=== PATIENT | male | born 1950 | race Caucasian/White ===

== ENCOUNTER 2017-10-12 09:15 | Outpatient (RCR) | payer MEDICARE, SELFPAY ==
[2017-09-14 01:21] VITALS: BP 108/60; BP 156/78
--- NOTE | 2017-10-14 11:30 | PCM.CR.ITP ---
Exercise - Initial Assessment - Stages of Change Stages of Change:: Action - Exercise Prescription Mode:: Treadmill, Rower, Airdyne, NuStep Angina with exercise?: No Target Heart Rate:: 108-116 - Hypertension Do any of the following apply?: Yes - Intervention Home Exercise/Activity Goal:: Moderate Exercise 30 min/day x 5 days/wk - Education Goals:: Warm-up, RPE JEREMIAS Scale, S/S, Safe Exercise, Self-Monitoring - Exercise Program Goals Exercise Program Goals: Aerobic Activity >30 min Exercise - 30-day Assessment - Stages of Change Stages of Change:: Action - Exercise Prescription Mode:: Treadmill, Airdyne, NuStep Frequency (x/week): 3 Duration:: 35 METs - Progression: 0.5-1 MET as tolerated: 3.1 Target Heart Rate:: 108-116 Max HR 113 - Intervention Home Exercise/Activity Goal:: Moderate Exercise 30 min/day x 5 days/wk - Education Goals:: Warm-up, RPE JEREMIAS Scale, S/S, Safe Exercise, Self-Monitoring - Exercise Program Goals Exercise Program Goals: Aerobic Activity >30 min Exercise - 60-Day Assessment - Visit Date of Eval: 09/11/17 - Stages of Change Stages of Change:: Action - Exercise Prescription Mode:: Treadmill, Airdyne, NuStep Frequency (x/week): 3 Duration:: 30 METs: 4.7 Target Heart Rate:: 124-131 Max HR 138 - Hypertension Medication Changes:: No - Intervention Home Exercise/Activity Goal:: Sitting Time <3 hrs/day - Education Goals:: Warm-up, RPE JEREMIAS Scale, S/S, Safe Exercise, Self-Monitoring - Exercise Program Goals Exercise Program Goals: Aerobic Activity >30 min, B/P <140/90 Exercise - 90-Day Assessment - Visit Date of Eval: 10/14/17 Session #:: 23 - Stages of Change Stages of Change:: Action - Exercise Prescription Mode:: Treadmill, Airdyne, NuStep Frequency (x/week): 3 Duration:: 30 METs: 4.7 Target Heart Rate:: 124-131 Max HR 138 - Hypertension Resting Blood Pressure:: 160/84 Peak Exercise Blood Pressure:: 160/84 Medication Changes:: No - Intervention Home Exercise/Activity Goal:: Sitting Time <3 hrs/day - Education Goals:: Warm-up, RPE JEREMIAS Scale, S/S, Safe Exercise, Self-Monitoring - Exercise Program Goals Exercise Program Goals: Aerobic Activity >30 min, B/P <140/90 Exercise - Final/Discharge - Hypertension Do any of the following apply?: Yes Nutrition - Initial Assessment - Program Goals Nutrition Program Goals: LDL <70. Total Cholesterol <200. HDL >45. Triglycerides <150. HgbA1C <7%. BMI <25 - Stages of Change Stages of Change:: Action - Lipids Total Cholesterol (mg/dL) Goal = less than 200 mg/dL: 140 - L HDL Cholesterol (mg/dL) Goal = less than 45 mg/dL: 32 - L LDL Cholesterol (mg/dL) Goal = less than 70 mg/dL: 87 - H Triglycerides (mg/dL) Goal = less than 150 mg/dL: 104 - L - Diabetes Diabetes:: Yes Hgb A1C: 10.0 - Weight Management Total Score:: 3 - Intervention Referral to dietitian:: Yes Referral to Diabetic Clinic:: Yes Will attend diet classes:: Yes - Education Gave educational materials for:: Signs & symptoms of hypoglycemia, Signs & symptoms of hyperglycemia, Relate diabetes to coronary artery disease, Healthy eating Nutrition - 30-Day Assessment - Program Goals Nutrition Program Goals: LDL <70. Total Cholesterol <200. HDL >45. Triglycerides <150. HgbA1C <7%. BMI <25 - Stages of Change Stages of Change:: Action - Lipids Has the patient seen the dietitian?: No - Diabetes Diabetes:: Yes Hgb A1C: 10.0 Random Blood Glucose:: 228 - 140228 - Intervention Referral to dietitian:: Yes Referral to Diabetic Clinic:: Yes Will attend diet classes:: Yes - Education Attended class for:: Signs & symptoms of hypoglycemia, Signs & symptoms of hyperglycemia, Relate diabetes to coronary artery disease, Healthy eating Nutrition - 60-Day Assessment - Program Goals Nutrition Program Goals: LDL <70. Total Cholesterol <200. HDL >45. Triglycerides <150. HgbA1C <7%. BMI <25 - Visit Date of Eval: 09/11/17 - Stages of Change Stages of Change:: Action - Lipids Has the patient seen the dietitian?: No - Diabetes Diabetes:: Yes Hgb A1C: 10.0 Random Blood Glucose:: 113 - 113-228 - Intervention Referral to dietitian:: Yes Referral to Diabetic Clinic:: Yes Will attend diet classes:: Yes - Education Attended class for:: Signs & symptoms of hypoglycemia, Signs & symptoms of hyperglycemia, Relate diabetes to coronary artery disease, Healthy eating Nutrition - 90-Day Assessment - Program Goals Nutrition Program Goals: LDL <70. Total Cholesterol <200. HDL >45. Triglycerides <150. HgbA1C <7%. BMI <25 - Visit Date of Eval: 10/14/17 - Stages of Change Stages of Change:: Action - Lipids Has the patient seen the dietitian?: No - Diabetes Diabetes:: Yes Hgb A1C: 10.0 Random Blood Glucose:: 113 - 113-228 - Weight Management Weight:: 94.801 kg - Intervention Referral to dietitian:: Yes Referral to Diabetic Clinic:: Yes Will attend diet classes:: Yes - Education Attended class for:: Signs & symptoms of hypoglycemia, Signs & symptoms of hyperglycemia, Relate diabetes to coronary artery disease, Healthy eating Nutrition - Final Assessment - Program Goals Nutrition Program Goals: LDL <70. Total Cholesterol <200. HDL >45. Triglycerides <150. HgbA1C <7%. BMI <25 - Diabetes Diabetes:: Yes Hgb A1C: 10.0 - Weight Management Total Score:: 3 - Intervention Referral to dietitian:: Yes Referral to Diabetic Clinic:: Yes Will attend diet classes:: Yes Tobacco - Initial Assessment - Program Goals Tobacco Program Goals: Complete smoking cessation. Attend education classes. Improve Knowledge Test score - Stage of Change Stages of Change:: Action - Learning Barriers Learning Barriers: Vision - wears glasses for vision correction Total Score:: 6 - Family Support Do you have family support?: Yes - Tobacco Use Tobacco Use: Chew - quit 4 years ago. How long ago did you quit using tobacco products?: Greater than or equal to 6 months ago Do you use smokeless tobacco?: No - not currently - Intervention Smoking Cessation Referral:: No Individual Education/Counseling:: No Education Schedule Given:: Yes - Education Gave educational material for:: 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 disease, Risk factors, Sexuality, Medical compliance, Cardiac A&P, Angina signs & symptoms Tobacco - 30-Day Assessment - Program Goals Tobacco Program Goals: Complete smoking cessation. Attend education classes. Improve Knowledge Test score - Stage of Change Stages of Change:: Action - Learning Barriers Learning Barriers: Participates in education - Family Support Do you have family support?: Yes - Tobacco Use Tobacco Use: Non-smoker Do you use smokeless tobacco?: No - not currently - Intervention Smoking Cessation Referral:: No Individual Education/Counseling:: No Education Schedule Given:: Yes - Education Attended class for:: 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 disease, Risk factors, Sexuality, Medical compliance, Cardiac A&P, Angina signs & symptoms Tobacco - 60-Day Assessment - Program Goals Tobacco Program Goals: Complete smoking cessation. Attend education classes. Improve Knowledge Test score - Stage of Change Stages of Change:: Action - Learning Barriers Learning Barriers: Participates in education - Family Support Do you have family support?: Yes - Tobacco Use Tobacco Use: Non-smoker Do you use smokeless tobacco?: No - not currently - Intervention Smoking Cessation Referral:: No Individual Education/Counseling:: No Education Schedule Given:: Yes - Education Attended class for:: 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 disease, Risk factors, Sexuality, Medical compliance, Cardiac A&P, Angina signs & symptoms Tobacco - 90-Day Assessment - Program Goals Tobacco Program Goals: Complete smoking cessation. Attend education classes. Improve Knowledge Test score - Stage of Change Stages of Change:: Action - Learning Barriers Learning Barriers: Participates in education - Family Support Do you have family support?: Yes - Tobacco Use Tobacco Use: Non-smoker Do you use smokeless tobacco?: No - not currently - Intervention Smoking Cessation Referral:: No Individual Education/Counseling:: No Education Schedule Given:: Yes - Education Attended class for:: 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 disease, Risk factors, Sexuality, Medical compliance, Cardiac A&P, Angina signs & symptoms Tobacco - Final Assessment - Program Goals Tobacco Program Goals: Complete smoking cessation. Attend education classes. Improve Knowledge Test score - Learning Barriers Cardiac Knowledge Test Score:: 6 - Family Support Do you have family support?: Yes - Tobacco Use Tobacco Use: Non-smoker Do you use smokeless tobacco?: No - not currently - Intervention Smoking Cessation Referral:: No Individual Education/Counseling:: No Education Schedule Given:: Yes Psychosocial - Initial Assess - Target Goals Target Goals: Assess presence or absence of depression. Using a valid screening tool, maximizes coping skills. Positive support system - Stages of Change Stages of Change:: Action - Psychosocial Test Tool Used:: HANDS Depression Questionnaire Self-reported stress:: none Tests Completed: SF - 36 survey completed, Mood Scale Test Self-Efficacy Score:: 5 - Intervention PS - Interventions: Yes Attend Stress Management Classes, Yes Uses Stress Management Skills, No Referral to Mental Health, No Referral to [facility] Case Management, No Referral to Physician - Patient/Program Goal Preventative Medication(s):: Aspirin, HEBER inhibitor, Clopidogrel, Beta yanna, Statin/lipid - Assistive Devices Assistive Devices:: None Fall Risk Assessed:: Yes Psychosocial - 30-Day Assess - Target Goals Target Goals: Assess presence or absence of depression. Using a valid screening tool, maximizes coping skills. Positive support system - Psychosocial Test Tool Used:: HANDS Depression Questionnaire Self-Efficacy Score:: 5 - Patient/Program Goal Preventative Medication(s):: Aspirin, HEBER inhibitor, Clopidogrel, Beta yanna, Statin/lipid - Assistive Devices Assistive Devices:: None Fall Risk Assessed:: Yes Psychosocial - 60-Day Assess - Target Goals Target Goals: Assess presence or absence of depression. Using a valid screening tool, maximizes coping skills. Positive support system - Stages of Change Stages of Change:: Action - Psychosocial Test Tool Used:: HANDS Depression Questionnaire Self-Efficacy Score:: 5 - Patient/Program Goal Preventative Medication(s):: Aspirin, HEBER inhibitor, Clopidogrel, Beta yanna, Statin/lipid - Assistive Devices Assistive Devices:: None Fall Risk Assessed:: Yes Psychosocial - 90-Day Assess - Target Goals Target Goals: Assess presence or absence of depression. Using a valid screening tool, maximizes coping skills. Positive support system - Stages of Change Stages of Change:: Action - Psychosocial Test Tool Used:: HANDS Depression Questionnaire Self-Efficacy Score:: 5 - Intervention PS - Interventions: Yes Attend Stress Management Classes, Yes Uses Stress Management Skills, No Referral to Mental Health, No Referral to [facility] Case Management, No Referral to Physician - Education Attended classes for:: Coping techniques, Signs & symptoms of depression, Stress management, Relaxation techniques - Patient/Program Goal Preventative Medication(s):: Aspirin, HEBER inhibitor, Clopidogrel, Beta yanna, Statin/lipid - Assistive Devices Assistive Devices:: None Fall Risk Assessed:: Yes Psychosocial - Final Assessmen - Target Goals Target Goals: Assess presence or absence of depression. Using a valid screening tool, maximizes coping skills. Positive support system - Psychosocial Test Tool Used:: HANDS Depression Questionnaire Tests Completed: SF - 36 survey completed, Mood Scale Test Self-Efficacy Score:: 5 - Patient/Program Goal Preventative Medication(s):: Aspirin, HEBER inhibitor, Clopidogrel, Beta yanna, Statin/lipid - Assistive Devices Assistive Devices:: None Fall Risk Assessed:: Yes Patient Health Questionnaire 90-Day Re-eval Assessment 1. Little interest or pleasure in doing things: Not at all 2. Feeling down, depressed, or hopeless: Not at all 3. Trouble falling or staying asleep, or sleeping too much: Not at all 4. Feeling tired or having little energy: Not at all 5. Poor appetite or overeating: Not at all 6. Feeling bad about yourself -- or that you are a failure or have let yourself or your family down: Not at all 7. Trouble concentrating on things, such as reading the newspaper or watching television: Not at all 8. Moving or speaking so slowly that other people could have noticed. Or the opposite - being so fidgety or restless that you have been moving around a lot more than usual: Not at all 9. Thoughts that you would be better off , or of hurting yourself in some way: Not at all Total Score: 0 Self-Efficacy 90-Day Re-eval Assessment We would like to know how confident you are in doing certain activities. Please select your confidence level for:: Select your confidence level for the following using the scale 1-10 where 1 is not at all confident and 10 is totally confident. Your score is the average of all 6 responses. Fatigue: How confident are you that you can keep the fatigue caused by your disease from interfering with the things you want to do? Select Number: 10 Physical Discomfort or Pain: How confident are you that you can keep the physical discomfort or pain of your disease from interfering with the things you want to do? Select Number: 10 Emotional Distress: How confident are you that you can keep the emotional distress caused by your disease from interfering with the things you want to do? Select Number: 9 Other Symptoms or Health Problems: How confident are you that you can keep other symptoms or health problems from interfering with the things you want to do? Select Number: 10 Different Tasks and Activities: How confident are you that you can do the different tasks and activities needed to manage your health condition so as to reduce your need to see a doctor? Select Number: 10 Medication: How confident are you that you can do things other than just taking medication to reduce how much your illness affects your everyday life? Select Number: 9 Total Score:: 9 Cardiac Rehabilitation Goals - Cardiac Rehab Goals Cardiac Rehabilitation Goals: 1. Maintain the individual as the primary focus of care. 2. To improve the patient's quality of life. 3. Identification of cardiac risk factors and provide cardiac risk factor management. 4. Enhance the psychosocial status of the patient. 5. Reconditioning enough to allow the patient to resume customary activities. 6. Control symptoms of cardiac disease - Scale Scale for measuring improvement of personal goals: Enter appropriate number in Comments. 2 = Unchanged. 3 = Slightly Better. 4 = Moderate Improvement. 5 = Met my Goal 90-Day Re-eval Assessment Personal Goals: 60-day Re-assessment: Improve energy level - goal met, Improve knowledge of cardiac disease - goal met, Improve muscle strength and endurance - goal met
[2017-10-14 11:32] VITALS: BP 160/84
== END 2017-10-14 23:59 ==
LOC: CR 09:15
PROVIDERS: Family Provider Family Medicine; PCP Family Medicine; Visit Provider Internal Medicine Cardiovascular Disease
DX: Z95.5 Presence of coronary angioplasty implant and graft (principal); I25.10 Atherosclerotic heart disease of native coronary artery without angina pectoris; I21.02 ST elevation (STEMI) myocardial infarction involving left anterior descending coronary artery; I10 Essential (primary) hypertension; E78.5 Hyperlipidemia, unspecified; E11.9 Type 2 diabetes mellitus without complications
CPT/HCPCS: 93798

== ENCOUNTER → 2017-11-05 13:58 | Outpatient (CLI) | payer MEDICARE, SELFPAY ==
--- NOTE | 2017-11-05 14:02 | US_ITS ---
STUDY: SCROTUM ULTRASOUND REASON FOR EXAM: Male, 67 years old. Bilateral testicular pain. TECHNIQUE: Ultrasound evaluation of the scrotum was performed with color Doppler and static trivedi-scale imaging. COMPARISON: Comparison is made with multiple prior examinations. The latest August 16, 2017. FINDINGS: RIGHT TESTICLE INTRATESTICULAR: There is a normal size of the right testicle. The right testicle measures 3.8 cm x 3.2 cm x 2.3 cm. There is a homogenous echotexture. There is normal arterial and normal venous vascularity. There is no demonstrated right testicular mass or cyst. EXTRATESTICULAR: The epididymis is normal in size. The epididymis head measures 1.4 cm. There is normal vascularity of the epididymis. There is no demonstrated epididymal cystic structure. There is a small hydrocele. There are prominent extratesticular veins consistent with a varicocele. There is no demonstrated extratesticular mass or cyst. LEFT TESTICLE INTRATESTICULAR: There is a normal size of the left testicle. The left testicle measures 4.3 cm x 2.9 cm x 1.7 cm. There is a homogenous echotexture. There is normal arterial and normal venous vascularity. There is no demonstrated left testicular mass or cyst. EXTRATESTICULAR: The epididymis is normal in size. The epididymis head measures 1.0 cm. There is normal vascularity of the epididymis. There is no demonstrated epididymal cystic structure. There is a moderate size hydrocele. There are prominent extratesticular veins consistent with a varicocele. There is no demonstrated extratesticular mass or cyst. US/Testicular with Arterial Flow IMPRESSION: Bilateral varicoceles. Bilateral hydroceles. Slightly worse on the left side. This is unchanged. Electronically Signed: Richmond Elizabeth MD at 15:24 EST Tel [phone], Service support ,
== END ==
PROVIDERS: Family Provider Family Medicine; PCP Family Medicine
DX: N50.82 Scrotal pain (principal)
CPT/HCPCS: 76870; 93976

== ENCOUNTER 2017-11-11 09:15 | Outpatient (RCR) | payer MEDICARE, SELFPAY ==
[2017-10-15 00:45] VITALS: BP 160/84
[2017-11-10 09:10] VITALS: BP 100/60; BP 150/66
--- NOTE | 2017-11-10 09:11 | CR.ITP_ITS ---
Exercise - Initial Assessment - Stages of Change Stages of Change:: Action - Exercise Prescription Mode:: Treadmill, Rower, Airdyne, NuStep Angina with exercise?: No Target Heart Rate:: 108-116 - Hypertension Do any of the following apply?: Yes - Intervention Home Exercise/Activity Goal:: Moderate Exercise 30 min/day x 5 days/wk - Education Goals:: Warm-up, RPE JEREMIAS Scale, S/S, Safe Exercise, Self-Monitoring - Exercise Program Goals Exercise Program Goals: Aerobic Activity >30 min Exercise - 30-day Assessment - Stages of Change Stages of Change:: Action - Exercise Prescription Mode:: Treadmill, Airdyne, NuStep Frequency (x/week): 3 Duration:: 35 METs - Progression: 0.5-1 MET as tolerated: 3.1 Target Heart Rate:: 108-116 Max HR 113 - Intervention Home Exercise/Activity Goal:: Moderate Exercise 30 min/day x 5 days/wk - Education Goals:: Warm-up, RPE JEREMIAS Scale, S/S, Safe Exercise, Self-Monitoring - Exercise Program Goals Exercise Program Goals: Aerobic Activity >30 min Exercise - 60-Day Assessment - Visit Date of Eval: 10/14/17 - Stages of Change Stages of Change:: Action - Exercise Prescription Mode:: Treadmill, Airdyne, NuStep Frequency (x/week): 3 Duration:: 30 METs: 4.7 Target Heart Rate:: 124-131 Max HR 138 - Hypertension Medication Changes:: No - Intervention Home Exercise/Activity Goal:: Sitting Time <3 hrs/day - Education Goals:: Warm-up, RPE JEREMIAS Scale, S/S, Safe Exercise, Self-Monitoring - Exercise Program Goals Exercise Program Goals: Aerobic Activity >30 min, B/P <140/90 Exercise - 90-Day Assessment - Visit Date of Eval: 10/14/17 - Stages of Change Stages of Change:: Action - Exercise Prescription Mode:: Treadmill, Airdyne, NuStep Frequency (x/week): 3 Duration:: 30 METs: 4.7 Target Heart Rate:: 124-131 Max HR 138 - Hypertension Medication Changes:: No - Intervention Home Exercise/Activity Goal:: Sitting Time <3 hrs/day - Education Goals:: Warm-up, RPE JEREMIAS Scale, S/S, Safe Exercise, Self-Monitoring - Exercise Program Goals Exercise Program Goals: Aerobic Activity >30 min, B/P <140/90 Exercise - Final/Discharge - Visit Date of Eval: 11/10/17 Session #:: 32 - 32-36 - Stages of Change Stages of Change:: Action - Exercise Prescription Mode:: Treadmill, Airdyne, NuStep Frequency (x/week): 3 Duration:: 30 METs: 4.7 Target Heart Rate:: 124-131 - Hypertension Do any of the following apply?: Yes Resting Blood Pressure:: 100/60 Peak Exercise Blood Pressure:: 150/66 - Intervention Home Exercise/Activity Goal:: Moderate Exercise 30 min/day x 5 days/wk - Education Goal Progress: Goal Met - Exercise Program Goals Exercise Program Goals: Aerobic Activity >30 min Nutrition - Initial Assessment - Program Goals Nutrition Program Goals: LDL <70. Total Cholesterol <200. HDL >45. Triglycerides <150. HgbA1C <7%. BMI <25 - Stages of Change Stages of Change:: Action - Lipids Total Cholesterol (mg/dL) Goal = less than 200 mg/dL: 140 - L HDL Cholesterol (mg/dL) Goal = less than 45 mg/dL: 32 - L LDL Cholesterol (mg/dL) Goal = less than 70 mg/dL: 87 - H Triglycerides (mg/dL) Goal = less than 150 mg/dL: 104 - L - Diabetes Diabetes:: Yes Hgb A1C: 10.0 - Weight Management Total Score:: 3 - Intervention Referral to dietitian:: Yes Referral to Diabetic Clinic:: Yes Will attend diet classes:: Yes - Education Gave educational materials for:: Signs & symptoms of hypoglycemia, Signs & symptoms of hyperglycemia, Relate diabetes to coronary artery disease, Healthy eating Nutrition - 30-Day Assessment - Program Goals Nutrition Program Goals: LDL <70. Total Cholesterol <200. HDL >45. Triglycerides <150. HgbA1C <7%. BMI <25 - Stages of Change Stages of Change:: Action - Lipids Has the patient seen the dietitian?: No - Diabetes Diabetes:: Yes Hgb A1C: 10.0 Random Blood Glucose:: 228 - 140-228 - Intervention Referral to dietitian:: Yes Referral to Diabetic Clinic:: Yes Will attend diet classes:: Yes - Education Attended class for:: Signs & symptoms of hypoglycemia, Signs & symptoms of hyperglycemia, Relate diabetes to coronary artery disease, Healthy eating Nutrition - 60-Day Assessment - Program Goals Nutrition Program Goals: LDL <70. Total Cholesterol <200. HDL >45. Triglycerides <150. HgbA1C <7%. BMI <25 - Visit Date of Eval: 10/14/17 - Stages of Change Stages of Change:: Action - Lipids Has the patient seen the dietitian?: No - Diabetes Diabetes:: Yes Hgb A1C: 10.0 Random Blood Glucose:: 113 - 113-228 - Intervention Referral to dietitian:: Yes Referral to Diabetic Clinic:: Yes Will attend diet classes:: Yes - Education Attended class for:: Signs & symptoms of hypoglycemia, Signs & symptoms of hyperglycemia, Relate diabetes to coronary artery disease, Healthy eating Nutrition - 90-Day Assessment - Program Goals Nutrition Program Goals: LDL <70. Total Cholesterol <200. HDL >45. Triglycerides <150. HgbA1C <7%. BMI <25 - Visit Date of Eval: 10/14/17 - Stages of Change Stages of Change:: Action - Lipids Has the patient seen the dietitian?: No - Diabetes Diabetes:: Yes Hgb A1C: 10.0 Random Blood Glucose:: 113 113228 - Intervention Referral to dietitian:: Yes Referral to Diabetic Clinic:: Yes Will attend diet classes:: Yes - Education Attended class for:: Signs & symptoms of hypoglycemia, Signs & symptoms of hyperglycemia, Relate diabetes to coronary artery disease, Healthy eating Nutrition - Final Assessment - Program Goals Nutrition Program Goals: LDL <70. Total Cholesterol <200. HDL >45. Triglycerides <150. HgbA1C <7%. BMI <25 - Visit Date of Eval: 11/10/17 - Stages of Change Stages of Change:: Action - Diabetes Diabetes:: Yes Hgb A1C: 10.0 - Weight Management Height: 5 ft 8 in Weight:: 95.788 kg Total Score:: 3 - Intervention Referral to dietitian:: Yes Referral to Diabetic Clinic:: Yes Will attend diet classes:: Yes - Education Education Goal Reached?: Yes Tobacco - Initial Assessment - Program Goals Tobacco Program Goals: Complete smoking cessation. Attend education classes. Improve Knowledge Test score - Stage of Change Stages of Change:: Action - Learning Barriers Learning Barriers: Vision - wears glasses for vision correction Total Score:: 6 - Family Support Do you have family support?: Yes - Tobacco Use Tobacco Use: Chew - quit 4 years ago. How long ago did you quit using tobacco products?: Greater than or equal to 6 months ago Do you use smokeless tobacco?: No - not currently - Intervention Smoking Cessation Referral:: No Individual Education/Counseling:: No Education Schedule Given:: Yes - Education Gave educational material for:: 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 disease, Risk factors, Sexuality , Medical compliance, Cardiac A&P, Angina signs & symptoms Tobacco - 30-Day Assessment - Program Goals Tobacco Program Goals: Complete smoking cessation. Attend education classes. Improve Knowledge Test score - Stage of Change Stages of Change:: Action - Learning Barriers Learning Barriers: Participates in education - Family Support Do you have family support?: Yes - Tobacco Use Tobacco Use: Non-smoker Do you use smokeless tobacco?: No - not currently - Intervention Smoking Cessation Referral:: No Individual Education/Counseling:: No Education Schedule Given:: Yes - Education Attended class for:: 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 disease, Risk factors, Sexuality, Medical compliance, Cardiac A&P, Angina signs & symptoms Tobacco - 60-Day Assessment - Program Goals Tobacco Program Goals: Complete smoking cessation. Attend education classes. Improve Knowledge Test score - Stage of Change Stages of Change:: Action - Learning Barriers Learning Barriers: Participates in education - Family Support Do you have family support?: Yes - Tobacco Use Tobacco Use: Non-smoker Do you use smokeless tobacco?: No - not currently - Intervention Smoking Cessation Referral:: No Individual Education/Counseling:: No Education Schedule Given:: Yes - Education Attended class for:: 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 disease, Risk factors, Sexuality, Medical compliance, Cardiac A&P, Angina signs & symptoms Tobacco - 90-Day Assessment - Program Goals Tobacco Program Goals: Complete smoking cessation. Attend education classes. Improve Knowledge Test score - Stage of Change Stages of Change:: Action - Learning Barriers Learning Barriers: Participates in education - Family Support Do you have family support?: Yes - Tobacco Use Tobacco Use: Non-smoker Do you use smokeless tobacco?: No - not currently - Intervention Smoking Cessation Referral:: No Individual Education/Counseling:: No Education Schedule Given:: Yes - Education Attended class for:: 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 disease, Risk factors, Sexuality, Medical compliance, Cardiac A&P, Angina signs & symptoms Tobacco - Final Assessment - Program Goals Tobacco Program Goals: Complete smoking cessation. Attend education classes. Improve Knowledge Test score - Learning Barriers Cardiac Knowledge Test Score:: 6 - Family Support Do you have family support?: Yes - Tobacco Use Tobacco Use: Non-smoker Do you use smokeless tobacco?: No - not currently - Intervention Smoking Cessation Referral:: No Individual Education/Counseling:: No Education Schedule Given:: Yes - Education Education Goal Reached?: Yes Psychosocial - Initial Assess - Target Goals Target Goals: Assess presence or absence of depression. Using a valid screening tool, maximizes coping skills. Positive support system - Stages of Change Stages of Change:: Action - Psychosocial Test Tool Used:: HANDS Depression Questionnaire Self-reported stress:: none Tests Completed: SF - 36 survey completed, Mood Scale Test Self-Efficacy Score:: 5 - Education Gave educational materials for:: Coping techniques, Signs & symptoms of depression, Stress management, Relaxation techniques - Patient/Program Goal Preventative Medication(s):: Aspirin, HEBER inhibitor, Clopidogrel, Beta yanna, Statin/lipid - Assistive Devices Assistive Devices:: None Fall Risk Assessed:: Yes Psychosocial - 30-Day Assess - Target Goals Target Goals: Assess presence or absence of depression. Using a valid screening tool, maximizes coping skills. Positive support system - Psychosocial Test Tool Used:: HANDS Depression Questionnaire Self-Efficacy Score:: 5 - Patient/Program Goal Preventative Medication(s):: Aspirin, HEBER inhibitor, Clopidogrel, Beta yanna, Statin/lipid - Assistive Devices Assistive Devices:: None Fall Risk Assessed:: Yes Psychosocial - 60-Day Assess - Target Goals Target Goals: Assess presence or absence of depression. Using a valid screening tool, maximizes coping skills. Positive support system - Stages of Change Stages of Change:: Action - Psychosocial Test Tool Used:: HANDS Depression Questionnaire Self-Efficacy Score:: 5 - Education Attended classes for:: Coping techniques, Signs & symptoms of depression, Stress management, Relaxation techniques - Patient/Program Goal Preventative Medication(s):: Aspirin, HEBER inhibitor, Clopidogrel, Beta yanna, Statin/lipid - Assistive Devices Assistive Devices:: None Fall Risk Assessed:: Yes Psychosocial - 90-Day Assess - Target Goals Target Goals: Assess presence or absence of depression. Using a valid screening tool, maximizes coping skills. Positive support system - Stages of Change Stages of Change:: Action - Psychosocial Test Tool Used:: HANDS Depression Questionnaire Self-Efficacy Score:: 5 - Education Attended classes for:: Coping techniques, Signs & symptoms of depression, Stress management, Relaxation techniques - Patient/Program Goal Preventative Medication(s):: Aspirin, HEBER inhibitor, Clopidogrel, Beta yanna, Statin/lipid - Assistive Devices Assistive Devices:: None Fall Risk Assessed:: Yes Psychosocial - Final Assessmen - Target Goals Target Goals: Assess presence or absence of depression. Using a valid screening tool, maximizes coping skills. Positive support system - Stages of Change Stages of Change:: Action - Psychosocial Test Tool Used:: HANDS Depression Questionnaire Tests Completed: SF - 36 survey completed, Mood Scale Test Self-Efficacy Score:: 5 - Intervention PS - Interventions: Yes Attend Stress Management Classes, Yes Uses Stress Management Skills, No Referral to Mental Health, No Referral to [facility] Case Management, No Referral to Physician - Education Education Goal Reached?: Yes - Patient/Program Goal Preventative Medication(s):: Aspirin, HEBER inhibitor, Clopidogrel, Beta yanna, Statin/lipid - Assistive Devices Assistive Devices:: None Fall Risk Assessed:: Yes Patient Health Questionnaire Discharge Assessment 1. Little interest or pleasure in doing things: Not at all 2. Feeling down, depressed, or hopeless: Not at all 3. Trouble falling or staying asleep, or sleeping too much: Not at all 4. Feeling tired or having little energy: Not at all 5. Poor appetite or overeating: Not at all 6. Feeling bad about yourself -- or that you are a failure or have let yourself or your family down: Not at all 7. Trouble concentrating on things, such as reading the newspaper or watching television: Not at all 8. Moving or speaking so slowly that other people could have noticed. Or the opposite - being so fidgety or restless that you have been moving around a lot more than usual: Not at all 9. Thoughts that you would be better off , or of hurting yourself in some way: Not at all Total Score: 0 Knowledge Test - Check your knowledge Discharge The #1 cause of in the [place] each year is:: Heart disease Which of the following is a common treatment for heart disease?: All of the above The arteries that feed the heart are called:: Coronary arteries HDL cholesterol is known as the good cholesterol.: True What disease increases your risk for heart disease?: Diabetes What food product raises blood cholesterol level the most?: Cholesterol The bad cholesterol in the blood is called:: LDL Hypertension is another word for:: High blood pressure A blood pressure reading of 148/88 is considered normal.: False Exercise will only benefit your health when your heart rate reaches a target level.: False Total Score:: 9 Self-Efficacy Discharge Assessment We would like to know how confident you are in doing certain activities. Please select your confidence level for:: Select your confidence level for the following using the scale 1-10 where 1 is not at all confident and 10 is totally confident. Your score is the average of all 6 responses. Fatigue: How confident are you that you can keep the fatigue caused by your disease from interfering with the things you want to do? Select Number: 10 Physical Discomfort or Pain: How confident are you that you can keep the physical discomfort or pain of your disease from interfering with the things you want to do? Select Number: 10 Emotional Distress: How confident are you that you can keep the emotional distress caused by your disease from interfering with the things you want to do? Select Number: 9 Other Symptoms or Health Problems: How confident are you that you can keep other symptoms or health problems from interfering with the things you want to do? Select Number: 10 Different Tasks and Activities: How confident are you that you can do the different tasks and activities needed to manage your health condition so as to reduce your need to see a doctor? Select Number: 10 Medication: How confident are you that you can do things other than just taking medication to reduce how much your illness affects your everyday life? Select Number: 9 Total Score:: 9 Nutrition Survey - Nutrition Survey Instructions Scoring Instructions: Scoring is as follows: Yes = 1 points. No = 0 point. Patient score that is >/=12 is considered to be at potential nutritional risk and could benefit from a referral to a registered dietitian. - Nutrition Survey Discharge Have you lost >10 lbs over the past 2 months without trying?: No Are you following a special diet at home for diabetes, low fat, or low salt?: No Are you interested in meeting with a dietitian for help understanding your diet? : No Do you eat less than 3 meals a day?: No Do you eat fatty meats (brasher, sausage, ribs, etc), fried foods, desserts, large amounts of salad dressings, margarine, butter, or cheese most days?: Yes Do you have food allergies? [Enter types in comment field]: No Do you eat in restaurants more than 3 times a week?: Yes Do you season food with salt, seasoning salt, or garlic salt?: No Do you used canned, boxed, frozen meals, or soups, seasoning packets?: No Total Score:: 2 Cardiac Rehabilitation Goals - Cardiac Rehab Goals Cardiac Rehabilitation Goals: 1. Maintain the individual as the primary focus of care. 2. To improve the patient's quality of life. 3. Identification of cardiac risk factors and provide cardiac risk factor management. 4. Enhance the psychosocial status of the patient. 5. Reconditioning enough to allow the patient to resume customary activities. 6. Control symptoms of cardiac disease - Scale Scale for measuring improvement of personal goals: Enter appropriate number in Comments. 2 = Unchanged. 3 = Slightly Better. 4 = Moderate Improvement. 5 = Met my Goal Discharge Assessment Personal Goals: Discharge Reassessment: Improve management of stress and emotions, Improve energy level, Participate in home exercise program, Improve knowledge of cardiac disease, Improve muscle strength and endurance, Improve diet and eating habits (eat healthier), Control risk factors (learn risk factor modification)
== END 2017-11-11 23:59 ==
LOC: CR 09:15
PROVIDERS: Family Provider Family Medicine; PCP Family Medicine; Visit Provider Internal Medicine Cardiovascular Disease
DX: Z95.5 Presence of coronary angioplasty implant and graft (principal); I25.10 Atherosclerotic heart disease of native coronary artery without angina pectoris; I21.02 ST elevation (STEMI) myocardial infarction involving left anterior descending coronary artery; I10 Essential (primary) hypertension; E78.5 Hyperlipidemia, unspecified; E11.9 Type 2 diabetes mellitus without complications
CPT/HCPCS: 93798

== ENCOUNTER 2017-11-18 09:15 | Outpatient (RCR) | payer MEDICARE, SELFPAY ==
[2017-11-12 00:37] VITALS: BP 100/60; BP 150/66
== END 2017-11-25 08:38 | disposition home or self-care (01) ==
LOC: CR 09:15
PROVIDERS: Family Provider Family Medicine; PCP Family Medicine; Visit Provider Internal Medicine Cardiovascular Disease
DX: Z95.5 Presence of coronary angioplasty implant and graft (principal); I25.10 Atherosclerotic heart disease of native coronary artery without angina pectoris; I21.02 ST elevation (STEMI) myocardial infarction involving left anterior descending coronary artery; I10 Essential (primary) hypertension; E78.5 Hyperlipidemia, unspecified; E11.9 Type 2 diabetes mellitus without complications
CPT/HCPCS: 93798

== ENCOUNTER → 2018-03-09 07:27 | Outpatient (CLI) | payer MEDICARE, SELFPAY ==
[2018-03-09 08:47] LABS: AST(SGOT) 16 U/L (15-37); Alanine Aminotransfer ALT/SGPT 34 U/L (16-61); Albumin, Serum 3.6 g/dL (3.2-5.0); Alkaline Phosphatase 60 U/L (45-117); Bilirubin, Direct 0.08 mg/dL (0.00-0.30); Cholesterol 202 mg/dL (200); Globulin 4.1 g/dL (2.2-4.2); High Density Lipoprotein 37 mg/dL; Protein, Total 7.7 g/dL (6.4-8.2); Triglycerides 164 mg/dL; Very Low Density Lipoprotein 33 mg/dL (5-40)
== END ==
PROVIDERS: Family Provider Family Medicine; PCP Family Medicine; Visit Provider Nurse Practitioner Family
DX: E78.5 Hyperlipidemia, unspecified (principal)
CPT/HCPCS: 36415; 80061; 80076

== ENCOUNTER → 2018-05-06 06:34 | Outpatient (CLI) | payer MEDICARE, SELFPAY ==
[2018-05-06 07:37] LABS: AST(SGOT) 19 U/L (15-37); Alanine Aminotransfer ALT/SGPT 35 U/L (16-61); Albumin, Serum 3.5 g/dL (3.2-5.0); Alkaline Phosphatase 53 U/L (45-117); Bilirubin, Direct 0.13 mg/dL (0.00-0.30); Cholesterol 190 mg/dL (200); High Density Lipoprotein 39 mg/dL; Protein, Total 7.5 g/dL (6.4-8.2); Triglycerides 116 mg/dL; Very Low Density Lipoprotein 23 mg/dL (5-40)
== END ==
PROVIDERS: Family Provider Family Medicine; PCP Family Medicine; Visit Provider Nurse Practitioner Family
DX: E78.5 Hyperlipidemia, unspecified (principal); I25.10 Atherosclerotic heart disease of native coronary artery without angina pectoris; I10 Essential (primary) hypertension; E11.9 Type 2 diabetes mellitus without complications
CPT/HCPCS: 36415; 80061; 80076

== ENCOUNTER → 2018-06-30 09:29 | Outpatient (CLI) | payer MEDICARE, SELFPAY ==
[2018-06-30 12:09] LABS: Absolute Lymphocyte Count 1.66 X10^3/ul (0.83-4.51); Absolute Neutrophil Count 3.8 X10^3/uL (2.0-7.7); Basophil# 0.02 X10^3/uL; Basophil% 0.3 % (0-1); Eosinophil# 0.08 X10^3/uL; Eosinophils% 1.3 % (0-5); Hematocrit 43.9 % (40-54); Hemoglobin 14.5 g/dl (13.0-16.5); Lymphocyte # 1.66 X10^3/ul (4.0); Lymphocyte % 26.3 % (19-41); Mean Corpuscular Hgb 29.6 pg (27.0-32.0); Mean Corpuscular Volume 89.6 fL (80-94); Mean Platelet Vol. 10.5 fl (6.2-12.0); Monocyte# 0.75 X10^3/uL; Monocyte% 11.9 % (0-10); Neutrophil # 3.79 X10^3/uL (2.7-7.7); Neutrophil % 59.9 % (47-70); Platelet Count 254 K/mm3 (150-450); RBC Distribution Width CV 12.7 % (11.6-14.6); RBC Distribution Width SD 41.5 fl (35.1-43.9); White Blood Count 6.3 K/mm3 (4.4-11.0)
[2018-06-30 12:14] LABS: POSITIVE COUNT NO; POSITIVE DIFFERENTIAL NO; POSITIVE MORPHOLOGY NO
[2018-06-30 12:18] LABS: ALB/GLOB Ratio 0.8 RATIO (0.9-2.4); AST(SGOT) 15 U/L (15-37); Alanine Aminotransfer ALT/SGPT 40 U/L (16-61); Albumin, Serum 3.4 g/dL (3.2-5.0); Alkaline Phosphatase 62 U/L (45-117); Anion Gap 10 (5-15); BUN 19 mg/dL (7-18); BUN/Creat Ratio 20.8 RATIO (10-20); Calcium,Total 9.1 mg/dL (8.5-10.1); Chloride 101 mmol/L (98-107); Creatinine, Serum 0.91 mg/dL (0.70-1.30); EST Glomerular Filtration Rate 88 mL/min (>60); Est Glom Filt Rate - Afr Amer 107 mL/min (>60); Glucose 223 mg/dL (74-106); Potassium 4.2 mmol/L (3.5-5.1); Protein, Total 7.4 g/dL (6.4-8.2); Sodium Level 137 mmol/L (136-145)
== END ==
PROVIDERS: Family Provider Family Medicine; PCP Family Medicine; Visit Provider Family Medicine
DX: E11.9 Type 2 diabetes mellitus without complications (principal); R53.83 Other fatigue
CPT/HCPCS: 36415; 80053; 85025

== ENCOUNTER 2018-12-08 18:16 | Inpatient (IN) | payer MEDICARE, SELFPAY ==
[2018-12-08 18:16] VITALS: BP 166/82; PULSE 129; RESP 20; TEMP 38.3; O2SAT 95; BMI 33.0; BMI 34.8
[2018-12-08 18:44] VITALS: BP 166/82; PULSE 129; RESP 20; TEMP 38.3; O2SAT 95; BMI 34.8
--- NOTE | 2018-12-08 18:44 | RAD_ITS ---
STUDY: X-RAY CHEST REASON FOR EXAM: Male, 68 years old. Cough. TECHNIQUE: Frontal and lateral views of the chest. COMPARISON: 07/11/2017. FINDINGS: The lungs are clear and expanded. There is no demonstrated pleural abnormality. Normal size heart. Normal mediastinum and calin. Normal visualized pulmonary arteries. Normal visualized aortic arch and descending thoracic aorta. There are diffuse degenerative changes of the visualized thoracic spine. Normal visualized ribs, clavicles, and shoulders. There is no demonstrated abnormality of the visualized soft tissue structures of the upper abdomen. RAD/Chest PA and Lateral IMPRESSION: No acute chest disease. Electronically Signed: Austen Tubbs MD at 21:19 EDT , Service support ,
--- NOTE | 2018-12-08 18:46 | ED.VISSUMM ---
- ER Visit Summary Date of Service: 12/08/18 Chief Complaint: Fever and chills History of Present Illness: The patient is a 68 M and prior [place]. Patient underwent a cystoscopy and prostate biopsy on Thursday by a urologist in [facility]. States he was doing well. Today developed fever and chills. He denies specifically any dysuria. He has had a cough for 8 weeks he said that is no worse. He denies any shortness of breath. No abdominal pain. Denies vomiting or diarrhea. Physical Examination: Older male in no acute distress. Initial blood pressure 166/87. Temperature 100.9. He does not look septic or toxic. He is in no distress. H EENT exam unremarkable. Moist weeks membranes. Neck nontender no lymphadenopathy. No meningismus. Lungs clear to auscultation bilaterally. Heart tachycardic no murmur. Abdomen soft and nontender. Extremities moves all 4. Normal motor strength. Calves nontender. Back nontender. Skin unremarkable. Neurologically is awake alert. Test Results: CBC White count 13. Hemoglobin 14. No bands. Chemistries unremarkable normal creatinine and gap. UA normal. Blood and urine culture sent. Lactic acid 1.1. Chest x-ray shows no acute abnormality read by myself and the radiologist. Emergency Department Course and Treatment: Patient with fever status post prostate biopsy. I do not treated with IV fluids. He had Tylenol prior to arrival. Clinically the patient has a prostatitis status post prostate biopsy. He is started on IV Rocephin. He has been given a liter of normal saline. Treatment Plan: I spoke to our hospital so be admitted. I have his urologist on patient has not talked to them as of yet. Disposition: Admission Impression: Fever Status post prostate biopsy Acute prostatitis Sepsis This note was generated with [employer] dictation software. It may contain incorrect words, spelling, and punctuation that were not noted in review of the chart prior to signing ED Disposition - Plan for ED Patient: Referrals: Maya Pradhan DO [Primary Care Provider] -
--- NOTE | 2018-12-08 18:50 | ED.DCSUM_ITS ---
- ER Visit Summary Date of Service: 12/08/18 Chief Complaint: Fever and chills History of Present Illness: The patient is a 68 M and prior [place]. Patient underwent a cystoscopy and prostate biopsy on Thursday by a urologist in [facility]. States he was doing well. Today developed fever and chills. He denies specifically any dysuria. He has had a cough for 8 weeks he said that is no worse. He denies any shortness of breath. No abdominal pain. Denies vomiting or diarrhea. Physical Examination: Older male in no acute distress. Initial blood pressure 166/87. Temperature 100.9. He does not look septic or toxic. He is in no distress. H EENT exam unremarkable. Moist weeks membranes. Neck nontender no lymphadenopathy. No meningismus. Lungs clear to auscultation bilaterally. Heart tachycardic no murmur. Abdomen soft and nontender. Extremities moves all 4. Normal motor strength. Calves nontender. Back nontender. Skin unremarkable. Neurologically is awake alert. Test Results: CBC White count 13. Hemoglobin 14. No bands. Chemistries unr emarkable normal creatinine and gap. UA normal. Blood and urine culture sent. Lactic acid 1.1. Chest x-ray shows no acute abnormality read by myself and the radiologist. Emergency Department Course and Treatment: Patient with fever status post prostate biopsy. I do not treated with IV fluids. He had Tylenol prior to arrival. Clinically the patient has a prostatitis status post prostate biopsy. He is started on IV Rocephin. He has been given a liter of normal saline. Treatment Plan: I spoke to our hospital so be admitted. I have his urologist on patient has not talked to them as of yet. Disposition: Admission Impression: Fever Status post prostate biopsy Acute prostatitis Sepsis This note was generated with [employer] dictation software. It may contain incorrect words, spelling, and punctuation that were not noted in review of the chart prior to signing ED Disposition - Plan for ED Patient: Referrals: Maya Pradhan DO [Primary Care Provider] -
[2018-12-08 19:10] LABS: Bacteria 0 SEEN /hpf (None Seen); Mucous, Urine 0 SEEN /hpf (<or=2+); Squamous Epithelial Cells - UA 0 SEEN /hpf (0-5)
[2018-12-08 19:12] VITALS: BP 152/125; PULSE 122; RESP 31; TEMP 38.4; O2SAT 93
[2018-12-08 19:13] LABS: Color, Urine Yellow (Yellow); Glucose, Dipstick Normal (Normal); Ketone-Dipstick 5 mg/dl (Negative); Leukocyte Esterase-Dipstick 25 /ul (Negative); Nitrite-Dipstick Negative (Negative); Occult Blood-Urine 25 /ul (Negative); Protein-Dipstick 15 mg/dl (Negative); Urine Bilirubin Dipstick Negative (Negative); Urine Clarity Clear (Clear); Urine Urobilinogen Normal (Normal); Urine pH 6.5 (5.0 - 8.0)
[2018-12-08 19:14] LABS: Anion Gap 6 (5-15); BUN 18 mg/dL (7-18); BUN/Creat Ratio 20.9 RATIO (10-20); Calcium,Total 8.9 mg/dL (8.5-10.1); Chloride 103 mmol/L (98-107); Creatinine, Serum 0.86 mg/dL (0.70-1.30); EST Glomerular Filtration Rate 94 mL/min (>60); Est Glom Filt Rate - Afr Amer 114 mL/min (>60); Estimated Creatinine Clearance 80.64 ml/min; Glucose 132 mg/dL (74-106); Potassium 3.7 mmol/L (3.5-5.1); Sodium Level 137 mmol/L (136-145)
[2018-12-08] MEDS: 0.9% Normal Saline 1,000 ML 1000 ML IV (19:15)
[2018-12-08 19:19] LABS: Absolute Lymphocyte Count 0.88 X10^3/ul (0.83-4.51); Absolute Neutrophil Count 10.9 X10^3/uL (2.0-7.7); Basophil# 0.02 X10^3/uL; Basophil% 0.2 % (0-1); Eosinophil# 0.02 X10^3/uL; Eosinophils% 0.2 % (0-5); Hematocrit 43.4 % (40-54); Hemoglobin 14.7 g/dl (13.0-16.5); Lactic Acid 1.1 mmol/L (0.4-2.0); Lymphocyte # 0.88 X10^3/ul (4.0); Lymphocyte % 6.8 % (19-41); Mean Corp Hgb Conc 33.9 g/gl (32-36); Mean Corpuscular Volume 88.6 fL (80-94); Mean Platelet Vol. 9.8 fl (6.2-12.0); Monocyte# 1.24 X10^3/uL; Monocyte% 9.5 % (0-10); Neutrophil # 10.85 X10^3/uL (2.7-7.7); Neutrophil % 83.1 % (47-70); Platelet Count 202 K/mm3 (150-450); RBC Distribution Width SD 41.7 fl (35.1-43.9)
[2018-12-08 19:19] LABS: Red Blood Cells-Urine 0-5 SEEN /hpf (0-5); White Blood Cells 0-5 SEEN /hpf (0-5)
[2018-12-08 19:21] LABS: POSITIVE COUNT NO; POSITIVE DIFFERENTIAL NO; POSITIVE MORPHOLOGY NO
--- NOTE | 2018-12-08 19:21 | ED.RN ---
spoke with regarding sepsis alert. md aware of pts vitals and current order set that everything except broad spectrum abx are ordered at this time. will continue to monitor
[2018-12-08 20:00] VITALS: BP 130/87; PULSE 120; RESP 18; TEMP 38.8; O2SAT 96
[2018-12-08] MEDS: Acetaminophen 500 MG Tablet 1000 MG PO (20:27)
[2018-12-08 21:33] VITALS: BP 109/66; PULSE 122; RESP 18; TEMP 38.6; O2SAT 92
[2018-12-08 21:36] VITALS: BMI 33.8
[2018-12-08 21:49] VITALS: BMI 33.8
--- NOTE | 2018-12-08 22:19 | PCM.HP.STD ---
Problem List (1) Fever and chills Status: Acute (2) Generalized weakness Status: Acute History of Present Illness Date of Admission: 12/08/18 Chief Complaint: Fever and chills, generalized weakness The patient is a 68 year old M was seen in the emergency room today at [facility] with a chief complaint of sudden onset of chills and fever starting this afternoon along with generalized weakness. Patient denies any cough, sputum production, or hemoptysis. Patient denies any dysuria. Patient states he underwent a prostate biopsy on Thursday of this week in [facility] due to a finding of a nodule on his prostate. Before the biopsy was carried out, patient took an oral antibiotic. Patient states today his temperature was 101.8 this afternoon before he came to the emergency room. Patient states he took Tylenol at home. Workup in the emergency room included labs which were remarkable for an increased white blood cell count at 13, patient's urinalysis was unremarkable, patient's chemistry profile was remarkable for a glucose of 132. Chest x-ray was obtained and this did not show any acute process, patient's high temperature in the emergency room was 101.8. On examination, patient had visible chills. He was given IV fluids in the emergency room, he was started on Rocephin IV, patient met criteria for sepsis and was admitted to [place] [id number] for acute sepsis secondary to gram-negative bacteria. Past Medical History Past Medical History (Chronic Problems): Chronic Problems (Last Updated 05/10/18 @ 11:12 by Ro Aquino) Stented coronary artery (Chronic 07/11/17) 90% occlusion, thrombectomy post anterior STEMI:ALEXANDRO to LAD 3.0 X [address] 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 [facility] History of ST elevation myocardial infarction (STEMI) (Chronic 07/11/17) Anterior Hypertension (Chronic) Anxiety (Chronic) Diabetes mellitus, type 2 (Chronic) Hyperlipidemia (Chronic) Restless legs (Chronic) 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.9) (Chronic) IBS (irritable bowel syndrome) (Chronic) Asthma (Chronic) Medical History: Medical History (Last Updated 05/10/18 @ 11:12 by Ro Aquino) Atherosclerotic heart disease of [place] coronary artery without angina pectoris (Chronic) Onset Date: 07/11/17 I25.10 90% occlusion, thrombectomy post anterior STEMI:ALEXANDRO to LAD 3.0 X [address] [facility] History of ST elevation myocardial infarction (STEMI) (Chronic) Onset Date: 07/11/17 I25.2 Anterior Hypertension (Chronic) I10 Diabetes mellitus, type 2 (Chronic) E11.9 Hyperlipidemia (Chronic) E78.[address] elevation myocardial infarction (STEMI) involving left anterior descending coronary artery (Resolved) I21.02 Atherosclerosis of [place] coronary artery of [place] heart without angina pectoris (Resolved) I25.10 PCI/ALEXANDRO to mid LAD 06/2017; Allergies Penicillins Allergy (Severe, Verified 05/10/18 11:09) Shortness of breath quinine sulfate [From Quine] Allergy (Severe, Verified 12/08/18 22:03) passed out benzocaine [From Cetacaine] Allergy (Verified 05/10/18 11:09) Swelling butamben [From Cetacaine] Allergy (Verified 05/10/18 11:09) Swelling ciprofloxacin HCl [From Cipro] Allergy (Verified 05/10/18 11:09) Hives TONGUE SWELLS clarithromycin [From Biaxin] Allergy (Verified 05/10/18 11:09) Swelling exenatide [From Byetta] Allergy (Verified 05/10/18 11:09) Rash folic acid [From Proferrin-Forte] Allergy (Verified 05/10/18 11:09) Rash hyoscyamine sulfate [From Levsin] Allergy (Verified 05/10/18 11:09) Rash iron heme polypeptide [From Proferrin-Forte] Allergy (Verified 12/08/18 22:03) tongue swelling naproxen [From Naprosyn] Allergy (Verified 05/10/18 11:09) Rash tetracaine [From Cetacaine] Allergy (Verified 12/08/18 22:03) throat swelled shut venlafaxine HCl [From Effexor] Allergy (Verified 12/08/18 22:03) tongue swelling procainamide Adverse Reaction (Severe, Verified 05/10/18 11:09) Anaphylactic/Resp. Distress atorvastatin calcium [From Lipitor] Adverse Reaction (Intermediate, Verified 05/10/18 11:09) Mylagias rosuvastatin calcium [From Crestor] Adverse Reaction (Intermediate, Verified 05/10/18 11:09) Myalgias diphenhydramine HCl [From Benadryl] Adverse Reaction (Verified 12/08/18 22:03) Restlessness aspergillus Adverse Reaction (Severe, Uncoded 10/07/17 11:07) Unknown niaspan Adverse Reaction (Severe, Uncoded 10/07/17 11:08) Unsure Home Medications: Ambulatory Orders Medication Instructions Recorded ALPRAZolam [Xanax] 0.25 mg PO DAILY 01/17/16 Fluticasone Propionate [Flonase 9.9 ml NS DAILY 01/17/16 Allergy Relief] Metformin HCl [Glucophage] 1,000 mg PO BIDCM 01/17/16 Montelukast [Singulair] 10 mg PO QHS 01/17/16 Insulin NPH Human Isophane 28 unit SQ BID 07/13/17 [Novolin N] Acetaminophen [Tylenol Tablet] 325 - 650 mg PO Q6H PRN PRN tab 07/14/17 Aspirin E.C. [Ecotrin] 81 mg PO DAILY@0800 #30 tab 07/14/17 carvedilol 3.125 mg tablet 3.125 mg PO BID #180 tab 05/04/18 buspirone 10 mg tablet 10 mg PO TID tab 05/07/18 pramipexole 1 mg tablet 1 mg PO BID 05/07/18 clopidogrel 75 mg tablet See Rx Instructions PO QDAY #90 tab 05/10/18 isosorbide mononitrate ER 30 mg 15 mg PO DAILY #45 tab 06/16/18 tablet,extended release 24 hr losartan 50 mg tablet 50 mg PO QHS #90 tab 06/16/18 pravastatin 40 mg tablet 40 mg PO DAILY #90 tab 06/16/18 glyburide 2.5 mg tablet 2.5 mg PO DAILY 07/02/18 nitroglycerin 0.4 mg sublingual 0.4 mg SUBLINGUAL Q5M PRN #25 tab 10/12/18 tablet B12/Levomefolate Calcium/B-6 1 each PO DAILY 12/08/18 [Folbic Rf Tablet] Cholecalciferol (Vitamin D3) 2,000 unit PO DAILY 12/08/18 [D3-2000] Magnesium Oxide [Magnesium] 400 mg PO DAILY 12/08/18 Surgical History: Surgical History (Last Updated 05/10/18 @ 11:12 by Ro Aquino) Stented coronary artery (Chronic) Onset Date: 07/11/17 Z95.5 90% occlusion, thrombectomy post anterior STEMI:ALEXANDRO to LAD 3.0 X [address] [facility] History of appendectomy Z90.49 History of cholecystectomy Z90.49 History of dental surgery Z92.89 History of exploratory laparotomy Z98.890 History of left knee surgery Z98.890 meniscus repait History of vasectomy Z98.52 Status post excision of lipoma Z98.890, Z86.018 Surgical History: appendectomy, arthscropcy, hip, cholecystectomy, - - R abdominal wall muscle repair. Psychiatric History: No pertinent psych hx Lives: Spouse/ Significant Other Smoking Status: Never smoker Tobacco Use: Non-smoker Alcohol: Rare Drugs: None - *Family History Maternal Family History: Family History (Last Updated 05/10/18 @ 11:14 by Ro Aquino) Mother Diabetes Hypertension Father Hypotension Brother Hypertension HLD (hyperlipidemia) Grandmother Diabetes Grandfather CVA (cerebral vascular accident) Diabetes Brother Cancer History Items: Diabetes, Hypertension Paternal Family History: Family History (Last Updated 05/10/18 @ 11:14 by Ro Aquino) Mother Diabetes Hypertension Father Hypotension Brother Hypertension HLD (hyperlipidemia) Grandmother Diabetes Grandfather CVA (cerebral vascular accident) Diabetes Brother Cancer History Items: - - Father with history of hypotention. Review of Systems Constitutional: Reports: Chills, Fever, Malaise, Weakness. Denies: Anorexia, Night Sweats, Weight Change Eyes: Denies: Blurred vision, Cataracts, Conjunctivae Inflammation, Double vision, Drainage HEENT: Denies: Difficulty Swallowing, Dysphasia, Ear Pain, Eye Pain, Hearing Changes, Nasal bleeding, Nasal Congestion, Post Nasal Drip Cardiovascular: Denies: Chest Pain, Claudication, Chest Pressure, Chest Tightness, Edema, Heaviness, Palpitations Respiratory: Denies: Cough, Hemoptysis, Pleuritic Pain, Shortness of Breath, Shortness of breath at rest, Shortness of breath upon exertion, Sputum production Gastrointestinal: Denies: Abdominal Pain, Constipation, Diarrhea, Hematemesis, Hematochezia, Nausea, Melena, Vomiting Genitourinary: Denies: Dysuria, Frequency, Hematuria, Hesitancy, Urgency Musculoskeletal: Denies: Back Pain, Foot Pain, Hand Pain, Joint Pain, Joint stiffness, Joint swelling, Joint Tenderness, Leg Pain Skin: Denies: Dryness, Jaundice, Pruritis, Rash Neurological: Denies: Blurred vision, Double vision, Change in Speech, Slurred speech, Difficulty swallowing, Focal weakness, Headaches, Incoordination, Numbness, Tingling, Tremor, Seizures Psychiatric: Denies: Anxiety, Depression, Homicidal Ideations, Suicidal Ideations Endocrine: Denies: Change in Body Habitus, Heat/ Cold Intolerance, Polydipsia, Polyuria Hematologic/ Lymphatic: Denies: Adenopathy, Anemia, Easy Bruising, Easy Bleeding, Petechiae, Purpura VTE Information - Inpt Only VTE Present on Admission: No VTE Mechan Device Prophylaxis: None VTE Pharm Prophylaxis ordered?: Yes Patient Problems: Active and Suspected Problems (Last Updated 05/10/18 @ 11:12 by Ro Aquino) Fever and chills (Acute) Generalized weakness (Acute) - Physical Exam General: Alert, Oriented x3, Cooperative, No apparent distress, Well developed, Well nourished HEENT: Atraumatic, PERRLA, EOMI, Normocephalic Oral: Moist Mucosa Neck: Supple, No JVD, Negative Carotid Bruits, No Nuchal Rigidity, Trachea Midline, Thyroid Normal Size and Texture Lungs: Clear to auscultation, Normal air movement, No rhonchi, No wheeze, No rales Cardiovascular: Regular rate, Regular Rhythm, Normal S1, Normal S2, No murmurs, No Ectopic Activity, PMI Normal, No rub noted, No Gallop, Tachycardic - Heart rate 130 Abdomen: Bowel Sounds Present, Soft, Non Tender, Non-Distended, No hernias noted Extremities: No clubbing, No cyanosis, No edema, Capillary Refill Less than 3 Seconds Skin: No rashes, No breakdown Musculoskeletal: No Tenderness to Palpation of Joints or Extremities Neurological: Cranial nerves II-XII grossly intact, Neuro grossly intact, Muscle tone normal, Sensory exam intact to light touch and pain, Coordination normal Psych/Mental Status: Normal Affect, Appropriate, Alert and oriented to time, place, person, mood and affect Vital Signs Temp Pulse Resp BP Pulse Ox 101.4 F H 122 H 18 109/66 92 12/08/18 21:33 12/08/18 21:33 12/08/18 21:33 12/08/18 21:33 12/08/18 21:33 Oxygen Delivery Method Room Air Weight: 100.9 kg Body Mass Index (BMI) 33.8 Laboratory Tests Past 24 Hrs 12/08/18 12/08/18 12/08/18 18:40 18:40 18:40 WBC 13.0 H RBC 4.90 Hgb 14.7 Hct 43.4 MCV 88.6 MCH 30.0 MCHC 33.9 RDW 13.0 RDW Differential 41.7 Plt Count 202 MPV 9.8 Immature Gran % (Auto) 0.200 Neut % (Auto) 83.1 H Lymph % (Auto) 6.8 L Allen % (Auto) 9.5 Eos % (Auto) 0.2 Baso % (Auto) 0.2 Absolute Neuts (auto) 10.9 H Absolute Lymphs (auto) 0.88 Total Counted Not Reportable Sodium 137 Potassium 3.7 Chloride 103 Carbon Dioxide 28.0 Anion Gap 6 BUN 18 Creatinine 0.86 Estim Creat Clear Calc 80.64 Est GFR (MDRD) Af Amer 114 Est GFR (MDRD) Non-Af 94 BUN/Creatinine Ratio 20.9 H Glucose 132 H Lactic Acid 1.1 Calcium 8.9 Urine Color Urine Clarity Urine pH Ur Specific Ash[place] Urine Protein Urine Glucose (UA) Urine Ketones Urine Occult Blood Urine Nitrite Urine Bilirubin Urine Urobilinogen Ur Leukocyte Esterase Urine RBC Urine WBC Ur Squamous Epith Cells Urine Bacteria Urine Mucus 12/08/18 19:00 WBC RBC Hgb Hct MCV MCH MCHC RDW RDW Differential Plt Count MPV Immature Gran % (Auto) Neut % (Auto) Lymph % (Auto) Allen % (Auto) Eos % (Auto) Baso % (Auto) Absolute Neuts (auto) Absolute Lymphs (auto) Total Counted Sodium Potassium Chloride Carbon Dioxide Anion Gap BUN Creatinine Estim Creat Clear Calc Est GFR (MDRD) Af Amer Est GFR (MDRD) Non-Af BUN/Creatinine Ratio Glucose Lactic Acid Calcium Urine Color Yellow Urine Clarity Clear Urine pH 6.5 Ur Specific Ashby 1.010 Urine Protein 15 H Urine Glucose (UA) Normal Urine Ketones 5 H Urine Occult Blood 25 H Urine Nitrite Negative Urine Bilirubin Negative Urine Urobilinogen Normal Ur Leukocyte Esterase 25 H Urine RBC 0-5 SEEN Urine WBC 0-5 SEEN Ur Squamous Epith Cells 0 SEEN Urine Bacteria 0 SEEN Urine Mucus 0 SEEN Assessment/Plan All Active Problems (Last Updated 05/10/18 @ 11:12 by Ro Aquino) Fever and chills (Acute) Generalized weakness (Acute) Acute ST elevation myocardial infarction (STEMI) involving left anterior descending coronary artery (Resolved) Atherosclerosis of [place] coronary artery of [place] heart without angina pectoris (Resolved) #1 acute sepsis-as a consequence from recent prostate biopsy done this week, suspect gram-negative bacteria-patient will be admitted to [facility], he will be given IV fluids, he was started on IV Rocephin, patient is allergic to penicillin which caused problems breathing when he had it approximately 20 years ago. Blood cultures were drawn in the emergency room, labs will be monitored #2 coronary artery disease-stable on the patient had a stent placed in his coronary artery June 2018 #3 type 2 diabetes-blood sugars will be monitored, sliding scale insulin will be administered if needed #4 restless legs #5 hypertension #6 chronic anxiety #7 hyperlipidemia Code Visit Inpatient E&M: 77813 Init Hosp L3
--- NOTE | 2018-12-08 22:24 | HP.PCM_ITS ---
Problem List (1) Fever and chills Status: Acute (2) Generalized weakness Status: Acute History of Present Illness Date of Admission: 12/08/18 Chief Complaint: Fever and chills, generalized weakness The patient is a 68 year old M was seen in the emergency room today at [facility] with a chief complaint of sudden onset of chills and fever starting this afternoon along with generalized weakness. Patient denies any cough, sputum production, or hemoptysis. Patient denies any dysuria. Patient states he underwent a prostate biopsy on Thursday of this week in [facility] due to a finding of a nodule on his prostate. Before the biopsy was carried out, patient took an oral antibiotic. Patient states today his temperature was 101.8 this afternoon before he came to the emergency room. Patient states he took Tylenol at home. Workup in the emergency room included labs which were remarkable for an increased white blood cell count at 13, patient's urinalysis was unremarkable, patient's chemistry profile was remarkable for a glucose of 132. Chest x-ray was obtained and this did not show any acute process, patient's high temperature in the emergency room was 101.8. On examination, patient had visible chills. He was given IV fluids in the emergency room, he was started on Rocephin IV, patient met criteria for sepsis and was admitted to [place] [id number] for acute sepsis secondary to gram-negative bacteria. Past Medical History Past Medical History (Chronic Problems): Chronic Problems (Last Updated 05/10/18 @ 11:12 by Ro Aquino) Stented coronary artery (Chronic 07/11/17) 90% occlusion, thrombectomy post anterior STEMI:ALEXANDRO to LAD 3.0 X [address] 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 Etienne [facility] History of ST elevation myocardial infarction (STEMI) (Chronic 07/11/17) Anterior Hypertension (Chronic) Anxiety (Chronic) Diabetes mellitus, type 2 (Chronic) Hyperlipidemia (Chronic) Restless legs (Chronic) 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.9) (Chronic) IBS (irritable bowel syndrome) (Chronic) Asthma (Chronic) Medical History: Medical History (Last Updated 05/10/18 @ 11:12 by Ro Aquino) Atherosclerotic heart disease of [place] coronary artery without angina pectoris (Chronic) Onset Date: 07/11/17 I25.10 90% occlusion, thrombectomy post anterior STEMI:ALEXANDRO to LAD 3.0 X [address] Etienne [facility] History of ST elevation myocardial infarction (STEMI) (Chronic) Onset Date: 07/11/17 I25.2 Anterior Hypertension (Chronic) I10 Diabetes mellitus, type 2 (Chronic) E11.9 Hyperlipidemia (Chronic) E78.[address] elevation myocardial infarction (STEMI) involving left anterior descending coronary artery (Resolved) I21.02 Atherosclerosis of [place] coronary artery of [place] heart without angina pectoris (Resolved) I25.10 PCI/ALEXANDRO to mid LAD 06/2017; Allergies Penicillins Allergy (Severe, Verified 05/10/18 11:09) Shortness of breath quinine sulfate [From Quine] Allergy (Severe, Verified 12/08/18 22:03) passed out benzocaine [From Cetacaine] Allergy (Verified 05/10/18 11:09) Swelling butamben [From Cetacaine] Allergy (Verified 05/10/18 11:09) Swelling ciprofloxacin HCl [From Cipro] Allergy (Verified 05/10/18 11:09) Hives TONGUE SWELLS clarithromycin [From Biaxin] Allergy (Verified 05/10/18 11:09) Swelling exenatide [From Byetta] Allergy (Verified 05/10/18 11:09) Rash folic acid [From Proferrin-Forte] Allergy (Verified 05/10/18 11:09) Rash hyoscyamine sulfate [From Levsin] Allergy (Verified 05/10/18 11:09) Rash iron heme polypeptide [From Proferrin-Forte] Allergy (Verified 12/08/18 22:03) tongue swelling naproxen [From Naprosyn] Allergy (Verified 05/10/18 11:09) Rash tetracaine [From Cetacaine] Allergy (Verified 12/08/18 22:03) throat swelled shut venlafaxine HCl [From Effexor] Allergy (Verified 12/08/18 22:03) tongue swelling procainamide Adverse Reaction (Severe, Verified 05/10/18 11:09) Anaphylactic/Resp. Distress atorvastatin calcium [From Lipitor] Adverse Reaction (Intermediate, Verified 05/10/18 11:09) Mylagias rosuvastatin calcium [From Crestor] Adverse Reaction (Intermediate, Verified 05/10/18 11:09) Myalgias diphenhydramine HCl [From Benadryl] Adverse Reaction (Verified 12/08/18 22:03) Restlessness aspergillus Adverse Reaction (Severe, Uncoded 10/07/17 11:07) Unknown niaspan Adverse Reaction (Severe, Uncoded 10/07/17 11:08) Unsure Home Medications: Ambulatory Orders Medication Instructions Recorded ALPRAZolam [Xanax] 0.25 mg PO DAILY 01/17/16 Fluticasone Propionate [Flonase 9.9 ml NS DAILY 01/17/16 Allergy Relief] Metformin HCl [Glucophage] 1,000 mg PO BIDCM 01/17/16 Montelukast [Singulair] 10 mg PO QHS 01/17/16 Insulin NPH Human Isophane 28 unit SQ BID 07/13/17 [Novolin N] Acetaminophen [Tylenol Tablet] 325 - 650 mg PO Q6H PRN PRN tab 07/14/17 Aspirin E.C. [Ecotrin] 81 mg PO DAILY@0800 #30 tab 07/14/17 carvedilol 3.125 mg tablet 3.125 mg PO BID #180 tab 05/04/18 buspirone 10 mg tablet 10 mg PO TID tab 05/07/18 pramipexole 1 mg tablet 1 mg PO BID 05/07/18 clopidogrel 75 mg tablet See Rx Instructions PO QDAY #90 tab 05/10/18 isosorbide mononitrate ER 30 mg 15 mg PO DAILY #45 tab 06/16/18 tablet,extended release 24 hr losartan 50 mg tablet 50 mg PO QHS #90 tab 06/16/18 pravastatin 40 mg tablet 40 mg PO DAILY #90 tab 06/16/18 glyburide 2.5 mg tablet 2.5 mg PO DAILY 07/02/18 nitroglycerin 0.4 mg sublingual 0.4 mg SUBLINGUAL Q5M PRN #25 tab 10/12/18 tablet B12/Levomefolate Calcium/B-6 1 each PO DAILY 12/08/18 [Folbic Rf Tablet] Cholecalciferol (Vitamin D3) 2,000 unit PO DAILY 12/08/18 [D3-2000] Magnesium Oxide [Magnesium] 400 mg PO DAILY 12/08/18 Surgical History: Surgical History (Last Updated 05/10/18 @ 11:12 by Ro Aquino) Stented coronary artery (Chronic) Onset Date: 07/11/17 Z95.5 90% occlusion, thrombectomy post anterior STEMI:ALEXANDRO to LAD 3.0 X [address] Etienne [facility] History of appendectomy Z90.49 History of cholecystectomy Z90.49 History of dental surgery Z92.89 History of exploratory laparotomy Z98.890 History of left knee surgery Z98.890 meniscus repait History of vasectomy Z98.52 Status post excision of lipoma Z98.890, Z86.018 Surgical History: appendectomy, arthscropcy, hip, cholecystectomy, - - R abdominal wall muscle repair. Psychiatric History: No pertinent psych hx Lives: Spouse/ Significant Other Smoking Status: Never smoker Tobacco Use: Non-smoker Alcohol: Rare Drugs: None - *Family History Maternal Family History: Family History (Last Updated 05/10/18 @ 11:14 by Ro Aquino) Mother Diabetes Hypertension Father Hypotension Brother Hypertension HLD (hyperlipidemia) Grandmother Diabetes Grandfather CVA (cerebral vascular accident) Diabetes Brother Cancer History Items: Diabetes, Hypertension Paternal Family History: Family History (Last Updated 05/10/18 @ 11:14 by Ro Aquino) Mother Diabetes Hypertension Father Hypotension Brother Hypertension HLD (hyperlipidemia) Grandmother Diabetes Grandfather CVA (cerebral vascular accident) Diabetes Brother Cancer History Items: - - Father with history of hypotention. Review of Systems Constitutional: Reports: Chills, Fever, Malaise, Weakness. Denies: Anorexia, Night Sweats, Weight Change Eyes: Denies: Blurred vision, Cataracts, Conjunctivae Inflammation, Double vision, Drainage HEENT: Denies: Difficulty Swallowing, Dysphasia, Ear Pain, Eye Pain, Hearing Changes, Nasal bleeding, Nasal Congestion, Post Nasal Drip Cardiovascular: Denies: Chest Pain, Claudication, Chest Pressure, Chest Tightness, Edema, Heaviness, Palpitations Respiratory: Denies: Cough, Hemoptysis, Pleuritic Pain, Shortness of Breath, Shortness of breath at rest, Shortness of breath upon exertion, Sputum producti on Gastrointestinal: Denies: Abdominal Pain, Constipation, Diarrhea, Hematemesis, Hematochezia, Nausea, Melena, Vomiting Genitourinary: Denies: Dysuria, Frequency, Hematuria, Hesitancy, Urgency Musculoskeletal: Denies: Back Pain, Foot Pain, Hand Pain, Joint Pain, Joint stiffness, Joint swelling, Joint Tenderness, Leg Pain Skin: Denies: Dryness, Jaundice, Pruritis, Rash Neurological: Denies: Blurred vision, Double vision, Change in Speech, Slurred speech, Difficulty swallowing, Focal weakness, Headaches, Incoordination, Numbness, Tingling, Tremor, Seizures Psychiatric: Denies: Anxiety, Depression, Homicidal Ideations, Suicidal Ideations Endocrine: Denies: Change in Body Habitus, Heat/ Cold Intolerance, Polydipsia, Polyuria Hematologic/ Lymphatic: Denies: Adenopathy, Anemia, Easy Bruising, Easy Bleeding, Petechiae, Purpura VTE Information - Inpt Only VTE Present on Admission: No VTE Mechan Device Prophylaxis: None VTE Pharm Prophylaxis ordered?: Yes Patient Problems: Active and Suspected Problems (Last Updated 05/10/18 @ 11:12 by Ro Aquino) Fever and chills (Acute) Generalized weakness (Acute) - Physical Exam General: Alert, Oriented x3, Cooperative, No apparent distress, Well developed, Well nourished HEENT: Atraumatic, PERRLA, EOMI, Normocephalic Oral: Moist Mucosa Neck: Supple, No JVD, Negative Carotid Bruits, No Nuchal Rigidity, Trachea Midline, Thyroid Normal Size and Texture Lungs: Clear to auscultation, Normal air movement, No rhonchi, No wheeze, No rales Cardiovascular: Regular rate, Regular Rhythm, Normal S1, Normal S2, No murmurs, No Ectopic Activity, PMI Normal, No rub noted, No Gallop, Tachycardic - Heart rate 130 Abdomen: Bowel Sounds Present, Soft, Non Tender, Non-Distended, No hernias noted Extremities: No clubbing, No cyanosis, No edema, Capillary Refill Less than 3 Seconds Skin: No rashes, No breakdown Musculoskeletal: No Tenderness to Palpation of Joints or Extremities Neurological: Cranial nerves II-XII grossly intact, Neuro grossly intact, Muscle tone normal, Sensory exam intact to light touch and pain, Coordination normal Psych/Mental Status: Normal Affect, Appropriate, Alert and oriented to time, place, person, mood and affect Vital Signs Temp Pulse Resp BP Pulse Ox 101.4 F H 122 H 18 109/66 92 12/08/18 21:33 12/08/18 21:33 12/08/18 21:33 12/08/18 21:33 12/08/18 21:33 Oxygen Delivery Method Room Air Weight: 100.9 kg Body Mass Index (BMI) 33.8 Laboratory Tests Past 24 Hrs 12/08/18 12/08/18 12/08/18 18:40 18:40 18:40 WBC 13.0 H RBC 4.90 Hgb 14.7 Hct 43.4 MCV 88.6 MCH 30.0 MCHC 33.9 RDW 13.0 RDW Differential 41.7 Plt Count 202 MPV 9.8 Immature Gran % (Auto) 0.200 Neut % (Auto) 83.1 H Lymph % (Auto) 6.8 L [place] % (Auto) 9.5 Eos % (Auto) 0.2 Baso % (Auto) 0.2 Absolute Neuts (auto) 10.9 H Absolute Lymphs (auto) 0.88 Total Counted Not Reportable Sodium 137 Potassium 3.7 Chloride 103 Carbon Dioxide 28.0 Anion Gap 6 BUN 18 Creatinine 0.86 Estim Creat Clear Calc 80.64 Est GFR (MDRD) Af Amer 114 Est GFR (MDRD) Non-Af 94 BUN/Creatinine Ratio 20.9 H Glucose 132 H Lactic Acid 1.1 Calcium 8.9 Urine Color Urine Clarity Urine pH Ur Specific [place] Urine Protein Urine Glucose (UA) Urine Ketones Urine Occult Blood Urine Nitrite Urine Bilirubin Urine Urobilinogen Ur Leukocyte Esterase Urine RBC Urine WBC Ur Squamous Epith Cells Urine Bacteria Urine Mucus 12/08/18 19:00 WBC RBC Hgb Hct MCV MCH MCHC RDW RDW Differential Plt Count MPV Immature Gran % (Auto) Neut % (Auto) Lymph % (Auto) [place] % (Auto) Eos % (Auto) Baso % (Auto) Absolute Neuts (auto) Absolute Lymphs (auto) Total Counted Sodium Potassium Chloride Carbon Dioxide Anion Gap BUN Creatinine Estim Creat Clear Calc Est GFR (MDRD) Af Amer Est GFR (MDRD) Non-Af BUN/Creatinine Ratio Glucose Lactic Acid Calcium Urine Color Yellow Urine Clarity Clear Urine pH 6.5 Ur Specific [place] 1.010 Urine Protein 15 H Urine Glucose (UA) Normal Urine Ketones 5 H Urine Occult Blood 25 H Urine Nitrite Negative Urine Bilirubin Negative Urine Urobilinogen Normal Ur Leukocyte Esterase 25 H Urine RBC 0-5 SEEN Urine WBC 0-5 SEEN Ur Squamous Epith Cells 0 SEEN Urine Bacteria 0 SEEN Urine Mucus 0 SEEN Assessment/Plan All Active Problems (Last Updated 05/10/18 @ 11:12 by Ro Aquino) Fever and chills (Acute) Generalized weakness (Acute) Acute ST elevation myocardial infarction (STEMI) involving left anterior descending coronary artery (Resolved) Atherosclerosis of [place] coronary artery of [place] heart without angina pectoris (Resolved) #1 acute sepsis-as a consequence from recent prostate biopsy done this week, suspect gram-negative bacteria-patient will be admitted to [facility], he will be given IV fluids, he was started on IV Rocephin, patient is allergic to penicillin which caused problems breathing when he had it approximately 20 years ago. Blood cultures were drawn in the emergency room, labs will be monitored #2 coronary artery disease-stable on the patient had a stent placed in his coronary artery June 2018 #3 type 2 diabetes-blood sugars will be monitored, sliding scale insulin will be administered if needed #4 restless legs #5 hypertension #6 chronic anxiety #7 hyperlipidemia Code Visit Inpatient E&M: 79580 Init Hosp L3
[2018-12-08] MEDS: 0.9% Normal Saline 1,000 ML 999 ML IV (23:08)
[2018-12-08 23:11] VITALS: BP 132/73; PULSE 118; RESP 20; TEMP 38.3; O2SAT 98
--- NOTE | 2018-12-08 23:34 | NURSING ---
pt glucose 88 pt eating sandwich. denies chest pain at this time
[2018-12-08 23:36] LABS: Bedside Glucose 88 mg/dL (70-110)
[2018-12-08] MEDS: Heparin Injection (Vial) 5,000 UNIT/ML VIAL 5000 UNIT SC (23:49)
[2018-12-08] MEDS: Losartan Potassium 50 MG Tablet PO (23:49)
[2018-12-08] MEDS: Ondansetron 4 MG/2 ML Vial IV (23:50)
[2018-12-08] MEDS: ALPRAZolam 0.25 MG Tablet PO (23:50)
[2018-12-08] MEDS: 0.9% NaCl Peripheral Flush Adult/Peds IV (23:57)
[2018-12-09] VITALS (9 sets, daily range): BP systolic 118–150; BP diastolic 74–86; PULSE 106–133; RESP 12–18; TEMP 36.9–39.4; O2SAT 93–95
[2018-12-09] MEDS: 0.9% Normal Saline 1,000 ML 175 ML IV ×2 (00:24→05:45)
--- NOTE | 2018-12-09 01:37 | NURSING ---
pt asked for sugar to be checked felt lightheaded/dizzy thought he might be low-result 136. reassured pt that fever and illness can give him those symptoms too. pt eating jello now. denies any other concerns at this time
[2018-12-09 01:40] LABS: Bedside Glucose 136 mg/dL (70-110)
[2018-12-09] MEDS: Acetaminophen 325 MG Tablet 650 MG PO ×3 (03:44→20:57)
--- NOTE | 2018-12-09 04:20 | NURSING ---
Placed ice packs under arms and mick groins for elevated temp of 102.9. Pt instructed to use IS. Dr. thayer.
[2018-12-09] MEDS: Ibuprofen 400 MG Tablet PO (04:32)
[2018-12-09 06:35] LABS: Absolute Neutrophil Count 13.2 X10^3/uL (2.0-7.7); Basophil# 0.01 X10^3/uL; Basophil% 0.1 % (0-1); Hematocrit 42.6 % (40-54); Hemoglobin 13.8 g/dl (13.0-16.5); Lymphocyte % 6.4 % (19-41); Mean Corp Hgb Conc 32.4 g/gl (32-36); Mean Corpuscular Hgb 29.5 pg (27.0-32.0); Mean Platelet Vol. 9.8 fl (6.2-12.0); Monocyte# 1.37 X10^3/uL; Monocyte% 8.8 % (0-10); Neutrophil # 13.17 X10^3/uL (2.7-7.7); Neutrophil % 84.5 % (47-70); Platelet Count 189 K/mm3 (150-450); RBC Distribution Width CV 13.5 % (11.6-14.6); RBC Distribution Width SD 44.6 fl (35.1-43.9); Red Blood Count 4.68 M/mm3 (4.6-6.2); White Blood Count 15.6 K/mm3 (4.4-11.0)
[2018-12-09 06:42] LABS: POSITIVE COUNT NO; POSITIVE DIFFERENTIAL NO; POSITIVE MORPHOLOGY NO
[2018-12-09 06:51] LABS: Anion Gap 8 (5-15); BUN 13 mg/dL (7-18); BUN/Creat Ratio 13.5 RATIO (10-20); Calcium,Total 8.2 mg/dL (8.5-10.1); Chloride 104 mmol/L (98-107); Creatinine, Serum 0.97 mg/dL (0.70-1.30); EST Glomerular Filtration Rate 82 mL/min (>60); Est Glom Filt Rate - Afr Amer 100 mL/min (>60); Estimated Creatinine Clearance 71.49 ml/min; Glucose 182 mg/dL (74-106); Potassium 3.7 mmol/L (3.5-5.1); Sodium Level 137 mmol/L (136-145)
[2018-12-09] MEDS: Aspirin E.C. 81 MG Tablet PO (08:00)
[2018-12-09] MEDS: glyBURIDE 2.5 MG Tablet PO (08:01)
[2018-12-09] MEDS: metFORMIN HCl 1,000 MG Tablet 1000 MG PO ×2 (08:01→16:05)
[2018-12-09] MEDS: Insulin Lispro 100 UNIT/ML INSULN.PEN SC ×3 (08:09→16:05)
[2018-12-09] MEDS: Heparin Injection (Vial) 5,000 UNIT/ML VIAL 5000 UNIT SC ×2 (08:18→22:51)
[2018-12-09] MEDS: Carvedilol 3.125 MG TABLET PO ×2 (08:18→22:51)
[2018-12-09] MEDS: Isosorbide Mononitrate 30 MG Tablet 15 MG PO (08:20)
[2018-12-09] MEDS: Pravastatin 40 MG Tablet PO (08:21)
[2018-12-09] MEDS: Clopidogrel Bisulfate 75 MG Tablet PO (08:21)
[2018-12-09] MEDS: Pramipexole Di-HCl 1 MG Tablet PO ×2 (08:21→22:51)
[2018-12-09 08:40] LABS: Bedside Glucose 181 mg/dL (70-110)
--- NOTE | 2018-12-09 10:10 | CT_ITS ---
STUDY: CT PELVIS WITH CONTRAST REASON FOR EXAM: Male, 68 years old. Prostatitis after biopsy. Question abscess. RADIATION DOSAGE (If Supplied By Facility): CTDIvol = ( 20.23 ) mGy, DLP = ( 845.30 ) mGycm TECHNIQUE: Transaxial imaging of the pelvis was performed without oral contrast. 100mL IV Isovue 300 was administered intravenously. Multiplanar coronal and sagittal images were reformatted. Individualized dose optimization techniques were used for this CT. COMPARISON: CT of the abdomen and pelvis, July 17, 2015. FINDINGS: There is minimal contrast in the dependent portion of the urinary bladder with contrast seen in the distal ureters. There is no evidence of bladder mass or wall thickening. The prostate appears normal in size and contour. It is slightly heterogenous in density but without evidence of mass or fluid collection to suggest abscess. The periprosthetic soft tissues appear normal. Normal seminal vesicles. Normal visualized small intestine. There is minimal diverticulosis of the sigmoid colon without acute inflammatory change. There is no pelvic fluid. There is no pelvic lymphadenopathy or mass lesion. Normal visualized pelvic arteries. Normal abdominal wall. And degenerative changes of the lower lumbar spine. Bilateral hips. CT/Pelvis WITH IV Contrast IMPRESSION: 1. Mildly heterogenous prostate without evidence of mass or abscess. There is no periprosthetic abnormality. 2. Diverticulosis without acute inflammatory change or other evidence of pelvic abnormality. 3. Degenerative changes of the lumbar spine and hips. Electronically Signed: Howard Sorenson DO at 11:45 EDT Tel [phone], Service support ,
[2018-12-09] MEDS: 0.9% Normal Saline 1,000 ML 50 ML IV (11:30)
[2018-12-09 12:16] LABS: Bedside Glucose 223 mg/dL (70-110)
--- NOTE | 2018-12-09 12:19 | PCM.CONS.U ---
Reason for Consult Date of Consultation: 12/09/18 Reason for Consultation: Bacteremia after prostate biopsy History of Present Illness: The patient is a 68 year old male who had an abnormal nodule per the patient's report underwent a cystoscopy and biopsy in [place] presented to the hospital yesterday with fevers and chills, elevated white blood count, urine appeared infected, urine cultures and blood cultures are all pending he is on IV antibiotics. He is clinically stable. He had a CT scan of the abdomen and pelvis done which demonstrated a distended bladder but he needed to urinate has been urinating okay, prostate with no abscess or abnormalities noted. Past Medical History Past Medical History (Chronic Problems): Chronic Problems (Last Updated 05/10/18 @ 11:12 by Ro Aquino) Stented coronary artery (Chronic 07/11/17) 90% occlusion, thrombectomy post anterior STEMI:ALEXANDRO to LAD 3.0 X [address] 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 Etienne [facility] History of ST elevation myocardial infarction (STEMI) (Chronic 07/11/17) Anterior Hypertension (Chronic) Anxiety (Chronic) Diabetes mellitus, type 2 (Chronic) Hyperlipidemia (Chronic) Restless legs (Chronic) 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.9) (Chronic) IBS (irritable bowel syndrome) (Chronic) Asthma (Chronic) Medical History: Medical History (Last Reviewed 12/09/18 @ 12:20 by Josue Cooper MD) Atherosclerotic heart disease of [place] coronary artery without angina pectoris (Chronic) Onset Date: 07/11/17 I25.10 90% occlusion, thrombectomy post anterior STEMI:ALEXANDRO to LAD 3.0 X [address] Etienne [facility] History of ST elevation myocardial infarction (STEMI) (Chronic) Onset Date: 07/11/17 I25.2 Anterior Hypertension (Chronic) I10 Diabetes mellitus, type 2 (Chronic) E11.9 Hyperlipidemia (Chronic) E78.[address] elevation myocardial infarction (STEMI) involving left anterior descending coronary artery (Resolved) I21.02 Atherosclerosis of [place] coronary artery of [place] heart without angina pectoris (Resolved) I25.10 PCI/ALEXANDRO to mid LAD 06/2017; Allergies Penicillins Allergy (Severe, Verified 05/10/18 11:09) Shortness of breath quinine sulfate [From Quine] Allergy (Severe, Verified 12/08/18 22:03) passed out benzocaine [From Cetacaine] Allergy (Verified 05/10/18 11:09) Swelling butamben [From Cetacaine] Allergy (Verified 05/10/18 11:09) Swelling ciprofloxacin HCl [From Cipro] Allergy (Verified 05/10/18 11:09) Hives TONGUE SWELLS clarithromycin [From Biaxin] Allergy (Verified 05/10/18 11:09) Swelling exenatide [From Byetta] Allergy (Verified 05/10/18 11:09) Rash folic acid [From Proferrin-Forte] Allergy (Verified 05/10/18 11:09) Rash hyoscyamine sulfate [From Levsin] Allergy (Verified 05/10/18 11:09) Rash iron heme polypeptide [From Proferrin-Forte] Allergy (Verified 12/08/18 22:03) tongue swelling naproxen [From Naprosyn] Allergy (Verified 05/10/18 11:09) Rash tetracaine [From Cetacaine] Allergy (Verified 12/08/18 22:03) throat swelled shut venlafaxine HCl [From Effexor] Allergy (Verified 12/08/18 22:03) tongue swelling procainamide Adverse Reaction (Severe, Verified 05/10/18 11:09) Anaphylactic/Resp. Distress atorvastatin calcium [From Lipitor] Adverse Reaction (Intermediate, Verified 05/10/18 11:09) Mylagias rosuvastatin calcium [From Crestor] Adverse Reaction (Intermediate, Verified 05/10/18 11:09) Myalgias diphenhydramine HCl [From Benadryl] Adverse Reaction (Verified 12/08/18 22:03) Restlessness aspergillus Adverse Reaction (Severe, Uncoded 10/07/17 11:07) Unknown niaspan Adverse Reaction (Severe, Uncoded 10/07/17 11:08) Unsure Home Medications: Ambulatory Orders Medication Instructions Recorded ALPRAZolam [Xanax] 0.25 mg PO DAILY 01/17/16 Fluticasone Propionate [Flonase 9.9 ml NS DAILY 01/17/16 Allergy Relief] Metformin HCl [Glucophage] 1,000 mg PO BIDCM 01/17/16 Montelukast [Singulair] 10 mg PO QHS 01/17/16 Insulin NPH Human Isophane 32 unit SQ BID 07/13/17 [Novolin N] Acetaminophen [Tylenol Tablet] 325 - 650 mg PO Q6H PRN PRN tab 07/14/17 Aspirin E.C. [Ecotrin] 81 mg PO DAILY@0800 #30 tab 07/14/17 carvedilol 3.125 mg tablet 3.125 mg PO BID #180 tab 05/04/18 buspirone 10 mg tablet 10 mg PO TID tab 05/07/18 pramipexole 1 mg tablet 2 mg PO QHS 05/07/18 isosorbide mononitrate ER 30 mg 15 mg PO DAILY #45 tab 06/16/18 tablet,extended release 24 hr losartan 50 mg tablet 50 mg PO QHS #90 tab 06/16/18 pravastatin 40 mg tablet 40 mg PO DAILY #90 tab 06/16/18 glyburide 2.5 mg tablet 2.5 mg PO DAILY 07/02/18 nitroglycerin 0.4 mg sublingual 0.4 mg SUBLINGUAL Q5M PRN #25 tab 10/12/18 tablet Cholecalciferol (Vitamin D3) 2,000 unit PO BID 12/08/18 [D3-2000] Clopidogrel Bisulfate [Plavix] 75 mg PO DAILY 12/08/18 Magnesium Oxide [Magnesium] 400 mg PO DAILY 12/08/18 Ubidecarenone [Coenzyme Q10] 100 mg PO DAILY 12/08/18 Vitamin B12 2,500 mcg PO DAILY 12/08/18 Surgical History: Surgical History (Last Reviewed 12/09/18 @ 12:20 by Josue Cooper MD) Stented coronary artery (Chronic) Onset Date: 07/11/17 Z95.5 90% occlusion, thrombectomy post anterior STEMI:ALEXANDRO to LAD 3.0 X [address] Etienne [facility] History of appendectomy Z90.49 History of cholecystectomy Z90.49 History of dental surgery Z92.89 History of exploratory laparotomy Z98.890 History of left knee surgery Z98.890 meniscus repait History of vasectomy Z98.52 Status post excision of lipoma Z98.890, Z86.018 Surgical History: appendectomy, arthscropcy, hip, cholecystectomy, - - R abdominal wall muscle repair. Psychiatric History: No pertinent psych hx Lives: Spouse/ Significant Other Smoking Status: Never smoker Tobacco Use: Non-smoker Alcohol: Rare Drugs: None - *Family History Maternal Family History: Family History (Last Reviewed 12/09/18 @ 12:20 by Josue Cooper MD) Mother Diabetes Hypertension Father Hypotension Brother Hypertension HLD (hyperlipidemia) Grandmother Diabetes Grandfather CVA (cerebral vascular accident) Diabetes Brother Cancer History Items: Diabetes, Hypertension Paternal Family History: Family History (Last Reviewed 12/09/18 @ 12:20 by Josue Cooper MD) Mother Diabetes Hypertension Father Hypotension Brother Hypertension HLD (hyperlipidemia) Grandmother Diabetes Grandfather CVA (cerebral vascular accident) Diabetes Brother Cancer History Items: - - Father with history of hypotention. Review of Systems Constitutional: Denies: Chills, Fever, Weight Change HEENT: Denies: Head Aches, Sinus Congestion, Sinus Drainage Cardiovascular: Denies: Chest Pain, Palpitations Respiratory: Denies: Cough, Shortness of breath at rest, Sputum production Gastrointestinal: Denies: Abdominal Pain, Nausea, Vomiting Genitourinary: Denies: Dysuria Musculoskeletal: Denies: Joint Pain, Joint Tenderness Skin: Denies: Rash, Wounds Neurological: Denies: Numbness, Tingling, Focal weakness Psychiatric: Denies: Anxiety, Depression, Homicidal Ideations, Suicidal Ideations Hematologic/ Lymphatic: Denies: Easy Bruising, Easy Bleeding Physical Exam - Physical Exam Vital Signs Temp 98.4 F 12/09/18 08:30 Pulse 106 H 12/09/18 08:30 Resp 18 12/09/18 08:30 BP 118/77 12/09/18 08:30 Pulse Ox 95 12/09/18 08:30 Intake & Output 12/07/18 12/08/18 12/09/18 23:59 23:59 23:59 Intake Total 2758 / 2758 Balance 2758 / 2758 Weight: 100.9 kg 100.9 kg Intake: Oral 600 / 600 IV fluid/meds 8 / 2158 Other: Number of Voids 2 General: Alert, Oriented x3 HEENT: Atraumatic Oral: Moist Mucosa Neck: Supple Lungs: Normal air movement Cardiovascular: Regular rate Abdomen: Soft, Obese Microbiology Past 72 Hours 03/27/19 18:40 Blood Culture - Preliminary Blood Culture (Wb) - Left Forearm 12/08/18 18:40 Blood Culture - Preliminary Blood Culture (Wb) - Right Wrist Laboratory Tests Past 24 Hrs 12/08/18 12/08/18 12/08/18 18:40 18:40 18:40 WBC 13.0 H RBC 4.90 Hgb 14.7 Hct 43.4 MCV 88.6 MCH 30.0 MCHC 33.9 RDW 13.0 RDW Differential 41.7 Plt Count 202 MPV 9.8 Immature Gran % (Auto) 0.200 Neut % (Auto) 83.1 H Lymph % (Auto) 6.8 L [place] % (Auto) 9.5 Eos % (Auto) 0.2 Baso % (Auto) 0.2 Absolute Neuts (auto) 10.9 H Absolute Lymphs (auto) 0.88 Total Counted Not Reportable Sodium 137 Potassium 3.7 Chloride 103 Carbon Dioxide 28.0 Anion Gap 6 BUN 18 Creatinine 0.86 Estim Creat Clear Calc 80.64 Est GFR (MDRD) Af Amer 114 Est GFR (MDRD) Non-Af 94 BUN/Creatinine Ratio 20.9 H Glucose 132 H Lactic Acid 1.1 Calcium 8.9 Urine Color Urine Clarity Urine pH Ur Specific [place] Urine Protein Urine Glucose (UA) Urine Ketones Urine Occult Blood Urine Nitrite Urine Bilirubin Urine Urobilinogen Ur Leukocyte Esterase Urine RBC Urine WBC Ur Squamous Epith Cells Urine Bacteria Urine Mucus 12/08/18 12/09/18 12/09/18 19:00 06:20 06:20 WBC 15.6 H RBC 4.68 Hgb 13.8 Hct 42.6 MCV 91.0 MCH 29.5 MCHC 32.4 RDW 13.5 RDW Differential 44.6 H Plt Count 189 MPV 9.8 Immature Gran % (Auto) 0.200 Neut % (Auto) 84.5 H Lymph % (Auto) 6.4 L [place] % (Auto) 8.8 Eos % (Auto) 0.0 Baso % (Auto) 0.1 Absolute Neuts (auto) 13.2 H Absolute Lymphs (auto) 1.00 Total Counted Not Reportable Sodium 137 Potassium 3.7 Chloride 104 Carbon Dioxide 25.0 Anion Gap 8 BUN 13 Creatinine 0.97 Estim Creat Clear Calc 71.49 Est GFR (MDRD) Af Amer 100 Est GFR (MDRD) Non-Af 82 BUN/Creatinine Ratio 13.5 Glucose 182 H Lactic Acid Calcium 8.2 L Urine Color Yellow Urine Clarity Clear Urine pH 6.5 Ur Specific [place] 1.010 Urine Protein 15 H Urine Glucose (UA) Normal Urine Ketones 5 H Urine Occult Blood 25 H Urine Nitrite Negative Urine Bilirubin Negative Urine Urobilinogen Normal Ur Leukocyte Esterase 25 H Urine RBC 0-5 SEEN Urine WBC 0-5 SEEN Ur Squamous Epith Cells 0 SEEN Urine Bacteria 0 SEEN Urine Mucus 0 SEEN Assessment/Plan All Active Problems (Last Updated 05/10/18 @ 11:12 by Ro Aquino) Fever and chills (Acute) Generalized weakness (Acute) Acute ST elevation myocardial infarction (STEMI) involving left anterior descending coronary artery (Resolved) Atherosclerosis of [place] coronary artery of [place] heart without angina pectoris (Resolved) 68-year-old male with a history of a prostate nodule underwent a cystoscopy and biopsy at outside facility presented to the hospital with bacteremia urine and blood cultures are pending he is on IV antibiotics recommend continue with IV antibiotics until cultures come back some of the cultures come back negative that the case with these are best gases with antibiotics to send the patient home with with a course of antibiotics to clear his infection. At this point I do not think he requires a catheter is reporting fairly good flow we can check his bladder with a PVR if necessary. Probably should follow-up with his treating urologist in [place] to review the biopsy results since I do not have those if any questions please let me know currently I do not think any intervention is necessary besides IV antibiotics and treatment transferred to oral antibiotics once we know the sensitivities.
[2018-12-09] MEDS: Insulin NPH Human 100 UNITS/ML PEN 28 UNITS SC (12:20)
[2018-12-09] MEDS: ALPRAZolam 0.25 MG Tablet PO ×2 (12:31→19:06)
--- NOTE | 2018-12-09 12:35 | PCM.PN.HOSP ---
Patient Problems: Active and Suspected Problems (Last Reviewed 12/09/18 @ 12:20 by Josue Cooper MD) Fever and chills (Acute) Generalized weakness (Acute) Subjective: Patient was admitted yesterday with high-grade fever for 1 day after prostatic nodule biopsy on 12/06. Patient had prostatic nodule biopsy in [facility]. Patient had preop antibiotic 1 dose. 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 High-grade fever last night and morning today. Currently afebrile. Sinus tachycardia. No hypoxia. Vitals/I&O's: Vital Signs Temp Pulse Resp BP Pulse Ox 98.4 F 106 H 18 118/77 95 12/09/18 08:30 12/09/18 08:30 12/09/18 08:30 12/09/18 08:30 12/09/18 08:30 Oxygen Delivery Method Room Air Weight: 222 lb 7.143 oz Body Mass Index (BMI) 33.8 Intake and Output for Last 24 Hours 12/07/18 12/08/18 12/09/18 23:59 23:59 23:59 Intake Total 2758 / 2758 Balance 2758 / 2758 General: Alert, Oriented x3, Cooperative HEENT: Atraumatic, PERRLA, EOMI, Normocephalic Neck: Supple, No JVD, Negative Carotid Bruits Lungs: Clear to auscultation, Normal air movement, No rhonchi, No wheeze Cardiovascular: Regular rate, Regular Rhythm, Normal S1, Normal S2, No murmurs Abdomen: Bowel Sounds Present, Soft, Non Tender, Non-Distended, - - No perineal tenderness. No suprapubic tenderness. No rectal bleed Extremities: No edema, Capillary Refill Less than 3 Seconds, - Skin: No rashes, No breakdown Musculoskeletal: No Tenderness to Palpation of Joints or Extremities, Arthritic Changes Neurological: Cranial nerves II-XII grossly intact Psych/Mental Status: Normal Affect, Appropriate Microbiology Past 72 Hours 12/08/18 18:40 Blood Culture (Wb) - Left Forearm Blood Culture - Preliminary 12/08/18 18:40 Blood Culture (Wb) - Right Wrist Blood Culture - Preliminary Laboratory Results 12/08/18 18:40: WBC 13.0 H, RBC 4.90, Hgb 14.7, Hct 43.4, MCV 88.6, MCH 30.0, MCHC 33.9, RDW 13.0, RDW Differential 41.7, Plt Count 202, MPV 9.8, Immature Gran % (Auto) 0.200, Neut % (Auto) 83.1 H, Lymph % (Auto) 6.8 L, [place] % (Auto) 9.5, Eos % (Auto) 0.2, Baso % (Auto) 0.2, Absolute Neuts (auto) 10.9 H, Absolute Lymphs (auto) 0.88, Total Counted Not Reportable 12/08/18 18:40: Sodium 137, Potassium 3.7, Chloride 103, Carbon Dioxide 28.0, Anion Gap 6, BUN 18, Creatinine 0.86, Estim Creat Clear Calc 80.64, Est GFR (MDRD) Af Amer 114, Est GFR (MDRD) Non-Af 94, BUN/Creatinine Ratio 20.9 H, Glucose 132 H, Calcium 8.9 12/08/18 18:40: Lactic Acid 1.1 12/08/18 19:00: Urine Color Yellow, Urine Clarity Clear, Urine pH 6.5, Ur Specific [place] 1.010, Urine Protein 15 H, Urine Glucose (UA) Normal, Urine Ketones 5 H, Urine Occult Blood 25 H, Urine Nitrite Negative, Urine Bilirubin Negative, Urine Urobilinogen Normal, Ur Leukocyte Esterase 25 H, Urine RBC 0-5 SEEN, Urine WBC 0-5 SEEN, Ur Squamous Epith Cells 0 SEEN, Urine Bacteria 0 SEEN, Urine Mucus 0 SEEN 12/08/18 23:29: POC Glucose 88 12/09/18 01:34: POC Glucose 136 H 12/09/18 06:20: Sodium 137, Potassium 3.7, Chloride 104, Carbon Dioxide 25.0, Anion Gap 8, BUN 13, Creatinine 0.97, Estim Creat Clear Calc 71.49, Est GFR (MDRD) Af Amer 100, Est GFR (MDRD) Non-Af 82, BUN/Creatinine Ratio 13.5, Glucose 182 H, Calcium 8.2 L 12/09/18 06:20: WBC 15.6 H, RBC 4.68, Hgb 13.8, Hct 42.6, MCV 91.0, MCH 29.5, MCHC 32.4, RDW 13.5, RDW Differential 44.6 H, Plt Count 189, MPV 9.8, Immature Gran % (Auto) 0.200, Neut % (Auto) 84.5 H, Lymph % (Auto) 6.4 L, [place] % (Auto) 8.8, Eos % (Auto) 0.0, Baso % (Auto) 0.1, Absolute Neuts (auto) 13.2 H, Absolute Lymphs (auto) 1.00, Total Counted Not Reportable 12/09/18 07:58: POC Glucose 181 H 12/09/18 12:07: POC Glucose 223 H Current Medications Acetaminophen (Tylenol) 650 mg PO Q6H PRN PRN PRN Reason: Fever >101 Last Admin: 12/09/18 12:30 Dose: 650 mg Alprazolam (Xanax) 0.25 mg PO TID PRN PRN PRN Reason: ANXIETY/INSOMNIA Last Admin: 12/09/18 12:31 Dose: 0.25 mg Aspirin (Ecotrin) 81 mg PO DAILY@0800 [facility] Last Admin: 12/09/18 08:00 Dose: 81 mg Carvedilol (Coreg) 3.125 mg PO BID [facility] Last Admin: 12/09/18 08:18 Dose: 3.125 mg Clopidogrel Bisulfate (Plavix) 75 mg PO DAILY [facility] Last Admin: 12/09/18 08:21 Dose: 75 mg Glyburide (Micronase) 2.5 mg PO DAILYCM [facility] Last Admin: 12/09/18 08:01 Dose: 2.5 mg Heparin Sodium (Porcine) (Heparin Na) 5,000 unit SC Q12 [facility] Last Admin: 12/09/18 08:18 Dose: 5,000 unit Ceftriaxone Sodium 2 gm/ (Sodium Chloride) 50 mls @ 100 mls/hr IV Q24 [facility] Last Admin: 12/09/18 10:06 Dose: 100 mls/hr Sodium Chloride () 250 mls @ 15 mls/hr IV .[id number] PRN PRN Reason: SALINE FLUSH Sodium Chloride () 1,000 mls @ 50 mls/hr IV .Q20H [facility] Last Admin: 12/09/18 11:30 Dose: 50 mls/hr Insulin Human Lispro (Humalog Kwikpen (Bkc)) 0 unit SC ACHS [facility]; Protocol Last Admin: 12/09/18 12:20 Dose: 4 u Insulin Human NPH (Humulin N (Bkc)) 28 units SC BID [facility] Last Admin: 12/09/18 12:20 Dose: 28 u Isosorbide Mononitrate (Imdur) 15 mg PO DAILY [facility] Last Admin: 12/09/18 08:20 Dose: 15 mg Losartan Potassium (Cozaar) 50 mg PO QHS [facility] Last Admin: 12/08/18 23:49 Dose: 50 mg Magnesium Hydroxide (Milk Of Magnesia) 30 ml PO DAILY PRN PRN PRN Reason: Constipation [facility] Last Admin: 12/09/18 08:01 Dose: 1,000 mg Nitroglycerin (Nitrostat) 0.4 mg SUBLINGUAL Q5M PRN PRN Reason: Angina pain Ondansetron HCl (Zofran) 4 mg IV Q6H PRN PRN PRN Reason: NAUSEA Last Admin: 12/08/18 23:50 Dose: 4 mg Pramipexole Dihydrochloride (Mirapex) 1 mg PO BID [facility] Last Admin: 12/09/18 08:21 Dose: 1 mg Pravastatin Sodium (Pravachol) 40 mg PO DAILY [facility] Last Admin: 12/09/18 08:21 Dose: 40 mg Sodium Chloride () 5 - 15 ml IV UD PRN PRN Reason: SALINE FLUSH Last Admin: 12/08/18 23:57 Dose: 5 ml Medical Necessity - Tobacco Use Smoking Status: Never smoker Tobacco Use: Non-smoker Assessment/Plan All Active Problems (Last Reviewed 12/09/18 @ 12:20 by Josue Cooper MD) Fever and chills (Acute) Generalized weakness (Acute) Acute ST elevation myocardial infarction (STEMI) involving left anterior descending coronary artery (Resolved) Atherosclerosis of [place] coronary artery of [place] heart without angina pectoris (Resolved) This 68-year-old male with history of STEMI, coronary artery disease status post 2 stents in 2017, diabetes mellitus type 2 and hypertension was admitted with high grade fever after prostatic nodule biopsy on 12/06 in outside facility in [place]. Patient denies lower urinary tract symptoms including burning micturition, increased frequency urgency or perineal pain/heaviness. Earlier he had streak of rectal bleed but currently not bleeding. 1. Gram-negative saloni bacteremia most likely secondary to acute prostatitis after prostatic nodule biopsy: UA reported as leukocyte esterase 25, WBC 0-5, occult blood otherwise negative. Preliminary culture shows gram-negative rods in both bottles. Urine culture pending. Patient is started on Rocephin 2 g daily is being continued. Patient seen by urologist Dr. Cooper. CT pelvis was done with IV contrast and reported as mildly heterogeneous prostate without evidence of mass or abscess. No periprosatic abnormality. Patient has leukocytosis but no lactic acidosis. Discussed with ID and recommended urology consult and continue IV antibiotic. Kidney function, creatinine 0.97. 2. 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 disease status post stents: Stable. No chest pain. Home cardiac medications continued. #3 type 2 diabetes-: Accu-Chek last night shows 88. NPH insulin decreased to 20 units twice daily. Continue Accu-Chek and cover with NovoLog sliding scale. #4 restless legs #5 hypertension #6 chronic anxiety #7 hyperlipidemia DVT prophylaxis: On heparin 5000 units subcutaneous twice daily Microbiology Past 72 Hours 12/08/18 18:40 Blood Culture (Wb) - Left Forearm Blood Culture - Preliminary 12/08/18 18:40 Blood Culture (Wb) - Right Wrist Blood Culture - Preliminary Laboratory Results 12/08/18 18:40: WBC 13.0 H, RBC 4.90, Hgb 14.7, Hct 43.4, MCV 88.6, MCH 30.0, MCHC 33.9, RDW 13.0, RDW Differential 41.7, Plt Count 202, MPV 9.8, Immature Gran % (Auto) 0.200, Neut % (Auto) 83.1 H, Lymph % (Auto) 6.8 L, [place] % (Auto) 9.5, Eos % (Auto) 0.2, Baso % (Auto) 0.2, Absolute Neuts (auto) 10.9 H, Absolute Lymphs (auto) 0.88, Total Counted Not Reportable 12/08/18 18:40: Sodium 137, Potassium 3.7, Chloride 103, Carbon Dioxide 28.0, Anion Gap 6, BUN 18, Creatinine 0.86, Estim Creat Clear Calc 80.64, Est GFR (MDRD) Af Amer 114, Est GFR (MDRD) Non-Af 94, BUN/Creatinine Ratio 20.9 H, Glucose 132 H, Calcium 8.9 12/08/18 18:40: Lactic Acid 1.1 12/08/18 19:00: Urine Color Yellow, Urine Clarity Clear, Urine pH 6.5, Ur Specific [place] 1.010, Urine Protein 15 H, Urine Glucose (UA) Normal, Urine Ketones 5 H, Urine Occult Blood 25 H, Urine Nitrite Negative, Urine Bilirubin Negative, Urine Urobilinogen Normal, Ur Leukocyte Esterase 25 H, Urine RBC 0-5 SEEN, Urine WBC 0-5 SEEN, Ur Squamous Epith Cells 0 SEEN, Urine Bacteria 0 SEEN, Urine Mucus 0 SEEN 12/08/18 23:29: POC Glucose 88 12/09/18 01:34: POC Glucose 136 H 12/09/18 06:20: Sodium 137, Potassium 3.7, Chloride 104, Carbon Dioxide 25.0, Anion Gap 8, BUN 13, Creatinine 0.97, Estim Creat Clear Calc 71.49, Est GFR (MDRD) Af Amer 100, Est GFR (MDRD) Non-Af 82, BUN/Creatinine Ratio 13.5, Glucose 182 H, Calcium 8.2 L 12/09/18 06:20: WBC 15.6 H, RBC 4.68, Hgb 13.8, Hct 42.6, MCV 91.0, MCH 29.5, MCHC 32.4, RDW 13.5, RDW Differential 44.6 H, Plt Count 189, MPV 9.8, Immature Gran % (Auto) 0.200, Neut % (Auto) 84.5 H, Lymph % (Auto) 6.4 L, [place] % (Auto) 8.8, Eos % (Auto) 0.0, Baso % (Auto) 0.1, Absolute Neuts (auto) 13.2 H, Absolute Lymphs (auto) 1.00, Total Counted Not Reportable 12/09/18 07:58: POC Glucose 181 H 12/09/18 12:07: POC Glucose 223 H Clinical Impression(s) from Imaging Studies Chest X-Ray 12/08/18 18:44 IMPRESSION: No acute chest disease. Pelvis CT 12/09/18 10:10 IMPRESSION: 1. Mildly heterogenous prostate without evidence of mass or abscess. There is no periprosthetic abnormality. 2. Diverticulosis without acute inflammatory change or other evidence of pelvic abnormality. 3. Degenerative changes of the lumbar spine and hips. Code Visit Inpatient E&M: 97621 Subs Hosp L3
--- NOTE | 2018-12-09 13:11 | CASEMGMT ---
RN CM Assessment Presentation: Sepsis, recent bx of prostate. IV antibiotics Intro role of CM and purpose of RN CM assessment to patient. Demographics, PCP and Pharmacy verified.Pt states he is independent and plans to return home on discharge. PCP: Dr. Pradhan Preferred [facility] Insurance: [facility] Prescription Benefit: yes LNOK: Kristin Marcus, Living Arrangements: Lives independently with his . Transportation: pt drives DME: none HHC: none Patient DC goals: Home DC PLAN: Home Allison MOYA RN ACM
--- NOTE | 2018-12-09 15:28 | CHAPLAIN ---
Type of Pastoral Visit _x__ Initial Visit ___ Follow-up Visit ___ On-call Visit ___ General Patient Visit ___ Spiritual Assessment ___ Family Conference ___ Bereavement ___ Rapid Response ___ Code Blue ___ Other (describe below) Pastoral Care Referral From _x__ Patient ___ Family ___ Nurse ___ Physician ___ School Attendance Secretary ___ Branch Associate ___ Other (describe below) Sacrament/Intervention _x__ Active listening ___ Anointing ___ Faith ___ Bereavement ___ Communion _x__ Aria exploration ___ ___ Life review _x__ Prayer ___ Reconciliation ___ Sacrament of Sick _x__ Supportive presence ___ Wedding ___ Other (describe below) Pastoral Comments
--- NOTE | 2018-12-09 15:36 | PCM.HP.ID ---
Problem List (1) Fever and chills Status: Acute Reason for Consult: bacteremia Consulted by: Dr. Dukes History of Present Illness: The patient is a 68 year old M with prostate bx in [place] by Dr. Castaneda on 12/06, now presented yesterday with sudden onset fever, chills, shakes. No difficulty urinating. No n/v/d. No rash. No further blood in urine. Came to ED, admitted on ceftriaxone, now bcx x2 with GNR. Feeling better since admit. Full ROS performed and neg except as noted above. - Medical History Past Medical History (Chronic Problems): Chronic Problems (Last Reviewed 12/09/18 @ 12:20 by Josue Cooper MD) Stented coronary artery (Chronic 07/11/17) 90% occlusion, thrombectomy post anterior STEMI:ALEXANDRO to LAD 3.0 X [address] 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 Etienne [facility] History of ST elevation myocardial infarction (STEMI) (Chronic 07/11/17) Anterior Hypertension (Chronic) Anxiety (Chronic) Diabetes mellitus, type 2 (Chronic) Hyperlipidemia (Chronic) Restless legs (Chronic) 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.9) (Chronic) IBS (irritable bowel syndrome) (Chronic) Asthma (Chronic) Allergies/Adverse Reactions: Allergies Penicillins Allergy (Severe, Verified 05/10/18 11:09) Shortness of breath quinine sulfate [From Quine] Allergy (Severe, Verified 12/08/18 22:03) passed out benzocaine [From Cetacaine] Allergy (Verified 05/10/18 11:09) Swelling butamben [From Cetacaine] Allergy (Verified 05/10/18 11:09) Swelling ciprofloxacin HCl [From Cipro] Allergy (Verified 05/10/18 11:09) Hives TONGUE SWELLS clarithromycin [From Biaxin] Allergy (Verified 05/10/18 11:09) Swelling exenatide [From Byetta] Allergy (Verified 05/10/18 11:09) Rash folic acid [From Proferrin-Forte] Allergy (Verified 05/10/18 11:09) Rash hyoscyamine sulfate [From Levsin] Allergy (Verified 05/10/18 11:09) Rash iron heme polypeptide [From Proferrin-Forte] Allergy (Verified 12/08/18 22:03) tongue swelling naproxen [From Naprosyn] Allergy (Verified 05/10/18 11:09) Rash tetracaine [From Cetacaine] Allergy (Verified 12/08/18 22:03) throat swelled shut venlafaxine HCl [From Effexor] Allergy (Verified 12/08/18 22:03) tongue swelling procainamide Adverse Reaction (Severe, Verified 05/10/18 11:09) Anaphylactic/Resp. Distress atorvastatin calcium [From Lipitor] Adverse Reaction (Intermediate, Verified 05/10/18 11:09) Mylagias rosuvastatin calcium [From Crestor] Adverse Reaction (Intermediate, Verified 05/10/18 11:09) Myalgias diphenhydramine HCl [From Benadryl] Adverse Reaction (Verified 12/08/18 22:03) Restlessness aspergillus Adverse Reaction (Severe, Uncoded 10/07/17 11:07) Unknown niaspan Adverse Reaction (Severe, Uncoded 10/07/17 11:08) Unsure Home Medications: Ambulatory Orders Medication Instructions Recorded ALPRAZolam [Xanax] 0.25 mg PO DAILY 01/17/16 Fluticasone Propionate [Flonase 9.9 ml NS DAILY 01/17/16 Allergy Relief] Metformin HCl [Glucophage] 1,000 mg PO BIDCM 01/17/16 Montelukast [Singulair] 10 mg PO QHS 01/17/16 Insulin NPH Human Isophane 32 unit SQ BID 07/13/17 [Novolin N] Acetaminophen [Tylenol Tablet] 325 - 650 mg PO Q6H PRN PRN tab 07/14/17 Aspirin E.C. [Ecotrin] 81 mg PO DAILY@0800 #30 tab 07/14/17 carvedilol 3.125 mg tablet 3.125 mg PO BID #180 tab 05/04/18 buspirone 10 mg tablet 10 mg PO TID tab 05/07/18 pramipexole 1 mg tablet 2 mg PO QHS 05/07/18 isosorbide mononitrate ER 30 mg 15 mg PO DAILY #45 tab 06/16/18 tablet,extended release 24 hr losartan 50 mg tablet 50 mg PO QHS #90 tab 06/16/18 pravastatin 40 mg tablet 40 mg PO DAILY #90 tab 06/16/18 glyburide 2.5 mg tablet 2.5 mg PO DAILY 07/02/18 nitroglycerin 0.4 mg sublingual 0.4 mg SUBLINGUAL Q5M PRN #25 tab 10/12/18 tablet Cholecalciferol (Vitamin D3) 2,000 unit PO BID 12/08/18 [D3-2000] Clopidogrel Bisulfate [Plavix] 75 mg PO DAILY 12/08/18 Magnesium Oxide [Magnesium] 400 mg PO DAILY 12/08/18 Ubidecarenone [Coenzyme Q10] 100 mg PO DAILY 12/08/18 Vitamin B12 2,500 mcg PO DAILY 12/08/18 - Social History Tobacco Use: non-smoker Vital Signs Temp Pulse Resp BP Pulse Ox 98.4 F 106 H 18 118/77 95 12/09/18 08:30 12/09/18 08:30 12/09/18 08:30 12/09/18 08:30 12/09/18 08:30 Oxygen Delivery Method Room Air Weight: 100.9 kg Body Mass Index (BMI) 33.8 Microbiology Past 72 Hours 12/08/18 18:40 Blood Culture - Preliminary Blood Culture (Wb) - Left Forearm 12/08/18 18:40 Blood Culture - Preliminary Blood Culture (Wb) - Right Wrist Laboratory Tests Past 24 Hrs 12/08/18 12/08/18 12/08/18 18:40 18:40 18:40 WBC 13.0 H RBC 4.90 Hgb 14.7 Hct 43.4 MCV 88.6 MCH 30.0 MCHC 33.9 RDW 13.0 RDW Differential 41.7 Plt Count 202 MPV 9.8 Immature Gran % (Auto) 0.200 Neut % (Auto) 83.1 H Lymph % (Auto) 6.8 L [place] % (Auto) 9.5 Eos % (Auto) 0.2 Baso % (Auto) 0.2 Absolute Neuts (auto) 10.9 H Absolute Lymphs (auto) 0.88 Total Counted Not Reportable Sodium 137 Potassium 3.7 Chloride 103 Carbon Dioxide 28.0 Anion Gap 6 BUN 18 Creatinine 0.86 Estim Creat Clear Calc 80.64 Est GFR (MDRD) Af Amer 114 Est GFR (MDRD) Non-Af 94 BUN/Creatinine Ratio 20.9 H Glucose 132 H Lactic Acid 1.1 Calcium 8.9 Urine Color Urine Clarity Urine pH Ur Specific [place] Urine Protein Urine Glucose (UA) Urine Ketones Urine Occult Blood Urine Nitrite Urine Bilirubin Urine Urobilinogen Ur Leukocyte Esterase Urine RBC Urine WBC Ur Squamous Epith Cells Urine Bacteria Urine Mucus 12/08/18 12/09/18 12/09/18 19:00 06:20 06:20 WBC 15.6 H RBC 4.68 Hgb 13.8 Hct 42.6 MCV 91.0 MCH 29.5 MCHC 32.4 RDW 13.5 RDW Differential 44.6 H Plt Count 189 MPV 9.8 Immature Gran % (Auto) 0.200 Neut % (Auto) 84.5 H Lymph % (Auto) 6.4 L [place] % (Auto) 8.8 Eos % (Auto) 0.0 Baso % (Auto) 0.1 Absolute Neuts (auto) 13.2 H Absolute Lymphs (auto) 1.00 Total Counted Not Reportable Sodium 137 Potassium 3.7 Chloride 104 Carbon Dioxide 25.0 Anion Gap 8 BUN 13 Creatinine 0.97 Estim Creat Clear Calc 71.49 Est GFR (MDRD) Af Amer 100 Est GFR (MDRD) Non-Af 82 BUN/Creatinine Ratio 13.5 Glucose 182 H Lactic Acid Calcium 8.2 L Urine Color Yellow Urine Clarity Clear Urine pH 6.5 Ur Specific [place] 1.010 Urine Protein 15 H Urine Glucose (UA) Normal Urine Ketones 5 H Urine Occult Blood 25 H Urine Nitrite Negative Urine Bilirubin Negative Urine Urobilinogen Normal Ur Leukocyte Esterase 25 H Urine RBC 0-5 SEEN Urine WBC 0-5 SEEN Ur Squamous Epith Cells 0 SEEN Urine Bacteria 0 SEEN Urine Mucus 0 SEEN - Other Studies Radiology: [] reviewed Other Studies: [] Route of nutrition/ use of supplements: [] Nutritional Intake: [] IV Site: [] Perez Catheter: [] - Physical Exam General: Alert, Oriented x3, Cooperative, No apparent distress HEENT: Atraumatic, PERRLA, EOMI Neck: Supple, No Nodes Lungs: Clear to auscultation, Normal air movement Cardiovascular: Regular rate, Regular Rhythm Abdomen: Soft, Non Tender, Non-Distended Extremities: No edema Skin: No rashes IV Site: Peripheral, without edema Musculoskeletal: No Tenderness to Palpation of Joints or Extremities Neurological: Cranial nerves II-XII grossly intact - Assessment/Plan Antibiotics: [] Assessment/Plan: [] Active and Suspected Problems (Last Reviewed 12/09/18 @ 12:20 by Josue Cooper MD) Fever and chills (Acute) Generalized weakness (Acute) sepsis due to GNR bacteremia after prostate bx - he reports treated for 2 week of po abx about 3 months ago for urine/prostate infection. He is not sure what the cx was or what the abx were. Not in urology system, parisa system, or [facility] system. Improved on ceftriaxone, will continue. Recommend CT pelvis and urology eval to make sure no deeper abscess. Will follow, thank you, d/w Dr. Dukes.
[2018-12-09 16:10] LABS: Bedside Glucose 185 mg/dL (70-110)
[2018-12-09] MEDS: Losartan Potassium 50 MG Tablet PO (22:51)
[2018-12-09] MEDS: Insulin NPH Human 100 UNITS/ML PEN 20 UNITS SC (22:52)
[2018-12-09 23:01] LABS: Bedside Glucose 139 mg/dL (70-110)
[2018-12-10 02:27] VITALS: BP 146/97; PULSE 112; RESP 18; TEMP 36.6; O2SAT 95
[2018-12-10] MEDS: Ondansetron 4 MG/2 ML Vial IV (02:33)
[2018-12-10] MEDS: ALPRAZolam 0.25 MG Tablet PO ×2 (02:33→21:35)
[2018-12-10] MEDS: Insulin Lispro 100 UNIT/ML INSULN.PEN SC ×4 (06:53→21:39)
[2018-12-10] MEDS: Acetaminophen 325 MG Tablet 650 MG PO ×2 (06:53→20:04)
[2018-12-10 07:01] LABS: Bedside Glucose 169 mg/dL (70-110)
[2018-12-10 09:48] VITALS: BP 135/72; PULSE 92; RESP 16; TEMP 37.1; O2SAT 99
[2018-12-10] MEDS: metFORMIN HCl 1,000 MG Tablet 1000 MG PO ×2 (09:52→16:15)
[2018-12-10] MEDS: glyBURIDE 2.5 MG Tablet PO (09:52)
[2018-12-10] MEDS: Aspirin E.C. 81 MG Tablet PO (09:52)
[2018-12-10] MEDS: Heparin Injection (Vial) 5,000 UNIT/ML VIAL 5000 UNIT SC ×2 (09:53→21:41)
[2018-12-10] MEDS: Carvedilol 3.125 MG TABLET PO ×2 (09:53→21:40)
[2018-12-10] MEDS: Insulin NPH Human 100 UNITS/ML PEN 20 UNITS SC (09:55)
[2018-12-10] MEDS: Isosorbide Mononitrate 30 MG Tablet 15 MG PO (09:56)
[2018-12-10] MEDS: Pramipexole Di-HCl 1 MG Tablet PO ×2 (09:57→21:40)
[2018-12-10] MEDS: Pravastatin 40 MG Tablet PO (09:57)
[2018-12-10] MEDS: Clopidogrel Bisulfate 75 MG Tablet PO (09:57)
--- NOTE | 2018-12-10 11:05 | PCM.PN.HOSP ---
Patient Problems: Active and Suspected Problems (Last Reviewed 12/09/18 @ 12:20 by Josue Cooper MD) Fever and chills (Acute) Generalized weakness (Acute) Subjective: Patient seen and examined. Patient is overall feeling better than yesterday with no fever or chills overnight. Urine flow is good. Denies incomplete emptying or perineal pain Vitals/I&O's: Vital Signs Temp Pulse Resp BP Pulse Ox 98.8 F 92 16 135/72 H 99 12/10/18 09:48 12/10/18 09:48 12/10/18 09:48 12/10/18 09:48 12/10/18 09:48 Oxygen Delivery Method Room Air Weight: 222 lb 7.143 oz Body Mass Index (BMI) 33.8 Intake and Output for Last 24 Hours 12/08/18 12/09/18 12/10/18 23:59 23:59 23:59 Intake Total 3819 / 3819 1580 / 1580 Balance 3819 / 3819 1580 / 1580 General: Alert, Oriented x3, Cooperative HEENT: Atraumatic, PERRLA, EOMI, Normocephalic Neck: Supple, No JVD, Negative Carotid Bruits Lungs: Clear to auscultation, Normal air movement, No rhonchi, No wheeze, No rales Cardiovascular: Regular rate, Regular Rhythm, Normal S1, Normal S2, No murmurs Abdomen: Bowel Sounds Present, Soft, Non Tender, Non-Distended, - - No perineal tenderness or scrotal tenderness. Extremities: No edema, Capillary Refill Less than 3 Seconds Skin: No rashes, No breakdown Musculoskeletal: No Tenderness to Palpation of Joints or Extremities, Arthritic Changes Neurological: Cranial nerves II-XII grossly intact Psych/Mental Status: Normal Affect, Appropriate Microbiology Past 72 Hours 12/08/18 19:00 Urine, Clean Catch Urine Culture - Final Mixed Gram Positive Organisms 12/08/18 18:40 Blood Culture (Wb) - Left Forearm Blood Culture - Final 12/08/18 18:40 Blood Culture (Wb) - Right Wrist Blood Culture - Preliminary Gram negative saloni Laboratory Results 12/09/18 12:07: POC Glucose 223 H 12/09/18 15:58: POC Glucose 185 H 12/09/18 22:48: POC Glucose 139 H 12/10/18 06:49: POC Glucose 169 H Current Medications Acetaminophen (Tylenol) 650 mg PO Q6H PRN PRN PRN Reason: Fever >101 Last Admin: 12/10/18 06:53 Dose: 650 mg Alprazolam (Xanax) 0.25 mg PO TID PRN PRN PRN Reason: ANXIETY/INSOMNIA Last Admin: 12/10/18 02:33 Dose: 0.25 mg Aspirin (Ecotrin) 81 mg PO DAILY@0800 [facility] Last Admin: 12/10/18 09:52 Dose: 81 mg Carvedilol (Coreg) 3.125 mg PO BID [facility] Last Admin: 12/10/18 09:53 Dose: 3.125 mg Cholecalciferol (Vitamin D) 2,000 unit PO BID [facility] Clopidogrel Bisulfate (Plavix) 75 mg PO DAILY [facility] Last Admin: 12/10/18 09:57 Dose: 75 mg Cyanocobalamin (Vitamin B12) 2,500 mcg PO DAILY [facility] Fluticasone Propionate (Flonase Nasal [place]) 1 spray NASAL DAILY PRN PRN Glyburide (Micronase) 2.5 mg PO DAILYCM [facility] Last Admin: 12/10/18 09:52 Dose: 2.5 mg Heparin Sodium (Porcine) (Heparin Na) 5,000 unit SC Q12 [facility] Last Admin: 12/10/18 09:53 Dose: 5,000 unit Ceftriaxone Sodium 2 gm/ (Sodium Chloride) 50 mls @ 100 mls/hr IV Q24 [facility] Last Admin: 12/09/18 10:06 Dose: 100 mls/hr Sodium Chloride () 250 mls @ 15 mls/hr IV .[id number] PRN PRN Reason: SALINE FLUSH Sodium Chloride () 1,000 mls @ 50 mls/hr IV .Q20H [facility] Last Admin: 12/09/18 11:30 Dose: 50 mls/hr Insulin Human Lispro (Humalog Kwikpen (Bkc)) 0 unit SC ACHS [facility]; Protocol Last Admin: 12/10/18 06:53 Dose: 2 u Insulin Human NPH (Humulin N (Bkc)) 20 units SC BID [facility] Last Admin: 12/10/18 09:55 Dose: 20 units Isosorbide Mononitrate (Imdur) 15 mg PO DAILY [facility] Last Admin: 12/10/18 09:56 Dose: 15 mg Losartan Potassium (Cozaar) 50 mg PO QHS [facility] Last Admin: 12/09/18 22:51 Dose: 50 mg Magnesium Hydroxide (Milk Of Magnesia) 30 ml PO DAILY PRN PRN PRN Reason: Constipation Magnesium Oxide (Mag-Ox 400) 400 mg PO DAILY [facility] Last Admin: 12/10/18 09:52 Dose: 1,000 mg Montelukast Sodium (Singulair) 10 mg PO QHS [facility] Nitroglycerin (Nitrostat) 0.4 mg SUBLINGUAL Q5M PRN PRN Reason: Angina pain Ondansetron HCl (Zofran) 4 mg IV Q6H PRN PRN PRN Reason: NAUSEA Last Admin: 12/10/18 02:33 Dose: 4 mg Pramipexole Dihydrochloride (Mirapex) 1 mg PO BID [facility] Last Admin: 12/10/18 09:57 Dose: 1 mg Pravastatin Sodium (Pravachol) 40 mg PO DAILY [facility] Last Admin: 12/10/18 09:57 Dose: 40 mg Sodium Chloride () 5 - 15 ml IV UD PRN PRN Reason: SALINE FLUSH Last Admin: 12/08/18 23:57 Dose: 5 ml Medical Necessity - Tobacco Use Smoking Status: Never smoker Tobacco Use: Non-smoker Assessment/Plan All Active Problems (Last Reviewed 12/09/18 @ 12:20 by Josue Cooper MD) Fever and chills (Acute) Generalized weakness (Acute) Acute ST elevation myocardial infarction (STEMI) involving left anterior descending coronary artery (Resolved) Atherosclerosis of [place] coronary artery of [place] heart without angina pectoris (Resolved) This 68-year-old male with history of STEMI, coronary artery disease status post 2 stents in 2017, diabetes mellitus type 2 and hypertension was admitted with high grade fever after prostatic nodule biopsy on 12/06 in outside facility in [place]. Patient denies lower urinary tract symptoms including burning micturition, increased frequency urgency or perineal pain/heaviness. Earlier he had streak of rectal bleed but currently not bleeding. 1. Gram-negative saloni bacteremia most likely secondary to acute prostatitis after prostatic nodule biopsy: UA reported as leukocyte esterase 25, WBC 0-5, occult blood otherwise negative. Preliminary culture shows gram-negative rods in both bottles. Urine culture shows mixed gram-positive organisms suggestive of contamination. Patient is started on Rocephin 2 g daily is being continued. Patient seen by urologist Dr. Cooper. CT pelvis was done with IV contrast and reported as mildly heterogeneous prostate without evidence of mass or abscess. No periprosatic abnormality. Patient has leukocytosis but no lactic acidosis. Kidney function, creatinine 0.97. Patient was seen by ID recommended to continue antibiotic. 2. 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 disease status post stents: Stable. No chest pain. Home cardiac medications continued. #3 type 2 diabetes-: Accu-Chek last night shows 88. NPH insulin decreased to 20 units twice daily. Continue Accu-Chek and cover with NovoLog sliding scale. #4 restless legs #5 hypertension #6 chronic anxiety #7 hyperlipidemia DVT prophylaxis: On heparin 5000 units subcutaneous twice daily Microbiology Past 72 Hours 12/08/18 19:00 Urine, Clean Catch Urine Culture - Final Mixed Gram Positive Organisms 12/08/18 18:40 Blood Culture (Wb) - Left Forearm Blood Culture - Final 12/08/18 18:40 Blood Culture (Wb) - Right Wrist Blood Culture - Preliminary Gram negative saloni Laboratory Results 12/09/18 12:07: POC Glucose 223 H 12/09/18 15:58: POC Glucose 185 H 12/09/18 22:48: POC Glucose 139 H 12/10/18 06:49: POC Glucose 169 H 12/09/18 06:20: Sodium 137, Potassium 3.7, Chloride 104, Carbon Dioxide 25.0, Anion Gap 8, BUN 13, Creatinine 0.97, Estim Creat Clear Calc 71.49, Est GFR (MDRD) Af Amer 100, Est GFR (MDRD) Non-Af 82, BUN/Creatinine Ratio 13.5, Glucose 182 H, Calcium 8.2 L 12/09/18 06:20: WBC 15.6 H, RBC 4.68, Hgb 13.8, Hct 42.6, MCV 91.0, MCH 29.5, MCHC 32.4, RDW 13.5, RDW Differential 44.6 H, Plt Count 189, MPV 9.8, Immature Gran % (Auto) 0.200, Neut % (Auto) 84.5 H, Lymph % (Auto) 6.4 L, [place] % (Auto) 8.8, Eos % (Auto) 0.0, Baso % (Auto) 0.1, Absolute Neuts (auto) 13.2 H, Absolute Lymphs (auto) 1.00, Total Counted Not Reportable 12/09/18 07:58: POC Glucose 181 H 12/09/18 12:07: POC Glucose 223 H Clinical Impression(s) from Imaging Studies Chest X-Ray 12/08/18 18:44 IMPRESSION: No acute chest disease. Pelvis CT 12/09/18 10:10 IMPRESSION: 1. Mildly heterogenous prostate without evidence of mass or abscess. There is no periprosthetic abnormality. 2. Diverticulosis without acute inflammatory change or other evidence of pelvic abnormality. 3. Degenerative changes of the lumbar spine and hips. Code Visit Inpatient E&M: 17653 Subs Hosp L2
--- NOTE | 2018-12-10 11:08 | PN_ITS ---
Patient Problems: Active and Suspected Problems (Last Reviewed 12/09/18 @ 12:20 by Josue Cooper MD) Fever and chills (Acute) Generalized weakness (Acute) Subjective: Patient seen and examined. Patient is overall feeling better than yesterday with no fever or chills overnight. Urine flow is good. Denies incomplete emptying or perineal pain Vitals/I&O's: Vital Signs Temp Pulse Resp BP Pulse Ox 98.8 F 92 16 135/72 H 99 12/10/18 09:48 12/10/18 09:48 12/10/18 09:48 12/10/18 09:48 12/10/18 09:48 Oxygen Delivery Method Room Air Weight: 222 lb 7.143 oz Body Mass Index (BMI) 33.8 Intake and Output for Last 24 Hours 12/08/18 12/09/18 12/10/18 23:59 23:59 23:59 Intake Total 3819 / 3819 1580 / 1580 Balance 3819 / 3819 1580 / 1580 General: Alert, Oriented x3, Cooperative HEENT: Atraumatic, PERRLA, EOMI, Normocephalic Neck: Supple, No JVD, Negative Carotid Bruits Lungs: Clear to auscultation, Normal air movement, No rhonchi, No wheeze, No rales Cardiovascular: Regular rate, Regular Rhythm, Normal S1, Normal S2, No murmurs Abdomen: Bowel Sounds Present, Soft, Non Tender, Non-Distended, - - No perineal tenderness or scrotal tenderness. Extremities: No edema, Capillary Refill Less than 3 Seconds Skin: No rashes, No breakdown Musculoskeletal: No Tenderness to Palpation of Joints or Extremities, Arthritic Changes Neurological: Cranial nerves II-XII grossly intact Psych/Mental Status: Normal Affect, Appropriate Microbiology Past 72 Hours 12/08/18 19:00 Urine, Clean Catch Urine Culture - Final Mixed Gram Positive Organisms 12/08/18 18:40 Blood Culture (Wb) - Left Forearm Blood Culture - Final 12/08/18 18:40 Blood Culture (Wb) - Right Wrist Blood Culture - Preliminary Gram negative saloni Laboratory Results 12/09/18 12:07: POC Glucose 223 H 12/09/18 15:58: POC Glucose 185 H 12/09/18 22:48: POC Glucose 139 H 12/10/18 06:49: POC Glucose 169 H Current Medications Acetaminophen (Tylenol) 650 mg PO Q6H PRN PRN PRN Reason: Fever >101 Last Admin: 12/10/18 06:53 Dose: 650 mg Alprazolam (Xanax) 0.25 mg PO TID PRN PRN PRN Reason: ANXIETY/INSOMNIA Last Admin: 12/10/18 02:33 Dose: 0.25 mg Aspirin (Ecotrin) 81 mg PO DAILY@0800 [facility] Last Admin: 12/10/18 09:52 Dose: 81 mg Carvedilol (Coreg) 3.125 mg PO BID [facility] Last Admin: 12/10/18 09:53 Dose: 3.125 mg Cholecalciferol (Vitamin D) 2,000 unit PO BID [facility] Clopidogrel Bisulfate (Plavix) 75 mg PO DAILY [facility] Last Admin: 12/10/18 09:57 Dose: 75 mg Cyanocobalamin (Vitamin B12) 2,500 mcg PO DAILY [facility] Fluticasone Propionate (Flonase Nasal [place]) 1 spray NASAL DAILY PRN PRN Glyburide (Micronase) 2.5 mg PO DAILYCM [facility] Last Admin: 12/10/18 09:52 Dose: 2.5 mg Heparin Sodium (Porcine) (Heparin Na) 5,000 unit SC Q12 [facility] Last Admin: 12/10/18 09:53 Dose: 5,000 unit Ceftriaxone Sodium 2 gm/ (Sodium Chloride) 50 mls @ 100 mls/hr IV Q24 [facility] Last Admin: 12/09/18 10:06 Dose: 100 mls/hr Sodium Chloride () 250 mls @ 15 mls/hr IV .[id number] PRN PRN Reason: SALINE FLUSH Sodium Chloride () 1,000 mls @ 50 mls/hr IV .Q20H [facility] Last Admin: 12/09/18 11:30 Dose: 50 mls/hr Insulin Human Lispro (Humalog Kwikpen (Bkc)) 0 unit SC ACHS [facility]; Protocol Last Admin: 12/10/18 06:53 Dose: 2 u Insulin Human NPH (Humulin N (Bkc)) 20 units SC BID [facility] Last Admin: 12/10/18 09:55 Dose: 20 units Isosorbide Mononitrate (Imdur) 15 mg PO DAILY [facility] Last Admin: 12/10/18 09:56 Dose: 15 mg Losartan Potassium (Cozaar) 50 mg PO QHS [facility] Last Admin: 12/09/18 22:51 Dose: 50 mg Magnesium Hydroxide (Milk Of Magnesia) 30 ml PO DAILY PRN PRN PRN Reason: Constipation Magnesium Oxide (Mag-Ox 400) 400 mg PO DAILY [facility] Last Admin: 12/10/18 09:52 Dose: 1,000 mg Montelukast Sodium (Singulair) 10 mg PO QHS [facility] Nitroglycerin (Nitrostat) 0.4 mg SUBLINGUAL Q5M PRN PRN Reason: Angina pain Ondansetron HCl (Zofran) 4 mg IV Q6H PRN PRN PRN Reason: NAUSEA Last Admin: 12/10/18 02:33 Dose: 4 mg Pramipexole Dihydrochloride (Mirapex) 1 mg PO BID [facility] Last Admin: 12/10/18 09:57 Dose: 1 mg Pravastatin Sodium (Pravachol) 40 mg PO DAILY [facility] Last Admin: 12/10/18 09:57 Dose: 40 mg Sodium Chloride () 5 - 15 ml IV UD PRN PRN Reason: SALINE FLUSH Last Admin: 12/08/18 23:57 Dose: 5 ml Medical Necessity - Tobacco Use Smoking Status: Never smoker Tobacco Use: Non-smoker Assessment/Plan All Active Problems (Last Reviewed 12/09/18 @ 12:20 by Josue Cooper MD) Fever and chills (Acute) Generalized weakness (Acute) Acute ST elevation myocardial infarction (STEMI) involving left anterior descending coronary artery (Resolved) Atherosclerosis of [place] coronary artery of [place] heart without angina pectoris (Resolved) This 68-year-old male with history of STEMI, coronary artery disease status post 2 stents in 2017, diabetes mellitus type 2 and hypertension was admitted with high grade fever after prostatic nodule biopsy on 12/06 in outside facility in [place]. Patient denies lower urinary tract symptoms including burning micturition, increased frequency urgency or perineal pain/heaviness. Earlier he had streak of rectal bleed but currently not bleeding. 1. Gram-negative saloni bacteremia most likely secondary to acute prostatitis after prostatic nodule biopsy: UA reported as leukocyte esterase 25, WBC 0-5, occult blood otherwise negative. Preliminary culture shows gram-negative rods in both bottles. Urine culture shows mixed gram-positive organisms suggestive of contamination. Patient is started on Rocephin 2 g daily is being continued. Patient seen by urologist Dr. Cooper. CT pelvis was done with IV contrast and reported as mildly heterogeneous prostate without evidence of mass or abscess. No periprosatic abnormality. Patient has leukocytosis but no lactic acidosis. Kidney function, creatinine 0.97. Patient was seen by ID recommended to continue antibiotic. 2. 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 disease status post stents: Stable. No chest pain. Home cardiac medications continued. #3 type 2 diabetes-: Accu-Chek last night shows 88. NPH insulin decreased to 20 units twice daily. Continue Accu-Chek and cover with NovoLog sliding scale. #4 restless legs #5 hypertension #6 chronic anxiety #7 hyperlipidemia DVT prophylaxis: On heparin 5000 units subcutaneous twice daily Microbiology Past 72 Hours 12/08/18 19:00 Urine, Clean Catch Urine Culture - Final Mixed Gram Positive Organisms 12/08/18 18:40 Blood Culture (Wb) - Left Forearm Blood Culture - Final 12/08/18 18:40 Blood Culture (Wb) - Right Wrist Blood Culture - Preliminary Gram negative saloni Laboratory Results 12/09/18 12:07: POC Glucose 223 H 12/09/18 15:58: POC Glucose 185 H 12/09/18 22:48: POC Glucose 139 H 12/10/18 06:49: POC Glucose 169 H 12/09/18 06:20: Sodium 137, Potassium 3.7, Chloride 104, Carbon Dioxide 25.0, Anion Gap 8, BUN 13, Creatinine 0.97, Estim Creat Clear Calc 71.49, Est GFR (MDRD) Af Amer 100, Est GFR (MDRD) Non-Af 82, BUN/Creatinine Ratio 13.5, Glucose 182 H, Calcium 8.2 L 12/09/18 06:20: WBC 15.6 H, RBC 4.68, Hgb 13.8, Hct 42.6, MCV 91.0, MCH 29.5, MCHC 32.4, RDW 13.5, RDW Differential 44.6 H, Plt Count 189, MPV 9.8, Immature Gran % (Auto) 0.200, Neut % (Auto) 84.5 H, Lymph % (Auto) 6.4 L, [place] % (Auto) 8.8, Eos % (Auto) 0.0, Baso % (Auto) 0.1, Absolute Neuts (auto) 13.2 H, Absolute Lymphs (auto) 1.00, Total Counted Not Reportable 12/09/18 07:58: POC Glucose 181 H 12/09/18 12:07: POC Glucose 223 H Clinical Impression(s) from Imaging Studies Chest X-Ray 12/08/18 18:44 IMPRESSION: No acute chest disease. Pelvis CT 12/09/18 10:10 IMPRESSION: 1. Mildly heterogenous prostate without evidence of mass or abscess. There is no periprosthetic abnormality. 2. Diverticulosis without acute inflammatory change or other evidence of pelvic abnormality. 3. Degenerative changes of the lumbar spine and hips. Code Visit Inpatient E&M: 73132 Subs Hosp L2
[2018-12-10 11:45] LABS: Bedside Glucose 230 mg/dL (70-110)
[2018-12-10 11:58] LABS: Absolute Lymphocyte Count 1.31 X10^3/ul (0.83-4.51); Absolute Neutrophil Count 6.3 X10^3/uL (2.0-7.7); Basophil# 0.01 X10^3/uL; Basophil% 0.1 % (0-1); Eosinophil# 0.03 X10^3/uL; Eosinophils% 0.3 % (0-5); Hematocrit 40.7 % (40-54); Hemoglobin 13.3 g/dl (13.0-16.5); Lymphocyte # 1.31 X10^3/ul (4.0); Lymphocyte % 15.1 % (19-41); Mean Corp Hgb Conc 32.7 g/gl (32-36); Mean Corpuscular Hgb 29.6 pg (27.0-32.0); Mean Corpuscular Volume 90.4 fL (80-94); Mean Platelet Vol. 9.5 fl (6.2-12.0); Monocyte# 1.06 X10^3/uL; Monocyte% 12.2 % (0-10); Neutrophil # 6.25 X10^3/uL (2.7-7.7); Neutrophil % 72.2 % (47-70); POSITIVE COUNT NO; POSITIVE DIFFERENTIAL NO; POSITIVE MORPHOLOGY NO; Platelet Count 162 K/mm3 (150-450); RBC Distribution Width CV 13.4 % (11.6-14.6); RBC Distribution Width SD 44.4 fl (35.1-43.9); White Blood Count 8.7 K/mm3 (4.4-11.0)
--- NOTE | 2018-12-10 12:58 | PCM.PN.ID ---
Patient Problems: Active and Suspected Problems (Last Reviewed 12/09/18 @ 12:20 by Josue Cooper MD) Fever and chills (Acute) Generalized weakness (Acute) Subjective: Feeling better, no fever, no abd pain, no dysuria. - Physical Exam General: Alert, Cooperative, No apparent distress Lungs: Clear to auscultation, Normal air movement Cardiovascular: Regular rate, Regular Rhythm Abdomen: Soft, Non Tender, Non-Distended Skin: No rashes Vital Signs Temp Pulse Resp BP Pulse Ox 98.8 F 92 16 135/72 H 99 12/10/18 09:48 12/10/18 09:48 12/10/18 09:48 12/10/18 09:48 12/10/18 09:48 Oxygen Delivery Method Room Air Weight: 100.9 kg Body Mass Index (BMI) 33.8 Intake and Output for Last 24 Hours 12/08/18 12/09/18 12/10/18 23:59 23:59 23:59 Intake Total 3819 / 3819 2512 / 2512 Balance 3819 / 3819 2512 / 2512 Microbiology Past 72 Hours 12/08/18 19:00 Urine Culture - Final Urine, Clean Catch Mixed Gram Positive Organisms 12/08/18 18:40 Blood Culture - Final Blood Culture (Wb) - Left Forearm 12/08/18 18:40 Blood Culture - Preliminary Blood Culture (Wb) - Right Wrist Gram negative saloni Laboratory Tests Past 24 Hrs 12/10/18 11:35 WBC 8.7 RBC 4.50 L Hgb 13.3 Hct 40.7 MCV 90.4 MCH 29.6 MCHC 32.7 RDW 13.4 RDW Differential 44.4 H Plt Count 162 MPV 9.5 Immature Gran % (Auto) 0.100 Neut % (Auto) 72.2 H Lymph % (Auto) 15.1 L [place] % (Auto) 12.2 H Eos % (Auto) 0.3 Baso % (Auto) 0.1 Absolute Neuts (auto) 6.3 Absolute Lymphs (auto) 1.31 Total Counted Not Reportable POC Glucose 12/10/18 12/10/18 12/09/18 11:34 06:49 22:48 POC Glucose 230 H 169 H 139 H 12/09/18 15:58 POC Glucose 185 H Medical Necessity - Tobacco Use Smoking Status: Never smoker Tobacco Use: Non-smoker Route of nutrition/ use of supplements: [] Nutritional Intake: [] IV Site: [] Perez Catheter: [] - Assessment/Plan Antibiotics: [] Assessment/Plan: [] Active and Suspected Problems (Last Reviewed 12/09/18 @ 12:20 by Josue Cooper MD) Fever and chills (Acute) Generalized weakness (Acute) sepsis due to GNR bacteremia after prostate bx - he reports treated for 2 week of po abx about 3 months ago for urine/prostate infection. He is not sure what the cx was or what the abx were. Not in urology system, [facility]isa system, or [facility] system. Improved on ceftriaxone, will continue. Bcx with ecoli-like. Tentative plan if he continues to improve would be home tomorrow on one more week of omnicef 300mg bid (may need to be changed based on final Bcx results). Will follow, d/w Dr. Dukes.
[2018-12-10 13:59] VITALS: BP 110/68; PULSE 90; RESP 18; TEMP 37.2; O2SAT 93
[2018-12-10] MEDS: Magnesium Oxide 400 MG Tablet PO (14:03)
[2018-12-10] MEDS: Cyanocobalamin 500 MCG Tablet 2500 MCG PO (14:03)
[2018-12-10 16:25] LABS: Bedside Glucose 152 mg/dL (70-110)
[2018-12-10 20:00] VITALS: BP 138/79; PULSE 101; RESP 16; TEMP 37.5; O2SAT 95
[2018-12-10] MEDS: Insulin NPH Human 100 UNITS/ML PEN 25 UNITS SC (21:37)
[2018-12-10] MEDS: Montelukast 10 MG Tablet PO (21:40)
[2018-12-10] MEDS: Losartan Potassium 50 MG Tablet PO (21:40)
[2018-12-10 21:50] LABS: Bedside Glucose 173 mg/dL (70-110)
[2018-12-11 03:00] VITALS: BP 118/70; PULSE 98; RESP 18; TEMP 37.6; O2SAT 95
[2018-12-11] MEDS: Acetaminophen 325 MG Tablet 650 MG PO (03:40)
[2018-12-11] MEDS: Insulin Lispro 100 UNIT/ML INSULN.PEN SC ×2 (06:31→11:32)
[2018-12-11 06:35] LABS: Bedside Glucose 171 mg/dL (70-110)
[2018-12-11 06:54] LABS: Absolute Lymphocyte Count 1.13 X10^3/ul (0.83-4.51); Absolute Neutrophil Count 5.8 X10^3/uL (2.0-7.7); Basophil# 0.01 X10^3/uL; Basophil% 0.1 % (0-1); Eosinophil# 0.07 X10^3/uL; Eosinophils% 0.9 % (0-5); Hematocrit 41.6 % (40-54); Hemoglobin 13.6 g/dl (13.0-16.5); Lymphocyte # 1.13 X10^3/ul (4.0); Mean Corp Hgb Conc 32.7 g/gl (32-36); Mean Corpuscular Hgb 28.8 pg (27.0-32.0); Mean Corpuscular Volume 88.1 fL (80-94); Mean Platelet Vol. 10.3 fl (6.2-12.0); Monocyte# 1.06 X10^3/uL; Monocyte% 13.1 % (0-10); Neutrophil # 5.81 X10^3/uL (2.7-7.7); Neutrophil % 71.8 % (47-70); Platelet Count 185 K/mm3 (150-450); RBC Distribution Width CV 13.4 % (11.6-14.6); RBC Distribution Width SD 42.8 fl (35.1-43.9); Red Blood Count 4.72 M/mm3 (4.6-6.2); White Blood Count 8.1 K/mm3 (4.4-11.0)
[2018-12-11 06:58] LABS: POSITIVE COUNT NO; POSITIVE DIFFERENTIAL NO; POSITIVE MORPHOLOGY NO
--- NOTE | 2018-12-11 07:37 | DCINST_ITS ---
- Discharge Diagnoses Current Active Problems: Current Active and Chronic Problems (Last Reviewed 12/09/18 @ 12:20 by Josue Cooper MD) Fever and chills (Acute) Generalized weakness (Acute) You will use the following diet at home:: Calorie/Carbohydrate Controlled (specify 1200, 1400, etc) - 1800 ADA diet Your food should be the consistency of: Regular Discharge Activity: May Not Drive - for 2 days Weight Bearing Status: Weight bearing as tolerated Call your doctor if you observe: Fever of 101 or Higher, Inability to have a bowel movement, Shortness of breath, Dizziness, Fainting spells, Increased palpitations (irregular heartbeat) Additional Instructions: follow up [facility] Urologist in 1-2 weeks Allergies/Adverse Reactions: Allergies Penicillins Allergy (Severe, Verified 05/10/18 11:09) Shortness of breath quinine sulfate [From Quine] Allergy (Severe, Verified 12/08/18 22:03) passed out benzocaine [From Cetacaine] Allergy (Verified 05/10/18 11:09) Swelling butamben [From Cetacaine] Allergy (Verified 05/10/18 11:09) Swelling ciprofloxacin HCl [From Cipro] Allergy (Verified 05/10/18 11:09) Hives TONGUE SWELLS clarithromycin [From Biaxin] Allergy (Verified 05/10/18 11:09) Swelling exenatide [From [place]] Allergy (Verified 05/10/18 11:09) Rash folic acid [From Proferrin-Forte] Allergy (Verified 05/10/18 11:09) Rash hyoscyamine sulfate [From Levsin] Allergy (Verified 05/10/18 11:09) Rash iron heme polypeptide [From Proferrin-Forte] Allergy (Verified 12/08/18 22:03) tongue swelling naproxen [From Naprosyn] Allergy (Verified 05/10/18 11:09) Rash tetracaine [From Cetacaine] Allergy (Verified 12/08/18 22:03) throat swelled shut venlafaxine HCl [From Effexor] Allergy (Verified 12/08/18 22:03) tongue swelling procainamide Adverse Reaction (Severe, Verified 05/10/18 11:09) Anaphylactic/Resp. Distress atorvastatin calcium [From Lipitor] Adverse Reaction (Intermediate, Verified 05/10/18 11:09) Mylagias rosuvastatin calcium [From Crestor] Adverse Reaction (Intermediate, Verified 05/10/18 11:09) Myalgias diphenhydramine HCl [From Benadryl] Adverse Reaction (Verified 12/08/18 22:03) Restlessness aspergillus Adverse Reaction (Severe, Uncoded 10/07/17 11:07) Unknown niaspan Adverse Reaction (Severe, Uncoded 10/07/17 11:08) Unsure Medications to take at Discharge ALPRAZolam [Xanax] 0.25 mg PO DAILY 01/17/16 Fluticasone Propionate [Flonase Allergy Relief] 9.9 ml NS DAILY 01/17/16 Metformin HCl [Glucophage] 1,000 mg PO BIDCM 01/17/16 Montelukast [Singulair] 10 mg PO QHS 01/17/16 Acetaminophen [Tylenol Tablet] 325 - 650 mg PO Q6H PRN PRN tab 07/14/17 Aspirin E.C. [Ecotrin] 81 mg PO DAILY@0800 #30 tab 07/14/17 carvedilol 3.125 mg tablet 3.125 mg PO BID #180 tab 05/04/18 buspirone 10 mg tablet 10 mg PO TID tab 05/07/18 pramipexole 1 mg tablet 2 mg PO QHS 05/07/18 isosorbide mononitrate ER 30 mg tablet,extended release 24 hr 15 mg PO DAILY #45 tab 06/16/18 losartan 50 mg tablet 50 mg PO QHS #90 tab 06/16/18 pravastatin 40 mg tablet 40 mg PO DAILY #90 tab 06/16/18 glyburide 2.5 mg tablet 2.5 mg PO DAILY 07/02/18 nitroglycerin 0.4 mg sublingual tablet 0.4 mg SUBLINGUAL Q5M PRN #25 tab 10/12/18 Cholecalciferol (Vitamin D3) [D3-2000] 2,000 unit PO BID 12/08/18 Clopidogrel Bisulfate [Plavix] 75 mg PO DAILY 12/08/18 Magnesium Oxide [Magnesium] 400 mg PO DAILY 12/08/18 Ubidecarenone [Coenzyme Q10] 100 mg PO DAILY 12/08/18 Vitamin B12 2,500 mcg PO DAILY 12/08/18 Cefdinir 300 mg PO BID #14 capsule 12/11/18 Insulin NPH Human Isophane [Novolin N] 30 unit SQ BID #0 12/11/18 The following prescriptions were given: Cefdinir 300 mg PO BID #14 capsule Primary Care Physician: Maya Pradhan DO [Primary Care Provider] - Please follow up with your Primary Care Physician in: in 2 weeks Test Results: Test results from this visit will be discussed in further detail at your follow- up appointment, if applicable. Please Follow Up With: Alfonso Jade MD When: in 2-3 weeks if needed like fever
[2018-12-11] MEDS: glyBURIDE 2.5 MG Tablet PO (08:37)
[2018-12-11] MEDS: Aspirin E.C. 81 MG Tablet PO (08:37)
[2018-12-11] MEDS: metFORMIN HCl 1,000 MG Tablet 1000 MG PO (08:37)
[2018-12-11 08:41] VITALS: BP 137/73; PULSE 101; RESP 20; TEMP 37; O2SAT 93
[2018-12-11 08:50] VITALS: PULSE 101
--- NOTE | 2018-12-11 09:37 | PCM.DC.SUM ---
Discharge Date and Diagnosis Date of Admission: 12/08/18 Date of Discharge: 12/11/18 - Primary Discharge Diagnosis Active and Suspected Problems (Last Reviewed 12/09/18 @ 12:20 by Josue Cooper MD) Fever and chills (Acute) Generalized weakness (Acute) - Secondary Discharge Diagnosis Chronic Problems (Last Reviewed 12/09/18 @ 12:20 by Josue Cooper MD) Stented coronary artery (Chronic 07/11/17) 90% occlusion, thrombectomy post anterior STEMI:ALEXANDRO to LAD 3.0 X [address] Etienne [facility] Atherosclerotic heart disease of [place] coronary artery without angina pectoris (Chronic 07/11/17) 90% occlusion, thrombectomy post anterior STEMI:ALEXANDRO to LAD 3.0 X [address] Etienne [facility] History of ST elevation myocardial infarction (STEMI) (Chronic 07/11/17) Anterior Hypertension (Chronic) Anxiety (Chronic) Diabetes mellitus, type 2 (Chronic) Hyperlipidemia (Chronic) Restless legs (Chronic) 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.9) (Chronic) IBS (irritable bowel syndrome) (Chronic) Asthma (Chronic) Hospital Course and Treatment Summary of Care Provided: [] This 68-year-old male with history of STEMI, coronary artery disease status post 2 stents in 2017, diabetes mellitus type 2 and hypertension was admitted with high grade fever after prostatic nodule biopsy on 12/06 in outside facility in [place]. Patient denies lower urinary tract symptoms including burning micturition, increased frequency urgency or perineal pain/heaviness. Earlier he had streak of rectal bleed but currently not bleeding. 1. Gram-negative saloni bacteremia most likely secondary to acute prostatitis after prostatic nodule biopsy: UA reported as leukocyte esterase 25, WBC 0-5, occult blood otherwise negative. Blood culture grew E. coli which is sensitive to ceftriaxone and cefazolin. Urine culture shows mixed gram-positive organisms suggestive of contamination. Patient is started on Rocephin 2 g daily is being continued. Patient seen by urologist Dr. Cooper. CT pelvis was done with IV contrast and reported as mildly heterogeneous prostate without evidence of mass or abscess. No periprosatic abnormality. Patient has leukocytosis that resolved. No lactic acidosis. Kidney function, creatinine 0.97. Patient was seen by ID and recommended cefdinir 300 mg twice daily for 7 more days. Prescription was given. 2. 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 disease status post stents: Stable. No chest pain. Home medications continued. #3 type 2 diabetes-: . Patient on NPH insulin which was decreased. #4 restless legs #5 hypertension #6 chronic anxiety #7 hyperlipidemia DVT prophylaxis: On heparin 5000 units subcutaneous twice daily. Discharge medication reconciliation done. Discharge follow-up instructions completed. Discharge process discussed with the patient and all questions were answered to patient's satisfaction. Patient was advised to follow-up with his urologist, Isaias in 2 weeks. Follow-up PCP in 2 weeks Total time spent, exact 35 minutes on discharge meds reconciliation, examination, review of imaging and blood test and discussion with the patient on follow-up instructions. Subjective: Patient did not had any fever or chills. No hematuria/other lower urinary tract symptoms including pyuria or increased frequency. - Physical Exam General: Alert, Oriented x3, Cooperative HEENT: Atraumatic, PERRLA, EOMI, Normocephalic Neck: Supple, No JVD, Negative Carotid Bruits Lungs: Clear to auscultation, Normal air movement, No rhonchi, No wheeze, No rales Cardiovascular: Regular rate, Regular Rhythm, Normal S1, Normal S2, No murmurs Abdomen: Bowel Sounds Present, Soft, Non Tender, Non-Distended Extremities: No edema, Capillary Refill Less than 3 Seconds Skin: No rashes, No breakdown Musculoskeletal: No Tenderness to Palpation of Joints or Extremities, Arthritic Changes Lymphatic: No Cervical, Supraclavicular, or Inguinal Adenopathy Neurological: Cranial nerves II-XII grossly intact, Deep Tendon Reflexes 2+/4 and Symmetrical, Neuro grossly intact Psych/Mental Status: Normal Affect, Appropriate Vital Signs Temp Pulse Resp BP Pulse Ox 99.6 F H 98 18 118/70 95 12/11/18 03:00 12/11/18 03:00 12/11/18 03:00 12/11/18 03:00 12/11/18 03:00 Oxygen Delivery Method Room Air Weight: 222 lb 7.143 oz Body Mass Index (BMI) 33.8 Intake and Output for Last 24 Hours 12/09/18 12/10/18 12/11/18 23:59 23:59 23:59 Intake Total 3819 / 3819 2547 / 2547 1500 / 1500 Balance 3819 / 3819 2547 / 2547 1500 / 1500 Microbiology Past 72 Hours 12/08/18 18:40 Blood Culture - Preliminary Blood Culture (Wb) - Right Wrist Escherichia coli 12/08/18 19:00 Urine Culture - Final Urine, Clean Catch Mixed Gram Positive Organisms 12/08/18 18:40 Blood Culture - Final Blood Culture (Wb) - Left Forearm Laboratory Tests Past 24 Hrs 12/10/18 12/11/18 11:35 06:07 WBC 8.7 8.1 RBC 4.50 L 4.72 Hgb 13.3 13.6 Hct 40.7 41.6 MCV 90.4 88.1 MCH 29.6 28.8 MCHC 32.7 32.7 RDW 13.4 13.4 RDW Differential 44.4 H 42.8 Plt Count 162 185 MPV 9.5 10.3 Immature Gran % (Auto) 0.100 0.100 Neut % (Auto) 72.2 H 71.8 H Lymph % (Auto) 15.1 L 14.0 L [place] % (Auto) 12.2 H 13.1 H Eos % (Auto) 0.3 0.9 Baso % (Auto) 0.1 0.1 Absolute Neuts (auto) 6.3 5.8 Absolute Lymphs (auto) 1.31 1.13 Total Counted Not Reportable Not Reportable POC Glucose 12/11/18 12/10/18 12/10/18 06:29 21:33 16:12 POC Glucose 171 H 173 H 152 H 12/10/18 11:34 POC Glucose 230 H Home Medications: Medications to take at Discharge ALPRAZolam [Xanax] 0.25 mg PO DAILY 01/17/16 Fluticasone Propionate [Flonase Allergy Relief] 9.9 ml NS DAILY 01/17/16 Metformin HCl [Glucophage] 1,000 mg PO BIDCM 01/17/16 Montelukast [Singulair] 10 mg PO QHS 01/17/16 Acetaminophen [Tylenol Tablet] 325 - 650 mg PO Q6H PRN PRN tab 07/14/17 Aspirin E.C. [Ecotrin] 81 mg PO DAILY@0800 #30 tab 07/14/17 carvedilol 3.125 mg tablet 3.125 mg PO BID #180 tab 05/04/18 buspirone 10 mg tablet 10 mg PO TID tab 05/07/18 pramipexole 1 mg tablet 2 mg PO QHS 05/07/18 isosorbide mononitrate ER 30 mg tablet,extended release 24 hr 15 mg PO DAILY #45 tab 06/16/18 losartan 50 mg tablet 50 mg PO QHS #90 tab 06/16/18 pravastatin 40 mg tablet 40 mg PO DAILY #90 tab 06/16/18 glyburide 2.5 mg tablet 2.5 mg PO DAILY 07/02/18 nitroglycerin 0.4 mg sublingual tablet 0.4 mg SUBLINGUAL Q5M PRN #25 tab 10/12/18 Cholecalciferol (Vitamin D3) [D3-2000] 2,000 unit PO BID 12/08/18 Clopidogrel Bisulfate [Plavix] 75 mg PO DAILY 12/08/18 Magnesium Oxide [Magnesium] 400 mg PO DAILY 12/08/18 Ubidecarenone [Coenzyme Q10] 100 mg PO DAILY 12/08/18 Vitamin B12 2,500 mcg PO DAILY 12/08/18 Cefdinir 300 mg PO BID #14 capsule 12/11/18 Insulin NPH Human Isophane [Novolin N] 30 unit SQ BID #0 12/11/18 Following Prescrptions Were Given to Patient: Cefdinir 300 mg PO BID #14 capsule Primary Care Physician: Maya Pradhan DO [Primary Care Provider] - Medical Necessity - Tobacco Use Smoking Status: Never smoker Tobacco Use: Non-smoker Meaningful Use Info Meaningful Use Diagnoses (Choose all that apply): None applicable Code Visit Inpatient E&M: 13610 [facility] H[facility]
[2018-12-11] MEDS: 0.9% NaCl Peripheral Flush Adult/Peds IV (10:14)
[2018-12-11] MEDS: Heparin Injection (Vial) 5,000 UNIT/ML VIAL 5000 UNIT SC (10:19)
[2018-12-11] MEDS: Carvedilol 3.125 MG TABLET PO (10:19)
[2018-12-11] MEDS: Isosorbide Mononitrate 30 MG Tablet 15 MG PO (10:20)
[2018-12-11] MEDS: Pramipexole Di-HCl 1 MG Tablet PO (10:21)
[2018-12-11] MEDS: Clopidogrel Bisulfate 75 MG Tablet PO (10:21)
[2018-12-11] MEDS: Pravastatin 40 MG Tablet PO (10:21)
[2018-12-11] MEDS: Magnesium Oxide 400 MG Tablet PO (10:21)
[2018-12-11] MEDS: Cyanocobalamin 500 MCG Tablet 2500 MCG PO (10:22)
[2018-12-11] MEDS: Insulin NPH Human 100 UNITS/ML PEN 25 UNITS SC (10:27)
[2018-12-11 11:50] LABS: Bedside Glucose 226 mg/dL (70-110)
[2018-12-11 12:42] VITALS: BP 127/67; PULSE 100; RESP 20; TEMP 37.1; O2SAT 99
--- NOTE | 2018-12-14 16:23 | CASEMGMT ---
MYRA MENDOZA DC PHONE CALL DC DATE: 12/11/18 DC Disposition: Home LACE/STRATA: 07/17 Intro role of CM to patient via phone. Pt states he has no questions re: prescriptions, follow up or medications. States the antibiotic is giving him diarrhea but he has contacted his doctor and was instructed to bring a sample in tomorrow for testing. Pt had questions re: receiving a bill to give to insurance. Information given for PFS and pt states he will contact them tomorrow. No further questions. Allison Awad RN ACM
== END 2018-12-11 13:15 | disposition home or self-care (01) | DRG 862 ==
LOC: ED 18:56 → MS2 21:13
PROVIDERS: Admitting Provider Internal Medicine; Emergency Provider Emergency Medicine; Family Provider Family Medicine; PCP Family Medicine; Visit Provider Internal Medicine
DX: T81.44XA Sepsis following a procedure, initial encounter (principal); A41.51 Sepsis due to Escherichia coli [E. coli]; N41.0 Acute prostatitis; T81.40XA Infection following a procedure, unspecified, initial encounter; B96.20 Unspecified Escherichia coli [E. coli] as the cause of diseases classified elsewhere; D72.829 Elevated white blood cell count, unspecified; I25.10 Atherosclerotic heart disease of native coronary artery without angina pectoris; Z95.5 Presence of coronary angioplasty implant and graft; E11.9 Type 2 diabetes mellitus without complications; I10 Essential (primary) hypertension; F41.9 Anxiety disorder, unspecified; E78.5 Hyperlipidemia, unspecified; G25.81 Restless legs syndrome; I25.2 Old myocardial infarction; J45.909 Unspecified asthma, uncomplicated; Z79.4 Long term (current) use of insulin; Z79.82 Long term (current) use of aspirin; Z79.899 Other long term (current) drug therapy; E66.9 Obesity, unspecified; Z68.33 Body mass index [BMI] 33.0-33.9, adult
CPT/HCPCS: 36415; 71046; 72193; 80048; 81001; 82962; 83605; 85025; 87040; 87077; 87086; 87088; 87186; 99282; J7030; Q9967; A4216; J0696; J2405

== ENCOUNTER → 2018-12-15 06:49 | Outpatient (CLI) | payer MEDICARE, SELFPAY ==
[2018-12-08 21:36] VITALS: BMI 33.8
[2018-12-15 09:39] LABS: AST(SGOT) 37 U/L (15-37); Alanine Aminotransfer ALT/SGPT 77 U/L (16-61); Albumin, Serum 3.4 g/dL (3.2-5.0); Alkaline Phosphatase 48 U/L (45-117); Bilirubin, Direct 0.13 mg/dL (0.00-0.30); Cholesterol 176 mg/dL (200); Globulin 4.2 g/dL (2.2-4.2); High Density Lipoprotein 36 mg/dL; Protein, Total 7.6 g/dL (6.4-8.2); Triglycerides 143 mg/dL; Very Low Density Lipoprotein 29 mg/dL (5-40)
[2018-12-18 14:07] LABS: Testosterone, Free 5.17 ng/dL (5.00-21.00)
[2018-12-18 14:35] LABS: Testosterone, % Free 2.36 % (1.50-4.20); Testosterone, Total 219 ng/dL (264-916)
== END ==
PROVIDERS: Family Provider Family Medicine; PCP Family Medicine; Referring Provider Physician Assistant Medical; Visit Provider Physician Assistant Medical
DX: N52.9 Male erectile dysfunction, unspecified (principal); E78.00 Pure hypercholesterolemia, unspecified; I10 Essential (primary) hypertension; I25.10 Atherosclerotic heart disease of native coronary artery without angina pectoris
CPT/HCPCS: 36415; 80061; 80076; 84402; 84403

== ENCOUNTER → 2019-01-05 | Outpatient (CLI) | payer MEDICARE, SELFPAY ==
[2018-12-17 14:36] VITALS: BMI 33.8
--- NOTE | 2019-01-05 07:44 | ECHOCS_ITS ---
Reason For Study: DYSPNEA/SOB Procedure This was a 2D Doppler, Color Flow transthoracic echocardiogram. Exam performed in department. Left Ventricle Normal size and thickness. The estimated ejection fraction is 65 %. Stage 1 diastolic dysfunction. No regional wall motion abnormalities noted. Right Ventricle Normal size and thickness. Normal systolic function. Atria Normal left atrium. Normal right atrium. Normal atrial septum. Mitral Valve The mitral valve is structurally normal. No prolapse or stenosis seen. Tricuspid Valve Normal tricuspid valve. Unable to estimate RV systolic pressure due to inadequate jet, pulmonary artery pressure probably normal. Aortic Valve Normal aortic valve. Trisinus/trileaflet aortic valve. Pulmonic Valve Normal pulmonic valve. Great Vessels Normal aortic root. Normal arch. Normal inferior vena cava. Inferior vena cava collapse with sniff. Pericardium/Pleural No pericardial effusion. Medication 22 gauge I.V. with prn adaptor inserted into right arm. Diluted definity 4ml given slow IV push to enhance endocardial definition. MMode/2D Measurements & Calculations LVIDd: 4.2 cm IVSd: 1.1 cm Ao root diam: 3.4 cm LVIDs: 2.9 cm LVPWd: 1.1 cm FS: 30.5 % LAV(MOD-bp): 36.9 ml LVAd ap4: 30.7 cm2 SV(MOD-sp4): 55.8 ml LAV(MOD-bp) Indexed: 17.2 ml/m2 EDV(MOD-sp4): 100.5 ml LAV(MOD-sp2): 38.7 ml EDV(sp4-el): 105.7 ml LAV(MOD-sp4): 35.0 ml LVAs ap4: 18.6 cm2 ESV(MOD-sp4): 44.7 ml ESV(sp4-el): 47.7 ml EF(MOD-sp4): 55.5 % EF(sp4-el): 54.8 % SV(sp4-el): 58.0 ml LA A4 area: 14.4 cm2 LA dimension(2D): 3.8 cm RA A4 area: 10.7 cm2 Time Measurements MV dec time: 0.38 sec Doppler Measurements & Calculations MV E max cuco: 50.5 cm/sec Lat Peak E' Cuco: 9.4 cm/sec Med Peak E' Cuco: 6.1 cm/sec MV A max cuco: 87.9 cm/sec E/E' lat: 5.4 E/E' med: 8.2 MV E/A: 0.57 Ao V2 max: 117.5 cm/sec LV V1 max: 110.7 cm/sec PA V2 max: 84.1 cm/sec Ao max P.5 mmHg LV V1 max P.9 mmHg Interpretation Summary The estimated ejection fraction is 65 %. Stage 1 diastolic dysfunction. Unable to estimate RV systolic pressure due to inadequate jet, pulmonary artery pressure probably normal. Compared to echo report dated 07/13/2017, LV function has normalized from 45% to 60%. The study was technically difficult. Contrast injection was performed. Ordering Physician: Carlos Eduardo Hinds/Ricardo Etienne Referring Physician: ASYA HANCOCK Performed By: Daniela House RDCS
== END | disposition home or self-care (01) ==
PROVIDERS: Family Provider Family Medicine; PCP Family Medicine; Referring Provider Nurse Practitioner Family; Visit Provider Nurse Practitioner Family
DX: I25.10 Atherosclerotic heart disease of native coronary artery without angina pectoris (principal); R06.09 Other forms of dyspnea; Z95.5 Presence of coronary angioplasty implant and graft
CPT/HCPCS: 93306; Q9957; A4216; C8929

== ENCOUNTER → 2019-01-07 | Outpatient (CLI) | payer MEDICARE, SELFPAY ==
[2018-12-17 14:36] VITALS: BMI 33.8
== END | disposition home or self-care (01) ==
LOC: BFHLAB 10:04
PROVIDERS: Family Provider Family Medicine; PCP Family Medicine; Visit Provider Family Medicine
DX: N39.0 Urinary tract infection, site not specified (principal); R50.9 Fever, unspecified
CPT/HCPCS: 36415; 87040; 87086

== ENCOUNTER → 2019-03-04 | Outpatient (CLI) | payer MEDICARE, SELFPAY ==
[2018-12-17 14:36] VITALS: BMI 33.8
--- NOTE | 2019-03-04 12:57 | RAD_ITS ---
STUDY: X-RAY CHEST REASON FOR EXAM: Male, 68 years old. Cough. TECHNIQUE: PA and lateral views of the chest. COMPARISON: December 08, 2018 FINDINGS: There is no new focal consolidation. Normal size heart. Normal mediastinum and calin. Normal visualized pulmonary arteries. Normal visualized aortic arch and descending thoracic aorta. There are diffuse degenerative changes of the visualized thoracic spine. Normal visualized ribs, clavicles, and shoulders. There is no demonstrated abnormality of the visualized soft tissue structures of the upper abdomen. RAD/Chest PA and Lateral IMPRESSION: No acute cardiopulmonary process. Electronically Signed: Danyelle Hayes MD at 17:17 EDT Tel , Service support ,
== END | disposition home or self-care (01) ==
LOC: HPRAD 12:55
PROVIDERS: Family Provider Family Medicine; PCP Family Medicine; Referring Provider Family Medicine; Visit Provider Family Medicine
DX: R05 Cough (principal); J45.909 Unspecified asthma, uncomplicated
CPT/HCPCS: 71046

== ENCOUNTER → 2019-04-04 | Outpatient (CLI) | payer MEDICARE, SELFPAY ==
[2019-03-18 10:20] VITALS: BMI 34.3
--- NOTE | 2019-04-04 10:09 | STEWCON_ITS ---
Reason For Study: CAD Stress Results Protocol: Edwin Protocol Maximum Predicted HR: 153 bpm Target HR: 130 bpm % Maximum Predicted HR: 94 % DurationHeart Rate Stage (mm:ss) (bpm) BP Comment Baseline 99 132/70No Chest Pain; Definity 3 ML Given Edwin Protocol Stage I 3:00 130 146/60No Chest Pain; Mild Dyspnea Edwin Protocol Stage II 3:00 144 160/64No Chest Pain; Moderate Dyspnea Recovery 93 124/66No Chest Pain Stress Duration: 6:00 mm:ss Maximum Stress HR: 144 bpm METS: 7 Baseline Echocardiogram Findings The estimated ejection fraction is 65 %. Stress Echo Wall motion Data Resting WM Intermediate WM Stress WM Resting Wall Motion Wall Motion Stress Mid-Anterior : Mildly No regional wall motion hypokinetic. abnormalities noted. Anterior [place] : Mildly hypokinetic. EKG Data The baseline ECG displays normal sinus rhythm. The patient exercised according to the regular Edwin protocol for a total duration of 6:00. The maximum heart rate attained was 153 beats per minute. This was 100% of maximum predicted heart rate. The patient exercised into stage 3 of the Edwin protocol. During stress, there were no ST or T wave changes noted to suggest ischemia. No clinical angina was noted. Interpretation Summary The estimated ejection fraction is 65 %. Normal, adequate, treadmill echocardiogram. Negative for ischemia by EKG and echocardiographic criteria. No anginal symptoms noted. Below average exercise capacity for age. The patient appeared to have baseline anterior apical hypokinesis, which contracted normally at peak exercise. Rare PVCs noted. Appropriate blood pressure response to exercise. Final LVEF of 70%. Test terminated due to dyspnea which may be an anginal equivalent. The study was technically difficult. Contrast injection was performed. Ordering Physician: Ricardo Etienne Referring Physician: Maya Pradhan Performed By: Caren Ruby, RDCS, RVT
== END | disposition home or self-care (01) ==
LOC: CVS 10:08
PROVIDERS: Family Provider Family Medicine; PCP Family Medicine; Referring Provider Internal Medicine Cardiovascular Disease; Visit Provider Internal Medicine Cardiovascular Disease
DX: I25.10 Atherosclerotic heart disease of native coronary artery without angina pectoris (principal); I25.2 Old myocardial infarction; E78.5 Hyperlipidemia, unspecified; Z95.5 Presence of coronary angioplasty implant and graft
CPT/HCPCS: 93017; 93350; Q9957; A4216; C8928

== ENCOUNTER 2019-04-13 07:50 | Day surgery (SDC) | payer MEDICARE, SELFPAY ==
[2019-03-18 10:20] VITALS: BMI 34.3
[2019-04-05 08:39] LABS: Hematocrit 44.3 % (40-54); Hemoglobin 14.2 g/dL (13.0-16.5); Mean Corp Hgb Conc 32.1 g/dL (32-36); Mean Corpuscular Hgb 28.7 pg (27.0-32.0); Mean Corpuscular Volume 89.5 fL (80-94); Mean Platelet Vol. 9.9 fl (6.2-12.0); Platelet Count 229 K/mm3 (150-450); RBC Distribution Width CV 13.4 % (11.6-14.6); RBC Distribution Width SD 43.4 fl (35.1-43.9); Red Blood Count 4.95 M/mm3 (4.6-6.2); White Blood Count 7.1 K/mm3 (4.4-11.0)
[2019-04-05 08:52] LABS: Prothrombin Time (Protime)PT. 12.7 SECONDS (11.7-14.9)
[2019-04-05 08:53] LABS: Partial Thromboplast Time 28.7 Seconds (24.1-36.2)
[2019-04-05 09:16] LABS: Anion Gap 7 (5-15); BUN 18 mg/dL (7-18); BUN/Creat Ratio 20.8 RATIO (10-20); Calcium,Total 9.4 mg/dL (8.5-10.1); Chloride 102 mmol/L (98-107); Creatinine, Serum 0.86 mg/dL (0.70-1.30); EST Glomerular Filtration Rate 94 mL/min (>60); Est Glom Filt Rate - Afr Amer 113 mL/min (>60); Glucose 213 mg/dL (74-106); Potassium 4.2 mmol/L (3.5-5.1); Sodium Level 139 mmol/L (136-145)
[2019-04-13] VITALS (21 sets, daily range): BP systolic 112–146; BP diastolic 66–92; PULSE 74–94; RESP 13–32; TEMP 36.6–37.1; O2SAT 91–98; BMI 33.4; BMI 33.2; BMI 33.3
--- NOTE | 2019-04-13 09:52 | CL.I_ITS ---
Patient Name: BLANCA GILL Study Date: 04/13/2019 Performing: Ricardo Etienne MD Ht: 68 inches 172.72 cm : 1950 Wt: 220.9 lbs 100.06 kg Age: 68 Gender: male BSA: 2.13 PROCEDURE(S) PERFORMED OQ49-SSY/LHC/COR/LV [id number] W OR WO PTCA, SINGLE CORONARY ARTERY CLINICAL PROFILE AND CO-MORBIDITIES Indications: Stable Known CAD, LV Dysfunction, Other; ABNL stress test, dyspnea on exertion Heart Failure: NYHA Class: 1, Newly Diagnosed: No, Heart Failure Type: Systolic Stress/Imaging Stress Echocardiogram: Yes Result: Positive Low Risk Stress Echocardiogram: Positi ve Low Risk CAD Presentations: Other: Dyspnea on exertion Comorbidities/Risk Factors: Hypertension Dyslipidemia Prior PCI Diabetes Mellitus: Diabetes Therapy: Oral Diabetes Mellitus: Diabetes Therapy: Insulin CONCLUSIONS The patient has normal pulmonary hemodynamics. Successful PTCA/ALEXANDRO mid LAD with a 2.25 x 38 Promus Synergy, post dilated with various atmospheres wi th a 3.0 x 8 NC balloon throughout in order to sculpt the stent for proper apposition; 75%-->0%, no d issection. RECOMMENDATIONS Highly recommend quitting all tobacco products Follow up with primary plush finisher Risk factor modification ASA Indefinitley Plavix for at least 12 months Routine post interventional care Refer for Outpatient Cardiac Rehab Manual sheath removal per protocol Follow up with Dr. Etienne Successful Mynx Control closure of RFA. DESCRIPTION OF PROCEDURE The patient arrived to the procedure lab. The risks and benefits of the procedure as well as a full d escription of our services here and lack of surgical backup were fully explained to the patient and/o r their significant other prior to the catheterization. The Timeout was completed, verifying the rangel ect patient and procedure. The patient's procedural site was prepped and draped in the usual fashion. Local anesthetic was given subcutaneously to right groin region with Lidocaine 2%. Using a modified Seldinger technique, arterial access was obtained via the right femoral artery, a 4Fr sheath was inse rted. Venous access was obtained via the right femoral vein, a 7Fr sheath was inserted. A 7Fr thermal dilution catheter was inserted and right heart pressures were recorded, it was then advanced to PA p osition for cardiac outputs. Thermal dilution cardiac outputs were then recorded. O2 saturations were then obtained. The Thermal dilution catheter was then removed. Left Ventriculography was performed in MULTANI projection using a 4 Fr. Pigtail catheter. LV to AO pullback pressures were then rec orded. Left Coronary Artery selective angiography was performed in multiple views using a 4 Fr. JL5 c atheter. Right Coronary Artery selective angiography was then performed in multiple views using a 4 F r. 3DRC catheter Arterial sheath was exchanged for a 6 Fr Sheath. EBU 3.75 Guide catheter was inserted and engaged into the LCA. [employer] [place] Guide wire was advanced to the LAD. Emerge 2.0 x 12 Balloon catheter was inserted. Balloon catheter was advanced across lesion in the LAD, mid. PTCA balloon inflated at 8 at ms for 6 secs. PTCA balloon inflated at 6 atms for 6 secs. PTCA balloon inflated at 8 atms for 5 secs . Angiogram performed post balloon dilatation. Synergy 2.25 x 38 Drug Eluting stent was inserted. Bry g Eluting stent was advanced across the lesion in the LAD, mid. Angiogram performed pre stent deploym ent. Angiogram performed post stent deployment. NC Emerge 3.0 x 8 Balloon catheter was inserted. Ball oon catheter was advanced across lesion in the LAD, mid. Angiogram performed post balloon dilatation. Angiogram performed post balloon dilatation. Contrast was injected through the sheath and the Right Iliac and Femoral artery were assessed for possible closure device. The arterial sheath was pulled and a Mynx closure device was deployed for hemostasis. The venous sheath was then pulled a nd manual compression applied until hemostasis achieved CORONARY ANGIOGRAPHY DOMINANCE: Right Dominant LEFT HEART ASSESSMENT Left Ventricular Ejection Fraction: by LV Gram 45 % LVEDP: 18 mmHg Anterior Hypokinesis - Moderate RIGHT HEART ASSESSMENT Thermal CO: 5.14 Thermal CI: 2.41 Johnathon CO: 5.64 Johnathon CI: 2.65 PW: 5/5 4 PA: 21/0 13 RV: 28/1 5 RA: 3/1 2 PVR: 140 SVR: 1370 Mitral Valve Area: >3.50 Mitral Valve index: 1.64 Mitral Valve Mean Gradient: 9.4 LEFT MAIN: Angiographically normal LEFT ANTERIOR DESCENDING ARTERY: PROX LAD: Previously placed stent is patent MID LAD: 75 % Stenosis CIRCUMFLEX ARTERY: Mild luminal irregularities less than 30% INTERVENTION INFORMATION LESION SITE: LAD (Mid) Lesion Complexity: High/C, lesion at bifurcation: No, thrombus present: No, lesion length: 38 mm, cul prit lesion: Yes Pre Stenosis: 75 % Pre intervention JORDANA flow: 3 PROCEDURE: Drug Eluting Stent with pre and post dilatation Post Stenosis: 0 % Post intervention JORDANA flow: 3 Lesion Devices: Mainkeys Inctronic 6 Fr EBU3.75 100cm Guide Catheter [place] .014 [employer] [place] Straight 190cm Pineda Sci EMERGE MR 2.00x12 BALLOON Pineda Sci Synergy MR ALEXANDRO 2.25x38 Pineda Sci NC EMERGE MR 3.00x08 BALLOON COMPLICATIONS No Complications PROCEDURE MEDICATIONS Versed 1 mg IV Oxygen: 2 L/min via nasal cannula Heparin 6000 unit(s) IV 04/13/2019 09:06:50 Nitro 200 mcg IC 04/13/2019 09:09:06 Nitro 200 mcg IC 04/13/2019 09:09:06 IV Bolus: .9 NaCl 450 ml total 04/13/2019 09:07:29 SUMMARY OF HEMODYNAMIC DATA Time AIR REST ECG 08:17:16 RA 3/1 (2) SV 08:50:41 RV 28/1, 5 08:51:00 PW 5/5 (4) PV 08:51:47 PA 21/0 (13) PA 08:52:01 LV 128/-8, 10 08:56:16 LV 129/-12, 11 08:56:23 LV 126/-4, 17 08:56:47 PW 12/10 (9) 08:56:47 LV 127/-7, 14 08:56:53 PW 9/8 (7) 08:56:53 LV 125/-8, 8 08:57:14 RV 25/1, 5 08:57:14 LV 126/-10, 19 08:58:36 LVp 124/-15, 18 08:58:41 AOp 115/62 (85) 08:58:46 AO 104/75 (90) SA 09:00:14 Valve Area (c P-P/ms Time AIR REST Mitral 3.50 9.4 mn/103 ms 08:56:53 Type SV CO (l/m) CI (l/m/ HR Time AIR REST Thermal 55.90 5.14 2.41 92 08:17:16 Johnathon 61.30 5.64 2.65 92 08:17:16 Label % O2 Pres/Loc Time AIR REST PA 67 PA 09:26:24 AO 93 PV 09:26:30 Signed By Ricardo Etienne MD On 04/13/2019 09:52:08 Ricardo Etienne MD
[2019-04-13 09:56] LABS: Blood Gas Specimen Type VEN; VBG BASE EXCESS -1 mmol/L (-1.0-3.5); VBG Bicarbonate 24 mmol/L (22-26); VBG Oxygen Content 25 mmol/L (23-33); VBG PO2 35 mmHg (25-40); VBG SO2 66 % (50-70); VBG pCO2 39.9 mmHg (41-51); VBG pH 7.39 (7.32-7.42)
[2019-04-13 09:56] LABS: ACT Activated Clotting Time 186 sec (74-137)
[2019-04-13 09:56] LABS: Blood Gas Specimen Type VEN; VBG BASE EXCESS 0 mmol/L (-1.0-3.5); VBG Bicarbonate 25 mmol/L (22-26); VBG Oxygen Content 26 mmol/L (23-33); VBG PO2 35 mmHg (25-40); VBG SO2 67 % (50-70); VBG pCO2 40.3 mmHg (41-51); VBG pH 7.39 (7.32-7.42)
[2019-04-13 09:56] LABS: Base Excess -3 mmol/L (-2 to +2); Blood Gas Specimen Type ART; PO2 69 mmHG (75-100); SO2 93 % (95-99); Total Carbon Dioxide 23 mmol/L; pCO2 36.8 mmHg (35-45); pH 7.39 (7.35-7.45)
--- NOTE | 2019-04-13 10:00 | EKG12_ITS ---
Test Reason : POST PCI Blood Pressure : / mmHG Vent. Rate : 085 BPM Atrial Rate : 085 BPM P-R Int : 170 ms QRS Dur : 092 ms QT Int : 380 ms P-R-T Axes : 041 -09 037 degrees QTc Int : 452 ms Sinus rhythm with Fusion complexes Low voltage QRS Borderline ECG When compared with ECG of 14-JUL-2017 03:16, Fusion complexes are now Present ST no longer elevated in Anterior leads T wave inversion no longer evident in Anterior leads Confirmed by JASWINDER ETIENNE ([id number]), photographic editor ZAFAR TEMPLE ([id number]) on 04/25/2019 2:06:53 PM Referred By: Jaswinder Etienne Confirmed By:JASWINDER ETIENNE
[2019-04-13] MEDS: 0.9% Normal Saline 1,000 ML 150 ML IV (10:45)
[2019-04-13 11:45] LABS: Bedside Glucose 136 mg/dL (70-110)
[2019-04-13] MEDS: Carvedilol 3.125 MG TABLET PO ×2 (13:11→21:10)
[2019-04-13] MEDS: busPIRone 5 MG Tablet 10 MG PO ×2 (13:11→21:09)
--- NOTE | 2019-04-13 14:49 | CRPHASE1 ---
Patient Communication Former Patient:: Phase II PHII Cardiac Rehab Discussed with Patient:: Yes Guide to Cardiac Rehab Given to Patient:: Yes Cardiac Rehab Facility Choice List Given to Patient:: Yes - [facility] Choice Program [facility] CR PHII:: Communication Given to CR, Refer to [facility] Activities Director Scouting:: Ricardo Etienne Sessions:: 36 sessions - 3 days/wk, 12 weeks Risk Factors/Lifestyle Smoking Status: Never smoker Hx Hypertension: Yes Hx Diabetes Mellitus Type 2: Yes Hx Obesity: Yes Height: 1.73 m Weight:: 99.79 kg BMI: 33.3 Stress: Long-standing ETOH: No Caffeine: Yes Substance Abuse: No Family History: Family History (Last Reviewed 02/14/19 @ 10:34 by Lynne Grubbs) Mother Diabetes Hypertension Father Hypotension Brother Hypertension HLD (hyperlipidemia) Grandmother Diabetes Grandfather CVA (cerebral vascular accident) Diabetes Brother Cancer Family History: Diabetes, Heart Disease, Hypertension Past Cardiac Illness: Coronary Artery Disease, Myocardial Infarction, Previous PCI w/Stent Phase I Education Given On:: [place], Nutrition, Diabetes - Type II Issues Affecting Care:: None Knowledge of Condition:: Yes Hospital Course Pain Description: Tightness Cardiac Cath Date:: 04/13/19 Medical/Surgical History NV:: Yes Angina:: Yes Pulmonary:: Yes Diabetes:: Yes Diabetes Type II:: Yes Hypertension:: Yes Dyslipidemia:: Yes Arrhythmias:: Yes Arthritis:: Yes Depression:: Yes Anxiety:: Yes PTCA:: Yes Discharge/Home/Social Eval Discharge Disposition: Home Marital Status: - Patient Lives With:: Cardiac Rehabilitation Info Cardiac Rehabilitation Program Information: Cardiac Rehabilitation is important for patients like you who are recovering from a heart problem. Cardiac rehabilitation programs are recognized as integral to the continued care of the patient with coronary heart disease. The cardiac rehabilitation program is designed to optimize a patient's physical, psychological, and social functioning. Health health care law specialist work in cardiac rehabilitation programs and assist you with getting the treatments you need to get stronger and healthier - like exercise, healthy eating habits, and medications. Cardiac rehabilitation has been show to help people with heart problems live longer and have better life enjoyment than people who do not go to cardiac rehabilitation. Please contact the Cardiac Rehabilitation Program at [facility] at in two weeks if you have not heard from them.
--- NOTE | 2019-04-13 14:53 | CRPH1.INSTRU ---
General Education CAD and cardiac anatomy and function:: Patient communicates acknowledgment Explanation of diagnoses and procedures:: Patient communicates acknowledgment Sign/Symptoms of KS:: Patient communicates acknowledgment Antiplatelet therapy: Not instructed Proper use of NTG-SL: Not instructed Emergency procedures and activation of EMS: Patient communicates acknowledgment Compliance of all prescribed medications: Patient communicates acknowledgment Smoking Patient Nicotine/Smoking Risk Factors Are:: Never smoked Dyslipidemia Recommendations Include:: Lipid profile not available Overweight/Obesity Patient Overweight/Obesity Risk Factors Are:: Overweight = 26-29 Overweight/Obesity:: Patient communicates acknowledgment Hypertension Recommendations Include:: Maintain BP <130/85, BP <130/80 if diabetic, DASH dietary guidelines, Decrease/maintain normal body weight Hypertension:: Patient communicates acknowledgment Heart Disease Patient Heart Disease Risk Factors Are:: Family history of heart disease < 65 years old, Previous cardiac event Heart Disease Response Code:: Patient communicates acknowledgment Diabetes Patient Diabetes Risk Factors Are:: Elevated blood sugars Recommendations Include:: Maintain fasting blood sugars 70-110 md/dL, Maintain HgbA1c of 6% or less, Monitor blood sugar as prescribed, Diabetic dietary guidelines Diabetes:: Patient communicates acknowledgment Metabolic Syndrome Patient Metabolic Syndrome Risk Factors Are [3 of 5]:: Fasting blood sugar > 100 mg/dL, High triglyceride >150, Hypertension, Low HDL <40 [male] or < 50 [female] Recommendations Include:: Reinforce compliance to risk factor modifications, Patient is diabetic Metabolic Syndrome Response Code:: Patient communicates acknowledgment Sedentary Recommendations Include:: Benefits of regular exercise, Discussed home walking program, Monitored Outpatient Cardiac Rehab Sedentary Response Code:: Patient communicates acknowledgment Stress Recommendations Include:: Identification of stressors, and assessment of coping skills, Stress management techniques Stress Response Code:: Patient communicates acknowledgment
--- NOTE | 2019-04-13 16:31 | PCM.DC.CCA ---
Discharge Diet: Low fat/ Low Cholesterol Discharge Activity: Return to Normal Activity May shower in (days): 1 - No tub baths for 5 days May resume sexual activity in: 10-14 days Lifting Restrictions: Do not lift anything greater than 10 pounds for 3 days Call your doctor if your incision/area has: Continuous Slow Oozing, Sudden Increased Bleeding, Increased Pain/ Swelling, Increased Redness, Foul Smelling Discharge, Swelling at the incision site Call your doctor if you observe: Fever of 101 or Higher, Shortness of breath, Chest pain Change Dressing in (Days):: 1 Cleanse incision/area with: Soap & Water Additional Instructions: He will continue with Aspirin therapy. You will remain on Plavix for 1 year since stenting. If anyone asks you to discontinue Plavix medication please call the [facility] Office at [phone]. You are scheduled for an office appointment with Carlos Eduardo Rose Nurse Practitioner, on 05/04/2019 at 9 AM. If you have any questions or concerns please call the [facility] Office at [phone] Allergies/Adverse Reactions: Allergies Penicillins Allergy (Severe, Verified 03/18/19 10:24) Shortness of breath quinine sulfate [From Quine] Allergy (Severe, Verified 03/18/19 10:24) passed out benzocaine [From Cetacaine] Allergy (Verified 03/18/19 10:24) Swelling butamben [From Cetacaine] Allergy (Verified 03/18/19 10:24) Swelling ciprofloxacin HCl [From Cipro] Allergy (Verified 03/18/19 10:24) Hives TONGUE SWELLS clarithromycin [From Biaxin] Allergy (Verified 03/18/19 10:24) Swelling exenatide [From Byetta] Allergy (Verified 03/18/19 10:24) Rash folic acid [From Proferrin-Forte] Allergy (Verified 03/18/19 10:24) Rash hyoscyamine sulfate [From Levsin] Allergy (Verified 03/18/19 10:24) Rash iron heme polypeptide [From Proferrin-Forte] Allergy (Verified 03/18/19 10:24) tongue swelling naproxen [From Naprosyn] Allergy (Verified 03/18/19 10:24) Rash tetracaine [From Cetacaine] Allergy (Verified 03/18/19 10:24) throat swelled shut venlafaxine HCl [From Effexor] Allergy (Verified 03/18/19 10:24) tongue swelling procainamide Adverse Reaction (Severe, Verified 03/18/19 10:24) Anaphylactic/Resp. Distress atorvastatin calcium [From Lipitor] Adverse Reaction (Intermediate, Verified 03/18/19 10:24) Mylagias rosuvastatin calcium [From Crestor] Adverse Reaction (Intermediate, Verified 03/18/19 10:24) Myalgias diphenhydramine HCl [From Benadryl] Adverse Reaction (Verified 03/18/19 10:24) Restlessness aspergillus Adverse Reaction (Severe, Uncoded 10/07/17 11:07) Unknown niaspan Adverse Reaction (Severe, Uncoded 10/07/17 11:08) Unsure Medications to take at Discharge ALPRAZolam [Xanax] 0.25 mg PO DAILY 01/17/16 Fluticasone Propionate [Flonase Allergy Relief] 9.9 ml NS DAILY 01/17/16 Montelukast [Singulair] 10 mg PO QHS 01/17/16 metFORMIN HCl [Glucophage] 1,000 mg PO BIDCM 01/17/16 Acetaminophen [Tylenol Tablet] 325 - 650 mg PO Q6H PRN PRN tab 07/14/17 Aspirin E.C. [Ecotrin] 81 mg PO DAILY@0800 #30 tab 07/14/17 buspirone 10 mg tablet 10 mg PO TID tab 05/07/18 pramipexole 1 mg tablet 2 mg PO QHS 05/07/18 isosorbide mononitrate ER 30 mg tablet,extended release 24 hr 15 mg PO DAILY #45 tab 06/16/18 pravastatin 40 mg tablet 40 mg PO DAILY #90 tab 06/16/18 glyburide 2.5 mg tablet 2.5 mg PO DAILY 07/02/18 nitroglycerin 0.4 mg sublingual tablet 0.4 mg SUBLINGUAL Q5M PRN #25 tab 10/12/18 Cholecalciferol (Vitamin D3) [D3-2000] 2,000 unit PO BID 12/08/18 Magnesium Oxide [Magnesium] 400 mg PO DAILY 12/08/18 Ubidecarenone [Coenzyme Q10] 100 mg PO DAILY 12/08/18 Vitamin B12 2,500 mcg PO DAILY 12/08/18 Cefdinir 300 mg PO BID #14 cap 12/11/18 Insulin NPH Human Isophane [Novolin N] 30 unit SQ BID #0 12/11/18 clopidogrel 75 mg tablet 75 mg PO DAILY #90 tab 12/29/18 carvedilol 3.125 mg tablet 3.125 mg PO BID #180 tab 02/28/19 losartan 50 mg tablet 50 mg PO QHS #90 tab 03/18/19 Orders to be completed after discharge: Phase II, Outpatient Cardiac Rehab Location: None Selected Primary Care Physician: Maya Pradhan DO [Primary Care Provider] - Test Results: Test results from this visit will be discussed in further detail at your follow-up appointment, if applicable. Please Follow Up With: Carlos Eduardo Rose - Nurse Practitioner When: 05/04/2019 at 9:00 AM Cardiac Rehabilitation Info Cardiac Rehabilitation Program Information: Cardiac Rehabilitation is important for patients like you who are recovering from a heart problem. Cardiac rehabilitation programs are recognized as integral to the continued care of the patient with coronary heart disease. The cardiac rehabilitation program is designed to optimize a patient's physical, psychological, and social functioning. Health medicare sales representative work in cardiac rehabilitation programs and assist you with getting the treatments you need to get stronger and healthier - like exercise, healthy eating habits, and medications. Cardiac rehabilitation has been show to help people with heart problems live longer and have better life enjoyment than people who do not go to cardiac rehabilitation. Please contact the Cardiac Rehabilitation Program at [facility] at in two weeks if you have not heard from them.
[2019-04-13 18:00] LABS: Bedside Glucose 229 mg/dL (70-110)
[2019-04-13] MEDS: Insulin NPH Human 100 UNITS/ML PEN 30 UNITS SC (18:06)
[2019-04-13] MEDS: Pravastatin 40 MG Tablet PO (21:10)
[2019-04-13] MEDS: Losartan Potassium 50 MG Tablet PO (21:10)
[2019-04-13] MEDS: Pramipexole Di-HCl 1 MG Tablet 2 MG PO (21:10)
[2019-04-13] MEDS: Montelukast 10 MG Tablet PO (21:10)
[2019-04-13 21:25] LABS: Bedside Glucose 283 mg/dL (70-110)
[2019-04-14] VITALS (12 sets, daily range): BP systolic 124–138; BP diastolic 67–90; PULSE 77–95; RESP 15–32; TEMP 36.5–37.1; O2SAT 90–97
[2019-04-14 04:14] LABS: Hematocrit 44.1 % (40-54); Hemoglobin 14.5 g/dL (13.0-16.5); Mean Corp Hgb Conc 32.9 g/dL (32-36); Mean Corpuscular Hgb 29.2 pg (27.0-32.0); Mean Corpuscular Volume 88.7 fL (80-94); Mean Platelet Vol. 9.9 fl (6.2-12.0); Platelet Count 213 K/mm3 (150-450); RBC Distribution Width CV 12.9 % (11.6-14.6); RBC Distribution Width SD 41.9 fl (35.1-43.9); Red Blood Count 4.97 M/mm3 (4.6-6.2); White Blood Count 7.8 K/mm3 (4.4-11.0)
[2019-04-14 04:45] LABS: Anion Gap 7 (5-15); BUN 14 mg/dL (7-18); BUN/Creat Ratio 16.6 RATIO (10-20); Calcium,Total 8.6 mg/dL (8.5-10.1); Chloride 105 mmol/L (98-107); Cholesterol 170 mg/dL (200); Creatinine, Serum 0.84 mg/dL (0.70-1.30); EST Glomerular Filtration Rate 96 mL/min (>60); Est Glom Filt Rate - Afr Amer 116 mL/min (>60); Estimated Creatinine Clearance 82.56 ml/min; Glucose 219 mg/dL (74-106); High Density Lipoprotein 40 mg/dL; Potassium 4.2 mmol/L (3.5-5.1); Sodium Level 140 mmol/L (136-145); Triglycerides 111 mg/dL; Very Low Density Lipoprotein 22 mg/dL (5-40)
[2019-04-14] MEDS: busPIRone 5 MG Tablet 10 MG PO (06:11)
[2019-04-14 07:10] LABS: Bedside Glucose 203 mg/dL (70-110)
--- NOTE | 2019-04-14 07:49 | PN.CARD_ITS ---
Subjectve: Patient doing very well this morning. Actually feels better after his angioplasty. No chest pain overnight. Right groin is clean/dry/intact, no thr ills, bruits or hematoma. Telemetry negative. EKG shows normal sinus rhythm, no acute changes, old anterior wall myocardial infarction. Hemoglobin and creatinine are within nominal limits. Objective: Vital Signs Temp Pulse Resp BP Pulse Ox 97.7 F L 77 22 H 128/67 H 94 04/14/19 04:00 04/14/19 07:00 04/14/19 07:00 04/14/19 07:00 04/14/19 07:00 Oxygen Delivery Method Room Air Weight: 221 lb 1.978 oz Body Mass Index (BMI) 33.2 Intake and Output for Last 24 Hours 04/12/19 04/13/19 04/14/19 23:59 23:59 23:59 Intake Total 1247 / 1487 360 / 360 Output Total 1050 / 1050 Balance 197 / 437 360 / 360 General: Awake, Alert, Oriented x 3 HEENT: PERRL, EOMI, Sclera Non Icteric Neck: Supple, Good ROM, No Lymph Node Enlargement Lungs: Clear to auscultation Cardiovascular: Regular Rhythm, Normal S1, Normal S2, No Murmurs, No Rubs, No Gallops Vascular: No Carotid Bruits, Normal Femoral Pulses, Normal Radial Pulses, Normal Dorsalis Pedal Pulse, Normal Posterior Tibial Pulses Abdomen: Bowel Sounds Present, Soft, Non Tender, No HSM, No Organomegaly Extremities: No Cyanosis, No Clubbing, No edema Neurological: No Focal Motor or Sensory Deficit 04/13/19 08:55: VBG pH 7.39, VBG pO2 35, VBG O2 Sat (Calc) 67, VBG O2 Content 26, VBG Base Excess 0 04/13/19 08:58: VBG pH 7.39, VBG pO2 35, VBG O2 Sat (Calc) 66, VBG O2 Content 25, VBG Base Excess -1 04/13/19 09:07: pH 7.39, Bicarbonate Actual 22.0, POC Total CO2 23, Base Excess -3 L, O2 Saturation 93 L, ABG pCO2 36.8, ABG pO2 69 L 04/14/19 04:00: WBC 7.8, RBC 4.97, Hgb 14.5, Hct 44.1, MCV 88.7, MCH 29.2, MCHC 32.9, Plt Count 213, MPV 9.9 04/14/19 04:00: Sodium 140, Potassium 4.2, Chloride 105, Carbon Dioxide 28.0, Anion Gap 7, BUN 14, Creatinine 0.84, Est GFR (MDRD) Af Amer 116, Est GFR (MDRD) Non-Af 96, BUN/Creatinine Ratio 16.6, Glucose 219 H, Calcium 8.6, Triglycerides 111, Cholesterol 170, LDL Cholesterol 108, VLDL Cholesterol 22, HDL Cholesterol 40 Rhythm: EKG: ECHO: Stress Test: Cardiac Cath: PCI: CT Surgery: Holter monitor: EPS: PPM: CXR: Chest CT Scan: Medical Necessity - Tobacco Use Smoking Status: Never smoker Assessment/Plan 1. 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 disease: No chest pain overnight. He is status post angioplasty and drug-eluting stenting to his mid LAD just downstream from his previous LAD stent which was placed about 2 years ago after an acute anterior wall myocardial infarction. Recommended the patient continue his current medications as outlined in the [facility]. I have advised him not to engage in any heavy lifting or driving of cars retractors for at least 1 week's time until his groin is healed. He is status post minx closure. Patient will be enrolled in cardiac rehab and I strongly encouraged him to repeat cardiac rehab. The patient is voiced understanding and agrees to proceed. 2. Hyperlipidemia: Continue statin based medications. Repeat lipid profile after cardiac rehab. His LDL is 108, HDL is 40. 3. Patient may be discharged home and follow-up with Dr. Etienne going forward in 4 to 6 weeks time. This note was generated using a voice recognition system and there may be incorrect words, spelling or punctuation that were not noted when reviewing the office note prior to saving. Code Visit Inpatient E&M: 95846 Subs Hosp L2
[2019-04-14] MEDS: Insulin NPH Human 100 UNITS/ML PEN 30 UNITS SC (07:53)
[2019-04-14] MEDS: glyBURIDE 2.5 MG Tablet PO (07:54)
[2019-04-14] MEDS: Aspirin E.C. 81 MG Tablet PO (07:54)
[2019-04-14] MEDS: Magnesium Oxide 400 MG Tablet PO (07:56)
[2019-04-14] MEDS: Clopidogrel Bisulfate 75 MG Tablet PO (07:56)
[2019-04-14] MEDS: Isosorbide Mononitrate 30 MG Tablet 15 MG PO (07:57)
[2019-04-14] MEDS: Carvedilol 3.125 MG TABLET PO (07:57)
[2019-04-14] MEDS: Acetaminophen 325 MG Tablet 650 MG PO (08:09)
== END 2019-04-14 12:05 | disposition home or self-care (01) ==
LOC: CLSP 07:50 → ICU 09:20
PROVIDERS: Family Provider Family Medicine; PCP Family Medicine; Referring Provider Internal Medicine Cardiovascular Disease; Visit Provider Internal Medicine Cardiovascular Disease
DX: I25.10 Atherosclerotic heart disease of native coronary artery without angina pectoris (principal); R94.39 Abnormal result of other cardiovascular function study; R06.09 Other forms of dyspnea; E78.5 Hyperlipidemia, unspecified; I25.2 Old myocardial infarction; I10 Essential (primary) hypertension; E11.9 Type 2 diabetes mellitus without complications; Z95.5 Presence of coronary angioplasty implant and graft; Z79.4 Long term (current) use of insulin; Z79.02 Long term (current) use of antithrombotics/antiplatelets; Z79.82 Long term (current) use of aspirin; Z79.899 Other long term (current) drug therapy
CPT/HCPCS: 36415; 80048; 80061; 82803; 82962; 85027; 85347; 85610; 85730; 92928; 93005; 93460; 99152; 99153; C1760; J7030; J7040; Q9967; C1725; C1751; C1769; C1874; C1887; C1894; C9600

== ENCOUNTER → 2019-04-25 09:27 | Outpatient (CLI) | payer MEDICARE, SELFPAY ==
[2019-04-13 10:01] VITALS: BMI 33.2
[2019-04-13 14:52] VITALS: BMI 33.3
--- NOTE | 2019-04-25 09:36 | CR.ITP_ITS ---
General Information - General Information Admitting Diagnosis: Z95.5 PCI With Stent - Education/Goals Barriers to Learning: None Cardiac Rehabilitation Goals: 1. Maintain the individual as the primary focus of care. 2. To improve the patient's quality of life. 3. Identification of cardiac risk factors and provide cardiac risk factor management. 4. Enhance the psychosocial status of the patient. 5. Reconditioning enough to allow the patient to resume customary activities. 6. Control symptoms of cardiac disease Scale for measuring improvement of personal goals: Enter appropriate number in Comments. 2 = Unchanged. 3 = Slightly Better. 4 = Moderate Improvement. 5 = Met my Goal Personal Goals: Initial Assessment: Improve management of stress and emotions Exercise - Initial Assessment - Visit Date of Eval: 04/25/19 - Initial Eval - Stages of Change Stages of Change:: Contemplate - Physician Prescribed Exercise Modalities: Treadmill, Biodyne, Rower, Airdyne, NuStep, SciFit Frequency (days/week): 3x/week for 12 weeks [36 sessions] Duration (Minutes):: 30-45 Intensity: 60-80% age predicted maximum heart rate reserve METs - Progression: 0.5-1.0 MET, RPE 11-14 WEEK: 2.5 Target Heart Rate:: 99-130 - Intervention Home Exercise/Activity Goal:: Sitting Time <3 hrs/day - Education Goals:: Warm-up, RPE JEREMIAS Scale, S/S, Safe Exercise, Self-Monitoring - Exercise Program Goals Exercise Program Goals: Aerobic Activity >30 min, B/P <130/80 Nutrition - Initial Assessment - Program Goals Nutrition Program Goals: LDL <70. Total Cholesterol <200. HDL >45. Triglycerides <150. HgbA1C <7%. BMI <25 - Visit Date of Assessment:: 04/25/19 - Stages of Change Stages of Change:: Contemplate - Diabetes Diabetes:: Yes Non-Insulin Dependent?: Yes Do you monitor your blood sugar at home?: Yes - Weight Management Height: 1.73 m Weight:: 102.512 kg Total Score:: 2 - Intervention Referral to dietitian:: No Referral to Diabetic Clinic:: No Will attend diet classes:: Yes - Education Gave educational materials for:: Signs & symptoms of hypoglycemia, Signs & symptoms of hyperglycemia, Relate diabetes to coronary artery disease, Healthy eating Tobacco - Initial Assessment - Program Goals Tobacco Program Goals: Complete smoking cessation. Attend education classes. Improve Knowledge Test score - Stage of Change Stages of Change:: Contemplate - Learning Barriers Learning Barriers: Vision - wears glasses for vision correction Total Score:: 20 - Family Support Do you have family support?: Yes - Tobacco Use Tobacco Use: Non-smoker Do you use smokeless tobacco?: No - Intervention Smoking Cessation Referral:: No Individual Education/Counseling:: No Education Schedule Given:: Yes - Education Attended class for:: Treating Heart Disease, How The Heart Works, What it means to have Heart Disease, How Coronary Artery Disease is Diagnosed, Heart Procedures, What Heart Medications Do, Risk Factors & Modifications, Living an Active Life, Nutrition, Emotions & Heart Disease, Stress Management & Relaxation, Sleep Disorders & Heart Disease Psychosocial - Initial Assess - Target Goals Target Goals: Assess presence or absence of depression. Using a valid screening tool, maximizes coping skills. Positive support system - Stages of Change Stages of Change:: Contemplate - Psychosocial Test Tool Used:: HANDS Depression Questionnaire Total Mood Screening Score:: 4 Self-Efficacy Score:: 5 - Intervention PS - Interventions: Yes Attend Stress Management Classes, Yes Uses Stress Management Skills, No Referral to Mental Health, No Referral to [facility] Case Management, No Referral to Physician - Education Gave educational materials for:: Coping techniques, Signs & symptoms of depression, Stress management, Relaxation techniques - Assistive Devices Assistive Devices:: None Fall Risk Assessed:: Yes Patient Health Questionnaire Initial Assessment 1. Little interest or pleasure in doing things: Several days 2. Feeling down, depressed, or hopeless: Not at all 3. Trouble falling or staying asleep, or sleeping too much: Not at all 4. Feeling tired or having little energy: More than half the days 5. Poor appetite or overeating: Not at all 6. Feeling bad about yourself -- or that you are a failure or have let yourself or your family down: Several days 7. Trouble concentrating on things, such as reading the newspaper or watching television: Not at all 8. Moving or speaking so slowly that other people could have noticed. Or the opposite - being so fidgety or restless that you have been moving around a lot more than usual: Not at all 9. Thoughts that you would be better off , or of hurting yourself in some way: Not at all How difficult have these problems made it for you to do your work, take care of things at home, or get along with other people?: Not difficult at all Total Score: 4 HAILY-Q SV Test - Statements CAD is a disease of the arteries in the heart: False Examples of risk factors for heart disease: True Angina is chest pain or discomfort: True The benefits of resistance training include: True Eating more meat and dairy products: False Anti-platelet medications such as aspirin are important: True The only effective way to manage stress: False An exercise warm-up slowly increases heart rate: True Prepared, processed foods usually have high sodium: True Depression is common after a heart attack: True The statin medications lower cholesterol: True To control blood pressure, lower the amount of sodium: True If someone gets chest discomfort during walking: False Transfats are partially hydrogenated vegetable oils: True Sleep apnea that is not treated increases the risk: False To control cholesterol, one should become a vegetarian: False Someone knows if he/she is exercising at the right level: True Diabetes cannot be prevented with exercise & health eating: False Stress is a large risk for heart attack: True A diet that can help lower blood pressure is rich in: True - Total Score Total Correct Responses: 20 Self-Efficacy Initial Assessment We would like to know how confident you are in doing certain activities. Please select your confidence level for:: Select your confidence level for the following using the scale 1-10 where 1 is not at all confident and 10 is totally confident. Your score is the average of all 6 responses. Fatigue: How confident are you that you can keep the fatigue caused by your disease from interfering with the things you want to do? Select Number: 6 Physical Discomfort or Pain: How confident are you that you can keep the physical discomfort or pain of your disease from interfering with the things you want to do? Select Number: 6 Emotional Distress: How confident are you that you can keep the emotional distress caused by your disease from interfering with the things you want to do? Select Number: 5 Other Symptoms or Health Problems: How confident are you that you can keep other symptoms or health problems from interfering with the things you want to do? Select Number: 4 Different Tasks and Activities: How confident are you that you can do the different tasks and activities needed to manage your health condition so as to reduce your need to see a doctor? Select Number: 4 Medication: How confident are you that you can do things other than just taking medication to reduce how much your illness affects your everyday life? Select Number: 6 Total Score:: 5 Nutrition Survey - Nutrition Survey Instructions Scoring Instructions: Scoring is as follows: Yes = 1 points. No = 0 point. Patient score that is >/=12 is considered to be at potential nutritional risk and could benefit from a referral to a registered dietitian. - Nutrition Survey Initial Have you lost >10 lbs over the past 2 months without trying?: No Are you following a special diet at home for diabetes, low fat, or low salt?: Yes Are you interested in meeting with a dietitian for help understanding your diet?: No Do you eat less than 3 meals a day?: No Do you eat fatty meats (brasher, sausage, ribs, etc), fried foods, desserts, large amounts of salad dressings, margarine, butter, or cheese most days?: No Do you have food allergies? [Enter types in comment field]: No Do you eat in restaurants more than 3 times a week?: No Do you season food with salt, seasoning salt, or garlic salt?: No Do you used canned, boxed, frozen meals, or soups, seasoning packets?: Yes Total Score:: 2
--- NOTE | 2019-04-25 09:36 | PCM.CR.HP2 ---
CR - History & Physical - General Arrival date:: 04/25/19 Arrival time:: 09:36 Date of Referral:: 04/13/19 Date of CR Evaluation:: 04/25/19 Referring Physician: Dr. Ricardo Etienne Primary Diagnosis: Z95.5 PCI With Stent - History of Present Cardiac Event Onset Date: Enter Onset Date of cardiac illnesses in Comment field below Current stable Angina Pectoris:: No Acute Myocardial Infarction within 12 months:: No Coronary Artery Bypass Graft:: No Heart valve replacement or repair:: No PTCA or coronary stenting:: Yes Heart or Heart-Lung Transplant:: No Heart Failure EF <35%:: No Type of Symptoms:: CP Interventions with present event:: Onset date 04/13/2019 - Medications Home Medications: Ambulatory Orders Medication Instructions Recorded ALPRAZolam [Xanax] 0.25 mg PO DAILY 01/17/16 Fluticasone Propionate [Flonase 9.9 ml NS DAILY 01/17/16 Allergy Relief] Montelukast [Singulair] 10 mg PO QHS 01/17/16 metFORMIN HCl [Glucophage] 1,000 mg PO BIDCM 01/17/16 Acetaminophen [Tylenol Tablet] 325 - 650 mg PO Q6H PRN PRN tab 07/14/17 Aspirin E.C. [Ecotrin] 81 mg PO DAILY@0800 #30 tab 07/14/17 buspirone 10 mg tablet 10 mg PO TID tab 05/07/18 pramipexole 1 mg tablet 2 mg PO QHS 05/07/18 isosorbide mononitrate ER 30 mg 15 mg PO DAILY #45 tab 06/16/18 tablet,extended release 24 hr pravastatin 40 mg tablet 40 mg PO DAILY #90 tab 06/16/18 glyburide 2.5 mg tablet 2.5 mg PO DAILY 07/02/18 nitroglycerin 0.4 mg sublingual 0.4 mg SUBLINGUAL Q5M PRN #25 tab 10/12/18 tablet Cholecalciferol (Vitamin D3) 2,000 unit PO BID 12/08/18 [D3-2000] Magnesium Oxide [Magnesium] 400 mg PO DAILY 12/08/18 Ubidecarenone [Coenzyme Q10] 100 mg PO DAILY 12/08/18 Vitamin B12 2,500 mcg PO DAILY 12/08/18 Cefdinir 300 mg PO BID #14 cap 12/11/18 Insulin NPH Human Isophane 30 unit SQ BID #0 12/11/18 [Novolin N] clopidogrel 75 mg tablet 75 mg PO DAILY #90 tab 12/29/18 carvedilol 3.125 mg tablet 3.125 mg PO BID #180 tab 02/28/19 losartan 50 mg tablet 50 mg PO QHS #90 tab 03/18/19 - Allergies Allergies/Adverse Reactions: Allergies Penicillins Allergy (Severe, Verified 03/18/19 10:24) Shortness of breath quinine sulfate [From Quine] Allergy (Severe, Verified 03/18/19 10:24) passed out benzocaine [From Cetacaine] Allergy (Verified 03/18/19 10:24) Swelling butamben [From Cetacaine] Allergy (Verified 03/18/19 10:24) Swelling ciprofloxacin HCl [From Cipro] Allergy (Verified 03/18/19 10:24) Hives TONGUE SWELLS clarithromycin [From Biaxin] Allergy (Verified 03/18/19 10:24) Swelling exenatide [From Byetta] Allergy (Verified 03/18/19 10:24) Rash folic acid [From Proferrin-Forte] Allergy (Verified 03/18/19 10:24) Rash hyoscyamine sulfate [From Levsin] Allergy (Verified 03/18/19 10:24) Rash iron heme polypeptide [From Proferrin-Forte] Allergy (Verified 03/18/19 10:24) tongue swelling naproxen [From Naprosyn] Allergy (Verified 03/18/19 10:24) Rash tetracaine [From Cetacaine] Allergy (Verified 03/18/19 10:24) throat swelled shut venlafaxine HCl [From Effexor] Allergy (Verified 03/18/19 10:24) tongue swelling procainamide Adverse Reaction (Severe, Verified 03/18/19 10:24) Anaphylactic/Resp. Distress atorvastatin calcium [From Lipitor] Adverse Reaction (Intermediate, Verified 03/18/19 10:24) Mylagias rosuvastatin calcium [From Crestor] Adverse Reaction (Intermediate, Verified 03/18/19 10:24) Myalgias diphenhydramine HCl [From Benadryl] Adverse Reaction (Verified 03/18/19 10:24) Restlessness aspergillus Adverse Reaction (Severe, Uncoded 10/07/17 11:07) Unknown niaspan Adverse Reaction (Severe, Uncoded 10/07/17 11:08) Unsure - Sleep Disorder Evaluation Hx of Sleep Apnea: No Do you snore loudly (louder than talking or can be heard through closed doors)?: Yes - pt is going to sleep lab for a sleep study Do you often feel tired/ fatigued/ sleepy during daytime?: No Has anyone observed you stop breathing during sleep?: No History of Hypertension (for STOP score): Yes STOP Results: Positive Advanced Directives - Advanced Directives Power of Certified Medical Asst: No Living Will: No Advance Directives Information Provided: No Advance Directives on File: No DNR Order?:: No Past Medical History - Past Medical Illness Medical History: Past Medical History (Last Updated 04/04/19 @ 16:01 by Lynne Grubbs) Dyspnea on exertion (Acute) R06.09 Abnormal stress echo (Acute) R94.39 Atherosclerotic heart disease of [place] coronary artery without angina pectoris (Chronic) Onset Date: 07/11/17 I25.10 90% occlusion, thrombectomy post anterior STEMI:ALEXANDRO to LAD 3.[address] X [address] Etienne [facility] History of ST elevation myocardial infarction (STEMI) (Chronic) Onset Date: 07/11/17 I25.2 Anterior Hypertension (Chronic) I10 Diabetes mellitus, type 2 (Chronic) E11.9 Hyperlipidemia (Chronic) E78.[address] elevation myocardial infarction (STEMI) involving left anterior descending coronary artery (Resolved) I21.02 Atherosclerosis of [place] coronary artery of [place] heart without angina pectoris (Resolved) I25.10 PCI/ALEXANDRO to mid LAD 06/2017; - Past Surgical History Surgical History: Past Surgical History (Last Updated 04/13/19 @ 10:04 by Lynne Grubbs) Stented coronary artery (Chronic) Onset Date: 04/13/19 Z95.5 07/11/2017:90% occlusion, thrombectomy post anterior STEMI:ALEXANDRO to LAD 3.[address] X [address] Etienne [facility]; 04/13/2019:Successful PTCA/ALEXANDRO mid LAD with a 2.25 x 38 Promus Synergy, post dilated with various atmospheres with a 3.0 x 8 NC balloon throughout in order to sculpt the stent for proper apposition; 75%-->0%, no dissection. per DJN @ [facility] History of appendectomy Z90.49 History of cholecystectomy Z90.49 History of dental surgery Z92.89 History of exploratory laparotomy Z98.890 History of left knee surgery Z98.890 meniscus repait History of vasectomy Z98.52 Status post excision of lipoma Z98.890, Z86.018 Surgical History: appendectomy, arthscropcy, hip, cholecystectomy, - - R abdominal wall muscle repair. - Family History Summary Family History: Family History (Last Reviewed 02/14/19 @ 10:34 by Lynne Grubbs) Mother Diabetes Hypertension Father Hypotension Brother Hypertension HLD (hyperlipidemia) Grandmother Diabetes Grandfather CVA (cerebral vascular accident) Diabetes Brother Cancer lung Social History - Smoking History Smoking Status: Never smoker Hx Tobacco Use: No Hx Smoking Exposure: No - Alcohol Use Alcohol Usage: No - Substance Abuse Hx Substance Use: No - Occupation Occupation (List type of work in comments):: Retired - Hobbies, Recreation, Social Activities Recreational Activities: I am able to engage in most, but not all activities Social Environment - Status Marital Status: - Current Living Arrangements Living Environment:: Spouse - Children How many children do you have?: 3 Do any of your children live nearby?: Yes - Safety Do you feel safe in your surroundings?: Yes - Assistance Do you need any assistance at home?: none Review of Systems - Review of Systems Hints: Right click = Denies ([place]). Left click = Reports ([place]) Review of Present Symptoms: Reports: Angina, Appetite - Normal, Appetite - Special Diet, Sleep - Normal. Denies: Shortness of Breath at Rest, Shortness of Breath with Exertion, PVD, Operative Discomfort, Wound Healing, Dizziness/Lightheadedness, Fatigue, Heart Arrhythmia/Irregularities, Sexual Changes - Pain Is Patient Pain Free?: Yes Risk Factor Assessment - Chief Complaint Chief Complaint: CP - Vital Signs Pulse Ox: 93 - Pulse Pulse Rate: 89 Pulse Rhythm: Regular - Hypertension Blood Pressure Sitting - Left Arm: 120/60 - Diabetes Nutrition Referral for Diabetes: No - Obesity Height: 1.68 m Weight:: 102.512 kg Weight in Pounds: 226.0 lbs Body Mass Index (BMI): 36.4 Nutritional Referral for Obesity: No - Physical Inactivity Physical Inactivity: Reg Exercise 30 min/day, Physically demanding job, Recreational activity - Risk Stratification Risk Guidelines: Lowest Risk: Risk Factor for Smoking, Moderate Risk: Risk Factor for Dyslipidemia, Risk Factor for Diabetes, Risk Factor for Obesity, Risk Factor for Hypertension, Risk Factor for Sedentary Lifestyle, Risk Factor for Depression - For Smoking Smoking Risk Guidelines: Smoking Low Risk: None or quit greater than 6 months ago. Smoking Moderate Risk: Smoker or quit 6 months or less ago. Smoking High Risk: Smoker - For Dyslipidemia Dyslipidemia Risk Guidelines: Low Risk: Moderate Risk: High Risk: 15-25% fat 25.1-29% fat >/= 30% fat. <7% sat fat 7-9% sat fat >9% sat fat. <150 mg chol 150-299 mg chol >/= 300 mg chol. LDL <100 LDL 100-129 LDL >/= 130. Chol/HDL ratio <5.0 Chol/HDL ratio 5.0-6.0 Chol/HDL ratio >6.0. Triglycerides <100 Triglycerides 100-149 Triglycerides >/= 150 - For Diabetes Mellitus Diabetes Risk Guidelines: Diabetes Low Risk: HgA1c <6.5% and/or FBG <120. Diabetes Moderate Risk: HgA1c 6.6-7.9% and/or FBG 120-180. Diabetes High Risk: HgA1c >/= 8% and/or FBG >180 - For Obesity/Overweight Obesity/Overweight Risk Guidelines: Obesity Low Risk: BMI <25.0. Obesity Moderate Risk: BMI 25-29.9. Obesity High Risk: BMI >/= 30.0 - For Hypertension Hypertension Risk Guidelines: Hypertension Low Risk: Systolic <120 and Diastolic <80. Hypertension Moderate Risk: Systolic 120-139 and Diastolic 80-89. Hypertension High Risk: Systolic >/= 140 and Diastolic >/= 90 - For Sedentary Lifestyle Sedentary Lifestyle Risk Guidelines: Sedentary Lifestyle Low Risk: >/= 1,500 kcal/week. Sedentary Lifestyle Moderate Risk: 700-1,499 kcal/week. Sedentary Lifestyle High Risk: < 700 kcal/week - For Depression Depression Risk Guidelines: Depression Low Risk: Not clinically depressed. Depression Moderate Risk: Mildly depressed. Depression High Risk: Clinically depressed - Family History Family History: Family History (Last Reviewed 02/14/19 @ 10:34 by Lynne Grubbs) Mother Diabetes Hypertension Father Hypotension Brother Hypertension HLD (hyperlipidemia) Grandmother Diabetes Grandfather CVA (cerebral vascular accident) Diabetes Brother Cancer Motivation - Motivation to Participate On a scale of 1 to 10, how prepared are you to commit to attending program?: 9 What do you see as barriers to successfully being able to complete the program?: none What do you see as the benefits of succesfully completing the program? In other words, what do you hope to get out of participating in the program?: improved health Are there issues you are dealing with that will interfere with completing the program?: none Do you have a spouse or signficant other, family or friends who will help support you to complete the program?:
[2019-04-25 10:36] VITALS: BP 120/60; PULSE 89; O2SAT 93; BMI 36.4
== END ==
PROVIDERS: Family Provider Family Medicine; PCP Family Medicine; Referring Provider Internal Medicine Cardiovascular Disease; Visit Provider Internal Medicine Cardiovascular Disease
DX: Z98.61 Coronary angioplasty status (principal)

== ENCOUNTER 2019-04-29 17:55 | Emergency (ER) | payer MEDICARE, SELFPAY ==
[2019-04-13 14:52] VITALS: BMI 33.3
[2019-04-25 10:36] VITALS: BMI 36.4
[2019-04-29 17:56] VITALS: BP 119/73; PULSE 88; PULSE 92; RESP 14; TEMP 36.6; O2SAT 95; O2SAT 98; BMI 35.2
--- NOTE | 2019-04-29 18:47 | EKG12_ITS ---
Test Reason : SYNCOPE Blood Pressure : / mmHG Vent. Rate : 085 BPM Atrial Rate : 085 BPM P-R Int : 168 ms QRS Dur : 092 ms QT Int : 370 ms P-R-T Axes : 030 -21 026 degrees QTc Int : 440 ms Normal sinus rhythm Normal ECG Confirmed by EVLER EDWARDS, MADI ([id number]), make up editor ZAFAR TEMPLE ([id number]) on 05/03/2019 2:02:29 PM Referred By: Ricardo Etienne Confirmed By:JULIAN RAYA MD
--- NOTE | 2019-04-29 18:47 | ED.VIS.GEN ---
History of Present Illness Chief Complaint: Syncope Detail of Chief Complaint: Near syncope Informant: Patient Onset: Today Narrative: Patient presents with an episode of near syncope. He was at a [employer] [place] in the kitchen area that he states was very warm. He was washing dishes. He states he became very lightheaded, dizzy, and sweaty. He was able to get to a chair prior to passing out. He did have a cardiac stent placed 2 weeks ago. He did not have an OR at that time but at normalities were noted on his stress test routinely. He denies having any chest pain or palpitations tonight. At this time he has no complaints. Past Medical History - Allergies and Home Meds Allergies/Adverse Reactions: Allergies Penicillins Allergy (Severe, Verified 03/18/19 10:24) Shortness of breath quinine sulfate [From Quine] Allergy (Severe, Verified 03/18/19 10:24) passed out benzocaine [From Cetacaine] Allergy (Verified 03/18/19 10:24) Swelling butamben [From Cetacaine] Allergy (Verified 03/18/19 10:24) Swelling ciprofloxacin HCl [From Cipro] Allergy (Verified 03/18/19 10:24) Hives TONGUE SWELLS clarithromycin [From Biaxin] Allergy (Verified 03/18/19 10:24) Swelling exenatide [From Byetta] Allergy (Verified 03/18/19 10:24) Rash folic acid [From Proferrin-Forte] Allergy (Verified 03/18/19 10:24) Rash hyoscyamine sulfate [From Levsin] Allergy (Verified 03/18/19 10:24) Rash iron heme polypeptide [From Proferrin-Forte] Allergy (Verified 03/18/19 10:24) tongue swelling naproxen [From Naprosyn] Allergy (Verified 03/18/19 10:24) Rash tetracaine [From Cetacaine] Allergy (Verified 03/18/19 10:24) throat swelled shut venlafaxine HCl [From Effexor] Allergy (Verified 03/18/19 10:24) tongue swelling procainamide Adverse Reaction (Severe, Verified 03/18/19 10:24) Anaphylactic/Resp. Distress atorvastatin calcium [From Lipitor] Adverse Reaction (Intermediate, Verified 03/18/19 10:24) Mylagias rosuvastatin calcium [From Crestor] Adverse Reaction (Intermediate, Verified 03/18/19 10:24) Myalgias diphenhydramine HCl [From Benadryl] Adverse Reaction (Verified 03/18/19 10:24) Restlessness aspergillus Adverse Reaction (Severe, Uncoded 10/07/17 11:07) Unknown niaspan Adverse Reaction (Severe, Uncoded 10/07/17 11:08) Unsure Primary Care Physician: Maya Pradhan DO [Primary Care Provider] - Prior records reviewed: Yes Past Medical History: - - Reviewed Surgical History: appendectomy, arthscropcy, hip, cholecystectomy, - - R abdominal wall muscle repair. Lives: With Family Smoking Status: Never smoker - Family History Maternal Family History: Family History (Last Reviewed 02/14/19 @ 10:34 by Lynne Grubbs) Mother Diabetes Hypertension Father Hypotension Brother Hypertension HLD (hyperlipidemia) Grandmother Diabetes Grandfather CVA (cerebral vascular accident) Diabetes Brother Cancer Family History: Reports: Diabetes, Hypertension Paternal Family History: Family History (Last Reviewed 02/14/19 @ 10:34 by Lynne Grubbs) Mother Diabetes Hypertension Father Hypotension Brother Hypertension HLD (hyperlipidemia) Grandmother Diabetes Grandfather CVA (cerebral vascular accident) Diabetes Brother Cancer Family History: Reports: - - Father with history of hypotention. Review of Systems General: Denies: Chills, Fever Eyes: Denies: Visual changes - bilaterally ENT: Denies: Bilateral ear pain Cardiovascular: Denies: Chest pain, Palpitations Respiratory: Denies: Dyspnea, Cough Gastrointestinal: Denies: Abdominal pain, Nausea, Vomiting Musculoskeletal: Denies: Back pain Neurological: Denies: Headache, Parasthesia Hematologic: Denies: Easy bruising Allergy: Denies: Uticaria Physical Exam Vital Signs/Narrative: Vital Signs Temp Pulse Resp BP Pulse Ox 04/29/19 17:56 98 F 92 14 119/73 98 Inital Vital Signs reviewed: Yes General: Well nourished, Well developed Head: Normocephalic Eyes: Perrl, EOMI ENT: Moist mucous membranes Neck: Supple Cardiovascular: Regular rate, Regular rhythm Respiratory: No distress, CTA bilaterally Abdomen: Soft, Nontender Extremities: Nontender Skin: Normal color, No rash Neurological: Alert, Oriented x3 Psychological: Normal affect Diagnostic/Tx/Re-eval Chest X-Ray - ED: 1 View, Read by ED Physician, Normal, Heart, Lungs 04/29/19 18:50 Chest 1 View (Portable) [RAD] Stat Laboratory Results 04/29/19 04/29/19 18:23 18:23 WBC 5.8 RBC 4.86 Hgb 14.0 Hct 43.0 MCV 88.5 MCH 28.8 MCHC 32.6 RDW Std Deviation 43.4 RDW Coeff of Jeanette 13.3 Plt Count 230 MPV 10.6 Immature Gran % (Auto) 0.200 Neut % (Auto) 49.2 Lymph % (Auto) 32.4 [place] % (Auto) 14.7 H Eos % (Auto) 2.8 Baso % (Auto) 0.7 Absolute Neuts (auto) 2.8 Absolute Lymphs (auto) 1.87 Nucleated RBC % 0 Sodium 139 Potassium 3.9 Chloride 106 Carbon Dioxide 28.0 Anion Gap 5 BUN 15 Creatinine 0.88 Estim Creat Clear Calc 78.81 Est GFR (MDRD) Af Amer 111 Est GFR (MDRD) Non-Af 92 BUN/Creatinine Ratio 17.1 Glucose 157 H Calcium 9.0 Troponin I < 0.015 - EKG Initial EKG Interpretation: Sinus Rhythm - Sinus at 85 with no acute ischemia. - Medical Decision Making Patient presents with near syncope after standing in a hot environment. Although he had recent cardiac procedure he had no chest pain or palpitations. Work-up here has been unremarkable and he has remained asymptomatic throughout his ED stay. At this time he will be discharged home with his . He is to return for any worsening symptoms or concerns. He voices understanding and agreement. ED Disposition - Plan for ED Patient: Disposition: Home or Assisted Living Diagnosis: Vasovagal near syncope Instructions: NEAR SYNCOPE, Vasovagal Referrals: Maya Pradhan DO [Primary Care Provider] - 5-7 Days Ricardo Etienne MD [STAFF PHYSICIAN] - As Needed
--- NOTE | 2019-04-29 18:50 | RAD_ITS ---
STUDY: X-RAY CHEST REASON FOR EXAM: Male, 68 years old. Syncope, chest pain. TECHNIQUE: Portable chest. COMPARISON: 03/04/2019. FINDINGS: The lungs are clear and expanded. There is no demonstrated pleural abnormality. Normal size heart. Normal mediastinum and calin. Normal visualized pulmonary arteries. Normal visualized aortic arch and descending thoracic aorta. Normal visualized thoracic spine. Normal visualized ribs, clavicles, and shoulders. There is no demonstrated abnormality of the visualized soft tissue structures of the upper abdomen. RAD/Chest 1 View (Portable) IMPRESSION: Normal x-ray examination of the chest. Electronically Signed: Marina Perez MD at 21:13 EDT Tel , Service support ,
[2019-04-29 18:54] VITALS: BP 114/80; PULSE 80; RESP 14; TEMP 36.6; O2SAT 98
[2019-04-29 19:37] LABS: Absolute Lymphocyte Count 1.87 X10^3/uL (0.83-4.51); Absolute Neutrophil Count 2.8 X10^3/uL (2.0-7.7); Basophil# 0.04 X10^3/uL; Basophil% 0.7 % (0-1); Eosinophil# 0.16 X10^3/uL; Eosinophils% 2.8 % (0-5); Lymphocyte # 1.87 X10^3/ul (4.0); Lymphocyte % 32.4 % (19-41); Mean Corp Hgb Conc 32.6 g/dL (32-36); Mean Corpuscular Hgb 28.8 pg (27.0-32.0); Mean Corpuscular Volume 88.5 fL (80-94); Mean Platelet Vol. 10.6 fl (6.2-12.0); Monocyte# 0.85 X10^3/uL; Monocyte% 14.7 % (0-10); NRBC Flagged by Analyzer 0 % (0-5); Neutrophil # 2.84 X10^3/uL (2.7-7.7); Neutrophil % 49.2 % (47-70); Platelet Count 230 K/mm3 (150-450); RBC Distribution Width CV 13.3 % (11.6-14.6); RBC Distribution Width SD 43.4 fl (35.1-43.9); Red Blood Count 4.86 M/mm3 (4.6-6.2); White Blood Count 5.8 K/mm3 (4.4-11.0)
[2019-04-29] MEDS: 0.9% Normal Saline 1,000 ML 150 ML IV (19:43)
[2019-04-29 19:57] LABS: Anion Gap 5 (5-15); BUN 15 mg/dL (7-18); BUN/Creat Ratio 17.1 RATIO (10-20); Chloride 106 mmol/L (98-107); Creatinine, Serum 0.88 mg/dL (0.70-1.30); EST Glomerular Filtration Rate 92 mL/min (>60); Est Glom Filt Rate - Afr Amer 111 mL/min (>60); Estimated Creatinine Clearance 78.81 ml/min; Glucose 157 mg/dL (74-106); Potassium 3.9 mmol/L (3.5-5.1); Sodium Level 139 mmol/L (136-145)
[2019-04-29 20:28] VITALS: BP 111/70; PULSE 82; RESP 14; O2SAT 98
[2019-04-29 21:17] VITALS: BP 115/64; PULSE 80; RESP 14; O2SAT 98
== END 2019-04-29 21:18 | disposition home or self-care (01) ==
PROVIDERS: Emergency Provider Emergency Medicine; Family Provider Family Medicine; PCP Family Medicine
DX: R55 Syncope and collapse (principal); Z95.5 Presence of coronary angioplasty implant and graft
CPT/HCPCS: 71045; 80048; 84484; 85025; 93005; 96360; 99285; J7030; A4216

== ENCOUNTER 2019-05-13 08:00 | Outpatient (RCR) | payer MEDICARE, SELFPAY ==
[2019-04-13 14:52] VITALS: BMI 33.3
[2019-04-25 10:36] VITALS: BMI 36.4
== END 2019-05-14 23:59 ==
LOC: CR 08:00
PROVIDERS: Family Provider Family Medicine; PCP Family Medicine; Referring Provider Internal Medicine Cardiovascular Disease; Visit Provider Internal Medicine Cardiovascular Disease
DX: Z95.5 Presence of coronary angioplasty implant and graft (principal); I25.10 Atherosclerotic heart disease of native coronary artery without angina pectoris
CPT/HCPCS: 93798

== ENCOUNTER 2019-06-13 08:00 | Outpatient (RCR) | payer MEDICARE, SELFPAY ==
[2019-04-13 14:52] VITALS: BMI 33.3
[2019-05-04 08:50] VITALS: BMI 34.3
--- NOTE | 2019-05-25 10:11 | PCM.CR.ITP ---
General Information - General Information Admitting Diagnosis: PCI with stent - Education/Goals Barriers to Learning: None Cardiac Rehabilitation Goals: 1. Maintain the individual as the primary focus of care. 2. To improve the patient's quality of life. 3. Identification of cardiac risk factors and provide cardiac risk factor management. 4. Enhance the psychosocial status of the patient. 5. Reconditioning enough to allow the patient to resume customary activities. 6. Control symptoms of cardiac disease Scale for measuring improvement of personal goals: Enter appropriate number in Comments. 2 = Unchanged. 3 = Slightly Better. 4 = Moderate Improvement. 5 = Met my Goal Exercise - 30-day Assessment - Visit Date of Eval: 05/25/19 Session #:: 10 - Stages of Change Stages of Change:: Action - Physician Prescribed Exercise Modalities: Treadmill, Airdyne, NuStep Frequency (days/week): 3 Duration (Minutes):: 30-45 Intensity: 60-80% age predicted maximum heart rate reserve METs - Progression: 0.5-1.0 MET, RPE 11-14 WEEK: 4 Target Heart Rate:: 102-130 - Hypertension Resting Blood Pressure:: 118/64 Peak Exercise Blood Pressure:: 140/80 Medication Changes:: No - Intervention Home Exercise/Activity Goal:: Sitting Time <3 hrs/day - Education Goals:: Warm-up, RPE JEREMIAS Scale, S/S, Safe Exercise, Self-Monitoring - Exercise Program Goals Exercise Program Goals: Aerobic Activity >30 min, B/P <130/80 Nutrition - Initial Assessment - Program Goals Nutrition Program Goals: LDL <70. Total Cholesterol <200. HDL >45. Triglycerides <150. HgbA1C <7%. BMI <25 - Diabetes Do you monitor your blood sugar at home?: Yes Nutrition - 30-Day Assessment - Program Goals Nutrition Program Goals: LDL <70. Total Cholesterol <200. HDL >45. Triglycerides <150. HgbA1C <7%. BMI <25 - Visit Date of Eval: 05/25/19 - Stages of Change Stages of Change:: Action - Lipids Has the patient seen the dietitian?: No - Diabetes Diabetes:: Yes Insulin: Yes Non-Insulin Dependent?: Yes Random Blood Glucose:: 135 - Weight Management Weight:: 103.419 kg - Intervention Referral to dietitian:: No Referral to Diabetic Clinic:: No Will attend diet classes:: Yes - Education Attended class for:: Signs & symptoms of hypoglycemia, Signs & symptoms of hyperglycemia, Relate diabetes to coronary artery disease, Healthy eating Tobacco - Initial Assessment - Program Goals Tobacco Program Goals: Complete smoking cessation. Attend education classes. Improve Knowledge Test score - Learning Barriers Learning Barriers: Vision - wears glasses for vision correction Tobacco - 30-Day Assessment - Program Goals Tobacco Program Goals: Complete smoking cessation. Attend education classes. Improve Knowledge Test score - Stage of Change Stages of Change:: Action - Learning Barriers Learning Barriers: Participates in education - Family Support Do you have family support?: Yes - Tobacco Use Tobacco Use: Non-smoker Do you use smokeless tobacco?: No - Intervention Smoking Cessation Referral:: No Individual Education/Counseling:: No Education Schedule Given:: Yes - Education Attended class for:: Treating Heart Disease, How The Heart Works, What it means to have Heart Disease, How Coronary Artery Disease is Diagnosed, Heart Procedures, What Heart Medications Do, Risk Factors & Modifications, Living an Active Life, Nutrition, Emotions & Heart Disease, Stress Management & Relaxation, Sleep Disorders & Heart Disease Psychosocial - Initial Assess - Target Goals Target Goals: Assess presence or absence of depression. Using a valid screening tool, maximizes coping skills. Positive support system - Psychosocial Test Tool Used:: HANDS Depression Questionnaire - Assistive Devices Fall Risk Assessed:: Yes Psychosocial - 30-Day Assess - Target Goals Target Goals: Assess presence or absence of depression. Using a valid screening tool, maximizes coping skills. Positive support system - Stages of Change Stages of Change:: Action - Psychosocial Test Tool Used:: HANDS Depression Questionnaire - Intervention PS - Interventions: Yes Attend Stress Management Classes, Yes Uses Stress Management Skills, No Referral to Mental Health, No Referral to [facility] Case Management, No Referral to Physician - Education Attended classes for:: Coping techniques, Signs & symptoms of depression, Stress management, Relaxation techniques - Assistive Devices Assistive Devices:: None Fall Risk Assessed:: Yes Patient Health Questionnaire 30-Day Re-eval Assessment 1. Little interest or pleasure in doing things: Several days 2. Feeling down, depressed, or hopeless: Not at all 3. Trouble falling or staying asleep, or sleeping too much: Not at all 4. Feeling tired or having little energy: More than half the days 5. Poor appetite or overeating: Not at all 6. Feeling bad about yourself -- or that you are a failure or have let yourself or your family down: Several days 7. Trouble concentrating on things, such as reading the newspaper or watching television: Not at all 8. Moving or speaking so slowly that other people could have noticed. Or the opposite - being so fidgety or restless that you have been moving around a lot more than usual: Not at all 9. Thoughts that you would be better off , or of hurting yourself in some way: Not at all How difficult have these problems made it for you to do your work, take care of things at home, or get along with other people?: Not difficult at all Total Score: 4 Self-Efficacy 30-Day Re-eval Assessment We would like to know how confident you are in doing certain activities. Please select your confidence level for:: Select your confidence level for the following using the scale 1-10 where 1 is not at all confident and 10 is totally confident. Your score is the average of all 6 responses. Fatigue: How confident are you that you can keep the fatigue caused by your disease from interfering with the things you want to do? Select Number: 6 Physical Discomfort or Pain: How confident are you that you can keep the physical discomfort or pain of your disease from interfering with the things you want to do? Select Number: 6 Emotional Distress: How confident are you that you can keep the emotional distress caused by your disease from interfering with the things you want to do? Select Number: 5 Other Symptoms or Health Problems: How confident are you that you can keep other symptoms or health problems from interfering with the things you want to do? Select Number: 4 Different Tasks and Activities: How confident are you that you can do the different tasks and activities needed to manage your health condition so as to reduce your need to see a doctor? Select Number: 4 Medication: How confident are you that you can do things other than just taking medication to reduce how much your illness affects your everyday life? Select Number: 6 Total Score:: 5
[2019-05-25 10:16] VITALS: BP 118/64; BP 140/80
== END 2019-06-13 23:59 ==
LOC: CR 08:00
PROVIDERS: Family Provider Family Medicine; PCP Family Medicine; Referring Provider Internal Medicine Cardiovascular Disease; Visit Provider Internal Medicine Cardiovascular Disease
DX: I25.10 Atherosclerotic heart disease of native coronary artery without angina pectoris (principal); Z95.5 Presence of coronary angioplasty implant and graft
CPT/HCPCS: 93798

== ENCOUNTER 2019-07-13 08:00 | Outpatient (RCR) | payer MEDICARE, SELFPAY ==
[2019-04-13 14:52] VITALS: BMI 33.3
[2019-06-02 09:06] VITALS: BMI 34.3
[2019-06-14 01:02] VITALS: BP 118/64; BP 140/80
--- NOTE | 2019-06-27 08:44 | CR.ITP_ITS ---
Exercise - 60-Day Assessment - Visit Date of Eval: 06/27/19 Session #:: 23 - STARTED CR ON 05/02/2019 - Stages of Change Stages of Change:: Action - Physician Prescribed Exercise Modalities: Treadmill, Rower, Airdyne, NuStep Frequency (days/week): 3 Duration (Minutes):: 30-45 Intensity: 60-80% age predicted maximum heart rate reserve METs - Progression: 0.5-1.0 MET, RPE 11-14 WEEK: 4.5 INCREASE FROM Target Heart Rate:: 102-130 - Hypertension Resting Blood Pressure:: 118/54 Peak Exercise Blood Pressure:: 150/80 Medication Changes:: No - Intervention Home Exercise/Activity Goal:: Moderate Exercise 30 min/day x 5 days/wk - Education Goals:: Warm-up, RPE JEREMIAS Scale, S/S, Safe Exercise, Self-Monitoring - Exercise Program Goals Exercise Program Goals: Aerobic Activity >30 min Nutrition - Initial Assessment - Program Goals Nutrition Program Goals: LDL <70. Total Cholesterol <200. HDL >45. Triglycerides <150. HgbA1C <7%. BMI <25 - Diabetes Do you monitor your blood sugar at home?: Yes Nutrition - 60-Day Assessment - Program Goals Nutrition Program Goals: LDL <70. Total Cholesterol <200. HDL >45. Tr iglycerides <150. HgbA1C <7%. BMI <25 - Visit Date of Eval: 06/27/19 - Stages of Change Stages of Change:: Action - Lipids Has the patient seen the dietitian?: No - PATIENT DECLINED DIABETIC EDUCATION - Diabetes Diabetes:: Yes Insulin: Yes Non-Insulin Dependent?: Yes - Weight Management Weight:: 226 lb - Intervention Referral to dietitian:: No Referral to Diabetic Clinic:: No Will attend diet classes:: Yes - Education Attended class for:: Signs & symptoms of hypoglycemia, Signs & symptoms of hyperglycemia, Relate diabetes to coronary artery disease, Healthy eating Tobacco - Initial Assessment - Program Goals Tobacco Program Goals: Complete smoking cessation. Attend education classes. Improve Knowledge Test score - Learning Barriers Learning Barriers: Vision - wears glasses for vision correction Tobacco - 60-Day Assessment - Program Goals Tobacco Program Goals: Complete smoking cessation. Attend education classes. Improve Knowledge Test score - Learning Barriers Learning Barriers: Participates in education - Family Support Do you have family support?: Yes - Tobacco Use Tobacco Use: Non-smoker Do you use smokeless tobacco?: No - Intervention Smoking Cessation Referral:: No Individual Education/Counseling:: No Education Schedule Given:: Yes - Education Attended class for:: How The Heart Works, What it means to have Heart Disease, How Coronary Artery Disease is Diagnosed, Heart Procedures, What Heart Medications Do, Risk Factors & Modifications, Living an Active Life, Nutrition Psychosocial - Initial Assess - Target Goals Target Goals: Assess presence or absence of depression. Using a valid screening tool, maximizes coping skills. Positive support system - Psychosocial Test Tool Used:: HANDS Depression Questionnaire - Assistive Devices Fall Risk Assessed:: Yes Psychosocial - 60-Day Assess - Target Goals Target Goals: Assess presence or absence of depression. Using a valid screening tool, maximizes coping skills. Positive support system - Stages of Change Stages of Change:: Action - Psychosocial Test Tool Used:: HANDS Depression Questionnaire - Intervention PS - Interventions: Yes Attend Stress Management Classes, Yes Uses Stress Management Skills, No Referral to Mental Health, No Referral to [facility] Case Management, No Referral to Physician - Education Attended classes for:: Coping techniques, Signs & symptoms of depression, Stress management, Relaxation techniques - Patient/Program Goal Preventative Medication(s):: Aspirin, HEBER inhibitor, Clopidogrel, Beta yanna, Statin/lipid - PATIENT COMPLIANT WITH MEDICATIONS - Assistive Devices Assistive Devices:: None Fall Risk Assessed:: Yes Patient Health Questionnaire 60-Day Re-eval Assessment 1. Little interest or pleasure in doing things: Not at all 2. Feeling down, depressed, or hopeless: Not at all 3. Trouble falling or staying asleep, or sleeping too much: Not at all 4. Feeling tired or having little energy: Not at all 5. Poor appetite or overeating: Not at all 6. Feeling bad about yourself -- or that you are a failure or have let yourself or your family down: Not at all 7. Trouble concentrating on things, such as reading the newspaper or watching television: Not at all 8. Moving or speaking so slowly that other people could have noticed. Or the opposite - being so fidgety or restless that you have been moving around a lot more than usual: Not at all 9. Thoughts that you would be better off , or of hurting yourself in some way: Not at all How difficult have these problems made it for you to do your work, take care of things at home, or get along with other people?: Not difficult at all Total Score: 0 Self-Efficacy 60-Day Re-eval Assessment We would like to know how confident you are in doing certain activities. Please select your confidence level for:: Select your confidence level for the following using the scale 1-10 where 1 is not at all confident and 10 is totally confident. Your score is the average of all 6 responses. Fatigue: How confident are you that you can keep the fatigue caused by your disease from interfering with the things you want to do? Select Number: 10 Physical Discomfort or Pain: How confident are you that you can keep the physical discomfort or pain of your disease from interfering with the things you want to do? Select Number: 10 Emotional Distress: How confident are you that you can keep the emotional distress caused by your disease from interfering with the things you want to do? Select Number: 10 Other Symptoms or Health Problems: How confident are you that you can keep other symptoms or health problems from interfering with the things you want to do? Select Number: 10 Different Tasks and Activities: How confident are you that you can do the different tasks and activities needed to manage your health condition so as to reduce your need to see a doctor? Select Number: 10 Medication: How confident are you that you can do things other than just taking medication to reduce how much your illness affects your everyday life? Select Number: 10 Total Score:: 10
[2019-06-27 08:50] VITALS: BP 118/54; BP 150/80
== END 2019-07-14 23:59 ==
LOC: CR 08:00
PROVIDERS: Family Provider Family Medicine; PCP Family Medicine; Referring Provider Internal Medicine Cardiovascular Disease; Visit Provider Internal Medicine Cardiovascular Disease
DX: I25.10 Atherosclerotic heart disease of native coronary artery without angina pectoris (principal); Z95.5 Presence of coronary angioplasty implant and graft
CPT/HCPCS: 93798

== ENCOUNTER 2019-07-29 08:00 | Outpatient (RCR) | payer MEDICARE, SELFPAY ==
[2019-04-13 14:52] VITALS: BMI 33.3
[2019-06-02 09:06] VITALS: BMI 34.3
[2019-07-15 01:00] VITALS: BP 118/54; BP 150/80
== END 2019-08-13 23:59 ==
LOC: CR 08:00
PROVIDERS: Family Provider Family Medicine; PCP Family Medicine; Referring Provider Internal Medicine Cardiovascular Disease; Visit Provider Internal Medicine Cardiovascular Disease
DX: I25.10 Atherosclerotic heart disease of native coronary artery without angina pectoris (principal); Z95.5 Presence of coronary angioplasty implant and graft
CPT/HCPCS: 93798

== ENCOUNTER → 2019-08-23 06:35 | Outpatient (CLI) | payer MEDICARE, SELFPAY ==
[2019-04-13 14:52] VITALS: BMI 33.3
[2019-08-10 10:12] VITALS: BMI 34.2
--- NOTE | 2019-08-23 17:15 | PFTCOMP ---
COMPLETE PULMONARY FUNCTION TEST INTERPRETATION Brief HPI: Patient is a 68 year old male, currently under the care of myself, who presents to [facility] for complete pulmonary function tests secondary to diagnosis of dyspnea. Respiratory therapist reports good effort and reproducible results. Interpretation: Forced expiration spirometry shows no large airways obstructive ventilatory defect with an FEV1 of 98% predicted. There is no significant bronchodilator response by strict ATS criteria. Spirograms are of good quality and plateau normally. The respiratory flow volume loop shows a normal pattern. Lung volumes by body plethysmography show a decreased total lung capacity at 4.93 L, 81% predicted. All other lung volumes are reduced symmetrically. Diffusion capacity by carbon monoxide is at the lower limit of normal at 75% predicted. The airway resistance is normal. No previous pulmonary function tests were available for review. Impression: Mild restrictive ventilatory defect with some decrease in DLCO.
== END ==
PROVIDERS: Family Provider Family Medicine; PCP Family Medicine; Referring Provider Internal Medicine Critical Care Medicine; Visit Provider Internal Medicine Critical Care Medicine
DX: R06.09 Other forms of dyspnea (principal)
CPT/HCPCS: 94060; 94726; 94729

== ENCOUNTER → 2019-08-24 12:41 | Outpatient (CLI) | payer MEDICARE, SELFPAY ==
[2019-04-13 14:52] VITALS: BMI 33.3
[2019-08-01 14:41] VITALS: BMI 34.2
[2019-08-10 10:12] VITALS: BMI 34.2
--- NOTE | 2019-08-24 12:43 | ART_ITS ---
Reason For Study: Claudication Procedure A bilateral lower extremity continuous wave Doppler with analog waveform analysis,segmental pressures,and ankle brachial indexes without exercise. Left Segmental Pressures Left brachial= 126mmHg. Left posterior tibial artery = 167mmHg. Left dorsalis pedis artery = 152mmHg. Left digit = 119 mmHg. The left posterior tibial artery waveforms are triphasic. The left dorsalis pedis waveforms are triphasic. Right Segmental Pressures Right brachial= 124mmHg. Right posterior tibial artery = 155mmHg. Right dorsalis pedis artery = 152mmHg. Right digit = 93 mmHg. The right posterior tibial artery waveforms are triphasic. The right dorsalis pedis waveforms are triphasic. Indices The right ankle brachial index by the posterior tibial artery is 1.23. The right ankle brachial index by the dorsalis pedis is 1.21. The right digital-brachial index is 0.74. The left ankle brachial index by the posterior tibial artery is 1.33. The left ankle brachial index by the dorsalis pedis is 1.21. The left digital-brachial index is 0.94. Interpretation Summary 1. Normal perfusion at rest with triphasic flow and SHARONDA 1.23 and 1.33. Ordering Physician: Carlos Eduardo Hinds Referring Physician: Carlos Eduardo Hinds Performed By: Ana Laura Hinds RDCS/RVT
--- NOTE | 2019-08-24 12:43 | ECHOCS_ITS ---
Reason For Study: CHF Procedure This was a 2D Doppler, Color Flow transthoracic echocardiogram. The study was technically difficult. Contrast injection was performed. Left Ventricle Normal size and thickness. The estimated ejection fraction is 60 %. Stage 1 diastolic dysfunction. Septal motion consistent with IVCD. There are regional wall motion abnormalities as specified. Basal anteroseptal: Mildly hypokinetic. Right Ventricle Normal size and thickness. Normal systolic function. Atria Normal left atrium. Normal right atrium. Normal atrial septum. Mitral Valve The mitral valve is structurally normal. No prolapse or stenosis seen. Tricuspid Valve Normal tricuspid valve. Trivial tricuspid valve insufficiency. Right ventricular systolic pressure estimated to be 25 mmHg. Aortic Valve Normal aortic valve. Trisinus/trileaflet aortic valve. Pulmonic Valve Normal pulmonic valve. Great Vessels Normal aortic root. Normal arch. Normal inferior vena cava. Inferior vena cava collapse with sniff. Pericardium/Pleural No pericardial effusion. Medication 22 gauge I.V. with prn adaptor inserted into right arm. Diluted definity 3.0ml given slow IV push to enhance endocardial definition. MMode/2D Measurements & Calculations LVIDd: 4.5 cm IVSd: 1.2 cm Ao root diam: 3.2 cm LVIDs: 3.3 cm LVPWd: 0.98 cm RVDd: 3.4 cm FS: 27.7 % LAV(MOD-bp): 56.2 ml LA A4 area: 18.6 cm2 LA dimension(2D): 4.2 cm LAV(MOD-bp) Indexed: 26.1 ml/m2 LAV(MOD-sp2): 52.7 ml LAV(MOD-sp4): 52.4 ml RA A4 area: 15.4 cm2 Time Measurements MV dec time: 0.17 sec Doppler Measurements & Calculations MV E max cuco: 83.1 cm/sec Lat Peak E' Cuco: 8.4 cm/sec Med Peak E' Cuco: 7.6 cm/sec MV A max cuco: 102.9 cm/sec E/E' lat: 9.9 E/E' med: 10.9 MV E/A: 0.81 Ao V2 max: 105.5 cm/sec LV V1 max: 98.6 cm/sec PA V2 max: 79.9 cm/sec Ao max P.5 mmHg LV V1 max P.9 mmHg TR max cuco: 225.0 cm/sec TR max P.3 mmHg Interpretation Summary The estimated ejection fraction is 60 %. Stage 1 diastolic dysfunction. There are regional wall motion abnormalities as specified. Basal anteroseptal: Mildly hypokinetic Trivial tricuspid valve insufficiency. Right ventricular systolic pressure estimated to be 25 mmHg. Compared to echo report dated 01/05/2019, no appreciable changes noted. The study was technically difficult. Contrast injection was performed. Ordering Physician: Carlos Eduardo iHnds Referring Physician: Maya Pradhan Performed By: Caren Ruby, KASIA, RVT
== END ==
PROVIDERS: Family Provider Family Medicine; PCP Family Medicine; Referring Provider Nurse Practitioner Family; Visit Provider Nurse Practitioner Family
DX: R06.09 Other forms of dyspnea (principal); I25.10 Atherosclerotic heart disease of native coronary artery without angina pectoris; I73.9 Peripheral vascular disease, unspecified; E78.5 Hyperlipidemia, unspecified; R53.83 Other fatigue; I11.0 Hypertensive heart disease with heart failure; I50.9 Heart failure, unspecified; Z95.5 Presence of coronary angioplasty implant and graft
CPT/HCPCS: 93306; 93923; Q9957; A4216; C8929

== ENCOUNTER → 2019-11-23 | Outpatient (CLI) | payer MEDICARE, SELFPAY ==
[2019-04-13 14:52] VITALS: BMI 33.3
[2019-11-01 10:13] VITALS: BMI 34.9
[2019-11-23 09:51] LABS: AST(SGOT) 23 U/L (15-37); Alanine Aminotransfer ALT/SGPT 46 U/L (16-61); Albumin, Serum 3.4 g/dL (3.2-5.0); Alkaline Phosphatase 50 U/L (45-117); Bilirubin, Direct 0.19 mg/dL (0.00-0.30); Cholesterol 168 mg/dL (200); Globulin 4.1 g/dL (2.2-4.2); High Density Lipoprotein 41 mg/dL; Protein, Total 7.5 g/dL (6.4-8.2); Triglycerides 104 mg/dL; Very Low Density Lipoprotein 21 mg/dL (5-40)
== END | disposition home or self-care (01) ==
LOC: LAB 08:20
PROVIDERS: PCP Family Medicine; Referring Provider Internal Medicine Cardiovascular Disease; Visit Provider Internal Medicine Cardiovascular Disease
DX: E78.5 Hyperlipidemia, unspecified (principal); I25.10 Atherosclerotic heart disease of native coronary artery without angina pectoris; R30.0 Dysuria
CPT/HCPCS: 36415; 80061; 80076; 87086; 87088

== ENCOUNTER → 2020-01-20 | Outpatient (CLI) | payer MEDICARE, SELFPAY ==
[2019-04-13 14:52] VITALS: BMI 33.3
[2019-11-01 10:13] VITALS: BMI 34.9
--- NOTE | 2020-01-20 07:40 | VDLE_ITS ---
Reason For Study: pain RIGHT GSV is normal. CFV is compressible, spontaneous, phasic, competent and demonstrates normal augmentation. FV is compressible, spontaneous, phasic, competent and demonstrates normal augmentation. POP V is compressible, spontaneous, phasic, competent and demonstrates normal augmentation. T/P Trunk is compressible. PTV is compressible. RT PerV is compressible. Procedure Exam performed in department. The exam was abbreviated due to the COVID 19 protocol. The exam was diagnostic. A preliminary report was called and/or faxed to Dr. Pradhan. Interpretation Summary Deep veins of the right lower extremity are patent and compressible segmentally. There is no evidence of right lower extremity deep vein thrombosis. Valvular competence appears intact within the proximal deep venous system on the right . The right great saphenous vein appears patent and compressible segmentally. Ordering Physician: Maya Pradhan Performed By: Chandrakant Savage RVT
== END | disposition home or self-care (01) ==
LOC: CVS 07:37
PROVIDERS: PCP Family Medicine; Referring Provider Family Medicine; Visit Provider Family Medicine
DX: M79.604 Pain in right leg (principal); I83.891 Varicose veins of right lower extremity with other complications
CPT/HCPCS: 93971

== ENCOUNTER → 2020-01-25 | Outpatient (CLI) | payer MEDICARE, SELFPAY ==
[2019-04-13 14:52] VITALS: BMI 33.3
[2019-11-01 10:13] VITALS: BMI 34.9
[2020-01-25 15:14] LABS: Chlamydia Trachomatis by PCR Negative (Negative); Neisserai gonorrhoeae by PCR Negative (Negative); Probe Check PASS; Sample Adequacy Control PASS; Specimen Processing Control PASS
== END | disposition home or self-care (01) ==
LOC: BFHLAB 09:35
PROVIDERS: PCP Family Medicine; Visit Provider Family Medicine
DX: R36.9 Urethral discharge, unspecified (principal)
CPT/HCPCS: 87491; 87591

== ENCOUNTER → 2020-02-13 | Outpatient (CLI) | payer MEDICARE, SELFPAY ==
[2019-04-13 14:52] VITALS: BMI 33.3
[2019-11-01 10:13] VITALS: BMI 34.9
== END | disposition home or self-care (01) ==
LOC: SL 20:22
PROVIDERS: PCP Family Medicine; Referring Provider Internal Medicine Critical Care Medicine; Visit Provider Internal Medicine Critical Care Medicine
DX: G47.30 Sleep apnea, unspecified (principal)
CPT/HCPCS: 95810

== ENCOUNTER → 2020-02-29 | Outpatient (CLI) | payer MEDICARE, SELFPAY ==
[2019-04-13 14:52] VITALS: BMI 33.3
[2019-11-01 10:13] VITALS: BMI 34.9
== END | disposition home or self-care (01) ==
LOC: SL 20:00
PROVIDERS: PCP Family Medicine; Referring Provider Nurse Practitioner Acute Care; Visit Provider Nurse Practitioner Acute Care
DX: G47.30 Sleep apnea, unspecified (principal)
CPT/HCPCS: 95811

== ENCOUNTER → 2020-04-19 11:00 | Outpatient (CLI) | payer MEDICARE, SELFPAY ==
[2019-04-13 14:52] VITALS: BMI 33.3
[2020-04-12 08:21] VITALS: BMI 35.4
== END ==
PROVIDERS: PCP Family Medicine; Referring Provider Nurse Practitioner Acute Care; Visit Provider Nurse Practitioner Acute Care
DX: G47.33 Obstructive sleep apnea (adult) (pediatric) (principal)
CPT/HCPCS: 98960; G0463

== ENCOUNTER → 2020-08-07 09:07 | Outpatient (CLI) | payer MEDICARE, SELFPAY ==
[2019-04-13 14:52] VITALS: BMI 33.3
[2020-07-18 08:34] VITALS: BMI 34.9
[2020-08-07 12:06] LABS: Color, Urine Straw (Yellow); Glucose, Dipstick 50 mg/dl (Normal); Ketone-Dipstick Negative (Negative); Leukocyte Esterase-Dipstick Negative /ul (Negative); Nitrite-Dipstick Negative (Negative); Occult Blood-Urine Negative /ul (Negative); Protein-Dipstick 15 mg/dl (Negative); Urine Bilirubin Dipstick Negative (Negative); Urine Clarity Clear (Clear); Urine Urobilinogen Normal (Normal)
[2020-08-07 12:17] LABS: Absolute Lymphocyte Count 2.29 X10^3/uL (0.83-4.51); Absolute Neutrophil Count 3.9 X10^3/uL (2.0-7.7); Basophil# 0.04 X10^3/uL; Basophil% 0.6 % (0-1); Eosinophil# 0.08 X10^3/uL; Eosinophils% 1.1 % (0-5); Hematocrit 48.3 % (40-54); Hemoglobin 14.9 g/dL (13.0-16.5); Lymphocyte # 2.29 X10^3/ul (4.0); Lymphocyte % 31.9 % (19-41); Mean Corp Hgb Conc 30.8 g/dL (32-36); Mean Corpuscular Hgb 28.4 pg (27.0-32.0); Mean Platelet Vol. 10.5 fl (6.2-12.0); Monocyte# 0.83 X10^3/uL; Monocyte% 11.6 % (0-10); NRBC Flagged by Analyzer 0 % (0-5); Neutrophil # 3.91 X10^3/uL (2.7-7.7); Neutrophil % 54.4 % (47-70); Platelet Count 249 K/mm3 (150-450); RBC Distribution Width CV 13.4 % (11.6-14.6); RBC Distribution Width SD 46.4 fl (35.1-43.9); Red Blood Count 5.25 M/mm3 (4.6-6.2); White Blood Count 7.2 K/mm3 (4.4-11.0)
[2020-08-07 12:47] LABS: Microalbumin,Random Urine 45.6 mg/L (NO RANGE EST.); Microalbumin:Creatinine Ratio 50.1 mg/g CRE (<30 mg/g CRE)
[2020-08-07 12:48] LABS: ALB/GLOB Ratio 0.9 RATIO (0.9-2.4); AST(SGOT) 19 U/L (15-37); Alanine Aminotransfer ALT/SGPT 50 U/L (16-61); Albumin, Serum 3.6 g/dL (3.2-5.0); Alkaline Phosphatase 59 U/L (45-117); Anion Gap 5 (5-15); BUN 13 mg/dL (7-18); BUN/Creat Ratio 13.7 RATIO (10-20); Chloride 103 mmol/L (98-107); Cholesterol 200 mg/dL (200); Creatinine, Serum 0.95 mg/dL (0.70-1.30); EST Glomerular Filtration Rate 84 mL/min (>60); Est Glom Filt Rate - Afr Amer 101 mL/min (>60); Glucose 180 mg/dL (74-106); High Density Lipoprotein 48 mg/dL; PSA,Total - Annual Screen 2.14 ng/mL (0.00-4.00); Potassium 3.8 mmol/L (3.5-5.1); Protein, Total 7.6 g/dL (6.4-8.2); Sodium Level 137 mmol/L (136-145); Triglycerides 111 mg/dL; Very Low Density Lipoprotein 22 mg/dL (5-40)
== END ==
PROVIDERS: Internal Medicine Cardiovascular Disease; PCP Family Medicine; Visit Provider Family Medicine
DX: E78.00 Pure hypercholesterolemia, unspecified (principal); I25.2 Old myocardial infarction; I10 Essential (primary) hypertension; E11.65 Type 2 diabetes mellitus with hyperglycemia; Z12.5 Encounter for screening for malignant neoplasm of prostate; R53.83 Other fatigue; R30.0 Dysuria
CPT/HCPCS: 80053; 80061; 81002; 82043; 82570; 83036; 84153; 85025; 87086; G0103

== ENCOUNTER → 2020-10-12 10:21 | Outpatient (CLI) | payer MEDICARE, SELFPAY ==
[2019-04-13 14:52] VITALS: BMI 33.3
[2020-10-12 09:32] VITALS: BMI 34.9
[2020-10-12 10:49] LABS: Absolute Lymphocyte Count 1.66 X10^3/uL (0.83-4.51); Absolute Neutrophil Count 4.2 X10^3/uL (2.0-7.7); Basophil# 0.04 X10^3/uL; Basophil% 0.6 % (0-1); Eosinophil# 0.05 X10^3/uL; Eosinophils% 0.7 % (0-5); Hematocrit 47.7 % (40-54); Hemoglobin 14.7 g/dL (13.0-16.5); Lymphocyte # 1.66 X10^3/ul (4.0); Lymphocyte % 24.6 % (19-41); Mean Corp Hgb Conc 30.8 g/dL (32-36); Mean Corpuscular Hgb 27.7 pg (27.0-32.0); Mean Corpuscular Volume 89.8 fL (80-94); Mean Platelet Vol. 9.9 fl (6.2-12.0); Monocyte# 0.74 X10^3/uL; NRBC Flagged by Analyzer 0 % (0-5); Neutrophil # 4.23 X10^3/uL (2.7-7.7); Neutrophil % 62.8 % (47-70); Platelet Count 241 K/mm3 (150-450); RBC Distribution Width CV 13.1 % (11.6-14.6); RBC Distribution Width SD 43.4 fl (35.1-43.9); Red Blood Count 5.31 M/mm3 (4.6-6.2); White Blood Count 6.7 K/mm3 (4.4-11.0)
[2020-10-12 11:14] LABS: Anion Gap 2 (5-15); BUN 18 mg/dL (7-18); BUN/Creat Ratio 20.2 RATIO (10-20); Calcium,Total 9.4 mg/dL (8.5-10.1); Chloride 102 mmol/L (98-107); Creatinine, Serum 0.89 mg/dL (0.70-1.30); EST Glomerular Filtration Rate 90 mL/min (>60); Est Glom Filt Rate - Afr Amer 109 mL/min (>60); Glucose 246 mg/dL (74-106); Potassium 4.3 mmol/L (3.5-5.1); Sodium Level 136 mmol/L (136-145)
[2020-10-12 11:16] LABS: BNP,B-Type NATRIURETIC PEPTIDE 25.9 pg/mL (0-100)
== END ==
PROVIDERS: PCP Family Medicine; Referring Provider Nurse Practitioner Family; Visit Provider Nurse Practitioner Family
DX: I25.10 Atherosclerotic heart disease of native coronary artery without angina pectoris (principal); R06.09 Other forms of dyspnea; I50.32 Chronic diastolic (congestive) heart failure; G47.33 Obstructive sleep apnea (adult) (pediatric); Z95.5 Presence of coronary angioplasty implant and graft
CPT/HCPCS: 36415; 80048; 83880; 85025

== ENCOUNTER 2020-11-07 11:38 | Outpatient (RCR) | payer MEDICARE, SELFPAY ==
[2019-04-13 14:52] VITALS: BMI 33.3
[2020-10-12 09:32] VITALS: BMI 34.9
[2020-12-10 09:52] VITALS: BMI 34.8
== END 2020-12-05 23:59 | disposition home or self-care (01) ==
LOC: IMMUN 11:38
PROVIDERS: PCP Family Medicine; Referring Provider Family Medicine; Visit Provider Family Medicine
DX: Z23 Encounter for immunization (principal)
CPT/HCPCS: 0011A; 0012A; 91301

== ENCOUNTER → 2021-02-04 14:10 | Outpatient (CLI) | payer MEDICARE, SELFPAY ==
[2019-04-13 14:52] VITALS: BMI 33.3
[2020-12-10 09:52] VITALS: BMI 34.8
--- NOTE | 2021-02-04 14:32 | VDLE_ITS ---
Reason For Study: BLE PAIN/EDEMA RIGHT LEFT GSV is normal. GSV is normal. CFV is compressible, spontaneous, phasic, CFV is compressible, spontaneous, phasic, competent and demonstrates normal competent, and demonstrates normal augmentation. augmentation. FV is compressible, spontaneous, phasic, FV is compressible, spontaneous, phasic, competent and demonstrates normal competent and demonstrates normal augmentation. augmentation. POP V is compressible, spontaneous, phasic, POP V is compressible, spontaneous, phasic, competent and demonstrates normal competent and demonstrates normal augmentation. augmentation. T/P Trunk is compressible. T/P Trunk is compressible. PTV is compressible. PTV is compressible. RT PerV is compressible. LT PerV is compressible. Procedure This is a venous duplex using B-mode, color flow and spectral Doppler. Exam performed in department. The exam was diagnostic. A preliminary report was called and/or faxed to Dr. Pradhan @ [phone] @ 3:25 pm. VL/Venous Duplex US - Bonifacio Extrem Interpretation Summary Deep veins of the lower extremities are bilaterally patent and compressible seg mentally. There is no evidence of deep vein thrombosis on either side. Valvular competence appears in tact within the proximal deep venous systems bilaterally. The great saphenous veins appear bila terally patent and compressible segmentally. Ordering Physician: Maya Pradhan Referring Physician: Maya Pradhan Performed By: Caren Ruby, KASIA, RVT
[2021-02-04 14:51] LABS: Absolute Lymphocyte Count 1.87 X10^3/uL (0.83-4.51); Absolute Neutrophil Count 4.7 X10^3/uL (2.0-7.7); Basophil# 0.02 X10^3/uL; Basophil% 0.3 % (0-1); Eosinophil# 0.08 X10^3/uL; Eosinophils% 1.1 % (0-5); Hematocrit 45.2 % (40-54); Hemoglobin 14.4 g/dL (13.0-16.5); Lymphocyte # 1.87 X10^3/ul (0.83-4.51); Lymphocyte % 24.6 % (19-41); Mean Corp Hgb Conc 31.9 g/dL (32-36); Mean Corpuscular Hgb 28.4 pg (27.0-32.0); Mean Corpuscular Volume 89.2 fL (80-94); Mean Platelet Vol. 10.1 fl (6.2-12.0); Monocyte# 0.92 X10^3/uL; Monocyte% 12.1 % (0-10); NRBC Flagged by Analyzer 0 % (0-5); Neutrophil # 4.68 X10^3/uL (2.7-7.7); Neutrophil % 61.6 % (47-70); Platelet Count 246 K/mm3 (150-450); RBC Distribution Width CV 14.2 % (11.6-14.6); Red Blood Count 5.07 M/mm3 (4.6-6.2); White Blood Count 7.6 K/mm3 (4.4-11.0)
[2021-02-04 15:55] LABS: BNP,B-Type NATRIURETIC PEPTIDE 36.1 pg/mL (0-100)
[2021-02-04 16:04] LABS: ALB/GLOB Ratio 0.8 RATIO (0.9-2.4); AST(SGOT) 25 U/L (15-37); Alanine Aminotransfer ALT/SGPT 40 U/L (16-61); Albumin, Serum 3.3 g/dL (3.2-5.0); Alkaline Phosphatase 56 U/L (45-117); Anion Gap 7 (5-15); BUN 12 mg/dL (7-18); Calcium,Total 8.9 mg/dL (8.5-10.1); Chloride 103 mmol/L (98-107); Creatinine, Serum 0.92 mg/dL (0.70-1.30); EST Glomerular Filtration Rate 86 mL/min (>60); Est Glom Filt Rate - Afr Amer 104 mL/min (>60); Glucose 161 mg/dL (74-106); Potassium 3.9 mmol/L (3.5-5.1); Protein, Total 7.3 g/dL (6.4-8.2); Sodium Level 137 mmol/L (136-145)
== END ==
PROVIDERS: PCP Family Medicine; Visit Provider Family Medicine
DX: M79.661 Pain in right lower leg (principal); M79.662 Pain in left lower leg; R60.0 Localized edema; I50.31 Acute diastolic (congestive) heart failure; Z51.81 Encounter for therapeutic drug level monitoring
CPT/HCPCS: 36415; 80053; 83880; 85025; 93970

== ENCOUNTER → 2021-04-01 11:56 | Outpatient (CLI) | payer MEDICARE, SELFPAY ==
[2019-04-13 14:52] VITALS: BMI 33.3
[2021-03-27 10:17] VITALS: BMI 34.8
[2021-04-01 14:07] LABS: Anion Gap 4 (5-15); BUN 17 mg/dL (7-18); BUN/Creat Ratio 17.4 RATIO (10-20); Chloride 99 mmol/L (98-107); Creatinine, Serum 0.98 mg/dL (0.70-1.30); EST Glomerular Filtration Rate 81 mL/min (>60); Est Glom Filt Rate - Afr Amer 98 mL/min (>60); Glucose 213 mg/dL (74-106); Magnesium 2.2 mg/dL (1.6-2.6); Potassium 4.1 mmol/L (3.5-5.1); Sodium Level 135 mmol/L (136-145)
== END ==
PROVIDERS: PCP Family Medicine; Referring Provider Nurse Practitioner Family; Visit Provider Nurse Practitioner Family
DX: I50.32 Chronic diastolic (congestive) heart failure (principal); E83.42 Hypomagnesemia; R25.2 Cramp and spasm; R60.9 Edema, unspecified; Z79.899 Other long term (current) drug therapy
CPT/HCPCS: 36415; 80048; 83735

== ENCOUNTER → 2021-04-04 10:31 | Outpatient (CLI) | payer MEDICARE, SELFPAY ==
[2019-04-13 14:52] VITALS: BMI 33.3
[2020-12-10 09:52] VITALS: BMI 34.8
[2021-04-03 10:49] VITALS: BMI 34.5
--- NOTE | 2021-04-04 10:33 | ECHOCS_ITS ---
Reason For Study: CAD Procedure This was a 2D Doppler, Color Flow transthoracic echocardiogram. The study was technically difficult. Contrast injection was performed. Exam performed in department. Left Ventricle Normal LV size. Segmental dysfunction with preserved ejection fraction (see wall motion). The estimated ejection fraction is 55 %. No evidence for diastolic dysfunction. Mid-Anterior : Hypokinetic. [place]han : Akinetic. Right Ventricle Normal RV size. Normal systolic function. Atria Normal left atrium. Normal right atrium. No doppler evidence for ASD. Mitral Valve There is no mitral annular calcification. Normal mitral valve. Trivial mitral valve insufficiency. Tricuspid Valve Normal tricuspid valve. Trivial tricuspid valve insufficiency. Unable to estimate RV systolic pressure/pulmonary artery pressure due to technically difficult study. Aortic Valve Trisinus/trileaflet aortic valve. Mild focal aortic valve thickening. Pulmonic Valve The pulmonic valve is not well visualized. Great Vessels Normal sized aortic root. Pericardium/Pleural No pericardial effusion. Medication 22 gauge I.V. with prn adaptor inserted into right arm. Diluted definity 3.5ml given slow IV push to enhance endocardial definition. MMode/2D Measurements & Calculations LVIDd: 4.3 cm IVSd: 1.4 cm Ao root diam: 3.3 cm LVIDs: 2.6 cm LVPWd: 1.0 cm RVDd: 3.3 cm FS: 38.1 % LAV(MOD-bp): 48.9 ml LVAd ap4: 32.3 cm2 LVAd ap2: 29.7 cm2 LAV(MOD-bp) Indexed: 22.7 ml/m2 LVLd ap4: 7.8 cm LVLd ap2: 7.2 cm LAV(MOD-sp2): 35.6 ml EDV(MOD-sp4): 107.6 ml EDV(MOD-sp2): 101.5 ml LAV(MOD-sp4): 51.2 ml EDV(sp4-el): 113.1 ml EDV(sp2-el): 104.3 ml LVAs ap4: 21.2 cm2 LVAs ap2: 19.0 cm2 LVLs ap4: 6.9 cm LVLs ap2: 6.3 cm ESV(MOD-sp4): 54.0 ml ESV(MOD-sp2): 46.0 ml ESV(sp4-el): 55.9 ml ESV(sp2-el): 48.8 ml EF(MOD-sp4): 49.8 % EF(MOD-sp2): 54.7 % EF(sp4-el): 50.6 % SV(MOD-sp4): 53.6 ml SV(MOD-sp2): 55.5 ml SV(sp4-el): 57.3 ml LA A4 area: 18.8 cm2 LA dimension(2D): 3.9 cm RA A4 area: 11.0 cm2 Doppler Measurements & Calculations MV E max cuco: 69.4 cm/sec Lat Peak E' Cuco: 8.0 cm/sec Med Peak E' Cuco: 7.6 cm/sec MV A max cuco: 100.5 cm/sec E/E' lat: 8.7 E/E' med: 9.2 MV E/A: 0.69 Ao V2 max: 113.4 cm/sec LV V1 max: 102.2 cm/sec PA V2 max: 109.6 cm/sec Ao max P.1 mmHg LV V1 max P.2 mmHg ECHO/Echo Complete W/ Contrast Interpretation Summary The study was technically difficult. Contrast injection was performed. Segmental dysfunction with preserved ejection fraction (see wall motion). The estimated ejection fraction is 55 %. Trivial mitral valve insufficiency. Trivial tricuspid valve insufficiency. Mild focal aortic valve thickening. Unable to estimate RV systolic pressure/pulmonary artery pressure due to techni wade difficult study. No evidence for diastolic dysfunction. Ordering Physician: Kasia Childs/Sunil Serrano Referring Physician: Maya Pradhan Performed By: Hayde García RDCS
== END ==
PROVIDERS: PCP Family Medicine; Referring Provider Family Medicine; Visit Provider Family Medicine
DX: I25.10 Atherosclerotic heart disease of native coronary artery without angina pectoris (principal); R60.9 Edema, unspecified; Z86.79 Personal history of other diseases of the circulatory system
CPT/HCPCS: 93306; Q9957; A4216; C8929; J3490

== ENCOUNTER → 2021-04-23 12:31 | Outpatient (CLI) | payer MEDICARE, SELFPAY ==
[2019-04-13 14:52] VITALS: BMI 33.3
[2021-04-03 10:49] VITALS: BMI 34.5
[2021-04-23 13:06] VITALS: PULSE 110; PULSE 111; PULSE 114; PULSE 115; PULSE 116; PULSE 118; PULSE 94; O2SAT 89; O2SAT 90; O2SAT 91; O2SAT 94; O2SAT 95; O2SAT 96; O2SAT 98
--- NOTE | 2021-04-23 13:11 | CPS ---
At 445 into test he dropped to 87% placed on 2 LPM raised to 94% resumed walking at 615 into test and finished with O2 on at 2LPM. Removed it at rest after 2 mins of rest and it dropped to 93%
--- NOTE | 2021-04-24 09:52 | PCM.PSN.6M ---
PSN 6 Minute Walk Test 6 Minute Walk Test 6 Minute Walk Test: 6 Minute Walk Test PSN:6-Minute Walk Test Start: 04/23/21 13:05 Freq: Status: Active Protocol: [id number] Document 04/23/21 13:06 FR (Rec: 04/23/21 13:14 FR [id number]) 6 Minute Walk Test Date Performed 04/23/21 Time Performed 12:45 Height 5 ft 8 in Weight: 102.965 kg Weight in Pounds 227.[address]: Dr. Gifford FIO2 (% Oxygen) 0 Assistive device used: None Pre-test Oxygen Delivery Method Room Air Pulse Ox (%) 95 Pulse Rate (60-100 beats/min) 94 Dyspnea Edward Scale (0-10) 2 Exertion Edward Scale (6-20) 7 1st minute Oxygen Delivery Method Room Air Pulse Ox (%) 94 Pulse Rate (60-100 beats/min) 110 H 2nd minute Oxygen Delivery Method Room Air Pulse Ox (%) 91 Pulse Rate (60-100 beats/min) 116 H 3rd minute Oxygen Delivery Method Room Air Pulse Ox (%) 90 Pulse Rate (60-100 beats/min) 118 H Reported Symptoms Increased Work of Breathing 4th minute Oxygen Delivery Method Room Air Pulse Ox (%) 89 Pulse Rate (60-100 beats/min) 114 H Number of Rests Taken 1 Reported Symptoms Increased Work of Breathing 5th minute Oxygen Flow Rate (L/min) (L/min) 2 Oxygen Delivery Method Nasal Cannula Pulse Ox (%) 96 Pulse Rate (60-100 beats/min) 111 H 6th minute Oxygen Flow Rate (L/min) (L/min) 2 Oxygen Delivery Method Room Air Pulse Ox (%) 96 Pulse Rate (60-100 beats/min) 115 H Dyspnea Edward Scale (0-10) 4 Exertion Edward Scale (6-20) 10 Post-test Oxygen Flow Rate (L/min) (L/min) 2 Oxygen Delivery Method Nasal Cannula Pulse Ox (%) 98 Pulse Rate (60-100 beats/min) 94 Full Laps Walked 19 Partial Lap, Number of Tiles Walked 25 Total Distance Walked (ft) 1146 04/23/21 13:11 Cardiopulmonary Services by Krystyna Lee At 445 into test he dropped to 87% placed on 2 LPM raised to 94% resumed walking at 615 into test and finished with O2 on at 2LPM. Removed it at rest after 2 mins of rest and it dropped to 93% Initialized on 04/23/21 13:11 - END OF NOTE Interpretation Interpretation: The patient ambulated 1146 feet over the course of 6 minutes beginning on room air without assistive devices or breaks. Pretesting oxygen saturation was noted to be 95% on room air. With ambulation, the mike oxygen saturation was 87%. 2 L/min of supplemental oxygen was applied and the patient was able to complete the remainder of the test while maintaining appropriate oxygen saturations. Recommendations Recommendations: 2 L/min of supplemental oxygen should be utilized with exertion.
== END ==
PROVIDERS: PCP Family Medicine; Referring Provider Nurse Practitioner Acute Care; Visit Provider Nurse Practitioner Acute Care
DX: R06.09 Other forms of dyspnea (principal)
CPT/HCPCS: 94618

== ENCOUNTER → 2021-04-24 09:19 | Outpatient (CLI) | payer MEDICARE, SELFPAY ==
[2019-04-13 14:52] VITALS: BMI 33.3
[2021-04-03 10:49] VITALS: BMI 34.5
--- NOTE | 2021-04-25 13:38 | PFT ---
INTRODUCTION: The patient is a 70-year-old male that presents for pulmonary function studies secondary to a diagnosis of dyspnea. Respiratory therapy reported good patient effort. Bronchodilators were used during testing. INTERPRETATION: Forced expiration spirometry demonstrates no evidence of a large airways obstructive ventilatory defect. There was no significant response to aerosolized bronchodilators. Spirograms are of good quality and plateau normally. Body plethysmography was performed and revealed a decreased TLC to 4.55 L, 75% of predicted, indicative of a mild restrictive ventilatory impairment. Diffusing capacity by single breath CO is reduced at 69% of predicted. When compared to previous pulmonary function studies from August 2019, there has been a 50% reduction in FVC, 13% reduction in FEV1 and 10% reduction in diffusing capacity. IMPRESSION: Mild restrictive ventilatory impairment with symmetric reduction in diffusing capacity.
== END ==
PROVIDERS: PCP Family Medicine; Referring Provider Nurse Practitioner Acute Care; Visit Provider Nurse Practitioner Acute Care
DX: R06.09 Other forms of dyspnea (principal)
CPT/HCPCS: 94060; 94726; 94729

== ENCOUNTER 2021-06-25 09:30 | Outpatient (RCR) | payer MEDICARE, SELFPAY ==
[2019-04-13 14:52] VITALS: BMI 33.3
== END 2021-07-14 23:59 ==
LOC: DC 09:30
PROVIDERS: PCP Family Medicine; Visit Provider Family Medicine
DX: E11.65 Type 2 diabetes mellitus with hyperglycemia (principal); Z79.4 Long term (current) use of insulin
CPT/HCPCS: 97802; G0108

== ENCOUNTER 2021-07-23 08:30 | Outpatient (RCR) | payer MEDICARE, SELFPAY ==
[2019-04-13 14:52] VITALS: BMI 33.3
== END 2021-08-13 23:59 ==
LOC: DC 08:30
PROVIDERS: PCP Family Medicine; Visit Provider Family Medicine
DX: E11.65 Type 2 diabetes mellitus with hyperglycemia (principal); Z79.4 Long term (current) use of insulin
CPT/HCPCS: 97803; G0108

== ENCOUNTER → 2021-08-22 09:58 | Outpatient (CLI) | payer MEDICARE, SELFPAY ==
[2019-04-13 14:52] VITALS: BMI 33.3
[2021-08-22 10:50] LABS: BNP,B-Type NATRIURETIC PEPTIDE 10.7 pg/mL (0-100)
[2021-08-22 10:54] LABS: Anion Gap 5 (5-15); BUN 15 mg/dL (7-18); BUN/Creat Ratio 16.3 RATIO (10-20); Calcium,Total 9.3 mg/dL (8.5-10.1); Chloride 99 mmol/L (98-107); Creatinine, Serum 0.92 mg/dL (0.70-1.30); EST Glomerular Filtration Rate 87 mL/min (>60); Est Glom Filt Rate - Afr Amer 105 mL/min (>60); Glucose 143 mg/dL (74-106); Sodium Level 137 mmol/L (136-145)
== END ==
PROVIDERS: PCP Family Medicine; Referring Provider Nurse Practitioner Family; Visit Provider Nurse Practitioner Family
DX: E78.5 Hyperlipidemia, unspecified (principal); R06.09 Other forms of dyspnea; I10 Essential (primary) hypertension; I25.10 Atherosclerotic heart disease of native coronary artery without angina pectoris; R60.9 Edema, unspecified
CPT/HCPCS: 36415; 80048; 83880

== ENCOUNTER 2021-10-11 07:39 | Outpatient (CLI) | payer MEDICARE, SELFPAY ==
[2019-04-13 14:52] VITALS: BMI 33.3
[2021-10-11 08:11] LABS: Anion Gap 3 (5-15); BUN 11 mg/dL (7-18); BUN/Creat Ratio 12.6 RATIO (10-20); Chloride 100 mmol/L (98-107); Creatinine, Serum 0.87 mg/dL (0.70-1.30); EST Glomerular Filtration Rate 92 mL/min (>60); Est Glom Filt Rate - Afr Amer 111 mL/min (>60); Glucose 111 mg/dL (74-106); Potassium 4.3 mmol/L (3.5-5.1); Sodium Level 137 mmol/L (136-145)
== END 2021-10-11 23:59 | disposition short-term general hospital (02) ==
LOC: LAB 07:41
PROVIDERS: PCP Family Medicine; Referring Provider Nurse Practitioner Family; Visit Provider Nurse Practitioner Family
DX: E83.42 Hypomagnesemia (principal); I50.32 Chronic diastolic (congestive) heart failure
CPT/HCPCS: 36415; 80048

== ENCOUNTER 2021-10-30 09:13 | Outpatient (CLI) | payer MEDICARE, SELFPAY ==
[2019-04-13 14:52] VITALS: BMI 33.3
--- NOTE | 2021-10-30 09:19 | US_ITS ---
STUDY: SUPERFICIAL ULTRASOUND - POSTERIOR LEFT THIGH REASON FOR EXAM: Male, 71 years old. SWELLING TECHNIQUE: A superficial ultrasound was performed with real-time and static trivedi-scale imaging. COMPARISON: None. FINDINGS: The posterior aspect of the left thigh was examined with ultrasound. There is evidence of edematous changes within the skin and underlying soft tissues. No fluid collection or mass is seen. US/Ext Non Vasc Limited/Soft Tiss IMPRESSION: Findings suggestive of edematous changes of the skin and subcutaneous tissues. No fluid collection or mass is seen. Electronically Signed: Richmond lEizabeth MD at 10:00 EST ,
[2021-10-30 10:31] LABS: Absolute Lymphocyte Count 1.75 X10^3/uL (0.83-4.51); Absolute Neutrophil Count 5.4 X10^3/uL (2.0-7.7); Basophil# 0.04 X10^3/uL; Basophil% 0.5 % (0-1); Eosinophils% 1.2 % (0-5); Hematocrit 41.9 % (40-54); Hemoglobin 12.9 g/dL (13.0-16.5); Lymphocyte # 1.75 X10^3/ul (0.83-4.51); Lymphocyte % 21.5 % (19-41); Mean Corp Hgb Conc 30.8 g/dL (32-36); Mean Corpuscular Hgb 28.4 pg (27.0-32.0); Mean Corpuscular Volume 92.1 fL (80-94); Mean Platelet Vol. 9.7 fl (6.2-12.0); Monocyte# 0.81 X10^3/uL; NRBC Flagged by Analyzer 0 % (0-5); Neutrophil # 5.39 X10^3/uL (2.7-7.7); Neutrophil % 66.2 % (47-70); Platelet Count 293 K/mm3 (150-450); RBC Distribution Width CV 14.2 % (11.6-14.6); RBC Distribution Width SD 47.8 fl (35.1-43.9); Red Blood Count 4.55 M/mm3 (4.6-6.2); White Blood Count 8.1 K/mm3 (4.4-11.0)
[2021-10-30 10:46] LABS: ALB/GLOB Ratio 0.8 RATIO (0.9-2.4); AST(SGOT) 21 U/L (15-37); Alanine Aminotransfer ALT/SGPT 40 U/L (16-61); Albumin, Serum 3.1 g/dL (3.2-5.0); Alkaline Phosphatase 50 U/L (45-117); Anion Gap 4 (5-15); BUN 13 mg/dL (7-18); BUN/Creat Ratio 15.9 RATIO (10-20); Calcium,Total 8.9 mg/dL (8.5-10.1); Chloride 96 mmol/L (98-107); Creatinine, Serum 0.82 mg/dL (0.70-1.30); EST Glomerular Filtration Rate 99 mL/min (>60); Est Glom Filt Rate - Afr Amer 120 mL/min (>60); Ferritin 66 ng/mL (26-388); Free T3 2.2 pg/mL (2.18-3.98); Glucose 196 mg/dL (74-106); Iron 46 ug/dL (65-175); Potassium 4.4 mmol/L (3.5-5.1); Protein, Total 7.1 g/dL (6.4-8.2); Sodium Level 134 mmol/L (136-145); T4 Free Direct 0.99 ng/dL (0.76-1.46); Thyroid Stim Hormone (TSH) 2.64 uIU/mL (0.358-3.74)
== END 2021-10-30 23:59 | disposition home or self-care (01) ==
PROVIDERS: PCP Family Medicine; Referring Provider Family Medicine; Visit Provider Family Medicine
DX: T14.8XXA Other injury of unspecified body region, initial encounter (principal); E11.65 Type 2 diabetes mellitus with hyperglycemia; M79.652 Pain in left thigh; W19.XXXA Unspecified fall, initial encounter; E03.9 Hypothyroidism, unspecified; D64.9 Anemia, unspecified; R06.00 Dyspnea, unspecified
CPT/HCPCS: 36415; 76882; 80053; 82728; 83540; 84439; 84443; 84481; 85025

== ENCOUNTER 2021-11-21 06:22 | Outpatient (CLI) | payer MEDICARE, SELFPAY ==
[2019-04-13 14:52] VITALS: BMI 33.3
--- NOTE | 2021-11-21 16:57 | STRESSREP_ITS ---
Stress Test Report Pharmacologic myocardial perfusion stress test. Reason for evaluation dyspnea on exertion history of coronary disease. Stress protocol: Resting EKG demonstrates normal sinus rhythm with a rate of 92 bpm right bundle branch block is noted resting blood pressure is 138/76 mmHg. 0.4 mg of regadenoson was infused per usual protocol followed by intravenous saline flush injection continuous EKG monitoring performed. The maximum heart rate attained was 103 bpm which was 68% of max impact at heart rate the maximum workload was 1 metabolic equivalent. At rest there were no ST or T wave changes noted to suggest abnormal flow reserve and at peak infusion nonspecific ST changes were noted with did not meet the criteria for ischemia. No clinical angina was noted. Myocardial perfusion protocol. 14.4 mCi of technetium 99m sestamibi was injected at rest. 0.4 mg of regadenoson was infused per usual protocol. At peak infusion 44.7 mCi of t echnetium 99m sestamibi was injected stress images were obtained stress and rest images were reconstructed and compared in the short axis vertical long and horizontal long axis. Gated images were also obtained. Perfusion SPECT analysis: Review of the stress images demonstrate a defect noted in the apex on the stress and resting images suggestive of an apical infarct. There is also mild reductio n of perfusion noted in the mid anterior wall with normal perfusion noted in the other carter. The resting images demonstrate a persistent defect noted in the apex with mild improvement in the mid anterior wall suggestive of mild mid anterior ischemia. Gated SPECT analysis: The gated ejection fraction is 53%. Conclusion: Pharmacologic myocardial perfusion stress test with evidence of previous apical infarct. Mild mid anterior ischemia noted. Preserved ejection fraction.
== END 2021-11-21 23:59 | disposition home or self-care (01) ==
PROVIDERS: PCP Family Medicine; Referring Provider Nurse Practitioner Family; Visit Provider Nurse Practitioner Family
DX: R06.02 Shortness of breath (principal)
CPT/HCPCS: 78452; 93017; A9500; A4216; J2785

== ENCOUNTER 2021-12-06 06:50 | Day surgery (SDC) | payer MEDICARE, SELFPAY ==
[2019-04-13 14:52] VITALS: BMI 33.3
--- NOTE | 2021-11-29 12:40 | RAD_ITS ---
STUDY: XR Chest 2 Views 11/29/2021 12:46 PM REASON FOR EXAM: Male, 71 years old. Preop chest pain COMPARISON: None TECHNIQUE: XR Chest 2 Views FINDINGS: There is no demonstrated pleural abnormality. Normal heart size. Normal mediastinum. Normal calin. Prominent appearing increased interstitial lung markings. Normal visualized pulmonary arteries. There is atherosclerotic calcification of the aortic arch with tortuosity. There are diffuse degenerative changes of the visualized thoracic spine. There is degenerative osteoarthritis of the bilateral shoulders. There is no demonstrated abnormality of the visualized soft tissue structures of the upper abdomen. RAD/Chest PA and Lateral IMPRESSION: There are no acute findings. Electronically Signed: Lloyd Molina MD at 21:31 EDT ,
[2021-11-29 13:29] LABS: Absolute Lymphocyte Count 1.54 X10^3/uL (0.83-4.51); Absolute Neutrophil Count 5.3 X10^3/uL (2.0-7.7); Basophil# 0.05 X10^3/uL; Basophil% 0.6 % (0-1); Eosinophil# 0.14 X10^3/uL; Eosinophils% 1.8 % (0-5); Hematocrit 43.8 % (40-54); Lymphocyte # 1.54 X10^3/ul (0.83-4.51); Lymphocyte % 19.9 % (19-41); Mean Corpuscular Volume 90.9 fL (80-94); Monocyte# 0.71 X10^3/uL; Monocyte% 9.2 % (0-10); NRBC Flagged by Analyzer 0 % (0-5); Neutrophil # 5.26 X10^3/uL (2.7-7.7); Neutrophil % 68.2 % (47-70); Platelet Count 259 K/mm3 (150-450); RBC Distribution Width CV 13.8 % (11.6-14.6); RBC Distribution Width SD 46.5 fl (35.1-43.9); Red Blood Count 4.82 M/mm3 (4.6-6.2); White Blood Count 7.7 K/mm3 (4.4-11.0)
[2021-11-29 14:13] LABS: Anion Gap -1 (5-15); BUN 12 mg/dL (7-18); BUN/Creat Ratio 14.1 RATIO (10-20); Chloride 98 mmol/L (98-107); Creatinine, Serum 0.85 mg/dL (0.70-1.30); EST Glomerular Filtration Rate 95 mL/min (>60); Est Glom Filt Rate - Afr Amer 115 mL/min (>60); Glucose 204 mg/dL (74-106); Potassium 4.4 mmol/L (3.5-5.1); Sodium Level 134 mmol/L (136-145)
[2021-12-05 08:00] VITALS: BMI 35.1
--- NOTE | 2021-12-06 09:08 | CL.D_ITS ---
Patient Name: BLANCA GILL Study Date: 12/06/2021 Performing: Yuval Ayala MD Ht: 68.11 inches 173 cm : 1950 Wt: 231.49 lbs 105 kg Age: 71 Gender: male BSA: 2.18 PROCEDURE(S) PERFORMED DC01-([id number])LHC/COR/LV CLINICAL PROFILE AND INDICATIONS Indications: Suspected CAD Heart Failure: None Stress/Imaging Date: 11/13/21Stress Test with SPECT MPI: Indeterminant CAD Presentations: Symptom unlikely to be ischemic. CONCLUSIONS Previously placed stents in the left anterior descending artery is patent with mild to moderate in-st ent stenosis. Distal vessels are noted to be small. Mild disease noted in the right coronary artery and left circumflex artery. RECOMMENDATIONS Medical therapy DESCRIPTION OF PROCEDURE The patient arrived to the procedure lab. The risks and benefits of the procedure as well as a full d escription of our services here and current unavailability of surgical backup were fully explained to the patient and/or their significant other prior to the catheterization. The Timeout was completed, verifying the correct patient and procedure. The patient's procedural site was prepped and draped in the usual fashion. Local anesthetic was given subcutaneously to right radial region with Lidocaine 2% . Using a modified Seldinger technique, arterial access was obtained via the right radial artery, a 6 Fr sheath was inserted. Right Coronary Artery selective angiography was performed in multiple views using a 5 Fr. 4.0 [place] catheter. Left Coronary Artery selective angiography was performed in multipl e views using a 5 Fr. 4.0 [place] catheter. Left Ventriculography was performed in MULTANI projection using a 5 Fr. Pigtail catheter. LV to AO pullback pressures were then recorded.The arterial sheath was pulled and a TR Band was applied for hemostasis CORONARY ANGIOGRAPHY DOMINANCE: Right Dominant LEFT HEART ASSESSMENT Left Ventricular Ejection Fraction: by LV Gram 50 % Anterior Hypokinesis - Mild Normal Left Ventricular systolic function LEFT MAIN: Angiographically normal LEFT ANTERIOR DESCENDING ARTERY: MID LAD: Moderate luminal irregularities up to 50% DISTAL LAD: Mild luminal irregularities CIRCUMFLEX ARTERY: Mild luminal irregularities RIGHT CORONARY ARTERY: Mild luminal irregularities less than 30% COMPLICATIONS No Complications PROCEDURE MEDICATIONS Versed 1 mg IV Fentanyl 50 mcg IV Versed 1 mg IV Oxygen: 2 L/min via nasal cannula Oxygen: 4 L/min via nasal cannula Oxygen: 6 L/min via nasal cannula Heparin given IA 12/06/2021 08:43:13 Verapamil 2.5mg, Ntg 100mcgs, 3000 units of Heparin given IA 12/06/2021 08:43:13 SUMMARY OF HEMODYNAMIC DATA Time AIR REST ECG 07:24:59 ECG 08:16:21 Art 173/71 (98) 08:36:24 AO 96/68 (82) SA 08:44:55 LV 107/17, 31 08:52:49 LV 108/19, 32 08:52:55 LV 104/22, 32 08:53:38 LV 101/20, 29 08:53:44 LVp 107/13, 33 08:53:53 AOp 29/10 (7) 08:53:58 Signed By Yuval Ayala MD On 12/06/2021 09:06:54 Yuval Ayala MD
== END 2021-12-06 23:59 | disposition home or self-care (01) ==
LOC: CLSP 06:50
PROVIDERS: PCP Family Medicine; Referring Provider Internal Medicine Cardiovascular Disease; Visit Provider Internal Medicine Cardiovascular Disease
DX: T82.855A Stenosis of coronary artery stent, initial encounter (principal); Z79.4 Long term (current) use of insulin; E11.9 Type 2 diabetes mellitus without complications; E66.9 Obesity, unspecified; I25.2 Old myocardial infarction; I25.10 Atherosclerotic heart disease of native coronary artery without angina pectoris; E78.5 Hyperlipidemia, unspecified; F41.9 Anxiety disorder, unspecified; I10 Essential (primary) hypertension; Z95.5 Presence of coronary angioplasty implant and graft; Z79.84 Long term (current) use of oral hypoglycemic drugs; Z79.899 Other long term (current) drug therapy; Z79.82 Long term (current) use of aspirin; X58.XXXA Exposure to other specified factors, initial encounter
CPT/HCPCS: 36415; 71046; 80048; 85025; 93458; 99152; 99153; J7040; C1769; C1894

== ENCOUNTER 2021-12-30 08:57 | Outpatient (CLI) | payer MEDICARE, SELFPAY ==
[2019-04-13 14:52] VITALS: BMI 33.3
--- NOTE | 2021-12-30 09:07 | ART_ITS ---
Reason For Study: PVD Procedure A bilateral lower extremity continuous wave Doppler with analog waveform analysis,segmental pressures,and ankle brachial indexes with exercise. Exercised PT on treadmill for 4 minutes at 1.9 MPH @ 5% incline. Exam was stopped due to SOB/MOMIN, no other symptoms. Left Segmental Pressures Left brachial= 147mmHg. Left posterior tibial artery = 182mmHg. Left dorsalis pedis artery = 181mmHg. Left digit = 197 mmHg. The left posterior tibial artery waveforms are triphasic. The left dorsalis pedis waveforms are triphasic. Right Segmental Pressures Right brachial= 149mmHg. Right posterior tibial artery = 177mmHg. Right dorsalis pedis artery = 192mmHg. Right digit = 145 mmHg. The right posterior tibial artery waveforms are triphasic. The right dorsalis pedis waveforms are triphasic. Indices The right resting ankle brachial index is 1.29. The right ankle brachial index by the posterior tibial artery is 1.19. The right ankle brachial index by the dorsalis pedis is 1.29. The right digital-brachial index is 0.97. The right ankle brachial index by the dorsalis pedis post exercise is 192. The left resting ankle brachial index is 1.22. The left ankle brachial index by the posterior tibial artery is 1.22. The left ankle brachial index by the dorsalis pedis is 1.21. The left digital-brachial index is 1.32. The left posterior tibial artery index post exercise is 189. VL/Lower Ext Art Exam w/ Exercise Interpretation Summary Triphasic Doppler waveforms are noted at ankle level bilaterally. Pulse-volume recordings appear satisfactory at all levels bilaterally, including low thigh, calf, ankle, and d igital levels. Resting ankle-brachial indices are normal bilaterally. Digital-brachial indices are normal bilaterally. The patient was exercised on a treadmill for 4 minutes at 1.9 MPH and a 5% incline, following which ankle pressures augmented bilaterally, a normal physiological r esponse. There is no evidence of significant arterial occlusive disease in the lower ext remities bilaterally. Ordering Physician: Ricardo Jones Referring Physician: Maya Pradhan Performed By: Caren Ruby RVT, [facility]
== END 2021-12-30 23:59 | disposition home or self-care (01) ==
LOC: CVS 08:58
PROVIDERS: PCP Family Medicine; Visit Provider Podiatrist
DX: I73.9 Peripheral vascular disease, unspecified (principal)
CPT/HCPCS: 93924

== ENCOUNTER → 2022-01-14 | Outpatient (CLI) | payer MEDICARE, SELFPAY ==
[2019-04-13 14:52] VITALS: BMI 33.3
--- NOTE | 2022-01-14 07:38 | VDLE_ITS ---
Reason For Study: pain and swelling RIGHT LEFT GSV is normal. GSV is normal. CFV is compressible, spontaneous, phasic, CFV is compressible, spontaneous, phasic, competent and demonstrates normal competent, and demonstrates normal augmentation. augmentation. FV is compressible, spontaneous, phasic, FV is compressible, spontaneous, phasic, competent and demonstrates normal competent and demonstrates normal augmentation. augmentation. POP V is compressible, spontaneous, phasic, POP V is compressible, spontaneous, phasic, competent and demonstrates normal competent and demonstrates normal augmentation. augmentation. T/P Trunk is compressible. T/P Trunk is compressible. PTV is compressible. PTV is compressible. RT PerV is compressible. LT PerV is compressible. Procedure This is a venous duplex using B-mode, color flow and spectral Doppler. Exam performed in department. The exam was diagnostic. A preliminary report was called and/or faxed to Dr. Jones. VL/Venous Duplex US - Bonifacio Extrem Interpretation Summary Deep veins of the lower extremities are bilaterally patent and compressible seg mentally. There is no evidence of deep vein thrombosis on either side. Valvular competence appears in tact within the proximal deep venous systems bilaterally. The great saphenous veins appear bila terally patent and compressible segmentally. Ordering Physician: Ricardo Jones Performed By: Chandrakant Savage, RVT
== END | disposition home or self-care (01) ==
LOC: CVS 07:37
PROVIDERS: PCP Family Medicine; Referring Provider Podiatrist; Visit Provider Podiatrist
DX: R60.0 Localized edema (principal); M79.661 Pain in right lower leg; M79.662 Pain in left lower leg; M79.89 Other specified soft tissue disorders
CPT/HCPCS: 93970

== ENCOUNTER → 2022-03-13 | Outpatient (CLI) | payer MEDICARE, SELFPAY ==
[2019-04-13 14:52] VITALS: BMI 33.3
== END | disposition home or self-care (01) ==
PROVIDERS: PCP Family Medicine; Visit Provider Family Medicine
DX: E11.621 Type 2 diabetes mellitus with foot ulcer (principal); L97.529 Non-pressure chronic ulcer of other part of left foot with unspecified severity
CPT/HCPCS: 87070; 87075; 87205

== ENCOUNTER → 2022-09-19 | Outpatient (CLI) | payer MEDICARE, SELFPAY ==
[2019-04-13 14:52] VITALS: BMI 33.3
--- NOTE | 2022-09-19 07:47 | CDU_ITS ---
Reason For Study: Carotid Bruit Rt. Velocities/BP Lt. Velocities/BP Prox CCA 63.6/6.0 cm/sec. Prox CCA 100.2/17.9 cm/sec. Mid CCA 68.3/11.6 cm/sec. Mid CCA 74.4/14.2 cm/sec. Dist CCA 66.7/11.0 cm/sec. Dist CCA 56.0/10.6 cm/sec. Prox ICA 58.9/9.5 cm/sec. Prox ICA 62.2/16.0 cm/sec. Mid ICA 60.9/8.2 cm/sec. Mid ICA 42.4/9.7 cm/sec. Dist ICA 47.9/12.7 cm/sec. Dist ICA 51.0/18.9 cm/sec. Rt. ICA/CCA = 0.9. Lt. ICA/CCA = 0.6. Prox ECA 87.1/3.6 cm/sec. Prox ECA 108.9/7.9 cm/sec. Rt. Vert. 22.5/4.7 cm/sec. Lt. Vert. 31.0/9.7 cm/sec. Right Extracranial There is intimal thickening but no significant atherosclerotic plaque noted in the right common carotid artery. There is homogeneous, irregular atherosclerotic plaque noted in the right internal carotid artery. There is intimal thickening but no significant atherosclerotic plaque noted in the right external carotid artery. Antegrade flow is noted in the right vertebral artery. Left Extracranial There is intimal thickening but no significant atherosclerotic plaque noted in the left common carotid artery. There is heterogeneous, irregular atherosclerotic plaque noted in the left internal carotid artery. There is intimal thickening but no significant atherosclerotic plaque noted in the left external carotid artery. Antegrade flow is noted in the left vertebral artery. VL/Carotid Duplex Ultrasound Interpretation Summary Mild (<50%) stenosis right extracranial internal carotid. Mild (<50%) stenosis left extracranial internal carotid. Patent and antegrade vertebrals bilaterally. Ordering Physician: Kasia Childs Referring Physician: Maya Pradhan Performed By: Zaid Krueger RVT
== END | disposition home or self-care (01) ==
LOC: CVS 07:44
PROVIDERS: PCP Family Medicine; Referring Provider Physician Assistant Medical; Visit Provider Physician Assistant Medical
DX: I65.23 Occlusion and stenosis of bilateral carotid arteries (principal); R09.89 Other specified symptoms and signs involving the circulatory and respiratory systems
CPT/HCPCS: 93880

== ENCOUNTER → 2022-12-15 | Outpatient (CLI) | payer MEDICARE, SELFPAY ==
[2019-04-13 14:52] VITALS: BMI 33.3
== END | disposition home or self-care (01) ==
LOC: BFHLAB 13:37
PROVIDERS: PCP Family Medicine; Visit Provider Family Medicine
DX: R05.9 Cough, unspecified (principal); B34.9 Viral infection, unspecified; Z20.822 Contact with and (suspected) exposure to COVID-19
CPT/HCPCS: 87635; U0003; U0005

== ENCOUNTER → 2023-02-19 | Outpatient (CLI) | payer MEDICARE, SELFPAY ==
[2019-04-13 14:52] VITALS: BMI 33.3
[2023-02-19 07:58] LABS: Absolute Lymphocyte Count 2.01 X10^3/uL (0.83-4.51); Basophil# 0.04 X10^3/uL; Basophil% 0.5 % (0-1); Eosinophil# 0.11 X10^3/uL; Eosinophils% 1.3 % (0-5); Hematocrit 47.4 % (40-54); Hemoglobin 14.5 g/dL (13.0-16.5); Lymphocyte # 2.01 X10^3/ul (0.83-4.51); Lymphocyte % 24.2 % (19-41); Mean Corp Hgb Conc 30.6 g/dL (32-36); Mean Corpuscular Hgb 27.2 pg (27.0-32.0); Mean Corpuscular Volume 88.8 fL (80-94); Mean Platelet Vol. 10.1 fl (6.2-12.0); Monocyte# 1.07 X10^3/uL; Monocyte% 12.9 % (0-10); NRBC Flagged by Analyzer 0 % (0-5); Neutrophil # 5.04 X10^3/uL (2.7-7.7); Neutrophil % 60.7 % (47-70); Platelet Count 249 K/mm3 (150-450); RBC Distribution Width CV 15.1 % (11.6-14.6); RBC Distribution Width SD 48.9 fl (35.1-43.9); Red Blood Count 5.34 M/mm3 (4.6-6.2); White Blood Count 8.3 K/mm3 (4.4-11.0)
[2023-02-19 08:29] LABS: ALB/GLOB Ratio 0.7 RATIO (0.9-2.4); AST(SGOT) 14 U/L (15-37); Alanine Aminotransfer ALT/SGPT 31 U/L (16-61); Albumin, Serum 3.2 g/dL (3.2-5.0); Alkaline Phosphatase 66 U/L (45-117); Anion Gap 5 (5-15); BUN 14 mg/dL (7-18); BUN/Creat Ratio 16.2 RATIO (10-20); Calcium,Total 9.4 mg/dL (8.5-10.1); Chloride 101 mmol/L (98-107); Cholesterol 196 mg/dL (200); Creatinine, Serum 0.86 mg/dL (0.70-1.30); EST Glomerular Filtration Rate 93 mL/min (>60); Est Glom Filt Rate - Afr Amer 112 mL/min (>60); Globulin 4.5 g/dL (2.2-4.2); Glucose 112 mg/dL (74-106); High Density Lipoprotein 43 mg/dL; Potassium 4.3 mmol/L (3.5-5.1); Protein, Total 7.7 g/dL (6.4-8.2); Sodium Level 139 mmol/L (136-145); Triglycerides 87 mg/dL; Very Low Density Lipoprotein 17 mg/dL (5-40)
[2023-02-19 08:56] LABS: Vitamin B12 315 pg/mL (211-911); Vitamin D,25 Hydroxy 35.8 ng/mL
[2023-02-19 09:30] LABS: Microalbumin,Random Urine 54.7 mg/L (NO RANGE EST.); Microalbumin:Creatinine Ratio 41.8 mg/g CRE (<30 mg/g CRE)
== END | disposition home or self-care (01) ==
LOC: LAB 07:12
PROVIDERS: PCP Family Medicine; Referring Provider Family Medicine; Visit Provider Family Medicine
DX: E11.9 Type 2 diabetes mellitus without complications (principal); E78.5 Hyperlipidemia, unspecified; R20.2 Paresthesia of skin; E55.9 Vitamin D deficiency, unspecified; Z51.81 Encounter for therapeutic drug level monitoring
CPT/HCPCS: 36415; 80053; 80061; 82043; 82306; 82570; 82607; 85025

== ENCOUNTER → 2023-04-01 | Outpatient (CLI) | payer MEDICARE, SELFPAY ==
[2019-04-13 14:52] VITALS: BMI 33.3
--- NOTE | 2023-04-01 10:22 | ECHOCS_ITS ---
Reason For Study: OLD FL, ASHD, EDEMA, SOB. Procedure This was a 2D Doppler, Color Flow transthoracic echocardiogram. The study was technically difficult. D/T body habitus. Contrast injection was performed. Exam performed in department. Left Ventricle Normal size and thickness. The left ventricular ejection fraction is 55 %. Normal diastology for age. Right Ventricle Normal right ventricle. Atria The left atrium is mildly enlarged. Normal right atrium. Mitral Valve The mitral valve is structurally normal. No prolapse or stenosis seen. Tricuspid Valve Normal tricuspid valve. Aortic Valve Normal aortic valve. Pulmonic Valve The pulmonic valve is not well visualized. Great Vessels Calcified aortic root. Pericardium/Pleural No pericardial effusion. Medication 22 gauge I.V. with prn adaptor inserted into right arm. Diluted definity 1.5ml given slow IV push to enhance endocardial definition. MMode/2D Measurements & Calculations LVIDd: 4.7 cm IVSd: 1.1 cm Ao root diam: 3.2 cm LVIDs: 3.7 cm LVPWd: 1.1 cm RVDd: 2.9 cm FS: 22.0 % LAV(MOD-bp): 65.7 ml LVAd ap4: 30.8 cm2 SV(MOD-sp4): 38.9 ml LAV(MOD-bp) Indexed: 29.8 ml/m2 LVLd ap4: 9.2 cm LAV(MOD-sp2): 59.5 ml EDV(MOD-sp4): 85.2 ml LAV(MOD-sp4): 56.6 ml EDV(sp4-el): 87.8 ml LVAs ap4: 20.6 cm2 LVLs ap4: 7.6 cm ESV(MOD-sp4): 46.4 ml ESV(sp4-el): 47.1 ml EF(MOD-sp4): 45.6 % EF(sp4-el): 46.3 % SV(sp4-el): 40.7 ml LA A4 area: 21.2 cm2 LA dimension(2D): 4.4 cm RA A4 area: 16.9 cm2 Time Measurements MV dec time: 0.21 sec Doppler Measurements & Calculations MV E max cuco: 70.1 cm/sec Lat Peak E' Cuco: 9.1 cm/sec Med Peak E' Cuco: 8.9 cm/sec MV A max cuco: 93.3 cm/sec E/E' lat: 7.7 E/E' med: 7.8 MV E/A: 0.75 MV dec slope: 333.3 cm/sec2 Ao V2 max: 123.9 cm/sec LV V1 max: 107.1 cm/sec Ao max P.1 mmHg LV V1 max P.6 mmHg Ao V2 mean: 93.5 cm/sec LV V1 mean P.6 mmHg Ao mean P.8 mmHg LV V1 mean: 76.2 cm/sec Ao V2 VTI: 27.0 cm LV V1 VTI: 23.2 cm AV (velocity ratio): 0.86 PA V2 max: 90.7 cm/sec ECHO/Echo Complete W/ Contrast Interpretation Summary The left ventricular ejection fraction is 55 %. Calcified aortic root. The study was technically difficult. Ordering Physician: Alex Crooks Referring Physician: Maya Pradhan Performed By: Caren Ruby, KASIA, RVT
== END | disposition home or self-care (01) ==
LOC: CVS 10:19
PROVIDERS: PCP Family Medicine; Referring Provider Internal Medicine Cardiovascular Disease; Visit Provider Internal Medicine Cardiovascular Disease
DX: I25.2 Old myocardial infarction (principal)
CPT/HCPCS: 93306; Q9957; A4216; C8929

== ENCOUNTER → 2023-07-09 | Outpatient (CLI) | payer MEDICARE, SELFPAY ==
[2019-04-13 14:52] VITALS: BMI 33.3
== END | disposition home or self-care (01) ==
LOC: LABSPEC 15:23
PROVIDERS: PCP Family Medicine; Referring Provider Family Medicine; Visit Provider Family Medicine
DX: I83.019 Varicose veins of right lower extremity with ulcer of unspecified site (principal); L97.919 Non-pressure chronic ulcer of unspecified part of right lower leg with unspecified severity; L03.115 Cellulitis of right lower limb
CPT/HCPCS: 87070; 87077; 87186; 87205

== ENCOUNTER → 2023-07-10 | Outpatient (CLI) | payer MEDICARE, SELFPAY ==
[2019-04-13 14:52] VITALS: BMI 33.3
--- NOTE | 2023-07-10 09:29 | VDLE_ITS ---
Reason For Study: RLE Pain RIGHT LEFT CFV is compressible, spontaneous, phasic, CFV is compressible, spontaneous, phasic, competent and demonstrates normal competent, and demonstrates normal augmentation. augmentation. FV is compressible, spontaneous, phasic, competent and demonstrates normal augmentation. POP V is compressible, spontaneous, phasic, competent and demonstrates normal augmentation. T/P Trunk is compressible. PTV is compressible. RT PerV is compressible. SFJ is competent and measures 0.40 cm. GSV proximal thigh measures 0.37 x 0.38 cm. GSV at knee measures 0.24 x 0.25 cm. GSV is competent throughout. ASV mid thigh is INCOMPETENT for greater than 0.5 seconds and measures 0.23 x 0.29 cm. SSV proximal calf is competent and measures 0.15 x 0.13 cm. Procedure This is a venous duplex using B-mode, color flow and spectral Doppler. Exam performed in department. The exam was diagnostic. VL/Venous Duplex US, Unilateral Interpretation Summary Deep veins of the right lower extremity are patent and compressible segmentally . There is no evidence of right lower extremity deep vein thrombosis. Valvular competence chandler ears intact within the proximal deep venous system on the right . The right great saphenous vein a ppears patent and compressible segmentally. The right sapheno-femoral junction is competent . The right great saphenous vein appears segmentally competent. The right small saphenous vein is patent and competent. The accessory saphenous vein in the right mid-thigh is incompetent. The left common femoral vein is patent and compressible . Ordering Physician: Maya Pradhan Referring Physician: Maya Pradhan Performed By: Zaid Krueger, RVT
== END | disposition home or self-care (01) ==
PROVIDERS: PCP Family Medicine; Visit Provider Family Medicine
DX: M79.604 Pain in right leg (principal); R60.0 Localized edema
CPT/HCPCS: 93971

== ENCOUNTER 2023-07-22 18:56 | Inpatient (IN) | payer MEDICARE, SELFPAY ==
[2019-04-13 14:52] VITALS: BMI 33.3
[2023-07-22 18:57] VITALS: BP 129/78; PULSE 84; RESP 16; TEMP 36.8; O2SAT 96
--- NOTE | 2023-07-22 19:15 | EKG12_ITS ---
Test Reason : DYSRHYTHMIA Blood Pressure : / mmHG Vent. Rate : 090 BPM Atrial Rate : 090 BPM P-R Int : 166 ms QRS Dur : 124 ms QT Int : 384 ms P-R-T Axes : 048 -52 019 degrees QTc Int : 469 ms Normal sinus rhythm Left axis deviation Right bundle branch block Inferior infarct , age undetermined Abnormal ECG Confirmed by ELVER EDWARDS, MADI ([id number]), design editor ZAFAR TEMPLE ([id number]) on 07/27/2023 10:37:09 AM Referred By: CALVIN Confirmed By:JULIAN RAYA MD
[2023-07-22 20:00] VITALS: BMI 38.7
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
[2023-07-22 21:04] VITALS: RESP 16
[2023-07-22 21:12] LABS: Absolute Lymphocyte Count 1.44 X10^3/uL (0.83-4.51); Basophil# 0.03 X10^3/uL; Basophil% 0.4 % (0-1); Eosinophils% 2.6 % (0-5); Hematocrit 40.3 % (40-54); Hemoglobin 12.9 g/dL (13.0-16.5); Lymphocyte # 1.44 X10^3/ul (0.83-4.51); Lymphocyte % 18.4 % (19-41); Mean Corpuscular Hgb 26.4 pg (27.0-32.0); Mean Corpuscular Volume 82.4 fL (80-94); Mean Platelet Vol. 9.2 fl (6.2-12.0); Monocyte# 1.11 X10^3/uL; Monocyte% 14.2 % (0-10); NRBC Flagged by Analyzer 0 % (0-5); Neutrophil # 5.01 X10^3/uL (2.7-7.7); Neutrophil % 64.1 % (47-70); Platelet Count 292 K/mm3 (150-450); RBC Distribution Width CV 14.8 % (11.6-14.6); RBC Distribution Width SD 45.1 fl (35.1-43.9); Red Blood Count 4.89 M/mm3 (4.6-6.2); White Blood Count 7.8 K/mm3 (4.4-11.0)
[2023-07-22 21:31] LABS: Anion Gap 2 (5-15); BUN 8 mg/dL (7-18); BUN/Creat Ratio 10.8 RATIO (10-20); Calcium,Total 8.6 mg/dL (8.5-10.1); Chloride 88 mmol/L (98-107); Creatinine, Serum 0.74 mg/dL (0.70-1.30); EST Glomerular Filtration Rate 110 mL/min (>60); Est Glom Filt Rate - Afr Amer 134 mL/min (>60); Estimated Creatinine Clearance 65.55 ml/min; Glucose 111 mg/dL (74-106); Potassium 3.9 mmol/L (3.5-5.1); Sodium Level 123 mmol/L (136-145)
[2023-07-22 21:38] LABS: Lactic Acid 0.9 mmol/L (0.4-1.9)
--- NOTE | 2023-07-22 22:13 | HP.PCM.HOS_ITS ---
[facility] - General General Date of Admission: 07/22/23 Date of Service: 07/22/23 Chief Complaint: Worsening Right lower extremity cellulitis [facility] Narrative BLANCA MARCUS, is a 72 M with a past medical history of essential hypertension, hyperlipidemia, diabetes mellitus type 2; of unknown control, obesity with a BMI of 38.8 this admission, history of coronary artery disease; with previous STEMI in 2017 with subsequent stent placement, chronic diastolic CHF; with preserved LV ejection fraction, history of mild intermittent asthma, obstructive sleep apnea, restless leg syndrome, chronic lower extremity edema with chronic venous stasis, history of exploratory laparotomy, irritable bowel syndrome, generalized anxiety and recent diagnosed cellulitis of the right lower extremity; causing patient's PCP to start him on clindamycin who presents to [facility] ER complaining of worsening lower extremity cellulitis. Mr. Marcus reports his symptoms began a little over a week prior to admission with progressively worsening right lower extremity redness and swelling complicating his chronic venous stasis with superficial skin avulsions and weeping serous fluid from his wounds. His PCP started him on clindamycin and did a wound culture which came back positive for multiple multidrug-resistant organisms complicated by subsequent failure to significantly improve on this therapy. He is no longer able to wrap his legs and states he has also been gaining weight in spite of taking the Lasix 80 mg in the morning and 40 mg at night. He denies dietary indiscretion with sodium and claims he has persistent 3+ edema in his right lower extremity from the knee to the foot. A review of his allergy profile shows documented allergies to penicillin, ciprofloxacin and clarithromycin which are alleged to cause shortness of breath, hives and swelling respectively. He denies associated fever, chills, nausea, vomiting, chest pain or palpitations but he does admit to severely increased life stress after the recent of his beloved for whom he was the primary caregiver which caused him to ignore his own health challenges until now. In the ER he was diagnosed with severe right lower extremity cellulitis that failed o utpatient antibiotic treatment complicated by laboratory evidence of acute hypervolemic hyponatremia with sodium of 123 mmol/L present on admission in the setting of chronic right lower extremity edema with chronic venous stasis and he was then admitted to the general medical floor for ongoing care for a stay that is expected to be greater than 48 hours. [facility] Medical History Abnormal nuclear stress test Anxiety Asthma Atherosclerotic heart disease of [place] coronary artery without angina pectoris Carotid bruit Chronic diastolic (congestive) heart failure 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 disease Diabetes mellitus, type 2 Edema Essential hypertension History of ST elevation myocardial infarction (STEMI) (07/11/17) Hyperlipidemia Hypomagnesemia IBS (irritable bowel syndrome) Inappropriate sexual behavior Lower extremity edema Muscle cramps Neck pain 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.9) KRISTI (obstructive sleep apnea) Restless legs Shortness of breath Home Medications metformin 1,000 mg tablet 1,000 mg PO BIDCM diabetes 01/17/16 [History Last Taken 04/12/19] montelukast 10 mg tablet 10 mg PO QHS allergies 01/17/16 [History Last Taken 12/07/18] acetaminophen 325 mg tablet 325 - 650 mg (1 - 2 x 325 mg) PO Q6H PRN PRN Pain 07/14/17 [Rx Last Taken Unknown] aspirin 81 mg tablet,delayed release 81 mg PO DAILY@0800 #30 tabs 07/14/17 [Rx Last Taken 12/06/21] buspirone 10 mg tablet 10 mg PO TID Anxiety 05/07/18 [History Last Taken 04/13/19] pramipexole 1 mg tablet 2 mg PO QHS headache 05/07/18 [History Last Taken 12/08/18 21:00] cholecalciferol (vitamin D3) 50 mcg (2,000 unit) capsule 2,000 unit PO BID supplement 12/08/18 [History Last Taken 12/08/18 08:00] coenzyme Q10 100 mg capsule 100 mg PO DAILY supplement 12/08/18 [History Last Taken 12/04/18] magnesium oxide 400 mg PO DAILY supplement 12/08/18 [History Last Taken 12/08/18 08:00] fluticasone propionate 50 mcg/actuation nasal spray,suspension 1 spray intranasal DAILY PRN nasal spray 04/05/20 [History Last Taken Unknown] alprazolam 0.25 mg tablet 0.25 mg PO DAILY PRN anxiety 10/12/20 [History Last Taken Unknown] glyburide 2.5 mg tablet 5 mg PO BID diabetes 10/12/20 [History Last Taken Unknow n] tizanidine 2 mg capsule 2 mg PO Q8H PRN Spasms 03/27/21 [History Last Taken Unknown] nitroglycerin 0.4 mg sublingual tablet 0.4 mg sublingual Q5M PRN Angina pain #25 tabs 11/29/21 [Rx Last Taken Unknown] insulin NPH isoph U-100 human 100 unit/mL subcutaneous suspension See Rx Instructions subcut BID diabetes 03/14/22 [History Last Taken Unknown] vitamin B complex 1 tab PO DAILY 03/14/22 [History Last Taken Unknown] albuterol sulfate 90 mcg/actuation aerosol inhaler (Ventolin HFA) 2 puff inhal ation Q4H PRN shortness of breath or wheezing #18 grams 09/16/22 [Rx Last Taken Unknown] clopidogrel 75 mg tablet 75 mg PO DAILY 04/28/23 [History Last Taken Unknown] pravastatin 40 mg tablet 40 mg PO DAILY 04/28/23 [History Last Taken Unknown] isosorbide mononitrate 30 mg tablet,extended release 24 hr 30 mg PO DAILY #90 tabs 07/05/23 [Rx Last Taken Unknown] furosemide 40 mg tablet See Rx Instructions PO .COMPLEX #270 tabs 07/13/23 [Rx Last Taken Unknown] carvedilol 12.5 mg tablet 6.25 mg PO BID This is a dose increase 07/22/23 [History Last Taken Unknown] clindamycin HCl 300 mg capsule 300 mg PO Q12H 07/22/23 [History Last Taken Unknown] Allergy/AdvReac Type Severity Reaction Status Date / Time Penicillins Allergy Severe Shortness Verified 07/22/23 19:00 of breath quinine sulfate [From Quine] Allergy Severe passed out Verified 07/22/23 19:00 benzocaine [From Cetacaine] Allergy Swelling Verified 07/22/23 19:00 butamben [From Cetacaine] Allergy Swelling Verified 07/22/23 19:00 ciprofloxacin HCl Allergy Hives Verified 07/22/23 19:00 [From Cipro] clarithromycin [From Biaxin] Allergy Swelling Verified 07/22/23 19:00 exenatide [From Byetta] Allergy Rash Verified 07/22/23 19:00 folic acid Allergy Rash Verified 07/22/23 19:00 [From Proferrin-Forte] hyoscyamine sulfate Allergy Rash Verified 07/22/23 19:00 [From Levsin] iron heme polypeptide Allergy tongue Verified 07/22/23 19:00 [From Proferrin-Forte] swelling naproxen [From Naprosyn] Allergy Rash Verified 07/22/23 19:00 tetracaine [From Cetacaine] Allergy throat Verified 07/22/23 19:00 swelled shut venlafaxine HCl Allergy tongue Verified 07/22/23 19:00 [From Effexor] swelling ezetimibe [From Zetia] AdvReac Severe Myalgias, Verified 07/22/23 19:00 diarrhea mold AdvReac Severe PT UNSURE Verified 07/22/23 19:00 OF REACTION niacin AdvReac Severe PT UNSURE Verified 07/22/23 19:00 [From Niaspan OF REACTION Extended-Release] procainamide AdvReac Severe Anaphylactic/Resp. Verified 07/22/23 19:00 Distress atorvastatin calcium AdvReac Intermediate Mylagias Verified 07/22/23 19:00 [From Lipitor] rosuvastatin calcium AdvReac Intermediate Myalgias Verified 07/22/23 19:00 [From Crestor] diphenhydramine HCl AdvReac Restlessnes Verified 07/22/23 19:00 [From Benadryl] s Family History Mother Diabetes Hypertension Father Hypotension Brother Hypertension HLD (hyperlipidemia) Grandmother Diabetes Grandfather CVA (cerebral vascular accident) Diabetes Brother Cancer lung Surgical History History of appendectomy History of cholecystectomy History of coronary artery stent placement (04/13/19) History of dental surgery History of exploratory laparotomy History of left heart catheterization (12/06/21) History of left knee surgery History of vasectomy Status post excision of lipoma Social History Smoking Status: Never smoker second hand exposure: No alcohol intake: never substance use type: does not use caffeine: No seatbelt use: always do you feel safe at home: Yes ROS ROS Narrative Review of systems: Constitutional: Patient admits to lethargy but denies fever or chills Eyes: Patient denies blurry vision or changes in vision ENT: Patient denies runny nose or sore throat Cardiovascular: Patient denies chest pain or palpitations Respiratory: Patient denies cough or shortness of breath Gastrointestinal: Patient denies abdominal pain diarrhea nausea or vomiting Genitourinary: Patient denies dysuria, hematuria or urinary frequency Musculoskeletal: Patient denies back pain, neck pain or myalgias Integumentary: Patient has severe redness and discoloration of the right lower extremity Neurologic: He denies headache or focal neurologic weakness Psychiatric: Patient denies anxiety depression or suicidal thoughts Endocrine: Patient denies polydipsia polyphagia or polyuria Hematologic: Patient denies easy bleeding, easy bruising or lymphadenopathy Allergic: Patient denies mouth swelling, tongue swelling or urticaria 14 point review systems otherwise negative except for positives noted above in HPI. Vital Signs Vital Signs Vital Signs: 07/22/23 18:57 07/22/23 21:04 Temperature 98.2 F Temperature Source Temporal Pulse Rate 84 Respiratory Rate 16 16 Blood Pressure 129/78 H Blood Pressure Mean 95 Pulse Ox 96 Oxygen Delivery Method Room Air Room Air Weight Weight: 255 lb 1.197 oz Body Mass Index (BMI) 38.7 Physical Exam Const alert, oriented x3 and no apparent distress General Appearance: cooperative HEENT normocephalic, head/scalp atraumatic, hearing grossly normal bilaterally and moist oral mucous membranes Mouth: oral and palatal mucosa normal Eyes PERRL, EOMs intact bilaterally and conjunctivae normal Neck no lymphadenopathy, supple and no JVD Resp normal respiratory effort, no retractions, no use of accessory muscles and clear to auscultation bilaterally Cardio regular rate and regular rhythm GI normal to inspection, nondistended, normoactive bowel sounds, soft to palpation, non-tender and non-distended GI Narrative: Obese. Extremity Extremity Narrative: 3-4+ bilateral lower extremity edema with chronic venous stasis changes and severe right lower extremity cellulitis with skin denudation and serous exudate. Neuro oriented x3, CN's II-XII intact bilaterally, moves all extremities and no focal motor deficits Sensorium / Orientation: awake, alert, oriented to person, oriented to place and oriented to time Speech: speech normal Motor Exam: strength 5/5 throughout Psych Mood & Affect: depressed Results Medical Records Data Attestation: I reviewed the patient's medical records Lab / Micro Data Attestation: I reviewed the patient's lab results. 07/23/23 04:03 07/22/23 20:59 Labs: Laboratory Results - last 24 hr 07/22/23 20:59: WBC 7.8, RBC 4.89, Hgb 12.9 L, Hct 40.3, MCV 82.4, MCH 26.4 L, MCHC 32.0, RDW Std Deviation 45.1 H, RDW Coeff of Jeanette 14.8 H, Plt Count 292, MPV 9.2, Immature Gran % (Auto) 0.300, Neut % (Auto) 64.1, Lymph % (Auto) 18.4 L, [place] % (Auto) 14.2 H, Eos % (Auto) 2.6, Baso % (Auto) 0.4, Absolute Neuts (auto) 5.0, Absolute Lymphs (auto) 1.44, Nucleated RBC % 0, Sodium 123 L, Potassium 3.9, Chloride 88 L, Carbon Dioxide 33.0 H, Anion Gap 2 L, BUN 8, Creatinine 0.74, Estim Creat Clear Calc 65.55, Est GFR (MDRD) Af Amer 134, Est GFR (MDRD) Non-Af 110, BUN/Creatinine Ratio 10.8, Glucose 111 H, Lactic Acid 0.9, Calcium 8.6 Assessment & Plan Assessment/Plan (1) Cellulitis of leg, right: (2) Acute hyponatremia: (3) Diabetes mellitus, type 2: QUALIFIERS: Diabetes mellitus complication status: with unspecified complications Diabetes mellitus microphone operator insulin use: with microphone operator use Qualified Code(s): E11.8 - Type 2 diabetes mellitus with unspecified complications; Z79.4 - animal taxonomist (current) use of insulin; Z79.4 - [facility]FP (current) use of insulin; Z79.4 - animal taxonomist (current) use of insulin; Z79.4 - animal taxonomist (current) use of insulin PLAN: Plan 1. Lower extremity cellulitis with multidrug-resistant organisms refractory to treatment in the setting of chronic venous stasis and numerous antibiotic allergies - Admit to PCU. Give IV vancomycin and IV aztreonam given patient's multiple antibiotic allergies and failure of his outpatient clindamycin. We w ill consult the wound nurse to see this patient on rounds in the a.m. with help appreciated in advance. Finally, we will consult Dr. Jade of infectious diseases to see this patient on rounds in the a.m. for further recommendations with help appreciated in advance. 2. Acute hypervolemic hyponatremia of 123 mmol/L present on admission complicating #1 - Continue Lasix and recheck CBC in the a.m. to ensure improvement. We will also check urine osmolality and blood osmolality to help clarify the reason behind his acute hyponatremia. 3. Diabetes mellitus type 2 uncontrolled with hyperglycemia compounding #1 and #2 - ADA diet. Fingerstick blood sugars before every meal and at bedtime plus sliding scale insulin. Check hemoglobin A1c. 4. Obesity with BMI of 38.8 on admission with obstructive sleep apnea adding to the pathology of #1 - #3 - Weight loss will be recommended. Check TSH. 5. Essential hypertension - Continue home medications as previous. Plus give as needed IV hydralazine for systolic blood pressure greater than 160 mmHg. 6. Hyperlipidemia - Resume simvastatin. 7. History of coronary artery disease with STEMI in 2017 requiring stent placement with subsequent chronic diastolic CHF - Noted. Continue home regimen. 8. Restless leg syndrome - Continue home regimen as previous. 9. DVT prophylaxis - Lovenox 40 mg subcu daily. Total time: Approximately 75 minutes. Charges/Coding Visit Charges Inpatient E&M: 83424 Init Hosp L3
[2023-07-22 22:27] VITALS: BP 129/66; PULSE 76; RESP 18; TEMP 36.8; O2SAT 94
[2023-07-22] MEDS: 0.9% Normal Saline (250mL Bag) 250 ML 15 ML IV (22:36)
[2023-07-22] MEDS: Ondansetron 4 MG/2 ML Vial IV (22:36)
[2023-07-22] MEDS: Furosemide 100 MG/10 ML Vial 80 MG IV (22:37)
[2023-07-22] MEDS: Vancomycin HCl 1,750 MG in 0.9% Normal Saline (500mL Bag) 500 ML 250 MG IV (22:39)
[2023-07-22 22:42] LABS: Bedside Glucose 108 mg/dL (74-106)
[2023-07-22 22:44] VITALS: BP 129/66; PULSE 76; RESP 18; TEMP 36.8; O2SAT 94
[2023-07-22 23:41] VITALS: RESP 20
[2023-07-23] VITALS (9 sets, daily range): BP systolic 108–154; BP diastolic 55–89; PULSE 92–112; RESP 16–20; TEMP 36.6–38; O2SAT 92–99; BMI 36.9
[2023-07-23 02:35] LABS: Bedside Glucose 129 mg/dL (74-106)
[2023-07-23] MEDS: Aztreonam 2 GM in 0.9% Normal Saline (100mL MB+) 100 ML IV (02:47)
[2023-07-23] MEDS: ALPRAZolam 0.25 MG Tablet PO (03:24)
--- NOTE | 2023-07-23 03:30 | PCM.RX.CS ---
Consult Antibiotic Management Pharmacy has been consulted to manage selected antiobiotic: Vancomycin Type of Intervention Type of Consult: New start Suspected Infection Suspected Infection: Skin/Soft tissue Labs Labs: Sodium 123 mmol/L (136-145) L 07/22/23 20:59 Potassium 3.9 mmol/L (3.5-5.1) 07/22/23 20:59 Chloride 88 mmol/L (98-107) L 07/22/23 20:59 Carbon Dioxide 33.0 mmol/L (21.0-32.0) H 07/22/23 20:59 Anion Gap 2 (5-15) L 07/22/23 20:59 BUN 8 mg/dL (7-18) 07/22/23 20:59 Creatinine 0.74 mg/dL (0.70-1.30) 07/22/23 20:59 Est GFR (MDRD) Af Amer 134 mL/min (>60) 07/22/23 20:59 Est GFR (MDRD) Non-Af 110 mL/min (>60) 07/22/23 20:59 BUN/Creatinine Ratio 10.8 RATIO (10-20) 07/22/23 20:59 Glucose 111 mg/dL (74-106) H 07/22/23 20:59 Dosing Weight Weight used for dosin.2 kg Estimated Creatinine Clearance Estimated Creatinine Clearance: 110 Goal Trough Goal Trough: 15-20 mcg/mL Pharmacy Plan for Drug Dosing Pharmacy Plan for Drug Dosing: Pharmacy Service will continue to monitor and adjust dosing as required. Follow-Up Labs Follow-Up Labs: Trough: Vancomycin Date/Time Labs Ordered Labs to be done on [date and time ordered]: 07/23/23 @2206
[2023-07-23 05:11] LABS: Absolute Lymphocyte Count 1.13 X10^3/uL (0.83-4.51); Absolute Neutrophil Count 5.8 X10^3/uL (2.0-7.7); Basophil# 0.04 X10^3/uL; Basophil% 0.5 % (0-1); Eosinophil# 0.12 X10^3/uL; Eosinophils% 1.4 % (0-5); Hematocrit 44.4 % (40-54); Hemoglobin 13.5 g/dL (13.0-16.5); Lymphocyte # 1.13 X10^3/ul (0.83-4.51); Lymphocyte % 13.4 % (19-41); Mean Corp Hgb Conc 30.4 g/dL (32-36); Mean Corpuscular Hgb 25.7 pg (27.0-32.0); Mean Corpuscular Volume 84.6 fL (80-94); Mean Platelet Vol. 9.8 fl (6.2-12.0); Monocyte# 1.34 X10^3/uL; Monocyte% 15.9 % (0-10); NRBC Flagged by Analyzer 0 % (0-5); Neutrophil % 68.6 % (47-70); Platelet Count 314 K/mm3 (150-450); RBC Distribution Width CV 14.8 % (11.6-14.6); RBC Distribution Width SD 45.1 fl (35.1-43.9); Red Blood Count 5.25 M/mm3 (4.6-6.2); White Blood Count 8.5 K/mm3 (4.4-11.0)
[2023-07-23] MEDS: 0.9% Saline Lock 10 ML Syringe IV (06:00)
[2023-07-23] MEDS: Vancomycin HCl 1,500 MG in 0.9% Normal Saline (500mL Bag) 500 ML 250 MG IV ×2 (06:00→14:18)
[2023-07-23 06:41] LABS: Bedside Glucose 138 mg/dL (74-106)
--- NOTE | 2023-07-23 06:45 | CT_ITS ---
HISTORY: neurological changes. TECHNIQUE: Multiple axial images were obtained of the head without intravenous contrast. A radiation dose optimization technique was used for this scan. 264 images. COMPARISON: None. 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 Multiple foci and zones of low attenuation in the bilateral cerebral white matter compatible with chronic small vessel ischemic gliosis. No acute intra-axial hemorrhage identified. CSF SPACES: Generalized volume loss. No midline shift or other significant mass effect. No acute extra-axial hemorrhage seen. OTHER: Intact calvarium. No significant air fluid levels in the paranasal sinuses or mastoid air cells. Bilateral lens resections. 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 No acute intracranial hemorrhage identified. Mild chronic involutional and white matter changes. Electronically Signed: Magy Cardona MD at 8:17 EST ,
[2023-07-23 06:50] LABS: ALB/GLOB Ratio 0.7 RATIO (0.9-2.4); AST(SGOT) 18 U/L (15-37); Alanine Aminotransfer ALT/SGPT 31 U/L (16-61); Alkaline Phosphatase 62 U/L (45-117); Anion Gap 8 (5-15); BUN 8 mg/dL (7-18); BUN/Creat Ratio 9.9 RATIO (10-20); Calcium,Total 8.4 mg/dL (8.5-10.1); Chloride 85 mmol/L (98-107); Creatinine, Serum 0.81 mg/dL (0.70-1.30); EST Glomerular Filtration Rate 99 mL/min (>60); Est Glom Filt Rate - Afr Amer 120 mL/min (>60); Estimated Creatinine Clearance 80.93 ml/min; Globulin 4.1 g/dL (2.2-4.2); Glucose 126 mg/dL (74-106); Protein, Total 7.1 g/dL (6.4-8.2); Sodium Level 128 mmol/L (136-145)
[2023-07-23 08:15] LABS: Hemoglobin A1c 9.4 % (3.8-5.6)
--- NOTE | 2023-07-23 09:06 | PN.HOSP_ITS ---
Reason for Visit Reason for Visit: Diagnoses Type 2 diabetes mellitus with unspecified complications (07/22/23) Hypo-osmolality and hyponatremia (07/22/23) Cellulitis of right lower limb (07/22/23) jail (current) use of insulin (07/22/23) Objective Data Objective Data Vital Signs: Vital Signs Temp Pulse Resp BP Pulse Ox O2 Del Method O2 Flow Rate 99.3 F H 112 H 18 154/83 H 93 Nasal Cannula 4 07/23/23 06:15 07/23/23 06:15 07/23/23 06:15 07/23/23 06:15 07/23/23 08:52 07/23/23 08:52 07/23/23 08:52 Oxygen Flow Rate (L/min) 4 Oxygen Delivery Method Nasal Cannula Weight: 242 lb 15.19 oz Body Mass Index (BMI) 36.9 Intake & Output: Intake and Output for Last 24 Hours 07/21/23 07/22/23 07/23/23 23:59 23:59 23:59 Intake Total 0.75 / 0.75 635 / 635 Output Total 875 / 875 400 / 400 Balance -874.25 / -874.25 235 / 235 Lab / Micro Data 07/23/23 04:03 07/23/23 04:03 Labs: Laboratory Results - last 24 hr 07/22/23 20:59: WBC 7.8, RBC 4.89, Hgb 12.9 L, Hct 40.3, MCV 82.4, MCH 26.4 L, MCHC 32.0, RDW Std Deviation 45.1 H, RDW Coeff of Jeanette 14.8 H, Plt Count 292, MPV 9.2, Immature Gran % (Auto) 0.300, Neut % (Auto) 64.1, Lymph % (Auto) 18.4 L, [place] % (Auto) 14.2 H, Eos % (Auto) 2.6, Baso % (Auto) 0.4, Absolute Neuts (auto) 5.0, Absolute Lymphs (auto) 1.44, Nucleated RBC % 0, Sodium 123 L, Potassium 3.9, Chloride 88 L, Carbon Dioxide 33.0 H, Anion Gap 2 L, BUN 8, Creatinine 0.74, Estim Creat Clear Calc 65.55, Est GFR (MDRD) Af Amer 134, Est GFR (MDRD) Non-Af 110, BUN/Creatinine Ratio 10.8, Glucose 111 H, Hemoglobin A1c 9.4 H, Lactic Acid 0.9, Calcium 8.6 07/22/23 22:23: POC Glucose 108 H 07/23/23 02:15: POC Glucose 129 H 07/23/23 04:03: WBC 8.5, RBC 5.25, Hgb 13.5, Hct 44.4, MCV 84.6, MCH 25.7 L, MCHC 30.4 L, RDW Std Deviation 45.1 H, RDW Coeff of Jeanette 14.8 H, Plt Count 314, MPV 9.8, Immature Gran % (Auto) 0.200, Neut % (Auto) 68.6, Lymph % (Auto) 13.4 L , [place] % (Auto) 15.9 H, Eos % (Auto) 1.4, Baso % (Auto) 0.5, Absolute Neuts (auto) 5.8, Absolute Lymphs (auto) 1.13, Nucleated RBC % 0, Sodium 128 L, Potassium 4.0, Chloride 85 L, Carbon Dioxide 35.0 H, Anion Gap 8, BUN 8, Creatinine 0.81, Estim Creat Clear Calc 80.93, Est GFR (MDRD) Af Amer 120, Est GFR (MDRD) Non-Af 99, BUN/Creatinine Ratio 9.9 L, Glucose 126 H, Calcium 8.4 L, Total Bilirubin 1.00, AST 18, ALT 31, Alkaline Phosphatase 62, Total Protein 7.1, Albumin 3.0 L, Globulin 4.1, Albumin/Globulin Ratio 0.7 L 07/23/23 06:22: POC Glucose 138 H Radiography Diagnostic Testing: Radiology Impression Brain CT 07/23/23 06:45 IMPRESSION: 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 No acute intracranial hemorrhage identified. Mild chronic involutional and white matter changes. Electronically Signed: Magy Cardona MD at 8:17 EST , Physical Exam Narrative Patient was started on antibiotic, clindamycin with PCP on 13 July. He is on vancomycin. Previous culture positive of MRSA. Uses oxygen during the night and on exertion. Physical exam General: Alert, Oriented x3, Cooperative, BMI 36.9 KG for his questions which HEENT: Atraumatic, PERRLA, EOMI, Normocephalic Oral: Oral mucosa dry. No Gingival or Mucosal Lesions/ Ulcerations Neck: Supple, No JVD, Negative Carotid Bruits Lungs: Air entry diminished in bilateral lung bases. No crepitation/rhonchi Cardiovascular: Regular rate, Regular Rhythm, Normal S1, Normal S2, soft systolic murmur right second ICS Abdomen: Bowel Sounds Present, Soft, Non Tender, mild distention. : No renal angle tenderness. No suprapubic tenderness. Extremities: No edema, Capillary Refill Less than 3 Seconds Skin: Multiple superficial ulcer over legs, mainly over the right leg. It seems to be healing. Musculoskeletal: No Tenderness to Palpation of Joints or Extremities Neurological: Cranial nerves II-XII grossly intact, DTR 2+/4. No acute focal neurological deficit. Psych/Mental Status: Normal Affect, Appropriate. Assessment & Plan Assessment/Plan (1) Cellulitis of leg, right: (2) Acute hyponatremia: (3) Diabetes mellitus, type 2: QUALIFIERS: Diabetes mellitus complication status: with unspecified complications Diabetes mellitus care home insulin use: with long term care social worker use Qualified Code(s): E11.8 - Type 2 diabetes mellitus with unspecified complications; Z79.4 - termite control servicer (current) use of insulin; Z79.4 - termite control servicer (current) use of insulin; Z79.4 - jail (current) use of insulin; Z79.4 - termite control servicer (current) use of insulin PLAN: Plan Patient was admitted with 2 weeks history of progressive right lower extremity swelling pain redness and drainage. Patient stated he was not taking care of himself with recent loss of his . 1. Lower extremity cellulitis with multidrug-resistant organisms refractory to treatment in the setting of chronic venous stasis and numerous antibiotic allergies - Admit to PCU. Initially, the patient was started on give IV vancomycin and IV aztreonam given patient's multiple antibiotic allergies and failure of his outpatient clindamycin. ID consulted. Wound culture from 07/09 shows Enterococcus MSSA and Luvira. Antibiotic changed to vancomycin and cefazolin. Patient has history of dyspnea with penicillin but tolerated ceftriaxone in 2019. Discussed with the wound nurse. 2. Acute hypervolemic hyponatremia of 123 mmol/L present on admission with lymphedema and varicose vein: Patient on Lasix and continued. Bilateral Satish wrap bandage. Patient had echo in March 2023 which was technically difficult reported EF 55%. Calcified aortic root. LA mildly enlarged. Normal valves. Urine osmolality 217. 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 Patient and her daughter decided he does not have peripheral arterial disease. 3. Diabetes mellitus type 2 uncontrolled with hyperglycemia compounding #1 and #2 - ADA diet. Fingerstick blood sugars before every meal and at bedtime plus sliding scale insulin. hemoglobin A1c 9.4 4. Obesity with BMI of 38.8 on admission with obstructive sleep apnea Weight loss will be recommended. Check TSH. 5. Essential hypertension - Continue home medications as previous. Plus give as needed IV hydralazine for systolic blood pressure greater than 160 mmHg. 6. Hyperlipidemia - Resume simvastatin. 7. History of coronary artery disease with STEMI in 2017 requiring stent placement with subsequent chronic diastolic CHF - Noted. Continue home regimen. 8. Restless leg syndrome - Continue home regimen as previous. 9. DVT prophylaxis - Lovenox 40 mg subcu daily. Charges/Coding Visit Charges Inpatient E&M: 74087 Subs Hosp L2
[2023-07-23 09:25] LABS: Osmolality, Urine 217 mOsm/KG
[2023-07-23 09:25] LABS: Osmolality, Serum 273 mOsm/KG (280-301)
--- NOTE | 2023-07-23 10:22 | PCM.CONS.GEN ---
Assessment & Plan Assessment/Plan (1) Cellulitis of leg, right: PLAN: Wound cx 07/09 with enterococcus, mssa, and kluyvera. Had been on clinda without improvement; enterococcus and kluyvera were not being coverage. H/o dyspnea with PCN; tolerated ceftriaxone here in 2019. Will change to vanc/cefazolin and monitor for any issues. 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: with intermediate use Qualified Code(s): E11.8 - Type 2 diabetes mellitus with unspecified complications; Z79.4 - long term acute care registered nurse (current) use of insulin; Z79.4 - long term acute care registered nurse (current) use of insulin; Z79.4 - long term acute care registered nurse (current) use of insulin; Z79.4 - long term acute care registered nurse (current) use of insulin (3) Chronic diastolic (congestive) heart failure: HPI Consult Data Date of Consult: 07/23/23 HPI Narrative Reason for Consultation: cellulitis HPI Narrative: BLANCA GILL, is a 72 M with chronic edema, DM, obesity, CAD, CHF, presented with 2 weeks progressive RLE pain, redness, swelling, drainage. Drainage was serous. No fever or chills. Saw PCP, wound cx done, given one week po clinda bid dosing without much improvement. Sx slowly worsened. Came to ED, admitted on vanc/aztreonam. Full ROS Performed and neg except as noted above. [facility] Medical History Abnormal nuclear stress test Anxiety Asthma Atherosclerotic heart disease of [place] coronary artery without angina pectoris Carotid bruit Chronic diastolic (congestive) heart failure 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 disease Diabetes mellitus, type 2 Edema Essential hypertension History of ST elevation myocardial infarction (STEMI) (07/11/17) Hyperlipidemia Hypomagnesemia IBS (irritable bowel syndrome) Inappropriate sexual behavior Lower extremity edema Muscle cramps Neck pain 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.9) KRISTI (obstructive sleep apnea) Restless legs Shortness of breath Home Medications metformin 1,000 mg tablet 1,000 mg PO BIDCM diabetes 01/17/16 [History Last Taken 04/12/19] montelukast 10 mg tablet 10 mg PO QHS allergies 01/17/16 [History Last Taken 12/07/18] acetaminophen 325 mg tablet 325 - 650 mg (1 - 2 x 325 mg) PO Q6H PRN PRN Pain 07/14/17 [Rx Last Taken Unknown] aspirin 81 mg tablet,delayed release 81 mg PO DAILY@0800 #30 tabs 07/14/17 [Rx Last Taken 12/06/21] buspirone 10 mg tablet 10 mg PO TID Anxiety 05/07/18 [History Last Taken 04/13/19] pramipexole 1 mg tablet 2 mg PO QHS headache 05/07/18 [History Last Taken 12/08/18 21:00] cholecalciferol (vitamin D3) 50 mcg (2,000 unit) capsule 2,000 unit PO BID supplement 12/08/18 [History Last Taken 12/08/18 08:00] coenzyme Q10 100 mg capsule 100 mg PO DAILY supplement 12/08/18 [History Last Taken 12/04/18] magnesium oxide 400 mg PO DAILY supplement 12/08/18 [History Last Taken 12/08/18 08:00] fluticasone propionate 50 mcg/actuation nasal spray,suspension 1 spray intranasal DAILY PRN nasal spray 04/05/20 [History Last Taken Unknown] alprazolam 0.25 mg tablet 0.25 mg PO DAILY PRN anxiety 10/12/20 [History Last Taken Unknown] glyburide 2.5 mg tablet 5 mg PO BID diabetes 10/12/20 [History Last Taken Unknown] tizanidine 2 mg capsule 2 mg PO Q8H PRN Spasms 03/27/21 [History Last Taken Unknown] nitroglycerin 0.4 mg sublingual tablet 0.4 mg sublingual Q5M PRN Angina pain #25 tabs 11/29/21 [Rx Last Taken Unknown] insulin NPH isoph U-100 human 100 unit/mL subcutaneous suspension See Rx Instructions subcut BID diabetes 03/14/22 [History Last Taken Unknown] vitamin B complex 1 tab PO DAILY 03/14/22 [History Last Taken Unknown] albuterol sulfate 90 mcg/actuation aerosol inhaler (Ventolin HFA) 2 puff inhalation Q4H PRN shortness of breath or wheezing #18 grams 09/16/22 [Rx Last Taken Unknown] clopidogrel 75 mg tablet 75 mg PO DAILY 04/28/23 [History Last Taken Unknown] pravastatin 40 mg tablet 40 mg PO DAILY 04/28/23 [History Last Taken Unknown] isosorbide mononitrate 30 mg tablet,extended release 24 hr 30 mg PO DAILY #90 tabs 07/05/23 [Rx Last Taken Unknown] furosemide 40 mg tablet See Rx Instructions PO .COMPLEX #270 tabs 07/13/23 [Rx Last Taken Unknown] carvedilol 12.5 mg tablet 6.25 mg PO BID This is a dose increase 07/22/23 [History Last Taken Unknown] clindamycin HCl 300 mg capsule 300 mg PO Q12H 07/22/23 [History Last Taken Unknown] Allergy/AdvReac Type Severity Reaction Status Date / Time Penicillins Allergy Severe Shortness Verified 07/22/23 19:00 of breath quinine sulfate [From Quine] Allergy Severe passed out Verified 07/22/23 19:00 benzocaine [From Cetacaine] Allergy Swelling Verified 07/22/23 19:00 butamben [From Cetacaine] Allergy Swelling Verified 07/22/23 19:00 ciprofloxacin HCl Allergy Hives Verified 07/22/23 19:00 [From Cipro] clarithromycin [From Biaxin] Allergy Swelling Verified 07/22/23 19:00 exenatide [From Byetta] Allergy Rash Verified 07/22/23 19:00 folic acid Allergy Rash Verified 07/22/23 19:00 [From Proferrin-Forte] hyoscyamine sulfate Allergy Rash Verified 07/22/23 19:00 [From Levsin] iron heme polypeptide Allergy tongue Verified 07/22/23 19:00 [From Proferrin-Forte] swelling naproxen [From Naprosyn] Allergy Rash Verified 07/22/23 19:00 tetracaine [From Cetacaine] Allergy throat Verified 07/22/23 19:00 swelled shut venlafaxine HCl Allergy tongue Verified 07/22/23 19:00 [From Effexor] swelling ezetimibe [From Zetia] AdvReac Severe Myalgias, Verified 07/22/23 19:00 diarrhea mold AdvReac Severe PT UNSURE Verified 07/22/23 19:00 OF REACTION niacin AdvReac Severe PT UNSURE Verified 07/22/23 19:00 [From Niaspan OF REACTION Extended-Release] procainamide AdvReac Severe Anaphylactic/Resp. Verified 07/22/23 19:00 Distress atorvastatin calcium AdvReac Intermediate Mylagias Verified 07/22/23 19:00 [From Lipitor] rosuvastatin calcium AdvReac Intermediate Myalgias Verified 07/22/23 19:00 [From Crestor] diphenhydramine HCl AdvReac Restlessnes Verified 07/22/23 19:00 [From Benadryl] s Family History Mother Diabetes Hypertension Father Hypotension Brother Hypertension HLD (hyperlipidemia) Grandmother Diabetes Grandfather CVA (cerebral vascular accident) Diabetes Brother Cancer lung Surgical History History of appendectomy History of cholecystectomy History of coronary artery stent placement (04/13/19) History of dental surgery History of exploratory laparotomy History of left heart catheterization (12/06/21) History of left knee surgery History of vasectomy Status post excision of lipoma Social History Smoking Status: Never smoker second hand exposure: No alcohol intake: never substance use type: does not use caffeine: No seatbelt use: always do you feel safe at home: Yes Physical Exam Const alert, oriented x3 and no apparent distress General Appearance: cooperative HEENT normocephalic and head/scalp atraumatic Eyes PERRL and EOMs intact bilaterally Neck supple and No nodes Resp normal air movement and clear to auscultation bilaterally Cardio regular rate and regular rhythm GI soft to palpation, non-tender and non-distended Extremity General Extremity: edema Skin Skin Narrative: reviewed photos, RLE wrapped Neuro CN's II-XII intact bilaterally Lab / Micro Data Attestation: I reviewed the patient's lab results. 07/23/23 04:03 07/23/23 04:03 Labs: Laboratory Results - last 24 hr 07/22/23 20:59: WBC 7.8, RBC 4.89, Hgb 12.9 L, Hct 40.3, MCV 82.4, MCH 26.4 L, MCHC 32.0, RDW Std Deviation 45.1 H, RDW Coeff of Jeanette 14.8 H, Plt Count 292, MPV 9.2, Immature Gran % (Auto) 0.300, Neut % (Auto) 64.1, Lymph % (Auto) 18.4 L, [place] % (Auto) 14.2 H, Eos % (Auto) 2.6, Baso % (Auto) 0.4, Absolute Neuts (auto) 5.0, Absolute Lymphs (auto) 1.44, Nucleated RBC % 0, Sodium 123 L, Potassium 3.9, Chloride 88 L, Carbon Dioxide 33.0 H, Anion Gap 2 L, BUN 8, Creatinine 0.74, Estim Creat Clear Calc 65.55, Est GFR (MDRD) Af Amer 134, Est GFR (MDRD) Non-Af 110, BUN/Creatinine Ratio 10.8, Glucose 111 H, Hemoglobin A1c 9.4 H, Lactic Acid 0.9, Calcium 8.6 07/22/23 22:23: POC Glucose 108 H 07/23/23 02:15: POC Glucose 129 H 07/23/23 04:00: Urine Osmolality 217 07/23/23 04:03: WBC 8.5, RBC 5.25, Hgb 13.5, Hct 44.4, MCV 84.6, MCH 25.7 L, MCHC 30.4 L, RDW Std Deviation 45.1 H, RDW Coeff of Jeanette 14.8 H, Plt Count 314, MPV 9.8, Immature Gran % (Auto) 0.200, Neut % (Auto) 68.6, Lymph % (Auto) 13.4 L, [place] % (Auto) 15.9 H, Eos % (Auto) 1.4, Baso % (Auto) 0.5, Absolute Neuts (auto) 5.8, Absolute Lymphs (auto) 1.13, Nucleated RBC % 0, Sodium 128 L, Potassium 4.0, Chloride 85 L, Carbon Dioxide 35.0 H, Anion Gap 8, BUN 8, Creatinine 0.81, Estim Creat Clear Calc 80.93, Est GFR (MDRD) Af Amer 120, Est GFR (MDRD) Non-Af 99, BUN/Creatinine Ratio 9.9 L, Glucose 126 H, Serum Osmolality 273 L, Calcium 8.4 L, Total Bilirubin 1.00, AST 18, ALT 31, Alkaline Phosphatase 62, Total Protein 7.1, Albumin 3.0 L, Globulin 4.1, Albumin/Globulin Ratio 0.7 L 07/23/23 06:22: POC Glucose 138 H Radiology Impression Brain CT 07/23/23 06:45 IMPRESSION: 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 No acute intracranial hemorrhage identified. Mild chronic involutional and white matter changes. Electronically Signed: Magy Cardona MD at 8:17 EST ,
--- NOTE | 2023-07-23 10:33 | WOUNDNOTE ---
wound photo: right lower leg
--- NOTE | 2023-07-23 10:35 | CASEMGMT ---
MYRA MENDOZA Face to Face with patient for initial transition planning/care coordination assessment. RN CM introduced self and role at [facility]. Patient lying in bed, alert and oriented. Patient willing to participate in assessment and is able to answer all questions appropriately. Care providers, pharmacy, and demographics verified. Patient wishes to discharge home, will monitor for HHC. Patient states he has no further needs or concerns at this time. CM to follow for discharge planning needs that may arise. PCP: Carolynn Specialists: Schuyler, vascular; DMITRI, elastic assembler; [facility] Preferred Pharmacy: [facility] Insurance: [employer] Prescription Benefit: yes Living Will/HPOA: patient is not sure LNOK: daughter Living Arrangements: Patient lives alone in a split level home with 6 steps and railing to enter the home. Patient states he is independent and able to ambulate stairs. Patient states just a week ago, SW notified. Transportation: self, daughter DME/HHC: Patient has shower chair, cane, walker, grab bars, wheelchair, cpap, nebuilzer, pulse ox, glucometer, and home oxygen through [employer] at 3lpm at . No previous HHC or SNF. Will monitor for HHC Disposition Plan: Patient to discharge home with family support and follow-up plans in place. Will monitor for HHC. Zulma MOYA, RN, CM
[2023-07-23] MEDS: Vitamin B Comp W-C Capsule 1 CAP PO (10:40)
[2023-07-23] MEDS: Magnesium Chloride 64 MG Delay Rel.Tablet 128 MG PO (10:40)
[2023-07-23] MEDS: Cholecalciferol (VIT D3) 25 MCG TABLET (1,000 UNITS) 50 MCG PO ×2 (10:40→21:41)
[2023-07-23] MEDS: Furosemide 80 MG Tablet PO (10:40)
[2023-07-23] MEDS: Clopidogrel Bisulfate 75 MG Tablet PO (10:40)
[2023-07-23] MEDS: metFORMIN HCl 1,000 MG Tablet 1000 MG PO ×2 (10:40→16:36)
[2023-07-23] MEDS: Aspirin E.C. 81 MG Tablet PO (10:40)
[2023-07-23] MEDS: Carvedilol 6.25 MG Tablet PO ×2 (10:40→16:36)
[2023-07-23] MEDS: Isosorbide Mononitrate 30 MG Tablet PO (10:41)
[2023-07-23] MEDS: Insulin Lispro 100 UNIT/ML INSULN.PEN SC ×3 (10:53→21:46)
[2023-07-23] MEDS: Oxycodone/Apap 5/325 Tablet PO (10:56)
[2023-07-23 11:18] LABS: Bedside Glucose 218 mg/dL (74-106)
[2023-07-23 11:19] LABS: M R Staph aureus DNA By PCR Negative (Negative); Probe Check PASS; Specimen Processing Control PASS; Staph aureus DNA By PCR POSITIVE (Negative)
[2023-07-23] MEDS: Cefazolin 2 GM in 0.9% Normal Saline (100mL Bag) 100 ML IV ×2 (13:05→21:31)
--- NOTE | 2023-07-23 13:07 | NURSING ---
Pt frequently sighing/singing/squealing out loud. Denies pain. Found to be resting without oxygen on after morphine to which he had an SPO2 of 49%. Reapplied oxygen at 6L and stayed with pt while numbers recovered. Pt still drowsy but weaned to 4L prior to leaving pt. SPO2 is 92-95%.
[2023-07-23] MEDS: Enoxaparin 40 MG/0.4 ML Syringe SC (14:13)
[2023-07-23] MEDS: busPIRone 5 MG Tablet 10 MG PO ×2 (14:13→21:38)
--- NOTE | 2023-07-23 14:57 | CHAPLAIN ---
Type of Pastoral Visit ___ Initial Visit ___ Follow-up Visit ___ On-call Visit ___ General Patient Visit ___ Spiritual Assessment ___ Family Conference ___ Bereavement ___ Rapid Response ___ Code Blue ___ Other (describe below) Pastoral Care Referral From ___ Patient ___ Family ___ Nurse ___ Physician ___ Care Director Rn ___ Electromechanical Engineer ___ Other (describe below) Sacrament/Intervention ___ Active listening ___ Anointing ___ Zoroastrianism ___ Bereavement ___ Communion ___ Aria exploration ___ ___ Life review ___ Prayer ___ Reconciliation ___ Sacrament of Sick ___ Supportive presence ___ Wedding ___ Other (describe below) Pastoral Comments several attempts made to visit this patient but he is sound asleep
[2023-07-23] MEDS: Insulin NPH Human 100 UNITS/ML PEN 42 UNITS SC (16:36)
[2023-07-23] MEDS: Furosemide 40 MG Tablet PO (16:38)
[2023-07-23 17:00] LABS: Bedside Glucose 155 mg/dL (74-106)
[2023-07-23] MEDS: Montelukast 10 MG Tablet PO (21:38)
[2023-07-23] MEDS: Pravastatin 40 MG Tablet PO (21:38)
[2023-07-23] MEDS: Pramipexole Di-HCl 1 MG Tablet 2 MG PO (21:40)
[2023-07-23 22:15] LABS: Bedside Glucose 203 mg/dL (74-106)
[2023-07-23 22:57] LABS: Vancomycin, Trough Level 22.2 ug/mL (5.0-15.0)
--- NOTE | 2023-07-23 23:17 | PCM.RX.CS ---
Consult Antibiotic Management Pharmacy has been consulted to manage selected antiobiotic: Vancomycin Type of Intervention Type of Consult: Follow-up Suspected Infection Suspected Infection: Skin/Soft tissue Labs Labs: Sodium 128 mmol/L (136-145) L 07/23/23 04:03 Potassium 4.0 mmol/L (3.5-5.1) 07/23/23 04:03 Chloride 85 mmol/L (98-107) L 07/23/23 04:03 Carbon Dioxide 35.0 mmol/L (21.0-32.0) H 07/23/23 04:03 Anion Gap 8 (5-15) 07/23/23 04:03 BUN 8 mg/dL (7-18) 07/23/23 04:03 Creatinine 0.81 mg/dL (0.70-1.30) 07/23/23 04:03 Est GFR (MDRD) Af Amer 120 mL/min (>60) 07/23/23 04:03 Est GFR (MDRD) Non-Af 99 mL/min (>60) 07/23/23 04:03 BUN/Creatinine Ratio 9.9 RATIO (10-20) L 07/23/23 04:03 Glucose 126 mg/dL (74-106) H 07/23/23 04:03 Vancomycin Trough 22.2 ug/mL (5.0-15.0) H 07/23/23 22:05 Microbiology Microbiology: Microbiology 07/23/23 09:00 Wound - Leg, Right Gram Stain - Final Dosing Weight Weight used for dosin kg Estimated Creatinine Clearance Estimated Creatinine Clearance: 101 Goal Trough Goal Trough: 15-20 mcg/mL Pharmacy Plan for Drug Dosing Pharmacy Plan for Drug Dosing: Vancomycin trough level of 22.2, drawn 8hrs post-dose, was high. Will suspend current dosing and draw a random level in eight hours to determine further adjustment. Pharmacy Service will continue to monitor and adjust dosing as required. Follow-Up Labs Follow-Up Labs: Trough: Vancomycin (random) Date/Time Labs Ordered Labs to be done on [date and time ordered]: 07/24/23 @0600
[2023-07-24] VITALS (8 sets, daily range): BP systolic 112–131; BP diastolic 61–94; PULSE 77–106; RESP 17–20; TEMP 37.1–37.6; O2SAT 86–97
[2023-07-24] MEDS: Insulin Lispro 100 UNIT/ML INSULN.PEN SC ×4 (02:49→17:02)
[2023-07-24 03:14] LABS: Bedside Glucose 197 mg/dL (74-106)
[2023-07-24] MEDS: 0.9% Saline Lock 10 ML Syringe IV ×2 (05:24→17:24)
[2023-07-24] MEDS: Cefazolin 2 GM in 0.9% Normal Saline (100mL Bag) 100 ML IV ×3 (05:25→23:35)
[2023-07-24] MEDS: busPIRone 5 MG Tablet 10 MG PO ×3 (06:04→21:44)
[2023-07-24 06:36] LABS: Absolute Lymphocyte Count 1.45 X10^3/uL (0.83-4.51); Absolute Neutrophil Count 5.1 X10^3/uL (2.0-7.7); Basophil# 0.04 X10^3/uL; Basophil% 0.5 % (0-1); Eosinophils% 1.2 % (0-5); Hematocrit 44.3 % (40-54); Lymphocyte # 1.45 X10^3/ul (0.83-4.51); Lymphocyte % 17.5 % (19-41); Mean Corp Hgb Conc 29.3 g/dL (32-36); Mean Corpuscular Hgb 25.5 pg (27.0-32.0); Mean Platelet Vol. 9.5 fl (6.2-12.0); Monocyte# 1.55 X10^3/uL; Monocyte% 18.7 % (0-10); NRBC Flagged by Analyzer 0 % (0-5); Neutrophil % 61.4 % (47-70); POSITIVE DIFFERENTIAL YES; Platelet Count 262 K/mm3 (150-450); RBC Distribution Width CV 15.1 % (11.6-14.6); RBC Distribution Width SD 48.3 fl (35.1-43.9); Red Blood Count 5.09 M/mm3 (4.6-6.2); White Blood Count 8.3 K/mm3 (4.4-11.0)
[2023-07-24 06:44] LABS: Differential Indicated SCAN CRITERIA MET
[2023-07-24 06:53] LABS: Anion Gap 6 (5-15); BUN 12 mg/dL (7-18); BUN/Creat Ratio 11.4 RATIO (10-20); Calcium,Total 8.4 mg/dL (8.5-10.1); Chloride 91 mmol/L (98-107); Creatinine, Serum 1.05 mg/dL (0.70-1.30); EST Glomerular Filtration Rate 74 mL/min (>60); Est Glom Filt Rate - Afr Amer 89 mL/min (>60); Estimated Creatinine Clearance 62.43 ml/min; Glucose 175 mg/dL (74-106); Sodium Level 128 mmol/L (136-145)
[2023-07-24 07:02] LABS: Vancomycin, Random Level 15.1 ug/mL (0.0-15.0)
[2023-07-24 07:13] LABS: Differential Comment SCANNED
--- NOTE | 2023-07-24 07:28 | PHA.PHARE_ITS ---
Consult Antibiotic Management Pharmacy has been consulted to manage selected antiobiotic: Vancomycin Type of Intervention Type of Consult: Follow-up Suspected Infection Suspected Infection: Skin/Soft tissue Labs Labs: Sodium 128 mmol/L (136-145) L 07/24/23 06:00 Potassium 4.0 mmol/L (3.5-5.1) 07/24/23 06:00 Chloride 91 mmol/L (98-107) L 07/24/23 06:00 Carbon Dioxide 31.0 mmol/L (21.0-32.0) 07/24/23 06:00 Anion Gap 6 (5-15) 07/24/23 06:00 BUN 12 mg/dL (7-18) 07/24/23 06:00 Creatinine 1.05 mg/dL (0.70-1.30) 07/24/23 06:00 Est GFR (MDRD) Af Amer 89 mL/min (>60) 07/24/23 06:00 Est GFR (MDRD) Non-Af 74 mL/min (>60) 07/24/23 06:00 BUN/Creatinine Ratio 11.4 RATIO (10-20) 07/24/23 06:00 Glucose 175 mg/dL (74-106) H 07/24/23 06:00 Vancomycin Trough 22.2 ug/mL (5.0-15.0) H 07/23/23 22:05 Random Vancomycin 15.1 ug/mL (0.0-15.0) H 07/24/23 06:00 Microbiology Microbiology: Microbiology 07/23/23 09:00 Wound - Leg, Right Gram Stain - Final Dosing Weight Weight used for dosin.1 kg Estimated Creatinine Clearance Estimated Creatinine Clearance: 77.7 Goal Trough Goal Trough: 15-20 mcg/mL Pharmacy Plan for Drug Dosing Pharmacy Plan for Drug Dosing: VANCOMYCIN LEVEL RECEIVED Current Vancomycin Dose: on HOLD (previous 1500mg Q8H) Number of Doses Received: 1500mg x2, 1750mg x1 Vancomycin Level: 15.1 Hours Since Last Dose: 15.75 Renal Function: sCr 1.05 / CrCl 77.7 ml/min Renal Function Trend: declined Lab/Micro: pending Vancomycin Plan/Comments: (restart) Vancomycin 1250mg Q12H to start @ 08:00 1 09/23/22 Pending Level: Vancomycin trough @ 19:30 07/25/23 Pharmacy Service will continue to monitor and adjust dosing as required. Follow-Up Labs Follow-Up Labs: Trough: Vancomycin (19:30 07/25/23)
[2023-07-24 08:21] LABS: Bedside Glucose 156 mg/dL (74-106)
[2023-07-24] MEDS: Acetaminophen 325 MG Tablet PO ×3 (09:05→21:45)
[2023-07-24] MEDS: Vancomycin HCl 1,250 MG in 0.9% Normal Saline (250mL Bag) 250 ML 167 MG IV ×2 (09:06→21:29)
[2023-07-24] MEDS: Enoxaparin 40 MG/0.4 ML Syringe SC (09:06)
[2023-07-24] MEDS: Insulin NPH Human 100 UNITS/ML PEN 46 UNITS SC (09:06)
[2023-07-24] MEDS: Isosorbide Mononitrate 30 MG Tablet PO (09:07)
[2023-07-24] MEDS: Vitamin B Comp W-C Capsule 1 CAP PO (09:07)
[2023-07-24] MEDS: Magnesium Chloride 64 MG Delay Rel.Tablet 128 MG PO (09:07)
[2023-07-24] MEDS: Cholecalciferol (VIT D3) 25 MCG TABLET (1,000 UNITS) 50 MCG PO ×2 (09:07→21:44)
[2023-07-24] MEDS: Clopidogrel Bisulfate 75 MG Tablet PO (09:07)
[2023-07-24] MEDS: Furosemide 80 MG Tablet PO (09:07)
[2023-07-24] MEDS: metFORMIN HCl 1,000 MG Tablet 1000 MG PO ×2 (09:07→17:03)
[2023-07-24] MEDS: Carvedilol 6.25 MG Tablet PO ×2 (09:07→17:03)
--- NOTE | 2023-07-24 11:15 | WOUNDNOTE ---
wound photo: right lower leg
[2023-07-24 12:34] LABS: Bedside Glucose 162 mg/dL (74-106)
--- NOTE | 2023-07-24 13:38 | CHAPLAIN ---
Type of Pastoral Visit _x__ Initial Visit ___ Follow-up Visit ___ On-call Visit ___ General Patient Visit ___ Spiritual Assessment ___ Family Conference ___ Bereavement ___ Rapid Response ___ Code Blue ___ Other (describe below) Pastoral Care Referral From _x__ Patient ___ Family ___ Nurse ___ Physician ___ Assembler Wet Wash ___ Death Claim Clerk ___ Other (describe below) Sacrament/Intervention _x__ Active listening ___ Anointing ___ Samaritan _x__ Bereavement ___ Communion ___ Aria exploration ___ ___ Life review _x__ Prayer ___ Reconciliation ___ Sacrament of Sick _x__ Supportive presence ___ Wedding ___ Other (describe below) Pastoral Comments this patient reminds this technical lead that pt's was just in hospital and less than two weeks ago; this technical lead had assisted family at that time; exploration of how pt is doing emotionally and physically; offer of presence and support given with prayer
--- NOTE | 2023-07-24 14:09 | PCM.PN.ID ---
Physical Exam Narrative Feeling better, no fever, RLE less sore Const alert and no apparent distress General Appearance: cooperative Resp normal air movement and clear to auscultation bilaterally Cardio regular rate and regular rhythm GI soft to palpation, non-tender and non-distended Skin Skin Narrative: RLE wrapped ID ID: Route of nutrition/ use of supplements: [] Nutritional Intake: [] IV Site: [] Perez Catheter: [] Assessment & Plan Assessment/Plan (1) Cellulitis of leg, right: PLAN: Wound cx 07/09 with enterococcus, mssa, and kluyvera. Had been on clinda without improvement; enterococcus and kluyvera were not being coverage. H/o dyspnea with PCN; tolerated ceftriaxone here in 2019. Improving on vanc/cefazolin. Wound cx here pending. Plan on home with one week po linezolid 600mg bid and keflex 500mg tid (assuming repeat wound cx shows organisms similar to previous). Will follow, d/w Dr. Dukes (2) Diabetes mellitus, type 2: QUALIFIERS: Diabetes mellitus complication status: with unspecified complications Diabetes mellitus senior living insulin use: with senior living use Qualified Code(s): E11.8 - Type 2 diabetes mellitus with unspecified complications; Z79.4 - care home (current) use of insulin; Z79.4 - intermediate manager (current) use of insulin; Z79.4 - care home (current) use of insulin; Z79.4 - intermediate manager (current) use of insulin (3) Chronic diastolic (congestive) heart failure:
--- NOTE | 2023-07-24 16:45 | PCM.PN.HOSP ---
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 of insulin (07/22/23) Objective Data Objective Data Vital Signs: Vital Signs Temp Pulse Resp BP Pulse Ox O2 Del Method O2 Flow Rate 98.8 F 103 H 18 119/64 93 Nasal Cannula 4 07/24/23 15:00 07/24/23 15:00 07/24/23 15:00 07/24/23 15:00 07/24/23 15:00 07/24/23 15:00 07/24/23 15:00 Oxygen Flow Rate (L/min) 4 Oxygen Delivery Method Nasal Cannula Weight: 242 lb 15.19 oz Body Mass Index (BMI) 36.9 Intake & Output: Intake and Output for Last 24 Hours 07/22/23 07/23/23 07/24/23 23:59 23:59 23:59 Intake Total 0.75 / 0.75 1915 / 1915 735 / 735 Output Total 875 / 875 2150 / 2150 200 / 200 Balance -874.25 / -874.25 -235 / -235 535 / 535 Lab / Micro Data 07/24/23 06:00 07/24/23 06:00 Labs: Laboratory Results - last 24 hr 07/23/23 16:35: POC Glucose 155 H 07/23/23 21:45: POC Glucose 203 H 07/23/23 22:05: Vancomycin Trough 22.2 H 07/24/23 02:45: POC Glucose 197 H 07/24/23 06:00: WBC 8.3, RBC 5.09, Hgb 13.0, Hct 44.3, MCV 87.0, MCH 25.5 L, MCHC 29.3 L, RDW Std Deviation 48.3 H, RDW Coeff of Jeanette 15.1 H, Plt Count 262, MPV 9.5, Immature Gran % (Auto) 0.700, Neut % (Auto) 61.4, Lymph % (Auto) 17.5 L, [place] % (Auto) 18.7 H, Eos % (Auto) 1.2, Baso % (Auto) 0.5, Absolute Neuts (auto) 5.1, Absolute Lymphs (auto) 1.45, Nucleated RBC % 0, Differential Comment SCANNED, Sodium 128 L, Potassium 4.0, Chloride 91 L, Carbon Dioxide 31.0, Anion Gap 6, BUN 12, Creatinine 1.05, Estim Creat Clear Calc 62.43, Est GFR (MDRD) Af Amer 89, Est GFR (MDRD) Non-Af 74, BUN/Creatinine Ratio 11.4, Glucose 175 H, Calcium 8.4 L, Random Vancomycin 15.1 H 07/24/23 08:03: POC Glucose 156 H 07/24/23 12:03: POC Glucose 162 H Micro: Microbiology 07/23/23 09:00 Wound - Leg, Right Gram Stain - Final 07/23/23 09:00 Wound - Leg, Right Wound Culture - Preliminary Gram negative saloni Gram positive organism Physical Exam Narrative Patient was started on antibiotic, clindamycin with PCP on 13 July. He is on vancomycin. Previous culture positive of MRSA. Uses oxygen during the night and on exertion. Physical exam General: Alert, Oriented x3, Cooperative, BMI 36.9 KG for his questions which HEENT: Atraumatic, PERRLA, EOMI, Normocephalic Oral: Oral mucosa dry. No Gingival or Mucosal Lesions/ Ulcerations Neck: Supple, No JVD, Negative Carotid Bruits Lungs: Air entry diminished in bilateral lung bases. No crepitation/rhonchi on 4 L of oxygen. Cardiovascular: Regular rate, Regular Rhythm, Normal S1, Normal S2, soft systolic murmur right second ICS Abdomen: Bowel Sounds Present, Soft, Non Tender, mild distention. : No renal angle tenderness. No suprapubic tenderness. Extremities: No edema, Capillary Refill Less than 3 Seconds Skin: Multiple superficial ulcer over legs, mainly over the right leg. It seems to be healing and looks much better since admission. Musculoskeletal: No Tenderness to Palpation of Joints or Extremities. ROM mild restriction due to arthritis. Neurological: Cranial nerves II-XII grossly intact, DTR 2+/4. No acute focal neurological deficit. Psych/Mental Status: Normal Affect, Appropriate. Assessment & Plan Assessment/Plan (1) Cellulitis of leg, right: (2) Acute hyponatremia: (3) Diabetes mellitus, type 2: QUALIFIERS: Diabetes mellitus complication status: with unspecified complications Diabetes mellitus halfway insulin use: with terminal computer operator use Qualified Code(s): E11.8 - Type 2 diabetes mellitus with unspecified complications; Z79.4 - intermediate (current) use of insulin; Z79.4 - intermediate (current) use of insulin; Z79.4 - terminal computer operator (current) use of insulin; Z79.4 - intermediate (current) use of insulin PLAN: Plan Patient was admitted with 2 weeks history of progressive right lower extremity swelling pain redness and drainage. Patient stated he was not taking care of himself with recent loss of his . 1. Lower extremity cellulitis with multidrug-resistant organisms refractory to treatment in the setting of chronic venous stasis and numerous antibiotic allergies - Admit to PCU. Initially, the patient was started on give IV vancomycin and IV aztreonam given patient's multiple antibiotic allergies and failure of his outpatient clindamycin. ID consulted. Wound culture from 07/09 shows Enterococcus MSSA and Kluyvera. Antibiotic changed to vancomycin and cefazolin. Patient has history of dyspnea with penicillin but tolerated ceftriaxone in 2019. Discussed with the wound nurse. 07/24: Repeat preliminary wound culture shows gram-negative saloni 2+, gram-positive organism 1+. Discussed with ID. Plan for discharge home on 1 week off linezolid 600 mg twice daily and Keflex 500 mg 3 times daily Hgb repeat blood culture shows organism similar to previous 1. 2. Acute hypervolemic hyponatremia of 123 mmol/L present on admission with lymphedema and varicose vein: Patient on Lasix and continued. Bilateral Satish wrap bandage. Patient had echo in March 2023 which was technically difficult reported EF 55%. Calcified aortic root. LA mildly enlarged. Normal valves. Urine osmolality 217. 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 Patient and her daughter decided he does not have peripheral arterial disease. 07/24: Repeat sodium is 128 does not show improvement.On furosemide 80 mg a.m. and 40 mg p.o. oral daily. Oral furosemide changed to IV 40 mg twice daily. 3. Diabetes mellitus type 2 uncontrolled with hyperglycemia - ADA diet. Fingerstick blood sugars before every meal and at bedtime plus sliding scale insulin. hemoglobin A1c 9.4 4. Obesity with BMI of 38.8 on admission with obstructive sleep apnea Weight loss will be recommended. Check TSH. 5. Essential hypertension - Continue home medications as previous. Plus give as needed IV hydralazine for systolic blood pressure greater than 160 mmHg. 6. Hyperlipidemia - Resume simvastatin. 7. History of coronary artery disease with STEMI in 2017 requiring stent placement with subsequent chronic diastolic CHF - Noted. Continue home regimen. 8. Restless leg syndrome - Continue home regimen as previous. 9. DVT prophylaxis - Lovenox 40 mg subcu daily. Charges/Coding Visit Charges Inpatient E&M: 54308 Subs Hosp L2
[2023-07-24] MEDS: Insulin NPH Human 100 UNITS/ML PEN 42 UNITS SC (17:03)
[2023-07-24] MEDS: Furosemide 40 MG/4 ML Vial IV (17:24)
[2023-07-24 17:32] LABS: Bedside Glucose 201 mg/dL (74-106)
[2023-07-24] MEDS: Albuterol 2.5 MG/3 ML VIAL.NEB. INHALATION (18:01)
--- NOTE | 2023-07-24 20:18 | CASEMGMT ---
Social Work Met with patient in room, introducing to self and social work role. Patient's daughter Fariba also present in room. Patient okay to talk with daughter present. 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 Patient's 07.12.23, so patient has been trying to adjust since the loss of his . Fariba reports patient has neglected self, as had focused so much on the care of patient's . Much supportive listening, reflection and general emotional support offered. Educated to bereavement services for a year after hospice care ends, and for patient to expect some contact in the near future by hospice. Broached that grieving takes time, and validated that patient is going through much change right now. Fariba expressed concern about patient returning home right away, and wondered about a short term SNF for patient. Fariba expressed this was mentioned at time of admission as a possibility. Reviewed chart. This senior underwriter discussed that HHC was being watched for, and wondered if patient felt could manage at home with intermittent HHC. Patient reported belief that could manage, and to have family support but also willing to consider short term SNF. Patient does live in a split level home, so would have to manage multiple stairs daily. This senior underwriter discussed that SW will bring a SNF list back on 07.25.23, at which time patient and daughter can consider. If patient could still benefit from SNF, then SW can continue to help pursue this, but if patient would become strong enough plan can change to go home. Plan: Home versus SNF with patient/daughter leaning towards short term SNF. -DULCE Rasheed
[2023-07-24] MEDS: Montelukast 10 MG Tablet PO (21:44)
[2023-07-24] MEDS: Pramipexole Di-HCl 1 MG Tablet 2 MG PO (21:44)
[2023-07-24] MEDS: Pravastatin 40 MG Tablet PO (21:44)
[2023-07-24 23:20] LABS: Bedside Glucose 126 mg/dL (74-106)
[2023-07-25] VITALS (10 sets, daily range): BP systolic 120–133; BP diastolic 66–68; PULSE 88–102; RESP 16–20; TEMP 36.5–37.8; O2SAT 87–97
--- NOTE | 2023-07-25 04:22 | NURSING ---
Pt had blood sugar of 47 when checked at 0450. Assymptomatic but orange juice was given. Rechecked 15 minutes later and blood glucose is now 75. Milk was given now.
[2023-07-25 04:40] LABS: Bedside Glucose 75 mg/dL (74-106)
[2023-07-25] MEDS: busPIRone 5 MG Tablet 10 MG PO ×3 (06:04→21:31)
[2023-07-25] MEDS: Cefazolin 2 GM in 0.9% Normal Saline (100mL Bag) 100 ML IV (06:05)
[2023-07-25] MEDS: 0.9% Saline Lock 10 ML Syringe IV (06:05)
[2023-07-25 06:19] LABS: Absolute Lymphocyte Count 1.21 X10^3/uL (0.83-4.51); Absolute Neutrophil Count 6.1 X10^3/uL (2.0-7.7); Basophil# 0.02 X10^3/uL; Basophil% 0.2 % (0-1); Eosinophil# 0.15 X10^3/uL; Eosinophils% 1.7 % (0-5); Hematocrit 41.5 % (40-54); Hemoglobin 12.1 g/dL (13.0-16.5); Lymphocyte # 1.21 X10^3/ul (0.83-4.51); Lymphocyte % 13.8 % (19-41); Mean Corp Hgb Conc 29.2 g/dL (32-36); Mean Corpuscular Hgb 25.6 pg (27.0-32.0); Mean Corpuscular Volume 87.7 fL (80-94); Monocyte# 1.33 X10^3/uL; Monocyte% 15.1 % (0-10); NRBC Flagged by Analyzer 0 % (0-5); Neutrophil # 6.06 X10^3/uL (2.7-7.7); Neutrophil % 68.9 % (47-70); Platelet Count 237 K/mm3 (150-450); RBC Distribution Width CV 15.1 % (11.6-14.6); RBC Distribution Width SD 48.5 fl (35.1-43.9); Red Blood Count 4.73 M/mm3 (4.6-6.2); White Blood Count 8.8 K/mm3 (4.4-11.0)
[2023-07-25 07:11] LABS: Bedside Glucose 106 mg/dL (74-106)
[2023-07-25 07:37] LABS: Anion Gap 2 (5-15); BUN 17 mg/dL (7-18); Calcium,Total 8.3 mg/dL (8.5-10.1); Chloride 92 mmol/L (98-107); Creatinine, Serum 1.13 mg/dL (0.70-1.30); EST Glomerular Filtration Rate 68 mL/min (>60); Est Glom Filt Rate - Afr Amer 82 mL/min (>60); Estimated Creatinine Clearance 58.01 ml/min; Glucose 112 mg/dL (74-106); Potassium 4.3 mmol/L (3.5-5.1); Sodium Level 130 mmol/L (136-145)
[2023-07-25] MEDS: metFORMIN HCl 1,000 MG Tablet 1000 MG PO ×2 (08:41→18:04)
[2023-07-25] MEDS: Magnesium Chloride 64 MG Delay Rel.Tablet 128 MG PO (08:41)
[2023-07-25] MEDS: Cholecalciferol (VIT D3) 25 MCG TABLET (1,000 UNITS) 50 MCG PO ×2 (08:42→21:32)
[2023-07-25] MEDS: Enoxaparin 40 MG/0.4 ML Syringe SC (08:42)
[2023-07-25] MEDS: Vitamin B Comp W-C Capsule 1 CAP PO (08:42)
[2023-07-25] MEDS: Clopidogrel Bisulfate 75 MG Tablet PO (08:42)
[2023-07-25] MEDS: Isosorbide Mononitrate 30 MG Tablet PO (08:42)
[2023-07-25] MEDS: Carvedilol 6.25 MG Tablet PO ×2 (08:42→18:03)
[2023-07-25] MEDS: Acetaminophen 325 MG Tablet PO ×2 (08:52→18:11)
[2023-07-25] MEDS: Furosemide 40 MG/4 ML Vial IV (08:53)
[2023-07-25] MEDS: Vancomycin HCl 1,250 MG in 0.9% Normal Saline (250mL Bag) 250 ML 167 MG IV (09:14)
--- NOTE | 2023-07-25 11:06 | DCINST_ITS ---
Discharge Instructions Diet Discharge Diet: Low fat / Low cholesterol, 1800 Calorie Control Diet and 2000 mg Sodium Diet Activity Discharge Activity: Return to Normal Activity Weight Bearing Status: Weight bearing as tolerated Dressing / Incision Call your doctor if you observe: Fever of 101 or Higher, Coldness, Increased Pain, Numbness or Tingling, Change in Color, Inability to urinate, Inability to have a bowel movement, Shortness of breath, Dizziness, Fainting spells, Swelling in the ankles, Chest pain, Prolonged hiccupping, Increased palpitations (irregular heartbeat) and Calf discomfort Follow Up Care When: IN 2 WEEKS Test Results: Test results from this visit will be discussed in further detail at your follow- up appointment, if applicable. Discharge Plan Admission Admit Date/Time: 07/22/23 22:30 Primary Reason for Your Visit: B/L LE ulcers. Subacute hyponatremia. Attending Provider: Stewart Dukes Primary Care Provider: Maya Pradhan Consulting Providers: Emmett Patten; Alfonso Jade Discharge Orders/Prescriptions Prescriptions: New linezolid 600 mg tablet 600 mg PO BID Qty: 14 0RF Rx Instructions: ok to take with low dose buspar cephalexin 500 mg capsule 500 mg PO TID Qty: 20 0RF Rx Instructions: tolerated cefazolin without issue insulin lispro [Humalog KwikPen Insulin] 100 unit/mL Insulin Pen See Protocol subcut ACHS & 3AM Qty: 15 3RF Protocol: 3. Sliding Scale Insulin Med Dosing Condition: 150-189 mg/dl = 1 unit Condition: 190-229 mg/dl = 2 units Condition: 230-269 mg/dl = 3 units Condition: 270-309 mg/dl = 4 units Condition: 310-349 mg/dl = 5 units Condition: 350-399 mg/dl = 6 units Condition: 400-449 mg/dl = 7 units Condition: Greater than 449 call physician Protocol Text: - Use for Total Daily Dose of Insulin 37-55 units - Obsese, infected, or steroid patients MEDIUM DOSING ALGORITHIM Continued buspirone 10 mg tablet 10 mg PO TID tizanidine 2 mg capsule 2 mg PO Q8H PRN (Reason: Spasms) vitamin B complex Tablet 1 tab PO DAILY nitroglycerin 0.4 mg tablet, sublingual 0.4 mg SUBLINGUAL Q5M PRN (Reason: Angina pain) Qty: 25 3RF clopidogrel 75 mg tablet 75 mg PO DAILY pravastatin 40 mg tablet 40 mg PO DAILY metformin 1,000 MG tablet 1,000 mg PO BIDCM montelukast 10 MG tablet 10 mg PO QHS pramipexole 1 mg tablet 2 mg PO QHS Patient Comments: 1 mg PO 2 tablets by mouth at bedtime Rx Instructions: 1 mg PO 2 tablets by mouth at bedtime fluticasone propionate 50 mcg/actuation spray,suspension 1 spray INTRANASAL DAILY PRN (Reason: nasal spray) alprazolam 0.25 mg tablet 0.25 mg PO DAILY PRN (Reason: anxiety) Patient Comments: for anxiety acetaminophen 325 MG tablet 325 - 650 mg PO Q6H PRN PRN (Reason: Pain) 0RF aspirin 81 MG tablet 81 mg PO DAILY@0800 Qty: 30 0RF cholecalciferol (vitamin D3) 2,000 UNIT capsule 2,000 unit PO BID magnesium oxide 400 MG tablet 400 mg PO DAILY coenzyme Q10 100 MG capsule 100 mg PO DAILY carvedilol 12.5 mg tablet 6.25 mg PO BID Rx Instructions: must administer with a meal/food insulin NPH isoph U-100 human 100 unit/mL suspension See Rx Instructions SC BID Qty: 10 3RF Rx Instructions: 46 units in am, 42 units in evening subcut twice a day; hold if FASTING or HS glucose less than 130 mg/dl glyburide 2.5 mg tablet 5 mg PO BID albuterol sulfate [Ventolin HFA] 90 mcg/actuation HFA aerosol inhaler 2 puff INHALATION Q4H PRN (Reason: shortness of breath or wheezing) Qty: 18 6RF isosorbide mononitrate 30 mg tablet extended release 24 hr 30 mg PO DAILY Qty: 90 3RF furosemide 40 mg tablet See Rx Instructions PO .COMPLEX Qty: 270 3RF Rx Instructions: 80mg in AM and 40mg in PM; Discontinued clindamycin HCl 300 mg capsule 300 mg PO Q12H Referrals / Follow Up: Maya Pradhan DO [Primary Care Provider] - 08/03/23 11:20 am Goyo Katz DPM [Med Staff - Active Staff] - Within 1 Week (Follow-up in wound clinic.) Disposition Disposition (needs filled in before D/C Order can be placed): Home, Self Care
--- NOTE | 2023-07-25 11:17 | DS.PCM_ITS ---
Providers Date of Admission: 07/22/23 Date of Discharge: 07/25/23 Primary Care Physician: Dr. Maya Pradhan, Consultations 07/22/23 23:39 Consult: Onc/Wound/veneer jointer Routine Comment: Reason for Consult:: Nonhealing right lower extremity cellulitis with chronic venous s 07/23/23 01:04 Consult: Infectious Disease Routine Consulting Provider: Alfonso Jade Reason for Consult: Worsening right lower extremity cellulitis With chronic venous stasis EMERGENT Consult: No MD Notified: Yes Date Notified: 07/23/23 Time Notified: 07:55 Method of Notification: Text Reason For Visit: RIGHT LOWER EXTREMITY CELLULITIS AND HYPONATREMIA Diagnosis Discharge Diagnosis (1) Cellulitis of leg, right: Status: Acute Code(s): L03.115 - Cellulitis of right lower limb (2) Acute hyponatremia: Status: Acute Code(s): E87.1 - Hypo-osmolality and hyponatremia (3) Diabetes mellitus, type 2: Status: Chronic Code(s): E11.9 - Type 2 diabetes mellitus without complications Qualifiers: Diabetes mellitus complication status: with unspecified complications Diabetes mellitus long term acute care registered nurse insulin use: with long term acute care registered nurse use Qualified Code(s): E11.8 - Type 2 diabetes mellitus with unspecified complications; Z79.4 - penitentiary (current) use of insulin; Z79.4 - penitentiary (current) use of insulin; Z79.4 - rn long term care (current) use of insulin; Z79.4 - penitentiary (current) use of insulin Plan Patient was admitted with 2 weeks history of progressive right lower extremity swelling pain redness and drainage. Patient stated he was not taking care of himself with recent loss of his . 1. Lower extremity cellulitis with multidrug-resistant organisms refractory to treatment in the setting of chronic venous stasis and numerous antibiotic allergies - Admit to PCU. Initially, the patient was started on give IV vancomycin and IV aztreonam given patient's multiple antibiotic allergies and failure of his outpatient clindamycin. ID consulted. Wound culture from 07/09 shows Enterococcus MSSA and Kluyvera. Antibiotic changed to vancomycin and cefazolin. Patient has history of dyspnea with penicillin but tolerated ceftriaxone in 2019. Discussed with the wound nurse. 07/24: Repeat preliminary wound culture shows gram-negative saloni 2+, gram- positive organism 1+. Discussed with ID. Plan for discharge home on 1 week of linezolid 600 mg twice daily and Keflex 500 mg 3 times daily 07/25:Wound culture shows Serratia marcescens 2+ and: Negative staph 1+. Serratia marcescens pansensitive. Coagulase-negative might be skin contaminant. Discussed with ID and he said he will still give him both antibiotics for 1 week as he might have infection from previous infection. Advised to follow-up in wound clinic in 1 with blood bank laboratory technician Dr. Goyo Gallegoss. 2. Subacute/chronic hypervolemic hyponatremia of 123 mmol/L present on admission with lymphedema and varicose vein: Patient on Lasix and continued. Bilateral Satish wrap bandage. Patient had echo in March 2023 which was technically difficult reported EF 55%. Calcified aortic root. LA mildly enlarged. Normal valves. Urine osmolality 217. 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 Patient and her daughter decided he does not have peripheral arterial disease. 07/24: Repeat sodium is 128 does not show improvement.On furosemide 80 mg a.m. and 40 mg p.o. oral daily. Oral furosemide changed to IV 40 mg twice daily. 07/25: Continue diuretic. Sodium is gradually improving. Today sodium 130. 3. Diabetes mellitus type 2 uncontrolled with hyperglycemia - ADA diet. Fingerstick blood sugars before every meal and at bedtime plus sliding scale insulin. hemoglobin A1c 9.4 11/renal: Glucose is controlled. Continue NPH insulin scheduled and Accu-Chek before meals and at bedtime with coverage of short acting Humalog insulin as per sliding scale 4. Obesity with BMI of 38.8 on admission with obstructive sleep apnea Weight loss will be recommended. Check TSH. 5. Essential hypertension - Continue home medications as previous. Plus give as needed IV hydralazine for systolic blood pressure greater than 160 mmHg. 6. Hyperlipidemia - Resume simvastatin. 7. History of coronary artery disease with STEMI in 2017 requiring stent placement with subsequent chronic diastolic CHF - Noted. Continue home regimen. 8. Restless leg syndrome - Continue home regimen as previous. 9. DVT prophylaxis - Lovenox 40 mg subcu daily. Medications at Discharge Home Medications metformin 1,000 mg tablet 1,000 mg PO BIDCM diabetes 01/17/16 montelukast 10 mg tablet 10 mg PO QHS allergies 01/17/16 acetaminophen 325 mg tablet 325 - 650 mg (1 - 2 x 325 mg) PO Q6H PRN PRN Pain 07/14/17 aspirin 81 mg tablet,delayed release 81 mg PO DAILY@0800 #30 tabs 07/14/17 buspirone 10 mg tablet 10 mg PO TID Anxiety 05/07/18 pramipexole 1 mg tablet 2 mg PO QHS headache 05/07/18 cholecalciferol (vitamin D3) 50 mcg (2,000 unit) capsule 2,000 unit PO BID supplement 12/08/18 coenzyme Q10 100 mg capsule 100 mg PO DAILY supplement 12/08/18 magnesium oxide 400 mg PO DAILY supplement 12/08/18 fluticasone propionate 50 mcg/actuation nasal spray,suspension 1 spray intranasal DAILY PRN nasal spray 04/05/20 alprazolam 0.25 mg tablet 0.25 mg PO DAILY PRN anxiety 10/12/20 glyburide 2.5 mg tablet 5 mg PO BID diabetes 10/12/20 tizanidine 2 mg capsule 2 mg PO Q8H PRN Spasms 03/27/21 nitroglycerin 0.4 mg sublingual tablet 0.4 mg sublingual Q5M PRN Angina pain #25 tabs 11/29/21 vitamin B complex 1 tab PO DAILY 03/14/22 albuterol sulfate 90 mcg/actuation aerosol inhaler (Ventolin HFA) 2 puff inhalation Q4H PRN shortness of breath or wheezing #18 grams 09/16/22 clopidogrel 75 mg tablet 75 mg PO DAILY 04/28/23 pravastatin 40 mg tablet 40 mg PO DAILY 04/28/23 isosorbide mononitrate 30 mg tablet,extended release 24 hr 30 mg PO DAILY #90 tabs 07/05/23 furosemide 40 mg tablet See Rx Instructions PO .COMPLEX #270 tabs 07/13/23 carvedilol 12.5 mg tablet 6.25 mg PO BID This is a dose increase 07/22/23 cephalexin 500 mg capsule 500 mg PO TID #20 caps 07/24/23 linezolid 600 mg tablet 600 mg PO BID #14 tabs 07/24/23 insulin NPH isoph U-100 human 100 unit/mL subcutaneous suspension See Rx Instructions subcut BID diabetes #10 mL 07/25/23 insulin lispro 100 unit/mL subcutaneous pen (Humalog KwikPen (U-100) Insulin) See Protocol subcut ACHS & 3AM #15 mL 07/25/23 Physical Exam Narrative Patient was started on antibiotic, clindamycin with PCP on 13 July. He is on vancomycin. Previous culture positive of MRSA. Uses oxygen during the night and on exertion. Legs looks much better. Patient is willing to go home and follow-up in the wound clinic. Physical exam General: Alert, Oriented x3, Cooperative, BMI 36.9 KG for his questions which HEENT: Atraumatic, PERRLA, EOMI, Normocephalic Oral: Oral mucosa dry. No Gingival or Mucosal Lesions/ Ulcerations Neck: Supple, No JVD, Negative Carotid Bruits Lungs: Air entry diminished in bilateral lung bases. No crepitation/rhonchi on 2.5 L/min on baseline requirement Cardiovascular: Regular rate, Regular Rhythm, Normal S1, Normal S2, soft systolic murmur right second ICS Abdomen: Bowel Sounds Present, Soft, Non Tender, mild distention. : No renal angle tenderness. No suprapubic tenderness. Extremities: No edema, Capillary Refill Less than 3 Seconds Skin: Multiple superficial ulcer over legs, mainly over the right leg. Healing has been more than 80 to 90%. Musculoskeletal: No Tenderness to Palpation of Joints or Extremities. ROM mild restriction due to arthritis. Neurological: Cranial nerves II-XII grossly intact, DTR 2+/4. No acute focal neurological deficit. Psych/Mental Status: Normal Affect, Appropriate. Weight / BMI Weight Weight: 242 lb 15.19 oz Body Mass Index (BMI) 36.9 ABG / Lab / Microbiology Data 07/25/23 06:11 07/25/23 06:11 Laboratory: Laboratory Results - last 24 hr 07/24/23 12:03: POC Glucose 162 H 07/24/23 16:57: POC Glucose 201 H 07/24/23 21:38: POC Glucose 126 H 07/25/23 04:22: POC Glucose 75 07/25/23 06:11: WBC 8.8, RBC 4.73, Hgb 12.1 L, Hct 41.5, MCV 87.7, MCH 25.6 L, MCHC 29.2 L, RDW Std Deviation 48.5 H, RDW Coeff of Jeanette 15.1 H, Plt Count 237, MPV 9.0, Immature Gran % (Auto) 0.300, Neut % (Auto) 68.9, Lymph % (Auto) 13.8 L , [place] % (Auto) 15.1 H, Eos % (Auto) 1.7, Baso % (Auto) 0.2, Absolute Neuts (auto) 6.1, Absolute Lymphs (auto) 1.21, Nucleated RBC % 0, Sodium 130 L, Potassium 4.3, Chloride 92 L, Carbon Dioxide 36.0 H, Anion Gap 2 L, BUN 17, Creatinine 1.13, Estim Creat Clear Calc 58.01, Est GFR (MDRD) Af Amer 82, Est GFR (MDRD) Non-Af 68, BUN/Creatinine Ratio 15.0, Glucose 112 H, Calcium 8.3 L 07/25/23 06:29: POC Glucose 106 Microbiology: Microbiology 07/23/23 09:00 Wound - Leg, Right Gram Stain - Final 07/23/23 09:00 Wound - Leg, Right Wound Culture - Final Serratia marcescens Coag Negative Staph D/C Instructions Discharge Diet: Low fat / Low cholesterol, 1800 Calorie Control Diet and 2000 mg Sodium Diet Weight Bearing Status: Weight bearing as tolerated Call your doctor if you observe: Fever of 101 or Higher, Coldness, Increased Ceasar n, Numbness or Tingling, Change in Color, Inability to urinate, Inability to have a bowel movement, Shortness of breath, Dizziness, Fainting spells, Swelling in the ankles, Chest pain, Prolonged hiccupping, Increased palpitations (irregular heartbeat) and Calf discomfort When: IN 2 WEEKS Meaningful Use Info Meaningful Use Diagnoses (Choose all that apply): None applicable Discharge Plan Admission Admit Date/Time: 07/22/23 22:30 Primary Reason for Your Visit: B/L LE ulcers. Subacute hyponatremia. Attending Provider: Stewart Dukes Primary Care Provider: Maya Pradhan Consulting Providers: Emmett Patten; Alfonso Jade Discharge Orders/Prescriptions Prescriptions: New linezolid 600 mg tablet 600 mg PO BID Qty: 14 0RF Rx Instructions: ok to take with low dose buspar cephalexin 500 mg capsule 500 mg PO TID Qty: 20 0RF Rx Instructions: tolerated cefazolin without issue insulin lispro [Humalog KwikPen Insulin] 100 unit/mL Insulin Pen See Protocol subcut ACHS & 3AM Qty: 15 3RF Protocol: 3. Sliding Scale Insulin Med Dosing Condition: 150-189 mg/dl = 1 unit Condition: 190-229 mg/dl = 2 units Condition: 230-269 mg/dl = 3 units Condition: 270-309 mg/dl = 4 units Condition: 310-349 mg/dl = 5 units Condition: 350-399 mg/dl = 6 units Condition: 400-449 mg/dl = 7 units Condition: Greater than 449 call physician Protocol Text: - Use for Total Daily Dose of Insulin 37-55 units - Obsese, infected, or steroid patients MEDIUM DOSING ALGORITHIM Continued buspirone 10 mg tablet 10 mg PO TID tizanidine 2 mg capsule 2 mg PO Q8H PRN (Reason: Spasms) vitamin B complex Tablet 1 tab PO DAILY nitroglycerin 0.4 mg tablet, sublingual 0.4 mg SUBLINGUAL Q5M PRN (Reason: Angina pain) Qty: 25 3RF clopidogrel 75 mg tablet 75 mg PO DAILY pravastatin 40 mg tablet 40 mg PO DAILY metformin 1,000 MG tablet 1,000 mg PO BIDCM montelukast 10 MG tablet 10 mg PO QHS pramipexole 1 mg tablet 2 mg PO QHS Patient Comments: 1 mg PO 2 tablets by mouth at bedtime Rx Instructions: 1 mg PO 2 tablets by mouth at bedtime fluticasone propionate 50 mcg/actuation spray,suspension 1 spray INTRANASAL DAILY PRN (Reason: nasal spray) alprazolam 0.25 mg tablet 0.25 mg PO DAILY PRN (Reason: anxiety) Patient Comments: for anxiety acetaminophen 325 MG tablet 325 - 650 mg PO Q6H PRN PRN (Reason: Pain) 0RF aspirin 81 MG tablet 81 mg PO DAILY@0800 Qty: 30 0RF cholecalciferol (vitamin D3) 2,000 UNIT capsule 2,000 unit PO BID magnesium oxide 400 MG tablet 400 mg PO DAILY coenzyme Q10 100 MG capsule 100 mg PO DAILY carvedilol 12.5 mg tablet 6.25 mg PO BID Rx Instructions: must administer with a meal/food insulin NPH isoph U-100 human 100 unit/mL suspension See Rx Instructions SC BID Qty: 10 3RF Rx Instructions: 46 units in am, 42 units in evening subcut twice a day; hold if FASTING or HS glucose less than 130 mg/dl glyburide 2.5 mg tablet 5 mg PO BID albuterol sulfate [Ventolin HFA] 90 mcg/actuation HFA aerosol inhaler 2 puff INHALATION Q4H PRN (Reason: shortness of breath or wheezing) Qty: 18 6RF isosorbide mononitrate 30 mg tablet extended release 24 hr 30 mg PO DAILY Qty: 90 3RF furosemide 40 mg tablet See Rx Instructions PO .COMPLEX Qty: 270 3RF Rx Instructions: 80mg in AM and 40mg in PM; Discontinued clindamycin HCl 300 mg capsule 300 mg PO Q12H Referrals / Follow Up: Maya Pradhan DO [Primary Care Provider] - 08/03/23 11:20 am Goyo Katz DPM [Med Staff - Active Staff] - Within 1 Week (Follow-up in wound clinic.) Disposition Disposition (needs filled in before D/C Order can be placed): Home, Self Care Charges/Coding Visit Charges Inpatient E&M: 36556 Disch Hosp >30min
[2023-07-25] MEDS: Insulin Lispro 100 UNIT/ML INSULN.PEN SC ×3 (11:24→21:29)
--- NOTE | 2023-07-25 11:24 | CASEMGMT ---
Addendum entered by Geni Howe 07/25/23 13:23: 1205- MYRA MENDOZA made aware pt dtr is present in room. MYRA MENDOZA into pt room, pt dtr states she would like pt to go to SNF. Pt and dtr discussing how pt will manage at home. Pt dtr states they would like to speak to SW to get questions answered regarding SNF. Updated SW. Original Note: MYRA MENDOZA notified by hospitalist that pt wants to go home. MYRA MENDOZA into pt room, pt confirmed he does want to go home. He states he feels strong and can manage at home. He denies need for any HHC. Asked pt if he would like MYRA MENDOZA to speak with his dtr and he is agreeable to this. MYRA MENDOZA to call.
[2023-07-25 11:59] LABS: Bedside Glucose 172 mg/dL (74-106)
--- NOTE | 2023-07-25 12:37 | PCM.PN.HOSP ---
Reason for Visit Reason for Visit: Diagnoses Type 2 diabetes mellitus with unspecified complications (07/22/23) Hypo-osmolality and hyponatremia (07/22/23) Chronic diastolic (congestive) heart failure (07/22/23) Cellulitis of right lower limb (07/22/23) director long term care (current) use of insulin (07/22/23) Objective Data Objective Data Vital Signs: Vital Signs Temp Pulse Resp BP Pulse Ox O2 Del Method O2 Flow Rate 100.0 F H 96 16 133/67 H 92 Nasal Cannula 2.5 07/25/23 08:32 07/25/23 08:32 07/25/23 08:32 07/25/23 08:32 07/25/23 11:22 07/25/23 11:22 07/25/23 11:22 Oxygen Flow Rate (L/min) 2.5 Oxygen Delivery Method Nasal Cannula Weight: 242 lb 15.19 oz Body Mass Index (BMI) 36.9 Intake & Output: Intake and Output for Last 24 Hours 07/23/23 07/24/23 07/25/23 23:59 23:59 23:59 Intake Total 1915 / 1915 1690 / 1690 795 / 795 Output Total 2150 / 2150 1600 / 1600 Balance -235 / -235 90 / 90 795 / 795 Lab / Micro Data 07/25/23 06:11 07/25/23 06:11 Labs: Laboratory Results - last 24 hr 07/24/23 16:57: POC Glucose 201 H 07/24/23 21:38: POC Glucose 126 H 07/25/23 04:22: POC Glucose 75 07/25/23 06:11: WBC 8.8, RBC 4.73, Hgb 12.1 L, Hct 41.5, MCV 87.7, MCH 25.6 L, MCHC 29.2 L, RDW Std Deviation 48.5 H, RDW Coeff of Jeanette 15.1 H, Plt Count 237, MPV 9.0, Immature Gran % (Auto) 0.300, Neut % (Auto) 68.9, Lymph % (Auto) 13.8 L, [place] % (Auto) 15.1 H, Eos % (Auto) 1.7, Baso % (Auto) 0.2, Absolute Neuts (auto) 6.1, Absolute Lymphs (auto) 1.21, Nucleated RBC % 0, Sodium 130 L, Potassium 4.3, Chloride 92 L, Carbon Dioxide 36.0 H, Anion Gap 2 L, BUN 17, Creatinine 1.13, Estim Creat Clear Calc 58.01, Est GFR (MDRD) Af Amer 82, Est GFR (MDRD) Non-Af 68, BUN/Creatinine Ratio 15.0, Glucose 112 H, Calcium 8.3 L 07/25/23 06:29: POC Glucose 106 07/25/23 11:19: POC Glucose 172 H Micro: Microbiology 07/23/23 09:00 Wound - Leg, Right Gram Stain - Final 07/23/23 09:00 Wound - Leg, Right Wound Culture - Final Serratia marcescens Coag Negative Staph Physical Exam Narrative Earlier patient said he wants to go home but after talking to the doctor he [facility]. Therefore discharge canceled. Wound is healing well. Patient was started on antibiotic, clindamycin with PCP on 13 July. Previous culture positive of MRSA. Uses oxygen during the night and on exertion. Physical exam General: Alert, Oriented x3, Cooperative, BMI 36.9 KG for his questions which HEENT: Atraumatic, PERRLA, EOMI, Normocephalic Oral: Oral mucosa dry. No Gingival or Mucosal Lesions/ Ulcerations Neck: Supple, No JVD, Negative Carotid Bruits Lungs: Air entry diminished in bilateral lung bases. No crepitation/rhonchi on 2.5 L/min on baseline requirement Cardiovascular: Regular rate, Regular Rhythm, Normal S1, Normal S2, soft systolic murmur right second ICS Abdomen: Bowel Sounds Present, Soft, Non Tender, mild distention. : No renal angle tenderness. No suprapubic tenderness. Extremities: No edema, Capillary Refill Less than 3 Seconds Skin: Multiple superficial ulcer over legs, mainly over the right leg. Healing has been more than 80 to 90%. Musculoskeletal: No Tenderness to Palpation of Joints or Extremities. ROM mild restriction due to arthritis. Neurological: Cranial nerves II-XII grossly intact, DTR 2+/4. No acute focal neurological deficit. Psych/Mental Status: Normal Affect, Appropriate. Assessment & Plan Assessment/Plan (1) Cellulitis of leg, right: (2) Acute hyponatremia: (3) Diabetes mellitus, type 2: QUALIFIERS: Diabetes mellitus complication status: with unspecified complications Diabetes mellitus rodent exterminator insulin use: with shelter use Qualified Code(s): E11.8 - Type 2 diabetes mellitus with unspecified complications; Z79.4 - half-way (current) use of insulin; Z79.4 - director long term care (current) use of insulin; Z79.4 - director long term care (current) use of insulin; Z79.4 - half-way (current) use of insulin PLAN: Plan Patient was admitted with 2 weeks history of progressive right lower extremity swelling pain redness and drainage. Patient stated he was not taking care of himself with recent loss of his . 1. Lower extremity cellulitis with multidrug-resistant organisms refractory to treatment in the setting of chronic venous stasis and numerous antibiotic allergies - Admit to PCU. Initially, the patient was started on give IV vancomycin and IV aztreonam given patient's multiple antibiotic allergies and failure of his outpatient clindamycin. ID consulted. Wound culture from 07/09 shows Enterococcus MSSA and Kluyvera. Antibiotic changed to vancomycin and cefazolin. Patient has history of dyspnea with penicillin but tolerated ceftriaxone in 2018. Discussed with the wound nurse. 07/24: Repeat preliminary wound culture shows gram-negative saloni 2+, gram-positive organism 1+. Discussed with ID. Plan for discharge home on 1 week of linezolid 600 mg twice daily and Keflex 500 mg 3 times daily 07/25:Wound culture shows Serratia marcescens 2+ and: Negative staph 1+. Serratia marcescens pansensitive. Coagulase-negative might be skin contaminant. Discussed with ID and he said he will still give him both antibiotics for 1 week as he might have infection from previous infection. IV antibiotics vancomycin and cefazolin discontinued and started on Keflex and linezolid as per ID recommendation. Advised to follow-up in wound clinic in 1 with black and white printer operator Dr. Goyo Katz's. 2. Subacute/chronic hypervolemic hyponatremia of 123 mmol/L present on admission with lymphedema and varicose vein: Patient on Lasix and continued. Bilateral Satish wrap bandage. Patient had echo in March 2023 which was technically difficult reported EF 55%. Calcified aortic root. LA mildly enlarged. Normal valves. Urine osmolality 217. 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 Patient and her daughter decided he does not have peripheral arterial disease. 07/24: Repeat sodium is 128 does not show improvement.On furosemide 80 mg a.m. and 40 mg p.o. oral daily. Oral furosemide changed to IV 40 mg twice daily. 07/25: Continue diuretic. Sodium is gradually improving. Today sodium 130. Furosemide IV changed to oral, furosemide 80 mg a.m. and 40 mg p.m. daily. 3. Diabetes mellitus type 2 uncontrolled with hyperglycemia - ADA diet. Fingerstick blood sugars before every meal and at bedtime plus sliding scale insulin. hemoglobin A1c 9.4 11/renal: Glucose is controlled. Continue NPH insulin scheduled and Accu-Chek before meals and at bedtime with coverage of short acting Humalog insulin as per sliding scale 4. Obesity with BMI of 38.8 on admission with obstructive sleep apnea Weight loss will be recommended. 5. Essential hypertension - Continue home medications as previous. Plus give as needed IV hydralazine for systolic blood pressure greater than 160 mmHg. 6. Hyperlipidemia - Resume simvastatin. 7. History of coronary artery disease with STEMI in 2017 requiring stent placement with subsequent chronic diastolic CHF - Noted. Continue home regimen. 8. Restless leg syndrome - Continue home regimen as previous. 9. DVT prophylaxis - Lovenox 40 mg subcu daily. Charges/Coding Addendum Addendum: Please cancel the billing charge of discharge today. Visit Charges Inpatient E&M: 33193 Subs Hosp L2
--- NOTE | 2023-07-25 12:37 | CASEMGMT ---
Social Work SW introduced self and role to patient. SW provided SNF list and pt reports he is discharging home today. SW reviewed with CM and daughter present later. SW returned to room and daughter is concerned regarding patient's ability to function alone in the home with home being a split level. Daughter believes SNF is best as patient is resistant to HHC. Pt agreeable to SNF and daughter and pt selected [facility]. Referral sent via careport to [facility] for review. Plan: Patient to d/c to SNF, will need acceptance and precert for placement. Referral pending with [facility]. Iris Shaver DETAIL MANAGER, CREATIVE MANAGER
[2023-07-25] MEDS: Cephalexin 500 MG Capsule PO ×2 (15:27→21:31)
[2023-07-25 17:17] LABS: Bedside Glucose 168 mg/dL (74-106)
[2023-07-25] MEDS: Furosemide 40 MG Tablet PO (18:04)
[2023-07-25] MEDS: Pramipexole Di-HCl 1 MG Tablet 2 MG PO (18:06)
[2023-07-25] MEDS: Insulin NPH Human 100 UNITS/ML PEN 42 UNITS SC (18:07)
[2023-07-25 20:53] LABS: Vancomycin, Trough Level 16.4 ug/mL (5.0-15.0)
[2023-07-25] MEDS: Linezolid 600 MG Tablet PO (21:31)
[2023-07-25] MEDS: Montelukast 10 MG Tablet PO (21:33)
[2023-07-25] MEDS: Pravastatin 40 MG Tablet PO (21:33)
[2023-07-25 21:55] LABS: Bedside Glucose 265 mg/dL (74-106)
--- NOTE | 2023-07-26 01:15 | NURSING ---
Primofit removed from pt, scrotal area noted to be very red and irritated from the adhesive of the primofit. Pt given the option to use a urinal or have a new primofit placed after appropriate pubic hair removal, pt chose to use urinal. All bed linens changed as a result of finding a leaking primofit. Pt stood at bedside with walker for balance, needing small amt of assistance to stand from lying in bed.
[2023-07-26 03:00] VITALS: BP 115/83; PULSE 70; RESP 17; TEMP 37.1; O2SAT 97
[2023-07-26 03:02] LABS: Bedside Glucose 45 mg/dL (74-106)
[2023-07-26 03:02] LABS: Bedside Glucose 47 mg/dL (74-106)
[2023-07-26] MEDS: busPIRone 5 MG Tablet 10 MG PO ×3 (05:22→21:15)
[2023-07-26] MEDS: Cephalexin 500 MG Capsule PO ×3 (05:22→21:16)
[2023-07-26 06:15] LABS: Absolute Lymphocyte Count 1.14 X10^3/uL (0.83-4.51); Absolute Neutrophil Count 5.9 X10^3/uL (2.0-7.7); Basophil# 0.03 X10^3/uL; Basophil% 0.3 % (0-1); Eosinophil# 0.28 X10^3/uL; Eosinophils% 3.1 % (0-5); Hematocrit 39.7 % (40-54); Hemoglobin 11.8 g/dL (13.0-16.5); Lymphocyte # 1.14 X10^3/ul (0.83-4.51); Lymphocyte % 12.7 % (19-41); Mean Corp Hgb Conc 29.7 g/dL (32-36); Mean Corpuscular Hgb 25.5 pg (27.0-32.0); Mean Corpuscular Volume 85.9 fL (80-94); Mean Platelet Vol. 9.4 fl (6.2-12.0); Monocyte# 1.54 X10^3/uL; Monocyte% 17.2 % (0-10); NRBC Flagged by Analyzer 0 % (0-5); Neutrophil # 5.94 X10^3/uL (2.7-7.7); Neutrophil % 66.4 % (47-70); POSITIVE DIFFERENTIAL YES; Platelet Count 275 K/mm3 (150-450); RBC Distribution Width CV 15.1 % (11.6-14.6); RBC Distribution Width SD 47.5 fl (35.1-43.9); Red Blood Count 4.62 M/mm3 (4.6-6.2)
[2023-07-26 06:18] LABS: Differential Indicated SCAN CRITERIA MET
[2023-07-26 06:36] LABS: Differential Comment SCANNED
[2023-07-26 06:49] LABS: Anion Gap 0 (5-15); BUN 16 mg/dL (7-18); BUN/Creat Ratio 16.3 RATIO (10-20); Calcium,Total 8.7 mg/dL (8.5-10.1); Chloride 91 mmol/L (98-107); Creatinine, Serum 0.98 mg/dL (0.70-1.30); EST Glomerular Filtration Rate 80 mL/min (>60); Est Glom Filt Rate - Afr Amer 96 mL/min (>60); Estimated Creatinine Clearance 66.89 ml/min; Glucose 49 mg/dL (74-106); Potassium 3.9 mmol/L (3.5-5.1); Sodium Level 131 mmol/L (136-145)
[2023-07-26 09:05] VITALS: BP 142/69; PULSE 88; RESP 18; TEMP 37; O2SAT 95
[2023-07-26] MEDS: Carvedilol 6.25 MG Tablet PO ×2 (09:15→16:58)
[2023-07-26] MEDS: Furosemide 40 MG Tablet 80 MG PO (09:15)
[2023-07-26] MEDS: metFORMIN HCl 1,000 MG Tablet 1000 MG PO ×2 (09:15→16:58)
[2023-07-26] MEDS: Vitamin B Comp W-C Capsule 1 CAP PO (09:15)
[2023-07-26] MEDS: Magnesium Chloride 64 MG Delay Rel.Tablet 128 MG PO (09:15)
[2023-07-26] MEDS: Linezolid 600 MG Tablet PO ×2 (09:15→21:16)
[2023-07-26] MEDS: Cholecalciferol (VIT D3) 25 MCG TABLET (1,000 UNITS) 50 MCG PO ×2 (09:16→21:16)
[2023-07-26] MEDS: Clopidogrel Bisulfate 75 MG Tablet PO (09:16)
[2023-07-26] MEDS: Isosorbide Mononitrate 30 MG Tablet PO (09:16)
[2023-07-26] MEDS: Enoxaparin 40 MG/0.4 ML Syringe SC (09:16)
[2023-07-26] MEDS: Acetaminophen 325 MG Tablet PO ×2 (10:05→16:58)
[2023-07-26 10:32] LABS: Bedside Glucose 130 mg/dL (74-106)
[2023-07-26 12:33] LABS: Bedside Glucose 114 mg/dL (74-106)
--- NOTE | 2023-07-26 14:41 | PCM.PN.HOSP ---
Reason for Visit Reason for Visit: Diagnoses Type 2 diabetes mellitus with unspecified complications (07/22/23) Hypo-osmolality and hyponatremia (07/22/23) Chronic diastolic (congestive) heart failure (07/22/23) Cellulitis of right lower limb (07/22/23) long term acute care registered nurse (current) use of insulin (07/22/23) Objective Data Objective Data Vital Signs: Vital Signs Temp Pulse Resp BP Pulse Ox O2 Del Method O2 Flow Rate 98.6 F 88 18 142/69 H 95 Nasal Cannula 2.5 07/26/23 09:05 07/26/23 09:05 07/26/23 09:05 07/26/23 09:05 07/26/23 09:05 07/26/23 09:10 07/26/23 09:10 Oxygen Flow Rate (L/min) 2.5 Oxygen Delivery Method Nasal Cannula Weight: 242 lb 15.19 oz Body Mass Index (BMI) 36.9 Intake & Output: Intake and Output for Last 24 Hours 07/24/23 07/25/23 07/26/23 23:59 23:59 23:59 Intake Total 1690 / 1690 1755 / 1755 420 / 420 Output Total 1600 / 1600 1300 / 1300 350 / 350 Balance 90 / 90 455 / 455 70 / 70 Lab / Micro Data 07/26/23 05:48 07/26/23 05:48 Labs: Laboratory Results - last 24 hr 07/25/23 03:46: POC Glucose 45 L 07/25/23 03:48: POC Glucose 47 L 07/25/23 16:48: POC Glucose 168 H 07/25/23 19:40: Vancomycin Trough 16.4 H 07/25/23 21:27: POC Glucose 265 H 07/26/23 05:48: WBC 9.0, RBC 4.62, Hgb 11.8 L, Hct 39.7 L, MCV 85.9, MCH 25.5 L, MCHC 29.7 L, RDW Std Deviation 47.5 H, RDW Coeff of Jeanette 15.1 H, Plt Count 275, MPV 9.4, Immature Gran % (Auto) 0.300, Neut % (Auto) 66.4, Lymph % (Auto) 12.7 L, Hughes % (Auto) 17.2 H, Eos % (Auto) 3.1, Baso % (Auto) 0.3, Absolute Neuts (auto) 5.9, Absolute Lymphs (auto) 1.14, Nucleated RBC % 0, Differential Comment SCANNED, Sodium 131 L, Potassium 3.9, Chloride 91 L, Carbon Dioxide 40.0 H, Anion Gap 0 L, BUN 16, Creatinine 0.98, Estim Creat Clear Calc 66.89, Est GFR (MDRD) Af Amer 96, Est GFR (MDRD) Non-Af 80, BUN/Creatinine Ratio 16.3, Glucose 49 L, Calcium 8.7 07/26/23 09:01: POC Glucose 130 H 07/26/23 12:05: POC Glucose 114 H Micro: Microbiology 07/23/23 09:00 Wound - Leg, Right Gram Stain - Final 07/23/23 09:00 Wound - Leg, Right Wound Culture - Final Serratia marcescens Coag Negative Staph Physical Exam Narrative Patient is still feels like he can go home but his daughter has concerned that patient will not be able to climb up few steps which are high. Waiting for pre-CERT. Yesterday patient was discharged. Episodes of hypoglycemia on 07/25, 45 and 47 and today 49 and 130 Patient was started on antibiotic, clindamycin with PCP on 13 July. Previous culture positive of MRSA. Uses oxygen during the night and on exertion. Physical exam General: Alert, Oriented x3, Cooperative, BMI 36.9 KG for his questions which HEENT: Atraumatic, PERRLA, EOMI, Normocephalic Oral: Oral mucosa dry. No Gingival or Mucosal Lesions/ Ulcerations Neck: Supple, No JVD, Negative Carotid Bruits Lungs: Air entry diminished in bilateral lung bases. No crepitation/rhonchi on 2.5 L/min on baseline requirement Cardiovascular: Regular rate, Regular Rhythm, Normal S1, Normal S2, soft systolic murmur right second ICS Abdomen: Bowel Sounds Present, Soft, Non Tender, mild distention. : No renal angle tenderness. No suprapubic tenderness. Extremities: No edema, Capillary Refill Less than 3 Seconds Skin: Multiple superficial ulcer over legs, mainly over the right leg. Healing has been more than 80 to 90%. Musculoskeletal: No Tenderness to Palpation of Joints or Extremities. ROM mild restriction due to arthritis. Neurological: Cranial nerves II-XII grossly intact, DTR 2+/4. No acute focal neurological deficit. Psych/Mental Status: Normal Affect, Appropriate. Assessment & Plan Assessment/Plan (1) Cellulitis of leg, right: (2) Acute hyponatremia: (3) Diabetes mellitus, type 2: QUALIFIERS: Diabetes mellitus complication status: with unspecified complications Diabetes mellitus [facility] insulin use: with [facility] use Qualified Code(s): E11.8 - Type 2 diabetes mellitus with unspecified complications; Z79.4 - [facility] (current) use of insulin; Z79.4 - long term acute care registered nurse (current) use of insulin; Z79.4 - [facility] (current) use of insulin; Z79.4 - [facility] (current) use of insulin PLAN: Plan Patient was admitted with 2 weeks history of progressive right lower extremity swelling pain redness and drainage. Patient stated he was not taking care of himself with recent loss of his . 1. Lower extremity cellulitis with multidrug-resistant organisms refractory to treatment in the setting of chronic venous stasis and numerous antibiotic allergies - Admit to PCU. Initially, the patient was started on give IV vancomycin and IV aztreonam given patient's multiple antibiotic allergies and failure of his outpatient clindamycin. ID consulted. Wound culture from 07/09 shows Enterococcus MSSA and Kluyvera. Antibiotic changed to vancomycin and cefazolin. Patient has history of dyspnea with penicillin but tolerated ceftriaxone in 2019. Discussed with the wound nurse. 07/24: Repeat preliminary wound culture shows gram-negative saloni 2+, gram-positive organism 1+. Discussed with ID. Plan for discharge home on 1 week of linezolid 600 mg twice daily and Keflex 500 mg 3 times daily 07/25:Wound culture shows Serratia marcescens 2+ and: Negative staph 1+. Serratia marcescens pansensitive. Coagulase-negative might be skin contaminant. Discussed with ID and he said he will still give him both antibiotics for 1 week as he might have infection from previous infection. IV antibiotics vancomycin and cefazolin discontinued and started on Keflex and linezolid as per ID recommendation. 07/26: Pending for pre-CERT. Advised to follow-up in wound clinic in [address] Goyo Gallegoss. 2. Subacute/chronic hypervolemic hyponatremia of 123 mmol/L present on admission with lymphedema and varicose vein: Patient on Lasix and continued. Bilateral Satish wrap bandage. Patient had echo in March 2023 which was technically difficult reported EF 55%. Calcified aortic root. LA mildly enlarged. Normal valves. Urine osmolality 217. 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 Patient and her daughter decided he does not have peripheral arterial disease. 07/24: Repeat sodium is 128 does not show improvement.On furosemide 80 mg a.m. and 40 mg p.o. oral daily. Oral furosemide changed to IV 40 mg twice daily. 07/25: Continue diuretic. Sodium is gradually improving. Today sodium 130. Furosemide IV changed to oral, furosemide 80 mg a.m. and 40 mg p.m. daily. 3. Diabetes mellitus type 2 uncontrolled with hyperglycemia - ADA diet. Fingerstick blood sugars before every meal and at bedtime plus sliding scale insulin. hemoglobin A1c 9.4 07/26: Hypoglycemia in the morning BMP and Accu-Chek. Evening dose of NPH insulin decreased. Hold scheduled NPH if glucose less than 130. Most recent 14. Patient denies symptoms of hypoglycemia. Discontinue glyburide 5 mg twice daily. 4. Obesity with BMI of 38.8 on admission with obstructive sleep apnea Weight loss will be recommended. 5. Essential hypertension - Continue home medications as previous. Plus give as needed IV hydralazine for systolic blood pressure greater than 160 mmHg. 6. Hyperlipidemia - Resume simvastatin. 7. History of coronary artery disease with STEMI in 2017 requiring stent placement with subsequent chronic diastolic CHF - Noted. Continue home regimen. 8. Restless leg syndrome - Continue home regimen as previous. 9. DVT prophylaxis - Lovenox 40 mg subcu daily. Charges/Coding Visit Charges Inpatient E&M: 66784 Subs Hosp L2
[2023-07-26 14:42] VITALS: O2SAT 96
[2023-07-26 15:13] VITALS: BP 132/67; PULSE 88; RESP 18; TEMP 36.5; O2SAT 97
[2023-07-26 16:49] VITALS: BP 131/70; PULSE 88; RESP 18; TEMP 36.3; O2SAT 94
[2023-07-26] MEDS: Furosemide 40 MG Tablet PO (16:58)
[2023-07-26] MEDS: Pramipexole Di-HCl 1 MG Tablet 2 MG PO (16:58)
[2023-07-26] MEDS: Insulin NPH Human 100 UNITS/ML PEN 37 UNITS SC (17:01)
[2023-07-26 17:28] LABS: Bedside Glucose 147 mg/dL (74-106)
[2023-07-26] MEDS: Montelukast 10 MG Tablet PO (21:16)
[2023-07-26] MEDS: Pravastatin 40 MG Tablet PO (21:16)
[2023-07-26] MEDS: Fluticasone 0.05% 1 SPRAY NASAL.SRY NASAL (21:22)
[2023-07-26] MEDS: Dextrose 50%-Water 25 GM/50 ML DISP.SYRIN IV (21:29)
[2023-07-26 22:49] VITALS: BP 135/71; PULSE 87; RESP 20; TEMP 36.3; O2SAT 97
[2023-07-26 22:57] LABS: Bedside Glucose 68 mg/dL (74-106)
[2023-07-26 22:57] LABS: Bedside Glucose 76 mg/dL (74-106)
--- NOTE | 2023-07-26 23:12 | CT_ITS ---
EXAM: CT HEAD WITHOUT INTRAVENOUS CONTRAST CLINICAL INDICATION: Confusion TECHNIQUE: Multiple axial images were obtained of the head without intravenous contrast. This CT exam was performed using one or more of the following dose reduction techniques: automated exposure control, adjustment of the mA and/or kV according to patient size, and/or use of iterative reconstruction technique. RADIATION DOSE: CTDIvol = 44.99 mGy, DLP = 829.85 mGy-cm COMPARISON: July 23, 2023. FINDINGS: BRAIN AND EXTRA-AXIAL SPACES: Minimal cerebral volume loss, minimal ventriculomegaly of the body of the lateral ventricles and mild deep periventricular low-attenuation chronic-appearing white matter changes. No intra- or extra-axial hemorrhage. No evidence of acute infarct. No intracranial mass or mass effect. There is preservation of the trivedi/white matter interface. Posterior fossa structures are unremarkable. Basal cisterns are patent. BONES/JOINTS: Unremarkable. No discrete lytic or blastic abnormalities. VASCULATURE: Mild-moderate cervical carotid calcifications, greater on the right. SINUSES: Slight mucosal thickening in multiple ethmoid air cells. Otherwise unremarkable completely included paranasal sinuses. MASTOID AIR CELLS: Unremarkable. Clear. ORBITS: Visualized globes, extraocular muscles, optic nerves and retrobulbar fat appear unremarkable. CT/Brain/Head without Contrast IMPRESSION: No acute intracranial abnormality. Mild stable chronic changes. Electronically Signed: Nathaly Wilkins MD at 1:14 EST ,
[2023-07-26 23:31] LABS: Bedside Glucose 127 mg/dL (74-106)
[2023-07-27] VITALS (8 sets, daily range): BP systolic 112–135; BP diastolic 63–71; PULSE 78–87; RESP 15–18; TEMP 36.1–37.2; O2SAT 93–98
[2023-07-27] MEDS: Acetaminophen 325 MG Tablet PO ×2 (05:08→20:00)
[2023-07-27] MEDS: busPIRone 5 MG Tablet 10 MG PO ×3 (05:09→21:38)
[2023-07-27] MEDS: Cephalexin 500 MG Capsule PO ×3 (05:09→21:39)
[2023-07-27] MEDS: Oxycodone/Apap 5/325 Tablet PO ×2 (06:32→23:06)
[2023-07-27 06:44] LABS: Anion Gap 4 (5-15); BUN 12 mg/dL (7-18); Calcium,Total 8.7 mg/dL (8.5-10.1); Chloride 88 mmol/L (98-107); EST Glomerular Filtration Rate 101 mL/min (>60); Est Glom Filt Rate - Afr Amer 122 mL/min (>60); Estimated Creatinine Clearance 81.94 ml/min; Glucose 70 mg/dL (74-106); Potassium 3.5 mmol/L (3.5-5.1); Sodium Level 131 mmol/L (136-145)
[2023-07-27 06:55] LABS: Bedside Glucose 67 mg/dL (74-106)
[2023-07-27] MEDS: Vitamin B Comp W-C Capsule 1 CAP PO (08:10)
[2023-07-27] MEDS: Carvedilol 6.25 MG Tablet PO ×2 (08:11→17:50)
[2023-07-27] MEDS: metFORMIN HCl 1,000 MG Tablet 1000 MG PO ×2 (08:11→17:50)
[2023-07-27 08:30] LABS: Bedside Glucose 109 mg/dL (74-106)
[2023-07-27] MEDS: Magnesium Chloride 64 MG Delay Rel.Tablet 128 MG PO (09:45)
[2023-07-27] MEDS: Isosorbide Mononitrate 30 MG Tablet PO (09:45)
[2023-07-27] MEDS: Furosemide 40 MG Tablet 80 MG PO (09:45)
[2023-07-27] MEDS: Cholecalciferol (VIT D3) 25 MCG TABLET (1,000 UNITS) 50 MCG PO ×2 (09:46→21:41)
[2023-07-27] MEDS: Linezolid 600 MG Tablet PO ×2 (09:46→21:45)
[2023-07-27] MEDS: Clopidogrel Bisulfate 75 MG Tablet PO (09:47)
[2023-07-27] MEDS: Pramipexole Di-HCl 1 MG Tablet PO (09:48)
--- NOTE | 2023-07-27 09:49 | PCM.PN.HOSP ---
Subjective Subjective feels well. Objective Data Objective Data Vital Signs: Vital Signs Temp Pulse Resp BP Pulse Ox O2 Del Method O2 Flow Rate 36.6 C 78 18 112/65 97 Nasal Cannula 2.5 07/27/23 04:45 07/27/23 04:45 07/27/23 04:45 07/27/23 04:45 07/27/23 04:45 07/27/23 04:45 07/27/23 04:45 Oxygen Flow Rate (L/min) 2.5 Oxygen Delivery Method Nasal Cannula Weight: 110.2 kg Body Mass Index (BMI) 36.9 Intake & Output: Intake and Output for Last 24 Hours 07/25/23 07/26/23 07/27/23 23:59 23:59 23:59 Intake Total 1755 / 1755 840 / 1490 1370 / 1370 Output Total 1300 / 1300 350 / 350 Balance 455 / 455 490 / 1140 1370 / 1370 Lab / Micro Data 07/26/23 05:48 07/27/23 05:56 Labs: Laboratory Results - last 24 hr 07/26/23 09:01: POC Glucose 130 H 07/26/23 12:05: POC Glucose 114 H 07/26/23 16:54: POC Glucose 147 H 07/26/23 21:48: POC Glucose 76 07/26/23 22:39: POC Glucose 68 L 07/26/23 23:07: POC Glucose 127 H 07/27/23 05:56: Sodium 131 L, Potassium 3.5, Chloride 88 L, Carbon Dioxide 39.0 H, Anion Gap 4 L, BUN 12, Creatinine 0.80, Estim Creat Clear Calc 81.94, Est GFR (MDRD) Af Amer 122, Est GFR (MDRD) Non-Af 101, BUN/Creatinine Ratio 15.0, Glucose 70 L, Calcium 8.7 07/27/23 06:29: POC Glucose 67 L 07/27/23 08:08: POC Glucose 109 H Micro: Microbiology 07/23/23 09:00 Wound - Leg, Right Gram Stain - Final 07/23/23 09:00 Wound - Leg, Right Wound Culture - Final Serratia marcescens Coag Negative Staph Radiography Diagnostic Testing: Radiology Impression Brain CT 07/26/23 23:12 IMPRESSION: No acute intracranial abnormality. Mild stable chronic changes. Electronically Signed: Nathaly Wilkins MD at 1:14 EST , Physical Exam Const alert and no apparent distress HEENT head/scalp atraumatic and moist oral mucous membranes Psych affect normal Assessment & Plan Assessment/Plan (1) Cellulitis of leg, right: PLAN: Wound culture from 07/09 shows Enterococcus MSSA and Kluyvera. Antibiotic changed to vancomycin and cefazolin. 07/24: Repeat preliminary wound culture shows gram-negative saloni 2+, gram-positive organism 1+. Discussed with ID. Plan for discharge home on 1 week of linezolid 600 mg twice daily and Keflex 500 mg 3 times daily 07/25:Wound culture shows Serratia marcescens 2+ and: Negative staph 1+. Serratia marcescens pansensitive. Coagulase-negative might be skin contaminant. Discussed with ID and he said he will still give him both antibiotics for 1 week as he might have infection from previous infection. IV antibiotics vancomycin and cefazolin discontinued and started on Keflex and linezolid as per ID recommendation. 07/26: Pending for pre-CERT. Advised to follow-up in wound clinic in [address] Goyo Gallegoss. (2) Acute hyponatremia: PLAN: Subacute/chronic hypervolemic hyponatremia of 123 mmol/L present on admission with lymphedema and varicose vein: Patient on Lasix and continued. Bilateral Satish wrap bandage. Patient had echo in March 2023 which was technically difficult reported EF 55%. Calcified aortic root. LA mildly enlarged. Normal valves. Urine osmolality 217. 07/24: Repeat sodium is 128 does not show improvement.On furosemide 80 mg a.m. and 40 mg p.o. oral daily. Oral furosemide changed to IV 40 mg twice daily. 07/25: Continue diuretic. Sodium is gradually improving. Today sodium 130. Furosemide IV changed to oral, furosemide 80 mg a.m. and 40 mg p.m. daily. (3) Diabetes mellitus, type 2: QUALIFIERS: Diabetes mellitus complication status: with unspecified complications Diabetes mellitus assistant terminal manager insulin use: with assistant terminal manager use Qualified Code(s): E11.8 - Type 2 diabetes mellitus with unspecified complications; Z79.4 - [facility] (current) use of insulin; Z79.4 - [facility] (current) use of insulin; Z79.4 - [facility] (current) use of insulin; Z79.4 - sn[facility] (current) use of insulin PLAN: Plan Chronic conditions: Diabetes mellitus type 2 uncontrolled with hyperglycemia - ADA diet. Fingerstick blood sugars before every meal and at bedtime plus sliding scale insulin. hemoglobin A1c 9.4 07/26: Hypoglycemia in the morning BMP and Accu-Chek. Evening dose of NPH insulin decreased. Hold scheduled NPH if glucose less than 130. Most recent 14. Patient denies symptoms of hypoglycemia. Discontinue glyburide 5 mg twice daily. Obesity with BMI of 38.8 on admission with obstructive sleep apnea Weight loss will be recommended. Essential hypertension - Continue home medications as previous. Plus give as needed IV hydralazine for systolic blood pressure greater than 160 mmHg. Hyperlipidemia - Resume simvastatin. History of coronary artery disease with STEMI in 2017 requiring stent placement with subsequent chronic diastolic CHF - Noted. Continue home regimen. Restless leg syndrome - Continue home regimen as previous. DVT prophylaxis - Lovenox 40 mg subcu daily. Disposition: to SNF. Charges/Coding Visit Charges Inpatient E&M: 74482 [facility] Hosp L1
[2023-07-27] MEDS: Enoxaparin 40 MG/0.4 ML Syringe SC (09:50)
[2023-07-27 11:37] LABS: Bedside Glucose 106 mg/dL (74-106)
--- NOTE | 2023-07-27 13:42 | CASEMGMT ---
[facility] accepted patient and started pre-cert. REGAN notified patient that [facility] accepted him. REGAN explained that now it is up to his insurance to approve him. REGAN told patient this could be today or tomorrow. REGAN called patient's daughter and left her a voice mail letting her know patient was accepted at [facility] and now waiting on insurance. Plan: d/c to [facility] pending insurance approval. Melanie Dhillon SENIOR TRAINING AND DEVELOPMENT REP JOSÉ MIGUEL
[2023-07-27] MEDS: Insulin NPH Human 100 UNITS/ML PEN 37 UNITS SC (15:54)
[2023-07-27] MEDS: Insulin Lispro 100 UNIT/ML INSULN.PEN SC ×2 (15:55→21:38)
[2023-07-27 16:32] LABS: Bedside Glucose 182 mg/dL (74-106)
[2023-07-27] MEDS: Furosemide 40 MG Tablet PO (17:51)
[2023-07-27] MEDS: Pramipexole Di-HCl 1 MG Tablet 2 MG PO (21:40)
[2023-07-27] MEDS: Pravastatin 40 MG Tablet PO (21:40)
[2023-07-27] MEDS: Montelukast 10 MG Tablet PO (21:40)
[2023-07-27 22:46] LABS: Bedside Glucose 58 mg/dL (74-106)
[2023-07-27 22:46] LABS: Bedside Glucose 61 mg/dL (74-106)
[2023-07-27 22:46] LABS: Bedside Glucose 38 mg/dL (74-106)
[2023-07-27] MEDS: Fluticasone 0.05% 1 SPRAY NASAL.SRY NASAL (23:08)
[2023-07-28 00:24] LABS: Bedside Glucose 187 mg/dL (74-106)
[2023-07-28 02:00] VITALS: BP 125/55; PULSE 81; RESP 20; TEMP 36.9; O2SAT 98
[2023-07-28] MEDS: busPIRone 5 MG Tablet 10 MG PO ×2 (06:00→13:31)
[2023-07-28] MEDS: Cephalexin 500 MG Capsule PO ×2 (06:00→13:31)
[2023-07-28 07:16] LABS: Anion Gap 6 (5-15); BUN 14 mg/dL (7-18); BUN/Creat Ratio 16.1 RATIO (10-20); Calcium,Total 8.5 mg/dL (8.5-10.1); Chloride 86 mmol/L (98-107); Creatinine, Serum 0.87 mg/dL (0.70-1.30); EST Glomerular Filtration Rate 92 mL/min (>60); Est Glom Filt Rate - Afr Amer 111 mL/min (>60); Estimated Creatinine Clearance 75.34 ml/min; Glucose 153 mg/dL (74-106); Potassium 3.8 mmol/L (3.5-5.1); Sodium Level 130 mmol/L (136-145)
[2023-07-28 07:36] VITALS: O2SAT 91
[2023-07-28 08:00] VITALS: BP 125/75; PULSE 80; RESP 18; TEMP 37.1; O2SAT 94
[2023-07-28] MEDS: Acetaminophen 325 MG Tablet PO (08:15)
[2023-07-28] MEDS: Cholecalciferol (VIT D3) 25 MCG TABLET (1,000 UNITS) 50 MCG PO (08:15)
[2023-07-28] MEDS: Enoxaparin 40 MG/0.4 ML Syringe SC (08:16)
[2023-07-28] MEDS: Magnesium Chloride 64 MG Delay Rel.Tablet 128 MG PO (08:16)
[2023-07-28] MEDS: Vitamin B Comp W-C Capsule 1 CAP PO (08:17)
[2023-07-28] MEDS: Clopidogrel Bisulfate 75 MG Tablet PO (08:17)
[2023-07-28] MEDS: Carvedilol 6.25 MG Tablet PO (08:17)
[2023-07-28] MEDS: Isosorbide Mononitrate 30 MG Tablet PO (08:17)
[2023-07-28] MEDS: Furosemide 40 MG Tablet 80 MG PO (08:18)
[2023-07-28] MEDS: Pramipexole Di-HCl 1 MG Tablet PO (08:19)
[2023-07-28] MEDS: Linezolid 600 MG Tablet PO (08:19)
[2023-07-28] MEDS: metFORMIN HCl 1,000 MG Tablet 1000 MG PO (08:20)
--- NOTE | 2023-07-28 08:23 | PCM.PN.HOSP ---
Reason for Visit Reason for Visit: Diagnoses Type 2 diabetes mellitus with unspecified complications (07/22/23) Hypo-osmolality and hyponatremia (07/22/23) Chronic diastolic (congestive) heart failure (07/22/23) Cellulitis of right lower limb (07/22/23) long term care social worker (current) use of insulin (07/22/23) Subjective Subjective Not sleeping well. Feels dizzy. Objective Data Objective Data Vital Signs: Vital Signs Temp Pulse Resp BP Pulse Ox O2 Del Method O2 Flow Rate 37.1 C 80 18 125/75 H 94 Room Air 2.5 07/28/23 08:00 07/28/23 08:00 07/28/23 08:00 07/28/23 08:00 07/28/23 08:00 07/28/23 08:00 07/28/23 02:00 Oxygen Flow Rate (L/min) 2.5 Oxygen Delivery Method Room Air Weight: 110.2 kg Body Mass Index (BMI) 36.9 Intake & Output: Intake and Output for Last 24 Hours 07/26/23 07/27/23 07/28/23 23:59 23:59 23:59 Intake Total 840 / 1490 2720 / 2750 60 / 60 Output Total 350 / 350 600 / 600 0 / 0 Balance 490 / 1140 2120 / 2150 60 / 60 Lab / Micro Data 07/26/23 05:48 07/28/23 05:39 Labs: Laboratory Results - last 24 hr 07/26/23 20:59: POC Glucose 38 L* 07/26/23 21:14: POC Glucose 58 L 07/26/23 21:27: POC Glucose 61 L 07/27/23 08:08: POC Glucose 109 H 07/27/23 11:19: POC Glucose 106 07/27/23 15:52: POC Glucose 182 H 07/27/23 21:33: POC Glucose 187 H 07/28/23 05:39: Sodium 130 L, Potassium 3.8, Chloride 86 L, Carbon Dioxide 38.0 H, Anion Gap 6, BUN 14, Creatinine 0.87, Estim Creat Clear Calc 75.34, Est GFR (MDRD) Af Amer 111, Est GFR (MDRD) Non-Af 92, BUN/Creatinine Ratio 16.1, Glucose 153 H, Calcium 8.5 Micro: Microbiology 07/23/23 09:00 Wound - Leg, Right Gram Stain - Final 07/23/23 09:00 Wound - Leg, Right Wound Culture - Final Serratia marcescens Coag Negative Staph Physical Exam Const alert Constitutional Narrative: Non toxic. dozing off. Assessment & Plan Assessment/Plan (1) Cellulitis of leg, right: PLAN: Wound culture from 07/09 shows Enterococcus MSSA and Kluyvera. Antibiotic changed to vancomycin and cefazolin. 07/24: Repeat preliminary wound culture shows gram-negative saloni 2+, gram-positive organism 1+. Discussed with ID. Plan for discharge home on 1 week of linezolid 600 mg twice daily and Keflex 500 mg 3 times daily 07/25:Wound culture shows Serratia marcescens 2+ and: Negative staph 1+. Serratia marcescens pansensitive. Coagulase-negative might be skin contaminant. Discussed with ID and he said he will still give him both antibiotics for 1 week as he might have infection from previous infection. IV antibiotics vancomycin and cefazolin discontinued and started on Keflex and linezolid 07/26: Pending for pre-CERT. Advised to follow-up in wound clinic in [address] Goyo Katz's. Continue abx through the . (2) Acute hyponatremia: PLAN: Subacute/chronic hypervolemic hyponatremia of 123 mmol/L present on admission with lymphedema and varicose vein: Patient on Lasix and continued. Bilateral Satish wrap bandage. Patient had echo in March 2023 which was technically difficult reported EF 55%. Calcified aortic root. LA mildly enlarged. Normal valves. Urine osmolality 217. 07/24: Repeat sodium is 128 does not show improvement.On furosemide 80 mg a.m. and 40 mg p.o. oral daily. Oral furosemide changed to IV 40 mg twice daily. 07/25: Continue diuretic. Sodium is gradually improving. Today sodium 130. Furosemide IV changed to oral, furosemide 80 mg a.m. and 40 mg p.m. daily. (3) Diabetes mellitus, type 2: QUALIFIERS: Diabetes mellitus complication status: with unspecified complications Diabetes mellitus [facility] use: with [facility] use Qualified Code(s): E11.8 - Type 2 diabetes mellitus with unspecified complications; Z79.4 - long term care social worker (current) use of insulin; Z79.4 - long term care social worker (current) use of insulin; Z79.4 - long term care social worker (current) use of insulin; Z79.4 - long term care social worker (current) use of insulin PLAN: Plan Chronic conditions: Diabetes mellitus type 2 uncontrolled with hyperglycemia - ADA diet. Fingerstick blood sugars before every meal and at bedtime plus sliding scale insulin. hemoglobin A1c 9.4 07/26: Hypoglycemia in the morning BMP and Accu-Chek. Evening dose of NPH insulin decreased. Hold scheduled NPH if glucose less than 130. Most recent 14. Patient denies symptoms of hypoglycemia. Discontinue glyburide 5 mg twice daily. Obesity with BMI of 38.8 on admission with obstructive sleep apnea Weight loss will be recommended. Essential hypertension - Continue home medications as previous. Plus give as needed IV hydralazine for systolic blood pressure greater than 160 mmHg. Hyperlipidemia - Resume simvastatin. History of coronary artery disease with STEMI in 2017 requiring stent placement with subsequent chronic diastolic CHF - Noted. Continue home regimen. Restless leg syndrome - Continue home regimen as previous. DVT prophylaxis - Lovenox 40 mg subcu daily. Disposition: to SNF.
--- NOTE | 2023-07-28 08:43 | CASEMGMT ---
Patient was approved to go to [facility]. SW notified physician and RN. SW also notified RN that patient will need a Covid test. plan: d/c to [facility] under skilled level of care. Melanie VALDEZ
[2023-07-28 08:45] LABS: Bedside Glucose 172 mg/dL (74-106)
[2023-07-28] MEDS: Insulin Lispro 100 UNIT/ML INSULN.PEN SC ×2 (09:08→12:00)
[2023-07-28] MEDS: Insulin NPH Human 100 UNITS/ML PEN 46 UNITS SC (09:09)
[2023-07-28 09:15] VITALS: BP 131/69; PULSE 79; RESP 20; O2SAT 95
[2023-07-28 09:41] LABS: Bedside Glucose 230 mg/dL (74-106)
--- NOTE | 2023-07-28 10:44 | TREXTCAR_ITS ---
Diet Diet Order/Speech Therapy: 07/23/23 02:05 Diet: Consistent Carb - Calorie Controlled Food consistency:: Regular Liquid Consistency:: Regular/Thin Dietary Modifications:: Cardiac / Heart Healthy Sodium Restricted How many daily calories?: 2000 calorie Wound(s) right lef: Wound Type: Skin Tear rt leg: Wound Type: cluster of stasis ulcers Dressing Change: Adaptic Lft outer ankle: Wound Type: Stasis Ulcer Therapies Weight Bearing: Full weight bearing Physical Therapy: Eval and Treat Occupational Therapy: Eval and Treat Problem/Diagnosis (1) Cellulitis of leg, right: Status: Acute Code(s): L03.115 - Cellulitis of right lower limb Plan: Wound culture from 07/09 shows Enterococcus MSSA and Kluyvera. Antibiotic changed to vancomycin and cefazolin. 07/24: Repeat preliminary wound culture shows gram-negative saloni 2+, gram- positive organism 1+. Discussed with ID. Plan for discharge home on 1 week of linezolid 600 mg twice daily and Keflex 500 mg 3 times daily 07/25:Wound culture shows Serratia marcescens 2+ and: Negative staph 1+. Serratia marcescens pansensitive. Coagulase-negative might be skin contaminant. Discussed with ID and he said he will still give him both antibiotics for 1 week as he might have infection from previous infection. IV antibiotics vancomycin and cefazolin discontinued and started on Keflex and linezolid 07/26: Pending for pre-CERT. Advised to follow-up in wound clinic in [address] forging dies final finisher [address] Goyo Gallegoss. Continue abx through the . (2) Acute hyponatremia: Status: Acute Code(s): E87.1 - Hypo-osmolality and hyponatremia Plan: Subacute/chronic hypervolemic hyponatremia of 123 mmol/L present on admission with lymphedema and varicose vein: Patient on Lasix and continued. Bilateral Satish wrap bandage. Patient had echo in March 2023 which was technically difficult reported EF 55%. Calcified aortic root. LA mildly enlarged. Normal valves. Urine osmolality 217. 07/24: Repeat sodium is 128 does not show improvement.On furosemide 80 mg a.m. and 40 mg p.o. oral daily. Oral furosemide changed to IV 40 mg twice daily. 07/25: Continue diuretic. Sodium is gradually improving. Today sodium 130. Furosemide IV changed to oral, furosemide 80 mg a.m. and 40 mg p.m. daily. (3) Diabetes mellitus, type 2: Status: Chronic Code(s): E11.9 - Type 2 diabetes mellitus without complications Plan Chronic conditions: * Diabetes mellitus type 2 uncontrolled with hyperglycemia - ADA diet. Fingerstick blood sugars before every meal and at bedtime plus sliding scale insulin. hemoglobin A1c 9.4 07/26: Hypoglycemia in the morning BMP and Accu- Chek. Evening dose of NPH insulin decreased. Hold scheduled NPH if glucose less than 130. Most recent 14. Patient denies symptoms of hypoglycemia. Discontinue glyburide 5 mg twice daily. * Obesity with BMI of 38.8 on admission with obstructive sleep apnea Weight loss will be recommended. * Essential hypertension - Continue home medications as previous. Plus give as needed IV hydralazine for systolic blood pressure greater than 160 mmHg. * Hyperlipidemia - Resume simvastatin. * History of coronary artery disease with STEMI in 2017 requiring stent placement with subsequent chronic diastolic CHF - Noted. Continue home regimen. * Restless leg syndrome - Continue home regimen as previous. DVT prophylaxis - Lovenox 40 mg subcu daily. Disposition: to SNF. Allergies/Procedures Done in Hospital Allergies Penicillins Allergy (Severe, Verified 07/22/23 19:00) Shortness of breath quinine sulfate [From Quine] Allergy (Severe, Verified 07/22/23 19:00) passed out benzocaine [From Cetacaine] Allergy (Verified 07/22/23 19:00) Swelling butamben [From Cetacaine] Allergy (Verified 07/22/23 19:00) Swelling ciprofloxacin HCl [From Cipro] Allergy (Verified 07/22/23 19:00) Hives TONGUE SWELLS clarithromycin [From Biaxin] Allergy (Verified 07/22/23 19:00) Swelling exenatide [From Byetta] Allergy (Verified 07/22/23 19:00) Rash folic acid [From Proferrin-Forte] Allergy (Verified 07/22/23 19:00) Rash hyoscyamine sulfate [From Levsin] Allergy (Verified 07/22/23 19:00) Rash iron heme polypeptide [From Proferrin-Forte] Allergy (Verified 07/22/23 19:00) tongue swelling naproxen [From Naprosyn] Allergy (Verified 07/22/23 19:00) Rash tetracaine [From Cetacaine] Allergy (Verified 07/22/23 19:00) throat swelled shut venlafaxine HCl [From Effexor] Allergy (Verified 07/22/23 19:00) tongue swelling ezetimibe [From Zetia] Adverse Reaction (Severe, Verified 07/22/23 19:00) Myalgias, diarrhea mold Adverse Reaction (Severe, Verified 07/22/23 19:00) PT UNSURE OF REACTION FROM ASPERGILLUS niacin [From Niaspan Extended-Release] Adverse Reaction (Severe, Verified 07/22/23 19:00) PT UNSURE OF REACTION procainamide Adverse Reaction (Severe, Verified 07/22/23 19:00) Anaphylactic/Resp. Distress atorvastatin calcium [From Lipitor] Adverse Reaction (Intermediate, Verified 07/22/23 19:00) Mylagias rosuvastatin calcium [From Crestor] Adverse Reaction (Intermediate, Verified 07/22/23 19:00) Myalgias diphenhydramine HCl [From Benadryl] Adverse Reaction (Verified 07/22/23 19:00) Restlessness Type of Care/Length of Stay Estimated LOS: Convalescent Care Less Than 30 days Type of Care Needed: Skilled Rehab Potential: Fair Prognosis: Good Additional Orders/Day of Discharge Day of Discharge: 07/28/23 Dietary and Speech Recommendations Dietitian Recommendations/Changes: Will adjust diet to 2000 calorie controlled/consistent carbohydrate; cardiac/sodium-restricted diet; fluid restriction as needed per physician. Discharge Plan Admission Admit Date/Time: 07/22/23 22:30 Primary Reason for Your Visit: B/L LE ulcers. Subacute hyponatremia. Attending Provider: Chema Zambrano Primary Care Provider: Maya Pradhan Consulting Providers: Emmett Patten; Alfonso Jade; Stewart Dukes Instructions Additional Instructions / Restrictions: Discussed with the [facility] pharmacist. Maximum lispro insulin as per sliding scale will be 11 units per Accu-Chek therefore before meals and at bedtime, 4 times daily, maximum amount will be 44 units/day. Discharge Orders/Prescriptions Prescriptions: New linezolid 600 mg tablet 600 mg PO BID Qty: 14 0RF Rx Instructions: ok to take with low dose buspar cephalexin 500 mg capsule 500 mg PO TID Qty: 20 0RF Rx Instructions: tolerated cefazolin without issue insulin lispro 100 unit/mL Insulin Pen See Protocol subcut ACHS Qty: 0 0RF Protocol: 4. Sliding Scale Insulin High-Med Dosing Condition: 150-199 mg/dl = 2 units Condition: 200-259 mg/dl = 4 units Condition: 260-324 mg/dl = 6 units Condition: 325-374 mg/dl = 8 units Condition: 375-409 mg/dl = 10 units Condition: 410-449 mg/dl = 11 units Condition: Greater than 449 call physician Protocol Text: - Use for Total Daily Dose of Insulin 56-80 units - Patient who are insulin resistant or septic HIGH MEDIUM DOSING ALGORITHM Continued buspirone 10 mg tablet 10 mg PO TID tizanidine 2 mg capsule 2 mg PO Q8H PRN (Reason: Spasms) vitamin B complex Tablet 1 tab PO DAILY nitroglycerin 0.4 mg tablet, sublingual 0.4 mg SUBLINGUAL Q5M PRN (Reason: Angina pain) Qty: 25 3RF clopidogrel 75 mg tablet 75 mg PO DAILY pravastatin 40 mg tablet 40 mg PO DAILY metformin 1,000 MG tablet 1,000 mg PO BIDCM montelukast 10 MG tablet 10 mg PO QHS pramipexole 1 mg tablet 2 mg PO QHS Patient Comments: 1 mg PO 2 tablets by mouth at bedtime Rx Instructions: 1 mg PO 2 tablets by mouth at bedtime fluticasone propionate 50 mcg/actuation spray,suspension 1 spray INTRANASAL DAILY PRN (Reason: nasal spray) alprazolam 0.25 mg tablet 0.25 mg PO DAILY PRN (Reason: anxiety) Patient Comments: for anxiety acetaminophen 325 MG tablet 325 - 650 mg PO Q6H PRN PRN (Reason: Pain) 0RF aspirin 81 MG tablet 81 mg PO DAILY@0800 Qty: 30 0RF cholecalciferol (vitamin D3) 2,000 UNIT capsule 2,000 unit PO BID magnesium oxide 400 MG tablet 400 mg PO DAILY coenzyme Q10 100 MG capsule 100 mg PO DAILY carvedilol 12.5 mg tablet 6.25 mg PO BID Rx Instructions: must administer with a meal/food insulin NPH isoph U-100 human 100 unit/mL suspension See Rx Instructions SC BID Qty: 10 3RF Rx Instructions: 46 units in am, 42 units in evening subcut twice a day; hold if FASTING or HS glucose less than 130 mg/dl glyburide 2.5 mg tablet 5 mg PO BID albuterol sulfate [Ventolin HFA] 90 mcg/actuation HFA aerosol inhaler 2 puff INHALATION Q4H PRN (Reason: shortness of breath or wheezing) Qty: 18 6RF isosorbide mononitrate 30 mg tablet extended release 24 hr 30 mg PO DAILY Qty: 90 3RF furosemide 40 mg tablet See Rx Instructions PO .COMPLEX Qty: 270 3RF Rx Instructions: 80mg in AM and 40mg in PM; Discontinued clindamycin HCl 300 mg capsule 300 mg PO Q12H Referrals / Follow Up: Maya Pradhan DO [Primary Care Provider] - 08/03/23 11:20 am Goyo Katz DPM [Med Staff - Active Staff] - Within 1 Week (Follow-up in wound clinic.) Disposition Disposition (needs filled in before D/C Order can be placed): Assisted Facility (3) Diabetes mellitus, type 2 Qualifiers: Diabetes mellitus complication status: with unspecified complications Diabetes mellitus terminal make up operator insulin use: with terminal make up operator use Qualified Code(s): E11.8 - Type 2 diabetes mellitus with unspecified complications; Z79.4 - correction (current) use of insulin; Z79.4 - exterminator helper termite (current) use of insulin; Z79.4 - exterminator helper termite (current) use of insulin; Z79.4 - exterminator helper termite (current) use of insulin
--- NOTE | 2023-07-28 10:47 | DS.PCM_ITS ---
Providers Date of Admission: 07/22/23 Primary Care Physician: Dr. 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/retail services professional Routine Comment: Reason for Consult:: Nonhealing right lower extremity cellulitis with chronic venous s 07/23/23 01:04 Consult: Infectious Disease Routine Consulting Provider: Alfonso Jade Reason for Consult: Worsening right lower extremity cellulitis With chronic venous stasis EMERGENT Consult: No MD Notified: Yes Date Notified: 07/23/23 Time Notified: 07:55 Method of Notification: Text Reason For Visit: RIGHT LOWER EXTREMITY CELLULITIS AND HYPONATREMIA Diagnosis Discharge Diagnosis (1) Cellulitis of leg, right: Status: Acute Code(s): L03.115 - Cellulitis of right lower limb Plan: Wound culture from 07/09 shows Enterococcus MSSA and Kluyvera. Antibiotic changed to vancomycin and cefazolin. 07/24: Repeat preliminary wound culture shows gram-negative saloni 2+, gram- positive organism 1+. Discussed with ID. Plan for discharge home on 1 week of linezolid 600 mg twice daily and Keflex 500 mg 3 times daily 07/25:Wound culture shows Serratia marcescens 2+ and: Negative staph 1+. Serratia marcescens pansensitive. Coagulase-negative might be skin contaminant. Discussed with ID and he said he will still give him both antibiotics for 1 week as he might have infection from previous infection. IV antibiotics vancomycin and cefazolin discontinued and started on Keflex and linezolid 07/26: Pending for pre-CERT. Advised to follow-up in wound clinic in [address] Goyo Katz's. Continue abx through the . (2) Acute hyponatremia: Status: Acute Code(s): E87.1 - Hypo-osmolality and hyponatremia Plan: Subacute/chronic hypervolemic hyponatremia of 123 mmol/L present on admission with lymphedema and varicose vein: Patient on Lasix and continued. Bilateral Satish wrap bandage. Patient had echo in March 2023 which was technically difficult reported EF 55%. Calcified aortic root. LA mildly enlarged. Normal valves. Urine osmolality 217. 07/24: Repeat sodium is 128 does not show improvement.On furosemide 80 mg a.m. and 40 mg p.o. oral daily. Oral furosemide changed to IV 40 mg twice daily. 07/25: Continue diuretic. Sodium is gradually improving. Today sodium 130. Furosemide IV changed to oral, furosemide 80 mg a.m. and 40 mg p.m. daily. 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 Fingerstick blood sugars before every meal and at bedtime plus sliding scale insulin. hemoglobin A1c 9.4 07/26: Hypoglycemia in the morning BMP and Accu- Chek. Evening dose of NPH insulin decreased. Hold scheduled NPH if glucose less than 130. Most recent 14. Patient denies symptoms of hypoglycemia. Discontinue glyburide 5 mg twice daily. * Obesity with BMI of 38.8 on admission with obstructive sleep apnea Weight loss will be recommended. * Essential hypertension - Continue home medications as previous. Plus give as needed IV hydralazine for systolic blood pressure greater than 160 mmHg. * Hyperlipidemia - Resume simvastatin. * History of coronary artery disease with STEMI in 2017 requiring stent placement with subsequent chronic diastolic CHF - Noted. Continue home regimen. * Restless leg syndrome - Continue home regimen as previous. DVT prophylaxis - Lovenox 40 mg subcu daily. Disposition: to SNF. Medications at Discharge Home Medications metformin 1,000 mg tablet 1,000 mg PO BIDCM diabetes 01/17/16 montelukast 10 mg tablet 10 mg PO QHS allergies 01/17/16 acetaminophen 325 mg tablet 325 - 650 mg (1 - 2 x 325 mg) PO Q6H PRN PRN Pain 07/14/17 aspirin 81 mg tablet,delayed release 81 mg PO DAILY@0800 #30 tabs 07/14/17 buspirone 10 mg tablet 10 mg PO TID Anxiety 05/07/18 pramipexole 1 mg tablet 2 mg PO QHS headache 05/07/18 cholecalciferol (vitamin D3) 50 mcg (2,000 unit) capsule 2,000 unit PO BID supplement 12/08/18 coenzyme Q10 100 mg capsule 100 mg PO DAILY supplement 12/08/18 magnesium oxide 400 mg PO DAILY supplement 12/08/18 fluticasone propionate 50 mcg/actuation nasal spray,suspension 1 spray intranasal DAILY PRN nasal spray 04/05/20 alprazolam 0.25 mg tablet 0.25 mg PO DAILY PRN anxiety 10/12/20 glyburide 2.5 mg tablet 5 mg PO BID diabetes 10/12/20 tizanidine 2 mg capsule 2 mg PO Q8H PRN Spasms 03/27/21 nitroglycerin 0.4 mg sublingual tablet 0.4 mg sublingual Q5M PRN Angina pain #25 tabs 11/29/21 vitamin B complex 1 tab PO DAILY 03/14/22 albuterol sulfate 90 mcg/actuation aerosol inhaler (Ventolin HFA) 2 puff inhalation Q4H PRN shortness of breath or wheezing #18 grams 09/16/22 clopidogrel 75 mg tablet 75 mg PO DAILY 04/28/23 pravastatin 40 mg tablet 40 mg PO DAILY 04/28/23 isosorbide mononitrate 30 mg tablet,extended release 24 hr 30 mg PO DAILY #90 tabs 07/05/23 furosemide 40 mg tablet See Rx Instructions PO .COMPLEX #270 tabs 07/13/23 carvedilol 12.5 mg tablet 6.25 mg PO BID This is a dose increase 07/22/23 cephalexin 500 mg capsule 500 mg PO TID #20 caps 07/24/23 linezolid 600 mg tablet 600 mg PO BID #14 tabs 07/24/23 insulin NPH isoph U-100 human 100 unit/mL subcutaneous suspension See Rx Instructions subcut BID diabetes #10 mL 07/25/23 insulin lispro 100 unit/mL subcutaneous pen See Protocol subcut ACHS #0 mL 07/25/23 Hospital Course Operations None Procedures None Summary of Care Provided Minutes Spent on Discharge: 32 Weight / BMI Weight Weight: 110.2 kg Body Mass Index (BMI) 36.9 ABG / Lab / Microbiology Data 07/26/23 05:48 07/28/23 05:39 Laboratory: Laboratory Results - last 24 hr 07/26/23 20:59: POC Glucose 38 L* 07/26/23 21:14: POC Glucose 58 L 07/26/23 21:27: POC Glucose 61 L 07/27/23 11:19: POC Glucose 106 07/27/23 15:52: POC Glucose 182 H 07/27/23 21:33: POC Glucose 187 H 07/28/23 05:39: Sodium 130 L, Potassium 3.8, Chloride 86 L, Carbon Dioxide 38.0 H, Anion Gap 6, BUN 14, Creatinine 0.87, Estim Creat Clear Calc 75.34, Est GFR (MDRD) Af Amer 111, Est GFR (MDRD) Non-Af 92, BUN/Creatinine Ratio 16.1, Glucose 153 H, Calcium 8.5 07/28/23 08:07: POC Glucose 172 H 07/28/23 09:11: POC Glucose 230 H Microbiology: Microbiology 07/23/23 09:00 Wound - Leg, Right Gram Stain - Final 07/23/23 09:00 Wound - Leg, Right Wound Culture - Final Serratia marcescens Coag Negative Staph D/C Instructions Discharge Diet: Low fat / Low cholesterol, 1800 Calorie Control Diet and 2000 mg Sodium Diet Weight Bearing Status: Weight bearing as tolerated Call your doctor if you observe: Fever of 101 or Higher, Coldness, Increased Pain, Numbness or Tingling, Change in Color, Inability to urinate, Inability to have a bowel movement, Shortness of breath, Dizziness, Fainting spells, Swelling in the ankles, Chest pain, Prolonged hiccupping, Increased palpitations (irregular heartbeat) and Calf discomfort When: IN 2 WEEKS Meaningful Use Info Meaningful Use Diagnoses (Choose all that apply): None applicable Discharge Plan Admission Admit Date/Time: 07/22/23 22:30 Primary Reason for Your Visit: B/L LE ulcers. Subacute hyponatremia. Attending Provider: Chema Zambrano Primary Care Provider: Maya Pradhan Consulting Providers: Emmett Patten; Alfonso Jade; Stewart Dukes Instructions Additional Instructions / Restrictions: Discussed with the [facility] pharmacist. Maximum lispro insulin as per sliding scale will be 11 units per Accu-Chek therefore before meals and at bedtime, 4 times daily, maximum amount will be 44 units/day. Discharge Orders/Prescriptions Prescriptions: New linezolid 600 mg tablet 600 mg PO BID Qty: 14 0RF Rx Instructions: ok to take with low dose buspar cephalexin 500 mg capsule 500 mg PO TID Qty: 20 0RF Rx Instructions: tolerated cefazolin without issue insulin lispro 100 unit/mL Insulin Pen See Protocol subcut ACHS Qty: 0 0RF Protocol: 4. Sliding Scale Insulin High-Med Dosing Condition: 150-199 mg/dl = 2 units Condition: 200-259 mg/dl = 4 units Condition: 260-324 mg/dl = 6 units Condition: 325-374 mg/dl = 8 units Condition: 375-409 mg/dl = 10 units Condition: 410-449 mg/dl = 11 units Condition: Greater than 449 call physician Protocol Text: - Use for Total Daily Dose of Insulin 56-80 units - Patient who are insulin resistant or septic HIGH MEDIUM DOSING ALGORITHM Continued buspirone 10 mg tablet 10 mg PO TID tizanidine 2 mg capsule 2 mg PO Q8H PRN (Reason: Spasms) vitamin B complex Tablet 1 tab PO DAILY nitroglycerin 0.4 mg tablet, sublingual 0.4 mg SUBLINGUAL Q5M PRN (Reason: Angina pain) Qty: 25 3RF clopidogrel 75 mg tablet 75 mg PO DAILY pravastatin 40 mg tablet 40 mg PO DAILY metformin 1,000 MG tablet 1,000 mg PO BIDCM montelukast 10 MG tablet 10 mg PO QHS pramipexole 1 mg tablet 2 mg PO QHS Patient Comments: 1 mg PO 2 tablets by mouth at bedtime Rx Instructions: 1 mg PO 2 tablets by mouth at bedtime fluticasone propionate 50 mcg/actuation spray,suspension 1 spray INTRANASAL DAILY PRN (Reason: nasal spray) alprazolam 0.25 mg tablet 0.25 mg PO DAILY PRN (Reason: anxiety) Patient Comments: for anxiety acetaminophen 325 MG tablet 325 - 650 mg PO Q6H PRN PRN (Reason: Pain) 0RF aspirin 81 MG tablet 81 mg PO DAILY@0800 Qty: 30 0RF cholecalciferol (vitamin D3) 2,000 UNIT capsule 2,000 unit PO BID magnesium oxide 400 MG tablet 400 mg PO DAILY coenzyme Q10 100 MG capsule 100 mg PO DAILY carvedilol 12.5 mg tablet 6.25 mg PO BID Rx Instructions: must administer with a meal/food insulin NPH isoph U-100 human 100 unit/mL suspension See Rx Instructions SC BID Qty: 10 3RF Rx Instructions: 46 units in am, 42 units in evening subcut twice a day; hold if FASTING or HS glucose less than 130 mg/dl glyburide 2.5 mg tablet 5 mg PO BID albuterol sulfate [Ventolin HFA] 90 mcg/actuation HFA aerosol inhaler 2 puff INHALATION Q4H PRN (Reason: shortness of breath or wheezing) Qty: 18 6RF isosorbide mononitrate 30 mg tablet extended release 24 hr 30 mg PO DAILY Qty: 90 3RF furosemide 40 mg tablet See Rx Instructions PO .COMPLEX Qty: 270 3RF Rx Instructions: 80mg in AM and 40mg in PM; Discontinued clindamycin HCl 300 mg capsule 300 mg PO Q12H Referrals / Follow Up: Maya Pradhan DO [Primary Care Provider] - 08/03/23 11:20 am Goyo Katz DPM [Med Staff - Active Staff] - Within 1 Week (Follow-up in wound clinic.) Disposition Disposition (needs filled in before D/C Order can be placed): [facility] Facility Charges/Coding Visit Charges Inpatient E&M: 30540 Disch Hosp >30min
--- NOTE | 2023-07-28 11:28 | PHA.DC_ITS ---
Pharmacy [facility] has performed discharge medication reconciliation and counseling for this patient. The patient's discharge medication list was reviewed for discrepancies and discrepancies were resolved. The patient was counseled on the following discharge medications and changes in medications for homegoing were reviewed. The Reason for Use, instructions for use, and potential side effects were reviewed for all new medications. The patient's questions regarding all of their medications were answered. 1. Linezolid 600 mg PO BID x 7 days 2. Cephalexin 500 mg PO TID x 7 days The patient was able to verbally demonstrate an understanding of their discharge medications. The patient was counselled on new medications by pharmacy technician per diem Hunter. Medications at Discharge Home Medications metformin 1,000 mg tablet 1,000 mg PO BIDCM diabetes 01/17/16 montelukast 10 mg tablet 10 mg PO QHS allergies 01/17/16 acetaminophen 325 mg tablet 325 - 650 mg (1 - 2 x 325 mg) PO Q6H PRN PRN Pain 07/14/17 aspirin 81 mg tablet,delayed release 81 mg PO DAILY@0800 #30 tabs 07/14/17 buspirone 10 mg tablet 10 mg PO TID Anxiety 05/07/18 pramipexole 1 mg tablet 2 mg PO QHS headache 05/07/18 cholecalciferol (vitamin D3) 50 mcg (2,000 unit) capsule 2,000 unit PO BID s upplement 12/08/18 coenzyme Q10 100 mg capsule 100 mg PO DAILY supplement 12/08/18 magnesium oxide 400 mg PO DAILY supplement 12/08/18 fluticasone propionate 50 mcg/actuation nasal spray,suspension 1 spray intranasal DAILY PRN nasal spray 04/05/20 alprazolam 0.25 mg tablet 0.25 mg PO DAILY PRN anxiety 10/12/20 glyburide 2.5 mg tablet 5 mg PO BID diabetes 10/12/20 tizanidine 2 mg capsule 2 mg PO Q8H PRN Spasms 03/27/21 nitroglycerin 0.4 mg sublingual tablet 0.4 mg sublingual Q5M PRN Angina pain #25 tabs 11/29/21 vitamin B complex 1 tab PO DAILY 03/14/22 albuterol sulfate 90 mcg/actuation aerosol inhaler (Ventolin HFA) 2 puff inhalation Q4H PRN shortness of breath or wheezing #18 grams 09/16/22 clopidogrel 75 mg tablet 75 mg PO DAILY 04/28/23 pravastatin 40 mg tablet 40 mg PO DAILY 04/28/23 isosorbide mononitrate 30 mg tablet,extended release 24 hr 30 mg PO DAILY #90 tabs 07/05/23 furosemide 40 mg tablet See Rx Instructions PO .COMPLEX #270 tabs 07/13/23 carvedilol 12.5 mg tablet 6.25 mg PO BID This is a dose increase 07/22/23 cephalexin 500 mg capsule 500 mg PO TID #20 caps 07/24/23 linezolid 600 mg tablet 600 mg PO BID #14 tabs 07/24/23 insulin NPH isoph U-100 human 100 unit/mL subcutaneous suspension See Rx Instructions subcut BID diabetes #10 mL 07/25/23 insulin lispro 100 unit/mL subcutaneous pen See Protocol subcut ACHS #0 mL 07/25/23
--- NOTE | 2023-07-28 11:38 | CASEMGMT ---
REGAN called Physicians and arranged for patient to get picked up at 2p via wheelchair van. SW notified patient that his insurance approved to go to [facility] and the physician will send him today. SW explained to patient that he will get a bill for the transport. SW let patient know he will get picked up at 2p. REGAN called patient's daughter Fariba and let her know this information as well. SW completed a convalescent in [facility]. Plan: d/c to [facility] under skilled level of care on a convalescent stay. Physicians will transport patient via wheelchair van. Melanie Dhillon CHIEF SERVICE DISPATCHER JOSÉ MIGUEL
--- NOTE | 2023-07-28 11:47 | CASEMGMT ---
Social Work Upon admission, pt stated does not have LW/POA and declined further information. BJ Marrero
[2023-07-28 12:20] LABS: Bedside Glucose 156 mg/dL (74-106)
--- NOTE | 2023-07-28 13:29 | NURSING ---
report given to [facility], all questions and concerns answered
--- NOTE | 2023-07-28 13:58 | WOUNDNOTE ---
wound photo: right lower leg
== END 2023-07-28 14:40 | disposition skilled nursing facility (03) | DRG 603 ==
LOC: ED 22:04 → PCU 22:39
PROVIDERS: Internal Medicine; Admitting Provider Internal Medicine; Emergency Provider Emergency Medicine; PCP Family Medicine
DX: L03.115 Cellulitis of right lower limb (principal); I50.32 Chronic diastolic (congestive) heart failure; L97.919 Non-pressure chronic ulcer of unspecified part of right lower leg with unspecified severity; L97.929 Non-pressure chronic ulcer of unspecified part of left lower leg with unspecified severity; E87.1 Hypo-osmolality and hyponatremia; Z16.24 Resistance to multiple antibiotics; E11.649 Type 2 diabetes mellitus with hypoglycemia without coma; I11.0 Hypertensive heart disease with heart failure; E11.65 Type 2 diabetes mellitus with hyperglycemia; Z79.4 Long term (current) use of insulin; E11.622 Type 2 diabetes mellitus with other skin ulcer; G25.81 Restless legs syndrome; J45.20 Mild intermittent asthma, uncomplicated; E78.5 Hyperlipidemia, unspecified; I25.10 Atherosclerotic heart disease of native coronary artery without angina pectoris; I89.0 Lymphedema, not elsewhere classified; I87.8 Other specified disorders of veins; G47.33 Obstructive sleep apnea (adult) (pediatric); E66.9 Obesity, unspecified; Z68.38 Body mass index [BMI] 38.0-38.9, adult; Z88.1 Allergy status to other antibiotic agents; Z79.82 Long term (current) use of aspirin; Z79.02 Long term (current) use of antithrombotics/antiplatelets; Z79.84 Long term (current) use of oral hypoglycemic drugs; Z79.899 Other long term (current) drug therapy; Z88.0 Allergy status to penicillin
CPT/HCPCS: 36415; 70450; 80048; 80053; 80202; 82962; 83036; 83605; 83930; 83935; 85025; 87070; 87077; 87186; 87205; 87426; 87640; 93005; 94640; 97110; 97116; 97162; 97166; 97530; 97535; 97802; 99284; J7040; J7050; A4216; J1940; J2405

== ENCOUNTER 2023-09-30 06:43 | Day surgery (SDC) | payer MEDICARE, SELFPAY ==
[2019-04-13 14:52] VITALS: BMI 33.3
[2023-09-29 07:16] VITALS: BMI 36.6
--- OUTSIDE RECORDS SUMMARY | 2023-09-30 06:56 | XMS RPT_ITS | CCD ---
Author Name Unknown Address [address] [place] [address] Organization [facility] Care Team Providers Care Obiee Obia Solution Architect Name Role Phone GiselestherLloyd Unavailable Unavailable Newbill, Lloyd Craig Unavailable Unavailable No Doctor Assigned, Nodr Unavailable Unavail able Newbill, Lloyd Craig Unavailable Unavailable Newbill, Lloyd Craig Unavailable Unavailable Malys, Maya A Unavailable Unavailable Rainey, George K Unavailable Unavailable Rainey, George K Unavailable Unavailable Malys Maya A Unavailable Unavailable Rainey, George K Unavailable Unavailable Rainey, George K Unavailable Unavailable Malys, Maya A Unavailable Unavailable INOCENCIO MANLEY-CARLITO ALEXANDER Primary Care Physician DR MAYA HANCOCK DO Primary Care Physician MAST CERTIFIED SKI PATROLLER-BEN[place]AMIN, [place] Primary Care Physician [phone] DR MAYA HANCOCK DO Primary Care Unavailable MIGUEL ANGEL LEUNG Attending Unava ilable MAST CERTIFIED SKI PATROLLER-[place] ALEXANDER Primary Care Unavailabl e MAST CERTIFIED SKI PATROLLER-[place] ALEXANDER Attending Unavailkatya PAINTER APRN-BENJAMIN CARLITO Primary Care Unavaila JAYNA Oh Attending Unavailable DR JEREMÍAS VAZ MD Attending Unavaila MARCUS Melendez DO Primary Care Unavailable MAST CERTIFIED SKI PATROLLER-ASSISTANT PROGRAM MANAGER, [place] Primary Care Unavailabl e MAST CERTIFIED SKI PATROLLER-[place]EN[place]AMIN, [place] Attending UnavailDR MAYA Jacobson DO Primary Care Unavailable MIGUEL ANGEL LEUNG Attending Unava ilable Allergies Allergy Classification Reported Allergen(s) Allergy Type Date of Onset Reaction(s) Facility (4 sources) Benzocaine / butamben / Tetracaine; Translations: [Cetacaine] Drug Allergy Facial swelling (finding) [facility] Repository (4 sources) diphenhydrAMINE ; Translations: [Benadryl] Drug Allergy Lightheadedness (finding) [facility] Repository (1 source) guaiFENesin / Pseudoephedrine ; Translations: [Profen Forte] Drug Allergy AOF [facility] (4 sources) Hyoscyamine; Translations: [Levsin] Drug Allergy AOF, Unknown [facility] (4 sources) Naproxen; Translations: [Naprosyn] Drug Allergy Weal (disorder) [facility] (4 sources) Penicillin; Translations: [penicillin] Drug Allergy AOF, Unknown [facility] (4 sources) quiNINE; Translations: [quiNINE] Drug Allergy AOF, Unknown [facility] (4 sources) venlafaxine; Translations: [Effexor] Drug Allergy AOF, Unknown [facility] (3 sources) Allantoin / Benzocaine / Camphor / Petrolatum; Translations: [benzocaine topical] Drug Allergy Swelling (morphologic abnormality) [facility] (3 sources) atorvastatin; Translations: [atorvastatin] Drug Allergy Muscle pain (finding) [facility] (3 sources) butamben; Translations: [butamben topical] Drug Allergy Swelling (finding) [facility] (3 sources) Ciprofloxacin; Translations: [ciprofloxacin] Drug Allergy Pharyngeal swelling (finding) [facility] (6 sources) Clarithromycin; Translations: [clarithromycin ] Drug Allergy Swelling (morphologic abnormality) [facility] (3 sources) diphenhydrAMINE ; Translations: [diphenhydramin e] Drug Allergy Unknown [facility] (3 sources) exenatide; Translations: [exenatide] Drug Allergy Eruption of skin (disorder) [facility] (3 sources) ezetimibe; Translations: [ezetimibe] Drug Allergy Diarrhea (finding), Muscle pain (finding) [facility] (3 sources) Folic Acid; Translations: [folic acid] Drug Allergy Eruption of skin (disorder) [facility] (3 sources) Hyoscyamine; Translations: [L-hyoscyamine] Drug Allergy Eruption of skin (disorder) [facility] (3 sources) Lidocaine; Translations: [lidocaine] Drug Allergy Unknown [facility] (3 sources) Naproxen; Translations: [naproxen] Drug Allergy [facility] Niacin; Translations: [niacin] Drug Allergy Headache (finding) [facility] (3 sources) Procainamide; Translations: [procainamide] Drug Allergy Unknown [facility] (3 sources) rosuvastatin; Translations: [rosuvastatin] Drug Allergy Muscle pain (finding) [facility] (3 sources) SITagliptin; Translations: [sitagliptin] Drug Allergy Unknown [facility] (3 sources) Tetracaine; Translations: [tetracaine] Drug Allergy Pharyngeal swelling (finding) [facility] (3 sources) venlafaxine; Translations: [venlafaxine] Drug Allergy Tongue swelling (finding) [facility] Medications Current Medications Medication Drug Class(es) Dates Sig (Normalized) Sig (Original) albuterol MDI (90 mcg/inh) [facility] free inhalation aerosol (3 sources) Start: 01-16-2021 albuterol MDI (90 mcg/inh) [facility]FC free inhalation aerosol 0 Refill(s) Start Date: 01/16/21 Status: Ordered ALPRAZolam 0.25 mg oral tablet (3 sources) Benzodiazepine Start: 08-28-2020 ALPRAZolam 0.25 mg oral tablet Dose : 0.25 mg = 1 tab(s), Oral, qDay, PRN as needed for anxiety, 0 Refill(s) Start Date: 08/28/20 Status: Ordered amLODIPine 5 mg oral tablet (2 sources) Dihydropyridine Calcium Channel Betsey Start: 07-28-2022 amLODIPine 5 mg oral tablet Dose : 5 mg = 1 tab(s), Oral, qDay, # 30 tab(s), 0 Refill(s) Start Date: 07/28/22 Status: Ordered aspirin 81 mg delayed release oral tablet (3 sources) Platelet Aggregation Inhibitor, Nonsteroidal Anti-inflammatory Drug Start: 08-28-2020 aspirin 81 mg oral delayed release tablet Dose : 81 mg = 1 tab(s), Oral, qDay, 0 Refill(s) Start Date: 08/28/20 Status: Ordered busPIRone hydrochloride 10 mg oral tablet (3 sources) Start: 08-28-2020 busPIRone 10 mg oral tablet Dose : 10 mg = 1 tab(s), Oral, TID, 0 Refill(s) Start Date: 08/28/20 Status: Ordered carvedilol 3.125 mg oral tablet (3 sources) alpha-Adrenergic Betsey, beta-Adrenergic Betsey Start: 08-28-2020 carvedilol 3.125 mg oral tablet Dose : 3.125 mg = 1 tab(s), Oral, BID, 0 Refill(s) Start Date: 08/28/20 Status: Ordered clopidogrel 75 mg oral tablet (3 sources) P2Y12 Platelet Inhibitor Start: 08-28-2020 clopidogrel 75 mg oral tablet Dose : 75 mg = 1 tab(s), Oral, qDay, 0 Refill(s) Start Date: 08/28/20 Status: Ordered clotrimazole 10 mg/ml topical cream (1 source) Azole Antifungal Start: 07-28-2022 End: 08-04-2022 clotrimazole 1% topical cream Apply 1 chandler, Topical, BID, X 7 day(s), # 45 gram(s), 0 Refill(s), Pharmacy: [id number], Cream, 172, cm, 07/28/22 10:04:00 EST, Height, 109 Start Date: 07/28/22 Stop Date: 08/04/22 Status: Ordered Co Q-10 100 mg oral capsule (3 sources) Start: 08-28-2020 Co Q-10 100 mg oral capsule Dose : 100 mg = 1 cap(s), Oral, Daily, 0 Refill(s) Start Date: 08/28/20 Status: Ordered Eucerin Advanced Repair topical lotion (3 sources) Start: 04-30-2022 End: 01-25-2023 Eucerin Advanced Repair topical lotion 1 application, Topical, QID, # 450 mL, 2 Refill(s), Pharmacy: [id number], Diabetes mellitus, 171.5, cm, 04/30/22 13:14:00 EDT, Height Start Date: 04/30/22 Stop Date: 01/25/23 Status: Ordered fluconazole 100 mg oral tablet (4 sources) Azole Antifungal Start: 04-30-2022 End: 05-06-2022 take 1 tablet by mouth every other day Diflucan 100 mg oral tablet 1 tab, Oral, Every other day, X 6 day(s), # 3 cap(s), 0 Refill(s), 05/06/22 15:06:00 EDT, Pharmacy: [id number], Cutaneous candidiasis, 171.5, cm, 04/30/22 13:14:00 EDT, Height, 104.9, kg, 04/30/22 13:14:00 EDT, Dosing Weight Start Date: 04/30/22 Stop Date: 05/06/22 Status: Ordered Problems Active Problems Problem Classification Problem Date Documented Da te Episodic/Chronic Coronary atherosclerosis and other heart disease (3 sources) Stented coronary artery 08-28-2020 Episodic Diabetes mellitus without complication (5 sources) Diabetes mellitus; Translations: [Type 2 diabetes mellitus without complications] Onset: 04-30-2022 08-28-2020 Chronic Disorders of lipid metabolism (5 sources) Hyperlipidemia; Translations: [Hyperlipidemia, unspecified] Onset: 04-30-2022 08-28-2020 Chronic Essential hypertension (3 sources) Hypertensive disorder 08-28-2020 Chronic Genitourinary symptoms and ill-defined conditions (6 sources) Incomplete emptying of bladder; Translations: [Discharge from penis] Onset: 01-02-2023 02-14-2021 Episodic Hyperplasia of prostate (5 sources) Benign prostatic hypertrophy with outflow obstruction; Translations: [Benign prostatic hyperplasia with lower urinary tract symptoms] Onset: 07-28-2022 01-16-2021 Chronic Inflammatory conditions of male genital organs (9 sources) Chronic epididymitis; Translations: [Prostatitis] 10-17-2020 Episodic Mycoses (7 sources) Onychomycosis due to dermatophyte ; Translations: [Tinea cruris] 10-17-2020 Episodic Other diseases of kidney and ureters (3 sources) Cyst of kidney 02-15-2021 Episodic Other gastrointestinal disorders (3 sources) Irritable bowel syndrome 08-28-2020 Chronic Other lower respiratory disease (3 sources) Dyspnea 09-03-2020 Episodic Other lower respiratory disease (3 sources) H/O: pneumonia 08-28-2020 Episodic Other male genital disorders (3 sources) Impotence 01-16-2021 Chronic Other male genital disorders (2 sources) Male erectile dysfunction, unspecified; Translations: [Male erectile dysfunction, unspecified] Onset: 07-28-2022 Chronic Other male genital disorders (3 sources) Adult hydrocele 09-03-2020 Episodic Other male genital disorders (3 sources) History of prostatitis 01-16-2021 Episodic Other male genital disorders (1 source) Pain in scrotum 01-02-2023 Episodic Other male genital disorders (1 source) Prostatic pain 01-02-2023 Episodic Other male genital disorders (1 source) Swelling of scrotum 01-02-2023 Episodic Other male genital disorders (2 sources) Prostatodynia syndrome; Translations: [Prostatodynia syndrome] Onset: 01-02-2023 Episodic Swetha-; endo-; and myocarditis; cardiomyopathy (except that caused by tuberculosis or sexually transmitted disease) (3 sources) Ejection murmur 08-28-2020 Chronic Residual codes; unclassified (3 sources) FH: Thrombosis 09-03-2020 Episodic Residual codes; unclassified (3 sources) Peripheral edema 08-28-2020 Episodic Screening and history of mental health and substance abuse codes (3 sources) Ex-tobacco user 09-03-2020 Episodic Unclassified (4 sources) Patient encounter status 07-09-2022 Past or Other Problems Problem Classification Problem Date Documented Da te Episodic/Chronic Other screening for suspected conditions (not mental disorders or infectious disease) (5 sources) Raised prostate specific antigen; Translations: [Elevated prostate specific antigen [PSA]] Onset: 07-28-2022 02-14-2021 Episodic Results Test Name Value Interpretation Reference Range Facil ity Encounters Encounter Date Encounter Type Care Provider Facility Start: 01-08-2023 ambulatory [place] MAST CERTIFIED SKI PATROLLER-ASSISTANT PROGRAM MANAGER Fa cility:B Start: 01-02-2023 End: 01-07-2023 ambulatory [place] MAST CERTIFIED SKI PATROLLER-ASSISTANT PROGRAM MANAGER Facility:B Start: 01-02-2023 End: 01-06-2023 Outreach Lab [place] MAST CERTIFIED SKI PATROLLER-ASSISTANT PROGRAM MANAGER [facility] Start: 07-28-2022 End: 08-02-[address] MAYA HANCOCK DO Facility:A Start: 07-28-2022 End: 07-28-2022 Patient encounter procedure [facility] CERTIFIED SKI PATROLLER-ASSISTANT PROGRAM MANAGER [place] Start: 07-18-2022 End: 07-19-[address] JEREMÍAS VAZ MD Facility:B Start: 04-30-2022 End: 05-05-2022 ambulatory CARLITO PAINTER CERTIFIED SKI PATROLLER-ASSISTANT PROGRAM MANAGER Facility:B Start: 04-30-2022 End: 05-04-2022 Outreach Lab JAYNA SKINNER CERTIFIED SKI PATROLLER-ASSISTANT PROGRAM MANAGER [facility] Start: 08-19-2018 End: 08-19-2018 Patient encounter procedure [facility] Facility:[facility] Start: 08-19-2018 Patient encounter procedure Facility:[id number] Start: 07-29-2018 End: 07-29-2018 Patient encounter procedure [facility] Facility:[facility] Start: 07-29-2018 Patient encounter procedure Facility:[id number] Start: 06-16-2018 End: 06-17-2018 Patient encounter procedure [facility] Facility:[facility] Start: 06-16-2018 Patient encounter procedure Facility:[id number] Start: 06-14-2018 End: 06-15-2018 Patient encounter procedure [facility] Facility:[facility] Procedures Date Procedure Procedure Detail Performing Clinician Appendectomy JAYNA CARSON CERTIFIED SKI PATROLLER-ASSISTANT PROGRAM MANAGER Cholecystectomy JAYNA YANG CERTIFIED SKI PATROLLER-ASSISTANT PROGRAM MANAGER Heart structure (body structure) JAYNA SKINNER CERTIFIED SKI PATROLLER-ASSISTANT PROGRAM MANAGER Immunizations Immunization Date Immunization Notes Care Provider Hira meeks 06-11-2022 influenza virus vaccine, unspecified formulation [facility] CERTIFIED SKI PATROLLER-ASSISTANT PROGRAM MANAGER [facility] 12-17-2021 SARS-CoV-2 (COVID-19 ) [id number] vaccine MIGUEL ANGEL QUINN CERTIFIED SKI PATROLLER-ASSISTANT PROGRAM MANAGER [facility] Payers Date Payer Category Payer Private Health Insurance [id number] 2018 Private Health Insurance 1950 Unknown [id number] 2.16.84 [id number] 1950 Unknown [id number] 2.16.84 [id number] 1950 Unknown [id number] 2.16.84 [id number] 1950 Unknown [id number] 2.16.84 [id number] 1950 Unknown [id number] 2.16. [id number] 1950 Unknown [id number] 2.16. [id number] 1950 Unknown [id number] 2.16. [id number] 1950 Unknown [id number] 2.16.8 [id number] 1950 Unknown [id number] 2.16.8 [id number] 1950 Unknown [id number] 2.16.8 [id number] 1950 Unknown [id number] 2.16.8 [id number] 1950 Unknown [id number] 2.16.8 [id number] 1950 Unknown [id number] 2.16.8 [id number] Social History Date Type Detail Facility Start: 08-28-2020 Tobacco smoking status Never s moked tobacco (finding) [place] Sex Assigned At Sex [facility] Medical Equipment Procedure Code Equipment Code Equipment Origin al Text Equipment Identifier Dates Accu-Chek Lindsay Plus test strips, See Instructions, TID, 0 Refill(s) Start: 08-28-2020 Accu-Chek Lindsay Plus test strips, See Instructions, TID, 0 Refill(s) Start: 08-28-2020 Accu-Chek Lindsay Plus test strips, See Instructions, TID, 0 Refill(s) Start: 08-28-2020 Clinical Note 01-07-2023 Note Date & Type Note Facility 01-07-2023 Note . MICRO - Microbiology PROCEDURE: Culture Body Fluid with Gram Stain [*1] SOURCE: Prostatic Fluid BODY SITE: COLLECTED DATE/TIME: 01/02/2023 08:10 EDT RECEIVED DATE/TIME: 01/02/2023 19:15 EDT START DATE/TIME: 01/02/2023 19:15 EDT FREE TEXT SOURCE: on swabs FINAL REPORTS Final Report [] Verified Date/Time/Personnel: 01/07/2023 14:04 EDT Few normal sarah for site present. Sensitivity testing not indicated. Neisseria gonorrhoeae: Negative Ureaplasma urealyticum: Negative No anaerobes isolated at 5 days. PRELIMINARY REPORTS Preliminary Report [] Verified Date/Time/Personnel: 01/05/2023 12:38 EDT Few normal sarah for site present. Sensitivity testing not indicated. Neisseria gonorrhoeae: Negative Ureaplasma urealyticum: Pending No anaerobes isolated to date. Preliminary Report [] Verified Date/Time/Personnel: 01/04/2023 15:31 EDT Few normal sarah for site present. Sensitivity testing not indicated. Preliminary Report [] Verified Date/Time/Personnel: 01/03/2023 10:34 EDT Culture results pending. STAINS GS [] Verified Date/Time/Personnel: 01/02/2023 20:26 EDT No organisms seen. Performing Locations *1: This test was performed at: [place], [address] [place] [address], [phone] , [facility] ([place]) Clinical Note 07-30-2022 Note Date & Type Note Facility 07-30-2022 Note . MICRO - Microbiology PROCEDURE: Urine Culture [*1] SOURCE: Urine, Clean Catch BODY SITE: COLLECTED DATE/TIME: 07/28/2022 10:20 EST RECEIVED DATE/TIME: 07/28/2022 16:00 EST START DATE/TIME: 07/28/2022 16:00 EST FREE TEXT SOURCE: FINAL REPORTS Final Report [] Verified Date/Time/Personnel: 07/30/2022 08:03 EST No growth at 48 hours. PRELIMINARY REPORTS Preliminary Report [] Verified Date/Time/Personnel: 07/29/2022 09:09 EST No growth to date Performing Locations *1: This test was performed at: [place], [address] [place] [address], [id number]- , [facility] ([place]) Progress note 05-08-2022 Note Date & Type Note Facility 05-08-2022 Note HNO ID: [id number] Author: Nirmal Herndon APRN.ASSISTANT PROGRAM MANAGER Service: ? Author Type: Nurse Practitioner Type: Progress Notes Filed: 05/08/2022 2:27 PM Note Text: Subjective HPI HPI Blanca Gill is a 71 year old male who presents today for CC of left leg redness/swelling, opening in skin. This started 2 weeks ago. Has tried otc mediation without relief. Symptoms are worsened by nothing. Risk factors diabetic, uncontrolled. Denies injury, and fever. .Patient presents with: Rash: LYDIA lower leg rash, red and swollen x2 weeks PAST MEDICAL HISTORY Diagnosis Date Allergic rhinitis Anxiety Diabetes (HCC) Essential hypertension, benign Hypertension Hypertrophy of prostate with urinary obstruction and other lower urinary tract symptoms (LUTS) Intrinsic asthma with status asthmaticus Irritable bowel syndrome Pure hypercholesterolemia Restless leg syndrome Sinusitis, chronic Tobacco abuse PAST SURGICAL HISTORY Procedure Laterality Date APPENDECTOMY CHOLECYSTECTOMY PAST SURGICAL HISTORY OF 2009 left knee arthroscopy VASECTOMY XCAPSL CTRC RMVL INSJ IO LENS PROSTH W/O ECP Left 07/29/2018 XCAPSL CTRC RMVL INSJ IO LENS PROSTH W/O ECP Right 08/19/2018 Cataract Extraction with PC IOL ALLERGIES Aspergillus Fumigatus Allergenic Extract, Benadryl [Diphenhydramine Hcl], Biaxin [Clarithromycin], Byetta [Exenatide], Levsin [Hyoscyamine Sulfate], Lidocaine, Naprosyn [Naproxen], Penicillins, and Quinine Hcl MEDICATIONS ACCU-CHEK LINDSAY PLUS TEST STRP test strip ACCU-CHEK GUIDE ME GLUCOSE MTR USE DIRECTED THREE TIMES DAILY NOVOLIN N NPH U-100 INSULIN 100 unit/mL injection INJECT 40 UNITS SUBCUTANEOUSLY IN THE MORNING AND IN THE EVENING isosorbide mononitrate ER (IMDUR) 30 mg 24 hr tablet Take 30 mg by mouth once daily. ubidecarenone Q-10 (COENZYME Q-10) 10 mg cap Take by mouth twice daily. carvedilol (COREG) 3.125 mg tablet Take 3.125 mg by mouth twice daily with meals. Cyanocobalamin 2,500 mcg subl Dissolve under the tongue. pravastatin (PRAVACHOL) 40 mg tablet Take 40 mg by mouth once daily. aspirin, enteric coated (ASPIRIN, ENTERIC COATED) 81 mg EC tablet Take 81 mg by mouth once daily. clopidogrel (PLAVIX) 75 mg tablet Take 75 mg by mouth once daily. metFORMIN 1,000 mg tablet Take 1,000 mg by mouth twice daily with meals. montelukast (SINGULAIR) 10 mg tablet Take 10 mg by mouth daily at bedtime. fluticasone (FLONASE) 50 mcg/actuation nasal spray Use 1 Hersey in each nostril once daily. econazole 1 % TOPICAL cream Apply to affected area once daily. ALPRAZolam 0.25 mg ORAL tablet Take 0.25 mg by mouth at bedtime as needed. busPIRone (BUSPAR) 10 mg tablet Take 10 mg by mouth four times daily as needed. pramipexole (MIRAPEX) 1 mg tablet Take 1 mg by mouth twice daily. ALBUTEROL SULFATE (PROVENTIL HFA INHALATION) Inhale as instructed. azelastine (ASTELIN, ASTEPRO) 0.1% nasal spray Use 1 Hersey in the nose twice daily. Use in each nostril as directed econazole (SPECTAZOLE) 1 % cream Apply to affected area once daily. doxycycline monohydrate 100 mg tablet Take 1 tablet by mouth twice daily for 7 days. losartan 50 mg tablet Take 50 mg by mouth once daily. sitaGLIPtin (JANUVIA) 100 mg tablet Take 100 mg by mouth once daily. mometasone-formoterol (DULERA) 200-5 mcg/actuation inhaler Inhale as instructed twice daily. metoprolol succinate XL (TOPROL XL) 25 mg ORAL 24 hr tablet Take 25 mg by mouth once daily. diphenoxylate-atropine (LOMOTIL) 2.5-0.025 mg per tablet Take 1 tablet by mouth four times daily as needed. (Patient not taking: Reported on 05/08/2022) glyBURIDE 2.5 mg ORAL tablet Take 2.5 mg by mouth daily with breakfast. Pitavastatin (LIVALO) 2 mg ORAL Tab Take by mouth. FAMILY HISTORY Problem Relation Age of Onset Alzheimer's Disease Mother Diabetes Mother Hypertension Mother No Ocular Disease Mother Heart Father No Ocular Disease Father Glaucoma Brother Social History Tobacco Use Smoking status: Never Smokeless tobacco: Former Types: Chew Substance Use Topics Alcohol use: No Drug use: No ROS Objective Blood pressure 132/78, pulse 105, temperature 37.3 ?C (99.1 ?F), resp. rate 20, weight 105.4 kg (232 lb 6.4 oz), SpO2 94 %. Physical Exam Constitutional: General: He is not in acute distress. Appearance: He is not toxic-appearing or diaphoretic. HENT: Head: Normocephalic and atraumatic. Pulmonary: Effort: Pulmonary effort is normal. No accessory muscle usage or respiratory distress. Skin: Neurological: Mental Status: He is alert and oriented to person, place, and time. ASSESSMENT/PLAN: 1. Cellulitis of left lower extremity - ICD9: 682.6, ICD10: L03.116 - Begin treatment with doxycycline - Follow up for recheck in three days with pcp. Go to ER for severe/worsening s/s. - DOXYCYCLINE MONOHYDRATE 100 MG TABLET Agrees to plan Nirmal Herndon APRN.[facility] Clinical Note 05-03-2022 Note Date & Type Note Facility 05-03-2022 Note . MICRO - Microbiology PROCEDURE: Urine Culture [*1] SOURCE: Urine, Clean Catch BODY SITE: COLLECTED DATE/TIME: 04/30/2022 16:17 EDT RECEIVED DATE/TIME: 05/01/2022 14:18 EDT START DATE/TIME: 05/01/2022 14:18 EDT FREE TEXT SOURCE: FINAL REPORTS Final Report [] Verified Date/Time/Personnel: 05/03/2022 07:29 EDT No growth at 48 hours. PRELIMINARY REPORTS Preliminary Report [] Verified Date/Time/Personnel: 05/02/2022 08:50 EDT No growth to date Performing Locations *1: This test was performed at: [place], [address] [place] [address], [facility] , [facility] ([place]) Evaluation + Plan note 04-30-2022 Laboratory Note Date & Type Note Facility 04-30-2022 Evaluation + Plan note Future Scheduled TestsProstate Specific Antigen 04/30/22Thyroid Stimulating Hormone 04/30/22A1C Hemoglobin 04/30/22Complete Blood Count 04/30/22Lipid Profile 04/30/22PSA, Free 05/18/21Vitamin D Level 04/30/22Complete Metabolic Panel 04/30/22 [facility] Evaluation + Plan note Laboratory Note Date & Type Note Facility Evaluation + Plan note Future Appointments Appointment Date:07/31/2023 09:00:00 AM Scheduled Provider:JEREMÍAS VAZ MD Location:UROLOGY Appointment Type:URO OV Future Scheduled TestsProstate Specific Antigen 04/30/22Prostate Specific Antigen 07/10/22Prostate Specific Antigen 07/28/23Thyroid Stimulating Hormone 04/30/22A1C Hemoglobin 04/30/22Complete Blood Count 04/30/22Lipid Profile 04/30/22Vitamin D Level 04/30/22Complete Metabolic Panel 04/30/22 [place] Evaluation + Plan note Laboratory Note Date & Type Note Facility Evaluation + Plan note Future Appointments Appointment Date:07/31/2023 09:00:00 AM Scheduled Provider:JEREMÍAS VAZ MD Location:UROLOGY Appointment Type:URO OV Future Scheduled TestsProstate Specific Antigen 04/30/22Prostate Specific Antigen 07/10/Prostate Specific Antigen 07/28/23Prostate Specific Antigen 01/02/23Thyroid Stimulating Hormone 04/30/22A1C Hemoglobin 01/02/23A1C Hemoglobin 04/30/22Complete Blood Count 04/30/22Lipid Profile 04/30/22Vitamin D Level 04/30/22Complete Metabolic Panel 04/30/22 [facility] Hospital course Narrative Note Date & Type Note Facility Hospital course Narrative No data available for this section [facility] Hospital Discharge instructions Note Date & Type Note Facility Hospital Discharge instructions No data available for this section [facility] Hospital Progress note Note Date & Type Note Facility Progress note No data available for this section [facility] Summary Purpose Family History No Family History Records FoundNo Family History Records FoundNo Family History Records FoundNo Family History Records Found Advance Directives No Advanced Directives Records FoundNo Advanced Directives Records FoundNo Advanced Directives Records FoundNo Advanced Directives Records Found Additional Source Comments (unrecognized sect ion and content) No Status Records FoundNo Status Records FoundNo Status Records FoundNo Status Records Found INFORMATION SOURCE (unrecogn ized section and content) DATE CREATED AUTHOR AUTHOR'S ORGANIZ ATION 08/24/2018 [facility] DATE CREATED AUTHOR AUTHOR'S ORGANIZ ATION 05/10/2022 [facility] DATE CREATED AUTHOR AUTHOR'S ORGANIZ ATION 01/08/2023 [facility] [place] ([place]) Care Team (unrecognized sect ion and content) Care Team Personnel Name: CARLITO PAINTER Position: P4 Advanced Practice Nurse Med Service: Active Provider Member Role: Primary Care Physician Address: Address: [address] [facility] [place] [address]- [place] Care Team Related Persons Name: MARK GILL Care Team Personnel Name: MAYA HANCOKC DO Member Role: Primary Care Physician Address: Address: [address] [place] [address] [place] [address]- [place] Care Team Related Persons Name: MARK GILL Patient Care team informatio n (unrecognized section and content) Care Team Personnel Name: AMERICA SEAMANASSISTANT PROGRAM MANAGER Position: P4 Advanced Clerk Entry Level Member Role: Primary Care Physician Address: Address: [address] [place] [address]- Care Team Related Persons Name: MARK GILL FOR RECORDS PERTAINING TO PATIENTS WHO ARE OR HAVE BEEN ENROLLED IN A CHEMICAL DEPENDENCY/SUBSTANCEABUSE PROGRAM, SOME INFORMATION MAY BE OMITTED. This clinical summary was aggregated from multiple sources. Caution should be exercised in using it in the provision of clinical care. This summary normalizes information from multiple sources, and as a consequence, information in this document may materially change the coding, format and clinical context of patient data. In addition, data may be omitted in some cases. CLINICAL DECISIONS SHOULD BE BASED ON THE PRIMARY CLINICAL RECORDS. [facility] [employer] provides no warranty or guarantee of the accuracy or completeness of information in this document.
[2023-09-30 06:57] LABS: Hematocrit 41.5 % (40-54); Hemoglobin 12.4 g/dL (13.0-16.5); Mean Corp Hgb Conc 29.9 g/dL (32-36); Mean Corpuscular Volume 83.7 fL (80-94); Mean Platelet Vol. 9.2 fl (6.2-12.0); Platelet Count 326 K/mm3 (150-450); RBC Distribution Width CV 18.1 % (11.6-14.6); RBC Distribution Width SD 54.8 fl (35.1-43.9); Red Blood Count 4.96 M/mm3 (4.6-6.2); White Blood Count 6.9 K/mm3 (4.4-11.0)
[2023-09-30 07:11] LABS: Anion Gap 2 (5-15); BUN 16 mg/dL (7-18); BUN/Creat Ratio 15.4 RATIO (10-20); Calcium,Total 9.4 mg/dL (8.5-10.1); Chloride 97 mmol/L (98-107); Creatinine, Serum 1.04 mg/dL (0.70-1.30); EST Glomerular Filtration Rate 75 mL/min (>60); Est Glom Filt Rate - Afr Amer 90 mL/min (>60); Estimated Creatinine Clearance 76.98 ml/min; Glucose 105 mg/dL (74-106); Potassium 4.1 mmol/L (3.5-5.1); Sodium Level 136 mmol/L (136-145)
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
--- NOTE | 2023-09-30 09:59 | OP.PCM_ITS ---
Report of Operation Date of Procedure: 09/30/23 Pre-Operative Diagnosis: venous insufficiency with ulceration bilateral Post-Operative Diagnosis: same Surgery/Procedure Performed:: Venogram IVC IVUS IVC, bilateral common/external iliac veins Surgeon: Chema Payan Type of Anesthesia: Local and Sedation,Conscious Estimated Blood Loss (mL): 1 Description of Procedure: HPI: Patient is a 73-year-old male with recurrent bilateral lower extremity venous wounds and edematous and weeping lower extremities. He has minimal reflux was taken out for venogram to assess for central venous obstruction. Description of procedure: Upon obtaining informed consent and verification correct patient procedure site patient was taken to the Provider Network Analyst where he was positioned prepped and draped in you sterile fashion. Timeouts performed conscious sedation administered with Versed and fentanyl. Skin overlying the right common femoral vein is anesthetized 1% lidocaine the vessel accessed under ultrasound guidance with micropuncture needle wire. This then exchanged out for micropuncture sheath through which injection ilio caval venogram was performed. This revealed large caliber right common and external iliac veins with normal contrast transit into the vena cava. Through the micropuncture sheath Bentson wire was advanced the micro sheath exchanged out for a 11 Fijian sheath. Next skin overlying the left common femoral vein was anesthetized 1% lidocaine the vessel accessed under ultrasound guidance with micropuncture needle wire. This then exchanged for micropuncture sheath through which injection ilio caval venogram was performed which revealed large caliber left common and external iliac vein but with contrast that was with brisk transit into the vena cava. J- wire was then advanced via the micropuncture sheath and micropuncture sheath exchanged out for a 11 Fijian sheath. Intravascular sound probe was then advanced via the right femoral access sheath and recorded pullback of the IVC, right common iliac vein, right external iliac vein was performed. The ultrasound probe was then withdrawn and advanced via the left femoral access sheath and recorded pullback of the IVC, left common iliac vein, left external vein was performed. The inferior vena cava, bilateral common iliac veins, bilateral external neck veins are all normal with no obstruction or compression and no evidence of acute or chronic thrombus. All vessels were globally enlarged including the vena cava but no focal areas of abnormality. See no lesions that were appropriate for intervention the wires and catheters were withdrawn. A 2-0 silk U-stitch was then placed in the skin around the femoral access sites. These were then secured as the sheath withdrawn manage pressure held for 5 minutes after which satisfactory hemostasis was noted. Patient then awakened her sedation taken the recovery room for bedrest prior to discharge to home
== END 2023-09-30 11:30 | disposition home or self-care (01) ==
PROVIDERS: PCP Family Medicine; Referring Provider Surgery Trauma Surgery; Visit Provider Surgery Trauma Surgery
DX: I87.2 Venous insufficiency (chronic) (peripheral) (principal); L97.919 Non-pressure chronic ulcer of unspecified part of right lower leg with unspecified severity; L97.929 Non-pressure chronic ulcer of unspecified part of left lower leg with unspecified severity; I11.0 Hypertensive heart disease with heart failure; I50.32 Chronic diastolic (congestive) heart failure; E11.9 Type 2 diabetes mellitus without complications; E78.5 Hyperlipidemia, unspecified; I25.10 Atherosclerotic heart disease of native coronary artery without angina pectoris; Z79.82 Long term (current) use of aspirin; J45.909 Unspecified asthma, uncomplicated; E66.9 Obesity, unspecified; R60.0 Localized edema; M79.89 Other specified soft tissue disorders
CPT/HCPCS: 36010; 36415; 37252; 37253; 75825; 76937; 80048; 85027; 99152; 99153; C1753; C1769; C1894; J7040; Q9967

== ENCOUNTER → 2023-12-10 | Outpatient (CLI) | payer MEDICARE, SELFPAY ==
[2023-09-30 10:03] VITALS: BMI 33.3
[2023-12-10 08:04] LABS: ALB/GLOB Ratio 0.8 RATIO (0.9-2.4); AST(SGOT) 13 U/L (15-37); Alanine Aminotransfer ALT/SGPT 24 U/L (16-61); Albumin, Serum 3.2 g/dL (3.2-5.0); Alkaline Phosphatase 52 U/L (45-117); Anion Gap 3 (5-15); BUN 16 mg/dL (7-18); BUN/Creat Ratio 13.4 RATIO (10-20); Chloride 100 mmol/L (98-107); Cholesterol 194 mg/dL (200); Creatinine, Serum 1.19 mg/dL (0.70-1.30); EST Glomerular Filtration Rate 64 mL/min (>60); Est Glom Filt Rate - Afr Amer 77 mL/min (>60); Globulin 4.1 g/dL (2.2-4.2); Glucose 115 mg/dL (74-106); High Density Lipoprotein 45 mg/dL; Potassium 4.4 mmol/L (3.5-5.1); Protein, Total 7.3 g/dL (6.4-8.2); Sodium Level 136 mmol/L (136-145); Triglycerides 95 mg/dL; Very Low Density Lipoprotein 19 mg/dL (5-40)
[2023-12-10 08:11] LABS: BNP,B-Type NATRIURETIC PEPTIDE 109.5 pg/mL (0-100)
== END | disposition home or self-care (01) ==
LOC: LAB 07:01
PROVIDERS: PCP Family Medicine; Visit Provider Internal Medicine Cardiovascular Disease
DX: R06.02 Shortness of breath (principal); R06.09 Other forms of dyspnea; R60.0 Localized edema; I25.10 Atherosclerotic heart disease of native coronary artery without angina pectoris; I10 Essential (primary) hypertension; E78.5 Hyperlipidemia, unspecified
CPT/HCPCS: 36415; 80053; 80061; 83880

== ENCOUNTER → 2024-01-04 | Outpatient (CLI) | payer MEDICARE, SELFPAY ==
[2023-09-30 10:03] VITALS: BMI 33.3
--- NOTE | 2024-01-04 10:32 | STRESSREP ---
Stress Test Report Date: 01/04/2024 Procedure: Pharmacologic stress nuclear imaging study Indications: Dyspnea on exertion Consent: Per the patient Procedure: The patient underwent pharmacologic (Regadenoson 0.4mg ) evaluation with a peak heart rate of 104 beats per minute (70%predicted maximal heart rate) and a peak blood pressure of 148/72 mmHg. The baseline ECG demonstrated sinus rhythm with right bundle branch block. The peak pharmacologic ECG demonstrated no ischemic changes. There were no cardiac dysrhythmias pretest, during pharmacologic infusion, or recovery. There was no complaint of chest discomfort during pharmacologic infusion or recovery. The patient was injected with 13.6 millicuries of technetium 99m Cardiolite and subsequently rest SPECT Cardiolite nuclear imaging was obtained in the horizontal long, vertical long, and short axis views. The patient underwent pharmacologic (Regadenoson) evaluation. The patient was injected with 45.0 millicuries of technetium 99m Cardiolite and subsequently stress SPECT Cardiolite nuclear imaging was obtained in the horizontal long, vertical long, and short axis views. A gated Cardiolite study at peak stress was obtained. The examination was stopped secondary to completion of protocol. Rest and stress SPECT Cardiolite nuclear imaging status post realignment, normalization, and attenuation correction demonstrate moderate size apical and anterior reversible defect. There is end systolic thickening and brightening. The gated Cardiolite study demonstrates myocardial thickening and inward wall motion. The reported LVEF is 59%. Impression: 1. Pharmacologic (Regadenoson) evaluation 2. Peak pharmacologic ECG with no ischemic changes. 3. There were no cardiac dysrhythmias pretest, during pharmacologic infusion, or recovery. 5. Moderate size reversible defect of mild intensity of the anterior wall and apex, suggestive of ischemia. 6. The gated Cardiolite study reports an LVEF of 59%. This note was generated with [employer] software. It may contain incorrect words, spelling, and punctuation that were not noted in checking the note before signing.
== END | disposition home or self-care (01) ==
PROVIDERS: PCP Family Medicine; Referring Provider Internal Medicine Cardiovascular Disease; Visit Provider Internal Medicine Cardiovascular Disease
DX: R06.09 Other forms of dyspnea (principal); I25.10 Atherosclerotic heart disease of native coronary artery without angina pectoris; Z86.79 Personal history of other diseases of the circulatory system
CPT/HCPCS: 78452; 93017; A9500; A4216; J2785

== ENCOUNTER → 2024-01-14 | Outpatient (CLI) | payer MEDICARE, SELFPAY ==
[2023-09-30 10:03] VITALS: BMI 33.3
--- NOTE | 2024-01-14 07:42 | RAD_ITS ---
INDICATION: pre-op, C EXAMINATION/TECHNIQUE: X-RAY - XR Chest 2 Views COMPARISON: No relevant prior comparison study available FINDINGS: LINES/DEVICES: None. LUNGS: Linear subsegmental atelectasis or scarring in the left lung base. No focal infiltrate is seen. No evidence of pleural effusions. MEDIASTINUM AND CARDIOVASCULAR STRUCTURES: Cardiac silhouette not enlarged. Central airways and mediastinal contour are unremarkable. BONES AND SOFT TISSUES: Unremarkable. RAD/Chest PA and Lateral IMPRESSION: 1. Mild linear subsegmental atelectasis or scarring in the left lung base. 2. No focal infiltrate is seen. Electronically Signed: Steven Darden MD at 10:19 EDT ,
[2024-01-14 08:35] LABS: Absolute Lymphocyte Count 2.25 X10^3/uL (0.83-4.51); Absolute Neutrophil Count 5.2 X10^3/uL (2.0-7.7); Basophil# 0.04 X10^3/uL; Basophil% 0.4 % (0-1); Eosinophil# 0.23 X10^3/uL; Eosinophils% 2.6 % (0-5); Hematocrit 41.6 % (40-54); Hemoglobin 12.9 g/dL (13.0-16.5); Lymphocyte # 2.25 X10^3/ul (0.83-4.51); Lymphocyte % 25.3 % (19-41); Mean Corpuscular Hgb 26.5 pg (27.0-32.0); Mean Corpuscular Volume 85.4 fL (80-94); Mean Platelet Vol. 10.4 fl (6.2-12.0); Monocyte# 1.08 X10^3/uL; Monocyte% 12.1 % (0-10); NRBC Flagged by Analyzer 0 % (0-5); Neutrophil # 5.23 X10^3/uL (2.7-7.7); Neutrophil % 58.9 % (47-70); Platelet Count 269 K/mm3 (150-450); RBC Distribution Width CV 16.2 % (11.6-14.6); RBC Distribution Width SD 51.2 fl (35.1-43.9); Red Blood Count 4.87 M/mm3 (4.6-6.2); White Blood Count 8.9 K/mm3 (4.4-11.0)
[2024-01-14 09:05] LABS: Anion Gap 3 (5-15); BUN 19 mg/dL (7-18); BUN/Creat Ratio 15.7 RATIO (10-20); Calcium,Total 9.4 mg/dL (8.5-10.1); Chloride 94 mmol/L (98-107); Creatinine, Serum 1.21 mg/dL (0.70-1.30); EST Glomerular Filtration Rate 63 mL/min (>60); Est Glom Filt Rate - Afr Amer 76 mL/min (>60); Glucose 95 mg/dL (74-106); Potassium 3.9 mmol/L (3.5-5.1); Sodium Level 134 mmol/L (136-145)
== END | disposition home or self-care (01) ==
LOC: LAB 07:29
PROVIDERS: PCP Family Medicine; Referring Provider Nurse Practitioner Family; Visit Provider Nurse Practitioner Family
DX: I10 Essential (primary) hypertension (principal); E78.5 Hyperlipidemia, unspecified; R94.39 Abnormal result of other cardiovascular function study; Z95.5 Presence of coronary angioplasty implant and graft
CPT/HCPCS: 36415; 71046; 80048; 85025

== ENCOUNTER 2024-01-26 07:15 | Day surgery (SDC) | payer MEDICARE, SELFPAY ==
[2023-09-30 10:03] VITALS: BMI 33.3
--- NOTE | 2024-01-14 09:22 | PCM.HP.BLA ---
History and Physical Date of Admission: 01/21/24 This is a 73-year-old male who presents today for a cardiac catheterization following an abnormal stress test. He has a history of coronary artery disease with stent placement, hypertension, and hyperlipidemia. He lost his last June and has been trying to adjust to her absence. Denies any chest pains either at rest or with exertion. For the last 6 months or so, he has been having shortness of breath with exertion. Continues to have chronic lower extremity edema. Intake Vital Signs See EMR Allergies See EMR Medications See EMR Ejection fraction %: 55 to 59 [facility] Medical History Abnormal nuclear stress test Anxiety Asthma Atherosclerotic heart disease of [place] coronary artery without angina pectoris Carotid bruit Chronic diastolic (congestive) heart failure 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 disease Diabetes mellitus, type 2 Edema Essential hypertension History of chronic CHF History of ST elevation myocardial infarction (STEMI) (07/11/17) Hyperlipidemia Hypomagnesemia IBS (irritable bowel syndrome) Inappropriate sexual behavior Lower extremity edema Muscle cramps Neck pain 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.9) KRISTI (obstructive sleep apnea) Restless legs Shortness of breath Tinea cruris Varicose veins of both legs with edema Surgical History History of appendectomy History of cholecystectomy History of coronary artery stent placement (04/13/19) History of dental surgery History of exploratory laparotomy History of left heart catheterization (12/06/21) History of left knee surgery History of vasectomy Status post excision of lipoma Family History Mother Diabetes HypertensionFather HypotensionBrother Hypertension HLD (hyperlipidemia)Grandmother DiabetesGrandfather CVA (cerebral vascular accident) DiabetesBrother Cancer lung Social History Smoking Status: Never smoker second hand exposure: No alcohol intake: never substance use type: does not use caffeine: No seatbelt use: always do you feel safe at home: Yes ROS Const Const: Positive for daytime sleepiness and difficulty sleeping; Negative for fatigue, weakness, headache(s), frequent falls or excessive sweating Eyes Eyes: Negative for loss of peripheral vision, transient loss of vision, blurry vision, double vision or tunnel vision ENT ENT: Positive for balance problems; Negative for headache(s), dizziness or Nosebleed/epistaxis Cardio Chest Pain: Yes Frequency: other Character: tightness Onset: exercise Location: mid sternal Duration: brief Relieving: rest Palpitations: No Edema: Bilateral Muscle aches with walking: None Resp Respiratory: Positive for SOB with activity; Negative for SOB at rest, SOB orthopnea\SOB lying down, Cough or paroxysmal nocturnal dyspnea GI GI: Negative nausea, vomiting, heartburn or black,tarry stools : Positive for frequent nighttime urination/ nocturia; Negative for hematuria Musc Musc: Positive for muscle weakness, joint pain and balance problems; Negative for muscle aches/ myalgia Skin Skin: Negative non-healing lesions, rash or unusual bruising Neuro Neuro: Positive for lightheadedness (if getting up too fast); Negative for dizziness, near syncope, syncope, frequent falls, headache(s), weakness, blurry vision, double vision or lack of coordination Luigi Hematologic/Lymphatic: Negative for easy bleeding or easy bruising Endo Endo: Negative for fatigue, excessive sweating or increased thirst/drinking Psych Psych: Negative for anxiety or depression Allergy Allergy/Immunology: Negative for hives and Negative for rash Cardiology Exam Const Appearance: comfortable and no acute distress Nutritional Appearance: well nourished Neck Neck: no JVD Carotids: Negative bruit Chest Auscultation: Bilateral: Clear to Auscultation Cardio Rate: regular rate Rhythm: regular rhythm Heart sounds: S1 normal and S2 normal Neuro General: patient alert, patient awake and patient oriented x3 Extremities Lower Extremity Edema: +2: Bilateral Bilateral venous varicosities noted Supplemental Info Supplemental Information Echocardiogram 04/01/2023: Interpretation Summary The left ventricular ejection fraction is 55 %. Calcified aortic root. The study was technically difficult. CAROTID DUPLEX ULTRASOUND 09/19/22: Interpretation Summary Mild (<50%) stenosis right extracranial internal carotid. Mild (<50%) stenosis left extracranial internal carotid. Patent and antegrade vertebrals bilaterally. Cardiac Catheterization 12/06/2021: CONCLUSIONS Previously placed stents in the left anterior descending artery is patent with mild to moderate in-stent stenosis.? Distal vessels are noted to be small. Mild disease noted in the right coronary artery and left circumflex artery. RECOMMENDATIONS Medical therapy CORONARY ANGIOGRAPHY DOMINANCE:? Right Dominant LEFT HEART ASSESSMENT Left Ventricular Ejection Fraction: by LV Gram 50 % Anterior Hypokinesis - Mild Normal Left Ventricular systolic function LEFT MAIN: Angiographically normal LEFT ANTERIOR DESCENDING ARTERY: MID LAD: Moderate luminal irregularities up to 50% DISTAL LAD: Mild luminal irregularities CIRCUMFLEX ARTERY: Mild luminal irregularities RIGHT CORONARY ARTERY: Mild luminal irregularities less than 30% Heart catheterization from 04/13/2019: CONCLUSIONS The patient has normal pulmonary hemodynamics. Successful PTCA/ALEXANDRO mid LAD with a 2.25 x 38 Promus Synergy, post dilated with various atmospheres with a 3.0 x 8 NC balloon throughout in order to sculpt the stent for proper apposition; 75%-->0%, no dissection. RECOMMENDATIONS Highly recommend quitting all tobacco products Follow up with primary transition mgr Risk factor modification ASA Indefinitley Plavix for at least 12 months Routine post interventional care Refer for Outpatient Cardiac Rehab Manual sheath removal per protocol Follow up with Dr. Etienne Successful Mynx Control closure of RFA. CORONARY ANGIOGRAPHY DOMINANCE: Right Dominant LEFT HEART ASSESSMENT Left Ventricular Ejection Fraction: by LV Gram 45 % LVEDP: 18 mmHg Anterior Hypokinesis - Moderate RIGHT HEART ASSESSMENT Thermal CO: 5.14 Thermal CI: 2.41 [place] CO: 5.64 Johnathon CI: 2.65 PW: 5/5 4 PA: 21/0 13 RV: 28/1 5 RA: 3/1 2 PVR: 140 SVR: 1370 Mitral Valve Area: >3.50 Mitral Valve index: 1.64 Mitral Valve Mean Gradient: 9.4 LEFT MAIN: Angiographically normal LEFT ANTERIOR DESCENDING ARTERY: PROX LAD: Previously placed stent is patent MID LAD: 75 % Stenosis CIRCUMFLEX ARTERY: Mild luminal irregularities less than 30% Stress test from 11/21/2021: Conclusion: Pharmacologic myocardial perfusion stress test with evidence of previous apical infarct. Mild mid anterior ischemia noted. Preserved ejection fraction. Stress echocardiogram from 04/04/2019: Interpretation Summary The estimated ejection fraction is 65 %. Normal, adequate, treadmill echocardiogram. Negative for ischemia by EKG and echocardiographic criteria. No anginal symptoms noted. Below average exercise capacity for age. The patient appeared to have baseline anterior apical hypokinesis, which contracted normally at peak exercise. Rare PVCs noted. Appropriate blood pressure response to exercise. Final LVEF of 70%. Test terminated due to dyspnea which may be an anginal equivalent. The study was technically difficult. Contrast injection was performed. Echocardiogram 03/2021: Segmental dysfunction with preserved ejection fraction (see wall motion). The estimated ejection fraction is 55 %. Trivial mitral valve insufficiency. Trivial tricuspid valve insufficiency. Mild focal aortic valve thickening. Unable to estimate RV systolic pressure/pulmonary artery pressure due to technically difficult study. No evidence for diastolic dysfunction. EXTREMITY ARTERIAL STUDY 12/30/21: Interpretation Summary Triphasic Doppler waveforms are noted at ankle level bilaterally. Pulse-volume recordings appear satisfactory at all levels bilaterally, including low thigh, calf, ankle, and digital levels. Resting ankle-brachial indices are normal bilaterally. Digital-brachial indices are normal bilaterally. The patient was exercised on a treadmill for 4 minutes at 1.9 MPH and a 5% incline, following which ankle pressures augmented bilaterally, a normal physiological response. There is no evidence of significant arterial occlusive disease in the lower extremities bilaterally. Assessment and Plan Assessment and Plan (1) 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 disease: Status: Chronic Plan: Status post percutaneous intervention to the LAD. Mild to moderate restenotic disease noted on last coronary angiography. Patient complains of dyspnea on exertion. His most recent stress test from 01/04/2024 demonstrated moderate size reversible defect of mild intensity of the anterior wall and apex, suggestive of ischemia. Would like to proceed with a cardiac catheterization to further assess this. Depending on results, further recommendations will be made. (2) History of coronary artery stent placement: Status: Chronic Comment: PCI-ALEXANDRO-Mid LAD w/ 3.0 x 24 mm Promus Stent 07/11/2017; PCI-ALEXANDRO-Mid LAD ALEXANDRO 2.25 x 38 mm 04/13/2019 Plan: See #1 above.
[2024-01-20 12:44] VITALS: BMI 36.5
--- NOTE | 2024-01-26 09:40 | PCM.DC ---
Discharge Instructions Diet Discharge Diet: 1999 Calorie Control Diet Activity Discharge Activity: Return to Normal Activity Dressing / Incision Call your doctor if your incision/area has: Continuous Slow Oozing, Sudden Increased Bleeding, Increased Pain/ Swelling, Increased Redness, Foul Smelling Discharge and Swelling at the incision site Call your doctor if you observe: Fever of 101 or Higher, Coldness, Increased Pain, Numbness or Tingling and Change in Color Follow Up Care Please Follow Up With: Alex Crooks MD When: 2 weeks Test Results: Test results from this visit will be discussed in further detail at your follow-up appointment, if applicable. Discharge Plan Admission Attending Provider: Alex Crooks Primary Care Provider: Maya Pradhan Instructions Print Language: [place]an Discharge Orders/Prescriptions Prescriptions: Continued buspirone 10 mg tablet 20 mg PO BID vitamin B complex Tablet 1 tab PO DAILY nitroglycerin 0.4 mg tablet, sublingual 0.4 mg SUBLINGUAL Q5M PRN (Reason: Angina pain) Qty: 25 3RF pravastatin 40 mg tablet 40 mg PO DAILY insulin NPH isoph U-100 human 100 unit/mL suspension See Rx Instructions SC BID Rx Instructions: 56 units in am, 44 units in hs; omeprazole 40 mg capsule,delayed release(DR/EC) 40 mg PO BID glyburide 1.25 mg tablet 1.25 mg PO BID carvedilol 25 mg tablet 25 mg PO BID Qty: 180 3RF Rx Instructions: must administer with a meal/food clotrimazole-betamethasone 1-0.05 % cream 1 applic topical BID 28 Days Qty: 45 1RF montelukast 10 MG tablet 10 mg PO QHS pramipexole 1 mg tablet 2 mg PO QHS Patient Comments: 1 mg PO 2 tablets by mouth at bedtime Rx Instructions: 1 mg PO 2 tablets by mouth at bedtime fluticasone propionate 50 mcg/actuation spray,suspension 1 spray INTRANASAL DAILY PRN (Reason: nasal spray) alprazolam 0.25 mg tablet 0.25 mg PO DAILY PRN (Reason: anxiety) Patient Comments: for anxiety acetaminophen 325 MG tablet 325 - 650 mg PO Q6H PRN PRN (Reason: Pain) 0RF aspirin 81 MG tablet 81 mg PO DAILY@0800 Qty: 30 0RF magnesium oxide 400 MG tablet 400 mg PO DAILY coenzyme Q10 100 MG capsule 100 mg PO DAILY cholecalciferol (vitamin D3) 50 mcg (2,000 unit) capsule 2,000 unit PO DAILY isosorbide mononitrate 30 mg tablet extended release 24 hr 30 mg PO DAILY Qty: 90 3RF furosemide 40 mg tablet See Rx Instructions PO .COMPLEX Qty: 270 3RF Rx Instructions: 80mg in AM and 40mg in PM; clopidogrel 75 mg tablet 75 mg PO DAILY Qty: 90 3RF fluticasone propion-salmeterol [Wixela Inhub] 500-50 mcg/dose blister with device 1 inh inhalation BID Qty: 60 3RF albuterol sulfate [Ventolin HFA] 90 mcg/actuation HFA aerosol inhaler 2 puff INHALATION Q4H PRN (Reason: shortness of breath or wheezing) Qty: 18 6RF Held metformin 1,000 MG tablet 1,000 mg PO BIDCM Hold Instructions: Resume on 01/29/24. Referrals / Follow Up: Maya Pradhan DO [Primary Care Provider] - Disposition Disposition (needs filled in before D/C Order can be placed): Home, Self Care
--- NOTE | 2024-01-26 09:45 | EKG12_ITS ---
Test Reason : POST PCI Blood Pressure : / mmHG Vent. Rate : 073 BPM Atrial Rate : 073 BPM P-R Int : 182 ms QRS Dur : 126 ms QT Int : 404 ms P-R-T Axes : 041 -48 011 degrees QTc Int : 445 ms Normal sinus rhythm Left axis deviation Right bundle branch block Septal infarct , age undetermined Inferior infarct (cited on or before 22-JUL-2023) Abnormal ECG Confirmed by Goyo Burleson ([id number]), steel construction worker JEYSON CAI ([id number]) on 02/01/2024 12:54:39 PM Referred By: Alex Crooks Confirmed By:Goyo Burleson
--- NOTE | 2024-01-26 09:57 | CL.I_ITS ---
Patient Name: BLANCA GILL Study Date: 01/26/2024 Performing: Alex Crokos MD Ht: 68 inches 172.72 cm : 1950 Wt: 240 lbs 108.86 kg Age: 73 Gender: male BSA: 2.21 PROCEDURE(S) PERFORMED DC02-(56362)LHC/COR IC12-(84297/[id number])ALEXANDRO W/WO PTCA, SINGLE CORONARY ARTERY CLINICAL PROFILE AND CO-MORBIDITIES Indications: Stable Known CAD Heart Failure: None Stress/Imaging Stress Test w/SPECT MPI: Yes Result: Positive Intermediate Risk Stress Test with SPECT MPI: Positive Intermediate Risk CAD Presentations: Other: Dyspnea on exertion CONCLUSIONS 50% ISR Mid LAD, 70% distal Mid LAD 40% Prox LCX Successful ALEXANDRO Mid LAD using Mely [place] 2.25x12 mm RECOMMENDATIONS ASA Indefinitley Plavix for at least 12 months DESCRIPTION OF PROCEDURE The patient arrived to the procedure lab. The risks and benefits of the procedure as well as a full description of our services here and lack of surgical backup were fully explained to the patient and/or their significant other prior to the catheterization. The Timeout was completed, verifying the correct patient and procedure. The patient's procedural site was prepped and draped in the usual fashion. Local anesthetic was given subcutaneously to right radial region with Lidocaine 2%. Using a modified Seldinger technique, arterial access was obtained via the right radial artery, a 6Fr sheath was inserted.. Left Coronary Artery selective angiography was performed in multiple views using a 5 Fr. 4.0 [place] catheter. Right Coronary Artery selective angiography was then performed in multiple views using a 5 Fr. 4.0 [place] catheterThe images were reviewed and options discussed. A decision was then made to proceed with an Intervention, IVUS or other adjunct procedure. XB 3.0 Guide catheter was inserted and engaged into the LCA. Runthrough Guide wire was advanced to the LAD. 2.25 x 12 [place] Drug Eluting stent was advanced across the lesion in the LAD, mid. Angiogram performed post stent deployment. 2.5 x 12 NC Emerge Balloon catheter was inserted post stent. Angiogram performed post balloon dilatation. The arterial sheath was pulled and a TR Band was applied for hemostasis. 10cc air CORONARY ANGIOGRAPHY DOMINANCE: Right Dominant LEFT MAIN: Tubular 40% Distal lesion in LMCA LEFT ANTERIOR DESCENDING ARTERY: LAD: In-Stent Restenosis 50% Proximal lesion in LAD Tubular 70% Mid lesion in LAD RIGHT CORONARY ARTERY: RCA: Tubular 30% Proximal lesion in RCA Calcified 30% Mid lesion in RCA INTERVENTION INFORMATION LESION SITE: LAD (Mid) Lesion Complexity: Non-High/Non-C, lesion length: 10 mm Pre Stenosis: 70 % Pre intervention JORDANA flow: 3 PROCEDURE: Drug Eluting Stent with post dilatation Post Stenosis: 0 % Post intervention JORDANA flow: 3 Lesion Devices: Cordis 6 Fr XB3.0 100cm Guide Catheter [place]um[place] .014 180cm Runthrough Extra Floppy straight Medtronic 2.25 x 12 MELY FRONTIER ALEXANDRO [employer] [employer] [place] EMERGE MR 2.50x12 BALLOON COMPLICATIONS No Complications PROCEDURE MEDICATIONS Fentanyl 50 mcg IV Versed 1 mg IV Oxygen: 2 L/min via nasal cannula Heparin given IA 01/26/2024 08:51:01 Heparin 7000 unit(s) IV 01/26/2024 09:13:36 Heparin 5000 unit(s) IV 01/26/2024 09:37:17 Nitro 200 mcg IC 01/26/2024 09:23:40 Plavix 300 mg PO 01/26/2024 09:30:44 Verapamil 2.5mg, Ntg 200mcgs, 2000 units of Heparin given IA 01/26/2024 08:51:01 IV Bolus: .9 NaCl 250 ml total 01/26/2024 09:02:54 SUMMARY OF HEMODYNAMIC DATA Time AIR REST ECG 07:42:09 AO 122/74 (97) SA 09:06:08 AIR REST 09:49:20 Signed By Alex Crooks MD On 01/26/2024 09:56:36 Alex Crooks MD
--- NOTE | 2024-01-26 10:06 | CRPHASE1 ---
Patient Communication Patient Information Former Patient:: Phase I and Phase II PHII Cardiac Rehab Discussed with Patient:: Yes Guide to Cardiac Rehab Given to Patient:: Yes Cardiac Rehab Facility Choice List Given to Patient:: Yes Communication to Cardiac Rehab Choice Program [facility] CR PHII:: Communication Given to CR and Refer to [facility] Choice Program Other:: Communication Given to CR Tax Associate:: Alex Crooks Refer Phase II Cardiac Rehab:: Yes Post Discharge Choice Letter Given to Patient:: Yes Guide to Cardiac Rehab Mailed to Patient by Staff:: Yes PHII Cardiac Rehab Referral:: [facility] Phase I Charge:: Level I - Education Medical/Surgical History Medical History [place]:: Yes Angina:: Yes CAD:: Yes Congestive Heart Failure: Diabetes:: Yes Hypertension:: Yes Dyslipidemia:: Yes CVA/TIA: PVD:: Yes Anxiety:: Yes Surgical History PTCA:: Yes Ambulation Ambulation Notes:: can walk short distance without shortness of breath Cardiac Rehabilitation Info Program Information Cardiac Rehabilitation Program Information: Cardiac Rehab The cardiac rehab team at [facility] consists of highly skilled exercise physiologists, nurses, respiratory therapists and physicians working together with you. Our purpose is to help you have a full recovery and achieve the goals you set for yourself. Over the years many of our patients have returned to activities they assumed they would never do again! We can help restore your confidence and motivation to make lifestyle changes that can have a significant impact on your health and quality of life! We can help answer questions and concerns you may have about exercise, lifestyle, medications, diet, stress and anxiety which are common following a hospitalization. WE monitor ECG and vital signs during exercise and discuss your progress with you and report to your physician(s). Cardiac Rehab is proven to help reduce readmissions, improve functional capacity and lower recurrence of problems with your heart. Our Cardiac Rehab program is Certified by the [place] [employer] Pulmonary [employer] (AACVPR) and Accredited by the [place] through our [facility]. You can contact us at . We invite you to call us with your questions or to get started in our program. If you have other questions or concerns be sure to ask your physician/provider during your follow-up visit. WE look forward to seeing you!
--- NOTE | 2024-01-26 10:08 | CRPH1.INSTRU ---
General Education Discussed with Patient CAD and cardiac anatomy and function:: Patient communicates acknowledgment, Family communicates acknowledgment, Patient returns demonstration and Family returns demonstration Explanation of diagnoses and procedures:: Patient communicates acknowledgment, Family communicates acknowledgment, Patient returns demonstration and Family returns demonstration Sign/Symptoms of MD:: Patient communicates acknowledgment, Family communicates acknowledgment, Patient returns demonstration and Family returns demonstration Antiplatelet therapy: Patient communicates acknowledgment, Family communicates acknowledgment, Patient returns demonstration and Family returns demonstration Proper use of NTG-SL: Patient communicates acknowledgment, Family communicates acknowledgment, Patient returns demonstration and Family returns demonstration Emergency procedures and activation of EMS: Patient communicates acknowledgment, Family communicates acknowledgment, Patient returns demonstration and Family returns demonstration Compliance of all prescribed medications: Patient communicates acknowledgment, Family communicates acknowledgment, Patient returns demonstration and Family returns demonstration Smoking Risk Factors Patient Nicotine/Smoking Risk Factors Are:: Non-smoker Recommendations Recommendations Include:: Second-hand smoke recommendation Response Code Nicotine/Smoking Response Code:: Patient communicates acknowledgment, Family communicates acknowledgment and Patient returns demonstration Dyslipidemia Risk Factors Patient Dyslipidemia Risk Factors Are:: Total Cholesterol, Triglycerides, HDL and LDL Recommendations Recommendations Include:: Therapeutic Lifestyle Change dietary guidelines Response Code Dyslipidemia Response Code:: Patient communicates acknowledgment, Family communicates acknowledgment, Patient returns demonstration and Family returns demonstration Overweight/Obesity Risk Factors Patient Overweight/Obesity Risk Factors Are:: Overweight = 26-29 and Obesity - > or = 30 (36.5) Recommendations Recommendations Include:: Weight loss of 5-10%, Reduced calorie diet and Exercise 5-7 times/week Response Code Overweight/Obesity:: Patient communicates acknowledgment, Family communicates acknowledgment, Patient returns demonstration and Family returns demonstration Hypertension Risk Factors Patient Hypertension Risk Factors Are:: No documented hx of HTN Recommendations Recommendations Include:: Maintain BP <130/85 and Decrease/maintain normal body weight Response Code Hypertension:: Patient communicates acknowledgment, Family communicates acknowledgment, Patient returns demonstration and Family returns demonstration Heart Disease Risk Factors Patient Heart Disease Risk Factors Are:: Family history of heart disease < 65 years old and Previous cardiac event Recommendations Recommendations Include:: Educated family members of their risk and Educated family members of importance of prevention of heart disease Response Code Heart Disease Response Code:: Patient communicates acknowledgment, Family communicates acknowledgment, Patient returns demonstration and Family returns demonstration Diabetes Risk Factors Patient Diabetes Risk Factors Are:: Elevated blood sugars Date of HgbA1c:: 07/22/23 Recommendations Recommendations Include:: Maintain fasting blood sugars 70-110 md/dL and Maintain HgbA1c of 6% or less Response Code Diabetes:: Patient communicates acknowledgment, Family communicates acknowledgment, Patient returns demonstration and Family returns demonstration Metabolic Syndrome Risk Factors Patient Metabolic Syndrome Risk Factors Are [3 of 5]:: Fasting blood sugar > 100 mg/dL, Waist circumference > 35 [female] or 40 [male] and Hypertension Recommendations Recommendations Include:: Reinforce compliance to risk factor modifications, Patient is diabetic and Encouraged follow-up with Primary Care Physician Response Code Metabolic Syndrome Response Code:: Patient communicates acknowledgment, Family communicates acknowledgment, Patient returns demonstration and Family returns demonstration Sedentary Risk Factors Patient Sedentary Risk Factors Are:: Lack of regular exercise Recommendations Recommendations Include:: Discussed home walking program and Monitored Outpatient Cardiac Rehab Response Code Sedentary Response Code:: Patient communicates acknowledgment, Family communicates acknowledgment, Patient returns demonstration and Family returns demonstration Stress Risk Factors Patient Stress Risk Factors Are:: Patient denies stress as a risk factor Recommendations Recommendations Include:: Identification of stressors, and assessment of coping skills and Stress management techniques Response Code Stress Response Code:: Patient communicates acknowledgment, Family communicates acknowledgment, Patient returns demonstration and Family returns demonstration
[2024-01-26 14:46] LABS: ACT Activated Clotting Time 214 sec (74-137)
== END 2024-01-26 15:38 | disposition home or self-care (01) ==
PROVIDERS: PCP Family Medicine; Referring Provider Internal Medicine Cardiovascular Disease; Visit Provider Internal Medicine Cardiovascular Disease
DX: T82.855A Stenosis of coronary artery stent, initial encounter (principal); I11.0 Hypertensive heart disease with heart failure; I50.32 Chronic diastolic (congestive) heart failure; E11.9 Type 2 diabetes mellitus without complications; I25.10 Atherosclerotic heart disease of native coronary artery without angina pectoris; E78.5 Hyperlipidemia, unspecified; Z95.5 Presence of coronary angioplasty implant and graft; J45.909 Unspecified asthma, uncomplicated; I25.84 Coronary atherosclerosis due to calcified coronary lesion; Y71.2 Prosthetic and other implants, materials and accessory cardiovascular devices associated with adverse incidents
CPT/HCPCS: 85347; 92928; 93005; 93454; 99152; 99153; C1769; J7040; Q9967; C1725; C1874; C1887; C9600

== ENCOUNTER → 2024-02-04 | Outpatient (CLI) | payer MEDICARE, SELFPAY ==
[2023-09-30 10:03] VITALS: BMI 33.3
--- NOTE | 2024-02-04 08:59 | CR.ITP_ITS ---
<Statement entered by Higinio Mcbride MD - 02/08/24 21:55> I did not see or examine this patient. Routed to me in error. Diagnosis General Information Admitting Diagnosis: S/P PCI W/coronary stenting Secondary Diagnosis: Previous Coronary stenting, DM II, HTN, HLD STEMI in 2017 Personal Learning Style:: Audio/Visual and Written Barriers to Learning: Vision Impairment Stage of change r/t lifestyle modifications:: Action Gave educational material for:: Treating Heart Disease, How The Heart Works, What it means to have Heart Disease, How Coronary Artery Disease is Diagnosed, Heart Procedures, What Heart Medications Do, Risk Factors & Modifications, Living an Active Life, Nutrition, Emotions & Heart Disease, Stress Management & Relaxation and Sleep Disorders & Heart Disease Education/Goals Individual Counseling: Initial Assessment: Abnormal Cholesterol Levels, High Blood Pressure, Overweight/Obesity, Diabetes, B. Waist Circumference >35/Females >40/Males, Hypertension and Sedentary Lifestyle Cardiac Rehabilitation Goals Personal Goals: Initial Assessment: Improve management of stress and emotions, Improve energy level, Participate in home exercise program, Get back to work, or to resume activities faster, Improve knowledge of cardiac disease, Improve muscle strength and endurance, Improve diet and eating habits (eat healthier) and Control risk factors (learn risk factor modification) Scale for measuring improvement of personal goals Diagnosis & Disease Process Outcomes/Goals: Pt IDs own risk factors & lifestyle modifications by Session 10, Verbalizes symptoms of angina & response by session 3. and Pt independently manages Plan/Interventions: Assist Pt to ID & engage in lifestyle modification to reduce CVD risk, Instruct on individual risk factors, Review symptoms of angina & emergency actions and Review secondary diagnosis & identify educational needs. Safety Referral to Physical Therapy: No Referral to [facility] Case Management: No Fall Risk Assessed:: Yes Assistive Devices:: Walker (only if has to walk a long distance) Exercise - Initial Assessment Visit Date of Eval: 02/04/24 Session #:: 0 (Pre-program evaluation) Mets: Pre-: >5 METS for 30 minutes by discharge Stress Test Date: 01/04/24 Protocol:: infusion Resting HR (bpm):: 81 Maximum HR (bpm):: 91 Blood Pressure: 130/70 Maximum Blood Pressure: 148/72 MET LEVEL:: 1.0 EKG: Normal Sinus Rhythm Physician Prescribed Exercise Modalities: Treadmill, Rower, Airdyne, NuStep, SciFit and Lateral Carbon Furnace Operator Helper Frequency: 3x/week for 12 weeks [36 sessions] Intensity: 60-80% of age predicted maximum heart rate reserve Duration: 30 - 45 minutes Current METSs:: 2.0 Target Heart Rate:: 96-112 Resting Blood Pressure: 138/70 EKG Type: NSR Outcomes & Goals Goals:: Verbalizes understanding of THR, RPE & goal METS by session 6, Documents in home exercise log/reports 30 min aerobic 5 day/wk by DC and Demonstrates accurate pulse taking by DC Intervention & Plan Exercise Program Goals: Instruct on personal THR & RPE, Instruct on MET level & personal MET goal, Show patient to take own pulse /validate performance until accurate and Instruct on home exercise Physical Activity Home Exercise Physical Activity - Home Exercise: Safe Exercise, Warm-up, Self-monitoring, Cool-Down, Home Exercise > 30 min Daily and Sitting Time <3 hours/daily Outcomes & Goals Outcomes/Goals: Demonstrates correct Warm-up/exercise Cool-Down (S3) if = 2.5 METs, Verbalizes symptoms of exercise intolerance by Session 3 (S3) and Demonstrate safe equipment use (S3) & follows exercise prescrition (6) Intervention & Plan Plan/Intervention: Instruct warm-up & cool-down if exercising at > 2 METs, Instruct on symptoms of exercise intolerance & actions to take, Instruct & monitor on saf and Assess intial functional capacity & safety risk Nutrition - Initial Assessment Program Goals Nutrition Program Goals Patient has diagnosis of Hyperlipidemia (ICD E78)?: Yes Visit Date of Eval: 02/04/24 Session #:: 0 (Pre-program evaluation) Cholesterol/Lipids (Other Core Measures) Triglycerides (mg/dL): 95 Total Cholesterol (mg/dL): 194 LDL Cholesterol (mg/dL): 130 HDL Cholesterol (mg/dL): 45 Lipid Medication: Pravastatin Determine presence & major risk factors that modify LDL goal: Hypertension or hypertensive medication and Age men > 45 years; women >/= 55 years Outcomes/Goals: Pt IDs own risk factors & lifestyle modifications by Session 10, Verbalizes symptoms of angina & response by session 3. and Pt independently manages Intervention/Plan: Instruct on personal lipid levels & lipid goals/NCEP guidelines and Instruct on cholesterol Referral to dietitian:: Yes Diabetes (Other Core Measures) Diabetes Type: Diagnosis Type II ICD-10 E11 Fasting blood glucose:: 115 Hgb A1C (4.2 - 6.3): 8.2 Insulin dependent injection/pump?: Yes (Insulin-NPH, Glyburide 1.25mg BID) Non-Insulin Dependent?: Yes (Metformin 1,000mg BID) Do you monitor your blood sugar at home?: Yes Referral to Diabetic Clinic:: Yes Outcomes/Goals:: Able to state symptoms of, Able to state and Able to state Intervention/Plan:: Instruct on, Refer to and Instruct on Weight Mgt (Other Care) Not Applicable: No Height: 5 ft 8 in Weight:: 240 lb BMI: 36.5 Diagnosis Overweight/Obesity BMI> 30% ICD-10 E66: Yes Diagnosis High BMI/Morbid Obesity BMI> 35% ICD-10 Z68: Yes Outcomes/Goals: Pt sets, maintains & shows weight loss goal & trend during rehab Intervention/Plan: Instruct on ideal BMI & set weight loss goal w/patient, Assist pt to ID & incorporate diet changes for weight loss by S9, Refer to Structured Weight Loss program as appropriate and Encourage goal of using 250- 300dcal per session for weight loss Healthy Eating Habits Will attend diet classes:: Yes Outcomes/Goals:: Consume diet rich in vegs,fruits,whole grain/high fiber,fish,lean meat and Limit sat/trans fats,cholesterol & added salts & sugars Intervention/Plan:: Assess current eating habits Education Gave educational materials for:: Signs & symptoms of hypoglycemia, Signs & symptoms of hyperglycemia, Relate diabetes to coronary artery disease and Healthy eating Core - Initial Assessment Visit Date of Eval: 02/04/24 Session #:: 0 (Pre-program evaluation) Medication Compliance Preventative Medication(s):: Aspirin, Clopidogrel/P2Y12 inhibit, Statin/lipid, Beta yanna and ARB (Angiotensi Rcap) H/O mental health issues: depression, anxiety, or addiction?: Yes Doesn?t believe in the benefits of treatment?: No Believes medications are unnecessary or harmful?: No Has a concern about medication side effects?: No Expresses concern over the cost of medications?: No Outcomes/Goals: Verbalizes medications,desired effect & common side effects @ DC, Pt self-reports following medication regimen and Keeps card in wallet w/medications listed by DC Interventions/plans: Instruct on medication effects & side effects, Review medication list w/patient every two weeks and Instruct importance of taking meds as ordered & assist problem solving Tobacco Use Tobacco Use: Non-smoker Hypertension Hypertension Diagnosis:: Hypertension ICD-10 I10 Resting Blood Pressure:: 138/70 [employer] Hypertension Guidelines Outcomes/Goals: Able to verbalize/achieve optimal blood pressure <130/80 and Incorporates diet changes & exercise for blood pressure control by DC Interventions/plan: Instruct on optimal blood pressure, hypertension & medicat ions and Instruct on effects of sodium, alcohol, stress, exercise &hypertension Tobacco Cessation Referral Smoking Cessation Referral:: No Individual Education/Counseling:: No Education Schedule Given:: Yes Psychosocial - Initial Assess VIsit Date of Eval: 02/04/24 Session #:: 0 (Pre-program evaluation) Not Applicable: No History of previous Mental disease:: Yes History of Emotional Disorders: Anxious and Depression Target Goals Target Goals Psychosocial Test Tool Used:: [employer] QOL Cardiac and PHQ-9 Questionnaire phq-9 Severity Referral to Behavioral Health PS - Interventions: Yes: Attend Stress Management Classes and No: Referral to Behavioral Health if PHQ-9 score >9:, No: Referral to [facility] and No: Referral to Physician if PHQ-9 if score is 5-9: Outcomes/Goals: See list Psychosocial Outcomes/Goals:: ID's personal stressors & 2 strategies to manage stress by discharge Intervention/Plan: See List Interventions/Plan:: Assess stressors,coping strategies & signs of derpression on admission, Instruct/assist pt to develop coping & personal stress Mgt strategies, Instruct patient to recognize signs & symptoms of depression and Instruct patient to recog Patient Health Questionnaire PHQ-9 Screening Initial Assessment: 1. Little interest or pleasure in doing things: Several days 2. Feeling down, depressed, or hopeless: Several days 3. Trouble falling or staying asleep, or sleeping too much: Several days 4. Feeling tired or having little energy: More than half the days 5. Poor appetite or overeating: Several days 6. Feeling bad about yourself -- or that you are a failure or have let yourself or your family down: Several days 7. Trouble concentrating on things, such as reading the newspaper or watching television: Several days 8. Moving or speaking so slowly that other people could have noticed. Or the opposite - being so fidgety or restless that you have been moving around a lot more than usual: Not at all 9. Thoughts that you would be better off , or of hurting yourself in some way: Not at all How difficult have these problems made it for you to do your work, take care of things at home, or get along with other people?: Very difficult Total Score: 8 HAILY-Q SV Test Statements CAD is a disease of the arteries in the heart: True Examples of risk factors for heart disease: True Angina is chest pain or discomfort: True The benefits of resistance training include: I Don't Know Eating more meat and dairy products: I Don't Know Anti-platelet medications such as aspirin are important: True The only effective way to manage stress: False An exercise warm-up slowly increases heart rate: I Don't Know Prepared, processed foods usually have high sodium: True Depression is common after a heart attack: I Don't Know The statin medications lower cholesterol: True To control blood pressure, lower the amount of sodium: True If someone gets chest discomfort during walking: False Transfats are partially hydrogenated vegetable oils: I Don't Know Sleep apnea that is not treated increases the risk: False To control cholesterol, one should become a vegetarian: False Someone knows if he/she is exercising at the right level: I Don't Know Diabetes cannot be prevented with exercise & health eating: False Stress is a large risk for heart attack: True A diet that can help lower blood pressure is rich in: True Total Score Total Correct Responses: 13 Self-Efficacy 6-Item Scale Initial Assessment: We would like to know how confident you are in doing certain activities. Please select your confidence level for: Fatigue Select Number: 2 Physical Discomfort or Pain Select Number: 2 Emotional Distress Select Number: 4 Other Symptoms or Health Problems Select Number: 4 Different Tasks and Activities Select Number: 5 Medication Select Number: 7 Total Score:: 4 Nutrition Survey Nutrition Survey Instructions Scoring Instructions Nutrition Survey Initial: Have you lost >10 lbs over the past 2 months without trying?: No Are you following a special diet at home for diabetes, low fat, or low salt?: Yes Are you interested in meeting with a dietitian for help understanding your diet?: Yes Do you eat less than 3 meals a day?: No Do you eat fatty meats (brasher, sausage, ribs, etc), fried foods, desserts, large amounts of salad dressings, margarine, butter, or cheese most days?: Yes Do you have food allergies? [Enter types in comment field]: No Do you eat in restaurants more than 3 times a week?: Yes Do you season food with salt, seasoning salt, or garlic salt?: No Do you used canned, boxed, frozen meals, or soups, seasoning packets?: No Total Score:: 4 Exercise - 30-day Assessment Stress Test Maximum Blood Pressure: 148/72 Exercise - Final/Discharge Physician Prescribed Exercise Modalities: Treadmill, Rower, Airdyne, NuStep, SciFit and Lateral Carbon Furnace Operator Helper Frequency: 3x/week for 12 weeks [36 sessions] Intensity: 60-80% of age predicted maximum heart rate reserve Current METSs:: 2.0 Target Heart Rate:: 96-112 Nutrition - 30-Day Assessment Weight Mgt (Other Care) Height: 5 ft 8 in Weight:: 240 lb BMI: 36.5 Nutrition - 60-Day Assessment Weight Mgt (Other Care) Height: 5 ft 8 in Weight:: 240 lb BMI: 36.5 Core - 30-Day Assessment Visit Session #:: 0 (Pre-program evaluation) Core - Final Assessment Hypertension Resting Blood Pressure:: 138/70 [employer] Hypertension Guidelines Core - 60-Day Assessment Hypertension Resting Blood Pressure:: 138/70 [employer] Hypertension Guidelines Psychosocial - 30-Day Assess Target Goals Target Goals Referral to Behavioral Health PS - Interventions: Yes: Attend Stress Management Classes and No: Referral to Behavioral Health if PHQ-9 score >9:, No: Referral to [facility] and No: Referral to Physician if PHQ-9 if score is 5-9: Psychosocial - 60-Day Assess Target Goals Target Goals Referral to Behavioral Health PS - Interventions: Yes: Attend Stress Management Classes and No: Referral to Behavioral Health if PHQ-9 score >9:, No: Referral to [facility] and No: Referral to Physician if PHQ-9 if score is 5-9: Psychosocial - 90-Day Assess Target Goals Target Goals Referral to Behavioral Health PS - Interventions: Yes: Attend Stress Management Classes and No: Referral to Behavioral Health if PHQ-9 score >9:, No: Referral to [facility] and No: Referral to Physician if PHQ-9 if score is 5-9: Psychosocial - Final Assessmen Target Goals Target Goals Referral to Behavioral Health PS - Interventions: Yes: Attend Stress Management Classes and No: Referral to Behavioral Health if PHQ-9 score >9:, No: Referral to [facility] and No: Referral to Physician if PHQ-9 if score is 5-9: Nutrition - 90-Day Assessment Weight Mgt (Other Care) Height: 5 ft 8 in Weight:: 240 lb BMI: 36.5 Nutrition - Final Assessment Program Goals Patient has diagnosis of Hyperlipidemia (ICD E78)?: Yes Weight Mgt (Other Care) Height: 5 ft 8 in Weight:: 240 lb BMI: 36.5
--- NOTE | 2024-02-04 08:59 | PCM.CR.HP2 ---
CR - History & Physical General Arrival date:: 02/04/24 Arrival time:: 09:00 Date of Referral:: 01/26/24 Date of CR Evaluation:: 02/04/24 Referring Physician: Dr. Alex Crooks Primary Diagnosis: PCI w/coronary stenting, abnormal stress test History of Present Cardiac Event Onset Date Acute Myocardial Infarction within 12 months:: Yes (STEMI in 2017) PTCA or coronary stenting:: Yes Vessel: 02/04/2024, PCI in 2016 Type of Symptoms:: Shortness of breath, fatigue Interventions with present event:: Stress test w/abnormal results, then scheduled heart cath about week later Were there any complications?: No Medications Ambulatory Orders ?Medication ?Instructions ?Recorded metformin 1,000 mg tablet 1,000 mg PO BIDCM diabetes 01/17/16 montelukast 10 mg tablet 10 mg PO QHS allergies 01/17/16 acetaminophen 325 mg tablet 325 - 650 mg (1 - 2 x 325 mg) PO 07/14/17 Q6H PRN PRN Pain aspirin 81 mg tablet,delayed 81 mg PO DAILY@0800 #30 tabs 07/14/17 release pramipexole 1 mg tablet 2 mg PO QHS headache 05/07/18 coenzyme Q10 100 mg capsule 100 mg PO DAILY supplement 12/08/18 magnesium oxide 400 mg PO DAILY supplement 12/08/18 fluticasone propionate 50 1 spray intranasal DAILY PRN nasal 04/05/20 mcg/actuation nasal spray spray,suspension alprazolam 0.25 mg tablet 0.25 mg PO DAILY PRN anxiety 10/12/20 nitroglycerin 0.4 mg sublingual 0.4 mg sublingual Q5M PRN Angina 11/29/21 tablet pain #25 tabs vitamin B complex 1 tab PO DAILY 03/14/22 pravastatin 40 mg tablet 40 mg PO DAILY 04/28/23 isosorbide mononitrate 30 mg 30 mg PO DAILY #90 tabs 07/05/23 tablet,extended release 24 hr furosemide 40 mg tablet See Rx Instructions PO .COMPLEX 07/13/23 #270 tabs buspirone 10 mg tablet 20 mg PO BID Anxiety 08/20/23 insulin NPH isoph U-100 human 100 See Rx Instructions subcut BID 08/20/23 unit/mL subcutaneous suspension diabetes clopidogrel 75 mg tablet 75 mg PO DAILY #90 tabs 10/26/23 albuterol sulfate 90 mcg/actuation 2 puff inhalation Q4H PRN 10/28/23 aerosol inhaler (Ventolin HFA) shortness of breath or wheezing #18 grams fluticasone 500 mcg-salmeterol 50 1 inh inhalation BID #60 ea 10/28/23 mcg/dose blistr powdr for inhalation (Wixela Inhub) clotrimazole-betamethasone 1 1 applic topical BID 4 weeks #45 11/17/23 %-0.05 % topical cream grams carvedilol 25 mg tablet 25 mg PO BID #180 tabs 12/07/23 cholecalciferol (vitamin D3) 50 2,000 unit PO DAILY supplement 12/07/23 mcg (2,000 unit) capsule glyburide 1.25 mg tablet 1.25 mg PO BID 12/07/23 omeprazole 40 mg capsule,delayed 40 mg PO BID 12/07/23 release Allergies Allergies Penicillins Allergy (Severe, Verified 01/13/24 09:19) Anaphylaxis quinine sulfate (From Quine) Allergy (Severe, Verified 01/13/24 09:19) passed out benzocaine (From Cetacaine) Allergy (Verified 01/13/24 09:19) Swelling butamben (From Cetacaine) Allergy (Verified 01/13/24 09:19) Swelling ciprofloxacin HCl (From Cipro) Allergy (Verified 01/13/24 09:19) Hives TONGUE SWELLS clarithromycin (From Biaxin) Allergy (Verified 01/13/24 09:19) Swelling exenatide (From Byetta) Allergy (Verified 01/13/24 09:19) Rash folic acid (From Proferrin-Forte) Allergy (Verified 01/13/24 09:19) Rash hyoscyamine sulfate (From Levsin) Allergy (Verified 01/13/24 09:19) Rash iron heme polypeptide (From Proferrin-Forte) Allergy (Verified 01/13/24 09:19) tongue swelling naproxen (From Naprosyn) Allergy (Verified 01/13/24 09:19) Rash tetracaine (From Cetacaine) Allergy (Verified 01/13/24 09:19) throat swelled shut venlafaxine HCl (From Effexor) Allergy (Verified 01/13/24 09:19) tongue swelling ezetimibe (From Zetia) Adverse Reaction (Severe, Verified 01/13/24 09:19) Myalgias, diarrhea mold Adverse Reaction (Severe, Verified 01/13/24 09:19) PT UNSURE OF REACTION FROM ASPERGILLUS niacin (From Niaspan Extended-Release) Adverse Reaction (Severe, Verified 01/13/24 09:19) PT UNSURE OF REACTION procainamide Adverse Reaction (Severe, Verified 01/13/24 09:19) Anaphylactic/Resp. Distress atorvastatin calcium (From Lipitor) Adverse Reaction (Intermediate, Verified 01/13/24 09:19) Mylagias rosuvastatin calcium (From Crestor) Adverse Reaction (Intermediate, Verified 01/13/24 09:19) Myalgias diphenhydramine HCl (From Benadryl) Adverse Reaction (Verified 01/13/24 09:19) Restlessness Sleep Disorder Evaluation Hx of Sleep Apnea: Yes Do you snore loudly (louder than talking or can be heard through closed doors)?: Yes Do you often feel tired/ fatigued/ sleepy during daytime?: Yes Has anyone observed you stop breathing during sleep?: Yes History of Hypertension (for STOP score): Yes STOP Results: Positive Has CPAP not use Advanced Directives Advanced Directives Power of Photographic Equipment Assembler: No Living Will: No Advance Directives Information Provided: Yes Advance Directives on File: No DNR Order?:: No MOLST See MOLST form: No Past Medical History Covid-19 Screening Physicial Symptoms Fever: No Unexplained muscle aches: No Current respiratory symptoms: No Upper respiratory infections symptoms: No Gastro-intestinal symptoms: No Arg-Deaq-Syckyc symptoms: No Other Clinical Concerns Has tested positive for COVID-19 in last 30 days: No Exposure Risk Had contact w/person w/symptoms or Covid-19 (+) last 14 days: No Has High Risk Exposures ID'd by Health dept/Inf Control team: No Pertinent Comorbidities 65 years or older:: Yes Lives in Assisted Living facility:: No Has a chronic lung disease or moderate to severe asthma:: Yes Has a serious heart condition:: Yes Immunocompromised:: No Severely obese (Body Mass Index of 40 or higher):: No Has chronic kidney disease undergoing dialysis:: No Has liver disease:: No Past Medical Illness Past Medical History Tinea cruris B35.6 History of chronic CHF Z86.79 Varicose veins of both legs with edema I83.893 Lower extremity edema R60.0 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 disease I25.10 Carotid bruit R09.89 Neck pain M54.2 Shortness of breath R06.02 Abnormal nuclear stress test R94.39 Essential hypertension I10 Inappropriate sexual behavior Z72.89 Hypomagnesemia E83.42 Muscle cramps R25.2 Edema R60.9 KRISTI (obstructive sleep apnea) G47.33 AHI 45.8 Chronic diastolic (congestive) heart failure I50.32 Atherosclerotic heart disease of [place] coronary artery without angina pectoris I25.[address] elevation myocardial infarction (STEMI) (07/11/17) I25.2 Anterior Asthma J45.909 IBS (irritable bowel syndrome) 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.9) E66.9 Continue to encourage weight loss. Restless legs Hyperlipidemia E78.5 Diabetes mellitus, type 2 E11.9 Anxiety F41.9 Past Surgical History Past Surgical History (Updated 01/28/24 @ 07:53 by Liz Martinez) Stented coronary artery (~01/26/24) Z95.5 ALEXANDRO Mid LAD using Willi [place] 2.25x12 mm 01/26/24 History of left heart catheterization (12/06/21) Z98.890 History of coronary artery stent placement (04/13/19) Z95.5 PCI-ALEXANDRO-Mid LAD w/ 3.0 x 24 mm Promus Stent 07/11/2017; PCI-ALEXANDRO-Mid LAD ALEXANDRO 2.25 x 38 mm 04/13/2019 History of left knee surgery Z98.890 meniscus repait History of dental surgery Z92.89 History of vasectomy Z98.52 Status post excision of lipoma Z98.890, Z86.018 History of appendectomy Z90.49 History of exploratory laparotomy Z98.890 History of cholecystectomy Z90.49 Surgical History: appendectomy, arthscropcy, hip, cholecystectomy and - Family History Summary Family History Mother Diabetes Hypertension Father Hypotension Brother Hypertension HLD (hyperlipidemia) Grandmother Diabetes Grandfather CVA (cerebral vascular accident) Diabetes Brother Cancer lung Social History Smoking History Smoking Status: Never smoker Alcohol Use Alcohol Usage: No Substance Abuse Hx Substance Use: No Occupation Occupation (List type of work in comments):: Retired Hobbies, Recreation, Social Activities Hobbies: Sports (Hunting) Recreational Activities: I am able to engage in most, but not all activities Social Environment Status Marital Status: Current Living Arrangements Living Environment:: Alone Children How many children do you have?: 3 Do any of your children live nearby?: Yes Safety Do you feel safe in your surroundings?: Yes Assistance Do you need any assistance at home?: lifting or moving heavy furniture Review of Systems Review of Systems Hints Review of Present Symptoms: Reports Shortness of Breath with Exertion, Dizziness/Lightheadedness, Fatigue and Appetite - Normal; Denies Shortness of Breath at Rest, Angina, Heart Arrhythmia/Irregularities or Appetite - Special Diet (Try to follow diabetic & cardiac diet but not well.) Pain Is Patient Pain Free?: No Risk Factor Assessment Chief Complaint Chief Complaint: Shortness of breath, DM Type II, HTN, HLD, Obesity, Asthma, CHF, CAD, previous STEMI, PTCA W/stent Vital Signs Temperature: 98.4 F Respiratory Rate: 18 Pulse Ox: 95 Blood Pressure: 138/70 Pulse Pulse Rate: 88 Pulse Rhythm: Regular Hypertension How long have you been treated?: a long time On medication(s)?: Yes Blood Pressure Sitting - Left Arm: 138/70 Blood Cholesterol/Lipids Total Cholesterol (mg/dL) Goal = less than 200 mg/dL: 194 HDL Cholesterol (mg/dL) Goal = less than 40 mg/dL: 45 LDL Cholesterol (mg/dL) Goal = less than 70 mg/dL: 130 Triglycerides (mg/dL) Goal = less than 150 mg/dL: 95 Diabetes Diabetic History: Type II, Medication Dependent and Insulin Dependent Nutrition Referral for Diabetes: Yes Obesity Height: 5 ft 8 in Weight:: 240 lb Weight in Pounds: 240.0 lbs Weight Source: Stated by Patient Body Mass Index (BMI): 36.5 Nutritional Referral for Obesity: Yes Physical Inactivity Physical Inactivity: None Risk Stratification Risk Guidelines: Lowest Risk: Risk Factor for Smoking, Moderate Risk: Risk Factor for Dyslipidemia and Risk Factor for Diabetes (Glucose 115, last HbA1c >8.0) and Highest Risk: Risk Factor for Obesity (BMI >35) and Risk Factor for Sedentary Lifestyle For Smoking Smoking Risk Guidelines For Dyslipidemia Dyslipidemia Risk Guidelines For Diabetes Mellitus Diabetes Risk Guidelines For Obesity/Overweight Obesity/Overweight Risk Guidelines For Hypertension Hypertension Risk Guidelines For Sedentary Lifestyle Sedentary Lifestyle Risk Guidelines For Depression Depression Risk Guidelines Family History Family History Mother Diabetes Hypertension Father Hypotension Brother Hypertension HLD (hyperlipidemia) Grandmother Diabetes Grandfather CVA (cerebral vascular accident) Diabetes Brother Cancer Motivation Motivation to Participate On a scale of 1 to 10, how prepared are you to commit to attending program?: 8 What do you see as barriers to successfully being able to complete the program?: No What do you see as the benefits of succesfully completing the program? In other words, what do you hope to get out of participating in the program?: less dyspnea, stronger, feeling better Are there issues you are dealing with that will interfere with completing the program?: no Do you have a spouse or signficant other, family or friends who will help support you to complete the program?: Yes
[2024-02-04 09:14] VITALS: BP 130/70; BP 138/70
[2024-02-04 09:21] VITALS: BP 138/70; BMI 36.5
[2024-02-04 09:30] VITALS: BP 138/70; PULSE 88; RESP 18; TEMP 36.9; O2SAT 95; BMI 36.5
== END | disposition home or self-care (01) ==
LOC: CR 08:50
PROVIDERS: PCP Family Medicine; Referring Provider Internal Medicine Cardiovascular Disease; Visit Provider Internal Medicine Cardiovascular Disease
DX: R94.39 Abnormal result of other cardiovascular function study (principal); Z95.5 Presence of coronary angioplasty implant and graft

== ENCOUNTER 2024-02-12 08:00 | Outpatient (RCR) | payer MEDICARE, SELFPAY ==
[2024-02-04 09:21] VITALS: BMI 36.5
== END 2024-02-12 23:59 ==
LOC: CR 08:00
PROVIDERS: PCP Family Medicine; Referring Provider Internal Medicine Cardiovascular Disease; Visit Provider Internal Medicine Cardiovascular Disease
DX: Z95.5 Presence of coronary angioplasty implant and graft (principal); R94.39 Abnormal result of other cardiovascular function study
CPT/HCPCS: 93798

== ENCOUNTER → 2024-02-15 | Outpatient (CLI) | payer MEDICARE, SELFPAY ==
[2024-02-04 09:21] VITALS: BMI 36.5
[2024-02-15 12:17] LABS: BNP,B-Type NATRIURETIC PEPTIDE 92.5 pg/mL (0-100)
[2024-02-15 12:35] LABS: Anion Gap 2 (5-15); BUN 15 mg/dL (7-18); BUN/Creat Ratio 15.4 RATIO (10-20); Calcium,Total 9.2 mg/dL (8.5-10.1); Chloride 95 mmol/L (98-107); Creatinine, Serum 0.97 mg/dL (0.70-1.30); EST Glomerular Filtration Rate 81 mL/min (>60); Est Glom Filt Rate - Afr Amer 98 mL/min (>60); Glucose 115 mg/dL (74-106); Potassium 4.2 mmol/L (3.5-5.1); Sodium Level 132 mmol/L (136-145)
== END | disposition home or self-care (01) ==
LOC: LAB 10:50
PROVIDERS: PCP Family Medicine; Referring Provider Nurse Practitioner Gerontology; Visit Provider Nurse Practitioner Gerontology
DX: R06.09 Other forms of dyspnea (principal)
CPT/HCPCS: 36415; 80048; 83880

== ENCOUNTER 2024-03-11 08:00 | Outpatient (RCR) | payer MEDICARE, SELFPAY ==
[2024-02-04 09:21] VITALS: BMI 36.5
--- NOTE | 2024-03-04 05:28 | CR.ITP_ITS ---
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 Little interest or pleasure in doing things: Several days 2. Feeling down, depressed, or hopeless: Several days 3. Trouble falling or staying asleep, or sleeping too much: Several days 4. Feeling tired or having little energy: More than half the days 5. Poor appetite or overeating: Several days 6. Feeling bad about yourself -- or that you are a failure or have let yourself or your family down: Several days 7. Trouble concentrating on things, such as reading the newspaper or watching television: Several days 8. Moving or speaking so slowly that other people could have noticed. Or the opposite - being so fidgety or restless that you have been moving around a lot more than usual: Not at all 9. Thoughts that you would be better off , or of hurting yourself in some way: Not at all How difficult have these problems made it for you to do your work, take care of things at home, or get along with other people?: Somewhat difficult Total Score: 8 Self-Efficacy 6-Item Scale 30-Day Re-eval Assessment: We would like to know how confident you are in doing certain activities. Please select your confidence level for: Fatigue Select Number: 3 Physical Discomfort or Pain Select Number: 3 Emotional Distress Select Number: 4 Other Symptoms or Health Problems Select Number: 4 Different Tasks and Activities Select Number: 5 Medication Select Number: 7 Total Score:: 4 Nutrition Survey Nutrition Survey Instructions Scoring Instructions Exercise - 30-day Assessment Visit Date of Eval: 03/04/24 Session #:: 9 Physician Prescribed Exercise Modalities: SciFit Stepper, SciFit Pro-II Ergometer and SciFit Lateral [place] Frequency: 3x/week for 12 weeks [36 sessions] Intensity: 60-80% of age predicted maximum heart rate reserve Duration: 30 - 45 minutes (Resting SpO2 89%, patient is exercised on 3 liters to maintain SpO2>90%) Current METSs:: 3.5 Target Heart Rate:: 96-112 Current RPE:: 12-13 Maximum Excercise HR:: 99 Resting Blood Pressure: 126/56 Maximum Exercise Blood Pressure: 144/60 EKG Type: NSR with BBB. Rare PAC/PVC. Current Physical Activity or Exercising minutes: 40:20 Outcomes & Goals Goals:: Verbalizes understanding of THR, RPE & goal METS by session 6, Documents in home exercise log/reports 30 min aerobic 5 day/wk by DC and Demonstrates accurate pulse taking by DC Intervention & Plan Exercise Program Goals: Instruct on personal THR & RPE, Instruct on MET level & personal MET goal, Show patient to take own pulse /validate performance until accurate and Instruct on home exercise 30-day Reassessments 30 day Reassessments:: Met Physical Activity Home Exercise Physical Activity - Home Exercise: Safe Exercise, Warm-up, Self-monitoring, Cool-Down, Home Exercise > 30 min Daily and Sitting Time <3 hours/daily Outcomes & Goals Outcomes/Goals: Demonstrates correct Warm-up/exercise Cool-Down (S3) if = 2.5 METs, Verbalizes symptoms of exercise intolerance by Session 3 (S3) and Demonstrate safe equipment use (S3) & follows exercise prescrition (6) Intervention & Plan Plan/Intervention: Instruct warm-up & cool-down if exercising at > 2 METs, Instruct on symptoms of exercise intolerance & actions to take, Instruct & monitor on saf and Assess intial functional capacity & safety risk 30-day Reassessments 30 day Reassessments:: Met Exercise - 60-day Assessment Physician Prescribed Exercise Modalities: SciFit Stepper, SciFit Pro-II Ergometer and SciFit Lateral Tarnov Exercise - 90-day Assessment Physician Prescribed Exercise Modalities: SciFit Stepper, SciFit Pro-II Ergometer and SciFit Lateral Tarnov Exercise - Final/Discharge Physician Prescribed Exercise Modalities: SciFit Stepper, SciFit Pro-II Ergometer and SciFit Lateral Tarnov Nutrition - 30-Day Assessment Program Goals Nutrition Program Goals Patient has diagnosis of Hyperlipidemia (ICD E78)?: Yes Visit Date of Eval: 03/04/24 Session #:: 9 Cholesterol/Lipids (Other Core Measures) Triglycerides (mg/dL): 93 Total Cholesterol (mg/dL): 194 LDL Cholesterol (mg/dL): 130 HDL Cholesterol (mg/dL): 45 Determine presence & major risk factors that modify LDL goal: Hypertension or hypertensive medication, Family history of premature CHD in Male < 55 years: female <65 yearsFa and Age men > 45 years; women >/= 55 years Outcomes/Goals: Pt IDs own risk factors & lifestyle modifications by Session 10, Verbalizes symptoms of angina & response by session 3. and Pt independently manages Intervention/Plan: Instruct on personal lipid levels & lipid goals/NCEP guideli reta and Instruct on cholesterol Referral to dietitian:: Yes 30-day Reassessments:: Progressing Diabetes (Other Core Measures) Diabetes Type: Diagnosis Type II ICD-10 E11 Fasting blood glucose:: 115 (Patient does not have a recent HbA1c in his EMR) Hgb A1C (4.2 -6.3): Insulin dependent injection/pump?: Yes Non-Insulin Dependent?: Yes Do you monitor your blood sugar at home?: Yes Referral to Diabetic Clinic:: Yes Outcomes/Goals:: Able to state symptoms of, Able to state and Able to state Intervention/Plan:: Instruct on, Refer to and Instruct on 30-day Reassessments:: Progressing Reassessment Notes & Comments:: Referral to Nutritional Services Weight Mgt (Other Care) Not Applicable: No Height: 5 ft 8 in Weight:: 251 lb 8 oz (increased from 247) BMI: 38.2 Diagnosis Overweight/Obesity BMI> 30% ICD-10 E66: Yes Diagnosis High BMI/Morbid Obesity BMI> 35% ICD-10 Z68: Yes Outcomes/Goals: Pt sets, maintains & shows weight loss goal & trend during rehab Intervention/Plan: Instruct on ideal BMI & set weight loss goal w/patient, Assist pt to ID & incorporate diet changes for weight loss by S9 and Encourage goal of using 250-300dcal per session for weight loss 30 day Reassessments:: Progressing Reassessment Notes & Comments:: Patient needs encouragement to consult with Nutritional Services W/DM, Obesity, hyperlipidemia Healthy Eating Habits Will attend diet classes:: Yes Outcomes/Goals:: Consume diet rich in vegs,fruits,whole grain/high fiber,fish,lean meat and Limit sat/trans fats,cholesterol & added salts & sugars Intervention/Plan:: Assess current eating habits 30-day Reassessments:: Progressing Education Gave educational materials for:: Signs & symptoms of hypoglycemia, Signs & symptoms of hyperglycemia, Relate diabetes to coronary artery disease and Healthy eating Nutrition - 60-Day Assessment Weight Mgt (Other Care) Height: 5 ft 8 in Weight:: 251 lb 8 oz (increased from 247) BMI: 38.2 Core - 60-Day Assessment Visit Date of Eval: 03/04/24 Session #:: 9 Medication Compliance Preventative Medication(s):: Aspirin, Clopidogrel/P2Y12 inhibit, Statin/lipid and Beta yanna H/O mental health issues: depression, anxiety, or addiction?: No Doesn?t believe in the benefits of treatment?: No Believes medications are unnecessary or harmful?: No Has a concern about medication side effects?: No Expresses concern over the cost of medications?: No Outcomes/Goals: Verbalizes medications,desired effect & common side effects @ DC, Pt self-reports following medication regimen and Keeps card in wallet w/medications listed by DC Interventions/plans: Instruct on medication effects & side effects, Review medication list w/patient every two weeks and Instruct importance of taking meds as ordered & assist problem solving 30-day Reassessments:: Met Tobacco Use Tobacco Use: Non-smoker Hypertension Hypertension Diagnosis:: Hypertension ICD-10 I10 Resting Blood Pressure:: 126/56 [place] [employer] Hypertension Guidelines Peak Exercise Blood Pressure:: 144/60 Outcomes/Goals: Able to verbalize/achieve optimal blood pressure <130/80 and Incorporates diet changes & exercise for blood pressure control by DC Interventions/plan: Instruct on optimal blood pressure, hypertension & medications and Instruct on effects of sodium, alcohol, stress, exercise &hypertension 30 day Reassessments:: Met Tobacco Cessation Referral Smoking Cessation Referral:: No Individual Education/Counseling:: Yes (Nutritional Services - Metabolic Syndrome - Obesity, DM, HTN, HLD, CHF) Education Schedule Given:: Yes Psychosocial - 30-Day Assess Target Goals Target Goals Referral to Behavioral Health PS - Interventions: Yes: Referral to Physician if PHQ-9 if score is 5-9: and Yes: Attend Stress Management Classes and No: Referral to Behavioral Health if PHQ-9 score >9: and No: Referral to [facility] Outcomes/Goals: See list Psychosocial Outcomes/Goals:: ID's personal stressors & 2 strategies to manage stress by discharge Psychosocial - 60-Day Assess VIsit Date of Eval: 03/04/24 Session #:: 9 Not Applicable: Yes History of previous Mental disease:: No Target Goals Target Goals Psychosocial Test Tool Used:: PHQ-9 Questionnaire phq-9 Severity Referral to Behavioral Health PS - Interventions: Yes: Referral to Physician if PHQ-9 if score is 5-9: and Yes: Attend Stress Management Classes and No: Referral to Behavioral Health if PHQ-9 score >9: and No: Referral to [facility] Outcomes/Goals: See list Psychosocial Outcomes/Goals:: ID's personal stressors & 2 strategies to manage stress by discharge Intervention/Plan: See List Interventions/Plan:: Instruct/assist pt to develop coping & personal stress Mgt strategies, Instruct patient to recognize signs & symptoms of depression and Instruct patient to recog 30-day Reassessments: 30 day Reassessments:: Met Psychosocial - 90-Day Assess Target Goals Target Goals Referral to Behavioral Health PS - Interventions: Yes: Referral to Physician if PHQ-9 if score is 5-9: and Yes: Attend Stress Management Classes and No: Referral to Behavioral Health if PHQ-9 score >9: and No: Referral to [facility] Psychosocial - Final Assessmen Target Goals Target Goals Referral to Behavioral Health PS - Interventions: Yes: Referral to Physician if PHQ-9 if score is 5-9: and Yes: Attend Stress Management Classes and No: Referral to Behavioral Health if PHQ-9 score >9: and No: Referral to [facility] Nutrition - 90-Day Assessment Weight Mgt (Other Care) Height: 5 ft 8 in Weight:: 251 lb 8 oz (increased from 247) BMI: 38.2 Nutrition - Final Assessment Weight Mgt (Other Care) Height: 5 ft 8 in Weight:: 251 lb 8 oz (increased from 247) BMI: 38.2
[2024-03-04 05:40] VITALS: BP 126/56; BMI 38.2
== END 2024-03-13 23:59 ==
LOC: CR 08:00
PROVIDERS: PCP Family Medicine; Referring Provider Internal Medicine Cardiovascular Disease; Visit Provider Internal Medicine Cardiovascular Disease
DX: Z95.5 Presence of coronary angioplasty implant and graft (principal); R94.39 Abnormal result of other cardiovascular function study; I25.10 Atherosclerotic heart disease of native coronary artery without angina pectoris
CPT/HCPCS: 93798

== ENCOUNTER 2024-04-01 05:08 | Emergency (ER) | payer MEDICARE, SELFPAY ==
[2024-03-04 05:40] VITALS: BMI 38.2
[2024-04-01] VITALS (7 sets, daily range): BP systolic 123–160; BP diastolic 67–83; PULSE 20–78; RESP 16–64; TEMP 36.6–36.7; O2SAT 93–98
--- NOTE | 2024-04-01 05:13 | EKG12_ITS ---
Test Reason : SHORTNESS OF BREATH Blood Pressure : / mmHG Vent. Rate : 071 BPM Atrial Rate : 071 BPM P-R Int : 192 ms QRS Dur : 136 ms QT Int : 412 ms P-R-T Axes : 033 -62 007 degrees QTc Int : 447 ms Normal sinus rhythm Right bundle branch block Left anterior fascicular block Bifascicular block Inferior infarct (cited on or before 22-JUL-2023) Abnormal ECG Confirmed by KEITH EDWARDS, JACKY ([id number]), editor news JEYSON CAI ([id number]) on 04/04/2024 11:13:59 AM Referred By: DAJUAN Confirmed By:JACKY PARKER MD
--- NOTE | 2024-04-01 05:13 | RAD_ITS ---
EXAM: XR CHEST, 2 VIEWS CLINICAL INDICATION: chest tightness/sob TECHNIQUE: Frontal and lateral views of the chest. COMPARISON: Two-view chest January 14, 2024 FINDINGS: LUNGS AND PLEURAL SPACES: Bibasilar atelectasis. No pneumothorax. No effusion. HEART: Unremarkable. Cardiac silhouette not enlarged. MEDIASTINUM: Central airways and mediastinal contour are unremarkable. BONES/JOINTS: Degenerative changes of the spine. No acute fracture. SOFT TISSUES: Unremarkable. RAD/Chest PA and Lateral IMPRESSION: Bibasilar atelectasis. Electronically Signed: Lloyd Davis MD at 6:33 EDT ,
--- NOTE | 2024-04-01 05:15 | ED.VIS.DYS ---
HPI History of Present Illness Chief Complaint: Shortness of Breath Informant: patient and family Narrative Narrative: 73-year-old male presenting for dyspnea and chest tightness, he states it has been going on for 3 years, and both he and the family member state that it has been progressively worse for at least the last month. When asked why they present for this at 5 AM to the ER, he states he has had coughing fits all morning and having trouble stopping making all of his symptoms worse, including dyspnea in between coughing fits, and even when he was on his 3 L of oxygen, family member states she checked his oxygen levels and it was 84%. The patient then indicates that he is on 3 L all of the time, and if he does not wear his oxygen he is usually in the high 80s. Right now with his 3 L of oxygen he is 95-99%. He is hoarse/raspy and he and family member state that is his baseline. When asked if he has COPD he states no, but my lungs are shot and he sees the pulmonology office here but does not know what his lung problem is. He recently was seen by his PCP and prescribed an albuterol inhaler but he just received it yesterday and has not had a chance to even use it. He denies any fevers or chills or new edema in his legs. He states he occasionally makes small amount of white sputum no more than usual no color changes or blood. [facility] Medical History Tinea cruris History of chronic CHF Varicose veins of both legs with edema Lower extremity edema 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 disease Carotid bruit Neck pain Shortness of breath Abnormal nuclear stress test Essential hypertension Inappropriate sexual behavior Hypomagnesemia Muscle cramps Edema KRISTI (obstructive sleep apnea) Chronic diastolic (congestive) heart failure Atherosclerotic heart disease of [place] coronary artery without angina pectoris History of ST elevation myocardial infarction (STEMI) (07/11/17) Asthma IBS (irritable bowel syndrome) 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.9) Restless legs Hyperlipidemia Diabetes mellitus, type 2 Anxiety Home Medications ?Medication ?Instructions ?Recorded ?Last Taken ?Type metformin 1,000 mg tablet 1,000 mg PO BIDCM diabetes 01/17/16 01/25/24 History montelukast 10 mg tablet 10 mg PO QHS allergies 01/17/16 12/07/18 History acetaminophen 325 mg tablet 325 - 650 mg (1 - 2 x 325 mg) PO 07/14/17 Unknown Rx Q6H PRN PRN Pain aspirin 81 mg tablet,delayed 81 mg PO DAILY@0800 #30 tabs 07/14/17 01/26/24 Rx release pramipexole 1 mg tablet 2 mg PO QHS headache 05/07/18 12/08/18 21:00 History coenzyme Q10 100 mg capsule 100 mg PO DAILY supplement 12/08/18 12/04/18 History magnesium oxide 400 mg PO DAILY supplement 12/08/18 12/08/18 08:00 History fluticasone propionate 50 1 spray intranasal DAILY PRN nasal 04/05/20 Unknown History mcg/actuation nasal spray spray,suspension alprazolam 0.25 mg tablet 0.25 mg PO DAILY PRN anxiety 10/12/20 Unknown History nitroglycerin 0.4 mg sublingual 0.4 mg sublingual Q5M PRN Angina 11/29/21 Unknown Rx tablet pain #25 tabs vitamin B complex 1 tab PO DAILY 03/14/22 Unknown History isosorbide mononitrate 30 mg 30 mg PO DAILY #90 tabs 07/05/23 Unknown Rx tablet,extended release 24 hr buspirone 10 mg tablet 20 mg PO BID Anxiety 08/20/23 Unknown History insulin NPH isoph U-100 human 100 See Rx Instructions subcut BID 08/20/23 Unknown History unit/mL subcutaneous suspension diabetes clopidogrel 75 mg tablet 75 mg PO DAILY #90 tabs 10/26/23 01/26/24 Rx albuterol sulfate 90 mcg/actuation 2 puff inhalation Q4H PRN 10/28/23 Unknown Rx aerosol inhaler (Ventolin HFA) shortness of breath or wheezing #18 grams fluticasone 500 mcg-salmeterol 50 1 inh inhalation BID #60 ea 10/28/23 Unknown Rx mcg/dose blistr powdr for inhalation (Wixela Inhub) clotrimazole-betamethasone 1 1 applic topical BID 4 weeks #45 11/17/23 Unknown Rx %-0.05 % topical cream grams carvedilol 25 mg tablet 25 mg PO BID #180 tabs 12/07/23 Unknown Rx cholecalciferol (vitamin D3) 50 2,000 unit PO DAILY supplement 12/07/23 Unknown History mcg (2,000 unit) capsule glyburide 1.25 mg tablet 1.25 mg PO BID 12/07/23 01/25/24 History omeprazole 40 mg capsule,delayed 40 mg PO BID 12/07/23 Unknown History release pravastatin 40 mg tablet 40 mg PO DAILY #90 TABLETS 02/09/24 Unknown Rx furosemide 40 mg tablet 80 mg PO DAILY 04/01/24 Unknown History prednisone 20 mg tablet 40 mg (2 x 20 mg) PO DAILY #8 04/01/24 Unknown Rx TABLETS Allergy/AdvReac Type Severity Reaction Status Date / Time Penicillins Allergy Severe Anaphylaxis Verified 04/01/24 05:14 quinine sulfate (From Quine) Allergy Severe passed out Verified 04/01/24 05:14 benzocaine (From Cetacaine) Allergy Swelling Verified 04/01/24 05:14 butamben (From Cetacaine) Allergy Swelling Verified 04/01/24 05:14 ciprofloxacin HCl (From Allergy Hives Verified 04/01/24 05:14 Cipro) clarithromycin (From Biaxin) Allergy Swelling Verified 04/01/24 05:14 exenatide (From [place]) Allergy Rash Verified 04/01/24 05:14 folic acid (From Allergy Rash Verified 04/01/24 05:14 Proferrin-Forte) hyoscyamine sulfate (From Allergy Rash Verified 04/01/24 05:14 Levsin) iron heme polypeptide (From Allergy tongue Verified 04/01/24 05:14 Proferrin-Forte) swelling naproxen (From Naprosyn) Allergy Rash Verified 04/01/24 05:14 tetracaine (From Cetacaine) Allergy throat Verified 04/01/24 05:14 swelled shut venlafaxine HCl (From Allergy tongue Verified 04/01/24 05:14 Effexor) swelling ezetimibe (From Zetia) AdvReac Severe Myalgias, Verified 04/01/24 05:14 diarrhea mold AdvReac Severe PT UNSURE Verified 04/01/24 05:14 OF REACTION niacin (From Niaspan AdvReac Severe PT UNSURE Verified 04/01/24 05:14 Extended-Release) OF REACTION procainamide AdvReac Severe Anaphylactic/Resp. Verified 04/01/24 05:14 Distress atorvastatin calcium (From AdvReac Intermediate Mylagias Verified 04/01/24 05:14 Lipitor) rosuvastatin calcium (From AdvReac Intermediate Myalgias Verified 04/01/24 05:14 Crestor) diphenhydramine HCl (From AdvReac Restlessnes Verified 04/01/24 05:14 Benadryl) s Family History Mother Diabetes Hypertension Father Hypotension Brother Hypertension HLD (hyperlipidemia) Grandmother Diabetes Grandfather CVA (cerebral vascular accident) Diabetes Brother Cancer lung Surgical History Stented coronary artery (~01/26/24) History of left heart catheterization (12/06/21) History of coronary artery stent placement (04/13/19) History of left knee surgery History of dental surgery History of vasectomy Status post excision of lipoma History of appendectomy History of exploratory laparotomy History of cholecystectomy Social History Smoking Status: Never smoker second hand exposure: No alcohol intake: never substance use type: does not use caffeine: No seatbelt use: always do you feel safe at home: Yes ROS ROS ED Constitutional Constitutional ED: Denies chills or fever(s) Eyes Eyes: Denies change in vision or diplopia ENT ENT ED: Reports hoarseness; Denies rhinorrhea or sore throat Cardiovascular Cardiovascular: Denies orthopnea, palpitations or syncope Respiratory/Chest Respiratory/Chest: Reports as per HPI, chest tightness, cough, dyspnea and sputum; Denies orthopnea Gastrointestinal Gastrointestinal: Denies abdominal pain, diarrhea, nausea or vomiting Genitourinary Genitourinary ED: Denies dysuria or hematuria Musculoskeletal Musculoskeletal: Denies back pain or neck pain Integumentary Denies abscess or rash Neurologic Neurologic: Denies headache(s), paresthesias or weakness Psychiatric Psychiatric: Denies suicidal thoughts EXAM Physical Exam Const Vital Signs: 04/01/24 05:08 04/01/24 05:08 04/01/24 05:14 Temperature 98.1 F Temperature Source Oral Pulse Rate 77 Respiratory Rate 16 Respiratory Effort Short of Breath Respiratory Depth Shallow Respiratory Pattern Tachypnea Blood Pressure 146/83 H Blood Pressure Mean 104 Pulse Ox 96 95 Oxygen Delivery Method Nasal Cannula Nasal Cannula Nasal Cannula Oxygen Flow Rate (L/min) 3 3 3 04/01/24 05:14 04/01/24 05:58 04/01/24 06:14 Temperature 98.0 F 98 F Temperature Source Oral Oral Pulse Rate 60 78 65 Respiratory Rate 20 H 20 H 16 Respiratory Effort Respiratory Depth Respiratory Pattern Normal Blood Pressure 133/79 H 148/82 H Blood Pressure Mean 97 104 Pulse Ox 96 97 Oxygen Delivery Method Room Air Nasal Cannula Oxygen Flow Rate (L/min) 3 3 04/01/24 07:00 04/01/24 08:00 04/01/24 08:00 Temperature 98 F 98.1 F Temperature Source Temporal Oral Pulse Rate 77 20 L 64 Respiratory Rate 18 64 H 19 H Respiratory Effort Respiratory Depth Respiratory Pattern Blood Pressure 160/73 H 123/69 H 128/67 H Blood Pressure Mean 102 87 87 Pulse Ox 93 97 98 Oxygen Delivery Method Nasal Cannula Nasal Cannula Nasal Cannula Oxygen Flow Rate (L/min) 3 3 Positive well nourished, well developed and obese General Appearance ED: well developed and NAD Nutritional Appearance: obese HEENT Reports moist mucous membranes HEENT Narrative: Hoarseness without stridor normocephalic and atraumatic Eyes PERRL and EOMs intact bilaterally Neck full ROM, supple and no JVD Resp normal respiratory effort Resp Narrative: Mild expiratory wheezes throughout. Otherwise lungs mildly diminished symmetrically and clear. Cardio regular rate, regular rhythm and no murmurs Rate: Negative for tachycardic GI non-tender and non-distended Auscultation: normoactive bowel sounds Palpation: soft Back/Spine no CVA tenderness General Back: other FROM Extremity normal to inspection General Extremety ED: Yes edema; Negative for pulses abnormal or tenderness General Extremity: edema bilateral lower extremity Details: mild (With bilateral symmetric changes of chronic stasis dermatitis); Negative for pulses abnormal Neuro oriented x3, CN's II-XII intact bilaterally and no sensory deficits noted Sensorium / Orientation: awake and alert Motor Exam: strength 5/5 throughout Skin no rashes or lesions noted and no wounds MDM MDM MDM Narrative Medical decision making narrative: Ordered chest x-ray, EKG, labs with respiratory workup, nebulizer treatment, as well as a COVID/influenza/RSV swab. After the nebulizer treatment, he is feeling improved, his viral swab is negative, two chest x-ray interpretation shows no acute infiltrate/pneumonia, radiology was in agreement, and his labs are unremarkable. There are some delay in getting the BNP back, it is only 115, arguing against acute decompensated congestive heart failure at this time, troponin is normal, and EKG shows a sinus rhythm without injury pattern, unchanged. Given all this, I reviewed his prior pulmonary records as an outpatient, he has been diagnosed with asthma. I think this is related. I think placing him on a five day course of prednisone is reasonable, he?s comfortable with that overall plan will follow up with pulmonary. We discussed reasons to return. Lab Data Attestation: I reviewed the patient's lab results. Labs: Laboratory Results - last 24 hr 04/01/24 04/01/24 04/01/24 05:43 06:23 07:20 WBC 8.1 RBC 4.73 Hgb 12.0 L Hct 39.9 L MCV 84.4 MCH 25.4 L MCHC 30.1 L RDW Std Deviation 44.3 H RDW Coeff of Jeanette 14.5 Plt Count 248 MPV 9.6 Immature Gran % (Auto) 0.100 Neut % (Auto) 64.6 Lymph % (Auto) 19.1 Bennett % (Auto) 13.2 H Eos % (Auto) 2.5 Baso % (Auto) 0.5 Absolute Neuts (auto) 5.3 Absolute Lymphs (auto) 1.55 Nucleated RBC % 0 Sodium 130 L Potassium 4.8 Chloride 92 L Carbon Dioxide 33.0 H Anion Gap 5 BUN 16 Creatinine 1.04 Est GFR (MDRD) Af Amer 90 Est GFR (MDRD) Non-Af 75 BUN/Creatinine Ratio 15.4 Glucose 56 L Calcium 8.6 Troponin I High Sens 8 B-Natriuretic Peptide 114.7 H POC Glucose 42 L* 132 H Radiography Diagnostic Testing: Clinical Impression(s) from Imaging Studies Chest X-Ray 04/01/24 05:13 IMPRESSION: Bibasilar atelectasis. Electronically Signed: Lloyd Davis MD at 6:33 EDT , Rhythm Strip Rhythm Strip: Sinus Rhythm Rate: 70 Ectopy: None EKG Initial EKG: Attestation: I personally reviewed and interpreted this EKG as follows: Interpretation: Sinus Rhythm, No Acute Injury Pattern, RBBB and LAFB Prior EKG tracings: available for review Prior: Unchanged Discharge Plan Triage Chief Complaint: Shortness of Breath ED Provider: Hong Espinal Dx/Rx/DC Orders Clinical Impression: Asthma with exacerbation, Chest tightness, History of chronic CHF Instructions: Asthma Prescriptions: New prednisone 20 mg tablet 40 mg PO DAILY Qty: 8 0RF No Action buspirone 10 mg tablet 20 mg PO BID vitamin B complex Tablet 1 tab PO DAILY nitroglycerin 0.4 mg tablet, sublingual 0.4 mg SUBLINGUAL Q5M PRN (Reason: Angina pain) Qty: 25 3RF insulin NPH isoph U-100 human 100 unit/mL suspension See Rx Instructions SC BID Rx Instructions: 56 units in am, 44 units in hs; omeprazole 40 mg capsule,delayed release(DR/EC) 40 mg PO BID glyburide 1.25 mg tablet 1.25 mg PO BID carvedilol 25 mg tablet 25 mg PO BID Qty: 180 3RF Rx Instructions: must administer with a meal/food clotrimazole-betamethasone 1-0.05 % cream 1 applic topical BID 28 Days Qty: 45 1RF metformin 1,000 MG tablet 1,000 mg PO BIDCM montelukast 10 MG tablet 10 mg PO QHS pramipexole 1 mg tablet 2 mg PO QHS Patient Comments: 1 mg PO 2 tablets by mouth at bedtime Rx Instructions: 1 mg PO 2 tablets by mouth at bedtime fluticasone propionate 50 mcg/actuation spray,suspension 1 spray INTRANASAL DAILY PRN (Reason: nasal spray) alprazolam 0.25 mg tablet 0.25 mg PO DAILY PRN (Reason: anxiety) Patient Comments: for anxiety acetaminophen 325 MG tablet 325 - 650 mg PO Q6H PRN PRN (Reason: Pain) 0RF aspirin 81 MG tablet 81 mg PO DAILY@0800 Qty: 30 0RF magnesium oxide 400 MG tablet 400 mg PO DAILY coenzyme Q10 100 MG capsule 100 mg PO DAILY cholecalciferol (vitamin D3) 50 mcg (2,000 unit) capsule 2,000 unit PO DAILY furosemide 40 mg tablet 80 mg PO DAILY Rx Instructions: takes 80mg in the am and 40mg in the afternoon isosorbide mononitrate 30 mg tablet extended release 24 hr 30 mg PO DAILY Qty: 90 3RF clopidogrel 75 mg tablet 75 mg PO DAILY Qty: 90 3RF fluticasone propion-salmeterol [Wixela Inhub] 500-50 mcg/dose blister with device 1 inh inhalation BID Qty: 60 3RF albuterol sulfate [Ventolin HFA] 90 mcg/actuation HFA aerosol inhaler 2 puff INHALATION Q4H PRN (Reason: shortness of breath or wheezing) Qty: 18 6RF pravastatin 40 mg tablet 40 mg PO DAILY Qty: 90 3RF Primary Care Provider: Maya Pradhan Referrals: Maya Pradhan DO [Primary Care Provider] - Aretha Vasquez NP, [employer] [Med Staff - Adv Practice Prof] - 3-5 Days if not improving Activity Restrictions/Additional Instructions: start prescription prednisone tomorrow, 04/02 (you received first dose in the ER for the ). use your inhaler as needed for any further wheezing/shortness of breath Print Language: [place] Disposition Disposition: Home, Self Care
[2024-04-01 05:49] LABS: Absolute Lymphocyte Count 1.55 X10^3/uL (0.83-4.51); Absolute Neutrophil Count 5.3 X10^3/uL (2.0-7.7); Basophil# 0.04 X10^3/uL; Basophil% 0.5 % (0-1); Eosinophils% 2.5 % (0-5); Hematocrit 39.9 % (40-54); Lymphocyte # 1.55 X10^3/ul (0.83-4.51); Lymphocyte % 19.1 % (19-41); Mean Corp Hgb Conc 30.1 g/dL (32-36); Mean Corpuscular Hgb 25.4 pg (27.0-32.0); Mean Corpuscular Volume 84.4 fL (80-94); Mean Platelet Vol. 9.6 fl (6.2-12.0); Monocyte# 1.07 X10^3/uL; Monocyte% 13.2 % (0-10); NRBC Flagged by Analyzer 0 % (0-5); Neutrophil # 5.26 X10^3/uL (2.7-7.7); Neutrophil % 64.6 % (47-70); Platelet Count 248 K/mm3 (150-450); RBC Distribution Width CV 14.5 % (11.6-14.6); RBC Distribution Width SD 44.3 fl (35.1-43.9); Red Blood Count 4.73 M/mm3 (4.6-6.2); White Blood Count 8.1 K/mm3 (4.4-11.0)
[2024-04-01] MEDS: Ipratropium/Albuterol Sulfate 3 ML AMPUL.NEB INHALATION (05:58)
[2024-04-01 06:11] LABS: Anion Gap 5 (5-15); BUN 16 mg/dL (7-18); BUN/Creat Ratio 15.4 RATIO (10-20); Calcium,Total 8.6 mg/dL (8.5-10.1); Chloride 92 mmol/L (98-107); Creatinine, Serum 1.04 mg/dL (0.70-1.30); EST Glomerular Filtration Rate 75 mL/min (>60); Est Glom Filt Rate - Afr Amer 90 mL/min (>60); Glucose 56 mg/dL (74-106); Potassium 4.8 mmol/L (3.5-5.1); Sodium Level 130 mmol/L (136-145); Troponin-I HS 8 pg/mL (3.0-78.0)
[2024-04-01] MEDS: Dextrose 10%-Water 250 ML 999 ML IV (06:25)
--- NOTE | 2024-04-01 06:25 | ED.RN ---
Pt called out stating he was having blurred vision,visible tremors and feeling off. Requesting blood sugar be checked. BG 42. D10 hung and OJ with cheeststick given. Dr. Espinal aware.
[2024-04-01 06:44] LABS: Bedside Glucose 42 mg/dL (74-106)
[2024-04-01 07:38] LABS: Bedside Glucose 132 mg/dL (74-106)
[2024-04-01 08:28] LABS: BNP,B-Type NATRIURETIC PEPTIDE 114.7 pg/mL (0-100)
[2024-04-01] MEDS: MethylPREDNISolone 125 MG/2 ML Vial IV (08:58)
== END 2024-04-01 09:15 | disposition home or self-care (01) ==
PROVIDERS: Emergency Provider Emergency Medicine; PCP Family Medicine; Visit Provider Emergency Medicine
DX: J45.901 Unspecified asthma with (acute) exacerbation (principal); I11.0 Hypertensive heart disease with heart failure; I50.9 Heart failure, unspecified; E11.9 Type 2 diabetes mellitus without complications; E78.5 Hyperlipidemia, unspecified; R07.89 Other chest pain; I25.10 Atherosclerotic heart disease of native coronary artery without angina pectoris; Z99.81 Dependence on supplemental oxygen; E66.9 Obesity, unspecified
CPT/HCPCS: 71046; 80048; 82962; 83880; 84484; 85025; 87631; 93005; 94640; 96365; 96375; 99284; A4216

== ENCOUNTER 2024-04-13 08:00 | Outpatient (RCR) | payer MEDICARE, SELFPAY ==
[2024-03-04 05:40] VITALS: BMI 38.2
[2024-03-14 00:17] VITALS: BP 126/56
--- NOTE | 2024-04-04 08:09 | PCM.CR.ITP ---
Exercise - Initial Assessment Physician Prescribed Exercise Modalities: SciFit Stepper, SciFit Pro-II Ergometer and SciFit Lateral Category Development Analyst Nutrition - Initial Assessment Weight Mgt (Other Care) Height: 5 ft 8 in Weight:: 251 lb 8 oz BMI: 38.2 Psychosocial - Initial Assess Target Goals Target Goals Patient Health Questionnaire PHQ-9 Screening 60-Day Re-eval Assessment: 1. Little interest or pleasure in doing things: Several days 2. Feeling down, depressed, or hopeless: Several days 3. Trouble falling or staying asleep, or sleeping too much: Several days 4. Feeling tired or having little energy: More than half the days 5. Poor appetite or overeating: Several days 6. Feeling bad about yourself -- or that you are a failure or have let yourself or your family down: Several days 7. Trouble concentrating on things, such as reading the newspaper or watching television: Several days 8. Moving or speaking so slowly that other people could have noticed. Or the opposite - being so fidgety or restless that you have been moving around a lot more than usual: Not at all 9. Thoughts that you would be better off , or of hurting yourself in some way: Not at all How difficult have these problems made it for you to do your work, take care of things at home, or get along with other people?: Somewhat difficult Total Score: 8 Self-Efficacy 6-Item Scale 60-Day Re-eval Assessment: We would like to know how confident you are in doing certain activities. Please select your confidence level for: Fatigue Select Number: 3 Physical Discomfort or Pain Select Number: 3 Emotional Distress Select Number: 4 Other Symptoms or Health Problems Select Number: 4 Different Tasks and Activities Select Number: 5 Medication Select Number: 7 Total Score:: 4 Nutrition Survey Nutrition Survey Instructions Scoring Instructions Exercise - 30-day Assessment Physician Prescribed Exercise Modalities: SciFit Stepper, SciFit Pro-II Ergometer and SciFit Lateral [place] Exercise - 60-day Assessment Visit Date of Eval: 04/04/24 Session #:: 17 Physician Prescribed Exercise Modalities: SciFit Stepper, SciFit Pro-II Ergometer and SciFit Lateral [place] Frequency: 3x/week for 12 weeks [36 sessions] Intensity: 60-80% of age predicted maximum heart rate reserve Duration: 30 - 45 minutes Current METSs:: 3.5 Target Heart Rate:: 96-112 Current RPE:: 11-12.5 Maximum Excercise HR:: 103 Resting Blood Pressure: 130/68 Maximum Exercise Blood Pressure: 132/62 EKG Type: NSR w/ BBB w/ rare PAC/PVC Outcomes & Goals Goals:: Verbalizes understanding of THR, RPE & goal METS by session 6, Documents in home exercise log/reports 30 min aerobic 5 day/wk by DC, Demonstrates accurate pulse taking by DC and Other additional outcome/goals: see below Intervention & Plan Exercise Program Goals: Instruct on personal THR & RPE, Instruct on MET level & personal MET goal, Show patient to take own pulse /validate performance until accurate, Instruct on home exercise and Other additional plan/int 30-day Reassessments 30 day Reassessments:: Progressing Reassessment Notes & Comments:: THR explained Physical Activity Home Exercise Physical Activity - Home Exercise: Safe Exercise, Warm-up, Self-monitoring, Cool-Down, Home Exercise > 30 min Daily and Sitting Time <3 hours/daily Outcomes & Goals Outcomes/Goals: Demonstrates correct Warm-up/exercise Cool-Down (S3) if = 2.5 METs, Verbalizes symptoms of exercise intolerance by Session 3 (S3), Demonstrate safe equipment use (S3) & follows exercise prescrition (6) and Other: See below Intervention & Plan Plan/Intervention: Instruct warm-up & cool-down if exercising at > 2 METs, Instruct on symptoms of exercise intolerance & actions to take, Instruct & monitor on saf, Assess intial functional capacity & safety risk and Other See below 30-day Reassessments 30 day Reassessments:: Progressing Reassessment Notes & Comments:: cool down encouraged Exercise - 90-day Assessment Physician Prescribed Exercise Modalities: SciFit Stepper, SciFit Pro-II Ergometer and SciFit Lateral [place] Exercise - Final/Discharge Physician Prescribed Exercise Modalities: SciFit Stepper, SciFit Pro-II Ergometer and SciFit Lateral Category Development Analyst Nutrition - 30-Day Assessment Weight Mgt (Other Care) Height: 5 ft 8 in Weight:: 251 lb 8 oz BMI: 38.2 Nutrition - 60-Day Assessment Program Goals Nutrition Program Goals Patient has diagnosis of Hyperlipidemia (ICD E78)?: Yes Visit Date of Eval: 04/04/24 Session #:: 17 Cholesterol/Lipids (Other Core Measures) Determine presence & major risk factors that modify LDL goal: Hypertension or hypertensive medication, Low HDL cholesterol <40 mg/dL*, Family history of premature CHD in Male < 55 years: female <65 yearsFa and Age men > 45 years; women >/= 55 years Outcomes/Goals: Pt IDs own risk factors & lifestyle modifications by Session 10, Verbalizes symptoms of angina & response by session 3., Pt independently manages and Other Additional Outcomes/Goals: Intervention/Plan: Advocate for lipid panel cholesterol medication if applicable, Instruct on personal lipid levels & lipid goals/NCEP guidelines, Instruct on cholesterol and Other additional plan/int 30-day Reassessments:: Progressing Reassessment Notes & Comments:: pt to attend nutrition class Diabetes (Other Core Measures) Diabetes Type: Diagnosis Type II ICD-10 E11 Insulin dependent injection/pump?: Yes Non-Insulin Dependent?: Yes Do you monitor your blood sugar at home?: Yes Outcomes/Goals:: Able to state symptoms of, Able to state, Able to state and Other additional Intervention/Plan:: Instruct on, Refer to, Instruct on and Other 30-day Reassessments:: Progressing Reassessment Notes & Comments:: pt to attend nutrition class Weight Mgt (Other Care) Height: 5 ft 8 in Weight:: 251 lb 8 oz BMI: 38.2 Diagnosis Overweight/Obesity BMI> 30% ICD-10 E66: Yes Diagnosis High BMI/Morbid Obesity BMI> 35% ICD-10 Z68: Yes Outcomes/Goals: Pt sets, maintains & shows weight loss goal & trend during rehab and Other additional outcomes/goals Intervention/Plan: Instruct on ideal BMI & set weight loss goal w/patient, Assist pt to ID & incorporate diet changes for weight loss by S9, Refer to Structured Weight Loss program as appropriate, Encourage goal of using 250-300dcal per session for weight loss and Other additional plan/interventions 30 day Reassessments:: Progressing Reassessment Notes & Comments:: pt to attend nutrition class Healthy Eating Habits Will attend diet classes:: Yes Outcomes/Goals:: Consume diet rich in vegs,fruits,whole grain/high fiber,fish,lean meat, Limit sat/trans fats,cholesterol & added salts & sugars and Other additional outcome/goals: Intervention/Plan:: Assess current eating habits and Other Additional plan/interventions 30-day Reassessments:: Progressing Reassessment Notes & Comments:: pt to attend nutrition class Education Gave educational materials for:: Signs & symptoms of hypoglycemia, Signs & symptoms of hyperglycemia, Relate diabetes to coronary artery disease and Healthy eating Core - 60-Day Assessment Visit Date of Eval: 04/04/24 Session #:: 17 Medication Compliance Preventative Medication(s):: Aspirin, Clopidogrel/P2Y12 inhibit, Statin/lipid and Beta yanna H/O mental health issues: depression, anxiety, or addiction?: No Doesn?t believe in the benefits of treatment?: No Believes medications are unnecessary or harmful?: No Has a concern about medication side effects?: No Expresses concern over the cost of medications?: No Outcomes/Goals: Verbalizes medications,desired effect & common side effects @ DC, Pt self-reports following medication regimen, Keeps card in wallet w/medications listed by DC and Other additional outcome/goals: Interventions/plans: Instruct on medication effects & side effects, Review medication list w/patient every two weeks, Instruct importance of taking meds as ordered & assist problem solving and Other additional 30-day Reassessments:: Progressing Reassessment Notes & Comments:: pt encouraged to take his meds Tobacco Use Tobacco Use: Non-smoker Hypertension Hypertension Diagnosis:: Hypertension ICD-10 I10 Resting Blood Pressure:: 130/68 [place] [employer] Hypertension Guidelines Peak Exercise Blood Pressure:: 132/62 Outcomes/Goals: Able to verbalize/achieve optimal blood pressure <130/80, Incorporates diet changes & exercise for blood pressure control by DC and Other additional outcomes/goals Interventions/plan: Instruct on optimal blood pressure, hypertension & medications, Instruct on effects of sodium, alcohol, stress, exercise &hypertension and Other additional plan/interventions 30 day Reassessments:: Progressing Reassessment Notes & Comments:: pt encouraged to take his meds Tobacco Cessation Referral Smoking Cessation Referral:: No Individual Education/Counseling:: No Education Schedule Given:: Yes Psychosocial - 30-Day Assess Target Goals Target Goals Outcomes/Goals: See list Psychosocial Outcomes/Goals:: ID's personal stressors & 2 strategies to manage stress by discharge and Other Additional outcome/goals: Psychosocial - 60-Day Assess VIsit Date of Eval: 04/04/24 Session #:: 17 History of previous Mental disease:: No Target Goals Target Goals Outcomes/Goals: See list Psychosocial Outcomes/Goals:: ID's personal stressors & 2 strategies to manage stress by discharge and Other Additional outcome/goals: Intervention/Plan: See List Interventions/Plan:: Assess stressors,coping strategies & signs of derpression on admission, Instruct/assist pt to develop coping & personal stress Mgt strategies, Refer to Behavioral Health if appropriate, Refer to Physician if appropriate, Instruct patient to recognize signs & symptoms of depression, Instruct patient to recog and Other additional plan/intervention 30-day Reassessments: 30 day Reassessments:: Met Psychosocial - 90-Day Assess Target Goals Target Goals Psychosocial - Final Assessmen Target Goals Target Goals Nutrition - 90-Day Assessment Weight Mgt (Other Care) Height: 5 ft 8 in Weight:: 251 lb 8 oz BMI: 38.2 Nutrition - Final Assessment Weight Mgt (Other Care) Height: 5 ft 8 in Weight:: 251 lb 8 oz BMI: 38.2
[2024-04-04 08:21] VITALS: BP 130/68; BMI 38.2
== END 2024-04-13 23:59 ==
LOC: CR 08:00
PROVIDERS: PCP Family Medicine; Referring Provider Internal Medicine Cardiovascular Disease; Visit Provider Internal Medicine Cardiovascular Disease
DX: Z95.5 Presence of coronary angioplasty implant and graft (principal); R94.39 Abnormal result of other cardiovascular function study; I25.10 Atherosclerotic heart disease of native coronary artery without angina pectoris
CPT/HCPCS: 93798

== ENCOUNTER 2024-05-01 00:48 | Emergency (ER) | payer MEDICARE, SELFPAY ==
[2024-04-04 08:21] VITALS: BMI 38.2
[2024-05-01 00:49] VITALS: BP 126/63; PULSE 87; RESP 13; TEMP 36.6; O2SAT 90; BMI 38.7
[2024-05-01 00:52] VITALS: BP 126/63; PULSE 86; RESP 13; TEMP 36.6; O2SAT 95
--- NOTE | 2024-05-01 01:07 | RAD_ITS ---
EXAM: XR RIGHT TIBIA AND FIBULA, 2 VIEWS CLINICAL INDICATION: pain/swelling/infection pain/swelling/infection TECHNIQUE: Frontal and lateral views of the right tibia and fibula. COMPARISON: X-ray left tibia and fibula. FINDINGS: BONES/JOINTS: There are foci of mild smooth continuous periosteal calcification in the proximal tibia and fibular shafts bilaterally, which may be the result of remote trauma (myositis ossificans). No acute fracture. No subluxation. Normal alignment. Preservation of the joint space. No sclerotic or destructive changes observed. SOFT TISSUES: There is nonspecific soft tissue swelling. No radiopaque foreign body. RAD/Tibia & Fibula 2 Views IMPRESSION: No demonstrated fracture, dislocation, or destructive osseous lesion. Electronically Signed: Angel Burks MD at 2:44 EDT Reading Location ID and State: [facility] / [place] , Service support ,
--- NOTE | 2024-05-01 01:07 | RAD_ITS ---
EXAM: XR LEFT TIBIA AND FIBULA, 2 VIEWS CLINICAL INDICATION: PAIN, SWELLING, INFECTION PAIN, SWELLING, INFECTION TECHNIQUE: Frontal and lateral views of the left tibia and fibula. COMPARISON: X-ray left tibia and fibula. FINDINGS: BONES/JOINTS: There are areas of mild smooth continuous periosteal calcification in the proximal tibias and fibulas bilaterally, which may be the result of remote trauma (myositis ossificans). No acute fracture. No subluxation. Normal alignment. Preservation of the joint space. No sclerotic or destructive changes observed. SOFT TISSUES: Nonspecific soft tissue swelling. No radiopaque foreign body. RAD/Tibia & Fibula 2 Views IMPRESSION: No demonstrated fracture, dislocation, or destructive osseous lesion. Electronically Signed: Angel Burks MD at 2:42 EDT Reading Location ID and State: [facility] / [place] , Service support ,
--- NOTE | 2024-05-01 01:08 | RAD_ITS ---
EXAM: XR CHEST, 2 VIEWS CLINICAL INDICATION: sob - chronic, with acute leg edema sob - chronic, with acute leg edema TECHNIQUE: Frontal and lateral views of the chest. COMPARISON: Chest x-ray 04/01/2024. FINDINGS: LUNGS AND PLEURAL SPACES: Lungs are mildly underexpanded. There is mild bilateral basilar atelectasis. No demonstrated pulmonary infiltrates. No pneumothorax. No effusion. HEART: Unremarkable. Cardiac silhouette not enlarged. MEDIASTINUM: Central airways and mediastinal contour are unremarkable. BONES/JOINTS: There are multilevel degenerative changes in the visualized spine. No acute fracture. SOFT TISSUES: Unremarkable. RAD/Chest PA and Lateral IMPRESSION: No evidence for acute cardiopulmonary pathology. Electronically Signed: Angel Burks MD at 2:47 EDT Reading Location ID and State: [facility] / [place] , Service support ,
--- NOTE | 2024-05-01 01:08 | EKG12_ITS ---
Test Reason : SOB Blood Pressure : / mmHG Vent. Rate : 084 BPM Atrial Rate : 084 BPM P-R Int : 174 ms QRS Dur : 130 ms QT Int : 376 ms P-R-T Axes : 034 -58 010 degrees QTc Int : 444 ms Normal sinus rhythm Right bundle branch block Left anterior fascicular block Bifascicular block Inferior infarct , age undetermined Abnormal ECG Confirmed by ELVER EDWARDS, MADI ([id number]), editor book ZAFAR TEMPLE ([id number]) on 05/06/2024 6:18:14 AM Referred By: Confirmed By:JULIAN RAYA MD
--- NOTE | 2024-05-01 01:12 | EX.ED.DYSGE1 ---
HPI History of Present Illness Chief Complaint: Edema Informant: patient and family Narrative Narrative: Patient states he presents for several issues. He states his legs are swollen, painful, red, and he has had diarrhea for 2 days with his last bout being bloody tonight. Patient agrees he has chronic edema in his legs since last year, and he had a stent placed in his heart earlier this year still doing cardiac rehab, he states the edema is worse and they are acutely red which is new since yesterday and painful since yesterday. The left is worse than the right. He has no history of DVTs that he knows of. He does not have CHF that he knows of, however his chart shows diagnosis of chronic CHF. He has chronic dyspnea with exertion and orthopnea that are not different now. He states he was having watery diarrhea for the last 2 days, somewhere between 10 and 15 bouts per day, the only bout of blood was tonight, he is not continuously bleeding, denies any melena prior to this. No fevers or chills. No abdominal pain, nausea, vomiting. He states last time he was on antibiotics is unknown, he was on prednisone 2 to 3 weeks ago for his COPD and not sure if he was on an antibiotic with that or not. No history of C. difficile that he knows of. He is not anticoagulated but he takes aspirin and clopidogrel. He is concerned that his legs are cellulitic like they were a past episode. [facility] Medical History Tinea cruris History of chronic CHF Varicose veins of both legs with edema Lower extremity edema 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 disease Carotid bruit Neck pain Shortness of breath Abnormal nuclear stress test Essential hypertension Inappropriate sexual behavior Hypomagnesemia Muscle cramps Edema KRISTI (obstructive sleep apnea) Chronic diastolic (congestive) heart failure Atherosclerotic heart disease of [place] coronary artery without angina pectoris History of ST elevation myocardial infarction (STEMI) (07/11/17) Asthma IBS (irritable bowel syndrome) 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.9) Restless legs Hyperlipidemia Diabetes mellitus, type 2 Anxiety Home Medications ?Medication ?Instructions ?Recorded ?Last Taken ?Type metformin 1,000 mg tablet 1,000 mg PO BIDCM diabetes 01/17/16 01/25/24 History montelukast 10 mg tablet 10 mg PO QHS allergies 01/17/16 12/07/18 History acetaminophen 325 mg tablet 325 - 650 mg (1 - 2 x 325 mg) PO 07/14/17 Unknown Rx Q6H PRN PRN Pain aspirin 81 mg tablet,delayed 81 mg PO DAILY@0800 #30 tabs 07/14/17 01/26/24 Rx release pramipexole 1 mg tablet 2 mg PO QHS headache 05/07/18 12/08/18 21:00 History coenzyme Q10 100 mg capsule 100 mg PO DAILY supplement 12/08/18 12/04/18 History magnesium oxide 400 mg PO DAILY supplement 12/08/18 12/08/18 08:00 History fluticasone propionate 50 1 spray intranasal DAILY PRN nasal 04/05/20 Unknown History mcg/actuation nasal spray spray,suspension alprazolam 0.25 mg tablet 0.25 mg PO DAILY PRN anxiety 10/12/20 Unknown History nitroglycerin 0.4 mg sublingual 0.4 mg sublingual Q5M PRN Angina 11/29/21 Unknown Rx tablet pain #25 tabs vitamin B complex 1 tab PO DAILY 03/14/22 Unknown History isosorbide mononitrate 30 mg 30 mg PO DAILY #90 tabs 07/05/23 Unknown Rx tablet,extended release 24 hr buspirone 10 mg tablet 20 mg PO BID Anxiety 08/20/23 Unknown History insulin NPH isoph U-100 human 100 See Rx Instructions subcut BID 08/20/23 Unknown History unit/mL subcutaneous suspension diabetes clopidogrel 75 mg tablet 75 mg PO DAILY #90 tabs 10/26/23 01/26/24 Rx albuterol sulfate 90 mcg/actuation 2 puff inhalation Q4H PRN 10/28/23 Unknown Rx aerosol inhaler (Ventolin HFA) shortness of breath or wheezing #18 grams fluticasone 500 mcg-salmeterol 50 1 inh inhalation BID #60 ea 10/28/23 Unknown Rx mcg/dose blistr powdr for inhalation (Wixela Inhub) clotrimazole-betamethasone 1 1 applic topical BID 4 weeks #45 11/17/23 Unknown Rx %-0.05 % topical cream grams carvedilol 25 mg tablet 25 mg PO BID #180 tabs 12/07/23 Unknown Rx cholecalciferol (vitamin D3) 50 2,000 unit PO DAILY supplement 12/07/23 Unknown History mcg (2,000 unit) capsule glyburide 1.25 mg tablet 1.25 mg PO BID 12/07/23 01/25/24 History omeprazole 40 mg capsule,delayed 40 mg PO BID 12/07/23 Unknown History release pravastatin 40 mg tablet 40 mg PO DAILY #90 TABLETS 02/09/24 Unknown Rx furosemide 40 mg tablet 80 mg PO DAILY 04/01/24 Unknown History prednisone 20 mg tablet 40 mg (2 x 20 mg) PO DAILY #8 04/01/24 Unknown Rx TABLETS doxycycline monohydrate 100 mg 100 mg PO BID 10 days #20 tabs 05/01/24 Unknown Rx tablet Allergy/AdvReac Type Severity Reaction Status Date / Time Penicillins Allergy Severe Anaphylaxis Verified 04/01/24 05:14 quinine sulfate (From Quine) Allergy Severe passed out Verified 04/01/24 05:14 benzocaine (From Cetacaine) Allergy Swelling Verified 04/01/24 05:14 butamben (From Cetacaine) Allergy Swelling Verified 04/01/24 05:14 ciprofloxacin HCl (From Allergy Hives Verified 04/01/24 05:14 Cipro) clarithromycin (From Biaxin) Allergy Swelling Verified 04/01/24 05:14 exenatide (From Byetta) Allergy Rash Verified 04/01/24 05:14 folic acid (From Allergy Rash Verified 04/01/24 05:14 Proferrin-Forte) hyoscyamine sulfate (From Allergy Rash Verified 04/01/24 05:14 Levsin) iron heme polypeptide (From Allergy tongue Verified 04/01/24 05:14 Proferrin-Forte) swelling naproxen (From Naprosyn) Allergy Rash Verified 04/01/24 05:14 tetracaine (From Cetacaine) Allergy throat Verified 04/01/24 05:14 swelled shut venlafaxine HCl (From Allergy tongue Verified 04/01/24 05:14 Effexor) swelling ezetimibe (From Zetia) AdvReac Severe Myalgias, Verified 04/01/24 05:14 diarrhea mold AdvReac Severe PT UNSURE Verified 04/01/24 05:14 OF REACTION niacin (From Niaspan AdvReac Severe PT UNSURE Verified 04/01/24 05:14 Extended-Release) OF REACTION procainamide AdvReac Severe Anaphylactic/Resp. Verified 04/01/24 05:14 Distress atorvastatin calcium (From AdvReac Intermediate Mylagias Verified 04/01/24 05:14 Lipitor) rosuvastatin calcium (From AdvReac Intermediate Myalgias Verified 04/01/24 05:14 Crestor) diphenhydramine HCl (From AdvReac Restlessnes Verified 04/01/24 05:14 Benadryl) s Family History Mother Diabetes Hypertension Father Hypotension Brother Hypertension HLD (hyperlipidemia) Grandmother Diabetes Grandfather CVA (cerebral vascular accident) Diabetes Brother Cancer lung Surgical History Stented coronary artery (~01/26/24) History of left heart catheterization (12/06/21) History of coronary artery stent placement (04/13/19) History of left knee surgery History of dental surgery History of vasectomy Status post excision of lipoma History of appendectomy History of exploratory laparotomy History of cholecystectomy Social History Smoking Status: Never smoker second hand exposure: No alcohol intake: never substance use type: does not use caffeine: No seatbelt use: always do you feel safe at home: Yes ROS ROS ED Constitutional Constitutional ED: Denies chills or fever(s) Eyes Eyes: Denies change in vision or diplopia ENT ENT ED: Denies rhinorrhea or sore throat Cardiovascular Cardiovascular: Reports leg edema and orthopnea; Denies chest pain, lightheadedness or palpitations Respiratory/Chest Respiratory/Chest: Reports as per HPI, cough, dyspnea on exertion and orthopnea Gastrointestinal Gastrointestinal: Reports as per HPI, diarrhea and hematochezia; Denies abdominal pain, melena, nausea or vomiting Genitourinary Genitourinary ED: Denies dysuria or hematuria Musculoskeletal Musculoskeletal: Denies back pain or neck pain Integumentary Reports rash; Denies abscess Neurologic Neurologic: Denies headache(s), paresthesias or weakness Psychiatric Psychiatric: Denies suicidal thoughts EXAM Physical Exam Const Vital Signs: 05/01/24 00:49 05/01/24 00:52 05/01/24 00:52 Temperature 98 F 98 F Temperature Source Oral Oral Pulse Rate 87 86 Respiratory Rate 13 13 Respiratory Effort Normal Non-Labored Respiratory Pattern Normal Blood Pressure 126/63 H 126/63 H Blood Pressure Mean 84 84 Pulse Ox 90 95 Oxygen Delivery Method Nasal Cannula Nasal Cannula Oxygen Flow Rate (L/min) 3 3 05/01/24 01:08 05/01/24 01:49 05/01/24 01:52 Temperature 98.2 F Temperature Source Temporal Pulse Rate 83 84 Respiratory Rate 19 H 19 H Respiratory Effort Respiratory Pattern Blood Pressure 110/66 110/66 Blood Pressure Mean 80 80 Pulse Ox 94 94 Oxygen Delivery Method Nasal Cannula Nasal Cannula Nasal Cannula Oxygen Flow Rate (L/min) 4 4 Positive well nourished, well developed and obese General Appearance ED: well developed and NAD Nutritional Appearance: obese HEENT Reports moist mucous membranes normocephalic and atraumatic Eyes PERRL and EOMs intact bilaterally Neck full ROM and supple Chest Wall inspection of chest normal and palpation of chest normal Resp normal respiratory effort and clear to auscultation bilaterally Resp Narrative: Diminished throughout, clear, symmetric with trachea midline no respiratory distress speaking in full sentences Cardio regular rate and regular rhythm Cardio Narrative: Soft systolic ejection murmur LLSB GI non-tender and non-distended Auscultation: normoactive bowel sounds Palpation: soft Back/Spine no CVA tenderness General Back: other FROM Extremity Extremity Narrative: There is bright hyperemia with warmth and tenderness both lower legs, more proximal in the lower leg and prominent in the left lower extremity than the right. There are a couple of nonruptured small bullae without subcutaneous emphysema on the left. All compartments are soft and nondistended. He can range the knees and ankles without difficulty. Neurovascular intact distally. No obvious nidus for infection on either leg. There is evidence of dark discoloration more distal than the hyperemia, bilaterally, consistent with chronic stasis dermatitis. The patient confirms that he has had chronic edema but this is worse. General Extremety ED: Yes edema and tenderness; Negative for pulses abnormal General Extremity: edema bilateral lower extremity Details: moderate; Negative for pulses abnormal Neuro oriented x3, CN's II-XII intact bilaterally and no sensory deficits noted Sensorium / Orientation: awake and alert Motor Exam: strength 5/5 throughout Psych mental status grossly normal Skin Skin Narrative: See above description bilateral lower extremity, otherwise no rashes or other lesions. MDM MDM MDM Narrative Medical decision making narrative: With the patient's lymphedema, chronic dyspnea/orthopnea, and a history of documented congestive heart failure, cellulitis of both lower extremities is in the differential as is exacerbation of congestive heart failure. He states his breathing is at baseline right now. We have him on oxygen and he is on oxygen at home. His lung sounds clear, two-view chest x-ray on my interpretation is negative for any acute radiology was in agreement. Labs are remarkably normal. There is no leukocytosis or leftward shift or bandemia. He had a single bout of bright red blood per rectum, he has no active bleeding right now and he is not acutely anemic. Comparably, his hemoglobin is similar to what it was a month ago, it was 12.0 now 11.8. Looking at his allergy list specially with anaphylaxis to penicillins, I gave him a dose of IV cefepime to cover him for possible cellulitis of both lower legs. I obtained 4 view x-ray series of each lower leg, both of which on my interpretation are negative for subcutaneous gas formation. I reexamined him after this workup 1-2 hours later, the erythema is at the same level of which it was during my initial evaluation, all arguing against acute necrotizing fasciitis. I offered to admit him for further evaluation for rectal bleeding, and for IV antibiotics for the cellulitis. He declines and prefers to go home. His vital signs are normal while on oxygen, states he has an appointment with his foot doctor coming up after the weekend, and would prefer to be on antibiotics at home. I advised him that if his bleeding continues or gets worse, he is welcome to come back to the ER. Did not have diarrhea while here for us to send for testing. I will send him home with a kit for collection and outpatient labs if he continues to have diarrhea. Lab Data Attestation: I reviewed the patient's lab results. Labs: Laboratory Results - last 24 hr 05/01/24 01:35 WBC 8.8 RBC 4.87 Hgb 11.8 L Hct 39.5 L MCV 81.1 MCH 24.2 L MCHC 29.9 L RDW Std Deviation 46.3 H RDW Coeff of Jeanette 15.8 H Plt Count 238 MPV 9.8 Immature Gran % (Auto) 0.300 Neut % (Auto) 66.2 Lymph % (Auto) 15.4 L [place] % (Auto) 16.7 H Eos % (Auto) 1.1 Baso % (Auto) 0.3 Absolute Neuts (auto) 5.8 Absolute Lymphs (auto) 1.35 Nucleated RBC % 0 Sodium 132 L Potassium 4.0 Chloride 91 L Carbon Dioxide 36.0 H Anion Gap 5 BUN 16 Creatinine 1.06 Estim Creat Clear Calc 77.73 Est GFR (MDRD) Af Amer 88 Est GFR (MDRD) Non-Af 73 BUN/Creatinine Ratio 15.1 Glucose 102 Calcium 8.6 Troponin I High Sens 6 B-Natriuretic Peptide 70.5 Blood Type A POSITIVE Antibody Screen NEGATIVE Radiography Diagnostic Testing: Clinical Impression(s) from Imaging Studies Tibia/Fibula X-Ray 05/01/24 01:07 IMPRESSION: No demonstrated fracture, dislocation, or destructive osseous lesion. Electronically Signed: Angel Burks MD at 2:44 EDT , Tibia/Fibula X-Ray 05/01/24 01:07 IMPRESSION: No demonstrated fracture, dislocation, or destructive osseous lesion. Electronically Signed: Angel Burks MD at 2:42 EDT , Chest X-Ray 05/01/24 01:08 IMPRESSION: No evidence for acute cardiopulmonary pathology. Electronically Signed: Angel Burks MD at 2:47 EDT , Discharge Plan Triage Chief Complaint: Edema Other Complaint: Complaint ED Provider: Hogn Espinal Dx/Rx/DC Orders Clinical Impression: Bilateral cellulitis of lower leg, Lower extremity edema, History of chronic CHF, Acute diarrhea, Hematochezia Instructions: ED Cellulitis, ED Diarrhea, Unknown Cause Prescriptions: New doxycycline monohydrate 100 mg tablet 100 mg PO BID 10 Days Qty: 20 0RF No Action buspirone 10 mg tablet 20 mg PO BID vitamin B complex Tablet 1 tab PO DAILY nitroglycerin 0.4 mg tablet, sublingual 0.4 mg SUBLINGUAL Q5M PRN (Reason: Angina pain) Qty: 25 3RF insulin NPH isoph U-100 human 100 unit/mL suspension See Rx Instructions SC BID Rx Instructions: 56 units in am, 44 units in hs; omeprazole 40 mg capsule,delayed release(DR/EC) 40 mg PO BID glyburide 1.25 mg tablet 1.25 mg PO BID carvedilol 25 mg tablet 25 mg PO BID Qty: 180 3RF Rx Instructions: must administer with a meal/food clotrimazole-betamethasone 1-0.05 % cream 1 applic topical BID 28 Days Qty: 45 1RF metformin 1,000 MG tablet 1,000 mg PO BIDCM montelukast 10 MG tablet 10 mg PO QHS pramipexole 1 mg tablet 2 mg PO QHS Patient Comments: 1 mg PO 2 tablets by mouth at bedtime Rx Instructions: 1 mg PO 2 tablets by mouth at bedtime fluticasone propionate 50 mcg/actuation spray,suspension 1 spray INTRANASAL DAILY PRN (Reason: nasal spray) alprazolam 0.25 mg tablet 0.25 mg PO DAILY PRN (Reason: anxiety) Patient Comments: for anxiety acetaminophen 325 MG tablet 325 - 650 mg PO Q6H PRN PRN (Reason: Pain) 0RF aspirin 81 MG tablet 81 mg PO DAILY@0800 Qty: 30 0RF magnesium oxide 400 MG tablet 400 mg PO DAILY coenzyme Q10 100 MG capsule 100 mg PO DAILY cholecalciferol (vitamin D3) 50 mcg (2,000 unit) capsule 2,000 unit PO DAILY furosemide 40 mg tablet 80 mg PO DAILY Rx Instructions: takes 80mg in the am and 40mg in the afternoon prednisone 20 mg tablet 40 mg PO DAILY Qty: 8 0RF isosorbide mononitrate 30 mg tablet extended release 24 hr 30 mg PO DAILY Qty: 90 3RF clopidogrel 75 mg tablet 75 mg PO DAILY Qty: 90 3RF fluticasone propion-salmeterol [Wixela Inhub] 500-50 mcg/dose blister with device 1 inh inhalation BID Qty: 60 3RF albuterol sulfate [Ventolin HFA] 90 mcg/actuation HFA aerosol inhaler 2 puff INHALATION Q4H PRN (Reason: shortness of breath or wheezing) Qty: 18 6RF pravastatin 40 mg tablet 40 mg PO DAILY Qty: 90 3RF Other Ambulatory Orders: ENTERIC PATHOGEN PANEL STOOL (Routine) Timeframe: 3 Days Facility: [facility] - Location: Laboratory Ordered By: Dr. Hong Espinal CDIFF (PCR) (Routine) Timeframe: 3 Days Facility: [facility] - Location: Laboratory Ordered By: Dr. Hong Espinal Primary Care Provider: Maya Pradhan Referrals: Maya Pradhan DO [Primary Care Provider] - 3-5 Days if not improving (Follow-up with your foot doctor as scheduled next week; if you continue to have more rectal bleeding that seems significant, return to the ER for reevaluation) Print Language: Qatari Disposition Disposition: Home, Self Care
[2024-05-01 01:46] LABS: Absolute Lymphocyte Count 1.35 X10^3/uL (0.83-4.51); Absolute Neutrophil Count 5.8 X10^3/uL (2.0-7.7); Basophil# 0.03 X10^3/uL; Basophil% 0.3 % (0-1); Eosinophils% 1.1 % (0-5); Hematocrit 39.5 % (40-54); Hemoglobin 11.8 g/dL (13.0-16.5); Lymphocyte # 1.35 X10^3/ul (0.83-4.51); Lymphocyte % 15.4 % (19-41); Mean Corp Hgb Conc 29.9 g/dL (32-36); Mean Corpuscular Hgb 24.2 pg (27.0-32.0); Mean Corpuscular Volume 81.1 fL (80-94); Mean Platelet Vol. 9.8 fl (6.2-12.0); Monocyte# 1.46 X10^3/uL; Monocyte% 16.7 % (0-10); NRBC Flagged by Analyzer 0 % (0-5); Neutrophil # 5.79 X10^3/uL (2.7-7.7); Neutrophil % 66.2 % (47-70); Platelet Count 238 K/mm3 (150-450); RBC Distribution Width CV 15.8 % (11.6-14.6); RBC Distribution Width SD 46.3 fl (35.1-43.9); Red Blood Count 4.87 M/mm3 (4.6-6.2); White Blood Count 8.8 K/mm3 (4.4-11.0)
[2024-05-01 01:49] VITALS: BP 110/66; PULSE 83; RESP 19; O2SAT 94
[2024-05-01 01:52] VITALS: BP 110/66; PULSE 84; RESP 19; TEMP 36.8; O2SAT 94
[2024-05-01 02:04] LABS: Anion Gap 5 (5-15); BUN 16 mg/dL (7-18); BUN/Creat Ratio 15.1 RATIO (10-20); Calcium,Total 8.6 mg/dL (8.5-10.1); Chloride 91 mmol/L (98-107); Creatinine, Serum 1.06 mg/dL (0.70-1.30); EST Glomerular Filtration Rate 73 mL/min (>60); Est Glom Filt Rate - Afr Amer 88 mL/min (>60); Estimated Creatinine Clearance 77.73 ml/min; Glucose 102 mg/dL (74-106); Sodium Level 132 mmol/L (136-145); Troponin-I HS 6 pg/mL (3.0-78.0)
[2024-05-01 02:09] LABS: BNP,B-Type NATRIURETIC PEPTIDE 70.5 pg/mL (0-100)
[2024-05-01] MEDS: Cefepime HCl 2 GM in 0.9% Normal Saline (100mL MB+) 100 ML IV (02:10)
[2024-05-01 03:00] VITALS: BP 101/83; PULSE 84; RESP 19; O2SAT 98
[2024-05-01 03:16] VITALS: BP 101/83; PULSE 84; RESP 19; TEMP 36.2; O2SAT 98
[2024-05-01] MEDS: Doxycycline 100 MG CAPSULE PO (03:23)
== END 2024-05-01 03:43 | disposition home or self-care (01) ==
PROVIDERS: Emergency Provider Emergency Medicine; PCP Family Medicine; Visit Provider Emergency Medicine
DX: R60.0 Localized edema (principal); I11.0 Hypertensive heart disease with heart failure; I50.9 Heart failure, unspecified; J44.9 Chronic obstructive pulmonary disease, unspecified; E11.9 Type 2 diabetes mellitus without complications; E78.5 Hyperlipidemia, unspecified; Z79.82 Long term (current) use of aspirin; I25.10 Atherosclerotic heart disease of native coronary artery without angina pectoris; L03.116 Cellulitis of left lower limb; L03.115 Cellulitis of right lower limb; Z79.02 Long term (current) use of antithrombotics/antiplatelets; I25.2 Old myocardial infarction; Z79.84 Long term (current) use of oral hypoglycemic drugs; Z79.899 Other long term (current) drug therapy; F41.9 Anxiety disorder, unspecified; J45.909 Unspecified asthma, uncomplicated; Z79.51 Long term (current) use of inhaled steroids; Z95.5 Presence of coronary angioplasty implant and graft; Z98.52 Vasectomy status; Z90.49 Acquired absence of other specified parts of digestive tract; R19.7 Diarrhea, unspecified; K92.1 Melena
CPT/HCPCS: 71046; 73590; 80048; 83880; 84484; 85025; 86850; 86900; 86901; 93005; 96365; 96366; 99284; J7050; A4216

== ENCOUNTER → 2024-05-04 | Outpatient (CLI) | payer MEDICARE, SELFPAY ==
[2024-04-04 08:21] VITALS: BMI 38.2
== END | disposition home or self-care (01) ==
PROVIDERS: PCP Family Medicine; Referring Provider Podiatrist; Visit Provider Podiatrist
DX: L97.322 Non-pressure chronic ulcer of left ankle with fat layer exposed (principal)
CPT/HCPCS: 87070; 87075; 87077; 87186; 87205

== ENCOUNTER 2024-05-06 02:57 | Inpatient (IN) | payer MEDICARE, SELFPAY ==
[2024-04-04 08:21] VITALS: BMI 38.2
[2024-05-06] VITALS (38 sets, daily range): BP systolic 76–135; BP diastolic 40–86; PULSE 78–90; RESP 10–32; TEMP 36.1–38.4; O2SAT 87–100; BMI 40.4; BMI 39.4
--- NOTE | 2024-05-06 03:50 | CT_ITS ---
We are attempting to reach an attending provider to discuss findings. An addendum with communication details will be sent when the communication is complete. INDICATION: upper back/ posterior rib trauma,please evaluate tspine EXAMINATION: CT CHEST WITHOUT CONTRAST - CT Chest W/O Contrast Injection TECHNIQUE: Helically acquired images were obtained of the chest. A radiation dose optimization technique was used for this scan. IV Contrast dosage and agent: None. COMPARISON: None. FINDINGS: LUNGS, PLEURA AND LARGE AIRWAYS: No airspace consolidation, effusion, pneumothorax. Diffuse bilateral somewhat dependent subsegmental atelectasis. THYROID: No thyroid lesions. HEART AND PERICARDIUM: Heart size is normal. No pericardial effusion. Severe multivessel calcified coronary atherosclerosis. VESSELS: Aortic atherosclerosis without ectasia or intramural hematoma.. MEDIASTINUM AND ELIZABETH: No mediastinal or hilar adenopathy. Esophagus is unremarkable. No hiatal hernia. UPPER ABDOMEN: Fatty replacement of the pancreas.. BONES: T8 anterior-inferior endplate vertebral body extension fracture with 2 mm separation, sagittal image 192 and coronal image 209. No evidence of fracture extension to the posterior wall or posterior elements. No gross posterior thoracic subcutaneous soft tissue edema. No gross spinal stenosis. Normal thoracic vertebral alignment. Sequela of old left lateral 10th rib fracture. CT/Chest without Contrast IMPRESSION: T8 anterior inferior vertebral body corner extension fracture with 2 mm displacement. No evidence of posterior element fracture or displacement Electronically Signed: Arturo Hagen MD at 5:56 EDT ,
--- NOTE | 2024-05-06 03:50 | CT_ITS ---
INDICATION: injury EXAMINATION: CT BRAIN - CT Head or Brain W/O Contrast Injection TECHNIQUE: Multiple axial images were obtained of the head without intravenous contrast. A radiation dose optimization technique was used for this scan. IV Contrast dosage and agent: None. COMPARISON: July 26, 2023 FINDINGS: BRAIN PARENCHYMA: No intra- or extra-axial hemorrhage. No evidence of acute infarct. No intracranial mass or mass effect. Mild periventricular hypodense chronic small vessel white matter ischemic change. There is preservation of the trivedi/white matter interface. Posterior fossa structures are unremarkable. CSF SPACES: Mild global cerebral volume loss. No hydrocephalus. Basal cisterns are patent. CALVARIUM, SKULL BASE, PARANASAL SINUSES AND MASTOID AIR CELLS: No acute osseous finding. Mild paranasal sinus mucoperiosteal thickening. Mastoid air cells are clear. ORBITS: Both globes, extraocular muscles, optic nerves and retrobulbar fat appear unremarkable. ASPECTS Score for Acute Strokes: 10 CT/Brain/Head without Contrast IMPRESSION: No CT evidence of acute intracranial hemorrhage or injury. Electronically Signed: Arturo Hagen MD at 5:32 EDT ,
--- NOTE | 2024-05-06 03:50 | CT_ITS ---
This INDICATION: injury EXAMINATION: CT CERVICAL SPINE - CT Spine Cervical W/O Contrast Injection TECHNIQUE: Helically acquired images were obtained of the cervical spine. 2D reformatted images were reviewed. A radiation dose optimization technique was used for this scan. IV Contrast dosage and agent: None. COMPARISON: None. FINDINGS: VERTEBRAE: No fracture or acute compression deformity. No discrete lytic or blastic abnormality. Diffuse endplate degenerative change with mid cervical anterior bridging osteophytes. Mild degenerative straightening of the normal cervical lordosis.. Normal craniocervical junction and cervicothoracic junction. DISCS and SPINAL CANAL: diffuse disc height loss with small posterior disc osteophyte complex causing mild spinal canal and moderate bilateral neural foraminal stenosis. . NECK SOFT TISSUES: No prevertebral soft tissue swelling. There is no cervical adenopathy. LUNG APICES: Clear. CT/Spine Cervical without Contras IMPRESSION: No evidence of acute cervical spinal fracture or spondylolisthesis. Moderate spondylosis as above. Electronically Signed: Arturo Hagen MD at 5:42 EDT ,
[2024-05-06] MEDS: Morphine 4 MG/ML Syringe IV (04:03)
[2024-05-06] MEDS: Ondansetron 4 MG/2 ML Vial IV (04:03)
--- NOTE | 2024-05-06 04:06 | ED.VIS.FALL ---
HPI HPI - Fall History of Present Illness Chief Complaint: Fall Informant: patient and EMS Narrative Narrative: 73-year-old male presenting to the emergency room with a chief complaint of fall. Patient states that he got up to get a blanket and he tripped and fell on some objects on the ground. He states he struck the back of his head neck and upper back on the stone hearth. No reported loss of consciousness. He denies any known bleeding. He is on clopidogrel at all. Patient denies any arm or leg symptoms. No low back pain. He chronically wears home oxygen due to bad lungs. States that he has chronic lower extremity swelling and they are trying to figure out what that is from. He does have a history of CHF as well as venous insufficiency. [facility] Medical History Tinea cruris History of chronic CHF Varicose veins of both legs with edema Lower extremity edema 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 disease Carotid bruit Neck pain Shortness of breath Abnormal nuclear stress test Essential hypertension Inappropriate sexual behavior Hypomagnesemia Muscle cramps Edema KRISTI (obstructive sleep apnea) Chronic diastolic (congestive) heart failure Atherosclerotic heart disease of [place] coronary artery without angina pectoris History of ST elevation myocardial infarction (STEMI) (07/11/17) Asthma IBS (irritable bowel syndrome) 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.9) Restless legs Hyperlipidemia Diabetes mellitus, type 2 Anxiety Home Medications ?Medication ?Instructions ?Recorded ?Last Taken ?Type metformin 1,000 mg tablet 1,000 mg PO BIDCM diabetes 01/17/16 01/25/24 History montelukast 10 mg tablet 10 mg PO QHS allergies 01/17/16 12/07/18 History acetaminophen 325 mg tablet 325 - 650 mg (1 - 2 x 325 mg) PO 07/14/17 Unknown Rx Q6H PRN PRN Pain aspirin 81 mg tablet,delayed 81 mg PO DAILY@0800 #30 tabs 07/14/17 01/26/24 Rx release pramipexole 1 mg tablet 2 mg PO QHS headache 05/07/18 12/08/18 21:00 History coenzyme Q10 100 mg capsule 100 mg PO DAILY supplement 12/08/18 12/04/18 History magnesium oxide 400 mg PO DAILY supplement 12/08/18 12/08/18 08:00 History fluticasone propionate 50 1 spray intranasal DAILY PRN nasal 04/05/20 Unknown History mcg/actuation nasal spray spray,suspension alprazolam 0.25 mg tablet 0.25 mg PO DAILY PRN anxiety 10/12/20 Unknown History nitroglycerin 0.4 mg sublingual 0.4 mg sublingual Q5M PRN Angina 11/29/21 Unknown Rx tablet pain #25 tabs vitamin B complex 1 tab PO DAILY 03/14/22 Unknown History isosorbide mononitrate 30 mg 30 mg PO DAILY #90 tabs 07/05/23 Unknown Rx tablet,extended release 24 hr buspirone 10 mg tablet 20 mg PO BID Anxiety 08/20/23 Unknown History insulin NPH isoph U-100 human 100 See Rx Instructions subcut BID 08/20/23 Unknown History unit/mL subcutaneous suspension diabetes clopidogrel 75 mg tablet 75 mg PO DAILY #90 tabs 10/26/23 01/26/24 Rx albuterol sulfate 90 mcg/actuation 2 puff inhalation Q4H PRN 10/28/23 Unknown Rx aerosol inhaler (Ventolin HFA) shortness of breath or wheezing #18 grams fluticasone 500 mcg-salmeterol 50 1 inh inhalation BID #60 ea 10/28/23 Unknown Rx mcg/dose blistr powdr for inhalation (Wixela Inhub) clotrimazole-betamethasone 1 1 applic topical BID 4 weeks #45 11/17/23 Unknown Rx %-0.05 % topical cream grams carvedilol 25 mg tablet 25 mg PO BID #180 tabs 12/07/23 Unknown Rx cholecalciferol (vitamin D3) 50 2,000 unit PO DAILY supplement 12/07/23 Unknown History mcg (2,000 unit) capsule glyburide 1.25 mg tablet 1.25 mg PO BID 12/07/23 01/25/24 History omeprazole 40 mg capsule,delayed 40 mg PO BID 12/07/23 Unknown History release pravastatin 40 mg tablet 40 mg PO DAILY #90 TABLETS 02/09/24 Unknown Rx furosemide 40 mg tablet 80 mg PO DAILY 04/01/24 Unknown History prednisone 20 mg tablet 40 mg (2 x 20 mg) PO DAILY #8 04/01/24 Unknown Rx TABLETS doxycycline monohydrate 100 mg 100 mg PO BID 10 days #20 tabs 05/01/24 Unknown Rx tablet Allergy/AdvReac Type Severity Reaction Status Date / Time Penicillins Allergy Severe Anaphylaxis Verified 05/06/24 02:58 quinine sulfate (From Quine) Allergy Severe passed out Verified 05/06/24 02:58 benzocaine (From Cetacaine) Allergy Swelling Verified 05/06/24 02:58 butamben (From Cetacaine) Allergy Swelling Verified 05/06/24 02:58 ciprofloxacin HCl (From Allergy Hives Verified 05/06/24 02:58 Cipro) clarithromycin (From Biaxin) Allergy Swelling Verified 05/06/24 02:58 exenatide (From Byetta) Allergy Rash Verified 05/06/24 02:58 folic acid (From Allergy Rash Verified 05/06/24 02:58 Proferrin-Forte) hyoscyamine sulfate (From Allergy Rash Verified 05/06/24 02:58 Levsin) iron heme polypeptide (From Allergy tongue Verified 05/06/24 02:58 Proferrin-Forte) swelling naproxen (From Naprosyn) Allergy Rash Verified 05/06/24 02:58 tetracaine (From Cetacaine) Allergy throat Verified 05/06/24 02:58 swelled shut venlafaxine HCl (From Allergy tongue Verified 05/06/24 02:58 Effexor) swelling ezetimibe (From Zetia) AdvReac Severe Myalgias, Verified 05/06/24 02:58 diarrhea mold AdvReac Severe PT UNSURE Verified 05/06/24 02:58 OF REACTION niacin (From Niaspan AdvReac Severe PT UNSURE Verified 05/06/24 02:58 Extended-Release) OF REACTION procainamide AdvReac Severe Anaphylactic/Resp. Verified 05/06/24 02:58 Distress atorvastatin calcium (From AdvReac Intermediate Mylagias Verified 05/06/24 02:58 Lipitor) rosuvastatin calcium (From AdvReac Intermediate Myalgias Verified 05/06/24 02:58 Crestor) diphenhydramine HCl (From AdvReac Restlessnes Verified 05/06/24 02:58 Benadryl) s Family History Mother Diabetes Hypertension Father Hypotension Brother Hypertension HLD (hyperlipidemia) Grandmother Diabetes Grandfather CVA (cerebral vascular accident) Diabetes Brother Cancer lung Surgical History Stented coronary artery (~01/26/24) History of left heart catheterization (12/06/21) History of coronary artery stent placement (04/13/19) History of left knee surgery History of dental surgery History of vasectomy Status post excision of lipoma History of appendectomy History of exploratory laparotomy History of cholecystectomy Social History Smoking Status: Never smoker second hand exposure: No alcohol intake: never substance use type: does not use caffeine: No seatbelt use: always do you feel safe at home: Yes ROS ROS ED Constitutional Constitutional ED: Denies chills, fever(s) or weight loss Eyes Eyes: Denies change in vision or diplopia ENT ENT ED: Denies ear pain, rhinorrhea or sore throat Cardiovascular Cardiovascular: Denies chest pain, orthopnea, palpitations or racing heartbeat Respiratory/Chest Respiratory/Chest: Denies cough, dyspnea or orthopnea Gastrointestinal Gastrointestinal: Denies abdominal pain, diarrhea, nausea or vomiting Genitourinary Genitourinary ED: Denies dysuria, hematuria or urinary frequency Musculoskeletal Musculoskeletal: Reports back pain and neck pain; Denies arthralgias or myalgias Integumentary Denies abscess or rash Neurologic Neurologic: Reports headache(s); Denies paresthesias or weakness Psychiatric Psychiatric: Denies anxiety, depression, suicidal ideation or suicidal thoughts Endocrine Endocrinology: Denies polydipsia, polyphagia or polyuria Allergic/Immunologic Allergic/Immunologic ED: Denies mouth swelling, tongue swelling or urticaria EXAM Physical Exam Const Vital Signs: 05/06/24 02:57 05/06/24 04:18 05/06/24 04:57 Temperature 97 F L Temperature Source Temporal Pulse Rate 83 86 Respiratory Rate 24 H 29 H Blood Pressure 122/75 H 134/86 H Blood Pressure Mean 90 102 Pulse Ox 92 92 92 Oxygen Delivery Method Nasal Cannula Nasal Cannula Nasal Cannula Oxygen Flow Rate (L/min) 3 4 4 05/06/24 06:00 Temperature Temperature Source Pulse Rate 85 Respiratory Rate 17 Blood Pressure 132/67 H Blood Pressure Mean 88 Pulse Ox 96 Oxygen Delivery Method Nasal Cannula Oxygen Flow Rate (L/min) 4 Positive well nourished and well developed General Appearance ED: well developed and NAD HEENT Reports normocephalic, head/scalp atraumatic and moist mucous membranes HEENT Narrative: No hemotympanums. No scalp contusion hematoma or abrasions noted Eyes PERRL and EOMs intact bilaterally Neck full ROM, no lymphadenopathy, supple and no JVD Neck Narrative: Generalized tenderness to palpation over the posterior musculature of the neck Chest Wall inspection of chest normal and palpation of chest normal Resp normal respiratory effort and clear to auscultation bilaterally Cardio regular rate, regular rhythm and no murmurs GI normal to inspection, nondistended, normoactive bowel sounds and non-tender Palpation: soft Back/Spine no CVA tenderness and normal ROM Back/Spine Narrative: Patient reports tenderness to palpation over the mid to upper thoracic spine and posterior ribs bilaterally/paraspinal musculature. No palpable bony crepitance felt or subcutaneous air. Extremity normal to inspection General Extremety ED: Negative for edema General Extremity: Negative for edema Neuro oriented x3 and CN's II-XII intact bilaterally Sensorium / Orientation: alert Motor Exam: strength 5/5 throughout Psych mental status grossly normal Mood & Affect: Negative for depressed or tearful Skin no rashes or lesions noted and no wounds MDM MDM MDM Narrative Medical decision making narrative: Differential diagnosis includes intracranial hemorrhage hematoma skull fracture cervical myofascial strain cervical fracture thoracic fracture rib fracture hemothorax pulmonary contusion Patient received pain medication. He is given supplemental oxygen and placed on the monitor. He has sleep apnea and does not have the machine with him so he was having periods of hypoxia due to the sleep apnea. CT of the brain is negative for intracranial hemorrhage. CT of the cervical spine is negative for acute. CT of the chest was obtained. I do not see an obvious rib fracture hemothorax pulmonary contusion or pneumothorax. T8 is noted to have a inferior anterior fracture with 2 mm of fracture displacement. There is no posterior element fracture or displacement noted. I spoke with Dr. Jimenez from orthopedic spine. He is happy to consult on the case. The patient will be admitted due to his inability to get up out of the bed due to pain. I have asked family if they can bring his CPAP machine and since it is set to his settings and he is familiar with it. History & Record Review Discussion w/independent historian: Patient and Family Lab Data Attestation: I reviewed the patient's lab results. Labs: Laboratory Results - last 24 hr 05/06/24 04:16 WBC 8.2 RBC 4.58 L Hgb 10.9 L Hct 36.8 L MCV 80.3 MCH 23.8 L MCHC 29.6 L RDW Std Deviation 45.4 H RDW Coeff of Jeanette 15.8 H Plt Count 273 MPV 10.3 Immature Gran % (Auto) 0.400 Neut % (Auto) 73.4 H Lymph % (Auto) 10.8 L [place] % (Auto) 13.6 H Eos % (Auto) 1.3 Baso % (Auto) 0.5 Absolute Neuts (auto) 6.0 Absolute Lymphs (auto) 0.89 Nucleated RBC % 0 Sodium 128 L Potassium 4.8 Chloride 90 L Carbon Dioxide 34.0 H Anion Gap 4 L BUN 21 H Creatinine 0.82 Estim Creat Clear Calc 102.92 Est GFR (MDRD) Af Amer 118 Est GFR (MDRD) Non-Af 98 BUN/Creatinine Ratio 25.6 H Glucose 69 L Calcium 8.8 Radiography Diagnostic Testing: Clinical Impression(s) from Imaging Studies Brain CT 05/06/24 03:50 IMPRESSION: No CT evidence of acute intracranial hemorrhage or injury. Electronically Signed: Arturo Hagen MD at 5:32 EDT Reading Location ID and State: [facility] / [place] Tel , Service support , Cervical Spine CT 05/06/24 03:50 IMPRESSION: No evidence of acute cervical spinal fracture or spondylolisthesis. Moderate spondylosis as above. Electronically Signed: Arturo Hagen MD at 5:42 EDT , Chest CT 05/06/24 03:50 IMPRESSION: T8 anterior inferior vertebral body corner extension fracture with 2 mm displacement. No evidence of posterior element fracture or displacement Electronically Signed: Arturo Hagen MD at 5:56 EDT Reading Location ID and State: [facility] / [place] Tel , Service support , ADDENDUM: 05/06/24 0607 IMPRESSION: T8 anterior inferior vertebral body corner extension fracture with 2 mm displacement. No evidence of posterior element fracture or displacement N.B. : The above Results were Read Back by Arturo Hagen MD to Ricardo Castro DO, and understanding confirmed on 05/06/2024 06:01:04 (ET). Electronically Signed: Arturo Hagen MD at 5:56 EDT , Discharge Plan Dx/Rx/DC Orders Clinical Impression: Fall, Closed fracture of T8 vertebra, Acute cervical myofascial strain, Head injury, Back pain Disposition Disposition: Acute Care Hospital [facility]
[2024-05-06 06:42] LABS: Absolute Lymphocyte Count 0.89 X10^3/uL (0.83-4.51); Basophil# 0.04 X10^3/uL; Basophil% 0.5 % (0-1); Eosinophil# 0.11 X10^3/uL; Eosinophils% 1.3 % (0-5); Hematocrit 36.8 % (40-54); Hemoglobin 10.9 g/dL (13.0-16.5); Lymphocyte # 0.89 X10^3/ul (0.83-4.51); Lymphocyte % 10.8 % (19-41); Mean Corp Hgb Conc 29.6 g/dL (32-36); Mean Corpuscular Hgb 23.8 pg (27.0-32.0); Mean Corpuscular Volume 80.3 fL (80-94); Mean Platelet Vol. 10.3 fl (6.2-12.0); Monocyte# 1.12 X10^3/uL; Monocyte% 13.6 % (0-10); NRBC Flagged by Analyzer 0 % (0-5); Neutrophil # 6.03 X10^3/uL (2.7-7.7); Neutrophil % 73.4 % (47-70); Platelet Count 273 K/mm3 (150-450); RBC Distribution Width CV 15.8 % (11.6-14.6); RBC Distribution Width SD 45.4 fl (35.1-43.9); Red Blood Count 4.58 M/mm3 (4.6-6.2); White Blood Count 8.2 K/mm3 (4.4-11.0)
[2024-05-06 06:55] LABS: Anion Gap 4 (5-15); BUN 21 mg/dL (7-18); BUN/Creat Ratio 25.6 RATIO (10-20); Calcium,Total 8.8 mg/dL (8.5-10.1); Chloride 90 mmol/L (98-107); Creatinine, Serum 0.82 mg/dL (0.70-1.30); EST Glomerular Filtration Rate 98 mL/min (>60); Est Glom Filt Rate - Afr Amer 118 mL/min (>60); Estimated Creatinine Clearance 102.92 ml/min; Glucose 69 mg/dL (74-106); Potassium 4.8 mmol/L (3.5-5.1); Sodium Level 128 mmol/L (136-145)
--- NOTE | 2024-05-06 07:14 | PCM.HP.STD ---
HPI - General General Date of Admission: 05/06/24 Date of Service: 05/06/24 Chief Complaint: mechanical fall HPI Narrative BLANCA GILL, is a 73 M with a PMH as outlined who presents via the ED on 05/06/2024 with a complaint of mechanical fall. He got up to go get a blanket and fell down after tripping over some objects on the floor. He says upon falling, he hit his back and head on the stone fireplace. He denied any loss of consciousness, but admitted to significant pain. HE is not on any blood thinners. He has KRISTI and says he wears oxygen at home and also uses a BIPAP. HE also has a history of CHF. Vitals in the ED were BP of 132/67, OK of 85, RR of 17 and he was saturating at 96% on 4L of oxygen. CBC shwoed hb of 10.9, wbc of 8,2 and platelets of 273. CHemistry showed sodium of 128, potassium of 4.8, bicarb of 34 and Cr of 0.82. CT brain showed no evidence of acute intracranial hemorrhage or injury and cervical spine CT showed no evidence of acute cervical spinal fracture or spondylolisthesis and moderate spondylosis. CT chest showed T8 anterior inferior vertebral body corner extension fracture with 2mm displacement. Patient was also noted to be getting hypoxic in the ED when he fell asleep, and this was thought to be due to his sleep apnea. His daughter was therefore going to bring his CPAP machine in. He is being admitted to be managed for debility due to mechanical fall with T8 anterior fracture, as well as hypoxia due to sleep apnea. Patient was initially admitted to the floor and this hospitalist saw patient on Medr 3. At time of review patient was very lethargic and confused. There was concern for acute metabolic encephalopathy due to hypercapnia and so a stat ABG was ordered. ABG done at that time showed acute hypercapnic respiratory failure with pH of 7.11 and pCO2 of 109.8 as well as pO2 of 70. Patient was placed on BiPAP as he did have a history of sleep apnea. However he was not responding to the BiPAP and his tidal volumes were very low so he was emergently transferred to the ICU after repeat ABG after an hour showed pCO2 of 102.8 and pH of 7.14. He was initially admitted under observation on account of the debility due to mechanical fall which was his initial diagnosis but this was switched to inpatient and he has been managed for acute hypercapnic respiratory failure in the setting of known sleep apnea. [facility] [place] Medical History Tinea cruris History of chronic CHF Varicose veins of both legs with edema Lower extremity edema 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 disease Carotid bruit Neck pain Shortness of breath Abnormal nuclear stress test Essential hypertension Inappropriate sexual behavior Hypomagnesemia Muscle cramps Edema KRISTI (obstructive sleep apnea) Chronic diastolic (congestive) heart failure Atherosclerotic heart disease of [place] coronary artery without angina pectoris History of ST elevation myocardial infarction (STEMI) (07/11/17) Asthma IBS (irritable bowel syndrome) 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.9) Restless legs Hyperlipidemia Diabetes mellitus, type 2 Anxiety Home Medications ?Medication ?Instructions ?Recorded ?Last Taken ?Type metformin 1,000 mg tablet 1,000 mg PO BIDCM diabetes 01/17/16 01/25/24 History montelukast 10 mg tablet 10 mg PO QHS allergies 01/17/16 12/07/18 History acetaminophen 325 mg tablet 325 - 650 mg (1 - 2 x 325 mg) PO 07/14/17 Unknown Rx Q6H PRN PRN Pain aspirin 81 mg tablet,delayed 81 mg PO DAILY@0800 #30 tabs 07/14/17 01/26/24 Rx release pramipexole 1 mg tablet 2 mg PO QHS headache 05/07/18 12/08/18 21:00 History coenzyme Q10 100 mg capsule 100 mg PO DAILY supplement 12/08/18 12/04/18 History magnesium oxide 400 mg PO DAILY supplement 12/08/18 12/08/18 08:00 History fluticasone propionate 50 1 spray intranasal DAILY PRN nasal 04/05/20 Unknown History mcg/actuation nasal spray spray,suspension alprazolam 0.25 mg tablet 0.25 mg PO DAILY PRN anxiety 10/12/20 Unknown History nitroglycerin 0.4 mg sublingual 0.4 mg sublingual Q5M PRN Angina 11/29/21 Unknown Rx tablet pain #25 tabs vitamin B complex 1 tab PO DAILY 03/14/22 Unknown History isosorbide mononitrate 30 mg 30 mg PO DAILY #90 tabs 10/22/23 Unknown Rx tablet,extended release 24 hr buspirone 10 mg tablet 20 mg PO BID Anxiety 08/20/23 Unknown History insulin NPH isoph U-100 human 100 See Rx Instructions subcut BID 08/20/23 Unknown History unit/mL subcutaneous suspension diabetes clopidogrel 75 mg tablet 75 mg PO DAILY #90 tabs 10/26/23 01/26/24 Rx albuterol sulfate 90 mcg/actuation 2 puff inhalation Q4H PRN 10/28/23 Unknown Rx aerosol inhaler (Ventolin HFA) shortness of breath or wheezing #18 grams fluticasone 500 mcg-salmeterol 50 1 inh inhalation BID #60 ea 10/28/23 Unknown Rx mcg/dose blistr powdr for inhalation (Wixela Inhub) clotrimazole-betamethasone 1 1 applic topical BID 4 weeks #45 11/17/23 Unknown Rx %-0.05 % topical cream grams carvedilol 25 mg tablet 25 mg PO BID #180 tabs 12/07/23 Unknown Rx cholecalciferol (vitamin D3) 50 2,000 unit PO DAILY supplement 12/07/23 Unknown History mcg (2,000 unit) capsule glyburide 1.25 mg tablet 1.25 mg PO BID 12/07/23 01/25/24 History omeprazole 40 mg capsule,delayed 40 mg PO BID 12/07/23 Unknown History release pravastatin 40 mg tablet 40 mg PO DAILY #90 TABLETS 02/09/24 Unknown Rx furosemide 40 mg tablet 80 mg PO DAILY 04/01/24 Unknown History prednisone 20 mg tablet 40 mg (2 x 20 mg) PO DAILY #8 04/01/24 Unknown Rx TABLETS doxycycline monohydrate 100 mg 100 mg PO BID 10 days #20 tabs 05/01/24 Unknown Rx tablet Allergy/AdvReac Type Severity Reaction Status Date / Time Penicillins Allergy Severe Anaphylaxis Verified 05/06/24 02:58 quinine sulfate (From Quine) Allergy Severe passed out Verified 05/06/24 02:58 benzocaine (From Cetacaine) Allergy Swelling Verified 05/06/24 02:58 butamben (From Cetacaine) Allergy Swelling Verified 05/06/24 02:58 ciprofloxacin HCl (From Allergy Hives Verified 05/06/24 02:58 Cipro) clarithromycin (From Biaxin) Allergy Swelling Verified 05/06/24 02:58 exenatide (From Byetta) Allergy Rash Verified 05/06/24 02:58 folic acid (From Allergy Rash Verified 05/06/24 02:58 Proferrin-Forte) hyoscyamine sulfate (From Allergy Rash Verified 05/06/24 02:58 Levsin) iron heme polypeptide (From Allergy tongue Verified 05/06/24 02:58 Proferrin-Forte) swelling naproxen (From Naprosyn) Allergy Rash Verified 05/06/24 02:58 tetracaine (From Cetacaine) Allergy throat Verified 05/06/24 02:58 swelled shut venlafaxine HCl (From Allergy tongue Verified 05/06/24 02:58 Effexor) swelling ezetimibe (From Zetia) AdvReac Severe Myalgias, Verified 05/06/24 02:58 diarrhea mold AdvReac Severe PT UNSURE Verified 05/06/24 02:58 OF REACTION niacin (From Niaspan AdvReac Severe PT UNSURE Verified 05/06/24 02:58 Extended-Release) OF REACTION procainamide AdvReac Severe Anaphylactic/Resp. Verified 05/06/24 02:58 Distress atorvastatin calcium (From AdvReac Intermediate Mylagias Verified 05/06/24 02:58 Lipitor) rosuvastatin calcium (From AdvReac Intermediate Myalgias Verified 05/06/24 02:58 Crestor) diphenhydramine HCl (From AdvReac Restlessnes Verified 05/06/24 02:58 Benadryl) s Family History Mother Diabetes Hypertension Father Hypotension Brother Hypertension HLD (hyperlipidemia) Grandmother Diabetes Grandfather CVA (cerebral vascular accident) Diabetes Brother Cancer lung Surgical History Stented coronary artery (~01/26/24) History of left heart catheterization (12/06/21) History of coronary artery stent placement (04/13/19) History of left knee surgery History of dental surgery History of vasectomy Status post excision of lipoma History of appendectomy History of exploratory laparotomy History of cholecystectomy Social History Smoking Status: Never smoker second hand exposure: No alcohol intake: never substance use type: does not use caffeine: No seatbelt use: always do you feel safe at home: Yes ROS ROS Narrative patient was lethargic but could initially answer some questions. Constitutional Constitutional: Reports fatigue and malaise; Denies anorexia, chills or fever(s) Eyes Eyes: Denies change in vision ENT HEENT: Denies dysphagia or headache(s) Cardiovascular Cardiovascular: Reports dyspnea on exertion; Denies chest pain, edema, lightheadedness, orthopnea, rapid heart rate or syncope Respiratory/Chest Respiratory/Chest: Reports dyspnea; Denies cough, productive cough, shortness of breath at rest or shortness of breath with exertion Gastrointestinal Gastrointestinal: Denies constipation or diarrhea Genitourinary Genitourinary: Denies dysuria Musculoskeletal Musculoskeletal: Reports back pain; Denies neck pain Neurologic Neurologic: Reports confusion; Denies dizziness, focal weakness, headache(s), numbness, paresthesias, seizure-like activity, seizures or syncope Psychiatric Psychiatric: Denies anxiety or depression Hematologic/Lymphatic Hematologic/Lymphatic: Denies anemia Vital Signs Vital Signs Vital Signs: 05/06/24 02:57 05/06/24 04:18 05/06/24 04:57 Temperature 97 F L Temperature Source Temporal Pulse Rate 83 86 Respiratory Rate 24 H 29 H Blood Pressure 122/75 H 134/86 H Blood Pressure Mean 90 102 Pulse Ox 92 92 92 Oxygen Delivery Method Nasal Cannula Nasal Cannula Nasal Cannula Oxygen Flow Rate (L/min) 3 4 4 05/06/24 06:00 Temperature Temperature Source Pulse Rate 85 Respiratory Rate 17 Blood Pressure 132/67 H Blood Pressure Mean 88 Pulse Ox 96 Oxygen Delivery Method Nasal Cannula Oxygen Flow Rate (L/min) 4 Weight Weight: 266 lb 5.094 oz Body Mass Index (BMI) 40.4 Physical Exam Const Constitutional Narrative: Patient was alert but lethargic Orientation / Consciousness: lethargic HEENT normocephalic and head/scalp atraumatic HEENT Narrative: Dry oral mucous membranes Mouth: oral and palatal mucosa normal Eyes PERRL, EOMs intact bilaterally and conjunctivae normal Neck no lymphadenopathy and supple Resp Resp Narrative: diminished breath sounds bilaterally, no wheezes or crackles. On 5L of oxygen at time I initially reviewed him. Cardio regular rate, regular rhythm, S1 normal heart sound, S2 normal heart sound and no murmurs GI GI Narrative: abdomen distended tympanitic to percussion, no tenderness or organomegaly. Extremity normal to inspection, full ROM and no clubbing, cyanosis or edema Neuro moves all extremities Neuro Narrative: lethargic Sensorium / Orientation: awake Results Lab / Micro Data 05/06/24 04:16 05/06/24 14:55 Labs: Laboratory Results - last 24 hr 05/06/24 04:16: WBC 8.2, RBC 4.58 L, Hgb 10.9 L, Hct 36.8 L, MCV 80.3, MCH 23.8 L, MCHC 29.6 L, RDW Std Deviation 45.4 H, RDW Coeff of Jeanette 15.8 H, Plt Count 273, MPV 10.3, Immature Gran % (Auto) 0.400, Neut % (Auto) 73.4 H, Lymph % (Auto) 10.8 L, Sutter % (Auto) 13.6 H, Eos % (Auto) 1.3, Baso % (Auto) 0.5, Absolute Neuts (auto) 6.0, Absolute Lymphs (auto) 0.89, Nucleated RBC % 0, Sodium 128 L, Potassium 4.8, Chloride 90 L, Carbon Dioxide 34.0 H, Anion Gap 4 L, BUN 21 H, Creatinine 0.82, Estim Creat Clear Calc 102.92, Est GFR (MDRD) Af Amer 118, Est GFR (MDRD) Non-Af 98, BUN/Creatinine Ratio 25.6 H, Glucose 69 L, Calcium 8.8 Imaging Radiology Impression Brain CT 05/06/24 03:50 IMPRESSION: No CT evidence of acute intracranial hemorrhage or injury. Electronically Signed: Arturo Hagen MD at 5:32 EDT , Cervical Spine CT 05/06/24 03:50 IMPRESSION: No evidence of acute cervical spinal fracture or spondylolisthesis. Moderate spondylosis as above. Electronically Signed: Arturo Hagen MD at 5:42 EDT , Chest CT 05/06/24 03:50 IMPRESSION: T8 anterior inferior vertebral body corner extension fracture with 2 mm displacement. No evidence of posterior element fracture or displacement Electronically Signed: Arturo Hagen MD at 5:56 EDT Reading Location ID and State: [facility] / [place] Tel , Service support , ADDENDUM: 05/06/24 0607 IMPRESSION: T8 anterior inferior vertebral body corner extension fracture with 2 mm displacement. No evidence of posterior element fracture or displacement N.B. : The above Results were Read Back by Arturo Hagen MD to Ricardo Castro DO, and understanding confirmed on 05/06/2024 06:01:04 (ET). Electronically Signed: Arturo Hagen MD at 5:56 EDT Reading Location ID and State: [facility] / [place] Tel , Service support , Assessment & Plan Assessment/Plan (1) Acute hypercapnic respiratory failure due to obstructive sleep apnea: (2) Back pain: (3) Closed fracture of T8 vertebra: (4) Fall: PLAN: Plan #Acute on chronic hypercapnic respiratory failure likely due to COPD Patient was initially admitted with a complaint of debility due to mechanical fall and back pain with resultant T8 fracture. patient was initially hypoxic on admission, requiring 5L of oxygen. He was noted to be lethargic after he arrived on the floor, and stat ABG done showed hypercapnia, with pH of 7.11, pCO2 of 109.8. He was immediately placed on BIPAP, but was not improving. Repeat ABG after about an hour showed pCOs of 102, with pH of 7.14, pCO2 of 102.8 and pO2 of 114. Patient was emergently transferred to the ICU. He was continue on the BiPAP and was put on AVAPS setting. However his tidal volumes were very low and patient remained very lethargic. Repeat ABG done showed pH of 7.13 with pCO2 of 106.5 and pO2 of 76. At this point, decision was taken to emergently intubate patient. Patient was intubated on the floor. He had indicated he wanted to be full code at the time I reviewed him on the floor. Critical care consulted. Patient being diuresed with IV Lasix also. Breathing treatments bronchodilators. Orogastric tube inserted. On propofol and fentanyl drip. At this point it is not clear if patient's fall precipitated all this or he may have been hypercapnic and this had resulted in confusion resulted in him falling when he got out of bed. His granddaughter did tell me when she came up subsequently that patient had had problems with his lungs for quite a while and had been going from To But he had not improved. #Hyperkalemia: K on repeat BMP was 6.3. Kayexalate given. Will trend potassium. #Debility due to mechanical fall with resultant T8 fracture Patient got out of bed and fell and hit his head against the fireplace. He also hit his low back. CT of the brain showed no acute intracranial pathology. CT of the brain showed no acute cervical spinal fracture or spondylolisthesis and showed moderate spondylosis. Chest CT showed T8 anterior inferior vertebral body: Extension fracture with 2 mm displacement and no evidence of posterior element fracture or displacement. PT OT on board. Management will likely be nonoperative. Spine surgeon Dr. Manzanares was consulted from the ED. Currently on fentanyl drip on account of being intubated. #Chronic HFpEF Does not appear to be in exacerbation. BNP is not elevated. He is on p.o. Lasix 80 mg daily. Will switch to IV Lasix 40 mg daily. Monitor intake and output. Fluid restriction to 1500 cc daily. 2D echo ordered. Has known EF of 55% from echo done in March 2023. #History of sleep apnea: On BiPAP at home. He does follow with pulmonology and per their note he has not been compliant. The setting of his CPAP was at 11 cm of water. #History of type 2 diabetes mellitus: Hold metformin. Also on home dose of NPH insulin. Will hold that. Insulin sliding scale. ACT checks every 6 hourly as he is currently NPO. #Restless leg syndrome: Pramipexole #History of CAD s/p stents: He had stents inserted in the LAD in June 2017 and to the mid LAD in March 2019 as well as January 2024 on aspirin and statin as well as carvedilol and Plavix. #Depression: On buspirone DVT prophylaxis: lovenox Code status: full code Prior to patient being intubated I had discussed CODE STATUS with him and that he was lethargic he was able to understand what I was seen and I explained to him the differences between full code, DNR CCA and DNR CCA. Patient opted to be full code. When he was transferred to the ICU I subsequently discussed with his granddaughter who lives with him about his wishes and she stated that he had always wanted everything to be done. Total [id number] time 18 minutes. Charges/Coding Visit Charges Inpatient E&M: 79890 Init Hosp L3 Procedures Hospitalists Procedures: 35607 Advncd Care Plan 30 Min
--- NOTE | 2024-05-06 09:16 | NURSING ---
spoke with pharmacist Marlys, requesting meds OLIVER d/t hypoglycemia. unable to access from [employer]
[2024-05-06] MEDS: Dextrose 10%-Water 250 ML 999 ML IV ×3 (09:17→18:46)
[2024-05-06] MEDS: 0.9% Saline Lock 10 ML Syringe IV ×6 (09:18→21:35)
--- NOTE | 2024-05-06 09:21 | NURSING ---
ABG's done per CPS
--- NOTE | 2024-05-06 09:25 | NURSING ---
director housekeeping Rozina armijo
--- NOTE | 2024-05-06 09:26 | NURSING ---
unable to do admission questions not able to be done d/t pt still obtunded.
[2024-05-06] MEDS: 0.9% Normal Saline (250mL Bag) 250 ML 15 ML IV (09:31)
[2024-05-06 09:33] LABS: Allen Test Positive; Base Excess 5 mmol/L (-2 to +2); Bicarbonate 34.7 mmol/L (22-26); Blood Gas Specimen Type ART; Mode Not entered; O2 Delivery Device Cannula; PO2 70 mmHG (75-100); SITE R Radial; SO2 84 % (95-99); Total Carbon Dioxide 38 mmol/L; pCO2 109.8 mmHg (35-45); pH 7.11 (7.35-7.45)
[2024-05-06 09:35] LABS: Bedside Glucose 51 mg/dL (74-106)
--- NOTE | 2024-05-06 09:36 | NURSING ---
primary RN at bedside. reports OT 51. noted to be drowsy, does awaken to verbal stimuli and respiratory bedside getting ABGs, noted CPS had turned o2 up to 9L as was 87% on 5L. primary RN decreased back to 5L. hanging D10 as per policy. Dr. Pringle updated. placing patient on tele monitor.
--- NOTE | 2024-05-06 09:40 | NURSING ---
warehouse consultant updated on ABGs and orders from Dr. vasquez and possible transfer.
--- NOTE | 2024-05-06 09:40 | NURSING ---
continuous spo2 monitoring per bedside/nurses station
--- NOTE | 2024-05-06 09:55 | NURSING ---
pt placed on step down monitor
[2024-05-06 09:59] LABS: Bedside Glucose 124 mg/dL (74-106)
--- NOTE | 2024-05-06 10:11 | NURSING ---
notified Jennifer as per demographics sheet and updated on transfer.
--- NOTE | 2024-05-06 10:19 | NURSING ---
nurse to nurse report given to Sandee RENTERIA. pt will go to ICU4
[2024-05-06 10:54] LABS: Allen Test Positive; Base Excess 6 mmol/L (-2 to +2); Bicarbonate 34.8 mmol/L (22-26); Blood Gas Specimen Type ART; Comment 26/16; Mode avaps; O2 Delivery Device BiPAP; PEEP 13; PO2 114 mmHG (75-100); RR 12; SITE R Radial; SO2 96 % (95-99); Total Carbon Dioxide 38 mmol/L; pCO2 102.8 mmHg (35-45); pH 7.14 (7.35-7.45)
[2024-05-06] MEDS: Furosemide 40 MG/4 ML Vial IV ×2 (10:57→14:54)
[2024-05-06 11:07] LABS: Bedside Glucose 101 mg/dL (74-106)
--- NOTE | 2024-05-06 11:15 | ECHOCS_ITS ---
Reason For Study: SOB/DYSPNEA Procedure This was a 2D Doppler, Color Flow transthoracic echocardiogram. The study was technically difficult. PT on VENTILATOR. Contrast injection was performed. Exam performed portable in ICU/CCU. Left Ventricle Normal size and thickness. The left ventricular ejection fraction is 55 %. Stage 1 diastolic dysfunction. Right Ventricle Normal right ventricle. Atria The left and right atria are normal. Mitral Valve Mild mitral annular calcification. Trivial mitral valve insufficiency. Tricuspid Valve Normal tricuspid valve. Aortic Valve Trisinus/trileaflet aortic valve. Pulmonic Valve The pulmonic valve is not well visualized. Great Vessels Normal sized aortic root. Pericardium/Pleural No pericardial effusion. Medication Diluted definity 3.0ml given slow IV push to enhance endocardial definition. MMode/2D Measurements & Calculations LVIDd: 5.1 cm IVSd: 0.98 cm Ao root diam: 3.4 cm LVIDs: 3.7 cm LVPWd: 0.96 cm LA dimension: 4.0 cm RVDd: 2.5 cm FS: 26.4 % LAV(MOD-bp): 31.3 ml LVAd ap4: 32.1 cm2 SV(MOD-sp4): 66.0 ml LAV(MOD-bp) Indexed: 13.8 ml/m2 LVLd ap4: 8.3 cm LAV(MOD-sp2): 28.1 ml EDV(MOD-sp4): 103.0 ml LAV(MOD-sp4): 32.3 ml EDV(sp4-el): 106.0 ml LVAs ap4: 17.6 cm2 LVLs ap4: 6.9 cm ESV(MOD-sp4): 37.1 ml ESV(sp4-el): 38.0 ml EF(MOD-sp4): 64.0 % EF(sp4-el): 64.2 % SV(sp4-el): 68.0 ml LA A4 area: 13.9 cm2 TAPSE: 1.7 cm Time Measurements MV dec time: 0.22 sec Doppler Measurements & Calculations MV E max cuco: 49.1 cm/sec Lat Peak E' Cuco: 9.0 cm/sec Med Peak E' Cuco: 6.3 cm/sec MV A max cuco: 85.3 cm/sec E/E' lat: 5.5 E/E' med: 7.8 MV E/A: 0.58 MV V2 max: 116.3 cm/sec MV P1/2t max cuco: 66.3 cm/sec Ao V2 max: 116.7 cm/sec MV max P.4 mmHg MV P1/2t: 51.8 msec Ao max P.4 mmHg MV V2 mean: 54.0 cm/sec Ao V2 mean: 77.8 cm/sec MV mean P.4 mmHg MV dec slope: 374.6 cm/sec2 Ao mean P.7 mmHg MV V2 VTI: 21.0 cm MVA(P1/2t): 4.2 cm2 Ao V2 VTI: 18.7 cm AV (velocity ratio): 0.85 LV V1 max: 96.4 cm/sec PA V2 max: 83.5 cm/sec LV V1 max P.7 mmHg PA V2 mean: 52.6 cm/sec LV V1 mean P.7 mmHg PA V2 VTI: 11.9 cm LV V1 mean: 60.0 cm/sec LV V1 VTI: 15.8 cm ECHO/Echo Complete W/ Contrast Interpretation Summary The study was technically difficult. The left ventricular ejection fraction is 55 %. Stage 1 diastolic dysfunction. Mild mitral annular calcification. Ordering Physician: Amaya Pringle Referring Physician: Maya Pradhan Performed By: Caren Ruby, KASIA, RVT
--- NOTE | 2024-05-06 11:30 | RAD_ITS ---
STUDY: X-RAY - ABDOMEN/PELVIS REASON FOR EXAM: Male, 73 years old. Abdominal distention. TECHNIQUE: Two AP supine views of the abdomen and pelvis. COMPARISON: None. FINDINGS: There are multiple dilated loops of small bowel throughout the abdomen. This is consistent with a small bowel obstruction. The visualized osseous structures are within normal limits. RAD/Abdomen Single View (Portable) IMPRESSION: Small bowel obstruction. Electronically Signed: Arnol Frias MD at 12:41 EDT ,
[2024-05-06 11:52] LABS: Allen Test Positive; Base Excess 7 mmol/L (-2 to +2); Bicarbonate 35.7 mmol/L (22-26); Blood Gas Specimen Type ART; Comment 26/16; Mode avaps; O2 Delivery Device BiPAP; PEEP 13; PO2 76 mmHG (75-100); RR 12; SITE R Radial; SO2 88 % (95-99); Total Carbon Dioxide 39 mmol/L; pCO2 106.5 mmHg (35-45); pH 7.13 (7.35-7.45)
--- NOTE | 2024-05-06 11:55 | CASEMGMT ---
MYRA MENDOZA Face to Face with granddaughter for initial transition planning/care coordination assessment as patient is currently being intubated. RN CM introduced self and role at [facility]. Granddaughter, Jennifer, willing to participate in assessment and is able to answer all questions appropriately. Care providers, pharmacy, and demographics verified. Strata: new admission, not available at this time PCP: [facility]ynn Specialists: Karen, winding inspector and tester; Valeriy ,breeder service technician; Schuyler, vascular [facility]erred [facility]acy: [facility] Insurance: [employer] Prescription Benefit: yes Living Will/HPOA: none LNOK: daughter(who has suffered a stroke) 2 sons Ed Amrit and Jacob Patterson phone numbers unavailable at this time. Jennifer to assist in obtaining numbers for uncles. Living Arrangements: Patient lives with granddaughter in a split level home with 6 steps and railing between levels. Per granddaughter patient was independent and able to ambulate stairs. Transportation: granddaughter, self DME/HHC: Patient has shower chair, raised toilet, cane, walker, grab bars, wheelchair, cpap, pulse ox, glucometer, and oxygen through [employer] with portability at 3-4lpm. Per granddaughter, they have discussed patient going to SNF at discharge. Disposition TBD pending course of treatment and progress with therapy. Granddaughter states she has no further needs or concerns at this time. CM to follow for discharge planning needs that may arise. Disposition Plan: TBD pending course of treatment and progress with therapy. Zulma MOYA, RN, CM
[2024-05-06] MEDS: Etomidate 20 MG/10 ML Vial IV (12:03)
[2024-05-06] MEDS: Midazolam 2 MG/2 ML Syringe 4 MG IV (12:04)
[2024-05-06] MEDS: Propofol 10MG/Ml 1,000 MG/100 ML Bottle 7.1 MG CONT INF (12:07)
[2024-05-06] MEDS: fentaNYL drip 100 ML 5 MCG CONT INF (12:07)
--- NOTE | 2024-05-06 12:15 | RAD_ITS ---
INDICATION: intubation -- ETT placement EXAMINATION/TECHNIQUE: X-RAY - XR Chest 1 View COMPARISON: May 01, 2024 FINDINGS: LINES/DEVICES: There is an endotracheal tube in place terminating 3.7 cm above the galen. There is an enteric tube in place terminating within the expected region of the gastric body. LUNGS: There are low lung volumes. There are prominent interstitial markings within the mid and lower lungs. There are bibasilar ill-defined opacities. No pneumothorax. MEDIASTINUM AND CARDIOVASCULAR STRUCTURES: Cardiac silhouette not enlarged. Central airways and mediastinal contour are unremarkable. BONES AND SOFT TISSUES: Unremarkable. RAD/Chest 1 View (Portable) IMPRESSION: Endotracheal tube terminating 3.7 cm above the galen. Prominent interstitial markings may be secondary to edema. Bibasilar ill-defined opacities suggestive of atelectasis and/or pneumonia. Electronically Signed: Danyelle Hayes MD at 13:38 EDT ,
--- NOTE | 2024-05-06 12:36 | CT_ITS ---
STUDY: CT ABDOMEN AND PELVIS WITH CONTRAST REASON FOR EXAM: Male, 73 years old. Abdominal distention RADIATION DOSAGE (If Supplied By Facility): CTDIvol = ( 24 ) mGy, DLP = ( 1391 ) mGycm TECHNIQUE: Transaxial images were obtained through the abdomen and pelvis without oral contrast. 100 ml of Isovue-300 contrast was administered. Sagittal and coronal images were reconstructed. CT scan performed according to ALARA principles. Automated exposure control used during exam. COMPARISON: No relevant prior comparison study available FINDINGS: LOWER THORAX: There are trace bilateral pleural effusions with overlying atelectasis. There are coronary artery calcifications. The visualized portions of the heart and pericardium are within normal limits. GALLBLADDER / BILE DUCTS: The patient is status post cholecystectomy. There is no intrahepatic biliary duct dilatation. The common bile duct is normal in caliber. There are no calcified ductal stones. LIVER: The liver is enlarged and low in density, consistent with fatty infiltration. SPLEEN: The spleen is normal in size. PANCREAS: The pancreas is within normal limits. ADRENAL GLANDS: The adrenal glands are within normal limits. KIDNEYS / BLADDER: There are no renal or ureteral stones. There is no hydronephrosis. There is a simple cyst in the right kidney. This is benign and does not require further follow-up. There are no left renal lesions. There is a Perez catheter in urinary bladder. STOMACH / BOWEL: Normal visualized stomach. There is no bowel obstruction or inflammation. The appendix is not visualized, but there are no findings to suggest acute appendicitis. PERITONEUM/RETROPERITONEUM: There is a small amount of free fluid. There is no free air or fluid collection. There is no abnormal soft tissue mass identified. There is no abdominal or pelvic lymphadenopathy. VESSELS: There are atherosclerotic calcifications noted in the aorta and its branches. The aorta is normal in caliber. The IVC is unremarkable. BONES: There are degenerative changes noted in the spine. There are no destructive osseous lesions. SOFT TISSUES: The visualized soft tissues are within normal limits. CT/Abdomen/Pelvis W IV Cont ONLY IMPRESSION: No bowel obstruction or inflammation. No urinary calculi. No hydronephrosis. Small amount of ascites. No free air or fluid collection. Enlarged liver with fatty infiltration. Trace bilateral pleural effusions with overlying atelectasis. Atherosclerosis and coronary artery disease. Electronically Signed: Arnol Frias MD at 14:56 EDT ,
--- NOTE | 2024-05-06 12:46 | PCMCONS.TICU ---
HPI Consult Data Date of Consult: 05/06/24 HPI Narrative HPI Narrative: BLANCA GILL, is a 73 M with a pmhx of anxiety, KRISTI, COPD , CHF ho presents with a fall. Patient states that he got up to get a blanket and he tripped and fell on some objects on the ground. He states he struck the back of his head neck and upper back on the stone hearth. He chronically wears home oxygen due to bad lungs. Imaging showed T8 anterior-inferior endplate vertebral body extension fracture with 2 mm separation. Patient was obtunded when he arrived to the med surg. Patient had an elevated CO2 102. Patient was ultimately intubated for hypercapnic respiratory failure Lines - PIVS Tube- ETT, OG, armenta Gtts - fent 125, Prop 20 , RASS -2 UOP - 600 cc /hr [facility] Medical History Tinea cruris History of chronic CHF Varicose veins of both legs with edema Lower extremity edema 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 disease Carotid bruit Neck pain Shortness of breath Abnormal nuclear stress test Essential hypertension Inappropriate sexual behavior Hypomagnesemia Muscle cramps Edema KRISTI (obstructive sleep apnea) Chronic diastolic (congestive) heart failure Atherosclerotic heart disease of [place] coronary artery without angina pectoris History of ST elevation myocardial infarction (STEMI) (07/11/17) Asthma IBS (irritable bowel syndrome) 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.9) Restless legs Hyperlipidemia Diabetes mellitus, type 2 Anxiety Home Medications ?Medication ?Instructions ?Recorded ?Last Taken ?Type metformin 1,000 mg tablet 1,000 mg PO BIDCM diabetes 01/17/16 01/25/24 History montelukast 10 mg tablet 10 mg PO QHS allergies 01/17/16 12/07/18 History acetaminophen 325 mg tablet 325 - 650 mg (1 - 2 x 325 mg) PO 07/14/17 Unknown Rx Q6H PRN PRN Pain aspirin 81 mg tablet,delayed 81 mg PO DAILY@0800 #30 tabs 07/14/17 01/26/24 Rx release pramipexole 1 mg tablet 2 mg PO QHS headache 05/07/18 12/08/18 21:00 History coenzyme Q10 100 mg capsule 100 mg PO DAILY supplement 12/08/18 12/04/18 History magnesium oxide 400 mg PO DAILY supplement 12/08/18 12/08/18 08:00 History fluticasone propionate 50 1 spray intranasal DAILY PRN nasal 04/05/20 Unknown History mcg/actuation nasal spray spray,suspension alprazolam 0.25 mg tablet 0.25 mg PO DAILY PRN anxiety 10/12/20 Unknown History nitroglycerin 0.4 mg sublingual 0.4 mg sublingual Q5M PRN Angina 11/29/21 Unknown Rx tablet pain #25 tabs vitamin B complex 1 tab PO DAILY 03/14/22 Unknown History isosorbide mononitrate 30 mg 30 mg PO DAILY #90 tabs 07/05/23 Unknown Rx tablet,extended release 24 hr buspirone 10 mg tablet 20 mg PO BID Anxiety 08/20/23 Unknown History insulin NPH isoph U-100 human 100 See Rx Instructions subcut BID 08/20/23 Unknown History unit/mL subcutaneous suspension diabetes clopidogrel 75 mg tablet 75 mg PO DAILY #90 tabs 10/26/23 01/26/24 Rx albuterol sulfate 90 mcg/actuation 2 puff inhalation Q4H PRN 10/28/23 Unknown Rx aerosol inhaler (Ventolin HFA) shortness of breath or wheezing #18 grams fluticasone 500 mcg-salmeterol 50 1 inh inhalation BID #60 ea 10/28/23 Unknown Rx mcg/dose blistr powdr for inhalation (Wixela Inhub) clotrimazole-betamethasone 1 1 applic topical BID 4 weeks #45 11/17/23 Unknown Rx %-0.05 % topical cream grams carvedilol 25 mg tablet 25 mg PO BID #180 tabs 12/07/23 Unknown Rx cholecalciferol (vitamin D3) 50 2,000 unit PO DAILY supplement 12/07/23 Unknown History mcg (2,000 unit) capsule glyburide 1.25 mg tablet 1.25 mg PO BID 12/07/23 01/25/24 History omeprazole 40 mg capsule,delayed 40 mg PO BID 12/07/23 Unknown History release pravastatin 40 mg tablet 40 mg PO DAILY #90 TABLETS 02/09/24 Unknown Rx furosemide 40 mg tablet 80 mg PO DAILY 04/01/24 Unknown History prednisone 20 mg tablet 40 mg (2 x 20 mg) PO DAILY #8 04/01/24 Unknown Rx TABLETS doxycycline monohydrate 100 mg 100 mg PO BID 10 days #20 tabs 05/01/24 Unknown Rx tablet Allergy/AdvReac Type Severity Reaction Status Date / Time Penicillins Allergy Severe Anaphylaxis Verified 05/06/24 02:58 quinine sulfate (From Quine) Allergy Severe passed out Verified 05/06/24 02:58 benzocaine (From Cetacaine) Allergy Swelling Verified 05/06/24 02:58 butamben (From Cetacaine) Allergy Swelling Verified 05/06/24 02:58 ciprofloxacin HCl (From Allergy Hives Verified 05/06/24 02:58 Cipro) clarithromycin (From Biaxin) Allergy Swelling Verified 05/06/24 02:58 exenatide (From Byetta) Allergy Rash Verified 05/06/24 02:58 folic acid (From Allergy Rash Verified 05/06/24 02:58 Proferrin-Forte) hyoscyamine sulfate (From Allergy Rash Verified 05/06/24 02:58 Levsin) iron heme polypeptide (From Allergy tongue Verified 05/06/24 02:58 Proferrin-Forte) swelling naproxen (From Naprosyn) Allergy Rash Verified 05/06/24 02:58 tetracaine (From Cetacaine) Allergy throat Verified 05/06/24 02:58 swelled shut venlafaxine HCl (From Allergy tongue Verified 05/06/24 02:58 Effexor) swelling ezetimibe (From Zetia) AdvReac Severe Myalgias, Verified 05/06/24 02:58 diarrhea mold AdvReac Severe PT UNSURE Verified 05/06/24 02:58 OF REACTION niacin (From Niaspan AdvReac Severe PT UNSURE Verified 05/06/24 02:58 Extended-Release) OF REACTION procainamide AdvReac Severe Anaphylactic/Resp. Verified 05/06/24 02:58 Distress atorvastatin calcium (From AdvReac Intermediate Mylagias Verified 05/06/24 02:58 Lipitor) rosuvastatin calcium (From AdvReac Intermediate Myalgias Verified 05/06/24 02:58 Crestor) diphenhydramine HCl (From AdvReac Restlessnes Verified 05/06/24 02:58 Benadryl) s Family History Mother Diabetes Hypertension Father Hypotension Brother Hypertension HLD (hyperlipidemia) Grandmother Diabetes Grandfather CVA (cerebral vascular accident) Diabetes Brother Cancer lung Surgical History Stented coronary artery (~01/26/24) History of left heart catheterization (12/06/21) History of coronary artery stent placement (04/13/19) History of left knee surgery History of dental surgery History of vasectomy Status post excision of lipoma History of appendectomy History of exploratory laparotomy History of cholecystectomy Social History Smoking Status: Never smoker second hand exposure: No alcohol intake: never substance use type: does not use caffeine: No seatbelt use: always do you feel safe at home: Yes Objective Data Objective Data Vital Signs: Vital Signs Last response Temperature 36.7 C 05/06/24 11:30 Temperature Source Temporal 05/06/24 11:30 Pulse Rate 86 05/06/24 11:30 Respiratory Rate 17 05/06/24 11:30 Respiratory Effort Non-Labored 05/06/24 10:30 Respiratory Depth Shallow 05/06/24 10:30 Blood Pressure 132/84 H 05/06/24 11:30 Blood Pressure Mean 100 05/06/24 11:30 Blood Pressure Source Monitor 05/06/24 10:13 Blood Pressure Position Semi-Fowlers 05/06/24 10:13 Blood Pressure Location Right Arm 05/06/24 10:13 Pulse Ox 100 05/06/24 11:30 Oxygen Delivery Method Bi-pap 05/06/24 11:30 Oxygen Flow Rate (L/min) 5 05/06/24 09:30 Fraction of Inspired Oxygen (FIO2) 40 05/06/24 11:30 I&O: I&O Last 24 Hours 05/05/24 05/06/24 05/06/24 23:59 11:59 23:59 Intake Total 261.0 / 266.51 5.51 / 266.51 Balance 261.0 / 266.51 5.51 / 266.51 I&O: Total Stay 05/06/24 02:57 thru 05/06/24 12:30 Intake Total 266.51 Balance 266.51 Current Meds Ordered / Administered: Current meds ordered / Administered Generic Name Dose Route Start Last Admin Trade Name Freq PRN Reason Stop Dose Admin Acetaminophen 650 mg 05/06/24 08:50 Acetaminophen 325 Mg Tablet PO Q6H PRN PRN Pain Score 1-10 Albuterol Sulfate 2.5 mg 05/06/24 09:25 Albuterol 2.5 Mg/3 Ml Vial.Neb. INHALATION Q4H PRN shortness of breath or wheezing Albuterol Sulfate 2.5 mg 05/06/24 09:26 Albuterol 2.5 Mg/3 Ml Vial.Neb. INHALATION Q6HWA.RT [facility] Alprazolam 0.25 mg 05/06/24 08:50 Alprazolam 0.25 Mg Tablet PO DAILY PRN anxiety Budesonide 0.5 mg 05/06/24 09:30 Budesonide Respules 0.5 Mg/2 Ml Ampul.Neb. INHALATION Q12H.RT [facility] Buspirone HCl 20 mg 05/06/24 10:00 05/06/24 10:19 Buspirone 5 Mg Tablet PO Not Given BID [facility] Carvedilol 25 mg 05/06/24 10:00 05/06/24 10:19 Car[facility]il[facility] 25 Mg [facility] Cholecalciferol 50 mcg 05/06/24 10:00 05/06/24 10:20 Cholecalciferol (Vit D3) 25 Mcg Tablet (1,000 Units) PO Not Given DAILY [facility] Fluticasone Propionate 1 spray 05/06/24 08:50 Fluticasone 0.05% 1 [place] Nasal.Sry NASAL DAILY PRN nasal spray Furosemide 40 mg 05/06/24 14:00 Furosemide 40 Mg Tablet PO 1400 [facility] Protocol Glucagon 1 mg 05/06/24 08:50 Glucagon 1 Mg/Ml Syringe IM X1 PRN HYPOGLYCEMIA Protocol Glyburide 1.25 mg 05/06/24 10:00 05/06/24 10:20 Glyburide 2.5 Mg Tablet PO Not Given BIDCM [facility] Dextrose 250 mls @ 0 mls/hr 05/06/24 08:50 05/06/24 09:38 Dextrose 10%-Water IV Infused .Q0M PRN Infusion HYPOGLYCEMIA Protocol As Directed Sodium Chloride 250 mls @ 15 mls/hr 05/06/24 08:55 05/06/24 10:20 IV Infused .[id number] PRN Infusion Additional IVPB Infusion Sodium Chloride 250 mls @ 15 mls/hr 05/06/24 08:55 IV .[id number] PRN Saline Flush Propofol 1,000 mg in 100 mls @ 7.056 mls/hr 05/06/24 11:05 05/06/24 12:30 Diprivan CONT INF 20 mcg/kg/min .Q12H CHAITANYA 14.1 mls/hr Titration Protocol 10 MCG/KG/MIN Fentanyl 100 mls @ 5 mls/hr 05/06/24 11:05 05/06/24 12:17 CONT INF 100 mcg/hr UD CHAITANYA 10 mls/hr Titration Protocol 50 MCG/HR Insulin Human Lispro 0 unit 05/06/24 11:00 05/06/24 10:51 Insulin Lispro 100 Unit/Ml Insuln.Pen SC Not Given ACHS [facility] Protocol Insulin Human NPH 56 units 05/07/24 08:00 Insulin Nph Human 100 Units/Ml Pen SC BREAKFAST [facility] Insulin Human NPH 44 units 05/06/24 22:00 Insulin Nph Human 100 Units/Ml Pen SC QHS [facility] Iopamidol 0 ml 05/06/24 12:45 Contrast Allergy Safety Check IV X1 [facility] Isosorbide Mononitrate 30 mg 05/06/24 10:00 05/06/24 10:19 Isosorbide Mononitrate 30 Mg Tablet PO Not Given DAILY [facility] Protocol Magnesium Chloride 128 mg 05/06/24 10:00 05/06/24 10:20 Magnesium Chloride 64 Mg Delay Rel.Tablet PO Not Given DAILY [facility] Metformin HCl 1,000 mg 05/06/24 08:50 05/06/24 09:29 Metformin Hcl 1,000 Mg Tablet PO [facility] Montelukast Sodium 10 mg 05/06/24 22:00 Montelukast 10 Mg Tablet PO QHS [facility] Morphine Sulfate 2 - 4 mg 05/06/24 08:50 Morphine 2 Mg/Ml Syringe IV Q3H PRN PRN Pain Score 6-10 Multivitamins 1 cap 05/06/24 10:00 05/06/24 10:19 Vitamin B Comp W-C Capsule PO [facility] Nitroglycerin 0.4 mg 05/06/24 09:18 Nitroglycerin (Inpatient Use) 0.4 Mg Tab.Subl SL Q5M PRN CARDIAC/CHEST PAIN Ondansetron HCl 4 mg 05/06/24 08:50 Ondansetron 4 Mg/2 Ml Vial IV Q8H PRN PRN NAUSEA/VOMITING Oxycodone HCl 5 mg 05/06/24 08:50 Oxycodone 5 Mg Tablet PO Q4H PRN PRN Pain Score 4-10 Pantoprazole Sodium 40 mg 05/06/24 10:00 05/06/24 10:20 Pantoprazole Sodium 40 Mg Tablet PO Not Given BID [facility] Pramipexole Dihydrochloride 2 mg 05/06/24 22:00 Pramipexole Di-Hcl 1 Mg Tablet PO QHS CHA[facility]ANYA Pravastatin Sodium 40 mg 05/06/24 22:00 Pravastatin 40 Mg Tablet PO QHS [facility] Sodium Chloride 10 - 40 ml 05/06/24 08:55 05/06/24 12:35 0.9% Saline Lock 10 Ml Syringe IV 40 ml UD PRN Administration SALINE FLUSH Physical Exam Const General Appearance: patient mechanically ventilated HEENT Head and Scalp: scalp lesion Eyes PERRL Chest Chest: symmetrical chest wall rise Resp normal respiratory effort Auscultation: diminished lung sounds Cardio regular rate, regular rhythm, S1 normal heart sound and S2 normal heart sound Extremity no clubbing, cyanosis or edema and no calf tenderness Extremity Narrative: wounds in the lower extremities Lab / Micro Data 05/06/24 04:16 05/06/24 10:45 Labs: Laboratory Results - last 24 hr 05/06/24 04:16: WBC 8.2, RBC 4.58 L, Hgb 10.9 L, Hct 36.8 L, MCV 80.3, MCH 23.8 L, MCHC 29.6 L, RDW Std Deviation 45.4 H, RDW Coeff of Jeanette 15.8 H, Plt Count 273, MPV 10.3, Immature Gran % (Auto) 0.400, Neut % (Auto) 73.4 H, Lymph % (Auto) 10.8 L, Spink % (Auto) 13.6 H, Eos % (Auto) 1.3, Baso % (Auto) 0.5, Absolute Neuts (auto) 6.0, Absolute Lymphs (auto) 0.89, Nucleated RBC % 0, Sodium 128 L, Potassium 4.8, Chloride 90 L, Carbon Dioxide 34.0 H, Anion Gap 4 L, BUN 21 H, Creatinine 0.82, Estim Creat Clear Calc 102.92, Est GFR (MDRD) Af Amer 118, Est GFR (MDRD) Non-Af 98, BUN/Creatinine Ratio 25.6 H, Glucose 69 L, Calcium 8.8 05/06/24 09:12: POC Glucose 51 L 05/06/24 09:38: POC Glucose 124 H 05/06/24 10:40: POC Glucose 101 ABG Data ABG results: ABG 05/06/24 05/06/24 05/06/24 09:28 10:50 11:48 Specimen Type ART ART ART Sample Site R Radial R Radial R Radial pH 7.11 L* 7.14 L* 7.13 L* Bicarbonate Actual 34.7 H 34.8 H 35.7 H Total CO2 38 38 39 Base Excess 5 H 6 H 7 H O2 Saturation 84 L 96 88 L O2 % 5.0 50.0 50.0 ABG pCO2 109.8 H* 102.8 H* 106.5 H* ABG pO2 70 L 114 H 76 Bryn Test Positive Positive Positive Respiration Rate 12 12 O2 Delivery Device Cannula BiPAP BiPAP Vent Mode Not entered avaps avaps Tidal Volume 500.0 500.0 POC PEEP 13 13 Crit Call To/Read Back Yes Yes Yes Blood Gas Notified Whom christina vasquez Blood Gas Notified Time 09:31:00 10:51:46 11:50:23 Clinical Comments Imaging Radiology Impression Brain CT 05/06/24 03:50 IMPRESSION: No CT evidence of acute intracranial hemorrhage or injury. Electronically Signed: Arturo Hagen MD at 5:32 EDT , Cervical Spine CT 05/06/24 03:50 IMPRESSION: No evidence of acute cervical spinal fracture or spondylolisthesis. Moderate spondylosis as above. Electronically Signed: Arturo Hagen MD at 5:42 EDT , Chest CT 05/06/24 03:50 IMPRESSION: T8 anterior inferior vertebral body corner extension fracture with 2 mm displacement. No evidence of posterior element fracture or displacement Electronically Signed: Arturo Hagen MD at 5:56 EDT , ADDENDUM: 05/06/24 0607 IMPRESSION: T8 anterior inferior vertebral body corner extension fracture with 2 mm displacement. No evidence of posterior element fracture or displacement N.B. : The above Results were Read Back by Arturo Hagen MD to Ricardo Castro DO, and understanding confirmed on 05/06/2024 06:01:04 (ET). Electronically Signed: Arturo Hagen MD at 5:56 EDT , KUB X-Ray 05/06/24 11:30 IMPRESSION: Small bowel obstruction. Electronically Signed: Arnol Frias MD at 12:41 EDT , Assessment and Plan . Assessment and plan: Acute hypoxic/hypercapnic respiratory failure Acute metabotic encephalopathy Hyperkalemia Hyponatremia COPD T8 fracture DM II - MV 6.8 currently at MV 450 , RR 16, PEEP 5, FiO2 - 40 - will increase resp 22 , ABG in an hour - pulmicort and duonebs - lasix IV 40mg BID - echo pending - sugar keep 120-180 - hold insulin , dietitian - SSI - BMP , hyperkalemia protocol - SAT/SBT can be done tomorrow if ready Critical Care Time:60 min The entirety of this encounter was done via Telemedicine
[2024-05-06 12:47] LABS: CPK Total, Creatine Kinase 145 U/L (39-308); Triglycerides 122 mg/dL
[2024-05-06 12:52] LABS: Anion Gap 1 (5-15); BUN 19 mg/dL (7-18); BUN/Creat Ratio 18.6 RATIO (10-20); Calcium,Total 8.7 mg/dL (8.5-10.1); Chloride 90 mmol/L (98-107); Creatinine, Serum 1.02 mg/dL (0.70-1.30); EST Glomerular Filtration Rate 76 mL/min (>60); Est Glom Filt Rate - Afr Amer 92 mL/min (>60); Estimated Creatinine Clearance 81.56 ml/min; Glucose 107 mg/dL (74-106); Potassium 6.3 mmol/L (3.5-5.1); Sodium Level 126 mmol/L (136-145); Troponin-I HS 6 pg/mL (3.0-78.0)
[2024-05-06 13:12] LABS: Allen Test Positive; Base Excess 7 mmol/L (-2 to +2); Bicarbonate 34.2 mmol/L (22-26); Blood Gas Specimen Type ART; Mode AC; O2 Delivery Device Adult Vent; PEEP 5; PO2 49 mmHG (75-100); RR 16; SITE R Radial; SO2 76 % (95-99); Total Carbon Dioxide 37 mmol/L; pCO2 75.6 mmHg (35-45); pH 7.26 (7.35-7.45)
[2024-05-06] MEDS: Sodium Polystyrene Sulfonate 15 GM/60 ML UDC 30 GM GT (13:38)
--- NOTE | 2024-05-06 14:14 | NURSING ---
transferred off floor via RT Gilda and MYRA Garcia at this time
--- NOTE | 2024-05-06 14:58 | WOUNDNOTE ---
wound photo: left lower leg
--- NOTE | 2024-05-06 14:59 | WOUNDNOTE ---
wound photo: left lower leg
[2024-05-06 15:03] LABS: Allen Test Positive; Base Excess 11 mmol/L (-2 to +2); Bicarbonate 34.9 mmol/L (22-26); Blood Gas Specimen Type ART; Mode AC; O2 Delivery Device Adult Vent; PEEP 5; PO2 51 mmHG (75-100); RR 22; SITE R Radial; SO2 86 % (95-99); Total Carbon Dioxide 37 mmol/L; pCO2 51.5 mmHg (35-45); pH 7.44 (7.35-7.45)
[2024-05-06 15:29] LABS: Anion Gap 4 (5-15); BUN 18 mg/dL (7-18); BUN/Creat Ratio 16.2 RATIO (10-20); Calcium,Total 8.7 mg/dL (8.5-10.1); Chloride 88 mmol/L (98-107); Creatinine, Serum 1.11 mg/dL (0.70-1.30); EST Glomerular Filtration Rate 69 mL/min (>60); Est Glom Filt Rate - Afr Amer 84 mL/min (>60); Estimated Creatinine Clearance 74.94 ml/min; Glucose 82 mg/dL (74-106); Potassium 4.6 mmol/L (3.5-5.1); Sodium Level 126 mmol/L (136-145)
[2024-05-06 15:41] LABS: Troponin-I HS 9 pg/mL (3.0-78.0)
--- NOTE | 2024-05-06 16:20 | CONS.ORTHO ---
HPI Consult Data Date of Consult: 05/06/24 HPI Narrative HPI Narrative: BLANCA GILL, is a 73 M who presents after a fall upper back injury. 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 Patient was subsequently admitted to the medical floor but severely decompensated and was moved to the ICU because of low oxygen levels as well as abdominal distention and rigidity. He was then intubated. I saw the patient in the ICU room 4. Patient is sedated and intubated but was able to be awakened with some eyebrow movement and was able to spontaneously move toes on both sides. Additional history was reviewed from the ED physician as well as the hospitalist notes from earlier today. Patient has severe medical comorbidities including diabetes, sleep apnea among other comorbidities. Patient had a fall with impact onto the head neck and upper back. He was evaluated with a brain CT, cervical spine CT and as well as chest CT. The chest CT showed T8 extension fracture with 2 mm separation. [facility] Medical History Tinea cruris History of chronic CHF Varicose veins of both legs with edema Lower extremity edema 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 disease Carotid bruit Neck pain Shortness of breath Abnormal nuclear stress test Essential hypertension Inappropriate sexual behavior Hypomagnesemia Muscle cramps Edema KRISTI (obstructive sleep apnea) Chronic diastolic (congestive) heart failure Atherosclerotic heart disease of [place] coronary artery without angina pectoris History of ST elevation myocardial infarction (STEMI) (07/11/17) Asthma IBS (irritable bowel syndrome) 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.9) Restless legs Hyperlipidemia Diabetes mellitus, type 2 Anxiety Home Medications ?Medication ?Instructions ?Recorded ?Last Taken ?Type metformin 1,000 mg tablet 1,000 mg PO BIDCM diabetes 01/17/16 01/25/24 History montelukast 10 mg tablet 10 mg PO QHS allergies 01/17/16 12/07/18 History acetaminophen 325 mg tablet 325 - 650 mg (1 - 2 x 325 mg) PO 07/14/17 Unknown Rx Q6H PRN PRN Pain aspirin 81 mg tablet,delayed 81 mg PO DAILY@0800 #30 tabs 07/14/17 01/26/24 Rx release pramipexole 1 mg tablet 2 mg PO QHS headache 05/07/18 12/08/18 21:00 History coenzyme Q10 100 mg capsule 100 mg PO DAILY supplement 12/08/18 12/04/18 History magnesium oxide 400 mg PO DAILY supplement 12/08/18 12/08/18 08:00 History fluticasone propionate 50 1 spray intranasal DAILY PRN nasal 04/05/20 Unknown History mcg/actuation nasal spray spray,suspension alprazolam 0.25 mg tablet 0.25 mg PO DAILY PRN anxiety 10/12/20 Unknown History nitroglycerin 0.4 mg sublingual 0.4 mg sublingual Q5M PRN Angina 11/29/21 Unknown Rx tablet pain #25 tabs vitamin B complex 1 tab PO DAILY 03/14/22 Unknown History isosorbide mononitrate 30 mg 30 mg PO DAILY #90 tabs 07/05/23 Unknown Rx tablet,extended release 24 hr buspirone 10 mg tablet 20 mg PO BID Anxiety 08/20/23 Unknown History insulin NPH isoph U-100 human 100 See Rx Instructions subcut BID 08/20/23 Unknown History unit/mL subcutaneous suspension diabetes clopidogrel 75 mg tablet 75 mg PO DAILY #90 tabs 10/26/23 01/26/24 Rx albuterol sulfate 90 mcg/actuation 2 puff inhalation Q4H PRN 10/28/23 Unknown Rx aerosol inhaler (Ventolin HFA) shortness of breath or wheezing #18 grams fluticasone 500 mcg-salmeterol 50 1 inh inhalation BID #60 ea 10/28/23 Unknown Rx mcg/dose blistr powdr for inhalation (Wixela Inhub) clotrimazole-betamethasone 1 1 applic topical BID 4 weeks #45 11/17/23 Unknown Rx %-0.05 % topical cream grams carvedilol 25 mg tablet 25 mg PO BID #180 tabs 12/07/23 Unknown Rx cholecalciferol (vitamin D3) 50 2,000 unit PO DAILY supplement 12/07/23 Unknown History mcg (2,000 unit) capsule glyburide 1.25 mg tablet 1.25 mg PO BID 12/07/23 01/25/24 History omeprazole 40 mg capsule,delayed 40 mg PO BID 12/07/23 Unknown History release pravastatin 40 mg tablet 40 mg PO DAILY #90 TABLETS 02/09/24 Unknown Rx furosemide 40 mg tablet 80 mg PO DAILY 04/01/24 Unknown History prednisone 20 mg tablet 40 mg (2 x 20 mg) PO DAILY #8 04/01/24 Unknown Rx TABLETS doxycycline monohydrate 100 mg 100 mg PO BID 10 days #20 tabs 05/01/24 Unknown Rx tablet Allergy/AdvReac Type Severity Reaction Status Date / Time Penicillins Allergy Severe Anaphylaxis Verified 05/06/24 02:58 quinine sulfate (From Quine) Allergy Severe passed out Verified 05/06/24 02:58 benzocaine (From Cetacaine) Allergy Swelling Verified 05/06/24 02:58 butamben (From Cetacaine) Allergy Swelling Verified 05/06/24 02:58 ciprofloxacin HCl (From Allergy Hives Verified 05/06/24 02:58 Cipro) clarithromycin (From Biaxin) Allergy Swelling Verified 05/06/24 02:58 exenatide (From Byetta) Allergy Rash Verified 05/06/24 02:58 folic acid (From Allergy Rash Verified 05/06/24 02:58 Proferrin-Forte) hyoscyamine sulfate (From Allergy Rash Verified 05/06/24 02:58 Levsin) iron heme polypeptide (From Allergy tongue Verified 05/06/24 02:58 Proferrin-Forte) swelling naproxen (From Naprosyn) Allergy Rash Verified 05/06/24 02:58 tetracaine (From Cetacaine) Allergy throat Verified 05/06/24 02:58 swelled shut venlafaxine HCl (From Allergy tongue Verified 05/06/24 02:58 Effexor) swelling ezetimibe (From Zetia) AdvReac Severe Myalgias, Verified 05/06/24 02:58 diarrhea mold AdvReac Severe PT UNSURE Verified 05/06/24 02:58 OF REACTION niacin (From Niaspan AdvReac Severe PT UNSURE Verified 05/06/24 02:58 Extended-Release) OF REACTION procainamide AdvReac Severe Anaphylactic/Resp. Verified 05/06/24 02:58 Distress atorvastatin calcium (From AdvReac Intermediate Mylagias Verified 05/06/24 02:58 Lipitor) rosuvastatin calcium (From AdvReac Intermediate Myalgias Verified 05/06/24 02:58 Crestor) diphenhydramine HCl (From AdvReac Restlessnes Verified 05/06/24 02:58 Benadryl) s Family History Mother Diabetes Hypertension Father Hypotension Brother Hypertension HLD (hyperlipidemia) Grandmother Diabetes Grandfather CVA (cerebral vascular accident) Diabetes Brother Cancer lung Surgical History Stented coronary artery (~01/26/24) History of left heart catheterization (12/06/21) History of coronary artery stent placement (04/13/19) History of left knee surgery History of dental surgery History of vasectomy Status post excision of lipoma History of appendectomy History of exploratory laparotomy History of cholecystectomy Social History Smoking Status: Never smoker second hand exposure: No alcohol intake: never substance use type: does not use caffeine: No seatbelt use: always do you feel safe at home: Yes Vital Signs Vital Signs Vital Signs: 05/06/24 02:57 05/06/24 04:18 05/06/24 04:57 Temperature 97 F L Temperature Source Temporal Pulse Rate 83 86 Respiratory Rate 24 H 29 H Respiratory Effort Respiratory Depth Respiratory Pattern Blood Pressure 122/75 H 134/86 H Blood Pressure Mean 90 102 Blood Pressure Source Blood Pressure Position Blood Pressure Location Pulse Ox 92 92 92 Oxygen Delivery Method Nasal Cannula Nasal Cannula Nasal Cannula Oxygen Flow Rate (L/min) 3 4 4 Fraction of Inspired Oxygen (FIO2) 05/06/24 06:00 05/06/24 08:00 05/06/24 08:10 Temperature 97 F L Temperature Source Pulse Rate 85 85 85 Respiratory Rate 17 10 L 10 L Respiratory Effort Respiratory Depth Respiratory Pattern Blood Pressure 132/67 H 129/71 H 129/71 H Blood Pressure Mean 88 90 90 Blood Pressure Source Blood Pressure Position Blood Pressure Location Pulse Ox 96 96 96 Oxygen Delivery Method Nasal Cannula Nasal Cannula Oxygen Flow Rate (L/min) 4 5 Fraction of Inspired Oxygen (FIO2) 05/06/24 08:34 05/06/24 09:07 05/06/24 09:24 Temperature 98.4 F Temperature Source Oral Pulse Rate 88 90 Respiratory Rate 18 Respiratory Effort Respiratory Depth Respiratory Pattern Blood Pressure 130/79 H Blood Pressure Mean 96 Blood Pressure Source Monitor Blood Pressure Position Semi-Fowlers Blood Pressure Location Right Arm Pulse Ox 88 88 Oxygen Delivery Method Nasal Cannula Nasal Cannula Oxygen Flow Rate (L/min) 3 5 Fraction of Inspired Oxygen (FIO2) 05/06/24 09:30 05/06/24 09:50 05/06/24 09:53 Temperature Temperature Source Pulse Rate 89 88 90 Respiratory Rate 20 H 26 H 25 H Respiratory Effort Respiratory Depth Respiratory Pattern Tachypnea Blood Pressure 134/75 H Blood Pressure Mean 94 Blood Pressure Source Monitor Blood Pressure Position Semi-Fowlers Blood Pressure Location Right Arm Pulse Ox 92 95 87 Oxygen Delivery Method Nasal Cannula Bi-pap Oxygen Flow Rate (L/min) 5 Fraction of Inspired Oxygen (FIO2) 50 05/06/24 10:13 05/06/24 10:30 05/06/24 11:30 Temperature 98.1 F Temperature Source Temporal Pulse Rate 88 86 Respiratory Rate 32 H 17 Respiratory Effort Non-Labored Respiratory Depth Shallow Respiratory Pattern Blood Pressure 127/77 H 132/84 H Blood Pressure Mean 93 100 Blood Pressure Source Monitor Blood Pressure Position Semi-Fowlers Blood Pressure Location Right Arm Pulse Ox 90 100 Oxygen Delivery Method Bi-pap Bi-pap Bi-pap Oxygen Flow Rate (L/min) Fraction of Inspired Oxygen (FIO2) 40 05/06/24 12:00 05/06/24 12:00 05/06/24 12:05 Temperature 98.7 F Temperature Source Temporal Pulse Rate 82 82 Respiratory Rate 14 21 H Respiratory Effort Non-Labored Mechanically Ventilated Respiratory Depth Normal Respiratory Pattern Normal Tachypnea Blood Pressure 115/69 Blood Pressure Mean 84 Blood Pressure Source Monitor Blood Pressure Position Semi-Fowlers Blood Pressure Location Right Arm Pulse Ox 100 94 Oxygen Delivery Method Mechanical Ventilator Mechanical Ventilator Oxygen Flow Rate (L/min) Fraction of Inspired Oxygen (FIO2) 40 40 45 05/06/24 13:00 05/06/24 14:00 05/06/24 15:00 Temperature 98.9 F 99.0 F 99.7 F H Temperature Source Core Core Core Pulse Rate 81 78 81 Respiratory Rate 16 22 H 22 H Respiratory Effort Respiratory Depth Respiratory Pattern Blood Pressure 106/51 L 111/71 110/73 Blood Pressure Mean 69 84 85 Blood Pressure Source Monitor Monitor Monitor Blood Pressure Position Semi-Fowlers Semi-Fowlers Semi-Fowlers Blood Pressure Location Right Arm Right Arm Right Arm Pulse Ox 89 94 94 Oxygen Delivery Method Mechanical Ventilator Mechanical Ventilator Mechanical Ventilator Oxygen Flow Rate (L/min) Fraction of Inspired Oxygen (FIO2) 45 50 50 Weight Weight: 259 lb 4.218 oz Body Mass Index (BMI) 39.4 Physical Exam Narrative Patient is sedated and intubated but was able to be awoken with some eye bowel movement and had spontaneous toe and lower extremity minimal movements on both sides. Neurologic examination could not be tested. There is no ankle or patellar clonus. There is no hyperreflexia lower extremities. Spine examination could not be completed as patient is sedated and intubated and cannot be turned to the side. Lab / Micro Data 05/06/24 04:16 05/06/24 14:55 Labs: Laboratory Results - last 24 hr 05/06/24 04:16: WBC 8.2, RBC 4.58 L, Hgb 10.9 L, Hct 36.8 L, MCV 80.3, MCH 23.8 L, MCHC 29.6 L, RDW Std Deviation 45.4 H, RDW Coeff of Jeanette 15.8 H, Plt Count 273, MPV 10.3, Immature Gran % (Auto) 0.400, Neut % (Auto) 73.4 H, Lymph % (Auto) 10.8 L, [place] % (Auto) 13.6 H, Eos % (Auto) 1.3, Baso % (Auto) 0.5, Absolute Neuts (auto) 6.0, Absolute Lymphs (auto) 0.89, Nucleated RBC % 0, Sodium 128 L, Potassium 4.8, Chloride 90 L, Carbon Dioxide 34.0 H, Anion Gap 4 L, BUN 21 H, Creatinine 0.82, Estim Creat Clear Calc 102.92, Est GFR (MDRD) Af Amer 118, Est GFR (MDRD) Non-Af 98, BUN/Creatinine Ratio 25.6 H, Glucose 69 L, Calcium 8.8 05/06/24 09:12: POC Glucose 51 L 05/06/24 09:38: POC Glucose 124 H 05/06/24 10:40: POC Glucose 101 05/06/24 10:45: Sodium 126 L, Potassium 6.3 H*, Chloride 90 L, Carbon Dioxide 35.0 H, Anion Gap 1 L, BUN 19 H, Creatinine 1.02, Estim Creat Clear Calc 81.56, Est GFR (MDRD) Af Amer 92, Est GFR (MDRD) Non-Af 76, BUN/Creatinine Ratio 18.6, Glucose 107 H, Calcium 8.7, Total Creatine Kinase 145, Troponin I High Sens 6, Triglycerides 122 05/06/24 14:55: Sodium 126 L, Potassium 4.6, Chloride 88 L, Carbon Dioxide 34.0 H, Anion Gap 4 L, BUN 18, Creatinine 1.11, Estim Creat Clear Calc 74.94, Est GFR (MDRD) Af Amer 84, Est GFR (MDRD) Non-Af 69, BUN/Creatinine Ratio 16.2, Glucose 82, Calcium 8.7, Troponin I High Sens 9 Micro: Microbiology 05/06/24 12:58 Sputum, Induced/Lukens Gram Stain - Final ABG Data ABG results: ABG 05/06/24 05/06/24 05/06/24 09:28 10:50 11:48 Specimen Type ART ART ART Sample Site R Radial R Radial R Radial pH 7.11 L* 7.14 L* 7.13 L* Bicarbonate Actual 34.7 H 34.8 H 35.7 H Total CO2 38 38 39 Base Excess 5 H 6 H 7 H O2 Saturation 84 L 96 88 L O2 % 5.0 50.0 50.0 ABG pCO2 109.8 H* 102.8 H* 106.5 H* ABG pO2 70 L 114 H 76 Bryn Test Positive Positive Positive Respiration Rate 12 12 O2 Delivery Device Cannula BiPAP BiPAP Vent Mode Not entered avaps avaps Tidal Volume 500.0 500.0 POC PEEP 13 13 Crit Call To/Read Back Yes Yes Yes Blood Gas Notified Whom christina vasquez Blood Gas Notified Time 09:31:00 10:51:46 11:50:23 Clinical Comments 05/06/24 05/06/24 13:07 14:58 Specimen Type ART ART Sample Site R Radial R Radial pH 7.26 L 7.44 Bicarbonate Actual 34.2 H 34.9 H Total CO2 37 37 Base Excess 7 H 11 H O2 Saturation 76 L 86 L O2 % 50.0 35.0 ABG pCO2 75.6 H* 51.5 H ABG pO2 49 L 51 L Bryn Test Positive Positive Respiration Rate 16 22 O2 Delivery Device Adult Vent Adult Vent Vent Mode AC AC Tidal Volume 450.0 450.0 POC PEEP 5 5 Crit Call To/Read Back Yes Blood Gas Notified Whom christina Blood Gas Notified Time 13:09:04 Clinical Comments Imaging Radiology Impression Brain CT 05/06/24 03:50 IMPRESSION: No CT evidence of acute intracranial hemorrhage or injury. Electronically Signed: Arturo Hagen MD at 5:32 EDT , Cervical Spine CT 05/06/24 03:50 IMPRESSION: No evidence of acute cervical spinal fracture or spondylolisthesis. Moderate spondylosis as above. Electronically Signed: Arturo Hagen MD at 5:42 EDT , Chest CT 05/06/24 03:50 IMPRESSION: T8 anterior inferior vertebral body corner extension fracture with 2 mm displacement. No evidence of posterior element fracture or displacement Electronically Signed: Arturo Hagen MD at 5:56 EDT , ADDENDUM: 05/06/24 0607 IMPRESSION: T8 anterior inferior vertebral body corner extension fracture with 2 mm displacement. No evidence of posterior element fracture or displacement N.B. : The above Results were Read Back by Arturo Hagen MD to Ricardo Castro DO, and understanding confirmed on 05/06/2024 06:01:04 (ET). Electronically Signed: Arturo Hagen MD at 5:56 EDT , KUB X-Ray 05/06/24 11:30 IMPRESSION: Small bowel obstruction. Electronically Signed: Arnol Frias MD at 12:41 EDT , Chest X-Ray 05/06/24 12:15 IMPRESSION: Endotracheal tube terminating 3.7 cm above the galen. Prominent interstitial markings may be secondary to edema. Bibasilar ill-defined opacities suggestive of atelectasis and/or pneumonia. Electronically Signed: Danyelle Hayes MD at 13:38 EDT , Abdomen/Pelvis CT 05/06/24 12:36 IMPRESSION: No bowel obstruction or inflammation. No urinary calculi. No hydronephrosis. Small amount of ascites. No free air or fluid collection. Enlarged liver with fatty infiltration. Trace bilateral pleural effusions with overlying atelectasis. Atherosclerosis and coronary artery disease. Electronically Signed: Arnol Frias MD at 14:56 EDT , Assessment & Plan Assessment/Plan (1) Fracture, thoracic vertebra: QUALIFIERS: Encounter type: initial encounter Thoracic vertebra fracture level: T8 Fracture type: closed Fracture morphology: other fracture Qualified Code(s): S22.068A - Other fracture of T7-T8 thoracic vertebra, initial encounter for closed fracture PLAN: Plan I reviewed the CT chest done earlier today. I also reviewed the CT abdomen pelvis later today. These show T8 extension fracture of the anteroinferior aspect of the vertebral body with extension into the T8-9 disc. There is 2 mm anterior separation. No obvious middle column or posterior column injuries. There is evidence of DISH and some ligamentum flavum calcification. No MRI available. Patient was sedated and I could not discuss the imaging findings with him. Patient has severe medical comorbidities and is currently intubated due to low oxygen levels also has abdominal rigidity for which she is being evaluated. As well as the extension T8-9 injury is concerned, the extent of displacement is very minimal, there is no extension into the middle column or posterior column. This extension injury although known to be unstable, it may be amenable for nonsurgical treatment, considering patient's severe current medical comorbidities and medical situation right now. From my exam, it is difficult to ascertain neurologic status, but from the report obtained from the ER physicians note, patient was neuro intact at presentation in the ER. Discussed with the nurse about reclined position being better for extension fractures rather than flat supine. Side sleeping may also feel more comfortable when patient recovers from his current respiratory and abdominal issues. Happy to continue to follow the patient once he recovers from his acute situation. Please reconsult if needed. Charges/Coding Visit Charges Inpatient E&M: 61777 Init Hosp L3
--- NOTE | 2024-05-06 16:39 | PCM.HOSP.N ---
Hospitalist Note PRocedure note Decision was made to intubate patient because of worsening respiratory status and persistent hypercapnia. Procedure: intubation Description of procedure: Patient was placed appropriately in the sniffing position. He was preoxygenated with 100% oxygen. He was given IV etomidate 20 mg x 1 and IV Versed 2 mg x 1 for sedation. Direct laryngoscopy with a MAC direct laryngoscope was introduced from the left and tongue was lifted to the right. Vocal cords were visualized and a 7.5 ET tube was inserted through the vocal cords into the trachea. It was inserted to 25 cc at the lip. There was appropriate colorimetric change. Cuff was inflated. On auscultation to confirm placement more breath sounds were heard on the right side than the left side. Patient was oxygenating at 100% and there was fogging of the tube. ET tube was secured in place with ET tube powell and stat chest x-ray was obtained to confirm placement. Visualization of the chest x-ray per my read showed that the ET tube was for advanced in the right bronchus. The ET tube was therefore withdrawn to the 21 cm. ET tube chest x-ray done showed that the ET tube was terminating at 3.7 cm above the galen. Procedures Hospitalists Procedures: 11726 Insert Emergency Airway
[2024-05-06 16:40] LABS: Bedside Glucose 65 mg/dL (74-106)
[2024-05-06] MEDS: TITRATION PARAMETER CHANGE 1 EACH IV (16:42)
[2024-05-06 17:03] LABS: Bedside Glucose 85 mg/dL (74-106)
[2024-05-06] MEDS: Dextrose 5%-Water (1000mL Bag) 1,000 ML 50 ML IV (17:48)
[2024-05-06] MEDS: Vital AF 1.2 Cal Liquid 1,000 ML 20 ML GT (17:49)
[2024-05-06] MEDS: Propofol 10MG/Ml 1,000 MG/100 ML Bottle 14.1 MG CONT INF (17:49)
[2024-05-06 18:24] LABS: Bedside Glucose 68 mg/dL (74-106)
[2024-05-06 18:28] LABS: Bacteria 0 SEEN /hpf (None Seen); Mucous, Urine 0 SEEN /hpf (<or=2+); Squamous Epithelial Cells - UA 0 SEEN /hpf (0-5)
[2024-05-06 18:35] LABS: Anion Gap 7 (5-15); BUN 20 mg/dL (7-18); BUN/Creat Ratio 17.4 RATIO (10-20); Calcium,Total 8.5 mg/dL (8.5-10.1); Chloride 90 mmol/L (98-107); Creatinine, Serum 1.15 mg/dL (0.70-1.30); EST Glomerular Filtration Rate 66 mL/min (>60); Est Glom Filt Rate - Afr Amer 80 mL/min (>60); Estimated Creatinine Clearance 72.34 ml/min; Glucose 177 mg/dL (74-106); Potassium 4.5 mmol/L (3.5-5.1); Sodium Level 130 mmol/L (136-145); Troponin-I HS 8 pg/mL (3.0-78.0)
[2024-05-06 18:45] LABS: Color, Urine Yellow (Yellow); Glucose, Dipstick Normal (Normal); Ketone-Dipstick Negative (Negative); Leukocyte Esterase-Dipstick Negative /ul (Negative); Nitrite-Dipstick Negative (Negative); Occult Blood-Urine 25 /ul (Negative); Protein-Dipstick Negative (Negative); Specific Gravity, Urine 1.005 (1.002-1.030); Urine Bilirubin Dipstick Negative (Negative); Urine Clarity Clear (Clear); Urine Urobilinogen Normal (Normal)
[2024-05-06] MEDS: Budesonide Respules 0.5 MG/2 ML AMPUL.NEB. INHALATION (18:57)
[2024-05-06] MEDS: Albuterol 2.5 MG/3 ML VIAL.NEB. INHALATION (18:57)
[2024-05-06 18:59] LABS: Bedside Glucose 67 mg/dL (74-106)
[2024-05-06 19:07] LABS: Red Blood Cells-Urine 0-5 SEEN /hpf (0-5); White Blood Cells 0-5 SEEN /hpf (0-5)
[2024-05-06] MEDS: fentaNYL drip 100 ML 12.5 MCG CONT INF (19:45)
[2024-05-06 20:10] LABS: Bedside Glucose 105 mg/dL (74-106)
[2024-05-06] MEDS: Vancomycin HCl 1,750 MG in 0.9% Normal Saline (500mL Bag) 500 ML 250 MG IV (20:27)
[2024-05-06] MEDS: busPIRone 5 MG Tablet 20 MG GT (20:30)
[2024-05-06] MEDS: Pramipexole Di-HCl 1 MG Tablet 2 MG GT (20:30)
[2024-05-06] MEDS: Chlorhexidine 15 ML PO (20:31)
[2024-05-06] MEDS: Pravastatin 40 MG Tablet GT (20:31)
[2024-05-06] MEDS: Montelukast 10 MG Tablet GT (20:31)
[2024-05-06] MEDS: Senna/Docusate Sodium 1 Tablet 2 TABLET GT (20:35)
[2024-05-06] MEDS: Acetaminophen 650 MG/20 ML UDC GT (20:35)
--- NOTE | 2024-05-06 21:04 | NURSING ---
2009- This RN spoke to Dr. Hong regarding patient. Informed Dr. Hong that pt has an alphalytic reaction to zosyn so Dr. Pringle and deep RN had order cefepime but order was not valid d/t no physician override per [place] from pharmacy. At this time Dr. Hong ordered this RN to order 1gm merrem IV Q8H and to d/c the cefepime order. RN also informed Dr. Hong that patient was triggering fluid resuscitation per the sepsis checklist. Pt did not receive 1800 dose of lasix and has hx CHF. Dr. Hong ordered this RN to override fluid resus.
[2024-05-06] MEDS: 0.9% Normal Saline (500mL Bag) 500 ML 999 ML IV (21:20)
--- NOTE | 2024-05-06 21:20 | PCM.RX.CS ---
Consult Antibiotic Management Pharmacy has been consulted to manage selected antibiotic: Vancomycin Type of Intervention Type of Consult: New start Labs Labs: Sodium 130 mmol/L (136-145) L 05/06/24 18:10 Potassium 4.5 mmol/L (3.5-5.1) 05/06/24 18:10 Chloride 90 mmol/L (98-107) L 05/06/24 18:10 Carbon Dioxide 33.0 mmol/L (21.0-32.0) H 05/06/24 18:10 Anion Gap 7 (5-15) 05/06/24 18:10 BUN 20 mg/dL (7-18) H 05/06/24 18:10 Creatinine 1.15 mg/dL (0.70-1.30) 05/06/24 18:10 Est GFR (MDRD) Af Amer 80 mL/min (>60) 05/06/24 18:10 Est GFR (MDRD) Non-Af 66 mL/min (>60) 05/06/24 18:10 BUN/Creatinine Ratio 17.4 RATIO (10-20) 05/06/24 18:10 Glucose 177 mg/dL (74-106) H 05/06/24 18:10 Microbiology Microbiology: Microbiology 05/06/24 12:58 Sputum, Induced/Lukens Gram Stain - Final Dosing Weight Weight used for dosin.6 kg Estimated Creatinine Clearance Estimated Creatinine Clearance: 72.3 Goal Trough Goal Trough: 15-20 mcg/mL Pharmacy Plan for Drug Dosing Pharmacy Plan for Drug Dosing: Pharmacy Service will continue to monitor and adjust dosing as required. LOADING DOSE 1750 MG. 1750MG Q12H TROUGH PRIOR TO 4TH DOSE Follow-Up Labs Follow-Up Labs: Trough: Vancomycin Date/Time Labs Ordered Labs to be done on [date and time ordered]: 05/08 @ 0800
[2024-05-06 21:40] LABS: Bedside Glucose 124 mg/dL (74-106)
[2024-05-06 21:50] LABS: Anion Gap 5 (5-15); BUN 20 mg/dL (7-18); BUN/Creat Ratio 17.5 RATIO (10-20); Calcium,Total 8.2 mg/dL (8.5-10.1); Chloride 88 mmol/L (98-107); Creatinine, Serum 1.14 mg/dL (0.70-1.30); EST Glomerular Filtration Rate 67 mL/min (>60); Est Glom Filt Rate - Afr Amer 81 mL/min (>60); Estimated Creatinine Clearance 72.97 ml/min; Glucose 128 mg/dL (74-106); Potassium 4.9 mmol/L (3.5-5.1); Sodium Level 127 mmol/L (136-145)
[2024-05-06] MEDS: Meropenem 1 GM in 0.9% Normal Saline (100mL MB+) 100 ML IV (22:45)
[2024-05-06 23:07] LABS: Bedside Glucose 128 mg/dL (74-106)
[2024-05-06] MEDS: Norepinephrine 8 MG in 0.9% Normal Saline (250mL Bag) 242 ML 9.4 MG CONT INF (23:20)
[2024-05-07] VITALS (51 sets, daily range): BP systolic 86–129; BP diastolic 38–68; PULSE 65–85; RESP 16–22; TEMP 36.5–38.2; O2SAT 93–99; BMI 39.3
[2024-05-07] MEDS: Propofol 10MG/Ml 1,000 MG/100 ML Bottle 14.1 MG CONT INF (00:42)
[2024-05-07 03:37] LABS: Absolute Lymphocyte Count 1.06 X10^3/uL (0.83-4.51); Absolute Neutrophil Count 9.3 X10^3/uL (2.0-7.7); Basophil# 0.04 X10^3/uL; Basophil% 0.3 % (0-1); Eosinophil# 0.14 X10^3/uL; Eosinophils% 1.1 % (0-5); Hematocrit 33.3 % (40-54); Hemoglobin 10.6 g/dL (13.0-16.5); Lymphocyte # 1.06 X10^3/ul (0.83-4.51); Lymphocyte % 8.7 % (19-41); Mean Corp Hgb Conc 31.8 g/dL (32-36); Mean Corpuscular Hgb 23.9 pg (27.0-32.0); Mean Corpuscular Volume 75.2 fL (80-94); Mean Platelet Vol. 9.4 fl (6.2-12.0); Monocyte# 1.64 X10^3/uL; Monocyte% 13.4 % (0-10); NRBC Flagged by Analyzer 0 % (0-5); Neutrophil # 9.26 X10^3/uL (2.7-7.7); Neutrophil % 75.8 % (47-70); POSITIVE DIFFERENTIAL YES; Platelet Count 282 K/mm3 (150-450); RBC Distribution Width CV 16.1 % (11.6-14.6); RBC Distribution Width SD 43.6 fl (35.1-43.9); Red Blood Count 4.43 M/mm3 (4.6-6.2); White Blood Count 12.2 K/mm3 (4.4-11.0)
[2024-05-07 03:49] LABS: Anion Gap 7 (5-15); BUN 21 mg/dL (7-18); BUN/Creat Ratio 18.4 RATIO (10-20); Calcium,Total 8.1 mg/dL (8.5-10.1); Chloride 90 mmol/L (98-107); Creatinine, Serum 1.14 mg/dL (0.70-1.30); EST Glomerular Filtration Rate 67 mL/min (>60); Est Glom Filt Rate - Afr Amer 81 mL/min (>60); Estimated Creatinine Clearance 72.97 ml/min; Glucose 194 mg/dL (74-106); Potassium 4.6 mmol/L (3.5-5.1); Sodium Level 127 mmol/L (136-145)
[2024-05-07 03:50] LABS: Bedside Glucose 202 mg/dL (74-106)
[2024-05-07] MEDS: fentaNYL drip 100 ML 12.5 MCG CONT INF ×3 (04:00→19:57)
[2024-05-07] MEDS: 0.9% Saline Lock 10 ML Syringe IV ×3 (04:21→17:03)
[2024-05-07 04:57] LABS: Differential Indicated SCAN CRITERIA MET
[2024-05-07] MEDS: Propofol 10MG/Ml 1,000 MG/100 ML Bottle 17.6 MG CONT INF (05:25)
[2024-05-07] MEDS: Meropenem 1 GM in 0.9% Normal Saline (100mL MB+) 100 ML IV ×3 (05:25→21:37)
[2024-05-07] MEDS: Acetaminophen 650 MG/20 ML UDC GT (05:25)
[2024-05-07] MEDS: Albuterol 2.5 MG/3 ML VIAL.NEB. INHALATION ×3 (06:53→19:50)
[2024-05-07] MEDS: Insulin Lispro 100 UNIT/ML INSULN.PEN SC ×4 (08:13→21:39)
[2024-05-07 08:29] LABS: Bedside Glucose 295 mg/dL (74-106)
[2024-05-07] MEDS: CHLORHEXIDINE GLUC 2% CLOTH 1 EACH TOWELETTE TOPICAL (08:56)
[2024-05-07] MEDS: Vancomycin HCl 1,750 MG in 0.9% Normal Saline (500mL Bag) 500 ML 250 MG IV ×2 (08:56→21:25)
[2024-05-07] MEDS: Chlorhexidine 15 ML PO ×2 (08:57→21:41)
[2024-05-07] MEDS: Budesonide Respules 0.5 MG/2 ML AMPUL.NEB. INHALATION ×2 (09:19→19:50)
[2024-05-07] MEDS: Cholecalciferol (VIT D3) 25 MCG TABLET (1,000 UNITS) 50 MCG GT (09:54)
[2024-05-07] MEDS: Furosemide 40 MG/4 ML Vial IV ×2 (09:54→17:03)
[2024-05-07] MEDS: busPIRone 5 MG Tablet 20 MG GT ×2 (09:54→21:41)
[2024-05-07] MEDS: Senna/Docusate Sodium 1 Tablet 2 TABLET GT ×2 (09:54→21:40)
[2024-05-07] MEDS: Magnesium Chloride 64 MG Delay Rel.Tablet 128 MG PO (09:54)
[2024-05-07] MEDS: Propofol 10MG/Ml 1,000 MG/100 ML Bottle 21.1 MG CONT INF (10:18)
--- NOTE | 2024-05-07 11:13 | PCM.PN.TICU ---
Objective Data Objective Data Vital Signs: Vital Signs Last response Temperature 37.2 C 05/07/24 10:00 Temperature Source Core 05/07/24 10:00 Pulse Rate 71 05/07/24 11:00 Pulse Strength Normal (2+) 05/07/24 10:00 Respiratory Rate 22 H 05/07/24 11:00 Respiratory Effort Mechanically Ventilated 05/07/24 08:00 Respiratory Depth Normal 05/07/24 08:00 Respiratory Pattern Normal 05/07/24 09:46 Blood Pressure 108/55 L 05/07/24 11:00 Blood Pressure Mean 72 05/07/24 11:00 Blood Pressure Source Monitor 05/07/24 07:00 Blood Pressure Position Semi-Fowlers 05/07/24 11:00 Blood Pressure Location Left Arm 05/07/24 11:00 Pulse Ox 94 05/07/24 11:00 Oxygen Delivery Method Mechanical Ventilator 05/07/24 11:00 Oxygen Flow Rate (L/min) 5 05/06/24 09:30 Fraction of Inspired Oxygen (FIO2) 50 05/07/24 11:00 I&O: I&O Last 24 Hours 05/06/24 05/06/24 05/07/24 11:59 23:59 11:59 Intake Total 261.0 / 2254.70 1865.22 / 2254.70 2273.56 / 2273.56 Output Total 3190 / 3425 785 / 785 Balance 261.0 / -1170.30 -1324.78 / -1170.30 1488.56 / 1488.56 I&O: Total Stay 05/06/24 02:57 thru 05/07/24 11:00 Intake Total 4399.78 Output Total 3975 Balance 424.78 Current Meds Ordered / Administered: Current meds ordered / Administered Generic Name Dose Route Start Last Admin Trade Name Freq PRN Reason Stop Dose Admin Acetaminophen 650 mg 05/06/24 16:36 05/07/24 05:25 Acetaminophen 650 Mg/20 Ml Udc GT 650 mg Q6H PRN PRN Administration Pain Score 1-10 Albuterol Sulfate 2.5 mg 05/06/24 09:25 Albuterol 2.5 Mg/3 Ml Vial.Neb. INHALATION Q4H PRN shortness of breath or wheezing Albuterol Sulfate 2.5 mg 05/06/24 09:26 05/07/24 06:53 Albuterol 2.5 Mg/3 Ml Vial.Neb. INHALATION 2.5 mg Q6HWA.RT CHAITANYA Administration Alprazolam 0.25 mg 05/06/24 16:35 Alprazolam 0.25 Mg Tablet GT DAILY PRN anxiety Budesonide 0.5 mg 05/06/24 09:30 05/07/24 09:19 Budesonide Respules 0.5 Mg/2 Ml Ampul.Neb. INHALATION 0.5 mg Q12H.RT CHAITANYA Administration Buspirone HCl 20 mg 05/06/24 22:00 05/07/24 09:54 Buspirone 5 Mg Tablet GT 20 mg BID CHAITANYA Administration Carvedilol 25 mg 05/06/24 17:00 05/07/24 08:03 Carvedilol 25 Mg Tablet GT Not Given BIDCM CHAITANYA Protocol Chlorhexidine Gluconate 15 ml 05/06/24 22:00 05/07/24 08:57 Chlorhexidine 15 Ml PO 15 ml BID CHAITANYA Administration Chlorhexidine Gluconate 1 each 05/07/24 10:00 05/07/24 08:56 Chlorhexidine Gluc 2% Cloth 1 Each [place] TOPICAL 1 each DAILY CHAITANYA Administration Cholecalciferol 50 mcg 05/07/24 10:00 05/07/24 09:54 Cholecalciferol (Vit D3) 25 Mcg Tablet (1,000 Units) GT 50 mcg DAILY CHAITANYA Administration Fluticasone Propionate 1 spray 05/06/24 08:50 Fluticasone 0.05% 1 [place] Nasal.Sry NASAL DAILY PRN nasal spray Furosemide 40 mg 05/06/24 13:25 05/07/24 09:54 Furosemide 40 Mg/4 Ml Vial IV 40 mg BIDLX CHAITANYA Administration Protocol Glucagon 1 mg 05/06/24 08:50 Glucagon 1 Mg/Ml Syringe IM X1 PRN HYPOGLYCEMIA Protocol Dextrose 250 mls @ 0 mls/hr 05/06/24 08:50 05/06/24 18:52 Dextrose 10%-Water IV 0 mls/hr .Q0M PRN Infusion HYPOGLYCEMIA Protocol As Directed Sodium Chloride 250 mls @ 15 mls/hr 05/06/24 08:55 05/06/24 10:20 IV Infused .[id number] PRN Infusion Additional IVPB Infusion Sodium Chloride 250 mls @ 15 mls/hr 05/06/24 08:55 IV .[id number] PRN Saline Flush Propofol 1,000 mg in 100 mls @ 7.044 mls/hr 05/06/24 11:05 05/07/24 11:00 Diprivan CONT INF 30 mcg/kg/min .Q12H CHAITANYA 21.1 mls/hr Titration Protocol 10 MCG/KG/MIN Fentanyl 100 mls @ 5 mls/hr 05/06/24 11:05 05/07/24 11:00 CONT INF 125 mcg/hr UD CHAITANYA 12.5 mls/hr Titration Protocol 50 MCG/HR Enteral Nutritional Formula 1,000 mls @ 60 mls/hr 05/06/24 17:35 05/07/24 10:02 Vital Af 1.2 Ben Liquid GT 50 mls/hr .[id number] CHAITANYA Infusion Vancomycin IV-PHARMACY TO DOSE 500 mls @ 250 mls/hr 05/06/24 18:21 1 each/ Sodium Chloride IV X1 PRN Rx to Dose Protocol Meropenem 1 gm/ Sodium 120 mls @ 33 mls/hr 05/06/24 22:00 05/07/24 09:05 Chloride IV Infused Q8 CHAITANYA Infusion Vancomycin HCl 1,750 mg/ 535 mls @ 250 mls/hr 05/07/24 08:30 05/07/24 08:56 Sodium Chloride IV 250 mls/hr Q12H CHAITANYA Administration Norepinephrine Bitartrate 8 mg 250 mls @ 9.375 mls/hr 05/06/24 21:15 05/07/24 11:00 / Sodium Chloride CONT INF 3 mcg/min .[id number] CHAITANYA 5.6 mls/hr Titration Protocol 5 MCG/MIN Pantoprazole Sodium 40 mg/ 110 mls @ 330 mls/hr 05/07/24 10:00 Sodium Chloride IV Q24 CHAITANYA Insulin Human Lispro 0 unit 05/06/24 11:00 05/07/24 08:13 Insulin Lispro 100 Unit/Ml Insuln.Pen SC 6 u ACHS CHAITANYA Administration Protocol Isosorbide Mononitrate 30 mg 05/06/24 10:00 05/07/24 08:03 Isosorbide Mononitrate 30 Mg Tablet PO Not Given DAILY CHAITANYA Protocol Magnesium Chloride 128 mg 05/06/24 10:00 05/07/24 09:54 Magnesium Chloride 64 Mg Delay Rel.Tablet PO 128 mg DAILY CHAITANYA Administration Montelukast Sodium 10 mg 05/06/24 22:00 05/06/24 20:31 Montelukast 10 Mg Tablet GT 10 mg QHS CHAITANYA Administration Morphine Sulfate 2 - 4 mg 05/06/24 08:50 Morphine 2 Mg/Ml Syringe IV Q3H PRN PRN Pain Score 6-10 Multivitamins 1 cap 05/07/24 08:00 05/07/24 08:03 Vitamin B Comp W-C Capsule GT Not [facility] Nitroglycerin 0.4 mg 05/06/24 09:18 Nitroglycerin (Inpatient Use) 0.4 Mg Tab.Subl SL Q5M PRN CARDIAC/CHEST PAIN Ondansetron HCl 4 mg 05/06/24 08:50 Ondansetron 4 Mg/2 Ml Vial IV Q8H PRN PRN NAUSEA/VOMITING Pramipexole Dihydrochloride 2 mg 05/06/24 22:00 05/06/24 20:30 Pramipexole Di-Hcl 1 Mg Tablet GT 2 mg QHS [facility] Administration Pravastatin Sodium 40 mg 05/06/24 22:00 05/06/24 20:31 Pravastatin 40 Mg Tablet GT 40 mg QHS [facility] Administration Senna/Docusate Sodium 2 tablet 05/06/24 22:00 05/07/24 09:54 Senna/Docusate Sodium 1 Tablet GT 2 tablet BID CHAITANYA Administration Sodium Chloride 10 - 40 ml 05/06/24 08:55 05/07/24 08:13 0.9% Saline Lock 10 Ml Syringe IV 20 ml UD PRN Administration SALINE FLUSH Vancomycin Protocol 1 lab 05/08/24 06:00 Vancomycin Trough/Random Due 05/08/24 10:00 DAILY [facility] Lab / Micro Data 05/07/24 03:31 05/07/24 03:31 Labs: Laboratory Results - last 24 hr 05/06/24 10:45: Sodium 126 L, Potassium 6.3 H*, Chloride 90 L, Carbon Dioxide 35.0 H, Anion Gap 1 L, BUN 19 H, Creatinine 1.02, Estim Creat Clear Calc 81.56, Est GFR (MDRD) Af Amer 92, Est GFR (MDRD) Non-Af 76, BUN/Creatinine Ratio 18.6, Glucose 107 H, Calcium 8.7, Total Creatine Kinase 145, Troponin I High Sens 6, Triglycerides 122 05/06/24 14:55: Sodium 126 L, Potassium 4.6, Chloride 88 L, Carbon Dioxide 34.0 H, Anion Gap 4 L, BUN 18, Creatinine 1.11, Estim Creat Clear Calc 74.94, Est GFR (MDRD) Af Amer 84, Est GFR (MDRD) Non-Af 69, BUN/Creatinine Ratio 16.2, Glucose 82, Calcium 8.7, Troponin I High Sens 9 05/06/24 16:20: POC Glucose 65 L 05/06/24 16:45: POC Glucose 85 05/06/24 18:07: POC Glucose 68 L 05/06/24 18:10: Sodium 130 L, Potassium 4.5, Chloride 90 L, Carbon Dioxide 33.0 H, Anion Gap 7, BUN 20 H, Creatinine 1.15, Estim Creat Clear Calc 72.34, Est GFR (MDRD) Af Amer 80, Est GFR (MDRD) Non-Af 66, BUN/Creatinine Ratio 17.4, Glucose 177 H, Calcium 8.5, Troponin I High Sens 8 05/06/24 18:20: Urine Color Yellow, Urine Clarity Clear, Urine pH 7.0, Ur Specific [place] 1.005, Urine Protein Negative, Urine Glucose (UA) Normal, Urine Ketones Negative, Urine Occult Blood 25 H, Urine Nitrite Negative, Urine Bilirubin Negative, Urine Urobilinogen Normal, Ur Leukocyte Esterase Negative, Urine RBC 0-5 SEEN, Urine WBC 0-5 SEEN, Ur Squamous Epith Cells 0 SEEN, Urine Bacteria 0 SEEN, Urine Mucus 0 SEEN 05/06/24 18:42: POC Glucose 67 L 05/06/24 19:51: POC Glucose 105 05/06/24 21:21: POC Glucose 124 H 05/06/24 21:22: Sodium 127 L, Potassium 4.9, Chloride 88 L, Carbon Dioxide 34.0 H, Anion Gap 5, BUN 20 H, Creatinine 1.14, Estim Creat Clear Calc 72.97, Est GFR (MDRD) Af Amer 81, Est GFR (MDRD) Non-Af 67, BUN/Creatinine Ratio 17.5, Glucose 128 H, Calcium 8.2 L 05/06/24 22:44: POC Glucose 128 H 05/07/24 03:26: POC Glucose 202 H 05/07/24 03:31: WBC 12.2 H, RBC 4.43 L, Hgb 10.6 L, Hct 33.3 L, MCV 75.2 L D, MCH 23.9 L, MCHC 31.8 L D, RDW Std Deviation 43.6, RDW Coeff of Jeanette 16.1 H, Plt Count 282, MPV 9.4, Immature Gran % (Auto) 0.700, Neut % (Auto) 75.8 H, Lymph % (Auto) 8.7 L, [place] % (Auto) 13.4 H, Eos % (Auto) 1.1, Baso % (Auto) 0.3, Absolute Neuts (auto) 9.3 H, Absolute Lymphs (auto) 1.06, Nucleated RBC % 0, Diff Path Review January, Sodium 127 L, Potassium 4.6, Chloride 90 L, Carbon Dioxide 30.0, Anion Gap 7, BUN 21 H, Creatinine 1.14, Estim Creat Clear Calc 72.97, Est GFR (MDRD) Af Amer 81, Est GFR (MDRD) Non-Af 67, BUN/Creatinine Ratio 18.4, Glucose 194 H, Calcium 8.1 L 05/07/24 08:10: POC Glucose 295 H Micro: Microbiology 05/06/24 12:58 Sputum, Induced/Lukens Gram Stain - Final ABG Data ABG results: ABG 05/06/24 05/06/24 05/06/24 11:48 13:07 14:58 Specimen Type ART ART ART Sample Site R Radial R Radial R Radial pH 7.13 L* 7.26 L 7.44 Bicarbonate Actual 35.7 H 34.2 H 34.9 H Total CO2 39 37 37 Base Excess 7 H 7 H 11 H O2 Saturation 88 L 76 L 86 L O2 % 50.0 50.0 35.0 ABG pCO2 106.5 H* 75.6 H* 51.5 H ABG pO2 76 49 L 51 L Bryn Test Positive Positive Positive Respiration Rate 12 16 22 O2 Delivery Device BiPAP Adult Vent Adult Vent Vent Mode avaps AC AC Tidal Volume 500.0 450.0 450.0 POC PEEP 13 5 5 Crit Call To/Read Back Yes Yes Blood Gas Notified Whom christina vasquez Blood Gas Notified Time 11:50:23 13:09:04 Clinical Comments Imaging Radiology Impression KUB X-Ray 05/06/24 11:30 IMPRESSION: Small bowel obstruction. Electronically Signed: rAnol Frias MD at 12:41 EDT , Chest X-Ray 05/06/24 12:15 IMPRESSION: Endotracheal tube terminating 3.7 cm above the galen. Prominent interstitial markings may be secondary to edema. Bibasilar ill-defined opacities suggestive of atelectasis and/or pneumonia. Electronically Signed: Danyelle Hayes MD at 13:38 EDT , Abdomen/Pelvis CT 05/06/24 12:36 IMPRESSION: No bowel obstruction or inflammation. No urinary calculi. No hydronephrosis. Small amount of ascites. No free air or fluid collection. Enlarged liver with fatty infiltration. Trace bilateral pleural effusions with overlying atelectasis. Atherosclerosis and coronary artery disease. Electronically Signed: Arnol Frias MD at 14:56 EDT , Assessment and Plan . Assessment and plan: Acute hypoxic/hypercapnic respiratory failure Acute metabotic encephalopathy Hyperkalemia Hyponatremia COPD T8 fracture DM II - MV 450 , RR 22, PEEP 5, FiO2 - 50 - pulmicort and duonebs - lasix IV 40mg BID - echo diastolic dysfunction - sugar keep 120-180 - dietitian - SSI - SAT/SBT Critical Care Time: 60 mins The entirety of this encounter was done via Telemedicine Physical Exam Narrative . Const General Appearance: patient mechanically ventilated HEENT normocephalic Eyes PERRL Resp Resp Narrative: lots secretions Cardio regular rate GI normal to inspection, nondistended, normoactive bowel sounds Extremity General Extremity: edema Subjective Subjective Overnight patient needed some levophed for low BP. Patient will get agitated and desat. Lines - PIVS Tube- ETT, OG, armenta Gtts - fent 125, Prop 30 , RASS -2 UOP - 600 cc /hr
[2024-05-07] MEDS: Pantoprazole Sodium 40 MG in 0.9% Normal Saline (100mL MB+) 100 ML 330 MG IV (11:34)
[2024-05-07] MEDS: Dexmedetomidine 1,000 mcg in 0.9% NS 240 mL 14.7 MCG CONT INF (11:55)
[2024-05-07] MEDS: guaiFENesin 10 ML UDC (200MG/10ML) 5 ML GT ×2 (11:55→17:04)
[2024-05-07 12:04] LABS: Allen Test Positive; Base Excess 8 mmol/L (-2 to +2); Bicarbonate 29.5 mmol/L (22-26); Blood Gas Specimen Type ART; Mode AC; O2 Delivery Device ET Tube; PEEP 5; PO2 56 mmHG (75-100); SITE R Radial; SO2 93 % (95-99); Total Carbon Dioxide 30 mmol/L; pCO2 31.2 mmHg (35-45); pH 7.58 (7.35-7.45)
[2024-05-07 12:23] LABS: Bedside Glucose 309 mg/dL (74-106)
--- NOTE | 2024-05-07 12:41 | PN_ITS ---
Subjective Subjective Patient seen and examined. He remains intubated and sedated. Unable to do review of systems. Per his nurse, his FiO2 went as high as 70% yesterday but is down to 50% today. He developed fever yesterday and was tachycardic as well and so he was started on broad-spectrum antibiotics. He was initially started on IV vancomycin and cefepime but this was transitioned to IV meropenem yesterday. Unclear why. Objective Data Objective Data Vital Signs: Vital Signs Temp Pulse Resp BP Pulse Ox O2 Del Method O2 Flow Rate 98.2 F 71 22 H 115/52 L 94 Mechanical Ventilator 5 05/07/24 12:00 05/07/24 12:24 05/07/24 12:24 05/07/24 12:00 05/07/24 12:24 05/07/24 12:00 05/06/24 09:30 FiO2 60 05/07/24 12:24 Oxygen Flow Rate (L/min) 5 Oxygen Delivery Method Mechanical Ventilator Weight: 258 lb 13.163 oz Body Mass Index (BMI) 39.3 Intake & Output: Intake and Output for Last 24 Hours 05/05/24 05/06/24 05/07/24 23:59 23:59 23:59 Intake Total 2126.22 / 2254.70 2974.03 / 2974.03 Output Total 3190 / 3425 2935 / 2935 Balance -1063.78 / -1170.30 39.03 / 39.03 Lab / Micro Data 05/07/24 03:31 05/07/24 03:31 Labs: Laboratory Results - last 24 hr 05/06/24 10:45: Sodium 126 L, Potassium 6.3 H*, Chloride 90 L, Carbon Dioxide 35.0 H, Anion Gap 1 L, BUN 19 H, Creatinine 1.02, Estim Creat Clear Calc 81.56, Est GFR (MDRD) Af Amer 92, Est GFR (MDRD) Non-Af 76, BUN/Creatinine Ratio 18.6, Glucose 107 H, Calcium 8.7, Total Creatine Kinase 145, Troponin I High Sens 6, Triglycerides 122 05/06/24 14:55: Sodium 126 L, Potassium 4.6, Chloride 88 L, Carbon Dioxide 34.0 H, Anion Gap 4 L, BUN 18, Creatinine 1.11, Estim Creat Clear Calc 74.94, Est GFR (MDRD) Af Amer 84, Est GFR (MDRD) Non-Af 69, BUN/Creatinine Ratio 16.2, Glucose 82, Calcium 8.7, Troponin I High Sens 9 05/06/24 16:20: POC Glucose 65 L 05/06/24 16:45: POC Glucose 85 05/06/24 18:07: POC Glucose 68 L 05/06/24 18:10: Sodium 130 L, Potassium 4.5, Chloride 90 L, Carbon Dioxide 33.0 H, Anion Gap 7, BUN 20 H, Creatinine 1.15, Estim Creat Clear Calc 72.34, Est GFR (MDRD) Af Amer 80, Est GFR (MDRD) Non-Af 66, BUN/Creatinine Ratio 17.4, Glucose 177 H, Calcium 8.5, Troponin I High Sens 8 05/06/24 18:20: Urine Color Yellow, Urine Clarity Clear, Urine pH 7.0, Ur Specific [place] 1.005, Urine Protein Negative, Urine Glucose (UA) Normal, Urine Ketones Negative, Urine Occult Blood 25 H, Urine Nitrite Negative, Urine Bilirubin Negative, Urine Urobilinogen Normal, Ur Leukocyte Esterase Negative, Urine RBC 0-5 SEEN, Urine WBC 0-5 SEEN, Ur Squamous Epith Cells 0 SEEN, Urine Bacteria 0 SEEN, Urine Mucus 0 SEEN 05/06/24 18:42: POC Glucose 67 L 05/06/24 19:51: POC Glucose 105 05/06/24 21:21: POC Glucose 124 H 05/06/24 21:22: Sodium 127 L, Potassium 4.9, Chloride 88 L, Carbon Dioxide 34.0 H, Anion Gap 5, BUN 20 H, Creatinine 1.14, Estim Creat Clear Calc 72.97, Est GFR (MDRD) Af Amer 81, Est GFR (MDRD) Non-Af 67, BUN/Creatinine Ratio 17.5, Glucose 128 H, Calcium 8.2 L 05/06/24 22:44: POC Glucose 128 H 05/07/24 03:26: POC Glucose 202 H 05/07/24 03:31: WBC 12.2 H, RBC 4.43 L, Hgb 10.6 L, Hct 33.3 L, MCV 75.2 L D, M CH 23.9 L, MCHC 31.8 L D, RDW Std Deviation 43.6, RDW Coeff of Jeanette 16.1 H, Plt Count 282, MPV 9.4, Immature Gran % (Auto) 0.700, Neut % (Auto) 75.8 H, Lymph % (Auto) 8.7 L, [place] % (Auto) 13.4 H, Eos % (Auto) 1.1, Baso % (Auto) 0.3, A bsolute Neuts (auto) 9.3 H, Absolute Lymphs (auto) 1.06, Nucleated RBC % 0, Diff Path Review January, Sodium 127 L, Potassium 4.6, Chloride 90 L, Carbon Dioxide 30.0, Anion Gap 7, BUN 21 H, Creatinine 1.14, Estim Creat Clear Calc 72.97, Est GFR (MDRD) Af Amer 81, Est GFR (MDRD) Non-Af 67, BUN/Creatinine Ratio 18.4, G lucose 194 H, Calcium 8.1 L 05/07/24 08:10: POC Glucose 295 H 05/07/24 11:54: POC Glucose 309 H Micro: Microbiology 05/06/24 12:58 Sputum, Induced/Lukens Gram Stain - Final ABG Data ABG results: ABG 05/06/24 05/06/24 05/07/24 13:07 14:58 12:01 Specimen Type ART ART ART Sample Site R Radial R Radial R Radial pH 7.26 L 7.44 7.58 H Bicarbonate Actual 34.2 H 34.9 H 29.5 H Total CO2 37 37 30 Base Excess 7 H 11 H 8 H O2 Saturation 76 L 86 L 93 L O2 % 50.0 35.0 50.0 ABG pCO2 75.6 H* 51.5 H 31.2 L ABG pO2 49 L 51 L 56 L Bryn Test Positive Positive Positive Respiration Rate 16 22 O2 Delivery Device Adult Vent Adult Vent ET Tube Vent Mode AC AC AC Tidal Volume 450.0 450.0 POC PEEP 5 5 5 Crit Call To/Read Back Yes Blood Gas Notified Whom christina Blood Gas Notified Time 13:09:04 Radiography Diagnostic Testing: Radiology Impression Echocardiogram 05/06/24 11:15 Interpretation Summary The study was technically difficult. The left ventricular ejection fraction is 55 %. Stage 1 diastolic dysfunction. Mild mitral annular calcification. Ordering Physician: Amaya Pringle Referring Physician: Maya Pradhan Performed By: Caren Ruby, RDCS, RVT X-Ray 05/06/24 11:30 IMPRESSION: Small bowel obstruction. Electronically Signed: Arnol Frias MD at 12:41 EDT , Chest X-Ray 05/06/24 12:15 IMPRESSION: Endotracheal tube terminating 3.7 cm above the galen. Prominent interstitial markings may be secondary to edema. Bibasilar ill-defined opacities suggestive of atelectasis and/or pneumonia. Electronically Signed: Danyelle Hayes MD at 13:38 EDT , Abdomen/Pelvis CT 05/06/24 12:36 IMPRESSION: No bowel obstruction or inflammation. No urinary calculi. No hydronephrosis. Small amount of ascites. No free air or fluid collection. Enlarged liver with fatty infiltration. Trace bilateral pleural effusions with overlying atelectasis. Atherosclerosis and coronary artery disease. Electronically Signed: Arnol Frias MD at 14:56 EDT , Physical Exam Const Constitutional Narrative: intubated, sedated, RASS score is -4 HEENT normocephalic and head/scalp atraumatic Eyes PERRL, EOMs intact bilaterally and conjunctivae normal Resp Resp Narrative: Intubated, sedated, RASS score is -4. FiO2 is 50%. PEEP of 5. Cardio regular rate, regular rhythm, S1 normal heart sound, S2 normal heart sound and no murmurs GI GI Narrative: abdominal distension has improved significantly. No tenderness, no organomegaly. Extremity normal to inspection, normal capillary refill and no clubbing, cyanosis or edema General Extremity: no tenderness to palpation of joints or extremities Neuro Neuro Narrative: intubated, sedated, RASS is -4 Assessment & Plan Assessment/Plan (1) Acute hypercapnic respiratory failure due to obstructive sleep apnea: (2) Back pain: (3) Closed fracture of T8 vertebra: (4) Fall: PLAN: Plan #Acute on chronic hypercapnic respiratory failure likely due to COPD * Patient was initially admitted with a complaint of debility due to mechanical fall and back pain with resultant T8 fracture. * patient was initially hypoxic on admission, requiring 5L of oxygen. He was noted to be lethargic after he arrived on the floor, and stat ABG done showed hypercapnia, with pH of 7.11, pCO2 of 109.8. * He was immediately placed on BIPAP, but was not improving. Repeat ABG after about an hour showed pCOs of 102, with pH of 7.14, pCO2 of 102.8 and pO2 of 114. * Patient was emergently transferred to the ICU. He was continue on the BiPAP and was put on AVAPS setting. However his tidal volumes were very low and patient remained very lethargic. * Repeat ABG done showed pH of 7.13 with pCO2 of 106.5 and pO2 of 76. * patient was emergently intubated due to worsening respiratory status * Remains intubated and sedated. RASS score is -4. * On propofol and fentanyl. Critical care is on board. * Management as per critical care. Patient started on broad-spectrum antibiotics yesterday and is now on IV vancomycin and meropenem due to development of sepsis criteria. Blood cultures obtained. * Patient being diuresed with IV Lasix also. * Breathing treatments bronchodilators. Orogastric tube inserted. * ABG today showed pH of 7.58 with pO2 of 56 and pCO2 of 31.2 #Sepsis criteria * Etiology is not clear. He did develop a fever yesterday and was tachycardic as well. WBC was slightly elevated at 12.2 this morning though was normal yesterday. * Patient currently on IV vancomycin and meropenem. Blood cultures and urine cultures pending * He does have a left leg wound and cultures grew 3+ Staphylococcus aureus. He is on vancomycin which should cover this. * #Hyperkalemia: Resolved. #Debility due to mechanical fall with resultant T8 fracture * Patient got out of bed and fell and hit his head against the fireplace. He also hit his low back. * CT of the brain showed no acute intracranial pathology. * CT of the brain showed no acute cervical spinal fracture or spondylolisthesis and showed moderate spondylosis. Chest CT showed T8 anterior inferior vertebral body: Extension fracture with 2 mm displacement and no evidence of posterior element fracture or displacement. * PT OT on board. Management will likely be nonoperative. Spine surgeon Dr. Manzanares was consulted from the ED. * Currently on fentanyl drip on account of being intubated. * * #Chronic HFpEF * Does not appear to be in exacerbation. BNP is not elevated. * On IV Lasix 40 mg daily. Monitor intake and output. * Fluid restriction to 1500 cc daily. * 2D echo ordered. * Has known EF of 55% from echo done in March 2023. #History of sleep apnea: On BiPAP at home. He does follow with pulmonology and per their note he has not been compliant. The setting of his CPAP was at 11 cm of water. #History of type 2 diabetes mellitus: Hold metformin. Also on home dose of NPH insulin. Will hold that. Insulin sliding scale. ACT checks every 6 hourly as he is currently NPO. #Restless leg syndrome: Pramipexole #History of CAD s/p stents: * He had stents inserted in the LAD in June 2017 and to the mid LAD in March 2019 as well as January 2024 * on aspirin and statin as well as carvedilol and Plavix. #Depression: On buspirone DVT prophylaxis: lovenox Code status: full code * Charges/Coding Visit Charges Inpatient E&M: 38200 Subs Hosp L3
[2024-05-07] MEDS: Vital AF 1.2 Cal Liquid 1,000 ML 50 ML GT (13:26)
[2024-05-07 17:37] LABS: Bedside Glucose 317 mg/dL (74-106)
[2024-05-07] MEDS: Dexmedetomidine 1,000 mcg in 0.9% NS 240 mL 32.3 MCG CONT INF (20:23)
[2024-05-07] MEDS: Pramipexole Di-HCl 1 MG Tablet 2 MG GT (21:43)
[2024-05-07] MEDS: Montelukast 10 MG Tablet GT (21:43)
[2024-05-07] MEDS: Pravastatin 40 MG Tablet GT (21:47)
[2024-05-07] MEDS: Propofol 10MG/Ml 1,000 MG/100 ML Bottle 7 MG CONT INF (23:33)
[2024-05-08] VITALS (37 sets, daily range): BP systolic 94–149; BP diastolic 50–76; PULSE 65–88; RESP 16–23; TEMP 36.6–37.7; O2SAT 90–98; BMI 38.2
[2024-05-08] MEDS: guaiFENesin 10 ML UDC (200MG/10ML) 5 ML GT ×4 (00:11→17:12)
[2024-05-08] MEDS: fentaNYL drip 100 ML 12.5 MCG CONT INF (03:33)
[2024-05-08] MEDS: Dexmedetomidine 1,000 mcg in 0.9% NS 240 mL 35.2 MCG CONT INF ×3 (04:07→17:12)
[2024-05-08] MEDS: Meropenem 1 GM in 0.9% Normal Saline (100mL MB+) 100 ML IV ×3 (05:11→21:20)
[2024-05-08] MEDS: 0.9% Normal Saline (250mL Bag) 250 ML 15 ML IV (05:12)
[2024-05-08] MEDS: CHLORHEXIDINE GLUC 2% CLOTH 1 EACH TOWELETTE TOPICAL (05:15)
--- NOTE | 2024-05-08 05:59 | EKG12_ITS ---
Test Reason : Blood Pressure : / mmHG Vent. Rate : 068 BPM Atrial Rate : 068 BPM P-R Int : 218 ms QRS Dur : 136 ms QT Int : 446 ms P-R-T Axes : 035 -67 002 degrees QTc Int : 474 ms Sinus rhythm with 1st degree A-V block Left axis deviation Right bundle branch block Possible Lateral infarct , age undetermined Inferior infarct (cited on or before 22-JUL-2023) Abnormal ECG When compared with ECG of 01-MAY-2024 00:53, [place] interval has increased Confirmed by Goyo Burleson ([id number]), legal editor ZAFAR TEMPLE ([id number]) on 05/10/2024 6:38:31 AM Referred By: Confirmed By:Goyo Burleson
[2024-05-08 06:19] LABS: Absolute Lymphocyte Count 0.74 X10^3/uL (0.83-4.51); Absolute Neutrophil Count 8.7 X10^3/uL (2.0-7.7); Basophil# 0.04 X10^3/uL; Basophil% 0.4 % (0-1); Eosinophil# 0.13 X10^3/uL; Eosinophils% 1.2 % (0-5); Hemoglobin 11.7 g/dL (13.0-16.5); Lymphocyte # 0.74 X10^3/ul (0.83-4.51); Lymphocyte % 6.8 % (19-41); Mean Corp Hgb Conc 31.6 g/dL (32-36); Mean Corpuscular Hgb 23.8 pg (27.0-32.0); Mean Corpuscular Volume 75.2 fL (80-94); Mean Platelet Vol. 9.9 fl (6.2-12.0); Monocyte# 1.12 X10^3/uL; Monocyte% 10.3 % (0-10); NRBC Flagged by Analyzer 0 % (0-5); Platelet Count 297 K/mm3 (150-450); RBC Distribution Width SD 43.2 fl (35.1-43.9); Red Blood Count 4.92 M/mm3 (4.6-6.2); White Blood Count 10.9 K/mm3 (4.4-11.0)
[2024-05-08 06:53] LABS: Anion Gap 6 (5-15); BUN 19 mg/dL (7-18); BUN/Creat Ratio 17.4 RATIO (10-20); Chloride 93 mmol/L (98-107); Creatinine, Serum 1.09 mg/dL (0.70-1.30); EST Glomerular Filtration Rate 71 mL/min (>60); Est Glom Filt Rate - Afr Amer 85 mL/min (>60); Estimated Creatinine Clearance 75.28 ml/min; Glucose 367 mg/dL (74-106); Potassium 4.1 mmol/L (3.5-5.1); Sodium Level 130 mmol/L (136-145)
[2024-05-08] MEDS: Budesonide Respules 0.5 MG/2 ML AMPUL.NEB. INHALATION ×2 (06:57→19:28)
[2024-05-08] MEDS: Albuterol 2.5 MG/3 ML VIAL.NEB. INHALATION ×3 (06:57→19:28)
[2024-05-08 07:09] LABS: Vancomycin, Trough Level 22.1 ug/mL (5.0-15.0)
[2024-05-08 07:13] LABS: Bedside Glucose 305 mg/dL (74-106)
[2024-05-08] MEDS: Insulin Lispro 100 UNIT/ML INSULN.PEN SC ×4 (08:22→21:23)
[2024-05-08] MEDS: Chlorhexidine 15 ML PO ×2 (08:34→21:05)
[2024-05-08] MEDS: busPIRone 5 MG Tablet 20 MG GT ×2 (08:35→21:06)
[2024-05-08] MEDS: Magnesium Chloride 64 MG Delay Rel.Tablet 128 MG PO (08:35)
[2024-05-08] MEDS: Senna/Docusate Sodium 1 Tablet 2 TABLET GT ×2 (08:35→21:07)
[2024-05-08] MEDS: Vitamin B Comp W-C Capsule 1 CAP GT (08:35)
[2024-05-08] MEDS: Cholecalciferol (VIT D3) 25 MCG TABLET (1,000 UNITS) 50 MCG GT (08:36)
[2024-05-08 09:05] LABS: Bedside Glucose 387 mg/dL (74-106)
[2024-05-08] MEDS: Furosemide 40 MG/4 ML Vial IV ×2 (09:39→17:12)
[2024-05-08] MEDS: Pantoprazole Sodium 40 MG in 0.9% Normal Saline (100mL MB+) 100 ML 330 MG IV (09:39)
[2024-05-08] MEDS: 0.9% Saline Lock 10 ML Syringe IV ×2 (09:39→17:12)
--- NOTE | 2024-05-08 10:20 | PN_ITS ---
Subjective Subjective Patient seen and examined. He remains intubated. RASS score was 0 today. His fentanyl drip had been turned off in anticipation of a spontaneous breathing trial today. He remains on precedex drip. Chemistry showed sodium of 130. Objective Data Objective Data Vital Signs: Vital Signs Temp Pulse Resp BP Pulse Ox O2 Del Method O2 Flow Rate 99.7 F H 79 16 118/56 L 91 Mechanical Ventilator 5 05/08/24 10:00 05/08/24 10:00 05/08/24 10:00 05/08/24 10:00 05/08/24 10:00 05/08/24 10:00 05/06/24 09:30 FiO2 40 05/08/24 10:00 Oxygen Flow Rate (L/min) 5 Oxygen Delivery Method Mechanical Ventilator Weight: 252 lb 10.396 oz Body Mass Index (BMI) 38.2 Intake & Output: Intake and Output for Last 24 Hours 05/06/24 05/07/24 05/08/24 23:59 23:59 23:59 Intake Total 2126.22 / 2254.70 4946.27 / 5091.95 1715.55 / 1715.55 Output Total 3190 / 3425 6585 / 6585 500 / 500 Balance -1063.78 / -1170.30 -1638.73 / -1493.05 1215.55 / 1215.55 Lab / Micro Data 05/08/24 06:00 05/08/24 06:00 Labs: Laboratory Results - last 24 hr 05/07/24 11:54: POC Glucose 309 H 05/07/24 17:02: POC Glucose 317 H 05/07/24 21:39: POC Glucose 305 H 05/08/24 06:00: WBC 10.9, RBC 4.92, Hgb 11.7 L, Hct 37.0 L, MCV 75.2 L, MCH 23.8 L, MCHC 31.6 L, RDW Std Deviation 43.2, RDW Coeff of Jeanette 16.0 H, Plt Count 297, MPV 9.9, Immature Gran % (Auto) 1.300 H, Neut % (Auto) 80.0 H, Lymph % (Auto) 6.8 L, [place] % (Auto) 10.3 H, Eos % (Auto) 1.2, Baso % (Auto) 0.4, Absolute Neuts (auto) 8.7 H, Absolute Lymphs (auto) 0.74 L, Nucleated RBC % 0, Sodium 130 L, Potassium 4.1, Chloride 93 L, Carbon Dioxide 31.0, Anion Gap 6, BUN 19 H, Creatinine 1.09, Estim Creat Clear Calc 75.28, Est GFR (MDRD) Af Amer 85, Est GFR (MDRD) Non-Af 71, BUN/Creatinine Ratio 17.4, Glucose 367 H, Calcium 8.0 L, V ancomycin Trough 22.1 H 05/08/24 08:21: POC Glucose 387 H Micro: Microbiology 05/06/24 18:20 Urine Catheter - Perez Urine Culture - Preliminary Culture exhibits no growth. 05/06/24 12:58 Sputum, Induced/Lukens Gram Stain - Final 05/06/24 12:58 Sputum, Induced/Lukens Respiratory Culture - Preliminary Staphylococcus aureus ABG Data ABG results: ABG 05/07/24 12:01 Specimen Type ART Sample Site R Radial pH 7.58 H Bicarbonate Actual 29.5 H Total CO2 30 Base Excess 8 H O2 Saturation 93 L O2 % 50.0 ABG pCO2 31.2 L ABG pO2 56 L Bryn Test Positive O2 Delivery Device ET Tube Vent Mode AC POC PEEP 5 Radiography Diagnostic Testing: Radiology Impression Echocardiogram 05/06/24 11:15 Interpretation Summary The study was technically difficult. The left ventricular ejection fraction is 55 %. Stage 1 diastolic dysfunction. Mild mitral annular calcification. Ordering Physician: Amaya Pringle Referring Physician: Maya Pradhan Performed By: Caren Ruby, KASIA, RVT Physical Exam Const Constitutional Narrative: intubated, sedated, RASS score is 0 Orientation / Consciousness: lethargic HEENT normocephalic and head/scalp atraumatic Eyes PERRL, EOMs intact bilaterally and conjunctivae normal Neck no lymphadenopathy and supple Resp Resp Narrative: Intubated, sedated, RASS score is 0. FiO2 is 50%. PEEP of 5. Cardio regular rate, regular rhythm, S1 normal heart sound, S2 normal heart sound and no murmurs GI GI Narrative: abdominal distension has improved significantly. No tenderness, no organomegaly. Extremity normal to inspection, full ROM, normal capillary refill and no clubbing, cyanosis or edema General Extremity: no tenderness to palpation of joints or extremities Neuro moves all extremities Neuro Narrative: intubated, sedated, RASS is 0 Sensorium / Orientation: awake Motor Exam: general weakness Assessment & Plan Assessment/Plan (1) Acute hypercapnic respiratory failure due to obstructive sleep apnea: (2) Back pain: (3) Closed fracture of T8 vertebra: (4) Fall: PLAN: Plan #Acute on chronic hypercapnic respiratory failure likely due to COPD * Patient was initially admitted with a complaint of debility due to mechanical fall and back pain with resultant T8 fracture. * patient was initially hypoxic on admission, requiring 5L of oxygen. He was noted to be lethargic after he arrived on the floor, and stat ABG done showed hypercapnia, with pH of 7.11, pCO2 of 109.8. * He was immediately placed on BIPAP, but was not improving. * Patient was emergently transferred to the ICU. He was continue on the BiPAP and was put on AVAPS setting. However his tidal volumes were very low and patient remained very lethargic. * Repeat ABG done showed pH of 7.13 with pCO2 of 106.5 and pO2 of 76. * patient was emergently intubated due to worsening respiratory status * Remains intubated and sedated. RASS score is -4. * On precedex and fentanyl. Critical care is on board. * Management as per critical care. Patient started on broad-spectrum antibiotics yesterday and is now on IV vancomycin and meropenem due to development of sepsis criteria. Blood cultures pending. * Patient being diuresed with IV Lasix also. * Breathing treatments bronchodilators. Orogastric tube inserted. * for spontaneous breathing trial today * #Sepsis criteria * Etiology is not clear. He did develop a fever and was tachycardic as well. WBC was slightly elevated at 12.2 this morning though was normal yesterday. * Patient currently on IV vancomycin and meropenem. Blood cultures and urine cultures pending * sputum cultures positive for Staph aureus * He does have a left leg wound and cultures grew 3+ Staphylococcus aureus. * He remains on IV vancomycin * #Hyperkalemia: Resolved. #Debility due to mechanical fall with resultant T8 fracture * Patient got out of bed and fell and hit his head against the fireplace. He also hit his low back. * CT of the brain showed no acute intracranial pathology. * CT of the brain showed no acute cervical spinal fracture or spondylolisthesis and showed moderate spondylosis. Chest CT showed T8 anterior inferior vertebral body: Extension fracture with 2 mm displacement and no evidence of posterior element fracture or displacement. * PT OT on board. Management will likely be nonoperative. Spine surgeon Dr. Manzanares was consulted from the ED. * Currently on fentanyl drip on account of being intubated. * * #Chronic HFpEF * Does not appear to be in exacerbation. BNP is not elevated. * On IV Lasix 40 mg daily. Monitor intake and output. * Fluid restriction to 1500 cc daily. * 2D echo showed EF of 55% with stge 1 diastolic dysfunction. * Has known EF of 55% from echo done in March 2023. #History of sleep apnea: On BiPAP at home. He does follow with pulmonology and per their note he has not been compliant. The setting of his CPAP was at 11 cm of water. #History of type 2 diabetes mellitus: * Hold metformin. Also on home dose of NPH insulin. * Will hold that. * Insulin sliding scale. * ACT checks every 6 hourly as he is currently NPO. * Currently on tube feeds so will resume NPH insulin #Restless leg syndrome: Pramipexole #History of CAD s/p stents: * He had stents inserted in the LAD in June 2017 and to the mid LAD in March 2019 as well as January 2024 * on aspirin and statin as well as carvedilol and Plavix. #Depression: On buspirone DVT prophylaxis: lovenox Code status: full code * Charges/Coding Visit Charges Inpatient E&M: 54226 Subs Hosp L3
[2024-05-08] MEDS: Vital AF 1.2 Cal Liquid 1,000 ML 60 ML GT (10:31)
[2024-05-08] MEDS: Vancomycin HCl 1,250 MG in 0.9% Normal Saline (250mL Bag) 250 ML 167 MG IV (11:17)
[2024-05-08 11:46] LABS: Bedside Glucose 324 mg/dL (74-106)
[2024-05-08] MEDS: fentaNYL drip 100 ML 10 MCG CONT INF ×2 (12:46→22:23)
--- NOTE | 2024-05-08 12:55 | PHA.PHARE_ITS ---
Consult Antibiotic Management Pharmacy has been consulted to manage selected antibiotic: Vancomycin Type of Intervention Type of Consult: Follow-up Labs Labs: Sodium 130 mmol/L (136-145) L 05/08/24 06:00 Potassium 4.1 mmol/L (3.5-5.1) 05/08/24 06:00 Chloride 93 mmol/L (98-107) L 05/08/24 06:00 Carbon Dioxide 31.0 mmol/L (21.0-32.0) 05/08/24 06:00 Anion Gap 6 (5-15) 05/08/24 06:00 BUN 19 mg/dL (7-18) H 05/08/24 06:00 Creatinine 1.09 mg/dL (0.70-1.30) 05/08/24 06:00 Est GFR (MDRD) Af Amer 85 mL/min (>60) 05/08/24 06:00 Est GFR (MDRD) Non-Af 71 mL/min (>60) 05/08/24 06:00 BUN/Creatinine Ratio 17.4 RATIO (10-20) 05/08/24 06:00 Glucose 367 mg/dL (74-106) H 05/08/24 06:00 Vancomycin Trough 22.1 ug/mL (5.0-15.0) H 05/08/24 06:00 Microbiology Microbiology: Microbiology 05/06/24 18:20 Urine Catheter - Perez Urine Culture - Preliminary Culture exhibits no growth. 05/06/24 12:58 Sputum, Induced/Lukens Gram Stain - Final 05/06/24 12:58 Sputum, Induced/Lukens Respiratory Culture - Preliminary Staphylococcus aureus Goal Trough Goal Trough: 15-20 mcg/mL Pharmacy Plan for Drug Dosing Pharmacy Plan for Drug Dosing: VANCOMYCIN LEVEL RECEIVED Current Vancomycin Dose: 1750mg q12h (30,2029) Number of Doses Received: x3 Vancomycin Level: 22.1 Hours Since Last Dose: 8.5 hours since last dose Renal Function: SrCr 1.09 Renal Function Trend: SrCr improving (was 1.14 on 05/07/25) Lab/Micro: Vancomycin Plan/Comments: resulted trough of 22.1 was higher than the ordered goal trough of 15-20. the resulted trough was a 8.5 hour level instead of a 11- 12 hour level, which would lead to a higher reading. recommend decreasing dose to 1250mg q12h and holding next dose for a 4 hours (12 noon). Check trough earlier than normal to ensure level is not high Pending Level: 05/09/24 at 1130 Pharmacy Service will continue to monitor and adjust dosing as required. Follow-Up Labs Follow-Up Labs: Trough: Vancomycin (05/09/24 at 1130)
--- NOTE | 2024-05-08 13:37 | PCM.PN.TICU ---
Objective Data Objective Data Vital Signs: Vital Signs Last response Temperature 37.6 C H 05/08/24 12:00 Temperature Source Core 05/08/24 12:00 Pulse Rate 73 05/08/24 13:00 Pulse Strength Normal (2+) 05/07/24 22:00 Respiratory Rate 16 05/08/24 13:00 Respiratory Effort Mechanically Ventilated 05/08/24 11:33 Respiratory Depth Normal 05/08/24 11:33 Respiratory Pattern Normal 05/08/24 11:35 Blood Pressure 122/65 H 05/08/24 13:00 Blood Pressure Mean 84 05/08/24 13:00 Blood Pressure Source Monitor 05/08/24 13:00 Blood Pressure Position Semi-Fowlers 05/08/24 13:00 Blood Pressure Location Left Arm 05/08/24 13:00 Pulse Ox 93 05/08/24 13:00 Oxygen Delivery Method Mechanical Ventilator 05/08/24 13:00 Oxygen Flow Rate (L/min) 5 05/06/24 09:30 Fraction of Inspired Oxygen (FIO2) 45 05/08/24 13:00 I&O: I&O Last 24 Hours 05/07/24 05/08/24 05/08/24 23:59 11:59 23:59 Intake Total 2126.04 / 5091.95 1865.13 / 2232.17 367.04 / 2232.17 Output Total 3650 / 6585 1700 / 1700 Balance -1523.96 / -1493.05 165.13 / 532.17 367.04 / 532.17 I&O: Total Stay 05/06/24 02:57 thru 05/08/24 13:18 Intake Total 9304.66 Output Total 03655 Balance -2170.34 Current Meds Ordered / Administered: Current meds ordered / Administered Generic Name Dose Route Start Last Admin Trade Name Freq PRN Reason Stop Dose Admin Acetaminophen 650 mg 05/06/24 16:36 05/07/24 05:25 Acetaminophen 650 Mg/20 Ml Udc GT 650 mg Q6H PRN PRN Administration Pain Score 1-10 Albuterol Sulfate 2.5 mg 05/06/24 09:25 Albuterol 2.5 Mg/3 Ml Vial.Neb. INHALATION Q4H PRN shortness of breath or wheezing Albuterol Sulfate 2.5 mg 05/06/24 09:26 05/08/24 06:57 Albuterol 2.5 Mg/3 Ml Vial.Neb. INHALATION 2.5 mg Q6HWA.RT CHAITANYA Administration Alprazolam 0.25 mg 05/06/24 16:35 Alprazolam 0.25 Mg Tablet GT DAILY PRN anxiety Budesonide 0.5 mg 05/06/24 09:30 05/08/24 06:57 Budesonide Respules 0.5 Mg/2 Ml Ampul.Neb. INHALATION 0.5 mg Q12H.RT CHAITANYA Administration Buspirone HCl 20 mg 05/06/24 22:00 05/08/24 08:35 Buspirone 5 Mg Tablet GT 20 mg BID CHAITANYA Administration Carvedilol 25 mg 05/06/24 17:00 05/08/24 08:12 Carvedilol 25 Mg Tablet GT Not Given BIDCM CHAITANYA Protocol Chlorhexidine Gluconate 15 ml 05/06/24 22:00 05/08/24 08:34 Chlorhexidine 15 Ml PO 15 ml BID CHAITANYA Administration Chlorhexidine Gluconate 1 each 05/07/24 10:00 05/08/24 05:15 Chlorhexidine Gluc 2% Cloth 1 Each [place] TOPICAL 1 each DAILY CHAITANYA Administration Cholecalciferol 50 mcg 05/07/24 10:00 05/08/24 08:36 Cholecalciferol (Vit D3) 25 Mcg Tablet (1,000 Units) GT 50 mcg DAILY CHAITANYA Administration Fluticasone Propionate 1 spray 05/06/24 08:50 Fluticasone 0.05% 1 [place] Nasal.Sry NASAL DAILY PRN nasal spray Furosemide 40 mg 05/06/24 13:25 05/08/24 09:39 Furosemide 40 Mg/4 Ml Vial IV 40 mg BIDLX CHAITANYA Administration Protocol Glucagon 1 mg 05/06/24 08:50 Glucagon 1 Mg/Ml Syringe IM X1 PRN HYPOGLYCEMIA Protocol Guaifenesin 5 ml 05/07/24 11:30 05/08/24 11:17 Guaifenesin 10 Ml Udc (200mg/10ml) GT 5 ml Q6 CHAITANYA Administration Dextrose 250 mls @ 0 mls/hr 05/06/24 08:50 05/06/24 18:52 Dextrose 10%-Water IV 0 mls/hr .Q0M PRN Infusion HYPOGLYCEMIA Protocol As Directed Sodium Chloride 250 mls @ 15 mls/hr 05/06/24 08:55 05/06/24 10:20 IV Infused .[id number] PRN Infusion Additional IVPB Infusion Sodium Chloride 250 mls @ 15 mls/hr 05/06/24 08:55 05/08/24 05:12 IV 15 mls/hr .[id number] PRN Administration Saline Flush Propofol 1,000 mg in 100 mls @ 7.044 mls/hr 05/06/24 11:05 05/08/24 12:00 Diprivan CONT INF 0 mcg/kg/min .Q12H CHAITANYA 0 mls/hr Titration Protocol 10 MCG/KG/MIN Fentanyl 100 mls @ 5 mls/hr 05/06/24 11:05 05/08/24 13:00 CONT INF 100 mcg/hr UD CHAITANYA 10 mls/hr Titration Protocol 50 MCG/HR Enteral Nutritional Formula 1,000 mls @ 60 mls/hr 05/06/24 17:35 05/08/24 10:31 Vital Af 1.2 Ben Liquid GT 60 mls/hr .[id number] CHAITANYA Administration Vancomycin IV-PHARMACY TO DOSE 500 mls @ 250 mls/hr 05/06/24 18:21 1 each/ Sodium Chloride IV X1 PRN Rx to Dose Protocol Meropenem 1 gm/ Sodium 120 mls @ 33 mls/hr 05/06/24 22:00 05/08/24 13:24 Chloride IV 33 mls/hr Q8 CHAITANYA Administration Norepinephrine Bitartrate 8 mg 250 mls @ 9.375 mls/hr 05/06/24 21:15 05/08/24 07:00 / Sodium Chloride CONT INF 0 mcg/min .[id number] CHAITANYA 0 mls/hr Titration Protocol 5 MCG/MIN Pantoprazole Sodium 40 mg/ 110 mls @ 330 mls/hr 05/07/24 10:00 05/08/24 10:11 Sodium Chloride IV Infused Q24 CHAITANYA Infusion Dexmedetomidine HCl 1,000 mcg/ 250 mls @ 14.675 mls/hr 05/07/24 11:35 05/08/24 13:15 Sodium Chloride CONT INF 1.2 mcg/kg/hr .Q17H3M CHAITANYA 35.2 mls/hr Titration Protocol 0.5 MCG/KG/HR Vancomycin HCl 1,250 mg/ 275 mls @ 167 mls/hr 05/08/24 12:00 05/08/24 13:18 Sodium Chloride IV Infused Q12H CHAITANYA Infusion Insulin Human Lispro 0 unit 05/06/24 11:00 05/08/24 11:17 Insulin Lispro 100 Unit/Ml Insuln.Pen SC 6 u ACHS CHAITANYA Administration Protocol Isosorbide Mononitrate 30 mg 05/06/24 10:00 05/08/24 08:35 Isosorbide Mononitrate 30 Mg Tablet PO Not Given DAILY CHAITANYA Protocol Magnesium Chloride 128 mg 05/06/24 10:00 05/08/24 08:35 Magnesium Chloride 64 Mg Delay Rel.Tablet PO 128 mg DAILY CHAITANYA Administration Montelukast Sodium 10 mg 05/06/24 22:00 05/07/24 21:43 Montelukast 10 Mg Tablet GT 10 mg QHS CHAITANYA Administration Morphine Sulfate 2 - 4 mg 05/06/24 08:50 Morphine 2 Mg/Ml Syringe IV Q3H PRN PRN Pain Score 6-10 Multivitamins 1 cap 05/07/24 08:00 05/08/24 08:35 Vitamin B Comp W-C Capsule GT 1 cap DAILYCM CHAITANYA Administration Nitroglycerin 0.4 mg 05/06/24 09:18 Nitroglycerin (Inpatient Use) 0.4 Mg Tab.Subl SL Q5M PRN CARDIAC/CHEST PAIN Ondansetron HCl 4 mg 05/06/24 08:50 Ondansetron 4 Mg/2 Ml Vial IV Q8H PRN PRN NAUSEA/VOMITING Pramipexole Dihydrochloride 2 mg 05/06/24 22:00 05/07/24 21:43 Pramipexole Di-Hcl 1 Mg Tablet GT 2 mg QHS CHAITANYA Administration Pravastatin Sodium 40 mg 05/06/24 22:00 05/07/24 21:47 Pravastatin 40 Mg Tablet GT 40 mg QHS CHAITANYA Administration Senna/Docusate Sodium 2 tablet 05/06/24 22:00 05/08/24 08:35 Senna/Docusate Sodium 1 Tablet GT 2 tablet BID CHAITANYA Administration Sodium Chloride 10 - 40 ml 05/06/24 08:55 05/08/24 09:39 0.9% Saline Lock 10 Ml Syringe IV 10 ml UD PRN Administration SALINE FLUSH Lab / Micro Data 05/08/24 06:00 05/08/24 06:00 Labs: Laboratory Results - last 24 hr 05/07/24 17:02: POC Glucose 317 H 05/07/24 21:39: POC Glucose 305 H 05/08/24 06:00: WBC 10.9, RBC 4.92, Hgb 11.7 L, Hct 37.0 L, MCV 75.2 L, MCH 23.8 L, MCHC 31.6 L, RDW Std Deviation 43.2, RDW Coeff of Jeanette 16.0 H, Plt Count 297, MPV 9.9, Immature Gran % (Auto) 1.300 H, Neut % (Auto) 80.0 H, Lymph % (Auto) 6.8 L, [place] % (Auto) 10.3 H, Eos % (Auto) 1.2, Baso % (Auto) 0.4, Absolute Neuts (auto) 8.7 H, Absolute Lymphs (auto) 0.74 L, Nucleated RBC % 0, Sodium 130 L, Potassium 4.1, Chloride 93 L, Carbon Dioxide 31.0, Anion Gap 6, BUN 19 H, Creatinine 1.09, Estim Creat Clear Calc 75.28, Est GFR (MDRD) Af Amer 85, Est GFR (MDRD) Non-Af 71, BUN/Creatinine Ratio 17.4, Glucose 367 H, Calcium 8.0 L, Vancomycin Trough 22.1 H 05/08/24 08:21: POC Glucose 387 H 05/08/24 11:15: POC Glucose 324 H Micro: Microbiology 05/06/24 18:20 Urine Catheter - Arment[place] Urine Culture - Preliminary Culture exhibits no growth. 05/06/24 12:58 Sputum, Induced/Lukens Gram Stain - Final 05/06/24 12:58 Sputum, Induced/Lukens Respiratory Culture - Preliminary Staphylococcus aureus Assessment and Plan . Assessment and plan: Acute hypoxic/hypercapnic respiratory failure Acute metabiotic encephalopathy Hyperkalemia Hyponatremia COPD T8 fracture DM II - agitated during SAT/SBT , will start seroquel 25 mg BID - MV 450 , RR 16, PEEP 5, FiO2 - 45 - pulmicort and duonebs - lasix IV 40mg BID , negative 2 L - echo diastolic dysfunction - sugar keep 120-180 - dietitian - SSI - SAT/SBT Critical Care Time: 45 mins The entirety of this encounter was done via Telemedicine Physical Exam Const alert and oriented x3 General Appearance: cooperative and well developed Resp normal respiratory effort and no use of accessory muscles Cardio regular rate, regular rhythm and S1 normal heart sound GI normal to inspection, nondistended, normoactive bowel sounds Subjective Subjective SAT/SBT this am but did have some agitation and failed. Lines - PIVS Tube- ETT, OG, armenta Gtts - fent 100 Precedex 1.2 , RASS -2 UOP - 1800 cc /hr
[2024-05-08] MEDS: QUEtiapine 25 MG Tablet PO ×2 (14:39→21:08)
[2024-05-08 16:34] LABS: Bedside Glucose 314 mg/dL (74-106)
[2024-05-08] MEDS: Pramipexole Di-HCl 1 MG Tablet 2 MG GT (21:07)
[2024-05-08] MEDS: Montelukast 10 MG Tablet GT (21:08)
[2024-05-08] MEDS: Pravastatin 40 MG Tablet GT (21:10)
[2024-05-08 21:44] LABS: Bedside Glucose 343 mg/dL (74-106)
[2024-05-09] VITALS (33 sets, daily range): BP systolic 102–156; BP diastolic 35–91; PULSE 66–105; RESP 16–37; TEMP 37.3–37.9; O2SAT 91–100; BMI 39.2
[2024-05-09] MEDS: Dexmedetomidine 1,000 mcg in 0.9% NS 240 mL 35.2 MCG CONT INF (00:27)
[2024-05-09] MEDS: Vancomycin HCl 1,250 MG in 0.9% Normal Saline (250mL Bag) 250 ML 167 MG IV ×3 (00:28→23:49)
[2024-05-09] MEDS: guaiFENesin 10 ML UDC (200MG/10ML) 5 ML GT ×5 (00:28→23:50)
[2024-05-09 02:14] LABS: Absolute Lymphocyte Count 0.84 X10^3/uL (0.83-4.51); Basophil# 0.04 X10^3/uL; Basophil% 0.4 % (0-1); Eosinophil# 0.17 X10^3/uL; Eosinophils% 1.5 % (0-5); Hematocrit 34.5 % (40-54); Hemoglobin 10.9 g/dL (13.0-16.5); Lymphocyte # 0.84 X10^3/ul (0.83-4.51); Lymphocyte % 7.4 % (19-41); Mean Corp Hgb Conc 31.6 g/dL (32-36); Mean Corpuscular Hgb 23.9 pg (27.0-32.0); Mean Corpuscular Volume 75.7 fL (80-94); Mean Platelet Vol. 9.4 fl (6.2-12.0); Monocyte# 1.14 X10^3/uL; Monocyte% 10.1 % (0-10); NRBC Flagged by Analyzer 0 % (0-5); Neutrophil # 9.02 X10^3/uL (2.7-7.7); Neutrophil % 79.7 % (47-70); Platelet Count 296 K/mm3 (150-450); RBC Distribution Width CV 15.9 % (11.6-14.6); RBC Distribution Width SD 43.7 fl (35.1-43.9); Red Blood Count 4.56 M/mm3 (4.6-6.2); White Blood Count 11.3 K/mm3 (4.4-11.0)
[2024-05-09 02:27] LABS: Anion Gap 5 (5-15); BUN 17 mg/dL (7-18); BUN/Creat Ratio 17.8 RATIO (10-20); Calcium,Total 7.7 mg/dL (8.5-10.1); Chloride 96 mmol/L (98-107); Creatinine, Serum 0.95 mg/dL (0.70-1.30); EST Glomerular Filtration Rate 82 mL/min (>60); Est Glom Filt Rate - Afr Amer 100 mL/min (>60); Estimated Creatinine Clearance 86.37 ml/min; Glucose 368 mg/dL (74-106); Potassium 3.7 mmol/L (3.5-5.1); Sodium Level 133 mmol/L (136-145)
[2024-05-09] MEDS: Meropenem 1 GM in 0.9% Normal Saline (100mL MB+) 100 ML IV ×3 (05:11→20:17)
[2024-05-09] MEDS: 0.9% Saline Lock 10 ML Syringe IV ×3 (05:12→16:50)
[2024-05-09] MEDS: Vital AF 1.2 Cal Liquid 1,000 ML 60 ML GT (06:03)
[2024-05-09] MEDS: Budesonide Respules 0.5 MG/2 ML AMPUL.NEB. INHALATION ×2 (06:52→18:45)
[2024-05-09] MEDS: Albuterol 2.5 MG/3 ML VIAL.NEB. INHALATION ×3 (06:52→18:45)
--- NOTE | 2024-05-09 06:58 | RAD_ITS ---
STUDY: X-RAY CHEST REASON FOR EXAM: Male, 73 years old. ordered TECHNIQUE: Single AP portable view of the chest. COMPARISON: 05/06/2024 FINDINGS: Endotracheal tube and nasogastric tube both which are unchanged. Poor inspiration with bibasilar atelectasis. There is no demonstrated pleural abnormality. There is moderate cardiac enlargement. Normal mediastinum and calin. Normal visualized pulmonary arteries. Normal visualized aortic arch and descending thoracic aorta. Normal visualized thoracic spine. Normal visualized ribs, clavicles, and shoulders. There is no demonstrated abnormality of the visualized soft tissue structures of the upper abdomen. RAD/Chest 1 View IMPRESSION: No change from 05/06/2024. Electronically Signed: Yoshi Jacome MD at 8:28 EDT ,
[2024-05-09] MEDS: Dexmedetomidine 1,000 mcg in 0.9% NS 240 mL 41.1 MCG CONT INF ×2 (07:00→13:23)
--- NOTE | 2024-05-09 07:31 | PCM.PN.INT ---
Assessment & Plan Assessment/Plan (1) Acute respiratory failure with hypoxia and hypercarbia: PLAN: Plan RECOMMENDATIONS: 1. Continue assist-control mode of mechanical ventilation. Wean FiO2 and PEEP as tolerated. 2. Continue antimicrobial therapy. 3. Continue current sedation regimen. Increase Seroquel to 50 mg twice daily. 4. Continue tube feeding as tolerated. 5. Aggressive bowel regimen. 6. Start long-acting insulin and continue sliding scale coverage. 7. Diuresis, as tolerated by hemodynamics and renal function. 8. Continue appropriate ICU prophylaxis. IMPRESSIONS: 1. Acute respiratory failure with hypoxemia and hypercapnia The patient has a reported history of asthma and is currently followed on an outpatient basis in the pulmonary medicine clinic. In addition, he has a known history of sleep apnea, noncompliant with PAP therapy. He appears to be experiencing an acute exacerbation of his underlying asthma secondary to staphylococcal pneumonia. Accordingly, the patient will be continued on antimicrobials and bronchodilators. I agree with continuing gentle diuresis as tolerated by hemodynamics and renal function. The patient will be continued on Precedex and fentanyl for sedation. Given that he failed his breathing trial this morning, we will plan to increase his Seroquel to 50 mg twice daily. The patient will be continued on tube feeding along with appropriate ICU prophylaxis, with plans to repeat his spontaneous awakening and breathing trials tomorrow. 2. Recent fall with resultant T8 fracture Physical therapy to continue to work with the patient. 3. History of heart failure with preserved ejection fraction Continue diuresis as tolerated by hemodynamics and renal function. 4. History of sleep apnea with PAP noncompliance/diabetes mellitus/history of coronary artery disease status status post PCI Complicates care, management, recovery and prognosis. Continue supportive measures as noted above. The patient will be started on long-acting insulin and continued on sliding scale coverage today. Upon successful extubation, recommend initiation of PAP therapy with naps and nightly. TIME: 35 minutes of critical care time, independent of procedures, was spent addressing the patient's acute respiratory failure with hypoxemia and hypercapnia, recent fall with T8 fracture, heart failure with preserved ejection fraction obstructive sleep apnea, review of all data and collaboration with the care team. Subjective Subjective The patient was seen and examined at the bedside this morning. Events from the last 24 hours have been reviewed. The patient is currently afebrile, hemodynamically stable and maintaining appropriate oxygen saturations on assist-control mode mechanical ventilation with an FiO2 requirement of 45%. Today is ventilator #4. The patient failed his spontaneous breathing trial again this morning. He remains sedated on fentanyl, Precedex and Seroquel. He has been tolerant of tube feeding. The patient remains on antimicrobials along with scheduled Lasix. White count is stable this morning with a hemoglobin of 11 g/dL and normal platelet count. Creatinine is within normal limits. The patient's blood sugars have been running on the high side as well. Objective Data Objective Data The patient's most recent lab work, culture data and imaging studies have all been personally reviewed. Surface echocardiogram completed on May 07 demonstrated stage I diastolic dysfunction with an ejection fraction of 55%. Sputum culture dated May 06 was positive for Staph aureus. Vital Signs: Vital Signs Temp Pulse Resp BP Pulse Ox O2 Del Method O2 Flow Rate 99.2 F H 76 16 116/62 94 Mechanical Ventilator 5 05/09/24 05:00 05/09/24 07:00 05/09/24 07:00 05/09/24 07:00 05/09/24 07:00 05/09/24 07:00 05/06/24 09:30 FiO2 45 05/09/24 07:00 Oxygen Flow Rate (L/min) 5 Oxygen Delivery Method Mechanical Ventilator Weight: 258 lb 2.581 oz Body Mass Index (BMI) 39.2 Intake & Output: Intake and Output for Last 24 Hours 05/07/24 05/08/24 05/09/24 23:59 23:59 23:59 Intake Total 4946.27 / 5091.95 3245.37 / 3390.57 1926.16 / 192.16 Output Total 6585 / 6585 2550 / 4050 1900 / 1900 Balance -1638.73 / -1493.05 695.37 / -659.43 26.16 / .16 Lab / Micro Data Attestation: I reviewed the patient's lab results. 05/09/24 02:02 05/09/24 02:02 Labs: Laboratory Results - last 24 hr 05/08/24 08:21: POC Glucose 387 H 05/08/24 11:15: POC Glucose 324 H 05/08/24 16:12: POC Glucose 314 H 05/08/24 21:22: POC Glucose 343 H 05/09/24 02:02: WBC 11.3 H, RBC 4.56 L, Hgb 10.9 L, Hct 34.5 L, MCV 75.7 L, MCH 23.9 L, MCHC 31.6 L, RDW Std Deviation 43.7, RDW Coeff of Jeanette 15.9 H, Plt Count 296, MPV 9.4, Immature Gran % (Auto) 0.900, Neut % (Auto) 79.7 H, Lymph % (Auto) 7.4 L, [place] % (Auto) 10.1 H, Eos % (Auto) 1.5, Baso % (Auto) 0.4, Absolute Neuts (auto) 9.0 H, Absolute Lymphs (auto) 0.84, Nucleated RBC % 0, Sodium 133 L, Potassium 3.7, Chloride 96 L, Carbon Dioxide 32.0, Anion Gap 5, BUN 17, Creatinine 0.95, Estim Creat Clear Calc 86.37, Est GFR (MDRD) Af Amer 100, Est GFR (MDRD) Non-Af 82, BUN/Creatinine Ratio 17.8, Glucose 368 H, Calcium 7.7 L Micro: Microbiology 05/06/24 18:20 Urine Catheter - Perez Urine Culture - Preliminary Culture exhibits no growth. 05/06/24 12:58 Sputum, Induced/Lukens Gram Stain - Final 05/06/24 12:58 Sputum, Induced/Lukens Respiratory Culture - Preliminary Staphylococcus aureus Physical Exam Const Constitutional Narrative: Intubated, sedated and mechanically ventilated. No ventilator dyssynchrony noted. HEENT normocephalic and head/scalp atraumatic Mouth: endotracheal tube in place and OG tube in place Eyes EOMs intact bilaterally and conjunctivae normal Neck supple General: trachea midline Chest inspection of chest normal Resp Resp Narrative: Coarse mechanical breath sounds. Auscultation: diminished lung sounds Cardio regular rate and regular rhythm GI normal to inspection, nondistended, normoactive bowel sounds Extremity Extremity Narrative: Wrapped lower extremities. General Extremity: Negative for clubbing Skin no rashes or lesions noted Neuro Sensorium / Orientation: sedated on vent Charges/Coding Procedures Hospitalists Procedures: [id number] Critical Care 1st Hr
[2024-05-09] MEDS: Furosemide 40 MG/4 ML Vial IV ×2 (08:03→16:50)
[2024-05-09] MEDS: Cholecalciferol (VIT D3) 25 MCG TABLET (1,000 UNITS) 50 MCG GT (08:03)
[2024-05-09] MEDS: Magnesium Chloride 64 MG Delay Rel.Tablet 128 MG PO (08:03)
[2024-05-09] MEDS: Carvedilol 25 MG Tablet GT ×2 (08:04→16:50)
[2024-05-09] MEDS: QUEtiapine 25 MG Tablet 50 MG PO ×2 (08:04→20:20)
[2024-05-09] MEDS: busPIRone 5 MG Tablet 20 MG GT ×2 (08:04→20:19)
[2024-05-09] MEDS: Senna/Docusate Sodium 1 Tablet 2 TABLET GT ×2 (08:04→20:18)
[2024-05-09] MEDS: Vitamin B Comp W-C Capsule 1 CAP GT (08:05)
[2024-05-09] MEDS: CHLORHEXIDINE GLUC 2% CLOTH 1 EACH TOWELETTE TOPICAL (08:05)
[2024-05-09] MEDS: Chlorhexidine 15 ML PO ×2 (08:05→20:17)
[2024-05-09] MEDS: Enoxaparin 40 MG/0.4 ML Syringe SC (08:24)
[2024-05-09] MEDS: Polyethylene Glycol 3350 17 GM PACKET GT (08:24)
[2024-05-09] MEDS: Pantoprazole Sodium 40 MG in 0.9% Normal Saline (100mL MB+) 100 ML 330 MG IV (08:24)
[2024-05-09 08:55] LABS: Bedside Glucose 362 mg/dL (74-106)
[2024-05-09] MEDS: Vancomycin Trough/Random Due 1 LAB MC ×2 (10:16→10:17)
[2024-05-09] MEDS: Insulin Glargine-YFGN 100 UNIT/ML Pen 20 UNIT SC (10:17)
--- NOTE | 2024-05-09 11:10 | NURSING ---
1100 CPOT charted under PRN Pain Assessment, Fentanyl shows it is timed out on the MAR, still some left in bag. Running @100
[2024-05-09] MEDS: fentaNYL drip 100 ML 10 MCG CONT INF (11:21)
[2024-05-09] MEDS: Insulin Lispro 100 UNIT/ML INSULN.PEN SC ×3 (11:41→23:49)
[2024-05-09 11:47] LABS: Pathologist Review Reviewed
[2024-05-09 12:00] LABS: Vancomycin, Trough Level 16.8 ug/mL (5.0-15.0)
[2024-05-09 12:08] LABS: Bedside Glucose 383 mg/dL (74-106)
--- NOTE | 2024-05-09 12:10 | PCM.RX.CS ---
Consult Antibiotic Management Pharmacy has been consulted to manage selected antibiotic: Vancomycin Type of Intervention Type of Consult: Follow-up Suspected Infection Suspected Infection: Sepsis and Pneumonia Prior Doses of Antibiotics Prior Doses of Antibiotics Received/Current Regimen: Vancomycin 1250 mg Q12H, last dose given 05/09/24 @ 0028, the patient is also on piperacillin/tazobactam Labs Labs: Sodium 133 mmol/L (136-145) L 05/09/24 02:02 Potassium 3.7 mmol/L (3.5-5.1) 05/09/24 02:02 Chloride 96 mmol/L (98-107) L 05/09/24 02:02 Carbon Dioxide 32.0 mmol/L (21.0-32.0) 05/09/24 02:02 Anion Gap 5 (5-15) 05/09/24 02:02 BUN 17 mg/dL (7-18) 05/09/24 02:02 Creatinine 0.95 mg/dL (0.70-1.30) 05/09/24 02:02 Est GFR (MDRD) Af Amer 100 mL/min (>60) 05/09/24 02:02 Est GFR (MDRD) Non-Af 82 mL/min (>60) 05/09/24 02:02 BUN/Creatinine Ratio 17.8 RATIO (10-20) 05/09/24 02:02 Glucose 368 mg/dL (74-106) H 05/09/24 02:02 Vancomycin Trough 16.8 ug/mL (5.0-15.0) H 05/09/24 11:29 Microbiology Microbiology: Microbiology 05/06/24 18:25 Blood Culture (Wb) - Anticubital Left Blood Culture - Preliminary No growth in 48 hours. 05/06/24 18:20 Urine Catheter - Perez Urine Culture - Final Culture exhibits no growth. 05/06/24 12:58 Sputum, Induced/Lukens Gram Stain - Final 05/06/24 12:58 Sputum, Induced/Lukens Respiratory Culture - Final Staphylococcus aureus Dosing Weight Weight used for dosin kg Estimated Creatinine Clearance Estimated Creatinine Clearance: ~86 Goal Trough Goal Trough: 15-20 mcg/mL Pharmacy Plan for Drug Dosing Pharmacy Plan for Drug Dosing: Vancomycin trough = 16.8, continue current regimen Pharmacy Service will continue to monitor and adjust dosing as required. Follow-Up Labs Follow-Up Labs: Trough: Vancomycin Date/Time Labs Ordered Labs to be done on [date and time ordered]: 05/11/24 @ 3900
--- NOTE | 2024-05-09 13:25 | NURSING ---
Humera timed out on NOV 1307, still some left in bag, running @1.4 until new bag hung 1324.
--- NOTE | 2024-05-09 13:49 | PN_ITS ---
Subjective Subjective Patient seen and examined. He remains intubated and sedated. He failed his breathing trial yesterday. Unable to do review of systems. Objective Data Objective Data Vital Signs: Vital Signs Temp Pulse Resp BP Pulse Ox O2 Del Method O2 Flow Rate 100.2 F H 78 16 125/65 H 92 Mechanical Ventilator 5 05/09/24 12:00 05/09/24 13:00 05/09/24 13:00 05/09/24 13:00 05/09/24 13:00 05/09/24 13:00 05/06/24 09:30 FiO2 45 05/09/24 13:00 Oxygen Flow Rate (L/min) 5 Oxygen Delivery Method Mechanical Ventilator Weight: 258 lb 2.581 oz Body Mass Index (BMI) 39.2 Intake & Output: Intake and Output for Last 24 Hours 05/07/24 05/08/24 05/09/24 23:59 23:59 23:59 Intake Total 4946.27 / 5091.95 3245.37 / 3390.57 2579.82 / 2579.82 Output Total 6585 / 6585 2550 / 4050 3775 / 3775 Balance -1638.73 / -1493.05 695.37 / -659.43 -1195.18 / -1195.18 Lab / Micro Data 05/09/24 02:02 05/09/24 02:02 Labs: Laboratory Results - last 24 hr 05/07/24 03:31: Diff Path Review Reviewed 05/08/24 16:12: POC Glucose 314 H 05/08/24 21:22: POC Glucose 343 H 05/09/24 02:02: WBC 11.3 H, RBC 4.56 L, Hgb 10.9 L, Hct 34.5 L, MCV 75.7 L, MCH 23.9 L, MCHC 31.6 L, RDW Std Deviation 43.7, RDW Coeff of Jeanette 15.9 H, Plt Count 296, MPV 9.4, Immature Gran % (Auto) 0.900, Neut % (Auto) 79.7 H, Lymph % (Auto) 7.4 L, [place] % (Auto) 10.1 H, Eos % (Auto) 1.5, Baso % (Auto) 0.4, Absolute Neuts (auto) 9.0 H, Absolute Lymphs (auto) 0.84, Nucleated RBC % 0, Sodium 133 L, Potassium 3.7, Chloride 96 L, Carbon Dioxide 32.0, Anion Gap 5, BUN 17, Creatinine 0.95, Estim Creat Clear Calc 86.37, Est GFR (MDRD) Af Amer 100, Est GFR (MDRD) Non-Af 82, BUN/Creatinine Ratio 17.8, Glucose 368 H, Calcium 7.7 L 05/09/24 07:57: POC Glucose 362 H 05/09/24 11:29: Vancomycin Trough 16.8 H 05/09/24 11:40: POC Glucose 383 H Micro: Microbiology 05/06/24 18:25 Blood Culture (Wb) - Anticubital Left Blood Culture - Preliminary No growth in 48 hours. 05/06/24 18:20 Urine Catheter - Perez Urine Culture - Final Culture exhibits no growth. 05/06/24 12:58 Sputum, Induced/Lukens Gram Stain - Final 05/06/24 12:58 Sputum, Induced/Lukens Respiratory Culture - Final Staphylococcus aureus Radiography Diagnostic Testing: Radiology Impression Chest X-Ray 05/09/24 06:58 IMPRESSION: No change from 05/06/2024. Electronically Signed: Yoshi Jacome MD at 8:28 EDT , Physical Exam Const Constitutional Narrative: intubated, sedated, RASS score is 0 Orientation / Consciousness: lethargic HEENT normocephalic and head/scalp atraumatic Eyes PERRL, EOMs intact bilaterally and conjunctivae normal Neck no lymphadenopathy and supple Resp Resp Narrative: Intubated, sedated, RASS score is 0. FiO2 is 45%. PEEP of 5. Cardio regular rate, regular rhythm, S1 normal heart sound, S2 normal heart sound and no murmurs GI GI Narrative: abdominal distension has improved significantly. No tenderness, no organomegaly. Extremity normal to inspection, full ROM, normal capillary refill and no clubbing, cyanosis or edema General Extremity: no tenderness to palpation of joints or extremities Neuro moves all extremities Neuro Narrative: intubated, sedated, RASS is -3 Sensorium / Orientation: awake Motor Exam: general weakness Assessment & Plan Assessment/Plan (1) Acute hypercapnic respiratory failure due to obstructive sleep apnea: (2) Back pain: (3) Closed fracture of T8 vertebra: (4) Fall: PLAN: Plan #Acute on chronic hypercapnic respiratory failure likely due to COPD * Patient was initially admitted with a complaint of debility due to mechanical fall and back pain with resultant T8 fracture. * patient was initially hypoxic on admission, requiring 5L of oxygen. He was noted to be lethargic after he arrived on the floor, and stat ABG done showed hypercapnia, with pH of 7.11, pCO2 of 109.8. * He was immediately placed on BIPAP, but was not improving. * Patient was emergently transferred to the ICU. He was continue on the BiPAP and was put on AVAPS setting. However his tidal volumes were very low and patient remained very lethargic. * Repeat ABG done showed pH of 7.13 with pCO2 of 106.5 and pO2 of 76. * patient was emergently intubated due to worsening respiratory status * Remains intubated and sedated. RASS score is -4. * On precedex and fentanyl. Critical care is on board. * Management as per critical care. Patient started on broad-spectrum antibiotics yesterday and is now on IV vancomycin and meropenem due to development of sepsis criteria. Blood cultures pending. * Patient being diuresed with IV Lasix also. * Breathing treatments bronchodilators. Orogastric tube inserted. * failed spontaneous breathing trial. * #Sepsis criteria * Etiology is not clear. He did develop a fever and was tachycardic as well. WBC was slightly elevated at 12.2 this morning though was normal yesterday. * Patient currently on IV vancomycin and meropenem. Blood cultures and urine cultures pending * sputum cultures positive for Staph aureus * He does have a left leg wound and cultures grew 3+ Staphylococcus aureus. * He remains on IV vancomycin * #Hyperkalemia: Resolved. #Debility due to mechanical fall with resultant T8 fracture * Patient got out of bed and fell and hit his head against the fireplace. He also hit his low back. * CT of the brain showed no acute intracranial pathology. * CT of the brain showed no acute cervical spinal fracture or spondylolisthesis and showed moderate spondylosis. Chest CT showed T8 anterior inferior vertebral body: Extension fracture with 2 mm displacement and no evidence of posterior element fracture or displacement. * PT OT on board. Management will likely be nonoperative. Spine surgeon Dr. Manzanares was consulted from the ED. * Currently on fentanyl drip on account of being intubated. * * #Chronic HFpEF * Does not appear to be in exacerbation. BNP is not elevated. * On IV Lasix 40 mg daily. Monitor intake and output. * Fluid restriction to 1500 cc daily. * 2D echo showed EF of 55% with stge 1 diastolic dysfunction. * Has known EF of 55% from echo done in March 2023. #History of sleep apnea: On BiPAP at home. He does follow with pulmonology and per their note he has not been compliant. The setting of his CPAP was at 11 cm of water. #History of type 2 diabetes mellitus: * Hold metformin. Also on home dose of NPH insulin. * Will hold that. * Insulin sliding scale. * ACT checks every 6 hourly as he is currently NPO. * Currently on tube feeds so will resume NPH insulin #Restless leg syndrome: Pramipexole #History of CAD s/p stents: * He had stents inserted in the LAD in June 2017 and to the mid LAD in March 2019 as well as January 2024 * on aspirin and statin as well as carvedilol and Plavix. #Depression: On buspirone DVT prophylaxis: lovenox Code status: full code * Charges/Coding Visit Charges Inpatient E&M: 16151 Subs Hosp L3
[2024-05-09 17:40] LABS: Bedside Glucose 392 mg/dL (74-106)
[2024-05-09] MEDS: Dexmedetomidine 1,000 mcg in 0.9% NS 240 mL 44 MCG CONT INF (19:35)
[2024-05-09] MEDS: fentaNYL drip 100 ML 15 MCG CONT INF (20:16)
[2024-05-09] MEDS: Pramipexole Di-HCl 1 MG Tablet 2 MG GT (20:17)
[2024-05-09] MEDS: Pravastatin 40 MG Tablet GT (20:17)
[2024-05-09] MEDS: Montelukast 10 MG Tablet GT (20:19)
[2024-05-09] MEDS: 0.9% Normal Saline (250mL Bag) 250 ML 15 ML IV (23:53)
[2024-05-10] VITALS (37 sets, daily range): BP systolic 117–166; BP diastolic 55–92; PULSE 17–82; RESP 16–36; TEMP 36.9–37.9; O2SAT 90–98; BMI 38.9
[2024-05-10] MEDS: Vital AF 1.2 Cal Liquid 1,000 ML 60 ML GT ×2 (00:04→20:35)
[2024-05-10 00:33] LABS: Bedside Glucose 304 mg/dL (74-106)
[2024-05-10] MEDS: Dexmedetomidine 1,000 mcg in 0.9% NS 240 mL 44 MCG CONT INF ×4 (01:27→18:27)
[2024-05-10 02:12] LABS: Absolute Lymphocyte Count 0.87 X10^3/uL (0.83-4.51); Absolute Neutrophil Count 8.2 X10^3/uL (2.0-7.7); Basophil# 0.05 X10^3/uL; Basophil% 0.5 % (0-1); Eosinophil# 0.24 X10^3/uL; Eosinophils% 2.2 % (0-5); Hematocrit 35.3 % (40-54); Lymphocyte # 0.87 X10^3/ul (0.83-4.51); Lymphocyte % 8.2 % (19-41); Mean Corp Hgb Conc 31.2 g/dL (32-36); Mean Corpuscular Hgb 23.5 pg (27.0-32.0); Mean Corpuscular Volume 75.3 fL (80-94); Mean Platelet Vol. 9.5 fl (6.2-12.0); Monocyte# 1.28 X10^3/uL; NRBC Flagged by Analyzer 0 % (0-5); Neutrophil # 8.15 X10^3/uL (2.7-7.7); Neutrophil % 76.4 % (47-70); Platelet Count 311 K/mm3 (150-450); RBC Distribution Width CV 16.4 % (11.6-14.6); Red Blood Count 4.69 M/mm3 (4.6-6.2); White Blood Count 10.7 K/mm3 (4.4-11.0)
[2024-05-10 02:27] LABS: Anion Gap 5 (5-15); BUN 20 mg/dL (7-18); BUN/Creat Ratio 22.3 RATIO (10-20); Calcium,Total 8.3 mg/dL (8.5-10.1); Chloride 96 mmol/L (98-107); EST Glomerular Filtration Rate 88 mL/min (>60); Est Glom Filt Rate - Afr Amer 107 mL/min (>60); Estimated Creatinine Clearance 92.22 ml/min; Glucose 356 mg/dL (74-106); Potassium 3.7 mmol/L (3.5-5.1); Sodium Level 133 mmol/L (136-145)
[2024-05-10] MEDS: fentaNYL drip 100 ML 15 MCG CONT INF ×3 (03:15→17:37)
[2024-05-10] MEDS: QUEtiapine 25 MG Tablet 50 MG PO ×2 (04:07→20:31)
[2024-05-10] MEDS: guaiFENesin 10 ML UDC (200MG/10ML) 5 ML GT ×3 (05:27→16:33)
[2024-05-10] MEDS: Insulin Lispro 100 UNIT/ML INSULN.PEN SC ×4 (05:27→23:45)
[2024-05-10] MEDS: Meropenem 1 GM in 0.9% Normal Saline (100mL MB+) 100 ML IV ×3 (05:27→20:35)
[2024-05-10 06:02] LABS: Bedside Glucose 383 mg/dL (74-106)
[2024-05-10] MEDS: Albuterol 2.5 MG/3 ML VIAL.NEB. INHALATION ×3 (07:02→19:10)
[2024-05-10] MEDS: Budesonide Respules 0.5 MG/2 ML AMPUL.NEB. INHALATION ×2 (07:02→19:10)
[2024-05-10] MEDS: Vitamin B Comp W-C Capsule 1 CAP GT (08:52)
[2024-05-10] MEDS: CHLORHEXIDINE GLUC 2% CLOTH 1 EACH TOWELETTE TOPICAL (08:53)
[2024-05-10] MEDS: Carvedilol 25 MG Tablet GT ×2 (08:53→16:33)
[2024-05-10] MEDS: Chlorhexidine 15 ML PO ×2 (08:53→20:32)
[2024-05-10] MEDS: busPIRone 5 MG Tablet 20 MG GT ×2 (08:53→20:31)
[2024-05-10] MEDS: Magnesium Chloride 64 MG Delay Rel.Tablet 128 MG PO (08:54)
[2024-05-10] MEDS: Senna/Docusate Sodium 1 Tablet 2 TABLET GT ×2 (08:54→20:31)
[2024-05-10] MEDS: Polyethylene Glycol 3350 17 GM PACKET GT (08:54)
[2024-05-10] MEDS: Cholecalciferol (VIT D3) 25 MCG TABLET (1,000 UNITS) 50 MCG GT (08:54)
[2024-05-10] MEDS: Furosemide 40 MG/4 ML Vial IV ×2 (08:55→17:35)
[2024-05-10] MEDS: Enoxaparin 40 MG/0.4 ML Syringe SC (08:55)
[2024-05-10] MEDS: Pantoprazole Sodium 40 MG in 0.9% Normal Saline (100mL MB+) 100 ML 330 MG IV (10:10)
--- NOTE | 2024-05-10 10:10 | PN_ITS ---
Subjective Subjective Patient seen and examined. He did fail spontaneous breathing trial again. RASS score is 0. He has otherwise remained hemodynamically stable. He does have a mild fever this morning at 99.4F. Objective Data Objective Data Vital Signs: Vital Signs Temp Pulse Resp BP Pulse Ox O2 Del Method O2 Flow Rate 99.5 F H 72 16 124/65 H 92 Mechanical Ventilator 5 05/10/24 07:00 05/10/24 09:31 05/10/24 09:31 05/10/24 08:00 05/10/24 09:31 05/10/24 08:00 05/06/24 09:30 FiO2 40 05/10/24 07:03 Oxygen Flow Rate (L/min) 5 Oxygen Delivery Method Mechanical Ventilator Weight: 256 lb 9.889 oz Body Mass Index (BMI) 38.9 Intake & Output: Intake and Output for Last 24 Hours 05/08/24 05/09/24 05/10/24 23:59 23:59 23:59 Intake Total 3245.37 / 3390.57 4799.65 / 5118.65 2093.13 / 2093.13 Output Total 2550 / 4050 6075 / 6675 1150 / 1150 Balance 695.37 / -659.43 -1275.35 / -1556.35 943.13 / 943.13 Lab / Micro Data 05/10/24 02:06 05/10/24 02:06 Labs: Laboratory Results - last 24 hr 05/07/24 03:31: Diff Path Review Reviewed 05/09/24 11:29: Vancomycin Trough 16.8 H 05/09/24 11:40: POC Glucose 383 H 05/09/24 17:21: POC Glucose 392 H 05/09/24 23:43: POC Glucose 304 H 05/10/24 02:06: WBC 10.7, RBC 4.69, Hgb 11.0 L, Hct 35.3 L, MCV 75.3 L, MCH 23.5 L, MCHC 31.2 L, RDW Std Deviation 44.0 H, RDW Coeff of Jeanette 16.4 H, Plt Count 311, MPV 9.5, Immature Gran % (Auto) 0.700, Neut % (Auto) 76.4 H, Lymph % (Auto) 8.2 L, [place] % (Auto) 12.0 H, Eos % (Auto) 2.2, Baso % (Auto) 0.5, Absolute Neuts (auto) 8.2 H, Absolute Lymphs (auto) 0.87, Nucleated RBC % 0, Sodium 133 L, Potassium 3.7, Chloride 96 L, Carbon Dioxide 32.0, Anion Gap 5, BUN 20 H, Creatinine 0.90, Estim Creat Clear Calc 92.22, Est GFR (MDRD) Af Amer 107, Est GFR (MDRD) Non-Af 88, BUN/Creatinine Ratio 22.3 H, Glucose 356 H, Calcium 8.3 L 05/10/24 05:25: POC Glucose 383 H Micro: Microbiology 05/06/24 18:25 Blood Culture (Wb) - Anticubital Left Blood Culture - Preliminary No growth in 48 hours. 05/06/24 18:20 Urine Catheter - Perez Urine Culture - Final Culture exhibits no growth. 05/06/24 12:58 Sputum, Induced/Lukens Gram Stain - Final 05/06/24 12:58 Sputum, Induced/Lukens Respiratory Culture - Final Staphylococcus aureus Physical Exam Const Constitutional Narrative: intubated, sedated, RASS score is 0 Orientation / Consciousness: lethargic HEENT normocephalic and head/scalp atraumatic Eyes PERRL, EOMs intact bilaterally and conjunctivae normal Neck no lymphadenopathy and supple Resp Resp Narrative: Intubated, sedated, RASS score is 0. FiO2 is 45%. PEEP of 5. Cardio regular rate, regular rhythm, S1 normal heart sound and S2 normal heart sound GI normal to inspection, nondistended, normoactive bowel sounds, soft to palpation, non-tender and non-distended Extremity normal to inspection, full ROM, normal capillary refill and no clubbing, cyanosis or edema General Extremity: no tenderness to palpation of joints or extremities Skin General Skin Exam: no breakdown Neuro Neuro Narrative: intubated, sedated, RASS is 0 Sensorium / Orientation: awake Motor Exam: general weakness Assessment & Plan Assessment/Plan (1) Acute hypercapnic respiratory failure due to obstructive sleep apnea: (2) Back pain: (3) Closed fracture of T8 vertebra: (4) Fall: PLAN: Plan #Acute on chronic hypercapnic respiratory failure likely due to COPD * Patient was initially admitted with a complaint of debility due to mechanical fall and back pain with resultant T8 fracture. * patient was initially hypoxic on admission, requiring 5L of oxygen. He was noted to be lethargic after he arrived on the floor, and stat ABG done showed hypercapnia, with pH of 7.11, pCO2 of 109.8. * He was immediately placed on BIPAP, but was not improving. * Patient was emergently transferred to the ICU. He was continue on the BiPAP and was put on AVAPS setting. However his tidal volumes were very low and patient remained very lethargic. * Repeat ABG done showed pH of 7.13 with pCO2 of 106.5 and pO2 of 76. * patient was emergently intubated due to worsening respiratory status * Remains intubated and sedated. RASS score is -4. * On precedex and fentanyl. Critical care is on board. * Management as per critical care. Patient started on broad-spectrum antibiotics yesterday and is now on IV vancomycin and meropenem due to development of sepsis criteria. Blood cultures pending. * Patient being diuresed with IV Lasix also. * Breathing treatments bronchodilators. Orogastric tube inserted. * patient is failed spontaneous breathing trial again today. * #Sepsis due to probable staph pneumonia * wbc has rended down to 10. Blood cultures are negative so far. Urine cultures are also negative * wound cultures growing Staph aureus. * Patient currently on IV vancomycin and meropenem. * sputum cultures positive for Staph aureus * He does have a left leg wound and cultures grew 3+ Staphylococcus aureus. * * #Hyperkalemia: Resolved. #Debility due to mechanical fall with resultant T8 fracture * Patient got out of bed and fell and hit his head against the fireplace. He also hit his low back. * CT of the brain showed no acute intracranial pathology. * CT of the brain showed no acute cervical spinal fracture or spondylolisthesis and showed moderate spondylosis. Chest CT showed T8 anterior inferior vertebral body: Extension fracture with 2 mm displacement and no evidence of posterior element fracture or displacement. * PT OT on board. Management will likely be nonoperative. Spine surgeon Dr. Manzanares was consulted from the ED. * Currently on fentanyl drip on account of being intubated. * * #Chronic HFpEF * Does not appear to be in exacerbation. BNP is not elevated. * On IV Lasix 40 mg daily. Monitor intake and output. * Fluid restriction to 1500 cc daily. * 2D echo showed EF of 55% with stge 1 diastolic dysfunction. * Has known EF of 55% from echo done in March 2023. #History of sleep apnea: On BiPAP at home. He does follow with pulmonology and per their note he has not been compliant. The setting of his CPAP was at 11 cm of water. #History of type 2 diabetes mellitus: * Hold metformin. Also on home dose of NPH insulin. * Will hold that. * Insulin sliding scale. * ACT checks every 6 hourly as he is currently NPO. * Currently on tube feeds so will resume NPH insulin #Restless leg syndrome: Pramipexole #History of CAD s/p stents: * He had stents inserted in the LAD in June 2017 and to the mid LAD in March 2019 as well as January 2024 * on aspirin and statin as well as carvedilol and Plavix. #Depression: On buspirone DVT prophylaxis: lovenox Code status: full code * Charges/Coding Visit Charges Inpatient E&M: 78641 Subs Hosp L3
[2024-05-10] MEDS: Insulin Glargine-YFGN 100 UNIT/ML Pen 30 UNIT SC (11:12)
[2024-05-10] MEDS: 0.9% Saline Lock 10 ML Syringe IV ×2 (11:13→12:42)
[2024-05-10] MEDS: Vancomycin HCl 1,250 MG in 0.9% Normal Saline (250mL Bag) 250 ML 167 MG IV ×2 (11:21→23:44)
[2024-05-10 11:35] LABS: Bedside Glucose 379 mg/dL (74-106)
--- NOTE | 2024-05-10 12:13 | PCM.PN.INT ---
Assessment & Plan Assessment/Plan (1) Acute respiratory failure with hypoxia and hypercarbia: PLAN: Plan RECOMMENDATIONS: 1. Continue assist-control mode of mechanical ventilation. Wean FiO2 and PEEP as tolerated. 2. Continue antimicrobial therapy. 3. Continue current sedation regimen, including Seroquel. 4. Continue tube feeding as tolerated. 5. Aggressive bowel regimen. 6. Increase long-acting insulin and continue sliding scale coverage. 7. Diuresis, as tolerated by hemodynamics and renal function. 8. Continue appropriate ICU prophylaxis. IMPRESSIONS: 1. Acute respiratory failure with hypoxemia and hypercapnia The patient has a reported history of asthma and is currently followed on an outpatient basis in the pulmonary medicine clinic. In addition, he has a known history of sleep apnea, noncompliant with PAP therapy. He appears to be experiencing an acute exacerbation of his underlying asthma secondary to staphylococcal pneumonia. Accordingly, the patient will be continued on antimicrobials, bronchodilators and steroids. I agree with continuing gentle diuresis as tolerated by hemodynamics and renal function. The patient will be continued on Precedex and fentanyl for sedation, along with scheduled Seroquel. The patient will be continued on tube feeding along with appropriate ICU prophylaxis, with plans to repeat his spontaneous awakening and breathing trials again tomorrow morning. 2. Recent fall with resultant T8 fracture Physical therapy to continue to work with the patient. 3. History of heart failure with preserved ejection fraction Continue diuresis as tolerated by hemodynamics and renal function. 4. History of sleep apnea with PAP noncompliance/diabetes mellitus/history of coronary artery disease status status post PCI Complicates care, management, recovery and prognosis. Continue supportive measures as noted above. The patient will be continued on long-acting insulin and continued on sliding scale coverage. Upon successful extubation, recommend initiation of PAP therapy with naps and nightly. TIME: 33 minutes of critical care time, independent of procedures, was spent addressing the patient's acute respiratory failure with hypoxemia and hypercapnia, recent fall with T8 fracture, heart failure with preserved ejection fraction obstructive sleep apnea, review of all data and collaboration with the care team. Subjective Subjective The patient was seen and examined at the bedside this morning. Events from the last 24 hours have been reviewed. The patient currently has a low-grade fever but remains otherwise hemodynamically stable on assist-control mode mechanical ventilation with an FiO2 requirement of 40%. The patient failed his spontaneous breathing trial again this morning secondary to hypoxemia. Hemoglobin and platelet count are stable this morning. Creatinine remains within normal limits. Blood sugars continue to remain on the high side. The patient remains on empiric antimicrobials along with scheduled Lasix. Objective Data Objective Data The patient's most recent lab work, culture data and imaging studies have all been personally reviewed. Surface echocardiogram completed on May 07 demonstrated stage I diastolic dysfunction with an ejection fraction of 55%. Sputum culture dated May 06 was positive for Staph aureus. Vital Signs: Vital Signs Temp Pulse Resp BP Pulse Ox O2 Del Method O2 Flow Rate 99.4 F H 72 18 117/58 L 92 Mechanical Ventilator 5 05/10/24 10:00 05/10/24 11:59 05/10/24 11:00 05/10/24 11:00 05/10/24 11:00 05/10/24 11:40 05/06/24 09:30 FiO2 40 05/10/24 11:00 Oxygen Flow Rate (L/min) 5 Oxygen Delivery Method Mechanical Ventilator Weight: 256 lb 9.889 oz Body Mass Index (BMI) 38.9 Intake & Output: Intake and Output for Last 24 Hours 05/08/24 05/09/24 05/10/24 23:59 23:59 23:59 Intake Total 3245.37 / 3390.57 4799.65 / 5118.65 2593.63 / 2593.63 Output Total 2550 / 4050 6075 / 6675 2550 / 2550 Balance 695.37 / -659.43 -1275.35 / -1556.35 43.63 / 43.63 Lab / Micro Data Attestation: I reviewed the patient's lab results. 05/10/24 02:06 05/10/24 02:06 Labs: Laboratory Results - last 24 hr 05/09/24 17:21: POC Glucose 392 H 05/09/24 23:43: POC Glucose 304 H 05/10/24 02:06: WBC 10.7, RBC 4.69, Hgb 11.0 L, Hct 35.3 L, MCV 75.3 L, MCH 23.5 L, MCHC 31.2 L, RDW Std Deviation 44.0 H, RDW Coeff of Jeanette 16.4 H, Plt Count 311, MPV 9.5, Immature Gran % (Auto) 0.700, Neut % (Auto) 76.4 H, Lymph % (Auto) 8.2 L, Hettinger % (Auto) 12.0 H, Eos % (Auto) 2.2, Baso % (Auto) 0.5, Absolute Neuts (auto) 8.2 H, Absolute Lymphs (auto) 0.87, Nucleated RBC % 0, Sodium 133 L, Potassium 3.7, Chloride 96 L, Carbon Dioxide 32.0, Anion Gap 5, BUN 20 H, Creatinine 0.90, Estim Creat Clear Calc 92.22, Est GFR (MDRD) Af Amer 107, Est GFR (MDRD) Non-Af 88, BUN/Creatinine Ratio 22.3 H, Glucose 356 H, Calcium 8.3 L 05/10/24 05:25: POC Glucose 383 H 05/10/24 11:11: POC Glucose 379 H Micro: Microbiology 05/06/24 18:25 Blood Culture (Wb) - Anticubital Left Blood Culture - Preliminary No growth in 48 hours. 05/06/24 18:20 Urine Catheter - Perez Urine Culture - Final Culture exhibits no growth. 05/06/24 12:58 Sputum, Induced/Lukens Gram Stain - Final 05/06/24 12:58 Sputum, Induced/Lukens Respiratory Culture - Final Staphylococcus aureus Physical Exam Const Constitutional Narrative: Intubated, sedated and mechanically ventilated. No ventilator dyssynchrony noted. HEENT normocephalic and head/scalp atraumatic Mouth: endotracheal tube in place and OG tube in place Eyes EOMs intact bilaterally and conjunctivae normal Neck supple General: trachea midline Chest inspection of chest normal Resp Resp Narrative: Coarse mechanical breath sounds. Auscultation: diminished lung sounds Cardio regular rate and regular rhythm GI normal to inspection, nondistended, normoactive bowel sounds Extremity Extremity Narrative: Wrapped lower extremities. General Extremity: Negative for clubbing Skin no rashes or lesions noted Neuro Sensorium / Orientation: sedated on vent Charges/Coding Procedures Hospitalists Procedures: [id number] Critical Care 1st Hr
[2024-05-10 17:17] LABS: Bedside Glucose 370 mg/dL (74-106)
[2024-05-10] MEDS: Pramipexole Di-HCl 1 MG Tablet 2 MG GT (20:32)
[2024-05-10] MEDS: Pravastatin 40 MG Tablet GT (20:32)
[2024-05-10] MEDS: Montelukast 10 MG Tablet GT (20:32)
[2024-05-10] MEDS: fentaNYL drip 100 ML 20 MCG CONT INF (23:45)
[2024-05-10 23:59] LABS: Bedside Glucose 401 mg/dL (74-106)
[2024-05-11] VITALS (34 sets, daily range): BP systolic 104–166; BP diastolic 61–101; PULSE 56–83; RESP 15–36; TEMP 36.8–37.6; O2SAT 89–97; BMI 37.6
[2024-05-11] MEDS: guaiFENesin 10 ML UDC (200MG/10ML) 5 ML GT ×5 (00:29→23:13)
[2024-05-11] MEDS: Dexmedetomidine 1,000 mcg in 0.9% NS 240 mL 44 MCG CONT INF (00:29)
[2024-05-11] MEDS: 0.9% Saline Lock 10 ML Syringe IV (05:08)
[2024-05-11] MEDS: Insulin Lispro 100 UNIT/ML INSULN.PEN SC ×4 (05:09→23:13)
[2024-05-11 05:15] LABS: Absolute Lymphocyte Count 0.83 X10^3/uL (0.83-4.51); Absolute Neutrophil Count 9.4 X10^3/uL (2.0-7.7); Basophil# 0.03 X10^3/uL; Basophil% 0.3 % (0-1); Eosinophil# 0.01 X10^3/uL; Eosinophils% 0.1 % (0-5); Hematocrit 37.5 % (40-54); Hemoglobin 11.4 g/dL (13.0-16.5); Lymphocyte # 0.83 X10^3/ul (0.83-4.51); Lymphocyte % 7.4 % (19-41); Mean Corp Hgb Conc 30.4 g/dL (32-36); Mean Corpuscular Hgb 23.3 pg (27.0-32.0); Mean Corpuscular Volume 76.5 fL (80-94); Mean Platelet Vol. 9.6 fl (6.2-12.0); Monocyte# 0.98 X10^3/uL; Monocyte% 8.7 % (0-10); NRBC Flagged by Analyzer 0 % (0-5); Neutrophil # 9.36 X10^3/uL (2.7-7.7); Neutrophil % 82.8 % (47-70); Platelet Count 326 K/mm3 (150-450); RBC Distribution Width CV 16.1 % (11.6-14.6); RBC Distribution Width SD 44.2 fl (35.1-43.9); White Blood Count 11.3 K/mm3 (4.4-11.0)
[2024-05-11] MEDS: Meropenem 1 GM in 0.9% Normal Saline (100mL MB+) 100 ML IV ×3 (05:18→21:06)
[2024-05-11 05:29] LABS: Anion Gap 7 (5-15); BUN 24 mg/dL (7-18); BUN/Creat Ratio 24.1 RATIO (10-20); Calcium,Total 8.7 mg/dL (8.5-10.1); Chloride 95 mmol/L (98-107); EST Glomerular Filtration Rate 78 mL/min (>60); Est Glom Filt Rate - Afr Amer 95 mL/min (>60); Estimated Creatinine Clearance 81.34 ml/min; Glucose 434 mg/dL (74-106); Potassium 3.8 mmol/L (3.5-5.1); Sodium Level 134 mmol/L (136-145)
[2024-05-11 05:38] LABS: Bedside Glucose 393 mg/dL (74-106)
[2024-05-11] MEDS: fentaNYL drip 100 ML 20 MCG CONT INF ×4 (06:07→21:00)
[2024-05-11] MEDS: Budesonide Respules 0.5 MG/2 ML AMPUL.NEB. INHALATION ×2 (06:40→19:16)
[2024-05-11] MEDS: Albuterol 2.5 MG/3 ML VIAL.NEB. INHALATION ×3 (06:40→19:15)
[2024-05-11] MEDS: Dexmedetomidine 1,000 mcg in 0.9% NS 240 mL 42.3 MCG CONT INF ×3 (06:45→18:42)
[2024-05-11] MEDS: Vitamin B Comp W-C Capsule 1 CAP GT (08:03)
[2024-05-11] MEDS: Carvedilol 25 MG Tablet GT ×2 (08:03→17:08)
--- NOTE | 2024-05-11 09:16 | PN.HOSP_ITS ---
Reason for Visit Reason for Visit: Diagnoses Obstructive sleep apnea (adult) (pediatric) (05/06/24) Acute respiratory failure with hypoxia (05/06/24) Acute respiratory failure with hypercapnia (05/06/24) Dorsalgia, unspecified (05/06/24) Other fracture of T7-T8 thoracic vertebra, initial encounter for closed fracture (05/06/24) Unspecified fracture of T7-T8 vertebra, initial encounter for closed fracture (05/06/24) Unspecified fall, initial encounter (05/06/24) Subjective Subjective Still on the vent. Objective Data Objective Data Vital Signs: Vital Signs Temp Pulse Resp BP Pulse Ox O2 Del Method O2 Flow Rate 36.8 C 72 16 152/80 H 97 Mechanical Ventilator 5 05/11/24 08:00 05/11/24 08:00 05/11/24 08:00 05/11/24 08:00 05/11/24 08:00 05/11/24 08:00 05/06/24 09:30 FiO2 40 05/11/24 08:00 Oxygen Flow Rate (L/min) 5 Oxygen Delivery Method Mechanical Ventilator Weight: 112.7 kg Body Mass Index (BMI) 37.6 Intake & Output: Intake and Output for Last 24 Hours 05/09/24 05/10/24 05/11/24 23:59 23:59 23:59 Intake Total 4799.65 / 5118.65 4325.68 / 4474.68 1243.05 / 1243.05 Output Total 6075 / 6675 7075 / 7075 1130 / 1130 Balance -1275.35 / -1556.35 -2749.32 / -2600.32 113.05 / 113.05 Lab / Micro Data 05/11/24 05:05 05/11/24 05:05 Labs: Laboratory Results - last 24 hr 05/10/24 11:11: POC Glucose 379 H 05/10/24 16:55: POC Glucose 370 H 05/10/24 23:41: POC Glucose 401 H 05/11/24 05:05: WBC 11.3 H, RBC 4.90, Hgb 11.4 L, Hct 37.5 L, MCV 76.5 L, MCH 23.3 L, MCHC 30.4 L, RDW Std Deviation 44.2 H, RDW Coeff of Jeanette 16.1 H, Plt Count 326, MPV 9.6, Immature Gran % (Auto) 0.700, Neut % (Auto) 82.8 H, Lymph % (Auto) 7.4 L, Crane % (Auto) 8.7, Eos % (Auto) 0.1, Baso % (Auto) 0.3, Absolute Neuts (auto) 9.4 H, Absolute Lymphs (auto) 0.83, Nucleated RBC % 0, Sodium 134 L , Potassium 3.8, Chloride 95 L, Carbon Dioxide 32.0, Anion Gap 7, BUN 24 H, Creatinine 1.00, Estim Creat Clear Calc 81.34, Est GFR (MDRD) Af Amer 95, Est GFR (MDRD) Non-Af 78, BUN/Creatinine Ratio 24.1 H, Glucose 434 H, Calcium 8.7 05/11/24 05:07: POC Glucose 393 H Micro: Microbiology 05/06/24 18:25 Blood Culture (Wb) - Anticubital Left Blood Culture - Preliminary No growth in 48 hours. 05/06/24 18:20 Urine Catheter - Perez Urine Culture - Final Culture exhibits no growth. 05/06/24 12:58 Sputum, Induced/Lukens Gram Stain - Final 05/06/24 12:58 Sputum, Induced/Lukens Respiratory Culture - Final Staphylococcus aureus Radiography Diagnostic Testing: Radiology Impression Chest CT 05/06/24 03:50 IMPRESSION: T8 anterior inferior vertebral body corner extension fracture with 2 mm displacement. No evidence of posterior element fracture or displacement Electronically Signed: Arturo Hagen MD at 5:56 EDT Reading Location ID and State: [facility] / [place] Tel , Service support , ADDENDUM: 05/06/24 0607 IMPRESSION: T8 anterior inferior vertebral body corner extension fracture with 2 mm displacement. No evidence of posterior element fracture or displacement N.B. : The above Results were Read Back by Arturo Hagen MD to Ricardo Castro DO, and understanding confirmed on 05/06/2024 06:01:04 (ET). Electronically Signed: Arturo Hagen MD at 5:56 EDT , ADDENDUM: 05/10/242218 IMPRESSION: undefined Physical Exam Const Constitutional Narrative: Awake. On the ventilator. No respiratory distress. Anxious. HEENT head/scalp atraumatic and moist oral mucous membranes Resp Resp Narrative: Coarse breath sounds bilaterally Cardio regular rate, regular rhythm, S1 normal heart sound, S2 normal heart sound and no murmurs GI normal to inspection, nondistended, normoactive bowel sounds, soft to palpation, non-tender and non-distended Neuro Sensorium / Orientation: awake and alert Psych affect normal Assessment & Plan Assessment/Plan (1) Acute respiratory failure with hypoxia and hypercarbia: PLAN: Plan Acute respiratory failure w hypoxia and hypercapnia * 2/2 AE asthma with Staph pneumonia * on vent since the , following * on methylpred, BDs, vanc * On tube feeds AE asthma * methylpred and BDs S. aureus pneumonia * Vancomycin T8 vertebral fracture * Patient noted to have T8 anterior inferior vertebral body corner extension fracture with a 2 mm displacement. No evidence of posterior element fracture or displacement. * Conservative measures. Pain control as able. Chronic conditions * Heart failure preserved ejection fraction * Diabetes mellitus type 2: Uncontrolled. Sliding scale insulin. Glargine 30 daily ordered. Will increase that to twice daily as patient takes NPH of 56 and 44 units at home. VTE prophylaxis with enoxaparin Charges/Coding Visit Charges Inpatient E&M: 15003 Subs Hosp L2
[2024-05-11] MEDS: Pantoprazole Sodium 40 MG in 0.9% Normal Saline (100mL MB+) 100 ML 330 MG IV (09:24)
[2024-05-11] MEDS: Cholecalciferol (VIT D3) 25 MCG TABLET (1,000 UNITS) 50 MCG GT (09:26)
[2024-05-11] MEDS: Magnesium Chloride 64 MG Delay Rel.Tablet 128 MG PO (09:26)
[2024-05-11] MEDS: Enoxaparin 40 MG/0.4 ML Syringe SC (09:26)
[2024-05-11] MEDS: Polyethylene Glycol 3350 17 GM PACKET GT (09:27)
[2024-05-11] MEDS: Senna/Docusate Sodium 1 Tablet 2 TABLET GT ×2 (09:27→21:10)
[2024-05-11] MEDS: Chlorhexidine 15 ML PO ×2 (09:27→19:53)
[2024-05-11] MEDS: QUEtiapine 25 MG Tablet 50 MG PO (09:27)
[2024-05-11] MEDS: CHLORHEXIDINE GLUC 2% CLOTH 1 EACH TOWELETTE TOPICAL (09:28)
[2024-05-11] MEDS: busPIRone 5 MG Tablet 20 MG GT ×2 (09:28→21:09)
[2024-05-11] MEDS: Vancomycin Trough/Random Due 1 LAB MC (09:29)
[2024-05-11] MEDS: Insulin Glargine-YFGN 100 UNIT/ML Pen 30 UNIT SC ×2 (09:29→23:12)
[2024-05-11] MEDS: Furosemide 40 MG/4 ML Vial IV ×2 (09:29→17:09)
--- NOTE | 2024-05-11 10:30 | PN.CC_ITS ---
Assessment & Plan Assessment/Plan (1) Acute respiratory failure with hypoxia and hypercarbia: PLAN: Plan RECOMMENDATIONS: 1. Continue assist-control mode of mechanical ventilation. Wean FiO2 and PEEP as tolerated. 2. Continue antimicrobial therapy. 3. Continue current sedation regimen, including Seroquel. 4. Continue tube feeding as tolerated. 5. Aggressive bowel regimen. 6. Continue long-acting insulin and continue sliding scale coverage. 7. Ongoing diuresis, as tolerated by hemodynamics and renal function. 8. Continue appropriate ICU prophylaxis. 9. Repeat spontaneous awakening and breathing trial again tomorrow morning. IMPRESSIONS: 1. Acute respiratory failure with hypoxemia and hypercapnia The patient has a reported history of asthma and is currently followed on an outpatient basis in the pulmonary medicine clinic. In addition, he has a known history of sleep apnea, noncompliant with PAP therapy. He appears to be experiencing an acute exacerbation of his underlying asthma secondary to staphylococcal pneumonia. Accordingly, the patient will be continued on antimicrobials, bronchodilators and steroids. I agree with continuing gentle diuresis as tolerated by hemodynamics and renal function. The patient will be continued on Precedex and fentanyl for sedation, along with scheduled Seroquel. The patient will be continued on tube feeding along with appropriate ICU prophylaxis, with plans to repeat his spontaneous awakening and breathing trials again tomorrow morning. 2. Recent fall with resultant T8 fracture Physical therapy to continue to work with the patient. 3. History of heart failure with preserved ejection fraction Continue diuresis as tolerated by hemodynamics and renal function. 4. History of sleep apnea with PAP noncompliance/diabetes mellitus/history of coronary artery disease status status post PCI Complicates care, management, recovery and prognosis. Continue supportive measures as noted above. The patient will be continued on long-acting insulin and continued on sliding scale coverage. Upon successful extubation, recommend initiation of PAP therapy with naps and nightly. TIME: 32 minutes of critical care time, independent of procedures, was spent addressing the patient's acute respiratory failure with hypoxemia and hypercapnia, recent fall with T8 fracture, heart failure with preserved ejection fraction obstructive sleep apnea, review of all data and collaboration with the care team. Subjective Subjective The patient was seen and examined at the bedside this morning. Events from the last 24 hours have been reviewed. The patient is currently afebrile, hemodynamically stable and maintaining appropriate oxygen saturations on assist- control mode of mechanical ventilation with an FiO2 requirement of 40%. The patient continues to fail breathing trials secondary to hypoxia and tachycardia. Morning labs remain stable. Objective Data Objective Data The patient's most recent lab work, culture data and imaging studies have all been personally reviewed. Surface echocardiogram completed on May 07 demonstrated stage I diastolic dysfunction with an ejection fraction of 55%. Sputum culture dated May 06 was positive for Staph aureus. Vital Signs: Vital Signs Temp Pulse Resp BP Pulse Ox O2 Del Method O2 Flow Rate 98.3 F 62 16 148/75 H 92 Mechanical Ventilator 5 05/11/24 08:00 05/11/24 10:00 05/11/24 10:00 05/11/24 10:00 05/11/24 10:00 05/11/24 10:00 05/06/24 09:30 FiO2 40 05/11/24 10:00 Oxygen Flow Rate (L/min) 5 Oxygen Delivery Method Mechanical Ventilator Weight: 248 lb 7.375 oz Body Mass Index (BMI) 37.6 Intake & Output: Intake and Output for Last 24 Hours 05/09/24 05/10/24 05/11/24 23:59 23:59 23:59 Intake Total 4799.65 / 5118.65 4325.68 / 4474.68 1539.95 / 1539.95 Output Total 6075 / 6675 7075 / 7075 1480 / 1480 Balance -1275.35 / -1556.35 -2749.32 / -2600.32 59.95 / 59.95 Lab / Micro Data Attestation: I reviewed the patient's lab results. 05/11/24 05:05 05/11/24 05:05 Labs: Laboratory Results - last 24 hr 05/10/24 11:11: POC Glucose 379 H 05/10/24 16:55: POC Glucose 370 H 05/10/24 23:41: POC Glucose 401 H 05/11/24 05:05: WBC 11.3 H, RBC 4.90, Hgb 11.4 L, Hct 37.5 L, MCV 76.5 L, MCH 23.3 L, MCHC 30.4 L, RDW Std Deviation 44.2 H, RDW Coeff of Jeanette 16.1 H, Plt Count 326, MPV 9.6, Immature Gran % (Auto) 0.700, Neut % (Auto) 82.8 H, Lymph % (Auto) 7.4 L, Howard % (Auto) 8.7, Eos % (Auto) 0.1, Baso % (Auto) 0.3, Absolute Neuts (auto) 9.4 H, Absolute Lymphs (auto) 0.83, Nucleated RBC % 0, Sodium 134 L , Potassium 3.8, Chloride 95 L, Carbon Dioxide 32.0, Anion Gap 7, BUN 24 H, Creatinine 1.00, Estim Creat Clear Calc 81.34, Est GFR (MDRD) Af Amer 95, Est GFR (MDRD) Non-Af 78, BUN/Creatinine Ratio 24.1 H, Glucose 434 H, Calcium 8.7 05/11/24 05:07: POC Glucose 393 H Micro: Microbiology 05/06/24 18:25 Blood Culture (Wb) - Anticubital Left Blood Culture - Preliminary No growth in 48 hours. 05/06/24 18:20 Urine Catheter - Perez Urine Culture - Final Culture exhibits no growth. 05/06/24 12:58 Sputum, Induced/Lukens Gram Stain - Final 05/06/24 12:58 Sputum, Induced/Lukens Respiratory Culture - Final Staphylococcus aureus Radiography Diagnostic Testing: Radiology Impression Chest CT 05/06/24 03:50 IMPRESSION: T8 anterior inferior vertebral body corner extension fracture with 2 mm displacement. No evidence of posterior element fracture or displacement Electronically Signed: Arturo Hagen MD at 5:56 EDT Reading Location ID and State: [facility] / [place] Tel , Service support , ADDENDUM: 05/06/24 0607 IMPRESSION: T8 anterior inferior vertebral body corner extension fracture with 2 mm displacement. No evidence of posterior element fracture or displacement N.B. : The above Results were Read Back by Arturo Hagen MD to Ricardo Castro DO, and understanding confirmed on 05/06/2024 06:01:04 (ET). Electronically Signed: Arturo Hagen MD at 5:56 EDT , ADDENDUM: 05/10/24 7050 IMPRESSION: undefined Physical Exam Const Constitutional Narrative: Intubated, sedated and mechanically ventilated. No ventilator dyssynchrony noted. HEENT normocephalic and head/scalp atraumatic Mouth: endotracheal tube in place and OG tube in place Eyes EOMs intact bilaterally and conjunctivae normal Neck supple General: trachea midline Chest inspection of chest normal Resp Resp Narrative: Coarse mechanical breath sounds. Auscultation: diminished lung sounds Cardio regular rate and regular rhythm GI normal to inspection, nondistended, normoactive bowel sounds Extremity Extremity Narrative: Wrapped lower extremities. General Extremity: Negative for clubbing Skin no rashes or lesions noted Neuro Sensorium / Orientation: sedated on vent Charges/Coding Procedures Hospitalists Procedures: [id number] Critical Care 1st Hr
[2024-05-11] MEDS: 0.9% Normal Saline (250mL Bag) 250 ML 15 ML IV (10:36)
[2024-05-11 12:13] LABS: Vancomycin, Trough Level 23.1 ug/mL (5.0-15.0)
[2024-05-11 12:25] LABS: Bedside Glucose 390 mg/dL (74-106)
--- NOTE | 2024-05-11 12:31 | PCM.RX.CS ---
Consult Antibiotic Management Pharmacy has been consulted to manage selected antibiotic: Vancomycin Type of Intervention Type of Consult: Follow-up Labs Labs: Sodium 134 mmol/L (136-145) L 05/11/24 05:05 Potassium 3.8 mmol/L (3.5-5.1) 05/11/24 05:05 Chloride 95 mmol/L (98-107) L 05/11/24 05:05 Carbon Dioxide 32.0 mmol/L (21.0-32.0) 05/11/24 05:05 Anion Gap 7 (5-15) 05/11/24 05:05 BUN 24 mg/dL (7-18) H 05/11/24 05:05 Creatinine 1.00 mg/dL (0.70-1.30) 05/11/24 05:05 Est GFR (MDRD) Af Amer 95 mL/min (>60) 05/11/24 05:05 Est GFR (MDRD) Non-Af 78 mL/min (>60) 05/11/24 05:05 BUN/Creatinine Ratio 24.1 RATIO (10-20) H 05/11/24 05:05 Glucose 434 mg/dL (74-106) H 05/11/24 05:05 Vancomycin Trough 23.1 ug/mL (5.0-15.0) H 05/11/24 11:30 Microbiology Microbiology: Microbiology 05/06/24 18:25 Blood Culture (Wb) - Anticubital Left Blood Culture - Preliminary No growth in 48 hours. 05/06/24 18:20 Urine Catheter - Perez Urine Culture - Final Culture exhibits no growth. 05/06/24 12:58 Sputum, Induced/Lukens Gram Stain - Final 05/06/24 12:58 Sputum, Induced/Lukens Respiratory Culture - Final Staphylococcus aureus Goal Trough Goal Trough: 15-20 mcg/mL Pharmacy Plan for Drug Dosing Pharmacy Plan for Drug Dosing: VANCOMYCIN LEVEL RECEIVED Current Vancomycin Dose: 1250MG IV Q12hr Number of Doses Received: several of current regimen Vancomycin Level: 23.1 Hours Since Last Dose: 11.75hr Renal Function: 1 Renal Function Trend: slight increase, but overall stable Lab/Micro: WCx and SCx growing staph spp Vancomycin Plan/Comments: Patient had at rough drawn which resulted in a value of 23.1 (goal 15-20). The trough was drawn on time, and is supratherapeutic. Will plan on HOLDING further dosing of vancomycin until trough is less than 20. At this time, will discontinue current regimen of 1250mg IV Q12h and schedule a random trough in 12 hours to reassess dosing at that time. Pending Level: *RANDOM* level 05/11/24 @2300 Pharmacy Service will continue to monitor and adjust dosing as required.
[2024-05-11] MEDS: Vital AF 1.2 Cal Liquid 1,000 ML 60 ML GT (13:31)
[2024-05-11 17:39] LABS: Bedside Glucose 405 mg/dL (74-106)
[2024-05-11] MEDS: Pravastatin 40 MG Tablet GT (21:09)
[2024-05-11] MEDS: QUEtiapine 100 MG Tablet GT (21:10)
[2024-05-11] MEDS: Pramipexole Di-HCl 1 MG Tablet 2 MG GT (21:10)
[2024-05-11] MEDS: Montelukast 10 MG Tablet GT (21:10)
[2024-05-11 23:46] LABS: Bedside Glucose 414 mg/dL (74-106)
[2024-05-12] VITALS (34 sets, daily range): BP systolic 82–163; BP diastolic 42–86; PULSE 63–89; RESP 10–40; TEMP 37.2–37.7; O2SAT 90–100; BMI 36.3
[2024-05-12] LABS: Vancomycin, Random Level 14.5 ug/mL (0.0-15.0)
--- NOTE | 2024-05-12 00:14 | PCM.RX.CS ---
Consult Antibiotic Management Pharmacy has been consulted to manage selected antibiotic: Vancomycin Type of Intervention Type of Consult: Follow-up Suspected Infection Suspected Infection: Sepsis and Pneumonia Labs Labs: Sodium 134 mmol/L (136-145) L 05/11/24 05:05 Potassium 3.8 mmol/L (3.5-5.1) 05/11/24 05:05 Chloride 95 mmol/L (98-107) L 05/11/24 05:05 Carbon Dioxide 32.0 mmol/L (21.0-32.0) 05/11/24 05:05 Anion Gap 7 (5-15) 05/11/24 05:05 BUN 24 mg/dL (7-18) H 05/11/24 05:05 Creatinine 1.00 mg/dL (0.70-1.30) 05/11/24 05:05 Est GFR (MDRD) Af Amer 95 mL/min (>60) 05/11/24 05:05 Est GFR (MDRD) Non-Af 78 mL/min (>60) 05/11/24 05:05 BUN/Creatinine Ratio 24.1 RATIO (10-20) H 05/11/24 05:05 Glucose 434 mg/dL (74-106) H 05/11/24 05:05 Vancomycin Trough 23.1 ug/mL (5.0-15.0) H 05/11/24 11:30 Random Vancomycin 14.5 ug/mL (0.0-15.0) 05/11/24 22:30 Microbiology Microbiology: Microbiology 05/06/24 18:25 Blood Culture (Wb) - Anticubital Left Blood Culture - Preliminary No growth in 48 hours. 05/06/24 18:20 Urine Catheter - Perez Urine Culture - Final Culture exhibits no growth. 05/06/24 12:58 Sputum, Induced/Lukens Gram Stain - Final 05/06/24 12:58 Sputum, Induced/Lukens Respiratory Culture - Final Staphylococcus aureus Dosing Weight Weight used for dosin.7 kg Estimated Creatinine Clearance Estimated Creatinine Clearance: 81 Goal Trough Goal Trough: 15-20 mcg/mL Pharmacy Plan for Drug Dosing Pharmacy Plan for Drug Dosing: A vancomycin random level was drawn 05/11/24 @2230. The level was 14.5. Since this has dropped below 20mcg/ml will re-start vanco dosing. Per dosing calculator, a new dose of 1000mg q12h should give an estimated new trough of 19.3. Will start now and draw a trough level prior to 4th dose of the new regimen. Pharmacy Service will continue to monitor and adjust dosing as required. Follow-Up Labs Follow-Up Labs: Trough: Vancomycin Date/Time Labs Ordered Labs to be done on [date and time ordered]: 05/13/24 @1300
[2024-05-12] MEDS: Dexmedetomidine 1,000 mcg in 0.9% NS 240 mL 42.3 MCG CONT INF (01:00)
[2024-05-12] MEDS: Vancomycin IV 1,000 MG/200 ML BAG 200 MG IV ×2 (01:00→14:22)
[2024-05-12] MEDS: 0.9% Saline Lock 10 ML Syringe IV ×2 (01:00→04:05)
[2024-05-12] MEDS: fentaNYL drip 100 ML 20 MCG CONT INF (03:00)
--- NOTE | 2024-05-12 03:20 | NURSING ---
0200- MAR stating fentanyl infused, but volume remains in bag, kept current bag hanging until new bag was needed at 0300.
--- NOTE | 2024-05-12 05:00 | RAD_ITS ---
INDICATION: Respiratory Failure EXAMINATION/TECHNIQUE: X-RAY - XR Chest 1 View COMPARISON: CR ChestAug 2023 7:13am FINDINGS: LINES/DEVICES: Endotracheal tube is seen its tip is 4 cm superior to the galen. An NG tube is seen its tip is below the diaphragm is in good position. LUNGS: There is perihilar vascular congestion. Increased perihilar interstitial markings suggesting mild pulmonary edema. There are small bilateral pleural effusions MEDIASTINUM AND CARDIOVASCULAR STRUCTURES: Cardiac silhouette is moderately enlarged. Central airways and mediastinal contour are unremarkable. BONES AND SOFT TISSUES: Unremarkable. RAD/Chest 1 View (Portable) IMPRESSION: CHF is worse since the previous study. Electronically Signed: Davonte Griggs MD at 4:57 EDT ,
[2024-05-12] MEDS: Meropenem 1 GM in 0.9% Normal Saline (100mL MB+) 100 ML IV ×3 (05:12→21:36)
[2024-05-12] MEDS: guaiFENesin 10 ML UDC (200MG/10ML) 5 ML GT (05:13)
[2024-05-12] MEDS: Insulin Lispro 100 UNIT/ML INSULN.PEN SC ×3 (05:13→16:17)
[2024-05-12] MEDS: CHLORHEXIDINE GLUC 2% CLOTH 1 EACH TOWELETTE TOPICAL (05:14)
[2024-05-12 06:01] LABS: Bedside Glucose 372 mg/dL (74-106)
--- NOTE | 2024-05-12 06:14 | PCM.PN.INT ---
Assessment & Plan Assessment/Plan (1) Acute respiratory failure with hypoxia and hypercarbia: PLAN: Plan RECOMMENDATIONS: 1. Proceed with a trial of extubation this morning. 2. Once extubated, wean supplemental oxygen to maintain saturations at or above 90%. 3. Initiate PAP therapy with naps and nightly. 4. Continue antimicrobials, along with bronchodilators and steroids. 5. Swallow evaluation, prior to advancement of diet. 6. Continue long-acting insulin and continue sliding scale coverage. 7. Decrease Lasix dosing to once daily. 8. Continue appropriate DVT prophylaxis. 9. Encourage incentive spirometer use and mobilize patient as tolerated. IMPRESSIONS: 1. Acute respiratory failure with hypoxemia and hypercapnia The patient has a reported history of asthma and is currently followed on an outpatient basis in the pulmonary medicine clinic. In addition, he has a known history of sleep apnea, noncompliant with PAP therapy. He appears to be experiencing an acute exacerbation of his underlying asthma secondary to staphylococcal pneumonia. Accordingly, the patient will be continued on antimicrobials, bronchodilators and steroids. The patient has improved from a respiratory perspective and passed his breathing trial this morning. Therefore, he was successfully extubated. Given his slight increase in serum bicarbonate, we will decrease his Lasix dosing to once daily. Otherwise, supplemental oxygen will be weaned to maintain saturations at or above 90%. Swallow evaluation will be completed with dietary advancement as tolerated. 2. Recent fall with resultant T8 fracture Physical therapy to continue to work with the patient. 3. History of heart failure with preserved ejection fraction Continue diuresis as tolerated by hemodynamics and renal function. 4. History of sleep apnea with PAP noncompliance/diabetes mellitus/history of coronary artery disease status status post PCI Complicates care, management, recovery and prognosis. Continue supportive measures as noted above. The patient will be continued on long-acting insulin and continued on sliding scale coverage. BiPAP therapy to be initiated with naps and nightly. TIME: 34 minutes of critical care time, independent of procedures, was spent addressing the patient's acute respiratory failure with hypoxemia and hypercapnia, recent fall with T8 fracture, heart failure with preserved ejection fraction obstructive sleep apnea, review of all data and collaboration with the care team. Subjective Subjective The patient was seen and examined at the bedside this morning. Events from the last 24 hours have been reviewed. The patient currently has a low-grade fever but remains otherwise hemodynamically stable on spontaneous mode of mechanical ventilation with an FiO2 requirement of 35%. The patient did relatively well this morning on his spontaneous breathing trial. Therefore, the patient was successfully extubated to nasal cannula supplemental O2. White count is elevated at 13,000. Hemoglobin and platelet count are stable. Bicarbonate has increased to 33. Creatinine is within normal limits. Objective Data Objective Data The patient's most recent lab work, culture data and imaging studies have all been personally reviewed. Surface echocardiogram completed on May 07 demonstrated stage I diastolic dysfunction with an ejection fraction of 55%. Sputum culture dated May 06 was positive for Staph aureus. Vital Signs: Vital Signs Temp Pulse Resp BP Pulse Ox O2 Del Method O2 Flow Rate 99.9 F H 74 14 163/80 H 98 Mechanical Ventilator 5 05/12/24 05:00 05/12/24 05:00 05/12/24 05:00 05/12/24 05:00 05/12/24 05:00 05/12/24 05:00 05/06/24 09:30 FiO2 35 05/12/24 05:00 Oxygen Flow Rate (L/min) 5 Oxygen Delivery Method Mechanical Ventilator Weight: 239 lb 6.752 oz Body Mass Index (BMI) 36.3 Intake & Output: Intake and Output for Last 24 Hours 05/10/24 05/11/24 05/12/24 23:59 23:59 23:59 Intake Total 4325.68 / 4474.68 4013.46 / 4075.76 1670.60 / 1670.60 Output Total 7075 / 7075 7615 / 7615 870 / 870 Balance -2749.32 / -2600.32 -3601.54 / -3539.24 800.60 / 800.60 Lab / Micro Data Attestation: I reviewed the patient's lab results. 05/12/24 04:00 05/12/24 04:00 Labs: Laboratory Results - last 24 hr 05/11/24 11:30: Vancomycin Trough 23.1 H 05/11/24 12:05: POC Glucose 390 H 05/11/24 17:15: POC Glucose 405 H 05/11/24 22:30: Random Vancomycin 14.5 05/11/24 23:07: POC Glucose 414 H 05/12/24 05:10: POC Glucose 372 H Micro: Microbiology 05/06/24 18:25 Blood Culture (Wb) - Anticubital Left Blood Culture - Preliminary No growth in 48 hours. 05/06/24 18:20 Urine Catheter - Perez Urine Culture - Final Culture exhibits no growth. 05/06/24 12:58 Sputum, Induced/Lukens Gram Stain - Final 05/06/24 12:58 Sputum, Induced/Lukens Respiratory Culture - Final Staphylococcus aureus Radiography Diagnostic Testing: Radiology Impression Chest X-Ray 05/12/24 05:00 IMPRESSION: CHF is worse since the previous study. Electronically Signed: Davonte Griggs MD at 4:57 EDT , Physical Exam Const Constitutional Narrative: Intubated and mechanically ventilated. Tolerating spontaneous mode of mechanical ventilation currently. HEENT normocephalic and head/scalp atraumatic Mouth: endotracheal tube in place and OG tube in place Eyes EOMs intact bilaterally and conjunctivae normal Neck supple General: trachea midline Chest inspection of chest normal Resp Resp Narrative: Coarse mechanical breath sounds. Effort and Inspection: tachypneic Auscultation: diminished lung sounds Cardio regular rate and regular rhythm GI normal to inspection, nondistended, normoactive bowel sounds Extremity Extremity Narrative: Wrapped lower extremities. General Extremity: Negative for clubbing Skin no rashes or lesions noted Neuro Neuro Narrative: Alert and able to follow simple commands. Psych Activity / Motor Behavior: restless Charges/Coding Procedures Hospitalists Procedures: 39301 Critical Care 1st Hr
[2024-05-12 06:25] LABS: Absolute Lymphocyte Count 1.17 X10^3/uL (0.83-4.51); Absolute Neutrophil Count 10.4 X10^3/uL (2.0-7.7); Basophil# 0.02 X10^3/uL; Basophil% 0.2 % (0-1); Eosinophil# 0.04 X10^3/uL; Eosinophils% 0.3 % (0-5); Hematocrit 38.2 % (40-54); Hemoglobin 11.8 g/dL (13.0-16.5); Lymphocyte # 1.17 X10^3/ul (0.83-4.51); Mean Corp Hgb Conc 30.9 g/dL (32-36); Mean Corpuscular Hgb 23.4 pg (27.0-32.0); Mean Corpuscular Volume 75.6 fL (80-94); Monocyte# 1.36 X10^3/uL; Monocyte% 10.4 % (0-10); NRBC Flagged by Analyzer 0 % (0-5); Neutrophil # 10.41 X10^3/uL (2.7-7.7); Neutrophil % 79.6 % (47-70); Platelet Count 373 K/mm3 (150-450); RBC Distribution Width CV 16.4 % (11.6-14.6); Red Blood Count 5.05 M/mm3 (4.6-6.2); White Blood Count 13.1 K/mm3 (4.4-11.0)
[2024-05-12 06:42] LABS: ALB/GLOB Ratio 0.5 RATIO (0.9-2.4); AST(SGOT) 29 U/L (15-37); Alanine Aminotransfer ALT/SGPT 39 U/L (16-61); Albumin, Serum 2.3 g/dL (3.2-5.0); Alkaline Phosphatase 81 U/L (45-117); Anion Gap 7 (5-15); BUN 25 mg/dL (7-18); BUN/Creat Ratio 26.3 RATIO (10-20); Calcium,Total 9.2 mg/dL (8.5-10.1); Chloride 95 mmol/L (98-107); Creatinine, Serum 0.95 mg/dL (0.70-1.30); EST Glomerular Filtration Rate 83 mL/min (>60); Est Glom Filt Rate - Afr Amer 100 mL/min (>60); Estimated Creatinine Clearance 83.99 ml/min; Globulin 4.8 g/dL (2.2-4.2); Glucose 376 mg/dL (74-106); Potassium 3.7 mmol/L (3.5-5.1); Protein, Total 7.1 g/dL (6.4-8.2); Sodium Level 135 mmol/L (136-145)
--- NOTE | 2024-05-12 07:08 | NURSING ---
0655- pt extubated @ 0655 to 4L NC
[2024-05-12] MEDS: Albuterol 2.5 MG/3 ML VIAL.NEB. INHALATION ×3 (07:14→19:32)
[2024-05-12] MEDS: Budesonide Respules 0.5 MG/2 ML AMPUL.NEB. INHALATION ×2 (07:14→19:32)
[2024-05-12] MEDS: Pantoprazole Sodium 40 MG in 0.9% Normal Saline (100mL MB+) 100 ML 330 MG IV (08:03)
[2024-05-12] MEDS: Furosemide 40 MG/4 ML Vial IV (08:06)
[2024-05-12] MEDS: Chlorhexidine 15 ML PO (08:06)
--- NOTE | 2024-05-12 08:17 | PN.HOSP_ITS ---
Reason for Visit Reason for Visit: Diagnoses Obstructive sleep apnea (adult) (pediatric) (05/06/24) Acute respiratory failure with hypoxia (05/06/24) Acute respiratory failure with hypercapnia (05/06/24) Dorsalgia, unspecified (05/06/24) Other fracture of T7-T8 thoracic vertebra, initial encounter for closed fracture (05/06/24) Unspecified fracture of T7-T8 vertebra, initial encounter for closed fracture (05/06/24) Unspecified fall, initial encounter (05/06/24) Subjective Subjective Extubated today. Worked with therapy and felt dizzy. When he got back to bed was hypotensive. Patient was dizzy and having diplopia but since he has been in the chair, the dizziness and diplopia have resolved. Objective Data Objective Data Vital Signs: Vital Signs Temp Pulse Resp BP Pulse Ox O2 Del Method O2 Flow Rate 37.6 C H 80 17 106/64 94 Nasal Cannula 4 05/12/24 07:00 05/12/24 07:00 05/12/24 07:00 05/12/24 07:00 05/12/24 07:00 05/12/24 07:00 05/12/24 07:00 FiO2 35 05/12/24 06:00 Oxygen Flow Rate (L/min) 4 Oxygen Delivery Method Nasal Cannula Weight: 108.6 kg Body Mass Index (BMI) 36.3 Intake & Output: Intake and Output for Last 24 Hours 05/10/24 05/11/24 05/12/24 23:59 23:59 23:59 Intake Total 4325.68 / 4474.68 4013.46 / 4075.76 1670.60 / 1670.60 Output Total 7075 / 7075 7615 / 7615 870 / 870 Balance -2749.32 / -2600.32 -3601.54 / -3539.24 800.60 / 800.60 Lab / Micro Data 05/12/24 04:00 05/12/24 04:00 Labs: Laboratory Results - last 24 hr 05/11/24 11:30: Vancomycin Trough 23.1 H 05/11/24 12:05: POC Glucose 390 H 05/11/24 17:15: POC Glucose 405 H 05/11/24 22:30: Random Vancomycin 14.5 05/11/24 23:07: POC Glucose 414 H 05/12/24 04:00: WBC 13.1 H, RBC 5.05, Hgb 11.8 L, Hct 38.2 L, MCV 75.6 L, MCH 23.4 L, MCHC 30.9 L, RDW Std Deviation 44.0 H, RDW Coeff of Jeanette 16.4 H, Plt Count 373, MPV 11.0, Immature Gran % (Auto) 0.500, Neut % (Auto) 79.6 H, Lymph % (Auto) 9.0 L, Norman % (Auto) 10.4 H, Eos % (Auto) 0.3, Baso % (Auto) 0.2, A bsolute Neuts (auto) 10.4 H, Absolute Lymphs (auto) 1.17, Nucleated RBC % 0, S odium 135 L, Potassium 3.7, Chloride 95 L, Carbon Dioxide 33.0 H, Anion Gap 7, B UN 25 H, Creatinine 0.95, Estim Creat Clear Calc 83.99, Est GFR (MDRD) Af Amer 100, Est GFR (MDRD) Non-Af 83, BUN/Creatinine Ratio 26.3 H, Glucose 376 H, Calcium 9.2, Total Bilirubin 0.80, AST 29, ALT 39, Alkaline Phosphatase 81, Total Protein 7.1, Albumin 2.3 L, Globulin 4.8 H, Albumin/Globulin Ratio 0.5 L 05/12/24 05:10: POC Glucose 372 H Micro: Microbiology 05/06/24 18:25 Blood Culture (Wb) - Anticubital Left Blood Culture - Final No growth in 5 days. 05/06/24 18:20 Urine Catheter - Perez Urine Culture - Final Culture exhibits no growth. 05/06/24 12:58 Sputum, Induced/Lukens Gram Stain - Final 05/06/24 12:58 Sputum, Induced/Lukens Respiratory Culture - Final Staphylococcus aureus Radiography Diagnostic Testing: Radiology Impression Chest X-Ray 05/12/24 05:00 IMPRESSION: CHF is worse since the previous study. Electronically Signed: Davonte Griggs MD at 4:57 EDT , Physical Exam Const Constitutional Narrative: Awake. Up in chair. Nontoxic. HEENT head/scalp atraumatic and moist oral mucous membranes Resp normal respiratory effort Resp Narrative: Coarse breath sounds bilaterally Cardio regular rate, regular rhythm, S1 normal heart sound and S2 normal heart sound GI normal to inspection, nondistended, normoactive bowel sounds, soft to palpation, non-tender and non-distended Extremity normal to inspection Neuro oriented x3, CN's II-XII intact bilaterally, moves all extremities, no focal motor deficits and no sensory deficits noted Sensorium / Orientation: awake and alert Speech: speech normal Motor Exam: strength 5/5 throughout Assessment & Plan Assessment/Plan (1) Acute respiratory failure with hypoxia and hypercarbia: PLAN: Plan Acute respiratory failure w hypoxia and hypercapnia * 2/2 AE asthma with Staph pneumonia * on vent since the , CCM following. Extubated 05/12 * on methylpred, BDs, vanc AE asthma * methylpred and BDs S. aureus pneumonia * Vancomycin T8 vertebral fracture * Patient noted to have T8 anterior inferior vertebral body corner extension fracture with a 2 mm displacement. No evidence of posterior element fracture or displacement. * Conservative measures. Pain control as able. Hypotension * Unclear etiology but may have been related with all his medications that he was given this morning. Patient ordered 1 L of bolus of normal saline. Expectant management at this time. Chronic conditions * Heart failure preserved ejection fraction * Diabetes mellitus type 2: Uncontrolled. Sliding scale insulin. Glargine 30 daily ordered. Will increase that to twice daily as patient takes NPH of 56 and 44 units at home. Still uncontrolled but now extubated and off tube feeds will monitor expectantly for now, though may need to increase dosing based on glucose. VTE prophylaxis with enoxaparin Charges/Coding Visit Charges Inpatient E&M: 73150 Subs Hosp L3
[2024-05-12] MEDS: Enoxaparin 40 MG/0.4 ML Syringe SC (11:29)
[2024-05-12] MEDS: Insulin Glargine-YFGN 100 UNIT/ML Pen 30 UNIT SC ×2 (11:29→21:25)
[2024-05-12] MEDS: Magnesium Chloride 64 MG Delay Rel.Tablet 128 MG PO (11:34)
[2024-05-12] MEDS: busPIRone 5 MG Tablet 20 MG GT ×2 (11:34→21:29)
[2024-05-12] MEDS: Isosorbide Mononitrate 30 MG Tablet PO (11:34)
[2024-05-12] MEDS: Vitamin B Comp W-C Capsule 1 CAP GT (11:35)
[2024-05-12] MEDS: Carvedilol 25 MG Tablet GT ×2 (11:35→16:18)
[2024-05-12] MEDS: Cholecalciferol (VIT D3) 25 MCG TABLET (1,000 UNITS) 50 MCG GT (11:36)
[2024-05-12 12:08] LABS: Bedside Glucose 267 mg/dL (74-106)
[2024-05-12] MEDS: 0.9% Normal Saline (1000mL) 1,000 ML 999 ML IV (13:00)
[2024-05-12 13:02] LABS: Bedside Glucose 244 mg/dL (74-106)
--- NOTE | 2024-05-12 13:55 | NURSING ---
dr aguirre here informed pt complaining of dizziness bp 62/48 ordered 1l ns bolus
[2024-05-12 16:48] LABS: Bedside Glucose 273 mg/dL (74-106)
[2024-05-12] MEDS: Pravastatin 40 MG Tablet GT (21:30)
[2024-05-12] MEDS: Pramipexole Di-HCl 1 MG Tablet 2 MG GT (21:30)
[2024-05-12] MEDS: Montelukast 10 MG Tablet GT (21:30)
[2024-05-12 21:37] LABS: Bedside Glucose 253 mg/dL (74-106)
[2024-05-13] VITALS (25 sets, daily range): BP systolic 110–149; BP diastolic 56–89; PULSE 77–107; RESP 10–36; TEMP 37.1–37.7; O2SAT 88–100; BMI 36.5
[2024-05-13] MEDS: Insulin Lispro 100 UNIT/ML INSULN.PEN SC ×4 (00:53→21:09)
[2024-05-13 01:13] LABS: Bedside Glucose 201 mg/dL (74-106)
[2024-05-13] MEDS: Vancomycin IV 1,000 MG/200 ML BAG 200 MG IV ×2 (01:27→14:27)
[2024-05-13] MEDS: Meropenem 1 GM in 0.9% Normal Saline (100mL MB+) 100 ML IV ×2 (04:56→15:44)
[2024-05-13 05:19] LABS: Bedside Glucose 165 mg/dL (74-106)
[2024-05-13] MEDS: Albuterol 2.5 MG/3 ML VIAL.NEB. INHALATION ×3 (06:49→19:16)
[2024-05-13] MEDS: Budesonide Respules 0.5 MG/2 ML AMPUL.NEB. INHALATION ×2 (06:49→19:16)
[2024-05-13] MEDS: Ondansetron 4 MG/2 ML Vial IV ×2 (06:58→20:45)
[2024-05-13 07:20] LABS: Bedside Glucose 111 mg/dL (74-106)
--- NOTE | 2024-05-13 08:34 | PN.HOSP_ITS ---
Reason for Visit Reason for Visit: Diagnoses Obstructive sleep apnea (adult) (pediatric) (05/06/24) Acute respiratory failure with hypoxia (05/06/24) Acute respiratory failure with hypercapnia (05/06/24) Dorsalgia, unspecified (05/06/24) Other fracture of T7-T8 thoracic vertebra, initial encounter for closed fracture (05/06/24) Unspecified fracture of T7-T8 vertebra, initial encounter for closed fracture (05/06/24) Unspecified fall, initial encounter (05/06/24) Subjective Subjective Breathing well. Had some nausea and vomiting. Objective Data Objective Data Vital Signs: Vital Signs Temp Pulse Resp BP Pulse Ox O2 Del Method O2 Flow Rate 37.4 C H 107 H 27 H 149/89 H 95 Nasal Cannula 4 05/13/24 03:00 05/13/24 07:00 05/13/24 07:00 05/13/24 07:00 05/13/24 07:00 05/13/24 07:00 05/13/24 07:00 FiO2 30 05/13/24 04:15 Oxygen Flow Rate (L/min) 4 Oxygen Delivery Method Nasal Cannula Weight: 108.9 kg Body Mass Index (BMI) 36.5 Intake & Output: Intake and Output for Last 24 Hours 05/11/24 05/12/24 05/13/24 23:59 23:59 23:59 Intake Total 4013.46 / 4075.76 4735.60 / 4735.60 320 / 320 Output Total 7615 / 7615 3070 / 3320 250 / 250 Balance -3601.54 / -3539.24 1665.60 / 1415.60 70 / 70 Lab / Micro Data 05/12/24 04:00 05/12/24 04:00 Labs: Laboratory Results - last 24 hr 05/12/24 11:23: POC Glucose 267 H 05/12/24 12:44: POC Glucose 244 H 05/12/24 16:14: POC Glucose 273 H 05/12/24 21:18: POC Glucose 253 H 05/13/24 00:52: POC Glucose 201 H 05/13/24 04:55: POC Glucose 165 H 05/13/24 07:01: POC Glucose 111 H Micro: Microbiology 05/06/24 18:25 Blood Culture (Wb) - Anticubital Left Blood Culture - Final No growth in 5 days. 05/06/24 18:20 Urine Catheter - Perez Urine Culture - Final Culture exhibits no growth. 05/06/24 12:58 Sputum, Induced/Lukens Gram Stain - Final 05/06/24 12:58 Sputum, Induced/Lukens Respiratory Culture - Final Staphylococcus aureus Physical Exam Const alert and no apparent distress HEENT head/scalp atraumatic and moist oral mucous membranes Resp Resp Narrative: coarse breath sounds bilaterally. Cardio regular rate, regular rhythm, S1 normal heart sound and S2 normal heart sound Neuro Sensorium / Orientation: awake and alert Assessment & Plan Assessment/Plan (1) Acute respiratory failure with hypoxia and hypercarbia: PLAN: Plan Acute respiratory failure w hypoxia and hypercapnia * 2/2 AE asthma with Staph pneumonia * on vent since the , CCM following. Extubated 05/12 * on methylpred, BDs, vanc AE asthma * methylpred and BDs S. aureus pneumonia * MSSA, but resistant to tetracycline, TMP/SMX. * Vancomycin for 7-day course T8 vertebral fracture * Patient noted to have T8 anterior inferior vertebral body corner extension fracture with a 2 mm displacement. No evidence of posterior element fracture or displacement. * Conservative measures. Pain control as able. Hypotension * Resolved * Unclear etiology but may have been related with all his medications that he was given this morning. Patient ordered 1 L of bolus of normal saline. Expectant management at this time. Chronic conditions * Heart failure preserved ejection fraction: Compensated * Diabetes mellitus type 2: Uncontrolled. Sliding scale insulin. Glargine 30 daily twice daily. Takes NPH of 56 and 44 units at home. VTE prophylaxis with enoxaparin Transfer to med surg Charges/Coding Visit Charges Inpatient E&M: 06246 Subs Hosp L2
--- NOTE | 2024-05-13 09:19 | PN.CC_ITS ---
Assessment & Plan Assessment/Plan (1) Acute respiratory failure with hypoxia and hypercarbia: PLAN: Plan RECOMMENDATIONS: 1. Supplemental oxygen to maintain saturations at or above 90%. 2. PAP therapy with naps and nightly. 3. Continue antimicrobials, along with bronchodilators and steroids. 4. Continue long-acting insulin and continue sliding scale coverage. 5. Continue diuresis as tolerated by hemodynamics and renal function. 6. Continue appropriate DVT prophylaxis. 7. Encourage incentive spirometer use and mobilize patient as tolerated. 8. The patient is medically stable for transfer out of the intensive care unit. IMPRESSIONS: 1. Acute respiratory failure with hypoxemia and hypercapnia The patient has a reported history of asthma and is currently followed on an outpatient basis in the pulmonary medicine clinic. In addition, he has a known history of sleep apnea, noncompliant with PAP therapy. He appears to be experiencing an acute exacerbation of his underlying asthma secondary to staphylococcal pneumonia. Accordingly, the patient will be continued on antimicrobials, bronchodilators and steroids. The patient has improved from a respiratory perspective and was able to be extubated on May 13. Supplemental oxygen will be continued to maintain saturations at or above 90%. Gentle diuresis will also be continued, pending stability in hemodynamics and renal function. 2. Recent fall with resultant T8 fracture Physical therapy to continue to work with the patient. 3. History of heart failure with preserved ejection fraction Continue diuresis as tolerated by hemodynamics and renal function. 4. History of sleep apnea with PAP noncompliance/diabetes mellitus/history of coronary artery disease status status post PCI Complicates care, management, recovery and prognosis. Continue supportive measures as noted above. The patient will be continued on long-acting insulin and continued on sliding scale coverage. BiPAP therapy to be continued with naps and nightly. This note was generated with [employer] dictation software. It may contain incorrect words, spelling, and punctuation that were not noted in checking the note before signing. Subjective Subjective The patient was seen and examined at the bedside this morning. Events from the last 24 hours have been reviewed. The patient is currently afebrile, hemodynamically stable and maintaining appropriate oxygen saturations on 4 L/min via nasal cannula. No overnight events are noted by the nursing staff. The patient remains on antimicrobials, bronchodilators and steroids. Objective Data Objective Data The patient's most recent lab work, culture data and imaging studies have all been personally reviewed. Surface echocardiogram completed on May 07 demonstrated stage I diastolic dysfunction with an ejection fraction of 55%. Sputum culture dated May 06 was positive for Staph aureus. Vital Signs: Vital Signs Temp Pulse Resp BP Pulse Ox O2 Del Method O2 Flow Rate 99.3 F H 107 H 27 H 149/89 H 95 Nasal Cannula 4 05/13/24 03:00 05/13/24 07:00 05/13/24 07:00 05/13/24 07:00 05/13/24 07:00 05/13/24 07:00 05/13/24 07:00 FiO2 30 05/13/24 04:15 Oxygen Flow Rate (L/min) 4 Oxygen Delivery Method Nasal Cannula Weight: 240 lb 1.334 oz Body Mass Index (BMI) 36.5 Intake & Output: Intake and Output for Last 24 Hours 05/11/24 05/12/24 05/13/24 23:59 23:59 23:59 Intake Total 4013.46 / 4075.76 4735.60 / 4735.60 320 / 320 Output Total 7615 / 7615 3070 / 3320 250 / 250 Balance -3601.54 / -3539.24 1665.60 / 1415.60 70 / 70 Lab / Micro Data Attestation: I reviewed the patient's lab results. 05/12/24 04:00 05/12/24 04:00 Labs: Laboratory Results - last 24 hr 05/12/24 11:23: POC Glucose 267 H 05/12/24 12:44: POC Glucose 244 H 05/12/24 16:14: POC Glucose 273 H 05/12/24 21:18: POC Glucose 253 H 05/13/24 00:52: POC Glucose 201 H 05/13/24 04:55: POC Glucose 165 H 05/13/24 07:01: POC Glucose 111 H Micro: Microbiology 05/06/24 18:25 Blood Culture (Wb) - Anticubital Left Blood Culture - Final No growth in 5 days. 05/06/24 18:20 Urine Catheter - Perez Urine Culture - Final Culture exhibits no growth. 05/06/24 12:58 Sputum, Induced/Lukens Gram Stain - Final 05/06/24 12:58 Sputum, Induced/Lukens Respiratory Culture - Final Staphylococcus aureus Radiography Diagnostic Testing: Radiology Impression Chest X-Ray 05/12/24 05:00 IMPRESSION: CHF is worse since the previous study. Electronically Signed: Davonte Griggs MD at 4:57 EDT , Physical Exam Const alert and no apparent distress General Appearance: cooperative HEENT normocephalic, head/scalp atraumatic and moist oral mucous membranes Eyes PERRL, EOMs intact bilaterally and conjunctivae normal Neck supple General: trachea midline Chest inspection of chest normal Resp normal respiratory effort Auscultation: diminished lung sounds; Negative for rales, rhonchi or wheezes Cardio regular rate and regular rhythm GI normal to inspection, nondistended, normoactive bowel sounds Extremity Extremity Narrative: Wrapped lower extremities. General Extremity: Negative for clubbing Skin no rashes or lesions noted Neuro CN's II-XII intact bilaterally, moves all extremities and no focal motor deficits Psych cooperative and affect normal Charges/Coding Visit Charges Inpatient E&M: 49016 Subs Hosp L3
[2024-05-13] MEDS: Furosemide 40 MG/4 ML Vial IV (09:33)
--- NOTE | 2024-05-13 09:43 | CASEMGMT ---
Discharge Planning A list of SNF providers including quality and resource use data and consistent with the patient's preferred geographic region, medical needs, and insurance network was created in [facility] Guide.? This list was provided to the SW. Lynne Watts Discharge Planning Asst.
[2024-05-13] MEDS: Enoxaparin 40 MG/0.4 ML Syringe SC (09:55)
[2024-05-13] MEDS: Insulin Glargine-YFGN 100 UNIT/ML Pen 30 UNIT SC ×2 (09:56→21:09)
[2024-05-13] MEDS: Isosorbide Mononitrate 30 MG Tablet PO (09:59)
[2024-05-13] MEDS: Magnesium Chloride 64 MG Delay Rel.Tablet 128 MG PO (09:59)
[2024-05-13] MEDS: busPIRone 5 MG Tablet 20 MG PO ×2 (10:00→20:57)
[2024-05-13] MEDS: Cholecalciferol (VIT D3) 25 MCG TABLET (1,000 UNITS) 50 MCG PO (10:02)
--- NOTE | 2024-05-13 12:06 | CASEMGMT ---
Social Work- SW met with pt to introduce self and role, as well as discharge planning discussions. Pt has some remaining confusion, often repeating self and disconnected thought patterns. Pt fumbled with pulse ox cord, placing it behind his ear throughout the entire visit. SW attempted to explain that it was not his nasal cannula tubing, but rather his pulse ox cord, however, pt incoherently spoke about we'll see and get it all taken care of each time SW offered redirection. Pt reports that his of 53 years, Kristin, in June of 2023 after a prolonged illness. Two weeks later, pt daughter, Fariba who is his HCPOA, had two aneurysms and amin and has been in [place] since that time. Pt reports that she is unable to do anything. Pt reports that he has a son, Jacob, but there are complicated dynamics and some estrangement in that relationship. Pt has 6 grandchildren including Jennifer that lives with him and assists with providing care. Jennifer has a 1.5 and 2.5 year old that she parents alone. Pt is open to a SNF, but reports that he previously was at [facility] and would not want to return. Pt was concerned about having HHC and PT at d/c from SNF as well, reporting that he needed extra help at home prior to admittance and had to private pay. SW provided education on the scope of HHC vs needs for LTC. Pt was agreeable to SW calling granddaughter, Jennifer. SW called Jennifer and spoke with her regarding d/c preference. Jennifer requested list be emailed; REGAN emailed immediately for review. A list of SNF providers including quality and resource use data and consistent with the patient?s preferred geographic region, medical needs, and insurance network were provided from the [facility] Guide to pt. JEAN PIERRE James
[2024-05-13 12:09] LABS: Bedside Glucose 117 mg/dL (74-106)
[2024-05-13 14:12] LABS: Vancomycin, Trough Level 19.1 ug/mL (5.0-15.0)
--- NOTE | 2024-05-13 14:25 | PCM.RX.CS ---
Consult Antibiotic Management Pharmacy has been consulted to manage selected antibiotic: Vancomycin Type of Intervention Type of Consult: Follow-up Prior Doses of Antibiotics Prior Doses of Antibiotics Received/Current Regimen: current dose is 1000mg IV q12h Labs Labs: Sodium 135 mmol/L (136-145) L 05/12/24 04:00 Potassium 3.7 mmol/L (3.5-5.1) 05/12/24 04:00 Chloride 95 mmol/L (98-107) L 05/12/24 04:00 Carbon Dioxide 33.0 mmol/L (21.0-32.0) H 05/12/24 04:00 Anion Gap 7 (5-15) 05/12/24 04:00 BUN 25 mg/dL (7-18) H 05/12/24 04:00 Creatinine 0.95 mg/dL (0.70-1.30) 05/12/24 04:00 Est GFR (MDRD) Af Amer 100 mL/min (>60) 05/12/24 04:00 Est GFR (MDRD) Non-Af 83 mL/min (>60) 05/12/24 04:00 BUN/Creatinine Ratio 26.3 RATIO (10-20) H 05/12/24 04:00 Glucose 376 mg/dL (74-106) H 05/12/24 04:00 Vancomycin Trough 19.1 ug/mL (5.0-15.0) H 05/13/24 13:00 Random Vancomycin 14.5 ug/mL (0.0-15.0) 05/11/24 22:30 Microbiology Microbiology: Microbiology 05/06/24 18:25 Blood Culture (Wb) - Anticubital Left Blood Culture - Final No growth in 5 days. 05/06/24 18:20 Urine Catheter - Perez Urine Culture - Final Culture exhibits no growth. 05/06/24 12:58 Sputum, Induced/Lukens Gram Stain - Final 05/06/24 12:58 Sputum, Induced/Lukens Respiratory Culture - Final Staphylococcus aureus Dosing Weight Weight used for dosin.9 kg Estimated Creatinine Clearance Estimated Creatinine Clearance: 84ml/min Goal Trough Goal Trough: 15-20 mcg/mL Pharmacy Plan for Drug Dosing Pharmacy Plan for Drug Dosing: The vanc trough drawn at 13:00 today (approx 11.5 hours after the previous dose) was 19.1. This is within goal so will keep same dose but the last dose will be now as the stop date for vancomycin therapy is today. Will not order another trough since vanc is to be stopped after today's doses. Pharmacy Service will continue to monitor and adjust dosing as required.
[2024-05-13] MEDS: Vancomycin Trough/Random Due 1 LAB MC (14:28)
[2024-05-13] MEDS: Carvedilol 25 MG Tablet PO (16:33)
--- NOTE | 2024-05-13 16:48 | NURSING ---
report called to med-surg for transfer to room 305, transferred per bed with belongings
[2024-05-13 16:53] LABS: Bedside Glucose 181 mg/dL (74-106)
[2024-05-13] MEDS: 0.9% Saline Lock 10 ML Syringe IV (20:45)
[2024-05-13] MEDS: Montelukast 10 MG Tablet PO (20:58)
[2024-05-13] MEDS: Pramipexole Di-HCl 1 MG Tablet 2 MG PO (20:58)
[2024-05-13] MEDS: Pravastatin 40 MG Tablet PO (20:59)
[2024-05-13] MEDS: Fluticasone 0.05% 1 SPRAY NASAL.SRY NASAL (21:10)
[2024-05-13 22:59] LABS: Bedside Glucose 262 mg/dL (74-106)
[2024-05-14] VITALS (16 sets, daily range): BP systolic 90–134; BP diastolic 47–72; PULSE 80–100; RESP 12–22; TEMP 36.8–37.4; O2SAT 78–97; BMI 36.5
[2024-05-14] MEDS: Scopolamine 1mg/72hr Patch 1 PATCH TD (00:10)
[2024-05-14] MEDS: Menthol/Lanolin/Calamine/Znox 113 GM Tube 1 APPLIC TOPICAL ×3 (00:11→20:54)
[2024-05-14] MEDS: guaiFENesin 600 MG Tablet PO ×3 (00:11→22:07)
[2024-05-14 04:51] LABS: Anion Gap 3 (5-15); BUN 21 mg/dL (7-18); BUN/Creat Ratio 23.1 RATIO (10-20); Calcium,Total 8.1 mg/dL (8.5-10.1); Chloride 104 mmol/L (98-107); Creatinine, Serum 0.91 mg/dL (0.70-1.30); EST Glomerular Filtration Rate 87 mL/min (>60); Est Glom Filt Rate - Afr Amer 105 mL/min (>60); Glucose 123 mg/dL (74-106); Potassium 3.4 mmol/L (3.5-5.1); Sodium Level 140 mmol/L (136-145)
[2024-05-14] MEDS: proMETHazine 25 MG/ML Syringe IM (04:51)
[2024-05-14 05:21] LABS: Absolute Lymphocyte Count 1.42 X10^3/uL (0.83-4.51); Absolute Neutrophil Count 8.1 X10^3/uL (2.0-7.7); Basophil# 0.06 X10^3/uL; Basophil% 0.5 % (0-1); Eosinophil# 0.09 X10^3/uL; Eosinophils% 0.8 % (0-5); Hemoglobin 12.3 g/dL (13.0-16.5); Lymphocyte # 1.42 X10^3/ul (0.83-4.51); Lymphocyte % 12.8 % (19-41); Mean Corp Hgb Conc 29.3 g/dL (32-36); Mean Corpuscular Hgb 23.7 pg (27.0-32.0); Mean Corpuscular Volume 80.8 fL (80-94); Mean Platelet Vol. 9.6 fl (6.2-12.0); Monocyte# 1.37 X10^3/uL; Monocyte% 12.4 % (0-10); NRBC Flagged by Analyzer 0 % (0-5); Neutrophil # 8.05 X10^3/uL (2.7-7.7); Neutrophil % 72.9 % (47-70); Platelet Count 396 K/mm3 (150-450); RBC Distribution Width CV 17.1 % (11.6-14.6); RBC Distribution Width SD 49.3 fl (35.1-43.9); White Blood Count 11.1 K/mm3 (4.4-11.0)
[2024-05-14] MEDS: Insulin Lispro 100 UNIT/ML INSULN.PEN SC ×4 (05:56→22:12)
[2024-05-14 06:20] LABS: Bedside Glucose 183 mg/dL (74-106)
[2024-05-14] MEDS: Albuterol 2.5 MG/3 ML VIAL.NEB. INHALATION ×3 (07:00→20:27)
[2024-05-14] MEDS: Budesonide Respules 0.5 MG/2 ML AMPUL.NEB. INHALATION ×2 (07:00→20:27)
[2024-05-14] MEDS: busPIRone 5 MG Tablet 20 MG PO ×2 (08:07→22:04)
[2024-05-14] MEDS: Magnesium Chloride 64 MG Delay Rel.Tablet 128 MG PO (08:08)
[2024-05-14] MEDS: Aspirin E.C. 81 MG Tablet PO (08:08)
[2024-05-14] MEDS: Cholecalciferol (VIT D3) 25 MCG TABLET (1,000 UNITS) 50 MCG PO (08:09)
[2024-05-14] MEDS: Vitamin B Comp W-C Capsule 1 CAP PO (08:10)
--- NOTE | 2024-05-14 09:22 | PN.HOSP_ITS ---
Reason for Visit Reason for Visit: Diagnoses Obstructive sleep apnea (adult) (pediatric) (05/06/24) Acute respiratory failure with hypoxia (05/06/24) Acute respiratory failure with hypercapnia (05/06/24) Dorsalgia, unspecified (05/06/24) Other fracture of T7-T8 thoracic vertebra, initial encounter for closed fracture (05/06/24) Unspecified fracture of T7-T8 vertebra, initial encounter for closed fracture (05/06/24) Unspecified fall, initial encounter (05/06/24) Subjective Subjective Vomited after taking his AM pills. Objective Data Objective Data Vital Signs: Vital Signs Temp Pulse Resp BP Pulse Ox O2 Del Method O2 Flow Rate 37.0 C 100 18 134/72 H 93 Nasal Cannula 4 05/14/24 03:32 05/14/24 07:57 05/14/24 07:02 05/14/24 03:32 05/14/24 07:57 05/14/24 07:57 05/14/24 07:57 FiO2 30 05/14/24 01:40 Oxygen Flow Rate (L/min) 4 Oxygen Delivery Method Nasal Cannula Weight: 108.9 kg Body Mass Index (BMI) 36.5 Intake & Output: Intake and Output for Last 24 Hours 05/12/24 05/13/24 05/14/24 23:59 23:59 23:59 Intake Total 4735.60 / 4735.60 1260 / 1260 Output Total 3070 / 3320 3300 / 3300 1450 / 1450 Balance 1665.60 / 1415.60 -2040 / -2040 -1450 / -1450 Lab / Micro Data 05/14/24 05:11 05/14/24 04:00 Labs: Laboratory Results - last 24 hr 05/13/24 11:45: POC Glucose 117 H 05/13/24 13:00: Vancomycin Trough 19.1 H 05/13/24 16:27: POC Glucose 181 H 05/13/24 21:08: POC Glucose 262 H 05/14/24 04:00: WBC Cancelled, Corrected WBC Cancelled, RBC Cancelled, Hgb Cancelled, Hct Cancelled, MCV Cancelled, MCH Cancelled, MCHC Cancelled, RDW Std Deviation Cancelled, RDW Coeff of Jeanette Cancelled, Plt Count Cancelled, MPV Cancelled, Immature Gran % (Auto) Cancelled, Neut % (Auto) Cancelled, Lymph % (Auto) Cancelled, Elk % (Auto) Cancelled, Eos % (Auto) Cancelled, Baso % (Auto) Cancelled, Absolute Neuts (auto) Cancelled, Absolute Lymphs (auto) Cancelled, Total Counted Cancelled, Neutrophils % (Manual) Cancelled, Band Neutrophils % Cancelled, Lymphocytes % (Manual) Cancelled, Monocytes % (Manual) Cancelled, Eosinophils % (Manual) Cancelled, Basophils % (Manual) Cancelled, Metamyelocytes % Cancelled, Myelocytes % Cancelled, Promyelocytes % Cancelled, Blast Cells % Cancelled, Plasma Cell % (Manual) Cancelled, Other Cells % Cancelled, Nucleated RBC % Cancelled, Nucleated RBCs/100 WBC Cancelled, Differential Comment Cancelled, Diff Path Review Cancelled, Hypersegmented Neuts Cancelled, Atypical Lymphocytes Cancelled, Reactive Lymphocytes Cancelled, Smudge Cells Cancelled, Toxic Granulation Cancelled, Toxic Vacuolation Cancelled, Dohle Bodies Cancelled, Viridiana Rods Cancelled, Platelet Estimate Cancelled, Plt Morphology Comment Cancelled, RBC Morphology Cancelled 05/14/24 04:00: RBC Morphology Cancelled, Polychromasia Cancelled, Hypochromasia Cancelled, Basophilic Stippling Cancelled, Anisocytosis Cancelled, Microcytosis Cancelled, Macrocytosis Cancelled, Spherocytes Cancelled, Sickle Cells Cancelled, Target Cells Cancelled, Tear Drop Cells Cancelled, Ovalocytes Cancelled, Stomatocytes Cancelled, Whitaker-Oxbow Bodies Cancelled, Renny Cells Cancelled, Bite Cells Cancelled, Crenated Cell Cancelled, Acanthocytes (Spur) Cancelled, Rouleaux Cancelled, Schistocytes Cancelled, Sodium 140, Potassium 3.4 L, Chloride 104, Carbon Dioxide 33.0 H, Anion Gap 3 L, BUN 21 H, Creatinine 0.91, Estim Creat Clear Calc 87.80, Est GFR (MDRD) Af Amer 105, Est GFR (MDRD) Non-Af 87, BUN/Creatinine Ratio 23.1 H, Glucose 123 H, Calcium 8.1 L 05/14/24 05:11: WBC 11.1 H, RBC 5.20, Hgb 12.3 L, Hct 42.0, MCV 80.8 D, MCH 23.7 L, MCHC 29.3 L D, RDW Std Deviation 49.3 H, RDW Coeff of Jeanette 17.1 H, Plt Count 396, MPV 9.6, Immature Gran % (Auto) 0.600, Neut % (Auto) 72.9 H, Lymph % (Auto) 12.8 L, Elk % (Auto) 12.4 H, Eos % (Auto) 0.8, Baso % (Auto) 0.5, A bsolute Neuts (auto) 8.1 H, Absolute Lymphs (auto) 1.42, Nucleated RBC % 0 05/14/24 05:55: POC Glucose 183 H Micro: Microbiology 05/06/24 18:25 Blood Culture (Wb) - Anticubital Left Blood Culture - Final No growth in 5 days. 05/06/24 18:20 Urine Catheter - Perez Urine Culture - Final Culture exhibits no growth. 05/06/24 12:58 Sputum, Induced/Lukens Gram Stain - Final 05/06/24 12:58 Sputum, Induced/Lukens Respiratory Culture - Final Staphylococcus aureus Physical Exam Const alert and no apparent distress HEENT head/scalp atraumatic and moist oral mucous membranes Resp normal respiratory effort, no retractions, no use of accessory muscles and clear to auscultation bilaterally Cardio regular rate, regular rhythm, S1 normal heart sound and S2 normal heart sound GI normal to inspection, nondistended, normoactive bowel sounds, soft to palpation, non-tender and non-distended Neuro Sensorium / Orientation: awake and alert Assessment & Plan Assessment/Plan (1) Acute respiratory failure with hypoxia and hypercarbia: PLAN: Plan Acute respiratory failure w hypoxia and hypercapnia * 2/2 AE asthma with Staph pneumonia * intubated on the . Extubated 05/12 * on methylpred, BDs AE asthma * methylpred and BDs S. aureus pneumonia * MSSA, but resistant to tetracycline, TMP/SMX. * Vancomycin for 7-day course completed T8 vertebral fracture * Patient noted to have T8 anterior inferior vertebral body corner extension fracture with a 2 mm displacement. No evidence of posterior element fracture or displacement. * Conservative measures. Pain control as able. Hypotension * Transient the . Patient did receive IV fluids and subsequently resolved * Unclear etiology but may have been related with all his medications that he was given this morning. Patient ordered 1 L of bolus of normal saline. Expectant management at this time. Dysphagia * Past 2 days patient has vomited after taking his pills. Seen by speech therapy who is recommending pur?ed textures and thin liquids. Also recommending a modified barium swallow to make further recommendations. Chronic conditions * Heart failure preserved ejection fraction: Compensated * Diabetes mellitus type 2: Uncontrolled. Sliding scale insulin. Glargine 30 daily twice daily. Takes NPH of 56 and 44 units at home. VTE prophylaxis with enoxaparin Disposition: Eventually patient will need to go to a [facility] facility. Will wait on further dysphagia evaluation. Charges/Coding Visit Charges Inpatient E&M: 19594 Subs Hosp L2
[2024-05-14] MEDS: Isosorbide Mononitrate 30 MG Tablet PO (11:34)
[2024-05-14] MEDS: Polyethylene Glycol 3350 17 GM PACKET PO (11:34)
[2024-05-14] MEDS: 0.9% Saline Lock 10 ML Syringe IV ×2 (11:35→20:33)
[2024-05-14] MEDS: Clopidogrel Bisulfate 75 MG Tablet PO (11:36)
[2024-05-14] MEDS: Furosemide 40 MG/4 ML Vial IV (11:37)
[2024-05-14] MEDS: Enoxaparin 40 MG/0.4 ML Syringe SC (11:37)
[2024-05-14] MEDS: Carvedilol 25 MG Tablet PO (11:38)
--- NOTE | 2024-05-14 12:31 | NURSING ---
1130 spent approx 50 min in the room, washed and wrapped legs with HEBER wraps, meds given, assisted to recliner with another nurse. call light in reach.
[2024-05-14 12:36] LABS: Bedside Glucose 158 mg/dL (74-106)
[2024-05-14] MEDS: Insulin Glargine-YFGN 100 UNIT/ML Pen 30 UNIT SC ×2 (13:35→22:10)
[2024-05-14 13:52] LABS: Bedside Glucose 197 mg/dL (74-106)
[2024-05-14 15:27] LABS: Bedside Glucose 271 mg/dL (74-106)
[2024-05-14 16:37] LABS: Bedside Glucose 290 mg/dL (74-106)
[2024-05-14] MEDS: Ondansetron 4 MG/2 ML Vial IV (20:33)
[2024-05-14] MEDS: Acetaminophen 650 MG/20 ML UDC PO (20:53)
--- NOTE | 2024-05-14 21:07 | NURSING ---
Pt watching tv. Po drop to 78% on 02 at 5lnc. Increased 02 to 6lnc and encourage pt to take deep breath
[2024-05-14] MEDS: Pramipexole Di-HCl 1 MG Tablet 2 MG PO (22:02)
[2024-05-14] MEDS: Montelukast 10 MG Tablet PO (22:04)
[2024-05-14] MEDS: Pravastatin 40 MG Tablet PO (22:17)
[2024-05-14 22:37] LABS: Bedside Glucose 246 mg/dL (74-106)
[2024-05-15] VITALS (26 sets, daily range): BP systolic 111–139; BP diastolic 58–102; PULSE 60–88; RESP 12–34; TEMP 36.2–37.2; O2SAT 89–100; BMI 34.3
--- NOTE | 2024-05-15 02:15 | NURSING ---
This nurse sitting in room trying to keep bipap on pt. Pt seems more confused. Pt hallucinating and acting like he is eating. Pt attempting to pull mask off. Pt hands moving at all times. . md notified no orders given at this time.
--- NOTE | 2024-05-15 02:27 | NURSING ---
dr awan called back. Pt with bipap on desat into 84%. Pt hallucinating. Pt acting like he is putting his shirt on. Remains restless. notified pt has lots of allergies. chest xray ordered, abg and bnp, call with results.
--- NOTE | 2024-05-15 02:30 | RAD_ITS ---
EXAM: XR CHEST, 1 VIEW CLINICAL INDICATION: r/o chf, pneumonia r/o chf, pneumonia TECHNIQUE: Frontal view of the chest. COMPARISON: Chest x-ray 05/12/2024. FINDINGS: LUNGS AND PLEURAL SPACES: There is mild atelectasis in the lung bases. There is no current evidence for focal pulmonary infiltrates or pleural effusions. Appearance of the lung muñiz has markedly improved. No pneumothorax. HEART: Unremarkable. Cardiac silhouette not enlarged. MEDIASTINUM: Central airways and mediastinal contour are unremarkable. BONES/JOINTS: There are multilevel degenerative changes in the visualized spine. No acute fracture. SOFT TISSUES: Unremarkable. RAD/Chest 1 View (Portable) IMPRESSION: Mild bilateral basilar atelectasis, with no currently demonstrated focal pulmonary infiltrates or pleural effusions. The appearance of the lung muñiz is markedly improved. Electronically Signed: Angel Burks MD at 3:52 EDT Reading Location ID and State: [facility] / [place] , Service support ,
[2024-05-15 02:53] LABS: Allen Test Positive; Base Excess 24 mmol/L (-2 to +2); Bicarbonate 48.3 mmol/L (22-26); Blood Gas Specimen Type ART; Comment 16/8; Mode Not entered; O2 Delivery Device BiPAP; PO2 49 mmHG (75-100); RR 12; SITE L Radial; SO2 82 % (95-99); Total Carbon Dioxide > 50 mmol/L; pH 7.41 (7.35-7.45)
[2024-05-15 03:13] LABS: BNP,B-Type NATRIURETIC PEPTIDE 99.9 pg/mL (0-100)
--- NOTE | 2024-05-15 04:20 | NURSING ---
0405: PT TRANSFERRED TO ICU FOR INCREASED CONFUSION AND ELEVATED CO2 RESULT FROM ABG.
--- NOTE | 2024-05-15 04:52 | PCM.HOSP.N ---
Hospitalist Note I was called by the charge nurse on the medical-surgical unit and informed that this patient was constantly hallucinating and trying to pull off of his BiPAP. She stated she was uncomfortable caring for this patient because he needed constant monitoring. I review his medications shows that he was on scopolamine patch which is known to potentially cause hallucinations his agent was stopped for this reason. He was also ordered a Precedex drip to help keep him calm and prevent worsening of his anxiety and agitation. His ABG revealed a normal pH of 7.41/pCO2 76/pO2 49/HCO3 48.3 at 82% on BiPAP with rate of 12 and 30% FiO2. He also had a chest x-ray done this evening that revealed mild bilateral basilar atelectasis with no currently demonstrated focal pulmonary infiltrates or pleural effusions with marked improvement in the appearance of his lung muñiz. It is hoped patient will be able to transition back to the general medical floor once his hallucinations resolved and his Precedex drip can be stopped. RUN DATE: 05/15/24 [facility], DEPARTMENT OF LABORATORIES PAGE 1 RUN TIME: 4 Specimen Inquiry [id number], [place], [address] PATIENT: BLANCA GILL LOC: ICU U #: [id number] : 1950 AGE/SX: 73/M FACILITY: [facility] ROOM: ICU03 RE05/06/[address]: Dr. Chema Zambrano, STATUS:ADM IN ED: 1 DIS: ~ SPEC #: [id number] SALLIE: 05/15/24 STATUS: COMP REQ #: [id number] RECD: 05/15/[address]: Dr. Chema Zambrano, DO ENTERED: 05/15/[address]: MD Dr. Sylvain Aguilar MD Dr. Chirag Berry, MD Dr. Derek Brown, DO Dr. David Myers, MD Dr. Edward Matheis, MD Dr. Gautam Baskaran, MD Dr. Yordanos Habtegebriel, MD Dr. Hemant Dand, MD Dr. Jose Ochoa, MD Dr. Kimber Foust, MD Dr. Lamia Aljundi, MD Dr. Maya Malys, DO Dr. Amaya Klaudia Koram, MD Dr. Elfego Ethel, MD Dr. Nik Irukulla, MD Dr. Uriel Choco, MD Dr. Larry Jorge, MD Dr. Joseph Wilton, MD ~ Test Result Flag Adult Reference Range IBG Blood Gas Type ART SITE L Radial PRINCESS TEST Positive Mode Not entered O2 Delivery Dev BiPAP RR 12 FI02 30.0 Time Given 02:49:[address] Patten Read Back By Yes Comment 29/04 pH 7.41 7.35-7.45 pCO2 76.0 *H 35-45 mmHg PO2 49 L 75-100 mmHG HCO3 48.3 H 22-26 mmol/L BE 24 H -2 to +2 mmol/L TOTAL CO2 > 50 mmol/L SO2 82 L 95-99 % [facility] Imaging Services [address] [place] [id number] Chest 1 View (Portable) MR#: [id number] Acct: [id number] Name: BLANCA GILL Rep #: [id number] : 1950 M 73 From: Angel Burks MD PCP: Dr. Maya Pradhan DO Status: ADM IN Study: Chest 1 View (Portable) Date of Exam: 05/15/24 Exam# [id number] Ordering Dr: Emmett Patten DO EXAM: XR CHEST, 1 VIEW CLINICAL INDICATION: r/o chf, pneumonia r/o chf, pneumonia TECHNIQUE: Frontal view of the chest. COMPARISON: Chest x-ray 05/12/2024. FINDINGS: LUNGS AND PLEURAL SPACES: There is mild atelectasis in the lung bases. There is no current evidence for focal pulmonary infiltrates or pleural effusions. Appearance of the lung muñiz has markedly improved. No pneumothorax. HEART: Unremarkable. Cardiac silhouette not enlarged. MEDIASTINUM: Central airways and mediastinal contour are unremarkable. BONES/JOINTS: There are multilevel degenerative changes in the visualized spine. No acute fracture. SOFT TISSUES: Unremarkable. RAD/Chest 1 View (Portable) IMPRESSION: Mild bilateral basilar atelectasis, with no currently demonstrated focal pulmonary infiltrates or pleural effusions. The appearance of the lung muñiz is markedly improved. Electronically Signed: Angel Burks MD at 3:52 EDT Reading Location ID and State: [facility] / [place] , Service support , CC: Dr. Emmett Patten DO; Dr. 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
[2024-05-15] MEDS: dexMEDEtomidine 400 MCG in 0.9% Normal Saline (100mL Bag) 96 ML 13.6 MCG CONT INF (05:17)
[2024-05-15] MEDS: 0.9% Saline Lock 10 ML Syringe IV (05:18)
--- NOTE | 2024-05-15 06:55 | PN.HOSP_ITS ---
Reason for Visit Reason for Visit: Diagnoses Obstructive sleep apnea (adult) (pediatric) (05/06/24) Acute respiratory failure with hypoxia (05/06/24) Acute respiratory failure with hypercapnia (05/06/24) Dorsalgia, unspecified (05/06/24) Other fracture of T7-T8 thoracic vertebra, initial encounter for closed fracture (05/06/24) Unspecified fracture of T7-T8 vertebra, initial encounter for closed fracture (05/06/24) Unspecified fall, initial encounter (05/06/24) Subjective Subjective Agitated overnight. Transferred back to ICU for LOC and initiation of dexmedetodine gtt. Mental status since improved. Objective Data Objective Data Vital Signs: Vital Signs Temp Pulse Resp BP Pulse Ox O2 Del Method O2 Flow Rate 36.2 C L 79 27 H 139/73 H 97 Bi-pap 50 05/15/24 04:30 05/15/24 06:00 05/15/24 06:00 05/15/24 06:00 05/15/24 06:00 05/15/24 06:00 05/15/24 06:00 FiO2 40 05/15/24 05:00 Oxygen Flow Rate (L/min) 50 Oxygen Delivery Method Bi-pap Weight: 102.5 kg Body Mass Index (BMI) 34.3 Intake & Output: Intake and Output for Last 24 Hours 05/13/24 05/14/24 05/15/24 23:59 23:59 23:59 Intake Total 1260 / 1260 424.77 / 424.77 Output Total 3300 / 3300 2750 / 3050 530 / 530 Balance -2040 / -2040 -2750 / -2650 -105.23 / -105.23 Lab / Micro Data 05/14/24 05:11 05/14/24 04:00 Labs: Laboratory Results - last 24 hr 05/14/24 11:33: POC Glucose 158 H 05/14/24 13:27: POC Glucose 197 H 05/14/24 15:09: POC Glucose 271 H 05/14/24 16:16: POC Glucose 290 H 05/14/24 21:57: POC Glucose 246 H 05/15/24 02:48: B-Natriuretic Peptide 99.9 Micro: Microbiology 05/06/24 18:25 Blood Culture (Wb) - Anticubital Left Blood Culture - Final No growth in 5 days. 05/06/24 18:20 Urine Catheter - Eprez Urine Culture - Final Culture exhibits no growth. 05/06/24 12:58 Sputum, Induced/Lukens Gram Stain - Final 05/06/24 12:58 Sputum, Induced/Lukens Respiratory Culture - Final Staphylococcus aureus ABG Data ABG results: ABG 05/15/24 02:47 Specimen Type ART Sample Site L Radial pH 7.41 Bicarbonate Actual 48.3 H Total CO2 > 50 Base Excess 24 H O2 Saturation 82 L O2 % 30.0 ABG pCO2 76.0 H* ABG pO2 49 L Bryn Test Positive Respiration Rate 12 O2 Delivery Device BiPAP Vent Mode Not entered Crit Call To/Read Back Yes Blood Gas Notified Whom Dr. Patten Blood Gas Notified Time 02:49:52 Clinical Comments 29/04 Radiography Diagnostic Testing: Radiology Impression Chest X-Ray 05/15/24 02:30 IMPRESSION: Mild bilateral basilar atelectasis, with no currently demonstrated focal pulmonary infiltrates or pleural effusions. The appearance of the lung muñiz is markedly improved. Electronically Signed: Angel Burks MD at 3:52 EDT Reading Location ID and State: [facility] / [place] , Service support , Physical Exam Const alert and no apparent distress Constitutional Narrative: more alert today. HEENT head/scalp atraumatic and moist oral mucous membranes Resp Resp Narrative: coarse breath sounds bilaterally. Cardio regular rate and regular rhythm GI normal to inspection, nondistended, normoactive bowel sounds and soft to palpation Neuro Sensorium / Orientation: awake and alert Assessment & Plan Assessment/Plan (1) Acute respiratory failure with hypoxia and hypercarbia: PLAN: Plan Acute respiratory failure w hypoxia and hypercapnia * 2/2 AE asthma with Staph pneumonia, KRISTI * intubated on the . Extubated 05/12 * on prednisone BDs S. aureus pneumonia * MSSA, but resistant to tetracycline, TMP/SMX. * Vancomycin for 7-day course completed T8 vertebral fracture * Patient noted to have T8 anterior inferior vertebral body corner extension fracture with a 2 mm displacement. No evidence of posterior element fracture or displacement. * Conservative measures. Pain control as able. Dysphagia * Past 2 days patient has vomited after taking his pills. Seen by speech therapy who is recommending pur?ed textures and thin liquids. Also recommending a modified barium swallow to make further recommendations. Encephalopathy, metabolic * likely CO2 narcosis but complicated by ICU psychosis, pneumonia, may also be due to scopolamine patch (which has been DC'd), * DC pramipexole * started on dexmedetomidine gtt, but since discontinued * improved with BiPAP Chronic conditions * Heart failure preserved ejection fraction: Compensated * Diabetes mellitus type 2: Uncontrolled. Sliding scale insulin. Glargine 30 daily twice daily. Takes NPH of 56 and 44 units at home. VTE prophylaxis with enoxaparin Disposition: Eventually patient will need to go to a [facility] facility. Transfer to PCU with BiPAP with sleep and naps. Charges/Coding Visit Charges Inpatient E&M: 56599 Subs Hosp L2
[2024-05-15] MEDS: Budesonide Respules 0.5 MG/2 ML AMPUL.NEB. INHALATION ×2 (07:20→19:25)
[2024-05-15] MEDS: Albuterol 2.5 MG/3 ML VIAL.NEB. INHALATION ×3 (07:20→19:25)
[2024-05-15] MEDS: Isosorbide Mononitrate 30 MG Tablet PO (08:22)
[2024-05-15] MEDS: dexMEDEtomidine 400 MCG in 0.9% Normal Saline (100mL Bag) 96 ML 27.2 MCG CONT INF (10:00)
[2024-05-15] MEDS: Menthol/Lanolin/Calamine/Znox 113 GM Tube 1 APPLIC TOPICAL ×2 (10:19→22:04)
[2024-05-15] MEDS: Enoxaparin 40 MG/0.4 ML Syringe SC (10:20)
[2024-05-15] MEDS: Furosemide 40 MG/4 ML Vial IV (10:20)
--- NOTE | 2024-05-15 13:15 | PCM.PN.TICU ---
Objective Data Objective Data Vital Signs: Vital Signs Last response Temperature 37.1 C 05/15/24 11:52 Temperature Source Temporal 05/15/24 11:52 Pulse Rate 66 05/15/24 11:52 Pulse Strength Weak (1+) 05/15/24 08:41 Respiratory Rate 16 05/15/24 11:52 Respiratory Effort Normal, Non-Labored 05/15/24 11:08 Respiratory Depth Normal 05/15/24 11:08 Respiratory Pattern Tachypnea 05/15/24 11:08 Blood Pressure 121/70 H 05/15/24 11:52 Blood Pressure Mean 87 05/15/24 11:52 Blood Pressure Source Monitor 05/15/24 11:52 Blood Pressure Position Semi-Fowlers 05/15/24 11:52 Blood Pressure Location Left Forearm 05/15/24 11:52 Pulse Ox 93 05/15/24 11:52 Oxygen Delivery Method Nasal Cannula 05/15/24 11:52 Oxygen Flow Rate (L/min) 3 05/15/24 11:52 Fraction of Inspired Oxygen (FIO2) 50 05/15/24 11:45 I&O: I&O Last 24 Hours 05/14/24 05/15/24 05/15/24 23:59 11:59 23:59 Intake Total 553.64 / 553.64 0 / 553.64 Output Total 1300 / 3050 1730 / 1730 Balance -1300 / -2650 -1176.36 / -1176.36 0 / -1176.36 I&O: Total Stay 05/06/24 02:57 thru 05/15/24 12:30 Intake Total 40433.89 Output Total 40594 Balance -52416.11 Current Meds Ordered / Administered: Current meds ordered / Administered Generic Name Dose Route Start Last Admin Trade Name Freq PRN Reason Stop Dose Admin Acetaminophen 650 mg 05/13/24 08:21 05/14/24 20:53 Acetaminophen 650 Mg/20 Ml Udc PO 650 mg Q6H PRN PRN Administration Pain Score 1-10 Albuterol Sulfate 2.5 mg 05/06/24 09:25 Albuterol 2.5 Mg/3 Ml Vial.Neb. INHALATION Q4H PRN shortness of breath or wheezing Albuterol Sulfate 2.5 mg 05/06/24 09:26 05/15/24 07:20 Albuterol 2.5 Mg/3 Ml Vial.Neb. INHALATION 2.5 mg Q6HWA.RT CHAITANYA Administration Aspirin 81 mg 05/14/24 08:00 05/15/24 08:57 Aspirin E.C. 81 Mg Tablet PO Not Given DAILY@0800 CHAITANYA Budesonide 0.5 mg 05/06/24 09:30 05/15/24 07:20 Budesonide Respules 0.5 Mg/2 Ml Ampul.Neb. INHALATION 0.5 mg Q12H.RT CHAITANYA Administration Buspirone HCl 20 mg 05/13/24 10:00 05/15/24 08:58 Buspirone 5 Mg Tablet PO Not Given BID CHAITANYA Calamine/Phenol 1 applic 05/13/24 22:00 05/15/24 10:19 Menthol/Lanolin/Calamine/Znox 113 Gm Tube TOPICAL 1 applic BID [facility] Administration Protocol Carvedilol 25 mg 05/13/24 17:00 05/15/24 08:57 Carvedilol 25 Mg Tablet PO Not [facility] Protocol Cholecalciferol 50 mcg 05/13/24 10:00 05/15/24 09:01 Cholecalciferol (Vit D3) 25 Mcg Tablet (1,000 Units) PO Not Given DAILY CHAITANYA Clopidogrel Bisulfate 75 mg 05/14/24 10:00 05/15/24 09:01 Clopidogrel Bisulfate 75 Mg Tablet PO Not Given DAILY CHAITANYA Enoxaparin Sodium 40 mg 05/09/24 10:00 05/15/24 10:20 Enoxaparin 40 Mg/0.4 Ml Syringe SC 40 mg DAILY CHAITANYA Administration Fluticasone Propionate 1 spray 05/06/24 08:50 05/13/24 21:10 Fluticasone 0.05% 1 [place] Nasal.Sry NASAL 1 spray DAILY PRN Administration nasal spray Furosemide 40 mg 05/12/24 10:00 05/15/24 10:20 Furosemide 40 Mg/4 Ml Vial IV 40 mg DAILY CHAITANYA Administration Protocol Glucagon 1 mg 05/06/24 08:50 Glucagon 1 Mg/Ml Syringe IM X1 PRN HYPOGLYCEMIA Protocol Guaifenesin 600 mg 05/13/24 23:37 05/15/24 09:00 Guaifenesin 600 Mg Tablet PO Not Given BID [facility] Dextrose 250 mls @ 0 mls/hr 05/06/24 08:50 05/09/24 08:30 Dextrose 10%-Water IV Infused .Q0M PRN Infusion HYPOGLYCEMIA Protocol As Directed Sodium Chloride 250 mls @ 15 mls/hr 05/06/24 08:55 05/12/24 09:20 IV Infused .[id number] PRN Infusion Additional IVPB Infusion Sodium Chloride 250 mls @ 15 mls/hr 05/06/24 08:55 05/08/24 23:17 IV Infused .[id number] PRN Infusion Saline Flush Dexmedetomidine HCl 400 mcg/ 100 mls @ 13.613 mls/hr 05/15/24 04:00 05/15/24 12:30 Sodium Chloride CONT INF 0 mcg/kg/hr .Q7H21M CHAITANYA 0 mls/hr Titration Protocol 0.5 MCG/KG/HR Insulin Glargine 30 unit 05/12/24 10:00 05/15/24 11:04 Insulin Glargine-Yfgn 100 Unit/Ml Pen SC Not Given BID CHAITANYA Insulin Human Lispro 0 unit 05/14/24 07:00 05/15/24 11:04 Insulin Lispro 100 Unit/Ml Insuln.Pen SC Not Given ACHS [facility] Protocol Isosorbide Mononitrate 30 mg 05/06/24 10:00 05/15/24 08:22 Isosorbide Mononitrate 30 Mg Tablet PO 30 mg DAILY CHAITANYA Administration Protocol Magnesium Chloride 128 mg 05/06/24 10:00 05/15/24 08:58 Magnesium Chloride 64 Mg Delay Rel.Tablet PO Not Given DAILY CHAITANYA Montelukast Sodium 10 mg 05/13/24 22:00 05/14/24 22:04 Montelukast 10 Mg Tablet PO 10 mg QHS CHAITANYA Administration Multivitamins 1 cap 05/14/24 08:00 05/15/24 08:10 Vitamin B Comp W-C Capsule PO Not [facility] Nitroglycerin 0.4 mg 05/06/24 09:18 Nitroglycerin (Inpatient Use) 0.4 Mg Tab.Subl SL Q5M PRN CARDIAC/CHEST PAIN Ondansetron HCl 4 mg 05/06/24 08:50 05/14/24 20:33 Ondansetron 4 Mg/2 Ml Vial IV 4 mg Q8H PRN PRN Administration NAUSEA/VOMITING Polyethylene Glycol 17 gm 05/13/24 10:00 05/15/24 09:00 Polyethylene Glycol 3350 17 Gm Packet PO Not Given DAILY CHAITANYA Pravastatin Sodium 40 mg 05/13/24 22:00 05/14/24 22:17 Pravastatin 40 Mg Tablet PO 40 mg QHS CHAITANYA Administration Prednisone 40 mg 05/15/24 08:00 05/15/24 08:57 Prednisone 20 Mg Tablet PO 05/20/24 08:01 Not Given BREAKFAST CHAITANYA Sodium Chloride 10 - 40 ml 05/06/24 08:55 05/15/24 05:18 0.9% Saline Lock 10 Ml Syringe IV 20 ml UD PRN Administration SALINE FLUSH Lab / Micro Data 05/14/24 05:11 05/14/24 04:00 Labs: Laboratory Results - last 24 hr 05/14/24 13:27: POC Glucose 197 H 05/14/24 15:09: POC Glucose 271 H 05/14/24 16:16: POC Glucose 290 H 05/14/24 21:57: POC Glucose 246 H 05/15/24 02:48: B-Natriuretic Peptide 99.9 ABG Data ABG results: ABG 05/15/24 02:47 Specimen Type ART Sample Site L Radial pH 7.41 Bicarbonate Actual 48.3 H Total CO2 > 50 Base Excess 24 H O2 Saturation 82 L O2 % 30.0 ABG pCO2 76.0 H* ABG pO2 49 L Bryn Test Positive Respiration Rate 12 O2 Delivery Device BiPAP Vent Mode Not entered Crit Call To/Read Back Yes Blood Gas Notified Whom Dr. Patten Blood Gas Notified Time 02:49:52 Clinical Comments 29/04 Imaging Radiology Impression Chest X-Ray 05/15/24 02:30 IMPRESSION: Mild bilateral basilar atelectasis, with no currently demonstrated focal pulmonary infiltrates or pleural effusions. The appearance of the lung muñiz is markedly improved. Electronically Signed: Angel Burks MD at 3:52 EDT , Assessment and Plan . Assessment and plan: Patient seen and examined Chart and data reviewed HPI 73 yo man w/ h/o asthma admitted w/ acute bronchospasm Has been improving w/ inhaled BD and steroids Also h/o KRISTI He developed delirium overnight - TX to ICU and precedex initiated. Currently lucid and NAD. He is breathing O2 2 LPM comfortably. PHYSICAL EXAM GEN NAD VS as above HEENT PERRL NECK supple COR RRR CHEST coarse w/ E>>I ABD soft EXT minimal edema SKIN w/d JUAN ALBERTO NF ASSESSMENT 1. Asthma 2. Delirium 3. KRISTI 4. DM / ASCVD TREATMENT PLAN -supplemental O2 as needed -steroids / inhaled BD -VTE ppx The entirety of this encounter was done via Telemedicine
[2024-05-15] MEDS: Insulin Lispro 100 UNIT/ML INSULN.PEN SC (15:45)
[2024-05-15] MEDS: Carvedilol 25 MG Tablet PO (15:46)
[2024-05-15 16:06] LABS: Bedside Glucose 235 mg/dL (74-106)
[2024-05-15 21:18] LABS: Bedside Glucose 125 mg/dL (74-106)
[2024-05-15] MEDS: guaiFENesin 600 MG Tablet PO (21:56)
[2024-05-15] MEDS: busPIRone 5 MG Tablet 20 MG PO (21:56)
[2024-05-15] MEDS: Montelukast 10 MG Tablet PO (21:56)
[2024-05-15] MEDS: Pravastatin 40 MG Tablet PO (21:56)
[2024-05-15] MEDS: Insulin Glargine-YFGN 100 UNIT/ML Pen 30 UNIT SC (22:02)
[2024-05-16] VITALS (10 sets, daily range): BP systolic 113–122; BP diastolic 57–70; PULSE 74–100; RESP 12–20; TEMP 36.9–37.1; O2SAT 93–99; BMI 34.5
[2024-05-16 00:44] LABS: Bedside Glucose 136 mg/dL (74-106)
[2024-05-16 05:43] LABS: Absolute Lymphocyte Count 1.73 X10^3/uL (0.83-4.51); Absolute Neutrophil Count 6.9 X10^3/uL (2.0-7.7); Basophil# 0.07 X10^3/uL; Basophil% 0.7 % (0-1); Eosinophil# 0.17 X10^3/uL; Eosinophils% 1.7 % (0-5); Hematocrit 40.5 % (40-54); Hemoglobin 12.3 g/dL (13.0-16.5); Lymphocyte # 1.73 X10^3/ul (0.83-4.51); Mean Corp Hgb Conc 30.4 g/dL (32-36); Mean Corpuscular Hgb 23.4 pg (27.0-32.0); Mean Platelet Vol. 9.8 fl (6.2-12.0); Monocyte# 1.25 X10^3/uL; Monocyte% 12.3 % (0-10); NRBC Flagged by Analyzer 0 % (0-5); Neutrophil # 6.88 X10^3/uL (2.7-7.7); Neutrophil % 67.7 % (47-70); Platelet Count 445 K/mm3 (150-450); RBC Distribution Width CV 17.5 % (11.6-14.6); RBC Distribution Width SD 47.2 fl (35.1-43.9); Red Blood Count 5.26 M/mm3 (4.6-6.2); White Blood Count 10.2 K/mm3 (4.4-11.0)
[2024-05-16 06:03] LABS: Anion Gap 8 (5-15); BUN 21 mg/dL (7-18); Calcium,Total 9.5 mg/dL (8.5-10.1); Chloride 91 mmol/L (98-107); Creatinine, Serum 0.96 mg/dL (0.70-1.30); EST Glomerular Filtration Rate 82 mL/min (>60); Est Glom Filt Rate - Afr Amer 99 mL/min (>60); Estimated Creatinine Clearance 80.91 ml/min; Glucose 120 mg/dL (74-106); Potassium 2.9 mmol/L (3.5-5.1); Sodium Level 136 mmol/L (136-145)
[2024-05-16] MEDS: Insulin Lispro 100 UNIT/ML INSULN.PEN SC ×4 (06:14→22:58)
[2024-05-16 06:49] LABS: Bedside Glucose 167 mg/dL (74-106)
[2024-05-16] MEDS: Albuterol 2.5 MG/3 ML VIAL.NEB. INHALATION ×2 (07:11→19:33)
[2024-05-16] MEDS: Budesonide Respules 0.5 MG/2 ML AMPUL.NEB. INHALATION ×2 (07:11→19:33)
[2024-05-16 11:10] LABS: Magnesium 2.1 mg/dL (1.6-2.6)
[2024-05-16] MEDS: Polyethylene Glycol 3350 17 GM PACKET PO (11:18)
[2024-05-16] MEDS: Aspirin E.C. 81 MG Tablet PO (11:21)
[2024-05-16] MEDS: busPIRone 5 MG Tablet 20 MG PO ×2 (11:22→22:18)
[2024-05-16] MEDS: Vitamin B Comp W-C Capsule 1 CAP PO (11:22)
[2024-05-16] MEDS: Carvedilol 25 MG Tablet PO ×2 (11:22→16:11)
[2024-05-16] MEDS: predniSONE 20 MG Tablet 40 MG PO (11:23)
[2024-05-16] MEDS: Menthol/Lanolin/Calamine/Znox 113 GM Tube 1 APPLIC TOPICAL ×2 (11:24→22:19)
[2024-05-16] MEDS: Isosorbide Mononitrate 30 MG Tablet PO (11:24)
[2024-05-16] MEDS: Magnesium Chloride 64 MG Delay Rel.Tablet 128 MG PO (11:25)
[2024-05-16] MEDS: guaiFENesin 600 MG Tablet PO ×2 (11:25→22:18)
[2024-05-16] MEDS: Clopidogrel Bisulfate 75 MG Tablet PO (11:26)
[2024-05-16] MEDS: Enoxaparin 40 MG/0.4 ML Syringe SC (11:27)
[2024-05-16] MEDS: Cholecalciferol (VIT D3) 25 MCG TABLET (1,000 UNITS) 50 MCG PO (11:27)
[2024-05-16] MEDS: Furosemide 40 MG/4 ML Vial IV (11:27)
[2024-05-16] MEDS: Potassium Chloride 10mEq/100mL 10 MEQ/100 ML IV.SOLN. 100 MEQ IV BOLUS ×4 (11:52→16:57)
[2024-05-16] MEDS: Insulin Glargine-YFGN 100 UNIT/ML Pen 30 UNIT SC ×2 (11:59→22:58)
--- NOTE | 2024-05-16 12:49 | PN.HOSP_ITS ---
Reason for Visit Reason for Visit: Diagnoses Obstructive sleep apnea (adult) (pediatric) (05/06/24) Acute respiratory failure with hypoxia (05/06/24) Acute respiratory failure with hypercapnia (05/06/24) Dorsalgia, unspecified (05/06/24) Other fracture of T7-T8 thoracic vertebra, initial encounter for closed fracture (05/06/24) Unspecified fracture of T7-T8 vertebra, initial encounter for closed fracture (05/06/24) Unspecified fall, initial encounter (05/06/24) Objective Data Objective Data Vital Signs: Vital Signs Temp Pulse Resp BP Pulse Ox O2 Del Method O2 Flow Rate 98.8 F 100 16 119/70 94 Nasal Cannula 3 05/16/24 11:08 05/16/24 11:08 05/16/24 11:08 05/16/24 11:08 05/16/24 11:08 05/16/24 11:08 05/16/24 11:08 FiO2 50 05/16/24 03:00 Oxygen Flow Rate (L/min) 3 Oxygen Delivery Method Nasal Cannula Weight: 227 lb 1.218 oz Body Mass Index (BMI) 34.5 Intake & Output: Intake and Output for Last 24 Hours 05/14/24 05/15/24 05/16/24 23:59 23:59 23:59 Intake Total 1033.64 / 1033.64 Output Total 2750 / 3050 2380 / 2380 Balance -2750 / -2650 -1346.36 / -1346.36 Lab / Micro Data 05/16/24 05:22 05/16/24 05:22 Labs: Laboratory Results - last 24 hr 05/15/24 11:03: POC Glucose 136 H 05/15/24 15:43: POC Glucose 235 H 05/15/24 20:57: POC Glucose 125 H 05/16/24 05:22: WBC 10.2, RBC 5.26, Hgb 12.3 L, Hct 40.5, MCV 77.0 L, MCH 23.4 L , MCHC 30.4 L, RDW Std Deviation 47.2 H, RDW Coeff of Jeanette 17.5 H, Plt Count 445, MPV 9.8, Immature Gran % (Auto) 0.600, Neut % (Auto) 67.7, Lymph % (Auto) 17.0 L , [place] % (Auto) 12.3 H, Eos % (Auto) 1.7, Baso % (Auto) 0.7, Absolute Neuts (auto) 6.9, Absolute Lymphs (auto) 1.73, Nucleated RBC % 0, Sodium 136, P otassium 2.9 L, Chloride 91 L, Carbon Dioxide 37.0 H, Anion Gap 8, BUN 21 H, Creatinine 0.96, Estim Creat Clear Calc 80.91, Est GFR (MDRD) Af Amer 99, Est GFR (MDRD) Non-Af 82, BUN/Creatinine Ratio 22.0 H, Glucose 120 H, Calcium 9.5, P hosphorus 2.0 L, Magnesium 2.1 05/16/24 06:13: POC Glucose 167 H Micro: Microbiology 05/06/24 18:25 Blood Culture (Wb) - Anticubital Left Blood Culture - Final No growth in 5 days. 05/06/24 18:20 Urine Catheter - Perez Urine Culture - Final Culture exhibits no growth. 05/06/24 12:58 Sputum, Induced/Lukens Gram Stain - Final 05/06/24 12:58 Sputum, Induced/Lukens Respiratory Culture - Final Staphylococcus aureus Physical Exam Narrative Seen and examined. Patient was admitted with hypercapnic respiratory failure and was emergently intubated, extubated and transferred to PCU from ICU. Uses BiPAP during the night and naps. Physical exam General: Alert, Oriented x3, Cooperative HEENT: Atraumatic, PERRLA, EOMI, Normocephalic Oral: No Gingival or Mucosal Lesions/ Ulcerations Neck: Supple, No JVD, Negative Carotid Bruits Chest wall/Lungs: Air entry severely diminished in bilateral lung bases. Expiratory rhonchi Cardiovascular: Regular rate, Regular Rhythm, Normal S1, Normal S2, No M/G/R Abdomen: Bowel Sounds Present, Soft, Non Tender, Non-Distended : Perez catheter. 250 mL since morning. No renal angle tenderness. No suprapubic tenderness. Extremities: No edema, Capillary Refill Less than 3 Seconds Skin: No rashes, No breakdown Musculoskeletal: No Tenderness to Palpation of Joints or Extremities Neurological: Cranial nerves II-XII grossly intact, DTR 2+/4. No acute focal neurological deficit. Psych/Mental Status: Normal Affect, Appropriate. Assessment & Plan Assessment/Plan (1) Acute respiratory failure with hypoxia and hypercarbia: PLAN: Plan 73-year-old gentleman was admitted with a chief complaint of fall while trying to get blanket in the ED tripped on some object on the ground. Patient struck the back of his head neck and upper back on the stone. No reported LOC. Initially patient was admitted [facility] floor 3 but was found very lethargic and confused concern for acute metabolic encephalopathy due to hypercapnia. ABG showed pH 7.11, pCO2 109.8. Patient was transferred to ICU Acute respiratory failure w hypoxia and hypercapnia * 2/2 AE asthma with Staph pneumonia, KRISTI * intubated on the . Extubated 05/12 * on prednisone 40 mg daily. S. aureus pneumonia * MSSA, but resistant to tetracycline, TMP/SMX. * Vancomycin for 7-day course completed T8 vertebral fracture * Patient noted to have T8 anterior inferior vertebral body corner extension fracture with a 2 mm displacement. No evidence of posterior element fracture or displacement. * Conservative measures. Pain control as able. Dysphagia * Past 2 days patient has vomited after taking his pills. Seen by speech therapy who is recommending pur?ed textures and thin liquids. Also recommending a modified barium swallow to make further recommendations. Encephalopathy, metabolic * likely CO2 narcosis but complicated by ICU psychosis, pneumonia, may also be due to scopolamine patch (which has been DC'd), * DC pramipexole * started on dexmedetomidine gtt, but since discontinued * improved with BiPAP Electrolyte abnormality: hypokalemia, K2.9. Phosphorus 2.0. Potassium phosphate replaced. Chronic conditions * Heart failure preserved ejection fraction: Compensated * Diabetes mellitus type 2: Uncontrolled. Sliding scale insulin. Glargine 30 daily twice daily. Takes NPH of 56 and 44 units at home. VTE prophylaxis with enoxaparin Disposition: Eventually patient will need to go to a halfway facility. Transfer to PCU with BiPAP with sleep and naps. Charges/Coding Visit Charges Inpatient E&M: 38786 Subs Hosp L2
[2024-05-16 12:52] LABS: Bedside Glucose 217 mg/dL (74-106)
[2024-05-16] MEDS: Potassium Phosphate 21 MM in 0.9% Normal Saline (250mL Bag) 250 ML 84 MM IV (15:32)
[2024-05-16 16:32] LABS: Bedside Glucose 391 mg/dL (74-106)
[2024-05-16] MEDS: Tamsulosin HCl 0.4 MG Capsule PO (19:07)
[2024-05-16] MEDS: Montelukast 10 MG Tablet PO (22:18)
[2024-05-16] MEDS: Pravastatin 40 MG Tablet PO (22:18)
[2024-05-16 23:29] LABS: Bedside Glucose 372 mg/dL (74-106)
[2024-05-17] VITALS (9 sets, daily range): BP systolic 105–135; BP diastolic 67–77; PULSE 78–88; RESP 12–20; TEMP 36.4–36.9; O2SAT 91–97; BMI 34.5
[2024-05-17] MEDS: Albuterol 2.5 MG/3 ML VIAL.NEB. INHALATION ×3 (04:15→20:07)
[2024-05-17] MEDS: Insulin Lispro 100 UNIT/ML INSULN.PEN SC ×4 (06:52→22:27)
[2024-05-17 07:02] LABS: Absolute Neutrophil Count 7.1 X10^3/uL (2.0-7.7); Basophil# 0.03 X10^3/uL; Basophil% 0.3 % (0-1); Eosinophil# 0.09 X10^3/uL; Eosinophils% 0.9 % (0-5); Hematocrit 39.7 % (40-54); Hemoglobin 11.9 g/dL (13.0-16.5); Lymphocyte % 15.2 % (19-41); Mean Corpuscular Hgb 23.4 pg (27.0-32.0); Mean Corpuscular Volume 78.1 fL (80-94); Monocyte# 1.11 X10^3/uL; Monocyte% 11.2 % (0-10); NRBC Flagged by Analyzer 0 % (0-5); Platelet Count 426 K/mm3 (150-450); RBC Distribution Width CV 17.1 % (11.6-14.6); RBC Distribution Width SD 47.5 fl (35.1-43.9); Red Blood Count 5.08 M/mm3 (4.6-6.2); White Blood Count 9.9 K/mm3 (4.4-11.0)
[2024-05-17] MEDS: Budesonide Respules 0.5 MG/2 ML AMPUL.NEB. INHALATION ×2 (07:05→20:07)
[2024-05-17 07:13] LABS: Bedside Glucose 249 mg/dL (74-106)
[2024-05-17 07:38] LABS: Anion Gap 5 (5-15); BUN 22 mg/dL (7-18); BUN/Creat Ratio 25.7 RATIO (10-20); Calcium,Total 8.9 mg/dL (8.5-10.1); Chloride 94 mmol/L (98-107); Creatinine, Serum 0.86 mg/dL (0.70-1.30); EST Glomerular Filtration Rate 93 mL/min (>60); Est Glom Filt Rate - Afr Amer 113 mL/min (>60); Estimated Creatinine Clearance 90.32 ml/min; Glucose 263 mg/dL (74-106); Phosphorus 3.3 mg/dL (2.5-4.9); Potassium 3.2 mmol/L (3.5-5.1); Sodium Level 135 mmol/L (136-145)
[2024-05-17] MEDS: Isosorbide Mononitrate 30 MG Tablet PO (10:15)
[2024-05-17] MEDS: Vitamin B Comp W-C Capsule 1 CAP PO (10:16)
[2024-05-17] MEDS: Carvedilol 25 MG Tablet PO ×2 (10:16→16:19)
[2024-05-17] MEDS: Clopidogrel Bisulfate 75 MG Tablet PO (10:16)
[2024-05-17] MEDS: guaiFENesin 600 MG Tablet PO (10:17)
[2024-05-17] MEDS: Magnesium Chloride 64 MG Delay Rel.Tablet 128 MG PO (10:17)
[2024-05-17] MEDS: Cholecalciferol (VIT D3) 25 MCG TABLET (1,000 UNITS) 50 MCG PO (10:17)
[2024-05-17] MEDS: Aspirin E.C. 81 MG Tablet PO (10:19)
[2024-05-17] MEDS: predniSONE 20 MG Tablet 40 MG PO (10:19)
[2024-05-17] MEDS: busPIRone 5 MG Tablet 20 MG PO ×2 (10:19→20:00)
[2024-05-17] MEDS: Furosemide 40 MG/4 ML Vial IV (10:20)
[2024-05-17] MEDS: Insulin Glargine-YFGN 100 UNIT/ML Pen 30 UNIT SC ×2 (10:20→22:28)
[2024-05-17] MEDS: Polyethylene Glycol 3350 17 GM PACKET PO (10:20)
[2024-05-17] MEDS: Menthol/Lanolin/Calamine/Znox 113 GM Tube 1 APPLIC TOPICAL ×2 (10:20→20:02)
[2024-05-17] MEDS: Enoxaparin 40 MG/0.4 ML Syringe SC (10:21)
[2024-05-17] MEDS: 0.9% Saline Lock 10 ML Syringe IV (10:26)
[2024-05-17] MEDS: Potassium Chloride Oral Tablet 20 MEQ 40 MEQ PO ×2 (10:26→16:19)
--- NOTE | 2024-05-17 10:32 | PCM.PN.INT ---
Assessment & Plan Assessment/Plan (1) Acute respiratory failure with hypoxia and hypercarbia: PLAN: Plan RECOMMENDATIONS: 1. Supplemental oxygen to maintain saturations at or above 90%. 2. PAP therapy with naps and nightly. 3. Continue bronchodilators and steroids. Recommend prednisone taper at discharge. 4. Discontinue IV Lasix. 5. Continue appropriate DVT prophylaxis. 6. Continue current insulin regimen. 7. Encourage incentive spirometer use and mobilize patient as tolerated. 8. Perform walking oximetry study prior to consideration for discharge home. 9. The patient should follow-up in the pulmonary medicine clinic within 2 weeks of discharge from the hospital. Will sign off at this time. Please call with any additional questions. IMPRESSIONS: 1. Acute respiratory failure with hypoxemia and hypercapnia The patient has a reported history of asthma and is currently followed on an outpatient basis in the pulmonary medicine clinic. In addition, he has a known history of sleep apnea, noncompliant with PAP therapy. He appears to be experiencing an acute exacerbation of his underlying asthma secondary to staphylococcal pneumonia. The patient has improved from a respiratory perspective. He has completed an antibiotic treatment course and remains on bronchodilators and steroids. At discharge, would recommend that he be sent home on a prednisone taper. Given his rising bicarbonate, will discontinue IV Lasix. Continue supplemental oxygen to maintain saturations at or above 90%. Encourage incentive spirometer use and mobilize patient as tolerated. The patient should follow-up in the pulmonary medicine clinic within 2 weeks of discharge from the hospital. 2. Recent fall with resultant T8 fracture Physical therapy to continue to work with the patient. 3. History of heart failure with preserved ejection fraction Resume home Lasix regimen. 4. History of sleep apnea with PAP noncompliance/diabetes mellitus/history of coronary artery disease status status post PCI Complicates care, management, recovery and prognosis. Continue supportive measures as noted above. The patient will be continued on long-acting insulin and continued on sliding scale coverage. BiPAP therapy to be continued with naps and nightly. This note was generated with [employer] dictation software. It may contain incorrect words, spelling, and punctuation that were not noted in checking the note before signing. Subjective Subjective The patient was seen and examined at the bedside this morning. Events from the last 24 hours have been reviewed. The patient is currently afebrile, hemodynamically stable and maintaining appropriate oxygen saturations on 3 L/min via nasal cannula. The patient's diet is slowly being advanced. Potassium was low this morning at 3.2 with a bicarbonate of 36. Objective Data Objective Data The patient's most recent lab work, culture data and imaging studies have all been personally reviewed. Surface echocardiogram completed on May 07 demonstrated stage I diastolic dysfunction with an ejection fraction of 55%. Sputum culture dated May 06 was positive for Staph aureus. Vital Signs: Vital Signs Temp Pulse Resp BP Pulse Ox O2 Del Method O2 Flow Rate 97.6 F L 81 18 135/73 H 97 Nasal Cannula 3 05/17/24 10:13 05/17/24 10:13 05/17/24 10:13 05/17/24 10:13 05/17/24 10:13 05/17/24 10:13 05/17/24 10:13 FiO2 50 05/17/24 01:44 Oxygen Flow Rate (L/min) 3 Oxygen Delivery Method Nasal Cannula Weight: 227 lb 1.218 oz Body Mass Index (BMI) 34.5 Intake & Output: Intake and Output for Last 24 Hours 05/15/24 05/16/24 05/17/24 23:59 23:59 23:59 Intake Total 1033.64 / 1033.64 1300 / 1300 457 / 457 Output Total 2380 / 2380 1100 / 1100 1050 / 1050 Balance -1346.36 / -1346.36 200 / 200 -593 / -593 Lab / Micro Data Attestation: I reviewed the patient's lab results. 05/17/24 06:19 05/17/24 06:19 Labs: Laboratory Results - last 24 hr 05/16/24 05:22: Phosphorus 2.0 L, Magnesium 2.1 05/16/24 11:16: POC Glucose 217 H 05/16/24 16:07: POC Glucose 391 H 05/16/24 22:54: POC Glucose 372 H 05/17/24 06:19: WBC 9.9, RBC 5.08, Hgb 11.9 L, Hct 39.7 L, MCV 78.1 L, MCH 23.4 L, MCHC 30.0 L, RDW Std Deviation 47.5 H, RDW Coeff of Jeanette 17.1 H, Plt Count 426, MPV 10.0, Immature Gran % (Auto) 0.400, Neut % (Auto) 72.0 H, Lymph % (Auto) 15.2 L, [place] % (Auto) 11.2 H, Eos % (Auto) 0.9, Baso % (Auto) 0.3, Absolute Neuts (auto) 7.1, Absolute Lymphs (auto) 1.50, Nucleated RBC % 0, Sodium 135 L, Potassium 3.2 L, Chloride 94 L, Carbon Dioxide 36.0 H, Anion Gap 5, BUN 22 H, Creatinine 0.86, Estim Creat Clear Calc 90.32, Est GFR (MDRD) Af Amer 113, Est GFR (MDRD) Non-Af 93, BUN/Creatinine Ratio 25.7 H, Glucose 263 H, Calcium 8.9, Phosphorus 3.3 05/17/24 06:48: POC Glucose 249 H Micro: Microbiology 05/06/24 18:25 Blood Culture (Wb) - Anticubital Left Blood Culture - Final No growth in 5 days. 05/06/24 18:20 Urine Catheter - Perez Urine Culture - Final Culture exhibits no growth. 05/06/24 12:58 Sputum, Induced/Lukens Gram Stain - Final 05/06/24 12:58 Sputum, Induced/Lukens Respiratory Culture - Final Staphylococcus aureus Radiography Diagnostic Testing: Radiology Impression Chest X-Ray 05/12/24 05:00 IMPRESSION: CHF is worse since the previous study. Electronically Signed: Davonte Griggs MD at 4:57 EDT Reading Location ID and State: [address] [place] [address] Tel , Service support , Physical Exam Const alert and no apparent distress Constitutional Narrative: Sitting on the bedside. General Appearance: cooperative HEENT normocephalic, head/scalp atraumatic and moist oral mucous membranes Eyes PERRL, EOMs intact bilaterally and conjunctivae normal Neck supple General: trachea midline Chest inspection of chest normal Resp normal respiratory effort Auscultation: diminished lung sounds; Negative for rales, rhonchi or wheezes Cardio regular rate and regular rhythm GI normal to inspection, nondistended, normoactive bowel sounds Extremity Extremity Narrative: Wrapped lower extremities. General Extremity: Negative for clubbing Skin no rashes or lesions noted Neuro CN's II-XII intact bilaterally, moves all extremities and no focal motor deficits Psych cooperative and affect normal Charges/Coding Visit Charges Inpatient E&M: 68808 Subs Hosp L2
--- NOTE | 2024-05-17 11:08 | CASEMGMT ---
Addendum entered by Teena Webster 05/17/24 11:35: Social Work SW spoke w/pt's granddaughter Jennifer, she returned SW call. She states she spoke w/pt's son Jacob, they would like [facility]. She did check w/Jacob, and pt was agreeable to [facility] yesterday evening. Should [facility] not be able to take pt, Jennifer will speak w/Jacob for additional choices. SW sent referral to [facility] via [facility], will await a response. BJ Marrero Original Note: Social Work SW called granddaughter Jennifer in regard to SNF choices, message left requesting she return SW call. SW will continue to follow. BJ Marrero
[2024-05-17 11:36] LABS: Bedside Glucose 363 mg/dL (74-106)
--- NOTE | 2024-05-17 13:56 | CASEMGMT ---
[facility] accepted patient and will start pre-cert. Plan: d/c to [facility] pending insurance approval. Melanie VALDEZ
--- NOTE | 2024-05-17 15:40 | PN.HOSP_ITS ---
Reason for Visit Reason for Visit: Diagnoses Obstructive sleep apnea (adult) (pediatric) (05/06/24) Acute respiratory failure with hypoxia (05/06/24) Acute respiratory failure with hypercapnia (05/06/24) Dorsalgia, unspecified (05/06/24) Other fracture of T7-T8 thoracic vertebra, initial encounter for closed fracture (05/06/24) Unspecified fracture of T7-T8 vertebra, initial encounter for closed fracture (05/06/24) Unspecified fall, initial encounter (05/06/24) Objective Data Objective Data Vital Signs: Vital Signs Temp Pulse Resp BP Pulse Ox O2 Del Method O2 Flow Rate 97.6 F L 81 18 135/73 H 97 Nasal Cannula 3 05/17/24 10:13 05/17/24 10:13 05/17/24 10:13 05/17/24 10:13 05/17/24 10:13 05/17/24 15:00 05/17/24 15:00 FiO2 50 05/17/24 01:44 Oxygen Flow Rate (L/min) 3 Oxygen Delivery Method Nasal Cannula Weight: 227 lb 1.218 oz Body Mass Index (BMI) 34.5 Intake & Output: Intake and Output for Last 24 Hours 05/15/24 05/16/24 05/17/24 23:59 23:59 23:59 Intake Total 1033.64 / 1033.64 1300 / 1300 457 / 457 Output Total 2380 / 2380 1100 / 1100 1050 / 1050 Balance -1346.36 / -1346.36 200 / 200 -593 / -593 Lab / Micro Data 05/17/24 06:19 05/17/24 06:19 Labs: Laboratory Results - last 24 hr 05/16/24 16:07: POC Glucose 391 H 05/16/24 22:54: POC Glucose 372 H 05/17/24 06:19: WBC 9.9, RBC 5.08, Hgb 11.9 L, Hct 39.7 L, MCV 78.1 L, MCH 23.4 L, MCHC 30.0 L, RDW Std Deviation 47.5 H, RDW Coeff of Jeanette 17.1 H, Plt Count 426, MPV 10.0, Immature Gran % (Auto) 0.400, Neut % (Auto) 72.0 H, Lymph % (Auto) 15.2 L, [place] % (Auto) 11.2 H, Eos % (Auto) 0.9, Baso % (Auto) 0.3, Absolute Neuts (auto) 7.1, Absolute Lymphs (auto) 1.50, Nucleated RBC % 0, S odium 135 L, Potassium 3.2 L, Chloride 94 L, Carbon Dioxide 36.0 H, Anion Gap 5, BUN 22 H, Creatinine 0.86, Estim Creat Clear Calc 90.32, Est GFR (MDRD) Af Amer 113, Est GFR (MDRD) Non-Af 93, BUN/Creatinine Ratio 25.7 H, Glucose 263 H, Calcium 8.9, Phosphorus 3.3 05/17/24 06:48: POC Glucose 249 H 05/17/24 11:14: POC Glucose 363 H Micro: Microbiology 05/06/24 18:25 Blood Culture (Wb) - Anticubital Left Blood Culture - Final No growth in 5 days. 05/06/24 18:20 Urine Catheter - Perez Urine Culture - Final Culture exhibits no growth. 05/06/24 12:58 Sputum, Induced/Lukens Gram Stain - Final 05/06/24 12:58 Sputum, Induced/Lukens Respiratory Culture - Final Staphylococcus aureus Physical Exam Narrative Seen and examined. Patient was admitted with hypercapnic respiratory failure and was emergently intubated, extubated and transferred to PCU from ICU. Uses BiPAP during the night and naps. Patient feels comfortable. No acute change. Physical exam General: Alert, Oriented x3, Cooperative HEENT: Atraumatic, PERRLA, EOMI, Normocephalic Oral: No Gingival or Mucosal Lesions/ Ulcerations Neck: Supple, No JVD, Negative Carotid Bruits Chest wall/Lungs: Air entry severely diminished in bilateral lung bases. Mild expiratory rhonchi. Cardiovascular: Regular rate, Regular Rhythm, Normal S1, Normal S2, No M/G/R Abdomen: Bowel Sounds Present, Soft, Non Tender, Non-Distended : Perez catheter. 250 mL since morning. No renal angle tenderness. No suprapubic tenderness. Extremities: No edema, Capillary Refill Less than 3 Seconds Skin: No rashes, No breakdown Musculoskeletal: No Tenderness to Palpation of Joints or Extremities Neurological: Cranial nerves II-XII grossly intact, DTR 2+/4. No acute focal neurological deficit. Psych/Mental Status: Normal Affect, Appropriate. Assessment & Plan Assessment/Plan (1) Acute respiratory failure with hypoxia and hypercarbia: PLAN: Plan 73-year-old gentleman was admitted with a chief complaint of fall while trying to get blanket in the ED tripped on some object on the ground. Patient struck the back of his head neck and upper back on the stone. No reported LOC. Initially patient was admitted [facility] floor 3 but was found very lethargic and confused concern for acute metabolic encephalopathy due to hypercapnia. ABG showed pH 7.11, pCO2 109.8. Patient was transferred to ICU Acute respiratory failure w hypoxia and hypercapnia * / AE asthma with Staph pneumonia, KRISTI * intubated on the . Extubated 05/12 * on prednisone 40 mg daily. 05/17: On Advair. Albuterol inhaler as needed. S. aureus pneumonia * MSSA, but resistant to tetracycline, TMP/SMX. * Vancomycin for 7-day course completed T8 vertebral fracture * Patient noted to have T8 anterior inferior vertebral body corner extension fracture with a 2 mm displacement. No evidence of posterior element fracture or displacement. * Conservative measures. Pain control as able. Dysphagia * Past 2 days patient has vomited after taking his pills. Seen by speech therapy who is recommending pur?ed textures and thin liquids. Also recommending a modified barium swallow to make further recommendations. Encephalopathy, metabolic * likely CO2 narcosis but complicated by ICU psychosis, pneumonia, may also be due to scopolamine patch (which has been DC'd), * DC pramipexole * started on dexmedetomidine gtt, but since discontinued * improved with BiPAP Electrolyte abnormality: hypokalemia, K2.9. Phosphorus 2.0. Potassium phosphate replaced. Chronic conditions * Heart failure preserved ejection fraction: Compensated * Diabetes mellitus type 2: Uncontrolled. Sliding scale insulin. Glargine 30 daily twice daily. Takes NPH of 56 and 44 units at home. VTE prophylaxis with enoxaparin Disposition: Eventually patient will need to go to a [facility] facility. Waiting pre-CERT Transfer to PCU with BiPAP with sleep and naps. Charges/Coding Visit Charges Inpatient E&M: 71231 Subs Hosp L2
[2024-05-17] MEDS: Tamsulosin HCl 0.4 MG Capsule PO (16:19)
[2024-05-17 16:43] LABS: Bedside Glucose 380 mg/dL (74-106)
[2024-05-17] MEDS: Montelukast 10 MG Tablet PO (20:02)
[2024-05-17] MEDS: Pravastatin 40 MG Tablet PO (20:02)
[2024-05-17] MEDS: guaiFENesin 1,200 MG Tablet 1200 MG PO (20:09)
[2024-05-18] VITALS (7 sets, daily range): BP systolic 119–130; BP diastolic 74–79; PULSE 75–85; RESP 12–18; TEMP 36.7–36.9; O2SAT 93–100
[2024-05-18 01:28] LABS: Bedside Glucose 377 mg/dL (74-106)
[2024-05-18] MEDS: Insulin Lispro 100 UNIT/ML INSULN.PEN SC ×3 (06:36→16:10)
[2024-05-18 07:11] LABS: Bedside Glucose 209 mg/dL (74-106)
[2024-05-18 07:27] LABS: Absolute Lymphocyte Count 1.73 X10^3/uL (0.83-4.51); Absolute Neutrophil Count 8.7 X10^3/uL (2.0-7.7); Basophil# 0.03 X10^3/uL; Basophil% 0.3 % (0-1); Eosinophil# 0.12 X10^3/uL; Hematocrit 38.3 % (40-54); Hemoglobin 11.6 g/dL (13.0-16.5); Lymphocyte # 1.73 X10^3/ul (0.83-4.51); Lymphocyte % 14.8 % (19-41); Mean Corp Hgb Conc 30.3 g/dL (32-36); Mean Corpuscular Hgb 23.4 pg (27.0-32.0); Mean Corpuscular Volume 77.2 fL (80-94); Mean Platelet Vol. 10.6 fl (6.2-12.0); Monocyte# 1.06 X10^3/uL; NRBC Flagged by Analyzer 0 % (0-5); Neutrophil # 8.72 X10^3/uL (2.7-7.7); Neutrophil % 74.4 % (47-70); Platelet Count 427 K/mm3 (150-450); RBC Distribution Width CV 17.2 % (11.6-14.6); RBC Distribution Width SD 46.6 fl (35.1-43.9); Red Blood Count 4.96 M/mm3 (4.6-6.2); White Blood Count 11.7 K/mm3 (4.4-11.0)
[2024-05-18 07:37] LABS: Anion Gap 4 (5-15); BUN 17 mg/dL (7-18); BUN/Creat Ratio 20.9 RATIO (10-20); Calcium,Total 9.1 mg/dL (8.5-10.1); Chloride 98 mmol/L (98-107); Creatinine, Serum 0.81 mg/dL (0.70-1.30); EST Glomerular Filtration Rate 99 mL/min (>60); Est Glom Filt Rate - Afr Amer 120 mL/min (>60); Estimated Creatinine Clearance 95.89 ml/min; Glucose 207 mg/dL (74-106); Potassium 3.7 mmol/L (3.5-5.1); Sodium Level 134 mmol/L (136-145)
[2024-05-18] MEDS: Albuterol 2.5 MG/3 ML VIAL.NEB. INHALATION ×2 (07:46→12:46)
[2024-05-18] MEDS: Budesonide Respules 0.5 MG/2 ML AMPUL.NEB. INHALATION (07:46)
[2024-05-18] MEDS: Magnesium Chloride 64 MG Delay Rel.Tablet 128 MG PO (08:35)
[2024-05-18] MEDS: Clopidogrel Bisulfate 75 MG Tablet PO (08:35)
[2024-05-18] MEDS: Cholecalciferol (VIT D3) 25 MCG TABLET (1,000 UNITS) 50 MCG PO (08:35)
[2024-05-18] MEDS: Vitamin B Comp W-C Capsule 1 CAP PO (08:35)
[2024-05-18] MEDS: Potassium Chloride Oral Tablet 20 MEQ 40 MEQ PO ×2 (08:35→16:10)
[2024-05-18] MEDS: busPIRone 5 MG Tablet 20 MG PO (08:35)
[2024-05-18] MEDS: predniSONE 20 MG Tablet 40 MG PO (08:35)
[2024-05-18] MEDS: Enoxaparin 40 MG/0.4 ML Syringe SC (08:36)
[2024-05-18] MEDS: Polyethylene Glycol 3350 17 GM PACKET PO (08:36)
[2024-05-18] MEDS: Carvedilol 25 MG Tablet PO ×2 (08:36→16:10)
[2024-05-18] MEDS: Isosorbide Mononitrate 30 MG Tablet PO (08:36)
[2024-05-18] MEDS: Aspirin E.C. 81 MG Tablet PO (08:36)
[2024-05-18] MEDS: Menthol/Lanolin/Calamine/Znox 113 GM Tube 1 APPLIC TOPICAL (08:37)
[2024-05-18] MEDS: guaiFENesin 1,200 MG Tablet 1200 MG PO (08:37)
[2024-05-18] MEDS: Insulin Glargine-YFGN 100 UNIT/ML Pen 30 UNIT SC (08:37)
[2024-05-18 11:48] LABS: Bedside Glucose 255 mg/dL (74-106)
--- NOTE | 2024-05-18 14:55 | PN.HOSP_ITS ---
Reason for Visit Reason for Visit: Diagnoses Obstructive sleep apnea (adult) (pediatric) (05/06/24) Acute respiratory failure with hypoxia (05/06/24) Acute respiratory failure with hypercapnia (05/06/24) Dorsalgia, unspecified (05/06/24) Other fracture of T7-T8 thoracic vertebra, initial encounter for closed fracture (05/06/24) Unspecified fracture of T7-T8 vertebra, initial encounter for closed fracture (05/06/24) Unspecified fall, initial encounter (05/06/24) Objective Data Objective Data Vital Signs: Vital Signs Temp Pulse Resp BP Pulse Ox O2 Del Method O2 Flow Rate 98.4 F 75 18 119/77 97 Nasal Cannula 3 05/18/24 08:35 05/18/24 12:47 05/18/24 12:47 05/18/24 08:35 05/18/24 08:35 05/18/24 08:35 05/18/24 08:35 FiO2 35 05/18/24 01:45 Oxygen Flow Rate (L/min) 3 Oxygen Delivery Method Nasal Cannula Weight: 227 lb 1.218 oz Body Mass Index (BMI) 34.5 Intake & Output: Intake and Output for Last 24 Hours 05/16/24 05/17/24 05/18/24 23:59 23:59 23:59 Intake Total 1300 / 1300 817 / 817 240 / 240 Output Total 1100 / 1100 1050 / 1050 Balance 200 / 200 -233 / -233 240 / 240 Lab / Micro Data 05/18/24 06:43 05/18/24 06:43 Labs: Laboratory Results - last 24 hr 05/17/24 16:18: POC Glucose 380 H 05/17/24 22:24: POC Glucose 377 H 05/18/24 06:34: POC Glucose 209 H 05/18/24 06:43: WBC 11.7 H, RBC 4.96, Hgb 11.6 L, Hct 38.3 L, MCV 77.2 L, MCH 23.4 L, MCHC 30.3 L, RDW Std Deviation 46.6 H, RDW Coeff of Jeanette 17.2 H, Plt Count 427, MPV 10.6, Immature Gran % (Auto) 0.500, Neut % (Auto) 74.4 H, Lymph % (Auto) 14.8 L, [place] % (Auto) 9.0, Eos % (Auto) 1.0, Baso % (Auto) 0.3, Absolute Neuts (auto) 8.7 H, Absolute Lymphs (auto) 1.73, Nucleated RBC % 0, Sodium 134 L , Potassium 3.7, Chloride 98, Carbon Dioxide 32.0, Anion Gap 4 L, BUN 17, Creatinine 0.81, Estim Creat Clear Calc 95.89, Est GFR (MDRD) Af Amer 120, Est GFR (MDRD) Non-Af 99, BUN/Creatinine Ratio 20.9 H, Glucose 207 H, Calcium 9.1 05/18/24 11:21: POC Glucose 255 H Micro: Microbiology 05/06/24 18:25 Blood Culture (Wb) - Anticubital Left Blood Culture - Final No growth in 5 days. 05/06/24 18:20 Urine Catheter - Perez Urine Culture - Final Culture exhibits no growth. 05/06/24 12:58 Sputum, Induced/Lukens Gram Stain - Final 05/06/24 12:58 Sputum, Induced/Lukens Respiratory Culture - Final Staphylococcus aureus Physical Exam Narrative Seen and examined. Patient was admitted with hypercapnic respiratory failure and was emergently intubated, extubated and transferred to PCU from ICU. Uses BiPAP during the night and naps. Patient feels comfortable. No acute change. Physical exam General: Alert, Oriented x3, Cooperative HEENT: Atraumatic, PERRLA, EOMI, Normocephalic Oral: No Gingival or Mucosal Lesions/ Ulcerations Neck: Supple, No JVD, Negative Carotid Bruits Chest wall/Lungs: Air entry severely diminished in bilateral lung bases. Lungs mostly clear Cardiovascular: Regular rate, Regular Rhythm, Normal S1, Normal S2, No M/G/R Abdomen: Bowel Sounds Present, Soft, Non Tender, Non-Distended : Perez catheter. 250 mL since morning. No renal angle tenderness. No suprapubic tenderness. Extremities: No edema, Capillary Refill Less than 3 Seconds Skin: No rashes, No breakdown Musculoskeletal: No Tenderness to Palpation of Joints or Extremities Neurological: Cranial nerves II-XII grossly intact, DTR 2+/4. No acute focal neurological deficit. Psych/Mental Status: Normal Affect, Appropriate. Assessment & Plan Assessment/Plan (1) Acute respiratory failure with hypoxia and hypercarbia: PLAN: Plan 73-year-old gentleman was admitted with a chief complaint of fall while trying to get blanket in the ED tripped on some object on the ground. Patient struck the back of his head neck and upper back on the stone. No reported LOC. Initially patient was admitted [facility] floor 3 but was found very lethargic and confused concern for acute metabolic encephalopathy due to hypercapnia. ABG showed pH 7.11, pCO2 109.8. Patient was transferred to ICU Acute respiratory failure w hypoxia and hypercapnia * 2/2 AE asthma with Staph pneumonia, KRISTI * intubated on the . Extubated 05/12 * on prednisone 40 mg daily. 05/17: On Advair. Albuterol inhaler as needed. 05/18: Respiratory status is better. No shortness of breath. Patient is weak and needs rehab S. aureus pneumonia * MSSA, but resistant to tetracycline, TMP/SMX. * Vancomycin for 7-day course completed T8 vertebral fracture * Patient noted to have T8 anterior inferior vertebral body corner extension fracture with a 2 mm displacement. No evidence of posterior element fracture or displacement. * Conservative measures. Pain control as able. Dysphagia * Past 2 days patient has vomited after taking his pills. Seen by speech therapy who is recommending pur?ed textures and thin liquids. Also recommending a modified barium swallow to make further recommendations. * Modified barium swallow not done yet. Encephalopathy, metabolic * likely CO2 narcosis but complicated by ICU psychosis, pneumonia, may also be due to scopolamine patch (which has been DC'd), * DC pramipexole * started on dexmedetomidine gtt, but since discontinued * improved with BiPAP Electrolyte abnormality: hypokalemia, K2.9. Phosphorus 2.0. Potassium phosphate replaced. Chronic conditions * Heart failure preserved ejection fraction: Compensated * Diabetes mellitus type 2: Uncontrolled. Sliding scale insulin. Glargine 30 daily twice daily. Takes NPH of 56 and 44 units at home. VTE prophylaxis with enoxaparin Disposition: Eventually patient will need to go to a [facility] facility. Waiting pre-CERT Tr Charges/Coding Visit Charges Inpatient E&M: 51384 Subs Hosp L2
--- NOTE | 2024-05-18 16:04 | CASEMGMT ---
Patient was approved for [facility]. SW notified physician and he will send patient today. Plan: d/c to [facility] under skilled level of care. Melanie VALDEZ
[2024-05-18 16:23] LABS: Bedside Glucose 362 mg/dL (74-106)
--- NOTE | 2024-05-18 16:26 | CASEMGMT ---
SW spoke with patient and his family will take him to [facility]. SW called patient's granddaughter Jennifer and she confirmed she or someone in the family can take patient. He has a portable O2 tank in the car. Jennifer asked if someone could call her when patient is ready. REGAN obtained fax numbers for orders as SW will be leaving for the day. REGAN completed a PASRR in [employer] system. Plan: d/c to [facility] under skilled level of care. Family will transport patient to [facility]. Melanie VALDEZ
--- NOTE | 2024-05-18 16:53 | PCM.TXEXTCAR ---
Diet Diet Order/Speech Therapy: 05/16/24 09:49 Diet: Transitional Food consistency:: Soft & Bite Sized Liquid Consistency:: Regular/Thin Dietary Modifications:: Consistent Carbohydrate Type of Dietary Supplement:: Magic Cup Lunch Diet Comments: meds whole with puree; downgrade to crush if not tolerating; 8oz ES+HP w/ B Routine Orders/Code Status Suppository Type: Dulcolax 10mg Suppository Frequency: Daily PRN Wound(s) left lower leg: Wound Type: healed stasis ulcer Dressing Change: dry dressing right lower leg: Wound Type: Stasis Ulcer left upper back: Wound Type: Abrasion Therapies Extremity Affected:: Bilateral Lower Physical Therapy: Eval and Treat Occupational Therapy: Eval and Treat Speech Therapy: Eval and Treat Problem/Diagnosis (1) Acute respiratory failure with hypoxia and hypercarbia: Status: Acute Code(s): J96.01 - Acute respiratory failure with hypoxia; J96.02 - Acute respiratory failure with hypercapnia Plan 73-year-old gentleman was admitted with a chief complaint of fall while trying to get blanket in the ED tripped on some object on the ground. Patient struck the back of his head neck and upper back on the stone. No reported LOC. Initially patient was admitted Medr floor 3 but was found very lethargic and confused concern for acute metabolic encephalopathy due to hypercapnia. ABG showed pH 7.11, pCO2 109.8. Patient was transferred to ICU Acute respiratory failure w hypoxia and hypercapnia / AE asthma with Staph pneumonia, KRISTI intubated on the . Extubated 05/12 on prednisone 40 mg daily. 05/17: On Advair. Albuterol inhaler as needed. 05/18: Respiratory status is better. No shortness of breath. Patient is weak and needs rehab S. aureus pneumonia MSSA, but resistant to tetracycline, TMP/SMX. Vancomycin for 7-day course completed T8 vertebral fracture Patient noted to have T8 anterior inferior vertebral body corner extension fracture with a 2 mm displacement. No evidence of posterior element fracture or displacement. Conservative measures. Pain control as able. Dysphagia Past 2 days patient has vomited after taking his pills. Seen by speech therapy who is recommending pur?ed textures and thin liquids. Also recommending a modified barium swallow to make further recommendations. Modified barium swallow not done yet. Encephalopathy, metabolic likely CO2 narcosis but complicated by ICU psychosis, pneumonia, may also be due to scopolamine patch (which has been DC'd), DC pramipexole started on dexmedetomidine gtt, but since discontinued improved with BiPAP Electrolyte abnormality: hypokalemia, K2.9. Phosphorus 2.0. Potassium phosphate replaced. Chronic conditions Heart failure preserved ejection fraction: Compensated Diabetes mellitus type 2: Uncontrolled. Sliding scale insulin. Glargine 30 daily twice daily. Takes NPH of 56 and 44 units at home. VTE prophylaxis with enoxaparin Disposition: Eventually patient will need to go to a nursing home facility. Waiting pre-CERT Tr Allergies/Procedures Done in Hospital Allergies Penicillins Allergy (Severe, Verified 05/06/24 02:58) Anaphylaxis quinine sulfate (From Quine) Allergy (Severe, Verified 05/06/24 02:58) passed out benzocaine (From Cetacaine) Allergy (Verified 05/06/24 02:58) Swelling butamben (From Cetacaine) Allergy (Verified 05/06/24 02:58) Swelling ciprofloxacin HCl (From Cipro) Allergy (Verified 05/06/24 02:58) Hives TONGUE SWELLS clarithromycin (From Biaxin) Allergy (Verified 05/06/24 02:58) Swelling exenatide (From Byetta) Allergy (Verified 05/06/24 02:58) Rash folic acid (From Proferrin-Forte) Allergy (Verified 05/06/24 02:58) Rash hyoscyamine sulfate (From Levsin) Allergy (Verified 05/06/24 02:58) Rash iron heme polypeptide (From Proferrin-Forte) Allergy (Verified 05/06/24 02:58) tongue swelling naproxen (From Naprosyn) Allergy (Verified 05/06/24 02:58) Rash tetracaine (From Cetacaine) Allergy (Verified 05/06/24 02:58) throat swelled shut venlafaxine HCl (From Effexor) Allergy (Verified 05/06/24 02:58) tongue swelling ezetimibe (From Zetia) Adverse Reaction (Severe, Verified 05/06/24 02:58) Myalgias, diarrhea mold Adverse Reaction (Severe, Verified 05/06/24 02:58) PT UNSURE OF REACTION FROM ASPERGILLUS niacin (From Niaspan Extended-Release) Adverse Reaction (Severe, Verified 05/06/24 02:58) PT UNSURE OF REACTION procainamide Adverse Reaction (Severe, Verified 05/06/24 02:58) Anaphylactic/Resp. Distress atorvastatin calcium (From Lipitor) Adverse Reaction (Intermediate, Verified 05/06/24 02:58) Mylagias rosuvastatin calcium (From Crestor) Adverse Reaction (Intermediate, Verified 05/06/24 02:58) Myalgias diphenhydramine HCl (From Benadryl) Adverse Reaction (Verified 05/06/24 02:58) Restlessness Type of Care/Length of Stay Estimated LOS: Convalescent Care Less Than 30 days Type of Care Needed: Skilled Rehab Potential: Good Prognosis: Good Additional Orders/Day of Discharge Day of Discharge: 05/18/24 Dietary and Speech Recommendations Dietitian Recommendations/Changes: Recommend diet as tolerated to 1800 calorie, CHO Controlled/Cardiac diet with consistency/texture as per [facility] [employer]. Will add 240mL ensure plus HP w/ breakfast and magic cup w/ lunch tray. Adjust ONS as needed to optimize PO at meals. Discharge Plan Admission Admit Date/Time: 05/06/24 11:32 Primary Reason for Your Visit: copd exacerbation Attending Provider: Stewart Dukes Primary Care Provider: Maya Pradhan Consulting Providers: Amaya Pringle; Aldo Jimenez; Chema Zambrano Discharge Orders/Prescriptions Prescriptions: New guaifenesin [Mucus Relief ER] 1,200 mg Tablet Extended Release 12hr 1,200 mg PO BID 7 Days Qty: 14 0RF insulin lispro [Humalog KwikPen Insulin] 100 unit/mL Insulin Pen See Protocol subcut ACHS Qty: 0 0RF Protocol: 4. Sliding Scale Insulin High-Med Dosing Condition: 150-199 mg/dl = 2 units Condition: 200-259 mg/dl = 4 units Condition: 260-324 mg/dl = 6 units Condition: 325-374 mg/dl = 8 units Condition: 375-409 mg/dl = 10 units Condition: 410-449 mg/dl = 11 units Condition: Greater than 449 call physician Protocol Text: Suggested for: - Patients on Total Daily Insulin Dose of 56-80 units - Patient who are known to be insulin resistant or septic HIGH MEDIUM DOSING ALGORITHM prednisone 20 mg Tablet 40 mg PO BREAKFAST 5 Days Qty: 0 0RF tamsulosin 0.4 mg Capsule 0.4 mg PO DAILY@1700 Qty: 0 0RF Continued buspirone 10 mg tablet 20 mg PO BID vitamin B complex Tablet 1 tab PO DAILY nitroglycerin 0.4 mg tablet, sublingual 0.4 mg SUBLINGUAL Q5M PRN (Reason: Angina pain) Qty: 25 3RF omeprazole 40 mg capsule,delayed release(DR/EC) 40 mg PO BID glyburide 1.25 mg tablet 1.25 mg PO BID carvedilol 25 mg tablet 25 mg PO BID Qty: 180 3RF Rx Instructions: must administer with a meal/food clotrimazole-betamethasone 1-0.05 % cream 1 applic topical BID 28 Days Qty: 45 1RF metformin 1,000 MG tablet 1,000 mg PO BIDCM montelukast 10 MG tablet 10 mg PO QHS pramipexole 1 mg tablet 2 mg PO QHS Patient Comments: 1 mg PO 2 tablets by mouth at bedtime Rx Instructions: 1 mg PO 2 tablets by mouth at bedtime fluticasone propionate 50 mcg/actuation spray,suspension 1 spray INTRANASAL DAILY PRN (Reason: nasal spray) acetaminophen 325 MG tablet 325 - 650 mg PO Q6H PRN PRN (Reason: Pain) 0RF aspirin 81 MG tablet 81 mg PO DAILY@0800 Qty: 30 0RF magnesium oxide 400 MG tablet 400 mg PO DAILY coenzyme Q10 100 MG capsule 100 mg PO DAILY cholecalciferol (vitamin D3) 50 mcg (2,000 unit) capsule 2,000 unit PO DAILY furosemide 40 mg tablet 80 mg PO DAILY Rx Instructions: takes 80mg in the am and 40mg in the afternoon alprazolam 0.25 mg tablet 0.25 mg PO DAILY PRN (Reason: anxiety) 2 Days Qty: 7 0RF Patient Comments: for anxiety isosorbide mononitrate 30 mg tablet extended release 24 hr 30 mg PO DAILY Qty: 90 3RF clopidogrel 75 mg tablet 75 mg PO DAILY Qty: 90 3RF fluticasone propion-salmeterol [Wixela Inhub] 500-50 mcg/dose blister with device 1 inh inhalation BID Qty: 60 3RF albuterol sulfate [Ventolin HFA] 90 mcg/actuation HFA aerosol inhaler 2 puff INHALATION Q4H PRN (Reason: shortness of breath or wheezing) Qty: 18 6RF pravastatin 40 mg tablet 40 mg PO DAILY Qty: 90 3RF Changed insulin NPH isoph U-100 human 100 unit/mL suspension See Rx Instructions .ROUTE .COMPLEX 3 Days Qty: 0 0RF Rx Instructions: subcutaneously; 50 units in am, 40 units in hs; Hold if glucose less than 130 mg/dl Discontinued doxycycline monohydrate 100 mg tablet 100 mg PO BID 10 Days Qty: 20 0RF Referrals / Follow Up: Maya Pradhan DO [Primary Care Provider] -
--- NOTE | 2024-05-18 17:03 | DS.PCM_ITS ---
Providers Date of Admission: 05/06/24 Date of Discharge: 05/18/24 Primary Care Physician: Dr. Maya Pradhan, DO Consultations 05/06/24 08:50 Consult: Orthopedics Routine Consulting Provider: Aldo Jimenez Reason for Consult: thoracic spine fracture EMERGENT Consult: No MD Notified: Yes Date Notified: 05/06/24 Time Notified: 07:27 Method of Notification: ED Physician Initiated 05/06/24 10:51 Consult: Onc/Wound/asphalt screed operator Routine Comment: Reason for Consult:: b/l leg wounds 05/06/24 11:16 Consult: Veterinary Medicine Scientist / Pulmonary Medicine Routine Consulting Provider: Intensivists/Pulmonary Med Reason for Consult: SOB, on bipap EMERGENT Consult: Yes MD Notified: Yes Date Notified: 05/06/24 Time Notified: 11:17 Method of Notification: Answering Service Reason For Visit: MECHANICAL FALL, T8 FRACTURE Diagnosis Discharge Diagnosis (1) Acute respiratory failure with hypoxia and hypercarbia: Status: Acute Code(s): J96.01 - Acute respiratory failure with hypoxia; J96.02 - Acute respiratory failure with hypercapnia Plan 73-year-old gentleman was admitted with a chief complaint of fall while trying to get blanket in the ED tripped on some object on the ground. Patient struck the back of his head neck and upper back on the stone. No reported LOC. Initially patient was admitted Medr floor 3 but was found very lethargic and confused concern for acute metabolic encephalopathy due to hypercapnia. ABG showed pH 7.11, pCO2 109.8. Patient was transferred to ICU Acute respiratory failure w hypoxia and hypercapnia * 2/2 AE asthma with Staph pneumonia, KRISTI * intubated on the . Extubated 05/12 * on prednisone 40 mg daily. 05/17: On Advair. Albuterol inhaler as needed. 05/18: Respiratory status is better. No shortness of breath. Patient is weak and needs rehab. Patient got the pre-CERT late afternoon about 4 PM therefore discharged. Mild hypokalemia corrected. S. aureus pneumonia * MSSA, but resistant to tetracycline, TMP/SMX. * Vancomycin for 7-day course completed T8 vertebral fracture * Patient noted to have T8 anterior inferior vertebral body corner extension fracture with a 2 mm displacement. No evidence of posterior element fracture or displacement. * Conservative measures. Pain control as able. Dysphagia * Past 2 days patient has vomited after taking his pills. Seen by speech therapy who is recommending pur?ed textures and thin liquids. Also recommending a modified barium swallow to make further recommendations. * Modified barium swallow not done yet. Encephalopathy, metabolic * likely CO2 narcosis but complicated by ICU psychosis, pneumonia, may also be due to scopolamine patch (which has been DC'd), * DC pramipexole * started on dexmedetomidine gtt, but since discontinued * improved with BiPAP Electrolyte abnormality: hypokalemia, K2.9. Phosphorus 2.0. Potassium phosphate replaced. Chronic conditions * Heart failure preserved ejection fraction: Compensated * Diabetes mellitus type 2: Uncontrolled. Sliding scale insulin. Glargine 30 daily twice daily. Takes NPH of 56 and 44 units at home. VTE prophylaxis with enoxaparin Discharge medication reconciliation done. Discharge follow-up instructions completed. Discharge process discussed with the patient and all questions were answered to patient's satisfaction. Follow with PCP in 1 to 2 weeks Total time spent, exact 35 minutes on discharge meds reconciliation, examination, coordination of care with nurses and ancillary staff, review of imaging and blood test and discussion with the patient on follow-up instructions. Medications at Discharge Home Medications metformin 1,000 mg tablet 1,000 mg PO BIDCM diabetes 01/17/16 montelukast 10 mg tablet 10 mg PO QHS allergies 01/17/16 acetaminophen 325 mg tablet 325 - 650 mg (1 - 2 x 325 mg) PO Q6H PRN PRN Pain 07/14/17 aspirin 81 mg tablet,delayed release 81 mg PO DAILY@0800 #30 tabs 07/14/17 pramipexole 1 mg tablet 2 mg PO QHS headache 05/07/18 coenzyme Q10 100 mg capsule 100 mg PO DAILY supplement 12/08/18 magnesium oxide 400 mg PO DAILY supplement 12/08/18 fluticasone propionate 50 mcg/actuation nasal spray,suspension 1 spray intranasal DAILY PRN nasal spray 04/05/20 nitroglycerin 0.4 mg sublingual tablet 0.4 mg sublingual Q5M PRN Angina pain #25 tabs 11/29/21 vitamin B complex 1 tab PO DAILY 03/14/22 isosorbide mononitrate 30 mg tablet,extended release 24 hr 30 mg PO DAILY #90 tabs 07/05/23 buspirone 10 mg tablet 20 mg PO BID Anxiety 08/20/23 clopidogrel 75 mg tablet 75 mg PO DAILY #90 tabs 10/26/23 albuterol sulfate 90 mcg/actuation aerosol inhaler (Ventolin HFA) 2 puff inhalation Q4H PRN shortness of breath or wheezing #18 grams 10/28/23 fluticasone 500 mcg-salmeterol 50 mcg/dose blistr powdr for inhalation (Wixela Inhub) 1 inh inhalation BID #60 ea 10/28/23 clotrimazole-betamethasone 1 %-0.05 % topical cream 1 applic topical BID 4 weeks #45 grams 11/17/23 carvedilol 25 mg tablet 25 mg PO BID #180 tabs 12/07/23 cholecalciferol (vitamin D3) 50 mcg (2,000 unit) capsule 2,000 unit PO DAILY supplement 12/07/23 glyburide 1.25 mg tablet 1.25 mg PO BID 12/07/23 omeprazole 40 mg capsule,delayed release 40 mg PO BID 12/07/23 pravastatin 40 mg tablet 40 mg PO DAILY #90 TABLETS 02/09/24 furosemide 40 mg tablet 80 mg PO DAILY 04/01/24 alprazolam 0.25 mg tablet 0.25 mg PO DAILY PRN anxiety 2 days #7 tabs 05/18/24 guaifenesin 1,200 mg tablet, extended release 12 hr (Mucus Relief ER) 1,200 mg PO BID 7 days #14 tabs 05/18/24 insulin NPH isoph U-100 human 100 unit/mL subcutaneous suspension See Rx Instructions .Route .COMPLEX diabetes 3 days #0 mL 05/18/24 insulin lispro 100 unit/mL subcutaneous pen (Humalog KwikPen (U-100) Insulin) See Protocol subcut ACHS #0 mL 05/18/24 prednisone 20 mg tablet 40 mg (2 x 20 mg) PO BREAKFAST 5 days #0 tabs 05/18/24 tamsulosin 0.4 mg capsule 0.4 mg PO DAILY@1700 #0 caps 05/18/24 Physical Exam Narrative Please see exam finding on the progress note of the same date. Weight / BMI Weight Weight: 227 lb 1.218 oz Body Mass Index (BMI) 34.5 ABG / Lab / Microbiology Data 05/18/24 06:43 05/18/24 06:43 Laboratory: Laboratory Results - last 24 hr 05/17/24 22:24: POC Glucose 377 H 05/18/24 06:34: POC Glucose 209 H 05/18/24 06:43: WBC 11.7 H, RBC 4.96, Hgb 11.6 L, Hct 38.3 L, MCV 77.2 L, MCH 23.4 L, MCHC 30.3 L, RDW Std Deviation 46.6 H, RDW Coeff of Jeanette 17.2 H, Plt Count 427, MPV 10.6, Immature Gran % (Auto) 0.500, Neut % (Auto) 74.4 H, Lymph % (Auto) 14.8 L, Reagan % (Auto) 9.0, Eos % (Auto) 1.0, Baso % (Auto) 0.3, Absolute Neuts (auto) 8.7 H, Absolute Lymphs (auto) 1.73, Nucleated RBC % 0, Sodium 134 L , Potassium 3.7, Chloride 98, Carbon Dioxide 32.0, Anion Gap 4 L, BUN 17, Creatinine 0.81, Estim Creat Clear Calc 95.89, Est GFR (MDRD) Af Amer 120, Est GFR (MDRD) Non-Af 99, BUN/Creatinine Ratio 20.9 H, Glucose 207 H, Calcium 9.1 05/18/24 11:21: POC Glucose 255 H 05/18/24 15:57: POC Glucose 362 H Microbiology: Microbiology 05/06/24 18:25 Blood Culture (Wb) - Anticubital Left Blood Culture - Final No growth in 5 days. 05/06/24 18:20 Urine Catheter - Perez Urine Culture - Final Culture exhibits no growth. 05/06/24 12:58 Sputum, Induced/Lukens Gram Stain - Final 05/06/24 12:58 Sputum, Induced/Lukens Respiratory Culture - Final Staphylococcus aureus Meaningful Use Info Meaningful Use Meaningful Use Diagnoses (Choose all that apply): None applicable Ischemic Stroke Statin Dosing Therapy Reference: STATIN DOSE THERAPY REFERENCE: * Patients > 75 years receive moderate or high dose statin therapy. * Patients 75 years or YOUNGER should receive HIGH intensity statin dose unless contraindicated. You will be required to document reason for non-treatment if statin daily dose does not meet guidelines. HIGH DOSE STATIN THERAPY DAILY Atorvastatin > than or = to 40 mg Rosuvastatin > than or = to 20 mg Amlodipine + Atorvastatin > than or = to 2.5/40 mg Ezetimibe + Simvastatin 10/80 mg Simvastatin 80mg Discharge Plan Admission Admit Date/Time: 05/06/24 11:32 Primary Reason for Your Visit: copd exacerbation Attending Provider: Stewart Dukes Primary Care Provider: Maya Pradhan Consulting Providers: Amaya Pringle; Aldo Jimenez; Chema Zambrano Discharge Orders/Prescriptions Prescriptions: New guaifenesin [Mucus Relief ER] 1,200 mg Tablet Extended Release 12hr 1,200 mg PO BID 7 Days Qty: 14 0RF insulin lispro [Humalog KwikPen Insulin] 100 unit/mL Insulin Pen See Protocol subcut ACHS Qty: 0 0RF Protocol: 4. Sliding Scale Insulin High-Med Dosing Condition: 150-199 mg/dl = 2 units Condition: 200-259 mg/dl = 4 units Condition: 260-324 mg/dl = 6 units Condition: 325-374 mg/dl = 8 units Condition: 375-409 mg/dl = 10 units Condition: 410-449 mg/dl = 11 units Condition: Greater than 449 call physician Protocol Text: Suggested for: - Patients on Total Daily Insulin Dose of 56-80 units - Patient who are known to be insulin resistant or septic HIGH MEDIUM DOSING ALGORITHM prednisone 20 mg Tablet 40 mg PO BREAKFAST 5 Days Qty: 0 0RF tamsulosin 0.4 mg Capsule 0.4 mg PO DAILY@1700 Qty: 0 0RF Continued buspirone 10 mg tablet 20 mg PO BID vitamin B complex Tablet 1 tab PO DAILY nitroglycerin 0.4 mg tablet, sublingual 0.4 mg SUBLINGUAL Q5M PRN (Reason: Angina pain) Qty: 25 3RF omeprazole 40 mg capsule,delayed release(DR/EC) 40 mg PO BID glyburide 1.25 mg tablet 1.25 mg PO BID carvedilol 25 mg tablet 25 mg PO BID Qty: 180 3RF Rx Instructions: must administer with a meal/food clotrimazole-betamethasone 1-0.05 % cream 1 applic topical BID 28 Days Qty: 45 1RF metformin 1,000 MG tablet 1,000 mg PO BIDCM montelukast 10 MG tablet 10 mg PO QHS pramipexole 1 mg tablet 2 mg PO QHS Patient Comments: 1 mg PO 2 tablets by mouth at bedtime Rx Instructions: 1 mg PO 2 tablets by mouth at bedtime fluticasone propionate 50 mcg/actuation spray,suspension 1 spray INTRANASAL DAILY PRN (Reason: nasal spray) acetaminophen 325 MG tablet 325 - 650 mg PO Q6H PRN PRN (Reason: Pain) 0RF aspirin 81 MG tablet 81 mg PO DAILY@0800 Qty: 30 0RF magnesium oxide 400 MG tablet 400 mg PO DAILY coenzyme Q10 100 MG capsule 100 mg PO DAILY cholecalciferol (vitamin D3) 50 mcg (2,000 unit) capsule 2,000 unit PO DAILY furosemide 40 mg tablet 80 mg PO DAILY Rx Instructions: takes 80mg in the am and 40mg in the afternoon alprazolam 0.25 mg tablet 0.25 mg PO DAILY PRN (Reason: anxiety) 2 Days Qty: 7 0RF Patient Comments: for anxiety isosorbide mononitrate 30 mg tablet extended release 24 hr 30 mg PO DAILY Qty: 90 3RF clopidogrel 75 mg tablet 75 mg PO DAILY Qty: 90 3RF fluticasone propion-salmeterol [Wixela Inhub] 500-50 mcg/dose blister with device 1 inh inhalation BID Qty: 60 3RF albuterol sulfate [Ventolin HFA] 90 mcg/actuation HFA aerosol inhaler 2 puff INHALATION Q4H PRN (Reason: shortness of breath or wheezing) Qty: 18 6RF pravastatin 40 mg tablet 40 mg PO DAILY Qty: 90 3RF Changed insulin NPH isoph U-100 human 100 unit/mL suspension See Rx Instructions .ROUTE .COMPLEX 3 Days Qty: 0 0RF Rx Instructions: subcutaneously; 50 units in am, 40 units in hs; Hold if glucose less than 130 mg/dl Discontinued doxycycline monohydrate 100 mg tablet 100 mg PO BID 10 Days Qty: 20 0RF Referrals / Follow Up: Aldo Jimenez MD [Med Staff - Active Staff] - Within 1 Month Maya Pradhan DO [Primary Care Provider] - Aretha Vasquez NP, [facility] [Med Staff - Adv Practice Prof] - Within 2 Weeks Disposition Disposition (needs filled in before D/C Order can be placed): [facility] Facility Charges/Coding Addendum Addendum: Cancel the billing charge the progress note on the same day, today. Visit Charges Inpatient E&M: 03254 Disch Hosp >30min
[2024-05-18] MEDS: Tamsulosin HCl 0.4 MG Capsule PO (17:08)
--- NOTE | 2024-05-18 18:00 | NURSING ---
Report called to [facility]. Patient granddaughter Jennifer to transport patient to [facility].
== END 2024-05-18 18:40 | disposition skilled nursing facility (03) | DRG 207 ==
LOC: ED 06:53 → MS3 08:12 → ICU 11:48 → MS3 05-13 17:20 → PCU 05-16 07:33 → MS3 05-18 11:32 → ICU 05-18 11:32 → PCU 05-18 11:36
PROVIDERS: Internal Medicine; Internal Medicine Critical Care Medicine; Admitting Provider Student in an Organized Health Care Education/Training Program; Emergency Provider Emergency Medicine; PCP Family Medicine; Visit Provider Internal Medicine
DX: J96.22 Acute and chronic respiratory failure with hypercapnia (principal); G93.41 Metabolic encephalopathy; J15.211 Pneumonia due to Methicillin susceptible Staphylococcus aureus; S22.068A Other fracture of T7-T8 thoracic vertebra, initial encounter for closed fracture; J45.901 Unspecified asthma with (acute) exacerbation; L97.322 Non-pressure chronic ulcer of left ankle with fat layer exposed; E87.1 Hypo-osmolality and hyponatremia; J44.0 Chronic obstructive pulmonary disease with (acute) lower respiratory infection; I50.32 Chronic diastolic (congestive) heart failure; Z68.41 Body mass index [BMI] 40.0-44.9, adult; J98.11 Atelectasis; E11.622 Type 2 diabetes mellitus with other skin ulcer; S09.90XA Unspecified injury of head, initial encounter; I11.0 Hypertensive heart disease with heart failure; K76.0 Fatty (change of) liver, not elsewhere classified; G25.81 Restless legs syndrome; F32.A Depression, unspecified; J96.11 Chronic respiratory failure with hypoxia; F41.9 Anxiety disorder, unspecified; E78.5 Hyperlipidemia, unspecified; S16.1XXA Strain of muscle, fascia and tendon at neck level, initial encounter; G47.33 Obstructive sleep apnea (adult) (pediatric); E87.5 Hyperkalemia; I25.10 Atherosclerotic heart disease of native coronary artery without angina pectoris; Z79.4 Long term (current) use of insulin; H53.2 Diplopia; E87.6 Hypokalemia; W01.198A Fall on same level from slipping, tripping and stumbling with subsequent striking against other object, initial encounter; I95.2 Hypotension due to drugs; E66.9 Obesity, unspecified; Z95.5 Presence of coronary angioplasty implant and graft; Z79.51 Long term (current) use of inhaled steroids; Z79.02 Long term (current) use of antithrombotics/antiplatelets; Z79.82 Long term (current) use of aspirin; R53.81 Other malaise; Z79.84 Long term (current) use of oral hypoglycemic drugs; Z99.81 Dependence on supplemental oxygen; Z79.899 Other long term (current) drug therapy; Z91.199 Patient's noncompliance with other medical treatment and regimen due to unspecified reason; T50.905A Adverse effect of unspecified drugs, medicaments and biological substances, initial encounter; R13.10 Dysphagia, unspecified
CPT/HCPCS: 31500; 31720; 36415; 36600; 70450; 71045; 71250; 72125; 74018; 74177; 80048; 80053; 80202; 81001; 82550; 82803; 82962; 83735; 83880; 84100; 84478; 84484; 85025; 87040; 87070; 87075; 87077; 87086; 87186; 87205; 92526; 92610; 93005; 93306; 94002; 94003; 94640; 94660; 94762; 97110; 97162; 97164; 97166; 97168; 97530; 97535; 97802; 97803; 99252; 99284; J2185; J7030; J7040; J7050; Q9957; Q9967; A4216; C8929; G0463; J1940; J2405

== ENCOUNTER 2024-05-13 08:00 | Outpatient (RCR) | payer MEDICARE, SELFPAY ==
[2024-04-04 08:21] VITALS: BMI 38.2
[2024-04-14 00:37] VITALS: BP 126/56; BP 130/68
--- NOTE | 2024-05-06 07:17 | PCM.CR.ITP ---
Exercise - Initial Assessment Physician Prescribed Exercise Modalities: SciFit Stepper and SciFit Pro-II Ergometer Nutrition - Initial Assessment Weight Mgt (Other Care) Height: 5 ft 8 in Weight:: 252 lb BMI: 38.2 Psychosocial - Initial Assess Target Goals Target Goals Patient Health Questionnaire PHQ-9 Screening 90-Day Re-eval Assessment: 1. Little interest or pleasure in doing things: Several days 2. Feeling down, depressed, or hopeless: Several days 3. Trouble falling or staying asleep, or sleeping too much: Several days 4. Feeling tired or having little energy: More than half the days 5. Poor appetite or overeating: Several days 6. Feeling bad about yourself -- or that you are a failure or have let yourself or your family down: Several days 7. Trouble concentrating on things, such as reading the newspaper or watching television: Several days 8. Moving or speaking so slowly that other people could have noticed. Or the opposite - being so fidgety or restless that you have been moving around a lot more than usual: Not at all 9. Thoughts that you would be better off , or of hurting yourself in some way: Not at all How difficult have these problems made it for you to do your work, take care of things at home, or get along with other people?: Somewhat difficult Total Score: 8 Self-Efficacy 6-Item Scale 90-Day Re-eval Assessment: We would like to know how confident you are in doing certain activities. Please select your confidence level for: Fatigue Select Number: 3 Physical Discomfort or Pain Select Number: 3 Emotional Distress Select Number: 4 Other Symptoms or Health Problems Select Number: 4 Different Tasks and Activities Select Number: 5 Medication Select Number: 7 Total Score:: 4 Nutrition Survey Nutrition Survey Instructions Scoring Instructions Exercise - 30-day Assessment Physician Prescribed Exercise Modalities: SciFit Stepper and SciFit Pro-II Ergometer Exercise - 60-day Assessment Physician Prescribed Exercise Modalities: SciFit Stepper and SciFit Pro-II Ergometer Exercise - 90-day Assessment Visit Date of Eval: 05/06/24 Session #:: 25 Comments:: Pt has not attended CR since 04/27/24 due to severe leg swelling. Physician Prescribed Exercise Modalities: SciFit Stepper and SciFit Pro-II Ergometer Frequency: 3x/week for 12 weeks [36 sessions] Intensity: 60-80% of age predicted maximum heart rate reserve Duration: 30 - 45 minutes Current METSs:: 3.5 Target Heart Rate:: 96-112 Current RPE:: 12-13 Maximum Excercise HR:: 99 Resting Blood Pressure: 122/64 Maximum Exercise Blood Pressure: 130/72 EKG Type: NSR with BBB with rare PAC/PVC Outcomes & Goals Goals:: Verbalizes understanding of THR, RPE & goal METS by session 6, Documents in home exercise log/reports 30 min aerobic 5 day/wk by DC, Demonstrates accurate pulse taking by DC and Other additional outcome/goals: see below Intervention & Plan Exercise Program Goals: Instruct on personal THR & RPE, Instruct on MET level & personal MET goal, Show patient to take own pulse /validate performance until accurate, Instruct on home exercise and Other additional plan/int 30-day Reassessments 30 day Reassessments:: Met Physical Activity Home Exercise Physical Activity - Home Exercise: Safe Exercise, Warm-up, Self-monitoring, Cool-Down, Home Exercise > 30 min Daily and Sitting Time <3 hours/daily Outcomes & Goals Outcomes/Goals: Demonstrates correct Warm-up/exercise Cool-Down (S3) if = 2.5 METs, Verbalizes symptoms of exercise intolerance by Session 3 (S3), Demonstrate safe equipment use (S3) & follows exercise prescrition (6) and Other: See below Intervention & Plan Plan/Intervention: Instruct warm-up & cool-down if exercising at > 2 METs, Instruct on symptoms of exercise intolerance & actions to take, Instruct & monitor on saf, Assess intial functional capacity & safety risk and Other See below 30-day Reassessments 30 day Reassessments:: Met Exercise - Final/Discharge Physician Prescribed Exercise Modalities: SciFit Stepper and SciFit Pro-II Ergometer Nutrition - 30-Day Assessment Weight Mgt (Other Care) Height: 5 ft 8 in Weight:: 252 lb BMI: 38.2 Nutrition - 60-Day Assessment Weight Mgt (Other Care) Height: 5 ft 8 in Weight:: 252 lb BMI: 38.2 Core - 90 Day Assessment Visit Date of Eval: 05/06/24 Session #:: 25 Medication Compliance Preventative Medication(s):: Aspirin, Clopidogrel/P2Y12 inhibit, Statin/lipid and Beta yanna H/O mental health issues: depression, anxiety, or addiction?: No Doesn?t believe in the benefits of treatment?: No Believes medications are unnecessary or harmful?: No Has a concern about medication side effects?: No Expresses concern over the cost of medications?: No Outcomes/Goals: Verbalizes medications,desired effect & common side effects @ DC, Pt self-reports following medication regimen, Keeps card in wallet w/medications listed by DC and Other additional outcome/goals: Interventions/plans: Instruct on medication effects & side effects, Review medication list w/patient every two weeks, Instruct importance of taking meds as ordered & assist problem solving and Other additional 30-day Reassessments:: Met Tobacco Use Tobacco Use: Non-smoker Hypertension Hypertension Diagnosis:: Hypertension ICD-10 I10 Resting Blood Pressure:: 122/64 [place] [employer] Hypertension Guidelines Peak Exercise Blood Pressure:: 130/72 Outcomes/Goals: Able to verbalize/achieve optimal blood pressure <130/80, Incorporates diet changes & exercise for blood pressure control by DC and Other additional outcomes/goals Interventions/plan: Instruct on optimal blood pressure, hypertension & medications, Instruct on effects of sodium, alcohol, stress, exercise &hypertension and Other additional plan/interventions 30 day Reassessments:: Met Tobacco Cessation Referral Smoking Cessation Referral:: No Individual Education/Counseling:: No Education Schedule Given:: Yes Psychosocial - 30-Day Assess Target Goals Target Goals Psychosocial - 60-Day Assess Target Goals Target Goals Psychosocial - 90-Day Assess VIsit Date of Eval: 05/06/24 Session #:: 25 History of previous Mental disease:: No Target Goals Target Goals Outcomes/Goals: See list Psychosocial Outcomes/Goals:: ID's personal stressors & 2 strategies to manage stress by discharge and Other Additional outcome/goals: Intervention/Plan: See List Interventions/Plan:: Assess stressors,coping strategies & signs of derpression on admission, Instruct/assist pt to develop coping & personal stress Mgt strategies, Refer to Behavioral Health if appropriate, Refer to Physician if appropriate, Instruct patient to recognize signs & symptoms of depression, Instruct patient to recog and Other additional plan/intervention 30-day Reassessments: 30 day Reassessments:: Met Psychosocial - Final Assessmen Target Goals Target Goals Nutrition - 90-Day Assessment Program Goals Nutrition Program Goals Patient has diagnosis of Hyperlipidemia (ICD E78)?: Yes Visit Date of Eval: 05/06/24 Session #:: 25 Cholesterol/Lipids (Other Core Measures) Determine presence & major risk factors that modify LDL goal: Hypertension or hypertensive medication, Low HDL cholesterol <40 mg/dL*, Family history of premature CHD in Male < 55 years: female <65 yearsFa and Age men > 45 years; women >/= 55 years Outcomes/Goals: Pt IDs own risk factors & lifestyle modifications by Session 10, Verbalizes symptoms of angina & response by session 3., Pt independently manages and Other Additional Outcomes/Goals: Intervention/Plan: Advocate for lipid panel cholesterol medication if applicable, Instruct on personal lipid levels & lipid goals/NCEP guidelines, Instruct on cholesterol and Other additional plan/int 30-day Reassessments:: Met Diabetes (Other Core Measures) Diabetes Type: Diagnosis Type II ICD-10 E11 Insulin dependent injection/pump?: Yes Non-Insulin Dependent?: Yes Do you monitor your blood sugar at home?: Yes Outcomes/Goals:: Able to state symptoms of, Able to state, Able to state and Other additional Intervention/Plan:: Instruct on, Refer to, Instruct on and Other 30-day Reassessments:: Met Reassessment Notes & Comments:: BS of 145 Weight Mgt (Other Care) Height: 5 ft 8 in Weight:: 252 lb BMI: 38.2 Diagnosis Overweight/Obesity BMI> 30% ICD-10 E66: Yes Diagnosis High BMI/Morbid Obesity BMI> 35% ICD-10 Z68: Yes Outcomes/Goals: Pt sets, maintains & shows weight loss goal & trend during rehab and Other additional outcomes/goals Intervention/Plan: Instruct on ideal BMI & set weight loss goal w/patient, Assist pt to ID & incorporate diet changes for weight loss by S9, Refer to Structured Weight Loss program as appropriate, Encourage goal of using 250-300dcal per session for weight loss and Other additional plan/interventions 30 day Reassessments:: Met Healthy Eating Habits Will attend diet classes:: Yes Outcomes/Goals:: Consume diet rich in vegs,fruits,whole grain/high fiber,fish,lean meat, Limit sat/trans fats,cholesterol & added salts & sugars and Other additional outcome/goals: Intervention/Plan:: Assess current eating habits and Other Additional plan/interventions 30-day Reassessments:: Met Education Gave educational materials for:: Signs & symptoms of hypoglycemia, Signs & symptoms of hyperglycemia, Relate diabetes to coronary artery disease and Healthy eating Nutrition - Final Assessment Weight Mgt (Other Care) Height: 5 ft 8 in Weight:: 252 lb BMI: 38.2
[2024-05-06 07:26] VITALS: BP 122/64; BMI 38.2
== END 2024-05-14 23:59 ==
LOC: CR 08:00
PROVIDERS: PCP Family Medicine; Referring Provider Internal Medicine Cardiovascular Disease; Visit Provider Internal Medicine Cardiovascular Disease
DX: Z95.5 Presence of coronary angioplasty implant and graft (principal); R94.39 Abnormal result of other cardiovascular function study
CPT/HCPCS: 93798

== ENCOUNTER 2024-05-18 06:35 | Outpatient (RCR) | payer MEDICARE, SELFPAY ==
[2024-05-06 07:26] VITALS: BMI 38.2
[2024-05-15 00:46] VITALS: BP 122/64; BP 126/56; BP 130/68
== END 2024-06-13 23:59 ==
LOC: CR 06:35
PROVIDERS: PCP Family Medicine; Referring Provider Internal Medicine Cardiovascular Disease; Visit Provider Internal Medicine Cardiovascular Disease
DX: Z95.5 Presence of coronary angioplasty implant and graft (principal); R94.39 Abnormal result of other cardiovascular function study
CPT/HCPCS: 93798

== ENCOUNTER → 2024-07-28 | Outpatient (CLI) | payer MEDICARE, SELFPAY ==
[2024-05-06 07:26] VITALS: BMI 38.2
[2024-07-28 16:00] LABS: BNP,B-Type NATRIURETIC PEPTIDE 93.7 pg/mL (0-100)
[2024-07-28 16:04] LABS: ALB/GLOB Ratio 0.8 RATIO (0.9-2.4); AST(SGOT) 8 U/L (15-37); Alanine Aminotransfer ALT/SGPT 22 U/L (16-61); Albumin, Serum 3.2 g/dL (3.2-5.0); Alkaline Phosphatase 64 U/L (45-117); Anion Gap 3 (5-15); BUN 19 mg/dL (7-18); BUN/Creat Ratio 18.1 RATIO (10-20); Calcium,Total 9.2 mg/dL (8.5-10.1); Chloride 100 mmol/L (98-107); Creatinine, Serum 1.05 mg/dL (0.70-1.30); EST Glomerular Filtration Rate 74 mL/min (>60); Est Glom Filt Rate - Afr Amer 89 mL/min (>60); Glucose 82 mg/dL (74-106); Potassium 4.2 mmol/L (3.5-5.1); Protein, Total 7.2 g/dL (6.4-8.2); Sodium Level 138 mmol/L (136-145)
== END | disposition home or self-care (01) ==
PROVIDERS: PCP Family Medicine; Referring Provider Internal Medicine Cardiovascular Disease; Visit Provider Internal Medicine Cardiovascular Disease
DX: R06.02 Shortness of breath (principal); I50.30 Unspecified diastolic (congestive) heart failure; R06.09 Other forms of dyspnea
CPT/HCPCS: 36415; 80053; 83880

== ENCOUNTER 2024-08-09 14:30 | Outpatient (RCR) | payer MEDICARE, SELFPAY ==
[2024-04-04 08:21] VITALS: BMI 38.2
[2024-05-06 07:26] VITALS: BMI 38.2
[2024-08-02 14:58] VITALS: BP 118/76; PULSE 79; RESP 15; TEMP 36.4; BMI 37.2
[2024-08-02 15:17] VITALS: BMI 37.2
--- NOTE | 2024-08-03 09:31 | WC ---
photo 08/02/24 left le lateral
--- NOTE | 2024-08-04 15:29 | PCM.WC.HP ---
History of Present Illness Date of Service: 08/02/24 Chief Complaint: Venous ulceration, chronic venous insufficiency, venous hypertension with inflammation and ulceration - Left lower extremity History of Wound: This is a 73-year-old male who presented with an ulceration on the left lateral calf. The ulceration had been present for several weeks. The patient suffers from chronic swelling in his lower extremities bilaterally. He has had previous venous ulcerations in his lower extremities. A venous duplex examination performed on July 10, 2023, revealed incompetence of the right accessory saphenous vein in the mid thigh. The right great saphenous vein and small saphenous vein were competent. The left lower extremity venous system was not fully evaluated. The patient's most recent documented arterial study was performed in December 2021, which revealed no evidence of significant arterial occlusive disease in the lower extremities. The patient has previously undergone lower extremity venography, which revealed no evidence of significant venous outflow obstruction. He has mechanical pneumatic compression pumps at home, but has not recently been using them as directed. The patient has recently been hospitalized at [facility] from May 06 to May 18, 2024, for acute respiratory failure with hypoxia and hypercarbia. As a prelude to his admission, the patient had fallen, suffering a vertebral fracture of the thoracic #8 vertebrae. During the course of the patient's recent hospital admission, the patient was treated for staph pneumonia. He was also treated for metabolic encephalopathy. He is , and currently lives with his granddaughter, who assists him in his daily needs. The patient is known to be diabetic, and suffers from multiple other pre-existing medical conditions, which are listed herein. His most recent hemoglobin A1c was 8.9. The patient is not active, spending a great deal of each day sitting in idle fashion. He sleeps in a recliner at night. He denies a history of thrombophlebitis. [facility] Medical History (Updated 08/04/24 @ 21:[address] Lamin Ring MD) Swelling of left lower extremity KRISTI (obstructive sleep apnea) BPH (benign prostatic hyperplasia) Venous ulcer of left leg Venous hypertension, chronic, with ulcer and inflammation Chronic venous insufficiency 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-39.9) Acute respiratory failure with hypoxia and hypercarbia Fracture, thoracic vertebra Tinea cruris History of chronic CHF Varicose veins of both legs with edema Lower extremity edema 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 disease Carotid bruit Neck pain Shortness of breath Abnormal nuclear stress test Essential hypertension Inappropriate sexual behavior Hypomagnesemia Muscle cramps Edema Chronic diastolic (congestive) heart failure Atherosclerotic heart disease of [place] coronary artery without angina pectoris History of ST elevation myocardial infarction (STEMI) (07/11/17) Asthma IBS (irritable bowel syndrome) 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.9) Restless legs Hyperlipidemia Diabetes mellitus, type 2 Anxiety Home Medications ?Medication ?Instructions ?Recorded ?Last Taken ?Type metformin 1,000 mg tablet 1,000 mg PO BIDCM diabetes 01/17/16 01/25/24 History montelukast 10 mg tablet 10 mg PO QHS allergies 01/17/16 12/07/18 History acetaminophen 325 mg tablet 325 - 650 mg (1 - 2 x 325 mg) PO 07/14/17 Unknown Rx Q6H PRN PRN Pain aspirin 81 mg tablet,delayed 81 mg PO DAILY@0800 #30 tabs 07/14/17 01/26/24 Rx release pramipexole 1 mg tablet 2 mg PO QHS headache 05/07/18 12/08/18 21:00 History coenzyme Q10 100 mg capsule 100 mg PO DAILY supplement 12/08/18 12/04/18 History magnesium oxide 400 mg PO DAILY supplement 12/08/18 12/08/18 08:00 History fluticasone propionate 50 1 spray intranasal DAILY PRN nasal 04/05/20 Unknown History mcg/actuation nasal spray spray,suspension nitroglycerin 0.4 mg sublingual 0.4 mg sublingual Q5M PRN Angina 11/29/21 Unknown Rx tablet pain #25 tabs vitamin B complex 1 tab PO DAILY 03/14/22 Unknown History isosorbide mononitrate 30 mg 30 mg PO DAILY #90 tabs 07/05/23 Unknown Rx tablet,extended release 24 hr buspirone 10 mg tablet 20 mg PO BID Anxiety 08/20/23 Unknown History clopidogrel 75 mg tablet 75 mg PO DAILY #90 tabs 10/26/23 01/26/24 Rx albuterol sulfate 90 mcg/actuation 2 puff inhalation Q4H PRN 10/28/23 Unknown Rx aerosol inhaler (Ventolin HFA) shortness of breath or wheezing #18 grams clotrimazole-betamethasone 1 1 applic topical BID 4 weeks #45 11/17/23 Unknown Rx %-0.05 % topical cream grams carvedilol 25 mg tablet 25 mg PO BID #180 tabs 12/07/23 Unknown Rx cholecalciferol (vitamin D3) 50 2,000 unit PO DAILY supplement 12/07/23 Unknown History mcg (2,000 unit) capsule glyburide 1.25 mg tablet 1.25 mg PO BID 12/07/23 01/25/24 History omeprazole 40 mg capsule,delayed 40 mg PO BID 12/07/23 Unknown History release pravastatin 40 mg tablet 40 mg PO DAILY #90 TABLETS 02/09/24 Unknown Rx alprazolam 0.25 mg tablet 0.25 mg PO DAILY PRN anxiety 2 05/18/24 Unknown Rx days #7 tabs insulin NPH isoph U-100 human 100 See Rx Instructions .Route 05/18/24 Unknown Rx unit/mL subcutaneous suspension .COMPLEX diabetes 3 days #0 mL insulin lispro 100 unit/mL See Protocol subcut ACHS #0 mL 05/18/24 Unknown Rx subcutaneous pen (Humalog KwikPen (U-100) Insulin) tamsulosin 0.4 mg capsule 0.4 mg PO DAILY@1700 #0 caps 05/18/24 Unknown Rx furosemide 40 mg tablet 80 mg (2 x 40 mg) PO DAILY #270 06/01/24 Unknown Rx tabs metolazone 2.5 mg tablet 2.5 mg PO QDAY #90 tabs 07/28/24 Unknown Rx dapagliflozin propanediol 10 mg 10 mg PO QDAY #90 tabs 08/03/24 Unknown Rx tablet (Farxiga) evolocumab 140 mg/mL subcutaneous 140 mg subcut QMONTH #3 mL 08/03/24 Unknown Rx pen injector (Repatha Francescoick) Allergy/AdvReac Type Severity Reaction Status Date / Time Penicillins Allergy Severe Anaphylaxis Verified 07/28/24 13:26 quinine sulfate (From Quine) Allergy Severe passed out Verified 07/28/24 13:26 benzocaine (From Cetacaine) Allergy Swelling Verified 07/28/24 13:26 butamben (From Cetacaine) Allergy Swelling Verified 07/28/24 13:26 ciprofloxacin HCl (From Allergy Hives Verified 07/28/24 13:26 Cipro) clarithromycin (From Biaxin) Allergy Swelling Verified 07/28/24 13:26 exenatide (From [place]) Allergy Rash Verified 07/28/24 13:26 folic acid (From Allergy Rash Verified 07/28/24 13:26 Proferrin-Forte) hyoscyamine sulfate (From Allergy Rash Verified 07/28/24 13:26 Levsin) iron heme polypeptide (From Allergy tongue Verified 07/28/24 13:26 Proferrin-Forte) swelling naproxen (From Naprosyn) Allergy Rash Verified 07/28/24 13:26 tetracaine (From Cetacaine) Allergy throat Verified 07/28/24 13:26 swelled shut venlafaxine HCl (From Allergy tongue Verified 07/28/24 13:26 Effexor) swelling ezetimibe (From Zetia) AdvReac Severe Myalgias, Verified 07/28/24 13:26 diarrhea mold AdvReac Severe PT UNSURE Verified 07/28/24 13:26 OF REACTION niacin (From Niaspan AdvReac Severe PT UNSURE Verified 07/28/24 13:26 Extended-Release) OF REACTION procainamide AdvReac Severe Anaphylactic/Resp. Verified 07/28/24 13:26 Distress atorvastatin calcium (From AdvReac Intermediate Mylagias Verified 07/28/24 13:26 Lipitor) rosuvastatin calcium (From AdvReac Intermediate Myalgias Verified 07/28/24 13:26 Crestor) diphenhydramine HCl (From AdvReac Restlessnes Verified 07/28/24 13:26 Benadryl) s Family History Mother Diabetes Hypertension Father Hypotension Brother Hypertension HLD (hyperlipidemia) Grandmother Diabetes Grandfather CVA (cerebral vascular accident) Diabetes Brother Cancer lung Surgical History History of left knee surgery History of vasectomy History of appendectomy History of exploratory laparotomy History of cholecystectomy Stented coronary artery (~01/26/24) History of left heart catheterization (12/06/21) History of coronary artery stent placement (04/13/19) History of dental surgery Status post excision of lipoma Social History Smoking Status: Never smoker second hand exposure: No alcohol intake: never substance use type: does not use caffeine: No seatbelt use: always do you feel safe at home: Yes Vital Signs Vital Signs Vital Signs: Weight Weight: 245 lb Body Mass Index (BMI) 37.2 Physical Exam Const alert, oriented x3, no apparent distress, no limitations and well nourished Constitutional Narrative: The patient is obese, with a BMI of 37.2. General Appearance: cooperative, comfortable, well kempt and well developed Orientation / Consciousness: awake, oriented to person, oriented to place and oriented to time Exam Limitations: no limitations HEENT normocephalic and head/scalp atraumatic Head and Scalp: normal to inspection, normocephalic and atraumatic Face and Sinus: normal facial exam Nose: external nose normal External Ear: external ears normal Eyes EOMs intact bilaterally General Eye: normal appearance of both eyes Neck full ROM Resp normal respiratory effort, normal air movement, no retractions and no use of accessory muscles Effort and Inspection: able to speak in complete sentences Cardio regular rate and regular rhythm Extremity no calf tenderness General Extremity: Negative for clubbing or cyanosis Skin Wound Narrative: Lower extremities appear to be warm and well-perfused. Pedal pulses are easily audible by Doppler signal assessment. Moderate swelling and edema are noted in the lower extremities bilaterally. Lipodermatosclerosis is also noted bilaterally in the gaiter areas. Scaly dermatitis is noted in the left gaiter area. There is an ulceration on the left lateral calf, which appears to be superficial, and not full-thickness into the subcutaneous tissues. There is no sign of infection or cellulitis, though mild erythema appears to be inflammatory in nature.. Dimensions are documented elsewhere. The ulceration appears to be clustered, with a superficial eschar. Neuro oriented x3, CN's II-XII intact bilaterally, moves all extremities, no focal motor deficits and no sensory deficits noted Sensorium / Orientation: awake, alert, oriented to person, oriented to place and oriented to time Speech: speech normal Psych Appearance: grossly normal and appropriate Attitude: calm Activity / Motor Behavior: appropriate eye contact Speech: normal speech Mood & Affect: euthymic mood Thought Process: normal thought process Thought Content: normal thought content Attention / Concentration: attention grossly intact Debridement Note Debridement Note Wound debrided: Left lateral calf ulceration Laterality: Left Type of Debridement: Selective debridement Anesthesia Used: 5% Lidocaine Gel Depth: Down to and including healthy tissue Percentage of wound debrided: 100 Instrument Used: 5mm curette Tissue Removed: Eschar and devitalized tissue Severity: Limited To Skin Breakdown Amount of bleeding with debridement: Mild Bleeding Controlled with: Compression and gauze Patient tolerated procedure: Patient tolerated procedure well Post-Debridement Measurements and Additional Note: Post-Debridement Measurements/Treatment AYSHA - Nurse 1 - General Ulcer Assessment Start: 08/02/24 14:58 Freq: Status: Active Protocol: RAMSEY Activity Type Activity Date Activity User E-sign Co-sign Detail Recorded Client Recorded Date Recorded By Document 08/02/24 14:58 ML [id number] 08/02/24 15:07 ML Edit Result 08/02/24 14:58 ML (1) [id number] 08/02/24 15:16 ML Document 08/02/24 15:17 ML [id number] 08/02/24 15:17 ML (1) Right - Posterior Tibial Palpable => No - Posterior Tibial Doppler => Multiphasic - Dorsalis Pedis Palpable => No - Dorsalis Pedis Doppler => Multiphasic - Extremity Color => Hemosiderin - Hair Growth on Legs => No - Hair Growth on Toes => No - Temperature of Extremity => Warm - Capillary Refill => Greater than 3 => Seconds - Dependent Rubor => Yes - Blanched when Elevated => No - Lipodermatosclerosis => No - Other Deformity => No - Prior Foot Ulcer => No - Charcot Joint => No - Prior Amputation => No - Thick => Yes - Discolored => Yes - Deformed => Yes - Improper Length & Hygeine => No Left - Posterior Tibial Palpable => No - Posterior Tibial Doppler => Multiphasic - Dorsalis Pedis Palpable => No - Dorsalis Pedis Doppler => Multiphasic - Extremity Color => Hemosiderin - Hair Growth on Legs => No - Hair Growth on Toes => No - Temperature of Extremity => Warm - Capillary Refill => Greater than 3 => Seconds - Dependent Rubor => No - Blanched when Elevated => No - Lipodermatosclerosis => No - Other Deformity => No - Prior Foot Ulcer => No - Charcot Joint => No - Prior Amputation => No - Thick => Yes - Discolored => Yes - Deformed => Yes - Improper Length & Hygeine => No Feet - Top Side and Bottom => <Entered> (a) Preferred language => [place] [employer] Lathe Operator Required => No Able to Read => Yes Able to Write => Yes Communication Tools => None Caregiver Communication Skills => No Impairment Impairment Right Hearing Abillity => Normal Left Hearing Abillity => Normal Visual Assistive Devices => Glasses Preferences => Verbal,Written, => Demonstration Barriers to Learning => None Readiness To Learn => Good Willingness to Engage in Self Management => Med Activies Readiness to Engage in Self Management => Med Activities Anxiety Level => Calm Cooperation => Cooperative Perception => Coherent Interest in Health Problem => Asks Questions Education Importance => Acknowledges Need Does Patient Smoke tobacco or other => No substances Smoking Status => Never smoker Is Patient Diabetic => Yes Recent Decline in Ability to Perform => Bathing Assistive Device With Patient => No Cultural/Scientology Needs that may affect => No Treatment Plan Would you allow our hospital can machine operator to => No meet you for the purpose of spiritual/ emotional support? Dockworker to contact place of islam => No *Welcome to the Wound Center - Person Taught => Patient,Family - Teaching Method => Discussion, => Demonstration - Response to teaching => Verbalize => Understanding 08/02/24 08/02/24 14:58 15:17 WC - Today's Visit Information Type of service Initial Visit Arrival Mode Ambulatory Transfer Assistance None Patient Identification Verified (Name & Yes ) Patient Requires Transmission-Based No Precautions Finger Stick Blood Sugar(mg/dl) (if 160 indicated): Blood Sugar Stated by Patient Height and Weight Height 5 ft 8 in Weight 245 lb Weight in Pounds 245.0 lbs Body Mass Index (BMI) 37.2 37.2 BMI Classification Obese Obese BSA - Kenneth 2.23 Vital Signs Temperature (97.8 F-99.1 F) 97.5 F L Temperature Source Temporal Pulse Rate (60-100) 79 Respiratory Rate (12-18) 15 Respiratory rate source Observation Blood Pressure (90/60-120/80) 118/76 Blood Pressure Mean 90 Source Monitor History Since Last Visit- (Skip if this is Patient's initial visit) Have you changed medications since your No last visit? Any new allergies or adverse reactions No Had a fall/change in ADL's that may No increase risk of falls Have you been in the hospital since your No last visit? Has dressing in place as prescribed No Has compression in place as prescribed N/A Has offloadiing in place as prescribed N/A Experienced any changes in pain level or No management Pain Scale: 0-10 Numeric Is Patient Pain Free? Yes Yes Lower Extremity Assessment/ Foot Assessment/ Toe Nail Assessment Right -Posterior Tibial Palpable No -Posterior Tibial Doppler Multiphasic -Dorsalis Pedis Palpable No -Dorsalis Pedis Doppler Multiphasic -Extremity Color Hemosiderin -Hair Growth on Legs No -Hair Growth on Toes No -Temperature of Extremity Warm -Capillary Refill Greater than 3 Seconds -Dependent Rubor Yes -Blanched when Elevated No -Lipodermatosclerosis No -Other Deformity No -Prior Foot Ulcer No -Charcot Joint No -Prior Amputation No -Thick Yes -Discolored Yes -Deformed Yes -Improper Length & Hygeine No Left -Posterior Tibial Palpable No -Posterior Tibial Doppler Multiphasic -Dorsalis Pedis Palpable No -Dorsalis Pedis Doppler Multiphasic -Extremity Color Hemosiderin -Hair Growth on Legs No -Hair Growth on Toes No -Temperature of Extremity Warm -Capillary Refill Greater than 3 Seconds -Dependent Rubor No -Blanched when Elevated No -Lipodermatosclerosis No -Other Deformity No -Prior Foot Ulcer No -Charcot Joint No -Prior Amputation No -Thick Yes -Discolored Yes -Deformed Yes -Improper Length & Hygeine No Neuropathy Assessment Feet - Top Side and Bottom <Entered> (a) Communication Assessment Preferred language [place] [employer] [place] Lathe Operator Required No Able to Read Yes Able to Write Yes Communication Tools None Caregiver Communication Skills No Impairment Impairment Right Hearing Abillity Normal Left Hearing Abillity Normal Visual Assistive Devices Glasses Teaching Assessment Preferences Verbal,Written, Demonstration Barriers to Learning None Readiness To Learn Good Willingness to Engage in Self Management Med Activies Readiness to Engage in Self Management Med Activities Anxiety Level Calm Cooperation Cooperative Perception Coherent Interest in Health Problem Asks Questions Education Importance Acknowledges Need Does Patient Smoke tobacco or other No substances Smoking Status Never smoker Is Patient Diabetic Yes Functional Assessment Recent Decline in Ability to Perform Bathing Assistive Device With Patient No Culture/Scientology/Dockworker Cultural/Scientology Needs that may affect No Treatment Plan Would you allow our hospital can machine operator to No meet you for the purpose of spiritual/ emotional support? Dockworker to contact place of islam No Teaching: Wound Center *Welcome to the Wound Center -Person Taught Patient,Family -Teaching Method Discussion, Demonstration -Response to teaching Verbalize Understanding (a) 1 - + throughout WC - Nurse 1 - General Ulcer Measurement Start: 08/02/24 14:58 Freq: Status: Active Protocol: Activity Type Activity Date Activity User E-sign Co-sign Detail Recorded Client Recorded Date Recorded By Document 08/02/24 14:58 ML [id number] 08/02/24 15:07 ML 08/02/24 14:58 Wound Center Nurse 1 left lower leg -Current Size (cm) - Length 0.1 -Current Size (cm) - Width 0.1 -Current Size (cm) - Depth 0.1 -Total Square Cm 0.01 -Exudate Amt Medium -Exudate Type Serosanguineous -Wound Margin Distinct, Outline Attached -Granulation Amt Medium (34-66%) -Slough/Fibrin Yes -Necrosis Amt Medium (34-66%) -Necrotic Tissue Type Adherent Slough -Texture (Swetha-wound Skin Appearance) Assessed -Color (Swetha-wound Skin Appearance) Hemosiderin Staining -Temperature (Swetha-wound Skin No Abnormality Appearance) (Pt Warm) -Tenderness on Palpation (Swetha-wound No Skin Appearance) -Ulcer Cleansing Rinsed/ Irrigated with Saline -Foul Odor after Cleansing No -Anesthetic Used 5% Lidocaine Gel Right Calf (cm) 43 Right Ankle (cm) 28 Left Calf (cm) 44.8 Left Ankle (cm) 26 WC - Nurse 2 - General Ulcer CM Notes Start: 08/02/24 14:58 Freq: Status: Active Protocol: Activity Type Activity Date Activity User E-sign Co-sign Detail Recorded Client Recorded Date Recorded By Document 08/02/24 15:53 DS [id number] 08/02/24 15:54 DS 08/02/24 15:53 Wound Center Nurse 2 left lower leg -Time 15:50 -Correct Patient Yes -Correct Side, Site, Position Yes -Correct Procedure Yes -Procedure Performed Yes -Type of Procedure Debridement -Clinical Debridement Subcutaneous -Tissue Removed Subcutaneous -Post Debridement (cm) - Length 5.5 -Post Debridement (cm) - Width 5.8 -Post Debridement (cm) - Depth 0.1 -Total Square (Post) (cm) 31.90 -Area of Debridement (cm) - Length 5.5 -Area of Debridement (cm) - Width 5.8 -Total Square (Area) (cm) 31.90 -Tunneling No -Undermining/Tunneling No -Circular Undermining No -Wound/Ulcer Outcome Not Healed -Ulcer Cleansing Rinsed/ Irrigated with Saline -Bioengineered Tissue No -Bleeding Controlled with Pressure -Treatment Response Procedure Tolerated Well -Debridement - Subq, 1st 20sq cm Yes -Debridement, SubQ, ea addt'l 20sq cm 1 or part thereof Pain Scale: 0-10 Numeric Is Patient Pain Free? Yes WC - Nurse 3 - General Ulcer D/C NN Start: 08/02/24 14:58 Freq: Status: Active Protocol: Activity Type Activity Date Activity User E-sign Co-sign Detail Recorded Client Recorded Date Recorded By Document 08/02/24 16:04 [place] [id number] 08/02/24 16:05 [place] 08/02/24 16:04 Wound Care Center Nurse 3 left lower leg -Primary Dressing Applied C Hydrogel ($) -Primary Dressing Covered/Secured with Dry Gauze,Dry Gauze & Roll Gauze,Secured with Tape Right -Tubular Bandage Double Layer -Size of Tubigrip Used Size F -Size F ($) 2 Left -Tubular Bandage Double Layer -Size of Tubigrip Used Size F -Size F ($) 2 Pain Scale: 0-10 Numeric Is Patient Pain Free? Yes Lab / Micro Data Labs: Laboratory Tests 07/28/24 14:28 Sodium 138 Potassium 4.2 Chloride 100 BUN 19 H Creatinine 1.05 Glucose 82 Calcium 9.2 Total Bilirubin 0.50 AST 8 L ALT 22 Alkaline Phosphatase 64 Total Protein 7.2 Albumin 3.2 Charges/Coding Visit Charges Office Visits / Consults: [id number] OV L4 New 45min Assessment/Plan Assessment/Plan (1) Venous ulcer of left leg: CODE(S): I83.029 - Varicose veins of left lower extremity with ulcer of unspecified site; L97.929 - Non-pressure chronic ulcer of unspecified part of left lower leg with unspecified severity (2) Venous hypertension, chronic, with ulcer and inflammation: CODE(S): I87.339 - Chronic venous hypertension (idiopathic) with ulcer and inflammation of unspecified lower extremity QUALIFIERS: Laterality: left Qualified Code(s): I87.332 - Chronic venous hypertension (idiopathic) with ulcer and inflammation of left lower extremity (3) Chronic venous insufficiency: CODE(S): I87.2 - Venous insufficiency (chronic) (peripheral) (4) Varicose veins of both legs with edema: CODE(S): I83.893 - Varicose veins of bilateral lower extremities with other complications (5) Swelling of left lower extremity: CODE(S): M79.89 - Other specified soft tissue disorders (6) Diabetes: CODE(S): E11.9 - Type 2 diabetes mellitus without complications QUALIFIERS: Diabetes mellitus type: type 2 (7) 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-39.9): CODE(S): E66.9 - Obesity, unspecified (8) Lower extremity edema: CODE(S): R60.0 - Localized edema (9) Dyslipidemia: CODE(S): E78.5 - Hyperlipidemia, unspecified (10) Hypertension: CODE(S): I10 - Essential (primary) hypertension (11) Hyperlipidemia: CODE(S): E78.5 - Hyperlipidemia, unspecified QUALIFIERS: Hyperlipidemia type: unspecified Qualified Code(s): E78.5 - Hyperlipidemia, unspecified (12) History of coronary artery stent placement: CODE(S): Z95.5 - Presence of coronary angioplasty implant and graft (13) History of ST elevation myocardial infarction (STEMI): CODE(S): I25.2 - Old myocardial infarction (14) Atherosclerotic heart disease of [place] coronary artery without angina pectoris: CODE(S): I25.10 - Atherosclerotic heart disease of [place] coronary artery without angina pectoris QUALIFIERS: [place] vs. transplanted heart: [place] heart Qualified Code(s): I25.10 - Atherosclerotic heart disease of [place] coronary artery without angina pectoris (15) 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 disease: CODE(S): I25.10 - Atherosclerotic heart disease of [place] coronary artery without angina pectoris (16) History of chronic CHF: CODE(S): Z86.79 - Personal history of other diseases of the circulatory system (17) Asthma: CODE(S): J45.909 - Unspecified asthma, uncomplicated QUALIFIERS: Asthma complication type: uncomplicated Asthma persistence: intermittent Asthma severity: mild Qualified Code(s): J45.20 - Mild intermittent asthma, uncomplicated (18) Closed fracture of T8 vertebra: CODE(S): S22.069A - Unspecified fracture of T7-T8 vertebra, initial encounter for closed fracture (19) Stented coronary artery: CODE(S): Z95.5 - Presence of coronary angioplasty implant and graft (20) KRISTI (obstructive sleep apnea): CODE(S): G47.33 - Obstructive sleep apnea (adult) (pediatric) (21) History of cholecystectomy: CODE(S): Z90.49 - Acquired absence of other specified parts of digestive tract (22) History of exploratory laparotomy: CODE(S): Z98.890 - Other specified postprocedural states (23) History of appendectomy: CODE(S): Z90.49 - Acquired absence of other specified parts of digestive tract (24) History of left knee surgery: CODE(S): Z98.890 - Other specified postprocedural states (25) History of vasectomy: CODE(S): Z98.52 - Vasectomy status (26) History of left heart catheterization: CODE(S): Z98.890 - Other specified postprocedural states (27) (HFpEF) heart failure with preserved ejection fraction: CODE(S): I50.30 - Unspecified diastolic (congestive) heart failure (28) Acute hypercapnic respiratory failure due to obstructive sleep apnea: CODE(S): J96.02 - Acute respiratory failure with hypercapnia; G47.33 - Obstructive sleep apnea (adult) (pediatric) (29) BPH (benign prostatic hyperplasia): CODE(S): N40.0 - Benign prostatic hyperplasia without lower urinary tract symptoms PLAN: Plan This is a 73-year-old male with a long history of chronic venous insufficiency, venous hypertension with inflammation and ulceration, and lower extremity swelling. He presented at this time with a venous ulceration on the left lateral calf, associated with a significant amount of swelling and edema. The patient has been instructed in the appropriate conservative measures relative to his chronic venous disease. The patient is to elevate his lower extremities is much as possible. Elevation is to be to heart level, or higher, as much as possible. He has been encouraged to sleep on a flat mattress at night. Prolonged idle sitting has been discouraged. Activity and ambulation have been encouraged. Double layer Tubigrip's have been provided, and are to be donned on a daily basis. We are to implement the use of collagen hydrogel topically, which will be applied on a daily basis. The patient has been instructed in the appropriate means of application. The patient has been encouraged to reimplement the use of his mechanical pneumatic compression pumps, 2 or 3 times daily. He has been encouraged to bring these pumps with him to his next visit, to assure their appropriateness and settings. He has also been encouraged to be accompanied by his daughter at his next visit, so that she can learn his medical needs in detail. The patient has been encouraged to optimize his diabetes control, as well as his nutritional intake. The patient is to return in 1 week for reevaluation. Total time: 45 minutes
[2024-08-09 14:50] VITALS: BP 109/54; PULSE 88; RESP 18; TEMP 36.8; BMI 37.2
[2024-08-09 16:20] VITALS: BP 155/77; PULSE 79; RESP 18
--- NOTE | 2024-08-09 16:22 | WC ---
PT HAD FELT HYPOGLYCEMIC. SUGAR CHECKED AND READ AT 54, SNACKS AND DRINKS GIVEN AND CAME UP TO 65 IN 10 MIN. GRANDDAUGHTER STATES THEY LIVE CLOSE BY, PT FEELS SAFE ENOUGH TO TRAVEL HOME AND MANAGE SUGAR AT HOME.
--- NOTE | 2024-08-09 19:00 | HP.PCM_ITS ---
History of Present Illness Date of Service: 08/09/24 Chief Complaint: Venous ulceration, chronic venous insufficiency, venous h ypertension with inflammation and ulceration - Left lower extremity History of Wound: This is a 73-year-old male who presented with an ulceration on the left lateral calf. The ulceration had been present for several weeks. The patient suffers from chronic swelling in his lower extremities bilaterally. He has had previous venous ulcerations in his lower extremities. A venous duplex examination performed on July 10, 2023, revealed incompetence of the right accessory saphenous vein in the mid thigh. The right great saphenous vein and small saphenous vein were competent. The left lower extremity venous system was not fully evaluated. The patient's most recent documented arterial study was performed in December 2021, which revealed no evidence of significant arterial occlusive disease in the lower extremities. The patient has previously undergone lower extremity venography, which revealed no evidence of significant venous outflow obstruction. He has mechanical pneumatic compression pumps at home, but has not recently been using them as directed. The patient was recently hospitalized at [facility] from May 06 to May 18, 2024, for acute respiratory failure with hypoxia and hypercarbia. As a prelude to his admission, the patient had fallen, suffering a vertebral fracture of the thoracic #8 vertebrae. During the course of the patient's recent hospital admission, the patient was treated for staph pneumonia. He was also treated for metabolic encephalopathy. He is , and currently lives with his granddaughter, who assists him in his daily needs. The patient is known to be diabetic, and suffers from multiple other pre-existing medical conditions, which are listed herein. His most recent hemoglobin A1c was 8.9. The patient is not active, spending a great deal of each day sitting in idle fashion. He sleeps in a recliner at night. He denies a history of thrombophlebitis. [facility] Medical History Swelling of left lower extremity KRISTI (obstructive sleep apnea) BPH (benign prostatic hyperplasia) Venous ulcer of left leg Venous hypertension, chronic, with ulcer and inflammation Chronic venous insufficiency 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-39.9) Acute respiratory failure with hypoxia and hypercarbia Fracture, thoracic vertebra Tinea cruris History of chronic CHF Varicose veins of both legs with edema Lower extremity edema 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 disease Carotid bruit Neck pain Shortness of breath Abnormal nuclear stress test Essential hypertension Inappropriate sexual behavior Hypomagnesemia Muscle cramps Edema Chronic diastolic (congestive) heart failure Atherosclerotic heart disease of [place] coronary artery without angina pectoris History of ST elevation myocardial infarction (STEMI) (07/11/17) Asthma IBS (irritable bowel syndrome) 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.9) Restless legs Hyperlipidemia Diabetes mellitus, type 2 Anxiety Home Medications ?Medication ?Instructions ?Recorded ?Last Taken ?Type metformin 1,000 mg tablet 1,000 mg PO BIDCM diabetes 01/17/16 01/25/24 History montelukast 10 mg tablet 10 mg PO QHS allergies 01/17/16 12/07/18 History acetaminophen 325 mg tablet 325 - 650 mg (1 - 2 x 325 mg) PO 07/14/17 Unknown Rx Q6H PRN PRN Pain aspirin 81 mg tablet,delayed 81 mg PO DAILY@0800 #30 tabs 07/14/17 01/26/24 Rx release pramipexole 1 mg tablet 2 mg PO QHS headache 05/07/18 12/08/18 21:00 History coenzyme Q10 100 mg capsule 100 mg PO DAILY supplement 12/08/18 12/04/18 History magnesium oxide 400 mg PO DAILY supplement 12/08/18 12/08/18 08:00 History fluticasone propionate 50 1 spray intranasal DAILY PRN nasal 04/05/20 Unknown History mcg/actuation nasal spray spray,suspension nitroglycerin 0.4 mg sublingual 0.4 mg sublingual Q5M PRN Angina 11/29/21 Unknown Rx tablet pain #25 tabs vitamin B complex 1 tab PO DAILY 03/14/22 Unknown History isosorbide mononitrate 30 mg 30 mg PO DAILY #90 tabs 07/05/23 Unknown Rx tablet,extended release 24 hr buspirone 10 mg tablet 20 mg PO BID Anxiety 08/20/23 Unknown History clopidogrel 75 mg tablet 75 mg PO DAILY #90 tabs 10/26/23 01/26/24 Rx albuterol sulfate 90 mcg/actuation 2 puff inhalation Q4H PRN 10/28/23 Unknown Rx aerosol inhaler (Ventolin HFA) shortness of breath or wheezing #18 grams clotrimazole-betamethasone 1 1 applic topical BID 4 weeks #45 11/17/23 Unknown Rx %-0.05 % topical cream grams carvedilol 25 mg tablet 25 mg PO BID #180 tabs 12/07/23 Unknown Rx cholecalciferol (vitamin D3) 50 2,000 unit PO DAILY supplement 12/07/23 Unknown History mcg (2,000 unit) capsule glyburide 1.25 mg tablet 1.25 mg PO BID 12/07/23 01/25/24 History omeprazole 40 mg capsule,delayed 40 mg PO BID 12/07/23 Unknown History release pravastatin 40 mg tablet 40 mg PO DAILY #90 TABLETS 02/09/24 Unknown Rx alprazolam 0.25 mg tablet 0.25 mg PO DAILY PRN anxiety 2 05/18/24 Unknown Rx days #7 tabs insulin NPH isoph U-100 human 100 See Rx Instructions .Route 05/18/24 Unknown Rx unit/mL subcutaneous suspension .COMPLEX diabetes 3 days #0 mL insulin lispro 100 unit/mL See Protocol subcut ACHS #0 mL 05/18/24 Unknown Rx subcutaneous pen (Humalog KwikPen (U-100) Insulin) tamsulosin 0.4 mg capsule 0.4 mg PO DAILY@1700 #0 caps 05/18/24 Unknown Rx furosemide 40 mg tablet 80 mg (2 x 40 mg) PO DAILY #270 06/01/24 Unknown Rx tabs metolazone 2.5 mg tablet 2.5 mg PO QDAY #90 tabs 07/28/24 Unknown Rx dapagliflozin propanediol 10 mg 10 mg PO QDAY #90 tabs 08/03/24 Unknown Rx tablet (Farxiga) evolocumab 140 mg/mL subcutaneous 140 mg subcut QMONTH #3 mL 08/03/24 Unknown Rx pen injector (Repatha SureClick) Allergy/AdvReac Type Severity Reaction Status Date / Time Penicillins Allergy Severe Anaphylaxis Verified 08/09/24 08:02 quinine sulfate (From Quine) Allergy Severe passed out Verified 08/09/24 08:02 benzocaine (From Cetacaine) Allergy Swelling Verified 08/09/24 08:02 butamben (From Cetacaine) Allergy Swelling Verified 08/09/24 08:02 ciprofloxacin HCl (From Allergy Hives Verified 08/09/24 08:02 Cipro) clarithromycin (From Biaxin) Allergy Swelling Verified 08/09/24 08:02 exenatide (From Byetta) Allergy Rash Verified 08/09/24 08:02 folic acid (From Allergy Rash Verified 08/09/24 08:02 Proferrin-Forte) hyoscyamine sulfate (From Allergy Rash Verified 08/09/24 08:02 Levsin) iron heme polypeptide (From Allergy tongue Verified 08/09/24 08:02 Proferrin-Forte) swelling naproxen (From Naprosyn) Allergy Rash Verified 08/09/24 08:02 tetracaine (From Cetacaine) Allergy throat Verified 08/09/24 08:02 swelled shut venlafaxine HCl (From Allergy tongue Verified 08/09/24 08:02 Effexor) swelling ezetimibe (From Zetia) AdvReac Severe Myalgias, Verified 08/09/24 08:02 diarrhea mold AdvReac Severe PT UNSURE Verified 08/09/24 08:02 OF REACTION niacin (From Niaspan AdvReac Severe PT UNSURE Verified 08/09/24 08:02 Extended-Release) OF REACTION procainamide AdvReac Severe Anaphylactic/Resp. Verified 08/09/24 08:02 Distress atorvastatin calcium (From AdvReac Intermediate Mylagias Verified 08/09/24 08:02 Lipitor) rosuvastatin calcium (From AdvReac Intermediate Myalgias Verified 08/09/24 08:02 Crestor) diphenhydramine HCl (From AdvReac Restlessnes Verified 08/09/24 08:02 Benadryl) s Family History Mother Diabetes Hypertension Father Hypotension Brother Hypertension HLD (hyperlipidemia) Grandmother Diabetes Grandfather CVA (cerebral vascular accident) Diabetes Brother Cancer lung Surgical History History of left knee surgery History of vasectomy History of appendectomy History of exploratory laparotomy History of cholecystectomy Stented coronary artery (~01/26/24) History of left heart catheterization (12/06/21) History of coronary artery stent placement (04/13/19) History of dental surgery Status post excision of lipoma Social History Smoking Status: Never smoker second hand exposure: No alcohol intake: never substance use type: does not use caffeine: No seatbelt use: always do you feel safe at home: Yes Vital Signs Vital Signs Vital Signs: 08/09/24 14:50 08/09/24 16:20 Temperature 98.2 F Temperature Source Temporal Pulse Rate 88 79 Respiratory Rate 18 18 Blood Pressure 109/54 L 155/77 H Blood Pressure Mean 72 103 Blood Pressure Source Monitor Monitor Blood Pressure Position Semi-Fowlers Semi-Fowlers Blood Pressure Location Left Forearm Left Arm Oxygen Delivery Method Room Air Room Air Oxygen Flow Rate (L/min) 93 Weight Weight: 245 lb Body Mass Index (BMI) 37.2 Physical Exam Const alert, oriented x3, no apparent distress, no limitations and well nourished Constitutional Narrative: The patient is obese, with a BMI of 37.2. General Appearance: cooperative, comfortable, well kempt and well developed Orientation / Consciousness: awake, oriented to person, oriented to place and oriented to time Exam Limitations: no limitations HEENT normocephalic and head/scalp atraumatic Head and Scalp: normal to inspection, normocephalic and atraumatic Face and Sinus: normal facial exam Nose: external nose normal External Ear: external ears normal Eyes EOMs intact bilaterally General Eye: normal appearance of both eyes Neck full ROM Resp normal respiratory effort, normal air movement, no retractions and no use of accessory muscles Effort and Inspection: able to speak in complete sentences Cardio regular rate and regular rhythm Extremity no calf tenderness General Extremity: Negative for clubbing or cyanosis Skin Wound Narrative: Lower extremities appear to be warm and well-perfused. Pedal pulses are easily audible by Doppler signal assessment. Slight swelling and edema are noted in the lower extremities bilaterally. Lipodermatosclerosis is also noted bilaterally in the gaiter areas. Scaly dermatitis is noted in the left gaiter area. There is a small, full-thickness, clustered ulceration on the left lateral calf, smaller than noted previously. Bioburden and eschar are present. Dimensions are documented elsewhere. There is no sign of infection or cellulitis. Neuro oriented x3, CN's II-XII intact bilaterally, moves all extremities, no focal motor deficits and no sensory deficits noted Sensorium / Orientation: awake, alert, oriented to person, oriented to place and oriented to time Speech: speech normal Psych Appearance: grossly normal and appropriate Attitude: calm Activity / Motor Behavior: appropriate eye contact Speech: normal speech Mood & Affect: euthymic mood Thought Process: normal thought process Thought Content: normal thought content Attention / Concentration: attention grossly intact Debridement Note Debridement Note Wound debrided: Left lateral calf ulceration Laterality: Left Type of Debridement: Excisional debridement Anesthesia Used: 5% Lidocaine Gel Depth: Down to and including healthy tissue and in the subcutaneous layer Percentage of wound debrided: 100 Instrument Used: 3mm curette Tissue Removed: Eschar and bioburden Severity: Fat Layer Exposed Amount of bleeding with debridement: Mild Bleeding Controlled with: Compression and gauze Patient tolerated procedure: Patient tolerated procedure well Post-Debridement Measurements and Additional Note: Post-Debridement Measurements/Treatment WC - Nurse 1 - General Ulcer Assessment Start: 08/02/24 14:58 Freq: Status: Active Protocol: RAMSEY Activity Type Activity Date Activity User E-sign Co-sign Detail Recorded Client Recorded Date Recorded By Document 08/02/24 14:58 ML [id number] 08/02/24 15:07 ML Edit Result 08/02/24 14:58 ML (1) [id number] 08/02/24 15:16 ML Document 08/02/24 15:17 ML [id number] 08/02/24 15:17 ML Document 08/09/24 14:50 KW [id number] 08/09/24 14:59 KW (1) Right - Posterior Tibial Palpable => No - Posterior Tibial Doppler => Multiphasic - Dorsalis Pedis Palpable => No - Dorsalis Pedis Doppler => Multiphasic - Extremity Color => Hemosiderin - Hair Growth on Legs => No - Hair Growth on Toes => No - Temperature of Extremity => Warm - Capillary Refill => Greater than 3 => Seconds - Dependent Rubor => Yes - Blanched when Elevated => No - Lipodermatosclerosis => No - Other Deformity => No - Prior Foot Ulcer => No - Charcot Joint => No - Prior Amputation => No - Thick => Yes - Discolored => Yes - Deformed => Yes - Improper Length & Hygeine => No Left - Posterior Tibial Palpable => No - Posterior Tibial Doppler => Multiphasic - Dorsalis Pedis Palpable => No - Dorsalis Pedis Doppler => Multiphasic - Extremity Color => Hemosiderin - Hair Growth on Legs => No - Hair Growth on Toes => No - Temperature of Extremity => Warm - Capillary Refill => Greater than 3 => Seconds - Dependent Rubor => No - Blanched when Elevated => No - Lipodermatosclerosis => No - Other Deformity => No - Prior Foot Ulcer => No - Charcot Joint => No - Prior Amputation => No - Thick => Yes - Discolored => Yes - Deformed => Yes - Improper Length & Hygeine => No Feet - Top Side and Bottom => <Entered> (a) Preferred language => [place] Extrusion Die Template Maker Required => No Able to Read => Yes Able to Write => Yes Communication Tools => None Caregiver Communication Skills => No Impairment Impairment Right Hearing Abillity => Normal Left Hearing Abillity => Normal Visual Assistive Devices => Glasses Preferences => Verbal,Written, => Demonstration Barriers to Learning => None Readiness To Learn => Good Willingness to Engage in Self Management => Med Activies Readiness to Engage in Self Management => Med Activities Anxiety Level => Calm Cooperation => Cooperative Perception => Coherent Interest in Health Problem => Asks Questions Education Importance => Acknowledges Need Does Patient Smoke tobacco or other => No substances Smoking Status => Never smoker Is Patient Diabetic => Yes Recent Decline in Ability to Perform => Bathing Assistive Device With Patient => No Cultural/Sabianist Needs that may affect => No Treatment Plan Would you allow our hospital warble saw operator to => No meet you for the purpose of spiritual/ emotional support? Advertising Dispatch Clerks Supervisor to contact place of scientologist => No *Welcome to the Wound Center - Person Taught => Patient,Family - Teaching Method => Discussion, => Demonstration - Response to teaching => Verbalize => Understanding 08/02/24 08/02/24 08/09/24 14:58 15:17 14:50 WC - Today's Visit Information Type of service Initial Visit Follow-up Visit (Physician/[employer] MACHINE OPERATOR ) Arrival Mode Ambulatory Ambulatory Transfer Assistance None Patient Identification Verified (Name & Yes Yes ) Patient Requires Transmission-Based No Precautions Finger Stick Blood Sugar(mg/dl) (if 160 indicated): Blood Sugar Stated by Patient Height and Weight Height 5 ft 8 in Weight 245 lb Weight in Pounds 245.0 lbs Body Mass Index (BMI) 37.2 37.2 37.2 BMI Classification Obese Obese Obese BSA - Kenneth 2.23 Vital Signs Temperature (97.8 F-99.1 F) 97.5 F L 98.2 F Temperature Source Temporal Temporal Pulse Rate (60-100) 79 88 Pulse Location Monitor Respiratory Rate (12-18) 15 18 Respiratory rate source Observation Observation Oxygen Delivery Method Room Air Blood Pressure (90/60-120/80) 118/76 109/54 L Blood Pressure Mean 90 72 Source Monitor Monitor Position Semi-Fowlers Blood Pressure Location Left Forearm History Since Last Visit- (Skip if this is Patient's initial visit) Have you changed medications since your No No last visit? Any new allergies or adverse reactions No No Had a fall/change in ADL's that may No No increase risk of falls Signs or symptoms of abuse and/or No neglect since last visit Have you been in the hospital since your No No last visit? Has dressing in place as prescribed No Yes Has compression in place as prescribed N/A Yes Has offloadiing in place as prescribed N/A N/A Experienced any changes in pain level or No No management Left Footwear Regular Shoe Right Footwear Regular Shoe Pain Scale: 0-10 Numeric Is Patient Pain Free? Yes Yes Yes Lower Extremity Assessment/ Foot Assessment/ Toe Nail Assessment Right -Posterior Tibial Palpable No -Posterior Tibial Doppler Multiphasic -Dorsalis Pedis Palpable No -Dorsalis Pedis Doppler Multiphasic -Extremity Color Hemosiderin -Hair Growth on Legs No -Hair Growth on Toes No -Temperature of Extremity Warm -Capillary Refill Greater than 3 Seconds -Dependent Rubor Yes -Blanched when Elevated No -Lipodermatosclerosis No -Other Deformity No -Prior Foot Ulcer No -Charcot Joint No -Prior Amputation No -Thick Yes -Discolored Yes -Deformed Yes -Improper Length & Hygeine No Left -Posterior Tibial Palpable No -Posterior Tibial Doppler Multiphasic -Dorsalis Pedis Palpable No -Dorsalis Pedis Doppler Multiphasic -Extremity Color Hemosiderin -Hair Growth on Legs No -Hair Growth on Toes No -Temperature of Extremity Warm -Capillary Refill Greater than 3 Seconds -Dependent Rubor No -Blanched when Elevated No -Lipodermatosclerosis No -Other Deformity No -Prior Foot Ulcer No -Charcot Joint No -Prior Amputation No -Thick Yes -Discolored Yes -Deformed Yes -Improper Length & Hygeine No Neuropathy Assessment Feet - Top Side and Bottom <Entered> (a) Communication Assessment Preferred language [place] Extrusion Die Template Maker Required No Able to Read Yes Able to Write Yes Communication Tools None Caregiver Communication Skills No Impairment Impairment Right Hearing Abillity Normal Left Hearing Abillity Normal Visual Assistive Devices Glasses Teaching Assessment Preferences Verbal,Written, Demonstration Barriers to Learning None Readiness To Learn Good Willingness to Engage in Self Management Med Activies Readiness to Engage in Self Management Med Activities Anxiety Level Calm Cooperation Cooperative Perception Coherent Interest in Health Problem Asks Questions Education Importance Acknowledges Need Does Patient Smoke tobacco or other No substances Smoking Status Never smoker Is Patient Diabetic Yes Functional Assessment Recent Decline in Ability to Perform Bathing Assistive Device With Patient No Culture/Sabianist/Advertising Dispatch Clerks Supervisor Cultural/Sabianist Needs that may affect No Treatment Plan Would you allow our [facility] warble saw operator to No meet you for the purpose of spiritual/ emotional support? Advertising Dispatch Clerks Supervisor to contact place of scientologist No Teaching: Wound Center *Welcome to the Wound Center -Person Taught Patient,Family -Teaching Method Discussion, Demonstration -Response to teaching Verbalize Understanding (a) 1 - + throughout WC - Nurse 1 - General Ulcer Measurement Start: 08/02/24 14:58 Freq: Status: Active Protocol: Activity Type Activity Date Activity User E-sign Co-sign Detail Recorded Client Recorded Date Recorded By Document 08/02/24 14:58 ML [id number] 08/02/24 15:07 ML Document 08/09/24 14:50 KW [id number] 08/09/24 14:59 KW 08/02/24 08/09/24 14:58 14:50 Wound Center Nurse 1 left lower leg CLUSTER -Current Size (cm) - Length 0.1 0.1 -Current Size (cm) - Width 0.1 0.1 -Current Size (cm) - Depth 0.1 0.1 -Total Square Cm 0.01 0.01 -Date of Last Picture (Recall this 08/09/24 field) -Exudate Amt Medium None Present -Exudate Type Serosanguineous -Wound Margin Distinct, Outline Attached -Granulation Amt Medium (34-66%) -Slough/Fibrin Yes -Necrosis Amt Medium (34-66%) -Necrotic Tissue Type Adherent Slough -Texture (Wsetha-wound Skin Appearance) Assessed Assessed -Moisture (Swetha-wound Skin Appearance) Assessed -Color (Swetha-wound Skin Appearance) Hemosiderin Assessed Staining -Temperature (Swetha-wound Skin No Abnormality No Abnormality Appearance) (Pt Warm) (Pt Warm) -Tenderness on Palpation (Swetha-wound No No Skin Appearance) -Ulcer Cleansing Rinsed/ Rinsed/ Irrigated with Irrigated with Saline Saline -Foul Odor after Cleansing No No -Anesthetic Used 5% Lidocaine 5% Lidocaine Gel Gel Right Calf (cm) 43 Right Ankle (cm) 28 Left Calf (cm) 44.8 41.3 Left Ankle (cm) 26 24 - Nurse 2 - General Ulcer CM Notes Start: 08/02/24 14:58 Freq: Status: Active Protocol: Activity Type Activity Date Activity User E-sign Co-sign Detail Recorded Client Recorded Date Recorded By Document 08/02/24 15:53 DS [id number] 08/02/24 15:54 DS Document 08/09/24 15:47 DS [id number] 08/09/24 15:49 DS 08/02/24 08/09/24 15:53 15:47 Wound Center Nurse 2 left lower leg CLUSTER -Time 15:50 15:45 -Correct Patient Yes Yes -Correct Side, Site, Position Yes Yes -Correct Procedure Yes Yes -Procedure Performed Yes Yes -Type of Procedure Debridement Debridement -Clinical Debridement Subcutaneous Subcutaneous -Tissue Removed Subcutaneous Subcutaneous -Post Debridement (cm) - Length 5.5 2.0 -Post Debridement (cm) - Width 5.8 3.5 -Post Debridement (cm) - Depth 0.1 0.1 -Total Square (Post) (cm) 31.90 7.00 -Area of Debridement (cm) - Length 5.5 2.0 -Area of Debridement (cm) - Width 5.8 3.5 -Total Square (Area) (cm) 31.90 7.00 -Tunneling No No -Undermining/Tunneling No No -Circular Undermining No No -Wound/Ulcer Outcome Not Healed Not Healed -Ulcer Cleansing Rinsed/ Rinsed/ Irrigated with Irrigated with Saline Saline -Bioengineered Tissue No No -Bleeding Controlled with Pressure Pressure -Treatment Response Procedure Procedure Tolerated Well Tolerated Well -Debridement - Subq, 1st 20sq cm Yes Yes -Debridement, SubQ, ea addt'l 20sq cm 1 or part thereof Pain Scale: 0-10 Numeric Is Patient Pain Free? Yes Yes - Nurse 3 - General Ulcer D/C NN Start: 08/02/24 14:58 Freq: Status: Active Protocol: Activity Type Activity Date Activity User E-sign Co-sign Detail Recorded Client Recorded Date Recorded By Document 08/02/24 16:04 KW [id number] 08/02/24 16:05 KW Document 08/09/24 16:20 KW [id number] 08/09/24 16:22 KW 08/02/24 08/09/24 16:04 16:20 Wound Care Center Nurse 3 left lower leg CLUSTER -Primary Dressing Applied C Hydrogel ($) -Other Dressing HYDROGEL -Primary Dressing Covered/Secured with Dry Gauze,Dry Dry Gauze & Gauze & Roll Roll Gauze, Gauze,Secured Secured with with Tape Tape Right -Tubular Bandage Double Layer Double Layer -Size of Tubigrip Used Size F Size E -Size E ($) 2 -Size F ($) 2 Left -Tubular Bandage Double Layer Double Layer -Size of Tubigrip Used Size F Size E -Size E ($) 2 -Size F ($) 2 Vital Signs Pulse Rate (60-100) 79 Pulse Location Monitor Respiratory Rate (12-18) 18 Respiratory rate source Observation Oxygen Delivery Method Room Air O2 L/MIN 93 Blood Pressure (90/60-120/80) 155/77 H Blood Pressure Mean 103 Source Monitor Position Semi-Fowlers Blood Pressure Location Left Arm Pain Scale: 0-10 Numeric Is Patient Pain Free? Yes No Charges/Coding Procedures Integumentary [id number]: [id number] Yenifer subq tissue 20 sq cm/< Assessment/Plan Assessment/Plan (1) Venous ulcer of left leg: CODE(S): I83.029 - Varicose veins of left lower extremity with ulcer of unspecified site; L97.929 - Non-pressure chronic ulcer of unspecified part of left lower leg with unspecified severity (2) Venous hypertension, chronic, with ulcer and inflammation: CODE(S): I87.339 - Chronic venous hypertension (idiopathic) with ulcer and inflammation of unspecified lower extremity QUALIFIERS: Laterality: left Qualified Code(s): I87.332 - Chronic venous hypertension (idiopathic) with ulcer and inflammation of left lower extremity (3) Chronic venous insufficiency: CODE(S): I87.2 - Venous insufficiency (chronic) (peripheral) (4) Varicose veins of both legs with edema: CODE(S): I83.893 - Varicose veins of bilateral lower extremities with other complications (5) Swelling of left lower extremity: CODE(S): M79.89 - Other specified soft tissue disorders (6) Diabetes: CODE(S): E11.9 - Type 2 diabetes mellitus without complications QUALIFIERS: Diabetes mellitus type: type 2 (7) 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-39.9): CODE(S): E66.9 - Obesity, unspecified (8) Lower extremity edema: CODE(S): R60.0 - Localized edema (9) Dyslipidemia: CODE(S): E78.5 - Hyperlipidemia, unspecified (10) Hypertension: CODE(S): I10 - Essential (primary) hypertension (11) Hyperlipidemia: CODE(S): E78.5 - Hyperlipidemia, unspecified QUALIFIERS: Hyperlipidemia type: unspecified Qualified Code(s): E78.5 - Hyperlipidemia, unspecified (12) History of coronary artery stent placement: CODE(S): Z95.5 - Presence of coronary angioplasty implant and graft (13) History of ST elevation myocardial infarction (STEMI): CODE(S): I25.2 - Old myocardial infarction (14) Atherosclerotic heart disease of [place] coronary artery without angina pectoris: CODE(S): I25.10 - Atherosclerotic heart disease of [place] coronary artery without angina pectoris QUALIFIERS: [place] vs. transplanted heart: [place] heart Qualified Code(s): I25.10 - Atherosclerotic heart disease of [place] coronary artery without angina pectoris (15) 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 disease: CODE(S): I25.10 - Atherosclerotic heart disease of [place] coronary artery without angina pectoris (16) History of chronic CHF: CODE(S): Z86.79 - Personal history of other diseases of the circulatory system (17) Asthma: CODE(S): J45.909 - Unspecified asthma, uncomplicated QUALIFIERS: Asthma severity: mild Asthma persistence: intermittent Asthma complication type: uncomplicated Qualified Code(s): J45.20 - Mild intermittent asthma, uncomplicated (18) Closed fracture of T8 vertebra: CODE(S): S22.069A - Unspecified fracture of T7-T8 vertebra, initial encounter for closed fracture (19) Stented coronary artery: CODE(S): Z95.5 - Presence of coronary angioplasty implant and graft (20) KRISTI (obstructive sleep apnea): CODE(S): G47.33 - Obstructive sleep apnea (adult) (pediatric) (21) History of cholecystectomy: CODE(S): Z90.49 - Acquired absence of other specified parts of digestive tract (22) History of exploratory laparotomy: CODE(S): Z98.890 - Other specified postprocedural states (23) History of appendectomy: CODE(S): Z90.49 - Acquired absence of other specified parts of digestive tract (24) History of left knee surgery: CODE(S): Z98.890 - Other specified postprocedural states (25) History of vasectomy: CODE(S): Z98.52 - Vasectomy status (26) History of left heart catheterization: CODE(S): Z98.890 - Other specified postprocedural states (27) (HFpEF) heart failure with preserved ejection fraction: CODE(S): I50.30 - Unspecified diastolic (congestive) heart failure QUALIFIERS: Heart failure chronicity: chronic Qualified Code(s): I50.32 - Chronic diastolic (congestive) heart failure (28) Acute hypercapnic respiratory failure due to obstructive sleep apnea: CODE(S): J96.02 - Acute respiratory failure with hypercapnia; G47.33 - Obstructive sleep apnea (adult) (pediatric) (29) BPH (benign prostatic hyperplasia): CODE(S): N40.0 - Benign prostatic hyperplasia without lower urinary tract symptoms PLAN: Plan This is a 73-year-old male with a long history of chronic venous insufficiency, venous hypertension with inflammation and ulceration, and lower extremity swelling. He presented with a venous ulceration on the left lateral calf, associated with a significant amount of swelling and edema. The patient has been instructed in the appropriate conservative measures relative to his chronic venous disease. The patient is to elevate his lower extremities is much as possible. Elevation is to be to heart level, or higher, as much as possible. He has been encouraged to sleep on a flat mattress at night. Prolonged idle sitting has been discouraged. Activity and ambulation have been encouraged. Double layer Tubigrip's have been provided, and are to be donned on a daily basis. The patient has been provided with a prescription for graduated compression stockings of 20 to 30 mmHg compression, knee-high length. He has been advised to obtain the stockings at a local medical supply store with staff who can appropriately measure and fit the stockings. He has been advised to go early in the day, before significant swelling occurs. We are to continue the use of collagen hydrogel topically, which will be applied on a daily basis. The patient has been instructed in the appropriate means of application. The patient has been encouraged to reimplement the use of his mechanical pneumatic compression pumps, 2 or 3 times daily. The patient's granddaughter accompanied him to his visit today, and it is hoped that she will assist him in his medical care. The patient has been encouraged to optimize his diabetes control, as well as his nutritional intake. Because the patient's wound is now quite small, and nearly healed, he is to return in 2 weeks for reevaluation. The patient has brought attention to pain involving the pinna of his left ear. Inspection revealed no significant redness or fluctuance, and the patient has been counseled to seek further attention with his primary care physician or an ENT specialist should his symptoms persist. Total time: 25 minutes
--- NOTE | 2024-08-10 08:16 | WC ---
PHOTO 08/09/24 SAGAR
--- NOTE | 2024-08-10 08:17 | WC ---
PHOTO 08/09/24 SAGAR
[2024-08-10 15:49] LABS: Bedside Glucose 65 mg/dL (74-106)
[2024-08-10 15:49] LABS: Bedside Glucose 53 mg/dL (74-106)
== END 2024-08-13 23:59 | disposition home or self-care (01) ==
LOC: WC 14:30
PROVIDERS: PCP Family Medicine; Referring Provider Family Medicine; Visit Provider Surgery
DX: I87.332 Chronic venous hypertension (idiopathic) with ulcer and inflammation of left lower extremity (principal); L97.922 Non-pressure chronic ulcer of unspecified part of left lower leg with fat layer exposed; J96.02 Acute respiratory failure with hypercapnia; I11.0 Hypertensive heart disease with heart failure; I50.32 Chronic diastolic (congestive) heart failure; E11.40 Type 2 diabetes mellitus with diabetic neuropathy, unspecified; E11.59 Type 2 diabetes mellitus with other circulatory complications; J45.20 Mild intermittent asthma, uncomplicated; S22.06 Fracture of T7-T8 vertebra; E78.5 Hyperlipidemia, unspecified; I87.2 Venous insufficiency (chronic) (peripheral); N40.0 Benign prostatic hyperplasia without lower urinary tract symptoms; E66.9 Obesity, unspecified; I83.93 Asymptomatic varicose veins of bilateral lower extremities; G47.33 Obstructive sleep apnea (adult) (pediatric); Z68.37 Body mass index [BMI] 37.0-37.9, adult; I25.10 Atherosclerotic heart disease of native coronary artery without angina pectoris; Z95.5 Presence of coronary angioplasty implant and graft; Z82.3 Family history of stroke; Z90.49 Acquired absence of other specified parts of digestive tract; I25.2 Old myocardial infarction; Z86.79 Personal history of other diseases of the circulatory system; Z98.52 Vasectomy status
CPT/HCPCS: 11042; 11045; 82962; 99213; G0463

== ENCOUNTER 2024-08-23 14:38 | Outpatient (RCR) | payer MEDICARE, SELFPAY ==
[2024-05-06 07:26] VITALS: BMI 38.2
[2024-08-14 00:35] VITALS: BP 155/77; PULSE 79; RESP 18; TEMP 36.8; BMI 37.2
[2024-08-23 14:54] VITALS: BP 96/52; PULSE 83; RESP 16; TEMP 36.2; BMI 37.2
--- NOTE | 2024-08-23 16:45 | NURSING ---
length to knee: right - 44.2, left - 44.5
--- NOTE | 2024-08-23 21:34 | PCM.WC.HP ---
History of Present Illness Date of Service: 08/23/24 Chief Complaint: Venous ulceration, chronic venous insufficiency, venous hypertension with inflammation and ulceration - Left lower extremity History of Wound: This is a 73-year-old male who presented with an ulceration on the left lateral calf. The ulceration had been present for several weeks. The patient suffers from chronic swelling in his lower extremities bilaterally. He has had previous venous ulcerations in his lower extremities. A venous duplex examination performed on July 10, 2023, revealed incompetence of the right accessory saphenous vein in the mid thigh. The right great saphenous vein and small saphenous vein were competent. The left lower extremity venous system was not fully evaluated. The patient's most recent documented arterial study was performed in December 2021, which revealed no evidence of significant arterial occlusive disease in the lower extremities. The patient has previously undergone lower extremity venography, which revealed no evidence of significant venous outflow obstruction. He has mechanical pneumatic compression pumps at home, but has not recently been using them as directed. The patient was recently hospitalized at [facility] from May 06 to May 18, 2024, for acute respiratory failure with hypoxia and hypercarbia. As a prelude to his admission, the patient had fallen, suffering a vertebral fracture of the thoracic #8 vertebrae. During the course of the patient's recent hospital admission, the patient was treated for staph pneumonia. He was also treated for metabolic encephalopathy. He is , and currently lives with his granddaughter, who assists him in his daily needs. The patient is known to be diabetic, and suffers from multiple other pre-existing medical conditions, which are listed herein. His most recent hemoglobin A1c was 8.9. The patient is not active, spending a great deal of each day sitting in idle fashion. He sleeps in a recliner at night. He denies a history of thrombophlebitis. [facility] Medical History Swelling of left lower extremity KRISTI (obstructive sleep apnea) BPH (benign prostatic hyperplasia) Venous ulcer of left leg Venous hypertension, chronic, with ulcer and inflammation Chronic venous insufficiency 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-39.9) Acute respiratory failure with hypoxia and hypercarbia Fracture, thoracic vertebra Tinea cruris History of chronic CHF Varicose veins of both legs with edema Lower extremity edema 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 disease Carotid bruit Neck pain Shortness of breath Abnormal nuclear stress test Essential hypertension Inappropriate sexual behavior Hypomagnesemia Muscle cramps Edema Chronic diastolic (congestive) heart failure Atherosclerotic heart disease of [place] coronary artery without angina pectoris History of ST elevation myocardial infarction (STEMI) (07/11/17) Asthma IBS (irritable bowel syndrome) 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.9) Restless legs Hyperlipidemia Diabetes mellitus, type 2 Anxiety Home Medications ?Medication ?Instructions ?Recorded ?Last Taken ?Type metformin 1,000 mg tablet 1,000 mg PO BIDCM diabetes 01/17/16 01/25/24 History montelukast 10 mg tablet 10 mg PO QHS allergies 01/17/16 12/07/18 History acetaminophen 325 mg tablet 325 - 650 mg (1 - 2 x 325 mg) PO 07/14/17 Unknown Rx Q6H PRN PRN Pain aspirin 81 mg tablet,delayed 81 mg PO DAILY@0800 #30 tabs 07/14/17 01/26/24 Rx release pramipexole 1 mg tablet 2 mg PO QHS headache 05/07/18 12/08/18 21:00 History coenzyme Q10 100 mg capsule 100 mg PO DAILY supplement 12/08/18 12/04/18 History magnesium oxide 400 mg PO DAILY supplement 12/08/18 12/08/18 08:00 History fluticasone propionate 50 1 spray intranasal DAILY PRN nasal 04/05/20 Unknown History mcg/actuation nasal spray spray,suspension nitroglycerin 0.4 mg sublingual 0.4 mg sublingual Q5M PRN Angina 11/29/21 Unknown Rx tablet pain #25 tabs vitamin B complex 1 tab PO DAILY 03/14/22 Unknown History isosorbide mononitrate 30 mg 30 mg PO DAILY #90 tabs 07/05/23 Unknown Rx tablet,extended release 24 hr buspirone 10 mg tablet 20 mg PO BID Anxiety 08/20/23 Unknown History clopidogrel 75 mg tablet 75 mg PO DAILY #90 tabs 10/26/23 01/26/24 Rx albuterol sulfate 90 mcg/actuation 2 puff inhalation Q4H PRN 10/28/23 Unknown Rx aerosol inhaler (Ventolin HFA) shortness of breath or wheezing #18 grams clotrimazole-betamethasone 1 1 applic topical BID 4 weeks #45 11/17/23 Unknown Rx %-0.05 % topical cream grams carvedilol 25 mg tablet 25 mg PO BID #180 tabs 12/07/23 Unknown Rx cholecalciferol (vitamin D3) 50 2,000 unit PO DAILY supplement 12/07/23 Unknown History mcg (2,000 unit) capsule glyburide 1.25 mg tablet 1.25 mg PO BID 12/07/23 01/25/24 History omeprazole 40 mg capsule,delayed 40 mg PO BID 12/07/23 Unknown History release pravastatin 40 mg tablet 40 mg PO DAILY #90 TABLETS 02/09/24 Unknown Rx alprazolam 0.25 mg tablet 0.25 mg PO DAILY PRN anxiety 2 05/18/24 Unknown Rx days #7 tabs insulin NPH isoph U-100 human 100 See Rx Instructions .Route 05/18/24 Unknown Rx unit/mL subcutaneous suspension .COMPLEX diabetes 3 days #0 mL insulin lispro 100 unit/mL See Protocol subcut ACHS #0 mL 05/18/24 Unknown Rx subcutaneous pen (Humalog KwikPen (U-100) Insulin) tamsulosin 0.4 mg capsule 0.4 mg PO DAILY@1700 #0 caps 05/18/24 Unknown Rx furosemide 40 mg tablet 80 mg (2 x 40 mg) PO DAILY #270 06/01/24 Unknown Rx tabs metolazone 2.5 mg tablet 2.5 mg PO QDAY #90 tabs 07/28/24 Unknown Rx dapagliflozin propanediol 10 mg 10 mg PO QDAY #90 tabs 08/03/24 Unknown Rx tablet (Farxiga) evolocumab 140 mg/mL subcutaneous 140 mg subcut Q2W #6 mL 08/23/24 Unknown Rx pen injector (Repatha Francescoick) Allergy/AdvReac Type Severity Reaction Status Date / Time Penicillins Allergy Severe Anaphylaxis Verified 08/22/24 13:27 quinine sulfate (From Quine) Allergy Severe passed out Verified 08/22/24 13:27 benzocaine (From Cetacaine) Allergy Swelling Verified 08/22/24 13:27 butamben (From Cetacaine) Allergy Swelling Verified 08/22/24 13:27 ciprofloxacin HCl (From Allergy Hives Verified 08/22/24 13:27 Cipro) clarithromycin (From Biaxin) Allergy Swelling Verified 08/22/24 13:27 exenatide (From Byetta) Allergy Rash Verified 08/22/24 13:27 folic acid (From Allergy Rash Verified 08/22/24 13:27 Proferrin-Forte) hyoscyamine sulfate (From Allergy Rash Verified 08/22/24 13:27 Levsin) iron heme polypeptide (From Allergy tongue Verified 08/22/24 13:27 Proferrin-Forte) swelling naproxen (From Naprosyn) Allergy Rash Verified 08/22/24 13:27 tetracaine (From Cetacaine) Allergy throat Verified 08/22/24 13:27 swelled shut venlafaxine HCl (From Allergy tongue Verified 08/22/24 13:27 Effexor) swelling ezetimibe (From Zetia) AdvReac Severe Myalgias, Verified 08/22/24 13:27 diarrhea mold AdvReac Severe PT UNSURE Verified 08/22/24 13:27 OF REACTION niacin (From Niaspan AdvReac Severe PT UNSURE Verified 08/22/24 13:27 Extended-Release) OF REACTION procainamide AdvReac Severe Anaphylactic/Resp. Verified 08/22/24 13:27 Distress atorvastatin calcium (From AdvReac Intermediate Mylagias Verified 08/22/24 13:27 Lipitor) rosuvastatin calcium (From AdvReac Intermediate Myalgias Verified 08/22/24 13:27 Crestor) diphenhydramine HCl (From AdvReac Restlessnes Verified 08/22/24 13:27 Benadryl) s Family History Mother Diabetes Hypertension Father Hypotension Brother Hypertension HLD (hyperlipidemia) Grandmother Diabetes Grandfather CVA (cerebral vascular accident) Diabetes Brother Cancer lung Surgical History History of left knee surgery History of vasectomy History of appendectomy History of exploratory laparotomy History of cholecystectomy Stented coronary artery (~01/26/24) History of left heart catheterization (12/06/21) History of coronary artery stent placement (04/13/19) History of dental surgery Status post excision of lipoma Social History Smoking Status: Never smoker second hand exposure: No alcohol intake: never substance use type: does not use caffeine: No seatbelt use: always do you feel safe at home: Yes Vital Signs Vital Signs Vital Signs: 08/23/24 14:54 Temperature 97.1 F L Temperature Source Temporal Pulse Rate 83 Respiratory Rate 16 Blood Pressure 96/52 L Blood Pressure Mean 66 Blood Pressure Source Monitor Blood Pressure Position Semi-Fowlers Blood Pressure Location Right Arm Weight Weight: 245 lb Body Mass Index (BMI) 37.2 Physical Exam Const alert, oriented x3, no apparent distress, no limitations and well nourished Constitutional Narrative: The patient is obese, with a BMI of 37.2. General Appearance: cooperative, comfortable, well kempt and well developed Orientation / Consciousness: awake, oriented to person, oriented to place and oriented to time Exam Limitations: no limitations HEENT normocephalic and head/scalp atraumatic Head and Scalp: normal to inspection, normocephalic and atraumatic Face and Sinus: normal facial exam Nose: external nose normal External Ear: external ears normal Eyes EOMs intact bilaterally General Eye: normal appearance of both eyes Neck full ROM Resp normal respiratory effort, normal air movement, no retractions and no use of accessory muscles Effort and Inspection: able to speak in complete sentences Cardio regular rate and regular rhythm Extremity no calf tenderness General Extremity: Negative for clubbing or cyanosis Skin Wound Narrative: Lower extremities appear to be warm and well-perfused. Pedal pulses are easily audible by Doppler signal assessment. Slight swelling and edema are noted in the lower extremities bilaterally. Lipodermatosclerosis is also noted bilaterally in the gaiter areas. Scaly dermatitis is noted in the left gaiter area. The left lateral calf ulceration has completely healed and epithelialized. Neuro oriented x3, CN's II-XII intact bilaterally, moves all extremities, no focal motor deficits and no sensory deficits noted Sensorium / Orientation: awake, alert, oriented to person, oriented to place and oriented to time Speech: speech normal Psych Appearance: grossly normal and appropriate Attitude: calm Activity / Motor Behavior: appropriate eye contact Speech: normal speech Mood & Affect: euthymic mood Thought Process: normal thought process Thought Content: normal thought content Attention / Concentration: attention grossly intact Debridement Note Debridement Note No debridement was completed: No debridement was completed today (There are no open wounds or ulcerations.) Post-Debridement Measurements and Additional Note: Post-Debridement Measurements/Treatment WC - Nurse 1 - General Ulcer Assessment Start: 08/23/24 14:53 Freq: Status: Active Protocol: RAMSEY Activity Type Activity Date Activity User E-sign Co-sign Detail Recorded Client Recorded Date Recorded By Document 08/23/24 14:54 CASI [id number] 08/23/24 15:01 08/23/24 14:54 - Today's Visit Information Type of service Follow-up Visit (Physician/[facility] NURSE ) Arrival Mode Ambulatory Patient Identification Verified (Name & Yes ) Patient Requires Transmission-Based No Precautions Finger Stick Blood Sugar(mg/dl) (if 134 indicated): Blood Sugar Stated by Patient Height and Weight Body Mass Index (BMI) 37.2 BMI Classification Obese Vital Signs Temperature (97.8 F-99.1 F) 97.1 F L Temperature Source Temporal Pulse Rate (60-100) 83 Pulse Location Monitor Respiratory Rate (12-18) 16 Respiratory rate source Observation Blood Pressure (90/60-120/80) 96/52 L Blood Pressure Mean 66 Source Monitor Position Semi-Fowlers Blood Pressure Location Right Arm History Since Last Visit- (Skip if this is Patient's initial visit) Have you changed medications since your No last visit? Any new allergies or adverse reactions No Had a fall/change in ADL's that may No increase risk of falls Signs or symptoms of abuse and/or No neglect since last visit Have you been in the hospital since your No last visit? Has dressing in place as prescribed Yes Has compression in place as prescribed Yes Has offloadiing in place as prescribed N/A Experienced any changes in pain level or No management Left Footwear Regular Shoe Right Footwear Regular Shoe Pain Scale: 0-10 Numeric Is Patient Pain Free? Yes - Nurse 1 - General Ulcer Measurement Start: 08/23/24 14:53 Freq: Status: Active Protocol: Activity Type Activity Date Activity User E-sign Co-sign Detail Recorded Client Recorded Date Recorded By Document 08/23/24 14:54 CASI [id number] 08/23/24 15:01 Document 08/23/24 16:44 DS [id number] 08/23/24 16:45 DS 08/23/24 08/23/24 14:54 16:44 Wound Center Nurse 1 left lower leg CLUSTER -Combined with other wound No -Current Size (cm) - Length 0.1 -Current Size (cm) - Width 0.1 -Current Size (cm) - Depth 0.1 -Total Square Cm 0.01 -Photo Taken Yes Lower Limb Edema Present NA Right Calf (cm) 44.6 Right Ankle (cm) 26.8 Left Calf (cm) 42.5 43.2 Left Ankle (cm) 25.5 25.6 08/23/24 16:45 Nursing Note by Rocío Brown length to knee: right - 44.2, left - 44.5 Initialized on 08/23/24 16:45 - END OF NOTE WC - Nurse 2 - General Ulcer CM Notes Start: 08/23/24 14:53 Freq: Status: Active Protocol: Activity Type Activity Date Activity User E-sign Co-sign Detail Recorded Client Recorded Date Recorded By Document 08/23/24 15:12 DS [id number] 08/23/24 15:12 DS 08/23/24 15:12 Wound Center Nurse 2 left lower leg CLUSTER -Time 15:10 -Correct Patient Yes -Procedure Performed No -Wound/Ulcer Outcome Healed- Epithelialized Pain Scale: 0-10 Numeric Is Patient Pain Free? Yes - Nurse 3 - General Ulcer D/C NN Start: 08/23/24 14:53 Freq: Status: Active Protocol: Activity Type Activity Date Activity User E-sign Co-sign Detail Recorded Client Recorded Date Recorded By Document 08/23/24 15:36 RB [id number] 08/23/24 15:38 RB 08/23/24 15:36 Wound Care Center Nurse 3 Right -Other tubigrip double layer Left -Other tubigrip double layer Treatment Response Procedure Tolerated Well Pain Scale: 0-10 Numeric Is Patient Pain Free? Yes - Visit Discharge Discharge Condition Stable Ambulatory Status Ambulatory Transportation Private Auto Medication Reconcilliation completed & No provided to patient/care provider Clinical Summary of Care Provided Yes Notes: left calf 43.2 ankle 25.6 length to heel 44.5 right calf 44.6 ankle 26.8 length 44.2 Charges/Coding Visit Charges Office Visits / Consults: [id number] OV L3 Est 20min Assessment/Plan Assessment/Plan (1) Venous ulcer of left leg: CODE(S): I83.029 - Varicose veins of left lower extremity with ulcer of unspecified site; L97.929 - Non-pressure chronic ulcer of unspecified part of left lower leg with unspecified severity (2) Venous hypertension, chronic, with ulcer and inflammation: CODE(S): I87.339 - Chronic venous hypertension (idiopathic) with ulcer and inflammation of unspecified lower extremity QUALIFIERS: Laterality: left Qualified Code(s): I87.332 - Chronic venous hypertension (idiopathic) with ulcer and inflammation of left lower extremity (3) Chronic venous insufficiency: CODE(S): I87.2 - Venous insufficiency (chronic) (peripheral) (4) Varicose veins of both legs with edema: CODE(S): I83.893 - Varicose veins of bilateral lower extremities with other complications (5) Swelling of left lower extremity: CODE(S): M79.89 - Other specified soft tissue disorders (6) Diabetes: CODE(S): E11.9 - Type 2 diabetes mellitus without complications QUALIFIERS: Diabetes mellitus type: type 2 (7) 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-39.9): CODE(S): E66.9 - Obesity, unspecified (8) Lower extremity edema: CODE(S): R60.0 - Localized edema (9) Dyslipidemia: CODE(S): E78.5 - Hyperlipidemia, unspecified (10) Hypertension: CODE(S): I10 - Essential (primary) hypertension (11) Hyperlipidemia: CODE(S): E78.5 - Hyperlipidemia, unspecified QUALIFIERS: Hyperlipidemia type: unspecified Qualified Code(s): E78.5 - Hyperlipidemia, unspecified (12) History of coronary artery stent placement: CODE(S): Z95.5 - Presence of coronary angioplasty implant and graft (13) History of ST elevation myocardial infarction (STEMI): CODE(S): I25.2 - Old myocardial infarction (14) Atherosclerotic heart disease of [place] coronary artery without angina pectoris: CODE(S): I25.10 - Atherosclerotic heart disease of [place] coronary artery without angina pectoris QUALIFIERS: [place] vs. transplanted heart: [place] heart Qualified Code(s): I25.10 - Atherosclerotic heart disease of [place] coronary artery without angina pectoris (15) 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 disease: CODE(S): I25.10 - Atherosclerotic heart disease of [place] coronary artery without angina pectoris (16) History of chronic CHF: CODE(S): Z86.79 - Personal history of other diseases of the circulatory system (17) Asthma: CODE(S): J45.909 - Unspecified asthma, uncomplicated QUALIFIERS: Asthma severity: mild Asthma persistence: intermittent Asthma complication type: uncomplicated Qualified Code(s): J45.20 - Mild intermittent asthma, uncomplicated (18) Closed fracture of T8 vertebra: CODE(S): S22.069A - Unspecified fracture of T7-T8 vertebra, initial encounter for closed fracture (19) Stented coronary artery: CODE(S): Z95.5 - Presence of coronary angioplasty implant and graft (20) KRISTI (obstructive sleep apnea): CODE(S): G47.33 - Obstructive sleep apnea (adult) (pediatric) (21) History of cholecystectomy: CODE(S): Z90.49 - Acquired absence of other specified parts of digestive tract (22) History of exploratory laparotomy: CODE(S): Z98.890 - Other specified postprocedural states (23) History of appendectomy: CODE(S): Z90.49 - Acquired absence of other specified parts of digestive tract (24) History of left knee surgery: CODE(S): Z98.890 - Other specified postprocedural states (25) History of vasectomy: CODE(S): Z98.52 - Vasectomy status (26) History of left heart catheterization: CODE(S): Z98.890 - Other specified postprocedural states (27) (HFpEF) heart failure with preserved ejection fraction: CODE(S): I50.30 - Unspecified diastolic (congestive) heart failure QUALIFIERS: Heart failure chronicity: chronic Qualified Code(s): I50.32 - Chronic diastolic (congestive) heart failure (28) Acute hypercapnic respiratory failure due to obstructive sleep apnea: CODE(S): J96.02 - Acute respiratory failure with hypercapnia; G47.33 - Obstructive sleep apnea (adult) (pediatric) (29) BPH (benign prostatic hyperplasia): CODE(S): N40.0 - Benign prostatic hyperplasia without lower urinary tract symptoms PLAN: Plan This is a 73-year-old male with a long history of chronic venous insufficiency, venous hypertension with inflammation and ulceration, and lower extremity swelling. He presented with a venous ulceration on the left lateral calf, associated with a significant amount of swelling and edema. The patient has been instructed in the appropriate conservative measures relative to his chronic venous disease. The patient is to elevate his lower extremities is much as possible. Elevation is to be to heart level, or higher, as much as possible. He has been encouraged to sleep on a flat mattress at night. Prolonged idle sitting has been discouraged. Activity and ambulation have been encouraged. The patient's left lateral calf ulceration is now completely healed and epithelialized. Given the patient's long history of chronic venous disease, swelling and edema, and prior episodes of venous stasis ulcerations, it is recommended that the patient implement some form of long-term compression to his lower extremities. We have discussed the options in this regard. Unfortunately, the patient does not feel as though he will be able to don and doff standard graduated compression stockings of a degree of compression necessary. Therefore, we are to assist him in obtaining CircAid Velcro compression garments. Measurements have been taken of the patient's lower extremity circumferences and length, and will be submitted to a [employer] company for these compression garments. The patient has also been advised to seek podiatric consultation to assist him in trimming his toenails, which are quite in need of maintenance. The patient is known to possess pneumatic mechanical compression pumps, and he has been urged to resume use twice or 3 times daily. The patient has once again been encouraged to optimize his diabetes control. The patient is to be discharged, and will follow-up henceforth on an as-needed basis. Total time: 25 minutes
--- NOTE | 2024-08-24 12:16 | WC ---
PHOTO LEFT LEG CLUSTER 08/23/24
== END 2024-09-05 15:21 | disposition home or self-care (01) ==
LOC: WC 14:38
PROVIDERS: PCP Family Medicine; Referring Provider Family Medicine; Visit Provider Surgery
DX: I87.322 Chronic venous hypertension (idiopathic) with inflammation of left lower extremity (principal); L97.929 Non-pressure chronic ulcer of unspecified part of left lower leg with unspecified severity; S22.069A Unspecified fracture of T7-T8 vertebra, initial encounter for closed fracture; J96.02 Acute respiratory failure with hypercapnia; I11.0 Hypertensive heart disease with heart failure; I50.32 Chronic diastolic (congestive) heart failure; E11.59 Type 2 diabetes mellitus with other circulatory complications; E66.9 Obesity, unspecified; G93.41 Metabolic encephalopathy; I87.2 Venous insufficiency (chronic) (peripheral); N40.0 Benign prostatic hyperplasia without lower urinary tract symptoms; Z95.5 Presence of coronary angioplasty implant and graft; Z68.37 Body mass index [BMI] 37.0-37.9, adult; J45.20 Mild intermittent asthma, uncomplicated; I83.93 Asymptomatic varicose veins of bilateral lower extremities; I25.10 Atherosclerotic heart disease of native coronary artery without angina pectoris; Z82.3 Family history of stroke; G47.33 Obstructive sleep apnea (adult) (pediatric); E78.5 Hyperlipidemia, unspecified; M79.89 Other specified soft tissue disorders; Z86.79 Personal history of other diseases of the circulatory system; Z90.49 Acquired absence of other specified parts of digestive tract; Z98.52 Vasectomy status; I25.2 Old myocardial infarction
CPT/HCPCS: 99213; G0463

== ENCOUNTER → 2024-09-02 | Outpatient (CLI) | payer MEDICARE, SELFPAY ==
[2024-05-06 07:26] VITALS: BMI 38.2
[2024-09-02 10:50] LABS: Anion Gap 5 (5-15); BUN 24 mg/dL (7-18); BUN/Creat Ratio 23.1 RATIO (10-20); Calcium,Total 9.3 mg/dL (8.5-10.1); Chloride 87 mmol/L (98-107); Creatinine, Serum 1.04 mg/dL (0.70-1.30); EST Glomerular Filtration Rate 74 mL/min (>60); Est Glom Filt Rate - Afr Amer 90 mL/min (>60); Glucose 114 mg/dL (74-106); Sodium Level 127 mmol/L (136-145)
== END | disposition home or self-care (01) ==
PROVIDERS: PCP Family Medicine; Referring Provider Physician Assistant Medical; Visit Provider Physician Assistant Medical
DX: R06.02 Shortness of breath (principal)
CPT/HCPCS: 36415; 80048

== ENCOUNTER → 2024-09-10 | Outpatient (CLI) | payer MEDICARE, SELFPAY ==
[2024-05-06 07:26] VITALS: BMI 38.2
[2024-09-10 09:30] LABS: Anion Gap 4 (5-15); BUN 26 mg/dL (7-18); BUN/Creat Ratio 19.3 RATIO (10-20); Chloride 93 mmol/L (98-107); Creatinine, Serum 1.35 mg/dL (0.70-1.30); EST Glomerular Filtration Rate 55 mL/min (>60); Est Glom Filt Rate - Afr Amer 67 mL/min (>60); Glucose 69 mg/dL (74-106); Potassium 3.7 mmol/L (3.5-5.1); Sodium Level 136 mmol/L (136-145)
== END | disposition home or self-care (01) ==
LOC: LAB 08:32
PROVIDERS: PCP Family Medicine; Referring Provider Internal Medicine Cardiovascular Disease; Visit Provider Internal Medicine Cardiovascular Disease
DX: E11.9 Type 2 diabetes mellitus without complications (principal); R06.09 Other forms of dyspnea; I10 Essential (primary) hypertension; R60.0 Localized edema
CPT/HCPCS: 36415; 80048

== ENCOUNTER → 2024-09-26 | Outpatient (CLI) | payer MEDICARE, SELFPAY ==
[2024-05-06 07:26] VITALS: BMI 38.2
--- NOTE | 2024-09-26 09:28 | RAD_ITS ---
EXAM: XR THORACIC SPINE, 3 VIEWS CLINICAL INDICATION: T 8 FX FOLLOW UP TECHNIQUE: Frontal, lateral and swimmer''s views of the thoracic spine. COMPARISON: No relevant prior studies available. FINDINGS: VERTEBRAE: No significant loss of vertebral body height seen on this examination. Any known or previous fractures involving T8 can be better evaluated with CT. No spondylolisthesis. Preservation of the normal thoracic kyphosis. No significant facet arthropathy. No other unusual lytic or sclerotic lesions of bone. DISC SPACES: Multilevel spine degenerative changes. SOFT TISSUES: Soft tissues unremarkable. RAD/Thoracic Spine 3 Views IMPRESSION: No significant loss of vertebral body height seen on this examination. Any known or previous fractures involving T8 can be better evaluated with CT. Electronically Signed: Vivek Santiago MD at 12:57 EST ,
[2024-09-26 10:28] LABS: Anion Gap 2 (5-15); BUN 27 mg/dL (7-18); BUN/Creat Ratio 24.5 RATIO (10-20); Calcium,Total 9.2 mg/dL (8.5-10.1); Chloride 102 mmol/L (98-107); EST Glomerular Filtration Rate 70 mL/min (>60); Est Glom Filt Rate - Afr Amer 84 mL/min (>60); Glucose 187 mg/dL (74-106); Potassium 4.3 mmol/L (3.5-5.1); Sodium Level 139 mmol/L (136-145)
== END | disposition home or self-care (01) ==
LOC: LAB 09:07
PROVIDERS: Physician Assistant Medical; PCP Family Medicine; Referring Provider Family Medicine; Visit Provider Family Medicine
DX: S22.069A Unspecified fracture of T7-T8 vertebra, initial encounter for closed fracture (principal)
CPT/HCPCS: 36415; 72072; 80048

== ENCOUNTER 2024-10-09 12:28 | Emergency (ER) | payer MEDICARE, SELFPAY ==
[2024-05-06 07:26] VITALS: BMI 38.2
[2024-10-09 12:29] VITALS: BP 120/71; PULSE 82; RESP 16; TEMP 36.6; O2SAT 100; BMI 17.7
[2024-10-09 12:53] LABS: Bedside Glucose 145 mg/dL (74-106)
[2024-10-09] MEDS: Diphth,Pertuss(Acell),Tet Vac 0.5 ML Vial IM (13:05)
[2024-10-09] MEDS: fentaNYL 100 MCG/2 ML Ampul 50 MCG IV (13:05)
--- NOTE | 2024-10-09 13:40 | RAD_ITS ---
EXAM: XR RIGHT FOOT COMPLETE, 3 OR MORE VIEWS CLINICAL INDICATION: Nail in foot TECHNIQUE: Frontal, lateral and oblique views of the right foot. COMPARISON: No relevant prior studies available. FINDINGS: BONES/JOINTS: Calcaneal spur. No acute fracture. No subluxation. Normal alignment. Preservation of the joint space. No sclerotic or destructive changes observed. SOFT TISSUES: Unremarkable. No soft tissue swelling or gas. No radiopaque foreign body. RAD/Foot min 3 Views IMPRESSION: No acute findings in the right foot. Electronically Signed: Lloyd Molina MD at 14:21 EST ,
[2024-10-09 14:35] VITALS: BP 137/69; PULSE 82; RESP 17; O2SAT 95
--- NOTE | 2024-10-09 15:35 | EX.ED.DYSGE1 ---
HPI History of Present Illness Chief Complaint: Foreign Body Narrative Narrative: Chief complaint and HPI: Nail puncture. 74-year-old male with past medical history of diabetes, chronic hypoxic respiratory failure, HTN, HLD, HFpEF presents for evaluation of nail puncture. Patient states that he went outside to urinate when he accidentally stepped on a wooden board with brenna nails. One of the nails went into his right shoe and foot. EMS was called and patient brought to the emergency department. Unknown last tetanus but thinks it was likely 8 years ago. Review of systems: See HPI Medications: As listed on the chart Allergies: As listed on the chart PFSH: Per chart Vital signs: As listed on the chart. Reviewed. Physical exam: Gen: A&O x3, NAD Head: Normocephalic, atraumatic Eyes: No sclera icterus, conjunctiva clear ENT: Moist mucous membranes CV: Regular rate Resp: Nonlabored respiration, on baseline 2 L nasal cannula Musc: Patient has a small wooden board attached to his right shoe with a nail sticking out from the board into his shoe/foot. After nail was removed, shoe was taken off. Patient has a small puncture wound to the plantar surface of the proximal foot. No deformity. No erythema or purulence. Mildly tender to palpation. DP/PT pulses +2. Sensation intact. Good capillary refill. Compartments soft. Neuro: Alert, oriented, grossly intact, sensation intact Psych: Cooperative, appropriate mood and affect [facility] Medical History Swelling of left lower extremity KRISTI (obstructive sleep apnea) BPH (benign prostatic hyperplasia) Venous ulcer of left leg Venous hypertension, chronic, with ulcer and inflammation Chronic venous insufficiency 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-39.9) Acute respiratory failure with hypoxia and hypercarbia Fracture, thoracic vertebra Tinea cruris History of chronic CHF Varicose veins of both legs with edema Lower extremity edema 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 disease Carotid bruit Neck pain Shortness of breath Abnormal nuclear stress test Essential hypertension Inappropriate sexual behavior Hypomagnesemia Muscle cramps Edema Chronic diastolic (congestive) heart failure Atherosclerotic heart disease of [place] coronary artery without angina pectoris History of ST elevation myocardial infarction (STEMI) (07/11/17) Asthma IBS (irritable bowel syndrome) 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.9) Restless legs Hyperlipidemia Diabetes mellitus, type 2 Anxiety Home Medications ?Medication ?Instructions ?Recorded ?Last Taken ?Type metformin 1,000 mg tablet 1,000 mg PO BIDCM diabetes 01/17/16 01/25/24 History montelukast 10 mg tablet 10 mg PO QHS allergies 01/17/16 12/07/18 History acetaminophen 325 mg tablet 325 - 650 mg (1 - 2 x 325 mg) PO 07/14/17 Unknown Rx Q6H PRN PRN Pain aspirin 81 mg tablet,delayed 81 mg PO DAILY@0800 #30 tabs 07/14/17 01/26/24 Rx release pramipexole 1 mg tablet 2 mg PO QHS headache 05/07/18 12/08/18 21:00 History coenzyme Q10 100 mg capsule 100 mg PO DAILY supplement 12/08/18 12/04/18 History magnesium oxide 400 mg PO DAILY supplement 12/08/18 12/08/18 08:00 History fluticasone propionate 50 1 spray intranasal DAILY PRN nasal 04/05/20 Unknown History mcg/actuation nasal spray spray,suspension nitroglycerin 0.4 mg sublingual 0.4 mg sublingual Q5M PRN Angina 11/29/21 Unknown Rx tablet pain #25 tabs vitamin B complex 1 tab PO DAILY 03/14/22 Unknown History isosorbide mononitrate 30 mg 30 mg PO DAILY #90 tabs 07/05/23 Unknown Rx tablet,extended release 24 hr buspirone 10 mg tablet 20 mg PO BID Anxiety 08/20/23 Unknown History albuterol sulfate 90 mcg/actuation 2 puff inhalation Q4H PRN 10/28/23 Unknown Rx aerosol inhaler (Ventolin HFA) shortness of breath or wheezing #18 grams clotrimazole-betamethasone 1 1 applic topical BID 4 weeks #45 11/17/23 Unknown Rx %-0.05 % topical cream grams carvedilol 25 mg tablet 25 mg PO BID #180 tabs 12/07/23 Unknown Rx cholecalciferol (vitamin D3) 50 2,000 unit PO DAILY supplement 12/07/23 Unknown History mcg (2,000 unit) capsule glyburide 1.25 mg tablet 1.25 mg PO BID 12/07/23 01/25/24 History omeprazole 40 mg capsule,delayed 40 mg PO BID 12/07/23 Unknown History release alprazolam 0.25 mg tablet 0.25 mg PO DAILY PRN anxiety 2 05/18/24 Unknown Rx days #7 tabs insulin NPH isoph U-100 human 100 See Rx Instructions .Route 05/18/24 Unknown Rx unit/mL subcutaneous suspension .COMPLEX diabetes 3 days #0 mL insulin lispro 100 unit/mL See Protocol subcut ACHS #0 mL 05/18/24 Unknown Rx subcutaneous pen (Humalog KwikPen (U-100) Insulin) tamsulosin 0.4 mg capsule 0.4 mg PO DAILY@1700 #0 caps 05/18/24 Unknown Rx dapagliflozin propanediol 10 mg 10 mg PO QDAY #90 tabs 08/03/24 Unknown Rx tablet (Farxiga) evolocumab 140 mg/mL subcutaneous 140 mg subcut Q2W #6 mL 08/23/24 Unknown Rx pen injector (Repatha SureClick) metolazone 2.5 mg tablet 2.5 mg PO .COMPLEX #90 tabs 09/12/24 Unknown Rx furosemide 40 mg tablet 80 mg PO .COMPLEX 09/16/24 Unknown History clopidogrel 75 mg tablet 75 mg PO DAILY awaiting mail order 09/20/24 Unknown Rx RX, out of med #30 tabs pravastatin 40 mg tablet 40 mg PO DAILY #90 TABLETS 09/27/24 Unknown Rx clindamycin HCl 300 mg capsule 300 mg PO Q6H 7 days #28 CAPSULES 10/09/24 Unknown Rx (Cleocin HCl) levofloxacin 750 mg tablet 750 mg PO DAILY 7 days #7 tabs 10/09/24 Unknown Rx Allergy/AdvReac Type Severity Reaction Status Date / Time Penicillins Allergy Severe Anaphylaxis Verified 10/09/24 12:31 quinine sulfate (From Quine) Allergy Severe passed out Verified 10/09/24 12:31 benzocaine (From Cetacaine) Allergy Swelling Verified 10/09/24 12:31 butamben (From Cetacaine) Allergy Swelling Verified 10/09/24 12:31 ciprofloxacin HCl (From Allergy Hives Verified 10/09/24 12:31 Cipro) clarithromycin (From Biaxin) Allergy Swelling Verified 10/09/24 12:31 exenatide (From [place]) Allergy Rash Verified 10/09/24 12:31 folic acid (From Allergy Rash Verified 10/09/24 12:31 Proferrin-Forte) hyoscyamine sulfate (From Allergy Rash Verified 10/09/24 12:31 Levsin) iron heme polypeptide (From Allergy tongue Verified 10/09/24 12:31 Proferrin-Forte) swelling naproxen (From Naprosyn) Allergy Rash Verified 10/09/24 12:31 tetracaine (From Cetacaine) Allergy throat Verified 10/09/24 12:31 swelled shut venlafaxine HCl (From Allergy tongue Verified 10/09/24 12:31 Effexor) swelling ezetimibe (From Zetia) AdvReac Severe Myalgias, Verified 10/09/24 12:31 diarrhea mold AdvReac Severe PT UNSURE Verified 10/09/24 12:31 OF REACTION niacin (From Niaspan AdvReac Severe PT UNSURE Verified 10/09/24 12:31 Extended-Release) OF REACTION procainamide AdvReac Severe Anaphylactic/Resp. Verified 10/09/24 12:31 Distress atorvastatin calcium (From AdvReac Intermediate Mylagias Verified 10/09/24 12:31 Lipitor) rosuvastatin calcium (From AdvReac Intermediate Myalgias Verified 10/09/24 12:31 Crestor) diphenhydramine HCl (From AdvReac Restlessnes Verified 10/09/24 12:31 Benadryl) s Family History Mother Diabetes Hypertension Father Hypotension Brother Hypertension HLD (hyperlipidemia) Grandmother Diabetes Grandfather CVA (cerebral vascular accident) Diabetes Brother Cancer lung Surgical History History of left knee surgery History of vasectomy History of appendectomy History of exploratory laparotomy History of cholecystectomy Stented coronary artery (~01/26/24) History of left heart catheterization (12/06/21) History of coronary artery stent placement (04/13/19) History of dental surgery Status post excision of lipoma Social History Smoking Status: Never smoker second hand exposure: No alcohol intake: never substance use type: does not use caffeine: No seatbelt use: always do you feel safe at home: Yes EXAM Physical Exam Const Vital Signs: 10/09/24 12:29 10/09/24 12:32 10/09/24 14:35 Temperature 98 F Temperature Source Oral Pulse Rate 82 82 Respiratory Rate 16 17 Respiratory Effort Normal Non-Labored Blood Pressure 120/71 137/69 H Blood Pressure Mean 87 91 Pulse Ox 100 95 Oxygen Delivery Method Nasal Cannula Room Air Oxygen Flow Rate (L/min) 2 10/09/24 15:45 Temperature 98.4 F Temperature Source Pulse Rate 64 Respiratory Rate 18 Respiratory Effort Blood Pressure 134/72 H Blood Pressure Mean 92 Pulse Ox 99 Oxygen Delivery Method Oxygen Flow Rate (L/min) MDM MDM MDM Narrative Medical decision making narrative: 74-year-old male with past medical history of diabetes, chronic hypoxic respiratory failure, HTN, HLD, HFpEF presents for evaluation of nail puncture. Patient presents with a small wooden board attached to his right shoe with a nail sticking out from the board into his shoe/foot. This will need to be removed. IV was placed and patient was given fentanyl. Nail was removed by direct force/traction. Patient tolerated this well. She was taken off. See physical exam. He has a small puncture wound to the plantar surface of the proximal foot. X-ray will be obtained to rule out fracture. Tetanus updated puncture wound was irrigated with iodine and saline copiously. Bacitracin was applied. Wound was dressed. X-ray of the right foot was personally reviewed by me, ED physician. No dislocation or fracture. No foreign object. Patient was able to ambulate without difficulty. Given that patient is diabetic as well as that the nail went through the shoe concern is for development of infection especially with Pseudomonas. Patient has multiple antibiotic allergies. Given this I consulted with pharmacy. Patient was ultimately discharged home on 7-day course of clindamycin as well as 7-day course of levofloxacin. 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 Monitor for signs of infection. Return precautions explained. He confirmed understanding of the plan. Impression: 1. Metal nail puncture wound through shoe/right foot, status post nail removal 2. History of diabetes Lab Data Labs: Laboratory Results - last 24 hr 10/09/24 12:34 POC Glucose 145 H Radiography Diagnostic Testing: Clinical Impression(s) from Imaging Studies Foot X-Ray 10/09/24 13:40 IMPRESSION: No acute findings in the right foot. Electronically Signed: Lloyd Molina MD at 14:21 EST , Discharge Plan Triage Chief Complaint: Foreign Body ED Provider: Anuel Colon Dx/Rx/DC Orders Clinical Impression: Puncture wound of skin from metal nail Instructions: ED Puncture Wound (General) Prescriptions: New clindamycin HCl [Cleocin HCl] 300 mg capsule 300 mg PO Q6H 7 Days Qty: 28 0RF levofloxacin 750 mg tablet 750 mg PO DAILY 7 Days Qty: 7 0RF No Action buspirone 10 mg tablet 20 mg PO BID vitamin B complex Tablet 1 tab PO DAILY nitroglycerin 0.4 mg tablet, sublingual 0.4 mg SUBLINGUAL Q5M PRN (Reason: Angina pain) Qty: 25 3RF omeprazole 40 mg capsule,delayed release(DR/EC) 40 mg PO BID glyburide 1.25 mg tablet 1.25 mg PO BID carvedilol 25 mg tablet 25 mg PO BID Qty: 180 3RF Rx Instructions: must administer with a meal/food clotrimazole-betamethasone 1-0.05 % cream 1 applic topical BID 28 Days Qty: 45 1RF furosemide 40 mg tablet 80 mg PO .COMPLEX Rx Instructions: 80 mg orally; takes 80mg in the am and 40mg in the afternoon metformin 1,000 MG tablet 1,000 mg PO BIDCM montelukast 10 MG tablet 10 mg PO QHS pramipexole 1 mg tablet 2 mg PO QHS Patient Comments: 1 mg PO 2 tablets by mouth at bedtime Rx Instructions: 1 mg PO 2 tablets by mouth at bedtime fluticasone propionate 50 mcg/actuation spray,suspension 1 spray INTRANASAL DAILY PRN (Reason: nasal spray) acetaminophen 325 MG tablet 325 - 650 mg PO Q6H PRN PRN (Reason: Pain) 0RF aspirin 81 MG tablet 81 mg PO DAILY@0800 Qty: 30 0RF magnesium oxide 400 MG tablet 400 mg PO DAILY coenzyme Q10 100 MG capsule 100 mg PO DAILY cholecalciferol (vitamin D3) 50 mcg (2,000 unit) capsule 2,000 unit PO DAILY insulin lispro [Humalog KwikPen Insulin] 100 unit/mL Insulin Pen See Protocol subcut ACHS Qty: 0 0RF Protocol: 4. Sliding Scale Insulin High-Med Dosing Condition: 150-199 mg/dl = 2 units Condition: 200-259 mg/dl = 4 units Condition: 260-324 mg/dl = 6 units Condition: 325-374 mg/dl = 8 units Condition: 375-409 mg/dl = 10 units Condition: 410-449 mg/dl = 11 units Condition: Greater than 449 call physician Protocol Text: Suggested for: - Patients on Total Daily Insulin Dose of 56-80 units - Patient who are known to be insulin resistant or septic HIGH MEDIUM DOSING ALGORITHM tamsulosin 0.4 mg Capsule 0.4 mg PO DAILY@1700 Qty: 0 0RF alprazolam 0.25 mg tablet 0.25 mg PO DAILY PRN (Reason: anxiety) 2 Days Qty: 7 0RF Patient Comments: for anxiety insulin NPH isoph U-100 human 100 unit/mL suspension See Rx Instructions .ROUTE .COMPLEX 3 Days Qty: 0 0RF Rx Instructions: subcutaneously; 50 units in am, 40 units in hs; Hold if glucose less than 130 mg/dl isosorbide mononitrate 30 mg tablet extended release 24 hr 30 mg PO DAILY Qty: 90 3RF albuterol sulfate [Ventolin HFA] 90 mcg/actuation HFA aerosol inhaler 2 puff INHALATION Q4H PRN (Reason: shortness of breath or wheezing) Qty: 18 6RF dapagliflozin propanediol [Farxiga] 10 mg tablet 10 mg PO QDAY Qty: 90 3RF Repatha SureClick 140 mg/mL pen injector 140 mg subcut Q2W Qty: 6 3RF metolazone 2.5 mg tablet 2.5 mg PO .COMPLEX Qty: 90 3RF Rx Instructions: 2.5 mg orally Thursday and ; clopidogrel 75 mg tablet 75 mg PO DAILY Qty: 30 0RF pravastatin 40 mg tablet 40 mg PO DAILY Qty: 90 3RF Primary Care Provider: Maya Pradhan Referrals: Maya Pradhan DO [Primary Care Provider] - 3-5 Days Activity Restrictions/Additional Instructions: Call your primary care physician tomorrow to make an appointment. Call your speech and drama teacher tomorrow to make an appointment. Monitor for signs of infection. Return back to the ED if symptoms change or worsen. Take all of your antibiotics prescribed. Print Language: Kosovan Disposition Disposition: Home, Self Care Discharge Date/Time: 10/09/24 15:46
[2024-10-09 15:45] VITALS: BP 134/72; PULSE 64; RESP 18; TEMP 36.9; O2SAT 99
== END 2024-10-09 15:46 | disposition home or self-care (01) ==
PROVIDERS: Emergency Provider Surgery; PCP Family Medicine; Visit Provider Surgery
DX: S91.341A Puncture wound with foreign body, right foot, initial encounter (principal); I11.0 Hypertensive heart disease with heart failure; I50.32 Chronic diastolic (congestive) heart failure; E11.9 Type 2 diabetes mellitus without complications; I25.10 Atherosclerotic heart disease of native coronary artery without angina pectoris; G47.33 Obstructive sleep apnea (adult) (pediatric); I25.2 Old myocardial infarction; X58.XXXA Exposure to other specified factors, initial encounter; Z95.5 Presence of coronary angioplasty implant and graft
CPT/HCPCS: 73630; 82962; 90715; 96374; 99285

== ENCOUNTER → 2024-10-11 | Outpatient (CLI) | payer MEDICARE, SELFPAY ==
[2024-05-06 07:26] VITALS: BMI 38.2
[2024-10-11 16:29] LABS: Anion Gap 5 (5-15); BUN 16 mg/dL (7-18); BUN/Creat Ratio 13.2 RATIO (10-20); Calcium,Total 9.2 mg/dL (8.5-10.1); Chloride 97 mmol/L (98-107); Creatinine, Serum 1.21 mg/dL (0.70-1.30); EST Glomerular Filtration Rate 63 mL/min (>60); Est Glom Filt Rate - Afr Amer 76 mL/min (>60); Glucose 297 mg/dL (74-106); Potassium 4.1 mmol/L (3.5-5.1); Sodium Level 136 mmol/L (136-145)
== END | disposition home or self-care (01) ==
LOC: LAB 15:11
PROVIDERS: PCP Family Medicine; Referring Provider Nurse Practitioner Family; Visit Provider Nurse Practitioner Family
DX: R25.2 Cramp and spasm (principal); Z51.81 Encounter for therapeutic drug level monitoring; Z79.899 Other long term (current) drug therapy
CPT/HCPCS: 36415; 80048

== ENCOUNTER → 2024-10-31 | Outpatient (CLI) | payer MEDICARE, SELFPAY ==
[2024-05-06 07:26] VITALS: BMI 38.2
--- NOTE | 2024-10-31 10:45 | MRI_ITS ---
PROCEDURE: Noncontrast MRI of the right foot. REASON FOR EXAM: Right foot cellulitis. Nail puncture. TECHNIQUE: Multiplanar, multisequence MRI images of the right foot were obtained without IV contrast. COMPARISON: None available FINDINGS The included distal right tibia/fibula, talus, calcaneus, tarsal bones, and metatarsals are intact. Fat signal is maintained in the sinus tarsi. There are [id number] degenerative changes of the tarsal bones and tarsal/metatarsal joints. The plantar fascia appears intact. The nonweightbearing alignment of the tarsal bones is maintained. No evidence of Lisfranc fracture dislocation. There are mild degenerative changes of the interphalangeal and MTP joints. The major flexor and extensor tendons are intact. Diffuse edema of the soft tissues and subcutaneous fat of the right foot, without discrete drainable fluid collection or soft tissue mass on the provided noncontrast images. No evidence of marrow edema or bony destructive process to strongly suggest osteomyelitis on this noncontrast study. MRI/Lower Ext/No Jt/w/o IMPRESSION: Diffuse induration/swelling of the soft tissues of the right foot, suggestive o f cellulitis. No definite discrete drainable fluid collection or evidence of osteomyelitis on the provided noncontrast images. Degenerative changes as above, favored to be due to osteoarthritis. The major flexor and extensor tendons appear intact. Reading Location: [facility]
== END | disposition home or self-care (01) ==
PROVIDERS: PCP Family Medicine; Referring Provider Podiatrist; Visit Provider Podiatrist
DX: L03.115 Cellulitis of right lower limb (principal)
CPT/HCPCS: 73718

== ENCOUNTER 2024-11-07 04:00 | Emergency (ER) | payer MEDICARE, SELFPAY ==
[2024-05-06 07:26] VITALS: BMI 38.2
[2024-11-07] VITALS (7 sets, daily range): BP systolic 120–148; BP diastolic 61–87; PULSE 77–102; RESP 13–20; TEMP 36.4–36.7; O2SAT 96–100; BMI 39.2
--- NOTE | 2024-11-07 04:50 | EKG12_ITS ---
Test Reason : CP Blood Pressure : */* mmHG Vent. Rate : 83 BPM Atrial Rate : 83 BPM P-R Int : 198 ms QRS Dur : 130 ms QT Int : 382 ms P-R-T Axes : 61 -51 28 degrees QTcB Int : 448 ms Normal sinus rhythm Left anterior fascicular block Right bundle branch block Cannot rule out Septal infarct , age undetermined Abnormal ECG Confirmed by Goyo Burleson ([id number]), manager editorial ZAFAR TEMPLE ([id number]) on 11/09/2024 7:58:15 AM Referred By: [facility] Confirmed By: Goyo Burleson
--- NOTE | 2024-11-07 05:15 | RAD_ITS ---
PROCEDURE: CHEST PA AND LATERAL REASON FOR EXAM: Chest pain TECHNIQUE: Frontal and lateral views of the chest. COMPARISON: 05/15/2024 FINDINGS: The lungs appear clear. Pulmonary vascularity appears within limits. No pleural effusion. The cardiac and mediastinal contours appear within limits. Visualized osseous structures appear within limits. RAD/Chest PA and Lateral IMPRESSION: No evidence of acute disease. Reading Location: [id number]
[2024-11-07 05:17] LABS: Absolute Lymphocyte Count 1.53 X10^3/uL (0.83-4.51); Absolute Neutrophil Count 4.8 X10^3/uL (2.0-7.7); Basophil# 0.04 X10^3/uL; Basophil% 0.5 % (0-1); Eosinophil# 0.13 X10^3/uL; Eosinophils% 1.7 % (0-5); Hematocrit 36.8 % (40-54); Hemoglobin 10.8 g/dL (13.0-16.5); Lymphocyte # 1.53 X10^3/ul (0.83-4.51); Lymphocyte % 20.2 % (19-41); Mean Corp Hgb Conc 29.3 g/dL (32-36); Mean Corpuscular Hgb 23.4 pg (27.0-32.0); Mean Corpuscular Volume 79.7 fL (80-94); Mean Platelet Vol. 10.1 fl (6.2-12.0); Monocyte# 1.06 X10^3/uL; NRBC Flagged by Analyzer 0 % (0-5); Neutrophil # 4.79 X10^3/uL (2.7-7.7); Neutrophil % 63.2 % (47-70); Platelet Count 286 K/mm3 (150-450); RBC Distribution Width CV 16.7 % (11.6-14.6); RBC Distribution Width SD 47.5 fl (35.1-43.9); Red Blood Count 4.62 M/mm3 (4.6-6.2); White Blood Count 7.6 K/mm3 (4.4-11.0)
[2024-11-07 05:34] LABS: Anion Gap 5 (5-15); BUN 15 mg/dL (7-18); BUN/Creat Ratio 15.8 RATIO (10-20); Chloride 97 mmol/L (98-107); Creatinine, Serum 0.95 mg/dL (0.70-1.30); EST Glomerular Filtration Rate 83 mL/min (>60); Est Glom Filt Rate - Afr Amer 100 mL/min (>60); Glucose 193 mg/dL (74-106); Potassium 4.2 mmol/L (3.5-5.1); Sodium Level 134 mmol/L (136-145); Troponin-I HS (w/2H Reflex) 7 pg/mL (3.0-78.0)
--- NOTE | 2024-11-07 06:10 | ED.VIS.CHEST ---
HPI History of Present Illness Chief Complaint: Chest Pain Informant: patient and family Narrative Narrative: Patient presenting with granddaughter for evaluation mild chest discomfort few hours prior to arrival. However last 40 hours had been having increasing anxiety and being restless. He is on Ativan written by his PCP of 0.25 mg he typically only takes half a tab. He lost his bowels 1 to 2 years ago states he was only using it less frequently every now and then. He states over the last week has had increasing uses. He states more stressed with a home he is deciding whether or not he wants to keep the home at this time. He denies suicidal homicidal ideations. Denies any auditory or visual hallucinations. Over last 48 hours he has been taking more of the Ativan and unable to sleep. With the chest discomfort tonight he can get evaluated. He has had 3 stents in the past. Hypertension, hyperlipidemia, denies diabetes. COPD chronic 2.5 L oxygen. Intermittent dry cough since July. No fevers no chills no myalgias. Prior Similar Symptoms: Yes, With Prior MD, With Prior Angina and With Prior PE CVD Risk Factors: Positive for Hypertension and Hypercholesterolemia; Negative for Diabetes or Family History 1' </=55 [facility] Medical History Swelling of left lower extremity KRISTI (obstructive sleep apnea) BPH (benign prostatic hyperplasia) Venous ulcer of left leg Venous hypertension, chronic, with ulcer and inflammation Chronic venous insufficiency 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-39.9) Acute respiratory failure with hypoxia and hypercarbia Fracture, thoracic vertebra Tinea cruris History of chronic CHF Varicose veins of both legs with edema Lower extremity edema 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 disease Carotid bruit Neck pain Shortness of breath Abnormal nuclear stress test Essential hypertension Inappropriate sexual behavior Hypomagnesemia Muscle cramps Edema Chronic diastolic (congestive) heart failure Atherosclerotic heart disease of [place] coronary artery without angina pectoris History of ST elevation myocardial infarction (STEMI) (07/11/17) Asthma IBS (irritable bowel syndrome) 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.9) Restless legs Hyperlipidemia Diabetes mellitus, type 2 Anxiety Home Medications ?Medication ?Instructions ?Recorded ?Last Taken ?Type metformin 1,000 mg tablet 1,000 mg PO BIDCM diabetes 01/17/16 01/25/24 History montelukast 10 mg tablet 10 mg PO QHS allergies 01/17/16 12/07/18 History acetaminophen 325 mg tablet 325 - 650 mg (1 - 2 x 325 mg) PO 07/14/17 Unknown Rx Q6H PRN PRN Pain aspirin 81 mg tablet,delayed 81 mg PO DAILY@0800 #30 tabs 07/14/17 01/26/24 Rx release pramipexole 1 mg tablet 2 mg PO QHS headache 05/07/18 12/08/18 21:00 History coenzyme Q10 100 mg capsule 100 mg PO DAILY supplement 12/08/18 12/04/18 History magnesium oxide 400 mg PO DAILY supplement 12/08/18 12/08/18 08:00 History fluticasone propionate 50 1 spray intranasal DAILY PRN nasal 04/05/20 Unknown History mcg/actuation nasal spray spray,suspension nitroglycerin 0.4 mg sublingual 0.4 mg sublingual Q5M PRN Angina 11/29/21 Unknown Rx tablet pain #25 tabs vitamin B complex 1 tab PO DAILY 03/14/22 Unknown History isosorbide mononitrate 30 mg 30 mg PO DAILY #90 tabs 07/05/23 Unknown Rx tablet,extended release 24 hr buspirone 10 mg tablet 20 mg PO BID Anxiety 08/20/23 Unknown History albuterol sulfate 90 mcg/actuation 2 puff inhalation Q4H PRN 10/28/23 Unknown Rx aerosol inhaler (Ventolin HFA) shortness of breath or wheezing #18 grams clotrimazole-betamethasone 1 1 applic topical BID 4 weeks #45 11/17/23 Unknown Rx %-0.05 % topical cream grams carvedilol 25 mg tablet 25 mg PO BID #180 tabs 12/07/23 Unknown Rx cholecalciferol (vitamin D3) 50 2,000 unit PO DAILY supplement 12/07/23 Unknown History mcg (2,000 unit) capsule glyburide 1.25 mg tablet 1.25 mg PO BID 12/07/23 01/25/24 History omeprazole 40 mg capsule,delayed 40 mg PO BID 12/07/23 Unknown History release alprazolam 0.25 mg tablet 0.25 mg PO DAILY PRN anxiety 2 05/18/24 Unknown Rx days #7 tabs insulin NPH isoph U-100 human 100 See Rx Instructions .Route 05/18/24 Unknown Rx unit/mL subcutaneous suspension .COMPLEX diabetes 3 days #0 mL insulin lispro 100 unit/mL See Protocol subcut ACHS #0 mL 05/18/24 Unknown Rx subcutaneous pen (Humalog KwikPen (U-100) Insulin) tamsulosin 0.4 mg capsule 0.4 mg PO DAILY@1700 #0 caps 05/18/24 Unknown Rx dapagliflozin propanediol 10 mg 10 mg PO QDAY #90 tabs 08/03/24 Unknown Rx tablet (Farxiga) evolocumab 140 mg/mL subcutaneous 140 mg subcut Q2W #6 mL 08/23/24 Unknown Rx pen injector (Repatha SureClick) metolazone 2.5 mg tablet 2.5 mg PO .COMPLEX #90 tabs 09/12/24 Unknown Rx furosemide 40 mg tablet 80 mg PO .COMPLEX 09/16/24 Unknown History pravastatin 40 mg tablet 40 mg PO DAILY #90 TABLETS 09/27/24 Unknown Rx clopidogrel 75 mg tablet 75 mg PO DAILY #90 tabs 10/20/24 Unknown Rx tramadol 50 mg tablet 50 mg PO TID PRN pain 10/20/24 Unknown History doxycycline hyclate 50 mg tablet 100 mg (2 x 50 mg) PO BID 7 days 11/04/24 Unknown Rx #28 tabs hydroxyzine HCl 25 mg tablet 25 mg PO TID PRN anxiety #20 tabs 11/07/24 Unknown Rx Allergy/AdvReac Type Severity Reaction Status Date / Time Penicillins Allergy Severe Anaphylaxis Verified 11/07/24 04:02 quinine sulfate (From Quine) Allergy Severe passed out Verified 11/07/24 04:02 benzocaine (From Cetacaine) Allergy Swelling Verified 11/07/24 04:02 butamben (From Cetacaine) Allergy Swelling Verified 11/07/24 04:02 ciprofloxacin HCl (From Allergy Hives Verified 11/07/24 04:02 Cipro) clarithromycin (From Biaxin) Allergy Swelling Verified 11/07/24 04:02 exenatide (From Byetta) Allergy Rash Verified 11/07/24 04:02 folic acid (From Allergy Rash Verified 11/07/24 04:02 Proferrin-Forte) hyoscyamine sulfate (From Allergy Rash Verified 11/07/24 04:02 Levsin) iron heme polypeptide (From Allergy tongue Verified 11/07/24 04:02 Proferrin-Forte) swelling naproxen (From Naprosyn) Allergy Rash Verified 11/07/24 04:02 tetracaine (From Cetacaine) Allergy throat Verified 11/07/24 04:02 swelled shut venlafaxine HCl (From Allergy tongue Verified 11/07/24 04:02 Effexor) swelling ezetimibe (From Zetia) AdvReac Severe Myalgias, Verified 11/07/24 04:02 diarrhea mold AdvReac Severe PT UNSURE Verified 11/07/24 04:02 OF REACTION niacin (From Niaspan AdvReac Severe PT UNSURE Verified 11/07/24 04:02 Extended-Release) OF REACTION procainamide AdvReac Severe Anaphylactic/Resp. Verified 11/07/24 04:02 Distress atorvastatin calcium (From AdvReac Intermediate Mylagias Verified 11/07/24 04:02 Lipitor) levofloxacin AdvReac Intermediate Nausea and Verified 11/07/24 04:02 vomiting rosuvastatin calcium (From AdvReac Intermediate Myalgias Verified 11/07/24 04:02 Crestor) diphenhydramine HCl (From AdvReac Restlessnes Verified 11/07/24 04:02 Benadryl) s Family History Mother Diabetes Hypertension Father Hypotension Brother Hypertension HLD (hyperlipidemia) Grandmother Diabetes Grandfather CVA (cerebral vascular accident) Diabetes Brother Cancer lung Surgical History History of left knee surgery History of vasectomy History of appendectomy History of exploratory laparotomy History of cholecystectomy Stented coronary artery (~01/26/24) History of left heart catheterization (12/06/21) History of coronary artery stent placement (04/13/19) History of dental surgery Status post excision of lipoma Social History Smoking Status: Never smoker second hand exposure: No alcohol intake: never substance use type: does not use caffeine: No seatbelt use: always do you feel safe at home: Yes ROS ROS ED Constitutional Constitutional ED: Denies chills, fever(s) or sweats ENT ENT ED: Denies sore throat Cardiovascular Cardiovascular: Reports chest pain; Denies leg edema, palpitations or racing heartbeat Respiratory/Chest Respiratory/Chest: Reports cough; Denies dyspnea or dyspnea on exertion Gastrointestinal Gastrointestinal: Denies abdominal pain, diarrhea, nausea or vomiting Genitourinary Genitourinary ED: Denies dysuria, hematuria or urinary frequency Musculoskeletal Musculoskeletal: Denies back pain, extremity pain or neck pain Integumentary Denies rash or wounds Neurologic Neurologic: Denies headache(s), paresthesias or weakness Psychiatric Psychiatric: Reports anxiety; Denies suicidal ideation or suicidal thoughts EXAM Physical Exam Const Vital Signs: 11/07/24 04:02 11/07/24 04:04 11/07/24 04:08 Temperature 97.6 F L Temperature Source Oral Pulse Rate 87 102 H Respiratory Rate 20 H 20 H Respiratory Effort Short of Breath Labored Respiratory Pattern Normal Blood Pressure 148/74 H 138/73 H Blood Pressure Mean 98 94 Pulse Ox 99 98 Oxygen Delivery Method Nasal Cannula Nasal Cannula Oxygen Flow Rate (L/min) 3 2.5 11/07/24 04:15 11/07/24 05:00 11/07/24 05:16 Temperature Temperature Source Pulse Rate 88 Respiratory Rate 18 Respiratory Effort Short of Breath Labored Respiratory Pattern Tachypnea Blood Pressure 142/87 H Blood Pressure Mean 105 Pulse Ox 96 97 Oxygen Delivery Method Nasal Cannula Nasal Cannula Oxygen Flow Rate (L/min) 2.5 2.5 11/07/24 06:00 11/07/24 07:11 11/07/24 08:11 Temperature 98.1 F Temperature Source Pulse Rate 93 100 77 Respiratory Rate 13 15 19 H Respiratory Effort Respiratory Pattern Blood Pressure 138/78 H 120/61 143/74 H Blood Pressure Mean 98 80 97 Pulse Ox 96 100 96 Oxygen Delivery Method Room Air Nasal Cannula Oxygen Flow Rate (L/min) 2.5 Positive well nourished and well developed Constitutional Narrative: 2.5 L nasal cannula General Appearance ED: well developed and NAD HEENT Reports moist mucous membranes normocephalic and atraumatic Eyes General Eye ED: Yes normal appearance of both eyes Neck full ROM Chest Wall Chest: Negative for tenderness Resp normal respiratory effort and normal air movement Effort and Inspection: symmetric chest movement; Negative for respiratory distress Cardio regular rate, regular rhythm and no murmurs Peripheral Pulses: pulses 2+ throughout GI normal to inspection, nondistended, normoactive bowel sounds and non-tender Palpation: Negative for guarding or rebound tenderness present Extremity normal to inspection General Extremety ED: Negative for edema or tenderness General Extremity: Negative for edema Neuro oriented x3 and no sensory deficits noted Sensorium / Orientation: awake and alert Skin no rashes or lesions noted and no wounds Heart Score History: Slightly/Non-Suspicious ECG: Normal Age: >/= 65 years Risk Factors: >/= 3 Risk Factors or History of CAD Troponin: </= Normal Limit Score: 4 MDM MDM MDM Narrative Medical decision making narrative: Interventions / MDM: Differential diagnosis: Anxiety, atypical chest pain, history of COPD, Diagnosis considered but do not suspect: ACS however EKG cardiac enzymes negative. Pneumonia however chest x-ray negative. My EKG interpretation: Sinus rate of 83, no ST changes, T wave version lead III nonspecific. Right bundle branch block. Similar findings from April 2024. Imaging independently reviewed and interpreted by myself: 2 view chest x-ray: No acute process also read by radiology. External documents reviewed: N/A Test considered but not ordered:N/A ED course: Presenting with more anxiety symptoms unable to sleep for last 40 hours. Had some transient chest pain this evening. EKG chronic right bundle branch block. Patient has no suicidal homicidal ideations. With his cardiac history discussed cardiac workup for rule out. 0800: Cardiac enzymes negative x 2. Remains symptom-free. Chest x-ray negative. Interim requested anxiety medicines for which hydroxyzine was given. He is sleep and resting more comfortable. Her writing was short prescription to use. They will call his PCP for further medication treatments for his increasing stress and anxiety. All questions were answered. Re-evaluation: stable Disposition discussed with patient/family/significant other: Patient and granddaughter Case discussed with consulting clinician: N/A This note was generated with [employer] dictation software. It may contain incorrect words, spelling, and punctuation that were not noted in checking the note before signing. Lab Data Attestation: I reviewed the patient's lab results. Labs: Laboratory Results - last 24 hr 11/07/24 11/07/24 04:17 07:17 WBC 7.6 RBC 4.62 Hgb 10.8 L Hct 36.8 L MCV 79.7 L MCH 23.4 L MCHC 29.3 L RDW Std Deviation 47.5 H RDW Coeff of Jeanette 16.7 H Plt Count 286 MPV 10.1 Immature Gran % (Auto) 0.400 Neut % (Auto) 63.2 Lymph % (Auto) 20.2 Haakon % (Auto) 14.0 H Eos % (Auto) 1.7 Baso % (Auto) 0.5 Absolute Neuts (auto) 4.8 Absolute Lymphs (auto) 1.53 Nucleated RBC % 0 Sodium 134 L Potassium 4.2 Chloride 97 L Carbon Dioxide 32.0 Anion Gap 5 BUN 15 Creatinine 0.95 Estim Creat Clear Calc 86.00 Est GFR (MDRD) Af Amer 100 Est GFR (MDRD) Non-Af 83 BUN/Creatinine Ratio 15.8 Glucose 193 H Calcium 9.0 Troponin I High Sens 7 7 Radiography Diagnostic Testing: Clinical Impression(s) from Imaging Studies Chest X-Ray 11/07/24 05:15 IMPRESSION: No evidence of acute disease. Reading Location: [facility] Discharge Plan Triage Chief Complaint: Chest Pain Other Complaint: General Illness ED Provider: Gabe Fragoso Dx/Rx/DC Orders Clinical Impression: Anxiety, Chest pain Instructions: ED Anxiety Reaction, ED Chest Pain, Noncardiac Prescriptions: New hydroxyzine HCl 25 mg tablet 25 mg PO TID PRN (Reason: anxiety) Qty: 20 0RF No Action buspirone 10 mg tablet 20 mg PO BID vitamin B complex Tablet 1 tab PO DAILY nitroglycerin 0.4 mg tablet, sublingual 0.4 mg SUBLINGUAL Q5M PRN (Reason: Angina pain) Qty: 25 3RF omeprazole 40 mg capsule,delayed release(DR/EC) 40 mg PO BID glyburide 1.25 mg tablet 1.25 mg PO BID carvedilol 25 mg tablet 25 mg PO BID Qty: 180 3RF Rx Instructions: must administer with a meal/food clotrimazole-betamethasone 1-0.05 % cream 1 applic topical BID 28 Days Qty: 45 1RF furosemide 40 mg tablet 80 mg PO .COMPLEX Rx Instructions: 80 mg orally; takes 80mg in the am and 40mg in the afternoon doxycycline hyclate 50 mg tablet 100 mg PO BID 7 Days Qty: 28 0RF metformin 1,000 MG tablet 1,000 mg PO BIDCM montelukast 10 MG tablet 10 mg PO QHS pramipexole 1 mg tablet 2 mg PO QHS Patient Comments: 1 mg PO 2 tablets by mouth at bedtime Rx Instructions: 1 mg PO 2 tablets by mouth at bedtime fluticasone propionate 50 mcg/actuation spray,suspension 1 spray INTRANASAL DAILY PRN (Reason: nasal spray) acetaminophen 325 MG tablet 325 - 650 mg PO Q6H PRN PRN (Reason: Pain) 0RF aspirin 81 MG tablet 81 mg PO DAILY@0800 Qty: 30 0RF magnesium oxide 400 MG tablet 400 mg PO DAILY coenzyme Q10 100 MG capsule 100 mg PO DAILY cholecalciferol (vitamin D3) 50 mcg (2,000 unit) capsule 2,000 unit PO DAILY insulin lispro [Humalog KwikPen Insulin] 100 unit/mL Insulin Pen See Protocol subcut ACHS Qty: 0 0RF Protocol: 4. Sliding Scale Insulin High-Med Dosing Condition: 150-199 mg/dl = 2 units Condition: 200-259 mg/dl = 4 units Condition: 260-324 mg/dl = 6 units Condition: 325-374 mg/dl = 8 units Condition: 375-409 mg/dl = 10 units Condition: 410-449 mg/dl = 11 units Condition: Greater than 449 call physician Protocol Text: Suggested for: - Patients on Total Daily Insulin Dose of 56-80 units - Patient who are known to be insulin resistant or septic HIGH MEDIUM DOSING ALGORITHM tamsulosin 0.4 mg Capsule 0.4 mg PO DAILY@1700 Qty: 0 0RF alprazolam 0.25 mg tablet 0.25 mg PO DAILY PRN (Reason: anxiety) 2 Days Qty: 7 0RF Patient Comments: for anxiety insulin NPH isoph U-100 human 100 unit/mL suspension See Rx Instructions .ROUTE .COMPLEX 3 Days Qty: 0 0RF Rx Instructions: subcutaneously; 50 units in am, 40 units in hs; Hold if glucose less than 130 mg/dl isosorbide mononitrate 30 mg tablet extended release 24 hr 30 mg PO DAILY Qty: 90 3RF albuterol sulfate [Ventolin HFA] 90 mcg/actuation HFA aerosol inhaler 2 puff INHALATION Q4H PRN (Reason: shortness of breath or wheezing) Qty: 18 6RF dapagliflozin propanediol [Farxiga] 10 mg tablet 10 mg PO QDAY Qty: 90 3RF Repatha SureClick 140 mg/mL pen injector 140 mg subcut Q2W Qty: 6 3RF metolazone 2.5 mg tablet 2.5 mg PO .COMPLEX Qty: 90 3RF Rx Instructions: 2.5 mg orally Thursday and ; pravastatin 40 mg tablet 40 mg PO DAILY Qty: 90 3RF clopidogrel 75 mg tablet 75 mg PO DAILY Qty: 90 3RF tramadol 50 mg tablet 50 mg PO TID PRN (Reason: pain) Primary Care Provider: Maya Pradhan Referrals: Maya Pradhan DO [Primary Care Provider] - 1 Day Activity Restrictions/Additional Instructions: Cardiac workup negative. Increasing stress and anxiety. Take hydroxyzine as needed. You have your Ativan to use. Discussed with your PCP further treatment options. Print Language: Maldivian Disposition Disposition: Home, Self Care Discharge Date/Time: 11/07/24 08:15
[2024-11-07] MEDS: hydrOXYzine PAM 25 MG Capsule 50 MG PO (07:15)
[2024-11-07 07:19] LABS: Reflex Troponin-HS? (from REC) Y
[2024-11-07 07:45] LABS: Troponin-I HS 7 pg/mL (3.0-78.0)
== END 2024-11-07 08:15 | disposition home or self-care (01) ==
PROVIDERS: Emergency Provider Emergency Medicine; PCP Family Medicine; Visit Provider Emergency Medicine
DX: R07.89 Other chest pain (principal); I50.32 Chronic diastolic (congestive) heart failure; I11.0 Hypertensive heart disease with heart failure; J44.9 Chronic obstructive pulmonary disease, unspecified; E11.9 Type 2 diabetes mellitus without complications; Z79.4 Long term (current) use of insulin; I45.10 Unspecified right bundle-branch block; E78.5 Hyperlipidemia, unspecified; Z99.81 Dependence on supplemental oxygen; N40.0 Benign prostatic hyperplasia without lower urinary tract symptoms; I25.10 Atherosclerotic heart disease of native coronary artery without angina pectoris; I87.2 Venous insufficiency (chronic) (peripheral); I25.2 Old myocardial infarction; F41.9 Anxiety disorder, unspecified; E83.42 Hypomagnesemia; G25.81 Restless legs syndrome; G47.33 Obstructive sleep apnea (adult) (pediatric); Z88.0 Allergy status to penicillin; Z88.1 Allergy status to other antibiotic agents; Z95.5 Presence of coronary angioplasty implant and graft; Z79.84 Long term (current) use of oral hypoglycemic drugs; Z79.02 Long term (current) use of antithrombotics/antiplatelets; Z79.82 Long term (current) use of aspirin; Z79.899 Other long term (current) drug therapy
CPT/HCPCS: 71046; 80048; 84484; 85025; 93005; 99285; A4216

== ENCOUNTER → 2025-02-13 | Outpatient (CLI) | payer MEDICARE, SELFPAY ==
[2024-05-06 07:26] VITALS: BMI 38.2
[2025-02-13 14:06] LABS: Absolute Lymphocyte Count 2.07 X10^3/uL (0.83-4.51); Absolute Neutrophil Count 4.8 X10^3/uL (2.0-7.7); Basophil# 0.05 X10^3/uL; Basophil% 0.6 % (0-1); Eosinophil# 0.11 X10^3/uL; Eosinophils% 1.4 % (0-5); Hematocrit 38.8 % (40-54); Lymphocyte # 2.07 X10^3/ul (0.83-4.51); Lymphocyte % 26.4 % (19-41); Mean Corp Hgb Conc 30.9 g/dL (32-36); Mean Corpuscular Hgb 25.3 pg (27.0-32.0); Mean Corpuscular Volume 81.7 fL (80-94); Mean Platelet Vol. 9.7 fl (6.2-12.0); Monocyte# 0.81 X10^3/uL; Monocyte% 10.3 % (0-10); NRBC Flagged by Analyzer 0 % (0-5); Neutrophil # 4.78 X10^3/uL (2.7-7.7); Platelet Count 247 K/mm3 (150-450); RBC Distribution Width CV 18.4 % (11.6-14.6); RBC Distribution Width SD 54.9 fl (35.1-43.9); Red Blood Count 4.75 M/mm3 (4.6-6.2); White Blood Count 7.8 K/mm3 (4.4-11.0)
[2025-02-13 14:15] LABS: AST(SGOT) 17 U/L (<=37); Alanine Aminotransfer ALT/SGPT 21 U/L (<=46); Albumin, Serum 3.7 g/dL (3.4-4.8); Alkaline Phosphatase 65 U/L (40-129); Anion Gap 8 (5-15); BUN 19 mg/dL (4-19); BUN/Creat Ratio 18.7 RATIO (10-20); Calcium,Total 9.1 mg/dL (7.6-11.0); Carbon Dioxide 33.2 mmol/L (21.0-32.0); Chloride 98 mmol/L (98-108); Cholesterol 204 mg/dL (<=200); Creatinine, Serum 1.03 mg/dL (0.70-1.20); EST Glomerular Filtration Rate 77 (>60); Globulin 3.9 g/dL (2.2-4.2); Glucose 125 mg/dL (70-99); High Density Lipoprotein 43 mg/dL; Low Density Lipoprotein Calc. 144 mg/dL; Potassium 4.3 mmol/L (3.3-5.1); Protein, Total 7.6 g/dL (5.9-8.4); Sodium Level 139 mmol/L (133-145); Total Bilirubin 0.37 mg/dL (0.00-1.30); Triglycerides 84 mg/dL; Very Low Density Lipoprotein 17 mg/dL (5-40); cholesterol:hdl ratio screen 4.77
== END | disposition home or self-care (01) ==
LOC: LAB 12:29
PROVIDERS: PCP Family Medicine; Referring Provider Physician Assistant Medical; Visit Provider Physician Assistant Medical
DX: E78.5 Hyperlipidemia, unspecified (principal); E11.65 Type 2 diabetes mellitus with hyperglycemia; I10 Essential (primary) hypertension; Z51.81 Encounter for therapeutic drug level monitoring
CPT/HCPCS: 36415; 80053; 80061; 83036; 85025

== ENCOUNTER → 2025-03-28 | Outpatient (CLI) | payer MEDICARE, SELFPAY ==
[2024-05-06 07:26] VITALS: BMI 38.2
--- NOTE | 2025-03-28 12:27 | ART_ITS ---
Reason For Study Reason For Study: LE Wound Procedure A bilateral lower extremity continuous wave Doppler with analog waveform analysis,segmental pressures,and ankle brachial indexes without exercise. Left Segmental Pressures Left brachial= 119mmHg. Left posterior tibial artery = 144mmHg. Left dorsalis pedis artery = 141mmHg. Left digit = 117 mmHg. The left posterior tibial artery waveforms are triphasic. The left dorsalis pedis waveforms are triphasic. Right Segmental Pressures Right brachial= 128mmHg. Right calf = 131mmHg. Right posterior tibial artery = 118mmHg. Right dorsalis pedis artery = 126mmHg. Right digit = 93 mmHg. The right posterior tibial artery waveforms are triphasic. The right dorsalis pedis waveforms are triphasic. Indices The right ankle brachial index by the posterior tibial artery is 0.92. The right ankle brachial index by the dorsalis pedis is 0.98. The right digital-brachial index is 0.73. The left ankle brachial index by the posterior tibial artery is 1.13. The left ankle brachial index by the dorsalis pedis is 1.10. The left digital-brachial index is 0.91. VL/Lower Ext Art Exam w/o Exercis Interpretation Summary Triphasic Doppler waveforms are noted at ankle level bilaterally. Pulse-volume recordings appear satisfactory at all levels bilaterally. The resting right ankle-brachial index is minimally diminis hed. The resting left ankle-brachial index is normal. Digital-brachial indices are normal bilaterally. There is no evidence of significant arterial occlusive disease in the lower ext remities bilaterally. Ordering Physician: Ricardo Jones Referring Physician: Maya Pradhan Performed By: Zaid Krueger RVT
--- NOTE | 2025-03-28 12:27 | VDLE_ITS ---
Reason For Study Reason For Study: BLE Swelling RIGHT LEFT CFV is compressible, spontaneous, phasic, competent CFV is compressible, spontaneous, phasic, competent, and demonstrates normal augmentation. and demonstrates normal augmentation. FV is compressible, spontaneous, phasic, competent FV is compressible, spontaneous, phasic, competent and demonstrates normal augmentation. and demonstrates normal augmentation. POP V is compressible, spontaneous, phasic, competent POP V is compressible, spontaneous, phasic, competent and demonstrates normal augmentation. and demonstrates normal augmentation. T/P Trunk is compressible. T/P Trunk is compressible. PTV is compressible. PTV is compressible. RT PerV is compressible. LT PerV is compressible. SFJ is competent and measures 0.40 cm. SFJ is competent and measures 0.59 cm. GSV proximal thigh measures 0.39 X 0.36 cm. GSV proximal thigh measures 0.28 x 0.28 cm. GSV at knee measures 0.26 x 0.27 cm. GSV at knee measures 0.27 x 0.25 cm. GSV above knee is INCOMPETENT for greater than 0.5 GSV above knee is competent. seconds. GSV below knee is INCOMPETENT for greater than 0.5 GSV below knee is competent. seconds. SSV mid calf is competent and measures 0.25 x 0.28 SSV mid calf is INCOMPETENT for greater than 0.5 cm. seconds and measures 0.38 x 0.38 cm. Procedure ASV mid calf is INCOMPETENT for greater than 0.5 Exam performed in department. seconds and measures 0.26 x 0.28 cm. This is a venous duplex using B-mode, color flow and spectral Doppler. The exam was diagnostic. Patient was scanned in reverse Trendelenburg position during reflux assessment. VL/Venous Duplex US - Bonifacio Extrem Interpretation Summary Deep veins of the lower extremities are bilaterally patent and compressible seg mentally. There is no evidence of deep vein thrombosis on either side. Valvular competence appears intact within the p roximal deep venous systems bilaterally. The great saphenous veins appear bilaterally patent and compressible segmentall y. Sapheno-femoral junctions are bilaterally competent . The right great saphenous vein appears incompetent abov e the knee. The right great saphenous vein appears competent below the knee. The left great saphenous vein appears co mpetent above the knee. The left great saphenous vein appears incompetent below the knee. The right small saphenous ve in is patent and competent. The left small saphenous vein is patent and incompetent. The accessory saphenous vein in the left mid-calf is incompetent. Ordering Physician: Ricardo Jones Referring Physician: Maya Pradhan Performed By: Zadi Krueger RVT
== END | disposition home or self-care (01) ==
LOC: CVS 12:27
PROVIDERS: PCP Family Medicine; Referring Provider Podiatrist; Visit Provider Podiatrist
DX: I73.89 Other specified peripheral vascular diseases (principal); M79.604 Pain in right leg; M79.605 Pain in left leg; R22.41 Localized swelling, mass and lump, right lower limb; R22.42 Localized swelling, mass and lump, left lower limb
CPT/HCPCS: 93923; 93970

== ENCOUNTER 2025-08-02 23:48 | Emergency (ER) | payer MEDICARE, SELFPAY ==
[2024-05-06 07:26] VITALS: BMI 38.2
[2025-08-02 23:49] VITALS: BP 137/87; PULSE 84; RESP 16; TEMP 36.6; O2SAT 93; O2SAT 94; BMI 39.9
--- OUTSIDE RECORDS SUMMARY | 2025-08-03 00:17 | XMS RPT_ITS | CCD ---
Author Organization [facility] CliniSyil Care Team Providers Care Millinery Copyist Name Role Phone Alfonzo Lloyd Craig Unavailable Unavailable Newbill, Lloydgumaro Craig Unavailable Unavailable No Doctor Assigned, Nodr Unavailable Unavail able Newbill, Lloyd Craig Unavailable Unavailable Newbill, Lloyd Craig Unavailable Unavailable Malys, Maya A Unavailable Unavailable Rainey, George K Unavailable Unavailable Rainey, George K Unavailable Unavailable Malys Maya A Unavailable Unavailable Rainey, George K Unavailable Unavailable Rainey, George K Unavailable Unavailable Carolynn Maya A Unavailable Unavailable Dr. Maya Pradhan Primary Care Provider Dr. Maya Pradhan Referring Provider Christina MILLWRIGHT HELPER, MILLWRIGHT HELPER-C Aretha Attending Provider Roof MILLWRIGHT HELPER, MILLWRIGHT HELPER-C Carlos Eduardo Grande Referring Provider Roof MILLWRIGHT HELPER, MILLWRIGHT HELPER-C Carlos Eduardo Grande Other Provider Dr. Yuval Ayala Attending Provider Roof MILLWRIGHT HELPER, MILLWRIGHT HELPER-C Carlos Eduardo Grande Attending Provider Dr. Maya Pradhan Primary Care Provider Dr. Maya Pradhan Referring Provider [phone] Nick MILLWRIGHT HELPER, MILLWRIGHT HELPER-C Liz Attending Provider DANIELLE RADER Primary Care Physician DR MAYA PRADHAN DO Primary Care Physician Dr. Maya Pradhan Primary Care Provider [phone] Dr. Maya Pradhan Referring Provider Naz GARCIA, RADHA Rosenberg Attending Provider Dr. Chema Payan Attending Provider Dr. Maya Pradhan Primary Care Provider [phone] Maya Pradhan Referring Provider RADHA Alvarado Attending Provider Dr. 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 Maya Pradhan Primary Care Provider [phone] Maya Pradhan Referring Provider Dr. Maya Pradhan Primary Care Provider [phone] Maya Pradhan Referring Provider [phone] Dr. Alex Crooks Attending Provider Dr. Alex Crooks Referring Provider Nick CARTER, MILLWRIGHT HELPER-C Liz Attending Provider RADHA Goldman Attending Provider Dr. Maya Pradhan Primary Care Provider [phone] Alex Crooks Attending Provider Dr. Alex Crooks Referring Provider Nick CARTER, MILLWRIGHT HELPER-C Liz Attending Provider Dr. Maya Pradhan Referring Provider [phone] RADHA Goldman Attending Provider Dr. Claude Boyd Emergency Provider [phone] Emmett Patten Admit Provider Unavailabl e Dr. Emmett Patten Other Provider Unavailabl e Dr. Stewart Dukes Attending Provider Dr. Stewart Dukes Other Provider Dr. Alfonso Jade Other Provider Dr. Chema Zambrano Attending Provider Dr. Chema Zambrano Other Provider Dr. Maya Pradhan Primary Care Provider Dr. Maya Pradhan Referring Provider Deidra MILLWRIGHT HELPER, MILLWRIGHT HELPER-C Larisa Attending Provider Dr. Chema Payan Attending Provider 1([facility])-[phone] Chema Payan Referring Provider Dr. Chema Payan Other Provider Maya Pradhan DO Primary Care Provider Dr. Maya Pradhan Primary Care Provider Dr. Maya Pradhan Referring Provider 1([phone] Chema Payan Attending Provider 1([facility])-[phone] Chema Payan Referring Provider 1([facility])-[phone] Chema Payan Other Provider RADHA Goldman Attending Provider [phone] Christina MILLWRIGHT HELPER, MILLWRIGHT HELPER-C Aretha Attending Provider RADHA Carson Attending Provider Dr. Alex Crooks Attending Provider Dr. Maya Pradhan Primary Care Provider [phone]([phone] Chema Payan Attending Provider 1([facility])[phone] Maya Pradhan Referring Provider [phone] Dr. Alex Crooks Referring Provider Dr. Alex Crooks Other Provider MARCUS FRANCO DO Primary Care Physician GLENDY EDUARDO Attending DR MAYA Pressley DO Primary Care Unavailable MILIND EDWARDS, DR VERONICA Attending MARCUS Ramirez DO Primary Care Unavailable MILIND EDWARDS, DR VERONICA Attending MARCUS Ramirez DO Primary Care Unavailable Maya Pradhan DO Primary Care Provider Carolynn COBIAN, Dr. Trejo Primary Care Provider Karen JOSE, Dr. Silva Attending Provider Karen JOSE, Dr. Silva Referring Provider Carolynn COBIAN, Dr. Trejo Referring Provider Ruth Pulido Attending Provider Clinton COBIAN, Dr. Bernal Attending Provider Clinton COBIAN, Dr. Bernal Emergency Provider [phone] Kasia Alvarado Attending Provider Kasia Alvarado Referring Provider Carolynn COBIAN, Dr. Trejo Primary Care Provider Karen JOSE, Dr. Silva Attending Provider Karen JOSE, Dr. Silva Referring Provider Delicia Swartz MD Primary Care Provider Jhonathan EDWARDS, Dr. Lamin Ruelas Attending Provider Carolynn COBIAN, Dr. Trejo Referring Provider BONEZZI, DELICIA M Primary Care Unavailable LEE, JIA Referring Unavailable LEE, JIA Attending Unavailable BONEZZI, DELICIA M Primary Care Unavailable LEE, JIA Attending Unavailable LEE, JIA Referring Unavailable BONEZZI, DELICIA M Primary Care Unavailable LEE, JIA Attending Unavailable LEE, JIA Referring Unavailable TAUSCH, JEREMÍAS Attending Unavailable TAUSCH, JEREMÍAS Referring Unavailable BONEZZI, DELICIA M Primary Care Unavailable TAUSCH, JEREMÍAS Attending Unavailable TAUSCH, JEREMÍAS Referring Unavailable BONEZZI, DELICIA M Primary Care Unavailable TAUSCH, JEREMÍAS Attending Unavailable BONEZZI, DELICIA M Primary Care Unavailable LEE, JIA Referring Unavailable BONEZZI, DELICIA M Primary Care Unavailable LEE, JIA Referring Unavailable LEE, JIA Attending Unavailable Carolynn COBIAN, Dr. Trejo Primary Care Physician Karen JOSE, Dr. Silva Attending Physician Jhonathan EDWARDS, Dr. Lamin Ruelas Attending Physician Kasia Alvarado Attending Physician Ruth Pulido Attending Physician Malys, Maya Primary Care Unavailable Malys, Maya Referring Unavailable Ruth Goldman Attending Unavailable Malys, Maya Primary Care Unavailable Malys, Maya Referring Unavailable Kasia Alvarado Attending Unavail able Malys, Maya Primary Care Unavailable Malys, Maya Referring Unavailable Christina MILLWRIGHT HELPERAretha Attending Unavailable [place] Referring Unavailable [place]add[place] Attending Unavailable Malys, Maya Primary Care Unavailable Roof MILLWRIGHT HELPER, Carlos Eduardo H Referring Unavailable Roof MILLWRIGHT HELPER, Carlos Eduardo Grande Attending Unavailable Malys, Maya Primary Care Unavailable Malys, Maya Primary Care Unavailable Gabe Fragoso Attending Unavailable Malys, Maya Primary Care Unavailable Anuel Colon Attending Unavailabl e Malys, Maya Referring Unavailable Kasia Alvarado Attending Unavail able Malys, Maya Primary Care Unavailable [place] madodx Referring Unavailable [place] maddox Attending Unavailable Malys, Maya Primary Care Unavailable Lamin Ring Attending Unavailable Malys, Maya Primary Care Unavailable Malys, Maya Referring Unavailable Lamin Ring Attending Unavailable Malys, Maya Primary Care Unavailable Malys, Maya Referring Unavailable Valeriy, Alex Attending Unavailable Malys, Maya Primary Care Unavailable Valeriy, Alex Referring Unavailable Malys, Maya Primary Care Unavailable Kasia Alvarado Referring Unavail able Kasia Alvarado Attending Unavail able Kasia Alvarado Attending Unavail able Malys, Maya Primary Care Unavailable Kasia Alvarado Referring Unavail able Valeriy, Alex Consulting Unavailable Valeriy, Alex Referring Unavailable Valeriy, Alex Attending Unavailable Malys, Maya Primary Care Unavailable Malys, Maya Primary Care Unavailable Malys, Maya Referring Unavailable Malys, Maya Attending Unavailable Kasia Alvarado Consulting Unavail able Valeriy, Alex Attending Unavailable Malys, Maya Primary Care Unavailable Valeriy, Alex Referring Unavailable Lamin Ring Attending Unavailable Malys, Maya Referring Unavailable Malys, Maya Primary Care Unavailable Malys, Maya Primary Care Unavailable Christina MILLWRIGHT HELPER, Aretha Referring Unavailable Christina MILLWRIGHT HELPER, Aretha Attending Unavailable Malys, Maya Primary Care Unavailable Malys, Maya Referring Unavailable Kasia Alvarado Attending Unavail able Malys, Maya Referring Unavailable Malys, Maya Primary Care Unavailable Ruth Goldman Attending Unavailable Alex Crooks Attending Unavailable Malys, Maya Primary Care Unavailable Malys, Maya Referring Unavailable MALYS, MAYA A Primary Care Unavailable ROCHELLE BRANCH Attending Unavailable MALYS, MAYA A Primary Care Unavailable BRYON TURNER Attending Unavailable MALYS, MAYA A Primary Care Unavailable JOSE INMAN Attending Unavailable MALYS, MAYA A Primary Care Unavailable MALYS, MAYA A Primary Care Unavailable MALYS, MAYA A Primary Care Unavailable MALYS, MAYA A Primary Care Unavailable MALYS, MAYA A Primary Care Unavailable TURNERLUISAON Attending Unavailable MALYS, MAYA A Primary Care Unavailable MALYS, MAYA A Primary Care Unavailable MARISA BLANCO Attending Unavailable Allergies Allergy Classification Reported Allergen(s) Allergy Type Date of Onset Reaction(s) Facility (6 sources) Benzocaine / butamben / Tetracaine; Translations: [Cetacaine] Drug Allergy Facial swelling (finding) [facility] Repository (6 sources) diphenhydrAMINE; Translations: [Benadryl] Drug Allergy Lightheadedness (finding) [facility] Repository (1 source) guaiFENesin / Pseudoephedrine; Translations: [Profen Forte] Drug Allergy [facility] Repository (6 sources) Hyoscyamine; Translations: [Levsin] Drug Allergy [facility], [facility] Repository (6 sources) Naproxen; Translations: [Naprosyn] Drug Allergy Weal (disorder) [facility] Repository (6 sources) Penicillin; Translations: [penicillin] Drug Allergy [facility], [facility] Repository (6 sources) quiNINE; Translations: [quiNINE] Drug Allergy [facility], [facility] Repository (6 sources) venlafaxine; Translations: [Effexor] Drug Allergy [facility], [facility] Repository (20 sources) atorvastatin; Translations: [atorvastatin] Drug Allergy 03-18-20 22 Muscle pain (finding) [facility] (18 sources) Benzocaine Drug Allergy 11-30-19 22 Swelling [facility] (20 sources) butamben; Translations: [butamben topical] Drug Allergy 11-30-19 22 Swelling (finding) [facility] (19 sources) Ciprofloxacin; Translations: [ciprofloxacin HCl] Drug Allergy 11-30-19 22 Hives [facility] Comment on above: TONGUE SWELLS (20 sources) Clarithromycin; Translations: [clarithromycin] Drug Allergy 12-19-19 11 Swelling (morphologic abnormality), Swelling, Shortness of Breath [facility] (20 sources) diphenhydrAMINE; Translations: [diphenhydramine HCl] Drug Allergy 12-19-19 11 Other: See Comments [facility] (20 sources) exenatide; Translations: [exenatide] Drug Allergy 10-14-19 14 Eruption of skin (disorder), Swelling, GI Upset, Other: See Comments [address] [facility] (20 sources) ezetimibe; Translations: [ezetimibe] Drug Allergy 11-30-19 22 Diarrhea (finding), Muscle pain (finding) [address] [facility] (20 sources) Folic Acid; Translations: [folic acid] Drug Allergy 11-30-19 22 Eruption of skin (disorder) [address] [facility] (20 sources) Hyoscyamine; Translations: [Hyoscyamine] Drug Allergy 12-19-19 11 Eruption of [facility] (disorder), [facility] Naproxen; Translations: [naproxen] Drug Allergy 12-19-19 11 Eruption of skin (disorder), Swelling, Itching [address] [facility] (3 sources) Niacin Drug Allergy 11-30-19 22 Unsure [facility] Work Phone: (20 sources) Penicillins; Translations: [Penicillins] Allergy to substance 12-19-19 11 Anaphylaxis [facility] (20 sources) Procainamide; Translations: [procainamide] Drug Allergy 11-30-19 22 Anaphylactic/Resp. Distress, Unknown [facility] (19 sources) quiNINE; Translations: [quinine sulfate] Drug Allergy 11-30-19 22 passed out [facility] (20 sources) rosuvastatin; Translations: [rosuvastatin] Drug Allergy 11-30-19 22 Muscle pain (finding) [facility] (20 sources) Tetracaine; Translations: [tetracaine] Drug Allergy 11-30-19 Pharyngeal swelling (finding) [facility] (19 sources) venlafaxine; Translations: [venlafaxine HCl] Drug Allergy 11-30-19 tongue swelling [facility] (19 sources) iron heme polypeptide; Translations: [iron heme polypeptide] Allergy to substance 11-30-19 tongue swelling [facility] (3 sources) aspergillus Propensity to adverse reactions 11-30-19 22 Unknown [facility] Work Phone: (5 sources) Allantoin / Benzocaine / Camphor / Petrolatum; Translations: [benzocaine topical] Drug Allergy Swelling (morphologic abnormality) [facility] (5 sources) Ciprofloxacin; Translations: [ciprofloxacin] Drug Allergy Pharyngeal swelling (finding) [facility] (5 sources) diphenhydrAMINE; Translations: [diphenhydramine] Drug Allergy Unknown [facility] (20 sources) Lidocaine; Translations: [lidocaine] Drug Allergy 02-10-[address] [facility] (20 sources) Niacin; Translations: [niacin] Drug Allergy 09-18-19 23 Headache (finding) [facility] (5 sources) SITagliptin; Translations: [sitagliptin] Drug Allergy Unknown [facility] (5 sources) venlafaxine; Translations: [venlafaxine] Drug Allergy Tongue swelling (finding) [facility] (15 sources) Mold Extract Drug Allergy 09-18-19 23 PT UNSURE OF REACTION [facility] Comment on above: FROM ASPERGILLUS (20 sources) Aspergillus fumigatus allergenic extract; Translations: [ASPERGILLUS FUMIGATUS ALLERGENIC EXTRACT] Drug Allergy 12-19-[address] [facility] Work Phone: (20 sources) quiNINE; Translations: [QUININE HCL] Drug Allergy 12-19-[address] [facility] Work Phone: (4 sources) levoFLOXacin Drug Allergy 11-07-19 25 Nausea and vomiting [facility] (4 sources) Clarithromycin Propensity to adverse reactions to drug 02-10-20 13 [facility] (4 sources) Anesthetics, Amide Propensity to adverse reactions to drug 02-10-20 13 [facility] (4 sources) Butamben-Tetracai ne-Benzocaine Propensity to adverse reactions to drug 02-10-20 13 [facility] (4 sources) Quinine Hydrochloride Dihydrate Propensity to adverse reactions to drug 02-10-20 13 [facility] (1 source) Benzocaine Drug Allergy 06-15-20 [facility]ository (1 source) butamben Drug Allergy 06-15-20 [facility] (1 source) Clarithromycin Drug Allergy 06-15-20 [facility] Repository (1 source) exenatide Drug Allergy 06-15-20 [facility] Repository (1 source) ezetimibe Drug Allergy 06-15-20 [facility] Rep[facility] (1 source) Folic Acid Drug Allergy 06-15-20 [facility] (1 source) levoFLOXacin Drug Allergy 06-15-20 25 [facility] Repository (1 source) Mold Extract Drug Allergy 06-15-20 [facility] (1 source) Naproxen Drug Allergy 06-15-20 [facility] (1 source) Niacin Drug Allergy 06-15-20 25 [facility] Rep[facility] (1 source) Procainamide Drug Allergy 06-15-20 [facility] (1 source) Tetracaine Drug Allergy 06-15-20 [facility] Repository Medications Current Medications Medication Drug Class(es) Dates Sig (Normalized) Sig (Original) 5-fluorouracil 2.5% acyclovir 5% diclofenac 1% salicylic acid 10% topical (CPD) (20 sources) 5-fluorouracil 2 .5% acyclovir 5% diclofenac 1% salicylic acid 10% topical (CPD) Apply 0.25-0.5 g to affected area two times a day. Active ACCU-CHEK GUIDE ME GLUCOSE MTR (20 sources) Start: 03-13-2022 ACCU-CHEK GUIDE ME GLUCOSE MTR USE DIRECTED THREE TIMES DAILY 03/13/2022 Active Start: 03-13-2022 ACCU-CHEK GUID E ME GLUCOSE MTR USE DIRECTED THREE TIMES DAILY 0 03/13/2022 Active Comment on above: USE DIRECTED THRE E TIMES DAILY acetaminophen 325 mg oral tablet (20 sources) Start: 6 End: 7 take 325-650 mg by mouth every six hours as needed for pain Acetaminophen 325 MG tablet Active 325 - 650 mg PO EVERY 6 HOURS NEEDED as needed for Pain 0 July 14, 2017 12:00am Complies with drug therapy acetaminophen 32 5 mg cap Take by mouth as needed. Active albuterol MDI (90 mcg/inh) [facility] free inhalation aerosol (5 sources) Start: 01-16-2021 albuterol MDI (90 mcg/inh) CFC free inhalation aerosol 0 Refill(s) Start Date: 01/16/21 Status: Ordered aspirin 81 mg delayed release oral tablet (20 sources) Platelet Aggregation Inhibitor, Nonsteroidal Anti-inflammatory Drug Start: 07-14-2017 take 1 tablet by mouth once daily Aspirin 81 MG tablet Active 81 mg PO DAILY@0800 30 0 July 14, 2017 12:00am Complies with drug therapy Comment on above: Take 81 mg by mouth once daily. azelastine hydrochloride 0.137 mg/actuat metered dose nasal spray (20 sources) Histamine-1 Receptor Antagonist take 1 spray(s) nasal route twice daily azelastine (ASTELIN, ASTEPRO) 0.1% nasal spray Use 1 [place] in the nose two times a day. Use in each nostril as directed Active Comment on above: Use 1 [place] in the n ose twice daily. Use in each nostril as directed benzonatate 200 mg oral capsule (4 sources) Non-narcotic Antitussive benzonatate (TESSALON) 200 MG PO CAPS 3 times daily as needed. Active betamethasone 0.5 mg/ml / clotrimazole 10 mg/ml topical cream (11 sources) Azole Antifungal, Corticosteroid Start: 04-17-2025 clotrimazole-beta methasone 1-0.05 % Cream Indications: Balanitis Apply to affected area twice a day 15 g 04/17/2025 Active Start: 11-17-2023 Clotrimazole-B etamethasone 1-0.05 % cream Active 1 NMA TOPICAL TWICE A DAY 45 11 10November 17, 2023 1:00am Complies with drug therapy Start: 11-17-2023 Clotrimazole-B etamethasone Active 1 APPLIC TOPICAL TWICE A DAY November 17, 2023 1:00am busPIRone hydrochloride 10 mg oral tablet (20 sources) Start: 08-20-2023 take 2 tablets by mouth twice daily Buspirone 10 mg tablet Active 20 mg PO TWICE A DAY August 20, 2023 3:08pm Anxiety Complies with drug therapy Start: 08-20-2023 take 20 mg by mouth twice graham y Buspirone Active 20 MG PO TWICE A DAY August 20, 2023 3:08pm Start: 05-07-2018 End: 08-20-2023 take 1 tablet by mouth three times daily Buspirone 10 mg tablet Discontinued 10 mg PO THREE TIMES A DAY May 07, 2018 12:00am August 20, 2023 3:13pm Anxiety Start: 01-17-2016 End: 05-07-2018 take 2 tablets by mouth three times daily as needed for anxiety Buspirone 5 MG tablet Discontinued 10 mg PO 3 TIMES DAILY NEEDED as needed for Anxiety January 17, 2016 12:00am May 07, 2018 11:15am Start: 01-17-2016 End: 05-07-2018 take 10 mg by mouth three times daily as needed Buspirone Discontinued 10 MG PO 3 TIMES DAILY NEEDED January 17, 2016 12:00am May 07, 2018 11:15am Start: 12-18-2010 take 1 tablet by aye th every six hours as needed busPIRone (BUSPAR) 10 mg tablet Take 10 mg by mouth four times daily as needed. 12/18/2010 Active Comment on above: Take 10 mg by mouth four times daily as needed. cetirizine hydrochloride 10 mg oral tablet (5 sources) Histamine-1 Receptor Antagonist Start: 10-17-19 End: 10-24-19 take 1 tablet by mouth once daily cetirizine (ZYRTEC) 10 mg tablet Take 1 tablet by mouth once daily for 7 days. 7 tablet 0 10/17/2023 10/24/2023 Active Comment on above: Take 1 tablet by [facility] once daily for 7 days. cholecalciferol 0.05 mg oral capsule (20 sources) Vitamin D Start: 12-07-19 take 1 capsule by mouth once daily Cholecalciferol (Vitamin D3) 50 mcg (2,000 unit) capsule Active 2000 U PO DAILY December 07, 2023 9:17am supplement Complies with drug therapy Start: 12-08-2018 End: 12-07-2023 take 1 capsule by mouth twice daily Cholecalciferol (Vitamin D3) 2,000 UNIT capsule Discontinued 2000 U PO TWICE A DAY December 08, 2018 12:00am December 07, 2023 9:20am supplement clotrimazole 10 mg/ml topical cream (4 sources) Azole Antifungal Start: 12-31-2024 clotrimazole (LOTRIMIN) 1 % cream Apply to affected area two times a day. 60 g 12/31/2024 Active Start: 07-28-2022 End: 08-04-2022 clotrimazole 1% topical crea m Apply 1 chandler, Topical, BID, X 7 day(s), # 45 gram(s), 0 Refill(s), Pharmacy: [id number], Cream, 172, cm, 07/28/22 10:04:00 EST, Height, 109 Start Date: 07/28/22 Stop Date: 08/04/22 Status: Ordered Co Q-10 100 mg oral capsule (5 sources) Start: 08-28-2020 Co Q-10 100 mg oral capsule Dose : 100 mg = 1 cap(s), Oral, Daily, 0 Refill(s) Start Date: 08/28/20 Status: Ordered doxycycline monohydrate 100 mg oral tablet (11 sources) Tetracycline- class Drug Start: 12-21-2024 End: 12-28-2024 take 1 tablet by mouth twice daily doxycycline monohydrate 100 mg tablet Indications: Skin infection Take 1 tablet by mouth two times a day for 7 days. 14 tablet 12/21/2024 12/28/2024 Active Start: 11-04-2024 End: 11-11-2024 take 2 tablets by mouth twice daily Doxycycline Hyclate 50 mg tablet Discontinued 100 mg PO TWICE A DAY 28 7 0 November 04, 2024 1:00am November 10, 2024 1:00am November 11, 2024 1:12am Start: 09-20-2024 End: 09-27-2024 take 1 tablet by mouth twice daily doxycycline (VIBRA-TABS) 100 mg tablet Take 1 tablet by mouth two times a day for 7 days. 14 tablet 09/20/2024 09/27/2024 Active Start: 05-01-2024 End: 05-18-2024 take 1 tablet by mouth twice daily Doxycycline Monohydrate 100 mg tablet Discontinued 100 mg PO TWICE A DAY 20 10 May 01, 2024 12:00am May 18, 2024 4:55pm econazole nitrate 10 mg/ml topical cream (20 sources) Azole Antifungal Start: 12-18-2010 End: 12-31-2024 econazole 1 % TOPICAL cream Apply to affected area once daily. 0 12/18/2010 Active End: 04-17-2025 Econazole Nitrate (SPECTAZOL E EX) 2 times daily. 04/17/2025 Discontinued Comment on above: Apply to affected ar ea once daily. 1 ml evolocumab 140 mg/ml auto-injector (12 sources) PCSK9 Inhibitor Start: 08-23-2024 Evolocumab (Repatha Sureclick) 140 mg/mL pen injector Active 140 mg SC every 2 weeks 6 August 23, 2024 1:00am Complies with drug therapy Start: 07-28-2024 End: 08-23-2024 Evolocumab (Repatha Sureclic k) 140 mg/mL pen injector Discontinued 140 mg SC EVERY MONTH 3 August 03, 2024 9:49am August 23, 2024 11:09am fluticasone propionate 0.05 mg/actuat metered dose nasal spray (20 sources) Corticosteroid Start: 08-28-2020 fluticasone 50 mcg/inh NASAL spray Dose = 1 spray(s), Intranasal, qDay, 0 Refill(s) Start Date: 08/28/20 Status: Ordered Start: 04-05-2020 Fluticasone Pr opionate 50 mcg/actuation spray,suspension Active 1 NMA INTRANASAL DAILY as needed for nasal spray April 05, 2020 11:22am Complies with drug therapy Start: 01-17-2016 End: 04-05-2020 Fluticasone Propionate 9.9 M L spray,suspension Discontinued 9.9 mL NS DAILY January 17, 2016 12:00am April 05, 2020 11:25am nasal spray fluticasone (BRITTNEY NASE) 50 MCG/ACT NA SUSP Active take 1 spray(s) nasa l route once daily fluticasone (FLONASE) 50 mcg/actuation nasal spray Use 1 [place] in each nostril once daily. Active Comment on above: Use 1 [place] in each nostril once daily. 60 actuat formoterol fumarate 0.005 mg/actuat / mometasone furoate 0.2 mg/actuat metered dose inhaler (20 sources) Corticosteroid, beta2-Adrenergic Agonist mometasone Furo -Formoterol Fum (DULERA) 200-5 MCG/puff IN AERO 2 times daily. Active mometasone-formo terol (DULERA) 200-5 mcg/actuation inhaler Inhale as instructed two times a day. Active Comment on above: Inhale as instructed twice daily. furosemide 40 mg oral tablet (20 sources) Loop Diuretic Start: 02-17-2025 End: 02-21-2025 Furosemide 40 mg tablet Active 40 mg PO .COMPLEX 90 February 21, 2025 9:16am 40 mg orally 2 tablets in the AM and 1 tablet in the afternoon; Complies with drug therapy Start: 09-18-2022 End: 07-13-2023 take 80 mg by mouth in the morning, then take 40 mg by mouth in the evening Furosemide Discontinued 0 PO .COMPLEX 270 September 18, 2022 11:06am July 13, 2023 11:14am 80mg in AM and 40mg in PM; Start: 03-14-2022 End: 02-17-2025 Furosemide 40 mg tablet Discontinued 80 mg PO .COMPLEX 90 0 January 23, 2025 9:48am February 17, 2025 9:19am Pt is OUT, awaiting mail order RX 80 mg orally; takes 80mg in the am and 40mg in the afternoon Start: 03-14-2022 End: 09-18-2022 take 80 mg by mouth in the morning, then take 40 mg by mouth in the evening Furosemide Discontinued 40 MG PO .COMPLEX March 14, 2022 10:00am September 18, 2022 11:06am 40 mg orally ; 80mg in AM and 40mg in PM; Start: 11-29-2021 End: 03-14-2022 take 40 mg by mouth in the morning, then take 20 mg by mouth in the evening Furosemide Discontinued 60 MG PO .COMPLEX November 29, 2021 11:45am March 14, 2022 10:03am 60 mg PO; 40mg in AM and 20mg in PM Start: 10-04-2021 End: 03-14-2022 take 1 tablet by mouth twice daily Furosemide 40 mg tablet Discontinued 40 mg PO TWICE A DAY 180 October 04, 2021 12:38pm November 29, 2021 11:46am Start: 08-22-2021 End: 10-04-2021 take 1 tablet by mouth once daily Furosemide 40 mg tablet Discontinued 40 mg PO DAILY August 22, 2021 1:00am October 04, 2021 12:37pm Start: 03-27-2021 End: 05-10-2021 take 1 tablet by mouth once daily Furosemide (Lasix) 40 mg tablet Discontinued 40 mg PO DAILY 13 08March 27, 2021 12:00am May 10, 2021 10:03am On Hold: leg cramps furosemide (LASI X) 40 mg/4 mL soln Active furosemide (LASI X) 40 mg/4 mL soln Active glyBURIDE 2.5 mg oral tablet (20 sources) Sulfonylurea Start: 05-03-2025 take 1 tablet by mouth twice daily Glyburide 2.5 mg tablet Active 2.5 mg PO TWICE A DAY May 03, 2025 12:00am Complies with drug therapy Start: 10-15-2023 End: 05-03-2025 take 1 tablet by mouth twice daily Glyburide 1.25 mg tablet Discontinued 1.25 mg PO TWICE A DAY December 07, 2023 9:20am May 03, 2025 8:59am Start: 10-15-2023 End: 12-07-2023 take 1 mg by mouth twice daily Glyburide Discontinued MG PO TWICE A DAY October 15, 2023 1:00am December 07, 2023 9:20am Start: 10-12-2020 End: 10-15-2023 take 2 tablets by mouth twice daily Glyburide 2.5 mg tablet Discontinued 5 mg PO TWICE A DAY October 12, 2020 10:39am October 15, 2023 2:54pm diabetes Start: 10-12-2020 End: 10-15-2023 take 5 mg by mouth twice daily Glyburide Discontinued 5 MG PO TWICE A DAY October 12, 2020 10:39am October 15, 2023 2:54pm Start: 04-05-2020 End: 10-12-2020 take 1 tablet by mouth in the morning, then take 2 tablets by mouth at bedtime Glyburide 2.5 mg tablet Discontinued 2.5 mg PO .COMPLEX April 05, 2020 11:23am October 12, 2020 10:41am diabetes 2.5 mg PO on in the morning and 2 at bedtime; Start: 07-02-2018 End: 10-12-2020 take 1 tablet by mouth once daily Glyburide 2.5 mg tablet Discontinued 2.5 mg PO DAILY July 02, 2018 12:00am April 05, 2020 11:25am diabetes Comment on above: Take 2.5 mg by mouth daily with breakfast. hydrOXYzine hydrochloride 25 mg oral tablet (5 sources) Antihistamine Start: 11-07-19 take 1 tablet by mouth three times daily as needed for anxiety Hydroxyzine Hcl 25 mg tablet Active 25 mg PO THREE TIMES A DAY as needed for anxiety 20 0 November 07, 2024 1:00am Complies with drug therapy Start: 04-30-2022 End: 05-07-2022 hydrOXYzine hydrochloride 25 mg oral tablet Dose : 25 mg = 1 tab(s), Oral, BID, X 7 day(s), # 14 tab(s), 0 Refill(s), 05/07/22 14:01:00 EDT, Pharmacy: [id number], BPH with obstruction/lower urinary tract symptoms Diabetes mellitus, 171.5, cm, 04/30/22 13:14:00 EDT, Height Start Date: 04/30/22 Stop Date: 05/07/22 Status: Ordered insulin isophane, human 100 unt/ml injectable suspension (20 sources) Start: 05-18-2024 inject 50 [IU] by subcutaneous injection in the morning, then inject 40 [IU] by subcutaneous injection at bedtime Insulin Nph Isoph U-100 Human 100 unit/mL suspension Active 0 .ROUTE .COMPLEX 0 3 0 May 18, 2024 5:01pm diabetes subcutaneously; 50 units in am, 40 units in hs; Hold if glucose less than 130 mg/dl Complies with drug therapy Start: 08-20-2023 End: 05-18-2024 Insulin Nph Isoph U-100 Sandy n 100 unit/mL suspension Discontinued 0 SC TWICE A DAY August 20, 2023 3:10pm May 18, 2024 5:01pm diabetes 56 units in am, 44 units in hs; Start: 03-14-2022 End: 08-20-2023 inject 46 [IU] by subcutaneous injection twice daily in the morning, then inject 42 [IU] by subcutaneous injection twice daily in the evening Insulin Nph Isoph U-100 Human 100 unit/mL suspension Discontinued 0 SC TWICE A DAY 06 16July 25, 2023 12:12pm August 20, 2023 3:13pm diabetes 46 units in am, 42 units in evening subcut twice a day; hold if FASTING or HS glucose less than 130 mg/dl Start: 01-18-2022 NOVOLIN N NPH U-100 INSULIN 100 unit/mL injection INJECT 40 UNITS SUBCUTANEOUSLY IN THE MORNING AND IN THE EVENING 01/18/2022 Active Start: 08-22-2021 End: 03-14-2022 inject 36 [IU] by subcutaneous injection twice daily in the morning, then inject 40 [IU] by subcutaneous injection twice daily in the evening Insulin Nph Isoph U-100 Human 100 unit/mL suspension Discontinued 0 SC TWICE A DAY August 22, 2021 10:04am March 14, 2022 10:03am diabetes 36 units in am, 40 units in evening subcut twice a day; hold if FASTING or HS glucose less than 130 mg/dl Start: 10-12-2020 End: 08-22-2021 inject 34 [IU] by subcutaneous injection twice daily in the morning, then inject 38 [IU] by subcutaneous injection twice daily in the evening Insulin Nph Isoph U-100 Human 100 unit/mL suspension Discontinued 0 SC TWICE A DAY October 12, 2020 10:37am August 22, 2021 10:08am diabetes 34 units in am, 38 units in evening subcut twice a day; hold if FASTING or HS glucose less than 130 mg/dl Start: 04-05-2020 End: 10-12-2020 inject 30 [IU] by subcutaneous injection twice daily in the morning, then inject 34 [IU] by subcutaneous injection twice daily in the evening Insulin Nph Isoph U-100 Human 100 unit/mL suspension Discontinued 0 SC TWICE A DAY April 05, 2020 11:23am October 12, 2020 10:41am diabetes 30 units in am, 34 units in evening subcut twice a day; hold if FASTING or HS glucose less than 130 mg/dl Start: 12-11-2018 End: 04-05-2020 inject 100 [IU] by subcutaneous injection twice daily at bedtime Insulin Nph Isoph U-100 Human 100 UNIT/ML suspension Discontinued 30 U SQ TWICE A DAY 0 0 December 11, 2018 8:46am April 05, 2020 11:25am diabetes hold if FASTING or HS glucose less than 130 mg/dl Start: 12-11-2018 End: 04-05-2020 inject 130 mg by subcutaneous injection twice daily at bedtime Insulin Nph Isoph U-100 Human Discontinued 30 UNIT SQ TWICE A DAY 0 December 11, 2018 8:46am April 05, 2020 11:25am hold if FASTING or HS glucose less than 130 mg/dl Start: 07-13-2017 End: 12-11-2018 Insulin Nph Isoph U-100 Sandy n 100 UNIT/ML suspension Discontinued 32 U SQ TWICE A DAY July 13, 2017 12:00am December 11, 2018 8:46am diabetes Comment on above: INJECT 40 UNITS SUBC UTANEOUSLY IN THE MORNING AND IN THE EVENING 3 ml insulin lispro 100 unt/ml pen injector (13 sources) Insulin Analog Start: 05-18-2024 Insulin Lispro (Humalog Kwikpen Insulin) 100 unit/mL Insulin Pen Active 0 U SC BEFORE MEALS AND AT BEDTIME Protocol: Suggested for:- Patients on Total Daily Insulin Dose of 56-80 units- Patient who are known to be insulin resistant or septicHIGH MEDIUM DOSING ALGORITHM Condition: 150-199 mg/dl = 2 units Condition: 200-259 mg/dl = 4 units Condition: 260-324 mg/dl = 6 units Condition: 325-374 mg/dl = 8 units Condition: 375-409 mg/dl = 10 units Condition: 410-449 mg/dl = 11 units Condition: Greater than 449 call physician 0 0 May 18, 2024 12:00am Please contact the information source for Protocol details. Complies with drug therapy Start: 05-18-2024 Insulin Lispro (Humalog Kwikpen Insulin) 100 unit/mL Insulin Pen Active 0 U SC BEFORE MEALS AND AT BEDTIME 0 0 May 18, 2024 12:00am Please contact the information source for Protocol details. Start: 07-25-2023 End: 12-07-2023 Insulin Lispro 100 unit/mL I nsulin Pen Discontinued 0 U SC BEFORE MEALS AND AT BEDTIME Protocol: - Use for Total Daily Dose of Insulin 56-80 units- Patient who are insulin resistant or septicHIGH MEDIUM DOSING ALGORITHM Condition: 150-199 mg/dl = 2 units Condition: 200-259 mg/dl = 4 units Condition: 260-324 mg/dl = 6 units Condition: 325-374 mg/dl = 8 units Condition: 375-409 mg/dl = 10 units Condition: 410-449 mg/dl = 11 units Condition: Greater than 449 call physician 0 0 July 25, 2023 1:00am December 07, 2023 9:18am Please contact the information source for Protocol details. Start: 07-25-2023 End: 12-07-2023 Insulin Lispro 100 unit/mL I nsulin Pen Discontinued 0 U SC BEFORE MEALS AND AT BEDTIME 0 0 July 25, 2023 1:00am December 07, 2023 9:18am Please contact the information source for Protocol details. Start: 07-25-2023 End: 12-07-2023 Insulin Lispro Discontinued 0 UNIT SC BEFORE MEALS AND AT BEDTIME 0 July 25, 2023 1:00am December 07, 2023 9:18am Novolin R (5 sources) Insulin Start: 08-28-2020 inject 36 [IU] by subcutaneous injection once daily NovoLIN R See Instructions, Subcutaneous sliding scale max 36 units daily, 0 Refill(s) Start Date: 08/28/20 Status: Ordered magnesium oxide 400 mg oral tablet (20 sources) Start: 12-08-2018 take 1 tablet by mouth once daily Magnesium Oxide 400 MG tablet Active 400 mg PO DAILY December 08, 2018 12:00am supplement Complies with drug therapy metFORMIN hydrochloride 1000 mg oral tablet (20 sources) Biguanide Start: 01-17-2016 take 1 tablet by mouth twice daily at mealtime Metformin 1,000 MG tablet Active 1000 mg PO TWICE DAILY WITH MEALS January 17, 2016 12:00am diabetes Complies with drug therapy Comment on above: Take 1,000 mg by aye th twice daily with meals. montelukast 10 mg oral tablet (20 sources) Leukotriene Receptor Antagonist Start: 01-17-2016 take 1 tablet by mouth at bedtime Montelukast 10 MG tablet Active 10 mg PO AT BEDTIME January 17, 2016 12:00am allergies Complies with drug therapy Comment on above: Take 10 mg by mouth daily at bedtime. moxifloxacin-triam cinolone (5 sources) Start: 01-16-2021 moxifloxacin-triam cinolone 0 Refill(s) Start Date: 01/16/21 Status: Ordered nitrofurantoin, macrocrystals 25 mg / nitrofurantoin, monohydrate 75 mg oral capsule (1 source) Nitrofuran Antibacterial Start: 07-14-2024 End: 07-14-2024 nitrofurantoin monohydrate and macrocrystal 100 mg cap(s) (MACROBID) nystatin 100 unt/mg topical powder (19 sources) Polyene Antifungal Start: 11-18-2023 End: 11-28-2024 nystatin 100,000 units/g topical powder Apply 1 chandler, Topical, TID, # 30 gram(s), 1 Refill(s), Pharmacy: [id number], Powder, 168, cm, 11/18/23 14:21:00 EST, Height, 106, kg, 11/18/23 14:21:00 EST, Dosing Weight Start Date: 11/18/23 Stop Date: 11/28/24 Status: Ordered Start: 01-02-2023 End: 01-04-2024 nystatin 100,000 units/g top ical cream Apply 1 chandler, Topical, BID, # 30 gram(s), 2 Refill(s), Pharmacy: [id number], Cream, 170, cm, 01/02/23 7:07:00 EDT, Height, 108 Start Date: 01/02/23 Stop Date: 01/04/24 Status: Ordered Start: 03-14-2022 End: 09-18-2022 Nystatin 100,000 unit/gram c ream Discontinued 1 NMA TOPICAL TWICE A DAY March 14, 2022 12:00am September 18, 2022 10:56am Start: 03-14-2022 End: 09-18-2022 Nystatin Discontinued 1 APPL IC TOPICAL TWICE A DAY March 14, 2022 12:00am September 18, 2022 10:56am omeprazole 40 mg delayed release oral capsule (18 sources) Proton Pump Inhibitor Start: 10-15-2023 End: 12-07-2023 take 1 capsule by mouth twice daily Omeprazole 40 mg capsule,delayed release(DR/EC) Active 40 mg PO TWICE A DAY December 07, 2023 9:19am Complies with drug therapy Start: 10-15-2023 End: 12-07-2023 take 1 mg by mouth twice daily Omeprazole Discontinued MG PO TWICE A DAY October 15, 2023 1:00am December 07, 2023 9:20am omeprazole [address] daily. Active omeprazole 40 mg / sodium bicarbonate 1680 mg powder for oral suspension (20 sources) Proton Pump Inhibitor Omeprazole -Sodium Bicarbonate 40-1,680 mg pack Take by mouth once daily. Active Omeprazole-Sodiu m Bicarbonate 40-1,680 mg pack Take by mouth. Active Oxygen (4 sources) oxygen IN gas 2 L. Active OXYGEN, HOME THERAPY, (6 sources) OXYGEN, HOME THE RAPY, Inhale 3 L/min as instructed as directed. Active pitavastatin calcium 4 mg oral tablet (20 sources) HMG-CoA Reductase Inhibitor Pitavastatin Calcium (LIVALO) 4 MG PO TABS daily. Active take 1 tablet by mouth once graham y Pitavastatin (LIVALO) 2 mg ORAL Tab Take 2 mg by mouth once daily. Active Comment on above: Take by mouth. pramipexole dihydrochloride 1 mg oral tablet (20 sources) Nonergot Dopamine Agonist Start: 8 take 1 mg by mouth at bedtime Pramipexole Active 2 MG PO AT BEDTIME May 07, 2018 11:12am 1 mg PO 2 tablets by mouth at bedtime Start: 12-18-2010 End: 05-07-2018 take 1 tablet by mouth twice daily Pramipexole 1 MG tablet Discontinued 1 mg PO TWICE A DAY January 17, 2016 12:00am May 07, 2018 11:16am headache pramipexole (NOLVIA APEX) 1 MG PO TABS daily. Active Comment on above: Take 1 mg by mouth t wice daily. SITagliptin 100 mg oral tablet (20 sources) Dipeptidyl Peptidase 4 Inhibitor sitaGLIPtin (JANUVIA ) 100 MG PO TABS daily. Active Comment on above: Take 100 mg by mouth once daily. tamsulosin hydrochloride 0.4 mg oral capsule (20 sources) alpha-Adrenergic Betsey Start: 06-19-2025 tamsulosin (FLOMAX) 0.4 mg Indications: BPH with obstruction/lower urinary tract symptoms , Urine retention Take 1 capsule by mouth two times a day. Patient should start on June 19, 2025. 180 capsule 3 06/19/2025 Active Start: 06-21-2024 End: 03-21-2025 take 1 capsule by mouth twice daily tamsulosin (FLOMAX) 0.4 mg Indications: BPH with obstruction/lower urinary tract symptoms , Urine retention Take 1 capsule by mouth two times a day. 180 capsule 3 06/21/2024 03/21/2025 Discontinued Start: 05-18-2024 End: 06-21-2024 take 1 capsule by mouth once daily Tamsulosin 0.4 mg Capsule Active 0.4 mg PO DAILY@1700 0 0 May 18, 2024 12:00am Complies with drug therapy triamcinolone acetonide 1 mg/ml topical cream (5 sources) Corticosteroid Start: 01-16-2021 triamcinolone 0.1% topical cream 0 Refill(s), 103.8 Start Date: 01/16/21 Status: Ordered ubidecarenone 100 mg oral capsule (20 sources) Start: 12-08-2018 take 10 capsules by mouth once daily Coenzyme Q10 100 MG capsule Active 100 mg PO DAILY December 08, 2018 12:00am supplement Complies with drug therapy ubidecarenone Q- 10 (COENZYME Q-10) 10 mg cap Take by mouth twice daily. Active Comment on above: Take by mouth twice daily. Vitamin B Complex (12 sources) Start: 03-14-2022 take 1 tablet by mouth once daily Vitamin B Complex Active 1 TABLET PO DAILY March 13, 2022 11:00pm Start: 03-14-2022 take 1 tablet by mouth once da sylvie Vitamin B Complex Active 1 TABLET PO DAILY March 14, 2022 12:00am Vitamin B Complex tablet (4 sources) Start: 03-14-2022 Vitamin B Comp monica tablet Active 1 {tbl} PO DAILY March 14, 2022 12:00am Complies with drug therapy Start: 03-14-2022 Vitamin B Comp monica tablet Active 1 {tbl} PO DAILY March 14, 2022 12:00am Vitamin B12 2500 mcg subling ual tablet (5 sources) Start: 08-28-2020 Vitamin B12 25 00 mcg sublingual tablet Dose : 2,500 mcg = 1 tab(s), Sublingual, qDay, 0 Refill(s) Start Date: 08/28/20 Status: Ordered Completed/Discontinued Medications Medication Drug Class(es) Dates Sig (Normalized) Sig (Original) acetaminophen 325 mg / oxyCODONE hydrochloride 5 mg oral tablet (20 sources) Opioid Agonist Start: 01-22-2016 End: 10-23-2017 Oxycodone-Acetamino phen 1 TABLET tablet Discontinued 1 {tbl} PO EVERY 6 HOURS NEEDED as needed for Pain 0 0 July 14, 2017 10:27am October 23, 2017 10:31am Start: 01-22-2016 End: 10-23-2017 take 1 tablet by mouth every six hours as needed Oxycodone-Acetaminophen Discontinued 1 TABLET PO EVERY 6 HOURS NEEDED 0 July 14, 2017 10:27am October 23, 2017 10:31am [id number] actuat albuterol 0.09 mg/actuat metered dose inhaler (20 sources) beta2-Adrenergic Agonist Start: 08-01-2021 take 1 puff(s) by inhalation every four hours Albuterol Sulfate (Ventolin Hfa) 90 mcg/actuation HFA aerosol inhaler Active 2 PUFF INHALATION Q4H August 01, 2021 9:43am Start: 07-18-2020 End: 10-28-2023 Albuterol Sulfate (Ventolin Hfa) 90 mcg/actuation HFA aerosol inhaler Discontinued 2 NMA INHALATION Q4H as needed for shortness of breath or wheezing 01 03September 16, 2022 9:50am October 28, 2023 2:33pm Start: 07-18-2020 End: 10-28-2023 take 1 puff(s) by inhalation every four hours Albuterol Sulfate (Ventolin Hfa) 90 mcg/actuation HFA aerosol inhaler Discontinued 2 PUFF INHALATION Q4H September 16, 2022 9:50am October 28, 2023 2:33pm albuterol (2.5 M G/3ML) 0.083% IN inhalation solution Active albuterol (PROVE NTIL HFA) 108 (90 BASE) MCG/ACT IN AERS 4 times daily as needed. Active ALBUTEROL SULFAT E (PROVENTIL HFA INHALATION) Inhale as instructed. Active ALBUTEROL SULFAT E (PROVENTIL HFA INHALATION) Inhale as instructed. 0 Active Comment on above: Inhale as instructed . ALPRAZolam 0.25 mg oral tablet (20 sources) Benzodiazepine Start: 01-17-20 End: 05-18-20 24 take 1 tablet by mouth once daily as needed for anxiety Alprazolam 0.25 mg tablet Discontinued 0.25 mg PO DAILY as needed for anxiety October 12, 2020 10:38am May 18, 2024 5:01pm Comment on above: Take 0.25 mg by mout h at bedtime as needed. amLODIPine 5 mg oral tablet (20 sources) Dihydropyridine Calcium Channel Betsey Start: 03-14-20 22 End: 03-24-20 23 take 1 tablet by mouth once daily Amlodipine 5 mg tablet Discontinued 5 mg PO DAILY 90 3 September 18, 2022 11:05am March 24, 2023 1:55pm atropine sulfate 0.025 mg / diphenoxylate hydrochloride 2.5 mg oral tablet (20 sources) Anticholinergic, Cholinergic Muscarinic Antagonist, Antidiarrheal Start: 01-17-20 16 End: 10-23-19 18 Diphenoxylate-Atrop ine 1 EACH tablet Discontinued 0 NMA PO 4 TIMES DAILY NEEDED as needed for Irritable Bowel Syndrome January 17, 2016 12:00am October 23, 2017 10:29am Start: 01-17-2016 End: 10-23-2017 Diphenoxylate-Atropine Disco ntinued 0 EACH PO 4 TIMES DAILY NEEDED January 17, 2016 12:00am October 23, 2017 10:29am Comment on above: Take 1 tablet by aye th four times daily as needed. capsaicin 0.25 mg/ml / menthol 100 mg/ml / methyl salicylate 280 mg/ml topical lotion (18 sources) Start: 6 End: 8 apply 1 dose topically once daily as needed Capsaicin-Methyl Ervin-Menthol 120 ML lotion Discontinued 0 mL TP DAILY NEEDED as needed for Topical Irritations January 17, 2016 12:00am October 23, 2017 10:32am carvedilol 12.5 mg oral tablet (20 sources) alpha-Adrenergic Betsey, beta-Adrenergic Betsey Start: End: take 1 tablet by mouth twice daily at mealtime Carvedilol 12.5 mg tablet Discontinued 12.5 mg PO TWICE A DAY December 07, 2023 9:17am December 07, 2023 9:58am This is a dose increase must administer with a meal/food Start: 12-07-2023 End: 01-16-2025 take 1 tablet by mouth twice daily at mealtime Carvedilol 25 mg tablet Active 25 mg PO TWICE A DAY 180 January 16, 2025 10:00am must administer with a meal/food Complies with drug therapy Start: 07-22-2023 End: 12-07-2023 take 6.25 mg by mouth twice daily at mealtime Carvedilol 12.5 mg tablet Discontinued 6.25 mg PO TWICE A DAY July 22, 2023 1:00am December 07, 2023 9:20am This is a dose increase must administer with a meal/food Start: 07-22-2023 End: 12-07-2023 take 6.25 mg by mouth twice daily at mealtime Carvedilol Discontinued 6.25 MG PO TWICE A DAY July 22, 2023 1:00am December 07, 2023 9:20am must administer with a meal/food Start: 04-10-2023 End: 07-22-2023 take 1 tablet by mouth twice daily at mealtime Carvedilol 12.5 mg tablet Discontinued 12.5 mg PO TWICE A DAY 180 April 10, 2023 12:00am July 22, 2023 9:07pm This is a dose increase must administer with a meal/food Start: 03-24-2023 End: 04-10-2023 take 2 tablets by mouth twice daily at mealtime Carvedilol 6.25 mg tablet Discontinued 12.5 mg PO TWICE A DAY March 24, 2023 1:56pm April 10, 2023 9:57am must administer with a meal/food Start: 03-24-2023 End: 04-10-2023 take 12.5 mg by mouth twice daily at mealtime Carvedilol Discontinued 12.5 MG PO TWICE A DAY March 24, 2023 1:56pm April 10, 2023 9:57am must administer with a meal/food Start: 03-14-2022 End: 03-24-2023 take 1 tablet by mouth twice daily at mealtime Carvedilol 6.25 mg tablet Discontinued 6.25 mg PO TWICE A DAY March 14, 2022 12:00am March 24, 2023 1:58pm must administer with a meal/food Start: 09-11-2021 End: 03-14-2022 Carvedilol 3.125 mg tablet Discontinued 0 .ROUTE .COMPLEX 180 3 September 11, 2021 5:50pm March 14, 2022 9:58am TAKE 1 TABLET TWICE DAILY Start: 08-22-2021 End: 09-11-2021 take 2 tablets by mouth twice daily Carvedilol 3.125 mg tablet Discontinued 6.25 mg PO TWICE A DAY 180 3 August 22, 2021 10:43am September 11, 2021 5:51pm Start: 08-22-2021 End: 03-14-2022 Carvedilol Discontinued 0 .R OUTE .COMPLEX 180 September 11, 2021 5:50pm March 14, 2022 9:58am TAKE 1 TABLET TWICE DAILY Start: 08-28-2020 carvedilol 3.1 25 mg oral tablet Dose : 3.125 mg = 1 tab(s), Oral, BID, 0 Refill(s) Start Date: 08/28/20 Status: Ordered Start: 07-14-2017 End: 08-22-2021 take 1 tablet by mouth twice daily Carvedilol 3.125 mg tablet Discontinued 3.125 mg PO TWICE A DAY 180 3 November 12, 2020 11:31am August 22, 2021 10:45am Comment on above: Take 3.125 mg by aye th twice daily with meals. cefdinir 300 mg oral capsule (20 sources) Cephalosporin Antibacterial Start: 9 End: 9 take 1 capsule by mouth twice daily Cefdinir 300 mg capsule Discontinued 300 mg PO TWICE A DAY August 01, 2019 1:00am August 10, 2019 11:46am Start: 12-11-2018 End: 05-04-2019 take 1 capsule by mouth twice daily Cefdinir 300 MG capsule Discontinued 300 mg PO TWICE A DAY 14 0 December 11, 2018 12:00am May 04, 2019 8:57am cephalexin 500 mg oral capsule (9 sources) Cephalosporin Antibacterial Start: 07-24-2023 End: 08-20-2023 take 1 capsule by mouth three times daily Cephalexin 500 mg capsule Discontinued 500 mg PO THREE TIMES A DAY 20 0 July 24, 2023 1:00am August 20, 2023 3:09pm tolerated cefazolin without issue clindamycin 300 mg oral capsule (17 sources) Lincosamide Antibacterial Start: 10-09-2024 End: 10-20-2024 take 1 capsule by mouth every six hours Clindamycin Hcl (Cleocin Hcl) 300 mg capsule Discontinued 300 mg PO EVERY 6 HOURS 28 7 0 October 09, 2024 1:00am October 20, 2024 12:12pm Start: 09-28-2024 End: 10-03-2024 take 3 capsules by mouth three times daily clindamycin (CLEOCIN) 150 mg capsule Take 3 capsules by mouth three times a day for 5 days. 45 capsule 09/28/2024 10/03/2024 Active Start: 07-22-2023 End: 07-24-2023 take 1 capsule by mouth every twelve hours Clindamycin Hcl 300 mg capsule Discontinued 300 mg PO Q12H July 22, 2023 1:00am July 24, 2023 3:12pm clopidogrel 75 mg oral tablet (20 sources) [id number] Platelet Inhibitor Start: 12-08-2018 End: 05-03-2025 take 1 tablet by mouth once daily Clopidogrel 75 mg tablet Discontinued 75 mg PO DAILY 90 3 December 06, 2024 3:08pm May 03, 2025 9:29am Start: 10-01-2017 End: 05-10-2018 take 1 tablet by mouth once daily Clopidogrel 75 mg tablet Discontinued 75 mg PO daily October 23, 2017 10:06am May 10, 2018 11:50am Comment on above: Take 75 mg by mouth once daily. cyclobenzaprine hydrochloride 10 mg oral tablet (18 sources) Muscle Relaxant Start: End: Cyclobenzaprine 10 MG tablet Discontinued 0 mg PO DAILY January 17, 2016 12:00am October 23, 2017 10:30am muscle relaxer dapagliflozin 10 mg oral tablet (20 sources) Sodium-Glucose Cotransporter 2 Inhibitor Start: 024 End: take 1 tablet by mouth once daily Dapagliflozin Propanediol (Farxiga) 10 mg tablet Discontinued 10 mg PO daily 90 August 03, 2024 9:48am May 03, 2025 8:58am Start: 01-17-2016 End: 10-23-2017 take 1 tablet by mouth once daily Dapagliflozin Propanediol 10 MG tablet Discontinued 0 mg PO DAILY January 17, 2016 12:00am October 23, 2017 10:30am diabetes Eucerin Advanced Repair topical lotion (5 sources) Start: 04-30-2022 End: 01-25-2023 Eucerin Advanced Repair topical lotion 1 application, Topical, QID, # 450 mL, 2 Refill(s), Pharmacy: [facility], Diabetes mellitus, 171.5, cm, 04/30/22 13:14:00 EDT, Height Start Date: 04/30/22 Stop Date: 01/25/23 Status: Ordered ezetimibe 10 mg oral tablet (18 sources) Dietary Cholesterol Absorption Inhibitor Start: 04-05-2020 End: 04-10-2020 take 1 tablet by mouth once daily Ezetimibe (Zetia) 10 mg tablet Discontinued 10 mg PO DAILY 30 April 05, 2020 12:00am April 10, 2020 8:42am fluconazole 150 mg oral tablet (5 sources) Azole Antifungal Start: 01-24-2025 End: 01-24-2025 fluconazole (DIFLUCAN) 150 mg tablet Indications: Tinea cruris Take 1 tablet by mouth one time only for 1 dose. Repeat in 3 days as needed. 2 tablet 01/24/2025 01/24/2025 Start: 04-30-2022 End: 05-06-2022 take 1 tablet by mouth every other day Diflucan 100 mg oral tablet 1 tab, Oral, Every other day, X 6 day(s), # 3 cap(s), 0 Refill(s), 05/06/22 15:06:00 EDT, Pharmacy: [id number], Cutaneous candidiasis, 171.5, cm, 04/30/22 13:14:00 EDT, Height, 104.9, kg, 04/30/22 13:14:00 EDT, Dosing Weight Start Date: 04/30/22 Stop Date: 05/06/22 Status: Ordered Start: 03-20-2021 End: 07-11-2022 Diflucan 150 mg oral tablet Dose : 150 mg = 1 tab(s), Oral, q72h, # 3 tab(s), 1 Refill(s), Pharmacy: [facility] [id number], 172.7, cm, 02/15/21 8:21:00 EDT, Height, 103.1, kg, 02/15/21 8:21:00 EDT, Dosing Weight Start Date: 05/09/21 Stop Date: 05/09/21 Status: Ordered Fluticasone Propion-Salmeterol (14 sources) Corticosteroid, beta2-Adrenergic Agonist Start: 10-28-2023 End: 07-28-2024 Fluticasone Propion-Salmeterol (Wixela Inhub) 500-50 mcg/dose blister with device Discontinued 1 NMA INHALATION TWICE A DAY 60 3 October 28, 2023 1:00am July 28, 2024 2:28pm Start: 10-28-2023 End: 07-28-2024 Fluticasone Propion-Salmeter ol (Wixela Inhub) 500-50 mcg/dose blister with device Discontinued 1 NMA INHALATION TWICE A DAY 60 October 28, 2023 1:00am July 28, 2024 2:28pm Start: 10-28-2023 Fluticasone Pr opion-Salmeterol (Wixela Inhub) 500-50 mcg/dose blister with device Active 1 INH INHALATION TWICE A DAY 60 October 28, 2023 1:00am Start: 10-15-2023 End: 10-28-2023 Fluticasone Propion-Salmeter ol (Advair Diskus) 500-50 mcg/dose blister with device Discontinued 1 NMA INHALATION TWICE A DAY 60 6 October 15, 2023 1:00am October 28, 2023 2:31pm Start: 10-15-2023 End: 10-28-2023 Fluticasone Propion-Salmeter ol (Advair Diskus) 500-50 mcg/dose blister with device Discontinued 1 NMA INHALATION TWICE A DAY 60 October 15, 2023 1:00am October 28, 2023 2:31pm Start: 10-15-2023 End: 10-28-2023 Fluticasone Propion-Salmeter ol (Advair Diskus) 500-50 mcg/dose blister with device Discontinued 1 INH INHALATION TWICE A DAY 60 October 15, 2023 1:00am October 28, 2023 2:31pm gabapentin 300 mg oral capsule (18 sources) Anti-epileptic Agent Start: 01-17-2016 End: 10-23-2017 Gabapentin 300 MG capsule Discontinued 0 mg PO 3 TIMES DAILY WITH MEALS January 17, 2016 12:00am October 23, 2017 10:29am neuropathy 12 hr guaiFENesin 1200 mg extended release oral tablet (4 sources) Start: 05-18-2024 End: 07-28-2024 take 1 tablet by mouth twice daily, then take 1 tablet by mouth every twelve hours Guaifenesin (Mucus Relief Er) 1,200 mg Tablet Extended Release 12hr Discontinued 1200 mg PO TWICE A DAY 14 7 0 May 18, 2024 12:00am July 28, 2024 2:27pm ibuprofen 200 mg oral tablet (18 sources) Nonsteroidal Anti-inflammatory Drug Start: 01-17-2016 End: 07-14-2017 take 1 tablet by mouth every four hours as needed for pain Ibuprofen (Motrin Ib) 200 MG tablet Discontinued 200 mg PO EVERY 4 HOURS NEEDED as needed for Mild-Mod Pain (1-5/10) January 17, 2016 12:00am July 14, 2017 10:25am 24 hr isosorbide mononitrate 30 mg extended release oral tablet (20 sources) Nitrate Vasodilator Start: 03-24-2023 End: 02-10-2025 take 1 tablet by mouth once daily, then take 1 tablet by mouth every twenty-four hours Isosorbide Mononitrate 30 mg tablet extended release 24 hr Discontinued 30 mg PO DAILY 90 July 05, 2023 10:36am February 10, 2025 2:46pm Start: 10-23-2017 End: 03-24-2023 take 1 tablet by mouth once daily, then take 2 tablets by mouth every twenty-four hours Isosorbide Mononitrate 30 mg tablet extended release 24 hr Discontinued 15 mg PO DAILY 45 July 02, 2022 9:09am March 24, 2023 1:58pm Start: 07-17-2017 End: 10-23-2017 Isosorbide Mononitrate 30 MG tablet extended release 24 hr Discontinued 30 mg PO July 17, 2017 12:00am October 23, 2017 10:53am Comment on above: Take 30 mg by mouth once daily. levoFLOXacin 750 mg oral tablet (4 sources) Quinolone Antimicrobial Start: 10-09-19 End: 10-20-19 take 1 tablet by mouth once daily Levofloxacin 750 mg tablet Discontinued 750 mg PO DAILY 7 7 0 October 09, 2024 1:00am October 20, 2024 12:11pm linezolid 600 mg oral tablet (9 sources) Oxazolidinone Antibacterial Start: 07-24-20 End: 08-20-20 take 1 tablet by mouth twice daily Linezolid 600 mg tablet Discontinued 600 mg PO TWICE A DAY 14 0 July 24, 2023 1:00am August 20, 2023 3:12pm ok to take with low dose buspar losartan potassium 50 mg oral tablet (20 sources) Angiotensin 2 Receptor Betsey Start: 01-17-20 End: 03-14-20 take 1 tablet by mouth at bedtime Losartan 50 mg tablet Discontinued 50 mg PO AT BEDTIME 90 3 September 04, 2021 11:33am March 14, 2022 10:40am blood pressure/heart Comment on above: Take 50 mg by mouth once daily. metOLazone 2.5 mg oral tablet (12 sources) Thiazide-like Diuretic Start: 07-28-20 End: 09-12-20 Metolazone 2.5 mg tablet Discontinued 2.5 mg PO .Thu, Weds, Thu 90 3 September 02, 2024 3:55pm September 12, 2024 4:21pm 24 hr metoprolol succinate 25 mg extended release oral tablet (20 sources) beta-Adrenergic Betsey Start: 01-17-20 End: 07-14-20 take 1 tablet by mouth at bedtime Metoprolol Succinate 25 MG tablet Discontinued 25 mg PO AT BEDTIME January 17, 2016 12:00am July 14, 2017 10:25am Comment on above: Take 25 mg by mouth once daily. nitroglycerin 0.4 mg sublingual tablet (20 sources) Nitrate Vasodilator Start: 08-28-20 nitroglycerin 0.4 mg sublingual spray mg = spray(s), Sublingual, q5min, PRN Chest pain, 0 Refill(s) Start Date: 08/28/20 Status: Ordered Start: 07-14-2017 End: 11-29-2021 Nitroglycerin 0.4 mg tablet, sublingual Discontinued 0.4 mg SL Q5M as needed for Angina pain 25 3 October 12, 2018 6:22pm October 12, 2020 11:09am nystatin [id number] unt/ml / triamcinolone acetonide 1 mg/ml topical cream (18 sources) Polyene Antifungal, Corticosteroid Start: 01-17-2016 End: 10-23-2017 Nystatin-Triamcinolone 1 APPLIC cream Discontinued 1 NMA TOPICAL DAILY NEEDED as needed for Topical Irritations January 17, 2016 12:00am October 23, 2017 10:31am Start: 01-17-2016 End: 10-23-2017 Nystatin-Triamcinolone Disco ntinued 1 APPLIC TOPICAL DAILY NEEDED January 17, 2016 12:00am October 23, 2017 10:31am OLANZapine 2.5 mg oral tablet (1 source) Atypical Antipsychotic Start: 06-15-2025 Olanzapine 2.5 mg tablet Discontinued 2.5 mg PO June 15, 2025 12:00am anxiety oxiconazole 10 mg/ml topical cream (1 source) Azole Antifungal End: 04-17-2025 Oxiconazole Nitrate (OXISTAT) 1 % EX CREA 2 times daily. 04/17/2025 Discontinued oxyCODONE hydrochloride 5 mg oral tablet (18 sources) Opioid Agonist Start: 10-29-2021 End: 07-22-2023 take 1 tablet by mouth every six hours as needed for pain Oxycodone 5 mg tablet Discontinued 5 mg PO EVERY 6 HOURS as needed for Pain 0 October 29, 2021 1:00am July 22, 2023 9:05pm pravastatin sodium 40 mg oral tablet (20 sources) HMG-CoA Reductase Inhibitor Start: 02-04-2022 End: 09-27-2024 take 1 tablet by mouth once daily Pravastatin 40 mg tablet Discontinued 40 mg PO DAILY 90 3 February 09, 2024 1:55pm September 27, 2024 10:03am Start: 08-22-2021 End: 02-04-2022 take 1 tablet by mouth every other day Pravastatin 40 mg tablet Discontinued 40 mg PO every other day August 22, 2021 10:05am February 04, 2022 9:08am Start: 05-10-2018 End: 08-22-2021 Pravastatin 40 mg tablet Discontinued 0 .ROUTE .COMPLEX 90 4 September 10, 2020 2:37pm October 12, 2020 10:56am TAKE 1 TABLET EVERY DAY Start: 07-14-2017 End: 05-10-2018 take 1 tablet by mouth every other day Pravastatin 40 MG tablet Discontinued 40 mg PO .every other day 30 0 October 23, 2017 10:54am May 10, 2018 11:49am Start: 07-14-2017 End: 10-23-2017 take 1 tablet by mouth at bedtime Pravastatin 40 MG tablet Discontinued 40 mg PO AT BEDTIME 30 0 July 14, 2017 12:00am October 23, 2017 10:55am Comment on above: Take 40 mg by mouth once daily. predniSONE 20 mg oral tablet (8 sources) Start: 05-18-2024 End: 08-02-2024 take 2 tablets by mouth at breakfast Prednisone 20 mg Tablet Discontinued 40 mg PO WITH BREAKFAST 0 5 0 May 18, 2024 12:00am August 02, 2024 4:48pm Start: 04-01-2024 End: 05-09-2024 take 2 tablets by mouth once daily Prednisone 20 mg tablet Discontinued 40 mg PO DAILY 8 0 April 01, 2024 12:00am May 09, 2024 12:54pm spironolactone 50 mg oral tablet (20 sources) Aldosterone Antagonist Start: 08-22-2021 End: 10-04-2021 Spironolactone 50 mg tablet Discontinued 25 mg PO DAILY August 22, 2021 10:07am October 04, 2021 12:37pm Start: 08-22-2021 End: 10-04-2021 take 25 mg by mouth once daily Spironolactone Disconti nued 25 MG PO DAILY August 22, 2021 10:07am October 04, 2021 12:37pm Start: 08-01-2021 End: 08-22-2021 take 1 tablet by mouth once daily Spironolactone 50 mg tablet Discontinued 50 mg PO DAILY August 01, 2021 1:00am August 22, 2021 10:08am Start: 03-27-2021 End: 05-10-2021 Spironolactone 50 mg tablet Discontinued 25 mg PO DAILY March 27, 2021 11:01am May 10, 2021 10:03am Start: 03-27-2021 End: 05-10-2021 take 25 mg by mouth once daily Spironolactone Disconti nued 25 MG PO DAILY March 27, 2021 11:01am May 10, 2021 10:03am Start: 03-27-2021 End: 03-27-2021 take 1 tablet by mouth once daily Spironolactone 50 mg tablet Discontinued 50 mg PO DAILY March 27, 2021 12:00am March 27, 2021 11:02am sulfamethoxazole 800 mg / trimethoprim 160 mg oral tablet (5 sources) Dihydrofolate Reductase Inhibitor Antibacterial, Sulfonamide Antimicrobial Start: 10-20-2024 End: 11-04-2024 Sulfamethoxazole-Trimethopri m (Bactrim Ds) 800-160 mg tablet Discontinued 1 {tbl} PO TWICE A DAY October 20, 2024 1:00am November 05, 2024 12:20am Start: 01-02-2023 End: 02-01-2023 take 1 tablet by mouth twice daily Bactrim 400 mg-80 mg oral tablet Dose = 1 tab(s), Oral, BID, X 30 day(s), # 60 tab(s), 0 Refill(s), Pharmacy: [facility] [id number], 170, cm, 01/02/23 7:07:00 EDT, Height, 108 Start Date: 01/02/23 Stop Date: 02/01/23 Status: Ordered terbinafine 250 mg oral tablet (18 sources) Allylamine Antifungal Start: 07-12-2017 End: 10-23-2017 take 1 tablet by mouth once daily Terbinafine Hcl 250 MG tablet Discontinued 250 mg PO DAILY July 12, 2017 12:00am October 23, 2017 10:34am yeast ticagrelor 90 mg oral tablet (20 sources) Start: 10-07-2017 End: 10-23-2017 take 1 tablet by mouth twice daily Ticagrelor (Brilinta) 90 mg tablet Discontinued 90 mg PO TWICE A DAY October 07, 2017 1:00am October 23, 2017 10:28am Start: 07-14-2017 End: 10-01-2017 take 1 tablet by mouth twice daily Ticagrelor 90 MG tablet Discontinued 90 mg PO TWICE A DAY 60 0 July 14, 2017 12:00am October 01, 2017 2:55pm tiZANidine 2 mg oral capsule (18 sources) Central alpha-2 Adrenergic Agonist Start: 03-27-2021 End: 01-13-2024 take 1 capsule by mouth every eight hours as needed for muscle spasms Tizanidine 2 mg capsule Discontinued 2 mg PO Q8H as needed for Spasms March 27, 2021 12:00am January 13, 2024 9:22am traMADol hydrochloride 50 mg oral tablet (20 sources) Opioid Agonist Start: 10-20-2024 End: 05-03-2025 take 1 tablet by mouth three times daily as needed for pain Tramadol 50 mg tablet Discontinued 50 mg PO THREE TIMES A DAY as needed for pain October 20, 2024 1:00am May 03, 2025 9:02am Start: 01-17-2016 End: 10-23-2017 take 1 tablet by mouth every six hours as needed for pain Tramadol 50 MG tablet Discontinued 50 mg PO EVERY 6 HOURS NEEDED as needed for Mod-Severe Pain (4-10/10) January 17, 2016 12:00am October 23, 2017 10:33am ubidecarenone 100 mg / vitamin e 5 unt oral capsule (18 sources) Start: 01-17-2016 End: 05-07-2018 take 1 capsule by mouth once daily Coenzyme T19-Mwrbgxx E 1 EACH capsule Discontinued 0 NMA PO DAILY January 17, 2016 12:00am May 07, 2018 11:16am arthritis Start: 01-17-2016 End: 05-07-2018 Coenzyme Q15-Awuwspy E Disco ntinued 0 EACH PO DAILY January 17, 2016 12:00am May 07, 2018 11:16am valsartan 80 mg oral tablet (18 sources) Angiotensin 2 Receptor Betsey Start: 07-14-2017 End: 10-23-2017 take 1 tablet by mouth once daily Valsartan 80 MG tablet Discontinued 80 mg PO DAILY 30 0 July 14, 2017 12:00am October 23, 2017 10:33am vitamin b12 2.5 mg oral tablet (20 sources) Vitamin B12 Start: 08-22-2021 End: 03-14-2022 take 1 tablet by mouth once daily Cyanocobalamin (Vitamin B-12) 2,500 mcg tablet Discontinued 2500 ug PO DAILY August 22, 2021 1:00am March 14, 2022 9:59am Start: 12-08-2018 End: 08-22-2021 take 2500 ug by mouth once daily Vitamin B12 Discontinued 2500 MCG PO DAILY December 08, 2018 11:28pm August 22, 2021 10:07am Start: 12-08-2018 End: 08-22-2021 take 2500 ug by mouth once daily Vitamin B12 Discontinued 2500 ug PO DAILY December 08, 2018 12:00am August 22, 2021 10:07am supplement Start: 12-08-2018 End: 08-22-2021 take 2500 ug by mouth once daily Vitamin B12 Discontinued 2500 ug PO DAILY December 08, 2018 12:00am August 22, 2021 10:07am Start: 12-08-2018 End: 08-22-2021 take 2500 ug by mouth once daily Vitamin B12 Discontinued 2500 MCG PO DAILY December 07, 2018 11:00pm August 22, 2021 9:07am Start: 12-08-2018 End: 08-22-2021 take 2500 ug by mouth once daily Vitamin B12 Discontinued 2500 MCG PO DAILY December 08, 2018 12:00am August 22, 2021 10:07am Cyanocobalamin 2 ,500 mcg subl Dissolve under the tongue. Active Comment on above: Dissolve under the t ongue. Problems Active Problems Problem Classification Problem Date Documented Da te Episodic/Chronic Acute myocardial infarction (18 sources) Acute ST segment elevation myocardial infarction involving left anterior descending coronary artery; Translations: [ST elevation (STEMI) myocardial infarction involving left anterior descending coronary artery] 11-21-2021 Chronic Administrative/social admission (1 source) Worried well; Translations: [Person with feared health complaint in whom no diagnosis is made] 10-01-2024 Episodic Anxiety disorders (20 sources) Anxiety; Translations: [Anxiety disorder, unspecified] 11-21-2021 Chronic Asthma (20 sources) Asthma; Translations: [Unspecified asthma, uncomplicated] Onset: 09-16-2024 Chronic Cataract (20 sources) Senile combined form cataract of right eye; Translations: [Combined forms of age-related cataract, right eye] Onset: 06-21-2018 Resolved: 07-30-2018 06-21-2018 Chronic Chronic obstructive pulmonary disease and bronchiectasis (18 sources) Bronchitis; Translations: [Bronchitis, not specified as acute or chronic] 11-21-2021 Episodic Chronic ulcer of skin (20 sources) Ulcer of limb due to chronic venous insufficiency; Translations: [Non-pressure chronic ulcer of skin of other sites with unspecified severity] Onset: 09-16-2024 08-20-2023 Chronic Congestive heart failure; nonhypertensive (20 sources) Chronic diastolic heart failure; Translations: [Chronic diastolic (congestive) heart failure] Onset: 07-28-2024 Chronic Coronary atherosclerosis and other heart disease (20 sources) History of acute ST segment elevation myocardial infarction; Translations: [Old myocardial infarction] Onset: 07-11-2017 Chronic Comment on above: Anterior Diabetes mellitus with complications (5 sources) Hyperglycemia due to type 2 diabetes mellitus; Translations: [Type 2 diabetes mellitus in obese] 01-09-2023 Chronic Diabetes mellitus without complication (20 sources) Type 2 diabetes mellitus; Translations: [Type 2 diabetes mellitus without complications] Onset: 06-21-2018 08-28-2020 Chronic Disorders of lipid metabolism (20 sources) Hyperlipidemia; Translations: [Hyperlipidemia, unspecified] Onset: 09-16-2024 Chronic E Codes: Cut/pierceb (4 sources) Metal nail puncture wound of skin; Translations: [Nail entering through skin, initial encounter] 10-17-2024 Episodic E Codes: Fall (4 sources) Fall; Translations: [Unspecified fall, initial encounter] 05-06-2024 Episodic Essential hypertension (20 sources) Essential hypertension; Translations: [Essential (primary) hypertension] Onset: 06-21-2018 Chronic Fever of unknown origin (18 sources) Fever with chills; Translations: [Fever, unspecified] 11-21-2021 Episodic Fluid and electrolyte disorders (4 sources) Acute hyponatremia; Translations: [Hypo-osmolality and hyponatremia] 07-22-2023 Episodic Gastrointestinal hemorrhage (4 sources) Hematochezia; Translations: [Melena] 05-09-2024 Episodic Hyperplasia of prostate (20 sources) Benign prostatic hypertrophy with outflow obstruction; Translations: [Benign prostatic hyperplasia with lower urinary tract symptoms] Onset: 09-16-2024 01-16-2021 Chronic Inflammation; infection of eye (except that caused by tuberculosis or sexually transmitteddisease) (20 sources) Bilateral punctate keratitis of eyes; Translations: [Punctate keratitis, bilateral] Onset: 06-21-2018 06-21-2018 Chronic Inflammatory conditions of male genital organs (1 source) Balanitis; Translations: [Balanitis] 04-17-2025 Chronic Inflammatory conditions of male genital organs (15 sources) Chronic epididymitis; Translations: [Prostatitis] 10-17-2020 Episodic Malaise and fatigue (20 sources) Fatigue; Translations: [Other fatigue] 11-21-2021 Episodic Open wounds of extremities (5 sources) Injury of left leg; Translations: [Unspecified open wound, left lower leg, initial encounter] 11-07-2024 Episodic Other aftercare (4 sources) Long-term current use of diuretic; Translations: [Encounter for therapeutic drug level monitoring] 09-12-2024 Episodic Other circulatory disease (1 source) Other specified peripheral vascular diseases; Translations: [Other specified peripheral vascular diseases] Onset: 04-03-2025 Chronic Other circulatory disease (15 sources) Carotid bruit; Translations: [Other specified symptoms and signs involving the circulatory and respiratory systems] 09-18-2022 Episodic Other circulatory disease (2 sources) Other specified symptoms and signs involving the circulatory and respiratory systems; Translations: [Other symptoms involving cardiovascular system] 09-18-2022 Episodic Other circulatory disease (10 sources) H/O: heart failure; Translations: [Personal history of other diseases of the circulatory system] 07-22-2023 Episodic Other connective tissue disease (18 sources) Cramp; Translations: [Cramp and spasm] 11-21-2021 Episodic Other connective tissue disease (4 sources) Swelling of left lower limb; Translations: [Other specified soft tissue disorders] 08-04-2024 Episodic Other connective tissue disease (4 sources) Cramp in lower limb; Translations: [Cramp and spasm] 10-06-2024 Episodic Other diseases of bladder and urethra (1 source) Overactive bladder; Translations: [Overactive bladder] 07-14-2024 Chronic Other diseases of kidney and ureters (5 sources) Cyst of kidney 02-15-2021 Episodic Other diseases of veins and lymphatics (5 sources) Lymphedema; Translations: [Lymphedema, not elsewhere classified] 11-07-2024 Chronic Other diseases of veins and lymphatics (4 sources) Chronic peripheral venous hypertension; Translations: [Chronic venous hypertension (idiopathic) with ulcer and inflammation of unspecified lower extremity] 08-04-2024 Chronic Other diseases of veins and lymphatics (2 sources) Chronic venous hypertension (idiopathic) with ulcer and inflammation of left lower extremity; Translations: [Chronic venous hypertension (idiopathic) with ulcer and inflammation of left lower extremity] Onset: 09-16-2024 Chronic Other diseases of veins and lymphatics (1 source) Chronic venous hypertension (idiopathic) with inflammation of left lower extremity; Translations: [Chronic venous hypertension (idiopathic) with inflammation of left lower extremity] Onset: 11-18-2024 Chronic Other diseases of veins and lymphatics (2 sources) Varicocele 01-09-2023 Episodic Other diseases of veins and lymphatics (4 sources) Peripheral venous insufficiency; Translations: [Venous insufficiency (chronic) (peripheral)] 08-04-2024 Episodic Other fractures (4 sources) Fracture of thoracic spine; Translations: [Unspecified fracture of unspecified thoracic vertebra, initial encounter for closed fracture] 05-22-2024 Episodic Other fractures (4 sources) Closed fracture thoracic vertebra; Translations: [Unspecified fracture of T7-T8 vertebra, initial encounter for closed fracture] 05-06-2024 Episodic Other gastrointestinal disorders (20 sources) Irritable bowel syndrome; Translations: [Irritable bowel syndrome without diarrhea] 08-28-2020 Chronic Other gastrointestinal disorders (4 sources) Acute diarrhea; Translations: [Diarrhea, unspecified] 05-09-2024 Episodic Other hereditary and degenerative nervous system conditions (18 sources) Restless legs; Translations: [Restless legs syndrome] 11-21-2021 Chronic Other inflammatory condition of skin (1 source) Psoriasis, unspecified; Translations: [Psoriasis] Onset: 07-13-2025 Chronic Other inflammatory condition of skin (1 source) Itching ; Translations: [Pruritus, unspecified] 10-17-2023 Episodic Other inflammatory condition of skin (1 source) Erythema of skin; Translations: [Erythematous condition, unspecified] 10-01-2024 Episodic Other injuries and conditions due to external causes (1 source) Open wound; Translations: [Other injury of unspecified body region, initial encounter] 09-17-2024 Episodic Other injuries and conditions due to external causes (1 source) Wound ; Translations: [Injury, unspecified, subsequent encounter] 09-25-2024 Episodic Other injuries and conditions due to external causes (4 sources) Injury of head; Translations: [Unspecified injury of head, initial encounter] 05-06-2024 Episodic Other lower respiratory disease (20 sources) Dyspnea; Translations: [Shortness of breath] 09-03-2020 Episodic Other lower respiratory disease (5 sources) H/O: pneumonia 08-28-2020 Episodic Other lower respiratory disease (7 sources) Dyspnea on exertion; Translations: [Other forms of dyspnea] 12-07-2023 Episodic Other lower respiratory disease (3 sources) Other forms of dyspnea; Translations: [Other respiratory abnormalities] 12-07-2023 Episodic Other male genital disorders (5 sources) Impotence 01-16-2021 Chronic Other male genital disorders (4 sources) Erectile dysfunction co-occurrent and due to arterial insufficiency; Translations: [Erectile dysfunction due to arterial insufficiency] Onset: 04-17-2025 03-29-2024 Chronic Other male genital disorders (1 source) Irritation of penis; Translations: [Other specified disorders of penis] 12-31-2024 Chronic Other male genital disorders (1 source) Erectile dysfunction due to arterial insufficiency; Translations: [Erectile dysfunction due to arterial insufficiency] Onset: 04-17-2025 Chronic Other male genital disorders (1 source) Other specified disorders of penis; Translations: [Penile irritation] Onset: 12-31-2024 Chronic Other male genital disorders (5 sources) Adult hydrocele 09-03-2020 Episodic Other male genital disorders (5 sources) History of prostatitis 01-16-2021 Episodic Other male genital disorders (3 sources) Pain in scrotum 01-02-2023 Episodic Other male genital disorders (3 sources) Prostatic pain 01-02-2023 Episodic Other male genital disorders (1 source) Swelling of scrotum 01-02-2023 Episodic Other male genital disorders (2 sources) Swelling of testicle; Translations: [Other specified disorders of the male genital organs] 04-17-2025 Episodic Other male genital disorders (2 sources) Other specified disorders of the male genital organs; Translations: [Other specified disorders of the male genital organs] Onset: 04-23-2025 Episodic Other nutritional; endocrine; and metabolic disorders (20 sources) Obese class I; Translations: [Obesity, unspecified] Onset: 04-17-2025 04-03-2021 Chronic Comment on above: Continue to encourag e weight loss. Other nutritional; endocrine; and metabolic disorders (18 sources) Hypomagnesemia; Translations: [Hypomagnesemia] 11-21-2021 Chronic Other nutritional; endocrine; and metabolic disorders (15 sources) Obesity, unspecified; Translations: [Obesity, unspecified] Onset: 07-28-2024 Chronic Other nutritional; endocrine; and metabolic disorders (4 sources) Obesity; Translations: [Obesity, unspecified] 07-28-2024 Chronic Other nutritional; endocrine; and metabolic disorders (4 sources) Body mass index 30+ - obesity; Translations: [Obesity, unspecified] 08-04-2024 Chronic Swetha-; endo-; and myocarditis; cardiomyopathy (except that caused by tuberculosis or sexually transmitted disease) (5 sources) Ejection murmur 08-28-2020 Chronic Pneumonia (except that caused by tuberculosis or sexually transmitted disease) (18 sources) Pneumonia; Translations: [Pneumonia, unspecified organism] 11-21-2021 Episodic Residual codes; unclassified (18 sources) Obstructive sleep apnea syndrome; Translations: [Obstructive sleep apnea (adult) (pediatric)] 03-01-2020 Chronic Comment on above: AHI 45.8 Residual codes; unclassified (6 sources) Obstructive sleep apnea (adult) (pediatric); Translations: [Obstructive sleep apnea (adult)(pediatric)] Onset: 08-09-2024 Chronic Residual codes; unclassified (18 sources) Edema; Translations: [Edema, unspecified] 11-29-2021 Episodic Residual codes; unclassified (18 sources) History of surgical procedure on mouth; Translations: [Personal history of other medical treatment] 11-21-2021 Episodic Residual codes; unclassified (18 sources) H/O: neoplasm; Translations: [Other specified postprocedural states] 11-21-2021 Episodic Residual codes; unclassified (18 sources) Inappropriate sexual behavior; Translations: [Other problems related to lifestyle] 04-03-2021 Episodic Residual codes; unclassified (6 sources) Edema, unspecified; Translations: [Edema] Episodic Residual codes; unclassified (5 sources) FH: Thrombosis 09-03-2020 Episodic Residual codes; unclassified (5 sources) Peripheral edema 08-28-2020 Episodic Residual codes; unclassified (13 sources) Edema of lower extremity; Translations: [Localized edema] 04-28-2023 Episodic Residual codes; unclassified (2 sources) Family history of prostate cancer; Translations: [Family history of malignant neoplasm of prostate] 03-29-2024 Episodic Respiratory failure; insufficiency; arrest (adult) (4 sources) Chronic hypoxemic respiratory failure; Translations: [Chronic respiratory failure with hypoxia] 08-09-2024 Chronic Screening and history of mental health and substance abuse codes (5 sources) Ex-tobacco user 09-03-2020 Episodic Spondylosis; intervertebral disc disorders; other back problems (19 sources) Neck pain; Translations: [Cervicalgia] 09-18-2022 Episodic Sprains and strains (4 sources) Strain of neck muscle; Translations: [Strain of muscle, fascia and tendon at neck level, initial encounter] 05-06-2024 Episodic Syncope (18 sources) Vasovagal symptom; Translations: [Syncope and collapse] 04-30-2019 Episodic Unclassified (8 sources) Patient encounter status 07-09-2022 Viral infection (2 sources) Postherpetic neuralgia 11-16-2023 Episodic Past or Other Problems Problem Classification Problem Date Documented Da te Episodic/Chronic Blindness and vision defects (20 sources) Regular astigmatism of left eye; Translations: [Regular astigmatism, left eye] Onset: 06-21-2018 06-21-2018 Episodic Blindness and vision defects (20 sources) Regular astigmatism of right eye; Translations: [Regular astigmatism, right eye] Onset: 08-06-2018 08-06-2018 Episodic Contraceptive and procreative management (1 source) Vasectomy status; Translations: [Vasectomy status] Onset: 09-16-2024 Episodic Coronary atherosclerosis and other heart disease (20 sources) Presence of coronary angioplasty implant and graft; Translations: [Percutaneous transluminal coronary angioplasty status] Onset: 04-13-2019 Episodic Comment on above: ALEXANDRO Mid LAD using On yx Gove 2.25x12 mm 01/26/24 Genitourinary symptoms and ill-defined conditions (20 sources) Incomplete emptying of bladder; Translations: [Discharge from penis] Onset: 03-21-2025 02-14-2021 Episodic Mycoses (20 sources) Onychomycosis due to dermatophyte ; Translations: [Tinea cruris] Onset: 01-24-2025 10-17-2020 Episodic Nonspecific chest pain (9 sources) Tight chest; Translations: [Other chest pain] Onset: 11-19-2024 04-09-2024 Episodic Open wounds of extremities (1 source) Puncture wound with foreign body, right foot, initial encounter; Translations: [Puncture wound with foreign body, right foot, initial encounter] Onset: 10-28-2024 Episodic Other circulatory disease (4 sources) Personal history of other diseases of the circulatory system; Translations: [Personal history of other diseases of circulatory system] Onset: 09-16-2024 07-22-2023 Episodic Other connective tissue disease (1 source) Cramp and spasm; Translations: [Cramp and spasm] Onset: 10-28-2024 Episodic Other connective tissue disease (1 source) Other specified soft tissue disorders; Translations: [Other specified soft tissue disorders] Onset: 09-16-2024 Episodic Other diseases of kidney and ureters (3 sources) Other obstructive and reflux uropathy; Translations: [Other obstructive and reflux uropathy] Onset: 03-21-2025 Episodic Other diseases of veins and lymphatics (1 source) Venous insufficiency (chronic) (peripheral); Translations: [Venous insufficiency (chronic) (peripheral)] Onset: 09-16-2024 Episodic Other eye disorders (20 sources) H/O: L cataract extraction; Translations: [Cataract extraction status, left eye] Onset: 07-30-2018 08-06-2018 Episodic Other eye disorders (20 sources) H/O: R cataract extraction; Translations: [Cataract extraction status, right eye] Onset: 08-20-2018 08-20-2018 Episodic Other fractures (2 sources) Unspecified fracture of T7-T8 vertebra, initial encounter for closed fracture; Translations: [Unspecified fracture of T7-T8 vertebra, initial encounter for closed fracture] Onset: 09-16-2024 Episodic Other lower respiratory disease (1 source) Shortness of breath; Translations: [Shortness of breath] Onset: 10-06-2024 Episodic Other male genital disorders (20 sources) Disorder of prostate; Translations: [Disorder of prostate, unspecified] Onset: 10-14-2013 10-14-2013 Episodic Other screening for suspected conditions (not mental disorders or infectious disease) (20 sources) Thallium stress test abnormal; Translations: [Abnormal result of other cardiovascular function study] Onset: 06-14-2024 Episodic Residual codes; unclassified (14 sources) Localized edema; Translations: [Edema] Onset: 09-16-2024 03-24-2023 Episodic Residual codes; unclassified (4 sources) History of cardiac catheterization; Translations: [Other specified postprocedural states] Onset: 12-06-2021 08-04-2024 Episodic Residual codes; unclassified (1 source) Acquired absence of other specified parts of digestive tract; Translations: [Acquired absence of other specified parts of digestive tract] Onset: 09-16-2024 Episodic Residual codes; unclassified (1 source) Other specified postprocedural states; Translations: [Other specified postprocedural states] Onset: 09-16-2024 Episodic Respiratory failure; insufficiency; arrest (adult) (9 sources) Acute hypoxemic and hypercapnic respiratory failure; Translations: [Acute respiratory failure with hypoxia] Onset: 09-16-2024 05-22-2024 Episodic Skin and subcutaneous tissue infections (19 sources) Cellulitis of right lower limb; Translations: [Cellulitis of right lower limb] Onset: 11-12-2024 07-22-2023 Episodic Varicose veins of lower extremity (20 sources) Varicose veins of lower limb co-occurrent with edema; Translations: [Varicose veins of bilateral lower extremities with other complications] Onset: 09-16-2024 04-29-2023 Episodic Results Test Name Value Interpretation Reference Range Facility [facility] 07-13-2025 [facility] Office Visit ([facility]) -------- BLANCA GILL ([id number]) 1950 M Date Time Provider Department 07/13/25 1:15 PM JOSE INMAN During your visit today, we recorded the following information about you: Temperature Pulse Respiration Blood pressure 98.4 degrees 89/minute 20/minute 125/67 Weight 114.8 kg Jose Inman MD 07/13/2025 1:53 PM Signed [facility] Subjective Blanca Gill is a 74 year old male. Patient presents with: Rash: In groin, itchy, bleeding Rash: Location: groin and foreskin Duration: chronic condition; noticed it was flared up last night Pruritis: Yes Pain: No Change: waxing and waning Bleeding/ulceration/blis ter/pustule: no bleeding yet Contacts with rash: No Exposure: Has psoriasis, diabetes is out of control, wears a diaper for urinary incontinence. Recent illness: No. Treatment: ran out of prescribed cream (not sure what it is). Usually uses cream and powder. Rash Review of Systems Skin: Positive for rash. Objective BP 125/67 Pulse 89 Temp 36.9 ?C (98.4 ?F) Resp 20 Wt 114.8 kg (253 lb 1.4 oz) SpO2 (!) 87% BMI 41.48 kg/m? Physical Exam Exam conducted with a design sales consultant present (Jorge Herndon CNP present for exam). Constitutional: General: He is not in acute distress. Genitourinary: Penis: Uncircumcised. No erythema or swelling. Comments: Erythematous rash with defined border bilateral inguinal creases and scrotum with symmetric pattern on opposing surfaces. Neurological: Mental Status: He is alert. {ASSESSMENT/PLAN: 1. Psoriasis - ICD9: 696.1, ICD10: L40.9 (primary diagnosis) 2. Tinea cruris - ICD9: 110.3, ICD10: B35.6 Patient reports chest pain coordinator told him the rash was likely coexisting psoriasis and fungal infection. Refill - CLOTRIMAZOLE 1 % TOPICAL CREAM Discussed importance of maintaining sugar control and dry area to reduce incidence of jock itch. Jose Inman MD Differential Diagnoses - Tinea cruris - Psoriasis Procedures Allergies As of Date: 07/13/2025 Noted Allergy Reaction ASPERGILLUS FUMIGATUS ALLERGENIC *12/18/2010 16 - Unknown BENADRYL (DIPHENHYDRAMINE HCL) 12/18/2010 14 - Other: See Comments Comments: agitation BIAXIN (CLARITHROMYCIN) 12/18/2010 7 - Swelling 12 - Shortness of Breath BYETTA (EXENATIDE) 10/14/2013 7 - Swelling 8 - GI Upset 14 - Other: See Comments Comments: aching in joints LEVSIN (HYOSCYAMINE SULFATE) 12/18/2010 16 - Unknown LIDOCAINE 10/14/2013 10 - Anaphylaxis NAPROSYN (NAPROXEN) 12/18/2010 7 - Swelling 9 - Itching PENICILLINS 12/18/2010 10 - Anaphylaxis QUININE HCL 12/18/2010 16 - Unknown Date Reviewed: 07/13/2025 Reviewed by: Zahra Davalos LPN - Fully Assessed Reason for Visit: Rash [1087] Cmt: In groin, itchy, bleeding Primary Visit Diagnosis:Psoriasis [L40.9] Other Visit Diagnosis:Tinea cruris [B35.6] Order(s):clotrimazole (LOTRIMIN) 1 % creamApply to affected area two times a day.Disp: 60 gRfl: 0 Prescriptions as of 07/13/2025 - clotrimazole (LOTRIMIN) 1 % cream Apply to affected area two times a day. - tamsulosin (FLOMAX) 0.4 mg Take 1 capsule by mouth two times a day. Patient should start on June 19, 2025. - furosemide (LASIX) 40 mg tablet Take 80 mg by mouth once daily. 80 MG by mouth in morning and 40 MG by mouth in afternoon - OXYGEN, HOME THERAPY, Inhale 3 L/min as instructed as directed. - acetaminophen 325 mg cap Take by mouth as needed. - furosemide (LASIX) 40 mg/4 mL soln - 5-fluorouracil 2.5% acyclovir 5% diclofenac 1% salicylic acid 10% topical (CPD) Apply 0.25-0.5 g to affected area two times a day. - magnesium oxide (MAG-OX) 400 mg (241.3 mg magnesium) tablet Take 400 mg by mouth once daily. - nitroglycerin sublingual (NITROSTAT) 0.4 mg SL tablet Dissolve 0.4 mg under the tongue every 5 minutes as needed for chest pain. - Omeprazole-Sodium Bicarbonate 40-1,680 mg pack Take by mouth once daily. - ACCU-CHEK LINDSAY PLUS TEST STRP test strip - ACCU-CHEK GUIDE ME GLUCOSE MTR USE DIRECTED THREE TIMES DAILY - NOVOLIN N NPH U-100 INSULIN 100 unit/mL injection INJECT 40 UNITS SUBCUTANEOUSLY IN THE MORNING AND IN THE EVENING - isosorbide mononitrate ER (IMDUR) 30 mg 24 hr tablet Take 30 mg by mouth once daily. - ubidecarenone Q-10 (COENZYME Q-10) 10 mg cap Take by mouth twice daily. - carvedilol (COREG) 3.125 mg tablet Take 3.125 mg by mouth twice daily with meals. - Cyanocobalamin 2,500 mcg subl Dissolve under the tongue. - pravastatin (PRAVACHOL) 40 mg tablet Take 40 mg by mouth once daily. - aspirin, enteric coated (ASPIRIN, ENTERIC COATED) 81 mg EC tablet Take 81 mg by mouth once daily. - clopidogrel (PLAVIX) 75 mg tablet Take 75 mg by mouth once daily. - losartan 50 mg tablet Take 50 mg by mouth once daily. - metFORMIN 1,000 mg tablet Take 1,000 mg by mouth twice daily with meal (more content not included)... Normal [facility] MR/BMS.Anastacio 06-15-2025 MR/BMS.BVS [facility] [address] [place] [address] OFFICE VISIT Date of Service: 06/15/25 MR#: [id number] Acct: [id number] Name: BLANCA GILL Rep #: [id number] : 1950 Provider: RADHA Ibrahim Age/Sex: 74/M [place] [facility] [place] Status: Signed Intake Vital Signs 11/07/24 04:02 05/03/25 08:56 06/15/25 09:15 Height 5 ft 8 in 5 ft 8 in Weight: 249 lb BP 122/63 H Blood Pressure Location Lt brachial Position Sitting Respiration 16 Pulse 81 Pulse Source Monitor Temp 98.2 F Temp Source Temporal Pulse Oximetry (%) 92 Oxygen Delivery Method room air Intake Visit Reasons: Discuss Mapping Results Is patient in pain?: No Allergies Penicillins Allergy (Severe, Verified 06/15/25 09:17) Anaphylaxis quinine sulfate (From Quine) Allergy (Severe, Verified 06/15/25 09:17) passed out benzocaine (From Cetacaine) Allergy (Verified 06/15/25 09:17) Swelling butamben (From Cetacaine) Allergy (Verified 06/15/25 09:17) Swelling ciprofloxacin HCl (From Cipro) Allergy (Verified 06/15/25 09:17) Hives clarithromycin (From Biaxin) Allergy (Verified 06/15/25 09:17) Swelling exenatide (From Byetta) Allergy (Verified 06/15/25 09:17) Rash folic acid (From Proferrin-Forte) Allergy (Verified 06/15/25 09:17) Rash hyoscyamine sulfate (From Levsin) Allergy (Verified 06/15/25 09:17) Rash iron heme polypeptide (From Proferrin-Forte) Allergy (Verified 06/15/25 09:17) tongue swelling naproxen (From Naprosyn) Allergy (Verified 06/15/25 09:17) Rash tetracaine (From Cetacaine) Allergy (Verified 06/15/25 09:17) throat swelled shut venlafaxine HCl (From Effexor) Allergy (Verified 06/15/25 09:17) tongue swelling ezetimibe (From Zetia) Adverse Reaction (Severe, Verified 06/15/25 09:17) Myalgias, diarrhea mold Adverse Reaction (Severe, Verified 06/15/25 09:17) PT UNSURE OF REACTION niacin (From Niaspan Extended-Release) Adverse Reaction (Severe, Verified 06/15/25 09:17) PT UNSURE OF REACTION procainamide Adverse Reaction (Severe, Verified 06/15/25 09:17) Anaphylactic/Resp. Distress atorvastatin calcium (From Lipitor) Adverse Reaction (Intermediate, Verified 06/15/25 09:17) Mylagias levofloxacin Adverse Reaction (Intermediate, Verified 06/15/25 09:17) Nausea and vomiting rosuvastatin calcium (From Crestor) Adverse Reaction (Intermediate, Verified 06/15/25 09:17) Myalgias diphenhydramine HCl (From Benadryl) Adverse Reaction (Verified 06/15/25 09:17) Restlessness Medications ???Medication ???Instructions ???Recorded ???Confirmed ???Type metformin 1,000 mg tablet 1,000 mg PO BIDCM diabetes 6 06/15/25 History montelukast 10 mg tablet 10 mg PO QHS allergies 01/17/16 History acetaminophen 325 mg tablet 325 - 650 mg (1 - 2 x 325 mg) PO 1 06/15/25 Rx Q6H PRN PRN Pain aspirin 81 mg tablet,delayed 81 mg PO DAILY@0800 #30 tabs 07/1406/15/25 Rx release pramipexole 1 mg tablet 2 mg PO QHS headache 05/07/1811/08 History coenzyme Q10 100 mg capsule 100 mg PO DAILY supplement 9 06/15/25 History magnesium oxide 400 mg PO DAILY supplement 9 06/15/25 History fluticasone propionate 50 1 spray intranasal DAILY PRN nasal 04/05/20 06/15/25 History mcg/actuation nasal spray spray,suspension nitroglycerin 0.4 mg sublingual 0.4 mg sublingual Q5M PRN Angina 0 11/29/21 06/15/25 Rx tablet pain #25 tabs vitamin B complex 1 tab PO DAILY 03/14/22 06/15/25 H istory buspirone 10 mg tablet 20 mg PO BID Anxiety 08/20/2311/08 History albuterol sulfate 90 mcg/actuation 2 puff inhalation Q4H PRN 06/15/25 Rx aerosol inhaler (Ventolin HFA) shortness of breath or wheezing #18 grams clotrimazole-betamethaso ne 1 1 applic topical BID 4 weeks #45 0 11/17/23 06/15/25 Rx %-0.05 % topical cream grams cholecalciferol (vitamin D3) 50 2,000 unit PO DAILY supplement 06/15/25 History mcg (2,000 unit) capsule omeprazole 40 mg capsule,delayed 40 mg PO BID 12/07/23 06/15/25 His tory release alprazolam 0.25 mg tablet 0.25 mg PO DAILY PRN anxiety 2 01/0506/15/25 Rx days #7 tabs insulin NPH isoph U-100 human 100 See Rx Instructions .Route 06/15/25 Rx unit/mL subcutaneous suspension .COMPLEX diabetes 3 days #0 mL insulin lispro 100 unit/mL See Protocol subcut ACHS #0 mL 01/0506/15/25 Rx subcutaneous pen (Humalog KwikPen (U-100) Insulin) tamsulosin 0.4 mg capsule 0.4 mg PO DAILY@1700 #0 caps 05/1806/15/25 Rx evolocumab 140 mg/mL subcutaneous 140 mg subcut Q2W #6 mL 08/23/24 06/15/25 Rx pen injector (Valerie Travis) metolazone 2.5 mg tablet 2.5 mg PO .COMPLEX #90 tabs 06/15/25 Rx pravastatin 40 mg tablet 40 mg PO DAILY #90 TABLETS (more content not included)... Normal [facility] PSA, SCREENINGon 05-29-2025 Prostate specific Ag [Mass/Vol] 1.620 ng/mL [facility] Comment on above: OBTAIN BASELINE BETWEEN AGES OF 45-75 LESS THAN 1.0 ng/mL REPEAT TESTING AT 2-4 YEARS 1.0-3.0 ng/mL REPEAT TESTING AT 1-2 YEARS GREATER THAN 3.0 ng/mL REPEAT PSA,CHULA, AND WORKUP FOR BENIGN DISEASE AGE GREATER THAN 75, PSA LESS THAN 3 ng/mL REPEAT TESTING IN 1-4 YEARS Patient results determined by testing on the Nevros 7600 analyzer by immunometric method. This assay may not be comparable using a different catalogue maker or method. [facility] PSA,TOTALon 05-29-2025 PSA,TOTAL 1.620 NG/ML Normal 0.0-4.0 [facility] Comment on above: Result Comment: OBTAIN BASELINE BETWEEN AGES OF 45-75 LESS THAN 1.0 ng/mL REPEAT TESTING AT 2-4 YEARS 1.0-3.0 ng/mL REPEAT TESTING AT 1-2 YEARS GREATER THAN 3.0 ng/mL REPEAT PSA,CHULA, AND WORKUP FOR BENIGN DISEASE AGE GREATER THAN 75, PSA LESS THAN 3 ng/mL REPEAT TESTING IN 1-4 YEARS Patient results determined by testing on the Nevros 7600 analyzer by immunometric method. This assay may not be comparable using a different catalogue maker or method. Performed By: #### P SA #### [place] [address] CYSTOSCOPYon 05-19-2025 Jeremías Fajardo MD 05/19/2025 12:49 PM CYSTOSCOPY Date/Time: 05/19/2025 9:00 AM Performed by: Jeremías Fajardo MD Authorized by: Jeremías Fajardo MD The attending physician was present for the entire procedure. Pre-Procedure: Indications: urinary frequency, urinary urgency and enlarged prostate Detailed information of all possible complications and side effects were discussed with the patient, these include but not only; UTI, sepsis, hematuria, incontinence, urethral injury and cardiovascular complications. Informed consent was obtained. Does this procedure require a Burgin Protocol? Yes. Burgin Protocol is required. Urine was collected for testing. Procedure: Procedure performed: cystoscopy The patient was placed supine with all pressure points well padded. Patient was prepped and draped in the usual sterile fashion with Betadine. lidocaine 2% topical gel was inserted into urethra for local anesthesia. The flexible cystoscope was lubricated and placed into the urethral tract under direct visualization. A 360 survey of the bladder was performed. The cystoscope was reflected and the bladder neck and the ureteral orifices were inspected. The findings are detailed below. The cystoscope was removed following any additional procedures documented below. Findings: Intravesical protrusion of median lobe: Small median lobe. The lateral lobes were obstructive in appearance (Severely obstructing). No tumors observed. No bladder fistula present. No foreign bodies observed. No stones found. Trabeculated bladder: Moderate to severe. Both ureteral orifices were normal in size, shape and position The urethra was inspected. Post Procedure: Patient tolerated procedure with no immediate complications Post-procedure antibiotics were given (see MAR for details) Provided education regarding water intake of at least 2 liters per day. Procedure Comments: KAT: 1. Limited visualization of the right kidney with a 3.8 cm possible exophytic cyst, poorly visualized due to depth. CT would be recommended to evaluate this area further. 2. Left kidney possible 9 mm cyst. Suspected prominent dromedary hump. This is also poorly visualized due to depth. 3. Prostatomegaly. 4. Echogenic debris within the bladder. This could reflect blood or protein or infection depending on the clinical presentation. [facility] No Panel Informationon 05-19 [facility] Radiology Study observation (narrative) [facility] POCT URINE DIPSTICK AUTOMATE Don 05-19-2025 Amorphous sediment LM Ql (Urine sed) [facility] Appearance (U) clear [facility] Bacteria LM Ql (Urine sed) [facility] Bilirubin Ql (U) Negative [facility] Casts LM.LPF (Urine sed) [#/Area] [facility] Color (U) yellow [facility] Crystals LM Nom (Urine sed) [facility] Epithelial cells.squamous LM.HPF (Urine sed) [#/Area] [facility] Flow cytometry specialist review Boom (Unsp spec) [Interp] [facility] Glucose Auto test strip (U) [Mass/Vol] Negative mg/dL [facility] Ketones [Mass/Vol] Negative mg/dL [facility] Leukocyte esterase Qn (U) [facility] Leukocyte esterase Test strip Ql (U) Negative [facility] Microscopic observation Gram stain Nom (Bronch spec) [facility] Nitrite Ql (U) Negative [facility] pH (U) 5.5 [pH] 5 - 7 [facility] Protein Ql (U) Negative mg/dL [facility] RBC LM.HPF (Urine sed) [#/Area] [facility] RBC Ql (U) Negative [facility] Specific gravity (U) [Rel density] 1.015 1.001 - 1.035 [facility] Transitional cells LM Ql (Urine sed) [facility] Urobilinogen Qn (U) 0.2 [facility] WBC LM.HPF (Urine sed) [#/Area] [facility] TRANSRECTAL ULTRASOUNDon Jeremías Fajardo MD 05/19/2025 12:49 PM TRANSRECTAL ULTRASOUND Date/Time: 05/19/2025 9:00 AM Performed by: Jeremías Fajardo MD Authorized by: Jeremías Fajardo MD The attending physician was present for the entire procedure. Pre-Procedure Details: After discussing his options the patient decided to proceed with prostate ultrasound only. Possible complications, risks and benefits were discussed with the patient and consent was obtained. Procedure Details: The patient was placed in the left lateral position with lower extremities flexed and the area was prepped. 2% lidocaine jelly was injected per rectum. The prostate and seminal vesicles was/were inspected systematically using cross and sagittal views with the ultrasound. Findings are detailed above. The prostate measured 5.01 cm x 4.88 cm x 3.93 cm for a total prostate volume of 50.31 cc. The rectal ultrasound probe was removed. The procedure was tolerated well by the patient. Complications: none. Post-Procedure Details: EBL: none - The patient will return to clinic in approximately 2 weeks. Procedure Comments: Recommend UroLift vs Aquablation, briefly explained. Literature provided. [facility] Cardiology Visit Reporton Cardiology Visit Report [facility] [address] [place] [address] OFFICE VISIT Date of Service: 05/03/25 MR#: [id number] Acct: [id number] Name: BLANCA GILL Rep #: [id number] : 1950 Provider: RADHA Herbert Age/Sex: 74/M [place] [facility] [place] Status: Signed HPI HPI History of Present Illness Details: Blanca Iyer is a 74-year-old gentleman that presents here today for a cardiovascular follow-up. We have been adjusting his medications. He does have coronary artery disease with stenting to his LAD in 2018. He had a heart catheterization in January 2024 and had stenting to his LAD. Echocardiogram done in April 2024 demonstrates an ejection fraction of 55% with stage I diastolic dysfunction. He does have a history of hypertension, hyperlipidemia and diabetes. Pt is seeing vascular for his chronic swelling. He will be establishing with Endocrine for his DM. His most recent A1c is 11. 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: No Accompanied by: Grandson Is patient in pain?: No Allergies Penicillins Allergy (Severe, Verified 05/03/25 09:04) Anaphylaxis quinine sulfate (From Quine) Allergy (Severe, Verified 05/03/25 09:04) passed out benzocaine (From Cetacaine) Allergy (Verified 05/03/25 09:04) Swelling butamben (From Cetacaine) Allergy (Verified 05/03/25 09:04) Swelling ciprofloxacin HCl (From Cipro) Allergy (Verified 05/03/25 09:04) Hives clarithromycin (From Biaxin) Allergy (Verified 05/03/25 09:04) Swelling exenatide (From Byetta) Allergy (Verified 05/03/25 09:04) Rash folic acid (From Proferrin-Forte) Allergy (Verified 05/03/25 09:04) Rash hyoscyamine sulfate (From Levsin) Allergy (Verified 05/03/25 09:04) Rash iron heme polypeptide (From Proferrin-Forte) Allergy (Verified 05/03/25 09:04) tongue swelling naproxen (From Naprosyn) Allergy (Verified 05/03/25 09:04) Rash tetracaine (From Cetacaine) Allergy (Verified 05/03/25 09:04) throat swelled shut venlafaxine HCl (From Effexor) Allergy (Verified 05/03/25 09:04) tongue swelling ezetimibe (From Zetia) Adverse Reaction (Severe, Verified 05/03/25 09:04) Myalgias, diarrhea mold Adverse Reaction (Severe, Verified 05/03/25 09:04) PT UNSURE OF REACTION niacin (From Niaspan Extended-Release) Adverse Reaction (Severe, Verified 05/03/25 09:04) PT UNSURE OF REACTION procainamide Adverse Reaction (Severe, Verified 05/03/25 09:04) Anaphylactic/Resp. Distress atorvastatin calcium (From Lipitor) Adverse Reaction (Intermediate, Verified 05/03/25 09:04) Mylagias levofloxacin Adverse Reaction (Intermediate, Verified 05/03/25 09:04) Nausea and vomiting rosuvastatin calcium (From Crestor) Adverse Reaction (Intermediate, Verified 05/03/25 09:04) Myalgias diphenhydramine HCl (From Benadryl) Adverse Reaction (Verified 05/03/25 09:04) Restlessness Medications ???Medication ???Instructions ???Recorded ???Confirmed ???Type metformin 1,000 mg tablet 1,000 mg PO BIDCM diabetes 6 05/03/25 History montelukast 10 mg tablet 10 mg PO QHS allergies 01/17/16 History acetaminophen 325 mg tablet 325 - 650 mg (1 - 2 x 325 mg) PO 1 05/03/25 Rx Q6H PRN PRN Pain aspirin 81 mg tablet,delayed 81 mg PO DAILY@0800 #30 tabs 07/1405/03/25 Rx release pramipexole 1 mg tablet 2 mg PO QHS headache 05/07/1804/15 History coenzyme Q10 100 mg capsule 100 mg PO DAILY supplement 9 05/03/25 History magnesium oxide 400 mg PO DAILY supplement 9 05/03/25 History fluticasone propionate 50 1 spray intranasal DAILY PRN nasal 04/05/20 05/03/25 History mcg/actuation nasal spray spray,suspension nitroglycerin 0.4 mg sublingual 0.4 mg sublingual Q5M PRN Angina 0 11/29/21 05/03/25 Rx tablet pain #25 tabs vitamin B complex 1 tab PO DAILY 03/14/22 05/03/25 H istory buspirone 10 mg tablet 20 mg PO BID Anxiety 08/20/2304/15 History albuterol sulfate 90 mcg/actuation 2 puff inhalation Q4H PRN 05/03/25 Rx aerosol inhaler (Ventolin HFA) shortness of breath or wheezing #18 grams clotrimazole-betamethaso ne 1 1 applic topical BID 4 weeks #45 0 11/17/23 05/03/25 Rx %-0.05 % topical cream grams cholecalciferol (vitamin D3) 50 2,000 unit PO DAILY supplement 05/03/25 History mcg (2,000 unit) capsule omeprazole 40 mg capsule,delayed 40 mg PO BID 12/07/23 05/03/25 His tory release alprazolam 0.25 mg tablet 0.25 mg PO DAILY PRN anxiety 2 01/0505/03/25 Rx days #7 tabs insulin NPH isoph U-100 human 100 See Rx Ins (more content not included)... Normal [facility] US RENAL RETROPERITONEALon 0 04-24-2025 US RENAL RETROPERITONEAL EXAM: US RENAL RETROPERITONEAL. HISTORY: Incomplete blader emptying. COMPARISON: None TECHNIQUE: Sonographic evaluation of the kidneys and bladder is performed. The study is limited due to depth. FINDINGS: The bladder demonstrates layering echogenic material. The prostate is enlarged. Bilateral ureteric jets are noted. The right kidney measures 11.1 x 6.3 x 6.4 cm with a cortical thickness of 11 mm. An exophytic cyst is suspected inferiorly however is poorly visualized, obscured due to depth. There is no hydronephrosis. The left kidney measures 11.8 x 5.5 x 5.6 cm with a cortical thickness of 9 mm. A 9 mm cyst is suspected. A prominent dromedary hump is suspected. There is no hydronephrosis. IMPRESSION: 1. Limited visualization of the right kidney with a 3.8 cm possible exophytic cyst, poorly visualized due to depth. CT would be recommended to evaluate this area further. 2. Left kidney possible 9 mm cyst. Suspected prominent dromedary hump. This is also poorly visualized due to depth. 3. Prostatomegaly. 4. Echogenic debris within the bladder. This could reflect blood or protein or infection depending on the clinical presentation. Normal [facility] US SCROTUM AND TESTICLES WIT H DOPPLERon 04-24-2025 US SCROTUM AND TESTICLES WITH DOPPLER EXAM: US SCROTUM AND TESTICLES WITH DOPPLER HISTORY: testicular swelling COMPARISON: None. TECHNIQUE: Sonographic evaluation of the scrotal contents is performed. FINDINGS: The right testicle measures 3.3 x 2.1 x 3.0 cm. Arterial and venous flow is noted with an arterial resistive index of 0.48. There are mildly prominent venous structures consistent with a small varicocele, measuring up to 2.5 mm. The right epididymis demonstrates slight increased vascularity on color Doppler. The left testicle is homogeneous measuring 3.9 x 2.3 x 2.5 cm. Arterial and venous flow is noted with arterial resistive index of 0.72. There is a moderate hydrocele. The left epididymis demonstrates increased vascularity. Prominent vessels lateral to the left testicle measure maximally 2.0 mm. IMPRESSION: 1. Negative for torsion. 2. Slight increase in vascularity to the epididymides bilaterally. This is likely anatomic variation, however underlying epididymitis cannot be entirely excluded. Correlate with clinical history. 3. Moderate left hydrocele. 4. Small bilateral varicoceles. Normal [facility] POCT URINALYSIS DIPSTICK AUT OMATED W/O SCOPon 04-17-2025 Amorphous sediment LM Ql (Urine sed) [facility] Appearance (U) clear [facility] Bacteria LM Ql (Urine sed) [facility] Bilirubin Ql (U) Negative [facility] Casts LM.LPF (Urine sed) [#/Area] [facility] Color (U) yellow [facility] Crystals LM Nom (Urine sed) [facility] Epithelial cells.squamous LM.HPF (Urine sed) [#/Area] [facility] Flow cytometry specialist review Boom (Unsp spec) [Interp] [facility] Glucose Auto test strip (U) [Mass/Vol] 100 mg/dL [facility] Ketones [Mass/Vol] Negative mg/dL [facility] Leukocyte esterase Qn (U) [facility] Leukocyte esterase Test strip Ql (U) Negative [facility] Nitrite Ql (U) Negative [facility] pH (U) 6.5 [pH] 5 - 7 [facility] Protein Ql (U) Negative mg/dL [facility] RBC LM.HPF (Urine sed) [#/Area] [facility] RBC Ql (U) Negative [facility] Specific gravity (U) [Rel density] 1.01 1.001 - 1.035 [facility] Transitional cells LM Ql (Urine sed) [facility] Urobilinogen Qn (U) 0.2 [facility] WBC LM.HPF (Urine sed) [#/Area] [facility] Arterial study reportOrdered By: Lamin Ring on 03-28-2025 Noninvasive arteriosclerosis study report [facility] [address] [place] [id number] Lower Ext Art Exam w/o Exercis 03/28/25 1234 MR#: [id number] Acct: [id number] Name: BLANCA GILL Rep #:[id number] : 1950 74 From: Lamin Ring MD Attending Dr: Dr. Ricardo Jones, DPChet Status: REG CLI Ordering Dr: Ricardo Jones DPM Date: 03/28/25 Location: CVS Sex: M C Admitted: Reason For Study Reason For Study: LE Wound Procedure A bilateral lower extremity continuous wave Doppler with analog waveform analysis,segmental pressures,and ankle brachial indexes without exercise. Left Segmental Pressures Left brachial= 119mmHg. Left posterior tibial artery = 144mmHg. Left dorsalis pedis artery = 141mmHg. Left digit = 117 mmHg. The left posterior tibial artery waveforms are triphasic. The left dorsalis pedis waveforms are triphasic. Right Segmental Pressures Right brachial= 128mmHg. Right calf = 131mmHg. Right posterior tibial artery = 118mmHg. Right dorsalis pedis artery = 126mmHg. Right digit = 93 mmHg. The right posterior tibial artery waveforms are triphasic. The right dorsalis pedis waveforms are triphasic. Indices The right ankle brachial index by the posterior tibial artery is 0.92. The rightankle brachial index by the dorsalis pedis is 0.98. The right digital-brachial index is 0.73. The left ankle brachialindex by the posterior tibial artery is 1.13. The left ankle brachial index by the dorsalis pedis is 1.10. The left digital-brachial index is 0.91. VL/Lower Ext Art Exam w/o Exercis Interpretation Summary Triphasic Doppler waveforms are noted at ankle level bilaterally. Pulse-volume recordings appear satisfactory at all levels bilaterally. The resting right ankle-brachial index is minimally diminished. The resting left ankle-brachial index is normal. Digital-brachial indices are normal bilaterally. There is no evidence of significant arterial occlusive disease in the lower extremities bilaterally. Ordering Physician: Ricardo Jones Referring Physician: Maya Pradhan Performed By: Zaid Krueger, T 03/28/252101 Date _ Lamin Ring MD CC: DPM Dr. Ricardo Jones; Dr. Maya Pradhan DO ~ Date Dictated: 03/28/25 1234 Date Transcribed: 03/28/252101 Distribution Dispatcher: Signed [facility] Work Phone: Lower Ext Art Exam w/o Exerc sarah 03-28-2025 Lower Ext Art Exam w/o Exercis [facility] [address] [place] [address] Lower Ext Art Exam w/o Exercis 03/28/25 1234 MR#: [id number] Acct: [id number] Name: BLANCA GILL Rep #: [id number] : 1950 74 From: Lamin Ring MD Attending Dr: Dr. Ricardo Jones DPM Status: R EG CLI Ordering Dr: Ricardo Jones DPM Date: 03/28/25 Location: [facility] Sex: M C Admitted: Reason For Study Reason For Study: LE Wound Procedure A bilateral lower extremity continuous wave Doppler with analog waveform analysis,segmental pressures,and ankle brachial indexes without exercise. Left Segmental Pressures Left brachial= 119mmHg. Left posterior tibial artery = 144mmHg. Left dorsalis pedis artery = 141mmHg. Left digit = 117 mmHg. The left posterior tibial artery waveforms are triphasic. The left dorsalis pedis waveforms are triphasic. Right Segmental Pressures Right brachial= 128mmHg. Right calf = 131mmHg. Right posterior tibial artery = 118mmHg. Right dorsalis pedis artery = 126mmHg. Right digit = 93 mmHg. The right posterior tibial artery waveforms are triphasic. The right dorsalis pedis waveforms are triphasic. Indices The right ankle brachial index by the posterior tibial artery is 0.92. The right ankle brachial index by the dorsalis pedis is 0.98. The right digital-brachial index is 0.73. The left ankle brachial index by the posterior tibial artery is 1.13. The left ankle brachial index by the dorsalis pedis is 1.10. The left digital-brachial index is 0.91. VL/Lower Ext Art Exam w/o Exercis Interpretation Summary Triphasic Doppler waveforms are noted at ankle level bilaterally. Pulse-volume recordings appear satisfactory at all levels bilaterally. The resting right ankle-brachial index is minimally diminished. The resting left ankle-brachial index is normal. Digital-brachial indices are normal bilaterally. There is no evidence of significant arterial occlusive disease in the lower extremities bilaterally. Ordering Physician: Ricardo Jones Referring Physician: Maya Pradhan Performed By: Zaid Krueger, RVT 03/28/252101 Date Lamin Ring MD CC: DPM Dr. Ricardo Jones; Dr. Maya Pradhan DO Date Dictated: 03/28/25 1234 Date Transcribed: 03/28/252101 Distribution Dispatcher: Signed Normal [facility] Venous Duplex US - Bonifacio Extre [facility] 03-28-2025 Venous Duplex US - Bonifacio Extrem [facility] [address] [place] [address] Venous Duplex US - Bonifacio Extrem 03/28/25 1241 MR#: [id number] Acct: [id number] Name: BLANCA GILL Rep #: [id number] : 1950 74 From: Lamin Ring MD Attending Dr: Dr. Ricardo Jones, DPM Status: R EG CLI Ordering Dr: Ricardo Jones DPM Date: 03/28/25 Location: CVS Sex: M C Admitted: Reason For Study Reason For Study: BLE Swelling RIGHT LEFT CFV is compressible, spontaneous, phasic, competent CFV is compressible, spontaneous, phasic, competent, and demonstrates normal augmentation. and demonstrates normal augmentation. FV is compressible, spontaneous, phasic, competent FV is compressible, spontaneous, phasic, competent and demonstrates normal augmentation. and demonstrates normal augmentation. POP V is compressible, spontaneous, phasic, competent POP V is compressible, spontaneous, phasic, competent and demonstrates normal augmentation. and demonstrates normal augmentation. T/P Trunk is compressible. T/P Trunk is compressible. PTV is compressible. PTV is compressible. RT PerV is compressible. LT PerV is compressible. SFJ is competent and measures 0.40 cm. SFJ is competent and measures 0.59 cm. GSV proximal thigh measures 0.39 X 0.36 cm. GSV proximal thigh measures 0.28 x 0.28 cm. GSV at knee measures 0.26 x 0.27 cm. GSV at knee measures 0.27 x 0.25 cm. GSV above knee is INCOMPETENT for greater than 0.5 GSV above knee is competent. seconds. GSV below knee is INCOMPETENT for greater than 0.5 GSV below knee is competent. seconds. SSV mid calf is competent and measures 0.25 x 0.28 SSV mid calf is INCOMPETENT for greater than 0.5 cm. seconds and measures 0.38 x 0.38 cm. Procedure ASV mid calf is INCOMPETENT for greater than 0.5 Exam performed in department. seconds and measures 0.26 x 0.28 cm. This is a venous duplex using B-mode, color flow and spectral Doppler. The exam was diagnostic. Patient was scanned in reverse Trendelenburg position during reflux assessment. VL/Venous Duplex US - Bonifacio Extrem Interpretation Summary Deep veins of the lower extremities are bilaterally patent and compressible segmentally. There is no evidence of deep vein thrombosis on either side. Valvular competence appears intact within the proximal deep venous systems bilaterally. The great saphenous veins appear bilaterally patent and compressible segmentally. Sapheno-femoral junctions are bilaterally competent . The right great saphenous vein appears incompetent above the knee. The right great saphenous vein appears competent below the knee. The left great saphenous vein appears competent above the knee. The left great saphenous vein appears incompetent below the knee. The right small saphenous vein is patent and competent. The left small saphenous vein is patent and incompetent. The accessory saphenous vein in the left mid-calf is incompetent. Ordering Physician: Ricardo Jones Referring Physician: Maya Pradhan Performed By: Zaid Krueger RVT 03/28/252109 Date Lamin Ring MD CC: DPM Dr. Ricardo Jones; Dr. Maya Pradhan, Date Dictated: 03/28/25 1241 Date Transcribed: 03/28/252109 Distribution Dispatcher: Signed Normal [facility] Venous duplex ultrasound rep ortOrdered By: Lamin Ring on 03-28-2025 US Vein [facility] [address] [place] [address] Venous Duplex US - Bonifacio Extrem 03/28/251240 MR#: [id number] Acct: [id number] Name: BLANCA GILL Rep #:[id number] : 1950 74 From: Lamin Ring MD Attending Dr: Dr. Ricardo Jones, DAMON Status: REG CLI Ordering Dr: Ricardo Jones DPChet Date: 03/28/25 Location: CVS Sex: M C Admitted: Reason For Study Reason For Study: BLE Swelling RIGHT LEFT CFV is compressible, spontaneous, phasic, competent CFV is compressible, spontaneous, phasic, competent, and demonstrates normal augmentation. and demonstrates normal augmentation. FV is compressible, spontaneous, phasic, competent FV is compressible, spontaneous, phasic, competent and demonstrates normal augmentation. and demonstrates normal augmentation. POP V is compressible, spontaneous, phasic, competent POP V is compressible, spontaneous, phasic, competent and demonstrates normal augmentation. and demonstrates normal augmentation. T/P Trunk is compressible. T/P Trunk is compressible. PTV is compressible. PTV is compressible. RT PerV is compressible. LT PerV is compressible. SFJ is competent and measures 0.40 cm. SFJ is competent and measures 0.59 cm. GSV proximal thigh measures 0.39 X 0.36 cm. GSV proximal thigh measures 0.28 x 0.28 cm. GSV at knee measures 0.26 x 0.27 cm. GSV at knee measures 0.27 x 0.25 cm. GSV above knee is INCOMPETENT for greater than 0.5 GSV above kneeis competent. seconds. GSV below kneeis INCOMPETENT for greater than 0.5 GSV below knee is competent. seconds. SSV mid calf is competent and measures 0.25 x 0.28 SSV mid calf is INCOMPETENT for greater than 0.5 cm. seconds and measures 0.38 x 0.38 cm. Procedure ASV mid calf is INCOMPETENT for greater than 0.5 Exam performed in department. seconds and measures 0.26 x 0.28 cm. This is a venous duplex using B-mode, color flow and spectral Doppler. The exam was diagnostic. Patient was scanned in reverse Trendelenburg position during reflux assessment. VL/Venous Duplex US - Bonifacio Extrem Interpretation Summary Deep veins of the lower extremities are bilaterally patent and compressible segmentally. There is no evidence of deep vein thrombosis on either side. Valvular competence appears intact within the proximal deep venous systems bilaterally. The great saphenous veins appear bilaterally patent and compressible segmentally. Sapheno-femoral junctions are bilaterally competent . The right great saphenous vein appears incompetent abovethe knee. The right great saphenous vein appears competent below the knee. The left great saphenous vein appears competent above the knee. The left great saphenous vein appears incompetent below the knee. The right small saphenous vein is patent and competent. The left small saphenous vein is patent and incompetent. The accessory saphenous vein in the left mid-calf is incompetent. Ordering Physician: Ricardo Jones Referring Physician: Maya Pradhan Performed By: Zaid Krueger T 03/28/252109 Date _ Lamin Ring MD CC: DAMON Jones; Dr. Maya Pradhan DO ~ Date Dictated: 03/28/25 1241 Date Transcribed: 03/28/252109 Distribution Dispatcher: Signed [facility] Work Phone: Blue 03-21-2025 CNOV Office Visit (UROLWS ) -------- BLANCA GILL ([id number]) 1950 M Date Time Provider Department 03/21/25 9:30 AM BRYON TURNER UROLWS During your visit today, we recorded the following information about you: Temperature Pulse Respiration Blood pressure 97.7 degrees 92/minute 18/minute 134/72 Weight Height 111.1 kg 1.664 m Ginette Sanchez LPN 03/21/2025 10:06 AM Signed Verified name and date of . CC Post Void Residual HPI: Blanca Gill is a 74 year old male. The patient is here now for an appointment with FRANSSICO Comer MT, PA-COV. Procedure: Explained procedure to patient and verbalizes understanding. Performed a PVR. Patient urinated and instructed to empty bladder as much as possible just prior to having PVR done using bladder ultrasound scanner. Results of scan: 99 mL The patient tolerated the procedure well. Plan: Appointment with Bryon Moreno PA-C 03/21/2025 10:06 AM Signed [facility] PATIENT CLINIC NOTE (M) Some elements copied from his previous note, which have been updated where appropriate, and all reflect current medical decision making from date of this visit. Note was generated by [employer] and edited as appropriate SERVICE DATE: March 21, 2025 NAME: Blanca Gill GENDER: male CHIEF COMPLAINT: The patient is a 74-year-old male with a history of BPH and diabetes, presenting for follow-up on urinary urgency. HISTORY OF PRESENT ILLNESS: The patient is a 74-year-old male with a history of BPH and diabetes, presenting for follow-up on urinary urgency. Urinary Urgency: - Persistent urinary urgency despite improvement with increased Flomax dosage. - Recent PVR of 99 mL. - Previous urology visit in March 2024 included bladder scan and catheterization. - Cystoscopy by Dr. Sidhu revealed bilobar occlusive prostate; no bladder pathology noted. - Denies current urinary tract infections. BPH: - Taking Flomax BID. - Previous Perez catheter use; removed on May 29. Diabetes: - Managed with metformin, glyburide, and insulin. - Recent increase in HbA1c levels. > We discussed the common causes of urinary frequency and urgency, and restricting water intake In hopes to mitigate the need to urinate, we discussed how this behavior more often worsen the problem not improving it, > We discussed increasing daily water intake to 64-84 oz 7a -7p and try to reduce bladder irritants, caffeine, alcohol and acid foods and drink. > Bladder irritants handout available to patient. LABS: PSA (ng/mL) Date Value 07/18/2022 1.27 No results found for: CREAT No results found for: TESTOST No results found for: HCT PSA (ng/mL) Date Value 07/18/2022 1.27 MEDICATIONS: clotrimazole (LOTRIMIN) 1 % cream Apply to affected area two times a day. furosemide (LASIX) 40 mg tablet Take 80 mg by mouth once daily. 80 MG by mouth in morning and 40 MG by mouth in afternoon OXYGEN, HOME THERAPY, Inhale 3 L/min as instructed as directed. acetaminophen 325 mg cap Take by mouth as needed. 5-fluorouracil 2.5% acyclovir 5% diclofenac 1% salicylic acid 10% topical (CPD) Apply 0.25-0.5 g to affected area two times a day. magnesium oxide (MAG-OX) 400 mg (241.3 mg magnesium) tablet Take 400 mg by mouth once daily. nitroglycerin sublingual (NITROSTAT) 0.4 mg SL tablet Dissolve 0.4 mg under the tongue every 5 minutes as needed for chest pain. Omeprazole-Sodium Bicarbonate 40-1,680 mg pack Take by mouth once daily. ACCU-CHEK LINDSAY PLUS TEST STRP test strip [...] Take 75 mg by mouth once daily. losartan 50 mg tablet Take 50 mg by mouth once daily. metFORMIN 1,000 mg tablet Take 1,000 mg by mouth twice daily with meals. montelukast (SINGULAIR) 10 mg tablet Take 10 mg by mouth daily at bedtime. fluticasone (FLONASE) 50 mcg/actuation nasal spray Use 1 [place] in each nostril once daily. econazole 1 % TOPICAL cream Apply to affected area once daily. ALPRAZolam 0.25 mg ORAL tablet Take 0.25 mg by mouth at bedtime as needed. busPIRone (BUSPAR) 10 mg tablet Take 10 mg by mouth four times daily as needed. (more content not included)... Normal [facility] UA DIP, URINE (POC)on 2024 BILIRUBIN UA (POCT) Negative Negative [facility] CLARITY UA (POCT) Clear [facility] COLOR UA (POCT) Light yellow [facility] GLUCOSE UA (POCT) 100 mg/dL Abnormal Negative [facility] Hemoglobin Ql (U) Negative Negative [facility] Interpretation and review of laboratory results Abnormal [facility] KETONE UA (POCT) Negative Negative mg/dL [facility] LEUKOCYTES UA (POCT) Negative Negative [facility] NITRITE UA (POCT) Negative Negative [facility] PH UA (POCT) 7 4.5 - 8.0 [facility] Protein Ql (U) Negative Negative mg/dL [facility] SPECIFIC GRAVITY UA (POCT) 1.015 1.005 - 1.030 [facility] UROBILINOGEN UA (POCT) 0.2 Lovely l E.U./dL [facility] Location:[facility], [address], [place], [address] [facility] POINT OF CARE [facility] Absolute lymphocyte countOrd ered By: Kasia Childs on 02-13-2025 Lymphocytes Auto (Unsp spec) [#/Vol] 2.07 10*3/uL 0.83-4.51 [facility] Absolute neutrophil countOrd ered By: Kasia Childs on 02-13-2025 Neutrophils (Bld) [#/Vol] 4.8 10*3/uL 2.0-7.7 [facility] Anion gap in Serum or Plasma Ordered By: Kasia Childs on 02-13-2025 Anion gap [Moles/Vol] 8 mmol/L 5-15 [facility] Automated lymphocyte count a s percentage of total leukocytesOrdered By: Kasia Childs on 02-13-2025 Lymphocytes/100 WBC Auto (Unsp spec) 26.4 % 19-41 [facility] BUN/creatinine ratioOrdered By: Kasia Childs on 02-13-2025 Urea nitrogen/Creatinine [Mass ratio] 18.7 mg/mg 10-20 [facility] Basophil percentageOrdered B y: Kasia Childs on 02-13-2025 Basophils/100 WBC (Bld) 0.6 % 0-1 [facility] Bilirubin, totalOrdered By: Kasia Childs on 02-13-2025 Bilirubin [Mass/Vol] 0.37 mg/dL 0.00-1.30 [facility] CBC W/Diff, Automatedon Absolute Lymph 2.07 X10 3/uL Normal 0.83-4.51 [facility] Comment on above: Order Comment: TRENTON ARNDT ORDERED LIPID,CMPMALYS ORDERED LIPID,CMP,A1,CBCD,MIACRE Performed By: #### L 501.080 #### [facility] [address] [place], [address] Absolute Neut 4.8 X10 3/uL Normal 2.0-7.7 [facility] Comment on above: Order Comment: MCCON HAIR ORDERED LIPID,CMPMALYS ORDERED LIPID,CMP,A1,CBCD,MIACRE Performed By: #### L 501.080 #### [facility] [address] [place], [address] Basophils/100 WBC (Bld) 0.6 % Normal 0-1 [facility] Comment on above: Order Comment: MCCON HAIR ORDERED LIPID,CMPMALYS ORDERED LIPID,CMP,A1,CBCD,MIACRE Performed By: #### L 501.080 #### [facility] [address] [place], [address] Eosinophils/100 WBC (Bld) 1.4 % Normal 0-5 [facility] Comment on above: Order Comment: MCCON HAIR ORDERED LIPID,CMPMALYS ORDERED LIPID,CMP,A1,CBCD,MIACRE Performed By: #### L 501.080 #### [facility] [address] [place], [address] Erythrocyte distribution width (RBC) [Ratio] 18.4 % High 11.6-14.6 [facility] Comment on above: Order Comment: MCCON HAIR ORDERED LIPID,CMPMALYS ORDERED LIPID,CMP,A1,CBCD,MIACRE Performed By: #### L 501.080 #### [facility] [address] [place], [address] Hematocrit (Bld) [Volume fraction] 38.8 % Low 40-54 [facility] Comment on above: Order Comment: MCCON HAIR ORDERED LIPID,CMPMALYS ORDERED LIPID,CMP,A1,CBCD,MIACRE Performed By: #### L 501.080 #### [facility] [address] [place], [address] Hemoglobin (Bld) [Mass/Vol] 12.0 g/dL Low 13.0-16.5 [facility] Comment on above: Order Comment: MCCON HAIR ORDERED LIPID,CMPMALYS ORDERED LIPID,CMP,A1,CBCD,MIACRE Performed By: #### L 501.080 #### [facility] [address] [place], [address] IG% 0.300 Normal 0.0-0.9 [facility] Comment on above: Order Comment: MCCON HAIR ORDERED LIPID,CMPMALYS ORDERED LIPID,CMP,A1,CBCD,MIACRE Result Comment: IG% - Immature Granulocytes (promyelocytes, myelocytes and metamyelocytes) > 1% indicates that a LEFT SHIFT is Present. Performed By: #### L 501.080 #### [facility] [address] [place], [address] Lymphocytes/100 WBC (Bld) 26.4 % Normal 19-41 [facility] Comment on above: Order Comment: MCCON HAIR ORDERED LIPID,CMPMALYS ORDERED LIPID,CMP,A1,CBCD,MIACRE Performed By: #### L 501.080 #### [facility] [address] [place], [address] MCH (RBC) [Entitic mass] 25.3 pg Low 27.0-32.0 [facility] Comment on above: Order Comment: MCCON HAIR ORDERED LIPID,CMPMALYS ORDERED LIPID,CMP,A1,CBCD,MIACRE Performed By: #### L 501.080 #### [facility] [address] [place], [address] MCHC (RBC) [Mass/Vol] 30.9 g/dL Low 32-36 [facility] Comment on above: Order Comment: MCCON HAIR ORDERED LIPID,CMPMALYS ORDERED LIPID,CMP,A1,CBCD,MIACRE Performed By: #### L 501.080 #### [facility] [address] [place], [address] MCV (RBC) [Entitic vol] 81.7 fL Normal 80-94 [facility] Comment on above: Order Comment: MCCON HAIR ORDERED LIPID,CMPMALYS ORDERED LIPID,CMP,A1,CBCD,MIACRE Performed By: #### L 501.080 #### [facility] [address] [place], [address] Monocytes/100 WBC (Bld) 10.3 % High 0-10 [facility] Comment on above: Order Comment: MCCON HAIR ORDERED LIPID,CMPMALYS ORDERED LIPID,CMP,A1,CBCD,MIACRE Performed By: #### L 501.080 #### [facility] [address] [place], [address] Neutrophils/100 WBC (Bld) 61.0 % Normal 47-70 [facility] Comment on above: Order Comment: MCCON HAIR ORDERED LIPID,CMPMALYS ORDERED LIPID,CMP,A1,CBCD,MIACRE Performed By: #### L 501.080 #### [facility] [address] [place], [address] Nucleated RBC (Bld) [#/Vol] 0 10*3/uL Normal 0-5 [facility] Comment on above: Order Comment: MCCON HAIR ORDERED LIPID,CMPMALYS ORDERED LIPID,CMP,A1,CBCD,MIACRE Performed By: #### L 501.080 #### [facility] [address] [place], [address] Platelet mean volume (Bld) [Entitic vol] 9.7 fL Normal 6.2-12.0 [facility] Comment on above: Order Comment: MCCON HAIR ORDERED LIPID,CMPMALYS ORDERED LIPID,CMP,A1,CBCD,MIACRE Performed By: #### L 501.080 #### [facility] [address] [place], [address] Platelets (Bld) [#/Vol] 247 10*3/uL Normal 150-450 [facility] Comment on above: Order Comment: MCCON [place]IR ORDERED LIPID,CMPMALYS ORDERED LIPID,CMP,A1,CBCD,MIACRE Performed By: #### L 501.080 #### [facility] [address] [place], [place], [id number] RBC (Bld) [#/Vol] 4.75 10*6/uL Normal 4.6-6.2 [facility] Comment on above: Order Comment: MCCON HAIR ORDERED LIPID,CMPMALYS ORDERED LIPID,CMP,A1,CBCD,MIACRE Performed By: #### L 501.080 #### [facility] [address] [place], [address] RDW SD 54.9 fl High 35.1-43.9 [facility] Comment on above: Order Comment: MCCON HAIR ORDERED LIPID,CMPMALYS ORDERED LIPID,CMP,A1,CBCD,MIACRE Performed By: #### L 501.080 #### [facility] [address] [place], [address] WBC (Bld) [#/Vol] 7.8 10*3/uL Normal 4.4-11.0 [facility] Comment on above: Order Comment: MCCON HAIR ORDERED LIPID,CMPMALYS ORDERED LIPID,CMP,A1,CBCD,MIACRE Performed By: #### L 501.080 #### [facility] [address] [place], [address] Calculated very low density lipoprotein (VLDL) cholesterol measurementOrdered By: Kasia Childs on 02-13-2025 Calculated very low density lipoprotein (VLDL) cholesterol measurement 17 mg/dL 5-40 [facility] Carbon dioxide, total [Moles /volume] in Central venous bloodOrdered By: Kasia Childs on 02-13-2025 CO2 [Moles/Vol] 33.2 mmol/L High 21.0-32.0 [facility] Chloride assayOrdered By: Dee Childs on 02-13-2025 Chloride [Moles/Vol] 98 mmol/L 98-108 [facility] Comprehensive Metabolic Prof ilon 02-13-2025 Albumin [Mass/Vol] 3.7 g/dL Normal 3.4-4.8 [facility] Comment on above: Order Comment: MCCON HAIR ORDERED LIPID,CMPMALYS ORDERED LIPID,CMP,A1,CBCD,MIACRE Performed By: #### L 501.080 #### [facility] [address] [place], [address] Albumin/Globulin [Mass ratio] 1.0 {ratio} Normal 0.9-2.4 [facility] Comment on above: Order Comment: MCCON HAIR ORDERED LIPID,CMPMALYS ORDERED LIPID,CMP,A1,CBCD,MIACRE Performed By: #### L 501.080 #### [facility] [address] [place], [address] ALK PHOS 65 U/L Normal 40-129 [facility] Comment on above: Order Comment: MCCON HAIR ORDERED LIPID,CMPMALYS ORDERED LIPID,CMP,A1,CBCD,MIACRE Performed By: #### L 501.080 #### [facility] [address] [place], [address] ALT [Catalytic activity/Vol] 21 U/L Normal <=46 [facility] Comment on above: Order Comment: MCCON HAIR ORDERED LIPID,CMPMALYS ORDERED LIPID,CMP,A1,CBCD,MIACRE Performed By: #### L 501.080 #### [facility] [address] [place], [address] AST [Catalytic activity/Vol] 17 U/L Normal <=37 [facility] Comment on above: Order Comment: MCCON HAIR ORDERED LIPID,CMPMALYS ORDERED LIPID,CMP,A1,CBCD,MIACRE Performed By: #### L 501.080 #### [facility] [address] [place], [address] Bilirubin [Mass/Vol] 0.37 mg/dL Normal 0.00-1.30 [facility] Comment on above: Order Comment: MCCON HAIR ORDERED LIPID,CMPMALYS ORDERED LIPID,CMP,A1,CBCD,MIACRE Performed By: #### L 501.080 #### [facility] [address] [place], [address] BUN/CRE 18.7 RATIO Normal 10-20 [facility] Comment on above: Order Comment: MCCON HAIR ORDERED LIPID,CMPMALYS ORDERED LIPID,CMP,A1,CBCD,MIACRE Performed By: #### L 501.080 #### [facility] [address] [place], [address] Calcium [Mass/Vol] 9.1 mg/dL Normal 7.6-11.0 [facility] Comment on above: Order Comment: MCCON HAIR ORDERED LIPID,CMPMALYS ORDERED LIPID,CMP,A1,CBCD,MIACRE Performed By: #### L 501.080 #### [facility] [address] [place], [address] Chloride [Moles/Vol] 98 mmol/L Normal 98-108 [facility] Comment on above: Order Comment: MCCON HAIR ORDERED LIPID,CMPMALYS ORDERED LIPID,CMP,A1,CBCD,MIACRE Performed By: #### L 501.080 #### [facility] [address] [place], [address] CO2 [Moles/Vol] 33.2 mmol/L High 21.0-32.0 [facility] Comment on above: Order Comment: MCCON HAIR ORDERED LIPID,CMPMALYS ORDERED LIPID,CMP,A1,CBCD,MIACRE Performed By: #### L 501.080 #### [facility] [address] [place], [address] Creatinine [Mass/Vol] 1.03 mg/dL Normal 0.70-1.20 [facility] Comment on above: Order Comment: MCCON HAIR ORDERED LIPID,CMPMALYS ORDERED LIPID,CMP,A1,CBCD,MIACRE Performed By: #### L 501.080 #### [facility] [address] [place], [address] GAP 8 Normal 5-15 [facility] Comment on above: Order Comment: MCCON HAIR ORDERED LIPID,CMPMALYS ORDERED LIPID,CMP,A1,CBCD,MIACRE Performed By: #### L 501.080 #### [facility] [address] [place], [address] GFR/1.73 sq M.predicted among non-blacks MDRD (S/P/Bld) [Vol rate/Area] 77 mL/min/{1.73_m2} Normal >60 [facility] Comment on above: Order Comment: MCCON HAIR ORDERED LIPID,CMPMALYS ORDERED LIPID,CMP,A1,CBCD,MIACRE Result Comment: mL/m in/1.73m2 CKD-EPI Creatinine Equation (2020) Performed By: #### L 501.080 #### [facility] [address] [place], [address] Globulin (S) [Mass/Vol] 3.9 g/dL Normal 2.2-4.2 [facility] Comment on above: Order Comment: MCCON HAIR ORDERED LIPID,CMPMALYS ORDERED LIPID,CMP,A1,CBCD,MIACRE Performed By: #### L 501.080 #### [facility] [address] [place], [address] Glucose [Mass/Vol] 125 mg/dL High 70-99 [facility] Comment on above: Order Comment: MCCON HAIR ORDERED LIPID,CMPMALYS ORDERED LIPID,CMP,A1,CBCD,MIACRE Performed By: #### L 501.080 #### [facility] [address] [place], [address] Potassium [Moles/Vol] 4.3 mmol/L Normal 3.3-5.1 [facility] Comment on above: Order Comment: MCCON HAIR ORDERED LIPID,CMPMALYS ORDERED LIPID,CMP,A1,CBCD,MIACRE Performed By: #### L 501.080 #### [facility] [address] [place], [address] Sodium [Moles/Vol] 139 mmol/L Normal 133-145 [facility] Comment on above: Order Comment: MCCON HAIR ORDERED LIPID,CMPMALYS ORDERED LIPID,CMP,A1,CBCD,MIACRE Performed By: #### L 501.080 #### [facility] [address] [place], [place], [id number] T PROT 7.6 g/dL Normal 5.9-8.4 [facility] Comment on above: Order Comment: MCCON HAIR ORDERED LIPID,CMPMALYS ORDERED LIPID,CMP,A1,CBCD,MIACRE Performed By: #### L 501.080 #### [facility] [address] [place], [place], [id number] Urea nitrogen [Mass/Vol] 19 mg/dL Normal 4-19 [facility] Comment on above: Order Comment: MCCON HAIR ORDERED LIPID,CMPMALYS ORDERED LIPID,CMP,A1,CBCD,MIACRE Performed By: #### L 501.080 #### [facility] [address] [place], [place], [id number] Eosinophil percentageOrdered By: Kasia Childs on 02-13-2025 Eosinophils/100 WBC (Bld) 1.4 % 0-5 [facility] Erythrocyte distribution wid th ratioOrdered By: Kasia Childs on 02-13-2025 Erythrocyte distribution width (RBC) [Ratio] 18.4 % High 11.6-14.6 [facility] Erythrocyte distribution wid th standard deviationOrdered By: Kasia Childs on 02-13-2025 Erythrocyte distribution width (RBC) [Ratio] 54.9 fl High 35.1-43.9 [facility] Glomerular filtration rate ( GFR) estimation/1.73 sq m using serum, plasma, or whole bOrdered By: Kasia Childs on 02-13-2025 GFR/1.73 sq M.predicted among non-blacks MDRD (S/P/Bld) [Vol rate/Area] 77 mL/min/{1.73_m2} >60 [facility] Comment on above: mL/min/1.73m2 CKD-EP I Creatinine Equation (2020) Hematocrit Auto (Bld) [Volum e fraction]Ordered By: Kasia Childs on 02-13-2025 Hematocrit (Bld) [Volume fraction] 38.8 % Low 40-54 [facility] Hemoglobin A1con 02-13-2025 HbA1c (Bld) [Mass fraction] 11.0 % High <=5.6 [facility] Comment on above: Order Comment: TRENTON ARNDT ORDERED LIPID,CMPMALYS ORDERED LIPID,CMP,A1,CBCD,MIACRE Result Comment: Norm al < 5.7 % Prediabetic 5.7 - 6.4 % Diabetic >or= 6.5 % Please note range changes. Performed By: #### L 501.080 #### [facility] [address] [place], [address] Hemoglobin A1c percentageOrd ered By: Kasia Childs on 02-13-2025 HbA1c (Bld) [Mass fraction] 11.0 % High <5.7 [facility] Comment on above: Normal < 5.7 % Predi abetic 5.7 - 6.4 % Diabetic >or= 6.5 % Please note range changes. Hemoglobin measurementOrdere d By: Kasia Childs on 02-13-2025 Hemoglobin (Bld) [Mass/Vol] 12.0 g/dL Low 13.0-16.5 [facility] Immature granulocytes/100 WB C Auto (Bld)Ordered By: Kasia Childs on 02-13-2025 Immature granulocytes/100 WBC (Bld) 0.300 % 0.0-0.9 [facility] Comment on above: IG% - Immature Granu locytes (promyelocytes, myelocytes and metamyelocytes) > 1% indicates that a LEFT SHIFT is Present. LDL calc ser/plasOrdered By: Kasia Childs on 02-13-2025 Cholesterol in LDL [Mass/Vol] 144 mg/dL [facility] Comment on above: Aofjvycmes=039-801 m g/dL & Higher Opwb=185 mg/dL or greater Laboratory - Chemistry and C hemistry - challengeOrdered By: Kasia Childs on 02-13-2025 AST [Catalytic activity/Vol] 17 U/L <38 [facility] Lipid Profileon 02-13-2025 CHOL:HDL 4.77 Normal [facility] Comment on above: Order Comment: MCCON HAIR ORDERED LIPID,CMPMALYS ORDERED LIPID,CMP,A1,CBCD,MIACRE Performed By: #### L 501.080 #### [facility] [address] [place], [address] Cholesterol [Mass/Vol] 204 mg/dL High <=200 [facility] Comment on above: Order Comment: MCCON HAIR ORDERED LIPID,CMPMALYS ORDERED LIPID,CMP,A1,CBCD,MIACRE Result Comment: Chol esterol level, Desirable <200 mg/dL Borderline high cholesterol 200-239 mg/dL High cholesterol >=240 mg/dL Recommendations of the NCEP Adult Treatment Panel for the following risk-cutoff thresholds for the [place] population. Performed By: #### L 501.080 #### [facility] [address] [place], [address] Cholesterol in HDL [Mass/Vol] 43 mg/dL Normal [facility] Comment on above: Order Comment: MCCON HAIR ORDERED LIPID,CMPMALYS ORDERED LIPID,CMP,A1,CBCD,MIACRE Result Comment: [place] onal Cholesterol Education Program (NCEP) guidelines: <40 mg/dL: Low HDL-cholesterol (major risk factor for CHD) >= 60 mg/dL: High HDL-cholesterol (negative risk factor for CHD) HDL-cholesterol is affected by a number of factors, e.g. smoking, exercise, hormones, sex and age. Performed By: #### L 501.080 #### [facility] [address] [place], [address] Cholesterol in LDL [Mass/Vol] 144 mg/dL Normal [facility] Comment on above: Order Comment: MCCON HAIR ORDERED LIPID,CMPMALYS ORDERED LIPID,CMP,A1,CBCD,MIACRE Result Comment: Bord txchej=834-049 mg/dL Higher Pnor=939 mg/dL or greater Performed By: #### L 501.080 #### [facility] [address] [place], [place], [id number] Cholesterol in VLDL [Mass/Vol] 17 mg/dL Normal 5-40 [facility] Comment on above: Order Comment: MCCON HAIR ORDERED LIPID,CMPMALYS ORDERED LIPID,CMP,A1,CBCD,MIACRE Performed By: #### L 501.080 #### [facility] [address] [place], [place], [address] Triglyceride [Mass/Vol] 84 mg/dL Normal [facility] Comment on above: Order Comment: MCCON HAIR ORDERED LIPID,CMPMALYS ORDERED LIPID,CMP,A1,CBCD,MIACRE Result Comment: The drugs N-Acetylcysteine and Metamizole may falsely depress this assay. Normal range: <150 mg/dL Borderline High: 150-199 mg/dL High: 200-499 mg/dL Very High: >500 mg/dL Performed By: #### L 501.080 #### [facility] [address] [place], [place], [id number] MCV (mean corpuscular volume ) determinationOrdered By: Kasia Childs on 02-13-2025 MCV (RBC) [Entitic vol] 81.7 fL 80-94 [facility] Mean corpuscular hemoglobin (MCH) determinationOrdered By: Kasia Childs on 02-13-2025 MCH (RBC) [Entitic mass] 25.3 pg Low 27.0-32.0 [facility] Mean corpuscular hemoglobin concentration (MCHC) determinationOrdered By: Kasia Childs on 02-13-2025 MCHC (RBC) [Mass/Vol] 30.9 g/dL Low 32-36 [facility] Mean platelet volume determi nationOrdered By: Kasia Childs on 02-13-2025 Platelet mean volume (Bld) [Entitic vol] 9.7 fL 6.2-12.0 [facility] Microalb:Creat Ratio,Random URon 02-13-2025 MALB:CREAT Normal [facility] Comment on above: Order Comment: MCCON HAIR ORDERED LIPID,CMPMALYS ORDERED LIPID,CMP,A1,CBCD,MIACRE Result Comment: UTO Performed By: #### L 501.080 #### [facility] [address] [place], [address] MICROALBUMIN,UR Normal NO RANGE EST. [facility] Comment on above: Order Comment: MCCON [place]IR ORDERED LIPID,CMPMALYS ORDERED LIPID,CMP,A1,CBCD,MIACRE Result Comment: UTO Performed By: #### L 501.080 #### [facility] [address] [place], [address] UR CREAT Normal 39.00-259.0 0 [facility] Comment on above: Order Comment: MCCON HAIR ORDERED LIPID,CMPMALYS ORDERED LIPID,CMP,A1,CBCD,MIACRE Result Comment: UTO Performed By: #### L 501.080 #### [facility] [address] [place], [address] Monocyte percentageOrdered B y: Kasia Childs on 02-13-2025 Monocytes/100 WBC (Bld) 10.3 % High 0-10 [facility] Neutrophil percentageOrdered By: Kasia Childs on 02-13-2025 Neutrophils/100 WBC (Bld) 61.0 % 47-70 [facility] Nucleated red blood cell per centageOrdered By: Kasia Childs on 02-13-2025 Nucleated RBC/100 WBC (Bld) [Ratio] 0 % 0-5 [facility] Platelet countOrdered By: Dee Childs on 02-13-2025 Platelets (Bld) [#/Vol] 247 10*3/uL 150-450 [facility] Potassium measurement (mass/ volume)Ordered By: Kasia Childs on 02-13-2025 Potassium (Unsp spec) [Mass/Vol] 4.3 mmol/L 3.3-5.1 [facility] RBC Auto (Bld) [#/Vol]Ordere d By: Kasia Childs on 02-13-2025 RBC (Bld) [#/Vol] 4.75 10*6/uL 4.6-6.2 [facility] Screening total cholesterol/ high density lipoprotein (HDL) cholesterol ratioOrdered By: Kasia Childs on 02-13-2025 Cholesterol.total/Susan sterol in HDL [Mass ratio] 4.77 {ratio} [facility] Serum creatinine measurement (mass/volume)Ordered By: Kasia Childs on 02-13-2025 Creatinine [Mass/Vol] 1.03 mg/dL 0.70-1.20 [facility] Serum globulin measurementOr dered By: Kasia Childs on 02-13-2025 Globulin (S) [Mass/Vol] 3.9 g/dL 2.2-4.2 [facility] Serum glucose measurement (m ass/volume)Ordered By: Kasia Childs on 02-13-2025 Glucose [Mass/Vol] 125 mg/dL High 70-99 [facility] Serum or plasma alanine briones otransferase (ALT) measurementOrdered By: Kasia Childs on 02-13-2025 ALT [Catalytic activity/Vol] 21 U/L <47 [facility] Serum or plasma albumin ale urement (mass/volume)Ordered By: Kasia Childs on 02-13-2025 Albumin [Mass/Vol] 3.7 g/dL 3.4-4.8 [facility] Serum or plasma albumin/glob ulin mass ratioOrdered By: Kasia Childs on 02-13-2025 Albumin/Globulin [Mass ratio] 1.0 {ratio} 0.9-2.4 [facility] Serum or plasma alkaline sherlyn sphatase measurementOrdered By: Kasia Chilsd on 02-13-2025 ALP [Catalytic activity/Vol] 65 U/L 40-129 [facility] Serum or plasma calcium ale urement (mass/volume)Ordered By: Kasia Childs on 02-13-2025 Calcium [Mass/Vol] 9.1 mg/dL 7.6-11.0 [facility] Serum or plasma cholesterol in HDL measurement (mass/volume)Ordered By: Kasia Childs on 02-13-2025 Cholesterol in HDL [Mass/Vol] 43 mg/dL >40 [facility] Comment on above: National Cholesterol Education Program (NCEP) guidelines:<40 mg/dL: Low HDL-cholesterol (major risk factor for CHD)>= 60 mg/dL: High HDL-cholesterol (negative risk factor for CHD)HDL-cholesterol is affected by a number of factors, e.g. smoking, exercise, hormones, sex and age. Serum or plasma cholesterol measurement (mass/volume)Ordered By: Kasia Childs on 02-13-2025 Cholesterol [Mass/Vol] 204 mg/dL High <201 [facility] Comment on above: Cholesterol level, D esirable <200 mg/dLBorderline high cholesterol 200-239 mg/dLHigh cholesterol >=240 mg/dLRecommendations of the NCEP Adult Treatment Panel for the following risk-cutoff thresholds for the [place] population. Serum or plasma urea nitroge n measurement (mass/volume)Ordered By: Kasia Childs on 02-13-2025 Urea nitrogen [Mass/Vol] 19 mg/dL 4-19 [facility] Sodium levelOrdered By: He Childs on 02-13-2025 Sodium [Moles/Vol] 139 mmol/L 133-145 [facility] Total proteinOrdered By: Yvan Childs on 02-13-2025 Protein [Mass/Vol] 7.6 g/dL 5.9-8.4 [facility] Triglycerides measurementOrd ered By: Kasia Childs on 02-13-2025 Triglyceride [Mass/Vol] 84 mg/dL <199 [facility] Comment on above: The drugs N-Acetylcy steine and Metamizole may falsely depress this assay. Normal range: <150 mg/dLBorderline High: 150-199 mg/dLHigh: 200-499 mg/dLVery High: >500 mg/dL White blood cell (WBC) count Ordered By: Kasia Childs on 02-13-2025 WBC (Bld) [#/Vol] 7.8 10*3/uL 4.4-11.0 [facility] CNOVon 01-24-2025 CNOV Office Visit ([facility]WSTR ) -------- BLANCA GILL ([id number]) 1950 M Date Time Provider Department 01/24/25 10:15 AM ROCHELLE BRANCH [facility] During your visit today, we recorded the following information about you: Temperature Pulse Respiration Blood pressure 97.9 degrees 90/minute 18/minute 138/72 Weight 112.4 kg Rochelle Branch PA-C 01/25/2025 7:18 PM Signed This note was created using Nevro. Subjective Blanca Gill is a 74 year old male. Patient is a 74-year-old male who complains of a recurring red, irritating rash to the base of his glans penis that has been present for approximately the past 2 weeks. Patient was seen and evaluated at this facility on 31 December 2024 at which time he was diagnosed with tinea cruris. Patient was provided with a prescription for clotrimazole cream which he states did not improve his symptoms. Patient states that his symptoms subsequently returned. Patient complains of irritation and itching to the site. Patient reports no bleeding, serous appearing fluid. Patient reports that the skin to the shaft of the penis is unaffected and he is also not experiencing any rash or itching symptoms to his scrotum. Patient denies dysuria or hematuria and reports no urethral irritation. Patient is diabetic. Rash Review of Systems Skin: Positive for rash. All other systems reviewed and are negative. Objective BP 138/72 Pulse 90 Temp 36.6 ?C (97.9 ?F) Resp 18 Wt 112.4 kg (247 lb 12.8 oz) SpO2 94% BMI 40.61 kg/m? Physical Exam Vitals and nursing note reviewed. Constitutional: Appearance: Normal appearance. He is normal weight. HENT: Head: Normocephalic and atraumatic. Nose: Nose normal. Mouth/Throat: Mouth: Mucous membranes are moist. Pharynx: Oropharynx is clear. Eyes: Extraocular Movements: Extraocular movements intact. Conjunctiva/sclera: Conjunctivae normal. Pupils: Pupils are equal, round, and reactive to light. Cardiovascular: Rate and Rhythm: Normal rate. Pulses: Normal pulses. Pulmonary: Effort: Pulmonary effort is normal. Breath sounds: Normal breath sounds. Genitourinary: Penis: Normal. Testes: Normal. Musculoskeletal: Cervical back: Normal range of motion and neck supple. Skin: General: Skin is warm and dry. Capillary Refill: Capillary refill takes less than 2 seconds. Findings: Erythema and rash present. No bruising or lesion. Comments: There is an erythematous circumferential ring noted to the skin of the penis at the border of the glans penis. No bleeding, serous or purulent fluid is noted. No pustules, vesicles or other skin lesions are noted. No induration or fluctuance is noted with palpation. Remainder of exam to the skin of the glans penis, penis and scrotum is unremarkable. Neurological: General: No focal deficit present. Mental Status: He is alert and oriented to person, place, and time. Psychiatric: Mood and Affect: Mood normal. Behavior: Behavior normal. Thought Content: Thought content normal. Judgment: Judgment normal. Assessment and Plan Physical exam findings as noted above. Patient was advised to continue using the clotrimazole cream and he was provided with a prescription for Diflucan 150 mg #2. Patient was advised to schedule an appointment with his primary care physician if his symptoms do not improve with the above medications. Additional skin care instructions were discussed and the patient verbalizes good understanding of same. CLINICAL IMPRESSION: Tinea Cruris Margin of Glans Penis ASSESSMENT/PLAN: 1. Tinea cruris - ICD9: 110.3, ICD10: B35.6 - FLUCONAZOLE 150 MG TABLET MDM Risk of Complications, Morbidity, and/or Mortality Presenting problems: low Diagnostic procedures: low Management options: tish Branch PA-C Allergies As of Date: 01/24/2025 Noted Allergy Reaction ASPERGILLUS FUMIGATUS ALLERGENIC *12/18/2010 16 - Unknown BENADRYL (DIPHENHYDRAMINE HCL) 12/18/2010 14 - Other: See Comments Comments: agitation BIAXIN (CLARITHROMYCIN) 12/18/2010 7 - Swelling 12 - Shortness of Breath BYETTA (EXENATIDE) 10/14/2013 7 - Swelling 8 - GI Upset 14 - Other: See Comments Comments: aching in joints LEVSIN (HYOSCYAMINE SULFATE) 12/18/2010 16 - Unknown LIDOCAINE 10/14/2013 10 - Anaphylaxis NAPROSYN (NAPROXEN) 12/18/2010 7 - Swelling 9 - Itching PENICILLINS 12/18/2010 10 - Anaphylaxis QUININE HCL 12/18/2010 16 - Unknown Date Reviewed: 01/24/2025 Reviewed by: aKylen Woodall MA - Fully Assessed Reason for Visit: Rash [1087] Cmt: groin area ongoing Primary Visit Diagnosis:Tinea cruris [B35.6] Order(s):[] fluconazole (DIFLUCAN) 150 mg tabletTake 1 tablet by mouth one time only for 1 dose. Repeat in 3 days as needed.Disp: 2 tabletRfl: 0 Prescriptions as of 01/25/2025 - clotrimazole (LOTRIMIN) 1 % cream Apply to affected area two times a day. - f (more content not included)... [facility] CNOVon 12-31-2024 CNOV Office Visit ([facility] ) -------- BLANCA GILL ([id number]) 1950 M Date Time Provider Department 12/31/24 1:00 PM MARISA BLANCO [facility] During your visit today, we recorded the following information about you: Temperature Pulse Respiration Blood pressure 98.3 degrees 98/minute 18/minute 132/74 Weight 112.3 kg Marisa Blanco APRN.MANAGER GAME 12/31/2024 1:26 PM Signed [facility] Subjective Blanca Gill is a 74 year old male. Patient presents with: Groin Pain: bleeding in groin x this am HPI Penile Irritation and Bleeding: - Reports rawness and bleeding under the foreskin, particularly noticeable upon waking. - Has a history of yeast infections. - Using antifungal cream PRN, with increased use this week due to flare-up and soreness. - Noticed a lump under the foreskin where bleeding occurs. - Describes the area as very tender and touchy. Review of Systems Constitutional: Negative for fever. Musculoskeletal: Negative for arthralgias and neck pain. Skin: Negative for color change. Redness and itching on penis and groin area Neurological: Negative for headaches. Psychiatric/Behavioral: Negative for confusion. Objective There were no vitals taken for this visit. Physical Exam Exam conducted with a design sales consultant present. Constitutional: General: He is not in acute distress. HENT: Head: Normocephalic and atraumatic. Eyes: Conjunctiva/sclera: Conjunctivae normal. Pupils: Pupils are equal, round, and reactive to light. Pulmonary: Effort: Pulmonary effort is normal. Genitourinary: Pubic Area: Rash present. Penis: Tenderness present. No discharge or lesions. Comments: Ely Woodall MA present for exam Redness on glans, no lesions or lumps present Musculoskeletal: Cervical back: Normal range of motion and neck supple. Skin: General: Skin is warm and dry. Neurological: Mental Status: He is alert and oriented to person, place, and time. History and Record Review External record(s) reviewed: prior labs/imaging. Findings from review of prior labs/imaging: Previous Renal Function Panel Reviewed No results within last 365 days. ASSESSMENT/PLAN: 1. Tinea cruris - ICD9: 110.3, ICD10: B35.6 (primary diagnosis) - Treat with clotrimazole twice a day until rash resolves and then another week - Keep area of concern very dry. Ok to use OTC antifungal powder if area is moist - Follow up with PCP if symptoms persist or do not improved after 4-6 weeks of treatment. 2. Penile irritation - ICD9: 607.89, ICD10: N48.89 Appears to be a yeast infection Treat with clotrimazole as discussed follow up with urology/pcp as needed Diagnosis and treatment plan were discussed and questions were answered to the patient's satisfaction. Pt acknowledged understanding of concepts and follow up plan. Specific signs and symptoms that would indicate the need for higher level of care were discussed in detail warranting prompt ER evaluation. Marisa Blanco APRN.Marisa Painter APRN.BENJAMIN 12/31/2024 1:25 PM Addendum - Treat with clotrimazole twice a day until rash resolves and then another week - Keep area of concern very dry. Ok to use OTC antifungal powder if area is moist - Follow up with PCP if symptoms persist or do not improved after 4-6 weeks of treatment. Allergies As of Date: 12/31/2024 Noted Allergy Reaction ASPERGILLUS FUMIGATUS ALLERGENIC *12/18/2010 16 - Unknown BENADRYL (DIPHENHYDRAMINE HCL) 12/18/2010 14 - Other: See Comments Comments: agitation BIAXIN (CLARITHROMYCIN) 12/18/2010 7 - Swelling 12 - Shortness of Breath BYETTA (EXENATIDE) 10/14/2013 7 - Swelling 8 - GI Upset 14 - Other: See Comments Comments: aching in joints LEVSIN (HYOSCYAMINE SULFATE) 12/18/2010 16 - Unknown LIDOCAINE 10/14/2013 10 - Anaphylaxis NAPROSYN (NAPROXEN) 12/18/2010 7 - Swelling 9 - Itching PENICILLINS 12/18/2010 10 - Anaphylaxis QUININE HCL 12/18/2010 16 - Unknown Date Reviewed: 12/31/2024 Reviewed by: Marisa Blanco APRN.MANAGER GAME - Fully Assessed Reason for Visit: Groin Pain [1378] Cmt: bleeding in groin x this am Primary Visit Diagnosis:Tinea cruris [B35.6] Other Visit Diagnosis:Penile irritation [N48.89] Order(s):clotrimazole (LOTRIMIN) 1 % creamApply to affected area two times a day.Disp: 60 gRfl: 0 Prescriptions as of 12/31/2024 - clotrimazole (LOTRIMIN) 1 % cream Apply to affected area two times a day. - furosemide (LASIX) 40 mg tablet Take 80 mg by mouth once daily. 80 MG by mouth in morning and 40 MG by mouth in afternoon - OXYGEN, HOME THERAPY, Inhale 3 L/min as instructed as directed. - acetaminophen 325 mg cap Take by mouth as needed. - furosemide (LASIX) 40 mg/4 mL soln - 5-fluorouracil 2.5% acyclovir 5% diclofenac 1% salicylic acid 10% topical (CPD) Apply 0.25-0.5 g to affected area two times a day. - magnesium oxide (MAG-OX) 400 mg (241.3 mg magnesium) tablet (more content not included)... [facility] CNOVon 12-21-2024 CNOV Office Visit ([facility] ) -------- BLANCA GILL ([id number]) 1950 M Date Time Provider Department 12/21/24 12:30 PM SALLY HERNDON During your visit today, we recorded the following information about you: Temperature Pulse Respiration Blood pressure 98 degrees 98/minute 16/minute 122/70 Weight 113.2 kg Sally Herndon APRN.MANAGER GAME 12/21/2024 1:00 PM Signed [facility] Subjective HPI HPI Blanca Gill is a 74 year old male who presents today for CC of bilat lower leg redness/swelling/tendern ess. This started few days ago/worsening. Has tried cream from pcp without relief. Symptoms are worsened by nothing. Risk factors has had this in past needed atb to resolve. Denies injury and fever. .Patient presents with: Derm Problem: bilateral redness and swelling bilateral x 1 day, yeast PAST MEDICAL HISTORY Diagnosis Date Allergic rhinitis Anxiety BPH with obstruction/lower urinary tract symptoms Diabetes (HCC) Essential hypertension, benign Hypertension Hypertrophy of prostate with urinary obstruction and other lower urinary tract symptoms (LUTS) Intrinsic asthma with status asthmaticus ([facility]) Irritable bowel syndrome OAB (overactive bladder) Pure hypercholesterolemia Restless leg syndrome Sinusitis, chronic Tobacco abuse Urine retention PAST SURGICAL HISTORY Procedure Laterality Date APPENDECTOMY CHOLECYSTECTOMY CYSTOSCOPY 07/14/2024 PAST SURGICAL HISTORY OF 2009 left knee arthroscopy VASECTOMY XCAPSL CTRC RMVL INSJ IO LENS PROSTH W/O ECP Left 07/29/2018 XCAPSL CTRC RMVL INSJ IO LENS PROSTH W/O ECP Right 08/19/2018 Cataract Extraction with PC IOL ALLERGIES Aspergillus Fumigatus Allergenic Extract, Benadryl [Diphenhydramine Hcl], Biaxin [Clarithromycin], Byetta [Exenatide], Levsin [Hyoscyamine Sulfate], Lidocaine, Naprosyn [Naproxen], Penicillins, and Quinine Hcl MEDICATIONS furosemide (LASIX) 40 mg tablet Take 80 mg by mouth once daily. 80 MG by mouth in morning and 40 MG by mouth in afternoon OXYGEN, HOME THERAPY, Inhale 3 L/min as instructed as directed. acetaminophen 325 mg cap Take by mouth as needed. furosemide (LASIX) 40 mg/4 mL soln 5-fluorouracil 2.5% acyclovir 5% diclofenac 1% salicylic acid 10% topical (CPD) Apply 0.25-0.5 g to affected area two times a day. magnesium oxide (MAG-OX) 400 mg (241.3 mg magnesium) tablet Take 400 mg by mouth once daily. nitroglycerin sublingual (NITROSTAT) 0.4 mg SL tablet Dissolve 0.4 mg under the tongue every 5 minutes as needed for chest pain. Omeprazole-Sodium Bicarbonate 40-1,680 mg pack Take by mouth once daily. tamsulosin (FLOMAX) 0.4 mg Take 1 capsule by mouth two times a day. ACCU-CHEK LINDSAY PLUS TEST STRP test strip [...] mg cap Take by mouth twice daily. (Patient taking differently: Take by mouth two times a day. Once daily) carvedilol (COREG) 3.125 mg tablet Take 3.125 mg by mouth twice daily with meals. Cyanocobalamin 2,500 mcg subl Dissolve under the tongue. pravastatin (PRAVACHOL) 40 mg tablet Take 40 mg by mouth once daily. aspirin, enteric coated (ASPIRIN, ENTERIC COATED) 81 mg EC tablet Take 81 mg by mouth once daily. clopidogrel (PLAVIX) 75 mg tablet Take 75 mg by mouth once daily. losartan 50 mg tablet Take 50 mg by mouth once daily. metFORMIN 1,000 mg tablet Take 1,000 mg by mouth twice daily with meals. montelukast (SINGULAIR) 10 mg tablet Take 10 mg by mouth daily at bedtime. sitaGLIPtin (JANUVIA) 100 mg tablet Take 100 mg by mouth once daily. fluticasone (FLONASE) 50 mcg/actuation nasal spray Use 1 [place] in each nostril once daily. mometasone-formoterol (DULERA) 200-5 mcg/actuation inhaler Inhale as instructed two times a day. (Patient taking differently: Inhale as instructed two times a day. Two times daily as needed) econazole 1 % TOPICAL cream Apply to affected area once daily. ALPRAZolam 0.25 mg ORAL tablet Take 0.25 mg by mouth at bedtime as needed. busPIRone (BUSPAR) 10 mg tablet Take 10 mg by mouth four times daily as needed. pramipexole (MIRAPEX) 1 mg tablet Take 1 mg by mouth twice daily. metoprolol succinate XL (TOPROL XL) 25 mg ORAL 24 hr tablet Take 25 mg by mouth once daily. ALBUTEROL SULFATE (PROVENTIL HFA INHALATION) Inhale as instructed. diphenoxylate-atropine (LOMOTIL) 2.5-0.025 mg per tablet Take 1 tablet by mouth four times a day as needed. azelastine (ASTELIN, ASTEPRO) 0.1% nasal spray Use 1 [place] in the nose two times a day. Use in each nostril as directed econazole (SPECTAZOLE) 1 % cream Apply to affected area once daily. glyBURIDE 2.5 mg ORAL tablet (more content not included)... [facility] Bacteria Ur Culton 5 Bacteria identified Cx Nom (U) ORGANISM ID: 1 <10,000 CFU/ml Normal urogenital sarah [facility] Comment on above: Performed By: #### 6 30-4 ####[facility] LABIA [id number] [address] [place] CNOVon 12-13-2024 CNOV Office Visit (UROLWS ) -------- BLANCA GILL ([id number]) 1950 M Date Time Provider Department 12/13/24 9:00 AM BRYON TURNER During your visit today, we recorded the following information about you: Temperature Pulse Respiration Blood pressure 97.9 degrees 95/minute 18/minute 144/86 Weight Height 112 kg 1.664 m Daniel GinetteELIOT 12/13/2024 6:59 PM Signed Verified name and date of . CC Post Void Residual HPI: Blanca Gill is a 74 year old male. The patient is here now for an appointment with FRANSISCO Comer MT, PA-COV. Procedure: Explained procedure to patient and verbalizes understanding. Performed a PVR. Patient urinated and instructed to empty bladder as much as possible just prior to having PVR done using bladder ultrasound scanner. Results of scan: 29 mL The patient tolerated the procedure well. Plan: Appointment with Bryon Moreno PA-C 12/13/2024 6:59 PM Signed [facility] [place] EST PATIENT CLINIC NOTE (M) Some elements copied from his previous note, which have been updated where appropriate, and all reflect current medical decision making from date of this visit. SERVICE DATE: December 13, 2024 NAME: Blanca Gill GENDER: male CHIEF COMPLAINT: BPH, Urgency and Impotence HISTORY OF PRESENT ILLNESS: Blanca Gill is a 74 year old male patient here following up for BPH, Urgency and Impotence The patient reports he has been having worsening urinary urgency and recent history of UTI which has been treated and UA today appears negative Will send urine culture today. After review of his medications shows he is taking Farxiga and Lasix which is likely contributing to this urgency, and being that These are working well for him I explained we could try a OAB medication, but these often have SE's themselves and he would rather leave thing as they are for now And will let me know if he would like to try one. For his Impotence he cannot take PDE5i since he takes long acting nitroglycerin medications, he has tried IV Injections In the past , so I recommended restarting that, but he is not interested at this time. > 2021 - PSA 1.27 > PVR - 29 ml > We discussed increasing daily water intake to 64-84 oz 7a -7p and try to reduce bladder irritants, caffeine, alcohol and acid foods and drink. > Bladder irritants handout available to patient. LUTS: Urinary Urgency Other symptoms: ED - yes Previous ED medications: yes IC Injections - not interested in restarting right now LABS: PSA (ng/mL) Date Value 07/18/2022 1.27 MEDICATIONS: furosemide (LASIX) 40 mg tablet Take 80 mg by mouth once daily. 80 MG by mouth in morning and 40 MG by mouth in afternoon OXYGEN, HOME THERAPY, Inhale 3 L/min as instructed as directed. acetaminophen 325 mg cap Take by mouth as needed. magnesium oxide (MAG-OX) 400 mg (241.3 mg magnesium) tablet Take 400 mg by mouth once daily. nitroglycerin sublingual (NITROSTAT) 0.4 mg SL tablet Dissolve 0.4 mg under the tongue every 5 minutes as needed for chest pain. Omeprazole-Sodium Bicarbonate 40-1,680 mg pack Take by mouth once daily. tamsulosin (FLOMAX) 0.4 mg Take 1 capsule by mouth two times a day. ACCU-CHEK LINDSAY PLUS TEST STRP test strip [...] mg cap Take by mouth twice daily. (Patient taking differently: Take by mouth two times a day. Once daily) carvedilol (COREG) 3.125 mg tablet Take 3.125 [...] (FLONASE) 50 mcg/actuation nasal spray Use 1 [place] in each nostril once daily. mometasone-formoterol (DULERA) 200-5 mcg/actuation inhaler Inhale as instructed two times a day. (Patient taking differently: Inhale as instructed two times a day. Two times daily as needed) ALPRAZolam 0.25 mg ORAL tablet Take 0.25 mg by mouth at bedtime as needed. busPIRone (BUSPAR) 10 mg tablet Take 10 mg by mouth four times daily as needed. pramipexole (MIRAPEX) 1 mg tablet Take 1 mg by mouth twice daily. ALBUTEROL SULFATE (PROVENTIL HFA INHALATION) Inhale as instructed. diphenoxylate (more content not included)... [facility] UA DIP, URINE (POC)on 2024 BILIRUBIN UA (POCT) Negative Negative [facility] CLARITY UA (POCT) Slightly Cloudy Cl [facility] COLOR UA (POCT) Yellow [facility] GLUCOSE UA (POCT) 500 mg/dL Abnormal Negative [facility] Hemoglobin Ql (U) Negative Negative [facility] Interpretation and review of laboratory results Abnormal [facility] KETONE UA (POCT) Negative Negative mg/dL [facility] LEUKOCYTES UA (POCT) Negative Negative [facility] NITRITE UA (POCT) Negative Negative [facility] PH UA (POCT) 7 4.5 - 8.0 [facility] Protein Ql (U) 30 mg/dL Abnormal Negative [facility] SPECIFIC GRAVITY UA (POCT) 1.02 1.005 - 1.030 [facility] UROBILINOGEN UA (POCT) 0.2 Lovely l E.U./dL [facility] Location:[facility], [address], [place], [address] [facility] POINT OF CARE [facility] Danielle 11-29-2024 BENJAMINN Telephone (UROLWS) -------- BLANCA GILL ([id number]) 1950 M Date Time Provider Department 11/29/24 BRYON TURNER During your visit today, we recorded the following information about you: Margarita Jimenez RN 11/29/2024 10:52 AM Signed Patient calling in for an appointment with Urology. States that he was referred to [facility] for ED as his previous provider in [place] does not treat for that. Patient states that 2 days ago he started to develop some urinary symptoms as well including burning, feeling like he is not emptying his bladder all the way, and frequency and urgency which he is not sure if it is worse since he is on water pills. Patient states that he has had to have a catheter placed in the past due to not emptying his bladder all the way. Informed patient that he may need to be seen either at [facility] or the ED if he is having these symptoms, especially since he does not currently have an upcomming urology appointment. Patient does not want to go to [facility] if they can not place a perez if needed. Reached out to [facility] and they do not place perez's. Informed the patient that if he is having urinary frequency, urgency, burning, and difficulty emptying his bladder then he should be seen in the ED. Especially since he has had to have catheter's placed for this before. Patient agreeable. It appears patient had called to schedule appointment with [facility] for referral for ED, they offered him March and he declined. No current appointment scheduled. Informed patient that It would be best to get him on the schedule to see Urology and we can place him on a waitlist. Patient agreeable. Transferred to scheduling. Allergies As of Date: 11/29/2024 Noted Allergy Reaction ASPERGILLUS FUMIGATUS ALLERGENIC *12/18/2010 16 - Unknown BENADRYL (DIPHENHYDRAMINE HCL) 12/18/2010 14 - Other: See Comments Comments: agitation BIAXIN (CLARITHROMYCIN) 12/18/2010 7 - Swelling 12 - Shortness of Breath BYETTA (EXENATIDE) 10/14/2013 7 - Swelling 8 - GI Upset 14 - Other: See Comments Comments: aching in joints LEVSIN (HYOSCYAMINE SULFATE) 12/18/2010 16 - Unknown LIDOCAINE 10/14/2013 10 - Anaphylaxis NAPROSYN (NAPROXEN) 12/18/2010 7 - Swelling 9 - Itching PENICILLINS 12/18/2010 10 - Anaphylaxis QUININE HCL 12/18/2010 16 - Unknown Date Reviewed: 10/01/2024 Reviewed by: Altagracia Richards LPN - Fully Assessed Reason for Visit: Patient Question [1477] Prescriptions as of 12/02/2024 - acetaminophen 325 mg cap Take by mouth as needed. - furosemide (LASIX) 40 mg/4 mL soln - 5-fluorouracil 2.5% acyclovir 5% diclofenac 1% salicylic acid 10% topical (CPD) Apply 0.25-0.5 g to affected area two times a day. - magnesium oxide (MAG-OX) 400 mg (241.3 mg magnesium) tablet Take 400 mg by mouth once daily. - nitroglycerin sublingual (NITROSTAT) 0.4 mg SL tablet Dissolve 0.4 mg under the tongue every 5 minutes as needed for chest pain. - Omeprazole-Sodium Bicarbonate 40-1,680 mg pack Take by mouth. - tamsulosin (FLOMAX) 0.4 mg Take 1 capsule by mouth two times a day. - ACCU-CHEK LINDSAY PLUS TEST STRP test strip - ACCU-CHEK GUIDE ME GLUCOSE MTR USE DIRECTED THREE TIMES DAILY - NOVOLIN N NPH U-100 INSULIN 100 unit/mL injection INJECT 40 UNITS SUBCUTANEOUSLY IN THE MORNING AND IN THE EVENING - isosorbide mononitrate ER (IMDUR) 30 mg 24 hr tablet Take 30 mg by mouth once daily. - ubidecarenone Q-10 (COENZYME Q-10) 10 mg cap Take by mouth twice daily. - carvedilol (COREG) 3.125 mg tablet Take 3.125 mg by mouth twice daily with meals. - Cyanocobalamin 2,500 mcg subl Dissolve under the tongue. - pravastatin (PRAVACHOL) 40 mg tablet Take 40 mg by mouth once daily. - aspirin, enteric coated (ASPIRIN, ENTERIC COATED) 81 mg EC tablet Take 81 mg by mouth once daily. - clopidogrel (PLAVIX) 75 mg tablet Take 75 mg by mouth once daily. - losartan 50 mg tablet Take 50 mg by mouth once daily. - metFORMIN 1,000 mg tablet Take 1,000 mg by mouth twice daily with meals. - montelukast (SINGULAIR) 10 mg tablet Take 10 mg by mouth daily at bedtime. - sitaGLIPtin (JANUVIA) 100 mg tablet Take 100 mg by mouth once daily. - fluticasone (FLONASE) 50 mcg/actuation nasal spray Use 1 [place] in each nostril once daily. - mometasone-formoterol (DULERA) 200-5 mcg/actuation inhaler Inhale as instructed two times a day. - econazole 1 % TOPICAL cream Apply to affected area once daily. - ALPRAZolam 0.25 mg ORAL tablet Take 0.25 mg by mouth at bedtime as needed. - busPIRone (BUSPAR) 10 mg tablet Take 10 mg by mouth four times daily as needed. - pramipexole (MIRAPEX) 1 mg tablet Take 1 mg by mouth twice daily. - metoprolol succinate XL (TOPROL XL) 25 mg ORAL 24 hr tablet Take 25 mg by mouth once daily. - ALBUTEROL SULFATE (PROVENTIL HFA INHALATION) Inhale as instructed. - di (more content not included)... Normal [facility] 11-28-2024 ANITA Telephone (UROLWS) -------- BLANCA GILL ([id number]) 1950 M Date Time Provider Department 11/28/24 BRYON TURNER During your visit today, we recorded the following information about you: Rhiannon Bynum 11/28/2024 3:47 PM Signed Patient called to request to speak with nurse. Patient was referred to [facility] by Lamar Quinones CNP. Patient is wanting to discuss how the providers treat for ED prior to scheduling consultation. Please contact patient at ph. [phone]. Ginette Sanchez LPN 12/02/2024 8:32 AM Signed Called patient. No answer- left message to call clinic to discuss. ELIOT Figueroa Amy M, MA 12/02/2024 8:53 AM Signed Patient returned call. No message to pass along to the patient. Staff not available to speak with patient. Please call patient back. Ginette Sanchez LPN 12/02/2024 10:42 AM Signed Called patient. Verified name and date of . Answered questions regarding appointment. Scheduled with provider. Patient is asking to have appointment reviewed to verify that referral is not needed. Patient is currently seeing Lamar Quinones CNP for BPH/PSA. ELIOT Figueroa Stephanie 12/02/2024 10:56 AM Signed S[poke with patient and authorization/referral does not appear to be required for his visit. Patient stated that we should be getting a referral faxed to us just in case. Alanna Vital Allergies As of Date: 11/28/2024 Noted Allergy Reaction ASPERGILLUS FUMIGATUS ALLERGENIC *12/18/2010 16 - Unknown BENADRYL (DIPHENHYDRAMINE HCL) 12/18/2010 14 - Other: See Comments Comments: agitation BIAXIN (CLARITHROMYCIN) 12/18/2010 7 - Swelling 12 - Shortness of Breath BYETTA (EXENATIDE) 10/14/2013 7 - Swelling 8 - GI Upset 14 - Other: See Comments Comments: aching in joints LEVSIN (HYOSCYAMINE SULFATE) 12/18/2010 16 - Unknown LIDOCAINE 10/14/2013 10 - Anaphylaxis NAPROSYN (NAPROXEN) 12/18/2010 7 - Swelling 9 - Itching PENICILLINS 12/18/2010 10 - Anaphylaxis QUININE HCL 12/18/2010 16 - Unknown Date Reviewed: 10/01/2024 Reviewed by: Altagracia Richards LPN - Fully Assessed Reason for Visit: New Patient [172] Patient Question [1477] Prescriptions as of 12/02/2024 - acetaminophen 325 mg cap Take by mouth as needed. - furosemide (LASIX) 40 mg/4 mL soln - 5-fluorouracil 2.5% acyclovir 5% diclofenac 1% salicylic acid 10% topical (CPD) Apply 0.25-0.5 g to affected area two times a day. - magnesium oxide (MAG-OX) 400 mg (241.3 mg magnesium) tablet Take 400 mg by mouth once daily. - nitroglycerin sublingual (NITROSTAT) 0.4 mg SL tablet Dissolve 0.4 mg under the tongue every 5 minutes as needed for chest pain. - Omeprazole-Sodium Bicarbonate 40-1,680 mg pack Take by mouth. - tamsulosin (FLOMAX) 0.4 mg Take 1 capsule by mouth two times a day. - ACCU-CHEK LINDSAY PLUS TEST STRP test strip - ACCU-CHEK GUIDE ME GLUCOSE MTR USE DIRECTED THREE TIMES DAILY - NOVOLIN N NPH U-100 INSULIN 100 unit/mL injection INJECT 40 UNITS SUBCUTANEOUSLY IN THE MORNING AND IN THE EVENING - isosorbide mononitrate ER (IMDUR) 30 mg 24 hr tablet Take 30 mg by mouth once daily. - ubidecarenone Q-10 (COENZYME Q-10) 10 mg cap Take by mouth twice daily. - carvedilol (COREG) 3.125 mg tablet Take 3.125 mg by mouth twice daily with meals. - Cyanocobalamin 2,500 mcg subl Dissolve under the tongue. - pravastatin (PRAVACHOL) 40 mg tablet Take 40 mg by mouth once daily. - aspirin, enteric coated (ASPIRIN, ENTERIC COATED) 81 mg EC tablet Take 81 mg by mouth once daily. - clopidogrel (PLAVIX) 75 mg tablet Take 75 mg by mouth once daily. - losartan 50 mg tablet Take 50 mg by mouth once daily. - metFORMIN 1,000 mg tablet Take 1,000 mg by mouth twice daily with meals. - montelukast (SINGULAIR) 10 mg tablet Take 10 mg by mouth daily at bedtime. - sitaGLIPtin (JANUVIA) 100 mg tablet Take 100 mg by mouth once daily. - fluticasone (FLONASE) 50 mcg/actuation nasal spray Use 1 [place] in each nostril once daily. - mometasone-formoterol (DULERA) 200-5 mcg/actuation inhaler Inhale as instructed two times a day. - econazole 1 % TOPICAL cream Apply to affected area once daily. - ALPRAZolam 0.25 mg ORAL tablet Take 0.25 mg by mouth at bedtime as needed. - busPIRone (BUSPAR) 10 mg tablet Take 10 mg by mouth four times daily as needed. - pramipexole (MIRAPEX) 1 mg tablet Take 1 mg by mouth twice daily. - metoprolol succinate XL (TOPROL XL) 25 mg ORAL 24 hr tablet Take 25 mg by mouth once daily. - ALBUTEROL SULFATE (PROVENTIL HFA INHALATION) Inhale as instructed. - diphenoxylate-atropine (LOMOTIL) 2.5-0.025 mg per tablet Take 1 tablet by mouth four times a day as needed. - azelastine (ASTELIN, ASTEPRO) 0.1% nasal spray Use 1 [place] in the nose two times a day. Use in each nostril as directed - econazole (SPECTAZOLE) 1 % cream Apply to affected area once (more content not included)... Normal [facility] 12 Lead EKGon 11-07-2024 12 Lead EKG [facility] Cardiovascular Services [address] [place] [address] 12 Lead EKG 11/07/24 0416 MR#: [id number] Acct: [id number] Name: BLANCA GILL Rep #: [id number] : 1950 74 From: Goyo Burleson MD Attending Dr: Status: DEP ER Ordering Dr: Gabe Fragoso DO Date: 11/07/24 Location: ED Sex: M C Admitted: Test Reason : CP Blood Pressure : */* mmHG Vent. Rate : 83 BPM Atrial Rate : 83 BPM P-R Int : 198 ms QRS Dur : 130 ms QT Int : 382 ms P-R-T Axes : 61 -51 28 degrees QTcB Int : 448 ms Normal sinus rhythm Left anterior fascicular block Right bundle branch block Cannot rule out Septal infarct , age undetermined Abnormal ECG Confirmed by Goyo Burleson ([id number]), social media editor MARGARITA TEMPLE ([id number]) on 11/09/2024 7:58:15 AM Referred By: CLINTON Confirmed By: Goyo Burleson 11/09/24 0758 Date Goyo Burleson MD CC: Dr. Maya Pradhan DO; Dr. Gabe Fragoso DO Signed Normal [facility] Absolute lymphocyte countOrd ered By: Gabe Fragoso on 11-07-2024 Lymphocytes Auto (Unsp spec) [#/Vol] 1.53 10*3/uL 0.83-4.51 [facility] Absolute neutrophil countOrd ered By: Gabe Fragoso on 11-07-2024 Neutrophils (Bld) [#/Vol] 4.8 10*3/uL 2.0-7.7 [facility] Automated lymphocyte count a s percentage of total leukocytesOrdered By: Gabe Fragoso on 11-07-2024 Lymphocytes/100 WBC Auto (Unsp spec) 20.2 % 19-41 [facility] Basic Metabolic Profile (BMP )on 11-07-2024 BUN/CRE 15.8 RATIO Normal 10-20 [facility] Comment on above: Performed By: #### L 100.0100, L500.2500, L501.5425 #### [facility] [address] [place], [address] CA,Total 9.0 mg/dL Normal 8.5-10.1 [facility] Comment on above: Performed By: #### L 100.0100, L500.2500, L501.5425 #### [facility] [address] [place], [address] Chloride [Moles/Vol] 97 mmol/L Low 98-107 [facility] Comment on above: Performed By: #### L 100.0100, L500.2500, L501.5425 #### [facility] [address] [place], [address] CO2 [Moles/Vol] 32.0 mmol/L Normal 21.0-32.0 [facility] Comment on above: Performed By: #### L 100.0100, L500.2500, L501.5425 #### [facility] [address] [place], [address] Creatinine [Mass/Vol] 0.95 mg/dL Normal 0.70-1.30 [facility] Comment on above: Result Comment: The validity of the calculated GFR GFRAA in patients over 70 years has not been determined. Clinical correlation is essential. Performed By: #### L 100.0100, L500.2500, L501.5425 #### [facility] [address] [place], [address] ECRCL 86.00 ml/min Normal [facility] Comment on above: Performed By: #### L 100.0100, L500.2500, L501.5425 #### [facility] [address] [place], [address] EST GFR - AA 100 mL/min Normal >60 [facility] Comment on above: Result Comment: Afri can French GFR Calc Performed By: #### L 100.0100, L500.2500, L501.5425 #### [facility] [address] [place], [address] GAP 5 Normal 5-15 [facility] Comment on above: Performed By: #### L 100.0100, L500.2500, L501.5425 #### [facility] [address] [place], [address] GFR/1.73 sq M.predicted among non-blacks MDRD (S/P/Bld) [Vol rate/Area] 83 mL/min/{1.73_m2} Normal >60 [facility] Comment on above: Result Comment: Non- GFR Calc Performed By: #### L 100.0100, L500.2500, L501.5425 #### [facility] [address] [place], [address] Glucose [Mass/Vol] 193 mg/dL High 74-106 [facility] Comment on above: Result Comment: Fast ing Glucose result greater than or equal to 126 mg/dL suggests DIABETES MELLITUS per A.D.A. criteria. Performed By: #### L 100.0100, L500.2500, L501.5425 #### [facility] [address] [place], [address] Potassium [Moles/Vol] 4.2 mmol/L Normal 3.5-5.1 [facility] Comment on above: Performed By: #### L 100.0100, L500.2500, L501.5425 #### [facility] [address] [place], [address] Sodium [Moles/Vol] 134 mmol/L Low 136-145 [facility] Comment on above: Performed By: #### L 100.0100, L500.2500, L501.5425 #### [facility] [address] [place], [address] Urea nitrogen [Mass/Vol] 15 mg/dL Normal 7-18 [facility] Comment on above: Performed By: #### L 100.0100, L500.2500, L501.5425 #### [facility] [address] [place], [address] Basophil percentageOrdered B y: Gabe Fragoso on 11-07-2024 Basophils/100 WBC (Bld) 0.5 % 0-1 [facility] Blood urea nitrogen (BUN)/cr eatinine ratioOrdered By: Gabe Fragoso on 11-07-2024 Urea nitrogen/Creatinine [Mass ratio] 15.8 mg/mg 10-20 [facility] CBC W/Diff, Automatedon 10-16 Absolute Lymph 1.53 X10 3/uL Normal 0.83-4.51 [facility] Comment on above: Performed By: #### L 100.0100, L500.2500, L501.5425 #### [facility] [address] [place], [address] Absolute Neut 4.8 X10 3/uL Normal 2.0-7.7 [facility] Comment on above: Performed By: #### L 100.0100, L500.2500, L501.5425 #### [facility] [address] [place], [address] Basophils/100 WBC (Bld) 0.5 % Normal 0-1 [facility] Comment on above: Performed By: #### L 100.0100, L500.2500, L501.5425 #### [facility] [address] [place], [address] Eosinophils/100 WBC (Bld) 1.7 % Normal 0-5 [facility] Comment on above: Performed By: #### L 100.0100, L500.2500, L501.5425 #### [facility] [address] [place], [address] Erythrocyte distribution width (RBC) [Ratio] 16.7 % High 11.6-14.6 [facility] Comment on above: Performed By: #### L 100.0100, L500.2500, L501.5425 #### [facility] [address] [place], [address] Hematocrit (Bld) [Volume fraction] 36.8 % Low 40-54 [facility] Comment on above: Performed By: #### L 100.0100, L500.2500, L501.5425 #### [facility] [address] [place], [address] Hemoglobin (Bld) [Mass/Vol] 10.8 g/dL Low 13.0-16.5 [facility] Comment on above: Performed By: #### L 100.0100, L500.2500, L501.5425 #### [facility] [address] [place], [address] IG% 0.400 Normal 0.0-0.9 [facility] Comment on above: Result Comment: IG% - Immature Granulocytes (promyelocytes, myelocytes and metamyelocytes) > 1% indicates that a LEFT SHIFT is Present. Performed By: #### L 100.0100, L500.2500, L501.5425 #### [facility] [address] [place], [address] Lymphocytes/100 WBC (Bld) 20.2 % Normal 19-41 [facility] Comment on above: Performed By: #### L 100.0100, L500.2500, L501.5425 #### [facility] [address] [place], [address] MCH (RBC) [Entitic mass] 23.4 pg Low 27.0-32.0 [facility] Comment on above: Performed By: #### L 100.0100, L500.2500, L501.5425 #### [facility] [address] [place], [address] MCHC (RBC) [Mass/Vol] 29.3 g/dL Low 32-36 [facility] Comment on above: Performed By: #### L 100.0100, L500.2500, L501.5425 #### [facility] [address] [place], [address] MCV (RBC) [Entitic vol] 79.7 fL Low 80-94 [facility] Comment on above: Performed By: #### L 100.0100, L500.2500, L501.5425 #### [facility] [address] [place], [address] Monocytes/100 WBC (Bld) 14.0 % High 0-10 [facility] Comment on above: Performed By: #### L 100.0100, L500.2500, L501.5425 #### [facility] [address] [place], [address] Neutrophils/100 WBC (Bld) 63.2 % Normal 47-70 [facility] Comment on above: Performed By: #### L 100.0100, L500.2500, L501.5425 #### [facility] [address] [place], [address] Nucleated RBC (Bld) [#/Vol] 0 10*3/uL Normal 0-5 [facility] Comment on above: Performed By: #### L 100.0100, L500.2500, L501.5425 #### [facility] [address] [place], [address] Platelet mean volume (Bld) [Entitic vol] 10.1 fL Normal 6.2-12.0 [facility] Comment on above: Performed By: #### L 100.0100, L500.2500, L501.5425 #### [facility] [address] [place], [address] Platelets (Bld) [#/Vol] 286 10*3/uL Normal 150-450 [facility] Comment on above: Performed By: #### L 100.0100, L500.2500, L501.5425 #### [facility] [address] [place], [address] RBC (Bld) [#/Vol] 4.62 10*6/uL Normal 4.6-6.2 [facility] Comment on above: Performed By: #### L 100.0100, L500.2500, L501.5425 #### [facility] [address] [place], [address] RDW SD 47.5 fl High 35.1-43.9 [facility] Comment on above: Performed By: #### L 100.0100, L500.2500, L501.5425 #### [facility] [address] [place], [address] WBC (Bld) [#/Vol] 7.6 10*3/uL Normal 4.4-11.0 [facility] Comment on above: Performed By: #### L 100.0100, L500.2500, L501.5425 #### [facility] [address] [place], [address] Carbon dioxide measurementOr dered By: Gabe Cueto 11-07-2024 CO2 [Moles/Vol] 32.0 mmol/L 21.0-32.0 [facility] Chest PA and Lateralon 11-07 Chest PA and Lateral [facility] Imaging Services [address] [place] [address] Chest PA and Lateral MR#: [id number] Acct: [id number] Name: BLANCA GILL Rep #: [id number] : 1950 M 74 From: Alfonso Adan MD PCP: Dr. Maya Pradhan DO Status: REG ER Study: Chest PA and Lateral Date of Exam: 11/07/24 Exam# [id number] Ordering Dr: Gabe Fragoso DO PROCEDURE: CHEST PA AND LATERAL REASON FOR EXAM: Chest pain TECHNIQUE: Frontal and lateral views of the chest. COMPARISON: 05/15/2024 FINDINGS: The lungs appear clear. Pulmonary vascularity appears within limits. No pleural effusion. The cardiac and mediastinal contours appear within limits. Visualized osseous structures appear within limits. RAD/Chest PA and Lateral IMPRESSION: No evidence of acute disease. Reading Location: [id number] CC: Dr. Maya Pradhan DO; Dr. Gabe Fragoso DO Distribution Dispatcher: Signed Normal [facility] Chloride measurementOrdered By: Gabe Fragoso on 11-07-2024 Chloride [Moles/Vol] 97 mmol/L Low 98-107 [facility] Emergency Department Summary on 11-07-2024 Emergency Department Summary [facility] Medical Records Department [address] [place] [address] Emergency Department Summary 11/07/24 MR#: [id number] Acct: [id number] Name: BLANCA GILL Rep #: [id number] : 1950 74 From: Gabe Ivey PCP: Dr. Maya Pradhan DO Status:DEP ER Location: ED HPI History of Present Illness Chief Complaint: Chest Pain Informant: patient and family Narrative Narrative: Patient presenting with granddaughter for evaluation mild chest discomfort few hours prior to arrival. However last 40 hours had been having increasing anxiety and being restless. He is on Ativan written by his PCP of 0.25 mg he typically only takes half a tab. He lost his bowels 1 to 2 years ago states he was only using it less frequently every now and then. He states over the last week has had increasing uses. He states more stressed with a home he is deciding whether or not he wants to keep the home at this time. He denies suicidal homicidal ideations. Denies any auditory or visual hallucinations. Over last 48 hours he has been taking more of the Ativan and unable to sleep. With the chest discomfort tonight he can get evaluated. He has had 3 stents in the past. Hypertension, hyperlipidemia, denies diabetes. COPD chronic 2.5 L oxygen. Intermittent dry cough since July. No fevers no chills no myalgias. Prior Similar Symptoms: Yes, With Prior MS, With Prior Angina and With Prior PE CVD Risk Factors: Positive for Hypertension and Hypercholesterolemia; Negative for Diabetes or Family History 1 [facility] Medical History Swelling of left lower extremity KRISTI (obstructive sleep apnea) BPH (benign prostatic hyperplasia) Venous ulcer of left leg Venous hypertension, chronic, with ulcer and inflammation Chronic venous insufficiency 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-39.9) Acute respiratory failure with hypoxia and hypercarbia Fracture, thoracic vertebra Tinea cruris History of chronic CHF Varicose veins of both legs with edema Lower extremity edema 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 disease Carotid bruit Neck pain Shortness of breath Abnormal nuclear stress test Essential hypertension Inappropriate sexual behavior Hypomagnesemia Muscle cramps Edema Chronic diastolic (congestive) heart failure Atherosclerotic heart disease of [place] coronary artery without angina pectoris History of ST elevation myocardial infarction (STEMI) (07/11/17) Asthma IBS (irritable bowel syndrome) 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.9) Restless legs Hyperlipidemia Diabetes mellitus, type 2 Anxiety Home Medications ???Medication ???Instructions ???Recorded ???Last Taken ???Type metformin 1,000 mg tablet 1,000 mg PO BIDCM diabetes 6 01/25/24 History montelukast 10 mg tablet 10 mg PO QHS allergies 01/17/16 History acetaminophen 325 mg tablet 325 - 650 mg (1 - 2 x 325 mg) PO 1 Unknown Rx Q6H PRN PRN Pain aspirin 81 mg tablet,delayed 81 mg PO DAILY@0800 #30 tabs 07/1401/26/24 Rx release pramipexole 1 mg tablet 2 mg PO QHS headache 05/07/18 03/2 04/01 21:00 History coenzyme Q10 100 mg capsule 100 mg PO DAILY supplement 9 12/04/18 History magnesium oxide 400 mg PO DAILY supplement 9 12/08/18 08:00 History fluticasone propionate 50 1 spray intranasal DAILY PRN nasal 04/05/20 Unknown History mcg/actuation nasal spray spray,suspension nitroglycerin 0.4 mg sublingual 0.4 mg sublingual Q5M PRN Angina 0 11/29/21 Unknown Rx tablet pain #25 tabs vitamin B complex 1 tab PO DAILY 03/14/22 Unknown Hi story isosorbide mononitrate 30 mg 30 mg PO DAILY #90 tabs 07/05/23 U nknown Rx tablet,extended release 24 hr buspirone 10 mg tablet 20 mg PO BID Anxiety 08/20/23 Unkn own History albuterol sulfate 90 mcg/actuation 2 puff inhalation Q4H PRN Unknown Rx aerosol inhaler (Ventolin HFA) shortness of breath or wheezing #18 grams clotrimazole-betamethaso ne 1 1 applic topical BID 4 weeks #45 0 11/17/23 Unknown Rx %-0.05 % topical cream grams carvedilol 25 mg tablet 25 mg PO BID #180 tabs 12/07/23 Un known Rx cholecalciferol (vitamin D3) 50 2,000 unit PO DAILY supplement Unknown History mcg (2,000 unit) capsule glyburide 1.25 mg tablet 1.25 mg PO BID 12/07/23 01/25/24 H istory omeprazole 40 mg capsule,delayed 40 mg PO BID 12/07/23 Unknown Hist ory release alprazolam 0.25 mg tablet 0.25 mg PO DAILY PRN anxiety 2 01/05 Unknown Rx days #7 tabs insulin NPH isoph U-100 human 100 See Rx Instructions .Route Unknown Rx unit/mL subcutaneous suspension .COMPLEX diabetes 3 days #0 mL insulin lispro 100 unit/mL See Protocol subcut ACHS #0 mL 01/05 Unknown Rx subcutaneous pen (Humalog KwikPen (U-100) Insulin) tamsulosin 0.4 mg capsule 0.4 mg PO DAILY@1700 #0 ca (more content not included)... Normal [facility] Eosinophil percentageOrdered By: Gabe Fragoso on 11-07-2024 Eosinophils/100 WBC (Bld) 1.7 % 0-5 [facility] Erythrocyte distribution wid th ratioOrdered By: Gabe Fragoso on 11-07-2024 Erythrocyte distribution width (RBC) [Ratio] 16.7 % High 11.6-14.6 [facility] Erythrocyte distribution wid th standard deviationOrdered By: Gabe Clinton on 11-07-2024 Erythrocyte distribution width (RBC) [Ratio] 47.5 fl High 35.1-43.9 [facility] Glomerular filtration rate ( GFR) estimationOrdered By: Gabe Fragoso on 11-07-2024 GFR/1.73 sq M.predicted among non-blacks MDRD (S/P/Bld) [Vol rate/Area] 83 mL/min/{1.73_m2} >60 [facility] Comment on above: Non- GFR Calc Glucose measurementOrdered B y: Gabe Fragoso on 11-07-2024 Glucose [Mass/Vol] 193 mg/dL High 74-106 [facility] Comment on above: Fasting Glucose resu lt greater than or equal to 126 mg/dL suggests DIABETES MELLITUS per A.D.A. criteria. Hematocrit Auto (Bld) [Volum e fraction]Ordered By: Gabe Fragoso on 11-07-2024 Hematocrit (Bld) [Volume fraction] 36.8 % Low 40-54 [facility] Hemoglobin measurementOrdere d By: Gabe Fragoso on 11-07-2024 Hemoglobin (Bld) [Mass/Vol] 10.8 g/dL Low 13.0-16.5 [facility] Immature granulocytes/100 WB C Auto (Bld)Ordered By: Gabe Fragoso on 11-07-2024 Immature granulocytes/100 WBC (Bld) 0.400 % 0.0-0.9 [facility] Comment on above: IG% - Immature Granu locytes (promyelocytes, myelocytes and metamyelocytes) > 1% indicates that a LEFT SHIFT is Present. L501.4020on 11-07-2024 TROPONIN-I HS 7 pg/mL Normal 3.0-78.0 [facility] Comment on above: Result Comment: Plea se Note: New Test Units and Gender Specific Reference Ranges. For more information see Policy Stat Procedure [place] High Sensitivity Troponin (TNIH) and attachments. Performed By: #### L 501.080 #### [facility] [address] [place], [address] L501.5425on 11-07-2024 TROPONIN-I HS 7 pg/mL Normal 3.0-78.0 [facility] Comment on above: Order Comment: 1 Y Result Comment: Plea se Note: New Test Units and Gender Specific Reference Ranges. For more information see Policy Stat Procedure [place] High Sensitivity Troponin (TNIH) and attachments. Performed By: #### L 100.0100, L500.2500, L501.5425 #### [facility] [address] [place], [address] MCV (mean corpuscular volume ) determinationOrdered By: Gabe Fragoso on 11-07-2024 MCV (RBC) [Entitic vol] 79.7 fL Low 80-94 [facility] Mean corpuscular hemoglobin (MCH) determinationOrdered By: Gabe Fragoso on 11-07-2024 MCH (RBC) [Entitic mass] 23.4 pg Low 27.0-32.0 [facility] Mean corpuscular hemoglobin concentration (MCHC) determinationOrdered By: Gabe Fragoso on 11-07-2024 MCHC (RBC) [Mass/Vol] 29.3 g/dL Low 32-36 [facility] Mean platelet volume determi nationOrdered By: Gabe Fragoso on 11-07-2024 Platelet mean volume (Bld) [Entitic vol] 10.1 fL 6.2-12.0 [facility] Monocyte percentageOrdered B y: Gabe Fragoso on 11-07-2024 Monocytes/100 WBC (Bld) 14.0 % High 0-10 [facility] Neutrophil percentageOrdered By: Gabe Fragoso on 11-07-2024 Neutrophils/100 WBC (Bld) 63.2 % 47-70 [facility] Nucleated red blood cell per centageOrdered By: Gabe Fragoso on 11-07-2024 Nucleated RBC/100 WBC (Bld) [Ratio] 0 % 0-5 [facility] Platelet countOrdered By: Ba livingston Clinton on 11-07-2024 Platelets (Bld) [#/Vol] 286 10*3/uL 150-450 [facility] Potassium measurementOrdered By: Gabe Fragoso on 11-07-2024 Potassium [Moles/Vol] 4.2 mmol/L 3.5-5.1 [facility] RBC Auto (Bld) [#/Vol]Ordere d By: Gabe Fragoso on 11-07-2024 RBC (Bld) [#/Vol] 4.62 10*6/uL 4.6-6.2 [facility] Serum anion gap measurementO rdered By: Gabe Fragoso on 11-07-2024 Anion gap [Moles/Vol] 5 mmol/L 5-15 [facility] Serum or plasma calcium ale urement (mass/volume)Ordered By: Gabe Fragoso on 11-07-2024 Calcium [Mass/Vol] 9.0 mg/dL 8.5-10.1 [facility] Serum or plasma creatinine m easurement (mass/volume)Ordered By: Gabe Fragoso on 11-07-2024 Creatinine [Mass/Vol] 0.95 mg/dL 0.70-1.30 [facility] Comment on above: The validity of the calculated GFR & GFRAA in patients over 70 years has not been determined. Clinical correlation is essential. Serum or plasma urea nitroge n measurement (mass/volume)Ordered By: Gabe Fragoso on 11-07-2024 Urea nitrogen [Mass/Vol] 15 mg/dL 7-18 [facility] Sodium levelOrdered By: Gabe Fragoso on 11-07-2024 Sodium [Moles/Vol] 134 mmol/L Low 136-145 [facility] Troponin IOrdered By: Gabe houston on 11-07-2024 Troponin I 7 pg/mL 3.0-78.0 [facility] Comment on above: Please Note: [place] t Units and Gender Specific Reference Ranges. For more information see Policy Stat Procedure [place] High Sensitivity Troponin (TNIH) and attachments. White blood cell (WBC) count Ordered By: Gabe Fragoso on 11-07-2024 WBC (Bld) [#/Vol] 7.6 10*3/uL 4.4-11.0 [facility] MR/BMS.BVSon 11-04-2024 MR/BMS.BVS [facility] [address] [place] [address] OFFICE VISIT Date of Service: 11/04/24 MR#: [id number] Acct: [id number] Name: BLANCA GILL Rep #: [id number] : 1950 Provider: RADHA Ibrahim Age/Sex: 74/M [place] [facility] [place]: Signed Intake Vital Signs 10/09/24 12:29 11/04/24 14:11 Height 5 ft 8 in BP 115/60 Blood Pressure Location Lt radial Position Sitting Respiration 18 Pulse 83 Pulse Source Monitor Temp 98.4 F Temp Source Temporal Pulse Oximetry (%) 91 Oxygen Delivery Method room air Intake Visit Reasons: Recurring Wounds, blister Is patient in pain?: Yes Allergies Penicillins Allergy (Severe, Verified 11/07/24 04:02) Anaphylaxis quinine sulfate (From Quine) Allergy (Severe, Verified 11/07/24 04:02) passed out benzocaine (From Cetacaine) Allergy (Verified 11/07/24 04:02) Swelling butamben (From Cetacaine) Allergy (Verified 11/07/24 04:02) Swelling ciprofloxacin HCl (From Cipro) Allergy (Verified 11/07/24 04:02) Hives clarithromycin (From Biaxin) Allergy (Verified 11/07/24 04:02) Swelling exenatide (From Byetta) Allergy (Verified 11/07/24 04:02) Rash folic acid (From Proferrin-Forte) Allergy (Verified 11/07/24 04:02) Rash hyoscyamine sulfate (From Levsin) Allergy (Verified 11/07/24 04:02) Rash iron heme polypeptide (From Proferrin-Forte) Allergy (Verified 11/07/24 04:02) tongue swelling naproxen (From Naprosyn) Allergy (Verified 11/07/24 04:02) Rash tetracaine (From Cetacaine) Allergy (Verified 11/07/24 04:02) throat swelled shut venlafaxine HCl (From Effexor) Allergy (Verified 11/07/24 04:02) tongue swelling ezetimibe (From Zetia) Adverse Reaction (Severe, Verified 11/07/24 04:02) Myalgias, diarrhea mold Adverse Reaction (Severe, Verified 11/07/24 04:02) PT UNSURE OF REACTION niacin (From Niaspan Extended-Release) Adverse Reaction (Severe, Verified 11/07/24 04:02) PT UNSURE OF REACTION procainamide Adverse Reaction (Severe, Verified 11/07/24 04:02) Anaphylactic/Resp. Distress atorvastatin calcium (From Lipitor) Adverse Reaction (Intermediate, Verified 11/07/24 04:02) Mylagias levofloxacin Adverse Reaction (Intermediate, Verified 11/07/24 04:02) Nausea and vomiting rosuvastatin calcium (From Crestor) Adverse Reaction (Intermediate, Verified 11/07/24 04:02) Myalgias diphenhydramine HCl (From Benadryl) Adverse Reaction (Verified 11/07/24 04:02) Restlessness Medications ???Medication ???Instructions ???Recorded ???Confirmed ???Type metformin 1,000 mg tablet 1,000 mg PO BIDCM diabetes 6 11/07/24 History montelukast 10 mg tablet 10 mg PO QHS allergies 01/17/16 History acetaminophen 325 mg tablet 325 - 650 mg (1 - 2 x 325 mg) PO 1 11/07/24 Rx Q6H PRN PRN Pain aspirin 81 mg tablet,delayed 81 mg PO DAILY@0800 #30 tabs 07/1411/07/24 Rx release pramipexole 1 mg tablet 2 mg PO QHS headache 05/07/1810/16 History coenzyme Q10 100 mg capsule 100 mg PO DAILY supplement 9 11/07/24 History magnesium oxide 400 mg PO DAILY supplement 9 11/07/24 History fluticasone propionate 50 1 spray intranasal DAILY PRN nasal 04/05/20 11/07/24 History mcg/actuation nasal spray spray,suspension nitroglycerin 0.4 mg sublingual 0.4 mg sublingual Q5M PRN Angina 0 11/29/21 11/07/24 Rx tablet pain #25 tabs vitamin B complex 1 tab PO DAILY 03/14/22 11/07/24 H istory isosorbide mononitrate 30 mg 30 mg PO DAILY #90 tabs 07/05/23 0 11/07/24 Rx tablet,extended release 24 hr buspirone 10 mg tablet 20 mg PO BID Anxiety 08/20/2310/16 History albuterol sulfate 90 mcg/actuation 2 puff inhalation Q4H PRN 11/07/24 Rx aerosol inhaler (Ventolin HFA) shortness of breath or wheezing #18 grams clotrimazole-betamethaso ne 1 1 applic topical BID 4 weeks #45 0 11/17/23 11/07/24 Rx %-0.05 % topical cream grams carvedilol 25 mg tablet 25 mg PO BID #180 tabs 12/07/23 Rx cholecalciferol (vitamin D3) 50 2,000 unit PO DAILY supplement 11/07/24 History mcg (2,000 unit) capsule glyburide 1.25 mg tablet 1.25 mg PO BID 12/07/23 11/04/24 H istory omeprazole 40 mg capsule,delayed 40 mg PO BID 12/07/23 11/07/24 His tory release alprazolam 0.25 mg tablet 0.25 mg PO DAILY PRN anxiety 2 01/0511/07/24 Rx days #7 tabs insulin NPH isoph U-100 human 100 See Rx Instructions .Route 11/07/24 Rx unit/mL subcutaneous suspension .COMPLEX diabetes 3 days #0 mL insulin lispro 100 unit/mL See Protocol subcut ACHS #0 mL 01/0511/07/24 Rx subcutaneous pen (Humalog KwikPen (U-100) Insulin) tamsulosin 0.4 mg capsule 0.4 mg PO DAILY@1700 #0 caps 05/1811/07/24 Rx dapagliflozin propanediol 10 mg 10 mg P (more content not included)... Normal [facility] Lower Ext/No Jt/w/oon 2024 Lower Ext/No Jt/w/o [facility] Imaging Services [address] [place], [place] [id number] Lower Ext/No Jt/w/o MR#: [id number] Acct: [id number] Name: BLANCA GILL Rep #: [id number] : 1950 M 74 From: Jonathan Jacobsen i, DO PCP: Dr. Maya Pradhan DO Status: REG CLI Study: Lower Ext/No Jt/w/o Date of Exam: 10/31/24 Exam# [id number] Ordering Dr: Ricardo Jones DPM PROCEDURE: Noncontrast MRI of the right foot. REASON FOR EXAM: Right foot cellulitis. Nail puncture. TECHNIQUE: Multiplanar, multisequence MRI images of the right foot were obtained without IV contrast. COMPARISON: None available FINDINGS The included distal right tibia/fibula, talus, calcaneus, tarsal bones, and metatarsals are intact. Fat signal is maintained in the sinus tarsi. There are [id number] degenerative changes of the tarsal bones and tarsal/metatarsal joints. The plantar fascia appears intact. The nonweightbearing alignment of the tarsal bones is maintained. No evidence of Lisfranc fracture dislocation. There are mild degenerative changes of the interphalangeal and MTP joints. The major flexor and extensor tendons are intact. Diffuse edema of the soft tissues and subcutaneous fat of the right foot, without discrete drainable fluid collection or soft tissue mass on the provided noncontrast images. No evidence of marrow edema or bony destructive process to strongly suggest osteomyelitis on this noncontrast study. MRI/Lower Ext/No Jt/w/o IMPRESSION: Diffuse induration/swelling of the soft tissues of the right foot, suggestive of cellulitis. No definite discrete drainable fluid collection or evidence of osteomyelitis on the provided noncontrast images. Degenerative changes as above, favored to be due to osteoarthritis. The major flexor and extensor tendons appear intact. Reading Location: [facility] CC: DAMON Jones; Dr. Maya Pradhan DO Distribution Dispatcher: Signed Normal [facility] Basic Metabolic Profile (BMP )on 10-11-2024 BUN/CRE 13.2 RATIO Normal 10-20 [facility] Comment on above: Performed By: #### L 500.4050, L503.6620 #### [facility] [address] [place], [address] CA,Total 9.2 mg/dL Normal 8.5-10.1 [facility] Comment on above: Performed By: #### L 500.4050, L503.6620 #### [facility] [address] [place], [address] Chloride [Moles/Vol] 97 mmol/L Low 98-107 [facility] Comment on above: Performed By: #### L 500.4050, L503.6620 #### [facility] [address] [place], [address] CO2 [Moles/Vol] 35.0 mmol/L High 21.0-32.0 [facility] Comment on above: Performed By: #### L 500.4050, L503.6620 #### [facility] [address] [place], [address] Creatinine [Mass/Vol] 1.21 mg/dL Normal 0.70-1.30 [facility] Comment on above: Result Comment: The validity of the calculated GFR GFRAA in patients over 70 years has not been determined. Clinical correlation is essential. Performed By: #### L 500.4050, L503.6620 #### [facility] [address] [place], [address] EST GFR - AA 76 mL/min Normal >60 [facility] Comment on above: Result Comment: Afri can French GFR Calc Performed By: #### L 500.4050, L503.6620 #### [facility] [address] [place], [address] GAP 5 Normal 5-15 [facility] Comment on above: Performed By: #### L 500.4050, L503.6620 #### [facility] [address] [place], [address] GFR/1.73 sq M.predicted among non-blacks MDRD (S/P/Bld) [Vol rate/Area] 63 mL/min/{1.73_m2} Normal >60 [facility] Comment on above: Result Comment: Non- GFR Calc Performed By: #### L 500.4050, L503.6620 #### [facility] [address] [place], [address] Glucose [Mass/Vol] 297 mg/dL High 74-106 [facility] Comment on above: Result Comment: Gluc ose result greater than or equal to 200 mg/dL suggests DIABETES MELLITUS per A.D.A. criteria. Performed By: #### L 500.4050, L503.6620 #### [facility] [address] [place], [address] Potassium [Moles/Vol] 4.1 mmol/L Normal 3.5-5.1 [facility] Comment on above: Performed By: #### L 500.4050, L503.6620 #### [facility] [address] [place], [address] Sodium [Moles/Vol] 136 mmol/L Normal 136-145 [facility] Comment on above: Performed By: #### L 500.4050, L503.6620 #### [facility] [address] [place], [address] Urea nitrogen [Mass/Vol] 16 mg/dL Normal 7-18 [facility] Comment on above: Performed By: #### L 500.4050, L503.6620 #### [facility] [address] [place], [address] Bedside Glucoseon 10-09-2024 FINGERSTICK GLU 145 mg/dL High 74-106 [facility] Comment on above: Result Comment: BLAYNE CAICEDO OF PATIENT CARE PER NURSING PROTOCOL Performed By: #### L 501.080 #### [facility] [address] [place], [address] Emergency Department Summary on 10-09-2024 Emergency Department Summary [facility] Medical Records Department [address] [place] [address] Emergency Department Summary 10/09/24 MR#: [id number] Acct: [id number] Name: BLANCA GILL Rep #: [id number] : 1950 74 From: Anuel Colon DO PCP: Dr. Maya Pradhan, DO Status:DEP ER Location: ED HPI History of Present Illness Chief Complaint: Foreign Body Narrative Narrative: Chief complaint and HPI: Nail puncture. 74-year-old male with past medical history of diabetes, chronic hypoxic respiratory failure, HTN, HLD, HFpEF presents for evaluation of nail puncture. Patient states that he went outside to urinate when he accidentally stepped on a wooden board with brenna nails. One of the nails went into his right shoe and foot. EMS was called and patient brought to the emergency department. Unknown last tetanus but thinks it was likely 8 years ago. Review of systems: See HPI Medications: As listed on the chart Allergies: As listed on the chart PFSH: Per chart Vital signs: As listed on the chart. Reviewed. Physical exam: Gen: A O x3, NAD Head: Normocephalic, atraumatic Eyes: No sclera icterus, conjunctiva clear ENT: Moist mucous membranes CV: Regular rate Resp: Nonlabored respiration, on baseline 2 L nasal cannula Musc: Patient has a small wooden board attached to his right shoe with a nail sticking out from the board into his shoe/foot. After nail was removed, shoe was taken off. Patient has a small puncture wound to the plantar surface of the proximal foot. No deformity. No erythema or purulence. Mildly tender to palpation. DP/PT pulses +2. Sensation intact. Good capillary refill. Compartments soft. Neuro: Alert, oriented, grossly intact, sensation intact Psych: Cooperative, appropriate mood and affect [facility] Medical History Swelling of left lower extremity KRISTI (obstructive sleep apnea) BPH (benign prostatic hyperplasia) Venous ulcer of left leg Venous hypertension, chronic, with ulcer and inflammation Chronic venous insufficiency 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-39.9) Acute respiratory failure with hypoxia and hypercarbia Fracture, thoracic vertebra Tinea cruris History of chronic CHF Varicose veins of both legs with edema Lower extremity edema 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 disease Carotid bruit Neck pain Shortness of breath Abnormal nuclear stress test Essential hypertension Inappropriate sexual behavior Hypomagnesemia Muscle cramps Edema Chronic diastolic (congestive) heart failure Atherosclerotic heart disease of [place] coronary artery without angina pectoris History of ST elevation myocardial infarction (STEMI) (07/11/17) Asthma IBS (irritable bowel syndrome) 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.9) Restless legs Hyperlipidemia Diabetes mellitus, type 2 Anxiety Home Medications ???Medication ???Instructions ???Recorded ???Last Taken ???Type metformin 1,000 mg tablet 1,000 mg PO BIDCM diabetes 01/17/16 01/25/24 History montelukast 10 mg tablet 10 mg PO QHS allergies 01/17/16 12/07/18 History acetaminophen 325 mg tablet 325 - 650 mg (1 - 2 x 325 mg) PO 07/14/17 Unknown Rx Q6H PRN PRN Pain aspirin 81 mg tablet,delayed 81 mg PO DAILY@0800 #30 tabs 07/14/17 01/26/24 Rx release pramipexole 1 mg tablet 2 mg PO QHS headache 05/07/18 12/08/18 21:00 History coenzyme Q10 100 mg capsule 100 mg PO DAILY supplement 12/08/18 12/04/18 History magnesium oxide 400 mg PO DAILY supplement 12/08/18 12/08/18 08:00 History fluticasone propionate 50 1 spray intranasal DAILY PRN nasal 04/05/20 Unknown History mcg/actuation nasal spray spray,suspension nitroglycerin 0.4 mg sublingual 0.4 mg sublingual Q5M PRN Angina 11/29/21 Unknown Rx tablet pain #25 tabs vitamin B complex 1 tab PO DAILY 03/14/22 Unknown History isosorbide mononitrate 30 mg 30 mg PO DAILY #90 tabs 07/05/23 Unknown Rx tablet,extended release 24 hr buspirone 10 mg tablet 20 mg PO BID Anxiety 08/20/23 Unknown History albuterol sulfate 90 mcg/actuation 2 puff inhalation Q4H PRN 10/28/23 Unknown Rx aerosol inhaler (Ventolin HFA) shortness of breath or wheezing #18 grams clotrimazole-betamethaso ne 1 1 applic topical BID 4 weeks #45 11/17/23 Unknown Rx %-0.05 % topical cream grams carvedilol 25 mg tablet 25 mg PO BID #180 tabs 12/07/23 Unknown Rx cholecalciferol (vitamin D3) 50 2,000 unit PO DAILY supplement 12/07/23 Unknown History mcg (2,000 unit) capsule glyburide 1.25 mg tablet 1.25 mg PO BID 12/07/23 01/25/24 History omeprazole 40 mg capsule,delayed 40 mg PO BID 12/07/23 Unknown History release alprazolam 0.25 mg tablet 0.25 mg PO DAILY PRN anxiety 2 05/18/24 Unknown Rx days #7 tabs insulin NPH isoph U-100 human 100 See Rx Instructions .Route 05/18/24 Unknown Rx unit/mL subcutaneous suspension .COMPLEX diabetes 3 days # (more content not included)... Normal [facility] Foot min 3 Viewson 5 Foot min 3 Views [facility] Imaging Services [address] [place], [place] [address] Foot min 3 Views MR#: [id number] Acct: [id number] Name: BLANCA GILL Rep #: [id number] : 1950 M 74 From: Lloyd Jacinto PCP: Dr. Maya Pradhan DO Status: REG ER Study: Foot min 3 Views Date of Exam: 10/09/24 Exam# [id number] Ordering Dr: Anuel Colon DO [id number] EXAM: XR RIGHT FOOT COMPLETE, 3 OR MORE VIEWS CLINICAL INDICATION: Nail in foot TECHNIQUE: Frontal, lateral and oblique views of the right foot. COMPARISON: No relevant prior studies available. FINDINGS: BONES/JOINTS: Calcaneal spur. No acute fracture. No subluxation. Normal alignment. Preservation of the joint space. No sclerotic or destructive changes observed. SOFT TISSUES: Unremarkable. No soft tissue swelling or gas. No radiopaque foreign body. RAD/Foot min 3 Views IMPRESSION: No acute findings in the right foot. Electronically Signed: Lloyd Molina MD at 14:21 EST , CC: Dr. Anuel Colon DO; Dr. Maya Pradhan DO Distribution Dispatcher: Signed Normal [facility] 10-05-2024 CNPN Telephone (UROLWS) -------- BLANCA GILL ([id number]) 1950 M Date Time Provider Department 10/05/24 BRYON TURNER During your visit today, we recorded the following information about you: Anila Corrales LPN 10/05/2024 2:54 PM Signed Just an FYI patient called to schedule with urology but did tell me he used to see a Dr. Cedeno in [place] for Erectile dysfunction. He also has been having trouble with dry skin/bleeding under his foreskin (uncircumcised) which he will discuss when he is seen as well. ELIOT Ervin Kimberly, LPN 10/06/2024 10:44 AM Signed Called [facility]. Spoke with ELIOT Saez who will send records. States patient last seen with them over two years ago. Scanned docs from [facility] as well. ELIOT Figueroa Laurie, MA 10/07/2024 3:59 PM Signed Records received and scanned into [employer]. Marina Lopez MA Allergies As of Date: 10/05/2024 Noted Allergy Reaction ASPERGILLUS FUMIGATUS ALLERGENIC *12/18/2010 16 - Unknown BENADRYL (DIPHENHYDRAMINE HCL) 12/18/2010 14 - Other: See Comments Comments: agitation BIAXIN (CLARITHROMYCIN) 12/18/2010 7 - Swelling 12 - Shortness of Breath BYETTA (EXENATIDE) 10/14/2013 7 - Swelling 8 - GI Upset 14 - Other: See Comments Comments: aching in joints LEVSIN (HYOSCYAMINE SULFATE) 12/18/2010 16 - Unknown LIDOCAINE 10/14/2013 10 - Anaphylaxis NAPROSYN (NAPROXEN) 12/18/2010 7 - Swelling 9 - Itching PENICILLINS 12/18/2010 10 - Anaphylaxis QUININE HCL 12/18/2010 16 - Unknown Date Reviewed: 10/01/2024 Reviewed by: Altagracia Richards LPN - Fully Assessed Reason for Visit: Request Outside Medical Records [[id number]] Prescriptions as of 10/07/2024 - acetaminophen 325 mg cap Take by mouth as needed. - furosemide (LASIX) 40 mg/4 mL soln - 5-fluorouracil 2.5% acyclovir 5% diclofenac 1% salicylic acid 10% topical (CPD) Apply 0.25-0.5 g to affected area two times a day. - magnesium oxide (MAG-OX) 400 mg (241.3 mg magnesium) tablet Take 400 mg by mouth once daily. - nitroglycerin sublingual (NITROSTAT) 0.4 mg SL tablet Dissolve 0.4 mg under the tongue every 5 minutes as needed for chest pain. - Omeprazole-Sodium Bicarbonate 40-1,680 mg pack Take by mouth. - tamsulosin (FLOMAX) 0.4 mg Take 1 capsule by mouth two times a day. - ACCU-CHEK LINDSAY PLUS TEST STRP test strip - ACCU-CHEK GUIDE ME GLUCOSE MTR USE DIRECTED THREE TIMES DAILY - NOVOLIN N NPH U-100 INSULIN 100 unit/mL injection INJECT 40 UNITS SUBCUTANEOUSLY IN THE MORNING AND IN THE EVENING - isosorbide mononitrate ER (IMDUR) 30 mg 24 hr tablet Take 30 mg by mouth once daily. - ubidecarenone Q-10 (COENZYME Q-10) 10 mg cap Take by mouth twice daily. - carvedilol (COREG) 3.125 mg tablet Take 3.125 mg by mouth twice daily with meals. - Cyanocobalamin 2,500 mcg subl Dissolve under the tongue. - pravastatin (PRAVACHOL) 40 mg tablet Take 40 mg by mouth once daily. - aspirin, enteric coated (ASPIRIN, ENTERIC COATED) 81 mg EC tablet Take 81 mg by mouth once daily. - clopidogrel (PLAVIX) 75 mg tablet Take 75 mg by mouth once daily. - losartan 50 mg tablet Take 50 mg by mouth once daily. - metFORMIN 1,000 mg tablet Take 1,000 mg by mouth twice daily with meals. - montelukast (SINGULAIR) 10 mg tablet Take 10 mg by mouth daily at bedtime. - sitaGLIPtin (JANUVIA) 100 mg tablet Take 100 mg by mouth once daily. - fluticasone (FLONASE) 50 mcg/actuation nasal spray Use 1 [place] in each nostril once daily. - mometasone-formoterol (DULERA) 200-5 mcg/actuation inhaler Inhale as instructed two times a day. - econazole 1 % TOPICAL cream Apply to affected area once daily. - ALPRAZolam 0.25 mg ORAL tablet Take 0.25 mg by mouth at bedtime as needed. - busPIRone (BUSPAR) 10 mg tablet Take 10 mg by mouth four times daily as needed. - pramipexole (MIRAPEX) 1 mg tablet Take 1 mg by mouth twice daily. - metoprolol succinate XL (TOPROL XL) 25 mg ORAL 24 hr tablet Take 25 mg by mouth once daily. - ALBUTEROL SULFATE (PROVENTIL HFA INHALATION) Inhale as instructed. - diphenoxylate-atropine (LOMOTIL) 2.5-0.025 mg per tablet Take 1 tablet by mouth four times a day as needed. - azelastine (ASTELIN, ASTEPRO) 0.1% nasal spray Use 1 [place] in the nose two times a day. Use in each nostril as directed - econazole (SPECTAZOLE) 1 % cream Apply to affected area once daily. - glyBURIDE 2.5 mg ORAL tablet Take 2.5 mg by mouth daily with breakfast. - Pitavastatin (LIVALO) 2 mg ORAL Tab Take by mouth. Meds Comments as of 10/01/2024: 10/01/24 Denies any changes in medications in the last month. Margaret Lo RN Problem List As Of Date 10/05/2024 Noted Resolved Prostate disorder [N42.9] 10/14/2013 Combined forms of age-related cataract of right*06/21/2018 Combined forms of age-related cataract, left ey*06/21/2018 07/30/2018 Type 2 diabetes francine (more content not included)... Normal [facility] CNOVon 10-01-2024 CNOV Office Visit (UCWSTR ) -------- BLANCA GILL ([id number]) 1950 M Date Time Provider Department 10/01/24 3:00 PM RIA BRANCH [facility] During your visit today, we recorded the following information about you: Temperature Pulse Respiration Blood pressure 98.3 degrees 93/minute 20/minute 147/77 Weight 114 kg Ria Branch APRN.MANAGER [employer]AME 10/01/2024 3:47 PM Signed Subjective Wound Check Pertinent negatives include no chills, fever or rash. Blanca Gill is a 74 year old male who presents with concern about his foreskin. He states it itches and he can't see it to see if it is healing. He has been seen here 3 times in the past month for the same concern. Last visit was on 09/25 when he was told the skin/area was very much improved from the previous visit. He has been using antifungal cream as prescribed. He denies any pain with urination, frequency, or hematuria. He denies swelling of penis or scrotum. Review of Systems Constitutional: Negative for chills and fever. Genitourinary: Negative for dysuria, frequency, hematuria and urgency. Skin: Positive for itching. Negative for rash. BP 147/77 Pulse 93 Temp 36.8 ?C (98.3 ?F) Resp 20 Wt 114 kg (251 lb 5.2 oz) SpO2 96% BMI 38.21 kg/m? PAST MEDICAL HISTORY Diagnosis Date Allergic rhinitis [...] Naprosyn [Naproxen], Penicillins, and Quinine Hcl MEDICATIONS clindamycin (CLEOCIN) 150 mg capsule Take 3 capsules by mouth three times a day for 5 days. acetaminophen 325 mg cap Take by mouth as needed. furosemide (LASIX) 40 mg/4 mL soln 5-fluorouracil 2.5% acyclovir 5% diclofenac 1% salicylic acid 10% topical (CPD) Apply 0.25-0.5 g to affected area two times a day. magnesium oxide (MAG-OX) 400 mg (241.3 mg magnesium) tablet Take 400 mg by mouth once daily. nitroglycerin sublingual (NITROSTAT) 0.4 mg SL tablet Dissolve 0.4 mg under the tongue every 5 minutes as needed for chest pain. Omeprazole-Sodium Bicarbonate 40-1,680 mg pack Take by mouth. tamsulosin (FLOMAX) 0.4 mg Take 1 capsule by mouth two times a day. ACCU-CHEK LINDSAY PLUS TEST STRP test strip [...] (FLONASE) 50 mcg/actuation nasal spray Use 1 [place] in each nostril once daily. econazole 1 [...] SULFATE (PROVENTIL HFA INHALATION) Inhale as instructed. diphenoxylate-atropine (LOMOTIL) 2.5-0.025 mg per tablet Take 1 tablet by mouth four times a day as needed. azelastine (ASTELIN, ASTEPRO) 0.1% nasal spray Use 1 [place] in the nose two times a day. Use in each nostril as directed econazole (SPECTAZOLE) 1 % cream Apply to affected area once daily. losartan 50 mg tablet Take 50 mg by mouth once daily. sitaGLIPtin (JANUVIA) 100 mg tablet Take 100 mg by mouth once daily. mometasone-formoterol (DULERA) 200-5 mcg/actuation inhaler Inhale as instructed two times a day. metoprolol succinate XL (TOPROL XL) 25 mg ORAL 24 hr tablet Take 25 mg by mouth once daily. (more content not included)... [facility] Tele[facility] ([facility]) -------- BLANCA GILL ([id number]) 1950 Date Time Provider Department 09/28/24 ALAN MCKEON [facility] During your visit today, we recorded the following information about you: Alan Mckeon APRN.MANAGER GAME 09/28/2024 8:54 AM Signed Call patient let him know that the fungal screening was negative. That antibiotics were changed to clindamycin 3 times a day for 5 days according to the bacterial culture. If this does not help patient needs to follow-up with primary care. Patient should drink plenty water while taking clindamycin. Kaylen Woodall MA 09/28/2024 11:02 AM Signed Patient given results and verbalized understanding of instructions given. Kaylen Woodall MA Allergies As of Date: 09/28/2024 Noted Allergy Reaction ASPERGILLUS FUMIGATUS ALLERGENIC *12/18/2010 16 - Unknown BENADRYL (DIPHENHYDRAMINE HCL) 12/18/2010 14 - Other: See Comments Comments: agitation BIAXIN (CLARITHROMYCIN) 12/18/2010 7 - Swelling 12 - Shortness of Breath BYETTA (EXENATIDE) 10/14/2013 7 - Swelling 8 - GI Upset 14 - Other: See Comments Comments: aching in joints LEVSIN (HYOSCYAMINE SULFATE) 12/18/2010 16 - Unknown LIDOCAINE 10/14/2013 10 - Anaphylaxis NAPROSYN (NAPROXEN) 12/18/2010 7 - Swelling 9 - Itching PENICILLINS 12/18/2010 10 - Anaphylaxis QUININE HCL 12/18/2010 16 - Unknown Date Reviewed: 09/25/2024 Reviewed by: Delmi Crocker MA - Fully Assessed Reason for Visit: Results [95] Order(s):clindamycin (CLEOCIN) 150 mg capsuleTake 3 capsules by mouth three times a day for 5 days.Disp: 45 capsuleRfl: 0 Prescriptions as of 09/28/2024 - clindamycin (CLEOCIN) 150 mg capsule Take 3 capsules by mouth three times a day for 5 days. - acetaminophen 325 mg cap Take by mouth as needed. - furosemide (LASIX) 40 mg/4 mL soln - 5-fluorouracil 2.5% acyclovir 5% diclofenac 1% salicylic acid 10% topical (CPD) Apply 0.25-0.5 g to affected area two times a day. - magnesium oxide (MAG-OX) 400 mg (241.3 mg magnesium) tablet Take 400 mg by mouth once daily. - nitroglycerin sublingual (NITROSTAT) 0.4 mg SL tablet Dissolve 0.4 mg under the tongue every 5 minutes as needed for chest pain. - Omeprazole-Sodium Bicarbonate 40-1,680 mg pack Take by mouth. - tamsulosin (FLOMAX) 0.4 mg Take 1 capsule by mouth two times a day. - ACCU-CHEK LINDSAY PLUS TEST STRP test strip - ACCU-CHEK GUIDE ME GLUCOSE MTR USE DIRECTED THREE TIMES DAILY - NOVOLIN N NPH U-100 INSULIN 100 unit/mL injection INJECT 40 UNITS SUBCUTANEOUSLY IN THE MORNING AND IN THE EVENING - isosorbide mononitrate ER (IMDUR) 30 mg 24 hr tablet Take 30 mg by mouth once daily. - ubidecarenone Q-10 (COENZYME Q-10) 10 mg cap Take by mouth twice daily. - carvedilol (COREG) 3.125 mg tablet Take 3.125 mg by mouth twice daily with meals. - Cyanocobalamin 2,500 mcg subl Dissolve under the tongue. - pravastatin (PRAVACHOL) 40 mg tablet Take 40 mg by mouth once daily. - aspirin, enteric coated (ASPIRIN, ENTERIC COATED) 81 mg EC tablet Take 81 mg by mouth once daily. - clopidogrel (PLAVIX) 75 mg tablet Take 75 mg by mouth once daily. - losartan 50 mg tablet Take 50 mg by mouth once daily. - metFORMIN 1,000 mg tablet Take 1,000 mg by mouth twice daily with meals. - montelukast (SINGULAIR) 10 mg tablet Take 10 mg by mouth daily at bedtime. - sitaGLIPtin (JANUVIA) 100 mg tablet Take 100 mg by mouth once daily. - fluticasone (FLONASE) 50 mcg/actuation nasal spray Use 1 [place] in each nostril once daily. - mometasone-formoterol (DULERA) 200-5 mcg/actuation inhaler Inhale as instructed two times a day. - econazole 1 % TOPICAL cream Apply to affected area once daily. - ALPRAZolam 0.25 mg ORAL tablet Take 0.25 mg by mouth at bedtime as needed. - busPIRone (BUSPAR) 10 mg tablet Take 10 mg by mouth four times daily as needed. - pramipexole (MIRAPEX) 1 mg tablet Take 1 mg by mouth twice daily. - metoprolol succinate XL (TOPROL XL) 25 mg ORAL 24 hr tablet Take 25 mg by mouth once daily. - ALBUTEROL SULFATE (PROVENTIL HFA INHALATION) Inhale as instructed. - diphenoxylate-atropine (LOMOTIL) 2.5-0.025 mg per tablet Take 1 tablet by mouth four times a day as needed. - azelastine (ASTELIN, ASTEPRO) 0.1% nasal spray Use 1 [place] in the nose two times a day. Use in each nostril as directed - econazole (SPECTAZOLE) 1 % cream Apply to affected area once daily. - glyBURIDE 2.5 mg ORAL tablet Take 2.5 mg by mouth daily with breakfast. - Pitavastatin (LIVALO) 2 mg ORAL Tab Take by mouth. Problem List As Of Date 09/28/2024 Noted Resolved Prostate disorder [N42.9] 10/14/2013 Combined forms of age-related cataract of right*06/21/2018 Combined forms of age-related cataract, left ey*06/21/2018 07/30/2018 Type 2 diabetes mellitus without retinopathy (H*06/21/2018 Essential hypertension [I10] 06/21/2018 Regular astigmatism of lef (more content not included)... Normal [facility] Basic Metabolic Profile (BMP )on 09-26-2024 BUN/CRE 24.5 RATIO High 10-20 [facility] Comment on above: Performed By: #### L 500.2500 #### [facility] [address] [place], [address] CA,Total 9.2 mg/dL Normal 8.5-10.1 [facility] Comment on above: Performed By: #### L 500.2500 #### [facility] [address] [place], [address] Chloride [Moles/Vol] 102 mmol/L Normal 98-107 [facility] Comment on above: Performed By: #### L [id number] #### [facility] [address] [place], [address] CO2 [Moles/Vol] 35.0 mmol/L High 21.0-32.0 [facility] Comment on above: Performed By: #### L 500.2500 #### [facility] [address] [place], [address] Creatinine [Mass/Vol] 1.10 mg/dL Normal 0.70-1.30 [facility] Comment on above: Result Comment: The validity of the calculated GFR GFRAA in patients over 70 years has not been determined. Clinical correlation is essential. Performed By: #### L 500.2500 #### [facility] [address] [place], [address] EST GFR - AA 84 mL/min Normal >60 [facility] Comment on above: Result Comment: Afri can French GFR Calc Performed By: #### L 500.2500 #### [facility] [address] [place], [address] GAP 2 Low 5-15 [facility] Comment on above: Performed By: #### L 500.2500 #### [facility] [address] [place], [address] GFR/1.73 sq M.predicted among non-blacks MDRD (S/P/Bld) [Vol rate/Area] 70 mL/min/{1.73_m2} Normal >60 [facility] Comment on above: Result Comment: Non- GFR Calc Performed By: #### L 500.2500 #### [facility] [address] [place], [address] Glucose [Mass/Vol] 187 mg/dL High 74-106 [facility] Comment on above: Result Comment: Fast ing Glucose result greater than or equal to 126 mg/dL suggests DIABETES MELLITUS per A.D.A. criteria. Performed By: #### L 500.2500 #### [facility] [address] [place], [address] Potassium [Moles/Vol] 4.3 mmol/L Normal 3.5-5.1 [facility] Comment on above: Performed By: #### L 500.2500 #### [facility] [address] [place], [place], [address] Sodium [Moles/Vol] 139 mmol/L Normal 136-145 [facility] Comment on above: Performed By: #### L 500.2500 #### [facility] [address] [place], [place], [address] Urea nitrogen [Mass/Vol] 27 mg/dL High 7-18 [facility] Comment on above: Performed By: #### L 500.2500 #### [facility] [address] [place], [place], [address] Thoracic Spine 3 Viewson Thoracic Spine 3 Views [facility] Imaging Services [address] [place], [place] [address] Thoracic Spine 3 Views MR#: [id number] Acct: [id number] Name: BLANCA GILL Rep #: [id number] : 1950 M 74 From: Vivek Santiago MD PCP: Dr. Maya Pradhan, Status: REG CLI Study: Thoracic Spine 3 Views Date of Exam: 09/26/24 Exam# [id number] Ordering Dr: Maya Pradhan DO [id number] EXAM: XR THORACIC SPINE, 3 VIEWS CLINICAL INDICATION: T 8 FX FOLLOW UP TECHNIQUE: Frontal, lateral and swimmer''s views of the thoracic spine. COMPARISON: No relevant prior studies available. FINDINGS: VERTEBRAE: No significant loss of vertebral body height seen on this examination. Any known or previous fractures involving T8 can be better evaluated with CT. No spondylolisthesis. Preservation of the normal thoracic kyphosis. No significant facet arthropathy. No other unusual lytic or sclerotic lesions of bone. DISC SPACES: Multilevel spine degenerative changes. SOFT TISSUES: Soft tissues unremarkable. RAD/Thoracic Spine 3 Views IMPRESSION: No significant loss of vertebral body height seen on this examination. Any known or previous fractures involving T8 can be better evaluated with CT. Electronically Signed: Vivek Santiago MD at 12:57 EST , CC: Dr. Maya Pradhan DO Distribution Dispatcher: Signed [facility] CNOVon 09-25-2024 CNOV Office Visit ([facility] ) -------- BLANCA GILL ([id number]) 1950 M Date Time Provider Department 09/25/24 10:30 AM KODI VUONG [facility] During your visit today, we recorded the following information about you: Temperature Pulse Respiration Blood pressure 97.9 degrees 88/minute 21/minute 122/62 Weight 113.6 kg Kodi Vuong APRN.MANAGER GAME 09/25/2024 11:02 AM Signed This note was created using Nevro. Subjective Blanca Gill is a 74 year old male. 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 Patient is noncircumcised and was seen by myself July 19, 2024 and noted to have a fungal infection on the glans. He was seen again September 17 and again noted to have a fungal infection and a wound culture was done showing possible infection and he was prescribed doxycycline. Patient noted some improvement in symptoms but presents again today requesting evaluation. He otherwise denies any nausea vomiting fever urinary burning or frequency. Review of Systems As above Objective BP 122/62 Pulse 88 Temp 36.6 ?C (97.9 ?F) Resp 21 Wt 113.6 kg (250 lb 7.1 oz) SpO2 93% BMI 38.08 kg/m? Physical Exam Vitals and nursing note reviewed. Constitutional: General: He is not in acute distress. Appearance: Normal appearance. He is not ill-appearing. HENT: Head: Normocephalic. Mouth/Throat: Mouth: Mucous membranes are moist. Eyes: Conjunctiva/sclera: Conjunctivae normal. Pulmonary: Effort: Pulmonary effort is normal. Abdominal: Palpations: Abdomen is soft. Tenderness: There is no abdominal tenderness. Genitourinary: Comments: Normal external uncircumcised genitalia. On the superior and inferior aspects of the glans skin is mildly erythematous with no obvious open wounds bleeding or drainage noted. From my previous evaluation skin appears markedly improved. Musculoskeletal: General: Normal range of motion. Cervical back: Normal range of motion. Skin: General: Skin is warm and dry. Neurological: General: No focal deficit present. Mental Status: He is alert. Psychiatric: Mood and Affect: Mood normal. Behavior: Behavior normal. Assessment and Plan ASSESSMENT/PLAN: 1. Healing wound - ICD9: 959.9, ICD10: T14.90XD On evaluation today the glans does appear to be much improved from previous evaluation. From his visit September 17 the screen was negative. The wound culture showed moderate sensitivity to doxycycline. Urinalysis was unremarkable. Patient will continue to take the doxycycline as prescribed. Patient had other complaints regarding prostate which I discussed with him would be better evaluated with his PCP. He will continue with his fungal creams and return for any new or worsening concerns. Kodi Vuong APRN.MANAGER GAME Allergies As of Date: 09/25/2024 Noted Allergy Reaction ASPERGILLUS FUMIGATUS ALLERGENIC *12/18/2010 16 - Unknown BENADRYL (DIPHENHYDRAMINE HCL) 12/18/2010 14 - Other: See Comments Comments: agitation BIAXIN (CLARITHROMYCIN) 12/18/2010 7 - Swelling 12 - Shortness of Breath BYETTA (EXENATIDE) 10/14/2013 7 - Swelling 8 - GI Upset 14 - Other: See Comments Comments: aching in joints LEVSIN (HYOSCYAMINE SULFATE) 12/18/2010 16 - Unknown LIDOCAINE 10/14/2013 10 - Anaphylaxis NAPROSYN (NAPROXEN) 12/18/2010 7 - Swelling 9 - Itching PENICILLINS 12/18/2010 10 - Anaphylaxis QUININE HCL 12/18/2010 16 - Unknown Date Reviewed: 09/25/2024 Reviewed by: Delmi Crocker MA - Fully Assessed Reason for Visit: Rash [1087] Cmt: Bleeding in the groin x 1 week Primary Visit Diagnosis:Healing wound [T14.90XD] Prescriptions as of 09/25/2024 - doxycycline (VIBRA-TABS) 100 mg tablet Take 1 tablet by mouth two times a day for 7 days. - acetaminophen 325 mg cap Take by mouth as needed. - furosemide (LASIX) 40 mg/4 mL soln - 5-fluorouracil 2.5% acyclovir 5% diclofenac 1% salicylic acid 10% topical (CPD) Apply 0.25-0.5 g to affected area two times a day. - magnesium oxide (MAG-OX) 400 mg (241.3 mg magnesium) tablet Take 400 mg by mouth once daily. - nitroglycerin sublingual (NITROSTAT) 0.4 mg SL tablet Dissolve 0.4 mg under the tongue every 5 minutes as needed for chest pain. - Omeprazole-Sodium Bicarbonate 40-1,680 mg pack Take by mouth. - tamsulosin (FLOMAX) 0.4 mg Take 1 capsule by mouth two times a day. - ACCU-CHEK LINDSAY PLUS TEST STRP test strip - ACCU-CHEK GUIDE ME GLUCOSE MTR USE DIRECTED THREE TIMES DAILY - NOVOLIN N NPH U-100 INSULIN 100 unit/mL injection INJECT 40 UNITS SUBCUTANEOUSLY IN THE MORNING AND IN THE EVENING - isosorbide mononitrate ER (IMDUR) 30 mg 24 hr tablet Take 30 mg by mouth once daily. - ubidecarenone Q-10 (COENZYME Q-10) 10 mg cap Take by mouth twice daily. - carvedilol (COREG) 3.125 mg tablet Take 3.125 mg by mouth twice daily with meals. - Cyanocobalamin (more content not included)... Normal [facility] Danielle 09-20-2024 [facility] -------- BLANCA GILL ([id number]) 1950 M Date Time Provider Department 09/20/24 ANILA BANERJEE [facility] During your visit today, we recorded the following information about you: Anila Banerjee APRN.MANAGER GAME 09/20/2024 1:52 PM Signed Wound culture returns + Doxycyline provided to patient after reviewing history of allergies Patient verbalized understanding Instructed to follow up with PCP next week. Allergies As of Date: 09/20/2024 Noted Allergy Reaction ASPERGILLUS FUMIGATUS ALLERGENIC *12/18/2010 16 - Unknown BENADRYL (DIPHENHYDRAMINE HCL) 12/18/2010 14 - Other: See Comments Comments: agitation BIAXIN (CLARITHROMYCIN) 12/18/2010 7 - Swelling 12 - Shortness of Breath BYETTA (EXENATIDE) 10/14/2013 7 - Swelling 8 - GI Upset 14 - Other: See Comments Comments: aching in joints LEVSIN (HYOSCYAMINE SULFATE) 12/18/2010 16 - Unknown LIDOCAINE 10/14/2013 10 - Anaphylaxis NAPROSYN (NAPROXEN) 12/18/2010 7 - Swelling 9 - Itching PENICILLINS 12/18/2010 10 - Anaphylaxis QUININE HCL 12/18/2010 16 - Unknown Date Reviewed: 09/17/2024 Reviewed by: Kaylen Woodall MA - Fully Assessed Reason for Visit: Results [95] Order(s):doxycycline (VIBRA-TABS) 100 mg tabletTake 1 tablet by mouth two times a day for 7 days.Disp: 14 tabletRfl: 0 Prescriptions as of 09/20/2024 - doxycycline (VIBRA-TABS) 100 mg tablet Take 1 tablet by mouth two times a day for 7 days. - acetaminophen 325 mg cap Take by mouth as needed. - furosemide (LASIX) 40 mg/4 mL soln - 5-fluorouracil 2.5% acyclovir 5% diclofenac 1% salicylic acid 10% topical (CPD) Apply 0.25-0.5 g to affected area two times a day. - magnesium oxide (MAG-OX) 400 mg (241.3 mg magnesium) tablet Take 400 mg by mouth once daily. - nitroglycerin sublingual (NITROSTAT) 0.4 mg SL tablet Dissolve 0.4 mg under the tongue every 5 minutes as needed for chest pain. - Omeprazole-Sodium Bicarbonate 40-1,680 mg pack Take by mouth. - tamsulosin (FLOMAX) 0.4 mg Take 1 capsule by mouth two times a day. - ACCU-CHEK LINDSAY PLUS TEST STRP test strip - ACCU-CHEK GUIDE ME GLUCOSE MTR USE DIRECTED THREE TIMES DAILY - NOVOLIN N NPH U-100 INSULIN 100 unit/mL injection INJECT 40 UNITS SUBCUTANEOUSLY IN THE MORNING AND IN THE EVENING - isosorbide mononitrate ER (IMDUR) 30 mg 24 hr tablet Take 30 mg by mouth once daily. - ubidecarenone Q-10 (COENZYME Q-10) 10 mg cap Take by mouth twice daily. - carvedilol (COREG) 3.125 mg tablet Take 3.125 mg by mouth twice daily with meals. - Cyanocobalamin 2,500 mcg subl Dissolve under the tongue. - pravastatin (PRAVACHOL) 40 mg tablet Take 40 mg by mouth once daily. - aspirin, enteric coated (ASPIRIN, ENTERIC COATED) 81 mg EC tablet Take 81 mg by mouth once daily. - clopidogrel (PLAVIX) 75 mg tablet Take 75 mg by mouth once daily. - losartan 50 mg tablet Take 50 mg by mouth once daily. - metFORMIN 1,000 mg tablet Take 1,000 mg by mouth twice daily with meals. - montelukast (SINGULAIR) 10 mg tablet Take 10 mg by mouth daily at bedtime. - sitaGLIPtin (JANUVIA) 100 mg tablet Take 100 mg by mouth once daily. - fluticasone (FLONASE) 50 mcg/actuation nasal spray Use 1 [place] in each nostril once daily. - mometasone-formoterol (DULERA) 200-5 mcg/actuation inhaler Inhale as instructed two times a day. - econazole 1 % TOPICAL cream Apply to affected area once daily. - ALPRAZolam 0.25 mg ORAL tablet Take 0.25 mg by mouth at bedtime as needed. - busPIRone (BUSPAR) 10 mg tablet Take 10 mg by mouth four times daily as needed. - pramipexole (MIRAPEX) 1 mg tablet Take 1 mg by mouth twice daily. - metoprolol succinate XL (TOPROL XL) 25 mg ORAL 24 hr tablet Take 25 mg by mouth once daily. - ALBUTEROL SULFATE (PROVENTIL HFA INHALATION) Inhale as instructed. - diphenoxylate-atropine (LOMOTIL) 2.5-0.025 mg per tablet Take 1 tablet by mouth four times a day as needed. - azelastine (ASTELIN, ASTEPRO) 0.1% nasal spray Use 1 [place] in the nose two times a day. Use in each nostril as directed - econazole (SPECTAZOLE) 1 % cream Apply to affected area once daily. - glyBURIDE 2.5 mg ORAL tablet Take 2.5 mg by mouth daily with breakfast. - Pitavastatin (LIVALO) 2 mg ORAL Tab Take by mouth. 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 Normal [facility] -------- BLANCA GILL ([id number]) 1950 M Date Time Provider Department 09/18/24 RIA BRANCH [facility] During your visit today, we recorded the following information about you: Kaylen Woodall MA 09/18/2024 3:38 PM Signed ----- Message from Ria Branch APRN.MANAGER GAME sent at 09/18/2024 1:26 PM EST ----- Please advise patient the urine culture was negative. Kaylen Woodall MA 09/18/2024 3:39 PM Signed Patient given results and verbalized understanding of instructions given. Kaylen Woodall MA Allergies As of Date: 09/18/2024 Noted Allergy Reaction ASPERGILLUS FUMIGATUS ALLERGENIC *12/18/2010 16 - Unknown BENADRYL (DIPHENHYDRAMINE HCL) 12/18/2010 14 - Other: See Comments Comments: agitation BIAXIN (CLARITHROMYCIN) 12/18/2010 7 - Swelling 12 - Shortness of Breath BYETTA (EXENATIDE) 10/14/2013 7 - Swelling 8 - GI Upset 14 - Other: See Comments Comments: aching in joints LEVSIN (HYOSCYAMINE SULFATE) 12/18/2010 16 - Unknown LIDOCAINE 10/14/2013 10 - Anaphylaxis NAPROSYN (NAPROXEN) 12/18/2010 7 - Swelling 9 - Itching PENICILLINS 12/18/2010 10 - Anaphylaxis QUININE HCL 12/18/2010 16 - Unknown Date Reviewed: 09/17/2024 Reviewed by: Kaylen Woodall MA - Fully Assessed Reason for Visit: Results [95] Prescriptions as of 09/18/2024 - acetaminophen 325 mg cap Take by mouth as needed. - furosemide (LASIX) 40 mg/4 mL soln - 5-fluorouracil 2.5% acyclovir 5% diclofenac 1% salicylic acid 10% topical (CPD) Apply 0.25-0.5 g to affected area two times a day. - magnesium oxide (MAG-OX) 400 mg (241.3 mg magnesium) tablet Take 400 mg by mouth once daily. - nitroglycerin sublingual (NITROSTAT) 0.4 mg SL tablet Dissolve 0.4 mg under the tongue every 5 minutes as needed for chest pain. - Omeprazole-Sodium Bicarbonate 40-1,680 mg pack Take by mouth. - tamsulosin (FLOMAX) 0.4 mg Take 1 capsule by mouth two times a day. - ACCU-CHEK LINDSAY PLUS TEST STRP test strip - ACCU-CHEK GUIDE ME GLUCOSE MTR USE DIRECTED THREE TIMES DAILY - NOVOLIN N NPH U-100 INSULIN 100 unit/mL injection INJECT 40 UNITS SUBCUTANEOUSLY IN THE MORNING AND IN THE EVENING - isosorbide mononitrate ER (IMDUR) 30 mg 24 hr tablet Take 30 mg by mouth once daily. - ubidecarenone Q-10 (COENZYME Q-10) 10 mg cap Take by mouth twice daily. - carvedilol (COREG) 3.125 mg tablet Take 3.125 mg by mouth twice daily with meals. - Cyanocobalamin 2,500 mcg subl Dissolve under the tongue. - pravastatin (PRAVACHOL) 40 mg tablet Take 40 mg by mouth once daily. - aspirin, enteric coated (ASPIRIN, ENTERIC COATED) 81 mg EC tablet Take 81 mg by mouth once daily. - clopidogrel (PLAVIX) 75 mg tablet Take 75 mg by mouth once daily. - losartan 50 mg tablet Take 50 mg by mouth once daily. - metFORMIN 1,000 mg tablet Take 1,000 mg by mouth twice daily with meals. - montelukast (SINGULAIR) 10 mg tablet Take 10 mg by mouth daily at bedtime. - sitaGLIPtin (JANUVIA) 100 mg tablet Take 100 mg by mouth once daily. - fluticasone (FLONASE) 50 mcg/actuation nasal spray Use 1 [place] in each nostril once daily. - mometasone-formoterol (DULERA) 200-5 mcg/actuation inhaler Inhale as instructed two times a day. - econazole 1 % TOPICAL cream Apply to affected area once daily. - ALPRAZolam 0.25 mg ORAL tablet Take 0.25 mg by mouth at bedtime as needed. - busPIRone (BUSPAR) 10 mg tablet Take 10 mg by mouth four times daily as needed. - pramipexole (MIRAPEX) 1 mg tablet Take 1 mg by mouth twice daily. - metoprolol succinate XL (TOPROL XL) 25 mg ORAL 24 hr tablet Take 25 mg by mouth once daily. - ALBUTEROL SULFATE (PROVENTIL HFA INHALATION) Inhale as instructed. - diphenoxylate-atropine (LOMOTIL) 2.5-0.025 mg per tablet Take 1 tablet by mouth four times a day as needed. - azelastine (ASTELIN, ASTEPRO) 0.1% nasal spray Use 1 [place] in the nose two times a day. Use in each nostril as directed - econazole (SPECTAZOLE) 1 % cream Apply to affected area once daily. - glyBURIDE 2.5 mg ORAL tablet Take 2.5 mg by mouth daily with breakfast. - Pitavastatin (LIVALO) 2 mg ORAL Tab Take by mouth. 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 LABCLIA [id number] [address] [place] Bacteria Wnd Culton 09-17-19 25 Bacteria identified Cx Nom (Wound) ORGANISM ID: 1 Few Staphylococcus aureus [place] PBP2A SA CULTURE COLONY TEST: PBP2a was not detected by an immunochromatographic assay, so this isolate is methicillin-susceptible. ORGANISM ID: 2 Few skin sarah GRAM STAIN: Rare Gram positive cocci No Polymorphonuclear Leukocytes ORGANISM ID: 1 (STAPHYLOCOCCUS AUREUS) ANTIBIOTIC INTERPRETATION YVAN STATUS REFERENCE RANGE Oxacillin S 1 F Susceptible <=2 , Resistant >2 Oxacillin-susceptible staphylococci are susceptible to other penicilllinase-stable penicillins, beta-lactam/beta-lactama se inhibitor combinations, anti-staphylococcal cephems, and carbapenems. Erythromycin S <=0.25 F Susceptible <=0.5 , Intermediate >.5 , Resistant >4 Clindamycin S 0.25 F Susceptible <=0.5 , Intermediate >.5 , Resistant >2 Trimeth sulfameth R 160 F Susceptible <=40 , Resistant >40 Vancomycin S 1 F Susceptible <=2 , Intermediate >2 , Resistant >8 Rifampin S <=0.5 F Susceptible <=1 , Intermediate >1 , Resistant >2 Rifampin should not be used alone for antimicrobial therapy. Levofloxacin R >=8 F Susceptible <=1 , Intermediate >1 , Resistant >2 Tetracycline R >=16 F Susceptible <=4 , Intermediate >4 , Resistant >8 Doxycycline I 8 F Susceptible <=4 , Intermediate >4 , Resistant >8 Abnormal [facility] Comment on above: Performed By: #### 6 462-6 ####[facility] LABIA [id number] [address] OF [facility] CNOVon 09-17-2024 CNOV Office Visit (UCWSTR ) -------- BLANCA GILL ([id number]) 1950 M Date Time Provider Department 09/17/24 12:00 PM [facility] During your visit today, we recorded the following information about you: Temperature Pulse Respiration Blood pressure 97.6 degrees 90/minute 18/minute 120/62 Weight 113.4 kg Kami Younger APRN.MANAGER GAME 09/17/2024 12:23 PM Signed Subjective HPI Blacna presents today with concern for bleeding under his foreskin. He states he has had this many times in the past and it is a fungal infection that he has cream for at home, but just wants to have it checked. Dysuria noted today only. PAST MEDICAL HISTORY Diagnosis Date Allergic rhinitis [...] Naprosyn [Naproxen], Penicillins, and Quinine Hcl MEDICATIONS acetaminophen 325 mg cap Take by mouth as needed. furosemide (LASIX) 40 mg/4 mL soln 5-fluorouracil 2.5% acyclovir 5% diclofenac 1% salicylic acid 10% topical (CPD) Apply 0.25-0.5 g to affected area two times a day. magnesium oxide (MAG-OX) 400 mg (241.3 mg magnesium) tablet Take 400 mg by mouth once daily. nitroglycerin sublingual (NITROSTAT) 0.4 mg SL tablet Dissolve 0.4 mg under the tongue every 5 minutes as needed for chest pain. Omeprazole-Sodium Bicarbonate 40-1,680 mg pack Take by mouth. tamsulosin (FLOMAX) 0.4 mg Take 1 capsule by mouth two times a day. ACCU-CHEK LINDSAY PLUS TEST STRP test strip [...] Take 75 mg by mouth once daily. losartan 50 mg tablet Take 50 mg by mouth once daily. metFORMIN 1,000 mg tablet Take 1,000 mg by mouth twice daily with meals. montelukast (SINGULAIR) 10 mg tablet Take 10 mg by mouth daily at bedtime. sitaGLIPtin (JANUVIA) 100 mg tablet Take 100 mg by mouth once daily. fluticasone (FLONASE) 50 mcg/actuation nasal spray Use 1 [place] in each nostril once daily. mometasone-formoterol (DULERA) 200-5 mcg/actuation inhaler Inhale as instructed two times a day. econazole 1 % TOPICAL cream Apply to affected area once daily. ALPRAZolam 0.25 mg ORAL tablet Take 0.25 mg by mouth at bedtime as needed. busPIRone (BUSPAR) 10 mg tablet Take 10 mg by mouth four times daily as needed. pramipexole (MIRAPEX) 1 mg tablet Take 1 mg by mouth twice daily. metoprolol succinate XL (TOPROL XL) 25 mg ORAL 24 hr tablet Take 25 mg by mouth once daily. ALBUTEROL SULFATE (PROVENTIL HFA INHALATION) Inhale as instructed. diphenoxylate-atropine (LOMOTIL) 2.5-0.025 mg per tablet Take 1 tablet by mouth four times a day as needed. azelastine (ASTELIN, ASTEPRO) 0.1% nasal spray Use 1 [place] in the nose two times a day. Use in each nostril as directed econazole (SPECTAZOLE) 1 % cream Apply to affected area once daily. glyBURIDE 2.5 mg ORAL tablet Take 2.5 mg by mouth daily with breakfast. Pitavastatin (LIVALO) 2 mg ORAL Tab Take by mouth. FAMILY HISTORY Problem Relation Age of Onset Alzheimer's Disease Mother Diabetes Mother Hypertension Mother No Ocular Disease Mother Heart Father No Ocular Disease Father Glaucoma Brother Social History Tobacco Use Smoking status: Never Passive exposure: Never Smokeless tobacco: Former Types: Chew Vaping Use Vaping status: Never Used Substance Use Topics Alcohol use: No Drug use: No Review of Systems Genitourinary: Positive for dysuria. Blood noted under foreskin All other systems reviewed and are negative. Objective Physical Exam Vitals and (more content not included)... Normal [facility] Fungus Spec Culton Fungus identified Cx Nom (Unsp spec) CULTURE, FUNGAL: No Fungus isolated after 10 days Normal [facility] Comment on above: Performed By: #### 5 80-1 ####[facility] LABCLIA [id number] [place] [address] [place] UA DIP, URINE (POC)on 2024 BILIRUBIN UA (POCT) Negative Negative [facility] CLARITY UA (POCT) Slightly Cloudy Cl [facility] COLOR UA (POCT) Yellow [facility] GLUCOSE UA (POCT) 500 mg/dL Abnormal Negative [facility] Hemoglobin Ql (U) Negative Negative [facility] Interpretation and review of laboratory results Abnormal [facility] KETONE UA (POCT) Negative Negative mg/dL [facility] LEUKOCYTES UA (POCT) Negative Negative [facility] NITRITE UA (POCT) Negative Negative [facility] PH UA (POCT) 6.5 4.5 - 8.0 [facility] Protein Ql (U) Negative Negative mg/dL [facility] SPECIFIC GRAVITY UA (POCT) 1.010 1.005 - 1.030 [facility] UROBILINOGEN UA (POCT) 0.2 Lovely l E.U./dL [facility] Location:[address], [place], [address] [facility] POINT OF CARE [facility] Cardiology Visit Reporton Cardiology Visit Report [facility] [address] [place] [address] OFFICE VISIT Date of Service: 09/16/24 MR#: [id number] Acct: [id number] Name: BLANCA GILL Rep #: [id number] : 1950 Provider: RADHA Herbert Age/Sex: 73/M Location: [facility] Status: Signed HPI HPI History of Present Illness Details: Blanca Iyer is a 73-year-old gentleman that presents here today for a cardiovascular follow-up. We have been adjusting his medications. He does have coronary artery disease with stenting to his LAD in 2018. He had a heart catheterization in January 2024 and had stenting to his LAD. Echocardiogram done in April 2024 demonstrates an ejection fraction of 55% with stage I diastolic dysfunction. He does have a history of hypertension, hyperlipidemia and diabetes. Pt notes that he is still has some swelling. He is done at the wound center. He did decrease his metolazone to twice a week d/t his renal function. Will have his labs checked next week. His HgbA1C. 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 Is patient in pain?: No Allergies Penicillins Allergy (Severe, Verified 09/16/24 12:51) Anaphylaxis quinine sulfate (From Quine) Allergy (Severe, Verified 09/16/24 12:51) passed out benzocaine (From Cetacaine) Allergy (Verified 09/16/24 12:51) Swelling butamben (From Cetacaine) Allergy (Verified 09/16/24 12:51) Swelling ciprofloxacin HCl (From Cipro) Allergy (Verified 09/16/24 12:51) Hives clarithromycin (From Biaxin) Allergy (Verified 09/16/24 12:51) Swelling exenatide (From Byetta) Allergy (Verified 09/16/24 12:51) Rash folic acid (From Proferrin-Forte) Allergy (Verified 09/16/24 12:51) Rash hyoscyamine sulfate (From Levsin) Allergy (Verified 09/16/24 12:51) Rash iron heme polypeptide (From Proferrin-Forte) Allergy (Verified 09/16/24 12:51) tongue swelling naproxen (From Naprosyn) Allergy (Verified 09/16/24 12:51) Rash tetracaine (From Cetacaine) Allergy (Verified 09/16/24 12:51) throat swelled shut venlafaxine HCl (From Effexor) Allergy (Verified 09/16/24 12:51) tongue swelling ezetimibe (From Zetia) Adverse Reaction (Severe, Verified 09/16/24 12:51) Myalgias, diarrhea mold Adverse Reaction (Severe, Verified 09/16/24 12:51) PT UNSURE OF REACTION niacin (From Niaspan Extended-Release) Adverse Reaction (Severe, Verified 09/16/24 12:51) PT UNSURE OF REACTION procainamide Adverse Reaction (Severe, Verified 09/16/24 12:51) Anaphylactic/Resp. Distress atorvastatin calcium (From Lipitor) Adverse Reaction (Intermediate, Verified 09/16/24 12:51) Mylagias rosuvastatin calcium (From Crestor) Adverse Reaction (Intermediate, Verified 09/16/24 12:51) Myalgias diphenhydramine HCl (From Benadryl) Adverse Reaction (Verified 09/16/24 12:51) Restlessness Medications ???Medication ???Instructions ???Recorded ???Confirmed ???Type metformin 1,000 mg tablet 1,000 mg PO BIDCM diabetes 01/17/16 08/22/24 History montelukast 10 mg tablet 10 mg PO QHS allergies 01/17/16 08/22/24 History acetaminophen 325 mg tablet 325 - 650 mg (1 - 2 x 325 mg) PO 07/14/17 08/22/24 Rx Q6H PRN PRN Pain aspirin 81 mg tablet,delayed 81 mg PO DAILY@0800 #30 tabs 07/14/17 09/16/24 Rx release pramipexole 1 mg tablet 2 mg PO QHS headache 05/07/18 08/22/24 History coenzyme Q10 100 mg capsule 100 mg PO DAILY supplement 12/08/18 08/22/24 History magnesium oxide 400 mg PO DAILY supplement 12/08/18 08/22/24 History fluticasone propionate 50 1 spray intranasal DAILY PRN nasal 04/05/20 08/22/24 History mcg/actuation nasal spray spray,suspension nitroglycerin 0.4 mg sublingual 0.4 mg sublingual Q5M PRN Angina 11/29/21 08/22/24 Rx tablet pain #25 tabs vitamin B complex 1 tab PO DAILY 03/14/22 08/22/24 History isosorbide mononitrate 30 mg 30 mg PO DAILY #90 tabs 07/05/23 09/16/24 Rx tablet,extended release 24 hr buspirone 10 mg tablet 20 mg PO BID Anxiety 08/20/23 08/22/24 History clopidogrel 75 mg tablet 75 mg PO DAILY #90 tabs 10/26/23 09/16/24 Rx albuterol sulfate 90 mcg/actuation 2 puff inhalation Q4H PRN 10/28/23 08/22/24 Rx aerosol inhaler (Ventolin HFA) shortness of breath or wheezing #18 grams clotrimazole-betamethaso ne 1 1 applic topical BID 4 weeks #45 11/17/23 08/22/24 Rx %-0.05 % topical cream grams carvedilol 25 mg tablet 25 mg PO BID #180 tabs 12/07/23 09/16/24 Rx cholecalciferol (vitamin D3) 50 2,000 unit PO DAILY supplement 12/07/23 08/22/24 History mcg (2,000 unit) capsule glyburide 1.25 mg tablet 1.25 mg (more content not included)... [facility] 09-13-2024 [facility] Telephone (MODESTA) -------- BLANCA GILL ([id number]) 1950 M Date Time Provider Department 09/13/24 LAMAR QUINONES During your visit today, we recorded the following information about you: MonikakindraCristiana 09/13/2024 11:59 AM Signed Patient is using the cream provided for his foreskin but it has flared up and he has new bleeding under the foreskin and needs to speak to a nurse today for advice please. Thank you. Carlos Eduardo Matias, MYRA 09/13/2024 1:54 PM Signed Called patient and answered questions. Patient states he does not feel poorly nor have any signs of infection. Patient is taking a cortisol cream for itching. He has an appointment on and will have his primary care physician look to make sure that it is ok. Allergies As of Date: 09/13/2024 Noted Allergy Reaction ASPERGILLUS FUMIGATUS ALLERGENIC *12/18/2010 16 - Unknown BENADRYL (DIPHENHYDRAMINE HCL) 12/18/2010 14 - Other: See Comments Comments: agitation BIAXIN (CLARITHROMYCIN) 12/18/2010 7 - Swelling 12 - Shortness of Breath BYETTA (EXENATIDE) 10/14/2013 7 - Swelling 8 - GI Upset 14 - Other: See Comments Comments: aching in joints LEVSIN (HYOSCYAMINE SULFATE) 12/18/2010 16 - Unknown LIDOCAINE 10/14/2013 10 - Anaphylaxis NAPROSYN (NAPROXEN) 12/18/2010 7 - Swelling 9 - Itching PENICILLINS 12/18/2010 10 - Anaphylaxis QUININE HCL 12/18/2010 16 - Unknown Date Reviewed: 07/19/2024 Reviewed by: Kodi Vuong APRN.MANAGER GAME - Fully Assessed Reason for Visit: Patient Question [8537] Prescriptions as of 09/13/2024 - acetaminophen 325 mg cap Take by mouth as needed. - furosemide (LASIX) 40 mg/4 mL soln - 5-fluorouracil 2.5% acyclovir 5% diclofenac 1% salicylic acid 10% topical (CPD) Apply 0.25-0.5 g to affected area two times a day. - magnesium oxide (MAG-OX) 400 mg (241.3 mg magnesium) tablet Take 400 mg by mouth once daily. - nitroglycerin sublingual (NITROSTAT) 0.4 mg SL tablet Dissolve 0.4 mg under the tongue every 5 minutes as needed for chest pain. - Omeprazole-Sodium Bicarbonate 40-1,680 mg pack Take by mouth. - tamsulosin (FLOMAX) 0.4 mg Take 1 capsule by mouth two times a day. - ACCU-CHEK LINDSAY PLUS TEST STRP test strip - ACCU-CHEK GUIDE ME GLUCOSE MTR USE DIRECTED THREE TIMES DAILY - NOVOLIN N NPH U-100 INSULIN 100 unit/mL injection INJECT 40 UNITS SUBCUTANEOUSLY IN THE MORNING AND IN THE EVENING - isosorbide mononitrate ER (IMDUR) 30 mg 24 hr tablet Take 30 mg by mouth once daily. - ubidecarenone Q-10 (COENZYME Q-10) 10 mg cap Take by mouth twice daily. - carvedilol (COREG) 3.125 mg tablet Take 3.125 mg by mouth twice daily with meals. - Cyanocobalamin 2,500 mcg subl Dissolve under the tongue. - pravastatin (PRAVACHOL) 40 mg tablet Take 40 mg by mouth once daily. - aspirin, enteric coated (ASPIRIN, ENTERIC COATED) 81 mg EC tablet Take 81 mg by mouth once daily. - clopidogrel (PLAVIX) 75 mg tablet Take 75 mg by mouth once daily. - losartan 50 mg tablet Take 50 mg by mouth once daily. - metFORMIN 1,000 mg tablet Take 1,000 mg by mouth twice daily with meals. - montelukast (SINGULAIR) 10 mg tablet Take 10 mg by mouth daily at bedtime. - sitaGLIPtin (JANUVIA) 100 mg tablet Take 100 mg by mouth once daily. - fluticasone (FLONASE) 50 mcg/actuation nasal spray Use 1 [place] in each nostril once daily. - mometasone-formoterol (DULERA) 200-5 mcg/actuation inhaler Inhale as instructed two times a day. - econazole 1 % TOPICAL cream Apply to affected area once daily. - ALPRAZolam 0.25 mg ORAL tablet Take 0.25 mg by mouth at bedtime as needed. - busPIRone (BUSPAR) 10 mg tablet Take 10 mg by mouth four times daily as needed. - pramipexole (MIRAPEX) 1 mg tablet Take 1 mg by mouth twice daily. - metoprolol succinate XL (TOPROL XL) 25 mg ORAL 24 hr tablet Take 25 mg by mouth once daily. - ALBUTEROL SULFATE (PROVENTIL HFA INHALATION) Inhale as instructed. - diphenoxylate-atropine (LOMOTIL) 2.5-0.025 mg per tablet Take 1 tablet by mouth four times a day as needed. - azelastine (ASTELIN, ASTEPRO) 0.1% nasal spray Use 1 [place] in the nose two times a day. Use in each nostril as directed - econazole (SPECTAZOLE) 1 % cream Apply to affected area once daily. - glyBURIDE 2.5 mg ORAL tablet Take 2.5 mg by mouth daily with breakfast. - Pitavastatin (LIVALO) 2 mg ORAL Tab Take by mouth. 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 Normal [facility] Basic Metabolic Profile (BMP )on 09-10-2024 BUN/CRE 19.3 RATIO Normal - [facility] Comment on above: Performed By: #### L 501.080 #### [facility] [address] [place], [address] CA,Total 9.0 mg/dL Normal 8.5-10.1 [facility] Comment on above: Performed By: #### L 501.080 #### [facility] [address] [place], [address] Chloride [Moles/Vol] 93 mmol/L Low 98-107 [facility] Comment on above: Performed By: #### L 501.080 #### [facility] [address] [place], [address] CO2 [Moles/Vol] 39.0 mmol/L High 21.0-32.0 [facility] Comment on above: Performed By: #### L 501.080 #### [facility] [address] [place], [address] Creatinine [Mass/Vol] 1.35 mg/dL High 0.70-1.30 [facility] Comment on above: Result Comment: The validity of the calculated GFR GFRAA in patients over 70 years has not been determined. Clinical correlation is essential. Performed By: #### L 501.080 #### [facility] [address] [place], [address] EST GFR - AA 67 mL/min Normal >60 [facility] Comment on above: Result Comment: Afri can French GFR Calc Performed By: #### L 501.080 #### [facility] [address] [place], [address] GAP 4 Low 5-15 [facility] Comment on above: Performed By: #### L 501.080 #### [facility] [address] [place], [address] GFR/1.73 sq M.predicted among non-blacks MDRD (S/P/Bld) [Vol rate/Area] 55 mL/min/{1.73_m2} Low >60 [facility] Comment on above: Result Comment: Non- GFR Calc Performed By: #### L 501.080 #### [facility] [address] [place], [address] Glucose [Mass/Vol] 69 mg/dL Low 74-106 [facility] Comment on above: Performed By: #### L 501.080 #### [facility] [address] [place], [address] Potassium [Moles/Vol] 3.7 mmol/L Normal 3.5-5.1 [facility] Comment on above: Performed By: #### L 501.080 #### [facility] [address] [place], [address] Sodium [Moles/Vol] 136 mmol/L Normal 136-145 [facility] Comment on above: Performed By: #### L 501.080 #### [facility] [address] [place], [address] Urea nitrogen [Mass/Vol] 26 mg/dL High 7-18 [facility] Comment on above: Performed By: #### L 501.080 #### [facility] [address] [place], [address] Basic Metabolic Profile (BMP )on 09-02-2024 BUN/CRE 23.1 RATIO High 10-20 [facility] Comment on above: Performed By: #### L 501.080 #### [facility] [address] [place], [address] CA,Total 9.3 mg/dL Normal 8.5-10.1 [facility] Comment on above: Performed By: #### L 501.080 #### [facility] [address] [place], [address] Chloride [Moles/Vol] 87 mmol/L Low 98-107 [facility] Comment on above: Performed By: #### L 501.080 #### [facility] [address] [place], [address] CO2 [Moles/Vol] 36.0 mmol/L High 21.0-32.0 [facility] Comment on above: Performed By: #### L 501.080 #### [facility] [address] [place], [address] Creatinine [Mass/Vol] 1.04 mg/dL Normal 0.70-1.30 [facility] Comment on above: Result Comment: The validity of the calculated GFR GFRAA in patients over 70 years has not been determined. Clinical correlation is essential. Performed By: #### L 501.080 #### [facility] [address] [place], [address] EST GFR - AA 90 mL/min Normal >60 [facility] Comment on above: Result Comment: Afri can French GFR Calc Performed By: #### L 501.080 #### [facility] [address] [place], [address] GAP 5 Normal 5-15 [facility] Comment on above: Performed By: #### L 501.080 #### [facility] [address] [place], [address] GFR/1.73 sq M.predicted among non-blacks MDRD (S/P/Bld) [Vol rate/Area] 74 mL/min/{1.73_m2} Normal >60 [facility] Comment on above: Result Comment: Non- GFR Calc Performed By: #### L 501.080 #### [facility] [address] [place], [address] Glucose [Mass/Vol] 114 mg/dL High 74-106 [facility] Comment on above: Result Comment: Fast ing Glucose result from 100 to 125 mg/dL suggests IMPAIRED HOMEOSTASIS per A.D.A. criteria. Performed By: #### L 501.080 #### [facility] [address] [place], [address] Potassium [Moles/Vol] 4.0 mmol/L Normal 3.5-5.1 [facility] Comment on above: Performed By: #### L 501.080 #### [facility] [address] [place], [address] Sodium [Moles/Vol] 127 mmol/L Low 136-145 [facility] Comment on above: Performed By: #### L 501.080 #### [facility] [address] [place], [address] Urea nitrogen [Mass/Vol] 24 mg/dL High 7-18 [facility] Comment on above: Performed By: #### L 501.080 #### [facility] [address] [place], [address] Wound Ctr History AND Physic cindy 08-23-2024 Wound Ctr History & Physical [facility] [address] [place] [address] H P Exam - Wound Care 08/23/242133 MR#: [id number] Acct: [id number] Name: BLANCA GILL Rep #: [id number] : 1950 73 From: Lamin Ring MD PCP: Dr. Maya Pradhan, DO Status:REG RCR Location: History of Present Illness Date of Service: 08/23/24 Chief Complaint: Venous ulceration, chronic venous insufficiency, venous hypertension with inflammation and ulceration - Left lower extremity History of Wound: This is a 73-year-old male who presented with an ulceration on the left lateral calf. The ulceration had been present for several weeks. The patient suffers from chronic swelling in his lower extremities bilaterally. He has had previous venous ulcerations in his lower extremities. A venous duplex examination performed on July 10, 2023, revealed incompetence of the right accessory saphenous vein in the mid thigh. The right great saphenous vein and small saphenous vein were competent. The left lower extremity venous system was not fully evaluated. The patient's most recent documented arterial study was performed in December 2021, which revealed no evidence of significant arterial occlusive disease in the lower extremities. The patient has previously undergone lower extremity venography, which revealed no evidence of significant venous outflow obstruction. He has mechanical pneumatic compression pumps at home, but has not recently been using them as directed. The patient was recently hospitalized at [facility] from May 06 to May 18, 2024, for acute respiratory failure with hypoxia and hypercarbia. As a prelude to his admission, the patient had fallen, suffering a vertebral fracture of the thoracic #8 vertebrae. During the course of the patient's recent hospital admission, the patient was treated for staph pneumonia. He was also treated for metabolic encephalopathy. He is , and currently lives with his granddaughter, who assists him in his daily needs. The patient is known to be diabetic, and suffers from multiple other pre-existing medical conditions, which are listed herein. His most recent hemoglobin A1c was 8.9. The patient is not active, spending a great deal of each day sitting in idle fashion. He sleeps in a recliner at night. He denies a history of thrombophlebitis. [facility] Medical History Swelling of left lower extremity KRISTI (obstructive sleep apnea) BPH (benign prostatic hyperplasia) Venous ulcer of left leg Venous hypertension, chronic, with ulcer and inflammation Chronic venous insufficiency 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-39.9) Acute respiratory failure with hypoxia and hypercarbia Fracture, thoracic vertebra Tinea cruris History of chronic CHF Varicose veins of both legs with edema Lower extremity edema 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 disease Carotid bruit Neck pain Shortness of breath Abnormal nuclear stress test Essential hypertension Inappropriate sexual behavior Hypomagnesemia Muscle cramps Edema Chronic diastolic (congestive) heart failure Atherosclerotic heart disease of [place] coronary artery without angina pectoris History of ST elevation myocardial infarction (STEMI) (07/11/17) Asthma IBS (irritable bowel syndrome) 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.9) Restless legs Hyperlipidemia Diabetes mellitus, type 2 Anxiety Home Medications ???Medication ???Instructions ???Recorded ???Last Taken ???Type metformin 1,000 mg tablet 1,000 mg PO BIDCM diabetes 01/17/16 01/25/24 History montelukast 10 mg tablet 10 mg PO QHS allergies 01/17/16 12/07/18 History acetaminophen 325 mg tablet 325 - 650 mg (1 - 2 x 325 mg) PO 07/14/17 Unknown Rx Q6H PRN PRN Pain aspirin 81 mg tablet,delayed 81 mg PO DAILY@0800 #30 tabs 07/14/17 01/26/24 Rx release pramipexole 1 mg tablet 2 mg PO QHS headache 05/07/18 12/08/18 21:00 History coenzyme Q10 100 mg capsule 100 mg PO DAILY supplement 12/08/18 12/04/18 History magnesium oxide 400 mg PO DAILY supplement 12/08/18 12/08/18 08:00 History fluticasone propionate 50 1 spray intranasal DAILY PRN nasal 04/05/20 Unknown History mcg/actuation nasal spray spray,suspension nitroglycerin 0.4 mg sublingual 0.4 mg sublingual Q5M PRN Angina 11/29/21 Unknown Rx tablet pain #25 tabs vitamin B complex 1 tab PO DAILY 03/14/22 Unknown History isosorbide mononitrate 30 mg 30 mg PO DAILY #90 tabs 07/05/23 Unknown Rx tablet,extended release 24 hr buspirone 10 mg tablet 20 mg PO BID Anxiety 08/20/23 Unknown History clopidogrel 75 mg tablet 75 mg PO DAILY #90 tabs 10/26/23 01/26/24 Rx albuterol sulfate 90 mcg/actuation 2 puff inhalation Q4H PRN 10/28/23 Unknown Rx aerosol inhaler (Ventolin HFA) shortness of breath or wheezing #18 grams clotrimazole-betamethaso ne 1 1 applic topical BID 4 weeks #45 (more content not included)... Normal [facility] Cardiology Visit Reporton Cardiology Visit Report [facility] [address] [place] [address] OFFICE VISIT Date of Service: 08/22/24 MR#: [id number] Acct: [id number] Name: BLANCA GILL Rep #: [id number] : 1950 Provider: RADHA Herbert Age/Sex: 73/M Location: [facility] Status: Signed HPI HPI History of Present Illness Details: Blanca Iyer is a 73-year-old gentleman that presents here today for a cardiovascular follow-up. We have been adjusting his medications. He does have coronary artery disease with stenting to his LAD in 2018. He had a heart catheterization in January 2024 and had stenting to his LAD. Echocardiogram done in April 2024 demonstrates an ejection fraction of 55% with stage I diastolic dysfunction. He does have a history of hypertension, hyperlipidemia and diabetes. Pt was just started on Farxiga. He just started it yesterday. He does complain of a dry mouth. He is still having edema. He is still having SOB with exertion. Intake Vital Signs 07/28/24 08:19 08/09/24 07:28 08/22/24 13:27 08/22/24 13:30 Height 5 ft 8 in 5 ft 8 in 5 ft 8 in 5 ft 8 in Weight: 256 lb BMI 38.9 BP 110/69 Blood Pressure Location Lt brachial Position Sitting Respiration 22 H Pulse 78 Pulse Source Monitor Pulse Oximetry (%) 94 Intake Visit Reasons: 3 WK FU [employer] Required: No Is patient in pain?: No Allergies Penicillins Allergy (Severe, Verified 08/22/24 13:27) Anaphylaxis quinine sulfate (From Quine) Allergy (Severe, Verified 08/22/24 13:27) passed out benzocaine (From Cetacaine) Allergy (Verified 08/22/24 13:27) Swelling butamben (From Cetacaine) Allergy (Verified 08/22/24 13:27) Swelling ciprofloxacin HCl (From Cipro) Allergy (Verified 08/22/24 13:27) Hives clarithromycin (From Biaxin) Allergy (Verified 08/22/24 13:27) Swelling exenatide (From Byetta) Allergy (Verified 08/22/24 13:27) Rash folic acid (From Proferrin-Forte) Allergy (Verified 08/22/24 13:27) Rash hyoscyamine sulfate (From Levsin) Allergy (Verified 08/22/24 13:27) Rash iron heme polypeptide (From Proferrin-Forte) Allergy (Verified 08/22/24 13:27) tongue swelling naproxen (From Naprosyn) Allergy (Verified 08/22/24 13:27) Rash tetracaine (From Cetacaine) Allergy (Verified 08/22/24 13:27) throat swelled shut venlafaxine HCl (From Effexor) Allergy (Verified 08/22/24 13:27) tongue swelling ezetimibe (From Zetia) Adverse Reaction (Severe, Verified 08/22/24 13:27) Myalgias, diarrhea mold Adverse Reaction (Severe, Verified 08/22/24 13:27) PT UNSURE OF REACTION niacin (From Niaspan Extended-Release) Adverse Reaction (Severe, Verified 08/22/24 13:27) PT UNSURE OF REACTION procainamide Adverse Reaction (Severe, Verified 08/22/24 13:27) Anaphylactic/Resp. Distress atorvastatin calcium (From Lipitor) Adverse Reaction (Intermediate, Verified 08/22/24 13:27) Mylagias rosuvastatin calcium (From Crestor) Adverse Reaction (Intermediate, Verified 08/22/24 13:27) Myalgias diphenhydramine HCl (From Benadryl) Adverse Reaction (Verified 08/22/24 13:27) Restlessness Medications ???Medication ???Instructions ???Recorded ???Confirmed ???Type metformin 1,000 mg tablet 1,000 mg PO BIDCM diabetes 01/17/16 08/22/24 History montelukast 10 mg tablet 10 mg PO QHS allergies 01/17/16 08/22/24 History acetaminophen 325 mg tablet 325 - 650 mg (1 - 2 x 325 mg) PO 07/14/17 08/22/24 Rx Q6H PRN PRN Pain aspirin 81 mg tablet,delayed 81 mg PO DAILY@0800 #30 tabs 07/14/17 08/22/24 Rx release pramipexole 1 mg tablet 2 mg PO QHS headache 05/07/18 08/22/24 History coenzyme Q10 100 mg capsule 100 mg PO DAILY supplement 12/08/18 08/22/24 History magnesium oxide 400 mg PO DAILY supplement 12/08/18 08/22/24 History fluticasone propionate 50 1 spray intranasal DAILY PRN nasal 04/05/20 08/22/24 History mcg/actuation nasal spray spray,suspension nitroglycerin 0.4 mg sublingual 0.4 mg sublingual Q5M PRN Angina 11/29/21 08/22/24 Rx tablet pain #25 tabs vitamin B complex 1 tab PO DAILY 03/14/22 08/22/24 History isosorbide mononitrate 30 mg 30 mg PO DAILY #90 tabs 07/05/23 08/22/24 Rx tablet,extended release 24 hr buspirone 10 mg tablet 20 mg PO BID Anxiety 08/20/23 08/22/24 History clopidogrel 75 mg tablet 75 mg PO DAILY #90 tabs 10/26/23 08/22/24 Rx albuterol sulfate 90 mcg/actuation 2 puff inhalation Q4H PRN 10/28/23 08/22/24 Rx aerosol inhaler (Ventolin HFA) shortness of breath or wheezing #18 grams clotrimazole-betamethaso ne 1 1 applic topical BID 4 weeks #45 11/17/23 08/22/24 Rx %-0.05 % topical cream grams carvedilol 25 mg tablet 25 mg PO BID #180 tabs 12/07/23 08/22/24 Rx cholecalciferol (vitamin D3) 50 2,000 unit PO DAILY supplement 12/07/23 08/22/24 History mcg (2,000 unit) capsule glyburide 1.25 mg tablet 1.25 m (more content not included)... Normal [facility] Bedside Glucoseon 08-10-2024 FINGERSTICK GLU 65 mg/dL Low 74-106 [facility] Comment on above: Result Comment: BLAYNE GEMENT OF PATIENT CARE PER NURSING PROTOCOL Performed By: #### L 501.080 #### [facility] [address] [place], [address] FINGERSTICK GLU 53 mg/dL Low 74-106 [facility] Comment on above: Result Comment: BLAYNE GEMENT OF PATIENT CARE PER NURSING PROTOCOL Performed By: #### L 501.080 #### [facility] [address] [place], [address] Pulmonary Visit Reporton Pulmonary Visit Report [facility] [address] [place] [address] OFFICE VISIT Date of Service: 08/09/24 MR#: [id number] Acct: [id number] Name: BLANCA GILL Rep #: [id number] : 1950 Provider: CASEY Vasquez Age/Sex: 73/M Location: [facility] Status: Signed Assessment and Plan Assessment and Plan (1) KRISTI (obstructive sleep apnea): Status: Chronic Comment: AHI 45.8 Plan: Deteriorated. The patient has not been compliant with PAP therapy. He states that he could sleep all the time. I explained to him the deleterious effects on his comorbid conditions related to the fact that he has been noncompliant with his PAP therapy. Last sleep test was in 2019. His condition has significantly progressed in the past 4 years, the patient is now requiring supplemental oxygen. He is agreeable to a retitration study. He is agreeable to trying to be compliant with PAP therapy once new recommendations are available. Follow-up in the office in 2 months to evaluate a compliance report and make sure that the patient is in fact attempting to wear his PAP device. (2) (HFpEF) heart failure with preserved ejection fraction: Status: Chronic Qualifiers: Heart failure chronicity: chronic Qualified Code(s): I50.32 - Chronic diastolic (congestive) heart failure Plan: Deteriorated. The patient does have progressive shortness of breath likely rate related to the fact that he has been noncompliant with PAP therapy. This was discussed at today's office visit. He is agreeable to a retitration study and reinitiating compliance with PAP therapy. It is my hopes, that with his declining health and connecting the condition with his noncompliance that the patient will understand the importance and be compliant with PAP therapy. (3) Chronic hypoxic respiratory failure: Status: Chronic Plan: The patient is using and benefiting from oxygen. Continue to utilize to maintain a saturation of 89-92%. Follow-up in 2 months. (4) Asthma: Status: Chronic Qualifiers: Asthma severity: mild Asthma persistence: intermittent Asthma complication type: uncomplicated Qualified Code(s): J45.20 - Mild intermittent asthma, uncomplicated Plan: Stable, no signs of exacerbation of asthma today. No additional testing at this time. Contact the office with any signs of new or worsening symptoms. Follow-up in 2 months. Orders: Orders Polysomnography with PAP Today G47.33 - Obstructive sleep apnea (adult) (pediatric) Plan Details Follow Up: 2 Months (LMR) [facility] FU Chief Complaint: Shortness of breath HPI Comments Details: This patient presents to the office today to discuss his cough. He is ambulatory, and on supplemental oxygen. He was recently hospitalized at [facility] from May 06, 2024 through May 18, 2024 for thoracic spine fracture complicated by respiratory failure with shortness of breath on BiPAP support with hypoxia and hypercarbia. He was initially seen in the emergency department after his granddaughter called 911 as he had tripped and fallen to the ground. The patient was lethargic and confused. He was diagnosed with acute metabolic encephalopathy due to hypercapnia blood gas showed a pH of 7.11, pCO2 of 109.8. He was initially treated with BiPAP support. He was also diagnosed with acute exacerbation of asthma and Staphylococcus pneumonia. He had been noncompliant with PAP therapy. Upon discharge he was treated with a prednisone burst. He did complete a 7-day course of vancomycin and amoxicillin for the pneumonia. He tolerated BiPAP support well. He was identified as requiring supplemental oxygen on ambulation and discharge on 2 L/min with exertion. He has not currently requiring maintenance inhalers. He only utilizes albuterol 1-2 times per week. He is compliant with supplemental oxygen. He wears 3 L/min at all times. He has been sleeping with supplemental oxygen. He states that he has a new PAP machine in the box. He reports that he sleeps all the time but still feels tired. He admits that he could fall asleep sitting in the chair here. He is having several episodes of nocturia at night. He reports dry mouth. He does snore. He does have shortness of breath that is worse with exertion. He has a moist sounding cough that is nonproductive. He denies any hemoptysis. He denies any wheezing, chest tightness, chest pain or palpitations. He has not had any fever, chills or body aches. Intake Vital Signs 05/16/24 15:08 07/28/24 08:19 08/02/24 14:58 08/09/24 07:28 Height 5 ft 8 in 5 ft 8 in 5 ft 8 in 5 ft 8 in Weight: 250 lb BMI 38.0 BP 110/67 Blood Pressure Location Rt brachial Position Sitting Respiration 20 H Pulse 88 Pulse Source Monitor Temp 98.4 F Temperature Source Temporal Artery Pulse Oximetry (%) 98 (more content not included)... Normal [facility] Wound Ctr History AND Physic cindy 08-09-2024 Wound Ctr History & Physical [facility] [address] [place] [address] H P Exam - Wound Care 08/09/24 1900 MR#: [id number] Acct: [id number] Name: BLANCA GILL Rep #: [id number] : 1950 73 From: Lamin Ring MD PCP: Dr. Maya Pradhan, DO Status:REG RCR Location: History of Present Illness Date of Service: 08/09/24 Chief Complaint: Venous ulceration, chronic venous insufficiency, venous hypertension with inflammation and ulceration - Left lower extremity History of Wound: This is a 73-year-old male who presented with an ulceration on the left lateral calf. The ulceration had been present for several weeks. The patient suffers from chronic swelling in his lower extremities bilaterally. He has had previous venous ulcerations in his lower extremities. A venous duplex examination performed on July 10, 2023, revealed incompetence of the right accessory saphenous vein in the mid thigh. The right great saphenous vein and small saphenous vein were competent. The left lower extremity venous system was not fully evaluated. The patient's most recent documented arterial study was performed in December 2021, which revealed no evidence of significant arterial occlusive disease in the lower extremities. The patient has previously undergone lower extremity venography, which revealed no evidence of significant venous outflow obstruction. He has mechanical pneumatic compression pumps at home, but has not recently been using them as directed. The patient was recently hospitalized at [facility] from May 06 to May 18, 2024, for acute respiratory failure with hypoxia and hypercarbia. As a prelude to his admission, the patient had fallen, suffering a vertebral fracture of the thoracic #8 vertebrae. During the course of the patient's recent hospital admission, the patient was treated for staph pneumonia. He was also treated for metabolic encephalopathy. He is , and currently lives with his granddaughter, who assists him in his daily needs. The patient is known to be diabetic, and suffers from multiple other pre-existing medical conditions, which are listed herein. His most recent hemoglobin A1c was 8.9. The patient is not active, spending a great deal of each day sitting in idle fashion. He sleeps in a recliner at night. He denies a history of thrombophlebitis. [facility] Medical History Swelling of left lower extremity KRISTI (obstructive sleep apnea) BPH (benign prostatic hyperplasia) Venous ulcer of left leg Venous hypertension, chronic, with ulcer and inflammation Chronic venous insufficiency 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-39.9) Acute respiratory failure with hypoxia and hypercarbia Fracture, thoracic vertebra Tinea cruris History of chronic CHF Varicose veins of both legs with edema Lower extremity edema 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 disease Carotid bruit Neck pain Shortness of breath Abnormal nuclear stress test Essential hypertension Inappropriate sexual behavior Hypomagnesemia Muscle cramps Edema Chronic diastolic (congestive) heart failure Atherosclerotic heart disease of [place] coronary artery without angina pectoris History of ST elevation myocardial infarction (STEMI) (07/11/17) Asthma IBS (irritable bowel syndrome) 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.9) Restless legs Hyperlipidemia Diabetes mellitus, type 2 Anxiety Home Medications ???Medication ???Instructions ???Recorded ???Last Taken ???Type metformin 1,000 mg tablet 1,000 mg PO BIDCM diabetes 01/17/16 01/25/24 History montelukast 10 mg tablet 10 mg PO QHS allergies 01/17/16 12/07/18 History acetaminophen 325 mg tablet 325 - 650 mg (1 - 2 x 325 mg) PO 07/14/17 Unknown Rx Q6H PRN PRN Pain aspirin 81 mg tablet,delayed 81 mg PO DAILY@0800 #30 tabs 07/14/17 01/26/24 Rx release pramipexole 1 mg tablet 2 mg PO QHS headache 05/07/18 12/08/18 21:00 History coenzyme Q10 100 mg capsule 100 mg PO DAILY supplement 12/08/18 12/04/18 History magnesium oxide 400 mg PO DAILY supplement 12/08/18 12/08/18 08:00 History fluticasone propionate 50 1 spray intranasal DAILY PRN nasal 04/05/20 Unknown History mcg/actuation nasal spray spray,suspension nitroglycerin 0.4 mg sublingual 0.4 mg sublingual Q5M PRN Angina 11/29/21 Unknown Rx tablet pain #25 tabs vitamin B complex 1 tab PO DAILY 03/14/22 Unknown History isosorbide mononitrate 30 mg 30 mg PO DAILY #90 tabs 07/05/23 Unknown Rx tablet,extended release 24 hr buspirone 10 mg tablet 20 mg PO BID Anxiety 08/20/23 Unknown History clopidogrel 75 mg tablet 75 mg PO DAILY #90 tabs 10/26/23 01/26/24 Rx albuterol sulfate 90 mcg/actuation 2 puff inhalation Q4H PRN 10/28/23 Unknown Rx aerosol inhaler (Ventolin HFA) shortness of breath or wheezing #18 grams clotrimazole-betamethaso ne 1 1 applic topical BID 4 weeks #45 (more content not included)... Normal [facility] Wound Ctr History AND Physic cindy 08-04-2024 Wound Ctr History & Physical [facility] [address] [place] [address] H P Exam - Wound Care 08/04/24 1527 MR#: [id number] Acct: [id number] Name: BLANCA GILL Rep #: [id number] : 1950 73 From: Lamin Ring MD PCP: Dr. Maya Pradhan, DO Status:REG [facility] Location: History of Present Illness Date of Service: 08/02/24 Chief Complaint: Venous ulceration, chronic venous insufficiency, venous hypertension with inflammation and ulceration - Left lower extremity History of Wound: This is a 73-year-old male who presented with an ulceration on the left lateral calf. The ulceration had been present for several weeks. The patient suffers from chronic swelling in his lower extremities bilaterally. He has had previous venous ulcerations in his lower extremities. A venous duplex examination performed on July 10, 2023, revealed incompetence of the right accessory saphenous vein in the mid thigh. The right great saphenous vein and small saphenous vein were competent. The left lower extremity venous system was not fully evaluated. The patient's most recent documented arterial study was performed in December 2021, which revealed no evidence of significant arterial occlusive disease in the lower extremities. The patient has previously undergone lower extremity venography, which revealed no evidence of significant venous outflow obstruction. He has mechanical pneumatic compression pumps at home, but has not recently been using them as directed. The patient has recently been hospitalized at [facility] from May 06 to May 18, 2024, for acute respiratory failure with hypoxia and hypercarbia. As a prelude to his admission, the patient had fallen, suffering a vertebral fracture of the thoracic #8 vertebrae. During the course of the patient's recent hospital admission, the patient was treated for staph pneumonia. He was also treated for metabolic encephalopathy. He is , and currently lives with his granddaughter, who assists him in his daily needs. The patient is known to be diabetic, and suffers from multiple other pre-existing medical conditions, which are listed herein. His most recent hemoglobin A1c was 8.9. The patient is not active, spending a great deal of each day sitting in idle fashion. He sleeps in a recliner at night. He denies a history of thrombophlebitis. [facility] Medical History (Updated 08/04/24 @ 21:[address] Lamin Ring MD) Swelling of left lower extremity KRISTI (obstructive sleep apnea) BPH (benign prostatic hyperplasia) Venous ulcer of left leg Venous hypertension, chronic, with ulcer and inflammation Chronic venous insufficiency 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-39.9) Acute respiratory failure with hypoxia and hypercarbia Fracture, thoracic vertebra Tinea cruris History of chronic CHF Varicose veins of both legs with edema Lower extremity edema 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 disease Carotid bruit Neck pain Shortness of breath Abnormal nuclear stress test Essential hypertension Inappropriate sexual behavior Hypomagnesemia Muscle cramps Edema Chronic diastolic (congestive) heart failure Atherosclerotic heart disease of [place] coronary artery without angina pectoris History of ST elevation myocardial infarction (STEMI) (07/11/17) Asthma IBS (irritable bowel syndrome) 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.9) Restless legs Hyperlipidemia Diabetes mellitus, type 2 Anxiety Home Medications ???Medication ???Instructions ???Recorded ???Last Taken ???Type metformin 1,000 mg tablet 1,000 mg PO BIDCM diabetes 01/17/16 01/25/24 History montelukast 10 mg tablet 10 mg PO QHS allergies 01/17/16 12/07/18 History acetaminophen 325 mg tablet 325 - 650 mg (1 - 2 x 325 mg) PO 07/14/17 Unknown Rx Q6H PRN PRN Pain aspirin 81 mg tablet,delayed 81 mg PO DAILY@0800 #30 tabs 07/14/17 01/26/24 Rx release pramipexole 1 mg tablet 2 mg PO QHS headache 05/07/18 12/08/18 21:00 History coenzyme Q10 100 mg capsule 100 mg PO DAILY supplement 12/08/18 12/04/18 History magnesium oxide 400 mg PO DAILY supplement 12/08/18 12/08/18 08:00 History fluticasone propionate 50 1 spray intranasal DAILY PRN nasal 04/05/20 Unknown History mcg/actuation nasal spray spray,suspension nitroglycerin 0.4 mg sublingual 0.4 mg sublingual Q5M PRN Angina 11/29/21 Unknown Rx tablet pain #25 tabs vitamin B complex 1 tab PO DAILY 03/14/22 Unknown History isosorbide mononitrate 30 mg 30 mg PO DAILY #90 tabs 07/05/23 Unknown Rx tablet,extended release 24 hr buspirone 10 mg tablet 20 mg PO BID Anxiety 08/20/23 Unknown History clopidogrel 75 mg tablet 75 mg PO DAILY #90 tabs 10/26/23 01/26/24 Rx albuterol sulfate 90 mcg/actuation 2 puff inhalation Q4H PRN 10/28/23 Unknown Rx aerosol inhaler (Ventolin HFA) shortness of breath or wheezing #18 grams clotrimazole-betamethaso ne 1 1 applic topical BID 4 weeks #45 03/ (more content not included)... Normal [facility] BNP,B-Type NATRIURETIC PEPTI Massimo 07-28-2024 Natriuretic peptide B (Bld) [Mass/Vol] 93.7 pg/mL Normal 0-100 [facility] Comment on above: Performed By: #### L 500.4050, [id number] #### [facility] [address] [place], [place], [address] Cardiology Visit Reporton Cardiology Visit Report [facility] [address] [place] [address] OFFICE VISIT Date of Service: 07/28/24 MR#: [id number] Acct: [id number] Name: BLANCA GILL Rep #: [id number] : 1950 Provider: Dr. Alex Crooks MD Age/Sex: 73/M Location: [facility] Status: Signed HPI HPI History of Present Illness Details: This gentleman with history of coronary artery disease status post previous interventions with drug- eluting stents to the LAD and HFpEF is here for follow-up visit. Denies any chest pains either at rest or with exertion. Denies any shortness of breath. No palpitations. No orthopnea or PND. He does complain of increased lower extremity edema for the last few weeks. 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: No Accompanied by: Self Is patient in pain?: Yes (LLE) Allergies Penicillins Allergy (Severe, Verified 07/28/24 13:26) Anaphylaxis quinine sulfate (From Quine) Allergy (Severe, Verified 07/28/24 13:26) passed out benzocaine (From Cetacaine) Allergy (Verified 07/28/24 13:26) Swelling butamben (From Cetacaine) Allergy (Verified 07/28/24 13:26) Swelling ciprofloxacin HCl (From Cipro) Allergy (Verified 07/28/24 13:26) Hives clarithromycin (From Biaxin) Allergy (Verified 07/28/24 13:26) Swelling exenatide (From Byetta) Allergy (Verified 07/28/24 13:26) Rash folic acid (From Proferrin-Forte) Allergy (Verified 07/28/24 13:26) Rash hyoscyamine sulfate (From Levsin) Allergy (Verified 07/28/24 13:26) Rash iron heme polypeptide (From Proferrin-Forte) Allergy (Verified 07/28/24 13:26) tongue swelling naproxen (From Naprosyn) Allergy (Verified 07/28/24 13:26) Rash tetracaine (From Cetacaine) Allergy (Verified 07/28/24 13:26) throat swelled shut venlafaxine HCl (From Effexor) Allergy (Verified 07/28/24 13:26) tongue swelling ezetimibe (From Zetia) Adverse Reaction (Severe, Verified 07/28/24 13:26) Myalgias, diarrhea mold Adverse Reaction (Severe, Verified 07/28/24 13:26) PT UNSURE OF REACTION niacin (From Niaspan Extended-Release) Adverse Reaction (Severe, Verified 07/28/24 13:26) PT UNSURE OF REACTION procainamide Adverse Reaction (Severe, Verified 07/28/24 13:26) Anaphylactic/Resp. Distress atorvastatin calcium (From Lipitor) Adverse Reaction (Intermediate, Verified 07/28/24 13:26) Mylagias rosuvastatin calcium (From Crestor) Adverse Reaction (Intermediate, Verified 07/28/24 13:26) Myalgias diphenhydramine HCl (From Benadryl) Adverse Reaction (Verified 07/28/24 13:26) Restlessness Medications ???Medication ???Instructions ???Recorded ???Confirmed ???Type metformin 1,000 mg tablet 1,000 mg PO BIDCM diabetes 01/17/16 07/28/24 History montelukast 10 mg tablet 10 mg PO QHS allergies 01/17/16 07/28/24 History acetaminophen 325 mg tablet 325 - 650 mg (1 - 2 x 325 mg) PO 07/14/17 07/28/24 Rx Q6H PRN PRN Pain aspirin 81 mg tablet,delayed 81 mg PO DAILY@0800 #30 tabs 07/14/17 07/28/24 Rx release pramipexole 1 mg tablet 2 mg PO QHS headache 05/07/18 07/28/24 History coenzyme Q10 100 mg capsule 100 mg PO DAILY supplement 12/08/18 07/28/24 History magnesium oxide 400 mg PO DAILY supplement 12/08/18 07/28/24 History fluticasone propionate 50 1 spray intranasal DAILY PRN nasal 04/05/20 07/28/24 History mcg/actuation nasal spray spray,suspension nitroglycerin 0.4 mg sublingual 0.4 mg sublingual Q5M PRN Angina 11/29/21 07/28/24 Rx tablet pain #25 tabs vitamin B complex 1 tab PO DAILY 03/14/22 07/28/24 History isosorbide mononitrate 30 mg 30 mg PO DAILY #90 tabs 07/05/23 07/28/24 Rx tablet,extended release 24 hr buspirone 10 mg tablet 20 mg PO BID Anxiety 08/20/23 07/28/24 History clopidogrel 75 mg tablet 75 mg PO DAILY #90 tabs 10/26/23 07/28/24 Rx albuterol sulfate 90 mcg/actuation 2 puff inhalation Q4H PRN 10/28/23 07/28/24 Rx aerosol inhaler (Ventolin HFA) shortness of breath or wheezing #18 grams clotrimazole-betamethaso ne 1 1 applic topical BID 4 weeks #45 11/17/23 07/28/24 Rx %-0.05 % topical cream grams carvedilol 25 mg tablet 25 mg PO BID #180 tabs 12/07/23 07/28/24 Rx cholecalciferol (vitamin D3) 50 2,000 unit PO DAILY supplement 12/07/23 07/28/24 History mcg (2,000 unit) capsule glyburide 1.25 mg tablet 1.25 mg PO BID 12/07/23 07/28/24 History omeprazole 40 mg capsule,delayed 40 mg PO BID 12/07/23 07/28/24 History release pravastatin 40 mg tablet 40 mg PO DAILY #90 TABLETS 02/09/24 07/28/24 Rx alprazolam 0.25 mg tablet 0.25 mg PO DAILY PRN anxiety 2 05/18/24 07/28/24 Rx days #7 tabs insulin NPH isoph (more content not included)... Normal [facility] Comprehensive Metabolic Prof ilon 07-28-2024 Albumin [Mass/Vol] 3.2 g/dL Normal 3.2-5.0 [facility] Comment on above: Performed By: #### L 500.4050, [id number] #### [facility] [address] [place], [address] Albumin/Globulin [Mass ratio] 0.8 {ratio} Low 0.9-2.4 [facility] Comment on above: Performed By: #### L 500.4050, [id number] #### [facility] [address] [place], [address] ALK P 64 U/L Normal 45-117 [facility] Comment on above: Performed By: #### L 500.4050, [id number] #### [facility] [address] [place], [address] ALT [Catalytic activity/Vol] 22 U/L Normal 16-61 [facility] Comment on above: Performed By: #### L 500.4050, [id number] #### [facility] [address] [place], [address] AST [Catalytic activity/Vol] 8 U/L Low 15-37 [facility] Comment on above: Performed By: #### L 500.4050, [id number] #### [facility] [address] [place], [address] Bilirubin [Mass/Vol] 0.50 mg/dL Normal 0.20-1.00 [facility] Comment on above: Result Comment: For patients on eltrombopag therapy, use of Dimension [place] TBIL is not recommended. Performed By: #### L 500.4050, [id number] #### [facility] [address] [place], [address] BUN/CRE 18.1 RATIO Normal 10-20 [facility] Comment on above: Performed By: #### L 500.4050, [id number] #### [facility] [address] [place], [address] CA,Total 9.2 mg/dL Normal 8.5-10.1 [facility] Comment on above: Performed By: #### L 500.4050, [id number] #### [facility] [address] [place], [address] Chloride [Moles/Vol] 100 mmol/L Normal 98-107 [facility] Comment on above: Performed By: #### L 500.4050, [id number] #### [facility] [address] [place], [address] CO2 [Moles/Vol] 36.0 mmol/L High 21.0-32.0 [facility] Comment on above: Performed By: #### L 500.4050, [id number] #### [facility] [address] [place], [address] Creatinine [Mass/Vol] 1.05 mg/dL Normal 0.70-1.30 [facility] Comment on above: Result Comment: The validity of the calculated GFR GFRAA in patients over 70 years has not been determined. Clinical correlation is essential. Performed By: #### L 500.4050, [id number] #### [facility] [address] [place], [address] EST GFR - AA 89 mL/min Normal >60 [facility] Comment on above: Result Comment: Afri can French GFR Calc Performed By: #### L 500.4050, [id number] #### [facility] [address] [place], [address] GAP 3 Low 5-15 [facility] Comment on above: Performed By: #### L 500.4050, [id number] #### [facility] [address] [place], [address] GFR/1.73 sq M.predicted among non-blacks MDRD (S/P/Bld) [Vol rate/Area] 74 mL/min/{1.73_m2} Normal >60 [facility] Comment on above: Result Comment: Non- GFR Calc Performed By: #### L 500.4050, [id number] #### [facility] [address] [place], [address] Globulin (S) [Mass/Vol] 4.0 g/dL Normal 2.2-4.2 [facility] Comment on above: Performed By: #### L 500.4050, [id number] #### [facility] [address] [place], [address] Glucose [Mass/Vol] 82 mg/dL Normal 74-106 [facility] Comment on above: Performed By: #### L 500.4050, [id number] #### [facility] [address] [place], [address] Potassium [Moles/Vol] 4.2 mmol/L Normal 3.5-5.1 [facility] Comment on above: Performed By: #### L 500.4050, [id number] #### [facility] [address] [place], [address] Sodium [Moles/Vol] 138 mmol/L Normal 136-145 [facility] Comment on above: Performed By: #### L 500.4050, [id number] #### [facility] [address] [place], [address] T PROT 7.2 g/dL Normal 6.4-8.2 [facility] Comment on above: Performed By: #### L 500.4050, [id number] #### [facility] [address] [place], [place], [address] Urea nitrogen [Mass/Vol] 19 mg/dL High 7-18 [facility] Comment on above: Performed By: #### L 500.4050, [id number] #### [facility] [address] [place], [place], [address] CNOVon 07-19-2024 [facility]OV [facility] -------- JAIROBLANCA ([id number]) 1950 M Date Time Provider Department 07/19/24 7:30 AM KODI VUONG [facility] During your visit today, we recorded the following information about you: Temperature Pulse Respiration Blood pressure 97.6 degrees 96/minute 18/minute 142/84 Weight 111.5 kg Kodi Vuong APRN.CNP 07/19/2024 7:40 AM Signed This note was created using NoteWriter. Subjective Blanca Gill is a 73 year old male. HPI Pt has a rash on the scrotum and under the foreskin. It was bleeding this morning. The rash has been off and on for the last several years. He has seen dermatology who prescribed a steroid cream but he can only use it for a week at a time. Review of Systems Constitutional: Negative for fever. Genitourinary: Negative for dysuria, scrotal swelling and testicular pain. Objective BP 142/84 Pulse 96 Temp 36.4 ?C (97.6 ?F) Resp 18 Wt 111.5 kg (245 lb 13 oz) SpO2 97% BMI 37.38 kg/m? Physical Exam Vitals and nursing note reviewed. Constitutional: General: He is not in acute distress. Appearance: Normal appearance. He is not ill-appearing. HENT: Head: Normocephalic. Mouth/Throat: Mouth: Mucous membranes are moist. Eyes: Conjunctiva/sclera: Conjunctivae normal. Pulmonary: Effort: Pulmonary effort is normal. Genitourinary: Comments: Mild excoriated skin on the scrotum. Patient is uncircumcised and under the skin at the base of the glans there is some excoriated skin with a scant amount of blood noted. Musculoskeletal: General: Normal range of motion. Cervical back: Normal range of motion. Skin: General: Skin is warm and dry. Neurological: General: No focal deficit present. Mental Status: He is alert. Psychiatric: Mood and Affect: Mood normal. Behavior: Behavior normal. Assessment and Plan ASSESSMENT/PLAN: 1. Fungal infection of the groin - ICD9: 110.3, ICD10: B35.6 -Patient has already been prescribed nystatin powder. He states he was using it for 2 weeks and then was stopping. I instructed him that he should continue to use the nystatin powder as directed daily until he follows up with dermatology August 05. Patient does wear depends and as such the area does stay moist and I informed him that I felt that he was probably just getting the fungal infection under control and he would stop using the powder and then it would return. Kodi Vuong APRN.Kodi Waggoner APRN.CNP 07/19/2024 7:37 AM Signed I feel that your symptoms today are most consistent with a fungal infection on the tip of the penis and on the scrotum. I recommend that you use the nystatin powder every day as directed until you follow-up with dermatology on the . The small amount of blood that you are seeing on your depends I feel is just related to irritated skin and should heal as you continue to use the powder. Allergies As of Date: 07/19/2024 Noted Allergy Reaction ASPERGILLUS FUMIGATUS ALLERGENIC *12/18/2010 16 - Unknown BENADRYL (DIPHENHYDRAMINE HCL) 12/18/2010 14 - Other: See Comments Comments: agitation BIAXIN (CLARITHROMYCIN) 12/18/2010 7 - Swelling 12 - Shortness of Breath BYETTA (EXENATIDE) 10/14/2013 7 - Swelling 8 - GI Upset 14 - Other: See Comments Comments: aching in joints LEVSIN (HYOSCYAMINE SULFATE) 12/18/2010 16 - Unknown LIDOCAINE 10/14/2013 10 - Anaphylaxis NAPROSYN (NAPROXEN) 12/18/2010 7 - Swelling 9 - Itching PENICILLINS 12/18/2010 10 - Anaphylaxis QUININE HCL 12/18/2010 16 - Unknown Date Reviewed: 07/19/2024 Reviewed by: Kodi Vuong APRN.MANAGER GAME - Fully Assessed Reason for Visit: Rash [1087] Cmt: sore in groin area x 1 year given steriod cream Primary Visit Diagnosis:Fungal infection of the groin [B35.6] Prescriptions as of 07/19/2024 - acetaminophen 325 mg cap Take by mouth as needed. - furosemide (LASIX) 40 mg/4 mL soln - 5-fluorouracil 2.5% acyclovir 5% diclofenac 1% salicylic acid 10% topical (CPD) Apply 0.25-0.5 g to affected area two times a day. - magnesium oxide (MAG-OX) 400 mg (241.3 mg magnesium) tablet Take 400 mg by mouth once daily. - nitroglycerin sublingual (NITROSTAT) 0.4 mg SL tablet Dissolve 0.4 mg under the tongue every 5 minutes as needed for chest pain. - Omeprazole-Sodium Bicarbonate 40-1,680 mg pack Take by mouth. - tamsulosin (FLOMAX) 0.4 mg Take 1 capsule by mouth two times a day. - ACCU-CHEK LINDSAY PLUS TEST STRP test strip - ACCU-CHEK GUIDE ME GLUCOSE MTR USE DIRECTED THREE TIMES DAILY - NOVOLIN N NPH U-100 INSULIN 100 unit/mL injection INJECT 40 UNITS SUBCUTANEOUSLY IN THE MORNING AND IN THE EVENING - isosorbide mononitrate ER (IMDUR) 30 mg 24 hr tablet Take 30 mg by mouth once daily. - ubidecarenone Q-10 (COENZYME Q-10) 10 mg cap Take by mouth twice daily. - carvedilol (COREG) 3.125 mg tablet Take 3.125 mg by mouth twice daily with meals. - C (more content not included)... Normal [facility] UA DIP, URINE (POC)on 2023 BILIRUBIN UA (POCT) Negative Negative [facility] CLARITY UA (POCT) Clear [facility] [place] COLOR UA (POCT) Yellow [facility] GLUCOSE UA (POCT) Negative Negative mg/dL [facility] Hemoglobin Ql (U) Negative Negative [facility] [place] Interpretation and review of laboratory results Abnormal [facility] KETONE UA (POCT) Negative Negative mg/dL [facility] LEUKOCYTES UA (POCT) Negative [facility] NITRITE [facility]A (POCT) Negative Negative [facility] [place] PH UA (POCT) 8.5 Abnormal 4.5 - 8.0 [facility] Protein Ql (U) Trace Abnormal Negative mg/dL [facility] SPECIFIC GRAVITY UA (POCT) 1.015 1.005 - 1.030 [facility] UROBILINOGEN UA (POCT) 0.2 Lovely l E.U./dL [facility] Location:[facility], [address] [place] [address], [address] [facility] POINT OF CARE [facility] UA DIP, URINE (POC)on 2023 BILIRUBIN UA (POCT) Negative Negative [facility] CLARITY UA (POCT) Clear [facility] [place] COLOR UA (POCT) Yellow [facility] GLUCOSE UA (POCT) Negative Negative mg/dL [facility] Hemoglobin Ql (U) Negative Negative [facility] [place] KETONE UA (POCT) Negative Negative mg/dL [facility] LEUKOCYTES UA (POCT) Negative Negative [facility] NITRITE UA (POCT) Negative Negative [facility] [place] PH UA (POCT) 6.5 4.5 - 8.0 [facility] Protein Ql (U) Negative Negative mg/dL [facility] SPECIFIC GRAVITY UA (POCT) 1.015 1.005 - 1.030 [facility] UROBILINOGEN UA (POCT) 0.2 Lovely l E.U./dL [facility] Location:[facility], [address] [address], [address] [facility] POINT OF CARE [facility] LABORATORYOrdered By: SYSTEM SYSTEM on 02-01-2024 Prostate specific Ag [Mass/Vol] 1.47 ng/mL Normal 0.00 - 4.00 ng/mL AO ADM SS PSAon 02-01-2024 Prostate Specific Antigen 1.47 ng/mL Normal 0.00-4.00 [facility] ([place]) Comment on above: Performed By: #### P #### [id number] [place], [place] [address] Absolute lymphocyte countOrd ered By: Carlos Eduardo Hinds on 01-14-2024 Lymphocytes Auto (Unsp spec) [#/Vol] 2.25 10*3/uL 0.83-4.51 [facility] Automated lymphocyte count a s percentage of total leukocytesOrdered By: Carlos Eduardo Hinds on 01-14-2024 Lymphocytes/100 WBC Auto (Unsp spec) 25.3 % 19-41 [facility] Basophil percentageOrdered B y: Carlos Eduardo Hinds on 01-14-2024 Basophils/100 WBC (Bld) 0.4 % 0-1 [facility] Chloride [Moles/Vol] 94 mmol/L 98-107 [facility] Eosinophils/100 WBC (Bld) 2.6 % 0-5 [facility] Glucose [Mass/Vol] 95 mg/dL 74-106 [facility] Hemoglobin (Bld) [Mass/Vol] 12.9 g/dL 13.0-16.5 [facility] Monocytes/100 WBC (Bld) 12.1 % 0-10 [facility] Neutrophils (Bld) [#/Vol] 5.2 10*3/uL 2.0-7.7 [facility] Neutrophils/100 WBC (Bld) 58.9 % 47-70 [facility] Potassium [Moles/Vol] 3.9 mmol/L 3.5-5.1 [facility] Sodium [Moles/Vol] 134 mmol/L 136-145 [facility] WBC (Bld) [#/Vol] 8.9 10*3/uL 4.4-11.0 [facility] Determination of erythrocyte mean corpuscular volume (MCV)Ordered By: Carlos Eduardo Hinds on 01-14-2024 MCV (RBC) [Entitic vol] 85.4 fL 80-94 [facility] Erythrocyte distribution wid th ratioOrdered By: Carlos Eduardo Hinds on 01-14-2024 Erythrocyte distribution width (RBC) [Ratio] 16.2 % 11.6-14.6 [facility] Erythrocyte distribution wid th standard deviationOrdered By: Carlos Eduardo Hinds on 01-14-2024 Erythrocyte distribution width (RBC) [Entitic vol] 51.2 fL 35.1-43.9 [facility] Hematocrit Auto (Bld) [Volum e fraction]Ordered By: Carlos Eduardo Hinds on 01-14-2024 Hematocrit (Bld) [Volume fraction] 41.6 % 40-54 [facility] Immature granulocytes/100 WB C Auto (Bld)Ordered By: Carlos Eduardo Hinds on 01-14-2024 Immature granulocytes/100 WBC (Bld) 0.700 % 0.0-0.9 [facility] Comment on above: IG% - Immature Granu locytes (promyelocytes, myelocytes and metamyelocytes) > 1% indicates that a LEFT SHIFT is Present. Laboratory - Chemistry and C hemistry - challengeOrdered By: Carlos Eduardo Hinds on 01-14-2024 CO2 [Moles/Vol] 37.0 mmol/L 21.0-32.0 [facility] Urea nitrogen/Creatinine [Mass ratio] 15.7 mg/mg 10-20 [facility] Laboratory - Hematology and Cell countsOrdered By: Carlos Eduardo Hinds on 01-14-2024 MCH (RBC) [Entitic mass] 26.5 pg 27.0-32.0 [facility] MCHC (RBC) [Mass/Vol] 31.0 g/dL 32-36 [facility] Nucleated RBC/100 WBC (Bld) [Ratio] 0 % 0-5 [facility] Platelet mean volume (Bld) [Entitic vol] 10.4 fL 6.2-12.0 [facility] Platelets (Bld) [#/Vol] 269 10*3/uL 150-450 [facility] No Panel InformationOrdered By: Carlos Eduardo Hinds on 01-14-2024 Estimated GFR (MDRD) Amer 76 mL/min >60 [facility] Comment on above: GFR Calc Estimated GFR (MDRD) Non-Af Amer 63 mL/min >60 [facility] Comment on above: Non- GFR Calc RBC Auto (Bld) [#/Vol]Ordere d By: Carlos Eduardo Hinds on 01-14-2024 RBC (Bld) [#/Vol] 4.87 10*6/uL 4.6-6.2 [facility] Serum or plasma calcium ale urement (mass/volume)Ordered By: Carlos Eduardo Hinds on 01-14-2024 Calcium [Mass/Vol] 9.4 mg/dL 8.5-10.1 [facility] Serum or plasma creatinine m easurement (mass/volume)Ordered By: Carlos Eduardo Hinds on 01-14-2024 Creatinine [Mass/Vol] 1.21 mg/dL 0.70-1.30 [facility] Comment on above: The validity of the calculated GFR & GFRAA in patients over 70 years has not been determined. Clinical correlation is essential. Serum or plasma urea nitroge n measurement (mass/volume)Ordered By: Carlos Eduardo Hinds on 01-14-2024 Urea nitrogen [Mass/Vol] 19 mg/dL 7-18 [facility] Thin prep Papanicolaou smear with manual screeningOrdered By: Carlos Eduardo Hinds on 01-14-2024 Thin prep Papanicolaou smear with manual screening 3 5-15 [facility] PSAon 12-18-2023 Prostate Specific Antigen 8.07 ng/mL High 0.00-4.00 [facility] ([place]) Comment on above: Performed By: #### P SA #### [address] [address] Basophil percentageOrdered B y: Alex Valeriy on 12-10-2023 Bilirubin [Mass/Vol] 0.60 mg/dL 0.20-1.00 [facility] Comment on above: For patients on eltr ombopag therapy, use of Dimension [place] TBIL is not recommended. Chloride [Moles/Vol] 100 mmol/L 98-107 [facility] Cholesterol [Mass/Vol] 194 mg/dL <200 [facility] Comment on above: <200 mg/dL Desirable 200-240 mg/dL Borderline >240 mg/dL High Risk Glucose [Mass/Vol] 115 mg/dL 74-106 [facility] Comment on above: Fasting Glucose resu lt from 100 to 125 mg/dL suggests IMPAIRED HOMEOSTASIS per A.D.A. criteria. Potassium [Moles/Vol] 4.4 mmol/L 3.5-5.1 [facility] Protein [Mass/Vol] 7.3 g/dL 6.4-8.2 [facility] Sodium [Moles/Vol] 136 mmol/L 136-145 [facility] Triglyceride [Mass/Vol] 95 mg/dL <199 [facility] Comment on above: The drugs N-Acetylcy steine and Metamizole may falsely depress this assay.Serum Triglycerides Reference Interval Normal <150 mg/dL Borderline high 150 - 199 mg/dL High 200 - 499 mg/dL Very High > or = 500 mg/dL Laboratory - Chemistry and C hemistry - challengeOrdered By: Alex Crooks on 12-10-2023 Albumin/Globulin [Mass ratio] 0.8 {ratio} 0.9-2.4 [facility] ALP [Catalytic activity/Vol] 52 U/L 45-117 [facility] ALT [Catalytic activity/Vol] 24 U/L 16-61 [facility] Cholesterol in HDL [Mass/Vol] 45 mg/dL >40 [facility] Comment on above: The drugs N-Acetylcy steine and Metamizole may falsely depress this assay. Reference Range HDL <40 mg/dL Low HDL Cholesterol HDL >or= 60 mg/dL High HDL Cholesterol Cholesterol in LDL [Mass/Vol] 130 mg/dL 0-130 [facility] CO2 [Moles/Vol] 33.0 mmol/L 21.0-32.0 [facility] Globulin (S) [Mass/Vol] 4.1 g/dL 2.2-4.2 [facility] Natriuretic peptide B (Bld) [Mass/Vol] 109.5 pg/mL 0-100 [facility] Urea nitrogen/Creatinine [Mass ratio] 13.4 mg/mg 10-20 [facility] No Panel InformationOrdered By: Alex Crooks on 12-10-2023 Estimated GFR (MDRD) Amer 77 mL/min >60 [facility] Comment on above: GFR Calc Estimated GFR (MDRD) Non-Af Amer 64 mL/min >60 [facility] Comment on above: Non- GFR Calc VLDL Cholesterol 19 mg/dL 5-40 [facility] Serum or plasma calcium ale urement (mass/volume)Ordered By: Alex Crooks on 12-10-2023 Calcium [Mass/Vol] 9.0 mg/dL 8.5-10.1 [facility] Serum or plasma creatinine m easurement (mass/volume)Ordered By: Alex Crooks on 12-10-2023 Creatinine [Mass/Vol] 1.19 mg/dL 0.70-1.30 [facility] Comment on above: The validity of the calculated GFR & GFRAA in patients over 70 years has not been determined. Clinical correlation is essential. Serum or plasma urea nitroge n measurement (mass/volume)Ordered By: Alex Crooks on 12-10-2023 Urea nitrogen [Mass/Vol] 16 mg/dL 7-18 [facility] Thin prep Papanicolaou smear with manual screeningOrdered By: Alexgenevieve Crooks on 12-10-2023 Thin prep Papanicolaou smear with manual screening 3.2 g/dL 3.2-5.0 [facility] Thin prep Papanicolaou smear with manual screening 13 U/L 15-37 [facility] Thin prep Papanicolaou smear with manual screening 3 5-15 [facility] Basophil percentageOrdered B y: Chema Payan on 09-30-2023 Chloride [Moles/Vol] 97 mmol/L 98-107 [facility] Glucose [Mass/Vol] 105 mg/dL 74-106 [facility] Comment on above: Fasting Glucose resu lt from 100 to 125 mg/dL suggests IMPAIRED HOMEOSTASIS per A.D.A. criteria. Hemoglobin (Bld) [Mass/Vol] 12.4 g/dL 13.0-16.5 [facility] Potassium [Moles/Vol] 4.1 mmol/L 3.5-5.1 [facility] Sodium [Moles/Vol] 136 mmol/L 136-145 [facility] WBC (Bld) [#/Vol] 6.9 10*3/uL 4.4-11.0 [facility] Determination of erythrocyte mean corpuscular volume (MCV)Ordered By: Chema Payan on 09-30-2023 MCV (RBC) [Entitic vol] 83.7 fL 80-94 [facility] Erythrocyte distribution wid th ratioOrdered By: Chema Payan on 09-30-2023 Erythrocyte distribution width (RBC) [Ratio] 18.1 % 11.6-14.6 [facility] Erythrocyte distribution wid th standard deviationOrdered By: Chema Payan on 09-30-2023 Erythrocyte distribution width (RBC) [Entitic vol] 54.8 fL 35.1-43.9 [facility] Hematocrit Auto (Bld) [Volum e fraction]Ordered By: Chema Payan on 09-30-2023 Hematocrit (Bld) [Volume fraction] 41.5 % 40-54 [facility] Laboratory - Chemistry and C hemistry - challengeOrdered By: Chema Payan on 09-30-2023 CO2 [Moles/Vol] 37.0 mmol/L 21.0-32.0 [facility] Urea nitrogen/Creatinine [Mass ratio] 15.4 mg/mg 10-20 [facility] Laboratory - Hematology and Cell countsOrdered By: Chema Payan on 09-30-2023 MCH (RBC) [Entitic mass] 25.0 pg 27.0-32.0 [facility] MCHC (RBC) [Mass/Vol] 29.9 g/dL 32-36 [facility] Platelets (Bld) [#/Vol] 326 10*3/uL 150-450 [facility] No Panel InformationOrdered By: Chema Payan on 09-30-2023 Estimated Creatinine Clearance Calc 76.98 ml/min [facility] Estimated GFR (MDRD) Amer 90 mL/min >60 [facility] Comment on above: GFR Calc Estimated GFR (MDRD) Non-Af Amer 75 mL/min >60 [facility] Comment on above: Non- GFR Calc Platelet mean volume Julien-Ec ker (Bld) [Entitic vol]Ordered By: Chema Payan on 09-30-2023 Platelet mean volume (Bld) [Entitic vol] 9.2 fL 6.2-12.0 [facility] RBC Auto (Bld) [#/Vol]Ordere d By: Chema Payan on 09-30-2023 RBC (Bld) [#/Vol] 4.96 10*6/uL 4.6-6.2 [facility] Serum or plasma calcium ale urement (mass/volume)Ordered By: Chema Payan on 09-30-2023 Calcium [Mass/Vol] 9.4 mg/dL 8.5-10.1 [facility] Serum or plasma creatinine m easurement (mass/volume)Ordered By: Chema Payan on 09-30-2023 Creatinine [Mass/Vol] 1.04 mg/dL 0.70-1.30 [facility] Comment on above: The validity of the calculated GFR & GFRAA in patients over 70 years has not been determined. Clinical correlation is essential. Serum or plasma urea nitroge n measurement (mass/volume)Ordered By: Chema Payan on 09-30-2023 Urea nitrogen [Mass/Vol] 16 mg/dL 7-18 [facility] Thin prep Papanicolaou smear with manual screeningOrdered By: Chema Payan on 09-30-2023 Thin prep Papanicolaou smear with manual screening 2 5-15 [facility] Absolute lymphocyte countOrd ered By: Pavan Nolan on 07-30-2023 Lymphocytes Auto (Unsp spec) [#/Vol] 1.25 10*3/uL 0.83-4.51 [facility] Basophil percentageOrdered B y: Pavan Nolan on 07-30-2023 Basophils/100 WBC (Bld) 0.7 % 0-1 [facility] Bilirubin [Mass/Vol] 0.40 mg/dL 0.20-1.00 [facility] Comment on above: For patients on eltr ombopag therapy, use of Dimension [place] TBIL is not recommended. Chloride [Moles/Vol] 84 mmol/L 98-107 [facility] Cholesterol [Mass/Vol] 143 mg/dL <200 [facility] Comment on above: <200 mg/dL Desirable 200-240 mg/dL Borderline >240 mg/dL High Risk Eosinophils/100 WBC (Bld) 3.4 % 0-5 [facility] Glucose [Mass/Vol] 137 mg/dL 74-106 [facility] Comment on above: Fasting Glucose resu lt greater than or equal to 126 mg/dL suggests DIABETES MELLITUS per A.D.A. criteria. Neutrophils (Bld) [#/Vol] 4.3 10*3/uL 2.0-7.7 [facility] Neutrophils/100 WBC (Bld) 62.4 % 47-70 [facility] Potassium [Moles/Vol] 4.0 mmol/L 3.5-5.1 [facility] Comment on above: Slight Hemolysis, Re sult may be falsely increased. Protein [Mass/Vol] 7.5 g/dL 6.4-8.2 [facility] Sodium [Moles/Vol] 129 mmol/L 136-145 [facility] Triglyceride [Mass/Vol] 103 mg/dL <199 [facility] Comment on above: The drugs N-Acetylcy steine and Metamizole may falsely depress this assay.Serum Triglycerides Reference Interval Normal <150 mg/dL Borderline high 150 - 199 mg/dL High 200 - 499 mg/dL Very High > or = 500 mg/dL WBC (Bld) [#/Vol] 7.0 10*3/uL 4.4-11.0 [facility] Blood erythrocytes count (nu mber/volume)Ordered By: Pavan Nolan on 07-30-2023 RBC (Bld) [#/Vol] 5.06 10*6/uL 4.6-6.2 [facility] Blood hemoglobin measurement (mass/volume)Ordered By: Pavan Nolan on 07-30-2023 Hemoglobin (Bld) [Mass/Vol] 12.7 g/dL 13.0-16.5 [facility] Blood lymphocytes/100 leukoc ytesOrdered By: Pavan Nolan on 07-30-2023 Lymphocytes/100 WBC (Bld) 18.0 % 19-41 [facility] Blood monocytes/100 leukocyt esOrdered By: Pavan Nolan on 07-30-2023 Monocytes/100 WBC (Bld) 15.2 % 0-10 [facility] Blood platelet mean volumeOr dered By: Pavan Nolan on 07-30-2023 Platelet mean volume (Bld) [Entitic vol] 10.0 fL 6.2-12.0 [facility] Determination of erythrocyte mean corpuscular volume (MCV)Ordered By: Pavan Nolan on 07-30-2023 MCV (RBC) [Entitic vol] 82.8 fL 80-94 [facility] Erythrocyte sedimentation ra teOrdered By: Pavan Nolan on 07-30-2023 ESR (Bld) [Velocity] 87 mm/h 0-20 [facility] Hematocrit Auto (Bld) [Volum e fraction]Ordered By: Pavan Nolan on 07-30-2023 Hematocrit (Bld) [Volume fraction] 41.9 % 40-54 [facility] Laboratory - Chemistry and C hemistry - challengeOrdered By: Pavan Nolan on 07-30-2023 ALP [Catalytic activity/Vol] 54 U/L 45-117 [facility] ALT [Catalytic activity/Vol] 37 U/L 16-61 [facility] CO2 [Moles/Vol] 40.0 mmol/L 21.0-32.0 [facility] Globulin (S) [Mass/Vol] 4.8 g/dL 2.2-4.2 [facility] Urea nitrogen/Creatinine [Mass ratio] 11.1 mg/mg 10-20 [facility] Laboratory - Hematology and Cell countsOrdered By: Pavan Nolan on 07-30-2023 Erythrocyte distribution width (RBC) [Entitic vol] 46.8 fL 35.1-43.9 [facility] Erythrocyte distribution width (RBC) [Ratio] 15.6 % 11.6-14.6 [facility] Immature granulocytes/100 WBC (Bld) 0.300 % 0.0-0.9 [facility] Comment on above: IG% - Immature Granu locytes (promyelocytes, myelocytes and metamyelocytes) > 1% indicates that a LEFT SHIFT is Present. MCH (RBC) [Entitic mass] 25.1 pg 27.0-32.0 [facility] Nucleated RBC/100 WBC (Bld) [Ratio] 0 % 0-5 [facility] MCHC Auto (RBC) [Mass/Vol]Or dered By: Pavan Nolan on 07-30-2023 MCHC (RBC) [Mass/Vol] 30.3 g/dL 32-36 [facility] No Panel InformationOrdered By: Pavan Nolan on 07-30-2023 Estimated GFR (MDRD) Amer 96 mL/min >60 [facility] Comment on above: GFR Calc Estimated GFR (MDRD) Non-Af Amer 79 mL/min >60 [facility] Comment on above: Non- GFR Calc Platelets bldOrdered By: Gerson clarklivia Nolan on 07-30-2023 Platelets (Bld) [#/Vol] 309 10*3/uL 150-450 [facility] Serum or plasma albumin ale urement (mass/volume)Ordered By: Pavan Nolan on 07-30-2023 Albumin [Mass/Vol] 2.7 g/dL 3.2-5.0 [facility] Serum or plasma albumin/glob ulin mass ratioOrdered By: Pavan Nolan on 07-30-2023 Albumin/Globulin [Mass ratio] 0.6 {ratio} 0.9-2.4 [facility] Serum or plasma calcium ale urement (mass/volume)Ordered By: Pavan Nolan on 07-30-2023 Calcium [Mass/Vol] 8.8 mg/dL 8.5-10.1 [facility] Serum or plasma cholesterol in HDL measurement (mass/volume)Ordered By: Pavan Nolan on 07-30-2023 Cholesterol in HDL [Mass/Vol] 38 mg/dL >40 [facility] Comment on above: The drugs N-Acetylcy steine and Metamizole may falsely depress this assay. Reference Range HDL <40 mg/dL Low HDL Cholesterol HDL >or= 60 mg/dL High HDL Cholesterol Serum or plasma cholesterol in VLDL measurement (mass/volume)Ordered By: Pavan Nolan on 07-30-2023 Cholesterol in VLDL [Mass/Vol] 21 mg/dL 5-40 [facility] Serum or plasma creatinine m easurement (mass/volume)Ordered By: Pavan Nolan on 07-30-2023 Creatinine [Mass/Vol] 0.99 mg/dL 0.70-1.30 [facility] Comment on above: The validity of the calculated GFR & GFRAA in patients over 70 years has not been determined. Clinical correlation is essential. Serum or plasma low density lipoprotein (LDL) cholesterol measurement (mass/volume)Ordered By: Pavan Nolan on 07-30-2023 Cholesterol in LDL [Mass/Vol] 84 mg/dL 0-130 [facility] Serum or plasma urea nitroge n measurement (mass/volume)Ordered By: Pavan Nolan on 07-30-2023 Urea nitrogen [Mass/Vol] 11 mg/dL 7-18 [facility] Thin prep Papanicolaou smear with manual screeningOrdered By: Bolivarskiplivia Nolan on 07-30-2023 Thin prep Papanicolaou smear with manual screening 38 U/L 15-37 [facility] Comment on above: Slight Hemolysis, Re sult may be falsely increased. Thin prep Papanicolaou smear with manual screening 5 5-15 [facility] Basophil percentageOrdered B y: Stewart Dukes on 07-28-2023 Chloride [Moles/Vol] 86 mmol/L 98-107 [facility] Glucose [Mass/Vol] 153 mg/dL 74-106 [facility] Comment on above: Fasting Glucose resu lt greater than or equal to 126 mg/dL suggests DIABETES MELLITUS per A.D.A. criteria. Potassium [Moles/Vol] 3.8 mmol/L 3.5-5.1 [facility] Sodium [Moles/Vol] 130 mmol/L 136-145 [facility] COVID-19 virus antigen assay Ordered By: Chema Zambrano on 07-28-2023 SARS-CoV-2 (COVID-19) Ag IA.rapid Ql (Resp) [facility] Glucose Glucometer (BldC) [M ass/Vol]Ordered By: Chema Zambrano on 07-28-2023 Glucose [Mass/Vol] 156 mg/dL 74-106 [facility] Comment on above: MANAGEMENT OF PATIEN T CARE PER NURSING PROTOCOL Laboratory - Chemistry and C hemistry - challengeOrdered By: Stewart Dukes on 07-28-2023 CO2 [Moles/Vol] 38.0 mmol/L 21.0-32.0 [facility] Urea nitrogen/Creatinine [Mass ratio] 16.1 mg/mg 10-20 [facility] No Panel InformationOrdered By: Stewart Dukes on 07-28-2023 Estimated Creatinine Clearance Calc 75.34 ml/min [facility] Estimated GFR (MDRD) Amer 111 mL/min >60 [facility] Comment on above: GFR Calc Estimated GFR (MDRD) Non-Af Amer 92 mL/min >60 [facility] Comment on above: Non- GFR Calc Serum or plasma calcium ale urement (mass/volume)Ordered By: Stewart Dukes on 07-28-2023 Calcium [Mass/Vol] 8.5 mg/dL 8.5-10.1 [facility] Serum or plasma creatinine m easurement (mass/volume)Ordered By: Stewart Dukes on 07-28-2023 Creatinine [Mass/Vol] 0.87 mg/dL 0.70-1.30 [facility] Comment on above: The validity of the calculated GFR & GFRAA in patients over 70 years has not been determined. Clinical correlation is essential. Serum or plasma urea nitroge n measurement (mass/volume)Ordered By: Stewart Dukes on 07-28-2023 Urea nitrogen [Mass/Vol] 14 mg/dL 7-18 [facility] Thin prep Papanicolaou smear with manual screeningOrdered By: Stewart Dukes on 07-28-2023 Thin prep Papanicolaou smear with manual screening 6 5-15 [facility] Absolute lymphocyte countOrd ered By: Stewart Dukes on 07-26-2023 Lymphocytes Auto (Unsp spec) [#/Vol] 1.14 10*3/uL 0.83-4.51 [facility] Basophil percentageOrdered B y: Stewart Dukes on 07-26-2023 Basophils/100 WBC (Bld) 0.3 % 0-1 [facility] Eosinophils/100 WBC (Bld) 3.1 % 0-5 [facility] Neutrophils (Bld) [#/Vol] 5.9 10*3/uL 2.0-7.7 [facility] Neutrophils/100 WBC (Bld) 66.4 % 47-70 [facility] WBC (Bld) [#/Vol] 9.0 10*3/uL 4.4-11.0 [facility] Blood erythrocytes count (nu mber/volume)Ordered By: Stewart Dukes on 07-26-2023 RBC (Bld) [#/Vol] 4.62 10*6/uL 4.6-6.2 [facility] Blood hemoglobin measurement (mass/volume)Ordered By: Stewart Dukes on 07-26-2023 Hemoglobin (Bld) [Mass/Vol] 11.8 g/dL 13.0-16.5 [facility] Blood lymphocytes/100 leukoc ytesOrdered By: Stewart Dukes on 07-26-2023 Lymphocytes/100 WBC (Bld) 12.7 % 19-41 [facility] Blood manual differential co mment interpretation (narrative result)Ordered By: Stewart Dukes on 07-26-2023 Manual differential comment Boom (Bld) [Interp] SCANNED [facility] Blood monocytes/100 leukocyt esOrdered By: Stewart Dukes on 07-26-2023 Monocytes/100 WBC (Bld) 17.2 % 0-10 [facility] Blood platelet mean volumeOr dered By: Stewart Dukes on 07-26-2023 Platelet mean volume (Bld) [Entitic vol] 9.4 fL 6.2-12.0 [facility] Determination of erythrocyte mean corpuscular volume (MCV)Ordered By: Stewart Dukes on 07-26-2023 MCV (RBC) [Entitic vol] 85.9 fL 80-94 [facility] Hematocrit Auto (Bld) [Volum e fraction]Ordered By: Stewart Dukes on 07-26-2023 Hematocrit (Bld) [Volume fraction] 39.7 % 40-54 [facility] Laboratory - Hematology and Cell countsOrdered By: Stewart Dukes on 07-26-2023 Erythrocyte distribution width (RBC) [Entitic vol] 47.5 fL 35.1-43.9 [facility] Erythrocyte distribution width (RBC) [Ratio] 15.1 % 11.6-14.6 [facility] Immature granulocytes/100 WBC (Bld) 0.300 % 0.0-0.9 [facility] Comment on above: IG% - Immature Granu locytes (promyelocytes, myelocytes and metamyelocytes) > 1% indicates that a LEFT SHIFT is Present. MCH (RBC) [Entitic mass] 25.5 pg 27.0-32.0 [facility] Nucleated RBC/100 WBC (Bld) [Ratio] 0 % 0-5 [facility] MCHC Auto (RBC) [Mass/Vol]Or dered By: Stewart Dukes on 07-26-2023 MCHC (RBC) [Mass/Vol] 29.7 g/dL 32-36 [facility] Platelets bldOrdered By: Edy Dukes on 07-26-2023 Platelets (Bld) [#/Vol] 275 10*3/uL 150-450 [facility] Serum or plasma trough vanco mycin levelOrdered By: Emmett Guerrero on 07-25-2023 Vancomycin trough [Mass/Vol] 16.4 ug/mL 5.0-15.0 [facility] Comment on above: VANCOMYCIN STANDARED DRUG THERAPY TROUGH LEVEL: 5.0 - 15.0 mg/L VANCOMYCIN HIGH INTENSITY THERAPY TROUGH LEVEL: 15.0 - 20.0 mg/L High Intensity therapy recommended for serious lifethreatening infections include:- Mpyqewtjwf-Yfpbbiexjcdd-Mvgihhjcb (Ventilator/Healtcare Associated)-Sepsis PLEASE CONTACT PHARMACY SERVICES (#[id number]) FOR INTERPRETATIONOF RESULTS. Serum or plasma vancomycin m easurement (mass/volume)Ordered By: Emmett Guerrero on 07-24-2023 Vancomycin [Mass/Vol] 15.1 ug/mL 0.0-15.0 [facility] Comment on above: VANCOMYCIN STANDARD DRUG THERAPY: CRITICAL VALUE IS > 15.0 mg/L VANCOMYCIN HIGH INTENSITY THERAPY: CRITICAL VALUE IS > 20.0 mg/L PLEASE CONTACT PHARMACY SERVICES (#[id number]) FOR INTERPRETATIONOF RESULTS. THIS RESULT DOES NOT REPRESENT A PEAK OR TROUGHLEVEL FOR THIS DRUG. Bacteria identified Cx Nom ( Wound)Ordered By: Stewart Dukes on 07-23-2023 Wound Culture Serratia marcescens [facility] Wound Culture Negative [facility] Basophil percentageOrdered B y: Emmett Guerrero on 07-23-2023 Bilirubin [Mass/Vol] 1.00 mg/dL 0.20-1.00 [facility] Comment on above: For patients on eltr ombopag therapy, use of Dimension [place] TBIL is not recommended. Protein [Mass/Vol] 7.1 g/dL 6.4-8.2 [facility] Gram stain for investigation of transfusion reactionOrdered By: Stewart Dukes on 07-23-2023 Microscopic observation Gram stain Nom (Unsp spec) [facility] Laboratory - Chemistry and C hemistry - challengeOrdered By: Emmett Guerrero on 07-23-2023 ALP [Catalytic activity/Vol] 62 U/L 45-117 [facility] ALT [Catalytic activity/Vol] 31 U/L 16-61 [facility] Globulin (S) [Mass/Vol] 4.1 g/dL 2.2-4.2 [facility] No Panel InformationOrdered By: Stewart Dukes on 07-23-2023 Methicillin-Resist S.aureus DNA PCR Negative Negative [facility] Serum or plasma albumin ale urement (mass/volume)Ordered By: Emmett Guerrero on 07-23-2023 Albumin [Mass/Vol] 3.0 g/dL 3.2-5.0 [facility] Serum or plasma albumin/glob ulin mass ratioOrdered By: Emmett Guerrero on 07-23-2023 Albumin/Globulin [Mass ratio] 0.7 {ratio} 0.9-2.4 [facility] Staphylococcus aureus DNA de tection by probe and target amplification methodOrdered By: Stewart Dukes on 07-23-2023 S. aureus DNA CHRISTI+probe Ql (Unsp spec) Positive Negative [facility] Thin prep Papanicolaou smear with manual screeningOrdered By: Emmett Guerrero on 07-23-2023 Thin prep Papanicolaou smear with manual screening 18 U/L 15-37 [facility] Thin prep Papanicolaou smear with manual screening 273 mOsm/KG 280-301 [facility] Urine osmolality measurement Ordered By: Emmett Guerrero on 07-23-2023 Osmolality (U) [Osmolality] 217 mOsm/KG >50 [facility] Comment on above: Normal Urine Referen ce Ranges Random: 50 - 1200 mOsm/kg H20 depending on fluid intake Random: >850 mOsm/kg after 12 hour fluid restriction 24 hour: ~300 - 900 mOsm/kg H2O Absolute lymphocyte countOrd ered By: Claude Boyd on 07-22-2023 Lymphocytes Auto (Unsp spec) [#/Vol] 1.44 10*3/uL 0.83-4.51 [facility] Basophil percentageOrdered B y: Claude Boyd on 07-22-2023 Basophils/100 WBC (Bld) 0.4 % 0-1 [facility] Chloride [Moles/Vol] 88 mmol/L 98-107 [facility] Eosinophils/100 WBC (Bld) 2.6 % 0-5 [facility] Glucose [Mass/Vol] 111 mg/dL 74-106 [facility] Comment on above: Fasting Glucose resu lt from 100 to 125 mg/dL suggests IMPAIRED HOMEOSTASIS per A.D.A. criteria. Lactate [Moles/Vol] 0.9 mmol/L 0.4-2.0 [facility] Neutrophils (Bld) [#/Vol] 5.0 10*3/uL 2.0-7.7 [facility] Neutrophils/100 WBC (Bld) 64.1 % 47-70 [facility] Potassium [Moles/Vol] 3.9 mmol/L 3.5-5.1 [facility] Sodium [Moles/Vol] 123 mmol/L 136-145 [facility] WBC (Bld) [#/Vol] 7.8 10*3/uL 4.4-11.0 [facility] Blood erythrocytes count (nu mber/volume)Ordered By: Claude Boyd on 07-22-2023 RBC (Bld) [#/Vol] 4.89 10*6/uL 4.6-6.2 [facility] Blood hemoglobin measurement (mass/volume)Ordered By: Claude Boyd on 07-22-2023 Hemoglobin (Bld) [Mass/Vol] 12.9 g/dL 13.0-16.5 [facility] Blood lymphocytes/100 leukoc ytesOrdered By: Claude Boyd on 07-22-2023 Lymphocytes/100 WBC (Bld) 18.4 % 19-41 [facility] Blood monocytes/100 leukocyt esOrdered By: Claude Boyd on 07-22-2023 Monocytes/100 WBC (Bld) 14.2 % 0-10 [facility] Blood platelet mean volumeOr dered By: Claude Boyd on 07-22-2023 Platelet mean volume (Bld) [Entitic vol] 9.2 fL 6.2-12.0 [facility] Determination of erythrocyte mean corpuscular volume (MCV)Ordered By: Claude Boyd on 07-22-2023 MCV (RBC) [Entitic vol] 82.4 fL 80-94 [facility] Glucose Glucometer (BldC) [M ass/Vol]Ordered By: Emmett Guerrero on 07-22-2023 Glucose [Mass/Vol] 108 mg/dL 74-106 [facility] Comment on above: MANAGEMENT OF PATIEN T CARE PER NURSING PROTOCOL Hematocrit Auto (Bld) [Volum e fraction]Ordered By: Claude Boyd on 07-22-2023 Hematocrit (Bld) [Volume fraction] 40.3 % 40-54 [facility] Laboratory - Chemistry and C hemistry - challengeOrdered By: Claude Boyd on 07-22-2023 CO2 [Moles/Vol] 33.0 mmol/L 21.0-32.0 [facility] Urea nitrogen/Creatinine [Mass ratio] 10.8 mg/mg 10-20 [facility] Laboratory - Hematology and Cell countsOrdered By: Claude Boyd on 07-22-2023 Erythrocyte distribution width (RBC) [Entitic vol] 45.1 fL 35.1-43.9 [facility] Erythrocyte distribution width (RBC) [Ratio] 14.8 % 11.6-14.6 [facility] Immature granulocytes/100 WBC (Bld) 0.300 % 0.0-0.9 [facility] Comment on above: IG% - Immature Granu locytes (promyelocytes, myelocytes and metamyelocytes) > 1% indicates that a LEFT SHIFT is Present. MCH (RBC) [Entitic mass] 26.4 pg 27.0-32.0 [facility] Nucleated RBC/100 WBC (Bld) [Ratio] 0 % 0-5 [facility] MCHC Auto (RBC) [Mass/Vol]Or dered By: Claude Boyd on 07-22-2023 MCHC (RBC) [Mass/Vol] 32.0 g/dL 32-36 [facility] No Panel InformationOrdered By: Claude Boyd on 07-22-2023 Estimated Creatinine Clearance Calc 65.55 ml/min [facility] Estimated GFR (MDRD) Amer 134 mL/min >60 [facility] Comment on above: GFR Calc Estimated GFR (MDRD) Non-Af Amer 110 mL/min >60 [facility] Comment on above: Non- GFR Calc Platelets bldOrdered By: Jovana Boyd on 07-22-2023 Platelets (Bld) [#/Vol] 292 10*3/uL 150-450 [facility] Serum or plasma calcium ale urement (mass/volume)Ordered By: Claude Boyd on 07-22-2023 Calcium [Mass/Vol] 8.6 mg/dL 8.5-10.1 [facility] Serum or plasma creatinine m easurement (mass/volume)Ordered By: Claude Boyd on 07-22-2023 Creatinine [Mass/Vol] 0.74 mg/dL 0.70-1.30 [facility] Comment on above: The validity of the calculated GFR & GFRAA in patients over 70 years has not been determined. Clinical correlation is essential. Serum or plasma urea nitroge n measurement (mass/volume)Ordered By: Claude Boyd on 07-22-2023 Urea nitrogen [Mass/Vol] 8 mg/dL 7-18 [facility] Thin prep Papanicolaou smear with manual screeningOrdered By: Claude Boyd on 07-22-2023 Thin prep Papanicolaou smear with manual screening 2 5-15 [facility] Whole blood hemoglobin A1c/t otal hemoglobin ratio (mass fraction)Ordered By: Emmett Guerrero on 07-22-2023 HbA1c (Bld) [Mass fraction] 9.4 % 3.8-5.6 [facility] Comment on above: Normal < 5.7 % Predi abetic 5.7 - 6.4 % Diabetic >or= 6.5 % Please note range changes. Bacteria identified Cx Nom ( Wound)Ordered By: Maya Pradhan on 07-09-2023 Wound Culture Staphylococcus aureus [facility] Wound Culture Enterococcus faecalis [facility] Wound Culture Kluyvera intermedia [facility] Wound Culture Staphylococcus aureus [facility] Wound Culture Enterococcus faecalis [facility] Wound Culture Kluyvera intermedia [facility] Gram stain for investigation of transfusion reactionOrdered By: Maya Pradhan on 07-09-2023 Microscopic observation Gram stain Nom (Unsp spec) [facility] Microscopic observation Gram stain Nom (Unsp spec) [facility] Absolute lymphocyte countOrd ered By: Dr. Pradhan on 02-19-2023 Lymphocytes Auto (Unsp spec) [#/Vol] 2.01 10*3/uL 0.83-4.51 [facility] Basophil percentageOrdered B y: Dr. Prdahan on 02-19-2023 Basophils/100 WBC (Bld) 0.5 % 0-1 [facility] Bilirubin [Mass/Vol] 0.50 mg/dL 0.20-1.00 [facility] Comment on above: For patients on eltr ombopag therapy, use of Dimension [place] TBIL is not recommended. Chloride [Moles/Vol] 101 mmol/L 98-107 [facility] Cholesterol [Mass/Vol] 196 mg/dL <200 [facility] Comment on above: <200 mg/dL Desirable 200-240 mg/dL Borderline >240 mg/dL High Risk Eosinophils/100 WBC (Bld) 1.3 % 0-5 [facility] Glucose [Mass/Vol] 112 mg/dL 74-106 [facility] Comment on above: Fasting Glucose resu lt from 100 to 125 mg/dL suggests IMPAIRED HOMEOSTASIS per A.D.A. criteria. Neutrophils (Bld) [#/Vol] 5.0 10*3/uL 2.0-7.7 [facility] Neutrophils/100 WBC (Bld) 60.7 % 47-70 [facility] Potassium [Moles/Vol] 4.3 mmol/L 3.5-5.1 [facility] Protein [Mass/Vol] 7.7 g/dL 6.4-8.2 [facility] Sodium [Moles/Vol] 139 mmol/L 136-145 [facility] Triglyceride [Mass/Vol] 87 mg/dL <199 [facility] Comment on above: The drugs N-Acetylcy steine and Metamizole may falsely depress this assay.Serum Triglycerides Reference Interval Normal <150 mg/dL Borderline high 150 - 199 mg/dL High 200 - 499 mg/dL Very High > or = 500 mg/dL WBC (Bld) [#/Vol] 8.3 10*3/uL 4.4-11.0 [facility] Blood erythrocytes count (nu mber/volume)Ordered By: Dr. Pradhan on 02-19-2023 RBC (Bld) [#/Vol] 5.34 10*6/uL 4.6-6.2 [facility] Blood hemoglobin measurement (mass/volume)Ordered By: Dr. Pradhan on 02-19-2023 Hemoglobin (Bld) [Mass/Vol] 14.5 g/dL 13.0-16.5 [facility] Blood lymphocytes/100 leukoc ytesOrdered By: Dr. Pradhan on 02-19-2023 Lymphocytes/100 WBC (Bld) 24.2 % 19-41 [facility] Blood monocytes/100 leukocyt esOrdered By: Dr. Pradhan on 02-19-2023 Monocytes/100 WBC (Bld) 12.9 % 0-10 [facility] Blood platelet mean volumeOr dered By: Dr. Pradhan on 02-19-2023 Platelet mean volume (Bld) [Entitic vol] 10.1 fL 6.2-12.0 [facility] Determination of erythrocyte mean corpuscular volume (MCV)Ordered By: Dr. Pradhan on 02-19-2023 MCV (RBC) [Entitic vol] 88.8 fL 80-94 [facility] Hematocrit Auto (Bld) [Volum e fraction]Ordered By: Dr. Pradhan on 02-19-2023 Hematocrit (Bld) [Volume fraction] 47.4 % 40-54 [facility] Laboratory - Chemistry and C hemistry - challengeOrdered By: Dr. Pradhan on 02-19-2023 ALP [Catalytic activity/Vol] 66 U/L 45-117 [facility] ALT [Catalytic activity/Vol] 31 U/L 16-61 [facility] CO2 [Moles/Vol] 33.0 mmol/L 21.0-32.0 [facility] Cobalamin (Vitamin B12) [Mass/Vol] 315 pg/mL 211-911 [facility] Globulin (S) [Mass/Vol] 4.5 g/dL 2.2-4.2 [facility] Urea nitrogen/Creatinine [Mass ratio] 16.2 mg/mg 10-20 [facility] Laboratory - Hematology and Cell countsOrdered By: Dr. Pradhan on 02-19-2023 Erythrocyte distribution width (RBC) [Entitic vol] 48.9 fL 35.1-43.9 [facility] Erythrocyte distribution width (RBC) [Ratio] 15.1 % 11.6-14.6 [facility] Immature granulocytes/100 WBC (Bld) 0.400 % 0.0-0.9 [facility] Comment on above: IG% - Immature Granu locytes (promyelocytes, myelocytes and metamyelocytes) > 1% indicates that a LEFT SHIFT is Present. MCH (RBC) [Entitic mass] 27.2 pg 27.0-32.0 [facility] Nucleated RBC/100 WBC (Bld) [Ratio] 0 % 0-5 [facility] MCHC Auto (RBC) [Mass/Vol]Or dered By: Dr. Pradhan on 02-19-2023 MCHC (RBC) [Mass/Vol] 30.6 g/dL 32-36 [facility] No Panel InformationOrdered By: Dr. Pradhan on 02-19-2023 Estimated GFR (MDRD) Amer 112 mL/min >60 [facility] Comment on above: GFR Calc Estimated GFR (MDRD) Non-Af Amer 93 mL/min >60 [facility] Comment on above: Non- GFR Calc Urine Microalbumin/Creatinine Ratio 41.8 mg/g CRE <30 [facility] Vitamin D 25-Hydroxy 35.8 ng/mL [facility] Comment on above: Vitamin D 25(OH) Sta tus Range Deficiency <20 ng/mL (50nmol/L) Insufficiency 20 - 30 ng/mL (50 - 75 nmol/L) Sufficiency 30 - 100 ng/mL (75 - 250 nmol/L) Toxicity >100 ng/mL (>250 nmol/L) Platelets bldOrdered By: Dr. Pradhan on 02-19-2023 Platelets (Bld) [#/Vol] 249 10*3/uL 150-450 [facility] Serum or plasma albumin ale urement (mass/volume)Ordered By: Dr. Pradhan on 02-19-2023 Albumin [Mass/Vol] 3.2 g/dL 3.2-5.0 [facility] Serum or plasma albumin/glob ulin mass ratioOrdered By: Dr. Pradhan on 02-19-2023 Albumin/Globulin [Mass ratio] 0.7 {ratio} 0.9-2.4 [facility] Serum or plasma calcium ale urement (mass/volume)Ordered By: Dr. Pradhan on 02-19-2023 Calcium [Mass/Vol] 9.4 mg/dL 8.5-10.1 [facility] Serum or plasma cholesterol in HDL measurement (mass/volume)Ordered By: Dr. Pradhan on 02-19-2023 Cholesterol in HDL [Mass/Vol] 43 mg/dL >40 [facility] Comment on above: The drugs N-Acetylcy steine and Metamizole may falsely depress this assay. Reference Range HDL <40 mg/dL Low HDL Cholesterol HDL >or= 60 mg/dL High HDL Cholesterol Serum or plasma cholesterol in VLDL measurement (mass/volume)Ordered By: Dr. Pradhan on 02-19-2023 Cholesterol in VLDL [Mass/Vol] 17 mg/dL 5-40 [facility] Serum or plasma creatinine m easurement (mass/volume)Ordered By: Dr. Pradhan on 02-19-2023 Creatinine [Mass/Vol] 0.86 mg/dL 0.70-1.30 [facility] Comment on above: The validity of the calculated GFR & GFRAA in patients over 70 years has not been determined. Clinical correlation is essential. Serum or plasma low density lipoprotein (LDL) cholesterol measurement (mass/volume)Ordered By: Dr. Pradhan on 02-19-2023 Cholesterol in LDL [Mass/Vol] 136 mg/dL 0-130 [facility] Serum or plasma urea nitroge n measurement (mass/volume)Ordered By: Dr. Pradhan on 02-19-2023 Urea nitrogen [Mass/Vol] 14 mg/dL 7-18 [facility] Thin prep Papanicolaou smear with manual screeningOrdered By: Dr. Pradhan on 02-19-2023 Thin prep Papanicolaou smear with manual screening 14 U/L 15-37 [facility] Thin prep Papanicolaou smear with manual screening 5 5-15 [facility] Thin prep Papanicolaou smear with manual screening 54.7 mg/L NO RANGE EST. [facility] Urine creatinine measurement (mass/volume)Ordered By: Dr. Pradhan on 02-19-2023 Creatinine (U) [Mass/Vol] 131.00 mg/dL NO RANGE EST. [facility] No Panel Informationon 01-02 Culture Body Fluid Few normal sarah for site present. Sensitivity testing not indicated. Neisseria gonorrhoeae: Negative Ureaplasma urealyticum: Pending No anaerobes isolated to date. [facility] Work Phone: GS No organisms seen. [facility] Work Phone: COVID-19 virus antigen assay Ordered By: Dr. Pradhan on 12-15-2022 SARS-CoV-2 (COVID-19) Ag IA.rapid Ql (Resp) Not detected Not Detect [facility] Comment on above: Normal Reference Ran ge: Not DetectedMethod:(RT-PCR) real-time reverse transcriptase PCRLuminex CIARAN Instrument*The Food and Drug Administration (FDA) has issued an Emergency Use Authorization (EAU) for the CIARAN SARS-CoV-2 Assay for the rapid detection of the virus that causes COVID-19. This test has been validated, but the FDAs independent review of this validation is pending.*Negative results do not preclude infection and should not be used as the sole basis for treatment or patient management. Optimum specimen types and timing for peak viral levels during infections caused by SARS-CoV-2 have not been determined. Collection of multiple specimens from the same patient may be necessary to detect the virus. The possibility of a false negative result should be considered if the patient has clinical presentation or has had recent exposure. No Panel Informationon 04-30 Culture Urine No growth at 48 hours. [facility] Work Phone: Absolute lymphocyte counton 11-29-2021 Lymphocytes Auto (Unsp spec) [#/Vol] 1.54 10*3/uL 0.83-4.51 [facility] Work Phone: Basophil percentageon 2021 Basophils/100 WBC (Bld) 0.6 % 0-1 [facility] Work Phone: Chloride [Moles/Vol] 98 mmol/L 98-107 [facility] Work Phone: Eosinophils/100 WBC (Bld) 1.8 % 0-5 [facility] Work Phone: Glucose [Mass/Vol] 204 mg/dL 74-106 [facility] Work Phone: Comment on above: Glucose result great er than or equal to 200 mg/dLsuggests DIABETES MELLITUS per A.D.A. criteria. Neutrophils (Bld) [#/Vol] 5.3 10*3/uL 2.0-7.7 [facility] Work Phone: Neutrophils/100 WBC (Bld) 68.2 % 47-70 [facility] Work Phone: [phone] Potassium [Moles/Vol] 4.4 mmol/L 3.5-5.1 [facility] Comment on above: Moderate Hemolysis, Result may be falsely increased. Sodium [Moles/Vol] 134 mmol/L 136-145 [facility] Work Phone: WBC (Bld) [#/Vol] 7.7 10*3/uL 4.4-11.0 [facility] Work Phone: Blood erythrocytes count (nu mber/volume)on 11-29-2021 RBC (Bld) [#/Vol] 4.82 10*6/uL 4.6-6.2 [facility] Work Phone: Blood hemoglobin measurement (mass/volume)on 11-29-2021 Hemoglobin (Bld) [Mass/Vol] 14.0 g/dL 13.0-16.5 [facility] Work Phone: Blood lymphocytes/100 leukoc yteson 11-29-2021 Lymphocytes/100 WBC (Bld) 19.9 % 19-41 [facility] Work Phone: [phone] Blood monocytes/100 leukocyt eson 11-29-2021 Monocytes/100 WBC (Bld) 9.2 % 0-10 [facility] Work Phone: Blood platelet mean volumeon 11-29-2021 Platelet mean volume (Bld) [Entitic vol] 10.0 fL 6.2-12.0 [facility] Work Phone: Determination of erythrocyte mean corpuscular volume (MCV)on 11-29-2021 MCV (RBC) [Entitic vol] 90.9 fL 80-94 [facility] Work Phone: Hematocrit Auto (Bld) [Volum e fraction]on 11-29-2021 Hematocrit (Bld) [Volume fraction] 43.8 % 40-54 [facility] Work Phone: Laboratory - Chemistry and C hemistry - challengeon 11-29-2021 CO2 [Moles/Vol] 37.0 mmol/L 21.0-32.0 [facility] Work Phone: [phone] Urea nitrogen/Creatinine [Mass ratio] 14.1 mg/mg 10-20 [facility] Work Phone: [phone] Laboratory - Hematology and Cell countson 11-29-2021 Erythrocyte distribution width (RBC) [Entitic vol] 46.5 fL 35.1-43.9 [facility] Work Phone: [phone] Erythrocyte distribution width (RBC) [Ratio] 13.8 % 11.6-14.6 [facility] Work Phone: [phone] Immature granulocytes/100 WBC (Bld) 0.300 % 0.0-0.9 [facility] Work Phone: [phone] Comment on above: IG% - Immature Granu locytes (promyelocytes, myelocytes and metamyelocytes) > 1% indicates that a LEFT SHIFT is Present. MCH (RBC) [Entitic mass] 29.0 pg 27.0-32.0 [facility] Work Phone: [phone] Nucleated RBC/100 WBC (Bld) [Ratio] 0 % 0-5 [facility] Work Phone: [phone] MCHC Auto (RBC) [Mass/Vol]on 11-29-2021 MCHC (RBC) [Mass/Vol] 32.0 g/dL 32-36 [facility] Work Phone: No Panel Informationon 11-29 Estimated GFR (MDRD) Amer 115 mL/min >60 [facility] Work Phone: [phone] Comment on above: GFR Calc Estimated GFR (MDRD) Non-Af Amer 95 mL/min >60 [facility] Work Phone: [phone] Comment on above: Non- GFR Calc Platelets bldon 11-29-2021 Platelets (Bld) [#/Vol] 259 10*3/uL 150-450 [facility] Work Phone: Serum or plasma calcium ale urement (mass/volume)on 11-29-2021 Calcium [Mass/Vol] 9.0 mg/dL 8.5-10.1 [facility] Work Phone: Serum or plasma creatinine m easurement (mass/volume)on 11-29-2021 Creatinine [Mass/Vol] 0.85 mg/dL 0.70-1.30 [facility] Work Phone: Comment on above: The validity of the calculated GFR & GFRAA in patients over 70 years has not been determined. Clinical correlation is essential. Serum or plasma urea nitroge n measurement (mass/volume)on 11-29-2021 Urea nitrogen [Mass/Vol] 12 mg/dL -18 [facility] Work Phone: Thin prep Papanicolaou smear with manual screeningon 11-29-2021 Thin prep Papanicolaou smear with manual screening -1 5-15 [facility] Work Phone: Absolute lymphocyte counton 10-30-2021 Lymphocytes Auto (Unsp spec) [#/Vol] 1.75 10*3/uL 0.83-4.51 [facility] Work Phone: Basophil percentageon 2021 Basophils/100 WBC (Bld) 0.5 % 0-1 [facility] Work Phone: Bilirubin [Mass/Vol] 0.60 mg/dL 0.20-1.00 [facility] Work Phone: Comment on above: For patients on eltr ombopag therapy, use of Dimension [place] TBIL is not recommended. Chloride [Moles/Vol] 96 mmol/L 98-107 [facility] Work Phone: Eosinophils/100 WBC (Bld) 1.2 % 0-5 [facility] Work Phone: Glucose [Mass/Vol] 196 mg/dL 74-106 [facility] Work Phone: Comment on above: Fasting Glucose resu lt greater than or equal to 126 mg/dL suggests DIABETES MELLITUS per A.D.A. criteria. Neutrophils (Bld) [#/Vol] 5.4 10*3/uL 2.0-7.7 [facility] Work Phone: [phone] Neutrophils/100 WBC (Bld) 66.2 % 47-70 [facility] Work Phone: [phone] Potassium [Moles/Vol] 4.4 mmol/L 3.5-5.1 [facility] Work Phone: [phone] Protein [Mass/Vol] 7.1 g/dL 6.4-8.2 [facility] Work Phone: [phone] Sodium [Moles/Vol] 134 mmol/L 136-145 [facility] Work Phone: [phone] WBC (Bld) [#/Vol] 8.1 10*3/uL 4.4-11.0 [facility] Work Phone: [phone] Blood erythrocytes count (nu mber/volume)on 10-30-2021 RBC (Bld) [#/Vol] 4.55 10*6/uL 4.6-6.2 [facility] Work Phone: [phone] Blood hemoglobin measurement (mass/volume)on 10-30-2021 Hemoglobin (Bld) [Mass/Vol] 12.9 g/dL 13.0-16.5 [facility] Work Phone: [phone] Blood lymphocytes/100 leukoc yteson 10-30-2021 Lymphocytes/100 WBC (Bld) 21.5 % 19-41 [facility] Work Phone: [phone] Blood monocytes/100 leukocyt eson 10-30-2021 Monocytes/100 WBC (Bld) 10.0 % 0-10 [facility] Work Phone: Blood platelet mean volumeon 10-30-2021 Platelet mean volume (Bld) [Entitic vol] 9.7 fL 6.2-12.0 [facility] Work Phone: [phone] Determination of erythrocyte mean corpuscular volume (MCV)on 10-30-2021 MCV (RBC) [Entitic vol] 92.1 fL 80-94 [facility] Work Phone: [phone] Hematocrit Auto (Bld) [Volum e fraction]on 10-30-2021 Hematocrit (Bld) [Volume fraction] 41.9 % 40-54 [facility] Work Phone: [phone] Iron measurement (mass/mass) on 10-30-2021 Iron (Unsp spec) [Mass/Mass] 46 ug/dL 65-175 [facility] Work Phone: [phone] Laboratory - Chemistry and C hemistry - challengeon 10-30-2021 ALP [Catalytic activity/Vol] 50 U/L 45-117 [facility] Work Phone: [phone] ALT [Catalytic activity/Vol] 40 U/L 16-61 [facility] Work Phone: [phone] CO2 [Moles/Vol] 34.0 mmol/L 21.0-32.0 [facility] Work Phone: [phone] Free T4 [Mass/Vol] 0.99 ng/dL 0.76-1.46 [facility] Work Phone: [phone] Globulin (S) [Mass/Vol] 4.0 g/dL 2.2-4.2 [facility] Work Phone: [phone] Urea nitrogen/Creatinine [Mass ratio] 15.9 mg/mg 10-20 [facility] Work Phone: [phone] Laboratory - Hematology and Cell countson 10-30-2021 Erythrocyte distribution width (RBC) [Entitic vol] 47.8 fL 35.1-43.9 [facility] Work Phone: [phone] Erythrocyte distribution width (RBC) [Ratio] 14.2 % 11.6-14.6 [facility] Work Phone: [phone] Immature granulocytes/100 WBC (Bld) 0.600 % 0.0-0.9 [facility] Work Phone: [phone] Comment on above: IG% - Immature Granu locytes (promyelocytes, myelocytes and metamyelocytes) > 1% indicates that a LEFT SHIFT is Present. MCH (RBC) [Entitic mass] 28.4 pg 27.0-32.0 [facility] Work Phone: [phone] Nucleated RBC/100 WBC (Bld) [Ratio] 0 % 0-5 [facility] Work Phone: [phone] MCHC Auto (RBC) [Mass/Vol]on 10-30-2021 MCHC (RBC) [Mass/Vol] 30.8 g/dL 32-36 [facility] Work Phone: [phone] No Panel Informationon 10-30 Estimated GFR (MDRD) Amer 120 mL/min >60 [facility] Work Phone: [phone] Comment on above: GFR Calc Estimated GFR (MDRD) Non-Af Amer 99 mL/min >60 [facility] Work Phone: [phone] Comment on above: Non- GFR Calc Free Triiodothyronine (T3) pg/dL 2.2 pg/mL 2.18-3.98 [facility] Work Phone: [phone] Thyroid Stimulating Hormone (TSH) 2.64 uIU/mL 0.358-3.74 [facility] Work Phone: [phone] Platelets bldon 10-30-2021 Platelets (Bld) [#/Vol] 293 10*3/uL 150-450 [facility] Work Phone: [phone] Serum or plasma albumin ale urement (mass/volume)on 10-30-2021 Albumin [Mass/Vol] 3.1 g/dL 3.2-5.0 [facility] Work Phone: [phone] Serum or plasma albumin/glob ulin mass ratioon 10-30-2021 Albumin/Globulin [Mass ratio] 0.8 {ratio} 0.9-2.4 [facility] Work Phone: [phone] Serum or plasma calcium ale urement (mass/volume)on 10-30-2021 Calcium [Mass/Vol] 8.9 mg/dL 8.5-10.1 [facility] Work Phone: [phone] Serum or plasma creatinine m easurement (mass/volume)on 10-30-2021 Creatinine [Mass/Vol] 0.82 mg/dL 0.70-1.30 [facility] Work Phone: Comment on above: The validity of the calculated GFR & GFRAA in patients over 70 years has not been determined. Clinical correlation is essential. Serum or plasma ferritin donny surement (mass/volume)on 10-30-2021 Ferritin [Mass/Vol] 66 ng/mL 26-388 [facility] Work Phone: [phone] Serum or plasma urea nitroge n measurement (mass/volume)on 10-30-2021 Urea nitrogen [Mass/Vol] 13 mg/dL 7-18 [facility] Work Phone: [phone] Thin prep Papanicolaou smear with manual screeningon 10-30-2021 Thin prep Papanicolaou smear with manual screening 21 U/L 15-37 [facility] Work Phone: Thin prep Papanicolaou smear with manual screening 4 5-15 [facility] Work Phone: Basophil percentageon 2021 Chloride [Moles/Vol] 100 mmol/L 98-107 [facility] Work Phone: Glucose [Mass/Vol] 111 mg/dL 74-106 [facility] Work Phone: Comment on above: Fasting Glucose resu lt from 100 to 125 mg/dL suggests IMPAIRED HOMEOSTASIS per A.D.A. criteria. Potassium [Moles/Vol] 4.3 mmol/L 3.5-5.1 [facility] Work Phone: Comment on above: Slight Hemolysis, Re sult may be falsely increased. Sodium [Moles/Vol] 137 mmol/L 136-145 [facility] Work Phone: [phone] Laboratory - Chemistry and C hemistry - challengeon 10-11-2021 CO2 [Moles/Vol] 34.0 mmol/L 21.0-32.0 [facility] Work Phone: [phone] Urea nitrogen/Creatinine [Mass ratio] 12.6 mg/mg 10-20 [facility] Work Phone: No Panel Informationon 10-11 Estimated GFR (MDRD) Amer 111 mL/min >60 [facility] Work Phone: Comment on above: GFR Calc Estimated GFR (MDRD) Non-Af Amer 92 mL/min >60 [facility] Work Phone: Comment on above: Non- GFR Calc Serum or plasma calcium ale urement (mass/volume)on 10-11-2021 Calcium [Mass/Vol] 9.0 mg/dL 8.5-10.1 [facility] Work Phone: Serum or plasma creatinine m easurement (mass/volume)on 10-11-2021 Creatinine [Mass/Vol] 0.87 mg/dL 0.70-1.30 [facility] Work Phone: Comment on above: The validity of the calculated GFR & GFRAA in patients over 70 years has not been determined. Clinical correlation is essential. Serum or plasma urea nitroge n measurement (mass/volume)on 10-11-2021 Urea nitrogen [Mass/Vol] 11 mg/dL 7-18 [facility] Work Phone: Thin prep Papanicolaou smear with manual screeningon 10-11-2021 Thin prep Papanicolaou smear with manual screening 3 - [facility] Work Phone: Glucose POCon 08-19-2018 Glucose mass conc 119 mg/dL High 70-99 [facility] Comment on above: Performed By: #### [id number] ####[facility] [id number] [place] [address] Glucose POCon 07-29-2018 Glucose mass conc 116 mg/dL High 70-99 [facility] Comment on above: Performed By: #### [id number] ####[facility] [id number] [place] [address] US Scrotum (Contents)on US Scrotum (Contents) Exam Date/Time:06/16/2018 14:09 EDTReason for Exam:LEFT TESTICULAR SWELLING;Testicular swellingReportSTUDY:US Scrotum (Contents); 06/16/2018 2:09 pmINDICATION:Testicular swelling.COMPARISON:None . 73ORDERING CLINICIAN:Lloyd Howard:Carole houston grayscale and color Doppler ultrasonographic images were obtained through the scrotum. Doppler waveform images were also obtained through the testicles bilaterally.FINDINGS:RIG HT HEMISCROTUM:A trace right-sided hydrocele is present.RIGHT TESTICLE:The right testicle measures 4.1 x 2.5 x 3.2 cm.The right testicle demonstrates a homogeneous echotexture and normal contour.Normal vascularity and color Doppler waveforms are observed in the right testicle.RIGHT EPIDIDYMIS:The right epididymis measures at 0.9 x 1.2 x 1.3 cm and is within normal limits for appearance.LEFT HEMISCROTUM:A moderate-size left-sided hydrocele is present. An echogenic structure is seen superior to the left testicle, most consistent with herniated fat within an inguinal hernia.LEFT TESTICLE:The left testicle measures 4.7 x 3.1 x 2.5 cm.The left testicle demonstrates a homogeneous echotexture and normal contour.There is increased vascularity within the left testicle.LEFT EPIDIDYMIS:The left epididymis measures at 1.1 x 1.3 x 1.0 cm and is within normal limits for appearance.Exam Date/Time:06/16/2018 14:09 EDTReportIMPRESSION:1. Increased vascularity within the left testicle, which can be seen with orchitis. Clinical correlation is recommended.2. Moderate size left-sided hydrocele.3. Findings consistent with fat containing left inguinal hernia. FINAL REPORT Dictated: 06/16/2018 2:26 pm Hal Palm MD CSigned (Electronic Signature): 06/16/2018 2:26 pmSigned by: Hal Palm MD Technologist: NOR[facility] Gram stain for investigation of transfusion reaction Microscopic observation Gram stain Nom (Unsp spec) [facility] Work Phone: Vital Signs Date Time Vital Sign Value Performing Clinician Facility 06-15-2025 09:15-0400 Body temperature 98.2 [degF] Dr. Maya Pradhan DO Work Phone: [facility] 06-15-2025 09:15-0400 Body weight 112.[address] Maya Pradhan DO Work Phone: [facility] 06-15-2025 09:15-0400 Diastolic blood pressure 63 mm[Hg] Dr. Maya Pradhan DO Work Phone: [facility] [facility] 09:15-0400 Heart rate 81 /min Dr. Maya Pradhan DO Work Phone: [facility] 06-15-2025 09:15-0400 Respiratory rate 16 /min Dr. Maya Pradhan DO Work Phone: [facility] 06-15-2025 09:15-0400 SaO2% (BldA) [Mass fraction] 92 % Dr. Maya Pradhan DO Work Phone: [facility] 06-15-2025 09:15-0400 Systolic blood pressure 122 mm[Hg] Dr. Maya Pradhan DO Work Phone: [facility] 05-29-2025 11:00-0400 Body height 172.7 cm Jeremías Fajardo MD Work Phone: [facility] 05-29-2025 11:00-0400 Body mass index (BMI) [Ratio] 33.75 kg/m2 Jeremías Fajardo MD Work Phone: [facility] 05-29-2025 11:00-0400 Body weight 100.7 kg Jeremías Fajardo MD Work Phone: [facility] 05-29-2025 11:00-0400 Respiratory rate 16 /min Jeremías Fajardo MD Work Phone: [facility] 05-19-2025 08:11-0400 Body height 172.7 cm Jeremías Fajardo MD Work Phone: [facility] 05-19-2025 08:11-0400 Body mass index (BMI) [Ratio] 33.75 kg/m2 Jeremías Fajardo MD Work Phone: [facility] 05-19-2025 08:11-0400 Body weight 100.7 kg Jeremías Fajardo MD Work Phone: [facility] 05-19-2025 08:11-0400 Respiratory rate 19 /min Jeremías Fajardo MD Work Phone: [facility] 05-03-2025 08:56-0400 Body height 172.[address] Maya Pradhan DO Work Phone: [facility] 05-03-2025 08:56-0400 Body mass index (BMI) [Ratio] 37.8 kg/m2 Dr. Maya Pradhan DO Work Phone: [facility] 05-03-2025 08:56-0400 Body weight 112.[address] Maya Pradhan DO Work Phone: [facility] 05-03-2025 08:56-0400 Diastolic blood pressure 61 mm[Hg] Dr. Maya Pradhan DO Work Phone: [facility] 05-03-2025 08:56-0400 Heart rate 66 /min Dr. Maya Pradhan DO Work Phone: [facility] 05-03-2025 08:56-0400 Respiratory rate 16 /min Dr. Maya Pradhan DO Work Phone: [facility] 05-03-2025 08:56-0400 Systolic blood pressure 105 mm[Hg] Dr. Maya Pradhan DO Work Phone: [facility] 04-17-2025 08:45-0400 Body height 172.7 cm Jia MARQUEZ Work Phone: [facility] 04-17-2025 08:45-0400 Body mass index (BMI) [Ratio] 33.75 kg/m2 Jia MARQUEZ Work Phone: [facility] 04-17-2025 08:45-0400 Body weight 100.7 kg Jia Lee BLEACHER OPERATOR-MANAGER GAME Work Phone: [facility] 04-17-2025 08:45-0400 Respiratory rate 17 /min Jia Lee BLEACHER OPERATOR-MANAGER GAME Work Phone: [facility] 03-21-2025 09:22-0400 Body height 166.4 cm Bryon Turner PA-C Work Phone: [facility] 03-21-2025 09:22-0400 Body mass index (BMI) [Ratio] 40.15 kg/m2 Bryon Turner PA-C Work Phone: [facility] 03-21-2025 09:22-0400 Body temperature 97.7 [degF] Bryon Turner PA-C Work Phone: [facility] 03-21-2025 09:22-0400 Body weight 111.13 kg Bryon Turner PA-C Work Phone: [facility] 03-21-2025 09:22-0400 Diastolic blood pressure 72 mm[Hg] Bryon Turner PA-C Work Phone: [facility] 03-21-2025 09:22-0400 Heart rate 92 /min Bryon Turner PA-C Work Phone: [facility] 03-21-2025 09:22-0400 Respiratory rate 18 /min Bryon Turner PA-C Work Phone: [facility] 03-21-2025 09:22-0400 SaO2% (BldA) [Mass fraction] 95 % Bryon Turner PA-C Work Phone: [facility] 03-21-2025 09:22-0400 Systolic blood pressure 134 mm[Hg] Bryon Turner PA-C Work Phone: [facility] 01-24-2025 10:11-0400 Body mass index (BMI) [Ratio] 40.61 kg/m2 Rochelle Branch PA-C Work Phone: [facility] 01-24-2025 10:11-0400 Body temperature 97.9 [degF] Rochelle Clutter PA-C Work Phone: [facility] 01-24-2025 10:11-0400 Body weight 112.4 kg Rochelle Clutter PA-C Work Phone: [facility] 01-24-2025 10:11-0400 Diastolic blood pressure 72 mm[Hg] Rochelle Clutter PA-C Work Phone: [facility] 01-24-2025 10:11-0400 Heart rate 90 /min Rochelle Clutter PA-C Work Phone: [facility] 01-24-2025 10:11-0400 Respiratory rate 18 /min Rochelle Clutter PA-C Work Phone: [facility] 01-24-2025 10:11-0400 SaO2% (BldA) [Mass fraction] 94 % Rochelle Clutter PA-C Work Phone: [facility] 01-24-2025 10:11-0400 Systolic blood pressure 138 mm[Hg] Rochelle Clutter PA-C Work Phone: [facility] 12-31-2024 13:04-0400 Body mass index (BMI) [Ratio] 40.57 kg/m2 Marisa Blanco APRN.MANAGER GAME Work Phone: [facility] 12-31-2024 13:04-0400 Body temperature 98.29 [degF] Marisa Mirandak BLEACHER OPERATOR.MANAGER GAME Work Phone: [facility] 12-31-2024 13:04-0400 Body weight 112.3 kg Marisa Blanco BLEACHER OPERATOR.MANAGER GAME Work Phone: [facility] 12-31-2024 13:04-0400 Diastolic blood pressure 74 mm[Hg] Marisa Blanco BLEACHER OPERATOR.MANAGER GAME Work Phone: [facility] 12-31-2024 13:04-0400 Heart rate 98 /min Marisa Blanco BLEACHER OPERATOR.MANAGER GAME Work Phone: [facility] 12-31-2024 13:04-0400 Respiratory rate 18 /min Marisa Francis BLEACHER OPERATOR.MANAGER GAME Work Phone: [facility] 12-31-2024 13:04-0400 SaO2% (BldA) [Mass fraction] 94 % Marisa Francis BLEACHER OPERATOR.MANAGER GAME Work Phone: [facility] 12-31-2024 13:04-0400 Systolic blood pressure 132 mm[Hg] Marisa Francis BLEACHER OPERATOR.MANAGER GAME Work Phone: [facility] 12-21-2024 12:34-0400 Body mass index (BMI) [Ratio] 40.9 kg/m2 Sally Yanick BLEACHER OPERATOR.MANAGER GAME Work Phone: [facility] 12-21-2024 12:34-0400 Body temperature 98.01 [degF] Sally Yanick BLEACHER OPERATOR.MANAGER GAME Work Phone: [facility] 12-21-2024 12:34-0400 Body weight 113.2 kg Sally Herndon BLEACHER OPERATOR.MANAGER GAME Work Phone: [facility] 12-21-2024 12:34-0400 Diastolic blood pressure 70 mm[Hg] Sally Yanick BLEACHER OPERATOR.MANAGER GAME Work Phone: [facility] 12-21-2024 12:34-0400 Heart rate 98 /min Sally Yanick BLEACHER OPERATOR.MANAGER GAME Work Phone: [facility] 12-21-2024 12:34-0400 Respiratory rate 16 /min Sally Herndon BLEACHER OPERATOR.MANAGER GAME Work Phone: [facility] 12-21-2024 12:34-0400 SaO2% (BldA) [Mass fraction] 94 % Sally Yanick BLEACHER OPERATOR.MANAGER GAME Work Phone: [facility] 12-21-2024 12:34-0400 Systolic blood pressure 122 mm[Hg] Sally Yanick BLEACHER OPERATOR.MANAGER GAME Work Phone: [facility] 12-13-2024 09:06-0400 Body height 166.4 cm Bryon Turner PA-C Work Phone: [facility] 12-13-2024 09:06-0400 Body mass index (BMI) [Ratio] 40.48 kg/m2 Bryon Turner PA-C Work Phone: [facility] 12-13-2024 09:06-0400 Body temperature 97.9 [degF] Bryon Turner PA-C Work Phone: [facility] 12-13-2024 09:06-0400 Body weight 112.04 kg Bryon Turner PA-C Work Phone: [facility] 12-13-2024 09:06-0400 Diastolic blood pressure 86 mm[Hg] Bryon Turner PA-C Work Phone: [facility] 12-13-2024 09:06-0400 Heart rate 95 /min Bryon Turner PA-C Work Phone: [facility] 12-13-2024 09:06-0400 Respiratory rate 18 /min Bryon Turner PA-C Work Phone: [facility] 12-13-2024 09:06-0400 SaO2% (BldA) [Mass fraction] 96 % Bryon Turner PA-C Work Phone: [facility] 12-13-2024 09:06-0400 Systolic blood pressure 144 mm[Hg] Bryon Turner PA-C Work Phone: [facility] 11-07-2024 08:11-0500 Body temperature 98.1 [degF] Dr. Maya Pradhan DO Work Phone: [facility] 11-07-2024 08:11-0500 Diastolic blood pressure 74 mm[Hg] Dr. Maya Pradhan DO Work Phone: [facility] 11-07-2024 08:11-0500 Heart rate 77 /min Dr. Maya Pradhan DO Work Phone: [facility] 11-07-2024 08:11-0500 Respiratory rate 19 /min Dr. Maya Pradhan DO Work Phone: [facility] 11-07-2024 08:11-0500 SaO2% (BldA) [Mass fraction] 96 % Dr. Maya Pradhan DO Work Phone: [facility] 11-07-2024 08:11-0500 Systolic blood pressure 143 mm[Hg] Dr. Maya Pradhan DO Work Phone: [facility] 11-07-2024 07:11-0500 Inhaled oxygen flow rate 2.5 L/min Dr. Maya Pradhan DO Work Phone: [facility] 11-07-2024 04:02-0500 Body height 172.[address] Maya Pradhan DO Work Phone: [facility] 11-07-2024 04:02-0500 Body mass index (BMI) [Ratio] 39.2 kg/m2 Dr. Maya Pradhan DO Work Phone: [facility] 11-07-2024 04:02-0500 Body weight 116.[address] Maya Pradhan DO Work Phone: [facility] 11-04-2024 14:11-0500 Body temperature 98.4 [degF] Dr. Maya Pradhan DO Work Phone: [facility] 11-04-2024 14:11-0500 Diastolic blood pressure 60 mm[Hg] Dr. Maya Pradhan DO Work Phone: [facility] 11-04-2024 14:11-0500 Heart rate 83 /min Dr. Maya Pradhan DO Work Phone: [facility] 11-04-2024 14:11-0500 Respiratory rate 18 /min Dr. Maya Pradhan DO Work Phone: [facility] 11-04-2024 14:11-0500 SaO2% (BldA) [Mass fraction] 91 % Dr. Maya Pradhan DO Work Phone: [facility] 11-04-2024 14:11-0500 Systolic blood pressure 115 mm[Hg] Dr. Maya Pradhan DO Work Phone: [facility] 10-01-2024 15:16-0500 Body mass index (BMI) [Ratio] 38.21 kg/m2 Ria Praisler-Wood BLEACHER OPERATOR.MANAGER GAME Work Phone: [facility] 10-01-2024 15:16-0500 Body temperature 98.29 [degF] Ria Praisler-Wood BLEACHER OPERATOR.MANAGER GAME Work Phone: [facility] 10-01-2024 15:16-0500 Body weight 114 kg Ria Praisler-Wood BLEACHER OPERATOR.MANAGER GAME Work Phone: [facility] 10-01-2024 15:16-0500 Diastolic blood pressure 77 mm[Hg] Ria Praisler-Wood BLEACHER OPERATOR.MANAGER GAME Work Phone: [facility] 10-01-2024 15:16-0500 Heart rate 93 /min Ria Praisler-Wood BLEACHER OPERATOR.MANAGER GAME Work Phone: [facility] 10-01-2024 15:16-0500 Respiratory rate 20 /min Ria Praisler-Wood BLEACHER OPERATOR.MANAGER GAME Work Phone: [facility] 10-01-2024 15:16-0500 SaO2% (BldA) [Mass fraction] 96 % Ria Praisler-Wood BLEACHER OPERATOR.MANAGER GAME Work Phone: [facility] 10-01-2024 15:16-0500 Systolic blood pressure 147 mm[Hg] Ria Praisler-Wood BLEACHER OPERATOR.MANAGER GAME Work Phone: [facility] 09-25-2024 10:44-0500 Body mass index (BMI) [Ratio] 38.08 kg/m2 Kodi Moomaw BLEACHER OPERATOR.MANAGER GAME Work Phone: [facility] 09-25-2024 10:44-0500 Body temperature 97.9 [degF] Kodi Moomaw BLEACHER OPERATOR.MANAGER GAME Work Phone: [facility] 09-25-2024 10:44-0500 Body weight 113.6 kg Kodi Moomaw BLEACHER OPERATOR.MANAGER GAME Work Phone: [facility] 09-25-2024 10:44-0500 Diastolic blood pressure 62 mm[Hg] Kodi Moomaw BLEACHER OPERATOR.MANAGER GAME Work Phone: [facility] 09-25-2024 10:44-0500 Heart rate 88 /min Kodi Moomaw BLEACHER OPERATOR.MANAGER GAME Work Phone: [facility] 09-25-2024 10:44-0500 Respiratory rate 21 /min Kodi Moomaw BLEACHER OPERATOR.MANAGER GAME Work Phone: [facility] 09-25-2024 10:44-0500 SaO2% (BldA) [Mass fraction] 93 % Kodi Moomaw BLEACHER OPERATOR.MANAGER GAME Work Phone: [facility] 09-25-2024 10:44-0500 Systolic blood pressure 122 mm[Hg] Kodi Moomaw BLEACHER OPERATOR.MANAGER GAME Work Phone: [facility] 09-17-2024 11:57-0500 Body mass index (BMI) [Ratio] 38.01 kg/m2 Kami Callow BLEACHER OPERATOR.MANAGER GAME Work Phone: [facility] 09-17-2024 11:57-0500 Body temperature 97.59 [degF] Kami Callow BLEACHER OPERATOR.MANAGER GAME Work Phone: [facility] 09-17-2024 11:57-0500 Body weight 113.4 kg Kami Callow BLEACHER OPERATOR.MANAGER GAME Work Phone: [facility] 09-17-2024 11:57-0500 Diastolic blood pressure 62 mm[Hg] Kami Callow BLEACHER OPERATOR.MANAGER GAME Work Phone: [facility] 09-17-2024 11:57-0500 Heart rate 90 /min Kami Callow BLEACHER OPERATOR.MANAGER GAME Work Phone: [facility] 09-17-2024 11:57-0500 Respiratory rate 18 /min Kami Callow BLEACHER OPERATOR.MANAGER GAME Work Phone: [facility] 09-17-2024 11:57-0500 SaO2% (BldA) [Mass fraction] 96 % Kami Callow BLEACHER OPERATOR.MANAGER GAME Work Phone: [facility] 09-17-2024 11:57-0500 Systolic blood pressure 120 mm[Hg] Kami Younger BLEACHER OPERATOR.MANAGER GAME Work Phone: [facility] 07-19-2024 07:25-0500 Body mass index (BMI) [Ratio] 37.38 kg/m2 Kodi Moomaw BLEACHER OPERATOR.MANAGER GAME Work Phone: [facility] 07-19-2024 07:25-0500 Body temperature 97.59 [degF] Kodi Moomaw BLEACHER OPERATOR.MANAGER GAME Work Phone: [facility] 07-19-2024 07:25-0500 Body weight 111.5 kg Kodi Moomaw BLEACHER OPERATOR.MANAGER GAME Work Phone: [facility] 07-19-2024 07:25-0500 Diastolic blood pressure 84 mm[Hg] Kodi Moomaw BLEACHER OPERATOR.MANAGER GAME Work Phone: [facility] 07-19-2024 07:25-0500 Heart rate 96 /min Kodi Moomaw BLEACHER OPERATOR.MANAGER GAME Work Phone: [facility] 07-19-2024 07:25-0500 Respiratory rate 18 /min Kodi Moomaw BLEACHER OPERATOR.MANAGER GAME Work Phone: [facility] 07-19-2024 07:25-0500 SaO2% (BldA) [Mass fraction] 97 % Kodi Moomaw BLEACHER OPERATOR.MANAGER GAME Work Phone: [facility] 07-19-2024 07:25-0500 Systolic blood pressure 142 mm[Hg] Kodi Moomaw BLEACHER OPERATOR.MANAGER GAME Work Phone: [facility] 07-14-2024 08:36-0400 Body height 172.7 cm Carlos Eduardo Sidhu MD Work Phone: [facility] 07-14-2024 08:36-0400 Body mass index (BMI) [Ratio] 38.62 kg/m2 Carlos Eduardo Sidhu MD Work Phone: [facility] 07-14-2024 08:36-0400 Body weight 115.21 kg Carlos Eduardo Sidhu MD Work Phone: [facility] 07-14-2024 08:36-0400 Diastolic blood pressure 83 mm[Hg] Carlos Eduardo Sidhu MD Work Phone: [facility] 07-14-2024 08:36-0400 Heart rate 91 /min Carlos Eduardo Sidhu MD Work Phone: [facility] 07-14-2024 08:36-0400 Respiratory rate 12 /min Carlos Eduardo Sidhu MD Work Phone: [facility] 07-14-2024 08:36-0400 Systolic blood pressure 151 mm[Hg] Carlos Eduardo Sidhu MD Work Phone: [facility] 03-29-2024 07:53-0400 Body height 172.7 cm Lamar Coyner BLEACHER OPERATOR.MANAGER GAME Work Phone: [facility] 03-29-2024 07:53-0400 Body mass index (BMI) [Ratio] 38.01 kg/m2 Lamar Coyner BLEACHER OPERATOR.MANAGER GAME Work Phone: [facility] 03-29-2024 07:53-0400 Body weight 113.4 kg Lamar Coyner BLEACHER OPERATOR.MANAGER GAME Work Phone: [facility] 01-13-2024 09:27-0400 Body mass index (BMI) [Ratio] 36.9 kg/m2 Dr. Maya Pradhan Work Phone: [facility] 01-13-2024 09:27-0400 Body temperature 98.6 [degF] Dr. Maya Pradhan Work Phone: [facility] 01-13-2024 09:27-0400 Body weight 110.[address] Maya Pradhan Work Phone: [facility] 01-13-2024 09:27-0400 Diastolic blood pressure 70 mm[Hg] Dr. Maya Pradhan Work Phone: [facility] 01-13-2024 09:27-0400 Heart rate 72 /min Dr. Maya Pradhan Work Phone: [facility] 01-13-2024 09:27-0400 Respiratory rate 18 /min Dr. Maya Pradhan Work Phone: [facility] 01-13-2024 09:27-0400 SaO2% (BldA) [Mass fraction] 94 % Dr. Maya Pradhan Work Phone: [facility] 01-13-2024 09:27-0400 Systolic blood pressure 124 mm[Hg] Dr. Maya Pradhan Work Phone: [facility] 12-07-2023 09:14-0400 Body height 172.[address] Maya Pradhan Work Phone: [facility] 12-07-2023 09:14-0400 Body mass index (BMI) [Ratio] 36.5 kg/m2 Dr. Maya Pradhan Work Phone: [facility] 12-07-2023 09:14-0400 Body weight 108.[address] Maya Pradhan Work Phone: [facility] 12-07-2023 09:14-0400 Diastolic blood pressure 70 mm[Hg] Dr. Maya Pradhan Work Phone: [facility] 12-07-2023 09:14-0400 Heart rate 88 /min Dr. Maya Pradhan Work Phone: [facility] 12-07-2023 09:14-0400 Respiratory rate 18 /min Dr. Maya Pradhan Work Phone: [facility] 12-07-2023 09:14-0400 Systolic blood pressure 138 mm[Hg] Dr. Maya Pradhan Work Phone: [facility] 11-17-2023 10:57-0500 Body mass index (BMI) [Ratio] 35.9 kg/m2 Dr. Maya Pradhan Work Phone: [facility] 11-17-2023 10:57-0500 Body temperature 98.8 [degF] Dr. Maya Pradhan Work Phone: [facility] 11-17-2023 10:57-0500 Body weight 107.[address] Maya Pradhan Work Phone: [facility] 11-17-2023 10:57-0500 Diastolic blood pressure 78 mm[Hg] Dr. Maya Pradhan Work Phone: [facility] 11-17-2023 10:57-0500 Heart rate 96 /min Dr. Maya Pradhan Work Phone: [facility] 11-17-2023 10:57-0500 Respiratory rate 14 /min Dr. Maya Pradhan Work Phone: [facility] 11-17-2023 10:57-0500 SaO2% (BldA) [Mass fraction] 97 % Dr. Maya Pradhan Work Phone: [facility] 11-17-2023 10:57-0500 Systolic blood pressure 132 mm[Hg] Dr. Maya Pradhan Work Phone: [facility] 10-21-2023 13:09-0500 Body temperature 98.6 [degF] Dr. Maya Pradhan Work Phone: [facility] 10-21-2023 13:09-0500 Body weight 108.[address] Maya Pradhan Work Phone: [facility] 10-21-2023 13:09-0500 Diastolic blood pressure 68 mm[Hg] Dr. Maya Pradhan Work Phone: [facility] 10-21-2023 13:09-0500 Heart rate 84 /min Dr. Maya Pradhan Work Phone: [facility] 10-21-2023 13:09-0500 Respiratory rate 18 /min Dr. Maya Pradhan Work Phone: [facility] 10-21-2023 13:09-0500 SaO2% (BldA) [Mass fraction] 90 % Dr. Maya Pradhan Work Phone: [facility] 10-21-2023 13:09-0500 Systolic blood pressure 123 mm[Hg] Dr. Maya Pradhan Work Phone: [facility] 10-17-2023 09:18-0500 Body temperature 98.2 [degF] Gelacio [facility] BLEACHER OPERATOR.MANAGER GAME Work Phone: [facility] 10-17-2023 09:18-0500 Body weight 110.95 kg [facility] BLEACHER OPERATOR.MANAGER GAME Work Phone: [facility] 10-17-2023 09:18-0500 Diastolic blood pressure 80 mm[Hg] Gelacio [facility] BLEACHER OPERATOR.MANAGER GAME Work Phone: [facility] 10-17-2023 09:18-0500 Heart rate 88 /min Gelacio [facility] BLEACHER OPERATOR.MANAGER GAME Work Phone: [facility] 10-17-2023 09:18-0500 Respiratory rate 16 /min [facility] BLEACHER OPERATOR.MANAGER GAME Work Phone: [facility] 10-17-2023 09:18-0500 SaO2% (BldA) [Mass fraction] 98 % [facility] BLEACHER OPERATOR.MANAGER GAME Work Phone: [facility] 10-17-2023 09:18-0500 Systolic blood pressure 128 mm[Hg] [facility] BLEACHER OPERATOR.MANAGER GAME Work Phone: [facility] 10-15-2023 07:52-0500 Body mass index (BMI) [Ratio] 35.9 kg/m2 Dr. Maya Pradhan Work Phone: [facility] 10-15-2023 07:52-0500 Body temperature 97.4 [degF] Dr. Maya Pradhan Work Phone: [facility] 10-15-2023 07:52-0500 Body weight 107.[address] Maya Pradhan Work Phone: [facility] 10-15-2023 07:52-0500 Diastolic blood pressure 63 mm[Hg] Dr. Maya Pradhan Work Phone: [facility] 10-15-2023 07:52-0500 Heart rate 93 /min Dr. Maya Pradhan Work Phone: [facility] 10-15-2023 07:52-0500 Respiratory rate 18 /min Dr. Maya Pradhan Work Phone: [facility] 10-15-2023 07:52-0500 SaO2% (BldA) [Mass fraction] 93 % Dr. Maya Pradhan Work Phone: [facility] 10-15-2023 07:52-0500 Systolic blood pressure 111 mm[Hg] Dr. Maya Pradhan Work Phone: [facility] 10-07-2023 08:44-0500 Body temperature 97.7 [degF] Dr. Maya Pradhan Work Phone: [facility] 10-07-2023 08:44-0500 Body weight 107.[address] Maya Pradhan Work Phone: [facility] 10-07-2023 08:44-0500 Diastolic blood pressure 68 mm[Hg] Dr. Maya Pradhan Work Phone: [facility] 10-07-2023 08:44-0500 Heart rate 84 /min Dr. Maya Pradhan Work Phone: [facility] 10-07-2023 08:44-0500 Respiratory rate 16 /min Dr. Maya Pradhan Work Phone: [facility] 10-07-2023 08:44-0500 SaO2% (BldA) [Mass fraction] 94 % Dr. Maya Pradhan Work Phone: [facility] 10-07-2023 08:44-0500 Systolic blood pressure 122 mm[Hg] Dr. Maya Pradhan Work Phone: [facility] 09-30-2023 07:22-0500 Body weight 109.[address] Maya Pradhan Work Phone: [facility] 09-29-2023 07:16-0500 Body mass index (BMI) [Ratio] 36.6 kg/m2 Dr. Maya Pradhan Work Phone: [facility] 08-20-2023 13:55-0500 Body temperature 98.4 [degF] Dr. Maya Pradhan Work Phone: [facility] 08-20-2023 13:55-0500 Body weight 109.[address] Maya Pradhan Work Phone: [facility] 08-20-2023 13:55-0500 Diastolic blood pressure 76 mm[Hg] Dr. Maya Pradhan Work Phone: [facility] 08-20-2023 13:55-0500 Heart rate 97 /min Dr. Maya Pradhan Work Phone: [facility] 08-20-2023 13:55-0500 SaO2% (BldA) [Mass fraction] 92 % Dr. Maya Pradhan Work Phone: [facility] 08-20-2023 13:55-0500 Systolic blood pressure 149 mm[Hg] Dr. Maya Pradhan Work Phone: [facility] 07-28-2023 14:00-0500 Inhaled oxygen flow rate 2.5 L/min Dr. Maya Pradhan Work Phone: [facility] 07-28-2023 09:15-0500 Diastolic blood pressure 69 mm[Hg] Dr. Maya Pradhan Work Phone: [facility] 07-28-2023 09:15-0500 Heart rate 79 /min Dr. Maya Pradhan Work Phone: [facility] 07-28-2023 09:15-0500 Respiratory rate 20 /min Dr. Maya Pradhan Work Phone: [facility] 07-28-2023 09:15-0500 SaO2% (BldA) [Mass fraction] 95 % Dr. Maya Pradhan Work Phone: [facility] 07-28-2023 09:15-0500 Systolic blood pressure 131 mm[Hg] Dr. Maya Pradhan Work Phone: [facility] 07-28-2023 08:00-0500 Body temperature 98.7 [degF] Dr. Maya Pradhan Work Phone: [facility] 07-26-2023 11:48-0500 Body height 172.[address] Maya Pradhan Work Phone: [facility] 07-26-2023 11:48-0500 Body weight 110.[address] Maya Pradhan Work Phone: [facility] 07-23-2023 01:25-0500 Body mass index (BMI) [Ratio] 36.9 kg/m2 Dr. Maya Pradhan Work Phone: [facility] 07-22-2023 23:41-0500 Respiratory rate 20 /min Dr. Maya Pradhan Work Phone: [facility] 07-22-2023 22:44-0500 Body temperature 98.3 [degF] Dr. Maya Pradhan Work Phone: [facility] 07-22-2023 22:44-0500 Diastolic blood pressure 66 mm[Hg] Dr. Maya Pradhan Work Phone: [facility] 07-22-2023 22:44-0500 Heart rate 76 /min Dr. Maya Pradhan Work Phone: [facility] 07-22-2023 22:44-0500 SaO2% (BldA) [Mass fraction] 94 % Dr. Maya Pradhan Work Phone: [facility] 07-22-2023 22:44-0500 Systolic blood pressure 129 mm[Hg] Dr. Maya Pradhan Work Phone: [facility] 07-22-2023 20:00-0500 Body mass index (BMI) [Ratio] 38.7 kg/m2 Dr. Maya Pradhan Work Phone: [facility] 07-22-2023 20:00-0500 Body weight 115.[address] Maya Pradhan Work Phone: [facility] 07-22-2023 18:57-0500 Body height 172.[address] Maya Pradhan Work Phone: [facility] 07-15-2023 09:07-0400 Body temperature 98.6 [degF] Dr. Maya Pradhan Work Phone: [facility] 07-15-2023 09:07-0400 Body weight 111.[address] Maya Pradhan Work Phone: [facility] 07-15-2023 09:07-0400 Diastolic blood pressure 70 mm[Hg] Dr. Maya Pradhan Work Phone: [facility] 07-15-2023 09:07-0400 Heart rate 90 /min Dr. Maya Pradhan Work Phone: [facility] 07-15-2023 09:07-0400 Respiratory rate 16 /min Dr. Maya Pradhan Work Phone: [facility] 07-15-2023 09:07-0400 Systolic blood pressure 125 mm[Hg] Dr. Maya Pradhan Work Phone: [facility] 04-29-2023 13:59-0400 Body height 172.[address] Maya Pradhan Work Phone: [facility] 04-29-2023 13:59-0400 Body mass index (BMI) [Ratio] 36.3 kg/m2 Dr. Maya Pradhan Work Phone: [facility] 04-29-2023 13:59-0400 Body weight 108.[address] Maya Pradhan Work Phone: [facility] 04-29-2023 13:59-0400 Diastolic blood pressure 76 mm[Hg] Dr. Maya Pradhan Work Phone: [facility] 04-29-2023 13:59-0400 Heart rate 85 /min Dr. Maya Pradhan Work Phone: [facility] 04-29-2023 13:59-0400 Respiratory rate 16 /min Dr. Maya Pradhan Work Phone: [facility] 04-29-2023 13:59-0400 Systolic blood pressure 123 mm[Hg] Dr. Maya Pradhan Work Phone: [facility] 03-24-2023 13:12-0400 Body mass index (BMI) [Ratio] 36.9 kg/m2 Dr. Maya Pradhan Work Phone: [facility] 03-24-2023 13:12-0400 Body weight 110.[address] Maya Pradhan Work Phone: [facility] 03-24-2023 13:12-0400 Diastolic blood pressure 78 mm[Hg] Dr. Maya Pradhan Work Phone: [facility] 03-24-2023 13:12-0400 Heart rate 92 /min Dr. Maya Pradhan Work Phone: [facility] 03-24-2023 13:12-0400 Respiratory rate 18 /min Dr. Maya Pradhan Work Phone: [facility] 03-24-2023 13:12-0400 Systolic blood pressure 132 mm[Hg] Dr. Maya Pradhan Work Phone: [facility] 11-05-2022 07:39-0500 Body height 172.[address] Maya Pradhan Work Phone: [facility] 11-05-2022 07:39-0500 Body mass index (BMI) [Ratio] 36.9 kg/m2 Dr. Maya Pradhan Work Phone: [facility] 11-05-2022 07:39-0500 Body temperature 97.2 [degF] Dr. Maya Pradhan Work Phone: [facility] 11-05-2022 07:39-0500 Body weight 110.[address] Maya Pradhan Work Phone: [facility] 11-05-2022 07:39-0500 Diastolic blood pressure 71 mm[Hg] Dr. Maya Pradhan Work Phone: [facility] 11-05-2022 07:39-0500 Heart rate 93 /min Dr. Maya Pradhan Work Phone: [facility] 11-05-2022 07:39-0500 Respiratory rate 18 /min Dr. Maya Pradhan Work Phone: [facility] 11-05-2022 07:39-0500 SaO2% (BldA) [Mass fraction] 96 % Dr. Maya Pradhan Work Phone: [facility] 11-05-2022 07:39-0500 Systolic blood pressure 125 mm[Hg] Dr. Maya Pradhan Work Phone: [facility] 09-18-2022 09:33-0500 Body height 172.[address] Maya Pradhan Work Phone: [facility] 09-18-2022 09:33-0500 Body mass index (BMI) [Ratio] 37.2 kg/m2 Dr. Maya Pradhan Work Phone: [facility] 09-18-2022 09:33-0500 Body weight 111.[address] Maya Pradhan Work Phone: [facility] 09-18-2022 09:33-0500 Diastolic blood pressure 76 mm[Hg] Dr. Maya Pradhan Work Phone: [facility] 09-18-2022 09:33-0500 Heart rate 97 /min Dr. Maya Pradhan Work Phone: [facility] 09-18-2022 09:33-0500 Respiratory rate 20 /min Dr. Maya Pradhan Work Phone: [facility] 09-18-2022 09:33-0500 SaO2% (BldA) [Mass fraction] 92 % Dr. Maya Pradhan Work Phone: [facility] 09-18-2022 09:33-0500 Systolic blood pressure 145 mm[Hg] Dr. Maya Pradhan Work Phone: [facility] 03-14-2022 09:53-0400 Body height 172.[address] Maya Pradhan Work Phone: [facility] Work Phone: 03-14-2022 09:53-0400 Body mass index (BMI) [Ratio] 35.6 kg/m2 Dr. Maya Pradhan Work Phone: [facility] Work Phone: 03-14-2022 09:53-0400 Body weight 106.[address] Maya Pradhan Work Phone: [facility] Work Phone: 03-14-2022 09:53-0400 Diastolic blood pressure 64 mm[Hg] Dr. Maya Pradhan Work Phone: [facility] Work Phone: 03-14-2022 09:53-0400 Heart rate 80 /min Dr. Maya Pradhan Work Phone: [facility] Work Phone: 03-14-2022 09:53-0400 Respiratory rate 18 /min Dr. Maya Pradhan Work Phone: [facility] Work Phone: 03-14-2022 09:53-0400 Systolic blood pressure 126 mm[Hg] Dr. Maya Pradhan Work Phone: [facility] Work Phone: 12-06-2021 07:22-0400 Body height 172.[address] Maya Pradhan Work Phone: [facility] Work Phone: 12-06-2021 07:22-0400 Body weight 104.[address] Maya Pradhan Work Phone: [facility] Work Phone: 12-05-2021 08:00-0400 Body mass index (BMI) [Ratio] 35.1 kg/m2 Dr. Maya Pradhan Work Phone: [facility] Work Phone: 11-29-2021 11:26-0400 Body mass index (BMI) [Ratio] 35.1 kg/m2 Dr. Maya Pradhan Work Phone: [facility] Work Phone: 11-29-2021 11:26-0400 Body temperature 97.8 [degF] Dr. Maya Pradhan Work Phone: [facility] Work Phone: 11-29-2021 11:26-0400 Body weight 104.[address] Maya Pradhan Work Phone: [facility] Work Phone: 11-29-2021 11:26-0400 Diastolic blood pressure 70 mm[Hg] Dr. Maya Pradhan Work Phone: [facility] Work Phone: 11-29-2021 11:26-0400 Heart rate 90 /min Dr. Maya Pradhan Work Phone: [facility] Work Phone: 11-29-2021 11:26-0400 Respiratory rate 20 /min Dr. Maya Pradhan Work Phone: [facility] Work Phone: 11-29-2021 11:26-0400 SaO2% (BldA) [Mass fraction] 94 % Dr. Maya Pradhan Work Phone: [facility] Work Phone: 11-29-2021 11:26-0400 Systolic blood pressure 135 mm[Hg] Dr. Maya Pradhan Work Phone: [facility] Work Phone: 11-29-2021 11:26-0400 Body mass index (BMI) [Ratio] 35.1 kg/m2 Dr. Maya Pradhan Work Phone: [facility] Work Phone: 11-29-2021 11:26-0400 Body temperature 97.8 [degF] Dr. Maya Pradhan Work Phone: [facility] Work Phone: 11-29-2021 11:26-0400 Body weight 104.[address] Maya Pradhan Work Phone: [facility] Work Phone: 11-29-2021 11:26-0400 Diastolic blood pressure 70 mm[Hg] Dr. Maya Pradhan Work Phone: [facility] Work Phone: 11-29-2021 11:26-0400 Heart rate 90 /min Dr. Maya Pradhan Work Phone: [facility] Work Phone: 11-29-2021 11:26-0400 Respiratory rate 20 /min Dr. Maya Pradhan Work Phone: [facility] Work Phone: 11-29-2021 11:26-0400 SaO2% (BldA) [Mass fraction] 94 % Dr. Maya Prahdan Work Phone: [facility] Work Phone: 11-29-2021 11:26-0400 Systolic blood pressure 135 mm[Hg] Dr. Maya Pradhan Work Phone: [facility] Work Phone: 10-29-2021 07:41-0500 Body mass index (BMI) [Ratio] 35.1 kg/m2 Dr. Maya Pradhan Work Phone: [facility] Work Phone: 10-29-2021 07:41-0500 Body temperature 97.6 [degF] Dr. Maya Pradhan Work Phone: [facility] Work Phone: 10-29-2021 07:41-0500 Body weight 104.[address] Maya Pradhan Work Phone: [facility] Work Phone: 10-29-2021 07:41-0500 Diastolic blood pressure 67 mm[Hg] Dr. Maya Pradhan Work Phone: [facility] Work Phone: 10-29-2021 07:41-0500 Heart rate 88 /min Dr. Maya Pradhan Work Phone: [facility] Work Phone: 10-29-2021 07:41-0500 Respiratory rate 16 /min Dr. Maya Pradhan Work Phone: [facility] Work Phone: 10-29-2021 07:41-0500 SaO2% (BldA) [Mass fraction] 93 % Dr. Maya Pradhan Work Phone: [facility] Work Phone: 10-29-2021 07:41-0500 Systolic blood pressure 127 mm[Hg] Dr. Maya Pradhan Work Phone: [facility] Work Phone: Encounters Encounter Date Encounter Type Care Provider Facility Start: 07-13-2025 End: 07-13-2025 ambulatory MAYA PRADHAN Facility:[facility] Start: 06-15-2025 End: 06-15-2025 Patient encounter procedure Ruth GARCIA -[facility] Work Phone: Start: 06-15-2025 End: 06-15-[address] Maya Pradhan DO Work Phone: -[facility] Start: 05-29-2025 ambulatory JEREMÍAS FAJARDO [facility] Start: 05-29-2025 End: 05-29-2025 Office outpatient visit 25 minutes Jeremías Fajardo MD Work Phone: [facility] Comment on above: Incomplete bladder e mptying (Primary Dx); Prostate cancer screening Start: 05-29-2025 ambulatory JEREMÍASGIOVANNA FAJARDO [facility] Start: 05-19-2025 End: 05-19-2025 Patient encounter procedure Jeremías Fajardo MD Work Phone: [facility] Comment on above: BPH with obstruction /lower urinary tract symptoms (Primary Dx); Feeling of incomplete bladder emptying Start: 05-19-2025 [facility] Start: 05-11-2025 End: 05-11-2025 Clinical Support Encounter Jia Lee APRN-MANAGER GAME Work Phone: [facility] Comment on above: Feeling of incomplet e bladder emptying (Primary Dx) Start: 05-03-2025 End: 05-03-2025 Patient encounter procedure Kasia GARCIA [facility] Work Phone: Start: 05-03-2025 End: 05-03-[address] Maya Pradhan DO Work Phone: [facility] Start: 04-23-2025 ambulatory DELICIASuraj SWARTZ [facility] Start: 04-17-2025 End: 04-17-2025 Office outpatient new 45 minutes Jia Lee BLEACHER OPERATOR-MANAGER GAME Work Phone: [facility] Comment on above: Urinary urgency (Allyson jake Dx); BPH with obstruction/lower urinary tract symptoms; Urinary frequency; Incomplete bladder emptying; Family history of prostate cancer; Balanitis; Erectile dysfunction due to arterial insufficiency; Testicular swelling Start: 04-17-2025 ambulatory DELICIA Florentino [facility] Start: 03-28-2025 End: 03-28-[address] Maya Pradhan DO Work Phone: -[facility] Services Start: 03-28-2025 End: 03-28-[address] Ricardo Jones DP -Cardiovascular Services Work Phone: Start: 03-28-2025 End: 03-28-2025 ambulatory Ricardo Jones Facility:[facility] Start: 03-21-2025 End: 03-21-2025 Patient encounter procedure Bryon Turner PA-C Work Phone: Urology Comment on above: BPH with obstruction /lower urinary tract symptoms (Primary Dx); Urine retention; Type 2 diabetes mellitus with hyperglycemia, unspecified whether ocean transportation intermediary insulin use (HCC); Screening for genitourinary condition Start: 03-21-2025 End: 03-21-2025 ambulatory MAYA PRADHAN Facility:[facility] Start: 02-13-2025 End: 02-13-[address] Maya Pradhan DO Work Phone: [facility] Work Phone: Start: 02-13-2025 End: 02-13-2025 Patient encounter procedure Kasia Childs PA -Laboratory Work Phone: Start: 02-13-2025 End: 02-13-2025 ambulatory Maya Pradhan Facility:[facility] Start: 01-24-2025 End: 01-24-2025 Office outpatient visit 25 minutes Rochelle Branch PA-C Work Phone: [facility] Comment on above: Tinea cruris (Primar y Dx) Start: 01-24-2025 End: 01-24-2025 ambulatory MAYA PRADHAN Facility:[facility] Start: 12-31-2024 End: 12-31-2024 Patient encounter procedure Marisa Blanco APRN.MANAGER GAME Work Phone: [facility] Comment on above: Tinea cruris (Primar y Dx); Penile irritation Start: 12-31-2024 End: 12-31-2024 ambulatory MAYA A CAROLYNN Facility:[facility] Start: 12-21-2024 End: 12-21-2024 [facility] Start: 12-21-2024 End: 12-21-2024 Patient encounter procedure Sally Herndon APRN.CNP Work Phone: [facility] Comment on above: Skin infection (Prim christiano Dx) Start: 12-19-2024 End: 12-20-2024 Follow-up encounter Bryon Turner PA-C Work Phone: Urology Comment on above: Results Start: 12-13-2024 End: 12-13-2024 ambulatory MAYA PRADHAN Facility:[facility] Start: 12-13-2024 End: 12-13-2024 Patient encounter procedure Bryon Turner PA-C Work Phone: Urology Comment on above: Urinary urgency (Allyson jake Dx); BPH with obstruction/lower urinary tract symptoms; Erectile dysfunction due to arterial insufficiency Start: 11-29-2024 End: 12-02-2024 Telephone encounter Bryon Turner PA-C Work Phone: Urology Comment on above: Patient Question Start: 11-28-2024 End: 12-02-2024 Telephone encounter Bryon Turner PA-C Work Phone: Urology Comment on above: New Patient; Patient Question Start: 11-07-2024 End: 11-07-2024 Emergency department patient visit Dr. Gabe Ivey -Emergency Department Work Phone: Start: 11-04-2024 End: 11-04-2024 Patient encounter procedure Ruth GACRIA -[facility] Work Phone: Start: 11-04-2024 End: 11-04-2024 ambulatory [place] Pradhan [place] [place] Start: 10-31-2024 End: 10-31-[address] Ricardo Jones [facility] Work Phone: Start: 10-31-2024 End: 10-31-2024 ambulatory Ricardo Jones Facility:[facility] Start: 10-11-2024 End: 10-11-2024 ambulatory Carlos Eduardo Hinds NP Facility:[facility] Start: 10-09-2024 End: 10-09-2024 Emergency department patient visit Maya Pradhan Facility:[facility] Start: 10-05-2024 End: 10-05-2024 Telephone encounter Bryon Turner PA-C Work Phone: Urology Start: 10-01-2024 End: 10-01-2024 Patient encounter procedure Ria Branch BLEACHER OPERATOR.MANAGER GAME Work Phone: [facility] Comment on above: Feared condition not demonstrated (Primary Dx); Skin erythema Start: 10-01-2024 End: 10-01-2024 ambulatory Margaret Lo RN NURSE [employer] Comment on above: Difficulty Urinating Start: 09-28-2024 End: 09-28-2024 Telephone encounter Alan Mckeon APRN.MANAGER GAME Work Phone: [facility] Comment on above: Results Start: 09-25-2024 End: 09-26-2024 ambulatory Maya Pradhan Facility:[facility] Start: 09-25-2024 End: 09-25-2024 Patient encounter procedure Kodi Andrewgia BLEACHER OPERATOR.MANAGER GAME Work Phone: [facility] Comment on above: Healing wound (Prima ry Dx) Start: 09-20-2024 End: 09-20-2024 Telephone encounter Anila Banerjee BLEACHER OPERATOR.MANAGER GAME Work Phone: [facility] Comment on above: Results Start: 09-18-2024 End: 09-18-2024 Telephone encounter Ria Branch APRN.MANAGER GAME Work Phone: [facility] Comment on above: Results Start: 09-17-2024 End: 09-17-2024 ambulatory Maya Pradhan DO Work Phone: [facility] Comment on above: Symptoms Start: 09-17-2024 End: 09-17-2024 Patient encounter procedure Kami Younger APRN.MANAGER GAME Work Phone: [facility] Comment on above: Open wound (Primary Dx); Dysuria Start: 09-16-2024 End: 09-16-2024 ambulatory Maya Malys [place] [place] Start: 09-15-2024 ambulatory Lamin A Ring Facility: [facility] Start: 09-13-2024 End: 09-13-2024 Telephone encounter Lamar Quinones APRN.MANAGER GAME Work Phone: Urology Comment on above: Patient Question Start: 09-10-2024 End: 09-10-2024 ambulatory Alex Valeriy Facility:[facility] Start: 09-02-2024 End: 09-02-2024 ambulatory Kasia GARCIA Facility:[facility] Start: 08-26-2024 ambulatory Maya Malys Facility:[facility] Start: 08-23-2024 End: 09-05-2024 ambulatory Lamin A Ring Facility:[facility] Start: 08-22-2024 End: 08-22-2024 ambulatory Maya Malys [place] [place] Start: 08-09-2024 End: 08-13-2024 ambulatory Lamin A Ring Facility:[facility] Start: 08-09-2024 End: 08-09-2024 ambulatory Maya Malys [place] [place] Start: 07-28-2024 End: 07-28-2024 ambulatory Alex Valeriy [place] [place] Start: 07-28-2024 End: 07-28-2024 ambulatory Alex Valeriy Facility:[facility] Start: 07-19-2024 End: 07-19-2024 ambulatory MAYA A MALYS Facility:[facility] Start: 07-19-2024 End: 07-19-2024 Patient encounter procedure Kodi Vuong APRN.MANAGER GAME Work Phone: [facility] Comment on above: Fungal infection of the groin (Primary Dx) Start: 07-14-2024 End: 07-14-2024 Patient encounter procedure Carlos Eduardo Sidhu MD Work Phone: Urology Comment on above: BPH with obstruction /lower urinary tract symptoms (Primary Dx); Urine retention; OAB (overactive bladder) Start: 06-24-2024 ambulatory Alex Valeriy Facility:[facility] Start: 06-21-2024 End: 06-21-2024 Office outpatient visit 25 minutes Lamar Quinones APRN.MANAGER GAME Work Phone: Urology Comment on above: BPH with obstruction /lower urinary tract symptoms (Primary Dx); Urine retention Start: 06-15-2024 End: 06-15-2024 Telephone encounter Lamar Quinones APRN.BENJAMIN Work Phone: Urology Comment on above: Appointment Start: 06-10-2024 End: 06-10-2024 Telephone encounter Lamar Quinones APRN.CNP Work Phone: Urology Comment on above: Patient Question Start: 03-29-2024 End: 03-29-2024 Patient encounter procedure Lamar Quinones APRN.MANAGER GAME Work Phone: Urology Comment on above: BPH with obstruction /lower urinary tract symptoms (Primary Dx); Type 2 diabetes mellitus without retinopathy (HCC); Erectile dysfunction due to arterial insufficiency; Family history of prostate cancer Start: 02-01-2024 End: 02-02-2024 ambulatory GLENDY CARDOZA APRN-BENJAMIN Facility:A Start: 02-01-2024 End: 02-02-[address] JEREMÍAS VAZ MD [facility] Start: 01-14-2024 Non-patient / Non-visit Dr. Akiko Pradhan Work Phone: [facility] Start: 01-14-2024 End: 01-14-[address] Maya Pradhan Work Phone: [facility] Work Phone: Start: 01-14-2024 End: 01-14-[address] Maya Pradhan Work Phone: [facility]-Laboratory Work Phone: Start: 01-13-2024 End: 01-13-[address] Maya Pradhan Work Phone: [facility] Work Phone: Start: 01-04-2024 Non-patient / Non-visit Dr. Akiko Pradhan Work Phone: [facility] Start: 01-04-2024 End: 01-04-[address] Maya Pradhan Work Phone: [facility] Work Phone: Start: 01-04-2024 End: 01-04-[address] [facility] Work [facility]: Start: 12-18-2023 End: 12-18-[address] JEREMÍAS VAZ MD Facility:[facility] Start: 12-10-2023 End: 12-10-[address] Maya Pradhan Work Phone: [facility] Work Phone: Start: 12-10-2023 End: 12-10-[address] [facility] Start: 12-07-2023 End: 12-07-[address] Maya Pradhan Work Phone: [facility] Work Phone: Start: 11-17-2023 End: 11-17-[address] Maya Pradhan Work Phone: [facility] Work Phone: Start: 10-21-2023 End: 10-21-[address] Maya Pradhan Work Phone: [facility] Work Phone: Start: 10-17-2023 End: 10-17-2023 Office outpatient visit 15 minutes Gelacio Burgos APRN.CNP Work Phone: [facility] Comment on above: Itching (Primary Dx) Start: 10-15-2023 End: 10-15-[address] Maya Pradhan Work Phone: [facility]-Pulmonary Medicine [facility] Work Phone: Start: 10-07-2023 End: 10-07-[address] Maya Pradhan Work Phone: [facility] Work Phone: Start: 09-30-2023 Non-patient / Non-visit Dr. Akiko Pradhan Work Phone: [facility] Start: 09-30-2023 End: 09-30-2023 Admission to same day surgery center Dr. Maya Pradhan Work Phone: [facility]-Stage Set Up Worker/Special Procedures Work Phone: Start: 09-30-2023 End: 09-30-[address] Maya Pradhan Work Phone: [facility] Work Phone: Start: 08-20-2023 End: 08-20-[address] Maya Pradhan Work Phone: [facility] Work Phone: Start: 07-30-[address] Maya strickland Work Phone: [facility] - [place] Start: 07-29-2023 End: 07-29-[address] Maya Pradhan Work Phone: [facility] Work Phone: Start: 07-28-2023 Non-patient / Non-visit Dr. Akiko Pradhan Work Phone: [facility] Work Phone: Start: 07-27-2023 Non-patient / Non-visit Dr. Akiko Pradhan Work Phone: [facility] Work Phone: Start: 07-26-2023 Non-patient / Non-visit Dr. Akiko Pradhan Work Phone: [facility] Work Phone: Start: 07-25-2023 Non-patient / Non-visit Dr. Akiko Pradhan Work Phone: [facility] Work Phone: Start: 07-24-2023 Non-patient / Non-visit Dr. Akiko Pradhan Work Phone: [facility] Work Phone: Start: 07-23-2023 Non-patient / Non-visit Dr. Akiko Pradhan Work Phone: [facility] Work Phone: Start: 07-22-2023 End: 07-28-2023 Evaluation and management of inpatient Dr. Maya Pradhan Work Phone: [facility]-Progressive Care Unit Work Phone: Start: 07-15-2023 End: 07-15-[address] Maya Pradhan Work Phone: [facility] Work Phone: Start: 07-10-2023 End: 07-10-[address] Maya Pradhan Work Phone: [facility] Work Phone: Start: 07-10-2023 End: 07-10-[address] Maya Pradhan Work Phone: [facility]-Cardiovasla r Services Work Phone: Start: 07-09-2023 End: 07-09-[address] Maya Pradhan Work Phone: [facility] Work Phone: Start: 07-09-2023 End: 07-09-[address] Maya Pradhan Work Phone: [facility]-Laboratory, Specimen Work Phone: Start: 04-29-2023 End: 04-29-[address] Maya Pradhan Work Phone: [facility] Work Phone: Start: 04-01-2023 Non-patient / Non-visit Dr. Akiko Pradhan Work Phone: [facility] Work Phone: Start: 04-01-2023 Non-patient / Non-visit Dr. Akiko Pradhan Work Phone: [facility] Start: 04-01-2023 End: 04-01-[address] Maya Pradhan Work Phone: [facility]-Cardiovasla r Services Work Phone: Start: 03-24-2023 End: 03-24-[address] Maya Pradhan Work Phone: [facility] Work Phone: Start: 02-19-2023 End: 02-19-[address] Maya Pradhan Work Phone: [facility] Work Phone: Start: 02-19-2023 End: 02-19-[address] Maya Pradhan Work Phone: [facility]-Laboratory Start: 01-02-2023 End: 01-06-2023 Outreach Lab AMERICA JURGEN BLEACHER OPERATOR-MANAGER GAME [facility] Start: 12-15-2022 End: 12-15-[address] Maya Pradhan Work Phone: [facility] Work Phone: Start: 12-15-2022 End: 12-15-[address] Maya Pradhan Work Phone: [facility]-Laboratory, [facility] Start: 11-05-2022 End: 11-05-[address] Maya Pradhan Work Phone: [facility]-Pulmonary Medicine [facility] Start: 09-19-2022 Non-patient / Non-visit Dr. Akiko Pradhan Work Phone: [facility] Start: 09-19-2022 End: 09-19-[address] Maya Pradhan Work Phone: [facility] Work Phone: Start: 09-19-2022 End: 09-19-[address] Maya Pradhan Work Phone: [facility]-Cardiovascula r Services Start: 09-18-2022 End: 09-18-[address] Maya Pradhan Work Phone: [facility] Start: 07-28-2022 End: 07-28-2022 Patient encounter procedure MIGUEL ANGEL QUINN BLEACHER OPERATOR-MANAGER GAME [facility] Start: 04-30-2022 End: 05-04-2022 Outreach Lab JAYNA SKINNER BLEACHER OPERATOR-MANAGER GAME [facility] Start: 03-14-2022 End: 03-14-[address] Maya Pradhan Work Phone: [facility] Start: 03-13-2022 End: 03-13-[address] Maya Pradhan Work Phone: [facility]-Laboratory, Specimen Start: 01-14-2022 End: 01-14-[address] Maya Pradhan Work Phone: [facility]-Cardiovascula r Services Start: 12-30-2021 End: 12-30-[address] [facility] Start: 12-06-2021 End: 12-06-2021 Admission to same day surgery center Dr. Maya Pradhan Work Phone: [facility]-Stage Set Up Worker/Special Procedures Start: 11-29-2021 End: 11-29-[address] Maya Pradhan Work Phone: [facility] Start: 11-21-2021 Non-patient / Non-visit Dr. Akiko Pradhan Work Phone: [facility] Start: 11-21-2021 End: 11-21-[address] [facility] Start: 10-30-2021 End: 10-30-[address] Maya Pradhan Work Phone: [facility] Start: 10-29-2021 End: 10-29-[address] Maya Pradhan Work Phone: [facility]-Pulmonary Medicine [facility] Start: 10-11-2021 End: 10-11-[address] Maya Pradhan Work Phone: [facility]-Laboratory Start: 08-19-2018 End: 08-19-2018 Patient encounter procedure George Rainey Facility:[facility] Start: 08-19-2018 Patient encounter procedure Facility:[id number] Start: 07-29-2018 End: 07-29-2018 Patient encounter procedure George Rainey Facility:[facility] Start: 07-29-2018 Patient encounter procedure Facility:[id number] Start: 06-16-2018 End: 06-17-2018 Patient encounter procedure Lloyd Mejía Facility:[facility] Start: 06-16-2018 Patient encounter procedure Facility:[id number] Start: 06-14-2018 End: 06-15-2018 Patient encounter procedure Lloyd Craig [facility] Facility:[facility] Procedures Date Procedure Procedure Detail Performing Clinician Start: 05-19-2025 Cystourethroscopy Jeremías Fajardo MD Work Phone: Start: 05-19-2025 Us transrectal Jeremías Fajardo MD Work Phone: Start: 05-19-2025 Urnls dip stick/tablet rgnt auto w/o microscopy Jeremías Fajardo MD Work Phone: Start: 04-17-2025 Urnls dip stick/tablet rgnt auto w/o microscopy Jia Lee BLEACHER OPERATOR-MANAGER GAME Work Phone: Start: 03-21-2025 Urnls dip stick/tablet rgnt auto w/o microscopy Bryon Turner PA-C Work Phone: Start: 12-13-2024 Urnls dip stick/tablet rgnt auto w/o microscopy Bryon Turner PA-C Work Phone: Start: 11-07-2024 X-ray of chest, PA and lateral views Dr. Maya Pradhan DO Work Phone: Start: 11-07-[address] Maya Pradhan DO Work Phone: Start: 11-07-2024 Measurement of renal function Dr. Maya Pradhan DO Work Phone: Comment on above: GFR Calc Start: 10-31-2024 MRI of lower extremity Dr. Maya Pradhan DO Work Phone: Start: 09-17-2024 Urnls dip stick/tablet rgnt auto w/o microscopy [facility] Provider Start: 07-14-2024 Urnls dip stick/tablet rgnt auto w/o microscopy Carlos Eduardo Sidhu MD Work Phone: Start: 03-29-2024 Urnls dip stick/tablet rgnt auto w/o microscopy Lamar Quinones BLEACHER OPERATOR.MANAGER GAME Work Phone: Start: 01-14-2024 Plain chest X-ray Dr. Maya Pradhan Work Phone: Start: 01-04-2024 Cardiovascular stress test using pharmacologic stress agent Dr. Maya Pradhan Work Phone: Start: 07-28-[address] Maya Pradhan Work Phone: Start: 07-26-2023 CT of head without contrast Dr. Maya Pradhan Work Phone: Start: 07-23-2023 Investigation of transfusion reaction Dr. Maya Pradhan Work Phone: Start: 07-23-2023 Microbial culture, routine Dr. Maya ortega Work Phone: Start: 07-23-2023 CT of head without contrast Dr. Maya Pradhan Work Phone: Start: 07-09-2023 Investigation of transfusion reaction Dr. Maya Pradhan Work Phone: Start: 07-09-2023 Microbial culture, routine Dr. Maya ortega Work Phone: Start: 11-29-2021 Plain chest X-ray Dr. Maya Pradhan Work Phone: Start: 11-21-2021 Cardiovascular stress test using pharmacologic stress agent Dr. Maya Pradhan Work Phone: Start: 10-30-[address] Maya Pradhan Work Phone: Start: 04-13-2019 History of placement of stent for coronary artery disease History of coronary artery stent placement Dr. Maya Pradhan Work Phone: Comment on above: PCI-ALEXANDRO-Mid LAD w/ 3.0 x [address] ent 07/11/2017; PCI-ALEXANDRO-Mid LAD ALEXANDRO 2.25 x 38 mm 04/13/2019 Start: 10-10-2008 Colonoscopy Gelacio Burgos BLEACHER OPERATOR.MANAGER GAME Work Phone: Appendectomy JAYNADENA CARSON BLEACHER OPERATOR-MANAGER GAME Cholecystectomy JAYNA HARVEY EIJONO BLEACHER OPERATOR-MANAGER GAME H/O: surgery History of explo ratory laparotomy Dr. Maya Pradhan Work Phone: H/O: vasectomy History of vasectomy Dr. Oz Pradhan Work Phone: Heart structure (bod y structure) JAYNA SKINNER BLEACHER OPERATOR-MANAGER GAME Comment on above: cardiac stents Jun History of appendectomy History of append ectomy Dr. Maya Pradhan Work Phone: History of cholecystectomy Histo ry of cholecystectomy Dr. Maya Pradhan Work Phone: History of operative procedure on knee History of left knee surgery Dr. Maya Pradhan Work Phone: Comment on above: meniscus repait Investigation of transfusion reaction Dr. Maya Pradhan Work Phone: Lipoma (disorder) JAYNA SKINNER BLEACHER OPERATOR-MANAGER GAME Comment on above: removal Repair of meniscus JAYNA SKINNER BLEACHER OPERATOR-MANAGER GAME Comment on above: left Vasectomy JAYNA CARSON BLEACHER OPERATOR-MANAGER GAME Plan of Treatment Date Care Activity Detail Author Start: 10-09-2034 Tetanus vaccination [facility] Start: 10-09-2034 Urine microalbumin profile DTaP,Tdap,Td Vaccine (2 - Td or Tdap) [facility] Start: 2026 RSV VACCINE (1 - 1-dose 75+ series) RSV VACCINE (1 - 1-dose 75+ series) [facility] Start: 03-27-2026 End: 03-27-2026 Patient encounter procedure 03/27/2026 8:00 AM EDT Office Visit Urology [address] [place] [address] Bryon Turner PA-C [address] [place] [address] 1 yr f/u-BPH Urology Comment on above: 1 yr f/u-BPH Start: 12-21-2025 BP Controlled (<130/80) BP Controlled (<130/80) [facility] Start: 09-25-2025 BP Controlled (<130/80) BP Controlled (<130/80) [facility] Start: 09-17-2025 BP Controlled (<130/80) BP Controlled (<130/80) [facility] Start: 05-29-2025 End: 05-29-2025 Patient encounter procedure 05/29/2025 11:00 AM EDT [facility] [address] [place] [id number] Jeremías Fajardo MD [address] [place] [address] [facility] Start: 05-19-2025 End: 05-19-2025 Patient encounter procedure 05/19/2025 9:00 AM EDT [facility] [address] [place] [address] Jeremías Fajardo MD [address] [place] [address] [facility] Start: 05-15-2025 COVID-19 VACCINE ( season) COVID-19 VACCINE ( season) [facility] Start: 05-15-2025 Influenza [facility] Start: 05-11-2025 End: 05-11-2025 Clinical Support Encounter 05/11/2025 8:00 AM EDT Clinical Support Encounter [facility] [address] [place] [address] [facility] Start: 04-17-2025 End: 04-17-2026 US Kidney US RENAL RETROPERITONEAL Imaging Routine Incomplete bladder emptying Expected: 04/17/2025, Expires: 04/17/2026 [facility] Comment on above: Expected: 04/17/2025, Expires: Start: 04-17-2025 End: 04-17-2026 US.doppler Scrotum and testicle US SCROTUM AND TESTICLES WITH DOPPLER Imaging Routine Testicular swelling Expected: 04/17/2025, Expires: 04/17/2026 [facility] Comment on above: Expected: 04/17/2025, Expires: Start: 03-14-2025 End: 03-14-2025 Patient encounter procedure 03/14/2025 9:30 AM EDT Office Visit Urology [address] [place] [address] Bryon Turner PA-C [address] [place] [address] 3 month follow up Urology Comment on above: 3 month follow up Start: 12-27-2024 End: 12-27-2024 Patient encounter procedure 12/27/2024 8:00 AM EDT Office Visit Urology [address] [place] [address] Bryon Turner PA-C [address] [place], [place] [id number] Erectile Dysfunction Consult- Referred by Lamar Quinones [facility] Comment on above: Erectile Dysfunction Consult- Referred Carloz Quinones Start: 12-13-2024 End: 03-14-2025 Prostate Specific Ag Free [Mass/volume] in Serum or Plasma PROSTATE SPECIFIC ANTIGEN, FREE Lab Routine Family history of prostate cancer Expected: 12/13/2024 (Approximate), Expires: 03/14/2025 [facility] Comment on above: Expected: 12/13/2024 (Approximate), Expi res: 03/14/2025 Start: 11-07-2024 [facility] Start: 11-07-2024 [facility] Start: 10-11-2024 End: 10-11-2024 Patient encounter procedure 10/11/2024 10:30 AM EST Office Visit Urology [address] [place] [address] Bryon Turner PA-C [address] [place] [address] ED-Patient is est at [facility] Comment on above: ED-Patient is est at [place] Start: 09-17-2024 End: 12-17-2024 Bacteria identified in Wound by Culture ABSCESS AND WOUND CULTURE WITH GRAM STAIN Microbiology Routine Open wound Expected: 09/17/2024, Expires: 12/17/2024 [facility] Comment on above: Expected: 09/17/2024, Expires: Start: 09-17-2024 End: 12-17-2024 Fungus identified in Unspecified specimen by Culture YEAST SCREEN Microbiology Routine Open wound Expected: 09/17/2024, Expires: 12/17/2024 [facility] Comment on above: Expected: 09/17/2024, Expires: Start: 09-14-2024 Advance Directive Discussion Advance Directive Discussion [facility] Start: 09-14-2024 Medicare Advantage Annual Wellness Visit Medicare Advantage Annual Wellness Visit [facility] Start: 07-14-2024 End: 07-14-2024 Patient encounter procedure 07/14/2024 8:30 AM EDT Office Visit Urology [address] [address] Carlos Eduardo Sidhu MD [address] [place] [id number] [facility] Comment on above: [facility] Start: 06-21-2024 End: 06-21-2024 Patient encounter procedure 06/21/2024 9:20 AM EDT Office Visit Urology [address] [address] Lamar Quinones, BLEACHER OPERATOR.MANAGER GAME [address] [place] [address] Follow up, Perez when in hospital, now urgency Urology Comment on above: Follow up, Perez when in hospital, now u rgency Start: 06-10-2024 End: 09-09-2024 Bacteria identified in Urine by Culture URINE CULTURE Microbiology Routine UTI symptoms Expected: 06/10/2024, Expires: 09/09/2024 [facility] Work Phone: Comment on above: Expected: 06/10/2024, Expires: Start: 06-10-2024 End: 09-09-2024 URINALYSIS, DIPSTICK ONLY URINALYSIS, DIPSTICK ONLY Lab Routine UTI symptoms Expected: 06/10/2024, Expires: 09/09/2024 [facility] Comment on above: Expected: 06/10/2024, Expires: Start: 05-15-2024 Covid-19 Vaccine ( season) Covid-19 Vaccine ( season) [facility] Start: 05-15-2024 Influenza vaccination Influenza Vaccine (#1) [facility] Start: 09-30-2023 Patient discharge [facility] Start: 09-14-2023 Advance Directive Discussion Advance Directive Discussion [facility] Start: 09-14-2023 Behavioral Health Screening Behavioral Health Screening [facility] Start: 09-14-2023 Depression Assessment Depression Assessment [facility] Start: 07-28-2023 Patient discharge [facility] Start: 07-26-2023 Inhalation therapy procedure [facility] Start: 07-26-2023 [facility] Start: 07-25-2023 Lab findings surveillance [facility] Start: 07-25-2023 Notification of physician [facility] Start: 07-25-2023 Care regimes management [facility] Start: 07-23-2023 Following clinical pathway protocol [facility] Start: 07-23-2023 Referral to service [facility] Start: 07-23-2023 Referral to occupational therapist [facility] Start: 07-23-2023 Wound care [facility] Start: 07-23-2023 Oxygen therapy [facility] Start: 07-23-2023 Consultation [facility] Start: 07-23-2023 Patient referral to dietitian [facility] Start: 07-22-2023 Consultation for treatment [facility] Start: 07-22-2023 Admission procedure [facility] Start: 07-22-2023 Hospital admission, emergency, from emergency room, medical nature [facility] Start: 07-22-2023 Following clinical pathway protocol [facility] Start: 05-15-2023 Covid-19 Vaccine ( season) Covid-19 Vaccine ( season) [facility] Start: 03-13-2022 [facility] Work Phone: Start: 06-21-2019 Glaucoma screening Dilated Retinal Exam [facility] Start: 2011 RSV Vaccine (1 - 1-dose 60+ series) RSV Vaccine (1 - 1-dose 60+ series) [facility] Start: 2011 RSV Vaccine (1 - Risk 60-74 years 1-dose series) RSV Vaccine (1 - Risk 60-74 years 1-dose series) [facility] Start: 10-10-2009 Screening for malignant neoplasm of colon [facility] Start: 06-14-2008 Pneumococcal vaccination PNEUMOCOCCAL VACCINE SERIES (2 of 2 - PCV) [facility] Start: 06-14-2008 Pneumococcal Vaccine: 50+ (2 of 2 - PCV) Pneumococcal Vaccine: 50+ (2 of 2 - PCV) [facility] Start: 06-14-2008 Pneumococcal Vaccine: 65+ (2 of 2 - PCV) Pneumococcal Vaccine: 65+ (2 of 2 - PCV) [facility] Start: 2001 Shingrix Vaccine (1 of 2) Shingrix Vaccine (1 of 2) [facility] Start: 2001 Zoster vaccine hzv live for subcutaneous use ZOSTER (SHINGLES) VACCINE (1 of 2) [facility] Start: 1996 Screening for malignant neoplasm of colon [facility] Start: 1991 Lipid panel LIPID SCREENING [facility] Start: 1970 Urine microalbumin profile DTaP,Tdap,Td Vaccine (1 - Tdap) [facility] Start: 1969 Annual PCP Team Chronic Disease Visit Annual PCP Team Chronic Disease Visit [facility] Start: 1969 Anxiety Screening Anxiety Screening [facility] Start: 1969 BP Controlled (<130/80) BP Controlled (<130/80) [facility] Start: 1969 Depression Screening Depression Screening [facility] Start: 1969 Hepatitis B surface antibody level LDL Cholesterol [facility] Start: 1969 Hepatitis C screening Hepatitis C Screening [facility] Start: 1961 Diabetic foot examination Diabetic Foot Exam [facility] Start: 1961 Hepatitis B screening Urine Albumin:Creatinine Ratio [facility] Start: 1956 Hemoglobin A1c measurement HbA1C [facility] Start: 1951 Hepatitis C screening HEPATITIS C VIRUS SCREENING [facility] Anaerobic Culture Anaerobic Culture [facility] Work Phone: Bacteria identified in Sputum by Culture [facility] Bacteria identified in Unspecified specimen by Anaerobe culture [facility] Work Phone: Bacteria identified in Urine by Culture URINE CULTURE Microbiology Routine Dysuria Ordered: 09/17/2024 [facility] Work Phone: Comment on above: Ordered: 09/17/2024 Bacteria identified in Urine by Culture BACTERIAL CULTURE, URINE Microbiology Routine Urinary urgency Ordered: 12/13/2024 [facility] Comment on above: Ordered: 12/13/2024 BLADDER SCAN BLADDER SCAN Pro cedures Routine BPH with obstruction/lower urinary tract symptoms Ordered: 03/29/2024 [facility] Work Phone: Comment on above: Ordered: 03/29/2024 Catheterization of l eft heart [facility] Cystourethroscopy CYSTO.PANENDO Procedures Routine BPH with obstruction/lower urinary tract symptoms Urine retention 1 Occurrences starting 06/21/2024 [facility] Work Phone: Comment on above: 1 Occurrences starting 06/21/2024 Ale post-voiding re sidual urine&/bladder cap MD ALE POST-VOIDING RESIDUAL URINE&/BLADDER CAP MD Charge Routine Urinary urgency Urinary frequency BPH with obstruction/lower urinary tract symptoms Erectile dysfunction due to arterial insufficiency Ordered: 04/17/2025 [facility] Comment on above: Ordered: 04/17/2025 Ale post-voiding re sidual urine&/bladder cap MD ALE POST-VOIDING RESIDUAL URINE&/BLADDER CAP MD Charge Routine Incomplete bladder emptying Ordered: 05/29/2025 [facility] Comment on above: Ordered: 05/29/2025 Microbial culture, routine Wound Culture [facility] Work Phone: NM Heart Views W str ess and W radionuclide IV [facility] Patient Education ED Anxiety Sturgeon ction ED Chest Pain, Noncardiac [facility] Work Phone: Patient referral [facility] Work Phone: POST VOID RESIDUAL POST VOID RES IDUAL Procedures Routine BPH with obstruction/lower urinary tract symptoms Erectile dysfunction due to arterial insufficiency Ordered: 12/13/2024 [facility] Work Phone: Comment on above: Ordered: 12/13/2024 POST VOID RESIDUAL POST VOID RES IDUAL Procedures Routine BPH with obstruction/lower urinary tract symptoms Screening for genitourinary condition Ordered: 03/21/2025 [facility] Work Phone: Comment on above: Ordered: 03/21/2025 Simple cystometrogram MD SIMPLE CYSTOMETROGRAM MD Charge Routine Feeling of incomplete bladder emptying Ordered: 05/11/2025 [facility] Work Phone: Comment on above: Ordered: 05/11/2025 Immunizations Immunization Date Immunization Notes Care Provider Fa [facility] 10-09-2024 tetanus toxoid, redu timothy diphtheria toxoid, and acellular pertussis vaccine, adsorbed Dr. Maya Pradhan DO Work Phone: [facility] 06-29-2024 influenza virus vaccine, unspecified formulation Bryon Turner PA-C Work Phone: [facility] 06-24-2023 influenza virus vaccine, unspecified formulation Lamar Quinones BLEACHER OPERATOR.MANAGER GAME Work Phone: [facility] 06-11-2022 influenza virus vaccine, unspecified formulation [facility] BLEACHER OPERATOR-MANAGER GAME [facility] 12-17-2021 SARS-CoV-2 (COVID-19 ) mRNA-1273 vaccine [facility] BLEACHER OPERATOR-MANAGER GAME [facility] Comment on above: Result Comment: 2021: BOOSTER #2 07-29-2021 SARS-CoV-2 (COVID-19 ) mRNA-1273 vaccine [facility] BLEACHER OPERATOR-MANAGER GAME [facility] 12-05-2020 Covid (Moderna) Dr. Maya conklin Work Phone: [facility] 11-07-2020 Covid (Moderna) Dr. Maya conklin Work Phone: [facility] Comment on above: Result Comment: 2020: [id number] 06-14-[address] Maya Pradhan Work Phone: [facility] 06-18-[address] Maya Pradhan Work Phone: [facility] 06-14-2007 pneumococcal polysaccharide vaccine, 23 valent Gelacio Burgos BLEACHER OPERATOR.MANAGER GAME Work Phone: [facility] Payers Date Payer Category Payer Self-pay [id number] 2019 Medicare HUMANA MEDICARE HUMANA MEDICARE PPO [id number] 2019-Present [phone] [address] [address] [place] [address] PPO [id number] 2019 Medicare (Managed Care) 1.2. [id number] 2018 Private Health Insurance 2016 Private Health Insurance [id number] 1950 Unknown [id number] 2.16.840.1.141726.3.579.2 .717 1950 Unknown [id number] 2.16.840.1.876185.3.579.2 .717 1950 Unknown [id number] 2.16.840.1.911463.3.579.2 .717 1950 Unknown [id number] 2.16.840.1.322865.3.579.2 .717 1950 Unknown [id number] 2.16.840.1.994760.3.579.2 .356 1950 Unknown [id number] 2.16.840.1.842581.3.579.2 .356 1950 Unknown [id number] 2.16.840.1.886556.3.579.2 .356 1950 Unknown [id number] 2.16.840.1.184044.3.579.2 .627 1950 Unknown [id number] 2.16.840.1.393298.3.579.2 .627 1950 Unknown [id number] 2.16.840.1.950053.3.579.2 .627 1950 Unknown [id number] 2.16.840.1.599134.3.579.2 .983 1950 Unknown [id number] 2.16.840.1.642014.3.579.2 .983 1950 Unknown [id number] 2.16.840.1.790740.3.579.2 .983 1950 Unknown [id number] 2.16.840.1.297090.3.579.2 .983 1950 Unknown [id number] 2.16.840.1.983070.3.579.2 .983 1950 Unknown [id number] 2.16.840.1.538080.3.579.2 .983 1950 Unknown [id number] 2.16.840.1.534546.3.579.2 .983 Medicare [id number] Unknown [id number] 2.16.840.1.006760.3.579.2 .462 Unknown [id number] 2.16.840.1.349788.3.579.2 .462 Unknown [id number] 2.16.840.1.238666.3.579.2 .462 Unknown [id number] 2.16.840.1.438974.3.579.2 .462 Unknown [id number] 2.16.840.1.604285.3.579.2 .462 Unknown [id number] 2.16.840.1.430834.3.579.2 .462 Unknown [id number] 2.16.840.1.857127.3.579.2 .462 Unknown [id number] 2.16.840.1.190227.3.579.2 .462 Unknown [id number] 2.16.840.1.824094.3.579.2 .462 Unknown [id number] 2.16.840.1.424553.3.579.2 .462 Unknown [id number] 2.16.840.1.557414.3.579.2 .462 Unknown [id number] 2.16.840.1.556050.3.579.2 .462 Unknown [id number] 2.16.840.1.492026.3.579.2 .462 Unknown [id number] 2.16.840.1.971560.3.579.2 .462 Unknown [id number] 2.16.840.1.401078.3.579.2 .462 Unknown [id number] 2.16.840.1.886693.3.579.2 .462 Unknown [id number] 2.16.840.1.836117.3.579.2 .462 Unknown [id number] 2.16.840.1.713450.3.579.2 .462 Unknown [id number] 2.16840.1.598907.3.579.2 .462 Unknown [id number] 2.16.840.1.998560.3.579.2 .462 Unknown [id number] 2.16840.1.055899.3.579.2 .462 Unknown [id number] 2.16840.1.347218.3.579.2 .462 Social History Date Type Detail Facility Start: 12-06-2021 End: 01-20-2024 Tobacco smoking status WYIS Unknown if ever smoked [facility] Start: 02-04-2021 None [facility] Start: 04-29-2019 With Family [facility] Start: 02-04-2021 Chew [facility] Start: 1950 Sex Assigned At Male [facility] Start: 08-28-2020 End: 11-07-2024 Tobacco smoking status Never smoked tobacco (finding) [facility] Sex Assigned At Sex [facility] Start: 02-09-2013 End: 05-08-2022 Tobacco use and exposure Former smokeless tobacco user [facility] End: 01-10-2013 History of tobacco use Chews Tobacco [facility] Start: 10-17-2023 End: 05-29-2025 Alcohol intake Current non-drinker of alcohol (finding) [facility] Start: 10-17-2023 End: 05-29-2025 History of [address] [facility] Start: 10-17-2023 End: 05-29-2025 Tobacco use panel [facility] National Score (1-100), lower number is lower risk Not on file [facility] Start: 1950 Sex Assigned At Not on file C [facility] Start: 02-02-2024 Tobacco smoking status Ex-smoker (finding) [facility] Start: 12-13-2024 End: 03-21-2025 Alcoholic beverage intake Ex-drinker (finding) [facility] Start: 12-31-2012 Sex Male (finding) [facility] NEGATED: Highlighted rowStart: NINF History of tobacco use Passive smoker [facility] Medical Equipment Procedure Code Equipment Code Equipment Origin al Text Equipment Identifier Dates Accu-Chek Lindsay Plus test strips, See Instructions, TID, 0 Refill(s) Start: 08-28-2020 Accu-Chek Lindsay Plus test strips, See Instructions, TID, 0 Refill(s) Start: 08-28-2020 Accu-Chek Lindsay Plus test strips, See Instructions, TID, 0 Refill(s) Start: 08-28-2020 [id number] Start: 03-15-2022 Accu-Chek Lindsay Plus test strips, See Instructions, TID, 0 Refill(s) Start: 08-28-2020 Accu-Chek Lindsay Plus test strips, See Instructions, TID, 0 Refill(s) Start: 08-28-2020 Drug-eluting coronary artery stent, [id number] lymer-coated [id number] FDA Start: 01-26-2024 Goals Date Patient Goal Desired Activity /State Functional Status Date Assessment Result Facility 07-28-2023 Functional status Chair [facility] Work Phone: Mental Status Date Assessment Result Facility 11-07-2024 Cognitive function Voice/Name [facility] Work Phone: 07-28-2023 Cognitive function Voice/Name;To uch/Shaking;L ight Pain;Deep Pain [facility] Work Phone: Clinical Notes 06-21-2018 to 07-13-2025 Jeremías Fajardo MD - 05/29/2025 11:00 AM Renetta Huynh - 05/29/2025 11:00 AM Sylvie Fajardo MD - 05/19/2025 9:00 AM EDTAlcidesrickey RichterLino - 05/19/2025 9:00 AM EDT Note Date & Type Note Facility 07-13-2025 Note HNO ID: [id number] Author: JOSE INMAN MD Service: ? Author Type: Physician Type: Progress Notes Filed: 07/13/2025 13:53 Note Text: [facility] Subjective Blanca Gill is a 74 year old male. Patient presents with: Rash: In groin, itchy, bleeding Rash: Location: groin and foreskin Duration: chronic condition; noticed it was flared up last night Pruritis: Yes Pain: No Change: waxing and waning Bleeding/ulceration/blister/pust ule: no bleeding yet Contacts with rash: No Exposure: Has psoriasis, diabetes is out of control, wears a diaper for urinary incontinence. Recent illness: No. Treatment: ran out of prescribed cream (not sure what it is). Usually uses cream and powder. Rash Review of Systems Skin: Positive for rash. Objective BP 125/67 Pulse 89 Temp 36.9 ?C (98.4 ?F) Resp 20 Wt 114.8 kg (253 lb 1.4 oz) SpO2 (!) 87% BMI 41.48 kg/m? Physical Exam Exam conducted with a design sales consultant present (Jorge Herndon CNP present for exam). Constitutional: General: He is not in acute distress. Genitourinary: Penis: Uncircumcised. No erythema or swelling. Comments: Erythematous rash with defined border bilateral inguinal creases and scrotum with symmetric pattern on opposing surfaces. Neurological: Mental Status: He is alert. {ASSESSMENT/PLAN: 1. Psoriasis - ICD9: 696.1, ICD10: L40.9 (primary diagnosis) 2. Tinea cruris - ICD9: 110.3, ICD10: B35.6 Patient reports chest pain coordinator told him the rash was likely coexisting psoriasis and fungal infection. Refill - CLOTRIMAZOLE 1 % TOPICAL CREAM Discussed importance of maintaining sugar control and dry area to reduce incidence of jock itch. Jose Inman MD Differential Diagnoses - Tinea cruris - Psoriasis Procedures [facility] 05-29-2025 History of Present illness Narrative Chief Complaint Benign prostatic hyperplasia History of Present Illness 74 y.o. male with a history of BPH and voiding dysfunction. Patient returns to review findings of cysto/TRUS and UroCuff testing. Data Reviewed AUAss: Not done. PVR: 266 PSA (Jul 2022): 1.22 Cysto: Intravesical protrusion of small median lobe, severely obstructed lateral lobes TRUS: Prostate volume 50.31 cc UroCuff: Uroflowmetry: Average flow rate: 11.6 mL/min Max flow rate: 23.3 mL/min Void volume: 442 mL PVR: 9 mL Voiding Cystometry: The voiding curve was shipley variant and flattened. The A-G nomogram was equivocal. Impression: EMG activity was synergistic. Additional information can be found on scanned document within the patient's chart. Comments: PFS 73%, high pressure, but high flow. History Allergies[1] has 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.9) on their problem list. Current Medications[2] family history includes Diabetes in his mother; Other - Specify in his father and mother. Past Medical History[3] Past Surgical History[4] Tobacco Use History[5] Social History Substance and Sexual Activity Alcohol Use No Physical Examination Vital Signs: Smoking Status Never Constitutional: Oriented to person, place, and time. Appears well developed and well nourished. Eyes: conjunctiva/corneas clear, normal vision Ears/Nose/Mouth Eyes -EOMI. Ears - External normal ear. Hearing normal. Mouth - Lips normal color. Head/Neck: Face symmetrical, trachea midline, Head - Normocephalic. symmetrical. Normal ROM, neck supple. Thyroid normal. Pulmonary/chest: Normal respiratory effort, non-labored breathing. Abdominal/GI: Soft, non-tender, no organomegaly. Bowel sounds normal. Cardiovascular Normal rate and regular rhythm. No Murmurs or Rubs, Radial pulses normal. Circulation Normal. Neurologic: Alert and oriented x3. No focal neurological deficits noted. Extremities: No clubbing, cyanosis, or edema noted, no calf tenderness bilaterally. Skin: Warm and dry.Normal turgor, well-hydrated, no rashes noted. Psych: Normal mood and affect. Behavior is normal. Asssessment and Plan ICD-10-CM 1. Incomplete bladder emptying R33.9 2. Prostate cancer screening Z12.5 Benign Prostatic Hyperplasia: Patient is interested in proceeding with Aquablation. His questions were addressed regarding surgery. Findings: The patient has exhibited inadequate response to >= 3 months of conventional medical therapy, including alpha blockers, PDE5 inhibitors, and 5-alpha reductase inhibitors. Prostate size of 50 grams, as measured by TRUS. IPSS score of 10. Qmax of 23.3 ml/s with a voided volume of 442 cc and PVR of 9 cc. We discussed various medical and surgical options for BPH, including alpha blockers, 5-Teresa, TURP, PVP, Rezum, Aquablation, UroLift, HoLEP, PAE, simple prostatectomy. Given the severity of the patient's symptoms and the documented failure of conservative management, Aquablation is recommended as a treatment option. The procedure is deemed medically necessary and will be performed once per patient. The proposed Aquablation procedure utilizes an FDA-approved/cleared device, aligning with regulatory standards. After reviewing the risks and benefits of each option, he elects for Aquablation and the procedure was explained to the patient. The patient was informed this is a transurethral procedure. The patient understands he may have a Perez catheter for up to a week postoperatively. 2. PSA Screening: Last PSA was over 2 years ago. PSA was ordered and patient will have this drawn today. Patient will speak to his shoe reconditioner and call office to schedule. He may consider urolift as well. He is on blood thinners, will need okay to hold. JORGE Fajardo MD Urology Patient was advised to call with any questions or concerns. If symptoms worsen, patient was advised to follow up in our office or the emergency department. Benefits, risks, contraindications, and complications of recommended treatments were explained. The patient understands and agrees to proceed with plan. [1] Allergies Allergen Reactions Anesthetics, Amide Benadryl [Diphenhydramine Hcl] Biaxin [Clarithromycin] Qnhzmezp-Nsfwyuveoo-Frcxqtmnzu Hyoscyamine Sulfate Lidocaine renuka Naprosyn [Naproxen] Penicillins Quinine Hydrochloride Dihydrate [2] Current Outpatient Medications Medication Sig Dispense Refill albuterol (2.5 MG/3ML) 0.083% IN inhalation solution albuterol (PROVENTIL HFA) 108 (90 BASE) MCG/ACT IN AERS 4 times daily as needed. ALPRAZolam 0.25 MG PO TABS daily as needed. benzonatate (TESSALON) 200 MG PO CAPS 3 times daily as needed. busPIRone (BUSPAR) 10 MG PO TABS 3 times daily. cetirizine (ZYRTEC ALLERGY) 10 MG PO TABS daily as needed. clotrimazole-betamethasone 1-0.05 % Cream Apply to affected area twice a day 15 g 0 diphenoxylate-atropine (LOMOTIL) 2.5-0.025 MG PO TABS 4 times daily as needed. fluticasone (FLONASE) 50 MCG/ACT NA SUSP glyBURIDE 2.5 MG PO TABS 2 times daily. losartan 50 MG PO TABS daily. metformin 1000 MG PO TABS 2 times daily. metoprolol succinate (TOPROL XL) 25 MG PO tablet XL daily. mometasone Furo-Formoterol Fum (DULERA) 200-5 MCG/puff IN AERO 2 times daily. montelukast (SINGULAIR) 10 MG PO TABS daily as needed. omeprazole [address] daily. oxygen IN gas 2 L. Pitavastatin Calcium (LIVALO) 4 MG PO TABS daily. pramipexole (MIRAPEX) 1 MG PO TABS daily. sitaGLIPtin (JANUVIA) 100 MG PO TABS daily. No current facility-administered medications for this visit. [3] Past Medical History: Diagnosis Date Anxiety Asthma Diabetes mellitus Essential hypertension, benign Hyperlipidemia IBS (irritable bowel syndrome) RLS (restless legs syndrome) Sinus congestion [4] Past Surgical History: Procedure Laterality Date APPENDECTOMY 1979 CHOLECYSTECTOMY 1979 VASECTOMY 1978 VENTRAL HERNIA REPAIR 1969 [5] Social History Tobacco Use Smoking Status Never Smokeless Tobacco Former Types: Chew Quit date: 01/10/2013 Nurse Note: Review of Systems Constitutional: Negative. HENT: Negative. Eyes: Negative. Respiratory: Negative. Cardiovascular: Negative. Gastrointestinal: Negative. Endocrine: Negative. Genitourinary: Positive for frequency and urgency. Musculoskeletal: Negative. Allergic/Immunologic: Negative. Neurological: Negative. Hematological: Negative. Psychiatric/Behavioral: Negative. Nursing Assessment: Physical Exam Patient presents as a follow up to review Urocuff/easy pro and cysto/trus. Patient denies pain and or discomfort at this time. Patient attempted to void, unable to void at this time. PVR: 266 documented in this encounter [facility] 05-19-2025 History of Present illness Narrative Associated Order(s): CYSTOSCOPY; TRANSRECTAL ULTRASOUND Post-Procedure Diagnose(s): BPH with obstruction/lower urinary tract symptoms; Feeling of incomplete bladder emptying CYSTOSCOPY Date/Time: 05/19/2025 9:00 AM Performed by: Jeremías Fajardo MD Authorized by: Jeremías Fajardo MD The attending physician was present for the entire procedure. Pre-Procedure: Indications: urinary frequency, urinary urgency and enlarged prostate Detailed information of all possible complications and side effects were discussed with the patient, these include but not only; UTI, sepsis, hematuria, incontinence, urethral injury and cardiovascular complications. Informed consent was obtained. Does this procedure require a Burgin Protocol? Yes. Burgin Protocol is required. Urine was collected for testing. Procedure: Procedure performed: cystoscopy The patient was placed supine with all pressure points well padded. Patient was prepped and draped in the usual sterile fashion with Betadine. lidocaine 2% topical gel was inserted into urethra for local anesthesia. The flexible cystoscope was lubricated and placed into the urethral tract under direct visualization. A 360 survey of the bladder was performed. The cystoscope was reflected and the bladder neck and the ureteral orifices were inspected. The findings are detailed below. The cystoscope was removed following any additional procedures documented below. Findings: Intravesical protrusion of median lobe: Small median lobe. The lateral lobes were obstructive in appearance (Severely obstructing). No tumors observed. No bladder fistula present. No foreign bodies observed. No stones found. Trabeculated bladder: Moderate to severe. Both ureteral orifices were normal in size, shape and position The urethra was inspected. Post Procedure: Patient tolerated procedure with no immediate complications Post-procedure antibiotics were given (see MAR for details) Provided education regarding water intake of at least 2 liters per day. Procedure Comments: KAT: 1. Limited visualization of the right kidney with a 3.8 cm possible exophytic cyst, poorly visualized due to depth. CT would be recommended to evaluate this area further. 2. Left kidney possible 9 mm cyst. Suspected prominent dromedary hump. This is also poorly visualized due to depth. 3. Prostatomegaly. 4. Echogenic debris within the bladder. This could reflect blood or protein or infection depending on the clinical presentation. TRANSRECTAL ULTRASOUND Date/Time: 05/19/2025 9:00 AM Performed by: Jeremías Fajardo MD Authorized by: Jeremías Fajardo MD The attending physician was present for the entire procedure. Pre-Procedure Details: After discussing his options the patient decided to proceed with prostate ultrasound only. Possible complications, risks and benefits were discussed with the patient and consent was obtained. Procedure Details: The patient was placed in the left lateral position with lower extremities flexed and the area was prepped. 2% lidocaine jelly was injected per rectum. The prostate and seminal vesicles was/were inspected systematically using cross and sagittal views with the ultrasound. Findings are detailed above. The prostate measured 5.01 cm x 4.88 cm x 3.93 cm for a total prostate volume of 50.31 cc. The rectal ultrasound probe was removed. The procedure was tolerated well by the patient. Complications: none. Post-Procedure Details: EBL: none - The patient will return to clinic in approximately 2 weeks. Procedure Comments: Recommend UroLift vs Aquablation, briefly explained. Literature provided. Nurse Note: Review of Systems Constitutional: Negative. HENT: Negative. Eyes: Negative. Respiratory: Negative. Cardiovascular: Negative. Gastrointestinal: Negative. Endocrine: Negative. Genitourinary: Negative. Musculoskeletal: Negative. Allergic/Immunologic: Negative. Neurological: Negative. Hematological: Negative. Psychiatric/Behavioral: Negative. Nursing Assessment: Physical Exam Patient presents for a cysto/trus due to Englarged prostate and LUTS. Patient did not get a urojet due to allergy. AUA = 10 STANISLAW=2 Lab Results Component Value Date APPEARANCE clear 05/19/2025 COLOR yellow 05/19/2025 SPECIFICGRAV 1.015 05/19/2025 BLOOD neg 05/19/2025 PROTEIN neg 05/19/2025 UROBILINOGEN 0.2 05/19/2025 NITRITE neg 05/19/2025 LEUKOCYTE neg 05/19/2025 documented in this encounter [facility] 05-11-2025 History of Present illness Narrative Patient presents for EasyPro1 due to voiding dysfunction. Denies pain, discomfort at this time. Capacity: 450 ml Compliance (50% capacity): >100 ml/cmH2O Peak Pressure (void): 3 cmH2O Patient tolerated procedure well without complication. Patient comes in today for Urocuff PVR was 9. 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 male presenting as a new patient to establish urological care. Patient was seeing Dr. Sidhu of [facility]; most recent visit 03/21/25. Patient reports history of BPH with moderate to severe lower urinary tract symptoms and erectile dysfunction. Patient reports severe urgency, frequency, and urge incontinence requiring pull up for leakage protection. Previous history of urinary retention requiring catheterization. Previous history of urinary tract infections. He is currently taking double dose tamsulosin. He underwent cystoscopy 06/[address] Sidhu revealing a mild false passagein the posterior aspect of the bulbar urethra and moderate lateral lobe hyperplasia with no trabeculation. He is diabetic; per patient report most recent HgbA1c was 10. He has been referred to light cleaner. He denies constipation. Typical daily fluid intake coffee (5-6 cups), water (2 bottles), and milk. Fractured back in April 2024. Patient reports difficulty attaining erections. This started in 2016 after MS. Risk factors for ED include CAD, diabetes, HTN, and medications. He is unable to take PDE-5 inhibitors as he is taking isosorbide. Has tried ICI previously with moderate benefit. He is not sexually active currently. Denies history of kidney stones. Brother just diagnosed with prostate cancer, s/p prostatectomy. Denies family history of kidney or bladder cancer. Never smoker. Previous provider notes (Mary Paul, [facility]), labs, and images reviewed PSA 1.27 (07/2022) ROS: Nurse Note: Review of Systems Constitutional: Negative. HENT: Negative. Eyes: Negative. Respiratory: Negative. Cardiovascular: Negative. Gastrointestinal: Negative. Endocrine: Negative. Genitourinary: Positive for frequency and urgency. Musculoskeletal: Negative. Skin: Negative. Allergic/Immunologic: Negative. Neurological: Negative. Hematological: Negative. Psychiatric/Behavioral: Negative. Nursing Assessment: Physical Exam Patient arrives to establish care for ED/incontinence C/O frequency and urgency and incomplete bladder emptying Continues taking tamsulosin as directed Denies gross hematuria, dysuria, recent infection He is diabetic (2x daily) PVR 141 Lab Results Component Value Date APPEARANCE clear 04/17/2025 COLOR yellow 04/17/2025 SPECIFICGRAV 1.010 04/17/2025 BLOOD neg 04/17/2025 PROTEIN neg 04/17/2025 UROBILINOGEN 0.2 04/17/2025 NITRITE neg 04/17/2025 LEUKOCYTE neg 04/17/2025 History Allergies Allergen Reactions Anesthetics, Amide Benadryl [Diphenhydramine Hcl] Biaxin [Clarithromycin] Ildgphjm-Wheewjcnls-Iyqtpgprre Hyoscyamine Sulfate Lidocaine renuka Naprosyn [Naproxen] Penicillins Quinine Hydrochloride Dihydrate does not have a problem list on file. Current Outpatient Medications Medication Sig Dispense Refill albuterol (2.5 MG/3ML) 0.083% IN inhalation solution albuterol (PROVENTIL HFA) 108 (90 BASE) MCG/ACT IN AERS 4 times daily as needed. ALPRAZolam 0.25 MG PO TABS daily as needed. benzonatate (TESSALON) 200 MG PO CAPS 3 times daily as needed. busPIRone (BUSPAR) 10 MG PO TABS 3 times daily. cetirizine (ZYRTEC ALLERGY) 10 MG PO TABS daily as needed. diphenoxylate-atropine (LOMOTIL) 2.5-0.025 MG PO TABS 4 times daily as needed. Econazole Nitrate (SPECTAZOLE EX) 2 times daily. fluticasone (FLONASE) 50 MCG/ACT NA SUSP glyBURIDE 2.5 MG PO TABS 2 times daily. losartan 50 MG PO TABS daily. metformin 1000 MG PO TABS 2 times daily. metoprolol succinate (TOPROL XL) 25 MG PO tablet XL daily. mometasone Furo-Formoterol Fum (DULERA) 200-5 MCG/puff IN AERO 2 times daily. montelukast (SINGULAIR) 10 MG PO TABS daily as needed. omeprazole [address] daily. Oxiconazole Nitrate (OXISTAT) 1 % EX CREA 2 times daily. oxygen IN gas 2 L. Pitavastatin Calcium (LIVALO) 4 MG PO TABS daily. pramipexole (MIRAPEX) 1 MG PO TABS daily. sitaGLIPtin (JANUVIA) 100 MG PO TABS daily. No current facility-administered medications for this visit. family history includes Diabetes in his mother; Other - Specify in his father and mother. Past Medical History: Diagnosis Date Anxiety Asthma Diabetes mellitus Essential hypertension, benign Hyperlipidemia IBS (irritable bowel syndrome) RLS (restless legs syndrome) Sinus congestion Past Surgical History: Procedure Laterality Date APPENDECTOMY 1979 CHOLECYSTECTOMY 1979 VASECTOMY 1978 VENTRAL HERNIA REPAIR 1969 Social History Socioeconomic History Marital status: Spouse name: Not on file Number of children: Not on file Years of education: Not on file Highest education level: Not on file Occupational History Not on file Tobacco Use Smoking status: Never Smokeless tobacco: Former Types: Chew Quit date: 01/10/2013 Substance and Sexual Activity Alcohol use: No Drug use: No Sexual activity: Not on file Other Topics Concern Not on file Social History Narrative Not on file Social Drivers of Health Financial Resource Strain: Not on file Food Insecurity: Not on file Transportation Needs: Not on file Physical Activity: Not on file Stress: Not on file Social Connections: Not on file Personal Safety: Not on file Housing Stability: Not on file Physical Exam: Resp 17 Ht 1.727 m (5' 8) Wt 100.7 kg (222 lb) BMI 33.75 kg/m Smoking Status Never Body mass index is 33.75 kg/m . Constitutional: Appears well, no acute distress. Cardiovascular: Regular rate and rhythm. No lower extremity edema. Pulmonary: Respirations even and unlabored. Lungs clear to auscultation. Abdomen: Soft, non-tender. Bowel sounds active x 4. No CVA/suprapubic tenderness noted. Musculoskeletal: All major joints are without swelling, erythema, or bony deformity. Normal range of motion of all major joints. Skin: Warm, dry and intact. Neuro: No sensory or motor deficits. Assessment/Plan: 1. BPH with obstruction/lower urinary tract symptoms y (Primary) 2. Urinary urgency 3. Urinary frequency 4. Incomplete bladder emptying 5. Family history of prostate cancer Urinalysis is negative. PVR 141 ml. Patient will be scheduled for EasyPro/Urocuff and follow up with Dr. Fajardo for cystoscopy/TRUS. Renal ultrasound ordered. Recommend avoidance of bladder irritants, better glucose control, and limiting fluid intake 3 hours prior to bedtime. He is supposed to be getting PSA checked with PCP next week, he will bring copy of his labs. 6. Balanitis Lotrisone prescribed; appropriate use and side effects discussed. 7. Erectile dysfunction due to arterial insufficiency He would like to consider resuming TriMix. Never actually injected himself, only had the one injection that was performed in the office. Would like to see Dr. Fajardo to discuss further. 8. Testicular swelling Scrotal ultrasound ordered Patient was advised to call with any questions or concerns. If symptoms worsen patient was advised to follow up in our office or the Emergency Dept. Benefits, Risks, Contraindications, and Complications of recommended treatments were explained the patient understands and agrees to proceed with plan. * Gladys Martinez - 04/17/2025 9:00 AM EDT Nurse Note: Review of Systems Constitutional: Negative. HENT: Negative. Eyes: Negative. Respiratory: Negative. Cardiovascular: Negative. Gastrointestinal: Negative. Endocrine: Negative. Genitourinary: Positive for frequency and urgency. Musculoskeletal: Negative. Skin: Negative. Allergic/Immunologic: Negative. Neurological: Negative. Hematological: Negative. Psychiatric/Behavioral: Negative. Nursing Assessment: Physical Exam Patient arrives to establish care for ED/incontinence C/O frequency and urgency and incomplete bladder emptying Continues taking tamsulosin as directed Denies gross hematuria, dysuria, recent infection He is diabetic (2x daily) PVR 141 * Rozina Flood - 04/17/2025 9:00 AM EDT Lab Results Component Value Date APPEARANCE clear 04/17/2025 COLOR yellow 04/17/2025 SPECIFICGRAV 1.010 04/17/2025 BLOOD neg 04/17/2025 PROTEIN neg 04/17/2025 UROBILINOGEN 0.2 04/17/2025 NITRITE neg 04/17/2025 LEUKOCYTE neg 04/17/20[facility] NoteHNO ID: [id number] Author: BRYON TURNER PA-C Service: ? Author Type: Physician Bundler Type: Progress Notes Filed: 03/21/2025 10:06 Note Text: [facility] PATIENT CLINIC NOTE (M) Some elements copied from his previous note, which have been updated where appropriate, and all reflect current medical decision making from date of this visit. Note was generated by [employer] and edited as appropriate SERVICE DATE: March 21, 2025 NAME: Blanca Gill GENDER: male CHIEF COMPLAINT: The patient is a 74-year-old male with a history of BPH and diabetes, presenting for follow-up on urinary urgency. HISTORY OF PRESENT ILLNESS: The patient is a 74-year-old male with a history of BPH and diabetes, presenting for follow-up on urinary urgency. Urinary Urgency: - Persistent urinary urgency despite improvement with increased Flomax dosage. - Recent PVR of 99 mL. - Previous urology visit in March 2024 included bladder scan and catheterization. - Cystoscopy by Dr. Sidhu revealed bilobar occlusive prostate; no bladder pathology noted. - Denies current urinary tract infections. BPH: - Taking Flomax BID. - Previous Perez catheter use; removed on May 29. Diabetes: - Managed with metformin, glyburide, and insulin. - Recent increase in HbA1c levels. > We discussed the common causes of urinary frequency and urgency, and restricting water intake In hopes to mitigate the need to urinate, we discussed how this behavior more often worsen the problem not improving it, > We discussed increasing daily water intake to 64-84 oz 7a -7p and try to reduce bladder irritants, caffeine, alcohol and acid foods and drink. > Bladder irritants handout available to patient. LABS: PSA (ng/mL) Date Value 07/18/2022 1.27 No results found for: CREAT No results found for: TESTOST No results found for: HCT PSA (ng/mL) Date Value 07/18/2022 1.27 MEDICATIONS: clotrimazole (LOTRIMIN) 1 % cream Apply to affected area two times a day. furosemide (LASIX) 40 mg tablet Take 80 mg by mouth once daily. 80 MG by mouth in morning and 40 MG by mouth in afternoon OXYGEN, HOME THERAPY, Inhale 3 L/min as instructed as directed. acetaminophen 325 mg cap Take by mouth as needed. 5-fluorouracil 2.5% acyclovir 5% diclofenac 1% salicylic acid 10% topical (CPD) Apply 0.25-0.5 g to affected area two times a day. magnesium oxide (MAG-OX) 400 mg (241.3 mg magnesium) tablet Take 400 mg by mouth once daily. nitroglycerin sublingual (NITROSTAT) 0.4 mg SL tablet Dissolve 0.4 mg under the tongue every 5 minutes as needed for chest pain. Omeprazole-Sodium Bicarbonate 40-1,680 mg pack Take by mouth once daily. ACCU-CHEK LINDSAY PLUS TEST STRP test strip [...] Take 75 mg by mouth once daily. losartan 50 mg tablet Take 50 mg by mouth once daily. metFORMIN 1,000 mg tablet Take 1,000 mg by mouth twice daily with meals. montelukast (SINGULAIR) 10 mg tablet Take 10 mg by mouth daily at bedtime. fluticasone (FLONASE) 50 mcg/actuation nasal spray Use 1 [place] in each nostril once daily. econazole 1 [...] SULFATE (PROVENTIL HFA INHALATION) Inhale as instructed. diphenoxylate-atropine (LOMOTIL) 2.5-0.025 mg per tablet Take 1 tablet by mouth four times a day as needed. azelastine (ASTELIN, ASTEPRO) 0.1% nasal spray Use 1 [place] in the nose two times a day. Use in each nostril as directed glyBURIDE 2.5 mg ORAL tablet Take 2.5 mg by mouth daily with breakfast. (Patient taking differently: Take 5 mg by mouth two times a day.) [START ON 06/19/2025] tamsulosin (FLOMAX) 0.4 mg Take 1 capsule by mouth two times a day. Patient should start on June 19, 2025. furosemide (LASIX) 40 mg/4 mL soln sitaGLIPtin (JANUVIA) 100 mg tablet Take 100 mg by mouth once daily. mometasone-formoterol (DULERA) 200-5 mcg/actuation inhaler Inhale as instructed two times a day. metoprolol succinate XL (TOP (more content not included)...[facility]07-08-2025 History of Present illness Narrative* Bryon Turner PA-C - 03/21/2025 9:44 AM EDT Images from the original note were not included. [facility] PATIENT CLINIC NOTE (M) Some elements copied from his previous note, which have been updated where appropriate, and all reflect current medical decision making from date of this visit. Note was generated by [employer] and edited as appropriate SERVICE DATE: March 21, 2025 NAME: Blanca Gill GENDER: male CHIEF COMPLAINT: The patient is a 74-year-old male with a history of BPH and diabetes, presenting for follow-up on urinary urgency. HISTORY OF PRESENT ILLNESS: The patient is a 74-year-old male with a history of BPH and diabetes, presenting for follow-up on urinary urgency. Urinary Urgency: - Persistent urinary urgency despite improvement with increased Flomax dosage. - Recent PVR of 99 mL. - Previous urology visit in March 2024 included bladder scan and catheterization. - Cystoscopy by Dr. Sidhu revealed bilobar occlusive prostate; no bladder pathology noted. - Denies current urinary tract infections. BPH: - Taking Flomax BID. - Previous Perez catheter use; removed on May 29. Diabetes: - Managed with metformin, glyburide, and insulin. - Recent increase in HbA1c levels. > We discussed the common causes of urinary frequency and urgency, and restricting water intake In hopes to mitigate the need to urinate, we discussed how this behavior more often worsen the problem not improving it, > We discussed increasing daily water intake to 64-84 oz 7a -7p and try to reduce bladder irritants, caffeine, alcohol and acid foods and drink. > Bladder irritants handout available to patient. LABS: PSA (ng/mL) Date Value 07/18/2022 1.27 No results found for: CREAT No results found for: TESTOST No results found for: HCT PSA (ng/mL) Date Value 07/18/2022 1.27 MEDICATIONS: clotrimazole (LOTRIMIN) 1 % cream Apply to affected area two times a day. furosemide (LASIX) 40 mg tablet Take 80 mg by mouth once daily. 80 MG by mouth in morning and 40 MGby mouth in afternoon OXYGEN, HOME THERAPY, Inhale 3 L/min as instructed as directed. acetaminophen 325 mg cap Take by mouth as needed. 5-fluorouracil 2.5% acyclovir 5% diclofenac 1% salicylic acid 10% topical (CPD) Apply 0.25-0.5 g toaffected area two times a day. magnesium oxide (MAG-OX) 400 mg (241.3 mg magnesium) tablet Take 400 mg by mouth once daily. nitroglycerin sublingual (NITROSTAT) 0.4 mg SL tablet Dissolve 0.4 mg under the tongue every 5 minutes as needed for chest pain. Omeprazole-Sodium Bicarbonate 40-1,680 mg pack Take by mouth once daily. ACCU-CHEK LINDSAY PLUS TEST STRP test strip ACCU-CHEK GUIDE ME GLUCOSE MTR USE DIRECTED THREE TIMES DAILY NOVOLIN N NPH U-100 INSULIN 100 unit/mL injection INJECT 40 UNITS SUBCUTANEOUSLY IN THE MORNING ANDIN THE EVENING isosorbide mononitrate ER (IMDUR) 30 [...] Take 75 mg by mouth once daily. losartan 50 mg tablet Take 50 mg by mouth once daily. metFORMIN 1,000 mg tablet Take 1,000 mg by mouth twice daily with meals. montelukast (SINGULAIR) 10 mg tablet Take 10 mg by mouth daily at bedtime. fluticasone (FLONASE) 50 mcg/actuation nasal spray Use 1 [place] in each nostril once daily. econazole 1 [...] SULFATE (PROVENTIL HFA INHALATION) Inhale as instructed. diphenoxylate-atropine (LOMOTIL) 2.5-0.025 mg per tablet Take 1 tablet by mouth four times a day asneeded. azelastine (ASTELIN, ASTEPRO) 0.1% nasal spray Use 1 [place] in the nose two times a day. Use in eachnostril as directed glyBURIDE 2.5 mg ORAL tablet Take 2.5 mg by mouth daily with breakfast. (Patient taking differently: Take 5 mg by mouth two times a day.) [START ON 06/19/2025] tamsulosin (FLOMAX) 0.4 mg Take 1 capsule by mouth two times a day. Patient should start on June 19, 2025. furosemide (LASIX) 40 mg/4 mL soln sitaGLIPtin (JANUVIA) 100 mg tablet Take 100 mg by mouth once daily. mometasone-formoterol (DULERA) 200-5 mcg/actuation inhaler Inhale as instructed two times a day. metoprolol succinate XL (TOPROL XL) 25 mg ORAL 24 hr tablet Take 25 mg by mouth once daily. Pitavastatin (LIVALO) 2 mg ORAL Tab Take 2 mg by mouth once daily. PAST MEDICAL HISTORY: PAST MEDICAL HISTORY Diagnosis Date Allergic rhinitis Anxiety BPH with obstruction/lower urinary tract symptoms Diabetes (HCC) Erectile dysfunction due to arterial insufficiency Essential hypertension, benign Hypertension Hypertrophy of prostate with urinary obstruction and other lower urinary tract symptoms (LUTS) Intrinsic asthma with status asthmaticus (HCC) Irritable bowel syndrome OAB (overactive bladder) Pure hypercholesterolemia Restless leg syndrome Sinusitis, chronic Tobacco abuse Urine retention REVIEW OF SYSTEMS: Genitourinary: (+) urinary urgency PHYSICAL EXAMINATION: General: Alert & oriented, no acute distress Skin: Normal HEENT: Pupils equal, round. Oral cavity, oropharynx clear Neck: Supple, no mass Breast: Deferred Respiratory: Clear to auscultation, bilaterally Cardiovascular: Regular rate and rhythm, no murmurs, rubs, or gallops Abdomen: Soft, non-tender, non-distended, no masses palpable, no hepatosplenomegaly, normal bowel sounds Genitourinary: Deferred MSK: Back is non-tender Extremities: No clubbing, cyanosis, or edema PROBLEM LIST REVIEW: Yes LABS: Results for orders placed or performed in visit on 03/21/25 UA DIP, URINE (POC) Result Value Ref Range GLUCOSE UA (POCT) 100 (A) Negative mg/dL BILIRUBIN UA (POCT) Negative Negative KETONE UA (POCT) Negative Negative mg/dL SPECIFIC GRAVITY UA (POCT) 1.015 1.005 - 1.030 HEMOGLOBIN/BLOOD UA (POCT) Negative Negative PH UA (POCT) 7.0 4.5 - 8.0 PROTEIN UA (POCT) Negative Negative mg/dL UROBILINOGEN UA (POCT) 0.2 Normal E.U./dL NITRITE UA (POCT) Negative Negative LEUKOCYTES UA (POCT) Negative Negative COLOR UA (POCT) Light yellow CLARITY UA (POCT) Clear PROCEDURES: PVR - 99 ml ASSESSMENT/PLAN: 1. BPH with obstruction/lower urinary tract symptoms (N40.1) 2. Urine retention (R33.9) - Improved urinary retention with current PVR at 99 mL, previously 29 mL in December. Continues to experience urinary urgency. Previous cystoscopy by Dr. Michelle revealed bilobar occlusive prostate withno bladder pathology. Continue tamsulosin (Flomax) twice daily; refilled prescription to be sent [facility] pharmacy in June. Discussed potential for prostate tissue removal if symptoms worsen. Monitor urinary symptoms and follow-up if necessary. 3. Type 2 diabetes mellitus with hyperglycemia, unspecified whether penitentiary insulin use (HCC) (E11.65) - Hyperglycemia contributing to urinary urgency due to glycosuria. Current medications include metformin, glyburide, and insulin. Advised to improve glycemic control to reduce urinary symptoms. Discussed potential side effects of SGLT2 inhibitors like Jardiance and Farxiga, which can exacerbate urinary urgency. Emphasized importance of dietary management to lower hemoglobin A1c levels. 4. Screening for genitourinary condition (Z13.89) - Previous urine culture negative for infection. No further screening indicated at this time. Chronic stable > 1 year Appt w/ Trisha. FRANSISCO Turner, MT, PAParrisC with PSA prior Patient Instructions (AVS) - printed for patient - Continue taking tamsulosin (Flomax) daily as prescribed; a refill will be sent to your pharmacy effective early June. - Keep taking your metformin, glyburide, and insulin exactly as directed. - Work on improving your blood sugar control through diet; aim for readings under 100 to help reduce bladder irritation and urgency. - If your diabetes provider suggests SGLT2 medications (Jardiance or Farxiga), discuss other options first, as these can put extra sugar into the urine and worsen urgency. - Watch your urinary symptoms; if you notice increased urgency, frequency, or any trouble fully emptying your bladder, contact our office for further evaluation. - If your symptoms stop improving with medications, we may consider a procedure to remove prostate tissue to help with urine flow. FRANSISCO Comer MT, PA-C * Ginette Sanchez LPN - 03/21/2025 9:22 AM EDT Verified name and date of . CC Post Void Residual HPI: Blanca Gill is a 74 year old male. The patient is here now for an appointment with FRANSISCO Comer MT, PA-COV. Procedure: Explained procedure to patient and verbalizes understanding. Performed a PVR. Patient urinated and instructed to empty bladder as much as possible just prior to having PVR done using bladder ultrasound scanner. Results of scan: 99 mL The patient tolerated the procedure well. Plan: Appointment with Bryon. documented in this encounterSt[facility] NoteHNO ID: [id number] Author: GINETTE SANCHEZ LPN Service: ? Author Type: LICENSED NURSE Type: Progress Notes Filed: 03/21/2025 10:06 Note Text: Verified name and date of . CC Post Void Residual HPI: Blanca Gill is a 74 year old male. The patient is here now for an appointment with FRANSISCO Comer MT, PA-COV. Procedure: Explained procedure to patient and verbalizes understanding. Performed a PVR. Patient urinated and instructed to empty bladder as much as possible just prior to having PVR done using bladder ultrasound scanner. Results of scan: 99 mL The patient tolerated the procedure well. Plan: Appointment with Bryon.[facility]05-14-2025 NoteHNO ID: [id number] Author: ROCHELLE BRANCH PA-C Service: ? Author Type: Physician Bundler Type: Progress Notes Filed: 01/25/2025 19:18 Note Text: This note was created using [employer]. Subjective Blanca Gill is a 74 year old male. Patient is a 74-year-old male who complains of a recurring red, irritating rash to the base of his glans penis that has been present for approximately the past 2 weeks. Patient was seen and evaluated at this facility on 31 December 2024 at which time he was diagnosed with tinea cruris. Patient was provided with a prescription for clotrimazole cream which he states did not improve his symptoms. Patient states that his symptoms subsequently returned. Patient complains of irritation and itching to the site. Patient reports no bleeding, serous appearing fluid. Patient reports that the skin to the shaft of the penis is unaffected and he is also not experiencing any rash or itching symptoms to his scrotum. Patient denies dysuria or hematuria and reports no urethral irritation. Patient is diabetic. Rash Review of Systems Skin: Positive for rash. All other systems reviewed and are negative. Objective BP 138/72 Pulse 90 Temp 36.6 ?C (97.9 ?F) Resp 18 Wt 112.4 kg (247 lb 12.8 oz) SpO2 94% BMI 40.61 kg/m? Physical Exam Vitals and nursing note reviewed. Constitutional: Appearance: Normal appearance. He is normal weight. HENT: Head: Normocephalic and atraumatic. Nose: Nose normal. Mouth/Throat: Mouth: Mucous membranes are moist. Pharynx: Oropharynx is clear. Eyes: Extraocular Movements: Extraocular movements intact. Conjunctiva/sclera: Conjunctivae normal. Pupils: Pupils are equal, round, and reactive to light. Cardiovascular: Rate and Rhythm: Normal rate. Pulses: Normal pulses. Pulmonary: Effort: Pulmonary effort is normal. Breath sounds: Normal breath sounds. Genitourinary: Penis: Normal. Testes: Normal. Musculoskeletal: Cervical back: Normal range of motion and neck supple. Skin: General: Skin is warm and dry. Capillary Refill: Capillary refill takes less than 2 seconds. Findings: Erythema and rash present. No bruising or lesion. Comments: There is an erythematous circumferential ring noted to the skin of the penis at the border of the glans penis. No bleeding, serous or purulent fluid is noted. No pustules, vesicles or other skin lesions are noted. No induration or fluctuance is noted with palpation. Remainder of exam to the skin of the glans penis, penis and scrotum is unremarkable. Neurological: General: No focal deficit present. Mental Status: He is alert and oriented to person, place, and time. Psychiatric: Mood and Affect: Mood normal. Behavior: Behavior normal. Thought Content: Thought content normal. Judgment: Judgment normal. Assessment and Plan Physical exam findings as noted above. Patient was advised to continue using the clotrimazole cream and he was provided with a prescription for Diflucan 150 mg #2. Patient was advised to schedule an appointment with his primary care physician if his symptoms do not improve with the above medications. Additional skin care instructions were discussed and the patient verbalizes good understanding of same. CLINICAL IMPRESSION: Tinea Cruris Margin of Glans Penis ASSESSMENT/PLAN: 1. Tinea cruris - ICD9: 110.3, ICD10: B35.6 - FLUCONAZOLE 150 MG TABLET MDM Risk of Complications, Morbidity, and/or Mortality Presenting problems: low Diagnostic procedures: low Management options: low [facility] of Present illness Narrative* Rochelle Branch PA-C - 01/25/2025 7:12 PM EDT This note was created using [employer]. Subjective Blanca Gill is a 74 year old male. Patient is a 74-year-old male who complains of a recurring red, irritating rash to the base of his glans penis that has been present for approximately the past 2 weeks. Patient was seen and evaluatedat this facility on 31 December 2024 at which time he was diagnosed with tinea cruris. Patient was provided with a prescription for clotrimazole cream which he states did not improve his symptoms. Patient states that his symptoms subsequently returned. Patient complains of irritation and itching to the site. Patient reports no bleeding, serous appearing fluid. Patient reports that the skin to the shaft of the penis is unaffected and he is also not experiencing any rash or itching symptoms to his scrotum. Patient denies dysuria or hematuria and reports no urethral irritation. Patient is diabetic. Rash Review of Systems Skin: Positive for rash. All other systems reviewed and are negative. Objective BP 138/72 Pulse 90 Temp 36.6 C (97.9 F) Resp 18 Wt 112.4 kg (247 lb 12.8 oz) SpO2 94% BMI 40.61 kg/m Physical Exam Vitals and nursing note reviewed. Constitutional: Appearance: Normal appearance. He is normal weight. HENT: Head: Normocephalic and atraumatic. Nose: Nose normal. Mouth/Throat: Mouth: Mucous membranes are moist. Pharynx: Oropharynx is clear. Eyes: Extraocular Movements: Extraocular movements intact. Conjunctiva/sclera: Conjunctivae normal. Pupils: Pupils are equal, round, and reactive to light. Cardiovascular: Rate and Rhythm: Normal rate. Pulses: Normal pulses. Pulmonary: Effort: Pulmonary effort is normal. Breath sounds: Normal breath sounds. Genitourinary: Penis: Normal. Testes: Normal. Musculoskeletal: Cervical back: Normal range of motion and neck supple. Skin: General: Skin is warm and dry. Capillary Refill: Capillary refill takes less than 2 seconds. Findings: Erythema and rash present. No bruising or lesion. Comments: There is an erythematous circumferential ring noted to the skin of the penis at the border of the glans penis. No bleeding, serous or purulent fluid is noted. No pustules, vesicles or otherskin lesions are noted. No induration or fluctuance is noted with palpation. Remainder of exam to the skin of the glans penis, penis and scrotum is unremarkable. Neurological: General: No focal deficit present. Mental Status: He is alert and oriented to person, place, and time. Psychiatric: Mood and Affect: Mood normal. Behavior: Behavior normal. Thought Content: Thought content normal. Judgment: Judgment normal. Assessment and Plan Physical exam findings as noted above. Patient was advised to continue using the clotrimazole creamand he was provided with a prescription for Diflucan 150 mg #2. Patient was advised to schedule an appointment with his primary care physician if his symptoms do not improve with the above medications. Additional skin care instructions were discussed and the patient verbalizes good understanding ofsame. CLINICAL IMPRESSION: Tinea Cruris Margin of Glans Penis ASSESSMENT/PLAN: 1. Tinea cruris - ICD9: 110.3, ICD10: B35.6 - FLUCONAZOLE 150 MG TABLET MDM Risk of Complications, Morbidity, and/or Mortality Presenting problems: low Diagnostic procedures: low Management options: low Rochelle Branch PA-C documented in this encounterSt. [facility] Instructions* Patient Instructions* Marisa Blanco APRN.CNP - 12/31/2024 1:17 PM EDT - Treat with clotrimazole twice a day until rash resolves and then another week - Keep area of concern very dry. Ok to use OTC antifungal powder if area is moist - Follow up with PCP if symptoms persist or do not improved after 4-6 weeks of treatment. documented in this encounterSt. [facility]04-[facility]25 NoteHNO ID: [id number] Author: MARISA BLANCO APRN.BENJAMIN Service: ? Author Type: Nurse Practitioner Type: Progress Notes Filed: 12/31/2024 13:26 Note Text: [facility] Subjective Blanca Gill is a 74 year old male. Patient presents with: Groin Pain: bleeding in groin x this am HPI Penile Irritation and Bleeding: - Reports rawness and bleeding under the foreskin, particularly noticeable upon waking. - Has a history of yeast infections. - Using antifungal cream PRN, with increased use this week due to flare-up and soreness. - Noticed a lump under the foreskin where bleeding occurs. - Describes the area as very tender and touchy. Review of Systems Constitutional: Negative for fever. Musculoskeletal: Negative for arthralgias and neck pain. Skin: Negative for color change. Redness and itching on penis and groin area Neurological: Negative for headaches. Psychiatric/Behavioral: Negative for confusion. Objective There were no vitals taken for this visit. Physical Exam Exam conducted with a design sales consultant present. Constitutional: General: He is not in acute distress. HENT: Head: Normocephalic and atraumatic. Eyes: Conjunctiva/sclera: Conjunctivae normal. Pupils: Pupils are equal, round, and reactive to light. Pulmonary: Effort: Pulmonary effort is normal. Genitourinary: Pubic Area: Rash present. Penis: Tenderness present. No discharge or lesions. Comments: Ely Woodall MA present for exam Redness on glans, no lesions or lumps present Musculoskeletal: Cervical back: Normal range of motion and neck supple. Skin: General: Skin is warm and dry. Neurological: Mental Status: He is alert and oriented to person, place, and time. History and Record Review External record(s) reviewed: prior labs/imaging. Findings from review of prior labs/imaging: Previous Renal Function Panel Reviewed No results within last 365 days. ASSESSMENT/PLAN: 1. Tinea cruris - ICD9: 110.3, ICD10: B35.6 (primary diagnosis) - Treat with clotrimazole twice a day until rash resolves and then another week - Keep area of concern very dry. Ok to use OTC antifungal powder if area is moist - Follow up with PCP if symptoms persist or do not improved after 4-6 weeks of treatment. 2. Penile irritation - ICD9: 607.89, ICD10: N48.89 Appears to be a yeast infection Treat with clotrimazole as discussed follow up with urology/pcp as needed Diagnosis and treatment plan were discussed and questions were answered to the patient's satisfaction. Pt acknowledged understanding of concepts and follow up plan. Specific signs and symptoms that would indicate the need for higher level of care were discussed in detail warranting prompt ER evaluation. Marisa Blanco APRN.[facility] History of Present illness Narrative* Marisa Blanco APRN.MANAGER GAME - 12/31/2024 1:00 PM EDT Images from the original note were not included. [facility] Subjective Blanca Gill is a 74 year old male. Patient presents with: Groin Pain: bleeding in groin x this am HPI Penile Irritation and Bleeding: - Reports rawness and bleeding under the foreskin, particularly noticeable upon waking. - Has a history of yeast infections. - Using antifungal cream PRN, with increased use this week due to flare-up and soreness. - Noticed a lump under the foreskin where bleeding occurs. - Describes the area as very tender and touchy. Review of Systems Constitutional: Negative for fever. Musculoskeletal: Negative for arthralgias and neck pain. Skin: Negative for color change. Redness and itching on penis and groin area Neurological: Negative for headaches. Psychiatric/Behavioral: Negative for confusion. Objective There were no vitals taken for this visit. Physical Exam Exam conducted with a design sales consultant present. Constitutional: General: He is not in acute distress. HENT: Head: Normocephalic and atraumatic. Eyes: Conjunctiva/sclera: Conjunctivae normal. Pupils: Pupils are equal, round, and reactive to light. Pulmonary: Effort: Pulmonary effort is normal. Genitourinary: Pubic Area: Rash present. Penis: Tenderness present. No discharge or lesions. Comments: Ely Woodall MA present for exam Redness on glans, no lesions or lumps present Musculoskeletal: Cervical back: Normal range of motion and neck supple. Skin: General: Skin is warm and dry. Neurological: Mental Status: He is alert and oriented to person, place, and time. History and Record Review External record(s) reviewed: prior labs/imaging. Findings from review of prior labs/imaging: Previous Renal Function Panel Reviewed No results within last 365 days. ASSESSMENT/PLAN: 1. Tinea cruris - ICD9: 110.3, ICD10: B35.6 (primary diagnosis) - Treat with clotrimazole twice a day until rash resolves and then another week - Keep area of concern very dry. Ok to use OTC antifungal powder if area is moist - Follow up with PCP if symptoms persist or do not improved after 4-6 weeks of treatment. 2. Penile irritation - ICD9: 607.89, ICD10: N48.89 Appears to be a yeast infection Treat with clotrimazole as discussed follow up with urology/pcp as needed Diagnosis and treatment plan were discussed and questions were answered to the patient's satisfaction. Pt acknowledged understanding of concepts and follow up plan. Specific signs and symptoms that would indicate the need for higher level of care were discussed indetail warranting prompt ER evaluation. Marisa Blanco APRN.MANAGER GAME documented in this encounterSt. [facility] NoteHNO ID: [id number] Author: SALLY EHRNDON APRN.MANAGER GAME Service: ? Author Type: Nurse Practitioner Type: Progress Notes Filed: 12/21/2024 13:00 Note Text: [facility] Subjective HPI HPI Blanca Gill is a 74 year old male who presents today for CC of bilat lower leg redness/swelling/tenderness. This started few days ago/worsening. Has tried cream from pcp without relief. Symptoms are worsened by nothing. Risk factors has had this in past needed atb to resolve. Denies injury and fever. .Patient presents with: Derm Problem: bilateral redness and swelling bilateral x 1 day, yeast PAST MEDICAL HISTORY Diagnosis Date Allergic rhinitis Anxiety BPH with obstruction/lower urinary tract symptoms Diabetes (HCC) Essential hypertension, benign Hypertension Hypertrophy of prostate with urinary obstruction and other lower urinary tract symptoms (LUTS) Intrinsic asthma with status asthmaticus ([facility]) Irritable bowel syndrome OAB (overactive bladder) Pure hypercholesterolemia Restless leg syndrome Sinusitis, chronic Tobacco abuse Urine retention PAST SURGICAL HISTORY Procedure Laterality Date APPENDECTOMY CHOLECYSTECTOMY CYSTOSCOPY 07/14/2024 PAST SURGICAL HISTORY OF 2009 left knee arthroscopy VASECTOMY XCAPSL CTRC RMVL INSJ IO LENS PROSTH W/O ECP Left 07/29/2018 XCAPSL CTRC RMVL INSJ IO LENS PROSTH W/O ECP Right 08/19/2018 Cataract Extraction with PC IOL ALLERGIES Aspergillus Fumigatus Allergenic Extract, Benadryl [Diphenhydramine Hcl], Biaxin [Clarithromycin], Byetta [Exenatide], Levsin [Hyoscyamine Sulfate], Lidocaine, Naprosyn [Naproxen], Penicillins, and Quinine Hcl MEDICATIONS furosemide (LASIX) 40 mg tablet Take 80 mg by mouth once daily. 80 MG by mouth in morning and 40 MG by mouth in afternoon OXYGEN, HOME THERAPY, Inhale 3 L/min as instructed as directed. acetaminophen 325 mg cap Take by mouth as needed. furosemide (LASIX) 40 mg/4 mL soln 5-fluorouracil 2.5% acyclovir 5% diclofenac 1% salicylic acid 10% topical (CPD) Apply 0.25-0.5 g to affected area two times a day. magnesium oxide (MAG-OX) 400 mg (241.3 mg magnesium) tablet Take 400 mg by mouth once daily. nitroglycerin sublingual (NITROSTAT) 0.4 mg SL tablet Dissolve 0.4 mg under the tongue every 5 minutes as needed for chest pain. Omeprazole-Sodium Bicarbonate 40-1,680 mg pack Take by mouth once daily. tamsulosin (FLOMAX) 0.4 mg Take 1 capsule by mouth two times a day. ACCU-CHEK LINDSAY PLUS TEST STRP test strip [...] mg cap Take by mouth twice daily. (Patient taking differently: Take by mouth two times a day. Once daily) carvedilol (COREG) 3.125 mg tablet Take 3.125 mg by mouth twice daily with meals. Cyanocobalamin 2,500 mcg subl Dissolve under the tongue. pravastatin (PRAVACHOL) 40 mg tablet Take 40 mg by mouth once daily. aspirin, enteric coated (ASPIRIN, ENTERIC COATED) 81 mg EC tablet Take 81 mg by mouth once daily. clopidogrel (PLAVIX) 75 mg tablet Take 75 mg by mouth once daily. losartan 50 mg tablet Take 50 mg by mouth once daily. metFORMIN 1,000 mg tablet Take 1,000 mg by mouth twice daily with meals. montelukast (SINGULAIR) 10 mg tablet Take 10 mg by mouth daily at bedtime. sitaGLIPtin (JANUVIA) 100 mg tablet Take 100 mg by mouth once daily. fluticasone (FLONASE) 50 mcg/actuation nasal spray Use 1 [place] in each nostril once daily. mometasone-formoterol (DULERA) 200-5 mcg/actuation inhaler Inhale as instructed two times a day. (Patient taking differently: Inhale as instructed two times a day. Two times daily as needed) econazole 1 % TOPICAL cream Apply to affected area once daily. ALPRAZolam 0.25 mg ORAL tablet Take 0.25 mg by mouth at bedtime as needed. busPIRone (BUSPAR) 10 mg tablet Take 10 mg by mouth four times daily as needed. pramipexole (MIRAPEX) 1 mg tablet Take 1 mg by mouth twice daily. metoprolol succinate XL (TOPROL XL) 25 mg ORAL 24 hr tablet Take 25 mg by mouth once daily. ALBUTEROL SULFATE (PROVENTIL HFA INHALATION) Inhale as instructed. diphenoxylate-atropine (LOMOTIL) 2.5-0.025 mg per tablet Take 1 tablet by mouth four times a day as needed. azelastine (ASTELIN, ASTEPRO) 0.1% nasal spray Use 1 [place] in the nose two times a day. Use in each nostril as directed econazole (SPECTAZOLE) 1 % cream Apply to affected area once daily. glyBURIDE 2.5 mg ORAL tablet Take 2.5 mg by mouth daily with breakfast. Pitavastatin (LIVALO) 2 mg ORAL Tab Take 2 mg by mouth once daily. doxycycline monohydrate 100 mg tablet Take 1 tablet by mouth two times a day for 7 days. FAMILY HISTORY Problem Relation Age of Onset Alzheimer's Disease Mother Diabete (more content not included)...[facility]04-09-[facility] History of Present illness Narrative* Sally Herndon APRN.MANAGER GAME - 12/21/2024 12:57 PM EDT Images from the original note were not included. [facility] Subjective HPI HPI Blanca Gill is a 74 year old male who presents today for CC of bilat lower leg redness/swelling/tenderness. This started few days ago/worsening. Has tried cream from pcp without relief. Symptoms are worsened by nothing. Risk factors has had this in past needed atb to resolve. Denies injuryand fever. .Patient presents with: Derm Problem: bilateral redness and swelling bilateral x 1 day, yeast PAST MEDICAL HISTORY Diagnosis Date Allergic rhinitis Anxiety BPH with obstruction/lower urinary tract symptoms Diabetes (HCC) Essential hypertension, benign Hypertension Hypertrophy of prostate with urinary obstruction and other lower urinary tract symptoms (LUTS) Intrinsic asthma with status asthmaticus (HCC) Irritable bowel syndrome OAB (overactive bladder) Pure hypercholesterolemia Restless leg syndrome Sinusitis, chronic Tobacco abuse Urine retention PAST SURGICAL HISTORY Procedure Laterality Date APPENDECTOMY CHOLECYSTECTOMY CYSTOSCOPY 07/14/2024 PAST SURGICAL HISTORY OF 2009 left knee arthroscopy VASECTOMY XCAPSL CTRC RMVL INSJ IO LENS PROSTH W/O ECP Left 07/29/2018 XCAPSL CTRC RMVL INSJ IO LENS PROSTH W/O ECP Right 08/19/2018 Cataract Extraction with PC IOL ALLERGIES Aspergillus Fumigatus Allergenic Extract, Benadryl [Diphenhydramine Hcl], Biaxin [Clarithromycin], Byetta [Exenatide], Levsin [Hyoscyamine Sulfate], Lidocaine, Naprosyn [Naproxen], Penicillins, and Quinine Hcl MEDICATIONS furosemide (LASIX) 40 mg tablet Take 80 mg by mouth once daily. 80 MG by mouth in morning and 40 MGby mouth in afternoon OXYGEN, HOME THERAPY, Inhale 3 L/min as instructed as directed. acetaminophen 325 mg cap Take by mouth as needed. furosemide (LASIX) 40 mg/4 mL soln 5-fluorouracil 2.5% acyclovir 5% diclofenac 1% salicylic acid 10% topical (CPD) Apply 0.25-0.5 g toaffected area two times a day. magnesium oxide (MAG-OX) 400 mg (241.3 mg magnesium) tablet Take 400 mg by mouth once daily. nitroglycerin sublingual (NITROSTAT) 0.4 mg SL tablet Dissolve 0.4 mg under the tongue every 5 minutes as needed for chest pain. Omeprazole-Sodium Bicarbonate 40-1,680 mg pack Take by mouth once daily. tamsulosin (FLOMAX) 0.4 mg Take 1 capsule by mouth two times a day. ACCU-CHEK LINDSAY PLUS TEST STRP test strip ACCU-CHEK GUIDE ME GLUCOSE MTR USE DIRECTED THREE TIMES DAILY NOVOLIN N NPH U-100 INSULIN 100 unit/mL injection INJECT 40 UNITS SUBCUTANEOUSLY IN THE MORNING ANDIN THE EVENING isosorbide mononitrate ER (IMDUR) 30 mg 24 hr tablet Take 30 mg by mouth once daily. ubidecarenone Q-10 (COENZYME Q-10) 10 mg cap Take by mouth twice daily. (Patient taking differently: Take by mouth two times a day. Once daily) carvedilol (COREG) 3.125 mg tablet Take 3.125 mg by mouth twice daily with meals. Cyanocobalamin 2,500 mcg subl Dissolve under the tongue. pravastatin (PRAVACHOL) 40 mg tablet Take 40 mg by mouth once daily. aspirin, enteric coated (ASPIRIN, ENTERIC COATED) 81 mg EC tablet Take 81 mg by mouth once daily. clopidogrel (PLAVIX) 75 mg tablet Take 75 mg by mouth once daily. losartan 50 mg tablet Take 50 mg by mouth once daily. metFORMIN 1,000 mg tablet Take 1,000 mg by mouth twice daily with meals. montelukast (SINGULAIR) 10 mg tablet Take 10 mg by mouth daily at bedtime. sitaGLIPtin (JANUVIA) 100 mg tablet Take 100 mg by mouth once daily. fluticasone (FLONASE) 50 mcg/actuation nasal spray Use 1 [place] in each nostril once daily. mometasone-formoterol (DULERA) 200-5 mcg/actuation inhaler Inhale as instructed two times a day. (Patient taking differently: Inhale as instructed two times a day. Two times daily as needed) econazole 1 % TOPICAL cream Apply to affected area once daily. ALPRAZolam 0.25 mg ORAL tablet Take 0.25 mg by mouth at bedtime as needed. busPIRone (BUSPAR) 10 mg tablet Take 10 mg by mouth four times daily as needed. pramipexole (MIRAPEX) 1 mg tablet Take 1 mg by mouth twice daily. metoprolol succinate XL (TOPROL XL) 25 mg ORAL 24 hr tablet Take 25 mg by mouth once daily. ALBUTEROL SULFATE (PROVENTIL HFA INHALATION) Inhale as instructed. diphenoxylate-atropine (LOMOTIL) 2.5-0.025 mg per tablet Take 1 tablet by mouth four times a day asneeded. azelastine (ASTELIN, ASTEPRO) 0.1% nasal spray Use 1 [place] in the nose two times a day. Use in eachnostril as directed econazole (SPECTAZOLE) 1 % cream Apply to affected area once daily. glyBURIDE 2.5 mg ORAL tablet Take 2.5 mg by mouth daily with breakfast. Pitavastatin (LIVALO) 2 mg ORAL Tab Take 2 mg by mouth once daily. doxycycline monohydrate 100 mg tablet Take 1 tablet by mouth two times a day for 7 days. FAMILY HISTORY Problem Relation Age of Onset Alzheimer's Disease Mother Diabetes Mother Hypertension Mother No Ocular Disease Mother Heart Father No Ocular Disease Father Glaucoma Brother Social History Tobacco Use Smoking status: Never Passive exposure: Never Smokeless tobacco: Former Types: Chew Vaping Use Vaping status: Never Used Substance Use Topics Alcohol use: Not Currently Drug use: Never Review of Systems Objective BP 122/70 Pulse 98 Temp 36.7 C (98 F) Resp 16 Wt 113.2 kg (249 lb 9 oz) SpO2 94% BMI 40.90 kg/m Physical Exam Constitutional: General: He is not in acute distress. Appearance: He is not toxic-appearing or diaphoretic. HENT: Head: Normocephalic and atraumatic. Pulmonary: Effort: Pulmonary effort is normal. No accessory muscle usage or respiratory distress. Musculoskeletal: Legs: Neurological: Mental Status: He is alert and oriented to person, place, and time. {ASSESSMENT/PLAN: 1. Skin infection - ICD9: 686.9, ICD10: L08.9 - Begin treatment with doxycycline - No lymphangetic streaking, this was defined for patient to watch for and to seek medical care immediately if appears - Follow up for recheck in three days with pcp if not improving. - DOXYCYCLINE MONOHYDRATE 100 MG TABLET Sally Herndon APRN.BENJAMIN History and Record Review External record(s) reviewed: prior outpatient record. Disposition The patient was discharged. Procedures documented in this encounterSt. [facility] Telephone encounter Note * Telephone Encounter - Ginette Sanchez LPN - 12/20/2024 8:15 AM EDT Called patient. Verified name and date of . Patient informed of results. Verbalizes understanding. Ginette Sanchez LPN [facility]04-08-2025 Miscellaneous Notes* Telephone Encounter - Ginette Sanchez LPN - 12/20/2024 8:15 AM EDT Called patient. Verified name and date of . Patient informed of results. Verbalizes understanding. Ginette Sanchez LPN documented in this encounterSt. [facility]25 NoteHNO ID: [id number] Author: BRYON TURNER PA-C Service: ? Author Type: Physician Bundler Type: Progress Notes Filed: 12/13/2024 18:59 Note Text: [facility] [place] [facility] EST PATIENT CLINIC NOTE (M) Some elements copied from his previous note, which have been updated where appropriate, and all reflect current medical decision making from date of this visit. SERVICE DATE: December 13, 2024 NAME: Blanca Gill GENDER: male CHIEF COMPLAINT: BPH, Urgency and Impotence HISTORY OF PRESENT ILLNESS: Blanca Gill is a 74 year old male patient here following up for BPH, Urgency and Impotence The patient reports he has been having worsening urinary urgency and recent history of UTI which has been treated and UA today appears negative Will send urine culture today. After review of his medications shows he is taking Farxiga and Lasix which is likely contributing to this urgency, and being that These are working well for him I explained we could try a OAB medication, but these often have SE's themselves and he would rather leave thing as they are for now And will let me know if he would like to try one. For his Impotence he cannot take PDE5i since he takes long acting nitroglycerin medications, he has tried IV Injections In the past , so I recommended restarting that, but he is not interested at this time. > 2021 - PSA 1.27 > PVR - 29 ml > We discussed increasing daily water intake to 64-84 oz 7a -7p and try to reduce bladder irritants, caffeine, alcohol and acid foods and drink. > Bladder irritants handout available to patient. LUTS: Urinary Urgency Other symptoms: ED - yes Previous ED medications: yes IC Injections - not interested in restarting right now LABS: PSA (ng/mL) Date Value 07/18/2022 1.27 MEDICATIONS: furosemide (LASIX) 40 mg tablet Take 80 mg by mouth once daily. 80 MG by mouth in morning and 40 MG by mouth in afternoon OXYGEN, HOME THERAPY, Inhale 3 L/min as instructed as directed. acetaminophen 325 mg cap Take by mouth as needed. magnesium oxide (MAG-OX) 400 mg (241.3 mg magnesium) tablet Take 400 mg by mouth once daily. nitroglycerin sublingual (NITROSTAT) 0.4 mg SL tablet Dissolve 0.4 mg under the tongue every 5 minutes as needed for chest pain. Omeprazole-Sodium Bicarbonate 40-1,680 mg pack Take by mouth once daily. tamsulosin (FLOMAX) 0.4 mg Take 1 capsule by mouth two times a day. ACCU-CHEK LINDSAY PLUS TEST STRP test strip [...] mg cap Take by mouth twice daily. (Patient taking differently: Take by mouth two times a day. Once daily) carvedilol (COREG) 3.125 mg tablet Take 3.125 [...] (FLONASE) 50 mcg/actuation nasal spray Use 1 [place] in each nostril once daily. mometasone-formoterol (DULERA) 200-5 mcg/actuation inhaler Inhale as instructed two times a day. (Patient taking differently: Inhale as instructed two times a day. Two times daily as needed) ALPRAZolam 0.25 mg ORAL tablet Take 0.25 mg by mouth at bedtime as needed. busPIRone (BUSPAR) 10 mg tablet Take 10 mg by mouth four times daily as needed. pramipexole (MIRAPEX) 1 mg tablet Take 1 mg by mouth twice daily. ALBUTEROL SULFATE (PROVENTIL HFA INHALATION) Inhale as instructed. diphenoxylate-atropine (LOMOTIL) 2.5-0.025 mg per tablet Take 1 tablet by mouth four times a day as needed. azelastine (ASTELIN, ASTEPRO) 0.1% nasal spray Use 1 [place] in the nose two times a day. Use in each nostril as directed econazole (SPECTAZOLE) 1 % cream Apply to affected area once daily. glyBURIDE 2.5 mg ORAL tablet Take 2.5 mg by mouth daily with breakfast. Pitavastatin (LIVALO) 2 mg ORAL Tab Take 2 mg by mouth once daily. furosemide (LASIX) 40 mg/4 mL soln 5-fluorouracil 2.5% acyclovir 5% diclofenac 1% salicylic acid 10% topical (CPD) Apply 0.25-0.5 g to affected area two times a day. losartan 50 mg tablet Take 50 mg by mouth once daily. sitaGLIPtin (JANUVIA) 100 mg tablet Take 100 mg by mouth once daily. econazole 1 % TOPICAL cream Apply to affected area once daily. metoprolol succinate XL (TOPROL XL) 25 mg ORAL 24 hr tablet Take 25 mg by mouth on (more content not included)...[facility]04-01-[facility] History of Present illness Narrative* Bryon Turner PA-C - 12/13/2024 9:40 AM EDT Images from the original note were not included. [facility] [place] [facility] EST PATIENT CLINIC NOTE (M) Some elements copied from his previous note, which have been updated where appropriate, and all reflect current medical decision making from date of this visit. SERVICE DATE: December 13, 2024 NAME: Blanca Gill GENDER: male CHIEF COMPLAINT: BPH, Urgency and Impotence HISTORY OF PRESENT ILLNESS: Blanca Gill is a 74 year old male patient here following up for BPH, Urgency and Impotence The patient reports he has been having worsening urinary urgency and recent history of UTI which has been treated and UA today appears negative Will send urine culture today. After review of his medications shows he is taking Farxiga and Lasixwhich is likely contributing to this urgency, and being that These are working well for him I explained we could try a OAB medication, but these often have SE'sthemselves and he would rather leave thing as they are for now And will let me know if he would like to try one. For his Impotence he cannot take PDE5i since he takes long acting nitroglycerin medications, he has tried IV Injections In the past , so I recommended restarting that, but he is not interested at this time. > 2021 - PSA 1.27 > PVR - 29 ml > We discussed increasing daily water intake to 64-84 oz 7a -7p and try to reduce bladder irritants, caffeine, alcohol and acid foods and drink. > Bladder irritants handout available to patient. LUTS: Urinary Urgency Other symptoms: ED - yes Previous ED medications: yes IC Injections - not interested in restarting right now LABS: PSA (ng/mL) Date Value 07/18/2022 1.27 MEDICATIONS: furosemide (LASIX) 40 mg tablet Take 80 mg by mouth once daily. 80 MG by mouth in morning and 40 MGby mouth in afternoon OXYGEN, HOME THERAPY, Inhale 3 L/min as instructed as directed. acetaminophen 325 mg cap Take by mouth as needed. magnesium oxide (MAG-OX) 400 mg (241.3 mg magnesium) tablet Take 400 mg by mouth once daily. nitroglycerin sublingual (NITROSTAT) 0.4 mg SL tablet Dissolve 0.4 mg under the tongue every 5 minutes as needed for chest pain. Omeprazole-Sodium Bicarbonate 40-1,680 mg pack Take by mouth once daily. tamsulosin (FLOMAX) 0.4 mg Take 1 capsule by mouth two times a day. ACCU-CHEK LINDSAY PLUS TEST STRP test strip ACCU-CHEK GUIDE ME GLUCOSE MTR USE DIRECTED THREE TIMES DAILY NOVOLIN N NPH U-100 INSULIN 100 unit/mL injection INJECT 40 UNITS SUBCUTANEOUSLY IN THE MORNING ANDIN THE EVENING isosorbide mononitrate ER (IMDUR) 30 mg 24 hr tablet Take 30 mg by mouth once daily. ubidecarenone Q-10 (COENZYME Q-10) 10 mg cap Take by mouth twice daily. (Patient taking differently: Take by mouth two times a day. Once daily) carvedilol (COREG) 3.125 mg tablet Take 3.125 [...] (FLONASE) 50 mcg/actuation nasal spray Use 1 [place] in each nostril once daily. mometasone-formoterol (DULERA) 200-5 mcg/actuation inhaler Inhale as instructed two times a day. (Patient taking differently: Inhale as instructed two times a day. Two times daily as needed) ALPRAZolam 0.25 mg ORAL tablet Take 0.25 mg by mouth at bedtime as needed. busPIRone (BUSPAR) 10 mg tablet Take 10 mg by mouth four times daily as needed. pramipexole (MIRAPEX) 1 mg tablet Take 1 mg by mouth twice daily. ALBUTEROL SULFATE (PROVENTIL HFA INHALATION) Inhale as instructed. diphenoxylate-atropine (LOMOTIL) 2.5-0.025 mg per tablet Take 1 tablet by mouth four times a day asneeded. azelastine (ASTELIN, ASTEPRO) 0.1% nasal spray Use 1 [place] in the nose two times a day. Use in eachnostril as directed econazole (SPECTAZOLE) 1 % cream Apply to affected area once daily. glyBURIDE 2.5 mg ORAL tablet Take 2.5 mg by mouth daily with breakfast. Pitavastatin (LIVALO) 2 mg ORAL Tab Take 2 mg by mouth once daily. furosemide (LASIX) 40 mg/4 mL soln 5-fluorouracil 2.5% acyclovir 5% diclofenac 1% salicylic acid 10% topical (CPD) Apply 0.25-0.5 g toaffected area two times a day. losartan 50 mg tablet Take 50 mg by mouth once daily. sitaGLIPtin (JANUVIA) 100 mg tablet Take 100 mg by mouth once daily. econazole 1 % TOPICAL cream Apply to affected area once daily. metoprolol succinate XL (TOPROL XL) 25 mg ORAL 24 hr tablet Take 25 mg by mouth once daily. PAST MEDICAL HISTORY: PAST MEDICAL HISTORY Diagnosis Date Allergic rhinitis Anxiety BPH with obstruction/lower urinary tract symptoms Diabetes (HCC) Essential hypertension, benign Hypertension Hypertrophy of prostate with urinary obstruction and other lower urinary tract symptoms (LUTS) Intrinsic asthma with status asthmaticus (HCC) Irritable bowel syndrome OAB (overactive bladder) Pure hypercholesterolemia Restless leg syndrome Sinusitis, chronic Tobacco abuse Urine retention REVIEW OF SYSTEMS: GENERAL: No fever, chills, weight loss, or fatigue. PHYSICAL EXAMINATION: Blood pressure 144/86, pulse 95, temperature 36.6 C (97.9 F), temperature source Temporal, resp. rate 18, height 166.4 cm (5' 5.5), weight 112 kg (247 lb), SpO2 96%. GENERAL: WNL nutrition, no deformities, healthy appearing PROBLEM LIST REVIEW: Yes LABS: Results for orders placed or performed in visit on 12/13/24 UA DIP, URINE (POC) Result Value Ref Range GLUCOSE UA (POCT) 500 (A) Negative mg/dL BILIRUBIN UA (POCT) Negative Negative KETONE UA (POCT) Negative Negative mg/dL SPECIFIC GRAVITY UA (POCT) 1.020 1.005 - 1.030 HEMOGLOBIN/BLOOD UA (POCT) Negative Negative PH UA (POCT) 7.0 4.5 - 8.0 PROTEIN UA (POCT) 30 (A) Negative mg/dL UROBILINOGEN UA (POCT) 0.2 Normal E.U./dL NITRITE UA (POCT) Negative Negative LEUKOCYTES UA (POCT) Negative Negative COLOR UA (POCT) Yellow CLARITY UA (POCT) Slightly Cloudy Urine Culture: Pending PROCEDURES: PVR: 29 ml ASSESSMENT/PLAN: 1. Urinary urgency - ICD9: 788.63, ICD10: R39.15 (primary diagnosis) 2. BPH with obstruction/lower urinary tract symptoms - ICD9: 600.01, 599.69, ICD10: N40.1, N13.8 3. Erectile dysfunction due to arterial insufficiency - ICD9: 607.84, ICD10: N52.01 > PVR -29 ml Chronic progressing, worsening > 3 mo Follow-up with FRANSISCO Mohan MT, PA-C Brandon E. Mooney, MPAS, MT, PA-C * Ginette Sanchez LPN - 12/13/2024 8:57 AM EDT Verified name and date of . CC Post Void Residual HPI: Blanca Gill is a 74 year old male. The patient is here now for an appointment with FRANSISCO Comer MT, ROSARIO. Procedure: Explained procedure to patient and verbalizes understanding. Performed a PVR. Patient urinated and instructed to empty bladder as much as possible just prior to having PVR done using bladder ultrasound scanner. Results of scan: 29 mL The patient tolerated the procedure well. Plan: Appointment with Bryon. documented in this encounterSt. Anthony'S Hospital04-01-2025 NoteHNO ID: [id number] Author: GINETTE SANCHEZ LPN Service: ? Author Type: LICENSED NURSE Type: Progress Notes Filed: 12/13/2024 18:59 Note Text: Verified name and date of . CC Post Void Residual HPI: Blanca Gill is a 74 year old male. The patient is here now for an appointment with FRANSISCO Comer [place], ROSARIO. Procedure: Explained procedure to patient and verbalizes understanding. Performed a PVR. Patient urinated and instructed to empty bladder as much as possible just prior to having PVR done using bladder ultrasound scanner. Results of scan: 29 mL The patient tolerated the procedure well. Plan: Appointment with [facility]03-21-[facility]25 Telephone encounter Note* Telephone Encounter - Alanna Vital - 12/02/2024 10:56 AM EDT S[poke with patient and authorization/referral does not appear to be required for his visit. Patient stated that we should be getting a referral faxed to us just in case. Alanna Vital [facility]03-21-2025 Miscellaneous Notes* Telephone Encounter - Alanna Vital - 12/02/2024 10:56 AM EDT S[poke with patient and authorization/referral does not appear to be required for his visit. Patient stated that we should be getting a referral faxed to us just in case. Alanna Vital * Telephone Encounter - Ginette Sanchez LPN - 12/02/2024 10:40 AM EDT Called patient. Verified name and date of . Answered questions regarding appointment. Scheduled with provider. Patient is asking to have appointment reviewed to verify that referral is not needed. Patient is currently seeing Lamar Quinones CNP for BPH/PSA. Ginette Sanchez LPN * Telephone Encounter - Susanna Sun MA - 12/02/2024 8:52 AM EDT Patient returned call. No message to pass along to the patient. Staff not available to speak with patient. Please call patient back. * Telephone Encounter - Ginette Sanchez LPN - 12/02/2024 8:31 AM EDT Called patient. No answer- left message to call clinic to discuss. Ginette Sanchez LPN * Telephone Encounter - Rhiannon Bynum - 11/28/2024 3:46 PM EDT Patient called to request to speak with nurse. Patient was referred to [facility] by Lamar Quinones CNP. Patient is wanting to discuss how the providers treat for ED prior to scheduling consultation. Please contact patient at ph. [phone]. documented in this encounterSt. Anthony'S Hospital03-21-2025 Telephone encounter Note * Telephone Encounter - Ginette Sanchez LPN - 12/02/2024 10:40 AM EDT Called patient. Verified name and date of . Answered questions regarding appointment. Scheduled with provider. Patient is asking to have appointment reviewed to verify that referral is not needed. Patient is currently seeing Lamar Quinones CNP for BPH/PSA. Ginette Sanchez LPN [facility]03-21-2025 Telephone encounter Note* Telephone Encounter - Susanna Sun MA - 12/02/2024 8:52 AM EDT Patient returned call. No message to pass along to the patient. Staff not available to speak with patient. Please call patient back. [facility]03-[facility] Telephone encounter Note* Telephone Encounter - Ginette Sanchez LPN - 12/02/2024 8:31 AM EDT Called patient. No answer- left message to call clinic to discuss. Ginette Sanchez LPN [facility]03-18-2025 Telephone encounter Note* Telephone Encounter - Margarita Jimenez RN - 11/29/2024 10:29 AM EDT Patient calling in for an appointment with Urology. States that he was referred to [facility] for ED as his previous provider in [place] does not treat for that. Patient states that 2 days ago hestarted to develop some urinary symptoms as well including burning, feeling like he is not emptyinghis bladder all the way, and frequency and urgency which he is not sure if it is worse since he is o n water pills. Patient states that he has had to have a catheter placed in the past due to not emptying his bladder all the way. Informed patient that he may need to be seen either at [facility] ED if he is having these symptoms, especially since he does not currently have an upcomming urology appointment. Patient does not want to go to [facility] if they can not place a perez if needed. Reached out to express care and they do not place perez's. Informed the patient that if he is having urinary frequency, urgency, burning, and difficulty emptying his bladder then he should be seen in the ED. Especially since he has had to have catheter's placed for this before. Patient agreeable. It appears patient had called to schedule appointment with [facility] for referral for ED, they offered him March and he declined. No current appointment scheduled. Informed patient that It wouldbe best to get him on the schedule to see Urology and we can place him on a waitlist. Patient agreeable. Transferred to scheduling. [facility]03-18-[facility] Miscellaneous Notes* Telephone Encounter - Margarita Jimenez RN - 11/29/2024 10:29 AM EDT Patient calling in for an appointment with Urology. States that he was referred to [facility] for ED as his previous provider in [place] does not treat for that. Patient states that 2 days ago hestarted to develop some urinary symptoms as well including burning, feeling like he is not emptyinghis bladder all the way, and frequency and urgency which he is not sure if it is worse since he is o n water pills. Patient states that he has had to have a catheter placed in the past due to not emptying his bladder all the way. Informed patient that he may need to be seen either at [facility] orthe ED if he is having these symptoms, especially since he does not currently have an upcomming urology appointment. Patient does not want to go to express care if they can not place a perez if needed. Reached out to express care and they do not place perez's. Informed the patient that if he is having urinary frequency, urgency, burning, and difficulty emptying his bladder then he should be seen in the ED. Especially since he has had to have catheter's placed for this before. Patient agreeable. It appears patient had called to schedule appointment with [facility] for referral for ED, they offered him March and he declined. No current appointment scheduled. Informed patient that It wouldbe best to get him on the schedule to see Urology and we can place him on a waitlist. Patient agreeable. Transferred to scheduling. documented in this encounterSt. Anthony'[facility] Hospital03-17-2025 Telephone encounter Note * Telephone Encounter - Rhiannon Bynum - 11/28/2024 3:46 PM EDT Patient called to request to speak with nurse. Patient was referred to [facility] by Lamar Quinones CNP. Patient is wanting to discuss how the providers treat for ED prior to scheduling consultation. Please contact patient at ph. [phone]. [facility] Evaluation note* Diagnosis Onset Date Resolution Status Admit Date Lymphedema acute November 04, 2024 1:47pm Wound of left lower extremity acute November 04, 2024 1:47pm Lower extremity edema chronic Oct 1:47pm [facility] Work Phone: 1(208) 200-456301-22-2025 Telephone encounter Note* Telephone Encounter - Anila Corrales LPN - 10/05/2024 2:51 PM EST Just an FYI patient called to schedule with urology but did tell me he used to see a Dr. Cedeno in [place] for Erectile dysfunction. He also has been having trouble with dry skin/bleeding under his foreskin (uncircumcised) which he will discuss when he is seen as well. Anila Corrales LPN [facility]01-22-2025 Miscellaneous Notes* Telephone Encounter - Anila Corrales LPN - 10/05/2024 2:51 PM EST Just an FYI patient called to schedule with urology but did tell me he used to see a Dr. Cedeno in [place] for Erectile dysfunction. He also has been having trouble with dry skin/bleeding under his foreskin (uncircumcised) which he will discuss when he is seen as well. Anila Corrales LPN documented in this encounterSt. Anthony'S Hospital01-18-2025 Instructions* Patient Instructions* Ria Branch APRN.BENJAMIN - 10/01/2024 3:47 PM EST ASSESSMENT/PLAN: 1. Feared condition not demonstrated - ICD9: V65.5, ICD10: Z71.1 (primary diagnosis) - penis appears normal on exam. He is advised to follow up with urologist for further concerns. Patient did inquire if nurse could be present in the room when he cleaned his foreskin to remove cream. 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 He declined. 2. Skin erythema - ICD9: 695.9, ICD10: L53.9 - slight erythema on groin skin fold. He is advised to use econazole cream in this area. - Follow-up with your urologist for further concerns. Ria Branch APRN.MANAGER GAME documented in this encounterSt. Anthony'S Hospital01-18-2025 NoteHNO ID: [id number] Author: RIA BRANCH APRN.BENJAMIN Service: ? Author Type: Nurse Practitioner Type: Progress Notes Filed: 10/01/2024 15:47 Note Text: Subjective Wound Check Pertinent negatives include no chills, fever or rash. Blanca Gill is a 74 year old male who presents with concern about his foreskin. He states it itches and he can't see it to see if it is healing. He has been seen here 3 times in the past month for the same concern. Last visit was on 09/25 when he was told the skin/area was very much improved from the previous visit. He has been using antifungal cream as prescribed. He denies any pain with urination, frequency, or hematuria. He denies swelling of penis or scrotum. Review of Systems Constitutional: Negative for chills and fever. Genitourinary: Negative for dysuria, frequency, hematuria and urgency. Skin: Positive for itching. Negative for rash. BP 147/77 Pulse 93 Temp 36.8 ?C (98.3 ?F) Resp 20 Wt 114 kg (251 lb 5.2 oz) SpO2 96% BMI 38.21 kg/m? PAST MEDICAL HISTORY Diagnosis Date Allergic rhinitis [...] Naprosyn [Naproxen], Penicillins, and Quinine Hcl MEDICATIONS clindamycin (CLEOCIN) 150 mg capsule Take 3 capsules by mouth three times a day for 5 days. acetaminophen 325 mg cap Take by mouth as needed. furosemide (LASIX) 40 mg/4 mL soln 5-fluorouracil 2.5% acyclovir 5% diclofenac 1% salicylic acid 10% topical (CPD) Apply 0.25-0.5 g to affected area two times a day. magnesium oxide (MAG-OX) 400 mg (241.3 mg magnesium) tablet Take 400 mg by mouth once daily. nitroglycerin sublingual (NITROSTAT) 0.4 mg SL tablet Dissolve 0.4 mg under the tongue every 5 minutes as needed for chest pain. Omeprazole-Sodium Bicarbonate 40-1,680 mg pack Take by mouth. tamsulosin (FLOMAX) 0.4 mg Take 1 capsule by mouth two times a day. ACCU-CHEK LINDSAY PLUS TEST STRP test strip [...] (FLONASE) 50 mcg/actuation nasal spray Use 1 [place] in each nostril once daily. econazole 1 [...] SULFATE (PROVENTIL HFA INHALATION) Inhale as instructed. diphenoxylate-atropine (LOMOTIL) 2.5-0.025 mg per tablet Take 1 tablet by mouth four times a day as needed. azelastine (ASTELIN, ASTEPRO) 0.1% nasal spray Use 1 [place] in the nose two times a day. Use in each nostril as directed econazole (SPECTAZOLE) 1 % cream Apply to affected area once daily. losartan 50 mg tablet Take 50 mg by mouth once daily. sitaGLIPtin (JANUVIA) 100 mg tablet Take 100 mg by mouth once daily. mometasone-formoterol (DULERA) 200-5 mcg/actuation inhaler Inhale as instructed two times a day. metoprolol succinate XL (TOPROL XL) 25 mg ORAL 24 hr tablet Take 25 mg by mouth once daily. glyBURIDE 2.5 mg ORAL tablet Take 2.5 mg by mouth daily with breakfast. (Patient not taking: Reported on 10/01/2024) Pitavastatin (LIVALO) 2 mg ORAL Tab Take by mouth. FAMILY HISTORY Problem Relation Age of Onset Alzheimer's Disease Mother Diabetes Mother Hypertension Mother No Ocula (more content not included)...[facility]01-18-2025 History of Present illness Narrative* Ria Branch APRN.MANAGER GAME - 10/01/2024 3:30 PM EST Images from the original note were not included. Subjective Wound Check Pertinent negatives include no chills, fever or rash. Blanca Gill is a 74 year old male who presents with concern about his foreskin. He states it itches and he can't see it to see if it is healing. He has been seen here 3 times in the past month for the same concern. Last visit was on 09/25 when he was told the skin/area was very much improved from the previous visit. He has been using antifungal cream as prescribed. He denies any pain with urination, frequency, or hematuria. He denies swelling of penis or scrotum. Review of Systems Constitutional: Negative for chills and fever. Genitourinary: Negative for dysuria, frequency, hematuria and urgency. Skin: Positive for itching. Negative for rash. BP 147/77 Pulse 93 Temp 36.8 C (98.3 F) Resp 20 Wt 114 kg (251 lb 5.2 oz) SpO2 96% BMI 38.21 kg/m PAST MEDICAL HISTORY Diagnosis Date Allergic rhinitis [...] Naprosyn [Naproxen], Penicillins, and Quinine Hcl MEDICATIONS clindamycin (CLEOCIN) 150 mg capsule Take 3 capsules by mouth three times a day for 5 days. acetaminophen 325 mg cap Take by mouth as needed. furosemide (LASIX) 40 mg/4 mL soln 5-fluorouracil 2.5% acyclovir 5% diclofenac 1% salicylic acid 10% topical (CPD) Apply 0.25-0.5 g toaffected area two times a day. magnesium oxide (MAG-OX) 400 mg (241.3 mg magnesium) tablet Take 400 mg by mouth once daily. nitroglycerin sublingual (NITROSTAT) 0.4 mg SL tablet Dissolve 0.4 mg under the tongue every 5 minutes as needed for chest pain. Omeprazole-Sodium Bicarbonate 40-1,680 mg pack Take by mouth. tamsulosin (FLOMAX) 0.4 mg Take 1 capsule by mouth two times a day. ACCU-CHEK LINDSAY PLUS TEST STRP test strip ACCU-CHEK GUIDE ME GLUCOSE MTR USE DIRECTED THREE TIMES DAILY NOVOLIN N NPH U-100 INSULIN 100 unit/mL injection INJECT 40 UNITS SUBCUTANEOUSLY IN THE MORNING ANDIN THE EVENING isosorbide mononitrate ER (IMDUR) 30 [...] (FLONASE) 50 mcg/actuation nasal spray Use 1 [place] in each nostril once daily. econazole 1 [...] SULFATE (PROVENTIL HFA INHALATION) Inhale as instructed. diphenoxylate-atropine (LOMOTIL) 2.5-0.025 mg per tablet Take 1 tablet by mouth four times a day asneeded. azelastine (ASTELIN, ASTEPRO) 0.1% nasal spray Use 1 [place] in the nose two times a day. Use in eachnostril as directed econazole (SPECTAZOLE) 1 % cream Apply to affected area once daily. losartan 50 mg tablet Take 50 mg by mouth once daily. sitaGLIPtin (JANUVIA) 100 mg tablet Take 100 mg by mouth once daily. mometasone-formoterol (DULERA) 200-5 mcg/actuation inhaler Inhale as instructed two times a day. metoprolol succinate XL (TOPROL XL) 25 mg ORAL 24 hr tablet Take 25 mg by mouth once daily. glyBURIDE 2.5 mg ORAL tablet Take 2.5 mg by mouth daily with breakfast. (Patient not taking: Reported on 10/01/2024) Pitavastatin (LIVALO) 2 mg ORAL Tab Take by mouth. FAMILY HISTORY Problem Relation Age of Onset Alzheimer's Disease Mother Diabetes Mother Hypertension Mother No Ocular Disease Mother Heart Father No Ocular Disease Father Glaucoma Brother Social History Tobacco Use Smoking status: Never Passive exposure: Never Smokeless tobacco: Former Types: Chew Vaping Use Vaping status: Never Used Substance Use Topics Alcohol use: No Drug use: No Objective Physical Exam Vitals and nursing note reviewed. Exam conducted with a design sales consultant present. Constitutional: Appearance: Normal appearance. Genitourinary: Comments: Altagracia Richards LPN present during exam. Skin: General: Skin is warm and dry. Capillary Refill: Capillary refill takes less than 2 seconds. Findings: Erythema present. No rash. Neurological: Mental Status: He is alert. ASSESSMENT/PLAN: 1. Feared condition not demonstrated - ICD9: V65.5, ICD10: Z71.1 (primary diagnosis) - penis appears normal on exam. He is advised to follow up with urologist for further concerns. Patient did inquire if nurse could be present in the room when he cleaned his foreskin to remove cream. 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 He declined. 2. Skin erythema - ICD9: 695.9, ICD10: L53.9 - slight erythema on groin skin fold. He is advised to use econazole cream in this area. - Follow-up with your urologist for further concerns. Ria Branch APRN.MANAGER GAME documented in this encounterSt. Anthony'S Hospital01-18-2025 Telephone encounter Note * Telephone Encounter - Margaret Lo RN - 10/01/2024 2:08 PM EST Reason for Call: In the past 24 hours the patient feels like he's not completely emptying his bladder and feels bloated despite urinating a good amount of urine. Denies pain, fever, or blood in theurine. He states he has had this problem before and in the past did self-catheterization. Outcome: Advised going to Urgent Care or ER. He is unable to reach his non[facility] provider and does not want to go to ER. He has been seen at the [facility] several times and wants to go there. Told himthey may not be able to do catheterization there and will send him to ER. He plans to call [facility] on Thursday and make an appointment. Reason for Disposition Urinating more frequently than usual (i.e., frequency) OR new-onset of the feeling of an urgent need to urinate (i.e., urgency) He is not urinating more frequently than normal, but feels like he can't get all of the urine out. Answer Assessment - Initial Assessment Questions 1. SYMPTOM: He feels like he is not emptying his bladder completely, even though he is passing a good amount of urine 2. ONSET: started about 24 hours ago 3. PAIN: denies pain 4. CAUSE: He has had this happen before and in the past did self-catheterizations 5. OTHER SYMPTOMS: feels very bloated He also has a wound under his foreskin that is still healing and was treated in [facility] on 09/17/24 and 09/25/24. Protocols used: Urinary [id number] [facility]01-18-2025 Miscellaneous Notes* Telephone Encounter - Margaret Lo RN - 10/01/2024 2:08 PM EST Reason for Call: In the past 24 hours the patient feels like he's not completely emptying his bladder and feels bloated despite urinating a good amount of urine. Denies pain, fever, or blood in theurine. He states he has had this problem before and in the past did self-catheterization. Outcome: Advised going to Urgent Care or ER. He is unable to reach his non[facility] provider and does not want to go to ER. He has been seen at the [facility] several times and wants to go there. Told himthey may not be able to do catheterization there and will send him to ER. He plans to call [facility] on Thursday and make an appointment. Reason for Disposition Urinating more frequently than usual (i.e., frequency) OR new-onset of the feeling of an urgent need to urinate (i.e., urgency) He is not urinating more frequently than normal, but feels like he can't get all of the urine out. Answer Assessment - Initial Assessment Questions 1. SYMPTOM: He feels like he is not emptying his bladder completely, even though he is passing a good amount of urine 2. ONSET: started about 24 hours ago 3. PAIN: denies pain 4. CAUSE: He has had this happen before and in the past did self-catheterizations 5. OTHER SYMPTOMS: feels very bloated He also has a wound under his foreskin that is still healing and was treated in [facility] on 09/17/24 and 09/25/24. Protocols used: Urinary [id number] documented in this encounterSt. Anthony'S Hospital01-15-2025 Telephone encounter Note * Telephone Encounter - Kaylen Woodall MA - 09/28/2024 11:02 AM EST Patient given results and verbalized understanding of instructions given. Kaylen Woodall MA [facility]01-15-2025 Miscellaneous Notes* Telephone Encounter - Kaylen Woodall MA - 09/28/2024 11:02 AM EST Patient given results and verbalized understanding of instructions given. Kaylen Woodall MA * Telephone Encounter - Alan Mckeon APRN.CNP - 09/28/2024 8:52 AM EST Call patient let him know that the fungal screening was negative. That antibiotics were changed to clindamycin 3 times a day for 5 days according to the bacterial culture. If this does not help patient needs to follow-up with primary care. Patient should drink plenty water while taking clindamycin. documented in this encounterSt. Anthony'S Hospital01-15-2025 Telephone encounter Note * Telephone Encounter - Alan Mckeon APRN.CNP - 09/28/2024 8:52 AM EST Call patient let him know that the fungal screening was negative. That antibiotics were changed to clindamycin 3 times a day for 5 days according to the bacterial culture. If this does not help patient needs to follow-up with primary care. Patient should drink plenty water while taking clindamycin. [facility]01-12-2025 NoteHNO ID: [id number] Author: KODI VUONG APRN.CNP Service: ? Author Type: Nurse Practitioner Type: Progress Notes Filed: 09/25/2024 11:02 Note Text: This note was created using inMEDIA Corporationriter. Subjective Blanca Gill is a 74 year old male. 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 Patient is noncircumcised and was seen by myself July 19, 2024 and noted to have a fungal infection on the glans. He was seen again September 17 and again noted to have a fungal infection and a wound culture was done showing possible infection and he was prescribed doxycycline. Patient noted some improvement in symptoms but presents again today requesting evaluation. He otherwise denies any nausea vomiting fever urinary burning or frequency. Review of Systems As above Objective BP 122/62 Pulse 88 Temp 36.6 ?C (97.9 ?F) Resp 21 Wt 113.6 kg (250 lb 7.1 oz) SpO2 93% BMI 38.08 kg/m? Physical Exam Vitals and nursing note reviewed. Constitutional: General: He is not in acute distress. Appearance: Normal appearance. He is not ill-appearing. HENT: Head: Normocephalic. Mouth/Throat: Mouth: Mucous membranes are moist. Eyes: Conjunctiva/sclera: Conjunctivae normal. Pulmonary: Effort: Pulmonary effort is normal. Abdominal: Palpations: Abdomen is soft. Tenderness: There is no abdominal tenderness. Genitourinary: Comments: Normal external uncircumcised genitalia. On the superior and inferior aspects of the glans skin is mildly erythematous with no obvious open wounds bleeding or drainage noted. From my previous evaluation skin appears markedly improved. Musculoskeletal: General: Normal range of motion. Cervical back: Normal range of motion. Skin: General: Skin is warm and dry. Neurological: General: No focal deficit present. Mental Status: He is alert. Psychiatric: Mood and Affect: Mood normal. Behavior: Behavior normal. Assessment and Plan ASSESSMENT/PLAN: 1. Healing wound - ICD9: 959.9, ICD10: T14.90XD On evaluation today the glans does appear to be much improved from previous evaluation. From his visit September 17 the screen was negative. The wound culture showed moderate sensitivity to doxycycline. Urinalysis was unremarkable. Patient will continue to take the doxycycline as prescribed. Patient had other complaints regarding prostate which I discussed with him would be better evaluated with his PCP. He will continue with his fungal creams and return for any new or worsening concerns. Kodi Vuong APRN.[facility] History of Present illness Narrative* Kodi Vuong APRN.BENJAMIN - 09/25/2024 10:51 AM EST This note was created using in[employer]riter. Subjective Blanca Gill is a 74 year old male. 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 Patient is noncircumcised and was seen by myself July 19, 2024 and noted to have a fungal infection on the glans. He was seen again September 17 and again noted to have a fungal infection and a wound culture was done showing possible infection and he was prescribed doxycycline. Patient noted some improvement in symptoms but presents again today requesting evaluation. He otherwise denies any nauseavomiting fever urinary burning or frequency. Review of Systems As above Objective BP 122/62 Pulse 88 Temp 36.6 C (97.9 F) Resp 21 Wt 113.6 kg (250 lb 7.1 oz) SpO2 93% BMI 38.08 kg/m Physical Exam Vitals and nursing note reviewed. Constitutional: General: He is not in acute distress. Appearance: Normal appearance. He is not ill-appearing. HENT: Head: Normocephalic. Mouth/Throat: Mouth: Mucous membranes are moist. Eyes: Conjunctiva/sclera: Conjunctivae normal. Pulmonary: Effort: Pulmonary effort is normal. Abdominal: Palpations: Abdomen is soft. Tenderness: There is no abdominal tenderness. Genitourinary: Comments: Normal external uncircumcised genitalia. On the superior and inferior aspects of the glans skin is mildly erythematous with no obvious open wounds bleeding or drainage noted. From my previous evaluation skin appears markedly improved. Musculoskeletal: General: Normal range of motion. Cervical back: Normal range of motion. Skin: General: Skin is warm and dry. Neurological: General: No focal deficit present. Mental Status: He is alert. Psychiatric: Mood and Affect: Mood normal. Behavior: Behavior normal. Assessment and Plan ASSESSMENT/PLAN: 1. Healing wound - ICD9: 959.9, ICD10: T14.90XD On evaluation today the glans does appear to be much improved from previous evaluation. From his visit September 17 the screen was negative. The wound culture showed moderate sensitivity to doxycycline.Urinalysis was unremarkable. Patient will continue to take the doxycycline as prescribed. Patient had other complaints regarding prostate which I discussed with him would be better evaluated with hisP. He will continue with his fungal creams and return for any new or worsening concerns. Kodi Vuong APRN.CNP documented in [place] encounterMichelle [place] [id number] Telephone encounter Note * Telephone Encounter - Anila Banerjee APRN.CNP - 09/20/2024 1:47 PM EST Wound culture returns + Doxycyline provided to patient after reviewing history of allergies Patient verbalized understanding Instructed to follow up with PCP next week. [facility]01-07-2025 Miscellaneous Notes* Telephone Encounter - Anila Banerjee APRN.CNP - 09/20/2024 1:47 PM EST Wound culture returns + Doxycyline provided to patient after reviewing history of allergies Patient verbalized understanding Instructed to follow up with PCP next week. documented in this encounterSt. [facility] Telephone encounter Note * Telephone Encounter - Kaylen Woodall MA - 09/18/2024 3:39 PM EST Patient given results and verbalized understanding of instructions given. Kaylen Woodall MA [facility]01-05-2025 Miscellaneous Notes* Telephone Encounter - Kaylen Woodall MA - 09/18/2024 3:39 PM EST Patient given results and verbalized understanding of instructions given. Kaylen Woodall MA * Telephone Encounter - Kaylen Woodall MA - 09/18/2024 3:38 PM EST ----- Message from Ria Branch APRN.CNP sent at 09/18/2024 1:26 PM EST ----- Please advise patient the urine culture was negative. documented in this encounterSt. [facility] Telephone encounter Note * Telephone Encounter - Kaylen Woodall MA - 09/18/2024 3:38 PM EST ----- Message from Ria Branch APRN.MANAGER GAME sent at 09/18/2024 1:26 PM EST ----- Please advise patient the urine culture was negative. [facility]01-04[facility]25 NoteHNO ID: [id number] Author: KAMI YOUNGER APRN.MANAGER [employer]AME Service: ? Author Type: Nurse Practitioner Type: Progress Notes Filed: 09/17/2024 12:23 Note Text: Subjective HPI Blanca presents today with concern for bleeding under his foreskin. He states he has had this many times in the past and it is a fungal infection that he has cream for at home, but just wants to have it checked. Dysuria noted today only. PAST MEDICAL HISTORY Diagnosis Date Allergic rhinitis [...] Naprosyn [Naproxen], Penicillins, and Quinine Hcl MEDICATIONS acetaminophen 325 mg cap Take by mouth as needed. furosemide (LASIX) 40 mg/4 mL soln 5-fluorouracil 2.5% acyclovir 5% diclofenac 1% salicylic acid 10% topical (CPD) Apply 0.25-0.5 g to affected area two times a day. magnesium oxide (MAG-OX) 400 mg (241.3 mg magnesium) tablet Take 400 mg by mouth once daily. nitroglycerin sublingual (NITROSTAT) 0.4 mg SL tablet Dissolve 0.4 mg under the tongue every 5 minutes as needed for chest pain. Omeprazole-Sodium Bicarbonate 40-1,680 mg pack Take by mouth. tamsulosin (FLOMAX) 0.4 mg Take 1 capsule by mouth two times a day. ACCU-CHEK LINDSAY PLUS TEST STRP test strip [...] Take 75 mg by mouth once daily. losartan 50 mg tablet Take 50 mg by mouth once daily. metFORMIN 1,000 mg tablet Take 1,000 mg by mouth twice daily with meals. montelukast (SINGULAIR) 10 mg tablet Take 10 mg by mouth daily at bedtime. sitaGLIPtin (JANUVIA) 100 mg tablet Take 100 mg by mouth once daily. fluticasone (FLONASE) 50 mcg/actuation nasal spray Use 1 [place] in each nostril once daily. mometasone-formoterol (DULERA) 200-5 mcg/actuation inhaler Inhale as instructed two times a day. econazole 1 % TOPICAL cream Apply to affected area once daily. ALPRAZolam 0.25 mg ORAL tablet Take 0.25 mg by mouth at bedtime as needed. busPIRone (BUSPAR) 10 mg tablet Take 10 mg by mouth four times daily as needed. pramipexole (MIRAPEX) 1 mg tablet Take 1 mg by mouth twice daily. metoprolol succinate XL (TOPROL XL) 25 mg ORAL 24 hr tablet Take 25 mg by mouth once daily. ALBUTEROL SULFATE (PROVENTIL HFA INHALATION) Inhale as instructed. diphenoxylate-atropine (LOMOTIL) 2.5-0.025 mg per tablet Take 1 tablet by mouth four times a day as needed. azelastine (ASTELIN, ASTEPRO) 0.1% nasal spray Use 1 [place] in the nose two times a day. Use in each nostril as directed econazole (SPECTAZOLE) 1 % cream Apply to affected area once daily. glyBURIDE 2.5 mg ORAL tablet Take 2.5 mg by mouth daily with breakfast. Pitavastatin (LIVALO) 2 mg ORAL Tab Take by mouth. FAMILY HISTORY Problem Relation Age of Onset Alzheimer's Disease Mother Diabetes Mother Hypertension Mother No Ocular Disease Mother Heart Father No Ocular Disease Father Glaucoma Brother Social History Tobacco Use Smoking status: Never Passive exposure: Never Smokeless tobacco: Former Types: Chew Vaping Use Vaping status: Never Used Substance Use Topics Alcohol use: No Drug use: No Review of Systems Genitourinary: Positive for dysuria. Blood noted under foreskin All other systems reviewed and are negative. Objective Physical Exam Vitals and nursing note reviewed. Constitutional: Appearance: Normal appearance. HENT: Head: Normocephalic and atraumatic. Nose: Nose normal. Mouth/Throat: Mouth: Mucous membranes are dry. Eyes: General: Right eye: Right eye discharge: urin culture. Extraocular Movements: Extraocul (more content not included)...[facility]01-04-2025 History of Present illness Narrative* Kami Younger APRN.[facility] - 09/17/2024 12:03 PM EST Subjective HPI Blanca presents today with concern for bleeding under his foreskin. He states he has had this many times in the past and it is a fungal infection that he has cream for at home, but just wants to haveit checked. Dysuria noted today only. PAST MEDICAL HISTORY Diagnosis Date Allergic rhinitis [...] Naprosyn [Naproxen], Penicillins, and Quinine Hcl MEDICATIONS acetaminophen 325 mg cap Take by mouth as needed. furosemide (LASIX) 40 mg/4 mL soln 5-fluorouracil 2.5% acyclovir 5% diclofenac 1% salicylic acid 10% topical (CPD) Apply 0.25-0.5 g toaffected area two times a day. magnesium oxide (MAG-OX) 400 mg (241.3 mg magnesium) tablet Take 400 mg by mouth once daily. nitroglycerin sublingual (NITROSTAT) 0.4 mg SL tablet Dissolve 0.4 mg under the tongue every 5 minutes as needed for chest pain. Omeprazole-Sodium Bicarbonate 40-1,680 mg pack Take by mouth. tamsulosin (FLOMAX) 0.4 mg Take 1 capsule by mouth two times a day. ACCU-CHEK LINDSAY PLUS TEST STRP test strip ACCU-CHEK GUIDE ME GLUCOSE MTR USE DIRECTED THREE TIMES DAILY NOVOLIN N NPH U-100 INSULIN 100 unit/mL injection INJECT 40 UNITS SUBCUTANEOUSLY IN THE MORNING ANDIN THE EVENING isosorbide mononitrate ER (IMDUR) 30 [...] Take 75 mg by mouth once daily. losartan 50 mg tablet Take 50 mg by mouth once daily. metFORMIN 1,000 mg tablet Take 1,000 mg by mouth twice daily with meals. montelukast (SINGULAIR) 10 mg tablet Take 10 mg by mouth daily at bedtime. sitaGLIPtin (JANUVIA) 100 mg tablet Take 100 mg by mouth once daily. fluticasone (FLONASE) 50 mcg/actuation nasal spray Use 1 [place] in each nostril once daily. mometasone-formoterol (DULERA) 200-5 mcg/actuation inhaler Inhale as instructed two times a day. econazole 1 % TOPICAL cream Apply to affected area once daily. ALPRAZolam 0.25 mg ORAL tablet Take 0.25 mg by mouth at bedtime as needed. busPIRone (BUSPAR) 10 mg tablet Take 10 mg by mouth four times daily as needed. pramipexole (MIRAPEX) 1 mg tablet Take 1 mg by mouth twice daily. metoprolol succinate XL (TOPROL XL) 25 mg ORAL 24 hr tablet Take 25 mg by mouth once daily. ALBUTEROL SULFATE (PROVENTIL HFA INHALATION) Inhale as instructed. diphenoxylate-atropine (LOMOTIL) 2.5-0.025 mg per tablet Take 1 tablet by mouth four times a day asneeded. azelastine (ASTELIN, ASTEPRO) 0.1% nasal spray Use 1 [place] in the nose two times a day. Use in eachnostril as directed econazole (SPECTAZOLE) 1 % cream Apply to affected area once daily. glyBURIDE 2.5 mg ORAL tablet Take 2.5 mg by mouth daily with breakfast. Pitavastatin (LIVALO) 2 mg ORAL Tab Take by mouth. FAMILY HISTORY Problem Relation Age of Onset Alzheimer's Disease Mother Diabetes Mother Hypertension Mother No Ocular Disease Mother Heart Father No Ocular Disease Father Glaucoma Brother Social History Tobacco Use Smoking status: Never Passive exposure: Never Smokeless tobacco: Former Types: Chew Vaping Use Vaping status: Never Used Substance Use Topics Alcohol use: No Drug use: No Review of Systems Genitourinary: Positive for dysuria. Blood noted under foreskin All other systems reviewed and are negative. Objective Physical Exam Vitals and nursing note reviewed. Constitutional: Appearance: Normal appearance. HENT: Head: Normocephalic and atraumatic. Nose: Nose normal. Mouth/Throat: Mouth: Mucous membranes are dry. Eyes: General: Right eye: Right eye discharge: urin culture. Extraocular Movements: Extraocular movements intact. Pupils: Pupils are equal, round, and reactive to light. Cardiovascular: Rate and Rhythm: Normal rate and regular rhythm. Pulses: Normal pulses. Heart sounds: Normal heart sounds. Pulmonary: Effort: Pulmonary effort is normal. Abdominal: General: Abdomen is flat. There is no distension. Palpations: Abdomen is soft. There is no mass. Tenderness: There is no abdominal tenderness. There is no right CVA tenderness, left CVA tenderness, guarding or rebound. Hernia: No hernia is present. Musculoskeletal: General: Normal range of motion. Cervical back: Normal range of motion. Skin: General: Skin is warm and dry. Capillary Refill: Capillary refill takes less than 2 seconds. Neurological: General: No focal deficit present. Mental Status: He is alert and oriented to person, place, and time. Psychiatric: Mood and Affect: Mood normal. ASSESSMENT/PLAN: 1. Open wound - ICD9: 879.8, ICD10: T14.8XXA (primary diagnosis) Continue cream as previously prescribed - YEAST SCREEN - ABSCESS AND WOUND CULTURE WITH GRAM STAIN 2. Dysuria - ICD9: 788.1, ICD10: R30.0 acute - UA positive for all negative - Send urine for culture - Patient education for prevention given - URINE CULTURE - due to pain just started one time prior to arrival and has irritation to penis, we will not prescribed antibiotic until culture results. He is aware to call if symptoms develop Kami Younger APRN.BENJAMIN documented in this encounterSt. [facility] Telephone encounter Note * Telephone Encounter - Ritu Law RN - 09/17/2024 8:32 AM EST Call placed to patient and reviewed message as below. No changes from 09/13/2024. No signs of infection. Didn't follow up with PCP on as mentioned. Instructed patient to contact PCP office per previous notes. Patient reports that he might come in to [facility] if the weather improves as he just wants someone to tell him that the cream he is using is ok for his problem. Noted ordered by dermatology and would recommend if that is what they previously ordered for this problem. Patient reports he has a follow up appointment with dermatology in 3 weeks. Ritu Law RN [facility]01-04-2025 Miscellaneous Notes* Telephone Encounter - Ritu Law RN - 09/17/2024 8:32 AM EST Call placed to patient and reviewed message as below. No changes from 09/13/2024. No signs of infection. Didn't follow up with PCP on as mentioned. Instructed patient to contact PCP office per previous notes. Patient reports that he might come in to [facility] if the weather improves as he just wants someone to tell him that the cream he is using is ok for his problem. Noted ordered by dermatology and would recommend if that is what they previously ordered for this problem. Patient reports he has a follow up appointment with dermatology in 3 weeks. Ritu Law RN * Telephone Encounter - Kami Mccord - 09/17/2024 8:19 AM EST Blanca is calling Maya Pradhan DO today with concern regarding Symptoms of issues within the groinarea and has had some bleeding under the foreskin. Asking to speak with a nurse. Patient has been identified by name and birthdate. Duration of symptoms: N/A Person calling: self Call patient at: at home [phone] (home) [phone] (cell) Was an appointment scheduled: No Closing statement: Symptom Call: Thank you for calling [facility], your call is very important. A nurse will call in approximately 2-4 hours during business hours. If this is an emergency, please contact 911. Kami Mccord documented in this encounterSt. [facility]01-04-2025 Telephone encounter Note * Telephone Encounter - Kami Mccord - 09/17/2024 8:19 AM EST Blanca is calling Maya Pradhan DO today with concern regarding Symptoms of issues within the groinarea and has had some bleeding under the foreskin. Asking to speak with a nurse. Patient has been identified by name and birthdate. Duration of symptoms: N/A Person calling: self Call patient at: at home [phone] (home) [phone] (cell) Was an appointment scheduled: No Closing statement: Symptom Call: Thank you for calling [facility], your call is very important. A nurse will call in approximately 2-4 hours during business hours. If this is an emergency, please contact 911. [address] [facility]12-31-2024 Telephone encounter Note* Telephone Encounter - Carlos Eduardo Matias RN - 09/13/2024 1:50 PM EST Called patient and answered questions. Patient states he does not feel poorly nor have any signs ofinfection. Patient is taking a cortisol cream for itching. He has an appointment on and will have his primary care physician look to make sure that it is ok. [facility]12[facility] Miscellaneous Notes* Telephone Encounter - Carlos Eduardo Matias RN - 09/13/2024 1:50 PM EST Called patient and answered questions. Patient states he does not feel poorly nor have any signs ofinfection. Patient is taking a cortisol cream for itching. He has an appointment on and will have his primary care physician look to make sure that it is ok. * Telephone Encounter - Cristiana Newman - 09/13/2024 11:56 AM EST Patient is using the cream provided for his foreskin but it has flared up and he has new bleeding under the foreskin and needs to speak to a nurse today for advice please. Thank you. documented in this encounterSt. [facility] Hospital12-31-2024 Telephone encounter Note * Telephone Encounter - Cristiana Newman - 09/13/2024 11:56 AM EST Patient is using the cream provided for his foreskin but it has flared up and he has new bleeding under the foreskin and needs to speak to a nurse today for advice please. Thank you. [facility]11-05-2024 Instructions* Patient Instructions* Kodi Vuong APRN.BENJAMIN - 07/19/2024 7:37 AM EST I feel that your symptoms today are most consistent with a fungal infection on the tip of the penisand on the scrotum. I recommend that you use the nystatin powder every day as directed until you follow-up with dermatology on the . The small amount of blood that you are seeing on your depends I feel is just related to irritated skin and should heal as you continue to use the powder. documented in this encounterSt. Anthony'S Hospital11-05-2024 NoteHNO ID: [id number] Author: KODI VUONG APRN.BENJAMIN Service: ? Author Type: Nurse Practitioner Type: Progress Notes Filed: 07/19/2024 07:40 Note Text: This note was created using inMEDIA Corporationriter. Subjective lBanca Gill is a 73 year old male. HPI Pt has a rash on the scrotum and under the foreskin. It was bleeding this morning. The rash has been off and on for the last several years. He has seen dermatology who prescribed a steroid cream but he can only use it for a week at a time. Review of Systems Constitutional: Negative for fever. Genitourinary: Negative for dysuria, scrotal swelling and testicular pain. Objective BP 142/84 Pulse 96 Temp 36.4 ?C (97.6 ?F) Resp 18 Wt 111.5 kg (245 lb 13 oz) SpO2 97% BMI 37.38 kg/m? Physical Exam Vitals and nursing note reviewed. Constitutional: General: He is not in acute distress. Appearance: Normal appearance. He is not ill-appearing. HENT: Head: Normocephalic. Mouth/Throat: Mouth: Mucous membranes are moist. Eyes: Conjunctiva/sclera: Conjunctivae normal. Pulmonary: Effort: Pulmonary effort is normal. Genitourinary: Comments: Mild excoriated skin on the scrotum. Patient is uncircumcised and under the skin at the base of the glans there is some excoriated skin with a scant amount of blood noted. Musculoskeletal: General: Normal range of motion. Cervical back: Normal range of motion. Skin: General: Skin is warm and dry. Neurological: General: No focal deficit present. Mental Status: He is alert. Psychiatric: Mood and Affect: Mood normal. Behavior: Behavior normal. Assessment and Plan ASSESSMENT/PLAN: 1. Fungal infection of the groin - ICD9: 110.3, ICD10: B35.6 -Patient has already been prescribed nystatin powder. He states he was using it for 2 weeks and then was stopping. I instructed him that he should continue to use the nystatin powder as directed daily until he follows up with dermatology August 05. Patient does wear depends and as such the area does stay moist and I informed him that I felt that he was probably just getting the fungal infection under control and he would stop using the powder and then it would return. [facility]ong [facility] History of Present illness Narrative* Kodi Vuong APRN.[facility] - 07/19/2024 7:28 AM EST This note was created using in[employer]riter. Subjective Blanca Gill is a 73 year old male. HPI Pt has a rash on the scrotum and under the foreskin. It was bleeding this morning. The rash has been off and on for the last several years. He has seen dermatology who prescribed a steroid cream but he can only use it for a week at a time. Review of Systems Constitutional: Negative for fever. Genitourinary: Negative for dysuria, scrotal swelling and testicular pain. Objective BP 142/84 Pulse 96 Temp 36.4 C (97.6 F) Resp 18 Wt 111.5 kg (245 lb 13 oz) SpO2 97% BMI37.38 kg/m Physical Exam Vitals and nursing note reviewed. Constitutional: General: He is not in acute distress. Appearance: Normal appearance. He is not ill-appearing. HENT: Head: Normocephalic. Mouth/Throat: Mouth: Mucous membranes are moist. Eyes: Conjunctiva/sclera: Conjunctivae normal. Pulmonary: Effort: Pulmonary effort is normal. Genitourinary: Comments: Mild excoriated skin on the scrotum. Patient is uncircumcised and under the skin at the base of the glans there is some excoriated skin with a scant amount of blood noted. Musculoskeletal: General: Normal range of motion. Cervical back: Normal range of motion. Skin: General: Skin is warm and dry. Neurological: General: No focal deficit present. Mental Status: He is alert. Psychiatric: Mood and Affect: Mood normal. Behavior: Behavior normal. Assessment and Plan ASSESSMENT/PLAN: 1. Fungal infection of the groin - ICD9: 110.3, ICD10: B35.6 -Patient has already been prescribed nystatin powder. He states he was using it for 2 weeks and then was stopping. I instructed him that he should continue to use the nystatin powder as directed daily until he follows up with dermatology August 05. Patient does wear depends and as such the area does stay moist and I informed him that I felt that he was probably just getting the fungal infectionunder control and he would stop using the powder and then it would return. Kodi Vuong APRN.BENJAMIN documented in this encounterSt. Anthony'S Hospital10-31-2024 Procedure note* Carlos Eduardo Sidhu MD - 07/14/2024 9:10 AM EDT CYSTOSCOPY PROCEDURE NOTE : Blanca Gill is a 73 year old male who presents with BPH for cystoscopy. PRE-OP/PRE-PROCEDURE DIAGNOSIS: bpH and lower urinary tract symptoms POST-OP/POST-PROCEDURE DIAGNOSIS: Same SURGERY/PROCEDURE(S): Cystoscopy Pt ID verified with patient: Yes Procedure verified with patient: Yes Procedure confirmed with physician and gwot ia/ilo intelligence support: Yes UNIVERSAL PROTOCOL / SAFETY CHECKLIST Procedure to be Performed: Cystoscopy Sign In: A Moment of CARE was completed. Personnel directly involved with the procedure wore the appropriate PPE (Personal Protective Equipment). Patient/Surrogate Stated/Verified: PATIENT VERIFIED(optional for EMERGENT procedures): Patient name, Date of , Relevant allergies, and The intended procedure Time Out Communication: Intended patient and procedure match the source documents. Consent documented and matches the intended procedure. Sign Out: SIGN OUT (optional for EMERGENT procedures): No specimen collected. Carlos Eduardo Sidhu MD A urinalysis was performed revealing no evidence of infection. The benefits, risks, alternatives of the cystoscopy procedure and personnel were discussed with thepatient. The verbal consent was obtained and the patient agrees to proceed. Procedure: The patient was placed on the procedure table in the supine position and prepped and draped in the usual sterile fashion. 2% Lidocaine Jelly was placed per urethra as an anesthetic in the standard fashion. Once adequate local anesthesia was achieved, the tip of the flexible cystoscope was carefully placed into the urethra under direct visual guidance. The scope was negotiated through the pendulous urethra to the level of the bulbar urethra with no evidence of stricture. The verumontanum came into view and the scope was negotiated through the prostatic urethra which showed evidence of bi lobar occlusive disease. The bladder was entered and careful bowden endoscopy was carried out. The posterior, superior and lateral carter and dome of the bladder were all well visualized and the scope was retroflexed upon itself. The findings were consistent with no evidence of bladder mucosal pathology. The findings were consistent with smooth, not trabeculated bladder. At the conclusion of the procedure, the flexible cystoscope was removed atraumatically. The patienttolerated the procedure without complications. Patient was given standard post-procedure instructions, and was directed to complete the course of oral antibiotics and increase oral fluid intake as directed. IMPRESSION: OAB BPH and lower urinary tract symptoms. He is predominantly bothered by urinary frequency exacerbated by 8 cups of coffee daily and his diuretics. He has a mild false passage in the posterior aspect of the bulbar urethra. He has moderate lateral lobe hyperplasia with no trabeculation. PLAN: Eliminate caffeine, coffee. If symptoms resolve then follow-up annually If his symptoms persist then I have recommended urodynamics and prostate ultrasound. Carlos Eduardo Sidhu MD Electronically Signed: Carlos Eduardo Sidhu MD July 14, 2024 9:10 AM This note was partially created using voice recognition software and is inherently subject to errors including those of syntax and sound-alike substitutions which may escape proofreading. In such instances, original meaning may be extrapolated by contextual derivation. [facility]10-[facility]24 Procedure note* Carlos Eduardo Sidhu MD - 07/14/2024 9:10 AM EDT CYSTOSCOPY PROCEDURE NOTE : Blanca Gill is a 73 year old male who presents with BPH for cystoscopy. PRE-OP/PRE-PROCEDURE DIAGNOSIS: bpH and lower urinary tract symptoms POST-OP/POST-PROCEDURE DIAGNOSIS: Same SURGERY/PROCEDURE(S): Cystoscopy Pt ID verified with patient: Yes Procedure verified with patient: Yes Procedure confirmed with physician and gwot ia/ilo intelligence support: Yes UNIVERSAL PROTOCOL / SAFETY CHECKLIST Procedure to be Performed: Cystoscopy Sign In: A Moment of CARE was completed. Personnel directly involved with the procedure wore the appropriate PPE (Personal Protective Equipment). Patient/Surrogate Stated/Verified: PATIENT VERIFIED(optional for EMERGENT procedures): Patient name, Date of , Relevant allergies, and The intended procedure Time Out Communication: Intended patient and procedure match the source documents. Consent documented and matches the intended procedure. Sign Out: SIGN OUT (optional for EMERGENT procedures): No specimen collected. Carlos Eduarod Sidhu MD A urinalysis was performed revealing no evidence of infection. The benefits, risks, alternatives of the cystoscopy procedure and personnel were discussed with thepatient. The verbal consent was obtained and the patient agrees to proceed. Procedure: The patient was placed on the procedure table in the supine position and prepped and draped in the usual sterile fashion. 2% Lidocaine Jelly was placed per urethra as an anesthetic in the standard fashion. Once adequate local anesthesia was achieved, the tip of the flexible cystoscope was carefully placed into the urethra under direct visual guidance. The scope was negotiated through the pendulous urethra to the level of the bulbar urethra with no evidence of stricture. The verumontanum came into view and the scope was negotiated through the prostatic urethra which showed evidence of bi lobar occlusive disease. The bladder was entered and careful bowden endoscopy was carried out. The posterior, superior and lateral carter and dome of the bladder were all well visualized and the scope was retroflexed upon itself. The findings were consistent with no evidence of bladder mucosal pathology. The findings were consistent with smooth, not trabeculated bladder. At the conclusion of the procedure, the flexible cystoscope was removed atraumatically. The patienttolerated the procedure without complications. Patient was given standard post-procedure instructions, and was directed to complete the course of oral antibiotics and increase oral fluid intake as directed. IMPRESSION: OAB BPH and lower urinary tract symptoms. He is predominantly bothered by urinary frequency exacerbated by 8 cups of coffee daily and his diuretics. He has a mild false passage in the posterior aspect of the bulbar urethra. He has moderate lateral lobe hyperplasia with no trabeculation. PLAN: Eliminate caffeine, coffee. If symptoms resolve then follow-up annually If his symptoms persist then I have recommended urodynamics and prostate ultrasound. Carlos Eduardo Sidhu MD Electronically Signed: Carlos Eduardo Sidhu MD July 14, 2024 9:10 AM This note was partially created using voice recognition software and is inherently subject to errors including those of syntax and sound-alike substitutions which may escape proofreading. In such instances, original meaning may be extrapolated by contextual derivation. documented in this encounterSt. [facility]10-[facility]24 Instructions* Patient Instructions* Lamar Quinones, SINDHU.[facility] - 06/21/2024 10:01 AM EDT Images from the original note were not included. Cystoscopy What is a cystoscopy? A cystoscopy is a procedure done by a urologist, a doctor specializing in the urinary system. During a cystectomy, the urologist uses a scope to look at the inside of the bladder, where urine is stored, and in the urethra, the channel that urine flows through out of the bladder. A cystoscopy may also be used to remove something that shouldn t be there, such as a bladder stone,or to take a biopsy (a sample of tissue) from the bladder lining to analyze it in the lab for further information. The procedure can also help with placing a catheter, which is a thin drainage tube for urine. When is a cystoscopy needed? The cystoscopy procedure is ordered by the urologist when more information is needed about what is happening inside the lower urinary tract. Most often it is used to check for any problems in the bladder and its lining. The procedure is also an important tool to identify what may be causing abnormal problems, such as: Frequent urinary tract infections (UTIs) Hematuria, or blood in the urine Urinary frequency, or urinating more than 8 times a day Urinary urgency, or the sudden, strong urge to urinate Urinary retention, or when the bladder does not empty completely Urinary incontinence, or urine leakage Pain or burning before, during, or after urination Trouble starting the flow of urine, completing urination, or both Abnormal cells found in a urine sample How does a patient prepare for a cystoscopy? Before the procedure is recommended, the urologist will ask about the patient s medical history, current prescription and wbqv-ujx-jczvtay medications, and allergies to medications, including anesthetics. The urologist will explain what the patient can expect after the procedure. The patient may need to give a urine sample to test for a urinary tract infection (UTI). If the patient has a UTI, the urologist may treat the infection with antibiotics before performing a cystoscopy. The urologist or nurse may ask the patient to drink plenty of liquids, and to urinate immediately before the procedure. What happens during a cystoscopy procedure? The cystoscopy procedure usually takes about 30 minutes and is done on an outpatient basis. The urologist will recommend that the patient empty his or her bladder before the procedure begins. The [id number]-[id number] process may be similar to this: The patient will be lying on an exam table. The urologist may place some gel or a local anesthetic in the patient s urethra to aid in reducing any discomfort while the procedure is taking place. The urologist will gently insert the cystoscope through the urethra into the bladder. The patient may feel discomfort or a pressure sensation. The cystoscope is a long, thin tube with a lens on one end that the urologist looks through or, on a camera-equipped scope, visualizes on a monitor. The other end of the cystoscope that is inserted into the urethra has a tiny lens with a light thatallows the urologist to look inside the urethra and bladder. There are two types of cystoscopes. One has a flexible insertion tube while the other is stiff. Once the cystoscope is inserted, the urologist will need to instill some sterile water or a normal saline solution from the cystoscope into the bladder. The water /saline fills and stretches the bladder so the urologist can get a better view of the bladder wall. As the liquid enters the bladder, the patient may again feel some discomfort as well as the urge tourinate. If necessary, the urologist can remove some of the liquid from the bladder during the procedure. Once the procedure is over, the urologist may drain the patient s bladder, or ask the patientto use the bathroom to urinate before he or she leaves the office. During the brief procedure, the urologist examines the lining of the urethra as the cystoscope passes through it and then into the bladder. Once the cystoscope reaches the bladder, the urologist examines the lining of the bladder. During the procedure, the urologist can remove a bladder stone or take a biopsy if needed. Sometimes a monitor is set up in the doctor s office so that both the urologist and patient can watch the procedure as it is taking place. What does the urologist look for during a cystoscopy? The urologist will be looking for anything that appears unusual. The bladder wall should be smooth,and there should not be any blockages in the lower urinary tract. During a cystoscopy, the urologist is able to see: Bladder stones: A small stone-like mass that forms from minerals in the urine. It usually forms when urine does not completely leave the bladder and the minerals in the urine crystallize. If not treated, they can cause pain and lead to blood in the urine. A stone can also cause a blockage so that urine cannot leave the bladder. Abnormal tissue, polyps, tumors, or cancer in the urethra or bladder Stricture, or a narrowing of the urethra: This could be a symptom of an enlarged prostate in men orof scar tissue in the urethra. During the cystoscopy, can the urologist treat some problems? During a cystoscopy, the urologist may be able to treat minor problems such as bleeding in the bladder or blockage in the urethra. The urologist may also use a cystoscopy to: Remove a small stone in the bladder or urethra Remove or treat abnormal tissue, polyps, and certain tumors Inject medication into the urethra wall or the bladder to treat urinary leakage What happens after the cystoscopy procedure? Typically, a cystoscopy is done in the urologist s office and afterwards most patients go home the same day as the procedure. Sometimes after a cystoscopy procedure, the patient may: Feel a burning or soreness around the urethra Feel slight burning while urinating Notice small flecks of blood in the urine Feel mild discomfort in the bladder area or kidney area when urinating Need to urinate frequently or urgently These problems should not last more than a day after the procedure. If pain persists, bloody urine lasts longer than 48 hours, or the patient develops a fever, the patient should call the doctor. Occasionally, the patient may have an increase in urinary frequency for the first 24 hours after the procedure. There may be also a change in the color of the urine (it may be darker, or look pink orred due to mild bleeding). This is common, especially if a biopsy was taken. After the procedure, the urologist may recommend that the patient: Drink 16 ounces of water each hour for 2 hours after the procedure Take a warm bath to help ease the burning feeling Place a warm, damp washcloth over the urethral opening to relieve discomfort Take an sgna-mjw-[id number] pain medicine If necessary, the urologist may prescribe an antibiotic to take for a couple of days after the procedure to prevent an infection. If you have severe pain, chills, or fever (these could be signs of aninfection), it is important to call the urologist s office and explain the symptoms. What are the risks of cystoscopy? Every patient is different, and the urologist will take into consideration each patient s specific medical history when explaining possible complications from the procedure. Although minimal, the risks of cystoscopy may include: Urinary tract infections (UTI) Bleeding Abdominal pain Burning or discomfort during urination Possible injury to the urethra or bladder Narrowing of the urethra because of scar tissue formation Trouble urinating due to swelling of surrounding tissues If any of the following symptoms occur after a cystoscopy, you should call the urologist right away: Inability to urinate and the discomfort of a full bladder Burning or discomfort during urination that lasts more than 2 days Bright red urine or blood clots in the urine Fever Severe discomfort References: NIH: National [place] of Diabetes and Digestive and Kidney Diseases. Cystoscopy and Ureteroscopy Accessed 03/12/2017. Evens Barakat, Blake Jacinto, Zoya Grande, Tracey MASON. The History of Cystoscopy in Urology, Internet Journal of Urology. 14,1 (2015) [employer] Accessed 03/12/2017. [facility], [place]. What is Cystoscopy? Accessed 03/12/2017. Copyright 7370-1020 [facility]. All rights reserved. documented in this encounterSt. Anthony'[facility] Hospital10-08-2024 Nurse Note* Sonja Bautista MA - 06/21/2024 9:34 AM EDT Post void bladder scan completed. 248 ml residual remaining. Results reported to Lamar Quinones CNP [facility] Nurse Note* Sonja Bautista MA - 06/21/2024 9:34 AM EDT Post void bladder scan completed. 248 ml residual remaining. Results reported to Lamar Quinones CNP documented in this encounterSt. Anthony'S Hospital10-08-2024 History of Present illness Narrative* Lamar Quinones APRN.[facility] - 06/21/2024 9:21 AM EDT Blanca Gill is a 73 year old male who presents today for a follow up for Patient presents with: Established Patient: Follow up/urgency CHIEF COMPLAINT & HISTORY OF PRESENT ILLNESS CC: hospital follow up 73 year old male with a history of anxiety, diabetes, htn, ED, BPH presents for reports of urgency,frequency, recent perez catheter with hospitalization for he fell at home and was found to have pneumonia. He reports having a difficult time holding his urine, he reports urgency. DTf every 2 hours,NTF 0-1. Stream is moderate.He denies dysuria, gross hematuria PVR today is 248 cc. Currently taking flomax 0.4 mg po daily Admitted to [facility] and he feels that his LUTS have changed since the perez was placed. Urine collected last week culture was negative PSA 1.27 He was seen by raudel and told to apply hydrocortisone to his foreskin for irritation. Penile biopsy by derm in December 2023 negative Today he is asking for an examine to check the biopsy site VITALS: There were no vitals taken for this visit. ALLERGIES: Aspergillus Fumigatus Allergenic Extract, Benadryl [Diphenhydramine Hcl], Biaxin [Clarithromycin], Byetta [Exenatide], Levsin [Hyoscyamine Sulfate], Lidocaine, Naprosyn [Naproxen], Penicillins, and Quinine Hcl MEDICATIONS: Current Outpatient Medications Medication Sig Dispense Refill ACCU-CHEK LINDSAY PLUS TEST STRP test strip ACCU-CHEK GUIDE ME GLUCOSE MTR USE DIRECTED THREE TIMES DAILY NOVOLIN N NPH U-100 INSULIN 100 unit/mL injection INJECT 40 UNITS SUBCUTANEOUSLY IN THE MORNING ANDIN THE EVENING isosorbide mononitrate ER (IMDUR) 30 [...] Take 75 mg by mouth once daily. losartan 50 mg tablet Take 50 mg by mouth once daily. (Patient not taking: Reported on 03/29/2024) metFORMIN 1,000 mg tablet Take 1,000 mg by mouth twice daily with meals. montelukast (SINGULAIR) 10 mg tablet Take 10 mg by mouth daily at bedtime. sitaGLIPtin (JANUVIA) 100 mg tablet Take 100 mg by mouth once daily. fluticasone (FLONASE) 50 mcg/actuation nasal spray Use 1 [place] in each nostril once daily. mometasone-formoterol (DULERA) 200-5 mcg/actuation inhaler Inhale as instructed twice daily. econazole 1 % TOPICAL cream Apply to affected area once daily. (Patient not taking: Reported on 03/29/2024) 0 ALPRAZolam 0.25 mg ORAL tablet Take 0.25 mg by mouth at bedtime as needed. busPIRone (BUSPAR) 10 mg tablet Take 10 mg by mouth four times daily as needed. pramipexole (MIRAPEX) 1 mg tablet Take 1 mg by mouth twice daily. metoprolol succinate XL (TOPROL XL) 25 mg ORAL 24 hr tablet Take 25 mg by mouth once daily. ALBUTEROL SULFATE (PROVENTIL HFA INHALATION) Inhale as instructed. diphenoxylate-atropine (LOMOTIL) 2.5-0.025 mg per tablet Take 1 tablet by mouth four times a day asneeded. (Patient not taking: Reported on 03/29/2024) azelastine (ASTELIN, ASTEPRO) 0.1% nasal spray Use 1 [place] in the nose twice daily. Use in each nostril as directed econazole (SPECTAZOLE) 1 % cream Apply to affected area once daily. (Patient not taking: Reported on 03/29/2024) glyBURIDE 2.5 mg ORAL tablet Take 2.5 mg by mouth daily with breakfast. Pitavastatin (LIVALO) 2 mg ORAL Tab Take by mouth. No current facility-administered medications for this visit. SOCIAL HISTORY: Social History Tobacco Use Smoking status: Never Smokeless tobacco: Former Types: Chew Substance Use Topics Alcohol use: No Drug use: No PAST MEDICAL HISTORY: PAST MEDICAL HISTORY Diagnosis Date Allergic rhinitis Anxiety Diabetes (HCC) Essential hypertension, benign Hypertension Hypertrophy of prostate with urinary obstruction and other lower urinary tract symptoms (LUTS) Intrinsic asthma with status asthmaticus Irritable bowel syndrome Pure hypercholesterolemia Restless leg syndrome Sinusitis, chronic Tobacco abuse PAST SURGICAL HISTORY: PAST SURGICAL HISTORY Procedure Laterality Date APPENDECTOMY CHOLECYSTECTOMY PAST SURGICAL HISTORY OF 2009 left knee arthroscopy VASECTOMY XCAPSL CTRC RMVL INSJ IO LENS PROSTH W/O ECP Left 07/29/2018 XCAPSL CTRC RMVL INSJ IO LENS PROSTH W/O ECP Right 08/19/2018 Cataract Extraction with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 History Smoking Status: Never smoker second hand exposure: No alcohol intake: never substance use type: does not use caffeine: No seatbelt use: always do you feel safe at home: Yes ROS Constitutional Constitutional: Denies chills, fever(s), frequent falls, lethargy or weakness Eyes Eyes: Denies blind spots, change in vision or loss of vision ENT HEENT: Denies bleeding gums, hoarseness or sore throat Cardiovascular Cardiovascular: Denies abdominal pain, bluish discoloration of hand/feet, chest pain with activity, claudication, cold extremities, cyanosis, dyspnea on exertion, erythema on extremities, irregular heart rhythm, leg edema, leg ulcers, numbness in extremities or weakness in extremities Respiratory/Chest Respiratory/Chest: Denies cough, excessive phlegm production, shortness of breath at rest, shortness of breath with exertion or wheezing Gastrointestinal Gastrointestinal: Denies anorexia, change in stool character, constipation, diarrhea, melena or rectal bleeding Genitourinary Genitourinary: Denies dysuria or hematuria Musculoskeletal Musculoskeletal: Denies abnormal gait Integumentary Integumentary: Reports other Details: ; Denies erythema, non-healing lesions or wounds Neurologic Neurologic: Denies abnormal speech, focal weakness, headache(s), loss of vision,numbness, paresthesias or sensory deficit Hematologic/Lymphatic Hematologic/Lymphatic: Denies easy bleeding, easy bruising or lymphadenopathy Vital Signs Vital Signs Vital Signs: Weight Weight: 241 lb Body Mass Index (BMI) 36.6 Physical Exam Const alert, oriented x3, no apparent distress and healthy appearing General Appearance: cooperative; Negative for combative or lethargic Orientation / Consciousness: awake Exam Limitations: no limitations HEENT Head and Scalp: normocephalic and atraumatic Eyes EOMs intact bilaterally General Eye: normal appearance of both eyes Neck full ROM, no lymphadenopathy, thyroid normal and No no carotid bruits General: trachea midline; Negative for lymphadenopathy or tenderness Thyroid: thyroid normal Lymph Lymphatic: Negative for no lymphadenopathy noted Resp normal respiratory effort and no use of accessory muscles Effort and Inspection: Negative for labored, stridor or audible wheezes Cardio regular rate and regular rhythm Back/Spine Cervical Spine: cervical ROM normal Extremity full ROM, normal capillary refill and no clubbing, cyanosis or edema Skin no rashes or lesions noted and no wounds Neuro oriented x3, CN's II-XII intact bilaterally, no focal motor deficits and no sensory deficits noted Psych thought process normal, cooperative, affect normal, speech normal and activity/motor behavior normal Results Lab / Micro Data 09/30/23 06:48 09/30/23 06:48 Labs: Laboratory Results - last 24 hr 09/30/23 06:48: WBC 6.9, RBC 4.96, Hgb 12.4 L, Hct 41.5, MCV 83.7, MCH 25.0 L, MCHC 29.9 L, RDW Std Deviation 54.8 H, RDW Coeff of Jeanette 18.1 H, Plt Count 326, MPV 9.2, Sodium 136, Potassium 4.1, Chloride 97 L, Carbon Dioxide 37.0 H, Anion Gap 2 L, BUN 16, Creatinine 1.04, Estim Creat Clear Calc 76.98, Est GFR (MDRD) Af Amer 90, Est GFR (MDRD) Non-Af 75, BUN/Creatinine Ratio 15.4, Glucose 105, Calcium 9.4 Assessment & Plan Assessment/Plan (1) Ulcer of extremity due to chronic venous insufficiency: PLAN: -venogram 09/30/23 0811 <Electronically signed by Chema Payan MD> Cosigner Signature (if applicable): CC: Dr. Chema Payan MD; Dr. Maya Pradhan DO~ Signed [facility] Work Phone: 1(128) 695-320801-17-2024 Procedure [facility] 07-28-2023 Consult note Author Dandy Philogideon [facility] July 28, 2023 11:29am Note Date/Time July 28, 2023 11:29am [facility] Medical Records Department [address] [place] [address] Counseling Note - Pharmacy 07/28/23 1128 MR#: [id number] Acct: [id number] Name: BLANCA GILL Rep #:[id number] : 1950 72 From: Dandy Serrano PCP: Dr. Maya Pradhan DO Status:ADM IN [facility] has performed discharge medication reconciliation and counseling for this patient. The patient's discharge medication list was reviewed for discrepancies and discrepancies were resolved. The patient was counseled on the following discharge medications and changes in medications for homegoing were reviewed. The Reason for Use, instructions for use, and potential side effects were reviewed for all new medications. The patient's questions regarding all of their medications were answered. 1. Linezolid 600 mg PO BID x 7 days 2. Cephalexin 500 mg PO TID x 7 days The patient was able to verbally demonstrate an understanding of their dischargemedications. The patient was counselled on new medications by pharmacy intern Alex. Medications at Discharge Home Medications metformin 1,000 mg tablet 1,000 mg PO BIDCM diabetes 01/17/16 montelukast 10 mg tablet 10 mg PO QHS allergies 01/17/16 acetaminophen 325 mg tablet 325 - 650 mg (1 - 2 x 325 mg) PO Q6H PRN PRN Pain 07/14/17 aspirin 81 mg tablet,delayed release 81 mg PO DAILY@0800 #30 tabs 07/14/17 buspirone 10 mg tablet 10 mg PO TID Anxiety 05/07/18 pramipexole 1 mg tablet 2 mg PO QHS headache 05/07/18 cholecalciferol (vitamin D3) 50 mcg (2,000 unit) capsule 2,000 unit PO BID supplement 12/08/18 coenzyme Q10 100 mg capsule 100 mg PO DAILY supplement 12/08/18 magnesium oxide 400 mg PO DAILY supplement 12/08/18 fluticasone propionate 50 mcg/actuation nasal spray,suspension 1 spray intranasal DAILY PRN nasal spray 04/05/20 alprazolam 0.25 mg tablet 0.25 mg PO DAILY PRN anxiety 10/12/20 glyburide 2.5 mg tablet 5 mg PO BID diabetes 10/12/20 tizanidine 2 mg capsule 2 mg PO Q8H PRN Spasms 03/27/21 nitroglycerin 0.4 mg sublingual tablet 0.4 mg sublingual Q5M PRN Angina pain #25tabs 11/29/21 vitamin B complex 1 tab PO DAILY 03/14/22 albuterol sulfate 90 mcg/actuation aerosol inhaler (Ventolin HFA) 2 puff inhalation Q4H PRN shortness of breath or wheezing #18 grams 09/16/22 clopidogrel 75 mg tablet 75 mg PO DAILY 04/28/23 pravastatin 40 mg tablet 40 mg PO DAILY 04/28/23 isosorbide mononitrate 30 mg tablet,extended release 24 hr 30 mg PO DAILY #90 tabs 07/05/23 furosemide 40 mg tablet See Rx Instructions PO .COMPLEX #270 tabs 07/13/23 carvedilol 12.5 mg tablet 6.25 mg PO BID This is a dose increase 07/22/23 cephalexin 500 mg capsule 500 mg PO TID #20 caps 07/24/23 linezolid 600 mg tablet 600 mg PO BID #14 tabs 07/24/23 insulin NPH isoph U-100 human 100 unit/mL subcutaneous suspension See Rx Instructions subcut BID diabetes #10 mL 07/25/23 insulin lispro 100 unit/mL subcutaneous pen See Protocol subcut ACHS #0 mL 07/25/23 07/28/23 1129 <Electronically signed by Dandy burns> Date _ Dandy Gasparigner Signature (if applicable): Date CC: ~ Signed [facility] Work Phone: 1(799) 285-615211-14-2023 Discharge summary Author Chema Zambrano [facility] July 28, 2023 10:49am Note Date/Time July 28, 2023 10:48am [facility] Medical Records Department [address] [place] [id number] Discharge Summary 07/28/23 1047 MR#: [id number] Acct: [id number] Name: BLANCA GILL Rep #:[id number] : 1950 72 From: Chema Zambrano DO PCP: Dr. Maya Pradhan DO Status:ADM IN Location: [facility] [id number] Providers Date of Admission: 07/22/23 Primary Care Physician: Dr. 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 Routine Comment: Reason for Consult:: Nonhealing right lower extremity cellulitis with chronicvenous s 07/23/23 01:04 Consult: Infectious Disease Routine Consulting Provider: Alfonso Jade Reason for Consult: Worsening right lower extremity cellulitis With chronic venous stasis EMERGENT Consult: No MD Notified: Yes Date Notified: 07/23/23 Time Notified: 07:55 Method of Notification: Text Reason For Visit: RIGHT LOWER EXTREMITY CELLULITIS AND HYPONATREMIA Diagnosis Discharge Diagnosis (1) Cellulitis of leg, right: Status: Acute Code(s): L03.115 - Cellulitis of right lower limb Plan: Wound culture from 07/09 shows Enterococcus MSSA and Kluyvera. Antibiotic changed to vancomycin and cefazolin. 07/24: Repeat preliminary wound culture shows gram-negative saloni 2+, gram- positive organism 1+. Discussed with ID. Plan for discharge home on 1 week of linezolid 600 mg twice daily and Keflex 500 mg 3 times daily 07/25:Wound culture shows Serratia marcescens 2+ and: Negative staph 1+. Serratia marcescens pansensitive. Coagulase-negative might be skin contaminant. Discussed with ID and he said he will still give him both antibiotics for 1 week as he might have infection from previous infection. IV antibiotics vancomycin and cefazolin discontinued and started on Keflex and linezolid 07/26: Pending for pre-CERT. Advised to follow-up in wound clinic in [address] Goyo Katz's. Continue abx through the . (2) Acute hyponatremia: Status: Acute Code(s): E87.1 - Hypo-osmolality and hyponatremia Plan: Subacute/chronic hypervolemic hyponatremia of 123 mmol/L present on admission with lymphedema and varicose vein: Patient on Lasix and continued. Bilateral Satish wrap bandage. Patient had echo in March 2023 which was technically difficultreported EF 55%. Calcified aortic root. LA mildly enlarged. Normal valves. Urine osmolality 217. 07/24: Repeat sodium is 128 does not show improvement.On furosemide 80 mg a.m. and 40 mg p.o. oral daily. Oral furosemide changed to IV 40 mg twice daily. 07/25: Continue diuretic. Sodium is gradually improving. Today sodium 130. Furosemide IV changed to oral, furosemide 80 mg a.m. and 40 mg p.m. daily. (3) Diabetes mellitus, type 2: Status: Chronic Code(s): E11.9 - Type 2 diabetes mellitus without complications Qualifiers: Diabetes mellitus complication status: with unspecified complications Diabetes mellitus ocean transportation intermediary insulin use: with penitentiary use Qualified Code(s): E11.8 - Type 2 diabetes mellitus with unspecified complications; Z79.4 - senior living (current) use of insulin; Z79.4 - senior living (current) use of insulin; Z79.4- senior living (current) use of insulin; Z79.4 - senior living (current) use of insulin Plan Chronic conditions: * Diabetes mellitus type 2 uncontrolled with hyperglycemia - ADA diet. Fing erstick blood sugars before every meal and at bedtime plus sliding scale insulin. hemoglobin A1c 9.4 07/26: Hypoglycemia in the morning BMP and Accu- Chek. Evening dose of NPH insulin decreased. Hold scheduled NPH if glucose less than 130. Most recent 14. Patient denies symptoms of hypoglycemia. Discontinue glyburide 5 mg twice daily. * Obesity with BMI of 38.8 on admission with obstructive sleep apnea Weight loss will be recommended. * Essential hypertension - Continue home medications as previous. Plus give as needed IV hydralazine for systolic blood pressure greater than 160 mmHg. * Hyperlipidemia - Resume simvastatin. * History of coronary artery disease with STEMI in 2017 requiring stent placement with subsequent chronic diastolic CHF - Noted. Continue home regimen. * Restless leg syndrome - Continue home regimen as previous. DVT prophylaxis - Lovenox 40 mg subcu daily. Disposition: to SNF. Medications at Discharge Home Medications metformin 1,000 mg tablet 1,000 mg PO BIDCM diabetes 01/17/16 montelukast 10 mg tablet 10 mg PO QHS allergies 01/17/16 acetaminophen 325 mg tablet 325 - 650 mg (1 - 2 x 325 mg) PO Q6H PRN PRN Pain 07/14/17 aspirin 81 mg tablet,delayed release 81 mg PO DAILY@0800 #30 tabs 07/14/17 buspirone 10 mg tablet 10 mg PO TID Anxiety 05/07/18 pramipexole 1 mg tablet 2 mg PO QHS headache 05/07/18 cholecalciferol (vitamin D3) 50 mcg (2,000 unit) capsule 2,000 unit PO BID supplement 12/08/18 coenzyme Q10 100 mg capsule 100 mg PO DAILY supplement 12/08/18 magnesium oxide 400 mg PO DAILY supplement 12/08/18 fluticasone propionate 50 mcg/actuation nasal spray,suspension 1 spray intranasal DAILY PRN nasal spray 04/05/20 alprazolam 0.25 mg tablet 0.25 mg PO DAILY PRN anxiety 10/12/20 glyburide 2.5 mg tablet 5 mg PO BID diabetes 10/12/20 tizanidine 2 mg capsule 2 mg PO Q8H PRN Spasms 03/27/21 nitroglycerin 0.4 mg sublingual tablet 0.4 mg sublingual Q5M PRN Angina pain #25tabs 11/29/21 vitamin B complex 1 tab PO DAILY 03/14/22 albuterol sulfate 90 mcg/actuation aerosol inhaler (Ventolin HFA) 2 puff inhalation Q4H PRN shortness of breath or wheezing #18 grams 09/16/22 clopidogrel 75 mg tablet 75 mg PO DAILY 04/28/23 pravastatin 40 mg tablet 40 mg PO DAILY 04/28/23 isosorbide mononitrate 30 mg tablet,extended release 24 hr 30 mg PO DAILY #90 tabs 07/05/23 furosemide 40 mg tablet See Rx Instructions PO .COMPLEX #270 tabs 07/13/23 carvedilol 12.5 mg tablet 6.25 mg PO BID This is a dose increase 07/22/23 cephalexin 500 mg capsule 500 mg PO TID #20 caps 07/24/23 linezolid 600 mg tablet 600 mg PO BID #14 tabs 07/24/23 insulin NPH isoph U-100 human 100 unit/mL subcutaneous suspension See Rx Instructions subcut BID diabetes #10 mL 07/25/23 insulin lispro 100 unit/mL subcutaneous pen See Protocol subcut ACHS #0 mL 07/25/23 Hospital Course Operations None Procedures None Summary of Care Provided Minutes Spent on Discharge: 32 Weight / BMI Weight Weight: 110.2 kg Body Mass Index (BMI) 36.9 ABG / Lab / Microbiology Data 07/26/23 05:48 07/28/23 05:39 Laboratory: Laboratory Results - last 24 hr 07/26/23 20:59: POC Glucose 38 L* 07/26/23 21:14: POC Glucose 58 L 07/26/23 21:27: POC Glucose 61 L 07/27/23 11:19: POC Glucose 106 07/27/23 15:52: POC Glucose 182 H 07/27/23 21:33: POC Glucose 187 H 07/28/23 05:39: Sodium 130 L, Potassium 3.8, Chloride 86 L, Carbon Dioxide 38.0 H, Anion Gap 6, BUN 14, Creatinine 0.87, Estim Creat Clear Calc 75.34, Est GFR (MDRD) Af Amer 111, Est GFR (MDRD) Non-Af 92, BUN/Creatinine Ratio 16.1, [id number] H, Calcium 8.5 07/28/23 08:07: POC Glucose 172 H 07/28/23 09:11: POC Glucose 230 H Microbiology: Microbiology 07/23/23 09:00 Wound - Leg, Right Gram Stain - Final 07/23/23 09:00 Wound - Leg, Right Wound Culture - Final Serratia marcescens Coag Negative Staph D/C Instructions Discharge Diet: Low fat / Low cholesterol, 1800 Calorie Control Diet and 2000 mgSodium Diet Weight Bearing Status: Weight bearing as tolerated Call your doctor if you observe: Fever of 101 or Higher, Coldness, Increased Pain, Numbness or Tingling, Change in Color, Inability to urinate, Inability to have a bowel movement, Shortness of breath, Dizziness, Fainting spells, Swellingin the ankles, Chest pain, Prolonged hiccupping, Increased palpitations (irregular heartbeat) and Calf discomfort When: IN 2 WEEKS Meaningful Use Info Meaningful Use Diagnoses (Choose all that apply): None applicable Discharge Plan Admission Admit Date/Time: 07/22/23 22:30 Primary Reason for Your Visit: B/L LE ulcers. Subacute hyponatremia. Attending Provider: Chema Zambrano Primary Care Provider: Maya Pradhan Consulting Providers: Emmett Patten; Alfonso Jade; Stewart Dukes Instructions Additional Instructions / Restrictions: Discussed with the [facility] pharmacist. Maximum lispro insulin as per sliding scale will be 11 units per Accu-Chek therefore before meals and at bedtime, 4 times daily, maximum amount will be 44 units/day. Discharge Orders/Prescriptions Prescriptions: New linezolid 600 mg tablet 600 mg PO BID Qty: 14 0RF Rx Instructions: ok to take with low dose buspar cephalexin 500 mg capsule 500 mg PO TID Qty: 20 0RF Rx Instructions: tolerated cefazolin without issue insulin lispro 100 unit/mL Insulin Pen See Protocol subcut ACHS Qty: 0 0RF Protocol: 4. Sliding Scale Insulin High-Med Dosing Condition: 150-199 mg/dl = 2 units Condition: 200-259 mg/dl = 4 units Condition: 260-324 mg/dl = 6 units Condition: 325-374 mg/dl = 8 units Condition: 375-409 mg/dl = 10 units Condition: 410-449 mg/dl = 11 units Condition: Greater than 449 call physician Protocol Text: - Use for Total Daily Dose of Insulin 56-80 units - Patient who are insulin resistant or septic HIGH MEDIUM DOSING ALGORITHM Continued buspirone 10 mg tablet 10 mg PO TID tizanidine 2 mg capsule 2 mg PO Q8H PRN (Reason: Spasms) vitamin B complex Tablet 1 tab PO DAILY nitroglycerin 0.4 mg tablet, sublingual 0.4 mg SUBLINGUAL Q5M PRN (Reason: Angina pain) Qty: 25 3RF clopidogrel 75 mg tablet 75 mg PO DAILY pravastatin 40 mg tablet 40 mg PO DAILY metformin 1,000 MG tablet 1,000 mg PO BIDCM montelukast 10 MG tablet 10 mg PO QHS pramipexole 1 mg tablet 2 mg PO QHS Patient Comments: 1 mg PO 2 tablets by mouth at bedtime Rx Instructions: 1 mg PO 2 tablets by mouth at bedtime fluticasone propionate 50 mcg/actuation spray,suspension 1 spray INTRANASAL DAILY PRN (Reason: nasal spray) alprazolam 0.25 mg tablet 0.25 mg PO DAILY PRN (Reason: anxiety) Patient Comments: for anxiety acetaminophen 325 MG tablet 325 - 650 mg PO Q6H PRN PRN (Reason: Pain) 0RF aspirin 81 MG tablet 81 mg PO DAILY@0800 Qty: 30 0RF cholecalciferol (vitamin D3) 2,000 UNIT capsule 2,000 unit PO BID magnesium oxide 400 MG tablet 400 mg PO DAILY coenzyme Q10 100 MG capsule 100 mg PO DAILY carvedilol 12.5 mg tablet 6.25 mg PO BID Rx Instructions: must administer with a meal/food insulin NPH isoph U-100 human 100 unit/mL suspension See Rx Instructions SC BID Qty: 10 3RF Rx Instructions: 46 units in am, 42 units in evening subcut twice a day; hold if FASTING or HS glucose less than 130 mg/dl glyburide 2.5 mg tablet 5 mg PO BID albuterol sulfate [Ventolin HFA] 90 mcg/actuation HFA aerosol inhaler 2 puff INHALATION Q4H PRN (Reason: shortness of breath or wheezing) Qty: 18 6RF isosorbide mononitrate 30 mg tablet extended release 24 hr 30 mg PO DAILY Qty: 90 3RF furosemide 40 mg tablet See Rx Instructions PO .COMPLEX Qty: 270 3RF Rx Instructions: 80mg in AM and 40mg in PM; Discontinued clindamycin HCl 300 mg capsule 300 mg PO Q12H Referrals / Follow Up: Maya Pradhan DO [Primary Care Provider] - 08/03/23 11:20 am Goyo Katz DPM [Med Staff - Active Staff] - Within 1 Week (Follow-up in wound clinic.) Disposition Disposition (needs filled in before D/C Order can be placed): Detention Facility Charges/Coding Visit Charges Inpatient E&M: 87324 Disch Hosp >30min 07/28/23 1049 <Electronically signed by Chema Zambrano DO> Cosigner Signature (if applicable): CC: Dr. Chema Zambrano DO; Dr. Maya Pradhan DO~ Signed [facility] Work Phone: [phone]) 293-834111-14-2023 Discharge summary Author Chema Zambrano [facility] July 28, 2023 10:47am Note Date/Time July 28, 2023 10:[address] [facility] Medical Records Department [address] [place] [id number] [facility] MR#: [id number] Acct: [id number] Name: BLANCA GILL Rep #:[id number] : 1950 72 From: Chema Zambrano DO PCP: Dr. Maya Pradhan DO Status:ADM IN Certification of patient admission REQUIRED AT TIME OF ADMISSION. I CERTIFY THAT POST-HOSPITAL F SERVICES ARE REQUIRED TO BE GIVEN ON AN IN-PATIENT BASIS BECAUSE OF THE ABOVE NAMED PATIENT'S NEED FOR [facility] CARE ON A CONTINUING BASIS FOR THE CONDITION(S) FOR WHICH HE/SHE WAS RECEIVING IN-PATIENT HOSPITAL SERVICES PRIOR TO HIS/HER TRANSFER TO THE [facility]. 07/28/23 1047<Electronically signed by Chema Zambrano DO> Diet Diet Order/Speech Therapy: 07/23/23 02:05 Diet: Consistent Carb - Calorie Controlled Food consistency:: Regular Liquid Consistency:: Regular/Thin Dietary Modifications:: Cardiac / Heart Healthy Sodium Restricted How many daily calories?: 2000 calorie Wound(s) right lef: Wound Type: Skin Tear rt leg: Wound Type: cluster of stasis ulcers Dressing Change: Adaptic Lft outer ankle: Wound Type: Stasis Ulcer Therapies Weight Bearing: Full weight bearing Physical Therapy: Eval and Treat Occupational Therapy: Eval and Treat Problem/Diagnosis (1) Cellulitis of leg, right: Status: Acute Code(s): L03.115 - Cellulitis of right lower limb Plan: Wound culture from 07/09 shows Enterococcus MSSA and Kluyvera. Antibiotic changed to vancomycin and cefazolin. 07/24: Repeat preliminary wound culture shows gram-negative saloni 2+, gram- positive organism 1+. Discussed with ID. Plan for discharge home on 1 week of linezolid 600 mg twice daily and Keflex 500 mg 3 times daily 07/25:Wound culture shows Serratia marcescens 2+ and: Negative staph 1+. Serratia marcescens pansensitive. Coagulase-negative might be skin contaminant. Discussed with ID and he said he will still give him both antibiotics for 1 week as he might have infection from previous infection. IV antibiotics vancomycin and cefazolin discontinued and started on Keflex and linezolid 07/26: Pending for pre-CERT. Advised to follow-up in wound clinic in [address] Goyo Gallegoss. Continue abx through the . (2) Acute hyponatremia: Status: Acute Code(s): E87.1 - Hypo-osmolality and hyponatremia Plan: Subacute/chronic hypervolemic hyponatremia of 123 mmol/L present on admission with lymphedema and varicose vein: Patient on Lasix and continued. Bilateral Satish wrap bandage. Patient had echo in March 2023 which was technically difficultreported EF 55%. Calcified aortic root. LA mildly enlarged. Normal valves. Urine osmolality 217. 07/24: Repeat sodium is 128 does not show improvement.On furosemide 80 mg a.m. and 40 mg p.o. oral daily. Oral furosemide changed to IV 40 mg twice daily. 07/25: Continue diuretic. Sodium is gradually improving. Today sodium 130. Furosemide IV changed to oral, furosemide 80 mg a.m. and 40 mg p.m. daily. (3) Diabetes mellitus, type 2: Status: Chronic Code(s): E11.9 - Type 2 diabetes mellitus without complications Plan Chronic conditions: * Diabetes mellitus type 2 uncontrolled with hyperglycemia - ADA diet. Fingerstick blood sugars before every meal and at bedtime plus sliding scale insulin. hemoglobin A1c 9.4 07/26: Hypoglycemia in the morning BMP and Accu- Chek. Evening dose of NPH insulin decreased. Hold scheduled NPH if glucose less than 130. Most recent 14. Patient denies symptoms of hypoglycemia. Discontinue glyburide 5 mg twice daily. * Obesity with BMI of 38.8 on admission with obstructive sleep apnea Weight loss will be recommended. * Essential hypertension - Continue home medications as previous. Plus give as needed IV hydralazine for systolic blood pressure greater than 160 mmHg. * Hyperlipidemia - Resume simvastatin. * History of coronary artery disease with STEMI in 2017 requiring stent placement with subsequent chronic diastolic CHF - Noted. Continue home regimen. * Restless leg syndrome - Continue home regimen as previous. DVT prophylaxis - Lovenox 40 mg subcu daily. Disposition: to SNF. Allergies/Procedures Done in Hospital Allergies Penicillins Allergy (Severe, Verified 07/22/23 19:00) Shortness of breath quinine sulfate [From Quine] Allergy (Severe, Verified 07/22/23 19:00) passed out benzocaine [From Cetacaine] Allergy (Verified 07/22/23 19:00) Swelling butamben [From Cetacaine] Allergy (Verified 07/22/23 19:00) Swelling ciprofloxacin HCl [From Cipro] Allergy (Verified 07/22/23 19:00) Hives TONGUE SWELLS clarithromycin [From Biaxin] Allergy (Verified 07/22/23 19:00) Swelling exenatide [From Byetta] Allergy (Verified 07/22/23 19:00) Rash folic acid [From Proferrin-Forte] Allergy (Verified 07/22/23 19:00) Rash hyoscyamine sulfate [From Levsin] Allergy (Verified 07/22/23 19:00) Rash iron heme polypeptide [From Proferrin-Forte] Allergy (Verified 07/22/23 19:00) tongue swelling naproxen [From Naprosyn] Allergy (Verified 07/22/23 19:00) Rash tetracaine [From Cetacaine] Allergy (Verified 07/22/23 19:00) throat swelled shut venlafaxine HCl [From Effexor] Allergy (Verified 07/22/23 19:00) tongue swelling ezetimibe [From Zetia] Adverse Reaction (Severe, Verified 07/22/23 19:00) Myalgias, diarrhea mold Adverse Reaction (Severe, Verified 07/22/23 19:00) PT UNSURE OF REACTION FROM ASPERGILLUS niacin [From Niaspan Extended-Release] Adverse Reaction (Severe, Verified 07/22/23 19:00) PT UNSURE OF REACTION procainamide Adverse Reaction (Severe, Verified 07/22/23 19:00) Anaphylactic/Resp. Distress atorvastatin calcium [From Lipitor] Adverse Reaction (Intermediate, Verified 07/22/23 19:00) Mylagias rosuvastatin calcium [From Crestor] Adverse Reaction (Intermediate, Verified 07/22/23 19:00) Myalgias diphenhydramine HCl [From Benadryl] Adverse Reaction (Verified 07/22/23 19:00) Restlessness Type of Care/Length of Stay Estimated LOS: Convalescent Care Less Than 30 days Type of Care Needed: Skilled Rehab Potential: Fair Prognosis: Good Additional Orders/Day of Discharge Day of Discharge: 07/28/23 Dietary and Speech Recommendations Dietitian Recommendations/Changes: Will adjust diet to 2000 calorie controlled/consistent carbohydrate; cardiac/sodium-restricted diet; fluid restriction as needed per physician. Discharge Plan Admission Admit Date/Time: 07/22/23 22:30 Primary Reason for Your Visit: B/L LE ulcers. Subacute hyponatremia. Attending Provider: Chema Zambrano Primary Care Provider: Maya Pradhan Consulting Providers: Emmett Patten; Alfonso Jade; Stewart Dukes Instructions Additional Instructions / Restrictions: Discussed with the [facility] pharmacist. Maximum lispro insulin as per sliding scale will be 11 units per Accu-Chek therefore before meals and at bedtime, 4 times daily, maximum amount will be 44 units/day. Discharge Orders/Prescriptions Prescriptions: New linezolid 600 mg tablet 600 mg PO BID Qty: 14 0RF Rx Instructions: ok to take with low dose buspar cephalexin 500 mg capsule 500 mg PO TID Qty: 20 0RF Rx Instructions: tolerated cefazolin without issue insulin lispro 100 unit/mL Insulin Pen See Protocol subcut ACHS Qty: 0 0RF Protocol: 4. Sliding Scale Insulin High-Med Dosing Condition: 150-199 mg/dl = 2 units Condition: 200-259 mg/dl = 4 units Condition: 260-324 mg/dl = 6 units Condition: 325-374 mg/dl = 8 units Condition: 375-409 mg/dl = 10 units Condition: 410-449 mg/dl = 11 units Condition: Greater than 449 call physician Protocol Text: - Use for Total Daily Dose of Insulin 56-80 units - Patient who are insulin resistant or septic HIGH MEDIUM DOSING ALGORITHM Continued buspirone 10 mg tablet 10 mg PO TID tizanidine 2 mg capsule 2 mg PO Q8H PRN (Reason: Spasms) vitamin B complex Tablet 1 tab PO DAILY nitroglycerin 0.4 mg tablet, sublingual 0.4 mg SUBLINGUAL Q5M PRN (Reason: Angina pain) Qty: 25 3RF clopidogrel 75 mg tablet 75 mg PO DAILY pravastatin 40 mg tablet 40 mg PO DAILY metformin 1,000 MG tablet 1,000 mg PO BIDCM montelukast 10 MG tablet 10 mg PO QHS pramipexole 1 mg tablet 2 mg PO QHS Patient Comments: 1 mg PO 2 tablets by mouth at bedtime Rx Instructions: 1 mg PO 2 tablets by mouth at bedtime fluticasone propionate 50 mcg/actuation spray,suspension 1 spray INTRANASAL DAILY PRN (Reason: nasal spray) alprazolam 0.25 mg tablet 0.25 mg PO DAILY PRN (Reason: anxiety) Patient Comments: for anxiety acetaminophen 325 MG tablet 325 - 650 mg PO Q6H PRN PRN (Reason: Pain) 0RF aspirin 81 MG tablet 81 mg PO DAILY@0800 Qty: 30 0RF cholecalciferol (vitamin D3) 2,000 UNIT capsule 2,000 unit PO BID magnesium oxide 400 MG tablet 400 mg PO DAILY coenzyme Q10 100 MG capsule 100 mg PO DAILY carvedilol 12.5 mg tablet 6.25 mg PO BID Rx Instructions: must administer with a meal/food insulin NPH isoph U-100 human 100 unit/mL suspension See Rx Instructions SC BID Qty: 10 3RF Rx Instructions: 46 units in am, 42 units in evening subcut twice a day; hold if FASTING or HS glucose less than 130 mg/dl glyburide 2.5 mg tablet 5 mg PO BID albuterol sulfate [Ventolin HFA] 90 mcg/actuation HFA aerosol inhaler 2 puff INHALATION Q4H PRN (Reason: shortness of breath or wheezing) Qty: 18 6RF isosorbide mononitrate 30 mg tablet extended release 24 hr 30 mg PO DAILY Qty: 90 3RF furosemide 40 mg tablet See Rx Instructions PO .COMPLEX Qty: 270 3RF Rx Instructions: 80mg in AM and 40mg in PM; Discontinued clindamycin HCl 300 mg capsule 300 mg PO Q12H Referrals / Follow Up: Maya Pradhan DO [Primary Care Provider] - 08/03/23 11:20 am Goyo Katz DPM [Med Staff - Active Staff] - Within 1 Week (Follow-up in wound clinic.) Disposition Disposition (needs filled in before D/C Order can be placed): Detention Facility (3) Diabetes mellitus, type 2 Qualifiers: Diabetes mellitus complication status: with unspecified complications Diabetes mellitus penitentiary insulin use: with ocean transportation intermediary use Qualified Code(s): E11.8 - Type 2 diabetes mellitus with unspecified complications; Z79.4 - terminal makeup operator (current) use of insulin; Z79.4 - terminal makeup operator (current) use of insulin; Z79.4- terminal makeup operator (current) use of insulin; Z79.4 - terminal makeup operator (current) use of insulin 07/28/23 1047 <Electronically signed by Chema Zambrano DO> Cosigner Signature (if applicable): CC: Dr. Emmett Patten DO; Dr. Maya Pradhan DO; Dr. Stewart Dukes MD; Dr. Alfonso Jade MD ~ [facility] Work Phone: [phone]) 610-537111-14-2023 Progress note Author Chema Zambrano [facility] July 28, 2023 10:44am Note Date/Time July 28, 2023 8:26am [facility] Medical Records Department [address] [place] [address] Progress Note - Hospitalist 07/28/23822 MR#: [id number] Acct: [id number] Name: MALIERNESTOBLANCA Celso Rep #:[id number] : 1950 72 From: Chema Zambrano DO PCP: Dr. Maya Pradhan DO Status:ADM IN Location: [place] [address] Reason for Visit Reason for Visit: Diagnoses Type 2 diabetes mellitus with unspecified complications (07/22/23) Hypo-osmolality and hyponatremia (07/22/23) Chronic diastolic (congestive) heart failure (07/22/23) Cellulitis of right lower limb (07/22/23) senior living (current) use of insulin (07/22/23) Subjective Subjective Not sleeping well. Feels dizzy. Objective Data Objective Data Vital Signs: Vital Signs Temp Pulse Resp BP Pulse Ox O2 Del Method O2 Flow Rate 37.1 C 80 18 125/75 H 94 Room Air 2.5 07/28/23 08:00 07/28/23 08:00 07/28/23 08:00 07/28/23 08:00 07/28/23 08:00 07/28/23 08:00 07/28/23 02:00 Oxygen Flow Rate (L/min) 2.5 Oxygen Delivery Method Room Air Weight: 110.2 kg Body Mass Index (BMI) 36.9 Intake & Output: Intake and Output for Last 24 Hours 07/26/23 07/27/23 07/28/23 23:59 23:59 23:59 Intake Total 840 / 1490 2720 / 2750 60 / 60 Output Total 350 / 350 600 / 600 0 / 0 Balance 490 / 1140 2120 / 2150 60 / 60 Lab / Micro Data 07/26/23 05:48 07/28/23 05:39 Labs: Laboratory Results - last 24 hr 07/26/23 20:59: POC Glucose 38 L* 07/26/23 21:14: POC Glucose 58 L 07/26/23 21:27: POC Glucose 61 L 07/27/23 08:08: POC Glucose 109 H 07/27/23 11:19: POC Glucose 106 07/27/23 15:52: POC Glucose 182 H 07/27/23 21:33: POC Glucose 187 H 07/28/23 05:39: Sodium 130 L, Potassium 3.8, Chloride 86 L, Carbon Dioxide 38.0 H, Anion Gap 6, BUN 14, Creatinine 0.87, Estim Creat Clear Calc 75.34, Est GFR (MDRD) Af Amer 111, Est GFR (MDRD) Non-Af 92, BUN/Creatinine Ratio 16.1, [id number] H, Calcium 8.5 Micro: Microbiology 07/23/23 09:00 Wound - Leg, Right Gram Stain - Final 07/23/23 09:00 Wound - Leg, Right Wound Culture - Final Serratia marcescens Coag Negative Staph Physical Exam Const alert Constitutional Narrative: Non toxic. dozing off. Assessment & Plan Assessment/Plan (1) Cellulitis of leg, right: PLAN: Wound culture from 07/09 shows Enterococcus MSSA and Kluyvera. Antibioticchanged to vancomycin and cefazolin. 07/24: Repeat preliminary wound culture shows gram-negative saloni 2+, gram- positive organism 1+. Discussed with ID. Plan for discharge home on 1 week of linezolid 600 mg twice daily and Keflex 500 mg 3 times daily 07/25:Wound culture shows Serratia marcescens 2+ and: Negative staph 1+. Serratia marcescens pansensitive. Coagulase-negative might be skin contaminant. Discussed with ID and he said he will still give him both antibiotics for 1 week as he might have infection from previous infection. IV antibiotics vancomycin and cefazolin discontinued and started on Keflex and linezolid 07/26: Pending for pre-CERT. Advised to follow-up in wound clinic in [address] Goyo Katz's. Continue abx through the . (2) Acute hyponatremia: PLAN: Subacute/chronic hypervolemic hyponatremia of 123 mmol/L present on admission with lymphedema and varicose vein: Patient on Lasix and continued. Bilateral Satish wrap bandage. Patient had echo in March 2023 which was technicallydifficult reported EF 55%. Calcified aortic root. LA mildly enlarged. Normal valves. Urine osmolality 217. 07/24: Repeat sodium is 128 does not show improvement.On furosemide 80 mg a.m. and 40 mg p.o. oral daily. Oral furosemide changed to IV 40 mg twice daily. 07/25: Continue diuretic. Sodium is gradually improving. Today sodium 130. Furosemide IV changed to oral, furosemide 80 mg a.m. and 40 mg p.m. daily. (3) Diabetes mellitus, type 2: QUALIFIERS: Diabetes mellitus complication status: with unspecified complications Diabetes mellitus ocean transportation intermediary insulin use: with ocean transportation intermediary use Qualified Code(s): E11.8 - Type 2 diabetes mellitus with unspecified complications; Z79.4 - terminal makeup operator (current) use of insulin; Z79.4 - terminal makeup operator (current) use of insulin; Z79.4 - terminal makeup operator (current) use of insulin; Z79.4 - senior living (current) use of insulin PLAN: Plan Chronic conditions: * Diabetes mellitus type 2 uncontrolled with hyperglycemia - ADA diet. Fingerstick blood sugars before every meal and at bedtime plus sliding scale insulin. hemoglobin A1c 9.4 07/26: Hypoglycemia in the morning BMP and Accu- Chek. Evening dose of NPH insulin decreased. Hold scheduled NPH if glucose less than 130. Most recent 14. Patient denies symptoms of hypoglycemia. Discontinue glyburide 5 mg twice daily. * Obesity with BMI of 38.8 on admission with obstructive sleep apnea Weight loss will be recommended. * Essential hypertension - Continue home medications as previous. Plus give as needed IV hydralazine for systolic blood pressure greater than 160 mmHg. * Hyperlipidemia - Resume simvastatin. * History of coronary artery disease with STEMI in 2017 requiring stent placement with subsequent chronic diastolic CHF - Noted. Continue home regimen. * Restless leg syndrome - Continue home regimen as previous. DVT prophylaxis - Lovenox 40 mg subcu daily. Disposition: to SNF. 07/28/23 1044 <Electronically signed by Chema Zambrano DO> Cosigner Signature (if applicable): CC: ~ Signed [facility] Work Phone: 1(194) 366-865711-13-2023 Progress note Author [facility] July 27, 2023 5:17pm Note Date/Time July 27, 2023 9:55am [facility] Medical Records Department [address] [place] [address] Progress Note - Hospitalist 07/27/23 0949 MR#: [id number] Acct: [id number] Name: MALIERNESTOBLANCA Celso Rep #:[id number] : 1950 72 From: Chema Zambrano DO PCP: Dr. Maya Pradhan, DO Status:ADM IN Location: [place] [address]- Subjective Subjective feels well. Objective Data Objective Data Vital Signs: Vital Signs Temp Pulse Resp BP Pulse Ox O2 Del Method O2 Flow Rate 36.6 C 78 18 112/65 97 Nasal Cannula 2.5 07/27/23 04:45 07/27/23 04:45 07/27/23 04:45 07/27/23 04:45 07/27/23 04:45 07/27/23 04:45 07/27/23 04:45 Oxygen Flow Rate (L/min) 2.5 Oxygen Delivery Method Nasal Cannula Weight: 110.2 kg Body Mass Index (BMI) 36.9 Intake & Output: Intake and Output for Last 24 Hours 07/25/23 07/26/23 07/27/23 23:59 23:59 23:59 Intake Total 1755 / 1755 840 / 1490 1370 / 1370 Output Total 1300 / 1300 350 / 350 Balance 455 / 455 490 / 1140 1370 / 1370 Lab / Micro Data 07/26/23 05:48 07/27/23 05:56 Labs: Laboratory Results - last 24 hr 07/26/23 09:01: POC Glucose 130 H 07/26/23 12:05: POC Glucose 114 H 07/26/23 16:54: POC Glucose 147 H 07/26/23 21:48: POC Glucose 76 07/26/23 22:39: POC Glucose 68 L 07/26/23 23:07: POC Glucose 127 H 07/27/23 05:56: Sodium 131 L, Potassium 3.5, Chloride 88 L, Carbon Dioxide 39.0 H, Anion Gap 4 L, BUN 12, Creatinine 0.80, Estim Creat Clear Calc 81.94, Est GFR(MDRD) Af Amer 122, Est GFR (MDRD) Non-Af 101, BUN/Creatinine Ratio 15.0, Glucose 70 L, Calcium 8.7 07/27/23 06:29: POC Glucose 67 L 07/27/23 08:08: POC Glucose 109 H Micro: Microbiology 07/23/23 09:00 Wound - Leg, Right Gram Stain - Final 07/23/23 09:00 Wound - Leg, Right Wound Culture - Final Serratia marcescens Coag Negative Staph Radiography Diagnostic Testing: Radiology Impression Brain CT 07/26/23 23:12 IMPRESSION: No acute intracranial abnormality. Mild stable chronic changes. Electronically Signed: Nathaly Wilkins MD at 1:14 EST , Physical Exam Const alert and no apparent distress HEENT head/scalp atraumatic and moist oral mucous membranes Psych affect normal Assessment & Plan Assessment/Plan (1) Cellulitis of leg, right: PLAN: Wound culture from 07/09 shows Enterococcus MSSA and Kluyvera. Antibioticchanged to vancomycin and cefazolin. 07/24: Repeat preliminary wound culture shows gram-negative saloni 2+, gram- positive organism 1+. Discussed with ID. Plan for discharge home on 1 week of linezolid 600 mg twice daily and Keflex 500 mg 3 times daily 07/25:Wound culture shows Serratia marcescens 2+ and: Negative staph 1+. Serratia marcescens pansensitive. Coagulase-negative might be skin contaminant. Discussed with ID and he said he will still give him both antibiotics for 1 week as he might have infection from previous infection. IV antibiotics vancomycin and cefazolin discontinued and started on Keflex and linezolid as perID recommendation. 07/26: Pending for pre-CERT. Advised to follow-up in wound clinic in [address] Goyo Katz's. (2) Acute hyponatremia: PLAN: Subacute/chronic hypervolemic hyponatremia of 123 mmol/L present on admission with lymphedema and varicose vein: Patient on Lasix and continued. Bilateral Satish wrap bandage. Patient had echo in March 2023 which was technicallydifficult reported EF 55%. Calcified aortic root. LA mildly enlarged. Normal valves. Urine osmolality 217. 07/24: Repeat sodium is 128 does not show improvement.On furosemide 80 mg a.m. and 40 mg p.o. oral daily. Oral furosemide changed to IV 40 mg twice daily. 07/25: Continue diuretic. Sodium is gradually improving. Today sodium 130. Furosemide IV changed to oral, furosemide 80 mg a.m. and 40 mg p.m. daily. (3) Diabetes mellitus, type 2: QUALIFIERS: Diabetes mellitus complication status: with unspecified complications Diabetes mellitus ocean transportation intermediary insulin use: with penitentiary use Qualified Code(s): E11.8 - Type 2 diabetes mellitus with unspecified complications; Z79.4 - terminal makeup operator (current) use of insulin; Z79.4 - senior living (current) use of insulin; Z79.4 - senior living (current) use of insulin; Z79.4 - terminal makeup operator (current) use of insulin PLAN: Plan Chronic conditions: * Diabetes mellitus type 2 uncontrolled with hyperglycemia - ADA diet. Fingerstick blood sugars before every meal and at bedtime plus sliding scale insulin. hemoglobin A1c 9.4 07/26: Hypoglycemia in the morning BMP and Accu- Chek. Evening dose of NPH insulin decreased. Hold scheduled NPH if glucose less than 130. Most recent 14. Patient denies symptoms of hypoglycemia. Discontinue glyburide 5 mg twice daily. * Obesity with BMI of 38.8 on admission with obstructive sleep apnea Weight loss will be recommended. * Essential hypertension - Continue home medications as previous. Plus give as needed IV hydralazine for systolic blood pressure greater than 160 mmHg. * Hyperlipidemia - Resume simvastatin. * History of coronary artery disease with STEMI in 2017 requiring stent placement with subsequent chronic diastolic CHF - Noted. Continue home regimen. * Restless leg syndrome - Continue home regimen as previous. DVT prophylaxis - Lovenox 40 mg subcu daily. Disposition: to SNF. Charges/Coding Visit Charges Inpatient E&M: 92534 Subs Hosp L1 07/27/23 1713 <Electronically signed by Chema Zambrano DO> Cosigner Signature (if applicable): CC: ~ Signed [facility] Work Phone: 1(148) 309-766011-12-2023 Progress note Author Stewart Dukes [facility] July 26, 2023 2:47pm Note Date/Time July 26, 2023 2:47pm [facility] Medical Records Department [address] [place] [address] Progress Note - Hospitalist 07/26/23 1441 MR#: [id number] Acct: [id number] Name: JAIROBLANCA E Rep #:[id number] : 1950 72 From: Stewart Jacinto PCP: Dr. Maya Pradhan DO Status:ADM IN Location: [place] [address] Reason for Visit Reason for Visit: Diagnoses Type 2 diabetes mellitus with unspecified complications (07/22/23) Hypo-osmolality and hyponatremia (07/22/23) Chronic diastolic (congestive) heart failure (07/22/23) Cellulitis of right lower limb (07/22/23) terminal makeup operator (current) use of insulin (07/22/23) Objective Data Objective Data Vital Signs: Vital Signs Temp Pulse Resp BP Pulse Ox O2 Del Method O2 Flow Rate 98.6 F 88 18 142/69 H 95 Nasal Cannula 2.5 07/26/23 09:05 07/26/23 09:05 07/26/23 09:05 07/26/23 09:05 07/26/23 09:05 07/26/23 09:10 07/26/23 09:10 Oxygen Flow Rate (L/min) 2.5 Oxygen Delivery Method Nasal Cannula Weight: 242 lb 15.19 oz Body Mass Index (BMI) 36.9 Intake & Output: Intake and Output for Last 24 Hours 07/24/23 07/25/23 07/26/23 23:59 23:59 23:59 Intake Total 1690 / 1690 1755 / 1755 420 / 420 Output Total 1600 / 1600 1300 / 1300 350 / 350 Balance 90 / 90 455 / 455 70 / 70 Lab / Micro Data 07/26/23 05:48 07/26/23 05:48 Labs: Laboratory Results - last 24 hr 07/25/23 03:46: POC Glucose 45 L 07/25/23 03:48: POC Glucose 47 L 07/25/23 16:48: POC Glucose 168 H 07/25/23 19:40: Vancomycin Trough 16.4 H 07/25/23 21:27: POC Glucose 265 H 07/26/23 05:48: WBC 9.0, RBC 4.62, Hgb 11.8 L, Hct 39.7 L, MCV 85.9, MCH 25.5 L,MCHC 29.7 L, RDW Std Deviation 47.5 H, RDW Coeff of Jeanette 15.1 H, Plt Count 275, MPV 9.4, Immature Gran % (Auto) 0.300, Neut % (Auto) 66.4, Lymph % (Auto) 12.7 L, [place] % (Auto) 17.2 H, Eos % (Auto) 3.1, Baso % (Auto) 0.3, Absolute Neuts (auto) 5.9, Absolute Lymphs (auto) 1.14, Nucleated RBC % 0, Differential CommentSCANNED, Sodium 131 L, Potassium 3.9, Chloride 91 L, Carbon Dioxide 40.0 H, Anion Gap 0 L, BUN 16, Creatinine 0.98, Estim Creat Clear Calc 66.89, Est GFR (MDRD) Af Amer 96, Est GFR (MDRD) Non-Af 80, BUN/Creatinine Ratio 16.3, Glucose 49 L, Calcium 8.7 07/26/23 09:01: POC Glucose 130 H 07/26/23 12:05: POC Glucose 114 H Micro: Microbiology 07/23/23 09:00 Wound - Leg, Right Gram Stain - Final 07/23/23 09:00 Wound - Leg, Right Wound Culture - Final Serratia marcescens Coag Negative Staph Physical Exam Narrative Patient is still feels like he can go home but his daughter has concerned that patient will not be able to climb up few steps which are high. Waiting for pre- CERT. Yesterday patient was discharged. Episodes of hypoglycemia on 07/25, 45 and 47 and today 49 and 130 Patient was started on antibiotic, clindamycin with PCP on 13 July. Previous culture positive of MRSA. Uses oxygen during the night and on exertion. Physical exam General: Alert, Oriented x3, Cooperative, BMI 36.9 KG for his questions which HEENT: Atraumatic, PERRLA, EOMI, Normocephalic Oral: Oral mucosa dry. No Gingival or Mucosal Lesions/ Ulcerations Neck: Supple, No JVD, Negative Carotid Bruits Lungs: Air entry diminished in bilateral lung bases. No crepitation/rhonchi on2.5 L/min on baseline requirement Cardiovascular: Regular rate, Regular Rhythm, Normal S1, Normal S2, soft systolic murmur right second ICS Abdomen: Bowel Sounds Present, Soft, Non Tender, mild distention. : No renal angle tenderness. No suprapubic tenderness. Extremities: No edema, Capillary Refill Less than 3 Seconds Skin: Multiple superficial ulcer over legs, mainly over the right leg. Healing has been more than 80 to 90%. Musculoskeletal: No Tenderness to Palpation of Joints or Extremities. ROM mild restriction due to arthritis. Neurological: Cranial nerves II-XII grossly intact, DTR 2+/4. No acute focal neurological deficit. Psych/Mental Status: Normal Affect, Appropriate. Assessment & Plan Assessment/Plan (1) Cellulitis of leg, right: (2) Acute hyponatremia: (3) Diabetes mellitus, type 2: QUALIFIERS: Diabetes mellitus complication status: with unspecified complications Diabetes mellitus ocean transportation intermediary insulin use: with penitentiary use Qualified Code(s): E11.8 - Type 2 diabetes mellitus with unspecified complications; Z79.4 - terminal makeup operator (current) use of insulin; Z79.4 - terminal makeup operator (current) use of insulin; Z79.4 - terminal makeup operator (current) use of insulin; Z79.4 - senior living (current) use of insulin PLAN: Plan Patient was admitted with 2 weeks history of progressive right lower extremity swelling pain redness and drainage. Patient stated he was not taking care of himself with recent loss of his . 1. Lower extremity cellulitis with multidrug-resistant organisms refractory to treatment in the setting of chronic venous stasis and numerous antibiotic allergies - Admit to PCU. Initially, the patient was started on give IV vancomycin and IV aztreonam given patient's multiple antibiotic allergies and failure of his outpatient clindamycin. ID consulted. Wound culture from 07/09 shows Enterococcus MSSA and Kluyvera. Antibiotic changed to vancomycin and cefazolin. Patient has history of dyspnea with penicillin but tolerated ceftriaxone in 2018. Discussed with the wound nurse. 07/24: Repeat preliminary wound culture shows gram-negative saloni 2+, gram- positive organism 1+. Discussed with ID. Plan for discharge home on 1 week of linezolid 600 mg twice daily and Keflex 500 mg 3 times daily 07/25:Wound culture shows Serratia marcescens 2+ and: Negative staph 1+. Serratia marcescens pansensitive. Coagulase-negative might be skin contaminant. Discussed with ID and he said he will still give him both antibiotics for 1 week as he might have infection from previous infection. IV antibiotics vancomycin and cefazolin discontinued and started on Keflex and linezolid as perID recommendation. 07/26: Pending for pre-CERT. Advised to follow-up in wound clinic in [address] Goyo Katz's. 2. Subacute/chronic hypervolemic hyponatremia of 123 mmol/L present on admission with lymphedema and varicose vein: Patient on Lasix and continued. Bilateral Satish wrap bandage. Patient had echo in March 2023 which was technicallydifficult reported EF 55%. Calcified aortic root. LA mildly enlarged. Normal valves. Urine osmolality 217. Patient did he saw vascular surgeon who said he has varicose vein with possibleincompetent deep venous valve and there is plan for venogram in future. Patientand her daughter decided he does not have peripheral arterial disease. 07/24: Repeat sodium is 128 does not show improvement.On furosemide 80 mg a.m. and 40 mg p.o. oral daily. Oral furosemide changed to IV 40 mg twice daily. 07/25: Continue diuretic. Sodium is gradually improving. Today sodium 130. Furosemide IV changed to oral, furosemide 80 mg a.m. and 40 mg p.m. daily. 3. Diabetes mellitus type 2 uncontrolled with hyperglycemia - ADA diet. Fingerstick blood sugars before every meal and at bedtime plus sliding scale insulin. hemoglobin A1c 9.4 07/26: Hypoglycemia in the morning BMP and Accu-Chek. Evening dose of NPH insulin decreased. Hold scheduled NPH if glucose less than 130. Most recent 14. Patient denies symptoms of hypoglycemia. Discontinue glyburide 5 mg twice daily. 4. Obesity with BMI of 38.8 on admission with obstructive sleep apnea Weight loss will be recommended. 5. Essential hypertension - Continue home medications as previous. Plus give as needed IV hydralazine for systolic blood pressure greater than 160 mmHg. 6. Hyperlipidemia - Resume simvastatin. 7. History of coronary artery disease with STEMI in 2017 requiring stent placement with subsequent chronic diastolic CHF - Noted. Continue home regimen. 8. Restless leg syndrome - Continue home regimen as previous. 9. DVT prophylaxis - Lovenox 40 mg subcu daily. Charges/Coding Visit Charges Inpatient E&M: 99569 Subs Hosp L2 07/26/23 1447 <Electronically signed by Stewart Dukes MD> Cosigner Signature (if applicable): CC: ~ Signed [facility] Work Phone: 1(780) 869-458211-11-2023 Progress note Author Stewart Dukes [facility] July 25, 2023 12:46pm Note Date/Time July 25, 2023 12:43pm [facility] Medical Records Department [address] [place] [address] Progress Note - Hospitalist 07/25/23 1237 MR#: [id number] Acct: [id number] Name: SAMANTHAJONOBLANCA E Rep #:[id number] : 1950 72 From: Stewart Jacinto PCP: Dr. Maya Pradhan, DO Status:ADM IN Location: [place] [address] Reason for Visit Reason for Visit: Diagnoses Type 2 diabetes mellitus with unspecified complications (07/22/23) Hypo-osmolality and hyponatremia (07/22/23) Chronic diastolic (congestive) heart failure (07/22/23) Cellulitis of right lower limb (07/22/23) terminal makeup operator (current) use of insulin (07/22/23) Objective Data Objective Data Vital Signs: Vital Signs Temp Pulse Resp BP Pulse Ox O2 Del Method O2 Flow Rate 100.0 F H 96 16 133/67 H 92 Nasal Cannula 2.5 07/25/23 08:32 07/25/23 08:32 07/25/23 08:32 07/25/23 08:32 07/25/23 11:22 07/25/23 11:22 07/25/23 11:22 Oxygen Flow Rate (L/min) 2.5 Oxygen Delivery Method Nasal Cannula Weight: 242 lb 15.19 oz Body Mass Index (BMI) 36.9 Intake & Output: Intake and Output for Last 24 Hours 07/23/23 07/24/23 07/25/23 23:59 23:59 23:59 Intake Total 1915 / 1915 1690 / 1690 795 / 795 Output Total 2150 / 2150 1600 / 1600 Balance -235 / -235 90 / 90 795 / 795 Lab / Micro Data 07/25/23 06:11 07/25/23 06:11 Labs: Laboratory Results - last 24 hr 07/24/23 16:57: POC Glucose 201 H 07/24/23 21:38: POC Glucose 126 H 07/25/23 04:22: POC Glucose 75 07/25/23 06:11: WBC 8.8, RBC 4.73, Hgb 12.1 L, Hct 41.5, MCV 87.7, MCH 25.6 L, MCHC 29.2 L, RDW Std Deviation 48.5 H, RDW Coeff of Jeanette 15.1 H, Plt Count 237, MPV 9.0, Immature Gran % (Auto) 0.300, Neut % (Auto) 68.9, Lymph % (Auto) 13.8 L, [place] % (Auto) 15.1 H, Eos % (Auto) 1.7, Baso % (Auto) 0.2, Absolute Neuts (auto) 6.1, Absolute Lymphs (auto) 1.21, Nucleated RBC % 0, Sodium 130 L, Potassium 4.3, Chloride 92 L, Carbon Dioxide 36.0 H, Anion Gap 2 L, BUN 17, Creatinine 1.13, Estim Creat Clear Calc 58.01, Est GFR (MDRD) Af Amer 82, Est GFR (MDRD) Non-Af 68, BUN/Creatinine Ratio 15.0, Glucose 112 H, Calcium 8.3 L 07/25/23 06:29: POC Glucose 106 07/25/23 11:19: POC Glucose 172 H Micro: Microbiology 07/23/23 09:00 Wound - Leg, Right Gram Stain - Final 07/23/23 09:00 Wound - Leg, Right Wound Culture - Final Serratia marcescens Coag Negative Staph Physical Exam Narrative Earlier patient said he wants to go home but after talking to the doctor he [facility]. Therefore discharge canceled. Wound is healing well. Patient was started on antibiotic, clindamycin with PCP on 13 July. Previous culture positive of MRSA. Uses oxygen during the night and on exertion. Physical exam General: Alert, Oriented x3, Cooperative, BMI 36.9 KG for his questions which HEENT: Atraumatic, PERRLA, EOMI, Normocephalic Oral: Oral mucosa dry. No Gingival or Mucosal Lesions/ Ulcerations Neck: Supple, No JVD, Negative Carotid Bruits Lungs: Air entry diminished in bilateral lung bases. No crepitation/rhonchi on2.5 L/min on baseline requirement Cardiovascular: Regular rate, Regular Rhythm, Normal S1, Normal S2, soft systolic murmur right second ICS Abdomen: Bowel Sounds Present, Soft, Non Tender, mild distention. : No renal angle tenderness. No suprapubic tenderness. Extremities: No edema, Capillary Refill Less than 3 Seconds Skin: Multiple superficial ulcer over legs, mainly over the right leg. Healing has been more than 80 to 90%. Musculoskeletal: No Tenderness to Palpation of Joints or Extremities. ROM mild restriction due to arthritis. Neurological: Cranial nerves II-XII grossly intact, DTR 2+/4. No acute focal neurological deficit. Psych/Mental Status: Normal Affect, Appropriate. Assessment & Plan Assessment/Plan (1) Cellulitis of leg, right: (2) Acute hyponatremia: (3) Diabetes mellitus, type 2: QUALIFIERS: Diabetes mellitus complication status: with unspecified complications Diabetes mellitus penitentiary insulin use: with penitentiary use Qualified Code(s): E11.8 - Type 2 diabetes mellitus with unspecified complications; Z79.4 - senior living (current) use of insulin; Z79.4 - senior living (current) use of insulin; Z79.4 - senior living (current) use of insulin; Z79.4 - senior living (current) use of insulin PLAN: Plan Patient was admitted with 2 weeks history of progressive right lower extremity swelling pain redness and drainage. Patient stated he was not taking care of himself with recent loss of his . 1. Lower extremity cellulitis with multidrug-resistant organisms refractory to treatment in the setting of chronic venous stasis and numerous antibiotic allergies - Admit to PCU. Initially, the patient was started on give IV vancomycin and IV aztreonam given patient's multiple antibiotic allergies and failure of his outpatient clindamycin. ID consulted. Wound culture from 07/09 shows Enterococcus MSSA and Kluyvera. Antibiotic changed to vancomycin and cefazolin. Patient has history of dyspnea with penicillin but tolerated ceftriaxone in 2018. Discussed with the wound nurse. 07/24: Repeat preliminary wound culture shows gram-negative saloni 2+, gram- positive organism 1+. Discussed with ID. Plan for discharge home on 1 week of linezolid 600 mg twice daily and Keflex 500 mg 3 times daily 07/25:Wound culture shows Serratia marcescens 2+ and: Negative staph 1+. Serratia marcescens pansensitive. Coagulase-negative might be skin contaminant. Discussed with ID and he said he will still give him both antibiotics for 1 week as he might have infection from previous infection. IV antibiotics vancomycin and cefazolin discontinued and started on Keflex and linezolid as perID recommendation. Advised to follow-up in wound clinic in [address] Goyo Katz's. 2. Subacute/chronic hypervolemic hyponatremia of 123 mmol/L present on admission with lymphedema and varicose vein: Patient on Lasix and continued. Bilateral Satish wrap bandage. Patient had echo in March 2023 which was technicallydifficult reported EF 55%. Calcified aortic root. LA mildly enlarged. Normal valves. Urine osmolality 217. Patient did he saw vascular surgeon who said he has varicose vein with possibleincompetent deep venous valve and there is plan for venogram in future. Patientand her daughter decided he does not have peripheral arterial disease. 07/24: Repeat sodium is 128 does not show improvement.On furosemide 80 mg a.m. and 40 mg p.o. oral daily. Oral furosemide changed to IV 40 mg twice daily. 07/25: Continue diuretic. Sodium is gradually improving. Today sodium 130. Furosemide IV changed to oral, furosemide 80 mg a.m. and 40 mg p.m. daily. 3. Diabetes mellitus type 2 uncontrolled with hyperglycemia - ADA diet. Fingerstick blood sugars before every meal and at bedtime plus sliding scale insulin. hemoglobin A1c 9.4 11/renal: Glucose is controlled. Continue NPH insulin scheduled and Accu-Chek before meals and at bedtime with coverage of short acting Humalog insulin as per sliding scale 4. Obesity with BMI of 38.8 on admission with obstructive sleep apnea Weight loss will be recommended. 5. Essential hypertension - Continue home medications as previous. Plus give as needed IV hydralazine for systolic blood pressure greater than 160 mmHg. 6. Hyperlipidemia - Resume simvastatin. 7. History of coronary artery disease with STEMI in 2017 requiring stent placement with subsequent chronic diastolic CHF - Noted. Continue home regimen. 8. Restless leg syndrome - Continue home regimen as previous. 9. DVT prophylaxis - Lovenox 40 mg subcu daily. Charges/Coding Addendum Addendum: Please cancel the billing charge of discharge today. Visit Charges Inpatient E&M: 28341 Subs Hosp L2 07/25/23 1246 <Electronically signed by Stewart Dukes MD> Cosigner Signature (if applicable): CC: ~ Signed [facility] Work Phone: 1(105) 290-144511-11-2023 Discharge summary Author Stewart Dukes [facility] July 25, 2023 11:25am Note Date/Time July 25, 2023 11:17am [facility] Medical Records Department [address] [place] [address] Discharge Summary 07/25/23 1117 MR#: [id number] Acct: [id number] Name: BLANCA GILL Celso Rep #:[id number] : 1950 72 From: Stewart Jacinto PCP: Dr. Maya Pradhan, DO Status:ADM IN Location: [facility] [id number] Providers Date of Admission: 07/22/23 Date of Discharge: 07/25/23 Primary Care Physician: Dr. 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 Routine Comment: Reason for Consult:: Nonhealing right lower extremity cellulitis with chronicvenous s 07/23/23 01:04 Consult: Infectious Disease Routine Consulting Provider: Alfonso Jade Reason for Consult: Worsening right lower extremity cellulitis With chronic venous stasis EMERGENT Consult: No MD Notified: Yes Date Notified: 07/23/23 Time Notified: 07:55 Method of Notification: Text Reason For Visit: RIGHT LOWER EXTREMITY CELLULITIS AND HYPONATREMIA Diagnosis Discharge Diagnosis (1) Cellulitis of leg, right: Status: Acute Code(s): L03.115 - Cellulitis of right lower limb (2) Acute hyponatremia: Status: Acute Code(s): E87.1 - Hypo-osmolality and hyponatremia (3) Diabetes mellitus, type 2: Status: Chronic Code(s): E11.9 - Type 2 diabetes mellitus without complications Qualifiers: Diabetes mellitus complication status: with unspecified complications Diabetes mellitus ocean transportation intermediary insulin use: with ocean transportation intermediary use Qualified Code(s): E11.8 - Type 2 diabetes mellitus with unspecified complications; Z79.4 - senior living (current) use of insulin; Z79.4 - terminal makeup operator (current) use of insulin; Z79.4- senior living (current) use of insulin; Z79.4 - senior living (current) use of insulin Plan Patient was admitted with 2 weeks history of progressive right lower extremity swelling pain redness and drainage. Patient stated he was not taking care of himself with recent loss of his . 1. Lower extremity cellulitis with multidrug-resistant organisms refractory to treatment in the setting of chronic venous stasis and numerous antibiotic allergies - Admit to PCU. Initially, the patient was started on give IV vancomycin and IV aztreonam given patient's multiple antibiotic allergies and failure of his outpatient clindamycin. ID consulted. Wound culture from 07/09 shows Enterococcus MSSA and Kluyvera. Antibiotic changed to vancomycin and cefazolin. Patient has history of dyspnea with penicillin but tolerated ceftriaxone in 2019. Discussed with the wound nurse. 07/24: Repeat preliminary wound culture shows gram-negative saloni 2+, gram- positive organism 1+. Discussed with ID. Plan for discharge home on 1 week of linezolid 600 mg twice daily and Keflex 500 mg 3 times daily 07/25:Wound culture shows Serratia marcescens 2+ and: Negative staph 1+. Serratia marcescens pansensitive. Coagulase-negative might be skin contaminant. Discussed with ID and he said he will still give him both antibiotics for 1 week as he might have infection from previous infection. Advised to follow-up in wound clinic in [address] Goyo Katz's. 2. Subacute/chronic hypervolemic hyponatremia of 123 mmol/L present on admission with lymphedema and varicose vein: Patient on Lasix and continued. Bilateral Satish wrap bandage. Patient had echo in March 2023 which was technicallydifficult reported EF 55%. Calcified aortic root. LA mildly enlarged. Normal valves. Urine osmolality 217. Patient did he saw vascular surgeon who said he has varicose vein with possibleincompetent deep venous valve and there is plan for venogram in future. Patientand her daughter decided he does not have peripheral arterial disease. 07/24: Repeat sodium is 128 does not show improvement.On furosemide 80 mg a.m. and 40 mg p.o. oral daily. Oral furosemide changed to IV 40 mg twice daily. 07/25: Continue diuretic. Sodium is gradually improving. Today sodium 130. 3. Diabetes mellitus type 2 uncontrolled with hyperglycemia - ADA diet. Fingerstick blood sugars before every meal and at bedtime plus sliding scale insulin. hemoglobin A1c 9.4 11/renal: Glucose is controlled. Continue NPH insulin scheduled and Accu-Chek before meals and at bedtime with coverage of short acting Humalog insulin as per sliding scale 4. Obesity with BMI of 38.8 on admission with obstructive sleep apnea Weight loss will be recommended. Check TSH. 5. Essential hypertension - Continue home medications as previous. Plus give as needed IV hydralazine for systolic blood pressure greater than 160 mmHg. 6. Hyperlipidemia - Resume simvastatin. 7. History of coronary artery disease with STEMI in 2017 requiring stent placement with subsequent chronic diastolic CHF - Noted. Continue home regimen. 8. Restless leg syndrome - Continue home regimen as previous. 9. DVT prophylaxis - Lovenox 40 mg subcu daily. Medications at Discharge Home Medications metformin 1,000 mg tablet 1,000 mg PO BIDCM diabetes 01/17/16 montelukast 10 mg tablet 10 mg PO QHS allergies 01/17/16 acetaminophen 325 mg tablet 325 - 650 mg (1 - 2 x 325 mg) PO Q6H PRN PRN Pain 07/14/17 aspirin 81 mg tablet,delayed release 81 mg PO DAILY@0800 #30 tabs 07/14/17 buspirone 10 mg tablet 10 mg PO TID Anxiety 05/07/18 pramipexole 1 mg tablet 2 mg PO QHS headache 05/07/18 cholecalciferol (vitamin D3) 50 mcg (2,000 unit) capsule 2,000 unit PO BID supplement 12/08/18 coenzyme Q10 100 mg capsule 100 mg PO DAILY supplement 12/08/18 magnesium oxide 400 mg PO DAILY supplement 12/08/18 fluticasone propionate 50 mcg/actuation nasal spray,suspension 1 spray intranasal DAILY PRN nasal spray 04/05/20 alprazolam 0.25 mg tablet 0.25 mg PO DAILY PRN anxiety 10/12/20 glyburide 2.5 mg tablet 5 mg PO BID diabetes 10/12/20 tizanidine 2 mg capsule 2 mg PO Q8H PRN Spasms 03/27/21 nitroglycerin 0.4 mg sublingual tablet 0.4 mg sublingual Q5M PRN Angina pain #25tabs 11/29/21 vitamin B complex 1 tab PO DAILY 03/14/22 albuterol sulfate 90 mcg/actuation aerosol inhaler (Ventolin HFA) 2 puff inhalation Q4H PRN shortness of breath or wheezing #18 grams 09/16/22 clopidogrel 75 mg tablet 75 mg PO DAILY 04/28/23 pravastatin 40 mg tablet 40 mg PO DAILY 04/28/23 isosorbide mononitrate 30 mg tablet,extended release 24 hr 30 mg PO DAILY #90 tabs 07/05/23 furosemide 40 mg tablet See Rx Instructions PO .COMPLEX #270 tabs 07/13/23 carvedilol 12.5 mg tablet 6.25 mg PO BID This is a dose increase 07/22/23 cephalexin 500 mg capsule 500 mg PO TID #20 caps 07/24/23 linezolid 600 mg tablet 600 mg PO BID #14 tabs 07/24/23 insulin NPH isoph U-100 human 100 unit/mL subcutaneous suspension See Rx Instructions subcut BID diabetes #10 mL 07/25/23 insulin lispro 100 unit/mL subcutaneous pen (Humalog KwikPen (U-100) Insulin) See Protocol subcut ACHS & 3AM #15 mL 07/25/23 Physical Exam Narrative Patient was started on antibiotic, clindamycin with PCP on 13 July. He is on vancomycin. Previous culture positive of MRSA. Uses oxygen during the nightand on exertion. Legs looks much better. Patient is willing to go home and follow-up in the wound clinic. Physical exam General: Alert, Oriented x3, Cooperative, BMI 36.9 KG for his questions which HEENT: Atraumatic, PERRLA, EOMI, Normocephalic Oral: Oral mucosa dry. No Gingival or Mucosal Lesions/ Ulcerations Neck: Supple, No JVD, Negative Carotid Bruits Lungs: Air entry diminished in bilateral lung bases. No crepitation/rhonchi on2.5 L/min on baseline requirement Cardiovascular: Regular rate, Regular Rhythm, Normal S1, Normal S2, soft systolic murmur right second ICS Abdomen: Bowel Sounds Present, Soft, Non Tender, mild distention. : No renal angle tenderness. No suprapubic tenderness. Extremities: No edema, Capillary Refill Less than 3 Seconds Skin: Multiple superficial ulcer over legs, mainly over the right leg. Healing has been more than 80 to 90%. Musculoskeletal: No Tenderness to Palpation of Joints or Extremities. ROM mild restriction due to arthritis. Neurological: Cranial nerves II-XII grossly intact, DTR 2+/4. No acute focal neurological deficit. Psych/Mental Status: Normal Affect, Appropriate. Weight / BMI Weight Weight: 242 lb 15.19 oz Body Mass Index (BMI) 36.9 ABG / Lab / Microbiology Data 07/25/23 06:11 07/25/23 06:11 Laboratory: Laboratory Results - last 24 hr 07/24/23 12:03: POC Glucose 162 H 07/24/23 16:57: POC Glucose 201 H 07/24/23 21:38: POC Glucose 126 H 07/25/23 04:22: POC Glucose 75 07/25/23 06:11: WBC 8.8, RBC 4.73, Hgb 12.1 L, Hct 41.5, MCV 87.7, MCH 25.6 L, MCHC 29.2 L, RDW Std Deviation 48.5 H, RDW Coeff of Jeanette 15.1 H, Plt Count 237, MPV 9.0, Immature Gran % (Auto) 0.300, Neut % (Auto) 68.9, Lymph % (Auto) 13.8 L, [place] % (Auto) 15.1 H, Eos % (Auto) 1.7, Baso % (Auto) 0.2, Absolute Neuts (auto) 6.1, Absolute Lymphs (auto) 1.21, Nucleated RBC % 0, Sodium 130 L, Potassium 4.3, Chloride 92 L, Carbon Dioxide 36.0 H, Anion Gap 2 L, BUN 17, Creatinine 1.13, Estim Creat Clear Calc 58.01, Est GFR (MDRD) Af Amer 82, Est GFR (MDRD) Non-Af 68, BUN/Creatinine Ratio 15.0, Glucose 112 H, Calcium 8.3 L 07/25/23 06:29: POC Glucose 106 Microbiology: Microbiology 07/23/23 09:00 Wound - Leg, Right Gram Stain - Final 07/23/23 09:00 Wound - Leg, Right Wound Culture - Final Serratia marcescens Coag Negative Staph D/C Instructions Discharge Diet: Low fat / Low cholesterol, 1800 Calorie Control Diet and 2000 mgSodium Diet Weight Bearing Status: Weight bearing as tolerated Call your doctor if you observe: Fever of 101 or Higher, Coldness, Increased Pain, Numbness or Tingling, Change in Color, Inability to urinate, Inability to have a bowel movement, Shortness of breath, Dizziness, Fainting spells, Swellingin the ankles, Chest pain, Prolonged hiccupping, Increased palpitations (irregular heartbeat) and Calf discomfort When: IN 2 WEEKS Meaningful Use Info Meaningful Use Diagnoses (Choose all that apply): None applicable Discharge Plan Admission Admit Date/Time: 07/22/23 22:30 Primary Reason for Your Visit: B/L LE ulcers. Subacute hyponatremia. Attending Provider: Stewart Dukes Primary Care Provider: Maya Pradhan Consulting Providers: Emmett Patten; Alfonso Jade Discharge Orders/Prescriptions Prescriptions: New linezolid 600 mg tablet 600 mg PO BID Qty: 14 0RF Rx Instructions: ok to take with low dose buspar cephalexin 500 mg capsule 500 mg PO TID Qty: 20 0RF Rx Instructions: tolerated cefazolin without issue insulin lispro [Humalog KwikPen Insulin] 100 unit/mL Insulin Pen See Protocol subcut ACHS & 3AM Qty: 15 3RF Protocol: 3. Sliding Scale Insulin Med Dosing Condition: 150-189 mg/dl = 1 unit Condition: 190-229 mg/dl = 2 units Condition: 230-269 mg/dl = 3 units Condition: 270-309 mg/dl = 4 units Condition: 310-349 mg/dl = 5 units Condition: 350-399 mg/dl = 6 units Condition: 400-449 mg/dl = 7 units Condition: Greater than 449 call physician Protocol Text: - Use for Total Daily Dose of Insulin 37-55 units - Obsese, infected, or steroid patients MEDIUM DOSING ALGORITHIM Continued buspirone 10 mg tablet 10 mg PO TID tizanidine 2 mg capsule 2 mg PO Q8H PRN (Reason: Spasms) vitamin B complex Tablet 1 tab PO DAILY nitroglycerin 0.4 mg tablet, sublingual 0.4 mg SUBLINGUAL Q5M PRN (Reason: Angina pain) Qty: 25 3RF clopidogrel 75 mg tablet 75 mg PO DAILY pravastatin 40 mg tablet 40 mg PO DAILY metformin 1,000 MG tablet 1,000 mg PO BIDCM montelukast 10 MG tablet 10 mg PO QHS pramipexole 1 mg tablet 2 mg PO QHS Patient Comments: 1 mg PO 2 tablets by mouth at bedtime Rx Instructions: 1 mg PO 2 tablets by mouth at bedtime fluticasone propionate 50 mcg/actuation spray,suspension 1 spray INTRANASAL DAILY PRN (Reason: nasal spray) alprazolam 0.25 mg tablet 0.25 mg PO DAILY PRN (Reason: anxiety) Patient Comments: for anxiety acetaminophen 325 MG tablet 325 - 650 mg PO Q6H PRN PRN (Reason: Pain) 0RF aspirin 81 MG tablet 81 mg PO DAILY@0800 Qty: 30 0RF cholecalciferol (vitamin D3) 2,000 UNIT capsule 2,000 unit PO BID magnesium oxide 400 MG tablet 400 mg PO DAILY coenzyme Q10 100 MG capsule 100 mg PO DAILY carvedilol 12.5 mg tablet 6.25 mg PO BID Rx Instructions: must administer with a meal/food insulin NPH isoph U-100 human 100 unit/mL suspension See Rx Instructions SC BID Qty: 10 3RF Rx Instructions: 46 units in am, 42 units in evening subcut twice a day; hold if FASTING or HS glucose less than 130 mg/dl glyburide 2.5 mg tablet 5 mg PO BID albuterol sulfate [Ventolin HFA] 90 mcg/actuation HFA aerosol inhaler 2 puff INHALATION Q4H PRN (Reason: shortness of breath or wheezing) Qty: 18 6RF isosorbide mononitrate 30 mg tablet extended release 24 hr 30 mg PO DAILY Qty: 90 3RF furosemide 40 mg tablet See Rx Instructions PO .COMPLEX Qty: 270 3RF Rx Instructions: 80mg in AM and 40mg in PM; Discontinued clindamycin HCl 300 mg capsule 300 mg PO Q12H Referrals / Follow Up: Maya Pradhan DO [Primary Care Provider] - 08/03/23 11:20 am Goyo Katz DPM [Med Staff - Active Staff] - Within 1 Week (Follow-up in wound clinic.) Disposition Disposition (needs filled in before D/C Order can be placed): Home, Self Care Charges/Coding Visit Charges Inpatient E&M: 87338 Disch Hosp >30min 07/25/23 1125 <Electronically signed by Stewart Dukes MD> Cosigner Signature (if applicable): CC: DAMON Katz; Dr. Maya Pradhan DO; Dr. Stewart Dukes MD; Dr. Alfonso Jade MD~ Signed [facility] Work Phone: [phone] 417-789911-11-2023 Discharge summary Author Stewart Dukes [facility] July 25, 2023 11:16am Note Date/Time July 25, 2023 11:08am [facility] Medical Records Department [address] [place] [address] Instructions for Home/Discharge Instructions 07/25/23 1106 MR#: [id number] Acct: [id number] Name: BLANCA GILL Rep #:[id number] : 1950 72 From: Stewart Jacinto PCP: Dr. Maya Pradhan DO Status:ADM IN Discharge Instructions Diet Discharge Diet: Low fat / Low cholesterol, 1800 Calorie Control Diet and 2000 mgSodium Diet Activity Discharge Activity: Return to Normal Activity Weight Bearing Status: Weight bearing as tolerated Dressing / Incision Call your doctor if you observe: Fever of 101 or Higher, Coldness, Increased Pain, Numbness or Tingling, Change in Color, Inability to urinate, Inability to have a bowel movement, Shortness of breath, Dizziness, Fainting spells, Swellingin the ankles, Chest pain, Prolonged hiccupping, Increased palpitations (irregular heartbeat) and Calf discomfort Follow Up Care When: IN 2 WEEKS Test Results: Test results from this visit will be discussed in further detail at your follow- up appointment, if applicable. Discharge Plan Admission Admit Date/Time: 07/22/23 22:30 Primary Reason for Your Visit: B/L LE ulcers. Subacute hyponatremia. Attending Provider: Stewart Dukes Primary Care Provider: Maya Pradhan Consulting Providers: Emmett Patten; Alfonso Jade Discharge Orders/Prescriptions Prescriptions: New linezolid 600 mg tablet 600 mg PO BID Qty: 14 0RF Rx Instructions: ok to take with low dose buspar cephalexin 500 mg capsule 500 mg PO TID Qty: 20 0RF Rx Instructions: tolerated cefazolin without issue insulin lispro [Humalog KwikPen Insulin] 100 unit/mL Insulin Pen See Protocol subcut ACHS & 3AM Qty: 15 3RF Protocol: 3. Sliding Scale Insulin Med Dosing Condition: 150-189 mg/dl = 1 unit Condition: 190-229 mg/dl = 2 units Condition: 230-269 mg/dl = 3 units Condition: 270-309 mg/dl = 4 units Condition: 310-349 mg/dl = 5 units Condition: 350-399 mg/dl = 6 units Condition: 400-449 mg/dl = 7 units Condition: Greater than 449 call physician Protocol Text: - Use for Total Daily Dose of Insulin 37-55 units - Obsese, infected, or steroid patients MEDIUM DOSING ALGORITHIM Continued buspirone 10 mg tablet 10 mg PO TID tizanidine 2 mg capsule 2 mg PO Q8H PRN (Reason: Spasms) vitamin B complex Tablet 1 tab PO DAILY nitroglycerin 0.4 mg tablet, sublingual 0.4 mg SUBLINGUAL Q5M PRN (Reason: Angina pain) Qty: 25 3RF clopidogrel 75 mg tablet 75 mg PO DAILY pravastatin 40 mg tablet 40 mg PO DAILY metformin 1,000 MG tablet 1,000 mg PO BIDCM montelukast 10 MG tablet 10 mg PO QHS pramipexole 1 mg tablet 2 mg PO QHS Patient Comments: 1 mg PO 2 tablets by mouth at bedtime Rx Instructions: 1 mg PO 2 tablets by mouth at bedtime fluticasone propionate 50 mcg/actuation spray,suspension 1 spray INTRANASAL DAILY PRN (Reason: nasal spray) alprazolam 0.25 mg tablet 0.25 mg PO DAILY PRN (Reason: anxiety) Patient Comments: for anxiety acetaminophen 325 MG tablet 325 - 650 mg PO Q6H PRN PRN (Reason: Pain) 0RF aspirin 81 MG tablet 81 mg PO DAILY@0800 Qty: 30 0RF cholecalciferol (vitamin D3) 2,000 UNIT capsule 2,000 unit PO BID magnesium oxide 400 MG tablet 400 mg PO DAILY coenzyme Q10 100 MG capsule 100 mg PO DAILY carvedilol 12.5 mg tablet 6.25 mg PO BID Rx Instructions: must administer with a meal/food insulin NPH isoph U-100 human 100 unit/mL suspension See Rx Instructions SC BID Qty: 10 3RF Rx Instructions: 46 units in am, 42 units in evening subcut twice a day; hold if FASTING or HS glucose less than 130 mg/dl glyburide 2.5 mg tablet 5 mg PO BID albuterol sulfate [Ventolin HFA] 90 mcg/actuation HFA aerosol inhaler 2 puff INHALATION Q4H PRN (Reason: shortness of breath or wheezing) Qty: 18 6RF isosorbide mononitrate 30 mg tablet extended release 24 hr 30 mg PO DAILY Qty: 90 3RF furosemide 40 mg tablet See Rx Instructions PO .COMPLEX Qty: 270 3RF Rx Instructions: 80mg in AM and 40mg in PM; Discontinued clindamycin HCl 300 mg capsule 300 mg PO Q12H Referrals / Follow Up: Maya Pradhan DO [Primary Care Provider] - 08/03/23 11:20 am Goyo Katz DPM [Med Staff - Active Staff] - Within 1 Week (Follow-up in wound clinic.) Disposition Disposition (needs filled in before D/C Order can be placed): Home, Self Care 07/25/23 1116<Electronically signed by Stewart Dukes MD>Stewart Dukes MD CC: Dr. Emmett Patten DO; Dr. Maya Pradhan DO; Dr. Alfonso Jade MD ~ Signed [facility] Work Phone: [phone]) 542-533011-10-2023 Consult note Author Emmett Guerrero [facility] July 24, 2023 9:22pm Note Date/Time July 24, 2023 7:31am [facility] Medical Records Department [address] [place] [address] Pharmacokinetic/Renal -Consult 07/24/23727 MR#: [id number] Acct: [id number] Name: BLANCA GILL Rep #:[id number] : 1950 72 From: Faith Lazo PCP: Dr. Maya Pradhan, DO Status:ADM IN Y Location: [place] [address] Consult Antibiotic Management Pharmacy has been consulted to manage selected antiobiotic: Vancomycin Type of Intervention Type of Consult: Follow-up Suspected Infection Suspected Infection: Skin/Soft tissue Labs Labs: Sodium 128 mmol/L (136-145) L 07/24/23 06:00 Potassium 4.0 mmol/L (3.5-5.1) 07/24/23 06:00 Chloride 91 mmol/L (98-107) L 07/24/23 06:00 Carbon Dioxide 31.0 mmol/L (21.0-32.0) 07/24/23 06:00 Anion Gap 6 (5-15) 07/24/23 06:00 BUN 12 mg/dL (7-18) 07/24/23 06:00 Creatinine 1.05 mg/dL (0.70-1.30) 07/24/23 06:00 Est GFR (MDRD) Af Amer 89 mL/min (>60) 07/24/23 06:00 Est GFR (MDRD) Non-Af 74 mL/min (>60) 07/24/23 06:00 BUN/Creatinine Ratio 11.4 RATIO (10-20) 07/24/23 06:00 Glucose 175 mg/dL (74-106) H 07/24/23 06:00 Vancomycin Trough 22.2 ug/mL (5.0-15.0) H 07/23/23 22:05 Random Vancomycin 15.1 ug/mL (0.0-15.0) H 07/24/23 06:00 Microbiology Microbiology: Microbiology 07/23/23 09:00 Wound - Leg, Right Gram Stain - Final Dosing Weight Weight used for dosin.1 kg Estimated Creatinine Clearance Estimated Creatinine Clearance: 77.7 Goal Trough Goal Trough: 15-20 mcg/mL Pharmacy Plan for Drug Dosing Pharmacy Plan for Drug Dosing: VANCOMYCIN LEVEL RECEIVED Current Vancomycin Dose: on HOLD (previous 1500mg Q8H) Number of Doses Received: 1500mg x2, 1750mg x1 Vancomycin Level: 15.1 Hours Since Last Dose: 15.75 Renal Function: sCr 1.05 / CrCl 77.7 ml/min Renal Function Trend: declined Lab/Micro: pending Vancomycin Plan/Comments: (restart) Vancomycin 1250mg Q12H to start @ 08:00 07/24/23 Pending Level: Vancomycin trough @ 19:30 07/25/23 Pharmacy Service will continue to monitor and adjust dosing as required. Follow-Up Labs Follow-Up Labs: Trough: Vancomycin (19:30 07/25/23) 07/24/23 0733 <Electronically signed by Faith Lazo> Date _ Faith Lazo 07/24/232121 <Electronically signed by Emmett Cash DO> Cosigner Signature (if applicable): Date Emmett Patten DO CC: ~ Signed [facility] Work Phone: 1(340) 689-581111-10-2023 Progress note Author Stewart Ernst [facility] July 24, 2023 4:53pm Note Date/Time July 24, 2023 4:53pm [facility] Medical Records Department [address] [place] [address] Progress Note - Hospitalist 07/24/23 1645 MR#: [id number] Acct: [id number] Name: BLANCA GILL Rep #:[id number] : 1950 72 From: Stewart Jacinto PCP: Dr. Maya Pradhan DO Status:ADM IN Location: [place] [address]- 1 Reason for Visit Reason for Visit: Diagnoses Type 2 diabetes mellitus with unspecified complications (07/22/23) Hypo-osmolality and hyponatremia (07/22/23) Chronic diastolic (congestive) heart failure (07/22/23) Cellulitis of right lower limb (07/22/23) senior living (current) use of insulin (07/22/23) Objective Data Objective Data Vital Signs: Vital Signs Temp Pulse Resp BP Pulse Ox O2 Del Method O2 Flow Rate 98.8 F 103 H 18 119/64 93 Nasal Cannula 4 07/24/23 15:00 07/24/23 15:00 07/24/23 15:00 07/24/23 15:00 07/24/23 15:00 07/24/23 15:00 07/24/23 15:00 Oxygen Flow Rate (L/min) 4 Oxygen Delivery Method Nasal Cannula Weight: 242 lb 15.19 oz Body Mass Index (BMI) 36.9 Intake & Output: Intake and Output for Last 24 Hours 07/22/23 07/23/23 07/24/23 23:59 23:59 23:59 Intake Total 0.75 / 0.75 1915 / 1915 735 / 735 Output Total 875 / 875 2150 / 2150 200 / 200 Balance -874.25 / -874.25 -235 / -235 535 / 535 Lab / Micro Data 07/24/23 06:00 07/24/23 06:00 Labs: Laboratory Results - last 24 hr 07/23/23 16:35: POC Glucose 155 H 07/23/23 21:45: POC Glucose 203 H 07/23/23 22:05: Vancomycin Trough 22.2 H 07/24/23 02:45: POC Glucose 197 H 07/24/23 06:00: WBC 8.3, RBC 5.09, Hgb 13.0, Hct 44.3, MCV 87.0, MCH 25.5 L, MCHC 29.3 L, RDW Std Deviation 48.3 H, RDW Coeff of Jeanette 15.1 H, Plt Count 262, MPV 9.5, Immature Gran % (Auto) 0.700, Neut % (Auto) 61.4, Lymph % (Auto) 17.5 L, [place] % (Auto) 18.7 H, Eos % (Auto) 1.2, Baso % (Auto) 0.5, Absolute Neuts (auto) 5.1, Absolute Lymphs (auto) 1.45, Nucleated RBC % 0, Differential CommentSCANNED, Sodium 128 L, Potassium 4.0, Chloride 91 L, Carbon Dioxide 31.0, Anion Gap 6, BUN 12, Creatinine 1.05, Estim Creat Clear Calc 62.43, Est GFR (MDRD) Af Amer 89, Est GFR (MDRD) Non-Af 74, BUN/Creatinine Ratio 11.4, Glucose 175 H, Calcium 8.4 L, Random Vancomycin 15.1 H 07/24/23 08:03: POC Glucose 156 H 07/24/23 12:03: POC Glucose 162 H Micro: Microbiology 07/23/23 09:00 Wound - Leg, Right Gram Stain - Final 07/23/23 09:00 Wound - Leg, Right Wound Culture - Preliminary Gram negative saloni Gram positive organism Physical Exam Narrative Patient was started on antibiotic, clindamycin with PCP on 13 July. He is on vancomycin. Previous culture positive of MRSA. Uses oxygen during the nightand on exertion. Physical exam General: Alert, Oriented x3, Cooperative, BMI 36.9 KG for his questions which HEENT: Atraumatic, PERRLA, EOMI, Normocephalic Oral: Oral mucosa dry. No Gingival or Mucosal Lesions/ Ulcerations Neck: Supple, No JVD, Negative Carotid Bruits Lungs: Air entry diminished in bilateral lung bases. No crepitation/rhonchi on4 L of oxygen. Cardiovascular: Regular rate, Regular Rhythm, Normal S1, Normal S2, soft systolic murmur right second ICS Abdomen: Bowel Sounds Present, Soft, Non Tender, mild distention. : No renal angle tenderness. No suprapubic tenderness. Extremities: No edema, Capillary Refill Less than 3 Seconds Skin: Multiple superficial ulcer over legs, mainly over the right leg. It seemsto be healing and looks much better since admission. Musculoskeletal: No Tenderness to Palpation of Joints or Extremities. ROM mild restriction due to arthritis. Neurological: Cranial nerves II-XII grossly intact, DTR 2+/4. No acute focal neurological deficit. Psych/Mental Status: Normal Affect, Appropriate. Assessment & Plan Assessment/Plan (1) Cellulitis of leg, right: (2) Acute hyponatremia: (3) Diabetes mellitus, type 2: QUALIFIERS: Diabetes mellitus complication status: with unspecified complications Diabetes mellitus ocean transportation intermediary insulin use: with ocean transportation intermediary use Qualified Code(s): E11.8 - Type 2 diabetes mellitus with unspecified complications; Z79.4 - terminal makeup operator (current) use of insulin; Z79.4 - senior living (current) use of insulin; Z79.4 - terminal makeup operator (current) use of insulin; Z79.4 - senior living (current) use of insulin PLAN: Plan Patient was admitted with 2 weeks history of progressive right lower extremity swelling pain redness and drainage. Patient stated he was not taking care of himself with recent loss of his . 1. Lower extremity cellulitis with multidrug-resistant organisms refractory to treatment in the setting of chronic venous stasis and numerous antibiotic allergies - Admit to PCU. Initially, the patient was started on give IV vancomycin and IV aztreonam given patient's multiple antibiotic allergies and failure of his outpatient clindamycin. ID consulted. Wound culture from 07/09 shows Enterococcus MSSA and Kluyvera. Antibiotic changed to vancomycin and cefazolin. Patient has history of dyspnea with penicillin but tolerated ceftriaxone in 2018. Discussed with the wound nurse. 07/24: Repeat preliminary wound culture shows gram-negative saloni 2+, gram- positive organism 1+. Discussed with ID. Plan for discharge home on 1 week offlinezolid 600 mg twice daily and Keflex 500 mg 3 times daily Hgb repeat blood culture shows organism similar to previous 1. 2. Acute hypervolemic hyponatremia of 123 mmol/L present on admission with lymphedema and varicose vein: Patient on Lasix and continued. Bilateral Satish wrap bandage. Patient had echo in March 2023 which was technically difficult reported EF 55%. Calcified aortic root. LA mildly enlarged. Normal valves. Urine osmolality 217. Patient did he saw vascular surgeon who said he has varicose vein with possibleincompetent deep venous valve and there is plan for venogram in future. Patientand her daughter decided he does not have peripheral arterial disease. 07/24: Repeat sodium is 128 does not show improvement.On furosemide 80 mg a.m. and 40 mg p.o. oral daily. Oral furosemide changed to IV 40 mg twice daily. 3. Diabetes mellitus type 2 uncontrolled with hyperglycemia - ADA diet. Fingerstick blood sugars before every meal and at bedtime plus sliding scale insulin. hemoglobin A1c 9.4 4. Obesity with BMI of 38.8 on admission with obstructive sleep apnea Weight loss will be recommended. Check TSH. 5. Essential hypertension - Continue home medications as previous. Plus give as needed IV hydralazine for systolic blood pressure greater than 160 mmHg. 6. Hyperlipidemia - Resume simvastatin. 7. History of coronary artery disease with STEMI in 2017 requiring stent placement with subsequent chronic diastolic CHF - Noted. Continue home regimen. 8. Restless leg syndrome - Continue home regimen as previous. 9. DVT prophylaxis - Lovenox 40 mg subcu daily. Charges/Coding Visit Charges Inpatient E&M: 76765 Subs Hosp L2 07/24/23 5110 <Electronically signed by Stewart Dukes MD> Cosigner Signature (if applicable): CC: ~ Signed [facility] Work Phone: 1(854) 951-953211-10-2023 Progress note Author Alfonso [facility] July 24, 2023 2:12pm Note Date/Time July 24, 2023 2:12pm [facility] Medical Records Department [address] [place] [address] Progress Note - Infect Disease 07/24/23 1409 MR#: [id number] Acct: [id number] Name: BALNCA GILL Rep #:[id number] : 1950 72 From: Alfonso burns MD PCP: Dr. Maya Pradhan, DO Status:ADM IN Location: [place] [address] Physical Exam Narrative Feeling better, no fever, RLE less sore Const alert and no apparent distress General Appearance: cooperative Resp normal air movement and clear to auscultation bilaterally Cardio regular rate and regular rhythm GI soft to palpation, non-tender and non-distended Skin Skin Narrative: RLE wrapped ID ID: Route of nutrition/ use of supplements: [] Nutritional Intake: [] IV Site: [] Perez Catheter: [] Assessment & Plan Assessment/Plan (1) Cellulitis of leg, right: PLAN: Wound cx 07/09 with enterococcus, mssa, and kluyvera. Had been on clinda without improvement; enterococcus and kluyvera were not being coverage. H/o dyspnea with PCN; tolerated ceftriaxone here in 2019. Improving on vanc/cefazolin. Wound cx here pending. Plan on home with one week po linezolid 600mg bid and keflex 500mg tid (assuming repeat wound cx shows organisms similar to previous). Will follow, d/w Dr. Dukes (2) Diabetes mellitus, type 2: QUALIFIERS: Diabetes mellitus complication status: with unspecified complications Diabetes mellitus penitentiary insulin use: with penitentiary use Qualified Code(s): E11.8 - Type 2 diabetes mellitus with unspecified complications; Z79.4 - senior living (current) use of insulin; Z79.4 - terminal makeup operator (current) use of insulin; Z79.4 - senior living (current) use of insulin; Z79.4 - senior living (current) use of insulin (3) Chronic diastolic (congestive) heart failure: 07/24/23 1412 <Electronically signed by Alfonso Jade MD> Cosigner Signature (if applicable): CC: ~ Signed [facility] Work Phone: [phone]) 239-878811-10-2023 Consult note Author Chema Montalvo [facility] July 23, 2023 11:19pm Note Date/Time July 23, 2023 1 1:19pm [facility] Medical Records Department [address] [place] [id number] Pharmacokinetic/Renal -Consult 07/23/237 MR#: [id number] Acct: [id number] Name: JAIROBLANCA E Rep #:[id number] : 1950 72 From: Chema Montalvo PCP: Dr. Maya Pradhan, DO Status:ADM IN Location: [place] [address] Consult Antibiotic Management Pharmacy has been consulted to manage selected antiobiotic: Vancomycin Type of Intervention Type of Consult: Follow-up Suspected Infection Suspected Infection: Skin/Soft tissue Labs Labs: Sodium 128 mmol/L (136-145) L 07/23/23 04:03 Potassium 4.0 mmol/L (3.5-5.1) 07/23/23 04:03 Chloride 85 mmol/L (98-107) L 07/23/23 04:03 Carbon Dioxide 35.0 mmol/L (21.0-32.0) H 07/23/23 04:03 Anion Gap 8 (5-15) 07/23/23 04:03 BUN 8 mg/dL (7-18) 07/23/23 04:03 Creatinine 0.81 mg/dL (0.70-1.30) 07/23/23 04:03 Est GFR (MDRD) Af Amer 120 mL/min (>60) 07/23/23 04:03 Est GFR (MDRD) Non-Af 99 mL/min (>60) 07/23/23 04:03 BUN/Creatinine Ratio 9.9 RATIO (10-20) L 07/23/23 04:03 Glucose 126 mg/dL (74-106) H 07/23/23 04:03 Vancomycin Trough 22.2 ug/mL (5.0-15.0) H 07/23/23 22:05 Microbiology Microbiology: Microbiology 07/23/23 09:00 Wound - Leg, Right Gram Stain - Final Dosing Weight Weight used for dosin kg Estimated Creatinine Clearance Estimated Creatinine Clearance: 101 Goal Trough Goal Trough: 15-20 mcg/mL Pharmacy Plan for Drug Dosing Pharmacy Plan for Drug Dosing: Vancomycin trough level of 22.2, drawn 8hrs post-dose, was high. Will suspend current dosing and draw a random level in eight hours to determine further adjustment. Pharmacy Service will continue to monitor and adjust dosing as required. Follow-Up Labs Follow-Up Labs: Trough: Vancomycin (random) Date/Time Labs Ordered Labs to be done on [date and time ordered]: 07/24/23 @0600 07/23/23 7318 <Electronically signed by Chema garcia> Date _ Chema Buck Signature (if applicable): Date CC: ~ Signed [facility] Work Phone: 1(152) 800-854111-09-2023 Progress note Author Stewart Dukes [facility] July 23, 2023 4:47pm Note Date/Time July 23, 2023 9 :08am [facility] Medical Records Department [facility] [place] [address] Progress Note - Hospitalist 07/23/23905 MR#: [id number] Acct: [id number] Name: BLANCA GILL Rep #:[id number] : 1950 72 From: Stewart Jacinto PCP: Dr. Maya Pradhan, DO Status:ADM IN Location: [place] [address] Reason for Visit Reason for Visit: Diagnoses Type 2 diabetes mellitus with unspecified complications (07/22/23) Hypo-osmolality and hyponatremia (07/22/23) Cellulitis of right lower limb (07/22/23) terminal makeup operator (current) use of insulin (07/22/23) Objective Data Objective Data Vital Signs: Vital Signs Temp Pulse Resp BP Pulse Ox O2 Del Method O2 Flow Rate 99.3 F H 112 H 18 154/83 H 93 Nasal Cannula 4 07/23/23 06:15 07/23/23 06:15 07/23/23 06:15 07/23/23 06:15 07/23/23 08:52 07/23/23 08:52 07/23/23 08:52 Oxygen Flow Rate (L/min) 4 Oxygen Delivery Method Nasal Cannula Weight: 242 lb 15.19 oz Body Mass Index (BMI) 36.9 Intake & Output: Intake and Output for Last 24 Hours 07/21/23 07/22/23 07/23/23 23:59 23:59 23:59 Intake Total 0.75 / 0.75 635 / 635 Output Total 875 / 875 400 / 400 Balance -874.25 / -874.25 235 / 235 Lab / Micro Data 07/23/23 04:03 07/23/23 04:03 Labs: Laboratory Results - last 24 hr 07/22/23 20:59: WBC 7.8, RBC 4.89, Hgb 12.9 L, Hct 40.3, MCV 82.4, MCH 26.4 L, MCHC 32.0, RDW Std Deviation 45.1 H, RDW Coeff of Jeanette 14.8 H, Plt Count 292, MPV9.2, Immature Gran % (Auto) 0.300, Neut % (Auto) 64.1, Lymph % (Auto) 18.4 L, [place] % (Auto) 14.2 H, Eos % (Auto) 2.6, Baso % (Auto) 0.4, Absolute Neuts (auto)5.0, Absolute Lymphs (auto) 1.44, Nucleated RBC % 0, Sodium 123 L, Potassium 3.9, Chloride 88 L, Carbon Dioxide 33.0 H, Anion Gap 2 L, BUN 8, Creatinine 0.74, Estim Creat Clear Calc 65.55, Est GFR (MDRD) Af Amer 134, Est GFR (MDRD) Non-Af 110, BUN/Creatinine Ratio 10.8, Glucose 111 H, Hemoglobin A1c 9.4 H, Lactic Acid 0.9, Calcium 8.6 07/22/23 22:23: POC Glucose 108 H 07/23/23 02:15: POC Glucose 129 H 07/23/23 04:03: WBC 8.5, RBC 5.25, Hgb 13.5, Hct 44.4, MCV 84.6, MCH 25.7 L, MCHC 30.4 L, RDW Std Deviation 45.1 H, RDW Coeff of Jeanette 14.8 H, Plt Count 314, MPV 9.8, Immature Gran % (Auto) 0.200, Neut % (Auto) 68.6, Lymph % (Auto) 13.4 L, [place] % (Auto) 15.9 H, Eos % (Auto) 1.4, Baso % (Auto) 0.5, Absolute Neuts (auto) 5.8, Absolute Lymphs (auto) 1.13, Nucleated RBC % 0, Sodium 128 L, Potassium 4.0, Chloride 85 L, Carbon Dioxide 35.0 H, Anion Gap 8, BUN 8, Creatinine 0.81, Estim Creat Clear Calc 80.93, Est GFR (MDRD) Af Amer 120, Est GFR (MDRD) Non-Af 99, BUN/Creatinine Ratio 9.9 L, Glucose 126 H, Calcium 8.4 L, Total Bilirubin 1.00, AST 18, ALT 31, Alkaline Phosphatase 62, Total Protein 7.1, Albumin 3.0 L, Globulin 4.1, Albumin/Globulin Ratio 0.7 L 07/23/23 06:22: POC Glucose 138 H Radiography Diagnostic Testing: Radiology Impression Brain CT 07/23/23 06:45 IMPRESSION: 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 No acute intracranial hemorrhage identified. Mild chronic involutional and white matter changes. Electronically Signed: Magy Cardona MD at 8:17 EST , Physical Exam Narrative Patient was started on antibiotic, clindamycin with PCP on 13 July. He is on vancomycin. Previous culture positive of MRSA. Uses oxygen during the nightand on exertion. Physical exam General: Alert, Oriented x3, Cooperative, BMI 36.9 KG for his questions which HEENT: Atraumatic, PERRLA, EOMI, Normocephalic Oral: Oral mucosa dry. No Gingival or Mucosal Lesions/ Ulcerations Neck: Supple, No JVD, Negative Carotid Bruits Lungs: Air entry diminished in bilateral lung bases. No crepitation/rhonchi Cardiovascular: Regular rate, Regular Rhythm, Normal S1, Normal S2, soft systolic murmur right second ICS Abdomen: Bowel Sounds Present, Soft, Non Tender, mild distention. : No renal angle tenderness. No suprapubic tenderness. Extremities: No edema, Capillary Refill Less than 3 Seconds Skin: Multiple superficial ulcer over legs, mainly over the right leg. It seemsto be healing. Musculoskeletal: No Tenderness to Palpation of Joints or Extremities Neurological: Cranial nerves II-XII grossly intact, DTR 2+/4. No acute focal neurological deficit. Psych/Mental Status: Normal Affect, Appropriate. Assessment & Plan Assessment/Plan (1) Cellulitis of leg, right: (2) Acute hyponatremia: (3) Diabetes mellitus, type 2: QUALIFIERS: Diabetes mellitus complication status: with unspecified complications Diabetes mellitus ocean transportation intermediary insulin use: with penitentiary use Qualified Code(s): E11.8 - Type 2 diabetes mellitus with unspecified complications; Z79.4 - terminal makeup operator (current) use of insulin; Z79.4 - senior living (current) use of insulin; Z79.4 - terminal makeup operator (current) use of insulin; Z79.4 - senior living (current) use of insulin PLAN: Plan Patient was admitted with 2 weeks history of progressive right lower extremity swelling pain redness and drainage. Patient stated he was not taking care of himself with recent loss of his . 1. Lower extremity cellulitis with multidrug-resistant organisms refractory to treatment in the setting of chronic venous stasis and numerous antibiotic allergies - Admit to PCU. Initially, the patient was started on give IV vancomycin and IV aztreonam given patient's multiple antibiotic allergies and failure of his outpatient clindamycin. ID consulted. Wound culture from 07/09 shows Enterococcus MSSA and Luvira. Antibiotic changed to vancomycin and cefazolin. Patient has history of dyspnea with penicillin but tolerated ceftriaxone in 2019. Discussed with the wound nurse. 2. Acute hypervolemic hyponatremia of 123 mmol/L present on admission with lymphedema and varicose vein: Patient on Lasix and continued. Bilateral Satish wrap bandage. Patient had echo in March 2023 which was technically difficult reported EF 55%. Calcified aortic root. LA mildly enlarged. Normal valves. Urine osmolality 217. Patient did he saw vascular surgeon who said he has varicose vein with possibleincompetent deep venous valve and there is plan for venogram in future. Patientand her daughter decided he does not have peripheral arterial disease. 3. Diabetes mellitus type 2 uncontrolled with hyperglycemia compounding #1 and #2 - ADA diet. Fingerstick blood sugars before every meal and at bedtime plus sliding scale insulin. hemoglobin A1c 9.4 4. Obesity with BMI of 38.8 on admission with obstructive sleep apnea Weight loss will be recommended. Check TSH. 5. Essential hypertension - Continue home medications as previous. Plus give as needed IV hydralazine for systolic blood pressure greater than 160 mmHg. 6. Hyperlipidemia - Resume simvastatin. 7. History of coronary artery disease with STEMI in 2017 requiring stent placement with subsequent chronic diastolic CHF - Noted. Continue home regimen. 8. Restless leg syndrome - Continue home regimen as previous. 9. DVT prophylaxis - Lovenox 40 mg subcu daily. Charges/Coding Visit Charges Inpatient E&M: 55629 Subs Hosp L2 07/23/23 1647 <Electronically signed by Stewart Dukes MD> Cosigner Signature (if applicable): CC: ~ Signed [facility] Work Phone: [phone]) 101-337211-09-2023 Consult note Author Alfonso Jade [facility] July 23, 2023 10:25am Note Date/Time July 23, 2023 1 0:26am [facility] Medical Records Department [facility] [place] [address] Consultation - Infectious Dx 07/23/23 1022 MR#: [id number] Acct: [id number] Name: BLANCA GILL Rep #:[id number] : 1950 72 From: Alfonso burns MD PCP: Dr. Maya Pradhan, DO Status:ADM IN Location: [place] [id number] Assessment & Plan Assessment/Plan (1) Cellulitis of leg, right: PLAN: Wound cx 07/09 with enterococcus, mssa, and kluyvera. Had been on clinda without improvement; enterococcus and kluyvera were not being coverage. H/o dyspnea with PCN; tolerated ceftriaxone here in 2019. Will change to vanc/cefazolin and monitor for any issues. Will follow, thank you (2) Diabetes mellitus, type 2: QUALIFIERS: Diabetes mellitus complication status: with unspecified complications Diabetes mellitus ocean transportation intermediary insulin use: with ocean transportation intermediary use Qualified Code(s): E11.8 - Type 2 diabetes mellitus with unspecified complications; Z79.4 - senior living (current) use of insulin; Z79.4 - senior living (current) use of insulin; Z79.4 - terminal makeup operator (current) use of insulin; Z79.4 - terminal makeup operator (current) use of insulin (3) Chronic diastolic (congestive) heart failure: HPI Consult Data Date of Consult: 07/23/23 HPI Narrative Reason for Consultation: cellulitis HPI Narrative: BLANCA GILL, is a 72 M with chronic edema, DM, obesity, CAD, CHF, presented with 2 weeks progressive RLE pain, redness, swelling, drainage. Drainage was serous. No fever or chills. Saw PCP, wound cx done, given one week po clinda bid dosing without much improvement. Sx slowly worsened. Came to ED, admitted on vanc/aztreonam. Full ROS Performed and neg except as noted above. [facility] Medical History Abnormal nuclear stress test Anxiety Asthma Atherosclerotic heart disease of [place] coronary artery without angina pectoris Carotid bruit Chronic diastolic (congestive) heart failure 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 disease Diabetes mellitus, type 2 Edema Essential hypertension History of ST elevation myocardial infarction (STEMI) (07/11/17) Hyperlipidemia Hypomagnesemia IBS (irritable bowel syndrome) Inappropriate sexual behavior Lower extremity edema Muscle cramps Neck pain 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.9) KRISTI (obstructive sleep apnea) Restless legs Shortness of breath Home Medications metformin 1,000 mg tablet 1,000 mg PO BIDCM diabetes 01/17/16 [History Last Taken 04/12/19] montelukast 10 mg tablet 10 mg PO QHS allergies 01/17/16 [History Last Taken 12/07/18] acetaminophen 325 mg tablet 325 - 650 mg (1 - 2 x 325 mg) PO Q6H PRN PRN Pain 07/14/17 [Rx Last Taken Unknown] aspirin 81 mg tablet,delayed release 81 mg PO DAILY@0800 #30 tabs 07/14/17 [Rx Last Taken 12/06/21] buspirone 10 mg tablet 10 mg PO TID Anxiety 05/07/18 [History Last Taken 04/13/19] pramipexole 1 mg tablet 2 mg PO QHS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 extremity edema chroni c [facility] Work Phone: [phone] 310-679107-31-2019 Evaluation note* Diagnosis Onset Date Resolution Status 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 disease 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 Diabetes mellitus, type 2 ch ronic Essential hypertension chron ic History of coronary artery stent placement April 13, 2019 chronic Hyperlipidemia chronic Lower extremity edema chroni c 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.9) 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 Lower extremity edema chroni c Acute hyponatremia acute Cellulitis of leg, right acu te Diabetes mellitus, type 2 ch ronic History of chronic CHF chron ic [facility] Work Phone: [phone]) [phone] Evaluation note* Diagnosis Onset Date Resolution Status 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 disease 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 Diabetes mellitus, type 2 ch ronic Essential hypertension chron ic History of coronary artery stent placement April 13, 2019 chronic Hyperlipidemia chronic Lower extremity edema chroni c 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.9) 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 Appointment Date:07/31/2023 09:00:00 AM Scheduled Provider:JEREMÍAS VAZ MD Location:UROLOGY Appointment Type:URO OV Future Scheduled Tests Laboratory* Prostate Specific Antigen 04/30/22 * Prostate Specific Antigen 07/10/22 * Prostate Specific Antigen 07/28/23 * Thyroid Stimulating Hormone 04/30/22 * A1C Hemoglobin 04/30/22 * Complete Blood Count 04/30/22 * Lipid Profile 04/30/22 * Vitamin D Level 04/30/22 * Complete Metabolic Panel 04/30/22 [facility] Evaluation + Plan note Future Appointments Appointment Date:07/31/2023 09:00:00 AM Scheduled Provider:JEREMÍAS VAZ MD Location:UROLOGY Appointment Type:URO OV Future Scheduled Tests Laboratory* Prostate Specific Antigen 04/30/22 * Prostate Specific Antigen 07/10/22 * Prostate Specific Antigen 07/28/23 * Prostate Specific Antigen 01/02/23 * Thyroid Stimulating Hormone 04/30/22 * A1C Hemoglobin 01/02/23 * A1C Hemoglobin 04/30/22 * Complete Blood Count 04/30/22 * Lipid Profile 04/30/22 * Vitamin D Level 04/30/22 * Complete Metabolic Panel 04/30/22 [facility] Evaluation + Plan note Future Appointments Appointment Date:02/02/2024 02:40:00 PM Scheduled Provider:GLENDY CARDOZA Location:UROLOGY Appointment Type:URO OV Future Scheduled Tests Laboratory* Prostate Specific Antigen 07/28/23 [facility] Evaluation + Plan note Future Appointments Appointment Date:08/04/2024 09:40:00 AM Scheduled Provider:GLENDY CARDOZA Location:UROLOGY Appointment Type:URO OV Future Scheduled Tests Laboratory* Prostate Specific Antigen 08/04/24 * Prostate Specific Antigen 07/28/23 [facility] Evaluation note* Diagnosis Onset Date Resolution Status KRISTI (obstructive sleep apnea) acute Asthma chronic Chronic diastolic (congestive) heart failure chronic 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.9) 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 Abnormal nuclear stress test acute Essential hypertension acute Atherosclerotic heart diseas e of [place] coronary artery without angina pectoris chronic Edema chronic Hyperlipidemia [facility] Work Phone: Evaluation note* Diagnosis Onset Date Resolution Status Abnormal nuclear stress test acute Essential hypertension acute Atherosclerotic heart diseas e of [place] coronary artery without angina pectoris chronic Edema chronic Hyperlipidemia chronic Essential hypertension acute History of coronary artery stent placement April 13, 2019 acute Edema chronic Hyperlipidemia [facility] Work Phone: Evaluation note* Diagnosis Onset Date Resolution Status KRISTI (obstructive sleep apnea) acute Asthma chronic 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.9) 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 Dyspnea on exertion chronic Essential hypertension chron ic History of coronary artery stent placement April 13, 2019 chronic Hyperlipidemia chronic Lower extremity edema chroni c 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.9) 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 Varicose veins of both legs with edema [facility] Work Phone: Evaluation note* Diagnosis Onset Date Resolution Status Ulcer of extremity due to ch [place] venous insufficiency chronic Ulcer of extremity due to [place] venous insufficiency chronic Asthma acute Ulcer of extremity due to [place] venous insufficiency chronic Tinea cruris acute 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 disease 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 Dyspnea on exertion chronic Essential hypertension chron ic History of coronary artery stent placement April 13, 2019 chronic Hyperlipidemia chronic Lower extremity edema chroni c 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.9) 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 [facility] Work Phone: Evaluation note* Diagnosis Onset Date Resolution Status Ulcer of extremity due to ch r[place] venous insufficiency chronic Ulcer of extremity due to [place] venous insufficiency chronic Asthma acute Ulcer of extremity due to ch r[place] venous insufficiency chronic Tinea cruris acute 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 disease 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 Dyspnea on exertion chronic Essential hypertension chron ic History of coronary artery stent placement April 13, 2019 chronic Hyperlipidemia chronic Lower extremity edema chroni c 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.9) 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 Ulcer of extremity due to ch ronic venous insufficiency chronic [facility] Work Phone: Evaluation note* Diagnosis BPH with obstruction/lower urinary tract symptoms- Primary Hypertrophy of prostate with urinary obstruction and other lower urinary tract symptoms (LUTS) Type 2 diabetes mellitus without retinopathy (HCC) Type II or unspecified type diabetes mellitus without mention of complication, not stated as uncontrolled Erectile dysfunction due to arterial insufficiency Impotence of organic origin Family history of prostate cancer Family history of malignant neoplasm of prostate documented in this encounter 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* Diagnosis Prostate disorder- Primary Unspecified disorder of prostate Fungal infection of the groin- Primary Dermatophytosis of groin and perianal area documented in this encounter [facility]* Diagnosis Prostate disorder- Primary Unspecified disorder of prostate Open wound- Primary Open wound(s) (multiple) of unspecified site(s), without mention of complication Dysuria documented in this encounter [facility] note* Diagnosis Prostate disorder- Primary Unspecified disorder of prostate Healing wound- Primary documented in this encounter [facility] note* Diagnosis Prostate disorder- Primary Unspecified disorder of prostate Feared condition not demonstrated- Primary Person with feared complaint in whom no diagnosis was made Skin erythema Unspecified erythematous condition documented in this encounter [facility] note* Diagnosis Prostate disorder- Primary Unspecified disorder of prostate Urinary urgency- Primary Urgency of urination BPH with obstruction/lower urinary tract symptoms Hypertrophy of prostate with urinary obstruction and other lower urinary tract symptoms (LUTS) Erectile dysfunction due to arterial insufficiency Impotence of organic origin documented in this encounter [facility]* Diagnosis Prostate disorder- Primary Unspecified disorder of prostate Skin infection- Primary Unspecified local infection of skin and subcutaneous tissue documented in this encounter [facility]* Diagnosis Prostate disorder- Primary Unspecified disorder of prostate Tinea cruris- Primary Dermatophytosis of groin and perianal area Penile irritation Other specified disorder of penis documented in this encounter [facility]* Diagnosis Prostate disorder- Primary Unspecified disorder of prostate Tinea cruris- Primary Dermatophytosis of groin and perianal area documented in this encounter 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 of prostate with urinary obstruction and other lower urinary tract symptoms (LUTS) Urine retention Retention of urine, unspecified Type 2 diabetes mellitus with hyperglycemia, unspecified whether ocean transportation intermediary insulin use (HCC) Screening for genitourinary condition Screening for other and unspecified genitourinary condition documented in this encounter [facility] noteNo assessment information [facility]WC[facility] Work Phone: Evaluation note* Diagnosis Urinary urgency- Primary Urgency of urination BPH with obstruction/lower urinary tract symptoms Hypertrophy of prostate with urinary obstruction and other lower urinary tract symptoms (LUTS) Urinary frequency Incomplete bladder emptying Family history of prostate cancer Family history of malignant neoplasm of prostate Balanitis Balanoposthitis Erectile dysfunction due to arterial insufficiency Impotence of organic origin Testicular swelling Edema of male genital organs [facility] Onset Date Resolution Status Admit Date (HFpEF) heart failure with preserved ejection fraction chronic Augu 2024 8:47am 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 disease chronic A ug2024 8:47am Dyslipidemia chronic May 03, 2025 8:47am Hypertension chronic May 03, 2025 8:47am [facility] Work Phone: Evaluation note* Diagnosis Feeling of incomplete bladder emptying- Primary Incomplete bladder emptying [facility] Diagnosis BPH with obstruction/lower urinary tract symptoms- Primary Hypertrophy of prostate with urinary obstruction and other lower urinary tract symptoms (LUTS) Feeling of incomplete bladder emptying Incomplete bladder emptying [facility] Incomplete bladder emptying- Primary Prostate cancer screening Special screening for malignant neoplasm of prostate [facility] N[facility]ative No data available for this section [facility] Discharge instructions No data available for this section [facility] Instructions* Attachments The following attachments cannot be sent through Care Everywhere. * Cystoscopy in the Office ([facility]) (Surinamese) * Prostate Ultrasound and Biopsy ([facility]) ([place]ames[place]) [facility] Attachments The following attachments cannot be sent through Care Everywhere. * Cystoscopy: Post-op (Surinamese) * [facility] Discharge Instructions ([facility]) ([place]amese) [facility] No data available for this section [facility] Reason for referral (narrative)No reason for referral information [facility]WCinc[facility] Work Phone: Summary Purpose Family History No Family History Records Found Relationship Condition Age at Onset Recorded Date/T rafael mother Diabetes mellitus Unknown Hypertension Unknown father Hypotension Unknown brother Hypertension Unknown Hyperlipidemia Unknown grandmother Diabetes mellitus Unknown grandfather Cerebrovascular accident (CVA) Unknown Diabetes mellitus Unknown brother Malignant neoplasm Unknown Advance Directives No Advanced Directives Records Found Advance Directive Response Recorded Date/ Time Advance Directives No December 06 7:22am Living Will No December 06, 2021 7:22am Power of Harness Worker No December 06 7:22am Advance Directive Response Recorded Date/ Time Advance Directives No December 06 6:22am Living Will No December 06, 2021 6:22am Power of Harness Worker No December 06 6:22am Advance Directive Response Recorded Date/ Time Advance Directives No December 06 6:22am Living Will No July 22 8:13pm Power of Harness Worker No July 22, 2023 8:13pm Advance Directive Response Recorded Date/ Time Advance Directives No December 06 6:22am Living Will No July 23 1:36am Power of Harness Worker No July 23, 2023 1:36am Advance Directive Response Recorded Date/ Time Advance Directives No September 30, 2023 10:03am Living Will No September 30 10:03am Power of Harness Worker No September 30, 2023 10:03am Advance Directive Response Recorded Date/ Time Advance Directives No September 30, 2023 11:03am Living Will No September 30 11:03am Power of Harness Worker No September 30, 2023 11:03am Advance Directive Response Recorded Date/ Time Advance Directives No January 20, 2024 12:44pm Living Will No January 20, 2024 12 :44pm Power of Harness Worker No January 20, 2024 12:44pm Advance Directive Response Recorded Date/ Time Living Will No November 07 5:04am Do you have a Healthcare Power of Harness Worker? No November 07, 2024 5:04am Advance Directives No January 25 7:41am Advance Directive Response Recorded Date/ Time Advance Directives No January 25 7:41am Chief Complaint and Reason for Visit Chief Complaint 3 M FU FALL - SWELLING POSTERIOR THIGH DYSPNEA ON EXERTION DYSPNEA ON EXERTION 3 M FU LEFT HEART CATH I73.9 Peripheral vascular disease, unspecified Reason for Visit KRISTI (obstructive sle ep apnea) Asthma Chronic diastolic (congestive) heart failure 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.9) Abnormal nuclear stress test Essential hypertension Atherosclerotic heart disease of [place] coronary artery without angina pectoris Edema Hyperlipidemia Chief Complaint 3 M FU FALL - SWELLING POSTERIOR THIGH DYSPNEA ON EXERTION DYSPNEA ON EXERTION 3 M FU LEFT HEART CATH I73.9 Peripheral vascular disease, unspecified SWELLING/PAIN Reason for Visit KRISTI (obstructive sle ep apnea) Asthma Chronic diastolic (congestive) heart failure 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.9) Abnormal nuclear stress test Essential hypertension Atherosclerotic heart disease of [place] coronary artery without angina pectoris Edema Hyperlipidemia Chief Complaint DYSPNEA ON EXERTION DYSPNEA ON EXERTION 3 M FU LEFT HEART CATH I73.9 Peripheral vascular disease, unspecified SWELLING/PAIN 9 M FU (DJN PT) Reason for Visit Abnormal nuclear str ess test Essential hypertension Atherosclerotic heart disease of [place] coronary artery without angina pectoris Edema Hyperlipidemia Essential hypertension History of coronary artery stent placement Edema Hyperlipidemia Chief Complaint 6 M FU R09.89 Reason for Visit Carotid bruit Essential hypertension History of coronary artery stent placement Edema Hyperlipidemia Chief Complaint 6 M FU R09.89 6 M FU Reason for Visit Carotid bruit Essential hypertension History of coronary artery stent placement Edema Hyperlipidemia KRISTI (obstructive sleep apnea) Asthma 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.9) Chief Complaint 6 M FU Reason for Visit KRISTI (obstructive sle ep apnea) Asthma 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.9) Chief Complaint 6 M FU(Prev DJN) Old myocardial infarction Amb Documentation 4 wk fu RIGHT LEG SWELLING PAIN Reason for Visit 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 dise ase Diabetes mellitus, type 2 Essential hypertension History of coronary artery stent placement Hyperlipidemia Lower extremity edema 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.9) 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 disease Diabetes mellitus, type 2 Essential hypertension History of coronary artery stent placement Hyperlipidemia Lower extremity edema 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.9) Varicose veins of both legs with edema Chief Complaint 6 M FU(Prev DJN) Old myocardial infarction Amb Documentation 4 wk fu RIGHT LEG SWELLING PAIN CONSULT-EDEMA Reason for Visit 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 dise ase Diabetes mellitus, type 2 Essential hypertension History of coronary artery stent placement Hyperlipidemia Lower extremity edema 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.9) 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 disease Diabetes mellitus, type 2 Essential hypertension History of coronary artery stent placement Hyperlipidemia Lower extremity edema 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.9) Varicose veins of both legs with edema Lower extremity edema Chief Complaint Old myocardial infar ction Amb Documentation 4 wk fu RIGHT LEG SWELLING PAIN CONSULT-EDEMA RIGHT LOWER EXTREMITY CELLULITIS AND HYPONATREMIA Reason for Visit 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 dise ase Diabetes mellitus, type 2 Essential hypertension History of coronary artery stent placement Hyperlipidemia Lower extremity edema 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.9) Varicose veins of both legs with edema Lower extremity edema Acute hyponatremia Cellulitis of leg, right Diabetes mellitus, type 2 History of chronic CHF Chief Complaint Old myocardial infar ction Amb Documentation 4 wk fu RIGHT LEG SWELLING PAIN CONSULT-EDEMA RIGHT LOWER EXTREMITY CELLULITIS AND HYPONATREMIA RIGHT LOWER EXTREMITY CELLULITIS AND HYPONATREMIA RIGHT LOWER EXTREMITY CELLULITIS AND HYPONATREMIA RIGHT LOWER EXTREMITY CELLULITIS AND HYPONATREMIA RIGHT LOWER EXTREMITY CELLULITIS AND HYPONATREMIA RIGHT LOWER EXTREMITY CELLULITIS AND HYPONATREMIA RIGHT LOWER EXTREMITY CELLULITIS AND HYPONATREMIA Reason for Visit 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 dise ase Diabetes mellitus, type 2 Essential hypertension History of coronary artery stent placement Hyperlipidemia Lower extremity edema 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.9) Varicose veins of both legs with edema Lower extremity edema Acute hyponatremia Cellulitis of leg, right Chronic diastolic (congestive) heart failure Diabetes mellitus, type 2 History of chronic CHF Chief Complaint RIGHT LEG SWELLING P AIN CONSULT-EDEMA RIGHT LOWER EXTREMITY CELLULITIS AND HYPONATREMIA RIGHT LOWER EXTREMITY CELLULITIS AND HYPONATREMIA RIGHT LOWER EXTREMITY CELLULITIS AND HYPONATREMIA RIGHT LOWER EXTREMITY CELLULITIS AND HYPONATREMIA RIGHT LOWER EXTREMITY CELLULITIS AND HYPONATREMIA RIGHT LOWER EXTREMITY CELLULITIS AND HYPONATREMIA RIGHT LOWER EXTREMITY CELLULITIS AND HYPONATREMIA ADMISSION EXAM LAB WORK F/U Non-pressure chronic ulcer of skin of other sites Non-pressure chronic ulcer of skin of other sites Reason for Visit Lower extremity daniel a History of chronic CHF Cellulitis of leg, right Chronic diastolic (congestive) heart failure Ulcer of extremity due to chronic venous insufficiency Ulcer of extremity due to chronic venous insufficiency Chief Complaint F/U Non-pressure chronic ulcer of skin of other sites Non-pressure chronic ulcer of skin of other sites SUTURE REMOVAL Cough 3 W POST OP OPEN WOUND ON PENIS 6 M FU Reason for Visit Ulcer of extremity d ue to chronic venous insufficiency Ulcer of extremity due to chronic venous insufficiency Ulcer of extremity due to chronic venous insufficiency Asthma Ulcer of extremity due to chronic venous insufficiency Tinea cruris 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 disease Dyspnea on exertion Essential hypertension History of coronary artery stent placement Hyperlipidemia Lower extremity edema 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.9) Varicose veins of both legs with edema Chief Complaint Non-pressure chronic ulcer of skin of other sites Non-pressure chronic ulcer of skin of other sites SUTURE REMOVAL Cough 3 W POST OP OPEN WOUND ON PENIS 6 M FU DYSPNEA DYSPNEA Reason for Visit Ulcer of extremity d ue to chronic venous insufficiency Ulcer of extremity due to chronic venous insufficiency Asthma Ulcer of extremity due to chronic venous insufficiency Tinea cruris 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 disease Dyspnea on exertion Essential hypertension History of coronary artery stent placement Hyperlipidemia Lower extremity edema 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.9) Varicose veins of both legs with edema Chief Complaint Non-pressure chronic ulcer of skin of other sites Non-pressure chronic ulcer of skin of other sites SUTURE REMOVAL Cough 3 W POST OP OPEN WOUND ON PENIS 6 M FU DYSPNEA DYSPNEA NON HEALING ULCER E ORDERS/No cath scheduled yet ABN STRESS Reason for Visit Ulcer of extremity d ue to chronic venous insufficiency Ulcer of extremity due to chronic venous insufficiency Asthma Ulcer of extremity due to chronic venous insufficiency Tinea cruris 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 disease Dyspnea on exertion Essential hypertension History of coronary artery stent placement Hyperlipidemia Lower extremity edema 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.9) Varicose veins of both legs with edema Ulcer of extremity due to chronic venous insufficiency Chief Complaint Admit Date Cellulitis of right lower limb October 31, 2024 10:15am Recurring Wounds, blister November 04, 2024 1:47pm chest pain November 07, 2024 4:00am [address]/e orders and paper February 132024 12:27pm Reason for Visit Admit Date Lymphedema November 04, 2024 1:47pm Wound of left lower extremity October 162024 1:47pm Lower extremity edema November 04 1:47pm Chief Complaint Admit Date [address]e orders and paper February 132024 12:27pm WOUND CENTER PROTOCOL March 28, 2025 12 :26pm Chief Complaint Admit Date [address]/e orders and paper February 132024 12:27pm WOUND CENTER PROTOCOL March 28, 2025 12 :26pm LE WOUND March 28, 2025 12:3 4pm OVERDUE FU May 03, 2025 8: 47am Reason for Visit Admit Date (HFpEF) heart failure with preserved eje ction fraction May 03, 2025 8:47am 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 disease May 03 8:47am Dyslipidemia May 03, 2025 8: 47am Hypertension May 03, 2025 8: 47am Chief Complaint Admit Date WOUND CENTER PROTOCOL March 28, 2025 12 :26pm LE WOUND March 28, 2025 12:3 4pm OVERDUE FU May 03, 2025 8: 47am Discuss Mapping Results June 15 8:32am Additional Source Comments (unrecognized sect ion and content) No Status Records FoundNo Status Records FoundNo Status Records FoundNo Status Records FoundNo Status Records FoundNo Status Records Found INFORMATION SOURCE (unrecogn ized section and content) DATE CREATED AUTHOR 08/22/2018 [facility] DATE CREATED AUTHOR AUTHOR'S ORGANIZ ATION 08/24/2018 [facility] DATE CREATED AUTHOR AUTHOR'S ORGANIZ ATION 02/27/2024 [facility] ([place]) DATE CREATED AUTHOR AUTHOR'S ORGANIZ ATION 05/30/2025 [facility] DATE CREATED AUTHOR AUTHOR'S ORGANIZ ATION 06/19/2025 [facility] DATE CREATED AUTHOR AUTHOR'S ORGANIZ ATION 07/15/2025 [facility] Goals (unrecognized section and content) Goals may be documented in a n alternate sectionGoals may be documented in an alternate sectionGoals may be documented in an alternate section No data available for this section No data available for this sectionGoals may be documented in an alternate sectionGoals may be documented in an alternate section No data available for this sectionGoals may be documented in an alternate sectionGoals may be documented in an alternate sectionGoals may be documented in an alternate sectionGoals may be documented in an alternate sectionGoals may be documented in an alternate sectionGoals may be documented in an alternate sectionGoals may be documented in an alternate section No data available for this section No data available for this sectionGoals may be documented in an alternate sectionGoals may be documented in an alternate sectionGoals may be documented in an alternate sectionGoals may be documented in an alternate section Care Team (unrecognized sect ion and content) Care Team Personnel Name: DANIELLE PAINTER Position: P4 Advanced Practice Nurse Med Service: Active Provider Member Role: Primary Care Physician Address: Address: [address] [place] [address]- [place] Care Team Related Persons Name: MARK GILL Care Team Personnel Name: MAYA PRADHAN DO Member Role: Primary Care Physician Address: Address: [address] [place] [address] [place] [id number] Care Team Related Persons Name: MARK GILL Care Teams (unrecognized sec tion and content) Team Status: Active Member Role Status Dates Dr. Maya Pradhan DO Family Provider Active Dr. Maya Pradhan DO Primary Care Provider Active Team Status: Inactive Member Role Status Dates Dr. Maya Pradhan DO Primary Care Provider, Referring P rovider Active Kasia Childs PA, PA Attending Provider Active Team Status: Active Member Role Status Dates Dr. Maya Pradhan DO Primary Care Provider Active Dr. Chema Payan MD Attending Provider Active Team Status: Inactive Member Role Status Dates Dr. Maya Pradhan DO Primary Care Provider Active Kasia Childs PA, PA Attending Provider, Referr ing Provider Active Team Status: Inactive Member Role Status Dates Dr. Maya Pradhan DO Primary Care Provider, Referring P rovider Active Aretha Vasquez NP, MILLWRIGHT HELPER-C Attending Provider Active Team Status: Active Member Role Status Dates Dr. Maya Pradhan DO Primary Care Provider Active Dr. Chema Payan MD Attending Provider Active Kasia Childs PA, PA Referring Provider Active Team Status: Inactive Member Role Status Dates Dr. Maya Pradhan DO Primary Care Provider, Attending P rovider Active Team Status: Inactive Member Role Status Dates Dr. Maya Pradhan DO Primary Care Provide r, Attending Provider, Referring Provider Active Team Status: Inactive Member Role Status Dates Dr. Maya Pradhan DO Primary Care Provider, Referring P rovider Active Dr. Alex Crooks MD Attending Provider Active Team Status: Active Member Role Status Dates Dr. Maya Pradhan DO Primary Care Provider Active Dr. Alex Crooks MD Attending Provider, Referring Pr ovider Active Team Status: Active Member Role Status Dates Dr. Maya Pradhan DO Primary Care Provider Active Liz Romero MILLWRIGHT HELPER, MILLWRIGHT HELPER-C Attending Provider Active Team Status: Inactive Member Role Status Dates Dr. Maya Pradhan DO Primary Care Provider Active Dr. Alex Crooks MD Attending Provider, Referring Pr ovider Active Team Status: Active Member Role Status Dates Dr. Maya Pradhan DO Primary Care Provider, Attending P rovider Active Team Status: Inactive Member Role Status Dates Dr. Maya Pradhan DO Primary Care Provider, Referring P rovider Active RADHA Ibrahim Attending Provider Active Team Status: Active Member Role Status Dates Dr. Maya Pradhan DO Primary Care Provider Active Dr. Claude Boyd DO Emergency Provider Active Dr. Emmett Patten , DO Admit Provider, Attending Pr ovider Active Team Status: Active Member Role Status Dates Dr. Maya Pradhan DO Primary Care Provider Active Dr. Claude Boyd , DO Emergency Provider Active Dr. Emmett Patten , DO Admit Provider, Other Provid er Active Dr. Stewart Dukes MD Attending Provider, Other Provi piper Active Dr. Alfonso Jade MD Other Provider Active Team Status: Active Member Role Status Dates Dr. Maya Pradhan DO Primary Care Provider Active Dr. Claude Boyd , DO Emergency Provider Active Dr. Emmett Patten , DO Admit Provider, Other Provid er Active Dr. Alfonso Jade MD Other Provider Active Dr. Chema Zambrano , DO Attending Provider, Other Provid er Active Dr. Stewart Dukes MD Other Provider Active Team Status: Inactive Member Role Status Dates Dr. Maya Pradhan DO Primary Care Provider Active Dr. Claude Boyd , DO Emergency Provider Active Dr. Emmett Patten , DO Admit Provider, Other Provid er Active Dr. Alfonso Jade MD Other Provider Active Dr. Chema Zambrano , Attending Provider Active Dr. Stewart Dukes MD Other Provider Active Team Status: Inactive Member Role Status Dates Dr. Maya Pradhan DO Primary Care Provider, Referring P rovider Active Dr. Chema Payan MD Attending Provider Active Team Status: Inactive Member Role Status Dates Dr. Maya Pradhan DO Primary Care Provider Active Larisa Gay MILLWRIGHT HELPER, MILLWRIGHT HELPER-C Attending Provider Active Team Status: Active Member Role Status Dates Dr. Maya Pradhan DO Primary Care Provider Active Dr. Chema Payan MD Attending Provider, Referring Provider, Other Provider Active Team Status: Active Member Role Status Dates Dr. Maya Pradhan DO Primary Care Provider Active Pavan SUAZO MD Attending Provider Active Team Status: Inactive Member Role Status Dates Dr. Maya Pradhan DO Primary Care Provider Active Dr. Chema Payan MD Attending Provider, Referring Pro vider Active Millinery Copyist Relationship Specialty Start Date End Date Maya Pradhan DO [address] [place], [place] [id number] PCP - General Family Medicine 06/11/18 Team Status: Inactive Member Role Status Dates Dr. Maya Pradhan DO Primary Care Provider, Referring P roadarshder Active Arnol Lynch PA, PA Attending Provider Active Team Status: Inactive Member Role Status Dates Dr. Maya Pradhan DO Primary Care Provider Active Dr. Alex Crooks MD Attending Provider Active Team Status: Active Member Role Status Dates Dr. Maya Pradhan DO Primary Care Provider Active Dr. Alex Crooks MD Attending Provider , Referring Provider, Other Provider Active Team Status: Active Member Role Status Dates Dr. Maya Pradhan DO Primary Care Provider Active Dr. Alex Crooks MD Attending Provider, Other Provid er Active Team Status: Inactive Member Role Status Dates Dr. Maya Pradhan DO Primary Care Provider Active Carlos Eduardo Hinds MILLWRIGHT HELPER, MILLWRIGHT HELPER-C Attending Provider, Referring Pro vider Active Millinery Copyist Relationship Specialty Start Date End Date JuancarloskaterinMaya DO [address] [place], [place] [id number] PCP - General Family Medicine 06/11/18 Millinery Copyist Relationship Specialty Start Date End Date CarolynnMaya DO [address] [place], [place] [id number] PCP - General Family Medicine 06/11/18 Millinery Copyist Relationship Specialty Start Date End Date CarolynnMaya DO [address] [place], [place] [id number] PCP - General Family Medicine 06/11/18 Millinery Copyist Relationship Specialty Start Date End Date Maya Pradhan DO [address] [place], [place] [id number] PCP - General Family Medicine 06/11/18 Millinery Copyist Relationship Specialty Start Date End Date Maya Pradhan DO [address] [place] [address] PCP - General Family Medicine 06/11/18 Millinery Copyist Relationship Specialty Start Date End Date Maya Pradhan DO [address] [place] [address] PCP - General Family Medicine 06/11/18 Millinery Copyist Relationship Specialty Start Date End Date Maya Pradhan DO [address] [place] [address] PCP - General Family Medicine 06/11/18 Millinery Copyist Relationship Specialty Start Date End Date Maya Pradhan DO [address] [place] [address] PCP - General Family Medicine 06/11/18 Millinery Copyist Relationship Specialty Start Date End Date Maya Pradhan DO [address] [place] [address] PCP - General Family Medicine 06/11/18 Millinery Copyist Relationship Specialty Start Date End Date Maya Pradhan DO [address] [place] [address] PCP - General Family Medicine 06/11/18 Millinery Copyist Relationship Specialty Start Date End Date Maya Pradhan DO [address] [place] [address] PCP - General Family Medicine 06/11/18 Millinery Copyist Relationship Specialty Start Date End Date Maya Pradhan DO [address] [place] [address] PCP - [facility] Medicine 06/11/18 Millinery Copyist Relationship Specialty Start Date End Date Maya Pradhan DO [address] [place] [address] PCP - General [facility] Medicine 06/11/18 Team Status: Active Member Role Status Dates Dr. Maya Pradhan DO Primary Care Provider Active Team Status: Inactive Member Role Status Dates Dr. Maya Pradhan DO Primary Care Provider Active Start: October 31, 2024 End: October 31, 2024 Dr. Ricardo Jones DPM Attending Provider Active Start: October 31, 2024 End: October 31, 2024 Dr. Ricardo Jones DPM Referring Provider Active Start: October 31, 2024 End: October 31, 2024 Team Status: Inactive Member Role Status Dates Dr. Maya Pradhan DO Primary Care Provider Active Start: November 04, 2024 End: November 04, 2024 Dr. Maya Pradhan DO Referring Provider Active St art: November 04, 2024 End: November 04, 2024 RADHA Ibrahim Attending Provider Active Star t: November 04, 2024 End: November 04, 2024 Team Status: Inactive Member Role Status Dates Dr. Maya Pradhan DO Primary Care Provider Active Start: November 07, 2024 End: November 07, 2024 Dr. Gabe Fragoso DO Attending Provider Active Start : November 07, 2024 End: November 07, 2024 Dr. Gabe Fragoso DO Emergency Provider Active Start : November 07, 2024 End: November 07, 2024 Team Status: Inactive Member Role Status Dates Dr. Maya Pradhan DO Primary Care Provider Active Start: February 13, 2025 End: February 13, 2025 Kasia GARCIA, PA Attending Provider Active Start: February 13, 2025 End: February 13, 2025 Kasia GARCIA, PA Referring Provider Active Start: February 13, 2025 End: February 13, 2025 Millinery Copyist Relationship Specialty Start Date End Date Maya Pradhan DO [address] [facility] [place] [address] PCP - General Family Medicine 06/11/18 Team Status: Active Member Role/Relationship Status Dates Dr. Maya Pradhan DO Primary Care Provider Active Team Status: Inactive Member Role/Relationship Status Dates Dr. Maya Pradhan DO Primary Care Provider Active Start: February 13, 2025 End: February 13, 2025 Kasia GARCIA, PA Attending Provider Active Start: February 13, 2025 End: February 13, 2025 Kasia GARCIA PA Referring Provider Active Start: February 13, 2025 End: February 13, 2025 Team Status: Inactive Member Role/Relationship Status Dates Dr. Maya Pradhan DO Primary Care Provider Active Start: March 28, 2025 End: March 28, 2025 Dr. Ricardo Jones DPM Attending Provider Active Start: March 28, 2025 End: March 28, 2025 Dr. Ricardo Jones DPM Referring Provider Active Start: March 28, 2025 End: March 28, 2025 Millinery Copyist Relationship Specialty Start Date End Date Delicia Swartz MD PCP - General Internal Medicine 02/09/13 Team Status: Active Member Role/Relationship Status Dates Dr. Lamin Ring MD Attending Provider Active Start: March 28, 2025 Dr. Ricardo Jones DPM Referring Provider Active Start: March 28, 2025 Team Status: Inactive Member Role/Relationship Status Dates Dr. Maya Pradhan DO Primary Care Provider Active Start: May 03, 2025 End: May 03, 2025 Dr. Maya Pradhan DO Referring Provider Active St art: May 03, 2025 End: May 03, 2025 Kasia GARCIA PA Attending Provider Active Start: May 03, 2025 End: May 03, 2025 Millinery Copyist Relationship Specialty Start Date End Date Delicia Swartz MD PCP - General Internal Medicine 02/09/13 Millinery Copyist Relationship Specialty Start Date End Date Delicia Swartz MD PCP - General Internal Medicine 02/09/13 Millinery Copyist Relationship Specialty Start Date End Date Delicia Swartz MD PCP - General Internal Medicine 02/09/13 Team Status: Active Member Role/Relationship Status Dates Dr. Maya Pradhan DO Primary care physician Active Team Status: Inactive Member Role/Relationship Status Dates Dr. Maya Pradhan DO Primary care physician Active Start: March 28, 2025 End: March 28, 2025 Dr. Ricardo Jones DPM Attending physician Active Start: March 28, 2025 End: March 28, 2025 Dr. Ricardo Jones DPM Referring Provider Active Start: March 28, 2025 End: March 28, 2025 Team Status: Active Member Role/Relationship Status Dates Dr. Lamin Ring MD Attending physician Active Start: March 28, 2025 Dr. Ricardo Jones DPM Referring Provider Active Start: March 28, 2025 Team Status: Inactive Member Role/Relationship Status Dates Dr. Maya Pradhan DO Primary care physician Active Start: May 03, 2025 End: May 03, 2025 Dr. Maya Pradhan DO Referring Provider Active St art: May 03, 2025 End: May 03, 2025 Kasia GARCIA, PA Attending physician Active Start: May 03, 2025 End: May 03, 2025 Team Status: Inactive Member Role/Relationship Status Dates Dr. Maya Pradhan DO Primary care physician Active Start: June 15, 2025 End: June 15, 2025 Dr. Maya Pradhan DO Referring Provider Active St art: June 15, 2025 End: June 15, 2025 RADHA Ibrahim Attending physician Active Sta rt: June 15, 2025 End: June 15, 2025 Source Comments (unrecognize d section and content) In the event this informatio n is protected by the Federal Confidentiality of Alcohol and Drug Abuse Patient Records regulations: The Federal rules restrict any use of the information to criminally investigate or prosecute any alcohol or drug abuse patient.[facility] the event this information is protected by the Federal Confidentiality of Alcohol and Drug Abuse Patient Records regulations: The Federal rules restrict any use of the information to criminally investigate or prosecute any alcohol or drug abuse patient.[facility] the event this information is protected by the Federal Confidentiality of Alcohol and Drug Abuse Patient Records regulations: The Federal rules restrict any use of the information to criminally investigate or prosecute any alcohol or drug abuse patient.[facility] the event this information is protected by the Federal Confidentiality of Alcohol and Drug Abuse Patient Records regulations: The Federal rules restrict any use of the information to criminally investigate or prosecute any alcohol or drug abuse patient.[facility] the event this information is protected by the Federal Confidentiality of Alcohol and Drug Abuse Patient Records regulations: The Federal rules restrict any use of the information to criminally investigate or prosecute any alcohol or drug abuse patient.[facility] the event this information is protected by the Federal Confidentiality of Alcohol and Drug Abuse Patient Records regulations: The Federal rules restrict any use of the information to criminally investigate or prosecute any alcohol or drug abuse patient.[facility] Hospital[facility] the event this information is protected by the Federal Confidentiality of Alcohol and Drug Abuse Patient Records regulations: The Federal rules restrict any use of the information to criminally investigate or prosecute any alcohol or drug abuse patient.[facility] Hospital[facility] the event this information is protected by the Federal Confidentiality of Alcohol and Drug Abuse Patient Records regulations: The Federal rules restrict any use of the information to criminally investigate or prosecute any alcohol or drug abuse patient.[facility] Hospital[facility] the event this information is protected by the Federal Confidentiality of Alcohol and Drug Abuse Patient Records regulations: The Federal rules restrict any use of the information to criminally investigate or prosecute any alcohol or drug abuse patient.[facility] Hospital[facility] the event this information is protected by the Federal Confidentiality of Alcohol and Drug Abuse Patient Records regulations: The Federal rules restrict any use of the information to criminally investigate or prosecute any alcohol or drug abuse patient.[facility] the event this information is protected by the Federal Confidentiality of Alcohol and Drug Abuse Patient Records regulations: The Federal rules restrict any use of the information to criminally investigate or prosecute any alcohol or drug abuse patient.[facility] Hospital[facility] the event this information is protected by the Federal Confidentiality of Alcohol and Drug Abuse Patient Records regulations: The Federal rules restrict any use of the information to criminally investigate or prosecute any alcohol or drug abuse patient.[facility] HospitalIn the event this information is protected by the Federal Confidentiality of Alcohol and Drug Abuse Patient Records regulations: The Federal rules restrict any use of the information to criminally investigate or prosecute any alcohol or drug abuse patient.[facility] HospitalIn the event this information is protected by the Federal Confidentiality of Alcohol and Drug Abuse Patient Records regulations: The Federal rules restrict any use of the information to criminally investigate or prosecute any alcohol or drug abuse patient.[facility] HospitalIn the event this information is protected by the Federal Confidentiality of Alcohol and Drug Abuse Patient Records regulations: The Federal rules restrict any use of the information to criminally investigate or prosecute any alcohol or drug abuse patient.[facility] HospitalIn the event this information is protected by the Federal Confidentiality of Alcohol and Drug Abuse Patient Records regulations: The Federal rules restrict any use of the information to criminally investigate or prosecute any alcohol or drug abuse patient.[facility] HospitalIn the event this information is protected by the Federal Confidentiality of Alcohol and Drug Abuse Patient Records regulations: The Federal rules restrict any use of the information to criminally investigate or prosecute any alcohol or drug abuse patient.[facility] HospitalIn the event this information is protected by the Federal Confidentiality of Alcohol and Drug Abuse Patient Records regulations: The Federal rules restrict any use of the information to criminally investigate or prosecute any alcohol or drug abuse patient.[facility] HospitalIn the event this information is protected by the Federal Confidentiality of Alcohol and Drug Abuse Patient Records regulations: The Federal rules restrict any use of the information to criminally investigate or prosecute any alcohol or drug abuse patient.[facility] HospitalIn the event this information is protected by the Federal Confidentiality of Alcohol and Drug Abuse Patient Records regulations: The Federal rules restrict any use of the information to criminally investigate or prosecute any alcohol or drug abuse patient.[facility] HospitalIn the event this information is protected by the Federal Confidentiality of Alcohol and Drug Abuse Patient Records regulations: The Federal rules restrict any use of the information to criminally investigate or prosecute any alcohol or drug abuse patient.[facility] HospitalIn the event this information is protected by the Federal Confidentiality of Alcohol and Drug Abuse Patient Records regulations: The Federal rules restrict any use of the information to criminally investigate or prosecute any alcohol or drug abuse patient.[facility] HospitalIn the event this information is protected by the Federal Confidentiality of Alcohol and Drug Abuse Patient Records regulations: The Federal rules restrict any use of the information to criminally investigate or prosecute any alcohol or drug abuse patient.[facility] HospitalIn the event this information is protected by the Federal Confidentiality of Alcohol and Drug Abuse Patient Records regulations: The Federal rules restrict any use of the information to criminally investigate or prosecute any alcohol or drug abuse patient.[facility] HospitalIn the event this information is protected by the Federal Confidentiality of Alcohol and Drug Abuse Patient Records regulations: The Federal rules restrict any use of the information to criminally investigate or prosecute any alcohol or drug abuse patient.[facility] Reason for Visit (unrecogniz ed section and content) Reason Comments palms, groin and feet itch X 2 days Reason Comments Consult Prostate check Reason Comments Patient Question Reason Comments Appointment Reason Comments Established Patient Follow up/urgency Reason Comments Benign Prostatic Hypertrophy BPH with ob struction/lower urinary tract symptoms Reason Comments Rash sore in groin area x 1 year given steriod cream Reason Onset Date Comments Symptoms 09/17/2024 Reason Comments Penis/Scrotum Problem bleeding under for eskin x 3 days Reason Comments Results Reason Comments Rash Bleeding in the groi n x 1 week Reason Comments Difficulty Urinating Reason Comments Wound Check Wound check on penis , states he wants to make sure same is healing, he states he seems to have issues urinating Reason Comments New Patient Patient Question Reason Comments Erectile Dysfunction Urinary Retention Benign Prostatic Hypertrophy Reason Onset Date Comments Results 12/19/2024 Reason Comments Derm Problem bilateral redness an d swelling bilateral x 1 day, yeast Reason Comments Groin Pain bleeding in groin x this am Reason Comments Rash groin area ongoing Reason Comments Follow Up Benign Prostatic Hypertrophy Reason Comments New Patient ED/INCONTINENCE Reason Comments Follow-up Easy Pro 1/ Urocuff Reason Comments Cystoscopy TRUS Specialty Diagnoses / Procedures Referred By Radha rosado Referred To Contact [id number] [place] [address] Referral ID Status Reason Start Date Expiration Date Visits Re quested Visits Authorized [id number] 1 Reason Comments Follow-up Reivew urocuff and c ysto/trus FOR RECORDS PERTAINING TO PATIENTS WHO ARE [...] BE BASED ON THE PRIMARY CLINICAL RECORDS. [facility] [facility]. provides no warranty or guarantee of the accuracy or completeness of information in this document.
[2025-08-03 00:19] LABS: Hematocrit 39.1 % (40-54); Hemoglobin 11.8 g/dL (13.0-16.5); Immature Granulocytes Count 0.030 X10^3/uL (0.0-0.0); Mean Corp Hgb Conc 30.2 g/dL (32-36); Mean Corpuscular Volume 80.8 fL (80-94); Mean Platelet Vol. 10.0 fl (6.2-12.0); NRBC Flagged by Analyzer 0 % (0-5); Platelet Count 264 K/mm3 (150-450); RBC Distribution Width CV 15.6 % (11.6-14.6); RBC Distribution Width SD 45.6 fl (35.1-43.9); Red Blood Count 4.84 M/mm3 (4.6-6.2); White Blood Count 9.2 K/mm3 (4.4-11.0)
--- NOTE | 2025-08-03 00:20 | RAD_ITS ---
PROCEDURE: CHEST 1 VIEW (PORTABLE) 08/03/2025 REASON FOR EXAM: CHEST PAIN TECHNIQUE: Frontal view of the chest. COMPARISON: 11/07/2024. FINDINGS: The lungs are expanded. There is no demonstrated parenchymal abnormality. There is no demonstrated pleural abnormality. Normal heart and pericardium. Normal mediastinum and calin. Normal visualized pulmonary arteries. Normal visualized aortic arch and descending thoracic aorta. Normal visualized thoracic spine. Normal visualized ribs, clavicles, and shoulders. There is no demonstrated abnormality of the visualized soft tissue structures of the upper abdomen. RAD/Chest 1 View (Portable) IMPRESSION: No evidence for acute abnormality. [facility]
--- NOTE | 2025-08-03 00:35 | EDS_ITS ---
HPI History of Present Illness Chief Complaint: Chest Pain Informant: patient Narrative Narrative: Patient is a 74-year-old male with past medical history of hypertension hyperlipidemia insulin-dependent diabetes, obstructive sleep apnea. He states he was at home relaxing/watching TV when he noticed midsternal chest discomfort. He states that there was no radiation of the pain and he denies any nausea vomiting diaphoresis or increased shortness of breath. However he does have a history of CAD that has required stents in the past. He states that he took a home nitro and upon arrival to the ER the pain has completely resolved. He states there is no sick symptoms such as fevers chills congestion or cough. He denies any recent trauma. However as he is concerned this was cardiac in nature he presents for evaluation [facility] Medical History (Updated 08/05/25 @ 03:[address] Vivek Angulo, ) Wound of left lower extremity Hx of back injury (~04/2024) KRISTI (obstructive sleep apnea) BPH (benign prostatic hyperplasia) Venous ulcer of left leg Venous hypertension, chronic, with ulcer and inflammation Chronic venous insufficiency 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-39.9) Acute respiratory failure with hypoxia and hypercarbia Fracture, thoracic vertebra Tinea cruris History of chronic CHF Varicose veins of both legs with edema Lower extremity edema 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 disease Carotid bruit Neck pain Shortness of breath Abnormal nuclear stress test Essential hypertension Inappropriate sexual behavior Hypomagnesemia Muscle cramps Edema Chronic diastolic (congestive) heart failure Atherosclerotic heart disease of [place] coronary artery without angina pectoris History of ST elevation myocardial infarction (STEMI) (07/11/17) Asthma IBS (irritable bowel syndrome) 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.9) Restless legs Hyperlipidemia Diabetes mellitus, type 2 Anxiety Home Medications ?Medication ?Instructions ?Recorded ?Last Taken ?Type metformin 1,000 mg tablet 1,000 mg PO BIDCM diabetes 0 01/17/16 01/25/24 History montelukast 10 mg tablet 10 mg PO QHS allergies 01/1612/07/18 History acetaminophen 325 mg tablet 325 - 650 mg (1 - 2 x 325 mg) PO 07/14/17 Unknown Rx Q6H PRN PRN Pain aspirin 81 mg tablet,delayed 81 mg PO DAILY@0800 #30 t abs 07/14/17 01/26/24 Rx release pramipexole 1 mg tablet 2 mg PO QHS headache 8 12/08/18 21:00 History coenzyme Q10 100 mg capsule 100 mg PO DAILY supplement 12/08/18 12/04/18 History magnesium oxide 400 mg PO DAILY supplement 0 12/08/18 12/08/18 08:00 History fluticasone propionate 50 1 spray intranasal DAILY PRN nasal 04/05/20 Unknown History mcg/actuation nasal spray spray,suspension nitroglycerin 0.4 mg sublingual 0.4 mg sublingual Q5M PRN Angina 11/29/21 Unknown Rx tablet pain #25 tabs vitamin B complex 1 tab PO DAILY 03/14/22 Unkn own History buspirone 10 mg tablet 20 mg PO BID Anxiety 3 Unknown History albuterol sulfate 90 mcg/actuation 2 puff inhalation Q 4H PRN 10/28/23 Unknown Rx aerosol inhaler (Ventolin HFA) shortness of breath or wheezing #18 grams clotrimazole-betamethasone 1 1 applic topical BID 4 we eks #45 11/17/23 Unknown Rx %-0.05 % topical cream grams cholecalciferol (vitamin D3) 50 2,000 unit PO DAILY phillips pplement 12/07/23 Unknown History mcg (2,000 unit) capsule omeprazole 40 mg capsule,delayed 40 mg PO BID 12/07/23 Unknown History release alprazolam 0.25 mg tablet 0.25 mg PO DAILY PRN anxiety 2 05/18/24 Unknown Rx days #7 tabs insulin lispro 100 unit/mL See Protocol subcut ACHS #0 mL 05/18/24 Unknown Rx subcutaneous pen (Humalog KwikPen (U-100) Insulin) tamsulosin 0.4 mg capsule 0.4 mg PO DAILY@1700 #0 caps 05/18/24 Unknown Rx pravastatin 40 mg tablet 40 mg PO DAILY #90 TABLETS 0 09/27/24 Unknown Rx hydroxyzine HCl 25 mg tablet 25 mg PO TID PRN anxiety #20 tabs 11/07/24 Unknown Rx carvedilol 25 mg tablet 25 mg PO BID #180 tabs 01/16 Unknown Rx isosorbide mononitrate 30 mg 30 mg PO DAILY #90 tabs 0 02/10/25 Unknown Rx tablet,extended release 24 hr furosemide 40 mg tablet 40 mg PO .COMPLEX #90 TABLET S 02/21/25 Unknown Rx glyburide 2.5 mg tablet 2.5 mg PO BID 05/03/25 Unkno wn History olanzapine 2.5 mg tablet 2.5 mg PO anxiety 06/15/25 U nknown History evolocumab 140 mg/mL subcutaneous 140 mg subcut Q2W #6 mL 07/27/25 Unknown Rx pen injector (Repatha SureClick) metolazone 2.5 mg tablet 2.5 mg PO .COMPLEX #30 tabs 07/31/25 Unknown Rx insulin NPH isoph U-100 human 100 See Rx Instructions .Route 08/02/25 Unknown History unit/mL subcutaneous suspension .COMPLEX diabetes Allergy/AdvReac Type Severity Reaction Status Date / Time Penicillins Allergy Severe Anaphylaxis Verified 08/02/25 23:50 quinine sulfate (From Quine) Allergy Severe passed out Verified 08/02/25 23:50 benzocaine (From Cetacaine) Allergy Swelling Verified 08/02/25 23:50 butamben (From Cetacaine) Allergy Swelling Verified 08/02/25 23:50 ciprofloxacin HCl (From Allergy Hives Verified 08/02/25 23:50 Cipro) clarithromycin (From Biaxin) Allergy Swelling Verified 08/02/25 23:50 exenatide (From Byetta) Allergy Rash Verified 08/02/25 23:50 folic acid (From Allergy Rash Verified 08/02/25 23:50 Proferrin-Forte) hyoscyamine sulfate (From Allergy Rash Verified 08/02/25 23:50 Levsin) iron heme polypeptide (From Allergy tongue Verified 08/02/25 23:50 Proferrin-Forte) swelling naproxen (From Naprosyn) Allergy Rash Verified 08/02/25 23:50 tetracaine (From Cetacaine) Allergy throat Verified 08/02/25 23:50 swelled shut venlafaxine HCl (From Allergy tongue Verified 08/02/25 23:50 Effexor) swelling ezetimibe (From Zetia) AdvReac Severe Myalgias, Verified 08/02/25 23:50 diarrhea mold AdvReac Severe PT UNSURE Verified 08/02/25 23:50 OF REACTION niacin (From Niaspan AdvReac Severe PT UNSURE Verified 08/02/25 23:50 Extended-Release) OF REACTION procainamide AdvReac Severe Anaphylactic/Resp. Verified 08/02/25 23:50 Distress atorvastatin calcium (From AdvReac Intermediate Mylagias Verified 08/02/25 23:50 Lipitor) levofloxacin AdvReac Intermediate Nausea and Verified 08/02/25 23:50 vomiting rosuvastatin calcium (From AdvReac Intermediate Myalgias Verified 08/02/25 23:50 Crestor) diphenhydramine HCl (From AdvReac Restlessnes Verified 08/02/25 23:50 Benadryl) s Family History Mother Diabetes Hypertension Father Hypotension Brother Hypertension HLD (hyperlipidemia) Grandmother Diabetes Grandfather CVA (cerebral vascular accident) Diabetes Brother Cancer lung Surgical History History of left knee surgery History of vasectomy History of appendectomy History of exploratory laparotomy History of cholecystectomy Stented coronary artery (~01/26/24) History of left heart catheterization (12/06/21) History of coronary artery stent placement (04/13/19) History of dental surgery Status post excision of lipoma Social History Smoking Status: Never smoker second hand exposure: No alcohol intake: never substance use type: does not use caffeine: No seatbelt use: always do you feel safe at home: Yes ROS ROS ED Constitutional Constitutional ED: Denies chills or fever(s) Eyes Eyes: Denies change in vision ENT ENT ED: Denies sore throat Cardiovascular Cardiovascular: Reports chest pain; Denies palpitations or racing heartbeat Respiratory/Chest Respiratory/Chest: Denies cough or dyspnea Gastrointestinal Gastrointestinal: Denies abdominal pain, diarrhea, nausea or vomiting Musculoskeletal Musculoskeletal: Denies back pain Integumentary Denies rash Neurologic Neurologic: Denies headache(s) Psychiatric Psychiatric: Reports anxiety Hematologic/Lymphatic Hematologic/Lymphatic: Denies easy bleeding or easy bruising EXAM Physical Exam Const Vital Signs: 08/02/25 23:49 08/02/25 23:49 08/03/25 00:49 Temperature 98 F Temperature Source Temporal Pulse Rate 84 83 Respiratory Rate 16 16 Respiratory Effort Normal Non-Labored Blood Pressure 137/87 H Blood Pressure Mean 103 Pulse Ox 93 94 Oxygen Delivery Method Nasal Cannula Nasal Cannula Oxygen Flow Rate (L/min) 2 2 08/03/25 01:00 08/03/25 02:00 08/03/25 05:26 Temperature 98.1 F Temperature Source Pulse Rate 85 82 74 Respiratory Rate 18 19 H 19 H Respiratory Effort Blood Pressure 120/58 L 148/81 H 119/60 Blood Pressure Mean 78 103 79 Pulse Ox 97 97 97 Oxygen Delivery Method Nasal Cannula Nasal Cannula Oxygen Flow Rate (L/min) 2 2 Positive well nourished, well developed and obese General Appearance ED: well developed Nutritional Appearance: obese HEENT HEENT Narrative: Normocephalic atraumatic Eyes PERRL and EOMs intact bilaterally General Eye ED: Negative for scleral icterus Neck supple and no JVD Chest Wall palpation of chest normal Chest Narrative: No bony deformity or subcutaneous emphysema noted Resp normal respiratory effort Resp Narrative: Breath sounds are diminished throughout but overall clear to auscultation without signs of respiratory distress Cardio regular rate and regular rhythm Rate: other Other Details: Radial and carotid pulses are equal and symmetric No carotid bruit noted GI non-distended and no masses GI Narrative: Obese soft and nondistended with normal active bowel sounds. There is mild pain with palpation in the midepigastric region without voluntary guarding or rigidity. No pulsatile mass or fluid wave. Auscultation: normoactive bowel sounds Palpation: soft Extremity Extremity Narrative: +2-3 pitting edema to the bilateral lower extremities that is equal and symmetric Neuro oriented x3, CN's II-XII intact bilaterally and no sensory deficits noted Sensorium / Orientation: alert Motor Exam: strength 5/5 throughout Psych mental status grossly normal Skin Skin Narrative: Chronic stasis changes to the bilateral lower extremities No secondary findings to suggest infection MDM MDM MDM Narrative Medical decision making narrative: Patient arrived to the ER with stable vitals. He reported midsternal chest discomfort while at rest but denied other cardiac symptoms such as radiation nausea vomiting diaphoresis or increased shortness of breath. He does have m ultiple risk factors for coronary artery disease however and secondary to this basic labs were obtained. In order to rule out acute coronary syndrome versus cardiac dysrhythmia an EKG was obtained. EKG revealed normal sinus rhythm with right bundle branch block which is chronic in nature but no signs of ischemia. Troponin was 22 initially and 22 at the 2-hour delphine going against ACS. Chest x-ray did not show any signs of pneumonia or pneumothorax or pleural effusion to suggest this as a cause of his symptoms. As he also had some mild midepigastric pain there is concern this could be pancreatitis. However his lipase was not elevated. The patient's blood pressure resolved without medication and he reported being pain-free ever since arrival to the ER. Therefore at this time as patient has stable vitals spontaneous resolution of pain and overall negative workup going against ACS I do not feel the need for further intervention or evaluation in the ER and is otherwise safe for discharge. History & Record Review Discussion w/independent historian: Patient Lab Data Attestation: I reviewed the patient's lab results. Labs: Laboratory Results - last 24 hr 08/02/25 23:53 WBC 9.2 RBC 4.84 Hgb 11.8 L Hct 39.1 L MCV 80.8 MCH 24.4 L MCHC 30.2 L RDW Std Deviation 45.6 H RDW Coeff of Jeanette 15.6 H Plt Count 264 MPV 10.0 Immature Gran % (Auto) 0.300 Neut % (Auto) 68.2 Lymph % (Auto) 17.0 L Rabun % (Auto) 12.0 H Eos % (Auto) 2.1 Baso % (Auto) 0.4 Absolute Neuts (auto) 6.3 Absolute Lymphs (auto) 1.57 Nucleated RBC % 0 Sodium 131 L Potassium 3.9 Chloride 93 L Carbon Dioxide 30.4 Anion Gap 8 BUN 16 Creatinine 1.11 Estim Creat Clear Calc 74.41 Est GFR (MDRD) Non-Af 70 BUN/Creatinine Ratio 14.1 Glucose 122 H Calcium 8.9 Total Bilirubin 0.40 Direct Bilirubin 0.13 AST 19 ALT 15 Alkaline Phosphatase 65 Troponin T High Sens 22 Total Protein 7.5 Albumin 3.6 Globulin 3.9 Lipase 8 L Radiography Diagnostic Testing: Clinical Impression(s) from Imaging Studies Chest X-Ray 08/03/25 00:20 IMPRESSION: No evidence for acute abnormality. Reading Location: [place] [id number] Chest x-ray as interpreted by the emergency medicine physician reveals no acute infiltrate pneumothorax or pleural effusion Discharge Plan Triage Chief Complaint: Chest Pain ED Provider: Vivek Angulo Dx/Rx/DC Orders Clinical Impression: Nonspecific chest pain, Essential hypertension, Hyperlipidemia, Insulin dependent type 2 diabetes mellitus, 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 disease, Congestive heart failure Instructions: ED Chest Pain, Uncertain Cause Prescriptions: No Action buspirone 10 mg tablet 20 mg PO BID vitamin B complex Tablet 1 tab PO DAILY nitroglycerin 0.4 mg tablet, sublingual 0.4 mg SUBLINGUAL Q5M PRN (Reason: Angina pain) Qty: 25 3RF omeprazole 40 mg capsule,delayed release(DR/EC) 40 mg PO BID clotrimazole-betamethasone 1-0.05 % cream 1 applic topical BID 28 Days Qty: 45 1RF glyburide 2.5 mg tablet 2.5 mg PO BID metformin 1,000 MG tablet 1,000 mg PO BIDCM montelukast 10 MG tablet 10 mg PO QHS pramipexole 1 mg tablet 2 mg PO QHS Patient Comments: 1 mg PO 2 tablets by mouth at bedtime Rx Instructions: 1 mg PO 2 tablets by mouth at bedtime fluticasone propionate 50 mcg/actuation spray,suspension 1 spray INTRANASAL DAILY PRN (Reason: nasal spray) acetaminophen 325 MG tablet 325 - 650 mg PO Q6H PRN PRN (Reason: Pain) 0RF aspirin 81 MG tablet 81 mg PO DAILY@0800 Qty: 30 0RF magnesium oxide 400 MG tablet 400 mg PO DAILY coenzyme Q10 100 MG capsule 100 mg PO DAILY cholecalciferol (vitamin D3) 50 mcg (2,000 unit) capsule 2,000 unit PO DAILY hydroxyzine HCl 25 mg tablet 25 mg PO TID PRN (Reason: anxiety) Qty: 20 0RF insulin NPH isoph U-100 human 100 unit/mL suspension See Rx Instructions .ROUTE .COMPLEX Rx Instructions: subcutaneously; 64 units in am, 56 units in hs; Hold if glucose less than 130 mg/dl insulin lispro [Humalog KwikPen Insulin] 100 unit/mL Insulin Pen See Protocol subcut ACHS Qty: 0 0RF Protocol: 4. Sliding Scale Insulin High-Med Dosing Condition: 150-199 mg/dl = 2 units Condition: 200-259 mg/dl = 4 units Condition: 260-324 mg/dl = 6 units Condition: 325-374 mg/dl = 8 units Condition: 375-409 mg/dl = 10 units Condition: 410-449 mg/dl = 11 units Condition: Greater than 449 call physician Protocol Text: Suggested for: - Patients on Total Daily Insulin Dose of 56-80 units - Patient who are known to be insulin resistant or septic HIGH MEDIUM DOSING ALGORITHM tamsulosin 0.4 mg Capsule 0.4 mg PO DAILY@1700 Qty: 0 0RF alprazolam 0.25 mg tablet 0.25 mg PO DAILY PRN (Reason: anxiety) 2 Days Qty: 7 0RF Patient Comments: for anxiety albuterol sulfate [Ventolin HFA] 90 mcg/actuation HFA aerosol inhaler 2 puff INHALATION Q4H PRN (Reason: shortness of breath or wheezing) Qty: 18 6RF pravastatin 40 mg tablet 40 mg PO DAILY Qty: 90 3RF carvedilol 25 mg tablet 25 mg PO BID Qty: 180 3RF Rx Instructions: must administer with a meal/food isosorbide mononitrate 30 mg tablet extended release 24 hr 30 mg PO DAILY Qty: 90 3RF furosemide 40 mg tablet 40 mg PO .COMPLEX Qty: 90 11RF Rx Instructions: 40 mg orally 2 tablets in the AM and 1 tablet in the afternoon; Repatha SureClick 140 mg/mL pen injector 140 mg subcut Q2W Qty: 6 3RF metolazone 2.5 mg tablet 2.5 mg PO .COMPLEX Qty: 30 3RF Rx Instructions: 2.5 mg orally Thursday and ; Primary Care Provider: Maya Pradhan Referrals: Maya Pradhan DO [Primary Care Provider, Family Practice] Print Language: Tunisian Disposition Disposition: Home, Self Care Discharge Date/Time: 08/03/25 03:10
[2025-08-03 00:41] LABS: Lipase 8 U/L (13-75); Troponin T High Sensitivity 22 ng/L (<=22)
[2025-08-03 00:49] VITALS: PULSE 83; RESP 16; O2SAT 94
[2025-08-03 00:53] LABS: AST(SGOT) 19 U/L (<=37); Alanine Aminotransfer ALT/SGPT 15 U/L (<=46); Albumin, Serum 3.6 g/dL (3.4-4.8); Alkaline Phosphatase 65 U/L (40-129); Anion Gap 8 (5-15); BUN 16 mg/dL (4-19); BUN/Creat Ratio 14.1 RATIO (10-20); Bilirubin, Direct 0.13 mg/dL (0.00-0.30); Calcium,Total 8.9 mg/dL (7.6-11.0); Carbon Dioxide 30.4 mmol/L (21.0-32.0); Chloride 93 mmol/L (98-108); Estimated Creatinine Clearance 74.41 ml/min (50-250); Globulin 3.9 g/dL (2.2-4.2); Glucose 122 mg/dL (70-99); Potassium 3.9 mmol/L (3.3-5.1)
[2025-08-03 01:00] VITALS: BP 120/58; PULSE 85; RESP 18; O2SAT 97
[2025-08-03 02:00] VITALS: BP 148/81; PULSE 82; RESP 19; O2SAT 97
[2025-08-03 05:26] VITALS: BP 119/60; PULSE 74; RESP 19; TEMP 36.7; O2SAT 97
--- NOTE | 2025-08-03 05:27 | ED.RN ---
See downtime charting.
[2025-08-03 06:14] LABS: Troponin T High Sens 2 HR 22 ng/L (<=22)
== END 2025-08-03 03:10 | disposition home or self-care (01) ==
LOC: ED 08-03 00:13
PROVIDERS: Emergency Provider Emergency Medicine; PCP Family Medicine; Visit Provider Emergency Medicine
DX: R07.89 Other chest pain (principal); I11.0 Hypertensive heart disease with heart failure; I50.32 Chronic diastolic (congestive) heart failure; E11.9 Type 2 diabetes mellitus without complications; Z79.4 Long term (current) use of insulin; I45.10 Unspecified right bundle-branch block; E78.5 Hyperlipidemia, unspecified; I25.10 Atherosclerotic heart disease of native coronary artery without angina pectoris; R10.13 Epigastric pain; E66.9 Obesity, unspecified
CPT/HCPCS: 71045; 80048; 80076; 83690; 84484; 85025; 93005; 99285; A4216

== ENCOUNTER → 2025-08-15 | Outpatient (CLI) | payer MEDICARE, SELFPAY ==
[2024-05-06 07:26] VITALS: BMI 38.2
--- OUTSIDE RECORDS SUMMARY | 2025-08-15 06:08 | XMS RPT_ITS | CCD ---
Author Organization [facility] CliniSywv Care Team Providers Care Body Liner Name Role Phone Alfonzo Lloyd Craig Unavailable [...] Unavailable Dr. Maya Pradhan Primary Care Provider [phone] Dr. Maya Pradhan Referring Provider [phone] Christina SEPTIC TANK CLEANER, SEPTIC TANK CLEANER-C Aretha Attending Provider Roof SEPTIC TANK CLEANER, SEPTIC TANK CLEANER-C Carlos Eduardo Grande Referring Provider Roof SEPTIC TANK CLEANER, SEPTIC TANK CLEANER-C Carlos Eduardo Grande Other Provider Dr. Yuval Ayala Attending Provider Roof SEPTIC TANK CLEANER, SEPTIC TANK CLEANER-C Carlos Eduardo Grande Attending Provider Dr. Maya Pradhan Primary Care Provider Dr. Maya Pradhan Referring Provider Nick SEPTIC TANK CLEANER, SEPTIC TANK CLEANER-C Liz Attending Provider DANIELLE RADER Primary Care Physician DR MAYA PRADHAN DO Primary Care Physician Dr. Maya Pradhan Primary Care Provider Dr. Maya Pradhan Referring Provider Naz GARCIA, RADHA Rosenberg Attending Provider Dr. Chema Payan Attending Provider Dr. Maya Pradhan Primary Care Provider [phone] Maya Pradhan Referring Provider RADHA Alvarado Attending Provider Dr. 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 Maya Pradhan Primary Care Provider [phone] Maya Pradhan Referring Provider Dr. Maya Pradhan Primary Care Provider [phone] Maya Pradhan Referring Provider [phone] Dr. Alex Crooks Attending Provider Dr. Alex Crooks Referring Provider Nick CARTER, SEPTIC TANK CLEANER-C Liz Attending Provider RADHA Goldman Attending Provider Dr. Maya Pradhan Primary Care Provider [phone] Alex Crooks Attending Provider Dr. Alex Crooks Referring Provider Nick CARTER, SEPTIC TANK CLEANER-C Liz Attending Provider Dr. Maya Pradhan Referring Provider [phone] RADHA Goldman Attending Provider Dr. Claude Boyd Emergency Provider Dr. Emmett Patten Admit Provider Unavailabl e Dr. Emmett Patten Other Provider Unavailabl e Dr. Stewart Dukes Attending Provider Dr. Stewart Dukes Other Provider Dr. Alfonso Jade Other Provider Dr. Chema Zambrano Attending Provider Dr. Chema Zambrano Other Provider Dr. Maya Pradhan Primary Care Provider Dr. Maya Pradhan Referring Provider Deidra SEPTIC TANK CLEANER, SEPTIC TANK CLEANER-C Larisa Attending Provider Dr. Chema Payan Attending Provider [phone]([phone] Chema Payan Referring Provider Dr. Chema Payan Other Provider Maya Pradhan DO Primary Care Provider Dr. Maya Pradhan Primary Care Provider Dr. Maya Pradhan Referring Provider [phone]([facility])[phone] Chema Payan Attending Provider 1([facility])-[phone] Chema Payan Referring Provider 1([facility])-[phone] Chema Payan Other Provider RADHA Goldman Attending Provider [phone] Christina SEPTIC TANK CLEANER, SEPTIC TANK CLEANER-C Aretha Attending Provider RADHA Carson Attending Provider Dr. Alex Crooks Attending Provider Dr. Maya Pradhan Primary Care Provider [phone]([phone] hCema Payan Attending Provider 1([facility])[phone] Maya Pradhan Referring Provider [phone] [...] Provider Karen JOSE, Dr. Silva Attending Provider [phone] Karen JOSE, Dr. Silva Referring Provider Carolynn COBIAN, Dr. Trejo Referring Provider Ruth Pulido Attending Provider Clinton COBIAN, Dr. Bernal Attending Provider [phone] Clinton COBIAN, Dr. Bernal Emergency Provider Kasia Alvarado Attending Provider Kasia Alvarado Referring [...] Alvarado Attending Physician Ruth Pulido Attending Physician [phone] Malys, Maya Primary Care Unavailable Malys, Maya Referring Unavailable Ruth Goldman Attending Unavailable Malys, Maya Primary Care Unavailable Malys, Maya Referring Unavailable Kasia Alvarado Attending Unavail able Malys, Maya Primary Care Unavailable Malys, Maya Referring Unavailable Christina SEPTIC TANK CLEANERAretha Attending Unavailable KarenRicardo maddox Referring Unavailable KarenRicardo maddox Attending Unavailable Malys, Maya Primary Care Unavailable Roof SEPTIC TANK CLEANER, Carlos Eduardo H Referring Unavailable Roof SEPTIC TANK CLEANER, Carlos Eduardo Grande Attending Unavailable Malys, Maya Primary Care Unavailable Malys, Maya Primary Care Unavailable Gabe Fragoso Attending Unavailable Malys, Maya Primary Care Unavailable Anuel Colon Attending Unavailabl e Malys, Maya Referring Unavailable Kasia Alvarado Attending Unavail able Malys, Maya Primary Care Unavailable KarenRicardo maddox Referring Unavailable KarenRicardo maddox Attending Unavailable Malys, Maya Primary Care [...] Unavailable Malys, Maya Primary Care Unavailable Christina SEPTIC TANK CLEANER, Aretha Referring Unavailable Christina SEPTIC TANK CLEANER, Aretha Attending Unavailable Malys, Maya Primary Care [...] Translations: [Cetacaine] Drug Allergy Facial swelling (finding) [facility] (6 sources) diphenhydrAMINE; Translations: [Benadryl] Drug Allergy Lightheadedness (finding) [facility] (1 source) guaiFENesin / Pseudoephedrine; Translations: [Profen Forte] Drug Allergy AOF [facility] (6 sources) Hyoscyamine; Translations: [Levsin] Drug Allergy AOF, [facility] Repository (6 sources) Naproxen; Translations: [Naprosyn] Drug Allergy Weal (disorder) [facility] (6 sources) Penicillin; Translations: [penicillin] Drug Allergy AOF, [facility] Rep[facility] (6 sources) quiNINE; Translations: [quiNINE] Drug Allergy AOF, [facility] (6 sources) venlafaxine; Translations: [Effexor] Drug Allergy AOF, [facility] Rep[facility] (20 sources) atorvastatin; Translations: [atorvastatin] Drug Allergy 03-18-20 22 Muscle pain (finding) [facility] (18 sources) Benzocaine Drug Allergy 11-30-19 22 Swelling [facility] (20 sources) butamben; Translations: [butamben topical] Drug Allergy 11-30-19 22 Swelling (finding) [facility] (19 sources) Ciprofloxacin; Translations: [ciprofloxacin HCl] Drug Allergy 11-30-19 22 Hives [facility] Comment on above: TONGUE SWELLS (20 sources) Clarithromycin; Translations: [clarithromycin] Drug Allergy 12-19-19 11 Swelling (morphologic abnormality), Swelling, Shortness of Breath [facility] (20 sources) diphenhydrAMINE; Translations: [diphenhydramine HCl] Drug Allergy 12-19-19 11 Other: See Comments [facility] (20 sources) exenatide; Translations: [exenatide] Drug Allergy 10-14-19 14 Eruption of skin (disorder), Swelling, GI Upset, Other: See Comments [address] [facility] (20 sources) ezetimibe; Translations: [ezetimibe] Drug Allergy 11-30-19 22 Diarrhea (finding), Muscle pain (finding) [address] [facility] (20 sources) Folic Acid; Translations: [folic acid] Drug Allergy 11-30-19 22 Eruption of skin (disorder) [address] [facility] (20 sources) Hyoscyamine; Translations: [Hyoscyamine] Drug Allergy 12-19-19 11 Eruption of [facility] (disorder), [facility] Naproxen; Translations: [naproxen] Drug Allergy 12-19-19 11 Eruption of skin (disorder), Swelling, Itching [address] [facility] (3 sources) Niacin Drug Allergy 11-30-19 22 Unsure [facility] Work Phone: (20 sources) Penicillins; Translations: [Penicillins] Allergy to substance 12-19-19 11 Anaphylaxis [facility] (20 sources) Procainamide; Translations: [procainamide] Drug Allergy 11-30-19 22 Anaphylactic/Resp. Distress, Unknown [facility] (19 sources) quiNINE; Translations: [quinine sulfate] Drug Allergy 11-30-19 22 passed out [facility] (20 sources) rosuvastatin; Translations: [rosuvastatin] Drug Allergy 11-30-19 22 Muscle pain (finding) [facility] (20 sources) Tetracaine; Translations: [tetracaine] Drug Allergy 11-30-19 Pharyngeal swelling (finding) [facility] (19 sources) venlafaxine; Translations: [venlafaxine HCl] Drug Allergy 11-30-19 tongue swelling [facility] (19 sources) iron heme polypeptide; Translations: [iron heme polypeptide] Allergy to substance 11-30-19 tongue swelling [facility] (3 sources) aspergillus Propensity to adverse reactions 11-30-19 22 Unknown [facility] Work Phone: (5 sources) Allantoin / Benzocaine / Camphor / Petrolatum; Translations: [benzocaine topical] Drug Allergy Swelling (morphologic abnormality) [facility] (5 sources) Ciprofloxacin; Translations: [ciprofloxacin] Drug Allergy Pharyngeal swelling (finding) [facility] (5 sources) diphenhydrAMINE; Translations: [diphenhydramine] Drug Allergy Unknown [facility] (20 sources) Lidocaine; Translations: [lidocaine] Drug Allergy 02-10-[address] [facility] (20 sources) Niacin; Translations: [niacin] Drug Allergy 09-18-19 23 Headache (finding) [facility] (5 sources) SITagliptin; Translations: [sitagliptin] Drug Allergy Unknown [facility] (5 sources) venlafaxine; Translations: [venlafaxine] Drug Allergy Tongue swelling (finding) [facility] (15 sources) Mold Extract Drug Allergy 09-18-19 23 PT UNSURE OF REACTION [facility] Comment on above: FROM ASPERGILLUS (20 sources) Aspergillus fumigatus allergenic extract; Translations: [ASPERGILLUS FUMIGATUS ALLERGENIC EXTRACT] Drug Allergy 12-19-19 11 Unknown [facility] Work Phone: (20 sources) quiNINE; Translations: [QUININE HCL] Drug Allergy 12-19-19 11 Unknown [facility] Work Phone: (4 sources) levoFLOXacin Drug Allergy 11-07-19 25 Nausea and vomiting [facility] (4 sources) Clarithromycin Propensity to adverse reactions to drug 02-10-20 13 [facility] (4 sources) Anesthetics, Amide Propensity to adverse reactions to drug 02-10-20 13 [facility] (4 sources) Butamben-Tetracai ne-Benzocaine Propensity to adverse reactions to drug 02-10-20 13 [facility] (4 sources) Quinine Hydrochloride Dihydrate Propensity to adverse reactions to drug 02-10-20 13 [facility] (1 source) Benzocaine Drug Allergy 06-15-20 [facility] (1 source) butamben Drug Allergy 06-15-20 [facility] (1 source) Clarithromycin Drug Allergy 06-15-20 [facility] (1 source) exenatide Drug Allergy 06-15-20 [facility] (1 source) ezetimibe Drug Allergy 06-15-20 [facility] (1 source) Folic Acid Drug Allergy 06-15-20 [facility] (1 source) levoFLOXacin Drug Allergy 06-15-20 25 [facility] (1 source) Mold Extract Drug Allergy 06-15-20 [facility] (1 source) Naproxen Drug Allergy 06-15-20 [facility] (1 source) Niacin Drug Allergy 06-15-20 25 [facility] (1 source) Procainamide Drug Allergy 06-15-20 [facility] (1 source) Tetracaine Drug Allergy 06-15-20 [facility] Medications Current Medications Medication Drug [...] (ASTELIN, ASTEPRO) 0.1% nasal spray Use 1 [place] in the nose two times a day. Use in each nostril as directed Active Comment on above: Use 1 [place] in the n ose twice daily. Use [...] Comment on above: Take 1 tablet [facility] for 7 days. cholecalciferol [...] day(s), # 45 gram(s), 0 Refill(s), Pharmacy: [facility], Cream, 172, cm, 07/28/22 10:04:00 [...] (FLONASE) 50 mcg/actuation nasal spray Use 1 [place] in each nostril once daily. Active Comment on above: Use 1 [place] in each nostril once daily. 60 actuat [...] tab(s), 0 Refill(s), 05/07/22 14:01:00 EDT, Pharmacy: [facility], BPH with obstruction/lower urinary tract [...] TID, # 30 gram(s), 1 Refill(s), Pharmacy: [facility], Powder, 168, cm, 11/18/23 14:21:00 EST, Height, 106, kg, 11/18/23 14:21:00 EST, Dosing Weight Start Date: 11/18/23 Stop Date: 11/28/24 Status: Ordered Start: 01-02-2023 End: 01-04-2024 nystatin 100,000 units/g top ical cream Apply 1 chandler, Topical, BID, # 30 gram(s), 2 Refill(s), Pharmacy: [facility], Cream, 170, cm, 01/02/23 7:07:00 [...] 14, 2017 10:27am October 23, 2017 10:31am [id number] 200 actuat albuterol 0.09 mg/actuat metered dose [...] QID, # 450 mL, 2 Refill(s), Pharmacy: [facility], Diabetes mellitus, 171.5, cm, 04/30/22 [...] cap(s), 0 Refill(s), 05/06/22 15:06:00 EDT, Pharmacy: [facility], Cutaneous candidiasis, 171.5, cm, 04/30/22 13:14:00 EDT, Height, 104.9, kg, 04/30/22 13:14:00 EDT, Dosing Weight Start Date: 04/30/22 Stop Date: 05/06/22 Status: Ordered Start: 03-20-2021 End: 07-11-2022 Diflucan 150 mg oral tablet Dose : 150 mg = 1 tab(s), Oral, q72h, # 3 tab(s), 1 Refill(s), Pharmacy: [facility], 172.7, cm, 02/15/21 8:21:00 EDT, [...] 2018 6:22pm October 12, 2020 11:09am nystatin [id number] unt/ml / triamcinolone acetonide 1 mg/ml topical [...] day(s), # 60 tab(s), 0 Refill(s), Pharmacy: [facility], 170, cm, 01/02/23 7:07:00 EDT, [...] 1 capsule by mouth once daily Coenzyme K78-Extiiog E 1 EACH capsule Discontinued 0 NMA PO DAILY January 17, 2016 12:00am May 07, 2018 11:16am arthritis Start: 01-17-2016 End: 05-07-2018 Coenzyme X59-Gzkbgme E Disco ntinued 0 EACH PO DAILY [...] above: ALEXANDRO Mid LAD using On yx [place] 2.25x12 mm 01/26/24 Genitourinary symptoms and ill-defined [...] Test Name Value Interpretation Reference Range Facility [facility] 07-13-2025 [facility] Office Visit ([facility]) -------- BLANCA GILL ([id number]) 1950 M Date Time Provider Department 07/13/25 [...] kg/m? Physical Exam Exam conducted with a egg separator present (Jorge Herndon CNP present for exam). 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 Normal [facility] MR/BMS.Anastacio 06-15-2025 MR/BMS.BVS [facility] [address] [place] [address] OFFICE VISIT Date of Service: 06/15/25 MR#: [id number] Acct: [id number] Name: BLANCA GILL Rep #: [id number] : 1950 Provider: RADHA Ibrahim Age/Sex: 74/M Location: [facility] Status: Signed Intake Vital Signs 11/07/24 04:02 [...] TABLETS (more content not included)... Normal [facility] PSA, SCREENINGon 05-29-2025 Prostate specific Ag [Mass/Vol] 1.620 ng/mL [facility] Comment on above: OBTAIN BASELINE BETWEEN AGES OF 45-75 LESS THAN 1.0 ng/mL REPEAT TESTING AT 2-4 YEARS 1.0-3.0 ng/mL REPEAT TESTING AT 1-2 YEARS GREATER THAN 3.0 ng/mL REPEAT PSA,CHULA, AND WORKUP FOR BENIGN DISEASE AGE GREATER THAN 75, PSA LESS THAN 3 ng/mL REPEAT TESTING IN 1-4 YEARS Patient results determined by testing on the [employer] 7600 analyzer by immunometric method. This assay may not be comparable using a different instrument assembler or method. [facility] PSA,TOTALon 05-29-2025 PSA,TOTAL 1.620 NG/ML Normal 0.0-4.0 [facility] Comment on above: Result Comment: OBTAIN BASELINE BETWEEN AGES OF 45-75 LESS THAN 1.0 ng/mL REPEAT TESTING AT 2-4 YEARS 1.0-3.0 ng/mL REPEAT TESTING AT 1-2 YEARS GREATER THAN 3.0 ng/mL REPEAT PSA,CHULA, AND WORKUP FOR BENIGN DISEASE AGE GREATER THAN 75, PSA LESS THAN 3 ng/mL REPEAT TESTING IN 1-4 YEARS Patient results determined by testing on the [employer] 7600 analyzer by immunometric method. This assay may not be comparable using a different instrument assembler or method. Performed By: #### P SA #### [place] [address] CYSTOSCOPYon 05-19-2025 Jeremías Fajardo MD 05/19/2025 12:49 [...] was obtained. Does this procedure require a Fackler Protocol? Yes. Fackler Protocol is required. Urine was collected for [...] or infection depending on the clinical presentation. [facility] No Panel Informationon 05-19 [facility] Radiology Study observation (narrative) [facility] POCT URINE DIPSTICK AUTOMATE Don 05-19-2025 Amorphous sediment LM Ql (Urine sed) [facility] Appearance (U) clear [facility] Bacteria LM Ql (Urine sed) [facility] Bilirubin Ql (U) Negative [facility] Casts LM.LPF (Urine sed) [#/Area] [facility] Color (U) yellow [facility] Crystals LM Nom (Urine sed) [facility] Epithelial cells.squamous LM.HPF (Urine sed) [#/Area] [facility] Flow cytometry specialist review Boom (Unsp spec) [Interp] [facility] Glucose Auto test strip (U) [Mass/Vol] Negative mg/dL [facility] Ketones [Mass/Vol] Negative mg/dL [facility] Leukocyte esterase Qn (U) [facility] Leukocyte esterase Test strip Ql (U) Negative [facility] Microscopic observation Gram stain Nom (Bronch spec) [facility] Nitrite Ql (U) Negative [facility] pH (U) 5.5 [pH] 5 - 7 [facility] Protein Ql (U) Negative mg/dL [facility] RBC LM.HPF (Urine sed) [#/Area] [facility] RBC Ql (U) Negative [facility] Specific gravity (U) [Rel density] 1.015 1.001 - 1.035 [facility] Transitional cells LM Ql (Urine sed) [facility] Urobilinogen Qn (U) 0.2 [facility] WBC LM.HPF (Urine sed) [#/Area] [facility] TRANSRECTAL ULTRASOUNDon Jeremías Fajardo MD 05/19/2025 [...] UroLift vs Aquablation, briefly explained. Literature provided. [facility] Cardiology Visit Reporton Cardiology Visit Report [facility] 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 Normal [facility] US RENAL RETROPERITONEALon 0 04-24-2025 US [...] infection depending on the clinical presentation. Normal [facility] US SCROTUM AND TESTICLES WIT H DOPPLERon [...] left hydrocele. 4. Small bilateral varicoceles. Normal [facility] POCT URINALYSIS DIPSTICK AUT OMATED W/O SCOPon 04-17-2025 Amorphous sediment LM Ql (Urine sed) [facility] Appearance (U) clear [facility] Bacteria LM Ql (Urine sed) [facility] Bilirubin Ql (U) Negative [facility] Casts LM.LPF (Urine sed) [#/Area] [facility] Color (U) yellow [facility] Crystals LM Nom (Urine sed) [facility] Epithelial cells.squamous LM.HPF (Urine sed) [#/Area] [facility] Flow cytometry specialist review Boom (Unsp spec) [Interp] [facility] Glucose Auto test strip (U) [Mass/Vol] 100 mg/dL [facility] Ketones [Mass/Vol] Negative mg/dL [facility] Leukocyte esterase Qn (U) [facility] Leukocyte esterase Test strip Ql (U) Negative [facility] Nitrite Ql (U) Negative [facility] pH (U) 6.5 [pH] 5 - 7 [facility] Protein Ql (U) Negative mg/dL [facility] RBC LM.HPF (Urine sed) [#/Area] [facility] RBC Ql (U) Negative [facility] Specific gravity (U) [Rel density] 1.01 1.001 - 1.035 [facility] Transitional cells LM Ql (Urine sed) [facility] Urobilinogen Qn (U) 0.2 [facility] WBC LM.HPF (Urine sed) [#/Area] [facility] Arterial study reportOrdered By: Lamin Ring on 03-28-2025 Noninvasive arteriosclerosis study report [facility] [address] [place] [id number] Lower Ext Art Exam w/o Exercis 03/28/25 1234 MR#: [id number] Acct: [id number] Name: BLANCA GILL Rep #:[id number] : 1950 74 From: Lamin Rign MD Attending Dr: Dr. Ricardo Jones, DPChet [...] Date Dictated: 03/28/25 1234 Date Transcribed: 03/28/252101 Toppiece Chopper: Signed [facility] Work Phone: Lower Ext Art Exam w/o Exerc sarah 03-28-2025 Lower Ext Art Exam w/o Exercis [facility] [address] [place] [address] Lower Ext Art Exam w/o Exercis 03/28/25 1234 MR#: [id number] Acct: [id number] Name: BLANCA GILL Rep #: [id number] : 1950 74 From: Lamin Ring MD Attending Dr: Dr. Ricardo Jones DPM Status: R EG CLI Ordering Dr: Ricardo Jones DPM Date: 03/28/25 Location: [facility] Sex: M C Admitted: Reason [...] Date Dictated: 03/28/25 1234 Date Transcribed: 03/28/252101 Toppiece Chopper: Signed Normal [facility] Venous Duplex US - Bonifacio Extre [facility] 03-28-2025 Venous Duplex US - Bonifacio Extrem [facility] [address] [place] [address] Venous Duplex US - Bonifacio Extrem 03/28/25 1241 MR#: [id number] Acct: [id number] Name: BLANCA GILL Rep #: [id number] : 1950 74 From: Lamin Ring MD [...] Date Dictated: 03/28/25 1241 Date Transcribed: 03/28/252109 Toppiece Chopper: Signed Normal [facility] Venous duplex ultrasound rep ortOrdered By: Lamin Ring on 03-28-2025 US Vein [facility] [address] [place] [address] Venous Duplex US - Bonifacio Extrem 03/28/251240 MR#: [id number] Acct: [id number] Name: BLANCA GILL Rep #:[id number] : 1950 74 From: Lamin Ring MD [...] Date Dictated: 03/28/25 1241 Date Transcribed: 03/28/252109 Toppiece Chopper: Signed [facility] Work Phone: Blue 03-21-2025 [facility] Office Visit (UROLWS ) -------- BLANCA GILL ([id number]) 1950 M Date Time Provider Department 03/21/25 [...] Bryon Moreno PA-C 03/21/2025 10:06 AM Signed [facility] PATIENT CLINIC NOTE (M) Some elements copied from his previous note, which have been updated where appropriate, and all reflect current medical decision making from date of this visit. Note was generated by [employer] and edited as appropriate SERVICE DATE: [...] (FLONASE) 50 mcg/actuation nasal spray Use 1 [place] in each nostril once daily. econazole 1 % TOPICAL cream Apply to affected area once daily. ALPRAZolam 0.25 mg ORAL tablet Take 0.25 mg by mouth at bedtime as needed. busPIRone (BUSPAR) 10 mg tablet Take 10 mg by mouth four times daily as needed. (more content not included)... Normal [facility] UA DIP, URINE (POC)on 2024 BILIRUBIN UA (POCT) Negative Negative [facility] CLARITY UA (POCT) [facility] COLOR UA (POCT) Light yellow [facility] GLUCOSE UA (POCT) 100 mg/dL Abnormal Negative [facility] Hemoglobin Ql (U) Negative Negative [facility] Interpretation and review of laboratory results Abnormal [facility] KETONE UA (POCT) Negative Negative mg/dL [facility] LEUKOCYTES UA (POCT) Negative Negative [facility] NITRITE UA (POCT) Negative Negative [facility] PH UA (POCT) 7 4.5 - 8.0 [facility] Protein Ql (U) Negative Negative mg/dL [facility] SPECIFIC GRAVITY UA (POCT) 1.015 1.005 - 1.030 [facility] UROBILINOGEN UA (POCT) 0.2 Lovely l E.U./dL [facility] Location:[facility], [address], [place], [address] [facility] POINT OF CARE [facility] Absolute lymphocyte countOrd ered By: Kasia Childs on 02-13-2025 Lymphocytes Auto (Unsp spec) [#/Vol] 2.07 10*3/uL 0.83-4.51 [facility] Absolute neutrophil countOrd ered By: Kasia Childs on 02-13-2025 Neutrophils (Bld) [#/Vol] 4.8 10*3/uL 2.0-7.7 [facility] Anion gap in Serum or Plasma Ordered By: Kasia Childs on 02-13-2025 Anion gap [Moles/Vol] 8 mmol/L 5-15 [facility] Automated lymphocyte count a s percentage of total leukocytesOrdered By: Kasia Childs on 02-13-2025 Lymphocytes/100 WBC Auto (Unsp spec) 26.4 % 19-41 [facility] BUN/creatinine ratioOrdered By: Kasia Childs on 02-13-2025 Urea nitrogen/Creatinine [Mass ratio] 18.7 mg/mg 10-20 [facility] Basophil percentageOrdered B y: Kasia Childs on 02-13-2025 Basophils/100 WBC (Bld) 0.6 % 0-1 [facility] Bilirubin, totalOrdered By: Kasia Childs on 02-13-2025 Bilirubin [Mass/Vol] 0.37 mg/dL 0.00-1.30 [facility] CBC W/Diff, Automatedon Absolute Lymph 2.07 X10 3/uL Normal 0.83-4.51 [facility] Comment on above: Order Comment: TRENTON ARNDT ORDERED LIPID,CMPMALYS ORDERED LIPID,CMP,A1,CBCD,MIACRE Performed By: #### L 501.080 #### [facility] [address] [place], [address] Absolute Neut 4.8 X10 3/uL Normal 2.0-7.7 [facility] Comment on above: Order Comment: MCCON HAIR ORDERED LIPID,CMPMALYS ORDERED LIPID,CMP,A1,CBCD,MIACRE Performed By: #### L 501.080 #### [facility] [address] [place], [address] Basophils/100 WBC (Bld) 0.6 % Normal 0-1 [facility] Comment on above: Order Comment: MCCON HAIR ORDERED LIPID,CMPMALYS ORDERED LIPID,CMP,A1,CBCD,MIACRE Performed By: #### L 501.080 #### [facility] [address] [place], [address] Eosinophils/100 WBC (Bld) 1.4 % Normal 0-5 [facility] Comment on above: Order Comment: MCCON HAIR ORDERED LIPID,CMPMALYS ORDERED LIPID,CMP,A1,CBCD,MIACRE Performed By: #### L 501.080 #### [facility] [address] [place], [address] Erythrocyte distribution width (RBC) [Ratio] 18.4 % High 11.6-14.6 [facility] Comment on above: Order Comment: MCCON HAIR ORDERED LIPID,CMPMALYS ORDERED LIPID,CMP,A1,CBCD,MIACRE Performed By: #### L 501.080 #### [facility] [address] [place], [address] Hematocrit (Bld) [Volume fraction] 38.8 % Low 40-54 [facility] Comment on above: Order Comment: MCCON HAIR ORDERED LIPID,CMPMALYS ORDERED LIPID,CMP,A1,CBCD,MIACRE Performed By: #### L 501.080 #### [facility] [address] [place], [address] Hemoglobin (Bld) [Mass/Vol] 12.0 g/dL Low 13.0-16.5 [facility] Comment on above: Order Comment: MCCON HAIR ORDERED LIPID,CMPMALYS ORDERED LIPID,CMP,A1,CBCD,MIACRE Performed By: #### L 501.080 #### [facility] [address] [place], [address] IG% 0.300 Normal 0.0-0.9 [facility] Comment on above: Order Comment: MCCON HAIR ORDERED LIPID,CMPMALYS ORDERED LIPID,CMP,A1,CBCD,MIACRE Result Comment: IG% - Immature Granulocytes (promyelocytes, myelocytes and metamyelocytes) > 1% indicates that a LEFT SHIFT is Present. Performed By: #### L 501.080 #### [facility] [address] [place], [address] Lymphocytes/100 WBC (Bld) 26.4 % Normal 19-41 [facility] Comment on above: Order Comment: MCCON HAIR ORDERED LIPID,CMPMALYS ORDERED LIPID,CMP,A1,CBCD,MIACRE Performed By: #### L 501.080 #### [facility] [address] [place], [address] MCH (RBC) [Entitic mass] 25.3 pg Low 27.0-32.0 [facility] Comment on above: Order Comment: MCCON HAIR ORDERED LIPID,CMPMALYS ORDERED LIPID,CMP,A1,CBCD,MIACRE Performed By: #### L 501.080 #### [facility] [address] [place], [address] MCHC (RBC) [Mass/Vol] 30.9 g/dL Low 32-36 [facility] Comment on above: Order Comment: MCCON HAIR ORDERED LIPID,CMPMALYS ORDERED LIPID,CMP,A1,CBCD,MIACRE Performed By: #### L 501.080 #### [facility] [address] [place], [address] MCV (RBC) [Entitic vol] 81.7 fL Normal 80-94 [facility] Comment on above: Order Comment: MCCON HAIR ORDERED LIPID,CMPMALYS ORDERED LIPID,CMP,A1,CBCD,MIACRE Performed By: #### L 501.080 #### [facility] [address] [place], [address] Monocytes/100 WBC (Bld) 10.3 % High 0-10 [facility] Comment on above: Order Comment: MCCON HAIR ORDERED LIPID,CMPMALYS ORDERED LIPID,CMP,A1,CBCD,MIACRE Performed By: #### L 501.080 #### [facility] [address] [place], [address] Neutrophils/100 WBC (Bld) 61.0 % Normal 47-70 [facility] Comment on above: Order Comment: MCCON HAIR ORDERED LIPID,CMPMALYS ORDERED LIPID,CMP,A1,CBCD,MIACRE Performed By: #### L 501.080 #### [facility] [address] [place], [address] Nucleated RBC (Bld) [#/Vol] 0 10*3/uL Normal 0-5 [facility] Comment on above: Order Comment: MCCON HAIR ORDERED LIPID,CMPMALYS ORDERED LIPID,CMP,A1,CBCD,MIACRE Performed By: #### L 501.080 #### [facility] [address] [place], [address] Platelet mean volume (Bld) [Entitic vol] 9.7 fL Normal 6.2-12.0 [facility] Comment on above: Order Comment: MCCON HAIR ORDERED LIPID,CMPMALYS ORDERED LIPID,CMP,A1,CBCD,MIACRE Performed By: #### L 501.080 #### [facility] [address] [place], [address] Platelets (Bld) [#/Vol] 247 10*3/uL Normal 150-450 [facility] Comment on above: Order Comment: MCCON HAIR ORDERED LIPID,CMPMALYS ORDERED LIPID,CMP,A1,CBCD,MIACRE Performed By: #### L 501.080 #### [facility] [address] [place], [place], [id number] RBC (Bld) [#/Vol] 4.75 10*6/uL Normal 4.6-6.2 [facility] Comment on above: Order Comment: MCCON HAIR ORDERED LIPID,CMPMALYS ORDERED LIPID,CMP,A1,CBCD,MIACRE Performed By: #### L 501.080 #### [facility] [address] [place], [address] RDW SD 54.9 fl High 35.1-43.9 [facility] Comment on above: Order Comment: MCCON HAIR ORDERED LIPID,CMPMALYS ORDERED LIPID,CMP,A1,CBCD,MIACRE Performed By: #### L 501.080 #### [facility] [address] [place], [address] WBC (Bld) [#/Vol] 7.8 10*3/uL Normal 4.4-11.0 [facility] Comment on above: Order Comment: MCCON HAIR ORDERED LIPID,CMPMALYS ORDERED LIPID,CMP,A1,CBCD,MIACRE Performed By: #### L 501.080 #### [facility] [address] [place], [address] Calculated very low density lipoprotein (VLDL) cholesterol measurementOrdered By: Kasia Childs on 02-13-2025 Calculated very low density lipoprotein (VLDL) cholesterol measurement 17 mg/dL 5-40 [facility] Carbon dioxide, total [Moles /volume] in Central venous bloodOrdered By: Kasia Childs on 02-13-2025 CO2 [Moles/Vol] 33.2 mmol/L High 21.0-32.0 [facility] Chloride assayOrdered By: Dee Childs on 02-13-2025 Chloride [Moles/Vol] 98 mmol/L 98-108 [facility] Comprehensive Metabolic Prof ilon 02-13-2025 Albumin [Mass/Vol] 3.7 g/dL Normal 3.4-4.8 [facility] Comment on above: Order Comment: MCCON HAIR ORDERED LIPID,CMPMALYS ORDERED LIPID,CMP,A1,CBCD,MIACRE Performed By: #### L 501.080 #### [facility] [address] [place], [address] Albumin/Globulin [Mass ratio] 1.0 {ratio} Normal 0.9-2.4 [facility] Comment on above: Order Comment: MCCON HAIR ORDERED LIPID,CMPMALYS ORDERED LIPID,CMP,A1,CBCD,MIACRE Performed By: #### L 501.080 #### [facility] [address] [place], [address] ALK PHOS 65 U/L Normal 40-129 [facility] Comment on above: Order Comment: MCCON HAIR ORDERED LIPID,CMPMALYS ORDERED LIPID,CMP,A1,CBCD,MIACRE Performed By: #### L 501.080 #### [facility] [address] [place], [address] ALT [Catalytic activity/Vol] 21 U/L Normal <=46 [facility] Comment on above: Order Comment: MCCON HAIR ORDERED LIPID,CMPMALYS ORDERED LIPID,CMP,A1,CBCD,MIACRE Performed By: #### L 501.080 #### [facility] [address] [place], [address] AST [Catalytic activity/Vol] 17 U/L Normal <=37 [facility] Comment on above: Order Comment: MCCON HAIR ORDERED LIPID,CMPMALYS ORDERED LIPID,CMP,A1,CBCD,MIACRE Performed By: #### L 501.080 #### [facility] [address] [place], [address] Bilirubin [Mass/Vol] 0.37 mg/dL Normal 0.00-1.30 [facility] Comment on above: Order Comment: MCCON HAIR ORDERED LIPID,CMPMALYS ORDERED LIPID,CMP,A1,CBCD,MIACRE Performed By: #### L 501.080 #### [facility] [address] [place], [address] BUN/CRE 18.7 RATIO Normal 10-20 [facility] Comment on above: Order Comment: MCCON HAIR ORDERED LIPID,CMPMALYS ORDERED LIPID,CMP,A1,CBCD,MIACRE Performed By: #### L 501.080 #### [facility] [address] [place], [address] Calcium [Mass/Vol] 9.1 mg/dL Normal 7.6-11.0 [facility] Comment on above: Order Comment: MCCON HAIR ORDERED LIPID,CMPMALYS ORDERED LIPID,CMP,A1,CBCD,MIACRE Performed By: #### L 501.080 #### [facility] [address] [place], [address] Chloride [Moles/Vol] 98 mmol/L Normal 98-108 [facility] Comment on above: Order Comment: MCCON HAIR ORDERED LIPID,CMPMALYS ORDERED LIPID,CMP,A1,CBCD,MIACRE Performed By: #### L 501.080 #### [facility] [address] [place], [address] CO2 [Moles/Vol] 33.2 mmol/L High 21.0-32.0 [facility] Comment on above: Order Comment: MCCON HAIR ORDERED LIPID,CMPMALYS ORDERED LIPID,CMP,A1,CBCD,MIACRE Performed By: #### L 501.080 #### [facility] [address] [place], [address] Creatinine [Mass/Vol] 1.03 mg/dL Normal 0.70-1.20 [facility] Comment on above: Order Comment: MCCON HARI ORDERED LIPID,CMPMALYS ORDERED LIPID,CMP,A1,CBCD,MIACRE Performed By: #### L 501.080 #### [facility] [address] [place], [address] GAP 8 Normal 5-15 [facility] Comment on above: Order Comment: MCCON HAIR ORDERED LIPID,CMPMALYS ORDERED LIPID,CMP,A1,CBCD,MIACRE Performed By: #### L 501.080 #### [facility] [address] [place], [address] GFR/1.73 sq M.predicted among non-blacks MDRD (S/P/Bld) [Vol rate/Area] 77 mL/min/{1.73_m2} Normal >60 [facility] Comment on above: Order Comment: MCCON HAIR ORDERED LIPID,CMPMALYS ORDERED LIPID,CMP,A1,CBCD,MIACRE Result Comment: mL/m in/1.73m2 CKD-EPI Creatinine Equation (2020) Performed By: #### L 501.080 #### [facility] [address] [place], [address] Globulin (S) [Mass/Vol] 3.9 g/dL Normal 2.2-4.2 [facility] Comment on above: Order Comment: MCCON HAIR ORDERED LIPID,CMPMALYS ORDERED LIPID,CMP,A1,CBCD,MIACRE Performed By: #### L 501.080 #### [facility] [address] [place], [address] Glucose [Mass/Vol] 125 mg/dL High 70-99 [facility] Comment on above: Order Comment: MCCON HAIR ORDERED LIPID,CMPMALYS ORDERED LIPID,CMP,A1,CBCD,MIACRE Performed By: #### L 501.080 #### [facility] [address] [place], [address] Potassium [Moles/Vol] 4.3 mmol/L Normal 3.3-5.1 [facility] Comment on above: Order Comment: MCCON HAIR ORDERED LIPID,CMPMALYS ORDERED LIPID,CMP,A1,CBCD,MIACRE Performed By: #### L 501.080 #### [facility] [address] [place], [address] Sodium [Moles/Vol] 139 mmol/L Normal 133-145 [facility] Comment on above: Order Comment: MCCON HAIR ORDERED LIPID,CMPMALYS ORDERED LIPID,CMP,A1,CBCD,MIACRE Performed By: #### L 501.080 #### [facility] [address] [place], [place], [id number] T PROT 7.6 g/dL Normal 5.9-8.4 [facility] Comment on above: Order Comment: MCCON HAIR ORDERED LIPID,CMPMALYS ORDERED LIPID,CMP,A1,CBCD,MIACRE Performed By: #### L 501.080 #### [facility] [address] [place], [place], [address] Urea nitrogen [Mass/Vol] 19 mg/dL Normal 4-19 [facility] Comment on above: Order Comment: MCCON HAIR ORDERED LIPID,CMPMALYS ORDERED LIPID,CMP,A1,CBCD,MIACRE Performed By: #### L 501.080 #### [facility] [address] [place], [place], [address] Eosinophil percentageOrdered By: Kasia Childs on 02-13-2025 Eosinophils/100 WBC (Bld) 1.4 % 0-5 [facility] Erythrocyte distribution wid th ratioOrdered By: Kasia Childs on 02-13-2025 Erythrocyte distribution width (RBC) [Ratio] 18.4 % High 11.6-14.6 [facility] Erythrocyte distribution wid th standard deviationOrdered By: Kasia Childs on 02-13-2025 Erythrocyte distribution width (RBC) [Ratio] 54.9 fl High 35.1-43.9 [facility] Glomerular filtration rate ( GFR) estimation/1.73 sq m using serum, plasma, or whole bOrdered By: Kasia Childs on 02-13-2025 GFR/1.73 sq M.predicted among non-blacks MDRD (S/P/Bld) [Vol rate/Area] 77 mL/min/{1.73_m2} >60 [facility] Comment on above: mL/min/1.73m2 CKD-EP I Creatinine Equation (2020) Hematocrit Auto (Bld) [Volum e fraction]Ordered By: Kasia Childs on 02-13-2025 Hematocrit (Bld) [Volume fraction] 38.8 % Low 40-54 [facility] Hemoglobin A1con 02-13-2025 HbA1c (Bld) [Mass fraction] 11.0 % High <=5.6 [facility] Comment on above: Order Comment: TRENTON ARNDT ORDERED LIPID,CMPMALYS ORDERED LIPID,CMP,A1,CBCD,MIACRE Result Comment: Norm al < 5.7 % Prediabetic 5.7 - 6.4 % Diabetic >or= 6.5 % Please note range changes. Performed By: #### L 501.080 #### [facility] [address] [place], [address] Hemoglobin A1c percentageOrd ered By: Kasia Childs on 02-13-2025 HbA1c (Bld) [Mass fraction] 11.0 % High <5.7 [facility] Comment on above: Normal < 5.7 % Predi abetic 5.7 - 6.4 % Diabetic >or= 6.5 % Please note range changes. Hemoglobin measurementOrdere d By: Kasia Childs on 02-13-2025 Hemoglobin (Bld) [Mass/Vol] 12.0 g/dL Low 13.0-16.5 [facility] Immature granulocytes/100 WB C Auto (Bld)Ordered By: Kasia Childs on 02-13-2025 Immature granulocytes/100 WBC (Bld) 0.300 % 0.0-0.9 [facility] Comment on above: IG% - Immature Granu locytes (promyelocytes, myelocytes and metamyelocytes) > 1% indicates that a LEFT SHIFT is Present. LDL calc ser/plasOrdered By: Kasia Childs on 02-13-2025 Cholesterol in LDL [Mass/Vol] 144 mg/dL [facility] Comment on above: Ipakhpagzc=082-372 m g/dL & Higher Adpj=284 mg/dL or greater Laboratory - Chemistry and C hemistry - challengeOrdered By: Kasia Childs on 02-13-2025 AST [Catalytic activity/Vol] 17 U/L <38 [facility] Lipid Profileon 02-13-2025 CHOL:HDL 4.77 Normal [facility] Comment on above: Order Comment: MCCON HAIR ORDERED LIPID,CMPMALYS ORDERED LIPID,CMP,A1,CBCD,MIACRE Performed By: #### L 501.080 #### [facility] [address] [place], [address] Cholesterol [Mass/Vol] 204 mg/dL High <=200 [facility] Comment on above: Order Comment: MCCON HAIR ORDERED LIPID,CMPMALYS ORDERED LIPID,CMP,A1,CBCD,MIACRE Result Comment: Chol esterol level, Desirable <200 mg/dL Borderline high cholesterol 200-239 mg/dL High cholesterol >=240 mg/dL Recommendations of the NCEP Adult Treatment Panel for the following risk-cutoff thresholds for the [place] population. Performed By: #### L 501.080 #### [facility] [address] [place], [address] Cholesterol in HDL [Mass/Vol] 43 mg/dL Normal [facility] Comment on above: Order Comment: MCCON HAIR ORDERED LIPID,CMPMALYS ORDERED LIPID,CMP,A1,CBCD,MIACRE Result Comment: [place] onal Cholesterol Education Program (NCEP) guidelines: <40 mg/dL: Low HDL-cholesterol (major risk factor for CHD) >= 60 mg/dL: High HDL-cholesterol (negative risk factor for CHD) HDL-cholesterol is affected by a number of factors, e.g. smoking, exercise, hormones, sex and age. Performed By: #### L 501.080 #### [facility] [address] [place], [address] Cholesterol in LDL [Mass/Vol] 144 mg/dL Normal [facility] Comment on above: Order Comment: MCCON HAIR ORDERED LIPID,CMPMALYS ORDERED LIPID,CMP,A1,CBCD,MIACRE Result Comment: Bord kmchxh=647-626 mg/dL Higher Blxl=164 mg/dL or greater Performed By: #### L 501.080 #### [facility] [address] [place], [place], [id number] Cholesterol in VLDL [Mass/Vol] 17 mg/dL Normal 5-40 [facility] Comment on above: Order Comment: MCCON HAIR ORDERED LIPID,CMPMALYS ORDERED LIPID,CMP,A1,CBCD,MIACRE Performed By: #### L 501.080 #### [facility] [address] [place], [place], [address] Triglyceride [Mass/Vol] 84 mg/dL Normal [facility] Comment on above: Order Comment: MCCON HAIR ORDERED LIPID,CMPMALYS ORDERED LIPID,CMP,A1,CBCD,MIACRE Result Comment: The drugs N-Acetylcysteine and Metamizole may falsely depress this assay. Normal range: <150 mg/dL Borderline High: 150-199 mg/dL High: 200-499 mg/dL Very High: >500 mg/dL Performed By: #### L 501.080 #### [facility] [address] [place], [place], [address] MCV (mean corpuscular volume ) determinationOrdered By: Kasia Childs on 02-13-2025 MCV (RBC) [Entitic vol] 81.7 fL 80-94 [facility] Mean corpuscular hemoglobin (MCH) determinationOrdered By: Kasia Childs on 02-13-2025 MCH (RBC) [Entitic mass] 25.3 pg Low 27.0-32.0 [facility] Mean corpuscular hemoglobin concentration (MCHC) determinationOrdered By: Kasia Childs on 02-13-2025 MCHC (RBC) [Mass/Vol] 30.9 g/dL Low 32-36 [facility] Mean platelet volume determi nationOrdered By: Kasia Childs on 02-13-2025 Platelet mean volume (Bld) [Entitic vol] 9.7 fL 6.2-12.0 [facility] Microalb:Creat Ratio,Random URon 02-13-2025 MALB:CREAT Normal [facility] Comment on above: Order Comment: MCCON HAIR ORDERED LIPID,CMPMALYS ORDERED LIPID,CMP,A1,CBCD,MIACRE Result Comment: UTO Performed By: #### L 501.080 #### [facility] [address] [place], [address] MICROALBUMIN,UR Normal NO RANGE EST. [facility] Comment on above: Order Comment: MCCON HAIR ORDERED LIPID,CMPMALYS ORDERED LIPID,CMP,A1,CBCD,MIACRE Result Comment: UTO Performed By: #### L 501.080 #### [facility] [address] [place], [address] UR CREAT Normal 39.00-259.0 0 [facility] Comment on above: Order Comment: MCCON HAIR ORDERED LIPID,CMPMALYS ORDERED LIPID,CMP,A1,CBCD,MIACRE Result Comment: UTO Performed By: #### L 501.080 #### [facility] [address] [place], [address] Monocyte percentageOrdered B y: Kasia Childs on 02-13-2025 Monocytes/100 WBC (Bld) 10.3 % High 0-10 [facility] Neutrophil percentageOrdered By: Kasia Childs on 02-13-2025 Neutrophils/100 WBC (Bld) 61.0 % 47-70 [facility] Nucleated red blood cell per centageOrdered By: Kasia Childs on 02-13-2025 Nucleated RBC/100 WBC (Bld) [Ratio] 0 % 0-5 [facility] Platelet countOrdered By: Dee Childs on 02-13-2025 Platelets (Bld) [#/Vol] 247 10*3/uL 150-450 [facility] Potassium measurement (mass/ volume)Ordered By: Kasia Childs on 02-13-2025 Potassium (Unsp spec) [Mass/Vol] 4.3 mmol/L 3.3-5.1 [facility] RBC Auto (Bld) [#/Vol]Ordere d By: Kasia Childs on 02-13-2025 RBC (Bld) [#/Vol] 4.75 10*6/uL 4.6-6.2 [facility] Screening total cholesterol/ high density lipoprotein (HDL) cholesterol ratioOrdered By: Kasia Childs on 02-13-2025 Cholesterol.total/Susan sterol in HDL [Mass ratio] 4.77 {ratio} [facility] Serum creatinine measurement (mass/volume)Ordered By: Kasia Childs on 02-13-2025 Creatinine [Mass/Vol] 1.03 mg/dL 0.70-1.20 [facility] Serum globulin measurementOr dered By: Kasia Childs on 02-13-2025 Globulin (S) [Mass/Vol] 3.9 g/dL 2.2-4.2 [facility] Serum glucose measurement (m ass/volume)Ordered By: Kasia Childs on 02-13-2025 Glucose [Mass/Vol] 125 mg/dL High 70-99 [facility] Serum or plasma alanine briones otransferase (ALT) measurementOrdered By: Kasia Childs on 02-13-2025 ALT [Catalytic activity/Vol] 21 U/L <47 [facility] Serum or plasma albumin ale urement (mass/volume)Ordered By: Kasia Childs on 02-13-2025 Albumin [Mass/Vol] 3.7 g/dL 3.4-4.8 [facility] Serum or plasma albumin/glob ulin mass ratioOrdered By: Kasia Childs on 02-13-2025 Albumin/Globulin [Mass ratio] 1.0 {ratio} 0.9-2.4 [facility] Serum or plasma alkaline sherlyn sphatase measurementOrdered By: Kasia Childs on 02-13-2025 ALP [Catalytic activity/Vol] 65 U/L 40-129 [facility] Serum or plasma calcium ale urement (mass/volume)Ordered By: Kasia Childs on 02-13-2025 Calcium [Mass/Vol] 9.1 mg/dL 7.6-11.0 [facility] Serum or plasma cholesterol in HDL measurement (mass/volume)Ordered By: Kasia Childs on 02-13-2025 Cholesterol in HDL [Mass/Vol] 43 mg/dL >40 [facility] Comment on above: National Cholesterol Education Program (NCEP) guidelines:<40 mg/dL: Low HDL-cholesterol (major risk factor for CHD)>= 60 mg/dL: High HDL-cholesterol (negative risk factor for CHD)HDL-cholesterol is affected by a number of factors, e.g. smoking, exercise, hormones, sex and age. Serum or plasma cholesterol measurement (mass/volume)Ordered By: Kasia Childs on 02-13-2025 Cholesterol [Mass/Vol] 204 mg/dL High <201 [facility] Comment on above: Cholesterol level, D esirable <200 mg/dLBorderline high cholesterol 200-239 mg/dLHigh cholesterol >=240 mg/dLRecommendations of the NCEP Adult Treatment Panel for the following risk-cutoff thresholds for the [place] population. Serum or plasma urea nitroge n measurement (mass/volume)Ordered By: Kasia Childs on 02-13-2025 Urea nitrogen [Mass/Vol] 19 mg/dL 4-19 [facility] Sodium levelOrdered By: He Childs on 02-13-2025 Sodium [Moles/Vol] 139 mmol/L 133-145 [facility] Total proteinOrdered By: Yvan Childs on 02-13-2025 Protein [Mass/Vol] 7.6 g/dL 5.9-8.4 [facility] Triglycerides measurementOrd ered By: Kasia Childs on 02-13-2025 Triglyceride [Mass/Vol] 84 mg/dL <199 [facility] Comment on above: The drugs N-Acetylcy steine and Metamizole may falsely depress this assay. Normal range: <150 mg/dLBorderline High: 150-199 mg/dLHigh: 200-499 mg/dLVery High: >500 mg/dL White blood cell (WBC) count Ordered By: Kasia Childs on 02-13-2025 WBC (Bld) [#/Vol] 7.8 10*3/uL 4.4-11.0 [facility] CNOVon 01-24-2025 CNOV Office Visit ([facility] ) -------- BLANCA GILL ([id number]) 1950 M Date Time Provider Department 01/24/25 10:15 AM ROCHELLE BRANCH [facility] During your visit today, we recorded the following information about you: Temperature Pulse Respiration Blood pressure 97.9 degrees 90/minute 18/minute 138/72 Weight 112.4 kg Rochelle Branch PA-C 01/25/2025 7:18 PM Signed This note was created using [employer]. Subjective Blanca Gill is a 74 year [...] - Unknown Date Reviewed: 01/24/2025 Reviewed by: Kaylen Woodall MA - Fully [...] - f (more content not included)... Normal [facility] CNOVon 12-31-2024 CNOV Office Visit ([facility] ) -------- BLANCA GILL ([id number]) 1950 M Date Time Provider Department 12/31/24 1:00 PM MARISA BLANCO [facility] During your visit today, we recorded the following information about you: Temperature Pulse Respiration Blood pressure 98.3 degrees 98/minute 18/minute 132/74 Weight 112.3 kg Marisa Blanco APRN.[employer] 12/31/2024 1:26 PM Signed [facility] [...] visit. Physical Exam Exam conducted with a egg separator present. Constitutional: General: He is not in [...] Date Reviewed: 12/31/2024 Reviewed by: Marisa Blanco APRN.[employer]ER - Fully Assessed Reason for Visit: Groin [...] magnesium) tablet (more content not included)... Normal [facility] CNOVon 12-21-2024 CNOV Office Visit (WSTR ) -------- BLANCA GILL ([id number]) 1950 M Date Time Provider Department 12/21/24 12:30 PM SALLY HERNDON During your visit today, we recorded the following information about you: Temperature Pulse Respiration Blood pressure 98 degrees 98/minute 16/minute 122/70 Weight 113.2 kg Sally Herndon APRN.BUTTON BROACHER 12/21/2024 1:00 PM Signed [facility] [...] symptoms (LUTS) Intrinsic asthma with status asthmaticus ([facility]) Irritable bowel syndrome OAB (overactive bladder) Pure [...] (FLONASE) 50 mcg/actuation nasal spray Use 1 [place] in each nostril once daily. mometasone-formoterol (DULERA) [...] (ASTELIN, ASTEPRO) 0.1% nasal spray Use 1 [place] in the nose two times a day. Use in each nostril as directed econazole (SPECTAZOLE) 1 % cream Apply to affected area once daily. glyBURIDE 2.5 mg ORAL tablet (more content not included)... Normal [facility] Bacteria Ur Culton 5 Bacteria identified Cx Nom (U) ORGANISM ID: 1 <10,000 CFU/ml Normal urogenital sarah Normal [facility] Comment on above: Performed By: #### 6 30-4 ####[facility] LABIA [id number] [address] [place] CNOVon 12-13-2024 CNOV Office Visit (UROLWS ) -------- BLANCA GILL ([id number]) 1950 M Date Time Provider Department 12/13/24 [...] Bryon Moreno PA-C 12/13/2024 6:59 PM Signed [facility] EST PATIENT CLINIC NOTE (M) Some elements [...] (FLONASE) 50 mcg/actuation nasal spray Use 1 [place] in each nostril once daily. mometasone-formoterol (DULERA) [...] instructed. diphenoxylate (more content not included)... Normal [facility] UA DIP, URINE (POC)on 2024 BILIRUBIN UA (POCT) Negative Negative [facility] CLARITY UA (POCT) Slightly Cloudy Cl [facility] COLOR UA (POCT) Yellow [facility] GLUCOSE UA (POCT) 500 mg/dL Abnormal Negative [facility] Hemoglobin Ql (U) Negative Negative [facility] Interpretation and review of laboratory results Abnormal [facility] KETONE UA (POCT) Negative Negative mg/dL [facility] LEUKOCYTES UA (POCT) Negative Negative [facility] NITRITE UA (POCT) Negative Negative [facility] PH UA (POCT) 7 4.5 - 8.0 [facility] Protein Ql (U) 30 mg/dL Abnormal Negative [facility] SPECIFIC GRAVITY UA (POCT) 1.02 1.005 - 1.030 [facility] UROBILINOGEN UA (POCT) 0.2 Lovely l E.U./dL [facility] Location:[facility], [address], [place], [address] [facility] POINT OF CARE [facility] Danielle 11-29-2024 BENJAMINN Telephone (UROLWS) -------- BLANCA GILL ([id number]) 1950 M Date Time Provider Department 11/29/24 BRYON TURNER During your visit today, we recorded the following information about you: Margarita Jimenez RN 11/29/2024 10:52 AM Signed Patient calling in for an appointment with Urology. States that he was referred to [facility] for ED as his previous provider in [place] does not treat for that. Patient states [...] may need to be seen either at [facility] or the ED if he is having these symptoms, especially since he does not currently have an upcomming urology appointment. Patient does not want to go to [facility] if they can not place a perez if needed. Reached out to [facility] and they do not place perez's. Informed the patient that if he is having urinary frequency, urgency, burning, and difficulty emptying his bladder then he should be seen in the ED. Especially since he has had to have catheter's placed for this before. Patient agreeable. It appears patient had called to schedule appointment with [facility] for referral for ED, they offered [...] (FLONASE) 50 mcg/actuation nasal spray Use 1 [place] in each nostril once daily. - mometasone-formoterol [...] - di (more content not included)... Normal [facility] 11-28-2024 ANITA Telephone (UROLWS) -------- BLANCA GILL ([id number]) 1950 M Date Time Provider Department 11/28/24 BRYON TURNER During your visit today, we recorded the following information about you: Rhiannon Bynum 11/28/2024 3:47 PM Signed Patient called to request to speak with nurse. Patient was referred to [facility] by Lamar Quinones CNP. Patient is wanting to discuss how the providers treat for ED prior to scheduling consultation. Please contact patient at ph. [phone]. Ginette Sanchez LPN 12/02/2024 8:32 AM Signed [...] (FLONASE) 50 mcg/actuation nasal spray Use 1 [place] in each nostril once daily. - mometasone-formoterol [...] (ASTELIN, ASTEPRO) 0.1% nasal spray Use 1 [place] in the nose two times a day. Use in each nostril as directed - econazole (SPECTAZOLE) 1 % cream Apply to affected area once (more content not included)... Normal [facility] 12 Lead EKGon 11-07-2024 12 Lead EKG [facility] Cardiovascular Services [address] [place] [address] 12 Lead EKG 11/07/24 0416 MR#: [id number] Acct: [id number] Name: BLANCA GILL Rep #: [id number] : 1950 74 From: Goyo Burleson MD [...] undetermined Abnormal ECG Confirmed by Goyo Burleson ([id number]), field map editor MARGARITA TEMPLE ([id number]) on 11/09/2024 7:58:15 AM Referred By: CLINTON Confirmed By: Goyo Burleson 11/09/24 0758 Date Goyo Burleson MD CC: Dr. Maya Pradhan DO; Dr. Gabe Fragoso DO Signed Normal [facility] Absolute lymphocyte countOrd ered By: Gabe Fragoso on 11-07-2024 Lymphocytes Auto (Unsp spec) [#/Vol] 1.53 10*3/uL 0.83-4.51 [facility] Absolute neutrophil countOrd ered By: Gabe Fragoso on 11-07-2024 Neutrophils (Bld) [#/Vol] 4.8 10*3/uL 2.0-7.7 [facility] Automated lymphocyte count a s percentage of total leukocytesOrdered By: Gabe Fragoso on 11-07-2024 Lymphocytes/100 WBC Auto (Unsp spec) 20.2 % 19-41 [facility] Basic Metabolic Profile (BMP )on 11-07-2024 BUN/CRE 15.8 RATIO Normal 10-20 [facility] Comment on above: Performed By: #### L 100.0100, L500.2500, L501.5425 #### [facility] [address] [place], [address] CA,Total 9.0 mg/dL Normal 8.5-10.1 [facility] Comment on above: Performed By: #### L 100.0100, L500.2500, L501.5425 #### [facility] [address] [place], [address] Chloride [Moles/Vol] 97 mmol/L Low 98-107 [facility] Comment on above: Performed By: #### L 100.0100, L500.2500, L501.5425 #### [facility] [address] [place], [address] CO2 [Moles/Vol] 32.0 mmol/L Normal 21.0-32.0 [facility] Comment on above: Performed By: #### L 100.0100, L500.2500, L501.5425 #### [facility] [address] [place], [address] Creatinine [Mass/Vol] 0.95 mg/dL Normal 0.70-1.30 [facility] Comment on above: Result Comment: The validity of the calculated GFR GFRAA in patients over 70 years has not been determined. Clinical correlation is essential. Performed By: #### L 100.0100, L500.2500, L501.5425 #### [facility] [address] [place], [address] ECRCL 86.00 ml/min Normal [facility] Comment on above: Performed By: #### L 100.0100, L500.2500, L501.5425 #### [facility] [address] [place], [address] EST GFR - AA 100 mL/min Normal >60 [facility] Comment on above: Result Comment: Afri can [place] GFR Calc Performed By: #### L 100.0100, L500.2500, L501.5425 #### [facility] [address] [place], [address] GAP 5 Normal 5-15 [facility] Comment on above: Performed By: #### L 100.0100, L500.2500, L501.5425 #### [facility] [address] [place], [address] GFR/1.73 sq M.predicted among non-blacks MDRD (S/P/Bld) [Vol rate/Area] 83 mL/min/{1.73_m2} Normal >60 [facility] Comment on above: Result Comment: Non- GFR Calc Performed By: #### L 100.0100, L500.2500, L501.5425 #### [facility] [address] [place], [address] Glucose [Mass/Vol] 193 mg/dL High 74-106 [facility] Comment on above: Result Comment: Fast ing Glucose result greater than or equal to 126 mg/dL suggests DIABETES MELLITUS per A.D.A. criteria. Performed By: #### L 100.0100, L500.2500, L501.5425 #### [facility] [address] [place], [address] Potassium [Moles/Vol] 4.2 mmol/L Normal 3.5-5.1 [facility] Comment on above: Performed By: #### L 100.0100, L500.2500, L501.5425 #### [facility] [address] [place], [address] Sodium [Moles/Vol] 134 mmol/L Low 136-145 [facility] Comment on above: Performed By: #### L 100.0100, L500.2500, L501.5425 #### [facility] [address] [place], [address] Urea nitrogen [Mass/Vol] 15 mg/dL Normal 7-18 [facility] Comment on above: Performed By: #### L 100.0100, L500.2500, L501.5425 #### [facility] [address] [place], [address] Basophil percentageOrdered B y: Gabe Fragoso on 11-07-2024 Basophils/100 WBC (Bld) 0.5 % 0-1 [facility] Blood urea nitrogen (BUN)/cr eatinine ratioOrdered By: Gabe Fragoso on 11-07-2024 Urea nitrogen/Creatinine [Mass ratio] 15.8 mg/mg 10-20 [facility] CBC W/Diff, Automatedon 10-16 Absolute Lymph 1.53 X10 3/uL Normal 0.83-4.51 [facility] Comment on above: Performed By: #### L 100.0100, L500.2500, L501.5425 #### [facility] [address] [place], [address] Absolute Neut 4.8 X10 3/uL Normal 2.0-7.7 [facility] Comment on above: Performed By: #### L 100.0100, L500.2500, L501.5425 #### [facility] [address] [place], [address] Basophils/100 WBC (Bld) 0.5 % Normal 0-1 [facility] Comment on above: Performed By: #### L 100.0100, L500.2500, L501.5425 #### [facility] [address] [place], [address] Eosinophils/100 WBC (Bld) 1.7 % Normal 0-5 [facility] Comment on above: Performed By: #### L 100.0100, L500.2500, L501.5425 #### [facility] [address] [place], [address] Erythrocyte distribution width (RBC) [Ratio] 16.7 % High 11.6-14.6 [facility] Comment on above: Performed By: #### L 100.0100, L500.2500, L501.5425 #### [facility] [address] [place], [address] Hematocrit (Bld) [Volume fraction] 36.8 % Low 40-54 [facility] Comment on above: Performed By: #### L 100.0100, L500.2500, L501.5425 #### [facility] [address] [place], [address] Hemoglobin (Bld) [Mass/Vol] 10.8 g/dL Low 13.0-16.5 [facility] Comment on above: Performed By: #### L 100.0100, L500.2500, L501.5425 #### [facility] [address] [place], [address] IG% 0.400 Normal 0.0-0.9 [facility] Comment on above: Result Comment: IG% - Immature Granulocytes (promyelocytes, myelocytes and metamyelocytes) > 1% indicates that a LEFT SHIFT is Present. Performed By: #### L 100.0100, L500.2500, L501.5425 #### [facility] [address] [place], [address] Lymphocytes/100 WBC (Bld) 20.2 % Normal 19-41 [facility] Comment on above: Performed By: #### L 100.0100, L500.2500, L501.5425 #### [facility] [address] [place], [address] MCH (RBC) [Entitic mass] 23.4 pg Low 27.0-32.0 [facility] Comment on above: Performed By: #### L 100.0100, L500.2500, L501.5425 #### [facility] [address] [place], [address] MCHC (RBC) [Mass/Vol] 29.3 g/dL Low 32-36 [facility] Comment on above: Performed By: #### L 100.0100, L500.2500, L501.5425 #### [facility] [address] [place], [address] MCV (RBC) [Entitic vol] 79.7 fL Low 80-94 [facility] Comment on above: Performed By: #### L 100.0100, L500.2500, L501.5425 #### [facility] [address] [place], [address] Monocytes/100 WBC (Bld) 14.0 % High 0-10 [facility] Comment on above: Performed By: #### L 100.0100, L500.2500, L501.5425 #### [facility] [address] [place], [address] Neutrophils/100 WBC (Bld) 63.2 % Normal 47-70 [facility] Comment on above: Performed By: #### L 100.0100, L500.2500, L501.5425 #### [facility] [address] [place], [address] Nucleated RBC (Bld) [#/Vol] 0 10*3/uL Normal 0-5 [facility] Comment on above: Performed By: #### L 100.0100, L500.2500, L501.5425 #### [facility] [address] [place], [address] Platelet mean volume (Bld) [Entitic vol] 10.1 fL Normal 6.2-12.0 [facility] Comment on above: Performed By: #### L 100.0100, L500.2500, L501.5425 #### [facility] [address] [place], [address] Platelets (Bld) [#/Vol] 286 10*3/uL Normal 150-450 [facility] Comment on above: Performed By: #### L 100.0100, L500.2500, L501.5425 #### [facility] [address] [place], [address] RBC (Bld) [#/Vol] 4.62 10*6/uL Normal 4.6-6.2 [facility] Comment on above: Performed By: #### L 100.0100, L500.2500, L501.5425 #### [facility] [address] [place], [address] RDW SD 47.5 fl High 35.1-43.9 [facility] Comment on above: Performed By: #### L 100.0100, L500.2500, L501.5425 #### [facility] [address] [place], [address] WBC (Bld) [#/Vol] 7.6 10*3/uL Normal 4.4-11.0 [facility] Comment on above: Performed By: #### L 100.0100, L500.2500, L501.5425 #### [facility] [address] [place], [address] Carbon dioxide measurementOr dered By: Gabe Cueto 11-07-2024 CO2 [Moles/Vol] 32.0 mmol/L 21.0-32.0 [facility] Chest PA and Lateralon 11-07 Chest PA and Lateral [facility] Imaging Services [address] [facility] [address] Chest PA and Lateral MR#: [id number] Acct: [id number] Name: BLANCA GILL Rep #: [id number] : 1950 M 74 From: Alfonso Adan MD PCP: Dr. Maya Pradhan DO Status: REG ER Study: Chest PA and Lateral Date of Exam: 11/07/24 Exam# [id number] Ordering Dr: Gabe Fragoso DO PROCEDURE: CHEST [...] No evidence of acute disease. Reading Location: [id number] CC: Dr. Maya Pradhan DO; Dr. Gabe Fragoso DO Toppiece Chopper: Signed Normal [facility] Chloride measurementOrdered By: Gabe Fragoso on 11-07-2024 Chloride [Moles/Vol] 97 mmol/L Low 98-107 [facility] Emergency Department Summary on 11-07-2024 Emergency Department Summary [facility] Medical Records Department [address] [place] [address] Emergency Department Summary 11/07/24 MR#: [id number] Acct: [id number] Name: BLANCA GILL Rep #: [id number] : 1950 74 From: Gabe Ivey PCP: [...] myalgias. Prior Similar Symptoms: Yes, With Prior NM, With Prior Angina and With Prior PE CVD Risk Factors: Positive for Hypertension and Hypercholesterolemia; Negative for Diabetes or Family History 1 [facility] Medical History Swelling of left lower extremity [...] (congestive) heart failure Atherosclerotic heart disease of [place] coronary artery without angina pectoris History of [...] ca (more content not included)... Normal [facility] Eosinophil percentageOrdered By: Gabe Fragoso on 11-07-2024 Eosinophils/100 WBC (Bld) 1.7 % 0-5 [facility] Erythrocyte distribution wid th ratioOrdered By: Gabe Fragoso on 11-07-2024 Erythrocyte distribution width (RBC) [Ratio] 16.7 % High 11.6-14.6 [facility] Erythrocyte distribution wid th standard deviationOrdered By: Gabe Clinton on 11-07-2024 Erythrocyte distribution width (RBC) [Ratio] 47.5 fl High 35.1-43.9 [facility] Glomerular filtration rate ( GFR) estimationOrdered By: Gabe Fragoso on 11-07-2024 GFR/1.73 sq M.predicted among non-blacks MDRD (S/P/Bld) [Vol rate/Area] 83 mL/min/{1.73_m2} >60 [facility] Comment on above: Non- GFR Calc Glucose measurementOrdered B y: Gabe Fragoso on 11-07-2024 Glucose [Mass/Vol] 193 mg/dL High 74-106 [facility] Comment on above: Fasting Glucose resu lt greater than or equal to 126 mg/dL suggests DIABETES MELLITUS per A.D.A. criteria. Hematocrit Auto (Bld) [Volum e fraction]Ordered By: Gabe Fragoso on 11-07-2024 Hematocrit (Bld) [Volume fraction] 36.8 % Low 40-54 [facility] Hemoglobin measurementOrdere d By: Gabe Fragoso on 11-07-2024 Hemoglobin (Bld) [Mass/Vol] 10.8 g/dL Low 13.0-16.5 [facility] Immature granulocytes/100 WB C Auto (Bld)Ordered By: Gabe Fragoso on 11-07-2024 Immature granulocytes/100 WBC (Bld) 0.400 % 0.0-0.9 [facility] Comment on above: IG% - Immature Granu locytes (promyelocytes, myelocytes and metamyelocytes) > 1% indicates that a LEFT SHIFT is Present. L501.4020on 11-07-2024 TROPONIN-I HS 7 pg/mL Normal 3.0-78.0 [facility] Comment on above: Result Comment: Plea se Note: New Test Units and Gender Specific Reference Ranges. For more information see Policy Stat Procedure [place] High Sensitivity Troponin (TNIH) and attachments. Performed By: #### L 501.080 #### [facility] [address] [place], [address] L501.5425on 11-07-2024 TROPONIN-I HS 7 pg/mL Normal 3.0-78.0 [facility] Comment on above: Order Comment: 1 Y Result Comment: Plea se Note: New Test Units and Gender Specific Reference Ranges. For more information see Policy Stat Procedure [place] High Sensitivity Troponin (TNIH) and attachments. Performed By: #### L 100.0100, L500.2500, L501.5425 #### [facility] [address] [place], [address] MCV (mean corpuscular volume ) determinationOrdered By: Gabe Fragoso on 11-07-2024 MCV (RBC) [Entitic vol] 79.7 fL Low 80-94 [facility] Mean corpuscular hemoglobin (MCH) determinationOrdered By: Gabe Fragoso on 11-07-2024 MCH (RBC) [Entitic mass] 23.4 pg Low 27.0-32.0 [facility] Mean corpuscular hemoglobin concentration (MCHC) determinationOrdered By: Gabe Fragoso on 11-07-2024 MCHC (RBC) [Mass/Vol] 29.3 g/dL Low 32-36 [facility] Mean platelet volume determi nationOrdered By: Gabe Fragoso on 11-07-2024 Platelet mean volume (Bld) [Entitic vol] 10.1 fL 6.2-12.0 [facility] Monocyte percentageOrdered B y: Gabe Fragoso on 11-07-2024 Monocytes/100 WBC (Bld) 14.0 % High 0-10 [facility] Neutrophil percentageOrdered By: Gabe Fragoso on 11-07-2024 Neutrophils/100 WBC (Bld) 63.2 % 47-70 [facility] Nucleated red blood cell per centageOrdered By: Gabe Fragoso on 11-07-2024 Nucleated RBC/100 WBC (Bld) [Ratio] 0 % 0-5 [facility] Platelet countOrdered By: Ba livignston Clinton on 11-07-2024 Platelets (Bld) [#/Vol] 286 10*3/uL 150-450 [facility] Potassium measurementOrdered By: Gabe Fragoso on 11-07-2024 Potassium [Moles/Vol] 4.2 mmol/L 3.5-5.1 [facility] RBC Auto (Bld) [#/Vol]Ordere d By: Gabe Fragoso on 11-07-2024 RBC (Bld) [#/Vol] 4.62 10*6/uL 4.6-6.2 [facility] Serum anion gap measurementO rdered By: Gabe Fragoso on 11-07-2024 Anion gap [Moles/Vol] 5 mmol/L 5-15 [facility] Serum or plasma calcium ale urement (mass/volume)Ordered By: Gabe Fragoso on 11-07-2024 Calcium [Mass/Vol] 9.0 mg/dL 8.5-10.1 [facility] Serum or plasma creatinine m easurement (mass/volume)Ordered By: Gabe Fragoso on 11-07-2024 Creatinine [Mass/Vol] 0.95 mg/dL 0.70-1.30 [facility] Comment on above: The validity of the calculated GFR & GFRAA in patients over 70 years has not been determined. Clinical correlation is essential. Serum or plasma urea nitroge n measurement (mass/volume)Ordered By: Gabe Fragoso on 11-07-2024 Urea nitrogen [Mass/Vol] 15 mg/dL 7-18 [facility] Sodium levelOrdered By: Gabe Fragoso on 11-07-2024 Sodium [Moles/Vol] 134 mmol/L Low 136-145 [facility] Troponin IOrdered By: Gabe houston on 11-07-2024 Troponin I 7 pg/mL 3.0-78.0 [facility] Comment on above: Please Note: [place] t Units and Gender Specific Reference Ranges. For more information see Policy Stat Procedure [place] High Sensitivity Troponin (TNIH) and attachments. White blood cell (WBC) count Ordered By: Gabe Fragoso on 11-07-2024 WBC (Bld) [#/Vol] 7.6 10*3/uL 4.4-11.0 [facility] MR/BMS.BVSon 11-04-2024 MR/BMS.BVS [facility] [address] [place] [address] OFFICE VISIT Date of Service: 11/04/24 MR#: [id number] Acct: [id number] Name: BLANCA GILL Rep #: [id number] : 1950 Provider: RADHA Ibrahim Age/Sex: 74/M Location: [facility] Status: Signed Intake Vital Signs 10/09/24 12:29 [...] P (more content not included)... Normal [facility] Lower Ext/No Jt/w/oon 2024 Lower Ext/No Jt/w/o [facility] Imaging Services [address] [place], [place] [id number] Lower Ext/No Jt/w/o MR#: [id number] Acct: [id number] Name: BLANCA GILL Rep #: [id number] : 1950 M 74 From: Jonathan Jacobsen i, DO PCP: Dr. Maya Pradhan DO Status: REG CLI Study: Lower Ext/No Jt/w/o Date of Exam: 10/31/24 Exam# [id number] Ordering Dr: Ricardo Jones DPM PROCEDURE: Noncontrast MRI of the right foot. REASON FOR EXAM: Right foot cellulitis. Nail puncture. TECHNIQUE: Multiplanar, multisequence MRI images of the right foot were obtained without IV contrast. COMPARISON: None available FINDINGS The included distal right tibia/fibula, talus, calcaneus, tarsal bones, and metatarsals are intact. Fat signal is maintained in the sinus tarsi. There are [id number] degenerative changes of the tarsal bones and [...] CC: DAMON Jones; Dr. Maya Pradhan DO Toppiece Chopper: Signed Normal [facility] Basic Metabolic Profile (BMP )on 10-11-2024 BUN/CRE 13.2 RATIO Normal 10-20 [facility] Comment on above: Performed By: #### L 500.4050, L503.6620 #### [facility] [address] [place], [address] CA,Total 9.2 mg/dL Normal 8.5-10.1 [facility] Comment on above: Performed By: #### L 500.4050, L503.6620 #### [facility] [address] [place], [address] Chloride [Moles/Vol] 97 mmol/L Low 98-107 [facility] Comment on above: Performed By: #### L 500.4050, L503.6620 #### [facility] [address] [place], [address] CO2 [Moles/Vol] 35.0 mmol/L High 21.0-32.0 [facility] Comment on above: Performed By: #### L 500.4050, L503.6620 #### [facility] [address] [place], [address] Creatinine [Mass/Vol] 1.21 mg/dL Normal 0.70-1.30 [facility] Comment on above: Result Comment: The validity of the calculated GFR GFRAA in patients over 70 years has not been determined. Clinical correlation is essential. Performed By: #### L 500.4050, L503.6620 #### [facility] [address] [place], [address] EST GFR - AA 76 mL/min Normal >60 [facility] Comment on above: Result Comment: Afri can [place] GFR Calc Performed By: #### L 500.4050, L503.6620 #### [facility] [address] [place], [address] GAP 5 Normal 5-15 [facility] Comment on above: Performed By: #### L 500.4050, L503.6620 #### [facility] [address] [place], [address] GFR/1.73 sq M.predicted among non-blacks MDRD (S/P/Bld) [Vol rate/Area] 63 mL/min/{1.73_m2} Normal >60 [facility] Comment on above: Result Comment: Non- GFR Calc Performed By: #### L 500.4050, L503.6620 #### [facility] [address] [place], [address] Glucose [Mass/Vol] 297 mg/dL High 74-106 [facility] Comment on above: Result Comment: Gluc ose result greater than or equal to 200 mg/dL suggests DIABETES MELLITUS per A.D.A. criteria. Performed By: #### L 500.4050, L503.6620 #### [facility] [address] [place], [address] Potassium [Moles/Vol] 4.1 mmol/L Normal 3.5-5.1 [facility] Comment on above: Performed By: #### L 500.4050, L503.6620 #### [facility] [address] [place], [address] Sodium [Moles/Vol] 136 mmol/L Normal 136-145 [facility] Comment on above: Performed By: #### L 500.4050, L503.6620 #### [facility] [address] [place], [address] Urea nitrogen [Mass/Vol] 16 mg/dL Normal 7-18 [facility] Comment on above: Performed By: #### L 500.4050, L503.6620 #### [facility] [address] [place], [address] Bedside Glucoseon 10-09-2024 FINGERSTICK GLU 145 mg/dL High 74-106 [facility] Comment on above: Result Comment: BLAYNE CAICEDO OF PATIENT CARE PER NURSING PROTOCOL Performed By: #### L 501.080 #### [facility] [address] [place], [address] Emergency Department Summary on 10-09-2024 Emergency Department Summary [facility] Medical Records Department [address] [place] [address] Emergency Department Summary 10/09/24 MR#: [id number] Acct: [id number] Name: BLANCA GILL Rep #: [id number] : 1950 74 From: Anuel Colon DO [...] intact Psych: Cooperative, appropriate mood and affect [facility] Medical History Swelling of left [...] (congestive) heart failure Atherosclerotic heart disease of chit[place] coronary artery without angina pectoris History of [...] # (more content not included)... Normal [facility] Foot min 3 Viewson 5 Foot min 3 Views [facility] Imaging Services [address] [place], [place] [address] Foot min 3 Views MR#: [id number] Acct: [id number] Name: BLANCA GILL Rep #: [id number] : 1950 M 74 From: Lloyd Jacinto PCP: Dr. Maya Pradhan DO Status: REG ER Study: Foot min 3 Views Date of Exam: 10/09/24 Exam# [id number] Ordering Dr: Anuel Colon DO [id number] EXAM: XR RIGHT FOOT COMPLETE, 3 OR [...] Anuel Colon DO; Dr. Maya Pradhan DO Toppiece Chopper: Signed Normal [facility] 10-05-2024 CNPN Telephone (UROLWS) -------- BLANCA GILL ([id number]) 1950 M Date Time Provider Department 10/05/24 BRYON TURNER During your visit today, we recorded the following information about you: Anila Corrales LPN 10/05/2024 2:54 PM Signed Just an FYI patient called to schedule with urology but did tell me he used to see a Dr. Cedeno in [place] for Erectile dysfunction. He also has been having trouble with dry skin/bleeding under his foreskin (uncircumcised) which he will discuss when he is seen as well. ELIOT Ervin Kimberly, LPN 10/06/2024 10:44 AM Signed Called [facility]. Spoke with ELIOT Saez who will send records. States patient last seen with them over two years ago. Scanned docs from [facility] as well. ELIOT Figueroa Laurie, MA 10/07/2024 3:59 PM Signed Records received and scanned into [employer]. Marina Lopez MA Allergies As of Date: [...] Reason for Visit: Request Outside Medical Records [1746] Prescriptions as of 10/07/2024 - acetaminophen 325 [...] (FLONASE) 50 mcg/actuation nasal spray Use 1 [place] in each nostril once daily. - mometasone-formoterol [...] (ASTELIN, ASTEPRO) 0.1% nasal spray Use 1 [place] in the nose two times a day. [...] diabetes francine (more content not included)... Normal [facility] CNOVon 10-01-2024 CNOV Office Visit (UCWSTR ) -------- BLANCA GILL ([id number]) 1950 M Date Time Provider Department 10/01/24 3:00 PM RIA BRANCH [facility] During your visit today, we recorded the following information about you: Temperature Pulse Respiration Blood pressure 98.3 degrees 93/minute 20/minute 147/77 Weight 114 kg Ria Branch APRN.BUTTON BROACHER 10/01/2024 3:47 PM Signed Subjective Wound Check [...] (FLONASE) 50 mcg/actuation nasal spray Use 1 [place] in each nostril once daily. econazole 1 [...] (ASTELIN, ASTEPRO) 0.1% nasal spray Use 1 [place] in the nose two times a day. [...] once daily. (more content not included)... [facility] Telephone (UCW[facility]) -------- BLANCA GILL ([id number]) 1950 Date Time Provider Department 09/28/24 ALAN MCKEON UCWSTR During your visit today, we recorded the following information about you: Alan Mckeon APRN.BUTTON BROACHER 09/28/2024 8:54 AM Signed Call patient let [...] (FLONASE) 50 mcg/actuation nasal spray Use 1 [place] in each nostril once daily. - mometasone-formoterol [...] (ASTELIN, ASTEPRO) 0.1% nasal spray Use 1 [place] in the nose two times a day. [...] of lef (more content not included)... Normal [facility] Basic Metabolic Profile (BMP )on 09-26-2024 BUN/CRE 24.5 RATIO High 10-20 [facility] Comment on above: Performed By: #### L 500.2500 #### [facility] [address] [place], [address] CA,Total 9.2 mg/dL Normal 8.5-10.1 [facility] Comment on above: Performed By: #### L 500.2500 #### [facility] [address] [place], [address] Chloride [Moles/Vol] 102 mmol/L Normal 98-107 [facility] Comment on above: Performed By: #### L 500.2500 #### [facility] [address] [place], [address] CO2 [Moles/Vol] 35.0 mmol/L High 21.0-32.0 [facility] Comment on above: Performed By: #### L 500.2500 #### [facility] [address] [place], [address] Creatinine [Mass/Vol] 1.10 mg/dL Normal 0.70-1.30 [facility] Comment on above: Result Comment: The validity of the calculated GFR GFRAA in patients over 70 years has not been determined. Clinical correlation is essential. Performed By: #### L 500.2500 #### [facility] [address] [place], [address] EST GFR - AA 84 mL/min Normal >60 [facility] Comment on above: Result Comment: Afri can Chadian GFR Calc Performed By: #### L 500.2500 #### [facility] [address] [place], [address] GAP 2 Low 5-15 [facility] Comment on above: Performed By: #### L 500.2500 #### [facility] [address] [place], [address] GFR/1.73 sq M.predicted among non-blacks MDRD (S/P/Bld) [Vol rate/Area] 70 mL/min/{1.73_m2} Normal >60 [facility] Comment on above: Result Comment: Non- GFR Calc Performed By: #### L 500.2500 #### [facility] [address] [place], [address] Glucose [Mass/Vol] 187 mg/dL High 74-106 [facility] Comment on above: Result Comment: Fast ing Glucose result greater than or equal to 126 mg/dL suggests DIABETES MELLITUS per A.D.A. criteria. Performed By: #### L 500.2500 #### [facility] [address] [place], [address] Potassium [Moles/Vol] 4.3 mmol/L Normal 3.5-5.1 [facility] Comment on above: Performed By: #### L 500.2500 #### [facility] [address] [place], [place], [address] Sodium [Moles/Vol] 139 mmol/L Normal 136-145 [facility] Comment on above: Performed By: #### L 500.2500 #### [facility] [address] [place], [place], [address] Urea nitrogen [Mass/Vol] 27 mg/dL High 7-18 [facility] Comment on above: Performed By: #### L 500.2500 #### [facility] [address] [place], [place], [address] Thoracic Spine 3 Viewson Thoracic Spine 3 Views [facility] Imaging Services [address] [place], [place] [address] Thoracic Spine 3 Views MR#: [id number] Acct: [id number] Name: BLANCA GILL Rep #: [id number] : 1950 M 74 From: Vivek Santiago MD PCP: Dr. Maya Pradhan, Status: REG CLI Study: Thoracic Spine 3 Views Date of Exam: 09/26/24 Exam# [id number] Ordering Dr: Maya Pradhan DO [id number] EXAM: XR THORACIC SPINE, 3 VIEWS CLINICAL [...] EST , CC: Dr. Maya Pradhan DO Toppiece Chopper: Signed [facility] CNOVon 09-25-2024 CNOV Office Visit (UCWSTR ) -------- BLANCA GILL ([id number]) 1950 M Date Time Provider Department 09/25/24 10:30 AM KODI VUONG [facility] During your visit today, we recorded the following information about you: Temperature Pulse Respiration Blood pressure 97.9 degrees 88/minute 21/minute 122/62 Weight 113.6 kg Kodi Vuong APRN.BUTTON BROACHER 09/25/2024 11:02 AM Signed This note was created using Med Access. Subjective Blanca Gill is a 74 year [...] any new or worsening concerns. Kodi Vuong APRN.BUTTON BROACHER Allergies As of Date: 09/25/2024 Noted Allergy [...] - Cyanocobalamin (more content not included)... Normal [facility] Danielle 09-20-2024 [facility] -------- BLANCA GILL ([id number]) 1950 M Date Time Provider Department 09/20/24 ANILA BANERJEE [facility] During your visit today, we recorded the following information about you: Anila Banerjee APRN.BUTTON BROACHER 09/20/2024 1:52 PM Signed Wound culture returns [...] (FLONASE) 50 mcg/actuation nasal spray Use 1 [place] in each nostril once daily. - mometasone-formoterol [...] (ASTELIN, ASTEPRO) 0.1% nasal spray Use 1 [place] in the nose two times a day. [...] ordered this (more content not included)... Normal [facility] -------- BLANCA GILL ([id number]) 1950 M Date Time Provider Department 09/18/24 RIA BRANCH [facility] During your visit today, we recorded the following information about you: Kaylen Woodall MA 09/18/2024 3:38 PM Signed ----- Message from Ria Branch APRN.BUTTON BROACHER sent at 09/18/2024 1:26 PM EST ----- [...] (FLONASE) 50 mcg/actuation nasal spray Use 1 [place] in each nostril once daily. - mometasone-formoterol [...] (ASTELIN, ASTEPRO) 0.1% nasal spray Use 1 [place] in the nose two times a day. [...] Status:Closed by KAYLEN WOODALL on 09/18/24 Normal [facility] Bacteria Ur Culton 5 Bacteria identified Cx Nom (U) ORGANISM ID: 1 <10,000 CFU/ml Normal urogenital sarah Normal [facility] Comment on above: Performed By: #### 6 30-4 ####[facility] LABCLIA [id number] [address] [place] Bacteria Wnd Culton [...] , Intermediate >4 , Resistant >8 Abnormal [facility] Comment on above: Performed By: #### 6 462-6 ####[facility] LABIA [id number] [address] OF [facility] CNOVon 09-17-2024 CNOV Office Visit (UCWSTR ) -------- BLANCA GILL ([id number]) 1950 M Date Time Provider Department 09/17/24 12:00 PM [facility] During your visit today, we recorded the following information about you: Temperature Pulse Respiration Blood pressure 97.6 degrees 90/minute 18/minute 120/62 Weight 113.4 kg Kami Younger APRN.BUTTON BROACHER 09/17/2024 12:23 PM Signed Subjective HPI Blanca presents today with concern [...] (FLONASE) 50 mcg/actuation nasal spray Use 1 [place] in each nostril once daily. mometasone-formoterol (DULERA) [...] (ASTELIN, ASTEPRO) 0.1% nasal spray Use 1 [place] in the nose two times a day. [...] Vitals and (more content not included)... Normal [facility] Fungus Spec Culton Fungus identified Cx Nom (Unsp spec) CULTURE, FUNGAL: No Fungus isolated after 10 days Normal [facility] Comment on above: Performed By: #### 5 80-1 ####[facility] LABCLIA [id number] [place] [address] [place] UA DIP, URINE (POC)on 2024 BILIRUBIN UA (POCT) Negative Negative [facility] CLARITY UA (POCT) Slightly Cloudy Cl [facility] COLOR UA (POCT) Yellow [facility] GLUCOSE UA (POCT) 500 mg/dL Abnormal Negative [facility] Hemoglobin Ql (U) Negative Negative [facility] Interpretation and review of laboratory results Abnormal [facility] KETONE UA (POCT) Negative Negative mg/dL [facility] LEUKOCYTES UA (POCT) Negative Negative [facility] NITRITE UA (POCT) Negative Negative [facility] PH UA (POCT) 6.5 4.5 - 8.0 [facility] Protein Ql (U) Negative Negative mg/dL [facility] SPECIFIC GRAVITY UA (POCT) 1.010 1.005 - 1.030 [facility] UROBILINOGEN UA (POCT) 0.2 Lovely l E.U./dL [facility] Location:[address], [place], [address] [facility] POINT OF CARE [facility] Cardiology Visit Reporton Cardiology Visit Report [facility] 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 [facility] 09-13-2024 [facility] Telephone ([facility]) -------- BLANCA GILL ([id number]) 1950 M Date Time Provider Department 09/13/24 [...] Date Reviewed: 07/19/2024 Reviewed by: Kodi Vuong APRN.BUTTON BROACHER - Fully Assessed Reason for Visit: Patient Question [0987] Prescriptions as of 09/13/2024 - acetaminophen 325 [...] (FLONASE) 50 mcg/actuation nasal spray Use 1 [place] in each nostril once daily. - mometasone-formoterol [...] (ASTELIN, ASTEPRO) 0.1% nasal spray Use 1 [place] in the nose two times a day. [...] Regular astigmati (more content not included)... Normal [facility] Basic Metabolic Profile (BMP )on 09-10-2024 BUN/CRE 19.3 RATIO Normal - [facility] Comment on above: Performed By: #### L 501.080 #### [facility] [address] [place], [address] CA,Total 9.0 mg/dL Normal 8.5-10.1 [facility] Comment on above: Performed By: #### L 501.080 #### [facility] [address] [place], [address] Chloride [Moles/Vol] 93 mmol/L Low 98-107 [facility] Comment on above: Performed By: #### L 501.080 #### [facility] [address] [place], [address] CO2 [Moles/Vol] 39.0 mmol/L High 21.0-32.0 [facility] Comment on above: Performed By: #### L 501.080 #### [facility] [address] [place], [address] Creatinine [Mass/Vol] 1.35 mg/dL High 0.70-1.30 [facility] Comment on above: Result Comment: The validity of the calculated GFR GFRAA in patients over 70 years has not been determined. Clinical correlation is essential. Performed By: #### L 501.080 #### [facility] [address] [place], [address] EST GFR - AA 67 mL/min Normal >60 [facility] Comment on above: Result Comment: Afri can [place] GFR Calc Performed By: #### L 501.080 #### [facility] [address] [place], [address] GAP 4 Low 5-15 [facility] Comment on above: Performed By: #### L 501.080 #### [facility] [address] [place], [address] GFR/1.73 sq M.predicted among non-blacks MDRD (S/P/Bld) [Vol rate/Area] 55 mL/min/{1.73_m2} Low >60 [facility] Comment on above: Result Comment: Non- GFR Calc Performed By: #### L 501.080 #### [facility] [address] [place], [address] Glucose [Mass/Vol] 69 mg/dL Low 74-106 [facility] Comment on above: Performed By: #### L 501.080 #### [facility] [address] [place], [address] Potassium [Moles/Vol] 3.7 mmol/L Normal 3.5-5.1 [facility] Comment on above: Performed By: #### L 501.080 #### [facility] [address] [place], [address] Sodium [Moles/Vol] 136 mmol/L Normal 136-145 [facility] Comment on above: Performed By: #### L 501.080 #### [facility] [address] [place], [address] Urea nitrogen [Mass/Vol] 26 mg/dL High 7-18 [facility] Comment on above: Performed By: #### L 501.080 #### [facility] [address] [place], [address] Basic Metabolic Profile (BMP )on 09-02-2024 BUN/CRE 23.1 RATIO High 10-20 [facility] Comment on above: Performed By: #### L 501.080 #### [facility] [address] [place], [address] CA,Total 9.3 mg/dL Normal 8.5-10.1 [facility] Comment on above: Performed By: #### L 501.080 #### [facility] [address] [place], [address] Chloride [Moles/Vol] 87 mmol/L Low 98-107 [facility] Comment on above: Performed By: #### L 501.080 #### [facility] [address] [place], [address] CO2 [Moles/Vol] 36.0 mmol/L High 21.0-32.0 [facility] Comment on above: Performed By: #### L 501.080 #### [facility] [address] [place], [address] Creatinine [Mass/Vol] 1.04 mg/dL Normal 0.70-1.30 [facility] Comment on above: Result Comment: The validity of the calculated GFR GFRAA in patients over 70 years has not been determined. Clinical correlation is essential. Performed By: #### L 501.080 #### [facility] [address] [place], [address] EST GFR - AA 90 mL/min Normal >60 [facility] Comment on above: Result Comment: Afri can [place] GFR Calc Performed By: #### L 501.080 #### [facility] [address] [place], [address] GAP 5 Normal 5-15 [facility] Comment on above: Performed By: #### L 501.080 #### [facility] [address] [place], [address] GFR/1.73 sq M.predicted among non-blacks MDRD (S/P/Bld) [Vol rate/Area] 74 mL/min/{1.73_m2} Normal >60 [facility] Comment on above: Result Comment: Non- GFR Calc Performed By: #### L 501.080 #### [facility] [address] [place], [address] Glucose [Mass/Vol] 114 mg/dL High 74-106 [facility] Comment on above: Result Comment: Fast ing Glucose result from 100 to 125 mg/dL suggests IMPAIRED HOMEOSTASIS per A.D.A. criteria. Performed By: #### L 501.080 #### [facility] [address] [place], [address] Potassium [Moles/Vol] 4.0 mmol/L Normal 3.5-5.1 [facility] Comment on above: Performed By: #### L 501.080 #### [facility] [address] [place], [address] Sodium [Moles/Vol] 127 mmol/L Low 136-145 [facility] Comment on above: Performed By: #### L 501.080 #### [facility] [address] [place], [address] Urea nitrogen [Mass/Vol] 24 mg/dL High 7-18 [facility] Comment on above: Performed By: #### L 501.080 #### [facility] [address] [place], [address] Wound Ctr History AND Physic cindy 08-23-2024 Wound Ctr History & Physical [facility] [address] [place] [address] H P Exam - Wound Care 08/23/242133 MR#: [id number] Acct: [id number] Name: BLANCA GILL Rep #: [id number] : 1950 73 From: Lamin Ring MD [...] The patient was recently hospitalized at [facility] from May 06 to May 18, [...] night. He denies a history of thrombophlebitis. [facility] Medical History Swelling of left lower extremity [...] (congestive) heart failure Atherosclerotic heart disease of [place] coronary artery without angina pectoris History of [...] #45 (more content not included)... Normal [facility] Cardiology Visit Reporton Cardiology Visit Report [facility] 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 Normal [facility] Bedside Glucoseon 08-10-2024 FINGERSTICK GLU 65 mg/dL Low 74-106 [facility] Comment on above: Result Comment: BLAYNE GEMENT OF PATIENT CARE PER NURSING PROTOCOL Performed By: #### L 501.080 #### [facility] [address] [place], [address] FINGERSTICK GLU 53 mg/dL Low 74-106 [facility] Comment on above: Result Comment: BLAYNE GEMENT OF PATIENT CARE PER NURSING PROTOCOL Performed By: #### L 501.080 #### [facility] [address] [place], [address] Pulmonary Visit Reporton Pulmonary Visit Report [facility] [place] [address] [place] [address] OFFICE VISIT Date of Service: 08/09/24 MR#: [id number] Acct: [id number] Name: BLANCA GILL Rep #: [id number] : 1950 Provider: CASEY Vasquez Age/Sex: 73/M Location: [facility] Status: Signed Assessment and Plan Assessment [...] Plan Details Follow Up: 2 Months (LMR) [facility] FU Chief Complaint: Shortness of breath HPI Comments Details: This patient presents to the office today to discuss his cough. He is ambulatory, and on supplemental oxygen. He was recently hospitalized at [facility] from May 06, 2024 through May 18, [...] 98 (more content not included)... Normal [facility]tr History AND Physic cindy 08-09-2024 Wound Ctr History & Physical [facility] [address] [place] [address] H P Exam - Wound Care 08/09/24 1900 MR#: [id number] Acct: [id number] Name: BLANCA GILL Rep #: [id number] : 1950 73 From: Lamin Ring MD [...] The patient was recently hospitalized at [facility] from May 06 to May 18, [...] night. He denies a history of thrombophlebitis. [facility] Medical History Swelling of left lower extremity [...] (congestive) heart failure Atherosclerotic heart disease of chit[place] coronary artery without angina pectoris History of [...] #45 (more content not included)... Normal [facility]tr History AND Physic cindy 08-04-2024 Wound Ctr History & Physical [facility] [address] [place] [address] H P Exam - Wound Care 08/04/24 1526 MR#: [id number] Acct: [id number] Name: BLANCA GILL Rep #: [id number] : 1950 73 From: Lamin Ring MD PCP: Dr. aMya Pradhan, DO Status:REG [facility] Location: History of Present Illness Date of [...] patient has recently been hospitalized at [facility] from May 06 to May 18, [...] night. He denies a history of thrombophlebitis. [facility] Medical History (Updated 08/04/24 @ 21:49 by [...] (congestive) heart failure Atherosclerotic heart disease of chit[place] coronary artery without angina pectoris History of [...] 03/ (more content not included)... Normal [facility] BNP,B-Type NATRIURETIC PEPTI Massimo 07-28-2024 Natriuretic peptide B (Bld) [Mass/Vol] 93.7 pg/mL Normal 0-100 [facility] Comment on above: Performed By: #### L 500.4050, L503.6620 #### [facility] [address] [place], [place], [address] Cardiology Visit Reporton Cardiology Visit Report [facility] [address] [place] [address] OFFICE VISIT Date of Service: 07/28/24 MR#: [id number] Acct: [id number] Name: BLANCA GILL Rep #: [id number] : 1950 Provider: Dr. 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 Normal [facility] Comprehensive Metabolic Prof ilon 07-28-2024 Albumin [Mass/Vol] 3.2 g/dL Normal 3.2-5.0 [facility] Comment on above: Performed By: #### L 500.4050, L503.6620 #### [facility] [address] [place], [address] Albumin/Globulin [Mass ratio] 0.8 {ratio} Low 0.9-2.4 [facility] Comment on above: Performed By: #### L 500.4050, L503.6620 #### [facility] [address] [place], [address] ALK P 64 U/L Normal 45-117 [facility] Comment on above: Performed By: #### L 500.4050, L503.6620 #### [facility] [address] [place], [address] ALT [Catalytic activity/Vol] 22 U/L Normal 16-61 [facility] Comment on above: Performed By: #### L 500.4050, [id number] #### [facility] [address] [place], [address] AST [Catalytic activity/Vol] 8 U/L Low 15-37 [facility] Comment on above: Performed By: #### L 500.4050, [id number] #### [facility] [address] [place], [address] Bilirubin [Mass/Vol] 0.50 mg/dL Normal 0.20-1.00 [facility] Comment on above: Result Comment: For patients on eltrombopag therapy, use of Dimension [place] TBIL is not recommended. Performed By: #### L 500.4050, [id number] #### [facility] [address] [place], [address] BUN/CRE 18.1 RATIO Normal 10-20 [facility] Comment on above: Performed By: #### L 500.4050, [id number] #### [facility] [address] [place], [address] CA,Total 9.2 mg/dL Normal 8.5-10.1 [facility] Comment on above: Performed By: #### L 500.4050, [id number] #### [facility] [address] [place], [address] Chloride [Moles/Vol] 100 mmol/L Normal 98-107 [facility] Comment on above: Performed By: #### L 500.4050, [id number] #### [facility] [address] [place], [address] CO2 [Moles/Vol] 36.0 mmol/L High 21.0-32.0 [facility] Comment on above: Performed By: #### L 500.4050, [id number] #### [facility] [address] [place], [address] Creatinine [Mass/Vol] 1.05 mg/dL Normal 0.70-1.30 [facility] Comment on above: Result Comment: The validity of the calculated GFR GFRAA in patients over 70 years has not been determined. Clinical correlation is essential. Performed By: #### L 500.4050, [id number] #### [facility] [address] [place], [address] EST GFR - AA 89 mL/min Normal >60 [facility] Comment on above: Result Comment: Afri can [place] GFR Calc Performed By: #### L 500.4050, [id number] #### [facility] [address] [place], [address] GAP 3 Low 5-15 [facility] Comment on above: Performed By: #### L 500.4050, [id number] #### [facility] [address] [place], [address] GFR/1.73 sq M.predicted among non-blacks MDRD (S/P/Bld) [Vol rate/Area] 74 mL/min/{1.73_m2} Normal >60 [facility] Comment on above: Result Comment: Non- GFR Calc Performed By: #### L 500.4050, [id number] #### [facility] [address] [place], [address] Globulin (S) [Mass/Vol] 4.0 g/dL Normal 2.2-4.2 [facility] Comment on above: Performed By: #### L 500.4050, [id number] #### [facility] [address] [place], [address] Glucose [Mass/Vol] 82 mg/dL Normal 74-106 [facility] Comment on above: Performed By: #### L 500.4050, [id number] #### [facility] [address] [place], [address] Potassium [Moles/Vol] 4.2 mmol/L Normal 3.5-5.1 [facility] Comment on above: Performed By: #### L 500.4050, [id number] #### [facility] [address] [place], [address] Sodium [Moles/Vol] 138 mmol/L Normal 136-145 [facility] Comment on above: Performed By: #### L 500.4050, [id number] #### [facility] [address] [place], [address] T PROT 7.2 g/dL Normal 6.4-8.2 [facility] Comment on above: Performed By: #### L 500.4050, [id number] #### [facility] [address] [place], [place], [id number] Urea nitrogen [Mass/Vol] 19 mg/dL High 7-18 [facility] Comment on above: Performed By: #### L 500.4050, [id number] #### [facility] [address] [place], [place], [address] CNOVon 07-19-2024 [facility] -------- JAIROBLANCA ([id number]) 1950 M Date Time Provider Department 07/19/24 7:30 AM KODI VUONG [facility] During your visit today, we recorded the [...] Date Reviewed: 07/19/2024 Reviewed by: Kodi Vuong APRN.BUTTON [employer]OACHER - Fully Assessed Reason for Visit: Rash [...] - C (more content not included)... Normal [facility] UA DIP, URINE (POC)on 2023 BILIRUBIN UA (POCT) Negative Negative [facility] CLARITY UA (POCT) [facility] COLOR UA (POCT) Yellow [facility] GLUCOSE UA (POCT) Negative Negative mg/dL [facility] Hemoglobin Ql (U) Negative Negative [facility] Interpretation and review of laboratory results Abnormal [facility] KETONE UA (POCT) Negative Negative mg/dL [facility] LEUKOCYTES UA (POCT) Negative [facility] NITRITE UA (POCT) Negative Negative [facility] PH UA (POCT) 8.5 Abnormal 4.5 - 8.0 [facility] Protein Ql (U) Trace Abnormal Negative mg/dL [facility] SPECIFIC GRAVITY UA (POCT) 1.015 1.005 - 1.030 [facility] UROBILINOGEN UA (POCT) 0.2 Lovely l E.U./dL [facility] Location:[facility], [address] [place] [address], [address] [facility] POINT OF CARE [facility] UA DIP, URINE (POC)on 2023 BILIRUBIN UA (POCT) Negative Negative [facility] CLARITY UA (POCT) [facility] COLOR UA (POCT) Yellow [facility] GLUCOSE UA (POCT) Negative Negative mg/dL [facility] Hemoglobin Ql (U) Negative Negative [facility] KETONE UA (POCT) Negative Negative mg/dL [facility] LEUKOCYTES UA (POCT) Negative Negative [facility] NITRITE UA (POCT) Negative Negative [facility] PH UA (POCT) 6.5 4.5 - 8.0 [facility] Protein Ql (U) Negative Negative mg/dL [facility] SPECIFIC GRAVITY UA (POCT) 1.015 1.005 - 1.030 [facility] UROBILINOGEN UA (POCT) 0.2 Lovely l E.U./dL [facility] Location:[facility], [address] [place] [address], [address] [facility] POINT OF CARE [facility] LABORATORYOrdered By: SYSTEM SYSTEM on 02-01-2024 Prostate specific Ag [Mass/Vol] 1.47 ng/mL Normal 0.00 - 4.00 ng/mL AO ADM SS PSAon 02-01-2024 Prostate Specific Antigen 1.47 ng/mL Normal 0.00-4.00 [facility] ([place]) Comment on above: Performed By: #### P #### [address] [place], [place] [address] Absolute lymphocyte countOrd ered By: Carlos Eduardo Hinds on 01-14-2024 Lymphocytes Auto (Unsp spec) [#/Vol] 2.25 10*3/uL 0.83-4.51 [facility] Automated lymphocyte count a s percentage of total leukocytesOrdered By: Carlos Eduardo Hinds on 01-14-2024 Lymphocytes/100 WBC Auto (Unsp spec) 25.3 % 19-41 [facility] Basophil percentageOrdered B y: Carlos Eduardo Hinds on 01-14-2024 Basophils/100 WBC (Bld) 0.4 % 0-1 [facility] Chloride [Moles/Vol] 94 mmol/L 98-107 [facility] Eosinophils/100 WBC (Bld) 2.6 % 0-5 [facility] Glucose [Mass/Vol] 95 mg/dL 74-106 [facility] Hemoglobin (Bld) [Mass/Vol] 12.9 g/dL 13.0-16.5 [facility] Monocytes/100 WBC (Bld) 12.1 % 0-10 [facility] Neutrophils (Bld) [#/Vol] 5.2 10*3/uL 2.0-7.7 [facility] Neutrophils/100 WBC (Bld) 58.9 % 47-70 [facility] Potassium [Moles/Vol] 3.9 mmol/L 3.5-5.1 [facility] Sodium [Moles/Vol] 134 mmol/L 136-145 [facility] WBC (Bld) [#/Vol] 8.9 10*3/uL 4.4-11.0 [facility] Determination of erythrocyte mean corpuscular volume (MCV)Ordered By: Carlos Eduardo Hinds on 01-14-2024 MCV (RBC) [Entitic vol] 85.4 fL 80-94 [facility] Erythrocyte distribution wid th ratioOrdered By: Carlos Eduardo Hinds on 01-14-2024 Erythrocyte distribution width (RBC) [Ratio] 16.2 % 11.6-14.6 [facility] Erythrocyte distribution wid th standard deviationOrdered By: Carlos Eduardo Hinds on 01-14-2024 Erythrocyte distribution width (RBC) [Entitic vol] 51.2 fL 35.1-43.9 [facility] Hematocrit Auto (Bld) [Volum e fraction]Ordered By: Carlos Eduardo Hinds on 01-14-2024 Hematocrit (Bld) [Volume fraction] 41.6 % 40-54 [facility] Immature granulocytes/100 WB C Auto (Bld)Ordered By: Carlos Eduardo Hinds on 01-14-2024 Immature granulocytes/100 WBC (Bld) 0.700 % 0.0-0.9 [facility] Comment on above: IG% - Immature Granu locytes (promyelocytes, myelocytes and metamyelocytes) > 1% indicates that a LEFT SHIFT is Present. Laboratory - Chemistry and C hemistry - challengeOrdered By: Carlos Eduardo Hinds on 01-14-2024 CO2 [Moles/Vol] 37.0 mmol/L 21.0-32.0 [facility] Urea nitrogen/Creatinine [Mass ratio] 15.7 mg/mg 10-20 [facility] - Hematology and Cell countsOrdered By: Carlos Eduardo Hinds on 01-14-2024 MCH (RBC) [Entitic mass] 26.5 pg 27.0-32.0 [facility] MCHC (RBC) [Mass/Vol] 31.0 g/dL 32-36 [facility] Nucleated RBC/100 WBC (Bld) [Ratio] 0 % 0-5 [facility] Platelet mean volume (Bld) [Entitic vol] 10.4 fL 6.2-12.0 [facility] Platelets (Bld) [#/Vol] 269 10*3/uL 150-450 [facility] No Panel InformationOrdered By: Carlos Eduardo Hinds on 01-14-2024 Estimated GFR (MDRD) Amer 76 mL/min >60 [facility] Comment on above: GFR Calc Estimated GFR (MDRD) Non-Af Amer 63 mL/min >60 [facility] Comment on above: Non- GFR Calc RBC Auto (Bld) [#/Vol]Ordere d By: Carlos Eduardo Hinds on 01-14-2024 RBC (Bld) [#/Vol] 4.87 10*6/uL 4.6-6.2 [facility] Serum or plasma calcium ale urement (mass/volume)Ordered By: Carlos Eduardo Hinds on 01-14-2024 Calcium [Mass/Vol] 9.4 mg/dL 8.5-10.1 [facility] Serum or plasma creatinine m easurement (mass/volume)Ordered By: Carlos Eduardo Hinds on 01-14-2024 Creatinine [Mass/Vol] 1.21 mg/dL 0.70-1.30 [facility] Comment on above: The validity of the calculated GFR & GFRAA in patients over 70 years has not been determined. Clinical correlation is essential. Serum or plasma urea nitroge n measurement (mass/volume)Ordered By: Carlos Eduardo Hinds on 01-14-2024 Urea nitrogen [Mass/Vol] 19 mg/dL 7-18 [facility] Thin prep Papanicolaou smear with manual screeningOrdered By: Carlos Eduardo Hinds on 01-14-2024 Thin prep Papanicolaou smear with manual screening 3 5-15 [facility] PSAon 12-18-2023 Prostate Specific Antigen 8.07 ng/mL High 0.00-4.00 [facility] ([place]) Comment on above: Performed By: #### P SA #### [address] [address] Basophil percentageOrdered B y: Alex Valeriy on 12-10-2023 Bilirubin [Mass/Vol] 0.60 mg/dL 0.20-1.00 [facility] Comment on above: For patients on eltr ombopag therapy, use of Dimension [place] TBIL is not recommended. Chloride [Moles/Vol] 100 mmol/L 98-107 [facility] Cholesterol [Mass/Vol] 194 mg/dL <200 [facility] Comment on above: <200 mg/dL Desirable 200-240 mg/dL Borderline >240 mg/dL High Risk Glucose [Mass/Vol] 115 mg/dL 74-106 [facility] Comment on above: Fasting Glucose resu lt from 100 to 125 mg/dL suggests IMPAIRED HOMEOSTASIS per A.D.A. criteria. Potassium [Moles/Vol] 4.4 mmol/L 3.5-5.1 [facility] Protein [Mass/Vol] 7.3 g/dL 6.4-8.2 [facility] Sodium [Moles/Vol] 136 mmol/L 136-145 [facility] Triglyceride [Mass/Vol] 95 mg/dL <199 [facility] Comment on above: The drugs N-Acetylcy steine and Metamizole may falsely depress this assay.Serum Triglycerides Reference Interval Normal <150 mg/dL Borderline high 150 - 199 mg/dL High 200 - 499 mg/dL Very High > or = 500 mg/dL Laboratory - Chemistry and C hemistry - challengeOrdered By: Alex Crooks on 12-10-2023 Albumin/Globulin [Mass ratio] 0.8 {ratio} 0.9-2.4 [facility] ALP [Catalytic activity/Vol] 52 U/L 45-117 [facility] ALT [Catalytic activity/Vol] 24 U/L 16-61 [facility] Cholesterol in HDL [Mass/Vol] 45 mg/dL >40 [facility] Comment on above: The drugs N-Acetylcy steine and Metamizole may falsely depress this assay. Reference Range HDL <40 mg/dL Low HDL Cholesterol HDL >or= 60 mg/dL High HDL Cholesterol Cholesterol in LDL [Mass/Vol] 130 mg/dL 0-130 [facility] CO2 [Moles/Vol] 33.0 mmol/L 21.0-32.0 [facility] Globulin (S) [Mass/Vol] 4.1 g/dL 2.2-4.2 [facility] Natriuretic peptide B (Bld) [Mass/Vol] 109.5 pg/mL 0-100 [facility] Urea nitrogen/Creatinine [Mass ratio] 13.4 mg/mg 10-20 [facility] No Panel InformationOrdered By: Alex Crooks on 12-10-2023 Estimated GFR (MDRD) Amer 77 mL/min >60 [facility] Comment on above: GFR Calc Estimated GFR (MDRD) Non-Af Amer 64 mL/min >60 [facility] Comment on above: Non- GFR Calc VLDL Cholesterol 19 mg/dL 5-40 [facility] Serum or plasma calcium ale urement (mass/volume)Ordered By: Alex Crooks on 12-10-2023 Calcium [Mass/Vol] 9.0 mg/dL 8.5-10.1 [facility] Serum or plasma creatinine m easurement (mass/volume)Ordered By: Alex Crooks on 12-10-2023 Creatinine [Mass/Vol] 1.19 mg/dL 0.70-1.30 [facility] Comment on above: The validity of the calculated GFR & GFRAA in patients over 70 years has not been determined. Clinical correlation is essential. Serum or plasma urea nitroge n measurement (mass/volume)Ordered By: Alex Crooks on 12-10-2023 Urea nitrogen [Mass/Vol] 16 mg/dL 7-18 [facility] Thin prep Papanicolaou smear with manual screeningOrdered By: Alexgenevieve Crooks on 12-10-2023 Thin prep Papanicolaou smear with manual screening 3.2 g/dL 3.2-5.0 [facility] Thin prep Papanicolaou smear with manual screening 13 U/L 15-37 [facility] Thin prep Papanicolaou smear with manual screening 3 5-15 [facility] Basophil percentageOrdered B y: Chema Payan on 09-30-2023 Chloride [Moles/Vol] 97 mmol/L 98-107 [facility] Glucose [Mass/Vol] 105 mg/dL 74-106 [facility] Comment on above: Fasting Glucose resu lt from 100 to 125 mg/dL suggests IMPAIRED HOMEOSTASIS per A.D.A. criteria. Hemoglobin (Bld) [Mass/Vol] 12.4 g/dL 13.0-16.5 [facility] Potassium [Moles/Vol] 4.1 mmol/L 3.5-5.1 [facility] Sodium [Moles/Vol] 136 mmol/L 136-145 [facility] WBC (Bld) [#/Vol] 6.9 10*3/uL 4.4-11.0 [facility] Determination of erythrocyte mean corpuscular volume (MCV)Ordered By: Chema Payan on 09-30-2023 MCV (RBC) [Entitic vol] 83.7 fL 80-94 [facility] Erythrocyte distribution wid th ratioOrdered By: Chema Payan on 09-30-2023 Erythrocyte distribution width (RBC) [Ratio] 18.1 % 11.6-14.6 [facility] Erythrocyte distribution wid th standard deviationOrdered By: Chema Payan on 09-30-2023 Erythrocyte distribution width (RBC) [Entitic vol] 54.8 fL 35.1-43.9 [facility] Hematocrit Auto (Bld) [Volum e fraction]Ordered By: Chema Payan on 09-30-2023 Hematocrit (Bld) [Volume fraction] 41.5 % 40-54 [facility] - Chemistry and C hemistry - challengeOrdered By: Chema Payan on 09-30-2023 CO2 [Moles/Vol] 37.0 mmol/L 21.0-32.0 [facility] Urea nitrogen/Creatinine [Mass ratio] 15.4 mg/mg 10-20 [facility] - Hematology and Cell countsOrdered By: Chema Payan on 09-30-2023 MCH (RBC) [Entitic mass] 25.0 pg 27.0-32.0 [facility] MCHC (RBC) [Mass/Vol] 29.9 g/dL 32-36 [facility] Platelets (Bld) [#/Vol] 326 10*3/uL 150-450 [facility] No Panel InformationOrdered By: Chema Payan on 09-30-2023 Estimated Creatinine Clearance Calc 76.98 ml/min [facility] Estimated GFR (MDRD) Amer 90 mL/min >60 [facility] Comment on above: GFR Calc Estimated GFR (MDRD) Non-Af Amer 75 mL/min >60 [facility] Comment on above: Non- GFR Calc Platelet mean volume Julien-Ec ker (Bld) [Entitic vol]Ordered By: Chema Payan on 09-30-2023 Platelet mean volume (Bld) [Entitic vol] 9.2 fL 6.2-12.0 [facility] RBC Auto (Bld) [#/Vol]Ordere d By: Chema Payan on 09-30-2023 RBC (Bld) [#/Vol] 4.96 10*6/uL 4.6-6.2 [facility] Serum or plasma calcium ale urement (mass/volume)Ordered By: Chema Payan on 09-30-2023 Calcium [Mass/Vol] 9.4 mg/dL 8.5-10.1 [facility] Serum or plasma creatinine m easurement (mass/volume)Ordered By: Chema Payan on 09-30-2023 Creatinine [Mass/Vol] 1.04 mg/dL 0.70-1.30 [facility] Comment on above: The validity of the calculated GFR & GFRAA in patients over 70 years has not been determined. Clinical correlation is essential. Serum or plasma urea nitroge n measurement (mass/volume)Ordered By: Chema Payan on 09-30-2023 Urea nitrogen [Mass/Vol] 16 mg/dL 7-18 [facility] Thin prep Papanicolaou smear with manual screeningOrdered By: Chema Payan on 09-30-2023 Thin prep Papanicolaou smear with manual screening 2 5-15 [facility] Absolute lymphocyte countOrd ered By: Pavan Nolan on 07-30-2023 Lymphocytes Auto (Unsp spec) [#/Vol] 1.25 10*3/uL 0.83-4.51 [facility] Basophil percentageOrdered B y: Pavan Nolan on 07-30-2023 Basophils/100 WBC (Bld) 0.7 % 0-1 [facility] Bilirubin [Mass/Vol] 0.40 mg/dL 0.20-1.00 [facility] Comment on above: For patients on eltr ombopag therapy, use of Dimension [place] TBIL is not recommended. Chloride [Moles/Vol] 84 mmol/L 98-107 [facility] Cholesterol [Mass/Vol] 143 mg/dL <200 [facility] Comment on above: <200 mg/dL Desirable 200-240 mg/dL Borderline >240 mg/dL High Risk Eosinophils/100 WBC (Bld) 3.4 % 0-5 [facility] Glucose [Mass/Vol] 137 mg/dL 74-106 [facility] Comment on above: Fasting Glucose resu lt greater than or equal to 126 mg/dL suggests DIABETES MELLITUS per A.D.A. criteria. Neutrophils (Bld) [#/Vol] 4.3 10*3/uL 2.0-7.7 [facility] Neutrophils/100 WBC (Bld) 62.4 % 47-70 [facility] Potassium [Moles/Vol] 4.0 mmol/L 3.5-5.1 [facility] Comment on above: Slight Hemolysis, Re sult may be falsely increased. Protein [Mass/Vol] 7.5 g/dL 6.4-8.2 [facility] Sodium [Moles/Vol] 129 mmol/L 136-145 [facility] Triglyceride [Mass/Vol] 103 mg/dL <199 [facility] Comment on above: The drugs N-Acetylcy steine and Metamizole may falsely depress this assay.Serum Triglycerides Reference Interval Normal <150 mg/dL Borderline high 150 - 199 mg/dL High 200 - 499 mg/dL Very High > or = 500 mg/dL WBC (Bld) [#/Vol] 7.0 10*3/uL 4.4-11.0 [facility] Blood erythrocytes count (nu mber/volume)Ordered By: Pavan Nolan on 07-30-2023 RBC (Bld) [#/Vol] 5.06 10*6/uL 4.6-6.2 [facility] Blood hemoglobin measurement (mass/volume)Ordered By: Pavan Nolan on 07-30-2023 Hemoglobin (Bld) [Mass/Vol] 12.7 g/dL 13.0-16.5 [facility] Blood lymphocytes/100 leukoc ytesOrdered By: Pavan Nolan on 07-30-2023 Lymphocytes/100 WBC (Bld) 18.0 % 19-41 [facility] Blood monocytes/100 leukocyt esOrdered By: Pavan Nolan on 07-30-2023 Monocytes/100 WBC (Bld) 15.2 % 0-10 [facility] Blood platelet mean volumeOr dered By: Pavan Nolan on 07-30-2023 Platelet mean volume (Bld) [Entitic vol] 10.0 fL 6.2-12.0 [facility] Determination of erythrocyte mean corpuscular volume (MCV)Ordered By: Pavan Nolan on 07-30-2023 MCV (RBC) [Entitic vol] 82.8 fL 80-94 [facility] Erythrocyte sedimentation ra teOrdered By: Pavan Nolan on 07-30-2023 ESR (Bld) [Velocity] 87 mm/h 0-20 [facility] Hematocrit Auto (Bld) [Volum e fraction]Ordered By: Pavan Nolan on 07-30-2023 Hematocrit (Bld) [Volume fraction] 41.9 % 40-54 [facility] - Chemistry and C hemistry - challengeOrdered By: Pavan Nolan on 07-30-2023 ALP [Catalytic activity/Vol] 54 U/L 45-117 [facility] ALT [Catalytic activity/Vol] 37 U/L 16-61 [facility] CO2 [Moles/Vol] 40.0 mmol/L 21.0-32.0 [facility] Globulin (S) [Mass/Vol] 4.8 g/dL 2.2-4.2 [facility] Urea nitrogen/Creatinine [Mass ratio] 11.1 mg/mg 10-20 [facility] - Hematology and Cell countsOrdered By: Pavan Nolan on 07-30-2023 Erythrocyte distribution width (RBC) [Entitic vol] 46.8 fL 35.1-43.9 [facility] Erythrocyte distribution width (RBC) [Ratio] 15.6 % 11.6-14.6 [facility] Immature granulocytes/100 WBC (Bld) 0.300 % 0.0-0.9 [facility] Comment on above: IG% - Immature Granu locytes (promyelocytes, myelocytes and metamyelocytes) > 1% indicates that a LEFT SHIFT is Present. MCH (RBC) [Entitic mass] 25.1 pg 27.0-32.0 [facility] Nucleated RBC/100 WBC (Bld) [Ratio] 0 % 0-5 [facility] MCHC Auto (RBC) [Mass/Vol]Or dered By: Pavan Nolan on 07-30-2023 MCHC (RBC) [Mass/Vol] 30.3 g/dL 32-36 [facility] No Panel InformationOrdered By: Pavan Nolan on 07-30-2023 Estimated GFR (MDRD) Amer 96 mL/min >60 [facility] Comment on above: GFR Calc Estimated GFR (MDRD) Non-Af Amer 79 mL/min >60 [facility] Comment on above: Non- GFR Calc Platelets bldOrdered By: Gerson clarklivia Nolan on 07-30-2023 Platelets (Bld) [#/Vol] 309 10*3/uL 150-450 [facility] Serum or plasma albumin ale urement (mass/volume)Ordered By: Pavan Nolan on 07-30-2023 Albumin [Mass/Vol] 2.7 g/dL 3.2-5.0 [facility] Serum or plasma albumin/glob ulin mass ratioOrdered By: Pavan Nolan on 07-30-2023 Albumin/Globulin [Mass ratio] 0.6 {ratio} 0.9-2.4 [facility] Serum or plasma calcium ale urement (mass/volume)Ordered By: Pavan Nolan on 07-30-2023 Calcium [Mass/Vol] 8.8 mg/dL 8.5-10.1 [facility] Serum or plasma cholesterol in HDL measurement (mass/volume)Ordered By: Pavan Nolan on 07-30-2023 Cholesterol in HDL [Mass/Vol] 38 mg/dL >40 [facility] Comment on above: The drugs N-Acetylcy steine and Metamizole may falsely depress this assay. Reference Range HDL <40 mg/dL Low HDL Cholesterol HDL >or= 60 mg/dL High HDL Cholesterol Serum or plasma cholesterol in VLDL measurement (mass/volume)Ordered By: Pavan Nolan on 07-30-2023 Cholesterol in VLDL [Mass/Vol] 21 mg/dL 5-40 [facility] Serum or plasma creatinine m easurement (mass/volume)Ordered By: Pavan Nolan on 07-30-2023 Creatinine [Mass/Vol] 0.99 mg/dL 0.70-1.30 [facility] Comment on above: The validity of the calculated GFR & GFRAA in patients over 70 years has not been determined. Clinical correlation is essential. Serum or plasma low density lipoprotein (LDL) cholesterol measurement (mass/volume)Ordered By: Pavan Nolan on 07-30-2023 Cholesterol in LDL [Mass/Vol] 84 mg/dL 0-130 [facility] Serum or plasma urea nitroge n measurement (mass/volume)Ordered By: Pavan Nolan on 07-30-2023 Urea nitrogen [Mass/Vol] 11 mg/dL 7-18 [facility] Thin prep Papanicolaou smear with manual screeningOrdered By: Bolivarskiplivia Nolan on 07-30-2023 Thin prep Papanicolaou smear with manual screening 38 U/L 15-37 [facility] Comment on above: Slight Hemolysis, Re sult may be falsely increased. Thin prep Papanicolaou smear with manual screening 5 5-15 [facility] Basophil percentageOrdered B y: Stewart Dukes on 07-28-2023 Chloride [Moles/Vol] 86 mmol/L 98-107 [facility] Glucose [Mass/Vol] 153 mg/dL 74-106 [facility] Comment on above: Fasting Glucose resu lt greater than or equal to 126 mg/dL suggests DIABETES MELLITUS per A.D.A. criteria. Potassium [Moles/Vol] 3.8 mmol/L 3.5-5.1 [facility] Sodium [Moles/Vol] 130 mmol/L 136-145 [facility] COVID-19 virus antigen assay Ordered By: Chema Zambrano on 07-28-2023 SARS-CoV-2 (COVID-19) Ag IA.rapid Ql (Resp) [facility] Glucose Glucometer (BldC) [M ass/Vol]Ordered By: Chema Zambrano on 07-28-2023 Glucose [Mass/Vol] 156 mg/dL 74-106 [facility] Comment on above: MANAGEMENT OF PATIEN T CARE PER NURSING PROTOCOL Laboratory - Chemistry and C hemistry - challengeOrdered By: Stewart Dukes on 07-28-2023 CO2 [Moles/Vol] 38.0 mmol/L 21.0-32.0 [facility] Urea nitrogen/Creatinine [Mass ratio] 16.1 mg/mg 10-20 [facility] No Panel InformationOrdered By: Stewart Dukes on 07-28-2023 Estimated Creatinine Clearance Calc 75.34 ml/min [facility] Estimated GFR (MDRD) Amer 111 mL/min >60 [facility] Comment on above: GFR Calc Estimated GFR (MDRD) Non-Af Amer 92 mL/min >60 [facility] Comment on above: Non- GFR Calc Serum or plasma calcium ale urement (mass/volume)Ordered By: Stewart Dukes on 07-28-2023 Calcium [Mass/Vol] 8.5 mg/dL 8.5-10.1 [facility] Serum or plasma creatinine m easurement (mass/volume)Ordered By: Stewart Dukes on 07-28-2023 Creatinine [Mass/Vol] 0.87 mg/dL 0.70-1.30 [facility] Comment on above: The validity of the calculated GFR & GFRAA in patients over 70 years has not been determined. Clinical correlation is essential. Serum or plasma urea nitroge n measurement (mass/volume)Ordered By: Stewart Dukes on 07-28-2023 Urea nitrogen [Mass/Vol] 14 mg/dL 7-18 [facility] Thin prep Papanicolaou smear with manual screeningOrdered By: Stewart Dukes on 07-28-2023 Thin prep Papanicolaou smear with manual screening 6 5-15 [facility] Absolute lymphocyte countOrd ered By: Stewart Dukes on 07-26-2023 Lymphocytes Auto (Unsp spec) [#/Vol] 1.14 10*3/uL 0.83-4.51 [facility] Basophil percentageOrdered B y: Stewart Dukes on 07-26-2023 Basophils/100 WBC (Bld) 0.3 % 0-1 [facility] Eosinophils/100 WBC (Bld) 3.1 % 0-5 [facility] Neutrophils (Bld) [#/Vol] 5.9 10*3/uL 2.0-7.7 [facility] Neutrophils/100 WBC (Bld) 66.4 % 47-70 [facility] WBC (Bld) [#/Vol] 9.0 10*3/uL 4.4-11.0 [facility] Blood erythrocytes count (nu mber/volume)Ordered By: Stewart Dukes on 07-26-2023 RBC (Bld) [#/Vol] 4.62 10*6/uL 4.6-6.2 [facility] Blood hemoglobin measurement (mass/volume)Ordered By: Stewart Dukes on 07-26-2023 Hemoglobin (Bld) [Mass/Vol] 11.8 g/dL 13.0-16.5 [facility] Blood lymphocytes/100 leukoc ytesOrdered By: Stewart Dukes on 07-26-2023 Lymphocytes/100 WBC (Bld) 12.7 % 19-41 [facility] Blood manual differential co mment interpretation (narrative result)Ordered By: Stewart Dukes on 07-26-2023 Manual differential comment Boom (Bld) [Interp] SCANNED [facility] Blood monocytes/100 leukocyt esOrdered By: Stewart Dukes on 07-26-2023 Monocytes/100 WBC (Bld) 17.2 % 0-10 [facility] Blood platelet mean volumeOr dered By: Stewart Dukes on 07-26-2023 Platelet mean volume (Bld) [Entitic vol] 9.4 fL 6.2-12.0 [facility] Determination of erythrocyte mean corpuscular volume (MCV)Ordered By: Stewart Dukes on 07-26-2023 MCV (RBC) [Entitic vol] 85.9 fL 80-94 [facility] Hematocrit Auto (Bld) [Volum e fraction]Ordered By: Stewart Dukes on 07-26-2023 Hematocrit (Bld) [Volume fraction] 39.7 % 40-54 [facility] Laboratory - Hematology and Cell countsOrdered By: Stewart Dukes on 07-26-2023 Erythrocyte distribution width (RBC) [Entitic vol] 47.5 fL 35.1-43.9 [facility] Erythrocyte distribution width (RBC) [Ratio] 15.1 % 11.6-14.6 [facility] Immature granulocytes/100 WBC (Bld) 0.300 % 0.0-0.9 [facility] Comment on above: IG% - Immature Granu locytes (promyelocytes, myelocytes and metamyelocytes) > 1% indicates that a LEFT SHIFT is Present. MCH (RBC) [Entitic mass] 25.5 pg 27.0-32.0 [facility] Nucleated RBC/100 WBC (Bld) [Ratio] 0 % 0-5 [facility] MCHC Auto (RBC) [Mass/Vol]Or dered By: Stewart Dukes on 07-26-2023 MCHC (RBC) [Mass/Vol] 29.7 g/dL 32-36 [facility] Platelets bldOrdered By: Edy Dukes on 07-26-2023 Platelets (Bld) [#/Vol] 275 10*3/uL 150-450 [facility] Serum or plasma trough vanco mycin levelOrdered By: Emmett Guerrero on 07-25-2023 Vancomycin trough [Mass/Vol] 16.4 ug/mL 5.0-15.0 [facility] Comment on above: VANCOMYCIN STANDARED DRUG THERAPY TROUGH LEVEL: 5.0 - 15.0 mg/L VANCOMYCIN HIGH INTENSITY THERAPY TROUGH LEVEL: 15.0 - 20.0 mg/L High Intensity therapy recommended for serious lifethreatening infections include:- Nlmocxcibx-Svolhejqlcbj-Xknhoowgp (Ventilator/Healtcare Associated)-Sepsis PLEASE CONTACT PHARMACY SERVICES (#[id number]) FOR INTERPRETATIONOF RESULTS. Serum or plasma vancomycin m easurement (mass/volume)Ordered By: Emmett Guerrero on 07-24-2023 Vancomycin [Mass/Vol] 15.1 ug/mL 0.0-15.0 [facility] Comment on above: VANCOMYCIN STANDARD DRUG THERAPY: CRITICAL VALUE IS > 15.0 mg/L VANCOMYCIN HIGH INTENSITY THERAPY: CRITICAL VALUE IS > 20.0 mg/L PLEASE CONTACT PHARMACY SERVICES (#[id number]) FOR INTERPRETATIONOF RESULTS. THIS RESULT DOES NOT REPRESENT A PEAK OR TROUGHLEVEL FOR THIS DRUG. Bacteria identified Cx Nom ( Wound)Ordered By: Stewart Dukes on 07-23-2023 Wound Culture Serratia marcescens [facility] Wound Culture Negative [facility] Basophil percentageOrdered B y: Emmett Guerrero on 07-23-2023 Bilirubin [Mass/Vol] 1.00 mg/dL 0.20-1.00 [facility] Comment on above: For patients on eltr ombopag therapy, use of Dimension [place] TBIL is not recommended. Protein [Mass/Vol] 7.1 g/dL 6.4-8.2 [facility] Gram stain for investigation of transfusion reactionOrdered By: Stewart Dukes on 07-23-2023 Microscopic observation Gram stain Nom (Unsp spec) [facility] - Chemistry and C hemistry - challengeOrdered By: Emmett Guerrero on 07-23-2023 ALP [Catalytic activity/Vol] 62 U/L 45-117 [facility] ALT [Catalytic activity/Vol] 31 U/L 16-61 [facility] Globulin (S) [Mass/Vol] 4.1 g/dL 2.2-4.2 [facility] No Panel InformationOrdered By: Stewart Dukes on 07-23-2023 Methicillin-Resist S.aureus DNA PCR Negative Negative [facility] Serum or plasma albumin ale urement (mass/volume)Ordered By: Emmett Guerrero on 07-23-2023 Albumin [Mass/Vol] 3.0 g/dL 3.2-5.0 [facility] Serum or plasma albumin/glob ulin mass ratioOrdered By: Emmett Guerrero on 07-23-2023 Albumin/Globulin [Mass ratio] 0.7 {ratio} 0.9-2.4 [facility] Staphylococcus aureus DNA de tection by probe and target amplification methodOrdered By: Stewart Dukes on 07-23-2023 S. aureus DNA CHRISTI+probe Ql (Unsp spec) Positive Negative [facility] Thin prep Papanicolaou smear with manual screeningOrdered By: Emmett Guerrero on 07-23-2023 Thin prep Papanicolaou smear with manual screening 18 U/L 15-37 [facility] Thin prep Papanicolaou smear with manual screening 273 mOsm/KG 280-301 [facility] Urine osmolality measurement Ordered By: Emmett Guerrero on 07-23-2023 Osmolality (U) [Osmolality] 217 mOsm/KG >50 [facility] Comment on above: Normal Urine Referen ce Ranges Random: 50 - 1200 mOsm/kg H20 depending on fluid intake Random: >850 mOsm/kg after 12 hour fluid restriction 24 hour: ~300 - 900 mOsm/kg H2O Absolute lymphocyte countOrd ered By: Claude Boyd on 07-22-2023 Lymphocytes Auto (Unsp spec) [#/Vol] 1.44 10*3/uL 0.83-4.51 [facility] Basophil percentageOrdered B y: Claude Boyd on 07-22-2023 Basophils/100 WBC (Bld) 0.4 % 0-1 [facility] Chloride [Moles/Vol] 88 mmol/L 98-107 [facility] Eosinophils/100 WBC (Bld) 2.6 % 0-5 [facility] Glucose [Mass/Vol] 111 mg/dL 74-106 [facility] Comment on above: Fasting Glucose resu lt from 100 to 125 mg/dL suggests IMPAIRED HOMEOSTASIS per A.D.A. criteria. Lactate [Moles/Vol] 0.9 mmol/L 0.4-2.0 [facility] Neutrophils (Bld) [#/Vol] 5.0 10*3/uL 2.0-7.7 [facility] Neutrophils/100 WBC (Bld) 64.1 % 47-70 [facility] Potassium [Moles/Vol] 3.9 mmol/L 3.5-5.1 [facility] Sodium [Moles/Vol] 123 mmol/L 136-145 [facility] WBC (Bld) [#/Vol] 7.8 10*3/uL 4.4-11.0 [facility] Blood erythrocytes count (nu mber/volume)Ordered By: Claude Boyd on 07-22-2023 RBC (Bld) [#/Vol] 4.89 10*6/uL 4.6-6.2 [facility] Blood hemoglobin measurement (mass/volume)Ordered By: Claude Boyd on 07-22-2023 Hemoglobin (Bld) [Mass/Vol] 12.9 g/dL 13.0-16.5 [facility] Blood lymphocytes/100 leukoc ytesOrdered By: Claude Boyd on 07-22-2023 Lymphocytes/100 WBC (Bld) 18.4 % 19-41 [facility] Blood monocytes/100 leukocyt esOrdered By: Claude Boyd on 07-22-2023 Monocytes/100 WBC (Bld) 14.2 % 0-10 [facility] Blood platelet mean volumeOr dered By: Claude Boyd on 07-22-2023 Platelet mean volume (Bld) [Entitic vol] 9.2 fL 6.2-12.0 [facility] Determination of erythrocyte mean corpuscular volume (MCV)Ordered By: Claude Boyd on 07-22-2023 MCV (RBC) [Entitic vol] 82.4 fL 80-94 [facility] Glucose Glucometer (BldC) [M ass/Vol]Ordered By: Emmett Guerrero on 07-22-2023 Glucose [Mass/Vol] 108 mg/dL 74-106 [facility] Comment on above: MANAGEMENT OF PATIEN T CARE PER NURSING PROTOCOL Hematocrit Auto (Bld) [Volum e fraction]Ordered By: Claude Boyd on 07-22-2023 Hematocrit (Bld) [Volume fraction] 40.3 % 40-54 [facility] - Chemistry and C hemistry - challengeOrdered By: Claude Boyd on 07-22-2023 CO2 [Moles/Vol] 33.0 mmol/L 21.0-32.0 [facility] Urea nitrogen/Creatinine [Mass ratio] 10.8 mg/mg 10-20 [facility] - Hematology and Cell countsOrdered By: Claude Boyd on 07-22-2023 Erythrocyte distribution width (RBC) [Entitic vol] 45.1 fL 35.1-43.9 [facility] Erythrocyte distribution width (RBC) [Ratio] 14.8 % 11.6-14.6 [facility] Immature granulocytes/100 WBC (Bld) 0.300 % 0.0-0.9 [facility] Comment on above: IG% - Immature Granu locytes (promyelocytes, myelocytes and metamyelocytes) > 1% indicates that a LEFT SHIFT is Present. MCH (RBC) [Entitic mass] 26.4 pg 27.0-32.0 [facility] Nucleated RBC/100 WBC (Bld) [Ratio] 0 % 0-5 [facility] MCHC Auto (RBC) [Mass/Vol]Or dered By: Claude Boyd on 07-22-2023 MCHC (RBC) [Mass/Vol] 32.0 g/dL 32-36 [facility] No Panel InformationOrdered By: Claude Boyd on 07-22-2023 Estimated Creatinine Clearance Calc 65.55 ml/min [facility] Estimated GFR (MDRD) Amer 134 mL/min >60 [facility] Comment on above: GFR Calc Estimated GFR (MDRD) Non-Af Amer 110 mL/min >60 [facility] Comment on above: Non- GFR Calc Platelets bldOrdered By: Jovana Boyd on 07-22-2023 Platelets (Bld) [#/Vol] 292 10*3/uL 150-450 [facility] Serum or plasma calcium ale urement (mass/volume)Ordered By: Claude Boyd on 07-22-2023 Calcium [Mass/Vol] 8.6 mg/dL 8.5-10.1 [facility] Serum or plasma creatinine m easurement (mass/volume)Ordered By: Claude Boyd on 07-22-2023 Creatinine [Mass/Vol] 0.74 mg/dL 0.70-1.30 [facility] Comment on above: The validity of the calculated GFR & GFRAA in patients over 70 years has not been determined. Clinical correlation is essential. Serum or plasma urea nitroge n measurement (mass/volume)Ordered By: Claude Boyd on 07-22-2023 Urea nitrogen [Mass/Vol] 8 mg/dL 7-18 [facility] Thin prep Papanicolaou smear with manual screeningOrdered By: Claude Boyd on 07-22-2023 Thin prep Papanicolaou smear with manual screening 2 5-15 [facility] Whole blood hemoglobin A1c/t otal hemoglobin ratio (mass fraction)Ordered By: Emmett Guerrero on 07-22-2023 HbA1c (Bld) [Mass fraction] 9.4 % 3.8-5.6 [facility] Comment on above: Normal < 5.7 % Predi abetic 5.7 - 6.4 % Diabetic >or= 6.5 % Please note range changes. Bacteria identified Cx Nom ( Wound)Ordered By: Maya Pradhan on 07-09-2023 Wound Culture Staphylococcus aureus [facility] Wound Culture Enterococcus faecalis [facility] Wound Culture Kluyvera intermedia [facility] Wound Culture Staphylococcus aureus [facility] Wound Culture Enterococcus faecalis [facility] Wound Culture Kluyvera intermedia [facility] Gram stain for investigation of transfusion reactionOrdered By: Maya Pradhan on 07-09-2023 Microscopic observation Gram stain Nom (Unsp spec) [facility] Microscopic observation Gram stain Nom (Unsp spec) [facility] Absolute lymphocyte countOrd ered By: Dr. Pradhan on 02-19-2023 Lymphocytes Auto (Unsp spec) [#/Vol] 2.01 10*3/uL 0.83-4.51 [facility] Basophil percentageOrdered B y: Dr. Pradhan on 02-19-2023 Basophils/100 WBC (Bld) 0.5 % 0-1 [facility] Bilirubin [Mass/Vol] 0.50 mg/dL 0.20-1.00 [facility] Comment on above: For patients on eltr ombopag therapy, use of Dimension [place] TBIL is not recommended. Chloride [Moles/Vol] 101 mmol/L 98-107 [facility] Cholesterol [Mass/Vol] 196 mg/dL <200 [facility] Comment on above: <200 mg/dL Desirable 200-240 mg/dL Borderline >240 mg/dL High Risk Eosinophils/100 WBC (Bld) 1.3 % 0-5 [facility] Glucose [Mass/Vol] 112 mg/dL 74-106 [facility] Comment on above: Fasting Glucose resu lt from 100 to 125 mg/dL suggests IMPAIRED HOMEOSTASIS per A.D.A. criteria. Neutrophils (Bld) [#/Vol] 5.0 10*3/uL 2.0-7.7 [facility] Neutrophils/100 WBC (Bld) 60.7 % 47-70 [facility] Potassium [Moles/Vol] 4.3 mmol/L 3.5-5.1 [facility] Protein [Mass/Vol] 7.7 g/dL 6.4-8.2 [facility] Sodium [Moles/Vol] 139 mmol/L 136-145 [facility] Triglyceride [Mass/Vol] 87 mg/dL <199 [facility] Comment on above: The drugs N-Acetylcy steine and Metamizole may falsely depress this assay.Serum Triglycerides Reference Interval Normal <150 mg/dL Borderline high 150 - 199 mg/dL High 200 - 499 mg/dL Very High > or = 500 mg/dL WBC (Bld) [#/Vol] 8.3 10*3/uL 4.4-11.0 [facility] Blood erythrocytes count (nu mber/volume)Ordered By: Dr. Pradhan on 02-19-2023 RBC (Bld) [#/Vol] 5.34 10*6/uL 4.6-6.2 [facility] Blood hemoglobin measurement (mass/volume)Ordered By: Dr. Pradhan on 02-19-2023 Hemoglobin (Bld) [Mass/Vol] 14.5 g/dL 13.0-16.5 [facility] Blood lymphocytes/100 leukoc ytesOrdered By: Dr. Pradhan on 02-19-2023 Lymphocytes/100 WBC (Bld) 24.2 % 19-41 [facility] Blood monocytes/100 leukocyt esOrdered By: Dr. Pradhan on 02-19-2023 Monocytes/100 WBC (Bld) 12.9 % 0-10 [facility] Blood platelet mean volumeOr dered By: Dr. Pradhan on 02-19-2023 Platelet mean volume (Bld) [Entitic vol] 10.1 fL 6.2-12.0 [facility] Determination of erythrocyte mean corpuscular volume (MCV)Ordered By: Dr. Pradhan on 02-19-2023 MCV (RBC) [Entitic vol] 88.8 fL 80-94 [facility] Hematocrit Auto (Bld) [Volum e fraction]Ordered By: Dr. Pradhan on 02-19-2023 Hematocrit (Bld) [Volume fraction] 47.4 % 40-54 [facility] - Chemistry and C hemistry - challengeOrdered By: Dr. Pradhan on 02-19-2023 ALP [Catalytic activity/Vol] 66 U/L 45-117 [facility] ALT [Catalytic activity/Vol] 31 U/L 16-61 [facility] CO2 [Moles/Vol] 33.0 mmol/L 21.0-32.0 [facility] Cobalamin (Vitamin B12) [Mass/Vol] 315 pg/mL 211-911 [facility] Globulin (S) [Mass/Vol] 4.5 g/dL 2.2-4.2 [facility] Urea nitrogen/Creatinine [Mass ratio] 16.2 mg/mg 10-20 [facility] - Hematology and Cell countsOrdered By: Dr. Pradhan on 02-19-2023 Erythrocyte distribution width (RBC) [Entitic vol] 48.9 fL 35.1-43.9 [facility] Erythrocyte distribution width (RBC) [Ratio] 15.1 % 11.6-14.6 [facility] Immature granulocytes/100 WBC (Bld) 0.400 % 0.0-0.9 [facility] Comment on above: IG% - Immature Granu locytes (promyelocytes, myelocytes and metamyelocytes) > 1% indicates that a LEFT SHIFT is Present. MCH (RBC) [Entitic mass] 27.2 pg 27.0-32.0 [facility] Nucleated RBC/100 WBC (Bld) [Ratio] 0 % 0-5 [facility] MCHC Auto (RBC) [Mass/Vol]Or dered By: Dr. Pradhan on 02-19-2023 MCHC (RBC) [Mass/Vol] 30.6 g/dL 32-36 [facility] No Panel InformationOrdered By: Dr. Pradhna on 02-19-2023 Estimated GFR (MDRD) Amer 112 mL/min >60 [facility] Comment on above: GFR Calc Estimated GFR (MDRD) Non-Af Amer 93 mL/min >60 [facility] Comment on above: Non- GFR Calc Urine Microalbumin/Creatinine Ratio 41.8 mg/g CRE <30 [facility] Vitamin D 25-Hydroxy 35.8 ng/mL [facility] Comment on above: Vitamin D 25(OH) Sta tus Range Deficiency <20 ng/mL (50nmol/L) Insufficiency 20 - 30 ng/mL (50 - 75 nmol/L) Sufficiency 30 - 100 ng/mL (75 - 250 nmol/L) Toxicity >100 ng/mL (>250 nmol/L) Platelets bldOrdered By: Dr. Pradhan on 02-19-2023 Platelets (Bld) [#/Vol] 249 10*3/uL 150-450 [facility] Serum or plasma albumin ale urement (mass/volume)Ordered By: Dr. Pradhan on 02-19-2023 Albumin [Mass/Vol] 3.2 g/dL 3.2-5.0 [facility] Serum or plasma albumin/glob ulin mass ratioOrdered By: Dr. Pradhan on 02-19-2023 Albumin/Globulin [Mass ratio] 0.7 {ratio} 0.9-2.4 [facility] Serum or plasma calcium ale urement (mass/volume)Ordered By: Dr. Pradhan on 02-19-2023 Calcium [Mass/Vol] 9.4 mg/dL 8.5-10.1 [facility] Serum or plasma cholesterol in HDL measurement (mass/volume)Ordered By: Dr. Pradhan on 02-19-2023 Cholesterol in HDL [Mass/Vol] 43 mg/dL >40 [facility] Comment on above: The drugs N-Acetylcy steine and Metamizole may falsely depress this assay. Reference Range HDL <40 mg/dL Low HDL Cholesterol HDL >or= 60 mg/dL High HDL Cholesterol Serum or plasma cholesterol in VLDL measurement (mass/volume)Ordered By: Dr. Pradhan on 02-19-2023 Cholesterol in VLDL [Mass/Vol] 17 mg/dL 5-40 [facility] Serum or plasma creatinine m easurement (mass/volume)Ordered By: Dr. Pradhan on 02-19-2023 Creatinine [Mass/Vol] 0.86 mg/dL 0.70-1.30 [facility] Comment on above: The validity of the calculated GFR & GFRAA in patients over 70 years has not been determined. Clinical correlation is essential. Serum or plasma low density lipoprotein (LDL) cholesterol measurement (mass/volume)Ordered By: Dr. Pradhan on 02-19-2023 Cholesterol in LDL [Mass/Vol] 136 mg/dL 0-130 [facility] Serum or plasma urea nitroge n measurement (mass/volume)Ordered By: Dr. Pradhan on 02-19-2023 Urea nitrogen [Mass/Vol] 14 mg/dL 7-18 [facility] Thin prep Papanicolaou smear with manual screeningOrdered By: Dr. Pradhan on 02-19-2023 Thin prep Papanicolaou smear with manual screening 14 U/L 15-37 [facility] Thin prep Papanicolaou smear with manual screening 5 5-15 [facility] Thin prep Papanicolaou smear with manual screening 54.7 mg/L NO RANGE EST. [facility] Urine creatinine measurement (mass/volume)Ordered By: Dr. Pradhan on 02-19-2023 Creatinine (U) [Mass/Vol] 131.00 mg/dL NO RANGE EST. [facility] No Panel Informationon 01-02 Culture Body Fluid Few normal sarah for site present. Sensitivity testing not indicated. Neisseria gonorrhoeae: Negative Ureaplasma urealyticum: Pending No anaerobes isolated to date. [facility] Work Phone: GS No organisms seen. [facility] Work Phone: COVID-19 virus antigen assay Ordered By: Dr. Pradhan on 12-15-2022 SARS-CoV-2 (COVID-19) Ag IA.rapid Ql (Resp) Not detected Not Detect [facility] Comment on above: Normal Reference Ran [...] Culture Urine No growth at 48 hours. [facility] Work Phone: Absolute lymphocyte counton 11-29-2021 Lymphocytes Auto (Unsp spec) [#/Vol] 1.54 10*3/uL 0.83-4.51 [facility] Work Phone: Basophil percentageon 2021 Basophils/100 WBC (Bld) 0.6 % 0-1 [facility] Work Phone: Chloride [Moles/Vol] 98 mmol/L 98-107 [facility] Work Phone: Eosinophils/100 WBC (Bld) 1.8 % 0-5 [facility] Work Phone: Glucose [Mass/Vol] 204 mg/dL 74-106 [facility] Work Phone: Comment on above: Glucose result great er than or equal to 200 mg/dLsuggests DIABETES MELLITUS per A.D.A. criteria. Neutrophils (Bld) [#/Vol] 5.3 10*3/uL 2.0-7.7 [facility] Work Phone: Neutrophils/100 WBC (Bld) 68.2 % 47-70 [facility] Work Phone: [phone] Potassium [Moles/Vol] 4.4 mmol/L 3.5-5.1 [facility]: Comment on above: Moderate Hemolysis, Result may be falsely increased. Sodium [Moles/Vol] 134 mmol/L 136-145 [facility] Work Phone: WBC (Bld) [#/Vol] 7.7 10*3/uL 4.4-11.0 [facility] Work Phone: Blood erythrocytes count (nu mber/volume)on 11-29-2021 RBC (Bld) [#/Vol] 4.82 10*6/uL 4.6-6.2 [facility] Work Phone: Blood hemoglobin measurement (mass/volume)on 11-29-2021 Hemoglobin (Bld) [Mass/Vol] 14.0 g/dL 13.0-16.5 [facility] Work Phone: Blood lymphocytes/100 leukoc yteson 11-29-2021 Lymphocytes/100 WBC (Bld) 19.9 % 19-41 [facility] Work Phone: [phone] Blood monocytes/100 leukocyt eson 11-29-2021 Monocytes/100 WBC (Bld) 9.2 % 0-10 [facility] Work Phone: Blood platelet mean volumeon 11-29-2021 Platelet mean volume (Bld) [Entitic vol] 10.0 fL 6.2-12.0 [facility] Work Phone: Determination of erythrocyte mean corpuscular volume (MCV)on 11-29-2021 MCV (RBC) [Entitic vol] 90.9 fL 80-94 [facility] Work Phone: Hematocrit Auto (Bld) [Volum e fraction]on 11-29-2021 Hematocrit (Bld) [Volume fraction] 43.8 % 40-54 [facility] Work Phone: Laboratory - Chemistry and C hemistry - challengeon 11-29-2021 CO2 [Moles/Vol] 37.0 mmol/L 21.0-32.0 [facility] Work Phone: [phone] Urea nitrogen/Creatinine [Mass ratio] 14.1 mg/mg 10-20 [facility] Work Phone: [phone] Laboratory - Hematology and Cell countson 11-29-2021 Erythrocyte distribution width (RBC) [Entitic vol] 46.5 fL 35.1-43.9 [facility] Work Phone: [phone] Erythrocyte distribution width (RBC) [Ratio] 13.8 % 11.6-14.6 [facility] Work Phone: [phone] Immature granulocytes/100 WBC (Bld) 0.300 % 0.0-0.9 [facility] Work Phone: [phone] Comment on above: IG% - Immature Granu locytes (promyelocytes, myelocytes and metamyelocytes) > 1% indicates that a LEFT SHIFT is Present. MCH (RBC) [Entitic mass] 29.0 pg 27.0-32.0 [facility] Work Phone: [phone] Nucleated RBC/100 WBC (Bld) [Ratio] 0 % 0-5 [facility] Work Phone: [phone] MCHC Auto (RBC) [Mass/Vol]on 11-29-2021 MCHC (RBC) [Mass/Vol] 32.0 g/dL 32-36 [facility] Work Phone: No Panel Informationon 11-29 Estimated GFR (MDRD) Amer 115 mL/min >60 [facility] Work Phone: [phone] Comment on above: GFR Calc Estimated GFR (MDRD) Non-Af Amer 95 mL/min >60 [facility] Work Phone: [phone] Comment on above: Non- GFR Calc Platelets bldon 11-29-2021 Platelets (Bld) [#/Vol] 259 10*3/uL 150-450 [facility] Work Phone: Serum or plasma calcium ale urement (mass/volume)on 11-29-2021 Calcium [Mass/Vol] 9.0 mg/dL 8.5-10.1 [facility] Work Phone: Serum or plasma creatinine m easurement (mass/volume)on 11-29-2021 Creatinine [Mass/Vol] 0.85 mg/dL 0.70-1.30 [facility] Work Phone: Comment on above: The validity of the calculated GFR & GFRAA in patients over 70 years has not been determined. Clinical correlation is essential. Serum or plasma urea nitroge n measurement (mass/volume)on 11-29-2021 Urea nitrogen [Mass/Vol] 12 mg/dL -18 [facility] Work Phone: Thin prep Papanicolaou smear with manual screeningon 11-29-2021 Thin prep Papanicolaou smear with manual screening -1 5-15 [facility] Work Phone: Absolute lymphocyte counton 10-30-2021 Lymphocytes Auto (Unsp spec) [#/Vol] 1.75 10*3/uL 0.83-4.51 [facility] Work Phone: Basophil percentageon 2021 Basophils/100 WBC (Bld) 0.5 % 0-1 [facility] Work Phone: Bilirubin [Mass/Vol] 0.60 mg/dL 0.20-1.00 [facility] Work Phone: Comment on above: For patients on eltr ombopag therapy, use of Dimension [place] TBIL is not recommended. Chloride [Moles/Vol] 96 mmol/L 98-107 [facility] Work Phone: Eosinophils/100 WBC (Bld) 1.2 % 0-5 [facility] Work Phone: Glucose [Mass/Vol] 196 mg/dL 74-106 [facility] Work Phone: Comment on above: Fasting Glucose resu lt greater than or equal to 126 mg/dL suggests DIABETES MELLITUS per A.D.A. criteria. Neutrophils (Bld) [#/Vol] 5.4 10*3/uL 2.0-7.7 [facility] Work Phone: [phone] Neutrophils/100 WBC (Bld) 66.2 % 47-70 [facility] Work Phone: [phone] Potassium [Moles/Vol] 4.4 mmol/L 3.5-5.1 [facility] Work Phone: [phone] Protein [Mass/Vol] 7.1 g/dL 6.4-8.2 [facility] Work Phone: [phone] Sodium [Moles/Vol] 134 mmol/L 136-145 [facility] Work Phone: [phone] WBC (Bld) [#/Vol] 8.1 10*3/uL 4.4-11.0 [facility] Work Phone: [phone] Blood erythrocytes count (nu mber/volume)on 10-30-2021 RBC (Bld) [#/Vol] 4.55 10*6/uL 4.6-6.2 [facility] Work Phone: [phone] Blood hemoglobin measurement (mass/volume)on 10-30-2021 Hemoglobin (Bld) [Mass/Vol] 12.9 g/dL 13.0-16.5 [facility] Work Phone: [phone] Blood lymphocytes/100 leukoc yteson 10-30-2021 Lymphocytes/100 WBC (Bld) 21.5 % 19-41 [facility] Work Phone: [phone] Blood monocytes/100 leukocyt eson 10-30-2021 Monocytes/100 WBC (Bld) 10.0 % 0-10 [facility] Work Phone: Blood platelet mean volumeon 10-30-2021 Platelet mean volume (Bld) [Entitic vol] 9.7 fL 6.2-12.0 [facility] Work Phone: [phone] Determination of erythrocyte mean corpuscular volume (MCV)on 10-30-2021 MCV (RBC) [Entitic vol] 92.1 fL 80-94 [facility] Work Phone: [phone] Hematocrit Auto (Bld) [Volum e fraction]on 10-30-2021 Hematocrit (Bld) [Volume fraction] 41.9 % 40-54 [facility] Work Phone: [phone] Iron measurement (mass/mass) on 10-30-2021 Iron (Unsp spec) [Mass/Mass] 46 ug/dL 65-175 [facility] Work Phone: [phone] Laboratory - Chemistry and C hemistry - challengeon 10-30-2021 ALP [Catalytic activity/Vol] 50 U/L 45-117 [facility] Work Phone: [phone] ALT [Catalytic activity/Vol] 40 U/L 16-61 [facility] Work Phone: [phone] CO2 [Moles/Vol] 34.0 mmol/L 21.0-32.0 [facility] Work Phone: [phone] Free T4 [Mass/Vol] 0.99 ng/dL 0.76-1.46 [facility] Work Phone: [phone] Globulin (S) [Mass/Vol] 4.0 g/dL 2.2-4.2 [facility] Work Phone: [phone] Urea nitrogen/Creatinine [Mass ratio] 15.9 mg/mg 10-20 [facility] Work Phone: [phone] Laboratory - Hematology and Cell countson 10-30-2021 Erythrocyte distribution width (RBC) [Entitic vol] 47.8 fL 35.1-43.9 [facility] Work Phone: [phone] Erythrocyte distribution width (RBC) [Ratio] 14.2 % 11.6-14.6 [facility] Work Phone: [phone] Immature granulocytes/100 WBC (Bld) 0.600 % 0.0-0.9 [facility] Work Phone: [phone] Comment on above: IG% - Immature Granu locytes (promyelocytes, myelocytes and metamyelocytes) > 1% indicates that a LEFT SHIFT is Present. MCH (RBC) [Entitic mass] 28.4 pg 27.0-32.0 [facility] Work Phone: [phone] Nucleated RBC/100 WBC (Bld) [Ratio] 0 % 0-5 [facility] Work Phone: [phone] MCHC Auto (RBC) [Mass/Vol]on 10-30-2021 MCHC (RBC) [Mass/Vol] 30.8 g/dL 32-36 [facility] Work Phone: [phone] No Panel Informationon 10-30 Estimated GFR (MDRD) Amer 120 mL/min >60 [facility] Work Phone: [phone] Comment on above: GFR Calc Estimated GFR (MDRD) Non-Af Amer 99 mL/min >60 [facility] Work Phone: [phone] Comment on above: Non- GFR Calc Free Triiodothyronine (T3) pg/dL 2.2 pg/mL 2.18-3.98 [facility] Work Phone: [phone] Thyroid Stimulating Hormone (TSH) 2.64 uIU/mL 0.358-3.74 [facility] Work Phone: [phone] Platelets bldon 10-30-2021 Platelets (Bld) [#/Vol] 293 10*3/uL 150-450 [facility] Work Phone: [phone] Serum or plasma albumin ale urement (mass/volume)on 10-30-2021 Albumin [Mass/Vol] 3.1 g/dL 3.2-5.0 [facility] Work Phone: [phone] Serum or plasma albumin/glob ulin mass ratioon 10-30-2021 Albumin/Globulin [Mass ratio] 0.8 {ratio} 0.9-2.4 [facility] Work Phone: [phone] Serum or plasma calcium ale urement (mass/volume)on 10-30-2021 Calcium [Mass/Vol] 8.9 mg/dL 8.5-10.1 [facility] Work Phone: [phone] Serum or plasma creatinine m easurement (mass/volume)on 10-30-2021 Creatinine [Mass/Vol] 0.82 mg/dL 0.70-1.30 [facility] Work Phone: Comment on above: The validity of the calculated GFR & GFRAA in patients over 70 years has not been determined. Clinical correlation is essential. Serum or plasma ferritin donny surement (mass/volume)on 10-30-2021 Ferritin [Mass/Vol] 66 ng/mL 26-388 [facility] Work Phone: [phone] Serum or plasma urea nitroge n measurement (mass/volume)on 10-30-2021 Urea nitrogen [Mass/Vol] 13 mg/dL 7-18 [facility] Work Phone: [phone] Thin prep Papanicolaou smear with manual screeningon 10-30-2021 Thin prep Papanicolaou smear with manual screening 21 U/L 15-37 [facility] Work Phone: Thin prep Papanicolaou smear with manual screening 4 5-15 [facility] Work Phone: Basophil percentageon 2021 Chloride [Moles/Vol] 100 mmol/L 98-107 [facility] Work Phone: Glucose [Mass/Vol] 111 mg/dL 74-106 [facility] Work Phone: Comment on above: Fasting Glucose resu lt from 100 to 125 mg/dL suggests IMPAIRED HOMEOSTASIS per A.D.A. criteria. Potassium [Moles/Vol] 4.3 mmol/L 3.5-5.1 [facility] Work Phone: Comment on above: Slight Hemolysis, Re sult may be falsely increased. Sodium [Moles/Vol] 137 mmol/L 136-145 [facility] Work Phone: [phone] Laboratory - Chemistry and C hemistry - challengeon 10-11-2021 CO2 [Moles/Vol] 34.0 mmol/L 21.0-32.0 [facility] Work Phone: [phone] Urea nitrogen/Creatinine [Mass ratio] 12.6 mg/mg 10-20 [facility] Work Phone: No Panel Informationon 10-11 Estimated GFR (MDRD) Amer 111 mL/min >60 [facility] Work Phone: Comment on above: GFR Calc Estimated GFR (MDRD) Non-Af Amer 92 mL/min >60 [facility] Work Phone: Comment on above: Non- GFR Calc Serum or plasma calcium ale urement (mass/volume)on 10-11-2021 Calcium [Mass/Vol] 9.0 mg/dL 8.5-10.1 [facility] Work Phone: Serum or plasma creatinine m easurement (mass/volume)on 10-11-2021 Creatinine [Mass/Vol] 0.87 mg/dL 0.70-1.30 [facility] Work Phone: Comment on above: The validity of the calculated GFR & GFRAA in patients over 70 years has not been determined. Clinical correlation is essential. Serum or plasma urea nitroge n measurement (mass/volume)on 10-11-2021 Urea nitrogen [Mass/Vol] 11 mg/dL 7-18 [facility] Work Phone: Thin prep Papanicolaou smear with manual screeningon 10-11-2021 Thin prep Papanicolaou smear with manual screening 3 - [facility] Work Phone: Glucose POCon 08-19-2018 Glucose mass conc 119 mg/dL High 70-99 [facility] Comment on above: Performed By: #### [id number] ####T[facility] [id number] [place] [address] Glucose POCon 07-29-2018 Glucose mass conc 116 mg/dL High 70-99 [facility] Comment on above: Performed By: #### [id number] ####[facility] [id number] [place] [address] US Scrotum (Contents)on US Scrotum (Contents) Exam [...] pmSigned by: Hal Palm MD Technologist: [facility] Gram stain for investigation of transfusion reaction Microscopic observation Gram stain Nom (Unsp spec) [facility] Work Phone: Vital Signs Date Time Vital Sign Value Performing Clinician Facility 06-15-2025 09:15-0400 Body temperature 98.2 [degF] Dr. Maya Pradhan DO Work Phone: [facility] 06-15-2025 09:15-0400 Body weight 112.[address] Maya Pradhan DO Work Phone: [facility] 06-15-2025 09:15-0400 Diastolic blood pressure 63 mm[Hg] Dr. Maya Pradhan DO Work Phone: [facility] 06-15-2025 09:15-0400 Heart rate 81 /min Dr. Maya Pradhan DO Work Phone: [facility] 06-15-2025 09:15-0400 Respiratory rate 16 /min Dr. Maya Pradhan DO Work Phone: [facility] 06-15-2025 09:15-0400 SaO2% (BldA) [Mass fraction] 92 % Dr. Maya Pradhan DO Work Phone: [facility] 06-15-2025 09:15-0400 Systolic blood pressure 122 mm[Hg] Dr. Maya Pradhan DO Work Phone: [facility] 05-29-2025 11:00-0400 Body height 172.7 cm Jeremías Fajardo MD Work Phone: [facility] 05-29-2025 11:00-0400 Body mass index (BMI) [Ratio] 33.75 kg/m2 Jeremías Fajardo MD Work Phone: [facility] 05-29-2025 11:00-0400 Body weight 100.7 kg Jeremías Fajardo MD Work Phone: [facility] 05-29-2025 11:00-0400 Respiratory rate 16 /min Jeremías Fajardo MD Work Phone: [facility] 05-19-2025 08:11-0400 Body height 172.7 cm Jeremías Fajardo MD Work Phone: [facility] 05-19-2025 08:11-0400 Body mass index (BMI) [Ratio] 33.75 kg/m2 Jeremías Fajardo MD Work Phone: [facility] 05-19-2025 08:11-0400 Body weight 100.7 kg Jeremías Fajardo MD Work Phone: [facility] 05-19-2025 08:11-0400 Respiratory rate 19 /min Jeremías Fajardo MD Work Phone: [facility] 05-03-2025 08:56-0400 Body height 172.[address] Maya Pradhan DO Work Phone: [facility] 05-03-2025 08:56-0400 Body mass index (BMI) [Ratio] 37.8 kg/m2 Dr. Maya Pradhan DO Work Phone: [facility] 05-03-2025 08:56-0400 Body weight 112.[address] Maya Pradhan DO Work Phone: [facility] 05-03-2025 08:56-0400 Diastolic blood pressure 61 mm[Hg] Dr. Maya Pradhan DO Work Phone: [facility] 05-03-2025 08:56-0400 Heart rate 66 /min Dr. Maya Pradhan DO Work Phone: [facility] 05-03-2025 08:56-0400 Respiratory rate 16 /min Dr. Maya Pradhan DO Work Phone: [facility] 05-03-2025 08:56-0400 Systolic blood pressure 105 mm[Hg] Dr. Maya Pradhan DO Work Phone: [facility] 04-17-2025 08:45-0400 Body height 172.7 cm Jia MARQUEZ Work Phone: [facility] 04-17-2025 08:45-0400 Body mass index (BMI) [Ratio] 33.75 kg/m2 Jia MARQUEZ Work Phone: [facility] 04-17-2025 08:45-0400 Body weight 100.7 kg Jia Lee [employer] SYSTEMS ENGINEER-[employer] Work Phone: [facility] 04-17-2025 08:45-0400 Respiratory rate 17 /min Jia Lee [employer] SYSTEMS ENGINEER-[employer] Work Phone: [facility] 03-21-2025 09:22-0400 Body height 166.4 cm Bryon Turner PA-C Work Phone: [facility] 03-21-2025 09:22-0400 Body mass index (BMI) [Ratio] 40.15 kg/m2 Bryon Turner PA-C Work Phone: [facility] 03-21-2025 09:22-0400 Body temperature 97.7 [degF] Bryon Turner PA-C Work Phone: [facility] 03-21-2025 09:22-0400 Body weight 111.13 kg Bryon Turner PA-C Work Phone: [facility] 03-21-2025 09:22-0400 Diastolic blood pressure 72 mm[Hg] Bryon Turner PA-C Work Phone: [facility] 03-21-2025 09:22-0400 Heart rate 92 /min Bryon Turner PA-C Work Phone: [facility] 03-21-2025 09:22-0400 Respiratory rate 18 /min Bryon Turner PA-C Work Phone: [facility] 03-21-2025 09:22-0400 SaO2% (BldA) [Mass fraction] 95 % Bryon Turner PA-C Work Phone: [facility] 03-21-2025 09:22-0400 Systolic blood pressure 134 mm[Hg] Bryon Turner PA-C Work Phone: [facility] 01-24-2025 10:11-0400 Body mass index (BMI) [Ratio] 40.61 kg/m2 Rochelle Branch PA-C Work Phone: [facility] 01-24-2025 10:11-0400 Body temperature 97.9 [degF] Rochelle Clutter PA-C Work Phone: [facility] 01-24-2025 10:11-0400 Body weight 112.4 kg Rochelle Clutter PA-C Work Phone: [facility] 01-24-2025 10:11-0400 Diastolic blood pressure 72 mm[Hg] Rochelle Clutter PA-C Work Phone: [facility] 01-24-2025 10:11-0400 Heart rate 90 /min Rochelle Clutter PA-C Work Phone: [facility] 01-24-2025 10:11-0400 Respiratory rate 18 /min Rochelle Clutter PA-C Work Phone: [facility] 01-24-2025 10:11-0400 SaO2% (BldA) [Mass fraction] 94 % Rochelle Clutter PA-C Work Phone: [facility] 01-24-2025 10:11-0400 Systolic blood pressure 138 mm[Hg] Rochelle Clutter PA-C Work Phone: [facility] 12-31-2024 13:04-0400 Body mass index (BMI) [Ratio] 40.57 kg/m2 Marisa Blanco APRN.[employer] Work Phone: [facility] 12-31-2024 13:04-0400 Body temperature 98.29 [degF] Marisa Mirandak ENTER[employer]ISE SYSTEMS ENGINEER.[employer] Work Phone: [facility] 12-31-2024 13:04-0400 Body weight 112.3 kg Marisa Blanco ENTER[employer]ISE SYSTEMS ENGINEER.[employer] Work Phone: [facility] 12-31-2024 13:04-0400 Diastolic blood pressure 74 mm[Hg] Marisa Blanco ENTER[employer]ISE SYSTEMS ENGINEER.[employer] Work Phone: [facility] 12-31-2024 13:04-0400 Heart rate 98 /min Marisa Blanco ENTER[employer]ISE SYSTEMS ENGINEER.[employer] Work Phone: [facility] 12-31-2024 13:04-0400 Respiratory rate 18 /min Marisa Francis ENTER[employer]ISE SYSTEMS ENGINEER.[employer] Work Phone: [facility] 12-31-2024 13:04-0400 SaO2% (BldA) [Mass fraction] 94 % Marisa Francis ENTER[employer]ISE SYSTEMS ENGINEER.[employer] Work Phone: [facility] 12-31-2024 13:04-0400 Systolic blood pressure 132 mm[Hg] Marisa Francis ENTER[employer]ISE SYSTEMS ENGINEER.[employer] Work Phone: [facility] 12-21-2024 12:34-0400 Body mass index (BMI) [Ratio] 40.9 kg/m2 Sally Yanick ENTER[employer]ISE SYSTEMS ENGINEER.[employer] Work Phone: [facility] 12-21-2024 12:34-0400 Body temperature 98.01 [degF] Sally Yanick ENTER[employer]ISE SYSTEMS ENGINEER.[employer] Work Phone: [facility] 12-21-2024 12:34-0400 Body weight 113.2 kg Sally Herndon ENTER[employer] SYSTEMS ENGINEER.[employer] Work Phone: [facility] 12-21-2024 12:34-0400 Diastolic blood pressure 70 mm[Hg] Sally Yanick ENTER[employer]ISE SYSTEMS ENGINEER.[employer] Work Phone: [facility] 12-21-2024 12:34-0400 Heart rate 98 /min Sally Yanick ENTER[employer]ISE SYSTEMS ENGINEER.[employer] Work Phone: [facility] 12-21-2024 12:34-0400 Respiratory rate 16 /min Sally Herndon ENTER[employer]ISE SYSTEMS ENGINEER.[employer] Work Phone: [facility] 12-21-2024 12:34-0400 SaO2% (BldA) [Mass fraction] 94 % Sally Yanick ENTER[employer]ISE SYSTEMS ENGINEER.[employer] Work Phone: [facility] 12-21-2024 12:34-0400 Systolic blood pressure 122 mm[Hg] Sally Yanick ENTER[employer]ISE SYSTEMS ENGINEER.[employer] Work Phone: [facility] 12-13-2024 09:06-0400 Body height 166.4 cm Bryon Turner PA-C Work Phone: [facility] 12-13-2024 09:06-0400 Body mass index (BMI) [Ratio] 40.48 kg/m2 Bryon Turner PA-C Work Phone: [facility] 12-13-2024 09:06-0400 Body temperature 97.9 [degF] Bryon Turner PA-C Work Phone: [facility] 12-13-2024 09:06-0400 Body weight 112.04 kg Bryon Turner PA-C Work Phone: [facility] 12-13-2024 09:06-0400 Diastolic blood pressure 86 mm[Hg] Bryon Turner PA-C Work Phone: [facility] 12-13-2024 09:06-0400 Heart rate 95 /min Bryon Turner PA-C Work Phone: [facility] 12-13-2024 09:06-0400 Respiratory rate 18 /min Bryon Turner PA-C Work Phone: [facility] 12-13-2024 09:06-0400 SaO2% (BldA) [Mass fraction] 96 % Bryon Turner PA-C Work Phone: [facility] 12-13-2024 09:06-0400 Systolic blood pressure 144 mm[Hg] Bryon Turner PA-C Work Phone: [facility] 11-07-2024 08:11-0500 Body temperature 98.1 [degF] Dr. Maya Pradhan DO Work Phone: [facility] 11-07-2024 08:11-0500 Diastolic blood pressure 74 mm[Hg] Dr. Maya Pradhan DO Work Phone: [facility] 11-07-2024 08:11-0500 Heart rate 77 /min Dr. Maya Pradhan DO Work Phone: [facility] 11-07-2024 08:11-0500 Respiratory rate 19 /min Dr. Maya Pradhan DO Work Phone: [facility] 11-07-2024 08:11-0500 SaO2% (BldA) [Mass fraction] 96 % Dr. Maya Pradhan DO Work Phone: [facility] 11-07-2024 08:11-0500 Systolic blood pressure 143 mm[Hg] Dr. Maya Pradhan DO Work Phone: [facility] 11-07-2024 07:11-0500 Inhaled oxygen flow rate 2.5 L/min Dr. Maya Pradhan DO Work Phone: [facility] 11-07-2024 04:02-0500 Body height 172.[address] Maya Pradhan DO Work Phone: [facility] 11-07-2024 04:02-0500 Body mass index (BMI) [Ratio] 39.2 kg/m2 Dr. Maya Pradhan DO Work Phone: [facility] 11-07-2024 04:02-0500 Body weight 116.[address] Maya Pradhan DO Work Phone: [facility] 11-04-2024 14:11-0500 Body temperature 98.4 [degF] Dr. Maya Pradhan DO Work Phone: [facility] 11-04-2024 14:11-0500 Diastolic blood pressure 60 mm[Hg] Dr. Maya Pradhan DO Work Phone: [facility] 11-04-2024 14:11-0500 Heart rate 83 /min Dr. Maya Pradhan DO Work Phone: [facility] 11-04-2024 14:11-0500 Respiratory rate 18 /min Dr. Maya Pradhan DO Work Phone: [facility] 11-04-2024 14:11-0500 SaO2% (BldA) [Mass fraction] 91 % Dr. Maya Pradhan DO Work Phone: [facility] 11-04-2024 14:11-0500 Systolic blood pressure 115 mm[Hg] Dr. Maya Pradhan DO Work Phone: [facility] 10-01-2024 15:16-0500 Body mass index (BMI) [Ratio] 38.21 kg/m2 Ria Praisler-Wood ENTERPRISE SYSTEMS ENGINEER.[employer] Work Phone: [facility] 10-01-2024 15:16-0500 Body temperature 98.29 [degF] Ria Praisler-Wood ENTERPRISE SYSTEMS ENGINEER.[employer] Work Phone: [facility] 10-01-2024 15:16-0500 Body weight 114 kg Ria Praisler-Wood ENTERPRISE SYSTEMS ENGINEER.[employer] Work Phone: [facility] 10-01-2024 15:16-0500 Diastolic blood pressure 77 mm[Hg] Ria Praisler-Wood ENTERPRISE SYSTEMS ENGINEER.[employer] Work Phone: [facility] 10-01-2024 15:16-0500 Heart rate 93 /min Ria Praisler-Wood ENTERPRISE SYSTEMS ENGINEER.[employer] Work Phone: [facility] 10-01-2024 15:16-0500 Respiratory rate 20 /min Ria Praisler-Wood ENTERPRISE SYSTEMS ENGINEER.[employer] Work Phone: [facility] 10-01-2024 15:16-0500 SaO2% (BldA) [Mass fraction] 96 % Ria Praisler-Wood ENTERPRISE SYSTEMS ENGINEER.[employer] Work Phone: [facility] 10-01-2024 15:16-0500 Systolic blood pressure 147 mm[Hg] Ria Praisler-Wood ENTERPRISE SYSTEMS ENGINEER.[employer] Work Phone: [facility] 09-25-2024 10:44-0500 Body mass index (BMI) [Ratio] 38.08 kg/m2 Kodi Moomaw ENTERPRISE SYSTEMS ENGINEER.[employer] Work Phone: [facility] 09-25-2024 10:44-0500 Body temperature 97.9 [degF] Kodi Moomaw ENTERPRISE SYSTEMS ENGINEER.[employer] Work Phone: [facility] 09-25-2024 10:44-0500 Body weight 113.6 kg Kodi Moomaw ENTERPRISE SYSTEMS ENGINEER.[employer] Work Phone: [facility] 09-25-2024 10:44-0500 Diastolic blood pressure 62 mm[Hg] Kodi Moomaw ENTERPRISE SYSTEMS ENGINEER.[employer] Work Phone: [facility] 09-25-2024 10:44-0500 Heart rate 88 /min Kodi Moomaw ENTERPRISE SYSTEMS ENGINEER.[employer] Work Phone: [facility] 09-25-2024 10:44-0500 Respiratory rate 21 /min Kodi Moomaw ENTERPRISE SYSTEMS ENGINEER.[employer] Work Phone: [facility] 09-25-2024 10:44-0500 SaO2% (BldA) [Mass fraction] 93 % Kodi Moomaw ENTERPRISE SYSTEMS ENGINEER.[employer] Work Phone: [facility] 09-25-2024 10:44-0500 Systolic blood pressure 122 mm[Hg] Kodi Moomaw ENTERPRISE SYSTEMS ENGINEER.[employer] Work Phone: [facility] 09-17-2024 11:57-0500 Body mass index (BMI) [Ratio] 38.01 kg/m2 Kami Callow ENTERPRISE SYSTEMS ENGINEER.[employer] Work Phone: [facility] 09-17-2024 11:57-0500 Body temperature 97.59 [degF] Kami Callow ENTERPRISE SYSTEMS ENGINEER.[employer] Work Phone: [facility] 09-17-2024 11:57-0500 Body weight 113.4 kg Kami Callow ENTERPRISE SYSTEMS ENGINEER.[employer] Work Phone: [facility] 09-17-2024 11:57-0500 Diastolic blood pressure 62 mm[Hg] Kami Callow ENTERPRISE SYSTEMS ENGINEER.[employer] Work Phone: [facility] 09-17-2024 11:57-0500 Heart rate 90 /min Kami Callow ENTERPRISE SYSTEMS ENGINEER.[employer] Work Phone: [facility] 09-17-2024 11:57-0500 Respiratory rate 18 /min Kami Callow ENTERPRISE SYSTEMS ENGINEER.[employer] Work Phone: [facility] 09-17-2024 11:57-0500 SaO2% (BldA) [Mass fraction] 96 % Kami Callow ENTERPRISE SYSTEMS ENGINEER.[employer] Work Phone: [facility] 09-17-2024 11:57-0500 Systolic blood pressure 120 mm[Hg] Kami Younger ENTER[employer]ISE SYSTEMS ENGINEER.[employer] Work Phone: [facility] 07-19-2024 07:25-0500 Body mass index (BMI) [Ratio] 37.38 kg/m2 Kodi Moomaw ENTERPRISE SYSTEMS ENGINEER.[employer] Work Phone: [facility] 07-19-2024 07:25-0500 Body temperature 97.59 [degF] Kodi Moomaw ENTERPRISE SYSTEMS ENGINEER.[employer] Work Phone: [facility] 07-19-2024 07:25-0500 Body weight 111.5 kg Kodi Moomaw ENTERPRISE SYSTEMS ENGINEER.[employer] Work Phone: [facility] 07-19-2024 07:25-0500 Diastolic blood pressure 84 mm[Hg] Kodi Moomaw ENTERPRISE SYSTEMS ENGINEER.[employer] Work Phone: [facility] 07-19-2024 07:25-0500 Heart rate 96 /min Kodi Moomaw ENTERPRISE SYSTEMS ENGINEER.[employer] Work Phone: [facility] 07-19-2024 07:25-0500 Respiratory rate 18 /min Kodi Moomaw ENTERPRISE SYSTEMS ENGINEER.[employer] Work Phone: [facility] 07-19-2024 07:25-0500 SaO2% (BldA) [Mass fraction] 97 % Kodi Moomaw ENTERPRISE SYSTEMS ENGINEER.[employer] Work Phone: [facility] 07-19-2024 07:25-0500 Systolic blood pressure 142 mm[Hg] Kodi Moomaw ENTER[employer]ISE SYSTEMS ENGINEER.[employer] Work Phone: [facility] 07-14-2024 08:36-0400 Body height 172.7 cm Carlos Eduardo Sidhu MD Work Phone: [facility] 07-14-2024 08:36-0400 Body mass index (BMI) [Ratio] 38.62 kg/m2 Carlos Eduardo Sidhu MD Work Phone: [facility] 07-14-2024 08:36-0400 Body weight 115.21 kg Carlos Eduardo Sidhu MD Work Phone: [facility] 07-14-2024 08:36-0400 Diastolic blood pressure 83 mm[Hg] Carlos Eduardo Sidhu MD Work Phone: [facility] 07-14-2024 08:36-0400 Heart rate 91 /min Carlos Eduardo Sidhu MD Work Phone: [facility] 07-14-2024 08:36-0400 Respiratory rate 12 /min Carlos Eduardo Sidhu MD Work Phone: [facility] 07-14-2024 08:36-0400 Systolic blood pressure 151 mm[Hg] Carlos Eduardo Sidhu MD Work Phone: [facility] 03-29-2024 07:53-0400 Body height 172.7 cm Lamar Coyner ENTERPRISE SYSTEMS ENGINEER.[employer] Work Phone: [facility] 03-29-2024 07:53-0400 Body mass index (BMI) [Ratio] 38.01 kg/m2 Lamar Coyner ENTERPRISE SYSTEMS ENGINEER.[employer] Work Phone: [facility] 03-29-2024 07:53-0400 Body weight 113.4 kg Lamar Coyner ENTERPRISE SYSTEMS ENGINEER.[employer] Work Phone: [facility] 01-13-2024 09:27-0400 Body mass index (BMI) [Ratio] 36.9 kg/m2 Dr. Maya Pradhan Work Phone: [facility] 01-13-2024 09:27-0400 Body temperature 98.6 [degF] Dr. Maya Pradhan Work Phone: [facility] 01-13-2024 09:27-0400 Body weight 110.[address] Maya Pradhan Work Phone: [facility] 01-13-2024 09:27-0400 Diastolic blood pressure 70 mm[Hg] Dr. Maya Pradhan Work Phone: [facility] 01-13-2024 09:27-0400 Heart rate 72 /min Dr. Maya Pradhan Work Phone: [facility] 01-13-2024 09:27-0400 Respiratory rate 18 /min Dr. Maya Pradhan Work Phone: [facility] 01-13-2024 09:27-0400 SaO2% (BldA) [Mass fraction] 94 % Dr. Maya Pradhan Work Phone: [facility] 01-13-2024 09:27-0400 Systolic blood pressure 124 mm[Hg] Dr. Maya Pradhan Work Phone: [facility] 12-07-2023 09:14-0400 Body height 172.[address] Maya Pradhan Work Phone: [facility] 12-07-2023 09:14-0400 Body mass index (BMI) [Ratio] 36.5 kg/m2 Dr. Maya Pradhan Work Phone: [facility] 12-07-2023 09:14-0400 Body weight 108.[address] Maya Pradhan Work Phone: [facility] 12-07-2023 09:14-0400 Diastolic blood pressure 70 mm[Hg] Dr. Maya Pradhan Work Phone: [facility] 12-07-2023 09:14-0400 Heart rate 88 /min Dr. Maya Pradhan Work Phone: [facility] 12-07-2023 09:14-0400 Respiratory rate 18 /min Dr. Maya Pradhan Work Phone: [facility] 12-07-2023 09:14-0400 Systolic blood pressure 138 mm[Hg] Dr. Maya Pradhan Work Phone: [facility] 11-17-2023 10:57-0500 Body mass index (BMI) [Ratio] 35.9 kg/m2 Dr. Maya Pradhan Work Phone: [facility] 11-17-2023 10:57-0500 Body temperature 98.8 [degF] Dr. Maya Pradhan Work Phone: [facility] 11-17-2023 10:57-0500 Body weight 107.[address] Maya Pradhan Work Phone: [facility] 11-17-2023 10:57-0500 Diastolic blood pressure 78 mm[Hg] Dr. Maya Pradhan Work Phone: [facility] 11-17-2023 10:57-0500 Heart rate 96 /min Dr. Maya Pradhan Work Phone: [facility] 11-17-2023 10:57-0500 Respiratory rate 14 /min Dr. Maya Pradhan Work Phone: [facility] 11-17-2023 10:57-0500 SaO2% (BldA) [Mass fraction] 97 % Dr. Maya Pradhan Work Phone: [facility] 11-17-2023 10:57-0500 Systolic blood pressure 132 mm[Hg] Dr. Maya Pradhan Work Phone: [facility] 10-21-2023 13:09-0500 Body temperature 98.6 [degF] Dr. Maya Pradhan Work Phone: [facility] 10-21-2023 13:09-0500 Body weight 108.[address] Maya Pradhan Work Phone: [facility] 10-21-2023 13:09-0500 Diastolic blood pressure 68 mm[Hg] Dr. Maya Pradhan Work Phone: [facility] 10-21-2023 13:09-0500 Heart rate 84 /min Dr. Maya Pradhan Work Phone: [facility] 10-21-2023 13:09-0500 Respiratory rate 18 /min Dr. Maya Pradhan Work Phone: [facility] 10-21-2023 13:09-0500 SaO2% (BldA) [Mass fraction] 90 % Dr. Maya Pradhan Work Phone: [facility] 10-21-2023 13:09-0500 Systolic blood pressure 123 mm[Hg] Dr. Maya Pradhan Work Phone: [facility] 10-17-2023 09:18-0500 Body temperature 98.2 [degF] Gelacio [facility] ENTERPRISE SYSTEMS ENGINEER.[employer] Work Phone: [facility] 10-17-2023 09:18-0500 Body weight 110.95 kg [facility] ENTERPRISE SYSTEMS ENGINEER.[employer]ER Work Phone: [facility] 10-17-2023 09:18-0500 Diastolic blood pressure 80 mm[Hg] Gel[facility] ENTERPRISE SYSTEMS ENGINEER.[employer]ER Work Phone: [facility] 10-17-2023 09:18-0500 Heart rate 88 /min Gelacio [facility] ENTERPRISE SYSTEMS ENGINEER.[employer]ER Work Phone: [facility] 10-17-2023 09:18-0500 Respiratory rate 16 /min [facility] ENTERPRISE SYSTEMS ENGINEER.[employer]ER Work Phone: [facility] 10-17-2023 09:18-0500 SaO2% (BldA) [Mass fraction] 98 % [facility] ENTERPRISE SYSTEMS ENGINEER.[employer] BR[employer]ER Work Phone: [facility] 10-17-2023 09:18-0500 Systolic blood pressure 128 mm[Hg] [facility] ENTERPRISE SYSTEMS ENGINEER.[employer]TON BROACHER Work Phone: [facility] 10-15-2023 07:52-0500 Body mass index (BMI) [Ratio] 35.9 kg/m2 Dr. Maya Pradhan Work Phone: [facility] 10-15-2023 07:52-0500 Body temperature 97.4 [degF] Dr. Maya Pradhan Work Phone: [facility] 10-15-2023 07:52-0500 Body weight 107.[address] Maya Pradhan Work Phone: [facility] 10-15-2023 07:52-0500 Diastolic blood pressure 63 mm[Hg] Dr. Maya Pradhan Work Phone: [facility] 10-15-2023 07:52-0500 Heart rate 93 /min Dr. Maya Pradhan Work Phone: [facility] 10-15-2023 07:52-0500 Respiratory rate 18 /min Dr. Maya Pradhan Work Phone: [facility] 10-15-2023 07:52-0500 SaO2% (BldA) [Mass fraction] 93 % Dr. Maya Pradhan Work Phone: [facility] 10-15-2023 07:52-0500 Systolic blood pressure 111 mm[Hg] Dr. Maya Pradhan Work Phone: [facility] 10-07-2023 08:44-0500 Body temperature 97.7 [degF] Dr. Maya Pradhan Work Phone: [facility] 10-07-2023 08:44-0500 Body weight 107.[address] Maya Pradhan Work Phone: [facility] 10-07-2023 08:44-0500 Diastolic blood pressure 68 mm[Hg] Dr. Maya Pradhan Work Phone: [facility] 10-07-2023 08:44-0500 Heart rate 84 /min Dr. Maya Pradhan Work Phone: [facility] 10-07-2023 08:44-0500 Respiratory rate 16 /min Dr. Maya Pradhan Work Phone: [facility] 10-07-2023 08:44-0500 SaO2% (BldA) [Mass fraction] 94 % Dr. Maya Pradhan Work Phone: [facility] 10-07-2023 08:44-0500 Systolic blood pressure 122 mm[Hg] Dr. Maya Pradhan Work Phone: [facility] 09-30-2023 07:22-0500 Body weight 109.[address] Maya Pradhan Work Phone: [facility] 09-29-2023 07:16-0500 Body mass index (BMI) [Ratio] 36.6 kg/m2 Dr. Maya Pradhan Work Phone: [facility] 08-20-2023 13:55-0500 Body temperature 98.4 [degF] Dr. Maya Pradhan Work Phone: [facility] 08-20-2023 13:55-0500 Body weight 109.[address] Maya Pradhan Work Phone: [facility] 08-20-2023 13:55-0500 Diastolic blood pressure 76 mm[Hg] Dr. Maya Pradhan Work Phone: [facility] 08-20-2023 13:55-0500 Heart rate 97 /min Dr. Maya Pradhan Work Phone: [facility] 08-20-2023 13:55-0500 SaO2% (BldA) [Mass fraction] 92 % Dr. Maya Pradhan Work Phone: [facility] 08-20-2023 13:55-0500 Systolic blood pressure 149 mm[Hg] Dr. Maya Pradhan Work Phone: [facility] 07-28-2023 14:00-0500 Inhaled oxygen flow rate 2.5 L/min Dr. Maya Pradhan Work Phone: [facility] 07-28-2023 09:15-0500 Diastolic blood pressure 69 mm[Hg] Dr. Maya Pradhan Work Phone: [facility] 07-28-2023 09:15-0500 Heart rate 79 /min Dr. Maya Pradhan Work Phone: [facility] 07-28-2023 09:15-0500 Respiratory rate 20 /min Dr. Maya Pradhan Work Phone: [facility] 07-28-2023 09:15-0500 SaO2% (BldA) [Mass fraction] 95 % Dr. Maya Pradhan Work Phone: [facility] 07-28-2023 09:15-0500 Systolic blood pressure 131 mm[Hg] Dr. Maya Pradhan Work Phone: [facility] 07-28-2023 08:00-0500 Body temperature 98.7 [degF] Dr. Maya Pradhan Work Phone: [facility] 07-26-2023 11:48-0500 Body height 172.[address] Maya Pradhan Work Phone: [facility] 07-26-2023 11:48-0500 Body weight 110.[address] Maya Pradhan Work Phone: [facility] 07-23-2023 01:25-0500 Body mass index (BMI) [Ratio] 36.9 kg/m2 Dr. Maya Pradhan Work Phone: [facility] 07-22-2023 23:41-0500 Respiratory rate 20 /min Dr. Maya Pradhan Work Phone: [facility] 07-22-2023 22:44-0500 Body temperature 98.3 [degF] Dr. Maya Pradhan Work Phone: [facility] 07-22-2023 22:44-0500 Diastolic blood pressure 66 mm[Hg] Dr. Maya Pradhan Work Phone: [facility] 07-22-2023 22:44-0500 Heart rate 76 /min Dr. Maya Pradhan Work Phone: [facility] 07-22-2023 22:44-0500 SaO2% (BldA) [Mass fraction] 94 % Dr. Maya Pradhan Work Phone: [facility] 07-22-2023 22:44-0500 Systolic blood pressure 129 mm[Hg] Dr. Maya Pradhan Work Phone: [facility] 07-22-2023 20:00-0500 Body mass index (BMI) [Ratio] 38.7 kg/m2 Dr. Maya Pradhan Work Phone: [facility] 07-22-2023 20:00-0500 Body weight 115.[address] Maya Pradhan Work Phone: [facility] 07-22-2023 18:57-0500 Body height 172.[address] Maya Pradhan Work Phone: [facility] 07-15-2023 09:07-0400 Body temperature 98.6 [degF] Dr. Maya Pradhan Work Phone: [facility] 07-15-2023 09:07-0400 Body weight 111.[address] Maya Pradhan Work Phone: [facility] 07-15-2023 09:07-0400 Diastolic blood pressure 70 mm[Hg] Dr. Maya Pradhan Work Phone: [facility] 07-15-2023 09:07-0400 Heart rate 90 /min Dr. Maya Pradhan Work Phone: [facility] 07-15-2023 09:07-0400 Respiratory rate 16 /min Dr. Maya Pradhan Work Phone: [facility] 07-15-2023 09:07-0400 Systolic blood pressure 125 mm[Hg] Dr. Maya Pradhan Work Phone: [facility] 04-29-2023 13:59-0400 Body height 172.[address] Maya Pradhan Work Phone: [facility] 04-29-2023 13:59-0400 Body mass index (BMI) [Ratio] 36.3 kg/m2 Dr. Maya Pradhan Work Phone: [facility] 04-29-2023 13:59-0400 Body weight 108.[address] Maya Pradhan Work Phone: [facility] 04-29-2023 13:59-0400 Diastolic blood pressure 76 mm[Hg] Dr. Maya Pradhan Work Phone: [facility] 04-29-2023 13:59-0400 Heart rate 85 /min Dr. Maya Pradhan Work Phone: [facility] 04-29-2023 13:59-0400 Respiratory rate 16 /min Dr. Maya Pradhan Work Phone: [facility] 04-29-2023 13:59-0400 Systolic blood pressure 123 mm[Hg] Dr. Maya Pradhan Work Phone: [facility] 03-24-2023 13:12-0400 Body mass index (BMI) [Ratio] 36.9 kg/m2 Dr. Maya Pradhan Work Phone: [facility] 03-24-2023 13:12-0400 Body weight 110.[address] Maya Pradhan Work Phone: [facility] 03-24-2023 13:12-0400 Diastolic blood pressure 78 mm[Hg] Dr. Maya Pradhan Work Phone: [facility] 03-24-2023 13:12-0400 Heart rate 92 /min Dr. Maya Pradhan Work Phone: [facility] 03-24-2023 13:12-0400 Respiratory rate 18 /min Dr. Maya Pradhan Work Phone: [facility] 03-24-2023 13:12-0400 Systolic blood pressure 132 mm[Hg] Dr. Maya Pradhan Work Phone: [facility] 11-05-2022 07:39-0500 Body height 172.[address] Maya Pradhan Work Phone: [facility] 11-05-2022 07:39-0500 Body mass index (BMI) [Ratio] 36.9 kg/m2 Dr. Maya Pradhan Work Phone: [facility] 11-05-2022 07:39-0500 Body temperature 97.2 [degF] Dr. Maya Pradhan Work Phone: [facility] 11-05-2022 07:39-0500 Body weight 110.[address] Maya Pradhan Work Phone: [facility] 11-05-2022 07:39-0500 Diastolic blood pressure 71 mm[Hg] Dr. Maya Pradhan Work Phone: [facility] 11-05-2022 07:39-0500 Heart rate 93 /min Dr. Maya Pradhan Work Phone: [facility] 11-05-2022 07:39-0500 Respiratory rate 18 /min Dr. Maya Pradhan Work Phone: [facility] 11-05-2022 07:39-0500 SaO2% (BldA) [Mass fraction] 96 % Dr. Maya Pradhan Work Phone: [facility] 11-05-2022 07:39-0500 Systolic blood pressure 125 mm[Hg] Dr. Maya Pradhan Work Phone: [facility] 09-18-2022 09:33-0500 Body height 172.[address] Maya Pradhan Work Phone: [facility] 09-18-2022 09:33-0500 Body mass index (BMI) [Ratio] 37.2 kg/m2 Dr. Maya Pradhan Work Phone: [facility] 09-18-2022 09:33-0500 Body weight 111.[address] Maya Pradhan Work Phone: [facility] 09-18-2022 09:33-0500 Diastolic blood pressure 76 mm[Hg] Dr. Maya Pradhan Work Phone: [facility] 09-18-2022 09:33-0500 Heart rate 97 /min Dr. Maya Pradhan Work Phone: [facility] 09-18-2022 09:33-0500 Respiratory rate 20 /min Dr. Maya Pradhan Work Phone: [facility] 09-18-2022 09:33-0500 SaO2% (BldA) [Mass fraction] 92 % Dr. Maya Pradhan Work Phone: [facility] 09-18-2022 09:33-0500 Systolic blood pressure 145 mm[Hg] Dr. Maya Pradhan Work Phone: [facility] 03-14-2022 09:53-0400 Body height 172.[address] Maya Pradhan Work Phone: [facility] Work Phone: 03-14-2022 09:53-0400 Body mass index (BMI) [Ratio] 35.6 kg/m2 Dr. Maya Pradhan Work Phone: [facility] Work Phone: 03-14-2022 09:53-0400 Body weight 106.[address] Maya Pradhan Work Phone: [facility] Work Phone: 03-14-2022 09:53-0400 Diastolic blood pressure 64 mm[Hg] Dr. Maya Pradhan Work Phone: [facility] Work Phone: 03-14-2022 09:53-0400 Heart rate 80 /min Dr. Maya Pradhan Work Phone: [facility] Work Phone: 03-14-2022 09:53-0400 Respiratory rate 18 /min Dr. Maya Pradhan Work Phone: [facility] Work Phone: 03-14-2022 09:53-0400 Systolic blood pressure 126 mm[Hg] Dr. Maya Pradhan Work Phone: [facility] Work Phone: 12-06-2021 07:22-0400 Body height 172.[address] Maya Pradhan Work Phone: [facility] Work Phone: 12-06-2021 07:22-0400 Body weight 104.[address] Maya Pradhan Work Phone: [facility] Work Phone: 12-05-2021 08:00-0400 Body mass index (BMI) [Ratio] 35.1 kg/m2 Dr. Maya Pradhan Work Phone: [facility] Work Phone: 11-29-2021 11:26-0400 Body mass index (BMI) [Ratio] 35.1 kg/m2 Dr. Maya Pradhan Work Phone: [facility] Work Phone: 11-29-2021 11:26-0400 Body temperature 97.8 [degF] Dr. Maya Pradhan Work Phone: [facility] Work Phone: 11-29-2021 11:26-0400 Body weight 104.[address] Maya Pradhan Work Phone: [facility] Work Phone: 11-29-2021 11:26-0400 Diastolic blood pressure 70 mm[Hg] Dr. Maya Pradhan Work Phone: [facility] Work Phone: 11-29-2021 11:26-0400 Heart rate 90 /min Dr. Maya Pradhan Work Phone: [facility] Work Phone: 11-29-2021 11:26-0400 Respiratory rate 20 /min Dr. Maya Pradhan Work Phone: [facility] Work Phone: 11-29-2021 11:26-0400 SaO2% (BldA) [Mass fraction] 94 % Dr. Maya Pradhan Work Phone: [facility] Work Phone: 11-29-2021 11:26-0400 Systolic blood pressure 135 mm[Hg] Dr. Maya Pradhan Work Phone: [facility] Work Phone: 11-29-2021 11:26-0400 Body mass index (BMI) [Ratio] 35.1 kg/m2 Dr. Maya Pradhan Work Phone: [facility] Work Phone: 11-29-2021 11:26-0400 Body temperature 97.8 [degF] Dr. Maya Pradhan Work Phone: [facility] Work Phone: 11-29-2021 11:26-0400 Body weight 104.[address] Maya Prdahan Work Phone: [facility] Work Phone: 11-29-2021 11:26-0400 Diastolic blood pressure 70 mm[Hg] Dr. Maya Pradhan Work Phone: [facility] Work Phone: 11-29-2021 11:26-0400 Heart rate 90 /min Dr. Maya Pradhan Work Phone: [facility] Work Phone: 11-29-2021 11:26-0400 Respiratory rate 20 /min Dr. Maya Pradhan Work Phone: [facility] Work Phone: 11-29-2021 11:26-0400 SaO2% (BldA) [Mass fraction] 94 % Dr. Maya Pradhan Work Phone: [facility] Work Phone: 11-29-2021 11:26-0400 Systolic blood pressure 135 mm[Hg] Dr. Maya Pradhan Work Phone: [facility] Work Phone: 10-29-2021 07:41-0500 Body mass index (BMI) [Ratio] 35.1 kg/m2 Dr. Maya Pradhan Work Phone: [facility] Work Phone: 10-29-2021 07:41-0500 Body temperature 97.6 [degF] Dr. Maya Pradhan Work Phone: [facility] Work Phone: 10-29-2021 07:41-0500 Body weight 104.[address] Maya Pradhan Work Phone: [facility] Work Phone: 10-29-2021 07:41-0500 Diastolic blood pressure 67 mm[Hg] Dr. Maya Pradhan Work Phone: [facility] Work Phone: 10-29-2021 07:41-0500 Heart rate 88 /min Dr. Maya Pradhan Work Phone: [facility] Work Phone: 10-29-2021 07:41-0500 Respiratory rate 16 /min Dr. Maya Pradhan Work Phone: [facility] Work Phone: 10-29-2021 07:41-0500 SaO2% (BldA) [Mass fraction] 93 % Dr. Maya Pradhan Work Phone: [facility] Work Phone: 10-29-2021 07:41-0500 Systolic blood pressure 127 mm[Hg] Dr. Maya Pradhan Work Phone: [facility] Work Phone: Encounters Encounter Date Encounter Type Care Provider Facility Start: 07-13-2025 End: 07-13-2025 ambulatory MAYA PRADHAN Facility:[facility] Start: 06-15-2025 End: 06-15-2025 Patient encounter procedure Ruth GARCIA -[facility] Work Phone: Start: 06-15-2025 End: 06-15-[address] Maya Pradhan DO Work Phone: -[facility] Start: 05-29-2025 ambulatory JEREMÍAS FAJARDO [facility] Start: 05-29-2025 End: 05-29-2025 Office outpatient visit 25 minutes Jeremías Fajardo MD Work Phone: [facility] Comment on above: Incomplete bladder e mptying (Primary Dx); Prostate cancer screening Start: 05-29-2025 ambulatory JEREMÍASGIOVANNA FAJARDO [facility] Start: 05-19-2025 End: 05-19-2025 Patient encounter procedure Jeremías Fajardo MD Work Phone: [facility] Comment on above: BPH with obstruction /lower urinary tract symptoms (Primary Dx); Feeling of incomplete bladder emptying Start: 05-19-2025 [facility] Start: 05-11-2025 End: 05-11-2025 Clinical Support Encounter Jia Lee APRN-[employer]ER Work Phone: [facility] Comment on above: Feeling of incomplet e bladder emptying (Primary Dx) Start: 05-03-2025 End: 05-03-2025 Patient encounter procedure Kasia GARCIA [facility] Work Phone: Start: 05-03-2025 End: 05-03-[address] Maya Pradhan DO Work Phone: [facility] Start: 04-23-2025 ambulatory DELICIASuraj SWARTZ [facility] Start: 04-17-2025 End: 04-17-2025 Office outpatient new 45 minutes Jia Lee ENTERPRISE SYSTEMS ENGINEER-[employer]ER Work Phone: [facility] Comment on above: Urinary urgency (Allyson jake Dx); BPH with obstruction/lower urinary tract symptoms; Urinary frequency; Incomplete bladder emptying; Family history of prostate cancer; Balanitis; Erectile dysfunction due to arterial insufficiency; Testicular swelling Start: 04-17-2025 ambulatory DELICIA Florentino [facility] Start: 03-28-2025 End: 03-28-[address] Maya Pradhan DO Work Phone: -[facility] Start: 03-28-2025 End: 03-28-[address] Ricardo Jones DP -[facility] Work Phone: Start: 03-28-2025 End: 03-28-2025 ambulatory Ricardo Jones Facility:[facility] Start: 03-21-2025 End: 03-21-2025 Patient encounter procedure Bryon Turner PA-C Work Phone: Urology Comment on above: BPH with obstruction /lower urinary tract symptoms (Primary Dx); Urine retention; Type 2 diabetes mellitus with hyperglycemia, unspecified whether chcf insulin use (HCC); Screening for genitourinary condition Start: 03-21-2025 End: 03-21-2025 ambulatory MAYA PRADHAN Facility:[facility] Start: 02-13-2025 End: 02-13-[address] Maya Pradhan DO Work Phone: [facility] Work Phone: Start: 02-13-2025 End: 02-13-2025 Patient encounter procedure Kasia Childs PA -Laboratory Work Phone: Start: 02-13-2025 End: 02-13-2025 ambulatory Maya Pradhan Facility:[facility] Start: 01-24-2025 End: 01-24-2025 Office outpatient visit 25 minutes Rochelle Branch PA-C Work Phone: [facility] Comment on above: Tinea cruris (Primar y Dx) Start: 01-24-2025 End: 01-24-2025 ambulatory MAYA PRADHAN Facility:[facility] Start: 12-31-2024 End: 12-31-2024 Patient encounter procedure Marisa Blanco APRN.[employer]TON [employer]OACHER Work Phone: [facility] Comment on above: Tinea cruris (Primar y Dx); Penile irritation Start: 12-31-2024 End: 12-31-2024 ambulatory MAYA A CAROLYNN Facility:[facility] Start: 12-21-2024 End: 12-21-2024 [facility] Start: 12-21-2024 End: 12-21-2024 Patient encounter procedure Sally Herndon APRN.CNP Work Phone: [facility] Comment on above: Skin infection (Prim christiano Dx) Start: 12-19-2024 End: 12-20-2024 Follow-up encounter Bryon Turner PA-C Work Phone: Urology Comment on above: Results Start: 12-13-2024 End: 12-13-2024 ambulatory MAYA PRADHAN Facility:[facility] Start: 12-13-2024 End: 12-13-2024 Patient encounter [...] 11-04-2024 End: 11-04-2024 Patient encounter procedure Ruth GARCIA -[facility] Work Phone: Start: 11-04-2024 End: 11-04-2024 ambulatory Maya Pradhan Facility:[facility] Start: 10-31-2024 End: 10-31-[address] Ricardo Jones [facility] Work Phone: Start: 10-31-2024 End: 10-31-2024 ambulatory Ricardo Jones Facility:[facility] Start: 10-11-2024 End: 10-11-2024 ambulatory Carlos Eduardo Hinds NP Facility:[facility] Start: 10-09-2024 End: 10-09-2024 Emergency department patient visit Maya Pradhan Facility:[facility] Start: 10-05-2024 End: 10-05-2024 Telephone encounter Bryon Turner PA-C Work Phone: Urology Start: 10-01-2024 End: 10-01-2024 Patient encounter procedure Ria Branch ENTERPRISE SYSTEMS ENGINEER.[employer]ER Work Phone: [facility] Comment on above: Feared condition not demonstrated (Primary Dx); Skin erythema Start: 10-01-2024 End: 10-01-2024 ambulatory Margaret Lo RN NURSE [employer] Comment on above: Difficulty Urinating Start: 09-28-2024 End: 09-28-2024 Telephone encounter Alan Mckeon APRN.[employer]ER Work Phone: [facility] Comment on above: Results Start: 09-25-2024 End: 09-26-2024 ambulatory Maya Pradhan Facility:[facility] Start: 09-25-2024 End: 09-25-2024 Patient encounter procedure Kodi Andrewgia ENTERPRISE SYSTEMS ENGINEER.[employer]ER Work Phone: [facility] Comment on above: Healing wound (Prima ry Dx) Start: 09-20-2024 End: 09-20-2024 Telephone encounter Anila Banerjee ENTERPRISE SYSTEMS ENGINEER.[employer]OACHER Work Phone: [facility] Comment on above: Results Start: 09-18-2024 End: 09-18-2024 Telephone encounter Ria Branch APRN.[employer]ER Work Phone: [facility] Comment on above: Results Start: 09-17-2024 End: 09-17-2024 ambulatory Maya Pradhan DO Work Phone: [facility] Comment on above: Symptoms Start: 09-17-2024 End: 09-17-2024 Patient encounter procedure Kami Younger APRN.[employer]TON BR[employer]ACHER Work Phone: [facility] Comment on above: Open wound (Primary Dx); Dysuria Start: 09-16-2024 End: 09-16-2024 ambulatory Maya Malys Facility:[facility] Start: 09-15-2024 ambulatory Lamin A Ring Facility: [facility] Start: 09-13-2024 End: 09-13-2024 Telephone encounter Lamar Quinones APRN.[employer]TON [employer]ER Work Phone: Urology Comment on above: Patient Question Start: 09-10-2024 End: 09-10-2024 ambulatory Alex Valeriy Facility:[facility] Start: 09-02-2024 End: 09-02-2024 ambulatory Kasia GARCIA Facility:[facility] Start: 08-26-2024 ambulatory Maya Malys Facility:[facility] Start: 08-23-2024 End: 09-05-2024 ambulatory Lamin A Ring Facility:[facility] Start: 08-22-2024 End: 08-22-2024 ambulatory Maya Malys Facility:[facility] Start: 08-09-2024 End: 08-13-2024 ambulatory Lamin A Ring Facility:[facility] Start: 08-09-2024 End: 08-09-2024 ambulatory Maya Malys Facility:[facility] Start: 07-28-2024 End: 07-28-2024 ambulatory Alex Valeriy Facility:[facility] Start: 07-28-2024 End: 07-28-2024 ambulatory Alex Valeriy Facility:[facility] Start: 07-19-2024 End: 07-19-2024 ambulatory MAYA A MALYS Facility:[facility] Start: 07-19-2024 End: 07-19-2024 Patient encounter procedure Kodi Vuong APRN.[employer] Work Phone: [facility] Comment on above: Fungal infection of the groin (Primary Dx) Start: 07-14-2024 End: 07-14-2024 Patient encounter procedure Carlos Eduardo Sidhu MD Work Phone: Urology Comment on above: BPH with obstruction /lower urinary tract symptoms (Primary Dx); Urine retention; OAB (overactive bladder) Start: 06-24-2024 ambulatory Alex Valeriy Facility:[facility] Start: 06-21-2024 End: 06-21-2024 Office outpatient visit 25 minutes Lamar Quinones APRN.[employer] Work Phone: Urology Comment on above: BPH with obstruction /lower urinary tract symptoms (Primary Dx); Urine retention Start: 06-15-2024 End: 06-15-2024 Telephone encounter Lamar Quinones APRN.BENJAMIN Work Phone: Urology Comment on above: Appointment Start: 06-10-2024 End: 06-10-2024 Telephone encounter Lamar Quinones APRN.CNP Work Phone: Urology Comment on above: Patient Question Start: 03-29-2024 End: 03-29-2024 Patient encounter procedure Lamar Quinones APRN.[employer] Work Phone: Urology Comment on above: BPH with obstruction /lower urinary tract symptoms (Primary Dx); Type 2 diabetes mellitus without retinopathy (HCC); Erectile dysfunction due to arterial insufficiency; Family history of prostate cancer Start: 02-01-2024 End: 02-02-2024 ambulatory GLENDY CARDOZA APRN-BENJAMIN Facility:[facility] Start: 02-01-2024 End: 02-02-[address] JEREMÍAS VAZ MD [facility] Start: 01-14-2024 Non-patient / Non-visit Dr. Akiko Pradhan Work Phone: [facility] Start: 01-14-2024 End: 01-14-[address] Maya Pradhan Work Phone: [facility] Work Phone: Start: 01-14-2024 End: 01-14-[address] Maya Pradhan Work Phone: [facility] Work Phone: Start: 01-13-2024 End: 01-13-[address] Maya Pradhan Work Phone: [facility] Work Phone: Start: 01-04-2024 Non-patient / Non-visit Dr. Akiko Pradhan Work Phone: [facility] Start: 01-04-2024 End: 01-04-[address] Maya Pradhan Work Phone: [facility] Work Phone: Start: 01-04-2024 End: 01-04-[address] [facility] Work Phone: Start: 12-18-2023 End: 12-18-[address] JEREMÍAS VAZ MD Facility:B Start: 12-10-2023 End: 12-10-[address] Maya Pradhan Work Phone: [facility] Work Phone: Start: 12-10-2023 End: 12-10-[address] [facility] Start: 12-07-2023 End: 12-07-[address] Maya Pradhan Work Phone: [facility] Work Phone: Start: 11-17-2023 End: 11-17-[address] Maya Pradhan Work Phone: [facility] Work Phone: Start: 10-21-2023 End: 10-21-[address] Maya Pradhan Work Phone: [facility] Work Phone: Start: 10-17-2023 End: 10-17-2023 Office outpatient visit 15 minutes Gelacio Burgos APRN.CNP Work Phone: [facility] Comment on above: Itching (Primary Dx) Start: 10-15-2023 End: 10-15-[address] Maya Pradhan Work Phone: [facility] Work Phone: Start: 10-07-2023 End: 10-07-[address] Maya Pradhan Work Phone: [facility] Work Phone: Start: 09-30-2023 Non-patient / Non-visit Dr. Akiko Pradhan Work Phone: [facility] Start: 09-30-2023 End: 09-30-2023 Admission to same day surgery center Dr. Maya Pradhan Work Phone: [facility] Worker/Special Procedures Work Phone: Start: 09-30-2023 End: 09-30-[address] Maya Pradhan Work Phone: [facility] Work Phone: Start: 08-20-2023 End: 08-20-[address] Maya Pradhan Work Phone: [facility] Work Phone: Start: 07-30-[address] Maya strickland Work Phone: [facility] [place] Start: 07-29-2023 End: 07-29-[address] Maya Pradhan Work Phone: [facility] Work Phone: Start: 07-28-2023 Non-patient / Non-visit Dr. Akiko Pradhan Work Phone: [facility] Work Phone: Start: 07-27-2023 Non-patient / Non-visit Dr. Akiko Pradhan Work Phone: [facility] Work Phone: Start: 07-26-2023 Non-patient / Non-visit Dr. Akiko Pradhan Work Phone: [facility] Work Phone: Start: 07-25-2023 Non-patient / Non-visit Dr. Akiko Pradhan Work Phone: [facility] Work Phone: Start: 07-24-2023 Non-patient / Non-visit Dr. Akiko Pradhan Work Phone: [facility] Work Phone: Start: 07-23-2023 Non-patient / Non-visit Dr. Akiko Pradhan Work Phone: [facility] Work Phone: Start: 07-22-2023 End: 07-28-2023 Evaluation and management of inpatient Dr. Maya Pradhan Work Phone: [facility] Work Phone: Start: 07-15-2023 End: 07-15-[address] Maya Pradhan Work Phone: [facility] Work Phone: Start: 07-10-2023 End: 07-10-[address] Maya Pradhan Work Phone: [facility] Work Phone: Start: 07-10-2023 End: 07-10-[address] Maya Pradhan Work Phone: [facility] Work Phone: Start: 07-09-2023 End: 07-09-[address] Maya Pradhan Work Phone: [facility] Work Phone: Start: 07-09-2023 End: 07-09-[address] Maya Pradhan Work Phone: [facility]-Laboratory, Specimen Work Phone: Start: 04-29-2023 End: 04-29-[address] Maya Pradhan Work Phone: [facility] Work Phone: Start: 04-01-2023 Non-patient / Non-visit Dr. Akiko Pradhan Work Phone: [facility] Work Phone: Start: 04-01-2023 Non-patient / Non-visit Dr. Akiko Pradhan Work Phone: [facility] Start: 04-01-2023 End: 04-01-[address] Maya Pradhan Work Phone: [facility] Work Phone: Start: 03-24-2023 End: 03-24-[address] Maya Pradhan Work Phone: [facility] Work Phone: Start: 02-19-2023 End: 02-19-[address] Maya Pradhan Work Phone: [facility] Work Phone: Start: 02-19-2023 End: 02-19-[address] Maya Pradhan Work Phone: [facility] Start: 01-02-2023 End: 01-06-2023 Outreach Lab AMERICA JURGEN [employer]TER[employer]ISE [employer] ENGINEER-[employer]TON [employer] [facility] Start: 12-15-2022 End: 12-15-[address] Maya Pradhan Work Phone: [facility] Work Phone: Start: 12-15-2022 End: 12-15-[address] Maya Pradhan Work Phone: [facility]-Laboratory, [facility] Start: 11-05-2022 End: 11-05-[address] Maya Pradhan Work Phone: [facility]-Pulmonary Medicine [facility] Start: 09-19-2022 Non-patient / Non-visit Dr. Akiko Pradhan Work Phone: [facility] Start: 09-19-2022 End: 09-19-[address] Maya Pradhan Work Phone: [facility] Work Phone: Start: 09-19-2022 End: 09-19-[address] Maya Pradhan Work Phone: [facility]Cardiov[facility] Start: 09-18-2022 End: 09-18-[address] Maya Pradhan Work Phone: [facility] Start: 07-28-2022 End: 07-28-2022 Patient encounter procedure MIGUEL ANGEL QUINN [employer]ISE [employer]S ENGINEER-[employer]TON [employer] [facility] Start: 04-30-2022 End: 05-04-2022 Outreach Lab JAYNA SKINNER [employer]ISE [employer]S ENGINEER-[employer]TON [employer]ER [facility] Start: 03-14-2022 End: 03-14-[address] Maya Pradhan Work Phone: [facility] Start: 03-13-2022 End: 03-13-[address] Maya Pradhan Work Phone: [facility]-Laboratory, Specimen Start: 01-14-2022 End: 01-14-[address] Maya Pradhan Work Phone: [facility] Start: 12-30-2021 End: 12-30-[address] [facility] Start: 12-06-2021 End: 12-06-2021 Admission to same day surgery center Dr. Maya Pradhan Work Phone: [facility] Worker/Special Procedures Start: 11-29-2021 End: 11-29-[address] Maya Pradhan Work Phone: [facility] Start: 11-21-2021 Non-patient / Non-visit Dr. Akiko Pradhan Work Phone: [facility] Start: 11-21-2021 End: 11-21-[address] Maya [facility]adhan [facility] Start: 10-30-2021 End: 10-30-[address] Maya Pradhan Work Phone: [facility] Start: 10-29-2021 End: 10-29-[address] Maya Pradhan Work Phone: [facility] Start: 10-11-2021 End: 10-11-[address] Maya Pradhan Work Phone: [facility] Start: 08-19-2018 End: 08-19-2018 Patient encounter procedure George Rainey Facility:[facility] Start: 08-19-2018 Patient encounter procedure Facility:[id number] Start: 07-29-2018 End: 07-29-2018 Patient encounter procedure George Rainey Facility:[facility] Start: 07-29-2018 Patient encounter procedure Facility:[id number] Start: 06-16-2018 End: 06-17-2018 Patient encounter procedure Lloyd Mejía Facility:[facility] Start: 06-16-2018 Patient encounter procedure Facility:[id number] Start: 06-14-2018 End: 06-15-2018 Patient encounter procedure Lloyd Craig [facility] Facility:[facility] Procedures Date Procedure Procedure Detail Performing Clinician Start: 05-19-2025 Cystourethroscopy Jeremías Fajardo MD Work Phone: Start: 05-19-2025 Us transrectal Jeremías Fajardo MD Work Phone: Start: 05-19-2025 Urnls dip stick/tablet rgnt auto w/o microscopy Jeremías Fajardo MD Work Phone: Start: 04-17-2025 Urnls dip stick/tablet rgnt auto w/o microscopy Jia Lee [employer]ISE [employer]S ENGINEER-[employer]ER Work Phone: Start: 03-21-2025 Urnls dip stick/tablet [...] stick/tablet rgnt auto w/o microscopy Lamar Quinones ENTER[employer]ISE SYSTEMS ENGINEER.[employer]TON [employer]ER Work Phone: Start: 01-14-2024 Plain chest X-ray [...] mm 04/13/2019 Start: 10-10-2008 Colonoscopy Gelacio Burgos EN[employer]ISE [employer] ENGINEER.[employer]ER Work Phone: Appendectomy JAYNADENA CARSON [employer]ISE [employer] ENGINEER-[employer]ER Cholecystectomy JAYNA HARVEY EIJONO [employer]ISE [employer]S ENGINEER-[employer]OACHER H/O: surgery History of explo ratory laparotomy Dr. Maya Pradhan Work Phone: H/O: vasectomy History of vasectomy Dr. Oz Pradhan Work Phone: Heart structure (bod y structure) JAYNA SKINNER [employer]ISE [employer] ENGINEER-[employer]ER Comment on above: cardiac stents Jun History [...] Pradhan Work Phone: Lipoma (disorder) JAYNA SKINNER [employer]ISE [employer] ENGINEER-[employer]TON [employer]ER Comment on above: removal Repair of meniscus JAYNA SKINNER [employer]ISE [employer]S ENGINEER-[employer]ER Comment on above: left Vasectomy JAYNA CARSON EN[employer]ISE [employer]S ENGINEER-[employer]ER Plan of Treatment Date Care Activity Detail Author Start: 10-09-2034 Tetanus vaccination [facility] Start: 10-09-2034 Urine microalbumin profile DTaP,Tdap,Td Vaccine (2 - Td or Tdap) [facility] Start: 2026 RSV VACCINE (1 - 1-dose 75+ series) RSV VACCINE (1 - 1-dose 75+ series) [facility] Start: 03-27-2026 End: 03-27-2026 Patient encounter procedure 03/27/2026 8:00 AM EDT Office Visit Urology [address] [place] [address] Bryon Turner PA-C [address] [place] [address] 1 yr f/u-BPH Urology Comment on above: 1 yr f/u-BPH Start: 12-21-2025 BP Controlled (<130/80) BP Controlled (<130/80) [facility] Start: 09-25-2025 BP Controlled (<130/80) BP Controlled (<130/80) [facility] Start: 09-17-2025 BP Controlled (<130/80) BP Controlled (<130/80) [facility] Start: 05-29-2025 End: 05-29-2025 Patient encounter procedure 05/29/2025 11:00 AM EDT [facility] [address] [place] [id number] Jeremías Fajardo MD [address] [place] [address] [facility] Start: 05-19-2025 End: 05-19-2025 Patient encounter procedure 05/19/2025 9:00 AM EDT [facility] [address] [place] [id number] Jeremías Fajardo MD [address] [place] [address] [facility] Start: 05-15-2025 COVID-19 VACCINE ( season) COVID-19 VACCINE ( season) [facility] Start: 05-15-2025 Influenza vaccination [facility] Start: 05-11-2025 End: 05-11-2025 Clinical Support Encounter 05/11/2025 8:00 AM EDT Clinical Support Encounter [facility] [address] [place] [address] [facility] Start: 04-17-2025 End: 04-17-2026 US Kidney US RENAL RETROPERITONEAL Imaging Routine Incomplete bladder emptying Expected: 04/17/2025, Expires: 04/17/2026 [facility] Comment on above: Expected: 04/17/2025, Expires: Start: 04-17-2025 End: 04-17-2026 US.doppler Scrotum and testicle US SCROTUM AND TESTICLES WITH DOPPLER Imaging Routine Testicular swelling Expected: 04/17/2025, Expires: 04/17/2026 [facility] Comment on above: Expected: 04/17/2025, Expires: Start: 03-14-2025 End: 03-14-2025 Patient encounter procedure 03/14/2025 9:30 AM EDT Office Visit Urology [address] [place] [address] Bryon Turner PA-C [address] [place] [address] 3 month follow up Urology Comment on above: 3 month follow up Start: 12-27-2024 End: 12-27-2024 Patient encounter procedure 12/27/2024 8:00 AM EDT Office Visit Urology [address] [place] [address] Bryon Turner PA-C [address] [place], [place] [id number] Erectile Dysfunction Consult- Referred by Lamar Quinones Urology Comment on above: Erectile Dysfunction Consult- Referred Carloz Quinones Start: 12-13-2024 End: 03-14-2025 Prostate Specific Ag Free [Mass/volume] in Serum or Plasma PROSTATE SPECIFIC ANTIGEN, FREE Lab Routine Family history of prostate cancer Expected: 12/13/2024 (Approximate), Expires: 03/14/2025 [facility] Comment on above: Expected: 12/13/2024 (Approximate), Expi res: 03/14/2025 Start: 11-07-2024 [facility] Start: 11-07-2024 [facility] Start: 10-11-2024 End: 10-11-2024 Patient encounter procedure 10/11/2024 10:30 AM EST Office Visit Urology [address] [place] [address] Bryon Turner PA-C [address] [place] [address] ED-Patient is est at [facility] Comment on above: ED-Patient is est at [facility] Start: 09-17-2024 End: 12-17-2024 Bacteria identified in Wound by Culture ABSCESS AND WOUND CULTURE WITH GRAM STAIN Microbiology Routine Open wound Expected: 09/17/2024, Expires: 12/17/2024 [facility] Comment on above: Expected: 09/17/2024, Expires: Start: 09-17-2024 End: 12-17-2024 Fungus identified in Unspecified specimen by Culture YEAST SCREEN Microbiology Routine Open wound Expected: 09/17/2024, Expires: 12/17/2024 [facility] Comment on above: Expected: 09/17/2024, Expires: Start: 09-14-2024 Advance Directive Discussion Advance Directive Discussion [facility] Start: 09-14-2024 Medicare Advantage Annual Wellness Visit Medicare Advantage Annual Wellness Visit [facility] Start: 07-14-2024 End: 07-14-2024 Patient encounter procedure 07/14/2024 8:30 AM EDT Office Visit Urology [address] [address] Carlos Eduardo Sidhu MD [address] [place] [id number] [facility] Comment on above: [facility] Start: 06-21-2024 End: 06-21-2024 Patient encounter procedure 06/21/2024 9:20 AM EDT Office Visit Urology [address] [address] Lamar Quinones, EN[employer]ISE SYSTEMS ENGINEER.[employer]ER [address] [place] [address] Follow up, [facility] when in hospital, now urgency Urology Comment on above: Follow up, [facility] when in hospital, now u rgency Start: 06-10-2024 End: 09-09-2024 Bacteria identified in Urine by Culture URINE CULTURE Microbiology Routine UTI symptoms Expected: 06/10/2024, Expires: 09/09/2024 [facility] Work Phone: Comment on above: Expected: 06/10/2024, Expires: Start: 06-10-2024 End: 09-09-2024 URINALYSIS, DIPSTICK ONLY URINALYSIS, DIPSTICK ONLY Lab Routine UTI symptoms Expected: 06/10/2024, Expires: 09/09/2024 [facility] Comment on above: Expected: 06/10/2024, Expires: Start: 05-15-2024 Covid-19 Vaccine ( season) Covid-19 Vaccine ( season) [facility] Start: 05-15-2024 Influenza vaccination Influenza Vaccine (#1) [facility] Start: 09-30-2023 Patient discharge [facility] Start: 09-14-2023 Advance Directive Discussion Advance Directive Discussion [facility] Start: 09-14-2023 Behavioral Health Screening Behavioral Health Screening [facility] Start: 09-14-2023 Depression Assessment Depression Assessment [facility] Start: 07-28-2023 Patient discharge [facility] Start: 07-26-2023 Inhalation therapy procedure [facility] Start: 07-26-2023 [facility] Start: 07-25-2023 Lab findings surveillance [facility] Start: 07-25-2023 Notification of physician [facility] Start: 07-25-2023 Care regimes management [facility] Start: 07-23-2023 Following clinical pathway protocol [facility] Start: 07-23-2023 Referral to service [facility] Start: 07-23-2023 Referral to occupational therapist [facility] Start: 07-23-2023 Wound care [facility] Start: 07-23-2023 Oxygen therapy [facility] Start: 07-23-2023 Consultation [facility] Start: 07-23-2023 Patient referral to dietitian [facility] Start: 07-22-2023 Consultation for treatment [facility] Start: 07-22-2023 Admission procedure [facility] Start: 07-22-2023 Hospital admission, emergency, from emergency room, medical nature [facility] Start: 07-22-2023 Following clinical pathway protocol [facility] Start: 05-15-2023 Covid-19 Vaccine ( season) Covid-19 Vaccine ( season) [facility] Start: 03-13-2022 [facility] Work Phone: Start: 06-21-2019 Glaucoma screening Dilated Retinal Exam [facility] Start: 2011 RSV Vaccine (1 - 1-dose 60+ series) RSV Vaccine (1 - 1-dose 60+ series) [facility] Start: 2011 RSV Vaccine (1 - Risk 60-74 years 1-dose series) RSV Vaccine (1 - Risk 60-74 years 1-dose series) [facility] Start: 10-10-2009 Screening for malignant neoplasm of colon [facility] Start: 06-14-2008 Pneumococcal vaccination PNEUMOCOCCAL VACCINE SERIES (2 of 2 - PCV) [facility] Start: 06-14-2008 Pneumococcal Vaccine: 50+ (2 of 2 - PCV) Pneumococcal Vaccine: 50+ (2 of 2 - PCV) [facility] Start: 06-14-2008 Pneumococcal Vaccine: 65+ (2 of 2 - PCV) Pneumococcal Vaccine: 65+ (2 of 2 - PCV) [facility] Start: 2001 Shingrix Vaccine (1 of 2) Shingrix Vaccine (1 of 2) [facility] Start: 2001 Zoster vaccine hzv live for subcutaneous use ZOSTER (SHINGLES) VACCINE (1 of 2) [facility] Start: 1996 Screening for malignant neoplasm of colon [facility] Start: 1991 Lipid panel LIPID SCREENING [facility] Start: 1970 Urine microalbumin profile DTaP,Tdap,Td Vaccine (1 - Tdap) [facility] Start: 1969 Annual PCP Team Chronic Disease Visit Annual PCP Team Chronic Disease Visit [facility] Start: 1969 Anxiety Screening Anxiety Screening [facility] Start: 1969 BP Controlled (<130/80) BP Controlled (<130/80) [facility] Start: 1969 Depression Screening Depression Screening [facility] Start: 1969 Hepatitis B surface antibody level LDL Cholesterol [facility] Start: 1969 Hepatitis C screening Hepatitis C Screening [facility] Start: 1961 Diabetic foot examination Diabetic Foot Exam [facility] Start: 1961 Hepatitis B screening Urine Albumin:Creatinine Ratio [facility] Start: 1956 Hemoglobin A1c measurement HbA1C [facility] Start: 1951 Hepatitis C screening HEPATITIS C VIRUS SCREENING [facility] Anaerobic Culture Anaerobic Culture [facility] Work Phone: Bacteria identified in Sputum by Culture [facility] Bacteria identified in Unspecified specimen by Anaerobe culture [facility] Work Phone: Bacteria identified in Urine by Culture URINE CULTURE Microbiology Routine Dysuria Ordered: 09/17/2024 [facility] Work Phone: Comment on above: Ordered: 09/17/2024 Bacteria identified in Urine by Culture BACTERIAL CULTURE, URINE Microbiology Routine Urinary urgency Ordered: 12/13/2024 [facility] Comment on above: Ordered: 12/13/2024 BLADDER SCAN BLADDER SCAN Pro cedures Routine BPH with obstruction/lower urinary tract symptoms Ordered: 03/29/2024 [facility] Work Phone: Comment on above: Ordered: 03/29/2024 Catheterization of l eft heart [facility] Cystourethroscopy CYSTO.PANENDO Procedures Routine BPH with obstruction/lower urinary tract symptoms Urine retention 1 Occurrences starting 06/21/2024 [facility] Work Phone: Comment on above: 1 Occurrences starting 06/21/2024 Ale post-voiding re sidual urine&/bladder cap NC ALE POST-VOIDING RESIDUAL URINE&/BLADDER CAP NC Charge Routine Urinary urgency Urinary frequency BPH with obstruction/lower urinary tract symptoms Erectile dysfunction due to arterial insufficiency Ordered: 04/17/2025 [facility] Comment on above: Ordered: 04/17/2025 Ale post-voiding re sidual urine&/bladder cap NC ALE POST-VOIDING RESIDUAL URINE&/BLADDER CAP NC Charge Routine Incomplete bladder emptying Ordered: 05/29/2025 [facility] Comment on above: Ordered: 05/29/2025 Microbial culture, routine Wound Culture [facility] Work Phone: NM Heart Views W str ess and W radionuclide IV [facility] Patient Education ED Anxiety Maribeth ction ED Chest Pain, Noncardiac [facility] Work Phone: Patient referral [facility] Work Phone: POST VOID RESIDUAL POST VOID RES IDUAL Procedures Routine BPH with obstruction/lower urinary tract symptoms Erectile dysfunction due to arterial insufficiency Ordered: 12/13/2024 [facility] Work Phone: Comment on above: Ordered: 12/13/2024 POST VOID RESIDUAL POST VOID RES IDUAL Procedures Routine BPH with obstruction/lower urinary tract symptoms Screening for genitourinary condition Ordered: 03/21/2025 [facility] Work Phone: Comment on above: Ordered: 03/21/2025 Simple cystometrogram NC SIMPLE CYSTOMETROGRAM NC Charge Routine Feeling of incomplete bladder emptying Ordered: 05/11/2025 [facility] Work Phone: Comment on above: Ordered: 05/11/2025 Immunizations Immunization Date Immunization Notes Care Provider Fa [facility] 10-09-2024 tetanus toxoid, redu timothy diphtheria toxoid, and acellular pertussis vaccine, adsorbed Dr. Maya Pradhan DO Work Phone: [facility] 06-29-2024 influenza virus vaccine, unspecified formulation Bryon Turner PA-C Work Phone: [facility] 06-24-2023 influenza virus vaccine, unspecified formulation Lamar Quinones EN[employer]S ENGINEER.[employer]ER Work Phone: [facility] 06-11-2022 influenza virus vaccine, unspecified formulation [facility] ENTER[employer]ISE SYSTEMS ENGINEER-BUTTON BRO[employer]ER [facility] 12-17-2021 SARS-CoV-2 (COVID-19 ) mRNA-1273 vaccine [facility] ENTER[employer]ISE SYSTEMS ENGINEER-BUTTON [employer] [facility] Comment on above: Result Comment: 2021: BOOSTER #2 07-29-2021 SARS-CoV-2 (COVID-19 ) mRNA-1273 vaccine [facility] ENTER[employer] SYSTEMS ENGINEER-BUTTON [employer] [facility] 12-05-2020 Covid (Moderna) Dr. Maya conklin Work Phone: [facility] 11-07-2020 Covid (Moderna) Dr. Maya conklin Work Phone: [facility] Comment on above: Result Comment: 2020: [id number] 06-14-[address] Maya Pradhan Work Phone: [facility] 06-18-[address] Maya Pradhan Work Phone: [facility] 06-14-2007 pneumococcal polysaccharide vaccine, 23 valent Gelacio Burgos ENTER[employer]ISE SYSTEMS ENGINEER.[employer]TON [employer]ER Work Phone: [facility] Payers Date Payer Category Payer Self-pay [id number] 2019 Medicare HUMANA MEDICARE HUMANA MEDICARE PPO [id number] 2019-Present [phone] [address] [address] [place] [address] PPO [id number] 2019 Medicare (Managed Care) [id number]. [id number] 2018 Private Health Insurance 2016 Private Health Insurance [id number] 1950 Unknown [id number] 1950 Unknown [id number] .717 1950 Unknown [id number] .717 1951 Unknown [id number] [id number] .717 1950 Unknown [id number] [id number] .356 1950 Unknown [id number] [id number] .356 1951 Unknown [id number] [id number] .356 1951 Unknown [id number] [id number] .627 1951 Unknown [id number] [id number] .627 1951 Unknown [id number] [id number] .627 1951 Unknown [id number] [id number] .983 1950 Unknown [id number] [id number] .983 1951 Unknown [id number] 2.16.840.1.051374.3.579.2 .983 1950 Unknown [id number] 2.16.840.1.947486.3.579.2 .983 1950 Unknown [id number] 2.16.840.1.434017.3.579.2 .983 1950 Unknown [id number] 2.16.840.1.773205.3.579.2 .983 1950 Unknown [id number] 2.16.840.1.418771.3.579.2 .983 Medicare [id number] Unknown [id number] 2.16.840.1.305153.3.579.2 .462 Unknown [id number] 2.16.840.1.701047.3.579.2 .462 Unknown [id number] 2.16.840.1.696236.3.579.2 .462 Unknown [id number] 2.16.840.1.147835.3.579.2 .462 Unknown [id number] 2.16.840.1.971711.3.579.2 .462 Unknown [id number] 2.16.840.1.767059.3.579.2 .462 Unknown [id number] 2.16.840.1.319416.3.579.2 .462 Unknown [id number] 2.16.840.1.545926.3.579.2 .462 Unknown [id number] 2.16.840.1.688862.3.579.2 .462 Unknown [id number] 2.16.840.1.849347.3.579.2 .462 Unknown [id number] 2.16.840.1.039919.3.579.2 .462 Unknown [id number] 2.16.840.1.030101.3.579.2 .462 Unknown [id number] 2.16.840.1.591059.3.579.2 .462 Unknown [id number] 2.16.840.1.560292.3.579.2 .462 Unknown [id number] 2.16.840.1.617165.3.579.2 .462 Unknown [id number] 2.16.840.1.804603.3.579.2 .462 Unknown [id number] 2.16.840.1.568012.3.579.2 .462 Unknown [id number] 2.16.840.1.003755.3.579.2 .462 Unknown [id number] 2.16840.1.113022.3.579.2 .462 Unknown [id number] 2.16.840.1.041871.3.579.2 .462 Unknown [id number] 2.16840.1.000702.3.579.2 .462 Unknown [id number] 2.16840.1.887310.3.579.2 .462 Social History Date Type Detail Facility Start: 12-06-2021 End: 01-20-2024 Tobacco smoking status RIIS Unknown if ever smoked [facility] Start: 02-04-2021 None [facility] Start: 04-29-2019 With Family [facility] Start: 02-04-2021 Chew [facility] Start: 1950 Sex Assigned At Male [facility] Start: 08-28-2020 End: 11-07-2024 Tobacco smoking status Never smoked tobacco (finding) [facility] Sex Assigned At Sex [facility] Start: 02-09-2013 End: 05-08-2022 Tobacco use and exposure Former smokeless tobacco user [facility] End: 01-10-2013 History of tobacco use Chews Tobacco [facility] Start: 10-17-2023 End: 05-29-2025 Alcohol intake Current non-drinker of alcohol (finding) [facility] Start: 10-17-2023 End: 05-29-2025 History of Social function [facility] Start: 10-17-2023 End: 05-29-2025 Tobacco use panel [facility] National Score (1-100), lower number is lower risk Not on file [facility] Start: 1950 Sex Assigned At Not on file [facility] Start: 02-02-2024 Tobacco smoking status Ex-smoker (finding) [facility] Start: 12-13-2024 End: 03-21-2025 Alcoholic beverage intake Ex-drinker (finding) [facility] Start: 12-31-2012 Sex Male (finding) [facility] NEGATED: Highlighted rowStart: NINF History of tobacco use Passive smoker [facility] Medical Equipment Procedure Code Equipment Code Equipment Origin al Text Equipment Identifier Dates Accu-Chek Lindsay Plus test strips, See Instructions, TID, 0 Refill(s) Start: 08-28-2020 Accu-Chek Lindsay Plus test strips, See Instructions, TID, 0 Refill(s) Start: 08-28-2020 Accu-Chek Lindsay Plus test strips, See Instructions, TID, 0 Refill(s) Start: 08-28-2020 [id number] Start: 03-15-2022 Accu-Chek Lindsay Plus test strips, See Instructions, TID, 0 Refill(s) Start: 08-28-2020 Accu-Chek Lindsay Plus test strips, See Instructions, TID, 0 Refill(s) Start: 08-28-2020 Drug-eluting coronary artery stent, lvh-xkwnsllsoxmxp-ga lymer-coated [id number] FDA Start: 01-26-2024 Goals Date Patient Goal Desired Activity /State Functional Status Date Assessment Result Facility 07-28-2023 Functional status Chair [facility] Work Phone: Mental Status Date Assessment Result Facility 11-07-2024 Cognitive function Voice/Name [facility] Work Phone: 07-28-2023 Cognitive function Voice/Name;To uch/Shaking;L ight Pain;Deep Pain [facility] Work Phone: Clinical Notes 06-21-2018 to 07-13-2025 Jeremías Fajardo MD - 05/29/2025 11:00 AM Renetta Huynh - 05/29/2025 11:00 AM Sylvie Fajardo MD - 05/19/2025 9:00 AM EDTAlcidesrickey RichterLino - 05/19/2025 9:00 AM EDT Note Date & Type Note Facility 07-13-2025 Note HNO ID: [id number] Author: JOSE INMAN MD Service: ? Author [...] kg/m? Physical Exam Exam conducted with a egg separator present (Jorge Herndon CNP present for exam). 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 Refill - CLOTRIMAZOLE 1 % TOPICAL CREAM Discussed importance of maintaining sugar control and dry area to reduce incidence of jock itch. Jose Inman MD Differential Diagnoses - Tinea cruris - Psoriasis Procedures [facility] 05-29-2025 History of Present illness Narrative [...] drawn today. Patient will speak to his veterinary dentist and call office to schedule. He may [...] Anesthetics, Amide Benadryl [Diphenhydramine Hcl] Biaxin [Clarithromycin] Avtucwys-Vyynuvtval-Utqmeqrtud Hyoscyamine Sulfate Lidocaine renuka Naprosyn [Naproxen] Penicillins [...] time. PVR: 266 documented in this encounter [facility] 05-19-2025 History of Present illness Narrative Associated [...] was obtained. Does this procedure require a Fackler Protocol? Yes. Fackler Protocol is required. Urine was collected for [...] LEUKOCYTE neg 05/19/2025 documented in this encounter [facility] 05-11-2025 History of Present illness Narrative Patient presents for EasyPro1 due to voiding dysfunction. Denies pain, discomfort at this time. Capacity: 450 ml Compliance (50% capacity): >100 ml/cmH2O Peak Pressure (void): 3 cmH2O Patient tolerated procedure well without complication. Patient comes in today for Urocuff PVR was 9. Desire to void was 8 documented in this encounter [facility] 05-03-2025 Evaluation note Diagnosis Onset Date Resolution (HFpEF) heart failure with preserved ejection fraction chronic May 03 8:47am 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 disease chronic A ugust 2024 8:47am Dyslipidemia chronic May 03, 2025 8:47am Hypertension chronic May 03, 2025 8:47am [employer] Work Phone: 1(780) 249-404208-04-2025 History of Present illness Narrative* Jia Lee, ENTERPRISE SYSTEMS ENGINEER-BUTTON BROACHER - 04/17/2025 9:00 AM EDT Chief Complaint Patient presents with New Patient ED/INCONTINENCE HPI: 74 y.o. male presenting as a new patient to establish urological care. Patient was seeing Dr. Sidhu of [facility]; most recent visit 03/21/25. Patient reports [...] was 10. He has been referred to casing in line feeder. He denies constipation. Typical daily fluid intake coffee (5-6 cups), water (2 bottles), and milk. Fractured back in April 2024. Patient reports difficulty attaining erections. This started in 2016 after [place]. Risk factors for ED include CAD, diabetes, [...] Anesthetics, Amide Benadryl [Diphenhydramine Hcl] Biaxin [Clarithromycin] Gjffrgyc-Douvepfsme-Neaonlorle Hyoscyamine Sulfate Lidocaine renuka Naprosyn [Naproxen] Penicillins [...] 04/17/2025 LEUKOCYTE neg 04/17/2025 [facility] NoteHNO ID: [id number] Author: BROYN TURNER PA-C Service: ? Author Type: Physician Police Guard Type: Progress Notes Filed: 03/21/2025 10:06 Note Text: [facility] PATIENT CLINIC NOTE (M) Some elements copied from his previous note, which have been updated where appropriate, and all reflect current medical decision making from date of this visit. Note was generated by [employer] and edited as appropriate SERVICE DATE: [...] (FLONASE) 50 mcg/actuation nasal spray Use 1 [place] in each nostril once daily. econazole 1 [...] (ASTELIN, ASTEPRO) 0.1% nasal spray Use 1 [place] in the nose two times a day. [...] metoprolol succinate XL (TOP (more content not included)...[facility]07-08-2025 History of Present illness Narrative* Bryon Turner PA-C - 03/21/2025 9:44 AM EDT Images from the original note were not included. [facility] PATIENT CLINIC NOTE (M) Some elements copied from his previous note, which have been updated where appropriate, and all reflect current medical decision making from date of this visit. Note was generated by [employer] and edited as appropriate SERVICE DATE: [...] (FLONASE) 50 mcg/actuation nasal spray Use 1 [place] in each nostril once daily. econazole 1 [...] (ASTELIN, ASTEPRO) 0.1% nasal spray Use 1 [place] in the nose two times a day. [...] twice daily; refilled prescription to be sent [facility] pharmacy in June. Discussed potential for prostate tissue removal if symptoms worsen. Monitor urinary symptoms and follow-up if necessary. 3. Type 2 diabetes mellitus with hyperglycemia, unspecified whether terminal carman insulin use (HCC) (E11.65) - Hyperglycemia contributing [...] Plan: Appointment with Bryon. [facility] NoteHNO ID: [id number] Author: GINETTE SANCHEZ LPN Service: ? Author [...] tolerated the procedure well. Plan: Appointment with Bryon.[facility]05-14-2025 NoteHNO ID: [id number] Author: ROCHELLE BRANCH PA-C Service: ? Author Type: Physician Police Guard Type: Progress Notes Filed: 01/25/2025 19:18 Note Text: This note was created using Behavioral Recognition Systemsriter. Subjective Blanca Gill is a 74 year [...] Diagnostic procedures: low Management options: low [facility] History of Present illness Narrative* Rochelle Branch PA-C - 01/25/2025 7:12 PM EDT This note was created using Behavioral Recognition Systemsriter. Subjective Blanca Gill is a 74 year [...] low Rochelle Branch PA-C documented in this encounterDay[facility] Instructions* Patient Instructions* Marisa Blanco APRN.CNP - 12/31/2024 1:17 PM EDT - Treat with clotrimazole twice a day until rash resolves and then another week - Keep area of concern very dry. Ok to use OTC antifungal powder if area is moist - Follow up with PCP if symptoms persist or do not improved after 4-6 weeks of treatment. documented in this encounterDayton [facility]04-19-2025 NoteHNO ID: [id number] Author: MARISA BLANCO APRN.BENJAMIN Service: ? Author [...] visit. Physical Exam Exam conducted with a egg separator present. Constitutional: General: He is not in [...] detail warranting prompt ER evaluation. Marisa Blanco APRN.[facility] History of Present illness Narrative* Marisa Blanco APRN.BUTTON BROACHER - 12/31/2024 1:00 PM EDT Images from [...] visit. Physical Exam Exam conducted with a egg separator present. Constitutional: General: He is not in [...] indetail warranting prompt ER evaluation. Marisa Blanco APRN.BUTTON BROACHER documented in this encounterDayton [facility]04-09-2025 NoteHNO ID: [id number] Author: SALLY HERNDON APRN.BUTTON BROACHER Service: ? Author Type: Nurse Practitioner Type: [...] symptoms (LUTS) Intrinsic asthma with status asthmaticus ([facility]) Irritable bowel syndrome OAB (overactive bladder) Pure [...] (FLONASE) 50 mcg/actuation nasal spray Use 1 [place] in each nostril once daily. mometasone-formoterol (DULERA) [...] (ASTELIN, ASTEPRO) 0.1% nasal spray Use 1 [place] in the nose two times a day. [...] Alzheimer's Disease Mother Diabete (more content not included)...[facility]04-09-2025 History of Present illness Narrative* Sally Herndon APRN.BUTTON BROACHER - 12/21/2024 12:57 PM EDT Images from [...] (FLONASE) 50 mcg/actuation nasal spray Use 1 [place] in each nostril once daily. mometasone-formoterol (DULERA) [...] (ASTELIN, ASTEPRO) 0.1% nasal spray Use 1 [place] in the nose two times a day. [...] patient was discharged. Procedures documented in this encounterDayton [facility]04-[facility]-2025 Telephone encounter Note * Telephone Encounter - iGnette Sanchez LPN - 12/20/2024 8:15 AM EDT Called patient. Verified name and date of . Patient informed of results. Verbalizes understanding. Ginette Sanchez LPN [facility]04-08-2025 Miscellaneous Notes* Telephone Encounter - Ginette Sanchez LPN - 12/20/2024 8:15 AM EDT Called patient. Verified name and date of . Patient informed of results. Verbalizes understanding. Ginette Sanchez LPN documented in this encounterDayton [facility]04-01-2025 NoteHNO ID: [id number] Author: BRYON TURNER PA-C Service: ? Author Type: Physician Police Guard Type: Progress Notes Filed: 12/13/2024 18:59 Note Text: [facility] EST PATIENT CLINIC NOTE (M) Some elements [...] (FLONASE) 50 mcg/actuation nasal spray Use 1 [place] in each nostril once daily. mometasone-formoterol (DULERA) [...] (ASTELIN, ASTEPRO) 0.1% nasal spray Use 1 [place] in the nose two times a day. [...] mg by mouth on (more content not included)...[facility]04-01-2025 History of Present illness Narrative* Bryon Turner PA-C - 12/13/2024 9:40 AM EDT Images from the original note were not included. [facility] EST PATIENT CLINIC NOTE [...] (FLONASE) 50 mcg/actuation nasal spray Use 1 [place] in each nostril once daily. mometasone-formoterol (DULERA) [...] (ASTELIN, ASTEPRO) 0.1% nasal spray Use 1 [place] in the nose two times a day. [...] Plan: Appointment with Bryon. documented in this encounterDayton [facility]04-01-2025 NoteHNO ID: [id number] Author: GINETTE SANCHEZ LPN Service: ? Author [...] tolerated the procedure well. Plan: Appointment with Bryon.[facility]03-21-2025 Telephone encounter Note* Telephone Encounter - Alanna Vital - 12/02/2024 10:56 AM EDT S[poke with patient and authorization/referral does not appear to be required for his visit. Patient stated that we should be getting a referral faxed to us just in case. Alanna Vital [facility]03-21-2025 Miscellaneous Notes* Telephone Encounter - Alanna [...] speak with nurse. Patient was referred to [facility] by Lamar Quinones CNP. Patient is wanting to discuss how the providers treat for ED prior to scheduling consultation. Please contact patient at ph. [phone]. documented in this encounterDayton [facility] Hospital03-21-2025 Telephone encounter Note * Telephone Encounter - Ginette Sanchez LPN - 12/02/2024 10:40 AM EDT Called patient. Verified name and date of . Answered questions regarding appointment. Scheduled with provider. Patient is asking to have appointment reviewed to verify that referral is not needed. Patient is currently seeing Lamar Quinones CNP for BPH/PSA. Ginette Sanchez LPN [facility]03-21-2025 Telephone encounter Note* Telephone Encounter - Susanna Sun MA - 12/02/2024 8:52 AM EDT Patient returned call. No message to pass along to the patient. Staff not available to speak with patient. Please call patient back. [facility]03-21-2025 Telephone encounter Note* Telephone Encounter - Ginette Sanchez LPN - 12/02/2024 8:31 AM EDT Called patient. No answer- left message to call clinic to discuss. Ginette Sanchez LPN [facility]03-18-2025 Telephone encounter Note* Telephone Encounter - Margarita Jimenez RN - 11/29/2024 10:29 AM EDT Patient calling in for an appointment with Urology. States that he was referred to [facility] for ED as his previous provider in [place] does not treat for that. Patient states [...] may need to be seen either at [facility] orth ED if he is having these symptoms, especially since he does not currently have an upcomming urology appointment. Patient does not want to go to [facility] if they can not place a [...] patient had called to schedule appointment with [facility] for referral for ED, they offered him March and he declined. No current appointment scheduled. Informed patient that It wouldbe best to get him on the schedule to see Urology and we can place him on a waitlist. Patient agreeable. Transferred to scheduling. [facility]03-18-2025 Miscellaneous Notes* Telephone Encounter - Margarita Jimenez RN - 11/29/2024 10:29 AM EDT Patient calling in for an appointment with Urology. States that he was referred to [facility] for ED as his previous provider in [place] does not treat for that. Patient states [...] patient had called to schedule appointment with [facility] for referral for ED, they offered him March and he declined. No current appointment scheduled. Informed patient that It wouldbe best to get him on the schedule to see Urology and we can place him on a waitlist. Patient agreeable. Transferred to scheduling. documented in this encounterDayton [facility] Hospital03-17-2025 Telephone encounter Note * Telephone Encounter - hRiannon Bynum - 11/28/2024 3:46 PM EDT Patient called to request to speak with nurse. Patient was referred to [facility] by Lamar Quinones CNP. Patient is wanting to discuss how the providers treat for ED prior to scheduling consultation. Please contact patient at ph. [phone]. [facility]02-21-[facility] Evaluation note* Diagnosis Onset Date Resolution Status Admit Date Lymphedema acute November 04, 2024 1:47pm Wound of left lower extremity acute November 04, 2024 1:47pm Lower extremity edema chronic Oct 1:47pm [facility] Work Phone: 1(947) 256-458901-22-2025 Telephone encounter Note* Telephone Encounter - Anila Corrales LPN - 10/05/2024 2:51 PM EST Just an FYI patient called to schedule with urology but did tell me he used to see a Dr. Cedeno in [place] for Erectile dysfunction. He also has been having trouble with dry skin/bleeding under his foreskin (uncircumcised) which he will discuss when he is seen as well. Anila Corrales LPN [facility]01-22-2025 Miscellaneous Notes* Telephone Encounter - Anila Corrales LPN - 10/05/2024 2:51 PM EST Just an FYI patient called to schedule with urology but did tell me he used to see a Dr. Cedeno in [place] for Erectile dysfunction. He also has been having trouble with dry skin/bleeding under his foreskin (uncircumcised) which he will discuss when he is seen as well. Anila Corrales LPN documented in this encounterDayton Children'S Hospital01-18-2025 Instructions* Patient Instructions* Ria Branch APRN.BENJAMIN [...] need to be present also as a egg separator/witness. He declined. 2. Skin erythema - ICD9: 695.9, ICD10: L53.9 - slight erythema on groin skin fold. He is advised to use econazole cream in this area. - Follow-up with your urologist for further concerns. Ria Branch APRN.BUTTON BROACHER documented in this encounterDayton Children'S Hospital01-18-2025 NoteHNO ID: [id number] Author: RIA BRANCH APRN.BENJAMIN Service: ? Author [...] (FLONASE) 50 mcg/actuation nasal spray Use 1 [place] in each nostril once daily. econazole 1 [...] (ASTELIN, ASTEPRO) 0.1% nasal spray Use 1 [place] in the nose two times a day. [...] Hypertension Mother No [place] (more content not included)...[facility]01-18-2025 History of Present illness Narrative* Ria Branch APRN.BUTTON BROACHER - 10/01/2024 3:30 PM EST Images from [...] (FLONASE) 50 mcg/actuation nasal spray Use 1 [place] in each nostril once daily. econazole 1 [...] (ASTELIN, ASTEPRO) 0.1% nasal spray Use 1 [place] in the nose two times a day. [...] nursing note reviewed. Exam conducted with a egg separator present. Constitutional: Appearance: Normal appearance. Genitourinary: Comments: [...] need to be present also as a egg separator/witness. He declined. 2. Skin erythema - ICD9: 695.9, ICD10: L53.9 - slight erythema on groin skin fold. He is advised to use econazole cream in this area. - Follow-up with your urologist for further concerns. Ria Branch APRN.BUTTON BROACHER documented in this encounterDayton Children'S Hospital01-18-2025 Telephone encounter Note * Telephone Encounter [...] ER. He has been seen at the [facility] several times and wants to go there. Told himthey may not be able to do catheterization there and will send him to ER. He plans to call [facility] on Thursday and make an appointment. [...] is still healing and was treated in [facility] on 09/17/24 and 09/25/24. Protocols used: Urinary Ujjdrayd-UQKLD-LC [facility]01-18-2025 Miscellaneous Notes* Telephone Encounter - Margaret [...] ER. He has been seen at the [facility] several times and wants to go there. Told himthey may not be able to do catheterization there and will send him to ER. He plans to call [facility] on Thursday and make an appointment. [...] is still healing and was treated in [facility] on 09/17/24 and 09/25/24. Protocols used: Urinary Jcvklqjq-COKQQ-UK documented in this encounterDayton Children'S Hospital01-15-2025 Telephone encounter Note * Telephone Encounter - Kaylen Woodall MA - 09/28/2024 11:02 AM EST Patient given results and verbalized understanding of instructions given. Kaylen Woodall MA [facility]01-15-2025 Miscellaneous Notes* Telephone Encounter - Kaylen [...] water while taking clindamycin. documented in this encounterDayton Children'S Hospital01-15-2025 Telephone encounter Note * Telephone Encounter [...] should drink plenty water while taking clindamycin. [facility]01-12-2025 NoteHNO ID: [id number] Author: KODI VUONG APRN.CNP Service: ? Author Type: Nurse Practitioner Type: Progress Notes Filed: 09/25/2024 11:02 Note Text: This note was created using Behavioral Recognition Systemsriter. Subjective Blanca Gill is a 74 year [...] any new or worsening concerns. Kodi Vuong APRN.[facility]INTr[facility]01-[facility] History of Present illness Narrative* Kodi Vuong APRN.BENJAMIN - 09/25/2024 10:51 AM EST This note was created using Behavioral Recognition Systemsriter. Subjective Blanca Gill is a 74 year [...] concerns. Kodi Vuong APRN.CNP documented [place] encounterKelly [place] [address]-07-2025 Telephone encounter Note * Telephone Encounter - Anila Banereje APRN.CNP - 09/20/2024 1:47 PM EST Wound culture returns + Doxycyline provided to patient after reviewing history of allergies Patient verbalized understanding Instructed to follow up with PCP next week. [facility]01-07-[facility] Miscellaneous Notes* Telephone Encounter - Anila Banerjee APRN.CNP - 09/20/2024 1:47 PM EST Wound culture returns + Doxycyline provided to patient after reviewing history of allergies Patient verbalized understanding Instructed to follow up with PCP next week. documented in this encounterDayton Children'S Hospital01-05-2025 Telephone encounter Note * Telephone Encounter - Kaylen Woodall MA - 09/18/2024 3:39 PM EST Patient given results and verbalized understanding of instructions given. Kaylen Woodall MA [facility]01-05-2025 Miscellaneous Notes* Telephone Encounter - Kaylen Woodall MA - 09/18/2024 3:39 PM EST Patient given results and verbalized understanding of instructions given. Kaylen Woodall MA * Telephone Encounter - Kaylen Woodall MA - 09/18/2024 3:38 PM EST ----- Message from Ria Branch APRN.CNP sent at 09/18/2024 1:26 PM EST ----- Please advise patient the urine culture was negative. documented in this encounterDayton Children'S Hospital01-05-2025 Telephone encounter Note * Telephone Encounter - Kaylen Woodall MA - 09/18/2024 3:38 PM EST ----- Message from Ria Branch APRN.BUTTON BROACHER sent at 09/18/2024 1:26 PM EST ----- Please advise patient the urine culture was negative. [facility] [facility] NoteHNO ID: [id number] Author: KAMI YOUNGER APRN.BUTTON BROACHER Service: ? Author Type: Nurse Practitioner Type: [...] (FLONASE) 50 mcg/actuation nasal spray Use 1 [place] in each nostril once daily. mometasone-formoterol (DULERA) [...] (ASTELIN, ASTEPRO) 0.1% nasal spray Use 1 [place] in the nose two times a day. [...] culture. Extraocular Movements: Extraocul (more content not included)...[facility]01-04-2025 History of Present illness Narrative* Kami Younger APRN.[facility] - 09/17/2024 12:03 PM EST Subjective [...] (FLONASE) 50 mcg/actuation nasal spray Use 1 [place] in each nostril once daily. mometasone-formoterol (DULERA) [...] (ASTELIN, ASTEPRO) 0.1% nasal spray Use 1 [place] in the nose two times a day. [...] develop Kami Younger APRN.BENJAMIN documented in [facility] encounterDay[facility]01-[facility] Telephone encounter Note * Telephone Encounter [...] dermatology in 3 weeks. Ritu Law RN [facility]01-04-2025 Miscellaneous Notes* Telephone Encounter - Ritu [...] calling: self Call patient at: at home [phone] (home) [phone] (cell) Was an appointment scheduled: No Closing statement: Symptom Call: Thank you for calling [facility], your call is very important. A nurse will call in approximately 2-4 hours during business hours. If this is an emergency, please contact 911. Kami Mccord documented in this encounterDayton [facility] Hospital01-04-2025 Telephone encounter Note * Telephone Encounter [...] calling: self Call patient at: at home [phone] (home) [phone] (cell) Was an appointment scheduled: No Closing statement: Symptom Call: Thank you for calling [facility], your call is very important. A nurse will call in approximately 2-4 hours during business hours. If this is an emergency, please contact 911. Kami Mccord [facility]12-31-2024 Telephone encounter Note* Telephone Encounter - Carlos Eduardo Matias RN - 09/13/2024 1:50 PM EST Called patient and answered questions. Patient states he does not feel poorly nor have any signs ofinfection. Patient is taking a cortisol cream for itching. He has an appointment on and will have his primary care physician look to make sure that it is ok. [facility]12-31-2024 Miscellaneous Notes* Telephone Encounter - Carlos [...] advice please. Thank you. documented in this encounterDayton Children'[facility] Hospital12-31-2024 Telephone encounter Note * Telephone Encounter - Cristiana Newman - 09/13/2024 11:56 AM EST Patient is using the cream provided for his foreskin but it has flared up and he has new bleeding under the foreskin and needs to speak to a nurse today for advice please. Thank you. [facility]11-05-2024 Instructions* Patient Instructions* Kodi Vuong APRN.BENJAMIN [...] to use the powder. documented in this encounterDayton Children'[facility] Hospital11-05-2024 NoteHNO ID: [id number] Author: KODI VUONG APRN.BENJAMIN Service: ? Author Type: Nurse Practitioner Type: Progress Notes Filed: 07/19/2024 07:40 Note Text: This note was created using Behavioral Recognition Systemsriter. Subjective Blanca Gill is a 73 year [...] and then it would return. Kodi Vuong [facility] History of Present illness Narrative* Kodi Vuong APRN.[facility] - 07/19/2024 7:28 AM EST This note was created using Behavioral Recognition Systemsriter. Subjective Blanca Gill is a 73 year [...] return. Kodi Vuong APRN.BENJAMIN documented in this encounterDayton [facility] Hospital10-31-2024 Procedure note* Carlos Eduardo Sidhu MD - 07/14/2024 9:10 AM EDT CYSTOSCOPY PROCEDURE NOTE : Blanca Gill is a 73 year old male who presents with BPH for cystoscopy. PRE-OP/PRE-PROCEDURE DIAGNOSIS: bpH and lower urinary tract symptoms POST-OP/POST-PROCEDURE DIAGNOSIS: Same SURGERY/PROCEDURE(S): Cystoscopy Pt ID verified with patient: Yes Procedure verified with patient: Yes Procedure confirmed with physician and service support representative: Yes UNIVERSAL PROTOCOL / SAFETY CHECKLIST Procedure [...] meaning may be extrapolated by contextual derivation. [facility]10-31-2024 Procedure note* Carlos Eduardo Sidhu MD - 07/14/2024 9:10 AM EDT CYSTOSCOPY PROCEDURE NOTE : Blanca Gill is a 73 year old male who presents with BPH for cystoscopy. PRE-OP/PRE-PROCEDURE DIAGNOSIS: bpH and lower urinary tract symptoms POST-OP/POST-PROCEDURE DIAGNOSIS: Same SURGERY/PROCEDURE(S): Cystoscopy Pt ID verified with patient: Yes Procedure verified with patient: Yes Procedure confirmed with physician and service support representative: Yes UNIVERSAL PROTOCOL / SAFETY CHECKLIST Procedure [...] extrapolated by contextual derivation. documented in this encounterDayton Children'S Hospital10-08-2024 Instructions* Patient Instructions* Lamar Quinones, SINDHU.[facility] - 06/21/2024 10:01 AM EDT Images [...] patient s medical history, current prescription and wgha-qxi-bfetqda medications, and allergies to medications, including anesthetics. [...] her bladder before the procedure begins. The wxdq-dz-ksvj process may be similar to this: The [...] urethral opening to relieve discomfort Take an ozfb-eag-exngows pain medicine If necessary, the urologist may [...] urine Fever Severe discomfort References: NIH: National [place] of Diabetes and Digestive and Kidney Diseases. Cystoscopy and Ureteroscopy Accessed 03/12/2017. Evens Barakat, Blake Jacinto, Zoya Grande, Tracey MASON. The History of Cystoscopy in Urology, Internet Journal of Urology. 14,1 (2015) Five-Thirty[employer] Accessed 03/12/2017. Urology Care [facility]. What is Cystoscopy? Accessed 03/12/2017. Copyright 7261-3234 The [facility] All rights reserved. documented in this encounterDayton Children'S Hospital10-08-2024 Nurse Note* Sonja Bautista MA - 06/21/2024 9:34 AM EDT Post void bladder scan completed. 248 ml residual remaining. Results reported to Lamar Quinones CNP [facility]10-08-2024 Nurse Note* Sonja Bautista MA - 06/21/2024 9:34 AM EDT Post void bladder scan completed. 248 ml residual remaining. Results reported to Lamar Quinones CNP documented in this encounterDayton Children'S Hospital10-08-2024 History of Present illness Narrative* Lamar [...] flomax 0.4 mg po daily Admitted to [facility] and he feels that his LUTS have [...] (FLONASE) 50 mcg/actuation nasal spray Use 1 [place] in each nostril once daily. mometasone-formoterol (DULERA) [...] (ASTELIN, ASTEPRO) 0.1% nasal spray Use 1 [place] in the nose twice daily. Use in [...] follow up for cystoscopy . Lamar Quinones APRN.BUTTON BROACHER documented in this encounterDayton Children'S Hospital10-02-2024 Telephone encounter Note * Telephone Encounter - Carlos Eduardo Matias RN - 06/15/2024 1:16 PM EDT Called patient and informed him the urine test was all that we would need prior to his appointment and that it was still in process. [facility]10-02-2024 Miscellaneous Notes* Telephone Encounter - Carlos [...] orders. Thank you, Samantha documented in this encounterDayton Children'S Hospital10-02-2024 Telephone encounter Note * Telephone Encounter [...] see any other orders. Thank you, Samantha [facility]09-27-2024 Telephone encounter Note* Telephone Encounter - [...] be evaluated. Patient agreeable with plan. Closing. [facility]09-27-2024 Miscellaneous Notes* Telephone Encounter - Ping [...] hospital. Please advise, thanks. documented in this encounterDayton Children'S Hospital09-27-2024 Telephone encounter Note * Telephone Encounter - Hui Myers - 06/10/2024 10:45 AM EDT Patient called and has some questions with a problem that he has been having since he has been discharged form the hospital. Please advise, thanks. [facility]07-16-2024 History of Present illness Narrative* Lamar Quinones, SINDHU.[facility] - 03/29/2024 8:09 AM EDT Blanca Gill [...] He was seen by a urologist in [place] and started on ICI, he was unable [...] (FLONASE) 50 mcg/actuation nasal spray Use 1 [place] in each nostril once daily. ALPRAZolam 0.25 mg ORAL tablet Take 0.25 mg by mouth at bedtime as needed. busPIRone (BUSPAR) 10 mg tablet Take 10 mg by mouth four times daily as needed. pramipexole (MIRAPEX) 1 mg tablet Take 1 mg by mouth twice daily. ALBUTEROL SULFATE (PROVENTIL HFA INHALATION) Inhale as instructed. azelastine (ASTELIN, ASTEPRO) 0.1% nasal spray Use 1 [place] in the nose twice daily. Use in [...] a follow up as needed. Lamar Quinones APRN.BUTTON BROACHER documented in this encounterDayton Children'S Hospital07-16-2024 Nurse Note* Danielle Curry LPN - 03/29/2024 8:01 AM EDT Bladder scan obtained 0 ml of urine [facility]07-16-2024 Nurse Note* Danielle Curry LPN - 03/29/2024 8:01 AM EDT Bladder scan obtained 0 ml of urine documented in this encounterDayton Children'S Hospital02-03-2024 History of Present illness Narrative* Gelacio Burgos APRN.[facility] - 10/17/2023 9:22 AM EST Subjective HPI [...] (ASTELIN, ASTEPRO) 0.1% nasal spray Use 1 [place] in the nose twice daily. Use in [...] (FLONASE) 50 mcg/actuation nasal spray Use 1 [place] in each nostril once daily. mometasone-formoterol (DULERA) [...] of care. This note was generated using Profusa software. It may contain errors in wording, punctuation, or spelling. Gelacio Burgos APRN.BUTTON BROACHER documented in this encounterDayton Children'S Hospital01-17-2024 History and physical note Author Chema Payan [facility] September 30, 2023 8:11am Note Date/Time September 30, 2023 8 :11am [facility] Medical Records Department [address] [place] [address] History & Physical Exam 09/30/23 0809 MR#: [id number] Acct: [id number] Name: BLANCA GILL Rep #:[id number] : 1950 73 From: Chema Payan MD PCP: Dr. Maya Pradhan, DO [place] [facility] [place] HPI - General HPI Narrative BLANCA GILL, is a 73 M who presents bilateral leg edema with weeping wounds bilateral. Leg edema continues to improve with no further weeping. [facility] Medical History Abnormal nuclear stress test Anxiety Asthma Atherosclerotic heart disease of [place] coronary artery without angina pectoris Carotid bruit [...] MD; Dr. Maya Pradhan DO~ Signed [facility] Work Phone: 1(959) 185-272401-17-2024 Procedure [facility] 07-28-2023 Consult note Author Dandy Miamigideon [facility] July 28, 2023 11:29am Note Date/Time July 28, 2023 11:29am [facility] Medical Records Department [address] [place] [address] Counseling Note - Pharmacy 07/28/23 1128 MR#: [id number] Acct: [id number] Name: BLANCA GILL Rep #:[id number] : 1950 72 From: Dandy Serrano PCP: Dr. Maya Pradhan DO Status:ADM IN Y [facility] Service has performed discharge medication reconciliation [...] was counselled on new medications by pharmacy scheduler Alex. Medications at Discharge Home Medications metformin [...] (if applicable): Date CC: ~ Signed [facility] Work Phone: 1(118) 442-906211-14-2023 Discharge summary Author Chema Zambrano [facility] July 28, 2023 10:49am Note Date/Time July 28, 2023 10:48am [facility] Medical Records Department [address] [place] [address] Discharge Summary 07/28/23 1047 MR#: [id number] Acct: [id number] Name: BLANCA GILL Rep #:[id number] : 1950 72 From: Chema Zambrano DO PCP: Dr. Maya Pradhan DO Status:ADM IN Location: [facility] [id number] Providers Date of Admission: 07/22/23 Primary Care Physician: Dr. 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/log getter Routine Comment: Reason for Consult:: Nonhealing right [...] follow-up in wound clinic in [address] Goyo Katz's. Continue abx through the [...] complication status: with unspecified complications Diabetes mellitus terminal carman insulin use: with terminal carman use Qualified Code(s): E11.8 - Type 2 diabetes mellitus with unspecified complications; Z79.4 - intermediate frame tender (current) use of insulin; Z79.4 - intermediate frame tender (current) use of insulin; Z79.4- intermediate frame tender (current) use of insulin; Z79.4 - intermediate frame tender (current) use of insulin Plan Chronic conditions: [...] GFR (MDRD) Non-Af 92, BUN/Creatinine Ratio 16.1, [id number] H, Calcium 8.5 07/28/23 08:07: POC Glucose [...] Additional Instructions / Restrictions: Discussed with the [facility] pharmacist. Maximum lispro insulin as per sliding [...] in before D/C Order can be placed): [facility]pc Facility Charges/Coding Visit Charges Inpatient E&M: 44594 Disch Hosp >30min 07/28/23 1049 <Electronically signed by Cheam Zambrano DO> Cosigner Signature (if applicable): CC: Dr. Chema Zambrano DO; Dr. Maya Pradhan DO~ Signed [facility] Work Phone: 1(512) 407-757511-14-2023 Discharge summary Author Chema Zambrano [facility] July 28, 2023 10:47am Note Date/Time July 28, 2023 10:46am [facility] Medical Records Department [address] [place] [address] Transfer to [facility] MR#: [id number] Acct: [id number] Name: BLANCA GILL Rep #:[id number] : 1950 72 From: Chema Zambrano DO PCP: Dr. Maya Pradhan DO Status:ADM IN Certification of patient admission REQUIRED AT TIME OF ADMISSION. I CERTIFY THAT POST-HOSPITAL F SERVICES ARE REQUIRED TO BE GIVEN ON AN IN-PATIENT BASIS BECAUSE OF THE ABOVE NAMED PATIENT'S NEED FOR PENITENTIARY CARE ON A CONTINUING BASIS FOR THE CONDITION(S) FOR WHICH HE/SHE WAS RECEIVING IN-PATIENT HOSPITAL SERVICES PRIOR TO HIS/HER TRANSFER TO THE [facility]. 07/28/23 1047<Electronically signed by Chema Zambrano [...] follow-up in wound clinic in [address] Goyo Gallegoss. Continue abx through the [...] Additional Instructions / Restrictions: Discussed with the [facility] pharmacist. Maximum lispro insulin as per sliding [...] in before D/C Order can be placed): [facility] Facility (3) Diabetes mellitus, type 2 Qualifiers: Diabetes mellitus complication status: with unspecified complications Diabetes mellitus terminal carman insulin use: with terminal carman use Qualified Code(s): E11.8 - Type 2 diabetes mellitus with unspecified complications; Z79.4 - intermediate frame tender (current) use of insulin; Z79.4 - MCC (current) use of insulin; Z79.4- MCC (current) use of insulin; Z79.4 - intermediate frame tender (current) use of insulin 07/28/23 1047 <Electronically signed by Chema Zambrano DO> Cosigner Signature (if applicable): CC: Dr. Emmett Patten DO; Dr. Maya Pradhan DO; Dr. Stewart Dukes MD; Dr. Alfonso Jade MD ~ [facility] Work Phone: 1(723) 230-479611-14-2023 Progress note Author Chema Zambrano [facility] July 28, 2023 10:44am Note Date/Time July 28, 2023 8:26am [facility] Medical Records Department [address] [place] [address] Progress Note - Hospitalist 07/28/23822 MR#: [id number] Acct: [id number] Name: MALIERNESTOBLANCA Celso Rep #:[id number] : 1950 72 From: Chema Zambrano DO PCP: Dr. Maya Pradhan DO Status:ADM IN Location: [place] [address] Reason for Visit Reason for Visit: Diagnoses Type 2 diabetes mellitus with unspecified complications (07/22/23) Hypo-osmolality and hyponatremia (07/22/23) Chronic diastolic (congestive) heart failure (07/22/23) Cellulitis of right lower limb (07/22/23) MCC (current) use of insulin (07/22/23) Subjective Subjective [...] GFR (MDRD) Non-Af 92, BUN/Creatinine Ratio 16.1, Tgajhxm047 H, Calcium 8.5 Micro: Microbiology 07/23/23 09:00 [...] follow-up in wound clinic in [address] Goyo Katz's. Continue abx through the [...] complication status: with unspecified complications Diabetes mellitus terminal carman insulin use: with chcf use Qualified Code(s): E11.8 - Type 2 diabetes mellitus with unspecified complications; Z79.4 - MCC (current) use of insulin; Z79.4 - intermediate frame tender (current) use of insulin; Z79.4 - intermediate frame tender (current) use of insulin; Z79.4 - MCC (current) use of insulin PLAN: Plan Chronic [...] Signature (if applicable): CC: ~ Signed [facility] Work Phone: 1(945) 722-484211-13-2023 Progress note Author [facility]ma [facility] July 27, 2023 5:17pm Note Date/Time July 27, 2023 9:55am [facility] Medical Records Department [address] [place] [address] Progress Note - Hospitalist 07/27/23 0949 MR#: [id number] Acct: [id number] Name: MALIERNESTOBLANCA Celso Rep #:[id number] : 1950 72 From: Chema Zambrano DO PCP: Dr. Maya Pradhan, DO Status:ADM IN Location: [place] [address]- Subjective Subjective feels well. Objective Data Objective [...] follow-up in wound clinic in [address] Goyo Katz's. (2) Acute hyponatremia: PLAN: [...] complication status: with unspecified complications Diabetes mellitus terminal carman insulin use: with terminal carman use Qualified Code(s): E11.8 - Type 2 diabetes mellitus with unspecified complications; Z79.4 - MCC (current) use of insulin; Z79.4 - intermediate frame tender (current) use of insulin; Z79.4 - MCC (current) use of insulin; Z79.4 - intermediate frame tender (current) use of insulin PLAN: Plan Chronic [...] to SNF. Charges/Coding Visit Charges Inpatient E&M: 04710 Subs Hosp L1 07/27/23 1713 <Electronically signed by Chema Zambrano DO> Cosigner Signature (if applicable): CC: ~ Signed [facility] Work Phone: 1(346) 294-371911-12-2023 Progress note Author Stewart Dukes [facility] July 26, 2023 2:47pm Note Date/Time July 26, 2023 2:47pm [facility] Medical Records Department [address] [place] [address] Progress Note - Hospitalist 07/26/23 1441 MR#: [id number] Acct: [id number] Name: JAIROBLANCA E Rep #:[id number] : 1950 72 From: Stewart Jacinto PCP: Dr. Maya Pradhan DO Status:ADM IN Location: [place] [address] Reason for Visit Reason for Visit: Diagnoses Type 2 diabetes mellitus with unspecified complications (07/22/23) Hypo-osmolality and hyponatremia (07/22/23) Chronic diastolic (congestive) heart failure (07/22/23) Cellulitis of right lower limb (07/22/23) MCC (current) use of insulin (07/22/23) Objective Data [...] (Auto) 66.4, Lymph % (Auto) 12.7 L, [place] % (Auto) 17.2 H, Eos % (Auto) [...] complication status: with unspecified complications Diabetes mellitus terminal carman insulin use: with terminal carman use Qualified Code(s): E11.8 - Type 2 diabetes mellitus with unspecified complications; Z79.4 - intermediate frame tender (current) use of insulin; Z79.4 - intermediate frame tender (current) use of insulin; Z79.4 - MCC (current) use of insulin; Z79.4 - intermediate frame tender (current) use of insulin PLAN: Plan Patient [...] follow-up in wound clinic in [address] Goyo Katz's. 2. Subacute/chronic hypervolemic hyponatremia [...] subcu daily. Charges/Coding Visit Charges Inpatient E&M: 82594 Subs Hosp L2 07/26/23 1447 <Electronically signed by Stewart Dukes MD> Cosigner Signature (if applicable): CC: ~ Signed [facility] Work Phone: 1(360) 389-111111-11-2023 Progress note Author Stewart Dukes [facility] July 25, 2023 12:46pm Note Date/Time July 25, 2023 12:43pm [facility] Medical Records Department [address] [place] [address] Progress Note - Hospitalist 07/25/23 1237 MR#: [id number] Acct: [id number] Name: SAMANTHAJONOBLANCA E Rep #:[id number] : 1950 72 From: Stewart Jacinto PCP: Dr. Maya Pradhan, DO Status:ADM IN Location: [place] [address] Reason for Visit Reason for Visit: Diagnoses Type 2 diabetes mellitus with unspecified complications (07/22/23) Hypo-osmolality and hyponatremia (07/22/23) Chronic diastolic (congestive) heart failure (07/22/23) Cellulitis of right lower limb (07/22/23) MCC (current) use of insulin (07/22/23) Objective Data [...] (Auto) 68.9, Lymph % (Auto) 13.8 L, [place] % (Auto) 15.1 H, Eos % (Auto) [...] the doctor he agreed [facility] Therefore discharge canceled. Wound is healing well. [...] complication status: with unspecified complications Diabetes mellitus terminal carman insulin use: with terminal carman use Qualified Code(s): E11.8 - Type 2 diabetes mellitus with unspecified complications; Z79.4 - intermediate frame tender (current) use of insulin; Z79.4 - MCC (current) use of insulin; Z79.4 - intermediate frame tender (current) use of insulin; Z79.4 - intermediate frame tender (current) use of insulin PLAN: Plan Patient [...] follow-up in wound clinic in [address] Goyo Katz's. 2. Subacute/chronic hypervolemic hyponatremia [...] of discharge today. Visit Charges Inpatient E&M: 34100 Subs Hosp L2 07/25/23 1246 <Electronically signed by Stewart Dukes MD> Cosigner Signature (if applicable): CC: ~ Signed [facility] Work Phone: 1(894) 960-811011-11-2023 Discharge summary Author Stewart Dukes [facility] July 25, 2023 11:25am Note Date/Time July 25, 2023 11:17am [facility] Medical Records Department [address] [place] [address] Discharge Summary 07/25/23 1117 MR#: [id number] Acct: [id number] Name: BLANCA GILL Celso Rep #:[id number] : 1950 72 From: Stewart Jacinto PCP: Dr. Maya Pradhan, DO Status:ADM IN Location: [facility] [id number] Providers Date of Admission: 07/22/23 Date of Discharge: 07/25/23 Primary Care Physician: Dr. 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/log getter Routine Comment: Reason for Consult:: Nonhealing right [...] complication status: with unspecified complications Diabetes mellitus terminal carman insulin use: with terminal carman use Qualified Code(s): E11.8 - Type 2 diabetes mellitus with unspecified complications; Z79.4 - intermediate frame tender (current) use of insulin; Z79.4 - intermediate frame tender (current) use of insulin; Z79.4- intermediate frame tender (current) use of insulin; Z79.4 - intermediate frame tender (current) use of insulin Plan Patient was [...] follow-up in wound clinic in [address] Goyo Katz's. 2. Subacute/chronic hypervolemic hyponatremia [...] (Auto) 68.9, Lymph % (Auto) 13.8 L, [place] % (Auto) 15.1 H, Eos % (Auto) [...] Self Care Charges/Coding Visit Charges Inpatient E&M: 67831 Disch Hosp >30min 07/25/23 1125 <Electronically signed by Stewart Dukes MD> Cosigner Signature (if applicable): CC: DAMON Katz; Dr. Maya Pradhan DO; Dr. Stewart Dukes MD; Dr. Alfonso Jade MD~ Signed [facility] Work Phone: 1(370) 689-354411-11-2023 Discharge summary Author Stewart Dukes [facility] July 25, 2023 11:16am Note Date/Time July 25, 2023 11:08am [facility] Medical Records Department [address] [place] [address] Instructions for Home/Discharge Instructions 07/25/23 1106 MR#: [id number] Acct: [id number] Name: BLANCA GILL Rep #:[id number] : 1950 72 From: Stewart Jacinto PCP: [...] Dr. Alfonso Jade MD ~ Signed [facility] Work Phone: 1(660) 935-995611-10-2023 Consult note Author Emmett Guerrero [facility] July 24, 2023 9:22pm Note Date/Time July 24, 2023 7:31am [facility] Medical Records Department [address] [place] [address] Pharmacokinetic/Renal -Consult 07/24/23727 MR#: [id number] Acct: [id number] Name: BLANCA GILL Rep #:[id number] : 1950 72 From: Faith Lazo PCP: Dr. Maya Pradhan, DO Status:ADM IN Y Location: [place] [address] Consult Antibiotic Management Pharmacy has been consulted [...] Emmett Patten DO CC: ~ Signed [facility] Work Phone: 1(779) 774-438811-10-2023 Progress note Author Stewart Ernst [facility] July 24, 2023 4:53pm Note Date/Time July 24, 2023 4:53pm [facility] Medical Records Department [address] [place] [address] [address] Progress Note - Hospitalist 07/24/23 1645 MR#: [id number] Acct: [id number] Name: BLANCA GILL Rep #:[id number] : 1950 72 From: Stewart Jacinto PCP: Dr. Maya Pradhan DO Status:ADM IN Location: [place] [address]- 1 Reason for Visit Reason for Visit: Diagnoses Type 2 diabetes mellitus with unspecified complications (07/22/23) Hypo-osmolality and hyponatremia (07/22/23) Chronic diastolic (congestive) heart failure (07/22/23) Cellulitis of right lower limb (07/22/23) MCC (current) use of insulin (07/22/23) Objective Data [...] (Auto) 61.4, Lymph % (Auto) 17.5 L, [place] % (Auto) 18.7 H, Eos % (Auto) [...] complication status: with unspecified complications Diabetes mellitus terminal carman insulin use: with chcf use Qualified Code(s): E11.8 - Type 2 diabetes mellitus with unspecified complications; Z79.4 - intermediate frame tender (current) use of insulin; Z79.4 - MCC (current) use of insulin; Z79.4 - MCC (current) use of insulin; Z79.4 - MCC (current) use of insulin PLAN: Plan Patient [...] subcu daily. Charges/Coding Visit Charges Inpatient E&M: 89568 Subs Hosp L2 07/24/23 7760 <Electronically signed by Stewart Dukes MD> Cosigner Signature (if applicable): CC: ~ Signed [facility] Work Phone: 1(254) 149-966511-10-2023 Progress note Author Alfonso [facility] July 24, 2023 2:12pm Note Date/Time July 24, 2023 2:12pm [facility] Medical Records Department [address] [place] [address] Progress Note - Infect Disease 07/24/23 1409 MR#: [id number] Acct: [id number] Name: BLANCA GILL Rep #:[id number] : 1950 72 From: Alfonso burns MD PCP: Dr. Maya Pradhan, DO Status:ADM IN Location: [place] [address] Physical Exam Narrative Feeling better, no fever, [...] complication status: with unspecified complications Diabetes mellitus chcf insulin use: with chcf use Qualified Code(s): E11.8 - Type 2 diabetes mellitus with unspecified complications; Z79.4 - intermediate frame tender (current) use of insulin; Z79.4 - MCC (current) use of insulin; Z79.4 - MCC (current) use of insulin; Z79.4 - intermediate frame tender (current) use of insulin (3) Chronic diastolic (congestive) heart failure: 07/24/23 1412 <Electronically signed by Alfonso Jade MD> Cosigner Signature (if applicable): CC: ~ Signed [facility] Work Phone: 1(908) 186-388111-10-2023 Consult note Author Chema Montalvo [facility] July 23, 2023 11:19pm Note Date/Time July 23, 2023 1 1:19pm [facility] Medical Records Department [address] [place] [address] Pharmacokinetic/Renal -Consult 07/23/237 MR#: [id number] Acct: [id number] Name: JAIROBLANCA E Rep #:[id number] : 1950 72 From: Chema Montalvo PCP: Dr. Maya Pradhan, DO Status:ADM IN Location: [place] [address] Consult Antibiotic Management Pharmacy has been consulted [...] [date and time ordered]: 07/24/23 @0600 07/23/23 6970 <Electronically signed by Chema garcia> Date _ Chema Buck Signature (if applicable): Date CC: ~ Signed [facility] Work Phone: 1(220) 359-331011-09-2023 Progress note Author Stewart Dukes [facility] July 23, 2023 4:47pm Note Date/Time July 23, 2023 9 :08am [facility] Medical Records Department [facility] [place] [address] Progress Note - Hospitalist 07/23/23905 MR#: [id number] Acct: [id number] Name: BLANCA GILL Rep #:[id number] : 1950 72 From: Stewart Jacinto PCP: Dr. Maya Pradhan, DO Status:ADM IN Location: [place] [address] Reason for Visit Reason for Visit: Diagnoses Type 2 diabetes mellitus with unspecified complications (07/22/23) Hypo-osmolality and hyponatremia (07/22/23) Cellulitis of right lower limb (07/22/23) intermediate frame tender (current) use of insulin (07/22/23) Objective Data [...] (Auto) 64.1, Lymph % (Auto) 18.4 L, [place] % (Auto) 14.2 H, Eos % (Auto) [...] (Auto) 68.6, Lymph % (Auto) 13.4 L, [place] % (Auto) 15.9 H, Eos % (Auto) [...] complication status: with unspecified complications Diabetes mellitus chcf insulin use: with terminal carman use Qualified Code(s): E11.8 - Type 2 diabetes mellitus with unspecified complications; Z79.4 - intermediate frame tender (current) use of insulin; Z79.4 - intermediate frame tender (current) use of insulin; Z79.4 - MCC (current) use of insulin; Z79.4 - intermediate frame tender (current) use of insulin PLAN: Plan Patient [...] subcu daily. Charges/Coding Visit Charges Inpatient E&M: 26678 Subs Hosp L2 07/23/23 1647 <Electronically signed by Stewart Dukes MD> Cosigner Signature (if applicable): CC: ~ Signed [facility] Work Phone: 1(660) 221-956111-09-2023 Consult note Author Alfonso Jade [facility] July 23, 2023 10:25am Note Date/Time July 23, 2023 1 0:26am [facility] Medical Records Department [facility] [place] [address] Consultation - Infectious Dx 07/23/23 1022 MR#: [id number] Acct: [id number] Name: BLANCA GILL Rep #:[id number] : 1950 72 From: Alfonso burns MD PCP: Dr. Maya Pradhan, DO Status:ADM IN Location: [place] [id number] Assessment & Plan Assessment/Plan (1) Cellulitis [...] complication status: with unspecified complications Diabetes mellitus terminal carman insulin use: with chcf use Qualified Code(s): E11.8 - Type 2 diabetes mellitus with unspecified complications; Z79.4 - intermediate frame tender (current) use of insulin; Z79.4 - MCC (current) use of insulin; Z79.4 - intermediate frame tender (current) use of insulin; Z79.4 - intermediate frame tender (current) use of insulin (3) Chronic diastolic [...] Performed and neg except as noted above. [facility] Medical History Abnormal nuclear stress test Anxiety Asthma Atherosclerotic heart disease of [place] coronary artery without angina pectoris Carotid bruit [...] (Auto) 64.1, Lymph % (Auto) 18.4 L, [place] % (Auto) 14.2 H, Eos % (Auto) [...] (Auto) 68.6, Lymph % (Auto) 13.4 L, [place] % (Auto) 15.9 H, Eos % (Auto) [...] Patten DO; Dr. Maya Pradhan DO; Dr. lAfonso Jade MD~ Signed [facility] Work Phone: 1(122) 637-412511-09-2023 Consult note Author Emmett [facility] July 23, 2023 6:59am Note Date/Time July 23, 2023 3 :31am [facility] Medical Records Department [address] [place] [address] Pharmacokinetic/Renal -Consult 07/23/23 0330 MR#: [id number] Acct: [id number] Name: JAIROBLANCA E Rep #:[id number] : 1950 72 From: Chema Montalvo PCP: Dr. Maya Pradhan DO Status:ADM IN Y Location: [id number]- 1 Consult Antibiotic Management Pharmacy has been [...] Emmett Patten DO CC: ~ Signed [facility] Work Phone: 1(532) 978-148111-09-2023 History and physical note Author Emmett Guerrero [facility] July 23, 2023 6:47am Note Date/Time July 22, 2023 1 0:30pm [facility] Medical Records Department [address] [place] [address] H&P Exam - Hospitalist 07/22/23 2213 MR#: [id number] Acct: [id number] Name: BLANCA GILL Rep #:[id number] : 1950 72 From: Emmett Patel DO PCP: Dr. Maya Pradhan DO Status:ADM IN Location: [facility] [id number]- [id number] HPI - General General Date of [...] start him on clindamycin who presents to [facility] ER complaining of worsening lower extremity cellulitis. [...] expected to be greater than 48 hours. [facility] Medical History Abnormal nuclear stress test Anxiety Asthma Atherosclerotic heart disease of [place] coronary artery without angina pectoris Carotid bruit [...] (Auto) 64.1, Lymph % (Auto) 18.4 L, [place] % (Auto) 14.2 H, Eos % (Auto) [...] complication status: with unspecified complications Diabetes mellitus terminal carman insulin use: with chcf use Qualified Code(s): E11.8 - Type 2 diabetes mellitus with unspecified complications; Z79.4 - MCC (current) use of insulin; Z79.4 - intermediate frame tender (current) use of insulin; Z79.4 - MCC (current) use of insulin; Z79.4 - intermediate frame tender (current) use of insulin PLAN: Plan 1. [...] 75 minutes. Charges/Coding Visit Charges Inpatient E&M: 10370 Init Hosp L3 07/23/23 0647 <Electronically signed by Emmett Patten DO> Cosigner Signature (if applicable): CC: Dr. Emmett Patten DO; Dr. Maya Pradhan DO~ Signed [facility] Work Phone: 1([phone]) 156-978911-09-2023 Discharge summary Author Claude Boyd [facility] July 23, 2023 12:04am Note Date/Time July 22, 2023 8 :56pm [facility] Medical Records Department [address] [place] [address] [place] [address] Emergency Department Summary 07/22/23 MR#: [id number] Acct: [id number] Name: BLANCA GILL Rep #:[id number] : 1950 72 From: Claude Boyd DO PCP: Dr. Maya Pradhan DO Status:ADM IN Location: [place] [address] HPI History of Present Illness Chief Complaint: [...] had no fever or chills or sweats. [facility] Medical History Abnormal nuclear stress test Anxiety Asthma Atherosclerotic heart disease of [place] coronary artery without angina pectoris Carotid bruit [...] (Auto) 64.1 Lymph % (Auto) 18.4 L [place] % (Auto) 14.2 H Eos % (Auto) [...] Acute hyponatremia Disposition Disposition: Acute Care Hospital [facility] What to do if you have Problems For any increased pain, shortness of breath, bleeding, nausea or vomiting, chestpain, or any unexpected problems, contact your Primary Care Provider. Call [facility] ([phone]) or report to the closest Emergency Room. Call 911 if necessary. 07/23/233 <Electronically signed by Claude Boyd DO> Cosigner Signature (if applicable): CC: Dr. Maya Pradhan DO ~ Signed [facility] Work Phone: 1(100) [phone] Discharge summary Author Claude Boyd [facility] July 23, 2023 12:04am Note Date/Time July 22, 2023 8 :56pm [facility] Medical Records Department [address] [facility] [place] [address] Emergency Department Summary 07/22/23 MR#: [id number] Acct: [id number] Name: BLANCA GILL Rep #:[id number] : 1950 72 From: Claude Boyd DO PCP: Dr. Maya Pradhan DO Status:ADM IN Location: [place] [address] HPI History of Present Illness Chief Complaint: [...] had no fever or chills or sweats. [facility] Medical History Abnormal nuclear stress test Anxiety Asthma Atherosclerotic heart disease of [place] coronary artery without angina pectoris Carotid bruit [...] (Auto) 64.1 Lymph % (Auto) 18.4 L [place] % (Auto) 14.2 H Eos % (Auto) [...] of chronic CHF, Acute hyponatremia Disposition Disposition: [facility] What to do if you have Problems For any increased pain, shortness of breath, bleeding, nausea or vomiting, chestpain, or any unexpected problems, contact your Primary Care Provider. Call [facility] ([phone]) or report to the closest Emergency Room. Call 911 if necessary. 07/23/23 0004 <Electronically signed by Claude Boyd DO> Cosigner Signature (if applicable): CC: Dr. Maya Pradhan, ~ Signed [facility] Work Phone: 1(249) 542-134408-17-2022 Evaluation + Plan note Future Scheduled Tests Laboratory* Prostate Specific Antigen 04/30/22 * Thyroid Stimulating Hormone 04/30/22 * A1C Hemoglobin 04/30/22 * Complete Blood Count 04/30/22 * Lipid Profile 04/30/22 * PSA, Free 05/18/21 * Vitamin D Level 04/30/22 * Complete Metabolic Panel 04/30/22 [facility] 07-31-2019 Evaluation note* Diagnosis Onset Date Resolution Status Carotid bruit acute Essential hypertension acute History of coronary artery stent placement April 13, 2019 acute Edema chronic Hyperlipidemia chronic [facility] Work Phone: 1(523) 271-715407-31-2019 Evaluation note* Diagnosis Onset Date Resolution Status Carotid bruit acute Essential hypertension acute History of coronary artery stent placement April 13, 2019 acute Edema chronic Hyperlipidemia chronic KRISTI (obstructive sleep apnea) acute Asthma chronic 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 [facility] Work Phone: [phone]) 740-588907-31-2019 Evaluation note* Diagnosis Onset Date Resolution Status 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 disease 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 Diabetes mellitus, type 2 ch ronic Essential hypertension chron ic History of coronary artery stent placement April 13, 2019 chronic Hyperlipidemia chronic Lower extremity edema chroni c 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 Diabetes mellitus, type 2 ch ronic Essential hypertension chron ic History of coronary artery stent placement April 13, 2019 chronic Hyperlipidemia chronic Lower extremity edema chroni c 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 [facility] Work Phone: [phone]) 571-721807-31-2019 Evaluation note* Diagnosis Onset Date Resolution Status 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 disease 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 Diabetes mellitus, type 2 ch ronic Essential hypertension chron ic History of coronary artery stent placement April 13, 2019 chronic Hyperlipidemia chronic Lower extremity edema chroni c 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 Diabetes mellitus, type 2 ch ronic Essential hypertension chron ic History of coronary artery stent placement April 13, 2019 chronic Hyperlipidemia chronic Lower extremity edema chroni c 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 Lower extremity edema chroni c [facility] Work Phone: [phone]) 885-460407-31-2019 Evaluation note* Diagnosis Onset Date Resolution Status 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 disease 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 Diabetes mellitus, type 2 ch ronic Essential hypertension chron ic History of coronary artery stent placement April 13, 2019 chronic Hyperlipidemia chronic Lower extremity edema chroni c 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 Lower extremity edema chroni c Acute hyponatremia acute Cellulitis of leg, right acu te Diabetes mellitus, type 2 ch ronic History of chronic CHF chron ic [facility] Work Phone: [phone]) 377-226107-31-2019 Evaluation note* Diagnosis Onset Date Resolution Status 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 disease 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 Diabetes mellitus, type 2 ch ronic Essential hypertension chron ic History of coronary artery stent placement April 13, 2019 chronic Hyperlipidemia chronic Lower extremity edema chroni c 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 Lower extremity edema chroni c Acute hyponatremia acute Cellulitis of leg, right acu te Chronic diastolic (congestive) heart failure chronic Diabetes mellitus, type 2 ch ronic History of chronic CHF chron [facility] Work Phone: 1(893) 845-484910-08-2018 History of Past illness Narrative* Problem Noted Date Diagnosed Date Resolved Date 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, left eye 06/21/2018 07/30/2018 documented as of this encounter (statuses as of 10/17/2023) [facility]ments App[facility]ment [...] Level 04/30/22 * Complete Metabolic Panel 04/30/22 [facility] Evaluation + Plan note Future [...] Level 04/30/22 * Complete Metabolic Panel 04/30/22 [facility] Evaluation + Plan note Future Appointments Appointment Date:02/02/2024 02:40:00 PM Scheduled Provider:GLENDY CARDOZA Location:UROLOGY Appointment Type:URO OV Future Scheduled Tests Laboratory* Prostate Specific Antigen 07/28/23 [facility] Evaluation + Plan note Future Appointments Appointment Date:08/04/2024 09:40:00 AM Scheduled Provider:GLENDY CARDOZA Location:UROLOGY Appointment Type:URO OV Future Scheduled Tests Laboratory* Prostate Specific Antigen 08/04/24 * Prostate Specific Antigen 07/28/23 [facility] Evaluation note* Diagnosis Onset Date Resolution Status KRISTI (obstructive sleep apnea) acute Asthma chronic Chronic diastolic (congestive) heart failure chronic 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 Abnormal nuclear stress test acute Essential hypertension acute Atherosclerotic heart diseas e of [place] coronary artery without angina pectoris chronic Edema chronic Hyperlipidemia [facility] Work Phone: Evaluation note* Diagnosis Onset Date Resolution Status Abnormal nuclear stress test acute Essential hypertension acute Atherosclerotic heart diseas e of [place] coronary artery without angina pectoris chronic Edema chronic Hyperlipidemia chronic Essential hypertension acute History of coronary artery stent placement April 13, 2019 acute Edema chronic Hyperlipidemia [facility] Work Phone: Evaluation note* Diagnosis Onset Date Resolution Status KRISTI (obstructive sleep apnea) acute Asthma chronic 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 [facility] Work Phone: Evaluation note* Diagnosis Onset Date Resolution Status Lower extremity edema chroni c History of chronic CHF chron ic Cellulitis of leg, right res olved Chronic diastolic (congestive) heart failure resolved Ulcer of extremity due to chronic venous insufficiency chronic Ulcer of extremity due to chronic venous insufficiency [facility] Work Phone: Evaluation note* Diagnosis Itching- Primary Unspecified pruritic disorder [facility] Diagnosis Onset Date Resolution Status Ulcer of extremity due to ch ronic venous insufficiency chronic Ulcer of extremity due to ch ronic venous insufficiency chronic Ulcer of extremity due to ch ronic venous insufficiency chronic Asthma acute Ulcer of extremity due to ch ronic venous insufficiency chronic Tinea cruris acute 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 disease 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 Dyspnea on exertion chronic Essential hypertension chron ic History of coronary artery stent placement April 13, 2019 chronic Hyperlipidemia chronic Lower extremity edema chroni c 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 Varicose veins of both legs with edema [facility] Work Phone: Evaluation note* Diagnosis Onset Date Resolution Status Ulcer of extremity due to ch ronic venous insufficiency chronic Ulcer of extremity due to ch ronic venous insufficiency chronic Asthma acute Ulcer of extremity due to ch ronic venous insufficiency chronic Tinea cruris acute 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 disease 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 Dyspnea on exertion chronic Essential hypertension chron ic History of coronary artery stent placement April 13, 2019 chronic Hyperlipidemia chronic Lower extremity edema chroni c 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 [facility] Work Phone: Evaluation note* Diagnosis Onset Date Resolution Status Ulcer of extremity due to ch ronic venous insufficiency chronic Ulcer of extremity due to ch ronic venous insufficiency chronic Asthma acute Ulcer of extremity due to ch ronic venous insufficiency chronic Tinea cruris acute 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 disease 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 Dyspnea on exertion chronic Essential hypertension chron ic History of coronary artery stent placement April 13, 2019 chronic Hyperlipidemia chronic Lower extremity edema chroni c 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 Ulcer of extremity due to ch ronic venous insufficiency chronic [facility] Work Phone: Evaluation note* Diagnosis BPH [...] neoplasm of prostate [facility] Diagnosis Prostate disorder- Primary Unspecified disorder of prostate UTI symptoms- Primary Other symptoms involving urinary system documented in this encounter [facility] note* Diagnosis Prostate disorder- Primary Unspecified disorder of prostate BPH with obstruction/lower urinary tract symptoms- Primary Hypertrophy of prostate with urinary obstruction and other lower urinary tract symptoms (LUTS) Urine retention Retention of urine, unspecified [facility]* Diagnosis Prostate disorder- Primary Unspecified disorder of prostate BPH with obstruction/lower urinary tract symptoms- Primary Hypertrophy of prostate with urinary obstruction and other lower urinary tract symptoms (LUTS) Urine retention Retention of urine, unspecified OAB (overactive bladder) Hypertonicity of bladder [facility]* Diagnosis Prostate disorder- Primary Unspecified disorder of prostate Fungal infection of the groin- Primary Dermatophytosis of groin and perianal area [facility]* Diagnosis Prostate disorder- Primary Unspecified disorder of prostate Open wound- Primary Open wound(s) (multiple) of unspecified site(s), without mention of complication Dysuria documented in this encounter [facility] note* Diagnosis Prostate disorder- Primary Unspecified disorder of prostate Healing wound- Primary documented in this encounter [facility] note* Diagnosis Prostate disorder- Primary Unspecified disorder of prostate Feared condition not demonstrated- Primary Person with feared complaint in whom no diagnosis was made Skin erythema Unspecified erythematous condition documented in this encounter [facility] note* Diagnosis Prostate disorder- Primary Unspecified disorder of prostate Urinary urgency- Primary Urgency of urination BPH with obstruction/lower urinary tract symptoms Hypertrophy of prostate with urinary obstruction and other lower urinary tract symptoms (LUTS) Erectile dysfunction due to arterial insufficiency Impotence of organic origin [facility]* Diagnosis Prostate disorder- Primary Unspecified disorder of prostate Skin infection- Primary Unspecified local infection of skin and subcutaneous tissue [facility]* Diagnosis Prostate disorder- Primary Unspecified disorder of prostate Tinea cruris- Primary Dermatophytosis of groin and perianal area Penile irritation Other specified disorder of penis [facility]* Diagnosis Prostate disorder- Primary Unspecified disorder of prostate Tinea cruris- Primary Dermatophytosis of groin and perianal area [facility]* Diagnosis Prostate disorder- Primary Unspecified disorder of prostate BPH with obstruction/lower urinary tract symptoms- Primary Hypertrophy of prostate with urinary obstruction and other lower urinary tract symptoms (LUTS) Urine retention Retention of urine, unspecified Type 2 diabetes mellitus with hyperglycemia, unspecified whether chcf insulin use (HCC) Screening for genitourinary condition Screening for other and unspecified genitourinary condition documented in this encounter [facility] noteNo assessment information [facility] Work [facility]: Evaluation note* Diagnosis Urinary urgency- [...] male genital organs [facility] Onset Date Resolution Status Admit Date (HFpEF) heart failure with preserved ejection fraction chronic Augu 2024 8:47am 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 disease chronic A ug2024 8:47am Dyslipidemia chronic May 03, 2025 8:47am Hypertension chronic May 03, 2025 8:47am [facility] Work Phone: Evaluation note* Diagnosis Feeling of incomplete bladder emptying- Primary Incomplete bladder emptying [facility] BPH with obstruction/lower urinary tract symptoms- Primary Hypertrophy of prostate with urinary obstruction and other lower urinary tract symptoms (LUTS) Feeling of incomplete bladder emptying Incomplete bladder emptying [facility] Incomplete bladder emptying- Primary Prostate cancer screening Special screening for malignant neoplasm of prostate [facility] Narrative No data available for this section [facility] Hospital Discharge instructions No data available for this section [facility] Instructions* Attachments The following attachments cannot be sent through Care Everywhere. * Cystoscopy in the Office ([facility]) ([place]) * Prostate Ultrasound and Biopsy ([facility]) ([place]) [facility]* Attachments The following attachments cannot be sent through Care Everywhere. * Cystoscopy: Post-op (Martiniquais) * TRUS Discharge Instructions ([facility]) ([place]) [facility] No data available for this section [facility] Reason for referral (narrative)No reason for referral information availableWAccess [facility] [place] Work Phone: Summary Purpose Family History No [...] No December 06, 2021 7:22am Power of Slat Basket Maker Helper Machine No December 06 7:22am Advance Directive Response Recorded Date/ Time Advance Directives No December 06 6:22am Living Will No December 06, 2021 6:22am Power of Slat Basket Maker Helper Machine No December 06 6:22am Advance Directive Response Recorded Date/ Time Advance Directives No December 06 6:22am Living Will No July 22 8:13pm Power of Slat Basket Maker Helper Machine No July 22, 2023 8:13pm Advance Directive Response Recorded Date/ Time Advance Directives No December 06 6:22am Living Will No July 23 1:36am Power of Slat Basket Maker Helper Machine No July 23, 2023 1:36am Advance Directive Response Recorded Date/ Time Advance Directives No September 30, 2023 10:03am Living Will No September 30 10:03am Power of Slat Basket Maker Helper Machine No September 30, 2023 10:03am Advance Directive Response Recorded Date/ Time Advance Directives No September 30, 2023 11:03am Living Will No September 30 11:03am Power of Slat Basket Maker Helper Machine No September 30, 2023 11:03am Advance Directive Response Recorded Date/ Time Advance Directives No January 20, 2024 12:44pm Living Will No January 20, 2024 12 :44pm Power of Slat Basket Maker Helper Machine No January 20, 2024 12:44pm Advance Directive Response Recorded Date/ Time Living Will No November 07 5:04am Do you have a Healthcare Power of Slat Basket Maker Helper Machine? No November 07, 2024 5:04am Advance Directives [...] test Essential hypertension Atherosclerotic heart disease of [place] coronary artery without angina pectoris Edema Hyperlipidemia Chief Complaint 3 M FU FALL - SWELLING POSTERIOR THIGH DYSPNEA ON EXERTION DYSPNEA ON EXERTION 3 M FU LEFT HEART CATH I73.9 Peripheral vascular disease, unspecified SWELLING/PAIN Reason for Visit KRISTI (obstructive sle ep apnea) Asthma Chronic diastolic (congestive) heart failure 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.9) Abnormal nuclear stress test Essential hypertension Atherosclerotic heart disease of [place] coronary artery without angina pectoris Edema Hyperlipidemia Chief Complaint DYSPNEA ON EXERTION DYSPNEA ON EXERTION 3 M FU LEFT HEART CATH I73.9 Peripheral vascular disease, unspecified SWELLING/PAIN 9 M FU (DJN PT) Reason for Visit Abnormal nuclear str ess test Essential hypertension Atherosclerotic heart disease of [place] coronary artery without angina pectoris Edema Hyperlipidemia [...] section and content) DATE CREATED AUTHOR 08/22/2018 [facility] DATE CREATED AUTHOR AUTHOR'S ORGANIZ ATION 08/24/2018 [facility] DATE CREATED AUTHOR AUTHOR'S ORGANIZ ATION 02/27/2024 [facility] ([place]) DATE CREATED AUTHOR AUTHOR'S ORGANIZ ATION 05/30/2025 [facility] DATE CREATED AUTHOR AUTHOR'S ORGANIZ ATION 06/19/2025 [facility] DATE CREATED AUTHOR AUTHOR'S ORGANIZ ATION 07/15/2025 [facility] Goals (unrecognized section and content) Goals [...] Role: Primary Care Physician Address: Address: [address] [place] [address]- [place] Care Team Related Persons Name: MARK GILL Care Team Personnel Name: MAYA PRADHAN DO Member Role: Primary Care Physician Address: Address: [address] [place] [address] [place] [id number] Care Team Related Persons Name: MARK [...] Referring P rovider Active Aretha Vasquez NP, SEPTIC TANK CLEANER-C Attending Provider Active Team Status: Active Member [...] DO Primary Care Provider Active Liz Romero SEPTIC TANK CLEANER, SEPTIC TANK CLEANER-C Attending Provider Active Team Status: Inactive Member [...] DO Primary Care Provider Active Larisa Gay SEPTIC TANK CLEANER, SEPTIC TANK CLEANER-C Attending Provider Active Team Status: Active Member [...] MD Attending Provider, Referring Pro vider Active Body Liner Relationship Specialty Start Date End Date Maya Pradhan DO [address] [place], [place] [id number] PCP - General Family Medicine 06/11/18 Team [...] Primary Care Provider Active Carlos Eduardo Hinds SEPTIC TANK CLEANER, SEPTIC TANK CLEANER-C Attending Provider, Referring Pro vider Active Body Liner Relationship Specialty Start Date End Date JuancarloskaterinMaya DO [address] [place], [place] [id number] PCP - General Family Medicine 06/11/18 Body Liner Relationship Specialty Start Date End Date CarolynnMaya DO [address] [place], [place] [id number] PCP - General Family Medicine 06/11/18 Body Liner Relationship Specialty Start Date End Date CarolynnMaya DO [address] [place], [place] [id number] PCP - General Family Medicine 06/11/18 Body Liner Relationship Specialty Start Date End Date Maya Pradhan DO [address] [place], [place] [id number] PCP - General Family Medicine 06/11/18 Body Liner Relationship Specialty Start Date End Date Maya Pradhan DO [address] [place] [address] PCP - General Family Medicine 06/11/18 Body Liner Relationship Specialty Start Date End Date Maya Pradhan DO [address] [place] [address] PCP - General Family Medicine 06/11/18 Body Liner Relationship Specialty Start Date End Date Maya Pradhan DO [address] [place] [address] PCP - General Family Medicine 06/11/18 Body Liner Relationship Specialty Start Date End Date Maya Pradhan DO [address] [place] [address] PCP - General Family Medicine 06/11/18 Body Liner Relationship Specialty Start Date End Date Maya Pradhan DO [address] [place] [address] PCP - General Family Medicine 06/11/18 Body Liner Relationship Specialty Start Date End Date Maya Pradhan DO [address] [place] [address] PCP - General Family Medicine 06/11/18 Body Liner Relationship Specialty Start Date End Date Maya Pradhan DO [address] [place] [address] PCP - General Family Medicine 06/11/18 Body Liner Relationship Specialty Start Date End Date Maya Pradhan DO [address] [place] [address] PCP - [facility] Medicine 06/11/18 Body Liner Relationship Specialty Start Date End Date Maya Pradhan DO [address] [place] [address] PCP - General [facility] Medicine 06/11/18 Team Status: Active Member [...] February 13, 2025 End: February 13, 2025 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.] or prosecute any alcohol or drug abuse patient.[facility] HospitalIn the event this information is protected by the Federal Confidentiality of Alcohol and Drug Abuse Patient Records regulations: The Federal rules restrict any use of the information to criminally investigate or prosecute any alcohol or drug abuse patient.[facility] HospitalIn the event this information is protected by the Federal Confidentiality of Alcohol and Drug Abuse Patient Records regulations: The Federal rules restrict any use of the information to criminally investigate or prosecute any alcohol or drug abuse patient.[facility] HospitalIn the event this information is protected by the Federal Confidentiality of Alcohol and Drug Abuse Patient Records regulations: The Federal rules restrict any use of the information to criminally investigate or prosecute any alcohol or drug abuse patient.[facility] HospitalIn the event this information is protected by the Federal Confidentiality of Alcohol and Drug Abuse Patient Records regulations: The Federal rules restrict any use of the information to criminally investigate or prosecute any alcohol or drug abuse patient.[facility] HospitalIn the event this information is protected by the Federal Confidentiality of Alcohol and Drug Abuse Patient Records regulations: The Federal rules restrict any use of the information to criminally investigate or prosecute any alcohol or drug abuse patient.[facility] HospitalIn the event this information is protected by the Federal Confidentiality of Alcohol and Drug Abuse Patient Records regulations: The Federal rules restrict any use of the information to criminally investigate or prosecute any alcohol or drug abuse patient.[facility] HospitalIn the event this information is protected by the Federal Confidentiality of Alcohol and Drug Abuse Patient Records regulations: The Federal rules restrict any use of the information to criminally investigate or prosecute any alcohol or drug abuse patient.[facility] HospitalIn the event this information is protected by the Federal Confidentiality of Alcohol and Drug Abuse Patient Records regulations: The Federal rules restrict any use of the information to criminally investigate or prosecute any alcohol or drug abuse patient.[facility] HospitalIn the event this information is protected by the Federal Confidentiality of Alcohol and Drug Abuse Patient Records regulations: The Federal rules restrict any use of the information to criminally investigate or prosecute any alcohol or drug abuse patient.[facility] HospitalIn the event this information is protected by the Federal Confidentiality of Alcohol and Drug Abuse Patient Records regulations: The Federal rules restrict any use of the information to criminally investigate or prosecute any alcohol or drug abuse patient.[facility] HospitalIn the event this information is protected by the Federal Confidentiality of Alcohol and Drug Abuse Patient Records regulations: The Federal rules restrict any use of the information to criminally investigate or prosecute any alcohol or drug abuse patient.[facility] HospitalIn the event this information is protected by the Federal Confidentiality of Alcohol and Drug Abuse Patient Records regulations: The Federal rules restrict any use of the information to criminally investigate or prosecute any alcohol or drug abuse patient.[facility] HospitalIn the event this information is protected by the Federal Confidentiality of Alcohol and Drug Abuse Patient Records regulations: The Federal rules restrict any use of the information to criminally investigate or prosecute any alcohol or drug abuse patient.[facility] HospitalIn the event this information is protected by the Federal Confidentiality of Alcohol and Drug Abuse Patient Records regulations: The Federal rules restrict any use of the information to criminally investigate or prosecute any alcohol or drug abuse patient.[facility] HospitalIn the event this information is protected by the Federal Confidentiality of Alcohol and Drug Abuse Patient Records regulations: The Federal rules restrict any use of the information to criminally investigate or prosecute any alcohol or drug abuse patient.[facility] HospitalIn the event this information is protected by the Federal Confidentiality of Alcohol and Drug Abuse Patient Records regulations: The Federal rules restrict any use of the information to criminally investigate or prosecute any alcohol or drug abuse patient.[facility] HospitalIn the event this information is protected by the Federal Confidentiality of Alcohol and Drug Abuse Patient Records regulations: The Federal rules restrict any use of the information to criminally investigate or prosecute any alcohol or drug abuse patient.[facility] HospitalIn the event this information is protected by the Federal Confidentiality of Alcohol and Drug Abuse Patient Records regulations: The Federal rules restrict any use of the information to criminally investigate or prosecute any alcohol or drug abuse patient.[facility] HospitalIn the event this information is protected by the Federal Confidentiality of Alcohol and Drug Abuse Patient Records regulations: The Federal rules restrict any use of the information to criminally investigate or prosecute any alcohol or drug abuse patient.[facility] HospitalIn the event this information is protected by the Federal Confidentiality of Alcohol and Drug Abuse Patient Records regulations: The Federal rules restrict any use of the information to criminally investigate or prosecute any alcohol or drug abuse patient.[facility] HospitalIn the event this information is protected by the Federal Confidentiality of Alcohol and Drug Abuse Patient Records regulations: The Federal rules restrict any use of the information to criminally investigate or prosecute any alcohol or drug abuse patient.[facility] HospitalIn the event this information is protected by the Federal Confidentiality of Alcohol and Drug Abuse Patient Records regulations: The Federal rules restrict any use of the information to criminally investigate or prosecute any alcohol or drug abuse patient.[facility] HospitalIn the event this information is protected by the Federal Confidentiality of Alcohol and Drug Abuse Patient Records regulations: The Federal rules restrict any use of the information to criminally investigate or prosecute any alcohol or drug abuse patient.[facility] HospitalIn the event this information is protected by the Federal Confidentiality of Alcohol and Drug Abuse Patient Records regulations: The Federal rules restrict any use of the information to criminally investigate or prosecute any alcohol or drug abuse patient.[facility] Reason for Visit (unrecogniz ed section [...] Referred By Radha rosado Referred To Contact [place] [id number] [place] [address] Referral ID Status Reason Start Date Expiration Date Visits Re quested Visits Authorized [id number] 1 Reason Comments Follow-up Reivew urocuff [...] BE BASED ON THE PRIMARY CLINICAL RECORDS. [employer] [facility]. provides no warranty or guarantee of the accuracy or completeness of information in this document.
--- NOTE | 2025-08-15 12:44 | STRESSREP ---
Stress Test Report Date: 08/15/2025 Procedure: Pharmacologic stress nuclear imaging study Indications: Chest pain Consent: Per the patient Procedure: The patient underwent pharmacologic (Regadenoson 0.4mg ) evaluation with a peak heart rate of 104 beats per minute (70%predicted maximal heart rate) and a peak blood pressure of 134/86 mmHg. The baseline ECG demonstrated sinus rhythm with right bundle branch block. The peak pharmacologic ECG did not show any ischemic changes. There were no cardiac dysrhythmias pretest, during pharmacologic infusion, or recovery. There was no complaint of chest discomfort during pharmacologic infusion or recovery. The patient was injected with 14.9 millicuries of technetium 99m Cardiolite and subsequently rest SPECT Cardiolite nuclear imaging was obtained in the horizontal long, vertical long, and short axis views. The patient underwent pharmacologic (Regadenoson) evaluation. The patient was injected with 44.3 millicuries of technetium 99m Cardiolite and subsequently stress SPECT Cardiolite nuclear imaging was obtained in the horizontal long, vertical long, and short axis views. A gated Cardiolite study at peak stress was obtained. The examination was stopped secondary to completion of protocol. Rest and stress SPECT Cardiolite nuclear imaging status post realignment and normalization demonstrate mildly reduced perfusion of the inferior wall poststress. There is end systolic thickening and brightening. The gated Cardiolite study demonstrates myocardial thickening and inward wall motion. The reported LVEF is 75%. Impression: 1. Pharmacologic (Regadenoson) evaluation 2. Peak pharmacologic ECG with no ischemic changes. 3. There were no cardiac dysrhythmias pretest, during pharmacologic infusion, or recovery. 5. Mild reversibility ischemia of the inferior wall. 6. The gated Cardiolite study reports an LVEF of 75%. This note was generated with Win[employer] software. It may contain incorrect words, spelling, and punctuation that were not noted in checking the note before signing.
== END | disposition home or self-care (01) ==
LOC: CVS 06:04
PROVIDERS: PCP Family Medicine; Referring Provider Physician Assistant Medical; Visit Provider Physician Assistant Medical
DX: I25.10 Atherosclerotic heart disease of native coronary artery without angina pectoris (principal); I25.2 Old myocardial infarction; Z95.5 Presence of coronary angioplasty implant and graft; I10 Essential (primary) hypertension; E78.5 Hyperlipidemia, unspecified; R07.9 Chest pain, unspecified
CPT/HCPCS: 78452; 93017; A9500; A4216; J2785

== ENCOUNTER 2025-08-17 14:53 | Emergency (ER) | payer MEDICARE, SELFPAY ==
[2024-05-06 07:26] VITALS: BMI 38.2
[2025-08-17 14:55] VITALS: BP 132/68; PULSE 79; RESP 16; TEMP 37.2; O2SAT 100; BMI 38.3
--- NOTE | 2025-08-17 15:15 | CT_ITS ---
PROCEDURE: ABDOMEN/PELVIS W IV CONT ONLY 08/17/2025 REASON FOR EXAM: LOW BACK PAIN TECHNIQUE: Procedure Code: [id number] Modality: CT Procedure: ABDOMEN/PELVIS W IV CONT ONLY Coronal and Sagittal reconstruction series were provided. CONTRAST: Isovue-300 VOLUME: 100 mL One or more dose reduction techniques were used (e.g., Automated exposure control, adjustment of the mA and/or kV according to patient size, use of iterative reconstruction technique. RADIATION DOSE SUMMARY: DLP: 1351.63 mGycm COMPARISON: CT abdomen/pelvis 05/06/2024 FINDINGS: Lower chest: No focal lung consolidation. Mild dependent atelectasis. Liver: Normal size. Hepatic steatosis. No enhancing lesion. Gallbladder and biliary ducts: Cholecystectomy. Normal caliber intrahepatic and common bile ducts. Pancreas:Atrophic. No ductal dilatation or mass. No peripancreatic fluid. Spleen: Unremarkable. Adrenal glands: Unremarkable. Kidneys and ureters: Normal renal size, morphology, and enhancement. No nephroureterolithiasis, or hydroureteronephrosis. Right lower pole renal cysts measuring a proximally 1.5 x 1.1 cm. Nonspecific trace bilateral perinephric edema. Urinary bladder: Unremarkable. GI: Unremarkable stomach and duodenum. Normal caliber small bowel and large bowel.Diverticulosis without evidence of diverticulitis. Appendix: Surgically absent. Peritoneum: No ascites. Bilateral fat containing inguinal hernias. Lymph nodes: No lymphadenopathy. Vasculature: Portal, splenic, and superior mesenteric veins are patent. No abdominal aortic aneurysm. Atherosclerotic calcification of the abdominal aorta and common iliac arteries. Reproductive organs: The prostate measures 3.9 x 5.0 x 3.5 cm. Musculoskeletal and soft tissues: No aggressive osseous lesions. Degenerative changes of the spine.Unremarkable soft tissues. CT/Abdomen/Pelvis W IV Cont ONLY IMPRESSION: 1. No acute abdominopelvic pathology. 2. Hepatic steatosis. 3. Prostatomegaly. Reading Location: [id number]
--- NOTE | 2025-08-17 15:17 | EDS_ITS ---
HPI History of Present Illness Chief Complaint: Back Narrative Narrative: Patient is a 74-year-old male with past medical history of KRISTI, BPH, CHF, CAD, hypertension, asthma, patient states that he is chronically on 2 L nasal cannula, IBS, anxiety who presented to the emergency department chief complaint of back pain. Patient states that he went to bed feeling fine and then woke up this morning with right sided back pain rating to his toes he denies any specific injuries to his back recently. Patient states that he is still having bowel movements and urinating normally for himself this is unchanged. He denies any fevers or chills denies any sick contacts. He states that he is not taking his morning medication as he was unable to get up and ambulate secondary to the pain [facility] Medical History Wound of left lower extremity Hx of back injury (~04/2024) KRISTI (obstructive sleep apnea) BPH (benign prostatic hyperplasia) Venous ulcer of left leg Venous hypertension, chronic, with ulcer and inflammation Chronic venous insufficiency 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-39.9) Acute respiratory failure with hypoxia and hypercarbia Fracture, thoracic vertebra Tinea cruris History of chronic CHF Varicose veins of both legs with edema Lower extremity edema 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 disease Carotid bruit Neck pain Shortness of breath Abnormal nuclear stress test Essential hypertension Inappropriate sexual behavior Hypomagnesemia Muscle cramps Edema Chronic diastolic (congestive) heart failure Atherosclerotic heart disease of i[place]ois coronary artery without angina pectoris History of ST elevation myocardial infarction (STEMI) (07/11/17) Asthma IBS (irritable bowel syndrome) 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.9) Restless legs Hyperlipidemia Diabetes mellitus, type 2 Anxiety Home Medications ?Medication ?Instructions ?Recorded ?Last Taken ?Type metformin 1,000 mg tablet 1,000 mg PO BIDCM diabetes 0 01/17/16 01/25/24 History montelukast 10 mg tablet 10 mg PO QHS allergies 01/1612/07/18 History acetaminophen 325 mg tablet 325 - 650 mg (1 - 2 x 325 mg) PO 07/14/17 Unknown Rx Q6H PRN PRN Pain aspirin 81 mg tablet,delayed 81 mg PO DAILY@0800 #30 t abs 07/14/17 01/26/24 Rx release pramipexole 1 mg tablet 2 mg PO QHS headache 08/24/1 8 12/08/18 21:00 History coenzyme Q10 100 mg capsule 100 mg PO DAILY supplement 12/08/18 12/04/18 History magnesium oxide 400 mg PO DAILY supplement 0 12/08/18 12/08/18 08:00 History fluticasone propionate 50 1 spray intranasal DAILY PRN nasal 04/05/20 Unknown History mcg/actuation nasal spray spray,suspension nitroglycerin 0.4 mg sublingual 0.4 mg sublingual Q5M PRN Angina 11/29/21 Unknown Rx tablet pain #25 tabs vitamin B complex 1 tab PO DAILY 03/14/22 Unkn own History buspirone 10 mg tablet 20 mg PO BID Anxiety 3 Unknown History albuterol sulfate 90 mcg/actuation 2 puff inhalation Q 4H PRN 10/28/23 Unknown Rx aerosol inhaler (Ventolin HFA) shortness of breath or wheezing #18 grams clotrimazole-betamethasone 1 1 applic topical BID 4 we eks #45 11/17/23 Unknown Rx %-0.05 % topical cream grams cholecalciferol (vitamin D3) 50 2,000 unit PO DAILY phillips pplement 12/07/23 Unknown History mcg (2,000 unit) capsule omeprazole 40 mg capsule,delayed 40 mg PO BID 12/07/23 Unknown History release alprazolam 0.25 mg tablet 0.25 mg PO DAILY PRN anxiety 2 05/18/24 Unknown Rx days #7 tabs insulin lispro 100 unit/mL See Protocol subcut ACHS #0 mL 05/18/24 Unknown Rx subcutaneous pen (Humalog KwikPen (U-100) Insulin) tamsulosin 0.4 mg capsule 0.4 mg PO DAILY@1700 #0 caps 05/18/24 Unknown Rx pravastatin 40 mg tablet 40 mg PO DAILY #90 TABLETS 0 09/27/24 Unknown Rx hydroxyzine HCl 25 mg tablet 25 mg PO TID PRN anxiety #20 tabs 11/07/24 Unknown Rx carvedilol 25 mg tablet 25 mg PO BID #180 tabs 01/16 Unknown Rx isosorbide mononitrate 30 mg 30 mg PO DAILY #90 tabs 0 02/10/25 Unknown Rx tablet,extended release 24 hr furosemide 40 mg tablet 40 mg PO .COMPLEX #90 TABLET S 02/21/25 Unknown Rx glyburide 2.5 mg tablet 2.5 mg PO BID 05/03/25 Unkno wn History olanzapine 2.5 mg tablet 2.5 mg PO anxiety 06/15/25 U nknown History evolocumab 140 mg/mL subcutaneous 140 mg subcut Q2W #6 mL 07/27/25 Unknown Rx pen injector (Repatha Francescoick) metolazone 2.5 mg tablet 2.5 mg PO .COMPLEX #30 tabs 07/31/25 Unknown Rx insulin NPH isoph U-100 human 100 See Rx Instructions .Route 08/02/25 Unknown History unit/mL subcutaneous suspension .COMPLEX diabetes cyclobenzaprine 5 mg tablet 5 mg PO TID PRN muscle spa sm #10 08/17/25 Unknown Rx tabs ondansetron 4 mg disintegrating 4 mg PO Q6H PRN nausea and 08/17/25 Unknown Rx tablet vomiting #20 tabs oxycodone-acetaminophen 2.5 mg-325 1 tab PO Q6H PRN pa in 2 days #8 08/17/25 Unknown Rx mg tablet (Endocet) tabs Allergy/AdvReac Type Severity Reaction Status Date / Time Penicillins Allergy Severe Anaphylaxis Verified 08/17/25 14:59 quinine sulfate (From Quine) Allergy Severe passed out Verified 08/17/25 14:59 benzocaine (From Cetacaine) Allergy Swelling Verified 08/17/25 14:59 butamben (From Cetacaine) Allergy Swelling Verified 08/17/25 14:59 ciprofloxacin HCl (From Allergy Hives Verified 08/17/25 14:59 Cipro) clarithromycin (From Biaxin) Allergy Swelling Verified 08/17/25 14:59 exenatide (From Byetta) Allergy Rash Verified 08/17/25 14:59 folic acid (From Allergy Rash Verified 08/17/25 14:59 Proferrin-Forte) hyoscyamine sulfate (From Allergy Rash Verified 08/17/25 14:59 Levsin) iron heme polypeptide (From Allergy tongue Verified 08/17/25 14:59 Proferrin-Forte) swelling naproxen (From Naprosyn) Allergy Rash Verified 08/17/25 14:59 tetracaine (From Cetacaine) Allergy throat Verified 08/17/25 14:59 swelled shut venlafaxine HCl (From Allergy tongue Verified 08/17/25 14:59 Effexor) swelling ezetimibe (From Zetia) AdvReac Severe Myalgias, Verified 08/17/25 14:59 diarrhea mold AdvReac Severe PT UNSURE Verified 08/17/25 14:59 OF REACTION niacin (From Niaspan AdvReac Severe PT UNSURE Verified 08/17/25 14:59 Extended-Release) OF REACTION procainamide AdvReac Severe Anaphylactic/Resp. Verified 08/17/25 14:59 Distress atorvastatin calcium (From AdvReac Intermediate Mylagias Verified 08/17/25 14:59 Lipitor) levofloxacin AdvReac Intermediate Nausea and Verified 08/17/25 14:59 vomiting rosuvastatin calcium (From AdvReac Intermediate Myalgias Verified 08/17/25 14:59 Crestor) diphenhydramine HCl (From AdvReac Restlessnes Verified 08/17/25 14:59 Benadryl) s Family History Mother Diabetes Hypertension Father Hypotension Brother Hypertension HLD (hyperlipidemia) Grandmother Diabetes Grandfather CVA (cerebral vascular accident) Diabetes Brother Cancer lung Surgical History History of left knee surgery History of vasectomy History of appendectomy History of exploratory laparotomy History of cholecystectomy Stented coronary artery (~01/26/24) History of left heart catheterization (12/06/21) History of coronary artery stent placement (04/13/19) History of dental surgery Status post excision of lipoma Social History Smoking Status: Never smoker second hand exposure: No alcohol intake: never substance use type: does not use caffeine: No seatbelt use: always do you feel safe at home: Yes ROS ROS ED ROS Narrative Constitutional: Denies any fevers, chills, headaches Eyes: Denies double vision Cardiovascular: Denies chest pain Respiratory: Denies shortness of breath Abdomen: Denies abdominal pain nausea vomit diarrhea : Denies any new urinary symptoms Neurological: Denies any numbness, tingling Musculoskeletal: Complains of back pain rating down his right leg as noted above Skin: Denies any rashes or lesions EXAM Physical Exam Narrative Exam Narrative: General: Patient is lying in bed rest comfortably did not appear to be in acute distress Head: Atraumatic, normocephalic Eyes: PERRL bilaterally, EOMI bilaterally, no conjunctival injection noted Neck: Soft, supple, trachea Cardiovascular: Regular rate and rhythm no murmurs gallops rubs noted Respiratory: Clear to auscultation bilaterally no rales rhonchi or wheeze noted Abdomen: Soft, nondistended, no tenderness to palpation Musculoskeletal: No tenderness palpation of midline of the thoracic or lumbar spine, patient is tender to palpation to the right side of his lower back Extremities: +4/5 strength noted to bilateral lower extremities Neurological: Patient following commands knew that he was at [facility] years 2024 Skin: Warm, dry, tact no rashes or lesions noted Const Vital Signs: 08/17/25 14:55 Temperature 99 F Temperature Source Oral Pulse Rate 79 Respiratory Rate 16 Blood Pressure 132/68 H Blood Pressure Mean 89 Pulse Ox 100 Oxygen Delivery Method Nasal Cannula Oxygen Flow Rate (L/min) 2 MDM MDM MDM Narrative Medical decision making narrative: Patient is a 74-year-old male who presented to the emergency department chief complaint of back pain. On the differential diagnosis includes but not limited to herniated disc, compression fracture, pathological fracture, musculoskeletal strain, UTI, pyelonephritis, AAA. Once workup is obtained and reviewed he will be reevaluated. Patient given IV fluids, morphine, Zofran and cyclobenzaprine 5 mg orally Patient's BMP reviewed and showed sodium is normal 130, potassium of 4.8, creatinine was 1.10. Patient's CT ab pelvis IV contrast reviewed and showed no acute abdominal pelvic pathology. Prostamegaly noted with hepatic steatosis. Patient ambulated well here in the emergency department without difficulty. Discussed the results with the patient and free members at bedside patient would like to go home. He is advised to rotate Tylenol and ibuprofen [id number] he will be given prescriptions for cyclobenzaprine as well as Endocet and Zofran he is advised to not operate anything under the influence of these medications. He is encouraged to return with worsening symptoms or concerns. All question concerns answered is discharged home in stable condition. Lab Data Labs: Laboratory Results - last 24 hr 08/17/25 08/17/25 15:27 16:25 Sodium 138 Potassium 4.8 Chloride 97 L Carbon Dioxide 31.6 Anion Gap 9 BUN 11 Creatinine 1.10 Estim Creat Clear Calc 73.46 Est GFR (MDRD) Non-Af 71 BUN/Creatinine Ratio 10.2 Glucose 140 H Calcium 9.1 Urine Color Yellow Urine Clarity Clear Urine pH 7.0 Ur Specific [place] 1.010 Urine Protein 30 H Urine Glucose (UA) Normal Urine Ketones Negative Urine Occult Blood Negative Urine Nitrite Negative Urine Bilirubin Negative Urine Urobilinogen Normal Ur Leukocyte Esterase Negative Urine RBC 0-5 SEEN Urine WBC 0-5 SEEN Ur Squamous Epith Cells 0-5 SEEN Urine Bacteria 0 SEEN Urine Mucus 0 SEEN Radiography Diagnostic Testing: Clinical Impression(s) from Imaging Studies Abdomen/Pelvis CT 08/17/25 15:15 IMPRESSION: 1. No acute abdominopelvic pathology. 2. Hepatic steatosis. 3. Prostatomegaly. Reading Location: [facility] Discharge Plan Triage Chief Complaint: Back ED Provider: Alber Mesa Dx/Rx/DC Orders Clinical Impression: Back pain, KRISTI (obstructive sleep apnea), Essential hypertension, 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 disease, History of chronic CHF Prescriptions: New oxycodone-acetaminophen [Endocet] 2.5-325 mg tablet 1 tab PO Q6H PRN (Reason: pain) 2 Days Qty: 8 0RF ondansetron 4 mg tablet,disintegrating 4 mg PO Q6H PRN (Reason: nausea and vomiting) Qty: 20 0RF cyclobenzaprine 5 mg tablet 5 mg PO TID PRN (Reason: muscle spasm) Qty: 10 0RF No Action buspirone 10 mg tablet 20 mg PO BID vitamin B complex Tablet 1 tab PO DAILY nitroglycerin 0.4 mg tablet, sublingual 0.4 mg SUBLINGUAL Q5M PRN (Reason: Angina pain) Qty: 25 3RF omeprazole 40 mg capsule,delayed release(DR/EC) 40 mg PO BID clotrimazole-betamethasone 1-0.05 % cream 1 applic topical BID 28 Days Qty: 45 1RF glyburide 2.5 mg tablet 2.5 mg PO BID metformin 1,000 MG tablet 1,000 mg PO BIDCM montelukast 10 MG tablet 10 mg PO QHS pramipexole 1 mg tablet 2 mg PO QHS Patient Comments: 1 mg PO 2 tablets by mouth at bedtime Rx Instructions: 1 mg PO 2 tablets by mouth at bedtime fluticasone propionate 50 mcg/actuation spray,suspension 1 spray INTRANASAL DAILY PRN (Reason: nasal spray) acetaminophen 325 MG tablet 325 - 650 mg PO Q6H PRN PRN (Reason: Pain) 0RF aspirin 81 MG tablet 81 mg PO DAILY@0800 Qty: 30 0RF magnesium oxide 400 MG tablet 400 mg PO DAILY coenzyme Q10 100 MG capsule 100 mg PO DAILY cholecalciferol (vitamin D3) 50 mcg (2,000 unit) capsule 2,000 unit PO DAILY hydroxyzine HCl 25 mg tablet 25 mg PO TID PRN (Reason: anxiety) Qty: 20 0RF insulin NPH isoph U-100 human 100 unit/mL suspension See Rx Instructions .ROUTE .COMPLEX Rx Instructions: subcutaneously; 64 units in am, 56 units in hs; Hold if glucose less than 130 mg/dl insulin lispro [Humalog KwikPen Insulin] 100 unit/mL Insulin Pen See Protocol subcut ACHS Qty: 0 0RF Protocol: 4. Sliding Scale Insulin High-Med Dosing Condition: 150-199 mg/dl = 2 units Condition: 200-259 mg/dl = 4 units Condition: 260-324 mg/dl = 6 units Condition: 325-374 mg/dl = 8 units Condition: 375-409 mg/dl = 10 units Condition: 410-449 mg/dl = 11 units Condition: Greater than 449 call physician Protocol Text: Suggested for: - Patients on Total Daily Insulin Dose of 56-80 units - Patient who are known to be insulin resistant or septic HIGH MEDIUM DOSING ALGORITHM tamsulosin 0.4 mg Capsule 0.4 mg PO DAILY@1700 Qty: 0 0RF alprazolam 0.25 mg tablet 0.25 mg PO DAILY PRN (Reason: anxiety) 2 Days Qty: 7 0RF Patient Comments: for anxiety albuterol sulfate [Ventolin HFA] 90 mcg/actuation HFA aerosol inhaler 2 puff INHALATION Q4H PRN (Reason: shortness of breath or wheezing) Qty: 18 6RF pravastatin 40 mg tablet 40 mg PO DAILY Qty: 90 3RF carvedilol 25 mg tablet 25 mg PO BID Qty: 180 3RF Rx Instructions: must administer with a meal/food isosorbide mononitrate 30 mg tablet extended release 24 hr 30 mg PO DAILY Qty: 90 3RF furosemide 40 mg tablet 40 mg PO .COMPLEX Qty: 90 11RF Rx Instructions: 40 mg orally 2 tablets in the AM and 1 tablet in the afternoon; Repatha SureClick 140 mg/mL pen injector 140 mg subcut Q2W Qty: 6 3RF metolazone 2.5 mg tablet 2.5 mg PO .COMPLEX Qty: 30 3RF Rx Instructions: 2.5 mg orally Thursday and ; Primary Care Provider: Maya Pradhan Referrals: Maya Pradhan DO [Primary Care Provider, Family Practice] Activity Restrictions/Additional Instructions: Follow-up with your doctor in outpatient setting and return with worsening symptoms or any other concerns. Your CT did not show any broken bones in your back. Use prescriptions as prescribed you should also rotate Tylenol and ibuprofen [id number] for mild to moderate pain when you do this you can take something every 3 hours with a max dose of Tylenol in 24 hours 4000 mg max dose of ibuprofen in 24 hours 3200 mg. Print Language: Persian Disposition Disposition: Home, Self Care
[2025-08-17] MEDS: 0.9% Normal Saline (1000mL) 1,000 ML 999 ML IV (15:24)
[2025-08-17 16:26] LABS: BUN 11 mg/dL (4-19); BUN/Creat Ratio 10.2 RATIO (10-20); Calcium,Total 9.1 mg/dL (7.6-11.0); Chloride 97 mmol/L (98-108); Estimated Creatinine Clearance 73.46 ml/min (50-250); Glucose 140 mg/dL (70-99); Potassium 4.8 mmol/L (3.3-5.1)
[2025-08-17 16:27] LABS: Anion Gap 9 (5-15); Carbon Dioxide 31.6 mmol/L (21.0-32.0)
[2025-08-17 16:35] LABS: Mucous, Urine 0 SEEN /hpf (<or=2+)
[2025-08-17 17:19] LABS: Color, Urine Yellow (Yellow); Glucose, Dipstick Normal (Normal); Ketone-Dipstick Negative (Negative); Leukocyte Esterase-Dipstick Negative /ul (Negative); Nitrite-Dipstick Negative (Negative); Occult Blood-Urine Negative /ul (Negative); Protein-Dipstick 30 mg/dl (Negative); Specific Gravity, Urine 1.010 (1.002-1.030); Urine Bilirubin Dipstick Negative (Negative)
[2025-08-17 18:33] LABS: Red Blood Cells-Urine 0-5 SEEN /hpf (0-5); Squamous Epithelial Cells - UA 0-5 SEEN /hpf (0-5)
[2025-08-17 18:42] VITALS: BP 123/78; PULSE 83; RESP 18; TEMP 37.2; O2SAT 96
== END 2025-08-17 18:55 | disposition home or self-care (01) ==
PROVIDERS: Emergency Provider Emergency Medicine; PCP Family Medicine; Visit Provider Emergency Medicine
DX: M54.9 Dorsalgia, unspecified (principal); I50.32 Chronic diastolic (congestive) heart failure; I11.0 Hypertensive heart disease with heart failure; E11.9 Type 2 diabetes mellitus without complications; Z79.4 Long term (current) use of insulin; K76.0 Fatty (change of) liver, not elsewhere classified; I25.2 Old myocardial infarction; I87.2 Venous insufficiency (chronic) (peripheral); I25.10 Atherosclerotic heart disease of native coronary artery without angina pectoris; K58.9 Irritable bowel syndrome, unspecified; F41.9 Anxiety disorder, unspecified; E78.5 Hyperlipidemia, unspecified; E83.42 Hypomagnesemia; N40.0 Benign prostatic hyperplasia without lower urinary tract symptoms; G25.81 Restless legs syndrome; G47.33 Obstructive sleep apnea (adult) (pediatric); J45.909 Unspecified asthma, uncomplicated; Z95.5 Presence of coronary angioplasty implant and graft; Z99.81 Dependence on supplemental oxygen; Z79.84 Long term (current) use of oral hypoglycemic drugs; Z79.82 Long term (current) use of aspirin; Z79.899 Other long term (current) drug therapy
CPT/HCPCS: 74177; 80048; 81001; 96361; 96374; 96375; 99285; Q9967; A4216; J2405